=== PATIENT | female | born 1935 | race Caucasian/White ===

== ENCOUNTER 2020-10-17 11:12 | Inpatient (IN) | payer MEDICARE, OTHER ==
[~2020-10-17] VITALS: Ht 152.4 cm; Wt 65.8 kg
[2020-10-17] MEDS ORDERED: AFRIN NASAL SPR30 ML NASAL (11:20)
[2020-10-17] MEDS ORDERED: ASPIRIN81 MG ORAL (11:20)
[2020-10-17] MEDS ORDERED: COLACE100 MG ORAL (11:20)
--- NOTE | 2020-10-17 11:20 | Emergency Room Report ---
History of Present Illness General Chief Complaint: General Complaint Source: Medical Record, EMS Present Illness HPI Disclaimer: Please note that this report is being documented using DRAGON technology. This can lead to erroneous entry secondary to incorrect interpretation by the dictating instrument. HPI: 85-year-old Slovak speaking female history of NSTEMI, CHF, COVID-19 positive currently on 4 L oxygen, atrial fibrillation presents for bradycardia and anemia. Sent in by PMD. Reportedly had heart rate in the 50s at nursing facility. Tested Covid positive several weeks ago. Receiving antibiotics. Stable on 4 L oxygen. No apparent discomfort. There is report that the patient was anemic. 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 EOMI. Cardiovascular: Irregularly irregular rhythm. Normal heart rate Resp: Normal work of breathing. No cough, wheezing or crackles appreciated Abdomen: Abdomen is soft, nondistended. Nontender Skin: Intact. No abrasions, laceration or rash over the exposed skin MSK: Normal tone and bulk. Moving all extremities. No obvious deformity. Neuro: Awake and alert. Mentating appropriately. Procedures Critical Care Time Critical Care Time Total critical care time: Approximately 45 minutes Due to a high probability of clinically significant, life threatening deterio ration, the patient required the highest level of preparedness to intervene emergently and I personally spent this critical care time directly and personally managing the patient. This critical care time included obtaining a history, examining the patient, pulse oximetry, ordering and reviewing studies, ordering treatments, evaluating response to treatment and updating management p stacie as needed, frequent reassessment and discussion with other providers as well as arranging for ultimate disposition. This critical to care time was performed to assess and manage the high probability of life-threatening deterioration that could result in multiorgan failure. This critical care time is separate from the separately billable procedures and treating other patients. Medical Decision Making Diagnostic Impression: Primary Impression: Anemia Additional Impressions: Atrial fibrillation Elevated troponin Hyperkalemia Acute kidney injury ER Course Is an 85-year-old female from nursing facility recently COVID-19 positive with history of atrial fibrillation, COPD, CHF, hypertension presenting for bradycardia and reported anemia. Arrives in stable condition. Heart rate is in fact elevated mildly not bradycardic. EKG shows atrial fibrillation with long pauses. Chest x-ray shows cardiomegaly and signs of vascular congestion either atelectasis or early infiltrate in the lower lobes according to radiology interpretation. Patient was positive for COVID-19 and already receiving antibiotics. Potassium slightly elevated, renal function reduced but unknown baseline. Troponin elevated. Patient given aspirin, calcium, insulin with dextrose. Will admit to PMD, Dr. Dumont. Laboratory Tests Test 10/17/20 13:10 White Blood Count 7.7 K/UL (4.8-10.8) Red Blood Count 2.73 M/UL (4.20-5.40) L Hemoglobin 8.1 G/DL (12.0-16.0) L Hematocrit 26.8 % (37.0-47.0) L Mean Corpuscular Volume 98 FL (80-99) Mean Corpuscular Hemoglobin 29.8 PG (27.0-31.0) Mean Corpuscular Hemoglobin Concent 30.4 G/DL (32.0-36.0) L Red Cell Distribution Width 18.6 % (11.6-14.8) H Platelet Count 143 K/UL (150-450) L Mean Platelet Volume 8.9 FL (6.5-10.1) Neutrophils (%) (Auto) % (45.0-75.0) Lymphocytes (%) (Auto) % (20.0-45.0) Monocytes (%) (Auto) % (1.0-10.0) Eosinophils (%) (Auto) % (0.0-3.0) Basophils (%) (Auto) % (0.0-2.0) Neutrophils % (Manual) Pending Lymphocytes % (Manual) Pending Platelet Estimate Pending Platelet Morphology Pending Prothrombin Time 11.7 SEC (9.30-11.50) H Prothrombin Time INR 1.1 (0.9-1.1) Activated Partial Thromboplast Time 28 SEC (23-33) Sodium Level 138 MMOL/L (136-145) Potassium Level 5.2 MMOL/L (3.5-5.1) H Chloride Level 101 MMOL/L (98-107) Carbon Dioxide Level 35 MMOL/L (21-32) H Anion Gap 2 mmol/L (5-15) L Blood Urea Nitrogen 41 mg/dL (7-18) H Creatinine 1.7 MG/DL (0.55-1.30) H Estimated Glomerular Filtration Rate 28.7 mL/min (>60) Glucose Level 89 MG/DL (74-106) Calcium Level 8.2 MG/DL (8.5-10.1) L Phosphorus Level 3.1 MG/DL (2.5-4.9) Magnesium Level 2.4 MG/DL (1.8-2.4) Total Bilirubin 1.0 MG/DL (0.2-1.0) Aspartate Amino Transferase (AST) 17 U/L (15-37) Alanine Aminotransferase (ALT) 11 U/L (12-78) L Alkaline Phosphatase 53 U/L (46-116) Troponin I 0.181 ng/mL (0.000-0.056) Total Protein 5.4 G/DL (6.4-8.2) L Albumin 2.3 G/DL (3.4-5.0) L Globulin 3.1 g/dL Albumin/Globulin Ratio 0.7 (1.0-2.7) L EKG Diagnostic Results Troponin ordered: Yes When was troponin ordered?: Oct 17, 2020 EKG Time: 11:18 Rate: normal Rhythm: NSR ST Segments: no acute changes Other Impression Irregularly irregular rhythm consistent with atrial fibrillation. Long pauses noted. Rhythm Strip Diag. Results Rhythm Strip Time: 11:18 EP Interpretation: yes Rate: 100 Rhythm: NSR, no PVC's, no ectopy Chest X-Ray Diagnostic Results Chest X-Ray Diagnostic Results : Chest X-Ray Ordered: Yes # of Views/Limited/Complete: 1 View Indication: Other - Bradycardia EP Interpretation: Yes Interpretation: no consolidation, no pneumothorax, other - Cardiomegaly, vascular congestion Impression: Other - Cardiomegaly Electronically Signed by: Electronically signed by Dr. Harrison Boykin MD Last Vital Signs Date Time Temp Pulse Resp B/P (MAP) Pulse Ox O2 Delivery O2 Flow Rate FiO2 10/17/20 11:05 98.1 57 18 118/78 (91) 98 Nasal Cannula 2.0 Disposition: ADMITTED INPATIENT Condition: Serious Harrison Boykin MD Oct 17, 2020 11:20
[2020-10-17] MEDS ORDERED: FUROSEMIDE20 M1 ORAL (11:25)
[2020-10-17] MEDS ORDERED: FAMOTIDINE20 MG ORAL (11:25)
[2020-10-17] MEDS ORDERED: LOVENOX10 MG SUBQ (11:25)
[2020-10-17] MEDS ORDERED: NIACIN500 M3 PO (11:25)
[2020-10-17] MEDS ORDERED: FLUCONAZOLE100 MG ORAL (11:25)
[2020-10-17] MEDS ORDERED: FERROUS SULFAT325 MG ORAL (11:25)
[2020-10-17] MEDS ORDERED: COREG25 MG ORAL (11:25)
[2020-10-17] MEDS ORDERED: ACTOS45 MG ORAL (11:29)
[2020-10-17] MEDS ORDERED: VIBRAMYCIN100 MG ORAL (11:29)
[2020-10-17] MEDS ORDERED: DIOVAN HCT 80MG1 TAB ORAL (11:29)
[2020-10-17] MEDS ORDERED: VANCOMYCIN750 MG/150 IV (11:29)
[2020-10-17] MEDS ORDERED: ACETAMINOPHEN325 M1 ORAL (11:29)
[2020-10-17 11:37] VITALS: BP 103/49
--- NOTE | 2020-10-17 12:08 | NUR ---
pt arrived from snf, covid +, for bradycardia. pt placed on continuous cardiac/O2 monitor. IV placed. unable to draw blood. phlebotomy notified. lab attemtped to draw blood. unsuccessful 3 attempts. RN went in to draw labs. pt abusive, hitting RN. refusal to keep mask on in room.
--- NOTE | 2020-10-17 12:38 | Diagnostic Imaging Report ---
EXAM: XR Chest, 1 View CLINICAL HISTORY: Shortness of breath TECHNIQUE: Frontal view of the chest. COMPARISON: No relevant prior studies available. FINDINGS: Lungs: Subsegmental atelectasis versus infiltrate in the left lung base. Pulmonary vascular congestion. Pleural space: Small left pleural effusion. Heart: Cardiomegaly. Mediastinum: Unremarkable. Bones/joints: Multilevel degenerative disc space loss and endplate osteophytes throughout the visualized spine. Vasculature: Atherosclerotic calcifications within the aortic arch. Tubes, lines and devices: Telemetry leads overlie the thorax. IMPRESSION: 1. Findings suggest mild CHF, with cardiomegaly, pulmonary vascular congestion, and a small left pleural effusion. 2. Subsegmental atelectasis versus infiltrate in the left lung base.
[2020-10-17 13:17] VITALS: BP 107/56
--- NOTE | 2020-10-17 13:17 | NUR ---
pt refusing to keep nasal cannula on face. pt refusing to wear mask. MD gianluca FIELDS. blood drawn. sent to lab
[2020-10-17 13:24] LABS: HEMATOCRIT 26.8 % (37.0-47.0); HEMOGLOBIN 8.1 G/DL (12.0-16.0); MEAN CORPUSCULAR VOLUME 98 FL (80-99); PLATELET COUNT 143 K/UL (150-450); RED BLOOD COUNT 2.73 M/UL (4.20-5.40); RED CELL DISTRIBUTION WIDTH 18.6 % (11.6-14.8); WHITE BLOOD COUNT 7.7 K/UL (4.8-10.8)
[2020-10-17 13:34] LABS: CALCIUM 8.2 MG/DL (8.5-10.1); CREATININE 1.7 MG/DL (0.55-1.30); POTASSIUM 5.2 MMOL/L (3.5-5.1)
[2020-10-17 13:38] LABS: ALBUMIN 2.3 G/DL (3.4-5.0); ALBUMIN/GLOBULIN RATIO 0.7 (1.0-2.7); INR 1.1 (0.9-1.1); PHOSPHORUS 3.1 MG/DL (2.5-4.9)
[2020-10-17] MEDS ORDERED: Aspirin Baby 81mg ORAL ONE (14:15)
[2020-10-17] MEDS ORDERED: Calcium Gluconate 1gm/10ml vial IVP ONE (14:15)
[2020-10-17] MEDS ORDERED: Insulin Human Regular 100units/ml 3ml IV ONE (14:15)
--- NOTE | 2020-10-17 15:31 | NUR ---
Prasanna lewis in ED - 10/17/20 at 1532 by BERENICE MRSA/VRE/COVID swab sent. called report to SERGIO Knight.
--- NOTE | 2020-10-17 16:30 | NUR ---
NURSE NOTES: pt arrived to unit in good condition V/S. 97.5, bp120/50 hr 80 R20 o2 100 on 4L NC. retested Bs because she had received insulin in ED BS was 70 tried to feed pt juice hot tea, apple sauce regular food pt kept spitting food out.
--- NOTE | 2020-10-17 16:36 | NUR ---
ED Nurse Note: called report to RN for 220
--- NOTE | 2020-10-17 16:37 | NUR ---
ED Nurse Note: pt has pink on coccyx area. picture taken. uploaded to pt profile.
[2020-10-17 16:39] VITALS: BP 111/54
--- NOTE | 2020-10-17 16:42 | NUR ---
mrsa vre swab snet. med rec done
--- NOTE | 2020-10-17 16:51 | NUR ---
report to jabier caba.
[2020-10-17] MEDS ORDERED: Acetaminophen 500mg (ES) tab ORAL PRN (18:00)
[2020-10-17] MEDS: D5 1/2NS 1,000 ML IV SCH (19:03)
--- NOTE | 2020-10-17 19:13 | Consultation ---
Consult Note Consult Note asked to eval at the request of Dr Arango for renal failure and fluid and electrolyte management HPI: 85-year-old Kuwaiti speaking female history of NSTEMI, CHF, COVID-19 positive currently on 4 L oxygen, atrial fibrillation presents for bradycardia and anemia. Sent in by PMD. Reportedly had heart rate in the 50s at nursing facility. Tested Covid positive several weeks ago. Receiving antibiotics. Stable on 4 L oxygen. No apparent discomfort. There is report that the patient was anemic. 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 GENERAL APPEARANCE: Seems to be well developed. HEAD AND NECK: Has dry mouth. HEART: Normal rate. Irregular rhythm LUNGS: Clear. Decreased breath sound over the bases ABDOMEN: Soft. EXTREMITIES: Has trace edema of legs. LABORATORY AND DIAGNOSTIC DATA: WBC 6.5, hemoglobin 9.7, hematocrit 31.9, and platelets is 134. Sodium 137, potassium 4.8, chloride 102, bicarb 36, BUN 41, creatinine 2, glucose 103. BNP more than 35,000. Troponin was elevated at 0.218. Chest x-ray, mild CHF, cardiomegaly, pulmonary vascular congestion, atelectasis versus infiltrate in left lung base. 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 . Assessment/Plan Acute kidney injury Elevated troponin Hyperkalemia Anemia Atrial fibrillation Monitor renal parameters Slow hydration Continue per cardiology Anemia work-up Monitor electrolytes Per orders Dustin Gómez MD Oct 17, 2020 19:13
--- NOTE | 2020-10-17 19:30 | NUR ---
NURSE NOTES: Receive a report from SERGIO Killian. Round is made. Pt is awake but confused. No acute distress noted. No SOB/wheezing noted. O2 NC is not staying on her nares d/t taking out. On bed bound. IV is running via right upper arm fluid running as ordered. AM shift nurse will order for KURT mattress. Call light within reach. Will continue to monitor.
[2020-10-17 20:00] VITALS: BP 130/64
--- NOTE | 2020-10-17 20:00 | NUR ---
NURSE NOTES: Receive a call from lab that Troponin level is 0.218. Inform Dr. Reyes of lab result and EKG from ED.
--- NOTE | 2020-10-17 20:30 | NUR ---
NURSE HAND-OFF REPORT: Important Events on Shift:[]pt had hypoglycemic episode of B/S 69 gave one dose of dextrose B/s after 15min 107. pt on D1/2 ns at 50ml. Pt does not want to eat. Patient Status: []full Diet: []puree regular Pending Orders: []ekg, urine sample, Pending Results/Labs:[] Pending MD notification:[] Latest Vital Signs: Temperature 98.1 , Pulse 104 , B/P 111 /54 , Respiratory Rate 20 , O2 SAT 100 , Nasal Cannula, O2 Flow Rate 4.0 . Vital Sign Comment: [] EKG Rhythm: sinus with irregular rhythm Rhythm change?: MD Notified?: - MD Response: Latest Elizabeth Fall Score: Fall Risk: Y Safety Measures: Call light , Bed Alarm , Side Rails , Bed position . Fall Precautions: Y Report given to []. OH/RN
--- NOTE | 2020-10-17 21:15 | NUR ---
NURSE NOTES: Notify Dr. Dumont for pt's bladder incontinent and In and out straight catheterization to collect for urine labs including elevated Troponin level. Receive to place rothman catheterization. Order noted and carried out.
--- NOTE | 2020-10-17 21:23 | NUR ---
NURSE HAND-OFF REPORT: Important Events on Shift:[]pt not eating , npo, on d5 1/2 ns at 50ml Patient Status: [] Diet: [] Pending Orders: [] Pending Results/Labs:[] Pending MD notification:[] Latest Vital Signs: Temperature 97.9 , Pulse 77 , B/P 130 /64 , Respiratory Rate 20 , O2 SAT 98 , Nasal Cannula, O2 Flow Rate 4.0 . Vital Sign Comment: [] EKG Rhythm: sinus with irregular rhythm Rhythm change?: MD Notified?: - MD Response: Latest Elizabeth Fall Score: 70 Fall Risk: High Risk Safety Measures: Call light Within Reach, Bed Alarm Zone 2, Side Rails Side Rails x2, Bed position Low and Locked. Fall Precautions: Yellow Socks Yellow Gown Door Sign Patient Fall Education Report given to [].
--- NOTE | 2020-10-17 21:25 | NUR ---
NURSE HAND-OFF REPORT: Important Events on Shift:[]npo , running d5ns @50ml/hr, pt has wounds Patient Status: []full Diet: []npo Pending Orders: [] lot fo labs pending for am 10/18 Pending Results/Labs:[] Pending MD notification:[] Latest Vital Signs: Temperature 97.9 , Pulse 77 , B/P 130 /64 , Respiratory Rate 20 , O2 SAT 98 , Nasal Cannula, O2 Flow Rate 4.0 . Vital Sign Comment: [] EKG Rhythm: sinus with irregular rhythm Rhythm change?: MD Notified?: - MD Response: Latest Elizabeth Fall Score: 70 Fall Risk: High Risk Safety Measures: Call light Within Reach, Bed Alarm Zone 2, Side Rails Side Rails x2, Bed position Low and Locked. Fall Precautions: y Yellow Socks y Yellow Gown y Door Sign y Patient Fall Education Report given to []. OH/RN
--- NOTE | 2020-10-17 23:55 | NUR ---
NURSE NOTES: Receive an order from Dr. Reyes for Troponin lab in the morning. Order has been placed. Will carried out and monitor.
[2020-10-18] VITALS: BP 130/85
[2020-10-18 00:17] LABS: APPEARANCE,URINE VERY CLOUDY; BILIRUBIN, URINE NEGATIVE (NEGATIVE); COLOR,URINE YELLOW; GLUCOSE, URINE (UA) NEGATIVE (NEGATIVE); KETONES,URINE NEGATIVE (NEGATIVE); LEUKOCYTE ESTERASE ,URINE 3+ (NEGATIVE); NITRITE,URINE NEGATIVE (NEGATIVE); PH,URINE 5 (4.5-8.0); PROTEIN,URINE 2+ (NEGATIVE); UROBILINOGEN,URINE NORMAL MG/DL (0.0-1.0)
[2020-10-18 04:00] VITALS: BP 97/53
--- NOTE | 2020-10-18 06:35 | Consultation ---
History of Present Illness General Chief Complaint: General Complaint Present Illness Allergies: Coded Allergies: No Known Allergies (Unverified , 10/17/20) Medication History Scheduled Aspirin* (Aspirin*), 81 MG ORAL DAILY, (Reported) Carvedilol (Coreg), 25 MG ORAL EVERY 12 HOURS, (Reported) Docusate Sodium* (Colace*), 100 MG ORAL DAILY, (Reported) Doxycycline Hyclate* (Vibramycin*), 100 MG ORAL EVERY 12 HOURS, (Reported) Enoxaparin* (Lovenox*), 30 MG SUBQ DAILY, (Reported) Famotidine* (Pepcid 20mg tablet*), 20 MG ORAL DAILY, (Reported) Ferrous Sulfate* (Ferrous Sulfate*), 325 MG ORAL DAILY, (Reported) Fluconazole (Fluconazole), 100 MG ORAL DAILY, (Reported) Furosemide* (Lasix*), 20 MG ORAL DAILY, (Reported) Oxymetazoline HCl (Afrin), 2 SPRAY NASAL EVERY 8 HOURS, (Reported) Pioglitazone Hcl* (Actos*), 45 MG ORAL DAILY, (Reported) Valsartan (Diovan), 1 TAB ORAL DAILY, (Reported) Scheduled PRN Acetaminophen* (Acetaminophen 325MG Tablet*), 650 MG ORAL Q4H PRN for Pain Scale (6-10), (Reported) Miscellaneous Medications Niacin (Niacin), 500 MG PO, (Reported) Vancomycin In Dextrose,Iso-Osm (Vancomycin 750 Mg/150 Ml Bag), 1,000 MG IV, (Reported) Patient History Healthcare decision maker Resuscitation status Advanced Directive on File Physical Exam Last 24 Hour Vital Signs Date Time Temp Pulse Resp B/P (MAP) Pulse Ox O2 Delivery O2 Flow Rate FiO2 10/18/20 04:00 97.9 69 18 97/53 (68) 99 10/18/20 04:00 67 10/18/20 00:00 97.9 66 20 130/85 (100) 98 10/18/20 00:00 79 10/17/20 21:00 Nasal Cannula 4.0 10/17/20 20:00 84 10/17/20 20:00 97.9 77 20 130/64 (86) 98 10/17/20 18:12 Nasal Cannula 4.0 10/17/20 17:03 98.1 104 20 111/54 100 Nasal Cannula 4.0 100 10/17/20 16:39 104 20 111/54 100 Nasal Cannula 4.0 10/17/20 15:33 86 25 97 Nasal Cannula 4.0 10/17/20 13:17 106 18 107/56 97 Nasal Cannula 4.0 10/17/20 11:37 98 28 103/49 100 Nasal Cannula 4.0 10/17/20 11:37 83 25 Nasal Cannula 4.0 100 10/17/20 11:05 98.1 57 18 118/78 (91) 98 Nasal Cannula 2.0 Intake and Output 10/17/20 10/18/20 19:00 07:00 Intake Total 50 ml 100 ml Output Total 100 ml Balance 50 ml 0 ml Intake Oral 50 ml IV Total 100 ml Output Urine Total 100 ml Laboratory Tests Test 10/17/20 13:10 10/17/20 16:39 10/17/20 17:24 10/17/20 18:20 White Blood Count 7.7 K/UL (4.8-10.8) Red Blood Count 2.73 M/UL (4.20-5.40) L Hemoglobin 8.1 G/DL (12.0-16.0) L Hematocrit 26.8 % (37.0-47.0) L Mean Corpuscular Volume 98 FL (80-99) Mean Corpuscular Hemoglobin 29.8 PG (27.0-31.0) Mean Corpuscular Hemoglobin Concent 30.4 G/DL (32.0-36.0) L Red Cell Distribution Width 18.6 % (11.6-14.8) H Platelet Count 143 K/UL (150-450) L Mean Platelet Volume 8.9 FL (6.5-10.1) Neutrophils (%) (Auto) % (45.0-75.0) Lymphocytes (%) (Auto) % (20.0-45.0) Monocytes (%) (Auto) % (1.0-10.0) Eosinophils (%) (Auto) % (0.0-3.0) Basophils (%) (Auto) % (0.0-2.0) Differential Total Cells Counted 100 Neutrophils % (Manual) 84 % (45-75) H Lymphocytes % (Manual) 12 % (20-45) L Monocytes % (Manual) 2 % (1-10) Eosinophils % (Manual) 0 % (0-3) Basophils % (Manual) 0 % (0-2) Band Neutrophils 2 % (0-8) Platelet Estimate Decreased L Platelet Morphology Normal Hypochromasia 1+ Anisocytosis 1+ Prothrombin Time 11.7 SEC (9.30-11.50) H Prothromb Time International Ratio 1.1 (0.9-1.1) Activated Partial Thromboplast Time 28 SEC (23-33) Sodium Level 138 MMOL/L (136-145) Potassium Level 5.2 MMOL/L (3.5-5.1) H Chloride Level 101 MMOL/L (98-107) Carbon Dioxide Level 35 MMOL/L (21-32) H Anion Gap 2 mmol/L (5-15) L Blood Urea Nitrogen 41 mg/dL (7-18) H Creatinine 1.7 MG/DL (0.55-1.30) H Estimat Glomerular Filtration Rate 28.7 mL/min (>60) Glucose Level 89 MG/DL (74-106) Calcium Level 8.2 MG/DL (8.5-10.1) L Phosphorus Level 3.1 MG/DL (2.5-4.9) Magnesium Level 2.4 MG/DL (1.8-2.4) Total Bilirubin 1.0 MG/DL (0.2-1.0) Aspartate Amino Transf (AST/SGOT) 17 U/L (15-37) Alanine Aminotransferase (ALT/SGPT) 11 U/L (12-78) L Alkaline Phosphatase 53 U/L (46-116) Troponin I 0.181 ng/mL (0.000-0.056) Total Protein 5.4 G/DL (6.4-8.2) L Albumin 2.3 G/DL (3.4-5.0) L Globulin 3.1 g/dL Albumin/Globulin Ratio 0.7 (1.0-2.7) L POC Whole Blood Glucose 92 MG/DL (74-106) Pending Pending Test 10/17/20 19:06 10/17/20 19:15 10/17/20 21:58 10/17/20 23:00 POC Whole Blood Glucose Pending 107 MG/DL (74-106) H Troponin I 0.218 ng/mL (0.000-0.056) Urine Color Yellow Urine Appearance Very cloudy Urine pH 5 (4.5-8.0) Urine Specific [place] 1.015 (1.005-1.035) Urine Protein 2+ (NEGATIVE) H Urine Glucose (UA) Negative (NEGATIVE) Urine Ketones Negative (NEGATIVE) Urine Blood 4+ (NEGATIVE) H Urine Nitrite Negative (NEGATIVE) Urine Bilirubin Negative (NEGATIVE) Urine Urobilinogen Normal MG/DL (0.0-1.0) Urine Leukocyte Esterase 3+ (NEGATIVE) H Urine RBC 40-60 /HPF (0 - 2) H Urine WBC Tntc /HPF (0 - 2) H Urine Squamous Epithelial Cells Moderate /LPF (NONE/OCC) H Urine Amorphous Sediment Moderate /LPF (NONE) H Urine Bacteria Many /HPF (NONE) H Urine Yeast Moderate /HPF (NONE) H Urine Random Sodium 18 mmol/L (20-110) L Microbiology Date/Time Source Procedure Growth Status 10/17/20 23:00 Urine,Clean Catch Urine Culture - Preliminary NO GROWTH Resulted Height (Feet): 5 Weight (Pounds): 145 Medications Current Medications Medications (Trade) Dose Ordered Sig/Yolanda Route PRN Reason Start Time Stop Time Status Last Admin Dose Admin Acetaminophen (Tylenol) 500 mg Q6HR PRN ORAL Mild Pain 1-3 10/17/20 17:45 11/16/20 17:44 Acetaminophen (Tylenol) 500 mg Q6HR PRN ORAL fever >100 10/17/20 18:00 11/16/20 17:59 Acetaminophen (Tylenol) 650 mg Q4H PRN ORAL Pain Scale (6-10) 10/17/20 19:15 11/16/20 19:14 Chlorhexidine Gluconate (Eve-Hex 2%) 1 applic QHS TOPIC 10/18/20 20:00 01/16/21 19:59 Dextrose/Sodium Chloride 1,000 ml @ 50 mls/hr Q20H IV 10/17/20 18:45 11/16/20 18:44 10/17/20 19:03 Docusate Sodium (Colace) 100 mg TID ORAL 10/18/20 09:00 11/17/20 08:59 Famotidine (Pepcid) 20 mg DAILY ORAL 10/18/20 09:00 01/16/21 08:59 Ondansetron HCl (Zofran) 4 mg Q6H PRN IVP Nausea & Vomiting 10/17/20 21:15 11/16/20 21:14 Assessment/Plan Assessment/Plan: Hematology Consultation REQ : Neri Arango RFC: Anemia eval HPI: 85-year-old Cook Islander speaking female history of NSTEMI, CHF, COVID-19 positive currently on 4 L oxygen, atrial fibrillation presents for bradycardia and anemia. Sent in by PMD. Reportedly had heart rate in the 50s at nursing facility. Tested Covid positive several weeks ago. Receiving antibiotics. Stable on 4 L oxygen. No apparent discomfort. There is report that the patient was anemic. 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 EOMI. Cardiovascular: Irregularly irregular rhythm. Normal heart rate Resp: Normal work of breathing. No cough, wheezing or crackles appreciated Abdomen: Abdomen is soft, nondistended. Nontender Skin: Intact. No abrasions, laceration or rash over the exposed skin MSK: Normal tone and bulk. Moving all extremities. No obvious deformity. Neuro: Awake and alert. Mentating appropriately. Labs: noted Imaging: reviewed Assessment and recs # Anemia r/o gi bleed --> anemia panel has been ordered --> hgb 8.1 --> no hemolysis is noted --> transfuse on prn basis # Hypercoag disorder with Atrial fibrillation --> consider anticoag as per cards --> if bleeding, consider hold anticoag # Elevated trop --> per cards # Hyperkalemia --> per renal # Acute kidney injury --> per renal # Recently COVID-19 positive # Dvt ppx scds Appreciate consultation and dw Hawk Hayward MD Oct 18, 2020 06:35
--- NOTE | 2020-10-18 06:49 | NUR ---
NURSE HAND-OFF REPORT: Important Events on Shift: Insertion rothman catheter. No acute distress noted. Patient Status: [] Diet: [NPO] Pending Orders: [stool OB] Pending Results/Labs:[] Pending MD notification:[low urine output] Latest Vital Signs: Temperature 97.9 , Pulse 69 , B/P 97 /53 , Respiratory Rate 18 , O2 SAT 99 , Nasal Cannula, O2 Flow Rate 4.0 . Vital Sign Comment: [] EKG Rhythm: A-f and A-F Rhythm change?: N MD Notified?: - MD Response: Latest Elizabeth Fall Score: 70 Fall Risk: High Risk Safety Measures: Call light Within Reach, Bed Alarm Zone 1, Side Rails Side Rails x3, Bed position Low and Locked. Fall Precautions: Yellow Socks Patient Fall Education
--- NOTE | 2020-10-18 07:30 | NUR ---
NURSE NOTES: Given report to SERGIO Killian. Round is made.
[2020-10-18 08:00] VITALS: BP 106/39
--- NOTE | 2020-10-18 08:11 | NUR ---
NURSE NOTES: pt confused AOx1, resting in bed, opens eyes when you talk to her. Pt on cafeteria monitor no signs of cardia or respiratory distress. Pt urinary output is very low 100ml after Green was placed yesterday. Pt BS 93 this morning. Blood pressure is low see am VS. Bed locked and in lowest position. Call light within reach. Will continue to monitor. Pt is NPO now.
[2020-10-18 08:29] LABS: HEMATOCRIT 24.1 % (37.0-47.0); HEMOGLOBIN 7.3 G/DL (12.0-16.0); MEAN CORPUSCULAR VOLUME 99 FL (80-99); PLATELET COUNT 124 K/UL (150-450); RED BLOOD COUNT 2.44 M/UL (4.20-5.40); RED CELL DISTRIBUTION WIDTH 18.6 % (11.6-14.8); WHITE BLOOD COUNT 4.9 K/UL (4.8-10.8)
--- NOTE | 2020-10-18 08:44 | Consultation ---
DATE OF CONSULTATION: 10/18/2020 PULMONARY CONSULTATION HISTORY OF PRESENT ILLNESS: This is an 85-year-old female with history of CAD, CHF who was sent in by primary care physician because of bradycardia. The patient is known to be COVID positive, however, she is saturating well on nasal oxygen. She tested COVID positive about two weeks ago. The patient was bradycardic in the ER and admitted to the hospital for subsequent management and care. MEDICATIONS: List of medications at this time include Pepcid, Zofran, and currently she is on IV fluids. PAST MEDICAL HISTORY: Notable for CHF, CAD, previous non-STEMI, COPD, atrial fibrillation, recent COVID-19 pneumonia. REVIEW OF SYSTEMS: Not reliable. PAST SURGICAL HISTORY: None reported. Code status full. PHYSICAL EXAMINATION: GENERAL: Reveals a 85-year-old female. VITAL SIGNS: Blood pressure is 130/80, heart rate 66, respirations are 20, O2 saturation 98% on 4 liters of oxygen. HEENT: Unremarkable. LUNGS: Clear breath sounds bilaterally. ABDOMEN: Soft. EXTREMITIES: There is no edema. NEUROLOGIC: Nonfocal. LABORATORY DATA: Lab testing shows hemoglobin 8.1. Troponin 0.21, previously was 0.18. Creatinine 1.7, potassium 5.2. Albumin is 2.3. Urinalysis shows too numerous to count wbc's. IMAGING STUDIES: X-ray chest was obtained, which showed evidence for mild CHF and atelectasis. IMPRESSION: 1. CHF, mild. 2. CAD/previous non-STEMI. 3. long term resident. 4. Bradycardia. 5. Atrial fibrillation. 6. Renal insufficiency. 7. Troponin leak. 8. COVID pneumonia. 9. Hypoxemia. DISCUSSION: Agree with admission and care. Currently, she is hypoxemic, however, she tested positive for COVID-19 more than two weeks ago. We will hold off any specific therapies. I will start her on Lovenox subcutaneous for DVT prophylaxis. Cardiac care per Cardiology. Consider transfusion, defer to Hematology. Renal function abnormal abnormalities noted. Nephrology is following. We will provide oxygen as needed. Carlos Woods M.D. DR: Luis Armando JOB#: [id number] CC:
[2020-10-18] MEDS: Enoxaparin 40mg Inj SUBQ SCH (09:00)
[2020-10-18 09:02] LABS: CREATINE KINASE 22 U/L (26-308); GAMMA GLUTAMYL TRANSPEPTIDASE 19 U/L (5-85); PHOSPHORUS 3.5 MG/DL (2.5-4.9)
[2020-10-18 09:09] LABS: ALANINE AMINOTRANSFERASE 10 U/L (12-78); ALBUMIN/GLOBULIN RATIO 0.7 (1.0-2.7); ALKALINE PHOSPHATASE 45 U/L (46-116); ASPARTATE AMINO TRANSFERASE 14 U/L (15-37); BILIRUBIN,TOTAL 0.7 MG/DL (0.2-1.0); BLOOD UREA NITROGEN 41 mg/dL (7-18); CARBON DIOXIDE 36 MMOL/L (21-32); CHLORIDE 102 MMOL/L (98-107); CHOLESTEROL 98 MG/DL (< 200); FERRITIN 166 NG/ML (8-388); HDL CHOLESTEROL 36 MG/DL (40-60); POTASSIUM 4.8 MMOL/L (3.5-5.1); SODIUM 137 MMOL/L (136-145); TRIGLYCERIDES 102 MG/DL (30-150)
[2020-10-18 09:44] LABS: % IRON SATURATION 25 % (15-50); IRON 40 ug/dL (50-175); TOTAL IRON BINDING CAPACITY 160 ug/dL (250-450)
[2020-10-18] MEDS: Docusate 100mg cap ORAL SCH ×3 (10:16→18:00)
[2020-10-18 12:00] VITALS: BP 89/38
--- NOTE | 2020-10-18 13:00 | Consultation ---
History of Present Illness General Date patient seen: Oct 18, 2020 Reason for Hospitalization: General Complaint Present Illness HPI HPI: 85-year-old Thai speaking female history of NSTEMI, CHF, COVID-19 positive currently on 4 L oxygen, atrial fibrillation presents for bradycardia and anemia. Sent in by PMD. Reportedly had heart rate in the 50s at nursing facility. Tested Covid positive several weeks ago. Receiving antibiotics. Stable on 4 L oxygen. No apparent discomfort. There is report that the patient was anemic. No recent labs in the documentation that is provided by EMS. On admission identified to have decubitus ulcers malnutrition abnormal labs surgery called to eval and assist with care. Imaging reviewed labs reviewed exam performed. Care plan initiated. PMH: COPD, atrial fibrillation, heart disease, CHF, COVID-19 PSH: Unable to obtain from patient Allergies: None listed in chart Social Hx: Unable to obtain from patient Allergies: Coded Allergies: No Known Allergies (Unverified , 10/17/20) COVID-19 Screening Contact w/high risk pt: Yes Experienced COVID-19 symptoms?: Yes Coronavirus symptoms experienc: Shortness of Breath, Nausea/Vomiting Medication History Scheduled Aspirin* (Aspirin*), 81 MG ORAL DAILY, (Reported) Carvedilol (Coreg), 25 MG ORAL EVERY 12 HOURS, (Reported) Docusate Sodium* (Colace*), 100 MG ORAL DAILY, (Reported) Doxycycline Hyclate* (Vibramycin*), 100 MG ORAL EVERY 12 HOURS, (Reported) Enoxaparin* (Lovenox*), 30 MG SUBQ DAILY, (Reported) Famotidine* (Pepcid 20mg tablet*), 20 MG ORAL DAILY, (Reported) Ferrous Sulfate* (Ferrous Sulfate*), 325 MG ORAL DAILY, (Reported) Fluconazole (Fluconazole), 100 MG ORAL DAILY, (Reported) Furosemide* (Lasix*), 20 MG ORAL DAILY, (Reported) Oxymetazoline HCl (Afrin), 2 SPRAY NASAL EVERY 8 HOURS, (Reported) Pioglitazone Hcl* (Actos*), 45 MG ORAL DAILY, (Reported) Valsartan (Diovan), 1 TAB ORAL DAILY, (Reported) Scheduled PRN Acetaminophen* (Acetaminophen 325MG Tablet*), 650 MG ORAL Q4H PRN for Pain Scale (6-10), (Reported) Miscellaneous Medications Niacin (Niacin), 500 MG PO, (Reported) Vancomycin In Dextrose,Iso-Osm (Vancomycin 750 Mg/150 Ml Bag), 1,000 MG IV, (Reported) Patient History Limited by: medical condition History Provided By: Medical Record, PMD Healthcare decision maker Resuscitation status Advanced Directive on File Past Medical/Surgical History Past Medical/Surgical History: (1) Anemia (2) Acute kidney injury (3) Atrial fibrillation (4) Hyperkalemia (5) Elevated troponin Review of Systems Review of Symptoms General ROS: no weight loss or fever Psychological ROS: no depression or mood changes, no memory loss Ophthalmic ROS: no visual changes or eye irritation ENT ROS: no nasal congestion, hearing loss, dizziness Allergy and Immunology ROS: no allergic symptoms or urticaria Hematological and Lymphatic ROS: no swollen glands, unusual bleeding or bruising Endocrine ROS: no polyuria, polydipsia, weight changes, temperature intolerance Respiratory ROS: no cough, shortness of breath, or wheezing Cardiovascular ROS: no chest pain or dyspnea on exertion Gastrointestinal ROS: denies abdominal pain, bright red blood in stool. Musculoskeletal ROS: no myalgias or arthralgias Neurological ROS: no TIA or stroke symptoms Dermatological ROS: no new or changing skin lesions, rashes or pruritis limited given medical condition Physical Exam Physical Exam General appearance: no distress, appears stated age Head: Normocephalic, without obvious abnormality, atraumatic Eyes: conjunctivae/corneas clear. PERRL, EOM's intact. Fundi benign Throat: Lips, mucosa, and tongue normal. Teeth and gums normal Neck: supple, symmetrical, trachea midline, no adenopathy, thyroid: not enlarged, symmetric, no tenderness/mass/nodules, no carotid bruit and no JVD Lungs: clear to auscultation bilaterally Heart: regular rate and rhythm, S1, S2 normal, no murmur, click, rub or gallop Abdomen: soft, non-tender. Bowel sounds normal. No masses, no organomegaly Extremities: extremities normal, atraumatic, no cyanosis or edema Pulses: 2+ and symmetric Skin: Skin see below Neurologic: Grossly normal Last 24 Hour Vital Signs Date Time Temp Pulse Resp B/P (MAP) Pulse Ox O2 Delivery O2 Flow Rate FiO2 10/18/20 08:00 69 10/18/20 04:00 97.9 69 18 97/53 (68) 99 2/21/21 04:00 67 10/18/20 00:00 97.9 66 20 130/85 (100) 98 10/18/20 00:00 79 10/17/20 21:00 Nasal Cannula 4.0 10/17/20 20:00 84 10/17/20 20:00 97.9 77 20 130/64 (86) 98 10/17/20 18:12 Nasal Cannula 4.0 10/17/20 17:03 98.1 104 20 111/54 100 Nasal Cannula 4.0 100 10/17/20 16:39 104 20 111/54 100 Nasal Cannula 4.0 10/17/20 15:33 86 25 97 Nasal Cannula 4.0 10/17/20 13:17 106 18 107/56 97 Nasal Cannula 4.0 Intake and Output 10/17/20 10/18/20 19:00 07:00 Intake Total 50 ml 250 ml Output Total 100 ml Balance 50 ml 150 ml Intake Oral 50 ml IV Total 250 ml Output Urine Total 100 ml Laboratory Tests Test 10/17/20 13:10 10/17/20 16:39 10/17/20 17:24 10/17/20 18:20 White Blood Count 7.7 K/UL (4.8-10.8) Red Blood Count 2.73 M/UL (4.20-5.40) L Hemoglobin 8.1 G/DL (12.0-16.0) L Hematocrit 26.8 % (37.0-47.0) L Mean Corpuscular Volume 98 FL (80-99) Mean Corpuscular Hemoglobin 29.8 PG (27.0-31.0) Mean Corpuscular Hemoglobin Concent 30.4 G/DL (32.0-36.0) L Red Cell Distribution Width 18.6 % (11.6-14.8) H Platelet Count 143 K/UL (150-450) L Mean Platelet Volume 8.9 FL (6.5-10.1) Neutrophils (%) (Auto) % (45.0-75.0) Lymphocytes (%) (Auto) % (20.0-45.0) Monocytes (%) (Auto) % (1.0-10.0) Eosinophils (%) (Auto) % (0.0-3.0) Basophils (%) (Auto) % (0.0-2.0) Differential Total Cells Counted 100 Neutrophils % (Manual) 84 % (45-75) H Lymphocytes % (Manual) 12 % (20-45) L Monocytes % (Manual) 2 % (1-10) Eosinophils % (Manual) 0 % (0-3) Basophils % (Manual) 0 % (0-2) Band Neutrophils 2 % (0-8) Platelet Estimate Decreased L Platelet Morphology Normal Hypochromasia 1+ Anisocytosis 1+ Prothrombin Time 11.7 SEC (9.30-11.50) H Prothromb Time International Ratio 1.1 (0.9-1.1) Activated Partial Thromboplast Time 28 SEC (23-33) Sodium Level 138 MMOL/L (136-145) Potassium Level 5.2 MMOL/L (3.5-5.1) H Chloride Level 101 MMOL/L (98-107) Carbon Dioxide Level 35 MMOL/L (21-32) H Anion Gap 2 mmol/L (5-15) L Blood Urea Nitrogen 41 mg/dL (7-18) H Creatinine 1.7 MG/DL (0.55-1.30) H Estimat Glomerular Filtration Rate 28.7 mL/min (>60) Glucose Level 89 MG/DL (74-106) Calcium Level 8.2 MG/DL (8.5-10.1) L Phosphorus Level 3.1 MG/DL (2.5-4.9) Magnesium Level 2.4 MG/DL (1.8-2.4) Total Bilirubin 1.0 MG/DL (0.2-1.0) Aspartate Amino Transf (AST/SGOT) 17 U/L (15-37) Alanine Aminotransferase (ALT/SGPT) 11 U/L (12-78) L Alkaline Phosphatase 53 U/L (46-116) Troponin I 0.181 ng/mL (0.000-0.056) Total Protein 5.4 G/DL (6.4-8.2) L Albumin 2.3 G/DL (3.4-5.0) L Globulin 3.1 g/dL Albumin/Globulin Ratio 0.7 (1.0-2.7) L POC Whole Blood Glucose 92 MG/DL (74-106) Pending Pending Test 10/17/20 19:06 2/20/21 19:15 10/17/20 21:58 10/17/20 23:00 POC Whole Blood Glucose Pending 107 MG/DL (74-106) H Troponin I 0.218 ng/mL (0.000-0.056) Urine Color Yellow Urine Appearance Very cloudy Urine pH 5 (4.5-8.0) Urine Specific [place] 1.015 (1.005-1.035) Urine Protein 2+ (NEGATIVE) H Urine Glucose (UA) Negative (NEGATIVE) Urine Ketones Negative (NEGATIVE) Urine Blood 4+ (NEGATIVE) H Urine Nitrite Negative (NEGATIVE) Urine Bilirubin Negative (NEGATIVE) Urine Urobilinogen Normal MG/DL (0.0-1.0) Urine Leukocyte Esterase 3+ (NEGATIVE) H Urine RBC 40-60 /HPF (0 - 2) H Urine WBC Tntc /HPF (0 - 2) H Urine Squamous Epithelial Cells Moderate /LPF (NONE/OCC) H Urine Amorphous Sediment Moderate /LPF (NONE) H Urine Bacteria Many /HPF (NONE) H Urine Yeast Moderate /HPF (NONE) H Urine Random Sodium 18 mmol/L (20-110) L Test 10/18/20 07:40 White Blood Count 4.9 K/UL (4.8-10.8) Red Blood Count 2.44 M/UL (4.20-5.40) L Hemoglobin 7.3 G/DL (12.0-16.0) L Hematocrit 24.1 % (37.0-47.0) L Mean Corpuscular Volume 99 FL (80-99) Mean Corpuscular Hemoglobin 30.0 PG (27.0-31.0) Mean Corpuscular Hemoglobin Concent 30.3 G/DL (32.0-36.0) L Red Cell Distribution Width 18.6 % (11.6-14.8) H Platelet Count 124 K/UL (150-450) L Mean Platelet Volume 10.1 FL (6.5-10.1) Neutrophils (%) (Auto) % (45.0-75.0) Lymphocytes (%) (Auto) % (20.0-45.0) Monocytes (%) (Auto) % (1.0-10.0) Eosinophils (%) (Auto) % (0.0-3.0) Basophils (%) (Auto) % (0.0-2.0) Differential Total Cells Counted 100 Neutrophils % (Manual) 85 % (45-75) H Lymphocytes % (Manual) 9 % (20-45) L Monocytes % (Manual) 6 % (1-10) Eosinophils % (Manual) 0 % (0-3) Basophils % (Manual) 0 % (0-2) Band Neutrophils 0 % (0-8) Platelet Estimate Decreased L Platelet Morphology Normal Hypochromasia 1+ Anisocytosis 1+ Reticulocyte Count 2.5 % (0.5-2.0) H Sodium Level 137 MMOL/L (136-145) Potassium Level 4.8 MMOL/L (3.5-5.1) Chloride Level 102 MMOL/L (98-107) Carbon Dioxide Level 36 MMOL/L (21-32) H Blood Urea Nitrogen 41 mg/dL (7-18) H Creatinine 2.0 MG/DL (0.55-1.30) H Estimat Glomerular Filtration Rate 23.8 mL/min (>60) Glucose Level 103 MG/DL (74-106) Hemoglobin A1c 5.2 % (4.3-6.0) Lactic Acid Level 0.80 mmol/L (0.4-2.0) Uric Acid 8.7 MG/DL (2.6-7.2) H Calcium Level 8.0 MG/DL (8.5-10.1) L Phosphorus Level 3.5 MG/DL (2.5-4.9) Magnesium Level 2.8 MG/DL (1.8-2.4) H Iron Level 40 ug/dL (50-175) L Total Iron Binding Capacity 160 ug/dL (250-450) L Percent Iron Saturation 25 % (15-50) Unsaturated Iron Binding 120 ug/dL (112-346) Ferritin 166 NG/ML (8-388) Total Bilirubin 0.7 MG/DL (0.2-1.0) Gamma Glutamyl Transpeptidase 19 U/L (5-85) Aspartate Amino Transf (AST/SGOT) 14 U/L (15-37) L Alanine Aminotransferase (ALT/SGPT) 10 U/L (12-78) L Alkaline Phosphatase 45 U/L (46-116) L Lactate Dehydrogenase 217 U/L (135-225) Total Creatine Kinase 22 U/L (26-308) L Troponin I 0.194 ng/mL (0.000-0.056) C-Reactive Protein, Quantitative 4.7 mg/dL (0.00-0.90) H Pro-B-Type Natriuretic Peptide > 72686 pg/mL (0-125) H Total Protein 4.7 G/DL (6.4-8.2) L Albumin 2.0 G/DL (3.4-5.0) L Globulin 2.7 g/dL Albumin/Globulin Ratio 0.7 (1.0-2.7) L Triglycerides Level 102 MG/DL (30-150) Cholesterol Level 98 MG/DL (< 200) LDL Cholesterol 51 mg/dL (<100) HDL Cholesterol 36 MG/DL (40-60) L Cholesterol/HDL Ratio 2.7 (3.3-4.4) L Vitamin B12 Level 574 PG/ML (193-986) Folate 10.0 NG/ML (8.6-58.9) Thyroid Stimulating Hormone (TSH) 9.619 uiU/mL (0.358-3.740) Free Thyroxine 0.57 NG/DL (0.76-1.46) L Microbiology Date/Time Source Procedure Growth Status 10/17/20 23:00 Urine,Clean Catch Urine Culture - Preliminary NO GROWTH Resulted Height (Feet): 5 Weight (Pounds): 145 Medications Current Medications Medications (Trade) Dose Ordered Sig/Yolanda Route PRN Reason Start Time Stop Time Status Last Admin Dose Admin Acetaminophen (Tylenol) 500 mg Q6HR PRN ORAL Mild Pain 1-3 10/17/20 17:45 11/16/20 17:44 Acetaminophen (Tylenol) 500 mg Q6HR PRN ORAL fever >100 10/17/20 18:00 11/16/20 17:59 Acetaminophen (Tylenol) 650 mg Q4H PRN ORAL Pain Scale (6-10) 10/17/20 19:15 11/16/20 19:14 Chlorhexidine Gluconate (Eve-Hex 2%) 1 applic QHS TOPIC 10/18/20 20:00 01/16/21 19:59 Dextrose/Sodium Chloride 1,000 ml @ 50 mls/hr Q20H IV 10/17/20 18:45 11/16/20 18:44 10/17/20 19:03 Docusate Sodium (Colace) 100 mg TID ORAL 10/18/20 09:00 11/17/20 08:59 10/18/20 10:16 Enoxaparin Sodium (Lovenox) 40 mg DAILY SUBQ 10/18/20 09:00 01/16/21 08:59 Famotidine (Pepcid) 20 mg DAILY ORAL 10/18/20 09:00 01/16/21 08:59 10/18/20 10:16 Ondansetron HCl (Zofran) 4 mg Q6H PRN IVP Nausea & Vomiting 10/17/20 21:15 11/16/20 21:14 Assessment/Plan Problem List: (1) Anemia ICD Codes: D64.9 - Anemia, unspecified SNOMED: 509632267 (2) Acute kidney injury ICD Codes: N17.9 - Acute kidney failure, unspecified SNOMED: 34473548, 6364479 (3) Atrial fibrillation ICD Codes: I48.91 - Unspecified atrial fibrillation SNOMED: 66059281 (4) Hyperkalemia ICD Codes: E87.5 - Hyperkalemia SNOMED: 61766806, 871450451, 495541986 (5) Elevated troponin ICD Codes: R77.8 - Other specified abnormalities of plasma proteins SNOMED: 030552065, 117950383, 442739280 (6) Decubitus skin ulcer Assessment & Plan: Pt presented on admission with Multiple Medical Comorbidities including Covid-19 and Pressure Injuries. Primary Nurse reported Pt has been declining food and medications. Sacral DTPI that is evolving noted to Sacrum(L)6cm x (W)12.5cm.. Scattered Purpuric areas that are indurated noted to R and L cheek. Small wound that is 100% slough (L)0.6cm x (W)0.7cm noted at sacrococcygeal area within base of DTPI. MASD noted to Perineum and skin folds of Medial/posterior aspects of Both upper thighs. Affected areas are erythematous and macerated with scattered satellite lesions. DTPI L Heel (L)3cm x (W)4cm, Base of heel is maroon and fluctuant with small purpuric area (L)0.4cm x (W)0.9cm within base of DTPI. l Foot including toes are mottled and cool to touch. L Heel is boggy. L Heel including toes are Mottled and cool to touch. Tx.Plan: Apply Moisture Barrier Paste to Sacrum. Cover with Optifoam drsg.Change every 3 days and prn. Apply Moisture Barrier Paste to abdominal folds, Perineum and skin folds of both upper thighs. Apply [place] Skin Barrier to both heels. Cover each Heel with Optifoam drsg. Change every 7 days and prn. Reposition at least every 2hours or as tolerated. Off-load heels with pillow. ICD Codes: L89.90 - Pressure ulcer of unspecified site, unspecified stage SNOMED: 534857761 (7) Malnutrition ICD Codes: E46 - Unspecified protein-calorie malnutrition SNOMED: 52697148 Jim Orosco Oct 18, 2020 13:00
--- NOTE | 2020-10-18 13:44 | Nephrology Progress Note ---
Assessment/Plan Problem List: (1) Acute kidney injury (2) Anemia (3) Hyperkalemia (4) Elevated troponin (5) Pneumonia due to COVID-19 virus (6) Hypothyroidism Assessment Plan October 18: Patient hypotensive. Due for blood transfusion. Will give albumin bolus. Continue to monitor renal parameters and electrolytes. Labs and medication list reviewed Subjective ROS Limited/Unobtainable: Yes Constitutional: Reports: malaise, weakness Objective Objective Last 24 Hour Vital Signs Date Time Temp Pulse Resp B/P (MAP) Pulse Ox O2 Delivery O2 Flow Rate FiO2 10/18/20 08:00 69 10/18/20 04:00 97.9 69 18 97/53 (68) 99 10/18/20 04:00 67 10/18/20 00:00 97.9 66 20 130/85 (100) 98 10/18/20 00:00 79 10/17/20 21:00 Nasal Cannula 4.0 10/17/20 20:00 84 10/17/20 20:00 97.9 77 20 130/64 (86) 98 10/17/20 18:12 Nasal Cannula 4.0 10/17/20 17:03 98.1 104 20 111/54 100 Nasal Cannula 4.0 100 10/17/20 16:39 104 20 111/54 100 Nasal Cannula 4.0 10/17/20 15:33 86 25 97 Nasal Cannula 4.0 Laboratory Tests Test 10/17/20 16:39 10/17/20 17:24 10/17/20 18:20 10/17/20 19:06 POC Whole Blood Glucose 92 MG/DL (74-106) Pending Pending Pending Test 10/17/20 19:15 10/17/20 21:58 10/17/20 23:00 10/18/20 07:40 Troponin I 0.218 ng/mL (0.000-0.056) 0.194 ng/mL (0.000-0.056) POC Whole Blood Glucose 107 MG/DL (74-106) H Urine Color Yellow Urine Appearance Very cloudy Urine pH 5 (4.5-8.0) Urine Specific [place] 1.015 (1.005-1.035) Urine Protein 2+ (NEGATIVE) H Urine Glucose (UA) Negative (NEGATIVE) Urine Ketones Negative (NEGATIVE) Urine Blood 4+ (NEGATIVE) H Urine Nitrite Negative (NEGATIVE) Urine Bilirubin Negative (NEGATIVE) Urine Urobilinogen Normal MG/DL (0.0-1.0) Urine Leukocyte Esterase 3+ (NEGATIVE) H Urine RBC 40-60 /HPF (0 - 2) H Urine WBC Tntc /HPF (0 - 2) H Urine Squamous Epithelial Cells Moderate /LPF (NONE/OCC) H Urine Amorphous Sediment Moderate /LPF (NONE) H Urine Bacteria Many /HPF (NONE) H Urine Yeast Moderate /HPF (NONE) H Urine Random Sodium 18 mmol/L (20-110) L White Blood Count 4.9 K/UL (4.8-10.8) Red Blood Count 2.44 M/UL (4.20-5.40) L Hemoglobin 7.3 G/DL (12.0-16.0) L Hematocrit 24.1 % (37.0-47.0) L Mean Corpuscular Volume 99 FL (80-99) Mean Corpuscular Hemoglobin 30.0 PG (27.0-31.0) Mean Corpuscular Hemoglobin Concent 30.3 G/DL (32.0-36.0) L Red Cell Distribution Width 18.6 % (11.6-14.8) H Platelet Count 124 K/UL (150-450) L Mean Platelet Volume 10.1 FL (6.5-10.1) Neutrophils (%) (Auto) % (45.0-75.0) Lymphocytes (%) (Auto) % (20.0-45.0) Monocytes (%) (Auto) % (1.0-10.0) Eosinophils (%) (Auto) % (0.0-3.0) Basophils (%) (Auto) % (0.0-2.0) Differential Total Cells Counted 100 Neutrophils % (Manual) 85 % (45-75) H Lymphocytes % (Manual) 9 % (20-45) L Monocytes % (Manual) 6 % (1-10) Eosinophils % (Manual) 0 % (0-3) Basophils % (Manual) 0 % (0-2) Band Neutrophils 0 % (0-8) Platelet Estimate Decreased L Platelet Morphology Normal Hypochromasia 1+ Anisocytosis 1+ Reticulocyte Count 2.5 % (0.5-2.0) H Sodium Level 137 MMOL/L (136-145) Potassium Level 4.8 MMOL/L (3.5-5.1) Chloride Level 102 MMOL/L (98-107) Carbon Dioxide Level 36 MMOL/L (21-32) H Blood Urea Nitrogen 41 mg/dL (7-18) H Creatinine 2.0 MG/DL (0.55-1.30) H Estimat Glomerular Filtration Rate 23.8 mL/min (>60) Glucose Level 103 MG/DL (74-106) Hemoglobin A1c 5.2 % (4.3-6.0) Lactic Acid Level 0.80 mmol/L (0.4-2.0) Uric Acid 8.7 MG/DL (2.6-7.2) H Calcium Level 8.0 MG/DL (8.5-10.1) L Phosphorus Level 3.5 MG/DL (2.5-4.9) Magnesium Level 2.8 MG/DL (1.8-2.4) H Iron Level 40 ug/dL (50-175) L Total Iron Binding Capacity 160 ug/dL (250-450) L Percent Iron Saturation 25 % (15-50) Unsaturated Iron Binding 120 ug/dL (112-346) Ferritin 166 NG/ML (8-388) Total Bilirubin 0.7 MG/DL (0.2-1.0) Gamma Glutamyl Transpeptidase 19 U/L (5-85) Aspartate Amino Transf (AST/SGOT) 14 U/L (15-37) L Alanine Aminotransferase (ALT/SGPT) 10 U/L (12-78) L Alkaline Phosphatase 45 U/L (46-116) L Lactate Dehydrogenase 217 U/L (135-225) Total Creatine Kinase 22 U/L (26-308) L C-Reactive Protein, Quantitative 4.7 mg/dL (0.00-0.90) H Pro-B-Type Natriuretic Peptide > 20232 pg/mL (0-125) H Total Protein 4.7 G/DL (6.4-8.2) L Albumin 2.0 G/DL (3.4-5.0) L Globulin 2.7 g/dL Albumin/Globulin Ratio 0.7 (1.0-2.7) L Triglycerides Level 102 MG/DL (30-150) Cholesterol Level 98 MG/DL (< 200) LDL Cholesterol 51 mg/dL (<100) HDL Cholesterol 36 MG/DL (40-60) L Cholesterol/HDL Ratio 2.7 (3.3-4.4) L Vitamin B12 Level 574 PG/ML (193-986) Folate 10.0 NG/ML (8.6-58.9) Thyroid Stimulating Hormone (TSH) 9.619 uiU/mL (0.358-3.740) Free Thyroxine 0.57 NG/DL (0.76-1.46) L Intake and Output 10/17/20 10/18/20 19:00 07:00 Intake Total 50 ml 250 ml Output Total 100 ml Balance 50 ml 150 ml Intake Oral 50 ml IV Total 250 ml Output Urine Total 100 ml Current Medications Medications (Trade) Dose Ordered Sig/Yolanda Route PRN Reason Start Time Stop Time Status Last Admin Dose Admin Acetaminophen (Tylenol) 500 mg Q6HR PRN ORAL Mild Pain 1-3 10/17/20 17:45 11/16/20 17:44 Acetaminophen (Tylenol) 500 mg Q6HR PRN ORAL fever >100 10/17/20 18:00 11/16/20 17:59 Acetaminophen (Tylenol) 650 mg Q4H PRN ORAL Pain Scale (6-10) 10/17/20 19:15 11/16/20 19:14 Albumin Human 100 ml @ 100 mls/hr ONCE ONCE IV 10/18/20 13:45 10/18/20 14:44 UNV Chlorhexidine Gluconate (Eve-Hex 2%) 1 applic QHS TOPIC 10/18/20 20:00 01/16/21 19:59 Dextrose/Sodium Chloride 1,000 ml @ 50 mls/hr Q20H IV 10/17/20 18:45 11/16/20 18:44 10/17/20 19:03 Docusate Sodium (Colace) 100 mg TID ORAL 10/18/20 09:00 11/17/20 08:59 10/18/20 10:16 Enoxaparin Sodium (Lovenox) 40 mg DAILY SUBQ 10/18/20 09:00 01/16/21 08:59 Famotidine (Pepcid) 20 mg DAILY ORAL 10/18/20 09:00 01/16/21 08:59 10/18/20 10:16 Ondansetron HCl (Zofran) 4 mg Q6H PRN IVP Nausea & Vomiting 10/17/20 21:15 3/22/21 21:14 Laboratory Tests 10/17/20 16:39: POC Whole Blood Glucose 92 10/17/20 17:24: POC Whole Blood Glucose [Pending] 10/17/20 18:20: POC Whole Blood Glucose [Pending] 10/17/20 19:06: POC Whole Blood Glucose [Pending] 10/17/20 19:15: Troponin I 0.218H 10/17/20 21:58: POC Whole Blood Glucose 107H 10/17/20 23:00: Urine Color Yellow, Urine Appearance Very cloudy, Urine pH 5, Urine Specific [place] 1.015, Urine Protein 2+H, Urine Glucose (UA) Negative, Urine Ketones Negative, Urine Blood 4+H, Urine Nitrite Negative, Urine Bilirubin Negative, Urine Urobilinogen Normal, Urine Leukocyte Esterase 3+H, Urine RBC 40-60H, Urine WBC TntcH, Urine Squamous Epithelial Cells ModerateH, Urine Amorphous Sediment ModerateH, Urine Bacteria ManyH, Urine Yeast ModerateH, Urine Random Sodium 18L 10/18/20 07:40: Troponin I 0.194H, White Blood Count 4.9, Red Blood Count 2.44L, Hemoglobin 7.3L , Hematocrit 24.1L, Mean Corpuscular Volume 99, Mean Corpuscular Hemoglobin 30.0, Mean Corpuscular Hemoglobin Concent 30.3L, Red Cell Distribution Width 18.6H, Platelet Count 124L, Mean Platelet Volume 10.1, Neutrophils (%) (Auto) , Lymphocytes (%) (Auto) , Monocytes (%) (Auto) , Eosinophils (%) (Auto) , Basophils (%) (Auto) , Differential Total Cells Counted 100, Neutrophils % (Manual) 85H, Lymphocytes % (Manual) 9L, Monocytes % (Manual) 6, Eosinophils % (Manual) 0, Basophils % (Manual) 0, Band Neutrophils 0, Platelet Estimate DecreasedL, Platelet Morphology Normal, Hypochromasia 1+, Anisocytosis 1+, Reticulocyte Count 2.5H, Sodium Level 137, Potassium Level 4.8, Chloride Level 102, Carbon Dioxide Level 36H, Blood Urea Nitrogen 41H, Creatinine 2.0H, Estimat Glomerular Filtration Rate 23.8, Glucose Level 103, Hemoglobin A1c 5.2, Lactic Acid Level 0.80, Uric Acid 8.7H, Calcium Level 8.0L, Phosphorus Level 3.5, Magnesium Level 2.8H, Iron Level 40L, Total Iron Binding Capacity 160L, Percent Iron Saturation 25, Unsaturated Iron Binding 120, Ferritin 166, Total Bilirubin 0.7, Gamma Glutamyl Transpeptidase 19, Aspartate Amino Transf (AST/SGOT) 14L, Alanine Aminotransferase (ALT/SGPT) 10L, Alkaline Phosphatase 45L, Lactate Dehydrogenase 217, Total Creatine Kinase 22L, C-Reactive Protein, Quantitative 4.7H, Pro-B-Type Natriuretic Peptide > 49174C, Total Protein 4.7L, Albumin 2.0L, Globulin 2.7, Albumin/Globulin Ratio 0.7L, Triglycerides Level 102, Cholesterol Level 98, LDL Cholesterol 51, HDL Cholesterol 36L, Cholesterol/HDL Ratio 2.7L, Vitamin B12 Level 574, Folate 10.0, Thyroid Stimulating Hormone (TSH) 9.619H, Free Thyroxine 0.57L Height (Feet): 5 Weight (Pounds): 145 General Appearance: no apparent distress, lethargic Cardiovascular: normal rate Respiratory/Chest: decreased breath sounds Abdomen: distended Dustin Gómez MD Oct 18, 2020 13:44
--- NOTE | 2020-10-18 13:53 | NUR ---
NURSE HAND-OFF REPORT: Important Events on Shift:[]pt had 1 unit of blood transfused as well as 1 bag of albumin. pt responded well and she is now more alert. Latest blood pressure 108/47 Patient Status: []full code Diet: []npo Pending Orders: [] will have a speech evaluation and swallow test. Pending Results/Labs:[] Pending MD notification:[] Latest Vital Signs: Temperature 96.3 , Pulse 74 , B/P 97 /50 , Respiratory Rate 20 , O2 SAT 100 , Nasal Cannula, O2 Flow Rate 4.0 . Vital Sign Comment: [] EKG Rhythm: A-fib Rhythm change?: N MD Notified?: - MD Response: Latest Elizabeth Fall Score: 70 Fall Risk: High Risk Safety Measures: Call light Within Reach, Bed Alarm Zone 1, Side Rails Side Rails x3, Bed position Low and Locked. Fall Precautions: y Yellow Socks y Patient Fall Education y Report given to [].Oh/jabier Addendum: 10/18/20 at 2000 by Maria D Goldberg RN time for this note is 2001
--- NOTE | 2020-10-18 13:55 | NUR ---
NURSE NOTES: pt b/p started to decrease it is now 77/32, reassed pt a few times BP 85/37. Notified, doctor Jose Raul Gómez and Beth to notified them about low BP. new orders were given. Albumin and Mirodrine. An earlier order of blood was given by doctor Zechariah of 1 unit of blood. 1050 Consent was obtained from pt's son. and 2 other nurses witnessed.
--- NOTE | 2020-10-18 14:00 | Diagnostic Imaging Report ---
EXAM: US Duplex Bilateral Lower Extremities Veins CLINICAL HISTORY: Evaluate for DVT TECHNIQUE: Real-time duplex ultrasound scan of the bilateral lower extremity veins integrating B-mode two-dimensional vascular structure, Doppler spectral analysis, color flow Doppler imaging and compression. COMPARISON: No relevant prior studies available. FINDINGS: Limitations: Patient refused to finish the exam and therefore the left lower extremity venous segments were not evaluated. 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 Left common femoral, femoral, popliteal, and posterior tibial veins are patent and unremarkable. Left deep veins: No DVT in the visualized portions of the left common femoral vein. Left SFV and popliteal veins were not evaluated. Soft tissues: No popliteal cyst. IMPRESSION: 1. Patient refused to finish the exam and therefore the left lower extremity venous segments were not evaluated. 2. 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 3. No other evidence of DVT in the right lower extremity.
[2020-10-18] MEDS: D5 1/2NS 1,000 ML IV SCH ×2 (14:45→22:13)
[2020-10-18] MEDS ORDERED: Varibar Thin Liquid powder 148gm MC PRN (15:00)
[2020-10-18] MEDS ORDERED: Varibar Nectar 240ml MC PRN (15:00)
[2020-10-18] MEDS ORDERED: Varibar Pudding 230ml MC PRN (15:00)
[2020-10-18] MEDS ORDERED: Varibar Honey 250ml MC PRN (15:00)
[2020-10-18] MEDS: Midodrine 10mg tab ORAL SCH ×2 (15:05→21:50)
--- NOTE | 2020-10-18 15:08 | NUR ---
NURSE NOTES: unable to give Colace, pt spitting out medication.
--- NOTE | 2020-10-18 15:09 | NUR ---
NURSE NOTES: unable to give albumen at the due time blood transfusion is infusing now. Notified pharmacy about it.
[2020-10-18 16:00] VITALS: BP 97/50
--- NOTE | 2020-10-18 19:30 | NUR ---
NURSE NOTES: Receive a report from SERGIO Killian. Round is made. Pt is awake but confused. No distress noted. No wheezing noted. On Bed bound and position change q 2hrs. Green is inserted state and patent with cloudy urine small amount. Fluid is running as ordered. Call light within reach. Will continue to monitor.
[2020-10-18 20:00] VITALS: BP 121/58
[2020-10-18] MEDS: Dyna-Hex 2% Top Sol 2oz TOPIC SCH ×2 (21:00→21:51)
--- NOTE | 2020-10-18 21:00 | NUR ---
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 Will continue to monitor.
--- NOTE | 2020-10-18 22:44 | History and Physical Report ---
DATE OF ADMISSION: 10/17/2020 HISTORY OF PRESENT ILLNESS: The patient was being admitted for bradycardia. EKG shows atrial fibrillation with some pauses. The patient also had anemia due to [facility]. He is COVID positive at [facility]. The patient also has anemia, hyperkalemia, azotemia, acute renal failure, and elevated troponin. Aspirin was given. Chest x-ray has atelectasis versus infiltrate on the left. The patient is a poor historian. I cannot get a reliable history. However, he does have some shortness of breath and denies nausea, vomiting, or diarrhea. Denies headache. Denies fever or chills. PAST MEDICAL HISTORY: Constipation, hypertension, iron deficiency anemia, NIDDM, and hypertension. PAST SURGICAL HISTORY: Denies. MEDICATIONS: Actos, Lasix, Pepcid, docusate, Coreg, and aspirin. ALLERGIES: No known allergies. FAMILY HISTORY: Noncontributory. SOCIAL HISTORY: Denies history of smoking. Denies history of alcohol or illicit drugs. REVIEW OF SYSTEMS: HEENT: Denies headaches. RESPIRATORY: . CARDIOVASCULAR: Denies chest pain. Denies orthopnea. GASTROINTESTINAL: Denies nausea, vomiting, or diarrhea. EXTREMITIES: Denies pain. CENTRAL NERVOUS SYSTEM: Denies change in vision or speech pattern. PHYSICAL EXAMINATION: VITAL SIGNS: Temperature is 97.9, pulse is 69, blood pressure is 197/53. HEENT: PERRLA. NECK: Supple. No lymphadenopathy. CHEST: Clear to auscultation. CARDIOVASCULAR: Bradycardic. No murmurs or extra sounds. GASTROINTESTINAL: Soft, nontender, and nondistended. No organomegaly. EXTREMITIES: No edema. Moves all four extremities. NEUROLOGIC: Sensory intact to light touch. Reflexes equal on both sides. LABORATORY DATA: WBC of 7.7, hemoglobin 8.1, and platelets of 143. Sodium 137, potassium 4.8, BUN of 41, creatinine of 2, and glucose of 103. Troponin 0.194. ASSESSMENT AND PLAN: 1. Anemia. 2. Bradycardia. 3. Atrial fibrillation. 4. COVID positive. 5. Poor intake. 6. Hyperkalemia. 7. Azotemia. 8. Elevated troponin. PLAN: I have consulted Dr. Carlos Woods, Dr. Gómez, Dr. Hawk Ma, Dr. Reyes, and Dr. Luis Alvarado to help with the management of the above-mentioned abnormal symptoms, abnormal findings, imaging findings, and abnormal labs. Neri Dumont M.D. DR: CLOVIS JOB#: [id number] CC:
[2020-10-19] VITALS: BP 96/59
[2020-10-19 04:00] VITALS: BP 98/57
--- NOTE | 2020-10-19 06:28 | Hematology/Onc Progress Note ---
Assessment/Plan Assessment/Plan Assessment and recs # Anemia r/o gi bleed --> anemia panel has been ordered --> hgb 8.1->9.3 --> no hemolysis is noted --> transfuse on prn basis # Hypercoag disorder with Atrial fibrillation --> consider anticoag as per cards --> if bleeding, consider hold anticoag # Elevated trop --> per cards # Hyperkalemia --> per renal # Acute kidney injury --> per renal # Recently COVID-19 positive # Dvt ppx scds --> lovenox sq Appreciate consultation and dw rn Subjective HEENT: Denies: no symptoms, eye pain, blurred vision, tearing, double vision, ear pain, ear discharge, nose pain, nose congestion, throat pain, throat swelling, mouth pain, mouth swelling, other Cardiovascular: Denies: no symptoms, chest pain, edema, irregular heart rate, lightheadedness, palpitations, syncope, other Respiratory: Denies: no symptoms, cough, shortness of breath, SOB with excertion, SOB at rest, sputum, wheezing, other Gastrointestinal/Abdominal: Denies: no symptoms, abdomen distended, abdominal pain, black stools, tarry stools, blood in stool, constipated, diarrhea, difficulty swallowing, nausea, poor appetite, poor fluid intake, rectal bleeding, vomiting, other Genitourinary: Denies: no symptoms, burning, discharge, frequency, flank pain, hematuria, incontinence, pain, urgency, other Endocrine: Denies: no symptoms, excessive sweating, flushing, intolerance to cold, intolerance to heat, increased hunger, increased thirst, increased urine, unexplained weight gain, unexplained weight loss, other Hematologic/Lymphatic: Denies: no symptoms, anemia, easy bleeding, easy bruising, adenopathy, other Allergies: Coded Allergies: No Known Allergies (Unverified , 10/17/20) Subjective 10/19 cbc is pending, did get blood transfusion last night, pending results Objective Objective Current Medications Medications (Trade) Dose Ordered Sig/Yolanda Route PRN Reason Start Time Stop Time Status Last Admin Dose Admin Acetaminophen (Tylenol) 500 mg Q6HR PRN ORAL Mild Pain 1-3 10/17/20 17:45 11/16/20 17:44 Acetaminophen (Tylenol) 500 mg Q6HR PRN ORAL fever >100 10/17/20 18:00 11/16/20 17:59 Acetaminophen (Tylenol) 650 mg Q4H PRN ORAL Pain Scale (6-10) 10/17/20 19:15 11/16/20 19:14 Barium Sulfate (Varibar Honey) 250 ml NOW PRN MC RAD 10/18/20 15:00 10/21/20 14:49 Barium Sulfate (Varibar [place]) 240 ml NOW PRN MC RAD 10/18/20 15:00 10/21/20 14:49 Barium Sulfate (Varibar Pudding) 230 ml NOW PRN MC RAD 10/18/20 15:00 10/21/20 14:49 Barium Sulfate (Varibar Thin Liquid powder) 148 gm NOW PRN RAD 10/18/20 15:00 10/21/20 14:49 Chlorhexidine Gluconate (Eve-Hex 2%) 1 applic QHS TOPIC 10/18/20 20:00 01/16/21 19:59 10/18/20 21:00 Dextrose/Sodium Chloride 1,000 ml @ 50 mls/hr Q20H IV 10/17/20 18:45 11/16/20 18:44 10/18/20 22:13 Docusate Sodium (Colace) 100 mg TID ORAL 10/18/20 09:00 11/17/20 08:59 10/18/20 10:16 Enoxaparin Sodium (Lovenox) 40 mg DAILY SUBQ 10/18/20 09:00 01/16/21 08:59 Famotidine (Pepcid) 20 mg DAILY ORAL 10/18/20 09:00 01/16/21 08:59 10/18/20 10:16 Levothyroxine Sodium (Synthroid) 50 mcg DAILY@0630 ORAL 10/19/20 06:30 11/18/20 06:29 Midodrine (Pro-Amatine) 10 mg Q8HR ORAL 10/18/20 14:00 01/16/21 13:59 10/18/20 21:50 Ondansetron HCl (Zofran) 4 mg Q6H PRN IVP Nausea & Vomiting 10/17/20 21:15 11/16/20 21:14 Last 24 Hour Vital Signs Date Time Temp Pulse Resp B/P (MAP) Pulse Ox O2 Delivery O2 Flow Rate FiO2 10/19/20 04:00 97.9 85 20 98/57 (71) 98 10/19/20 04:00 97 10/19/20 00:00 98.0 84 20 96/59 (71) 98 10/19/20 00:00 99 10/18/20 21:00 Nasal Cannula 4.0 10/18/20 20:00 98.6 61 20 121/58 (79) 98 10/18/20 20:00 92 10/18/20 16:00 96.3 88 20 97/50 (66) 100 10/18/20 16:00 74 10/18/20 12:00 97.5 66 20 89/38 (55) 100 10/18/20 12:00 72 10/18/20 09:00 Nasal Cannula 4.0 10/18/20 08:00 97.5 68 18 106/39 (61) 100 10/18/20 08:00 69 10/18/20 04:00 97.9 69 18 97/53 (68) 99 10/18/20 04:00 67 10/18/20 00:00 97.9 66 20 130/85 (100) 98 10/18/20 00:00 79 10/17/20 21:00 Nasal Cannula 4.0 10/17/20 20:00 84 10/17/20 20:00 97.9 77 20 130/64 (86) 98 10/17/20 18:12 Nasal Cannula 4.0 10/17/20 17:03 98.1 104 20 111/54 100 Nasal Cannula 4.0 100 10/17/20 16:39 104 20 111/54 100 Nasal Cannula 4.0 10/17/20 15:33 86 25 97 Nasal Cannula 4.0 10/17/20 13:17 106 18 107/56 97 Nasal Cannula 4.0 10/17/20 11:37 98 28 103/49 100 Nasal Cannula 4.0 10/17/20 11:37 83 25 Nasal Cannula 4.0 100 10/17/20 11:05 98.1 57 18 118/78 (91) 98 Nasal Cannula 2.0 Intake and Output 10/18/20 10/19/20 19:00 07:00 Output Total 50 ml Balance -50 ml Output Urine Total 50 ml # Voids 1 Labs Test 10/17/20 13:10 10/17/20 16:39 10/17/20 17:24 10/17/20 18:20 White Blood Count 7.7 K/UL (4.8-10.8) Red Blood Count 2.73 M/UL (4.20-5.40) Hemoglobin 8.1 G/DL (12.0-16.0) Hematocrit 26.8 % (37.0-47.0) Mean Corpuscular Volume 98 FL (80-99) Mean Corpuscular Hemoglobin 29.8 PG (27.0-31.0) Mean Corpuscular Hemoglobin Concent 30.4 G/DL (32.0-36.0) Red Cell Distribution Width 18.6 % (11.6-14.8) Platelet Count 143 K/UL (150-450) Mean Platelet Volume 8.9 FL (6.5-10.1) Neutrophils (%) (Auto) % (45.0-75.0) Lymphocytes (%) (Auto) % (20.0-45.0) Monocytes (%) (Auto) % (1.0-10.0) Eosinophils (%) (Auto) % (0.0-3.0) Basophils (%) (Auto) % (0.0-2.0) Differential Total Cells Counted 100 Neutrophils % (Manual) 84 % (45-75) Lymphocytes % (Manual) 12 % (20-45) Monocytes % (Manual) 2 % (1-10) Eosinophils % (Manual) 0 % (0-3) Basophils % (Manual) 0 % (0-2) Band Neutrophils 2 % (0-8) Platelet Estimate Decreased Platelet Morphology Normal Hypochromasia 1+ Anisocytosis 1+ Prothrombin Time 11.7 SEC (9.30-11.50) Prothromb Time International Ratio 1.1 (0.9-1.1) Activated Partial Thromboplast Time 28 SEC (23-33) Sodium Level 138 MMOL/L (136-145) Potassium Level 5.2 MMOL/L (3.5-5.1) Chloride Level 101 MMOL/L (98-107) Carbon Dioxide Level 35 MMOL/L (21-32) Anion Gap 2 mmol/L (5-15) Blood Urea Nitrogen 41 mg/dL (7-18) Creatinine 1.7 MG/DL (0.55-1.30) Estimat Glomerular Filtration Rate 28.7 mL/min (>60) Glucose Level 89 MG/DL (74-106) Calcium Level 8.2 MG/DL (8.5-10.1) Phosphorus Level 3.1 MG/DL (2.5-4.9) Magnesium Level 2.4 MG/DL (1.8-2.4) Total Bilirubin 1.0 MG/DL (0.2-1.0) Aspartate Amino Transf (AST/SGOT) 17 U/L (15-37) Alanine Aminotransferase (ALT/SGPT) 11 U/L (12-78) Alkaline Phosphatase 53 U/L (46-116) Troponin I 0.181 ng/mL (0.000-0.056) Total Protein 5.4 G/DL (6.4-8.2) Albumin 2.3 G/DL (3.4-5.0) Globulin 3.1 g/dL Albumin/Globulin Ratio 0.7 (1.0-2.7) POC Whole Blood Glucose 92 MG/DL (74-106) Test 10/17/20 19:06 10/17/20 19:15 10/17/20 21:58 10/17/20 23:00 Troponin I 0.218 ng/mL (0.000-0.056) POC Whole Blood Glucose 107 MG/DL (74-106) Urine Color Yellow Urine Appearance Very cloudy Urine pH 5 (4.5-8.0) Urine Specific [place] 1.015 (1.005-1.035) Urine Protein 2+ (NEGATIVE) Urine Glucose (UA) Negative (NEGATIVE) Urine Ketones Negative (NEGATIVE) Urine Blood 4+ (NEGATIVE) Urine Nitrite Negative (NEGATIVE) Urine Bilirubin Negative (NEGATIVE) Urine Urobilinogen Normal MG/DL (0.0-1.0) Urine Leukocyte Esterase 3+ (NEGATIVE) Urine RBC 40-60 /HPF (0 - 2) Urine WBC Tntc /HPF (0 - 2) Urine Squamous Epithelial Cells Moderate /LPF (NONE/OCC) Urine Amorphous Sediment Moderate /LPF (NONE) Urine Bacteria Many /HPF (NONE) Urine Yeast Moderate /HPF (NONE) Urine Random Sodium 18 mmol/L (20-110) Test 10/18/20 07:40 White Blood Count 4.9 K/UL (4.8-10.8) Red Blood Count 2.44 M/UL (4.20-5.40) Hemoglobin 7.3 G/DL (12.0-16.0) Hematocrit 24.1 % (37.0-47.0) Mean Corpuscular Volume 99 FL (80-99) Mean Corpuscular Hemoglobin 30.0 PG (27.0-31.0) Mean Corpuscular Hemoglobin Concent 30.3 G/DL (32.0-36.0) Red Cell Distribution Width 18.6 % (11.6-14.8) Platelet Count 124 K/UL (150-450) Mean Platelet Volume 10.1 FL (6.5-10.1) Neutrophils (%) (Auto) % (45.0-75.0) Lymphocytes (%) (Auto) % (20.0-45.0) Monocytes (%) (Auto) % (1.0-10.0) Eosinophils (%) (Auto) % (0.0-3.0) Basophils (%) (Auto) % (0.0-2.0) Differential Total Cells Counted 100 Neutrophils % (Manual) 85 % (45-75) Lymphocytes % (Manual) 9 % (20-45) Monocytes % (Manual) 6 % (1-10) Eosinophils % (Manual) 0 % (0-3) Basophils % (Manual) 0 % (0-2) Band Neutrophils 0 % (0-8) Platelet Estimate Decreased Platelet Morphology Normal Hypochromasia 1+ Anisocytosis 1+ Reticulocyte Count 2.5 % (0.5-2.0) Sodium Level 137 MMOL/L (136-145) Potassium Level 4.8 MMOL/L (3.5-5.1) Chloride Level 102 MMOL/L (98-107) Carbon Dioxide Level 36 MMOL/L (21-32) Blood Urea Nitrogen 41 mg/dL (7-18) Creatinine 2.0 MG/DL (0.55-1.30) Estimat Glomerular Filtration Rate 23.8 mL/min (>60) Glucose Level 103 MG/DL (74-106) Hemoglobin A1c 5.2 % (4.3-6.0) Lactic Acid Level 0.80 mmol/L (0.4-2.0) Uric Acid 8.7 MG/DL (2.6-7.2) Calcium Level 8.0 MG/DL (8.5-10.1) Phosphorus Level 3.5 MG/DL (2.5-4.9) Magnesium Level 2.8 MG/DL (1.8-2.4) Iron Level 40 ug/dL (50-175) Total Iron Binding Capacity 160 ug/dL (250-450) Percent Iron Saturation 25 % (15-50) Unsaturated Iron Binding 120 ug/dL (112-346) Ferritin 166 NG/ML (8-388) Total Bilirubin 0.7 MG/DL (0.2-1.0) Gamma Glutamyl Transpeptidase 19 U/L (5-85) Aspartate Amino Transf (AST/SGOT) 14 U/L (15-37) Alanine Aminotransferase (ALT/SGPT) 10 U/L (12-78) Alkaline Phosphatase 45 U/L (46-116) Lactate Dehydrogenase 217 U/L (135-225) Total Creatine Kinase 22 U/L (26-308) Troponin I 0.194 ng/mL (0.000-0.056) C-Reactive Protein, Quantitative 4.7 mg/dL (0.00-0.90) Pro-B-Type Natriuretic Peptide > 51562 pg/mL (0-125) Total Protein 4.7 G/DL (6.4-8.2) Albumin 2.0 G/DL (3.4-5.0) Globulin 2.7 g/dL Albumin/Globulin Ratio 0.7 (1.0-2.7) Triglycerides Level 102 MG/DL (30-150) Cholesterol Level 98 MG/DL (< 200) LDL Cholesterol 51 mg/dL (<100) HDL Cholesterol 36 MG/DL (40-60) Cholesterol/HDL Ratio 2.7 (3.3-4.4) Vitamin B12 Level 574 PG/ML (193-986) Folate 10.0 NG/ML (8.6-58.9) Thyroid Stimulating Hormone (TSH) 9.619 uiU/mL (0.358-3.740) Free Thyroxine 0.57 NG/DL (0.76-1.46) Height (Feet): 5 Weight (Pounds): 145 Objective Physical Exam General: Awake and alert, no acute distress HEENT: NC/AT. EOMI. Cardiovascular: Irregularly irregular rhythm. Normal heart rate Resp: Normal work of breathing. No cough, wheezing or crackles appreciated Abdomen: Abdomen is soft, nondistended. Nontender Skin: Intact. No abrasions, laceration or rash over the exposed skin MSK: Normal tone and bulk. Moving all extremities. No obvious deformity. Neuro: Awake and alert. Mentating appropriately. Hawk Ma MD Oct 19, 2020 06:28
[2020-10-19] MEDS: Midodrine 10mg tab ORAL SCH ×3 (07:05→21:38)
--- NOTE | 2020-10-19 07:30 | NUR ---
NURSE HAND-OFF REPORT: Important Events on Shift: BP remains above 90mmHg. No distress noted but restless noted. Refusal to take mediation. Patient Status: [stable] Diet: [npo] Pending Orders: [] Pending Results/Labs:[] Pending MD notification:[] Latest Vital Signs: Temperature 97.9 , Pulse 97 , B/P 98 /57 , Respiratory Rate 20 , O2 SAT 98 , Nasal Cannula, O2 Flow Rate 4.0 . Vital Sign Comment: [] EKG Rhythm: A-fib Rhythm change?: N MD Notified?: - MD Response: Latest Elizabeth Fall Score: 70 Fall Risk: High Risk Safety Measures: Call light Within Reach, Bed Alarm Zone 1, Side Rails Side Rails x3, Bed position Low and Locked. Fall Precautions: Yellow Socks Patient Fall Education Report given to SERGIO Smiley. Round is made.
[2020-10-19 08:00] VITALS: BP 108/61
--- NOTE | 2020-10-19 08:28 | NUR ---
NURSE NOTES: pt is bed and asleep. opt is on bus driver/monitor and on NC 4L, showing no signs of respiratory or cardiac distress. call light is within reach, bed is locked and in lowest position.
[2020-10-19] MEDS: Enoxaparin 40mg Inj SUBQ SCH (09:38)
[2020-10-19] MEDS: Docusate 100mg cap ORAL SCH ×3 (10:16→18:00)
--- NOTE | 2020-10-19 10:53 | Nephrology Progress Note ---
Assessment/Plan Problem List: (1) Acute kidney injury (2) Anemia (3) Hyperkalemia (4) Elevated troponin (5) Pneumonia due to COVID-19 virus (6) Hypothyroidism Assessment Plan October 19: Today's labs still not done yet. RN informed. Albumin bolus given again. Continue to monitor electrolytes and renal parameters. Per orders October 18: Patient hypotensive. Due for blood transfusion. Will give albumin bolus. Continue to monitor renal parameters and electrolytes. Labs and medication list reviewed Subjective ROS Limited/Unobtainable: No Constitutional: Reports: malaise, weakness Objective Objective Last 24 Hour Vital Signs Date Time Temp Pulse Resp B/P (MAP) Pulse Ox O2 Delivery O2 Flow Rate FiO2 10/19/20 04:00 97.9 85 20 98/57 (71) 98 10/19/20 04:00 97 10/19/20 00:00 98.0 84 20 96/59 (71) 98 10/19/20 00:00 99 10/18/20 21:00 Nasal Cannula 4.0 10/18/20 20:00 98.6 61 20 121/58 (79) 98 10/18/20 20:00 92 10/18/20 16:00 96.3 88 20 97/50 (66) 100 10/18/20 16:00 74 10/18/20 12:00 97.5 66 20 89/38 (55) 100 10/18/20 12:00 72 Intake and Output 10/18/20 10/19/20 19:00 07:00 Output Total 50 ml 100 ml Balance -50 ml -100 ml Output Urine Total 50 ml 100 ml # Voids 1 Current Medications Medications (Trade) Dose Ordered Sig/Yolanda Route PRN Reason Start Time Stop Time Status Last Admin Dose Admin Acetaminophen (Tylenol) 500 mg Q6HR PRN ORAL Mild Pain 1-3 10/17/20 17:45 11/16/20 17:44 Acetaminophen (Tylenol) 500 mg Q6HR PRN ORAL fever >100 10/17/20 18:00 11/16/20 17:59 Acetaminophen (Tylenol) 650 mg Q4H PRN ORAL Pain Scale (6-10) 10/17/20 19:15 11/16/20 19:14 Barium Sulfate (Varibar Honey) 250 ml NOW PRN MC RAD 10/18/20 15:00 10/21/20 14:49 Barium Sulfate (Varibar [place]) 240 ml NOW PRN MC RAD 10/18/20 15:00 10/21/20 14:49 Barium Sulfate (Varibar Pudding) 230 ml NOW PRN MC RAD 10/18/20 15:00 10/21/20 14:49 Barium Sulfate (Varibar Thin Liquid powder) 148 gm NOW PRN MC RAD 10/18/20 15:00 10/21/20 14:49 Chlorhexidine Gluconate (Eve-Hex 2%) 1 applic QHS TOPIC 10/18/20 20:00 01/16/21 19:59 10/18/20 21:00 Dextrose/Sodium Chloride 1,000 ml @ 50 mls/hr Q20H IV 10/17/20 18:45 11/16/20 18:44 10/18/20 22:13 Docusate Sodium (Colace) 100 mg TID ORAL 10/18/20 09:00 11/17/20 08:59 10/19/20 10:16 Enoxaparin Sodium (Lovenox) 40 mg DAILY SUBQ 10/18/20 09:00 01/16/21 08:59 10/19/20 09:38 Famotidine (Pepcid) 20 mg DAILY ORAL 10/18/20 09:00 01/16/21 08:59 10/19/20 09:38 Levothyroxine Sodium (Synthroid) 50 mcg DAILY@0630 ORAL 10/19/20 06:30 11/18/20 06:29 10/19/20 07:05 Midodrine (Pro-Amatine) 10 mg Q8HR ORAL 10/18/20 14:00 01/16/21 13:59 10/19/20 07:05 Ondansetron HCl (Zofran) 4 mg Q6H PRN IVP Nausea & Vomiting 10/17/20 21:15 11/16/20 21:14 Height (Feet): 5 Weight (Pounds): 145 General Appearance: no apparent distress, lethargic Cardiovascular: tachycardia Respiratory/Chest: decreased breath sounds Abdomen: distended Dustin Gómez MD Oct 19, 2020 10:53
--- NOTE | 2020-10-19 10:59 | Surgery Progress Note ---
Surgery Progress Note Subjective Additional Comments labs pending venous duplex noted no n/v comfortable stable Objective Last 24 Hour Vital Signs Date Time Temp Pulse Resp B/P (MAP) Pulse Ox O2 Delivery O2 Flow Rate FiO2 10/19/20 04:00 97.9 85 20 98/57 (71) 98 10/19/20 04:00 97 10/19/20 00:00 98.0 84 20 96/59 (71) 98 10/19/20 00:00 99 10/18/20 21:00 Nasal Cannula 4.0 10/18/20 20:00 98.6 61 20 121/58 (79) 98 10/18/20 20:00 92 10/18/20 16:00 96.3 88 20 97/50 (66) 100 10/18/20 16:00 74 10/18/20 12:00 97.5 66 20 89/38 (55) 100 10/18/20 12:00 72 I&O Intake and Output 10/18/20 10/19/20 19:00 07:00 Output Total 50 ml 100 ml Balance -50 ml -100 ml Output Urine Total 50 ml 100 ml # Voids 1 Dressing: dry Wound: clean Cardiovascular: RSR Respiratory: clear Abdomen: soft, flat, non-tender, present bowel sounds, non-distended Extremities: no edema, no tenderness, no cyanosis Plan Problems: (1) Anemia (2) Acute kidney injury (3) Atrial fibrillation (4) Hyperkalemia (5) Elevated troponin (6) Decubitus skin ulcer Assessment & Plan: Apply Moisture Barrier Paste to Sacrum. Cover with Optifoam drsg.Change every 3 days and prn. Apply Moisture Barrier Paste to abdominal folds, Perineum and skin folds of both upper thighs. Apply [place] Skin Barrier to both heels. Cover each Heel with Optifoam drsg. Change every 7 days and prn. Reposition at least every 2hours or as tolerated. Off-load heels with pillow. (7) Malnutrition GiovaniJim juarez Oct 19, 2020 10:58
[2020-10-19 11:40] LABS: BASOPHILS % (AUTO) 1.1 % (0.0-2.0); EOSINOPHILS % (AUTO) 0.7 % (0.0-3.0); HEMATOCRIT 31.9 % (37.0-47.0); HEMOGLOBIN 9.7 G/DL (12.0-16.0); LYMPHOCYTES % (AUTO) 8.2 % (20.0-45.0); MEAN CORPUSCULAR VOLUME 97 FL (80-99); MONOCYTES % (AUTO) 5.6 % (1.0-10.0); NEUTROPHILS % (AUTO) 84.3 % (45.0-75.0); PLATELET COUNT 134 K/UL (150-450); RED BLOOD COUNT 3.29 M/UL (4.20-5.40); RED CELL DISTRIBUTION WIDTH 18.6 % (11.6-14.8); WHITE BLOOD COUNT 6.5 K/UL (4.8-10.8)
[2020-10-19 12:00] VITALS: BP 132/66
[2020-10-19 12:14] LABS: ALANINE AMINOTRANSFERASE 12 U/L (12-78); ALBUMIN 2.7 G/DL (3.4-5.0); ALBUMIN/GLOBULIN RATIO 0.9 (1.0-2.7); ALKALINE PHOSPHATASE 57 U/L (46-116); ANION GAP 6 mmol/L (5-15); ASPARTATE AMINO TRANSFERASE 16 U/L (15-37); BLOOD UREA NITROGEN 44 mg/dL (7-18); CALCIUM 8.2 MG/DL (8.5-10.1); CARBON DIOXIDE 31 MMOL/L (21-32); CHLORIDE 100 MMOL/L (98-107); CREATININE 2.1 MG/DL (0.55-1.30); PHOSPHORUS 3.2 MG/DL (2.5-4.9); SODIUM 137 MMOL/L (136-145)
[2020-10-19] MEDS: cefTRIAXone 1 GM in D5W 55 ML IVPB SCH (13:07)
--- NOTE | 2020-10-19 13:21 | Cardiac Electrophysiology PN ---
Subjective Subjective [id number] Objective Last 24 Hour Vital Signs Date Time Temp Pulse Resp B/P (MAP) Pulse Ox O2 Delivery O2 Flow Rate FiO2 10/19/20 09:00 Nasal Cannula 4.0 10/19/20 08:00 97.1 66 20 108/61 (77) 95 10/19/20 04:00 97.9 85 20 98/57 (71) 98 10/19/20 04:00 97 10/19/20 00:00 98.0 84 20 96/59 (71) 98 10/19/20 00:00 99 10/18/20 21:00 Nasal Cannula 4.0 10/18/20 20:00 98.6 61 20 121/58 (79) 98 10/18/20 20:00 92 10/18/20 16:00 96.3 88 20 97/50 (66) 100 10/18/20 16:00 74 Intake and Output 10/18/20 10/19/20 19:00 07:00 Output Total 50 ml 100 ml Balance -50 ml -100 ml Output Urine Total 50 ml 100 ml # Voids 1 Laboratory Tests Test 10/19/20 11:00 White Blood Count 6.5 K/UL (4.8-10.8) Red Blood Count 3.29 M/UL (4.20-5.40) L Hemoglobin 9.7 G/DL (12.0-16.0) #L Hematocrit 31.9 % (37.0-47.0) #L Mean Corpuscular Volume 97 FL (80-99) Mean Corpuscular Hemoglobin 29.5 PG (27.0-31.0) Mean Corpuscular Hemoglobin Concent 30.4 G/DL (32.0-36.0) L Red Cell Distribution Width 18.6 % (11.6-14.8) H Platelet Count 134 K/UL (150-450) L Mean Platelet Volume 9.1 FL (6.5-10.1) Neutrophils (%) (Auto) 84.3 % (45.0-75.0) H Lymphocytes (%) (Auto) 8.2 % (20.0-45.0) L Monocytes (%) (Auto) 5.6 % (1.0-10.0) Eosinophils (%) (Auto) 0.7 % (0.0-3.0) Basophils (%) (Auto) 1.1 % (0.0-2.0) Sodium Level 137 MMOL/L (136-145) Potassium Level 5.0 MMOL/L (3.5-5.1) Chloride Level 100 MMOL/L (98-107) Carbon Dioxide Level 31 MMOL/L (21-32) Anion Gap 6 mmol/L (5-15) Blood Urea Nitrogen 44 mg/dL (7-18) H Creatinine 2.1 MG/DL (0.55-1.30) H Estimat Glomerular Filtration Rate 22.5 mL/min (>60) Glucose Level 93 MG/DL (74-106) Uric Acid 9.4 MG/DL (2.6-7.2) H Calcium Level 8.2 MG/DL (8.5-10.1) L Phosphorus Level 3.2 MG/DL (2.5-4.9) Magnesium Level 2.5 MG/DL (1.8-2.4) H Total Bilirubin 1.0 MG/DL (0.2-1.0) Aspartate Amino Transf (AST/SGOT) 16 U/L (15-37) Alanine Aminotransferase (ALT/SGPT) 12 U/L (12-78) Alkaline Phosphatase 57 U/L (46-116) C-Reactive Protein, Quantitative 4.2 mg/dL (0.00-0.90) H Pro-B-Type Natriuretic Peptide > 26649 pg/mL (0-125) H Total Protein 5.6 G/DL (6.4-8.2) L Albumin 2.7 G/DL (3.4-5.0) L Globulin 2.9 g/dL Albumin/Globulin Ratio 0.9 (1.0-2.7) L Free Triiodothyronine 0.6 pg/mL (2.3-4.2) L Microbiology Date/Time Source Procedure Growth Status 10/17/20 23:00 Urine,Clean Catch Urine Culture - Preliminary Yeast Species Resulted Terry Reyes MD Oct 19, 2020 13:21
--- NOTE | 2020-10-19 13:30 | Pulmonology Progress Note ---
Subjective ROS Limited/Unobtainable: No Interval Events: None major reported per nursing Constitutional: Reports: no symptoms HEENT: Repors: no symptoms Respiratory: Reports: no symptoms Cardiovascular: Reports: no symptoms Gastrointestinal/Abdominal: Reports: no symptoms Allergies: Coded Allergies: No Known Allergies (Unverified , 10/17/20) Objective Last 24 Hour Vital Signs Date Time Temp Pulse Resp B/P (MAP) Pulse Ox O2 Delivery O2 Flow Rate FiO2 10/19/20 09:00 Nasal Cannula 4.0 10/19/20 08:00 97.1 66 20 108/61 (77) 95 10/19/20 04:00 97.9 85 20 98/57 (71) 98 10/19/20 04:00 97 10/19/20 00:00 98.0 84 20 96/59 (71) 98 10/19/20 00:00 99 10/18/20 21:00 Nasal Cannula 4.0 10/18/20 20:00 98.6 61 20 121/58 (79) 98 10/18/20 20:00 92 10/18/20 16:00 96.3 88 20 97/50 (66) 100 10/18/20 16:00 74 Intake and Output 10/18/20 10/19/20 19:00 07:00 Output Total 50 ml 100 ml Balance -50 ml -100 ml Output Urine Total 50 ml 100 ml # Voids 1 General Appearance: no acute distress HEENT: atraumatic Respiratory: lungs clear Cardiovascular: normal rate, regular rhythm Abdomen: soft, non tender Microbiology Date/Time Source Procedure Growth Status 10/17/20 23:00 Urine,Clean Catch Urine Culture - Preliminary Yeast Species Resulted Laboratory Tests 10/19/20 11:00: White Blood Count 6.5, Red Blood Count 3.29L, Hemoglobin 9.7#L, Hematocrit 31.9#L, Mean Corpuscular Volume 97, Mean Corpuscular Hemoglobin 29.5, Mean Corpuscular Hemoglobin Concent 30.4L, Red Cell Distribution Width 18.6H, Platelet Count 134L, Mean Platelet Volume 9.1, Neutrophils (%) (Auto) 84.3H, Lymphocytes (%) (Auto) 8.2L, Monocytes (%) (Auto) 5.6, Eosinophils (%) (Auto) 0.7, Basophils (%) (Auto) 1.1, Sodium Level 137, Potassium Level 5.0, Chloride Level 100, Carbon Dioxide Level 31, Anion Gap 6, Blood Urea Nitrogen 44H, Creatinine 2.1H, Estimat Glomerular Filtration Rate 22.5, Glucose Level 93, Uric Acid 9.4H, Calcium Level 8.2L, Phosphorus Level 3.2, Magnesium Level 2.5H, Total Bilirubin 1.0, Aspartate Amino Transf (AST/SGOT) 16, Alanine Aminotransferase (ALT/SGPT) 12, Alkaline Phosphatase 57, C-Reactive Protein, Quantitative 4.2H, Pro-B-Type Natriuretic Peptide > 38820U, Total Protein 5.6L, Albumin 2.7L, Globulin 2.9, Albumin/Globulin Ratio 0.9L, Free Triiodothyronine 0.6L Current Medications Medications (Trade) Dose Ordered Sig/Yolanda Route PRN Reason Start Time Stop Time Status Last Admin Dose Admin Acetaminophen (Tylenol) 500 mg Q6HR PRN ORAL Mild Pain 1-3 10/17/20 17:45 11/16/20 17:44 Acetaminophen (Tylenol) 500 mg Q6HR PRN ORAL fever >100 10/17/20 18:00 11/16/20 17:59 Acetaminophen (Tylenol) 650 mg Q4H PRN ORAL Pain Scale (6-10) 10/17/20 19:15 11/16/20 19:14 Albumin Human 500 ml @ 0 mls/hr Q0M IV 10/19/20 11:00 10/19/20 23:59 Apixaban (Eliquis) 2.5 mg BID ORAL 10/19/20 18:00 01/17/21 17:59 Barium Sulfate (Varibar Honey) 250 ml NOW PRN MC RAD 10/18/20 15:00 10/21/20 14:49 Barium Sulfate (Varibar [place]) 240 ml NOW PRN MC RAD 10/18/20 15:00 10/21/20 14:49 Barium Sulfate (Varibar Pudding) 230 ml NOW PRN MC RAD 10/18/20 15:00 10/21/20 14:49 Barium Sulfate (Varibar Thin Liquid powder) 148 gm NOW PRN MC RAD 10/18/20 15:00 10/21/20 14:49 Ceftriaxone Sodium 1 gm/ Dextrose 55 ml @ 110 mls/hr Q24H IVPB 10/19/20 13:00 10/26/20 12:59 10/19/20 13:07 Chlorhexidine Gluconate (Eve-Hex 2%) 1 applic QHS TOPIC 10/18/20 20:00 01/16/21 19:59 10/18/20 21:00 Dextrose/Sodium Chloride 1,000 ml @ 50 mls/hr Q20H IV 10/17/20 18:45 11/16/20 18:44 10/18/20 22:13 Docusate Sodium (Colace) 100 mg TID ORAL 10/18/20 09:00 11/17/20 08:59 10/19/20 13:07 Famotidine (Pepcid) 20 mg DAILY ORAL 10/18/20 09:00 01/16/21 08:59 10/19/20 09:38 Levothyroxine Sodium (Synthroid) 50 mcg DAILY@0630 ORAL 10/19/20 06:30 11/18/20 06:29 10/19/20 07:05 Metoprolol Tartrate (Lopressor) 25 mg EVERY 12 HOURS ORAL 10/19/20 21:00 01/17/21 20:59 Midodrine (Pro-Amatine) 10 mg Q8HR ORAL 10/18/20 14:00 01/16/21 13:59 10/19/20 13:07 Ondansetron HCl (Zofran) 4 mg Q6H PRN IVP Nausea & Vomiting 10/17/20 21:15 11/16/20 21:14 Assessment/Plan Assessment/Plan 1. CHF, mild. 2. CAD/previous non-STEMI. 3. snf resident. 4. Bradycardia. 5. Atrial fibrillation. -Started on Eliquis 6. Renal insufficiency. -Nephro following 7. Troponin leak. Cardio following 8. COVID-19 pneumonia, without fever or leukocytosis -On antibiotics per ID - We will hold off any specific therapy says she remains normoxemic on room air 9. Hypoxemia on admission; improved -Currently saturating well on room air -Monitor for hypoxia and provide supplemental oxygen as needed DVT ppx - s/p Lovenox subcu -Now on Eliquis The care of this patient was discussed with my supervising physician Time spent for this encounter was approximately 31 minutes Tl Pedro Oct 19, 2020 13:30
--- NOTE | 2020-10-19 14:01 | NUR ---
spoke with radiology physician about 2-D echo and was informed that another 2-D echo cannot be done because one was done yesterday. see pt chart for printed results from yesterday's 2-D echo
--- NOTE | 2020-10-19 14:14 | Consultation ---
DATE OF CONSULTATION: 10/19/2020 INFECTIOUS DISEASE CONSULTATION CONSULTING PHYSICIAN: Luis Alvarado MD. PRIMARY ATTENDING PHYSICIAN: Neri Dumont MD. REASON FOR CONSULTATION: Pneumonia. HISTORY OF PRESENT ILLNESS: This is an 85-year-old [place] female admitted on October 17, 2020 from longterm because of bradycardia, had heart rate of 40 to 60, also was anemic. The patient also had a recent history of COVID-19, test become positive two weeks ago, was found to have acute renal failure. PAST MEDICAL HISTORY: CHF, non-ST AK, atrial fibrillation, history of COVID, hypothyroidism, anemia, right knee surgery, pressure ulcer. ALLERGIES: No known drug allergies. MEDICATIONS: Ceftriaxone, albumin, Levaquin, midodrine, enoxaparin, famotidine, Colace, Tylenol. SOCIAL HISTORY: . [facility] resident. Next of kin is son. No other history obtainable by the patient. PHYSICAL EXAMINATION: VITAL SIGNS: Temperature 97.1, pulse 66, blood pressure is 98/57, getting oxygen by nasal cannula 4 liters. GENERAL APPEARANCE: Seems to be well developed. HEAD AND NECK: Has dry mouth. HEART: Normal rate. LUNGS: Clear. ABDOMEN: Soft. EXTREMITIES: Has trace edema of legs. LABORATORY AND DIAGNOSTIC DATA: WBC 6.5, hemoglobin 9.7, hematocrit 31.9, and platelets is 134. Sodium 137, potassium 4.8, chloride 102, bicarb 36, BUN 41, creatinine 2, glucose 103. BNP more than 35,000. Troponin was elevated at 0.218. Chest x-ray, mild CHF, cardiomegaly, pulmonary vascular congestion, atelectasis versus infiltrate in left lung base. 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 IMPRESSION: Abnormal chest x-ray, atelectasis versus infiltrate in the left lung base, has also recent history of COVID disease, seems to have acute renal failure, has severe aortic stenosis on echocardiogram, has atrial fibrillation, hypothyroidism, anemia. RECOMMENDATION: Continue ceftriaxone. We will follow up the culture. We will follow up the chest x-ray. At the end of my exam, I thank Dr. Dumont for involving me in the care of this patient. Luis Alvarado M.D. DR: TORY JOB#: [id number] CC: MAXX
--- NOTE | 2020-10-19 15:29 | Consultation ---
DATE OF CONSULTATION: 10/19/2020 CARDIOLOGY CONSULTATION CONSULTING PHYSICIAN: Terry Reyes MD. REFERRING PHYSICIAN: Neri Dumont MD. REASON FOR CONSULTATION: Atrial fibrillation, elevated troponin. HISTORY OF PRESENT ILLNESS: The patient is an 85-year-old lady with history of hypertension, congestive heart failure, and coronary artery disease, who was admitted for bradycardia. The patient is known to be COVID positive, however, saturating well on nasal oxygen. The COVID was positive two weeks ago and was bradycardic in the emergency room. The patient subsequently was noted to have atrial fibrillation, but the rate was controlled. Her troponin was also mildly elevated. REVIEW OF SYSTEMS: Negative other than what is mentioned in the history of present illness. PAST MEDICAL HISTORY: As mentioned above. FAMILY HISTORY: Noncontributory. SOCIAL HISTORY: She is a jail resident. Does not smoke or drink alcohol. PHYSICAL EXAMINATION: VITAL SIGNS: Blood pressure 108/61, pulse is 66, respirations 18, temperature 97.1. HEAD AND NECK: No JVD. LUNGS: Decreased breath sounds. CARDIOVASCULAR: Irregular S1 and S2 with no gallop. ABDOMEN: Soft. EXTREMITIES: No pitting edema. LABORATORY AND DIAGNOSTIC DATA: EKG showed atrial fibrillation, rate of as well as T-wave inversion. Labs show white count 6.5, hemoglobin 9.7, hematocrit 31.9, and platelet count is 134. Sodium 137, potassium 5.0, BUN of 44, creatinine 2.1 and glucose of 93. Troponin is 0.194, 0.218 and 0.181. ASSESSMENT AND PLAN: 1. Non-ST elevation myocardial infarction with elevated troponin of more than 0.2. The level has come down to 0.19, but the levels are essentially flat, renal failure as the creatinine is 2.1. The patient has non-ST elevation myocardial infarction. We will add aspirin, beta-arin and statin to her medical regimen. 2. Atrial fibrillation with rapid ventricular response. The heart rate is better in the 90s, again start on low-dose beta-arin. 3. Questionable bradycardia. The heart rate has been in the 80s and 90s. It is possible that they could not record the heart beat in view of the patient's atrial fibrillation. 4. History of previous non-ST elevation myocardial infarction. 5. Renal insufficiency. 6. Status post COVID pneumonia, was tested positive more than two weeks ago, currently on Lovenox. Thank you very much for allowing me to participate in the care of this patient. Please do not hesitate to contact me for any questions regarding my evaluation. Terry Reyes M.D. DR: WING JOB#: [id number] CC:
[2020-10-19 16:00] VITALS: BP 133/72
--- NOTE | 2020-10-19 17:28 | NUR ---
NURSE NOTES: R hand i Addendum: 10/19/20 at 1734 by Baljit Smallwood RN R hand IV became sluggish and occluded so an attempt for new IV was started. Attempted with 3 different nurses. notified MD Dumont and requested PICC line insertion. recommended to notify MD avery Addendum: 10/19/20 at 1735 by Baljit Smallwood RN recommended to notify MD Anahy Alvarado. called Anahy Pyle and left a voicemail.
[2020-10-19] MEDS: Eliquis 2.5mg tablet ORAL SCH (18:00)
--- NOTE | 2020-10-19 18:00 | NUR ---
Speech Pathology Note (Bedside Dysphagia Evaluation) Brief Note: Ms. Phillips is an 85 year old female admitted from [facility] on 10/17/2020 for bradycardia in setting of NSTEMI. 10/17/2020: CBC: 7.7/8.1/26.8/143 Coa.7/28/1.1 Electrolytes: 138/5.2/101/35/41/1.7/89 troponin: 0.21 BNP: 34120 LFT: negative 10/18/2020: TTE: LVEF 70~75% enlarged bi atrial Severe severely thickened mitral valve leaflets Moderate to severe TR Pumonary HTN Current BUN/Creatine: 44/2.1 Findings: Ms. Mattson is alert. Her oral cavity is dry. She refused PO including water, or apple sauce. Her voice is intact. Her length of utterance per breathe is short. I do not hear the wheezing or crackle. Interpretation: 1. Refusal of PO trial Plan: 1. Resume half-way Po diet (pureed and thin liquid) 2. Aspiration risk in setting of heart failure -Cardiac following Neptali Sanderson
--- NOTE | 2020-10-19 19:10 | NUR ---
NURSE NOTES: Received report from SERGIO Smiley. Pt is A/O x2 and verbally responsive. Pt speaking Farsi. No SOB or acute distress noted but pt wear NC 4L with saturation of 97% but pt continue to takes of the NC. Pt has a IV running IV fluid running on [place] as ordered. No pain noted. Pt bed in lowest position and locked with side rails x2.Call light placed within reach. Will continue plan of care.
--- NOTE | 2020-10-19 19:48 | NUR ---
NURSE HAND-OFF REPORT: Important Events on Shift:[] pt refused meds and food. IV placed on the R thumb. Patient Status: [] full code Diet: [] pureed nectar thick Pending Orders: [] Pending Results/Labs:[] Pending MD notification:[] Latest Vital Signs: Temperature 97.3 , Pulse 92 , B/P 133 /72 , Respiratory Rate 20 , O2 SAT 95 , Nasal Cannula, O2 Flow Rate 4.0 . Vital Sign Comment: [] EKG Rhythm: A-fib Rhythm change?: N MD Notified?: - MD Response: Latest Elizabeth Fall Score: 70 Fall Risk: High Risk Safety Measures: Call light Within Reach, Bed Alarm Zone 1, Side Rails Side Rails x3, Bed position Low and Locked. Fall Precautions: Yellow Socks Patient Fall Education Report given to [].Lashae HILL
[2020-10-19 20:00] VITALS: BP 133/72
[2020-10-19] MEDS: Dyna-Hex 2% Top Sol 2oz TOPIC SCH (20:13)
--- NOTE | 2020-10-19 21:29 | General Progress Note ---
Subjective ROS Limited/Unobtainable: Yes Allergies: Coded Allergies: No Known Allergies (Unverified , 10/17/20) Objective Last 24 Hour Vital Signs Date Time Temp Pulse Resp B/P (MAP) Pulse Ox O2 Delivery O2 Flow Rate FiO2 10/19/20 16:00 92 10/19/20 16:00 97.3 86 20 133/72 (92) 95 10/19/20 12:00 97.6 86 20 132/66 (88) 95 10/19/20 12:00 88 10/19/20 09:00 Nasal Cannula 4.0 10/19/20 08:00 99 10/19/20 08:00 97.1 66 20 108/61 (77) 95 10/19/20 04:00 97.9 85 20 98/57 (71) 98 10/19/20 04:00 97 10/19/20 00:00 98.0 84 20 96/59 (71) 98 10/19/20 00:00 99 Intake and Output 10/18/20 10/19/20 19:00 07:00 Output Total 50 ml 100 ml Balance -50 ml -100 ml Output Urine Total 50 ml 100 ml # Voids 1 Laboratory Tests 10/19/20 11:00: White Blood Count 6.5, Red Blood Count 3.29L, Hemoglobin 9.7#L, Hematocrit 31.9#L, Mean Corpuscular Volume 97, Mean Corpuscular Hemoglobin 29.5, Mean Corpuscular Hemoglobin Concent 30.4L, Red Cell Distribution Width 18.6H, Platelet Count 134L, Mean Platelet Volume 9.1, Neutrophils (%) (Auto) 84.3H, Lymphocytes (%) (Auto) 8.2L, Monocytes (%) (Auto) 5.6, Eosinophils (%) (Auto) 0.7, Basophils (%) (Auto) 1.1, Sodium Level 137, Potassium Level 5.0, Chloride Level 100, Carbon Dioxide Level 31, Anion Gap 6, Blood Urea Nitrogen 44H, Creatinine 2.1H, Estimat Glomerular Filtration Rate 22.5, Glucose Level 93, Uric Acid 9.4H, Calcium Level 8.2L, Phosphorus Level 3.2, Magnesium Level 2.5H, Total Bilirubin 1.0, Aspartate Amino Transf (AST/SGOT) 16, Alanine Aminotransferase (ALT/SGPT) 12, Alkaline Phosphatase 57, C-Reactive Protein, Quantitative 4.2H, Pro-B-Type Natriuretic Peptide > 06296K, Total Protein 5.6L, Albumin 2.7L, Globulin 2.9, Albumin/Globulin Ratio 0.9L, Free Triiodothyronine 0.6L Height (Feet): 5 Weight (Pounds): 145 Assessment/Plan Problem List: (1) Anemia ICD Codes: D64.9 - Anemia, unspecified SNOMED: 877558398 (2) Acute kidney injury ICD Codes: N17.9 - Acute kidney failure, unspecified SNOMED: 06099838, 0132727 (3) Atrial fibrillation ICD Codes: I48.91 - Unspecified atrial fibrillation SNOMED: 31530447 (4) Elevated troponin ICD Codes: R77.8 - Other specified abnormalities of plasma proteins SNOMED: 398969516, 030004089, 616792238 (5) Malnutrition ICD Codes: E46 - Unspecified protein-calorie malnutrition SNOMED: 62745414 (6) Pneumonia due to COVID-19 virus ICD Codes: U07.1 - COVID-19; J12.82 - Pneumonia due to coronavirus disease 2019 SNOMED: 848207024710729005 (7) Hypothyroidism ICD Codes: E03.9 - Hypothyroidism, unspecified SNOMED: 94483098 Status: progressing Assessment/Plan: covid + bradycardia a fib anemia arf afebrile Neri Dumont MD Oct 19, 2020 21:29
[2020-10-20] VITALS: BP 114/75
[2020-10-20 04:00] VITALS: BP 113/59
[2020-10-20] MEDS: Midodrine 10mg tab ORAL SCH ×3 (05:28→21:09)
[2020-10-20] MEDS: D5 1/2NS 1,000 ML IV SCH (05:28)
--- NOTE | 2020-10-20 06:31 | Hematology/Onc Progress Note ---
Assessment/Plan Assessment/Plan Assessment and recs # Anemia r/o gi bleed --> anemia panel has been ordered-->reviewed --> hgb 8.1->9.3->9.7 --> no hemolysis is noted --> transfuse on prn basis # Hypercoag disorder with Atrial fibrillation --> consider anticoag as per cards --> if bleeding, consider hold anticoag # Elevated trop --> per cards # Hyperkalemia --> per renal # Acute kidney injury --> per renal # Recently COVID-19 positive # Dvt ppx scds --> lovenox sq Appreciate consultation and rosio rn Subjective HEENT: Denies: no symptoms, eye pain, blurred vision, tearing, double vision, ear pain, ear discharge, nose pain, nose congestion, throat pain, throat swelling, mouth pain, mouth swelling, other Cardiovascular: Denies: no symptoms, chest pain, edema, irregular heart rate, lightheadedness, palpitations, syncope, other Respiratory: Denies: no symptoms, cough, shortness of breath, SOB with excert ion, SOB at rest, sputum, wheezing, other Gastrointestinal/Abdominal: Denies: no symptoms, abdomen distended, abdominal pain, black stools, tarry stools, blood in stool, constipated, diarrhea, difficulty swallowing, nausea, poor appetite, poor fluid intake, rectal bleeding, vomiting, other Neurologic/Psychiatric: Denies: no symptoms, anxiety, depressed, emotional problems, headache, numbness, paresthesia, pre-existing deficit, seizure, tingling, tremors, weakness, other Endocrine: Denies: no symptoms, excessive sweating, flushing, intolerance to cold, intolerance to heat, increased hunger, increased thirst, increased urine, unexplained weight gain, unexplained weight loss, other Allergies: Coded Allergies: No Known Allergies (Unverified , 10/17/20) Subjective 10/19 cbc is pending, did get blood transfusion last night, pending results 10/20 meds noted, no bleeding, labs reviewed, rosio rn, no new changes Objective Objective Current Medications Medications (Trade) Dose Ordered Sig/Yolanda Route PRN Reason Start Time Stop Time Status Last Admin Dose Admin Acetaminophen (Tylenol) 500 mg Q6HR PRN ORAL Mild Pain 1-3 10/17/20 17:45 11/16/20 17:44 Acetaminophen (Tylenol) 500 mg Q6HR PRN ORAL fever >100 10/17/20 18:00 11/16/20 17:59 Acetaminophen (Tylenol) 650 mg Q4H PRN ORAL Pain Scale (6-10) 10/17/20 19:15 11/16/20 19:14 Apixaban (Eliquis) 2.5 mg BID ORAL 10/19/20 18:00 01/17/21 17:59 Barium Sulfate (Varibar Honey) 250 ml NOW PRN MC RAD 10/18/20 15:00 10/21/20 14:49 Barium Sulfate (Varibar [place]) 240 ml NOW PRN MC RAD 10/18/20 15:00 10/21/20 14:49 Barium Sulfate (Varibar Pudding) 230 ml NOW PRN MC RAD 10/18/20 15:00 10/21/20 14:49 Barium Sulfate (Varibar Thin Liquid powder) 148 gm NOW PRN MC RAD 10/18/20 15:00 10/21/20 14:49 Ceftriaxone Sodium 1 gm/ Dextrose 55 ml @ 110 mls/hr Q24H IVPB 10/19/20 13:00 10/26/20 12:59 10/19/20 13:07 Chlorhexidine Gluconate (Eve-Hex 2%) 1 applic QHS TOPIC 10/18/20 20:00 01/16/21 19:59 10/18/20 21:00 Dextrose/Sodium Chloride 1,000 ml @ 50 mls/hr Q20H IV 10/17/20 18:45 11/16/20 18:44 10/20/20 05:28 Docusate Sodium (Colace) 100 mg TID ORAL 10/18/20 09:00 11/17/20 08:59 10/19/20 13:07 Famotidine (Pepcid) 20 mg DAILY ORAL 10/18/20 09:00 01/16/21 08:59 10/19/20 09:38 Levothyroxine Sodium (Synthroid) 50 mcg DAILY@0630 ORAL 10/19/20 06:30 11/18/20 06:29 10/20/20 05:28 Metoprolol Tartrate (Lopressor) 25 mg EVERY 12 HOURS ORAL 10/19/20 21:00 01/17/21 20:59 10/19/20 21:38 Midodrine (Pro-Amatine) 10 mg Q8HR ORAL 10/18/20 14:00 01/16/21 13:59 10/20/20 05:28 Ondansetron HCl (Zofran) 4 mg Q6H PRN IVP Nausea & Vomiting 10/17/20 21:15 11/16/20 21:14 Last 24 Hour Vital Signs Date Time Temp Pulse Resp B/P (MAP) Pulse Ox O2 Delivery O2 Flow Rate FiO2 10/20/20 04:00 85 10/20/20 04:00 97.4 80 20 113/59 (77) 97 10/20/20 00:00 97.3 86 20 114/75 (88) 98 10/19/20 21:38 92 133/72 10/19/20 21:00 Nasal Cannula 4.0 10/19/20 20:00 92 10/19/20 20:00 97.3 86 20 133/72 (92) 95 10/19/20 16:00 92 10/19/20 16:00 97.3 86 20 133/72 (92) 95 10/19/20 12:00 97.6 86 20 132/66 (88) 95 10/19/20 12:00 88 10/19/20 09:00 Nasal Cannula 4.0 10/19/20 08:00 99 10/19/20 08:00 97.1 66 20 108/61 (77) 95 10/19/20 04:00 97.9 85 20 98/57 (71) 98 10/19/20 04:00 97 10/19/20 00:00 98.0 84 20 96/59 (71) 98 10/19/20 00:00 99 10/18/20 21:00 Nasal Cannula 4.0 10/18/20 20:00 98.6 61 20 121/58 (79) 98 10/18/20 20:00 92 10/18/20 16:00 96.3 88 20 97/50 (66) 100 10/18/20 16:00 74 10/18/20 12:00 97.5 66 20 89/38 (55) 100 10/18/20 12:00 72 10/18/20 09:00 Nasal Cannula 4.0 10/18/20 08:00 97.5 68 18 106/39 (61) 100 10/18/20 08:00 69 Intake and Output 10/19/20 10/20/20 19:00 07:00 Intake Total 50 ml 470 ml Output Total 250 ml 200 ml Balance -200 ml 270 ml Intake Oral 120 ml IV Total 50 ml 350 ml Output Urine Total 250 ml 200 ml # Voids 1 # Bowel Movements 1 Labs Test 10/17/20 13:10 10/17/20 16:39 10/17/20 17:24 10/17/20 18:20 White Blood Count 7.7 K/UL (4.8-10.8) Red Blood Count 2.73 M/UL (4.20-5.40) Hemoglobin 8.1 G/DL (12.0-16.0) Hematocrit 26.8 % (37.0-47.0) Mean Corpuscular Volume 98 FL (80-99) Mean Corpuscular Hemoglobin 29.8 PG (27.0-31.0) Mean Corpuscular Hemoglobin Concent 30.4 G/DL (32.0-36.0) Red Cell Distribution Width 18.6 % (11.6-14.8) Platelet Count 143 K/UL (150-450) Mean Platelet Volume 8.9 FL (6.5-10.1) Neutrophils (%) (Auto) % (45.0-75.0) Lymphocytes (%) (Auto) % (20.0-45.0) Monocytes (%) (Auto) % (1.0-10.0) Eosinophils (%) (Auto) % (0.0-3.0) Basophils (%) (Auto) % (0.0-2.0) Differential Total Cells Counted 100 Neutrophils % (Manual) 84 % (45-75) Lymphocytes % (Manual) 12 % (20-45) Monocytes % (Manual) 2 % (1-10) Eosinophils % (Manual) 0 % (0-3) Basophils % (Manual) 0 % (0-2) Band Neutrophils 2 % (0-8) Platelet Estimate Decreased Platelet Morphology Normal Hypochromasia 1+ Anisocytosis 1+ Prothrombin Time 11.7 SEC (9.30-11.50) Prothromb Time International Ratio 1.1 (0.9-1.1) Activated Partial Thromboplast Time 28 SEC (23-33) Sodium Level 138 MMOL/L (136-145) Potassium Level 5.2 MMOL/L (3.5-5.1) Chloride Level 101 MMOL/L (98-107) Carbon Dioxide Level 35 MMOL/L (21-32) Anion Gap 2 mmol/L (5-15) Blood Urea Nitrogen 41 mg/dL (7-18) Creatinine 1.7 MG/DL (0.55-1.30) Estimat Glomerular Filtration Rate 28.7 mL/min (>60) Glucose Level 89 MG/DL (74-106) Calcium Level 8.2 MG/DL (8.5-10.1) Phosphorus Level 3.1 MG/DL (2.5-4.9) Magnesium Level 2.4 MG/DL (1.8-2.4) Total Bilirubin 1.0 MG/DL (0.2-1.0) Aspartate Amino Transf (AST/SGOT) 17 U/L (15-37) Alanine Aminotransferase (ALT/SGPT) 11 U/L (12-78) Alkaline Phosphatase 53 U/L (46-116) Troponin I 0.181 ng/mL (0.000-0.056) Total Protein 5.4 G/DL (6.4-8.2) Albumin 2.3 G/DL (3.4-5.0) Globulin 3.1 g/dL Albumin/Globulin Ratio 0.7 (1.0-2.7) POC Whole Blood Glucose 92 MG/DL (74-106) Test 10/17/20 19:06 10/17/20 19:15 10/17/20 21:58 10/17/20 23:00 Troponin I 0.218 ng/mL (0.000-0.056) POC Whole Blood Glucose 107 MG/DL (74-106) Urine Color Yellow Urine Appearance Very cloudy Urine pH 5 (4.5-8.0) Urine Specific [place] 1.015 (1.005-1.035) Urine Protein 2+ (NEGATIVE) Urine Glucose (UA) Negative (NEGATIVE) Urine Ketones Negative (NEGATIVE) Urine Blood 4+ (NEGATIVE) Urine Nitrite Negative (NEGATIVE) Urine Bilirubin Negative (NEGATIVE) Urine Urobilinogen Normal MG/DL (0.0-1.0) Urine Leukocyte Esterase 3+ (NEGATIVE) Urine RBC 40-60 /HPF (0 - 2) Urine WBC Tntc /HPF (0 - 2) Urine Squamous Epithelial Cells Moderate /LPF (NONE/OCC) Urine Amorphous Sediment Moderate /LPF (NONE) Urine Bacteria Many /HPF (NONE) Urine Yeast Moderate /HPF (NONE) Urine Random Sodium 18 mmol/L (20-110) Test 10/18/20 07:40 10/19/20 11:00 White Blood Count 4.9 K/UL (4.8-10.8) 6.5 K/UL (4.8-10.8) Red Blood Count 2.44 M/UL (4.20-5.40) 3.29 M/UL (4.20-5.40) Hemoglobin 7.3 G/DL (12.0-16.0) 9.7 G/DL (12.0-16.0) Hematocrit 24.1 % (37.0-47.0) 31.9 % (37.0-47.0) Mean Corpuscular Volume 99 FL (80-99) 97 FL (80-99) Mean Corpuscular Hemoglobin 30.0 PG (27.0-31.0) 29.5 PG (27.0-31.0) Mean Corpuscular Hemoglobin Concent 30.3 G/DL (32.0-36.0) 30.4 G/DL (32.0-36.0) Red Cell Distribution Width 18.6 % (11.6-14.8) 18.6 % (11.6-14.8) Platelet Count 124 K/UL (150-450) 134 K/UL (150-450) Mean Platelet Volume 10.1 FL (6.5-10.1) 9.1 FL (6.5-10.1) Neutrophils (%) (Auto) % (45.0-75.0) 84.3 % (45.0-75.0) Lymphocytes (%) (Auto) % (20.0-45.0) 8.2 % (20.0-45.0) Monocytes (%) (Auto) % (1.0-10.0) 5.6 % (1.0-10.0) Eosinophils (%) (Auto) % (0.0-3.0) 0.7 % (0.0-3.0) Basophils (%) (Auto) % (0.0-2.0) 1.1 % (0.0-2.0) Differential Total Cells Counted 100 Neutrophils % (Manual) 85 % (45-75) Lymphocytes % (Manual) 9 % (20-45) Monocytes % (Manual) 6 % (1-10) Eosinophils % (Manual) 0 % (0-3) Basophils % (Manual) 0 % (0-2) Band Neutrophils 0 % (0-8) Platelet Estimate Decreased Platelet Morphology Normal Hypochromasia 1+ Anisocytosis 1+ Reticulocyte Count 2.5 % (0.5-2.0) Sodium Level 137 MMOL/L (136-145) 137 MMOL/L (136-145) Potassium Level 4.8 MMOL/L (3.5-5.1) 5.0 MMOL/L (3.5-5.1) Chloride Level 102 MMOL/L (98-107) 100 MMOL/L (98-107) Carbon Dioxide Level 36 MMOL/L (21-32) 31 MMOL/L (21-32) Blood Urea Nitrogen 41 mg/dL (7-18) 44 mg/dL (7-18) Creatinine 2.0 MG/DL (0.55-1.30) 2.1 MG/DL (0.55-1.30) Estimat Glomerular Filtration Rate 23.8 mL/min (>60) 22.5 mL/min (>60) Glucose Level 103 MG/DL (74-106) 93 MG/DL (74-106) Hemoglobin A1c 5.2 % (4.3-6.0) Lactic Acid Level 0.80 mmol/L (0.4-2.0) Uric Acid 8.7 MG/DL (2.6-7.2) 9.4 MG/DL (2.6-7.2) Calcium Level 8.0 MG/DL (8.5-10.1) 8.2 MG/DL (8.5-10.1) Phosphorus Level 3.5 MG/DL (2.5-4.9) 3.2 MG/DL (2.5-4.9) Magnesium Level 2.8 MG/DL (1.8-2.4) 2.5 MG/DL (1.8-2.4) Iron Level 40 ug/dL (50-175) Total Iron Binding Capacity 160 ug/dL (250-450) Percent Iron Saturation 25 % (15-50) Unsaturated Iron Binding 120 ug/dL (112-346) Ferritin 166 NG/ML (8-388) Total Bilirubin 0.7 MG/DL (0.2-1.0) 1.0 MG/DL (0.2-1.0) Gamma Glutamyl Transpeptidase 19 U/L (5-85) Aspartate Amino Transf (AST/SGOT) 14 U/L (15-37) 16 U/L (15-37) Alanine Aminotransferase (ALT/SGPT) 10 U/L (12-78) 12 U/L (12-78) Alkaline Phosphatase 45 U/L (46-116) 57 U/L (46-116) Lactate Dehydrogenase 217 U/L (135-225) Total Creatine Kinase 22 U/L (26-308) Troponin I 0.194 ng/mL (0.000-0.056) C-Reactive Protein, Quantitative 4.7 mg/dL (0.00-0.90) 4.2 mg/dL (0.00-0.90) Pro-B-Type Natriuretic Peptide > 62288 pg/mL (0-125) > 19034 pg/mL (0-125) Total Protein 4.7 G/DL (6.4-8.2) 5.6 G/DL (6.4-8.2) Albumin 2.0 G/DL (3.4-5.0) 2.7 G/DL (3.4-5.0) Globulin 2.7 g/dL 2.9 g/dL Albumin/Globulin Ratio 0.7 (1.0-2.7) 0.9 (1.0-2.7) Triglycerides Level 102 MG/DL (30-150) Cholesterol Level 98 MG/DL (< 200) LDL Cholesterol 51 mg/dL (<100) HDL Cholesterol 36 MG/DL (40-60) Cholesterol/HDL Ratio 2.7 (3.3-4.4) Vitamin B12 Level 574 PG/ML (193-986) Folate 10.0 NG/ML (8.6-58.9) Thyroid Stimulating Hormone (TSH) 9.619 uiU/mL (0.358-3.740) Free Thyroxine 0.57 NG/DL (0.76-1.46) Anion Gap 6 mmol/L (5-15) Free Triiodothyronine 0.6 pg/mL (2.3-4.2) Height (Feet): 5 Weight (Pounds): 145 Objective Physical Exam General: Awake and alert, no acute distress HEENT: NC/AT. EOMI. Cardiovascular: Irregularly irregular rhythm. Normal heart rate Resp: Normal work of breathing. No cough, wheezing or crackles appreciated Abdomen: Abdomen is soft, nondistended. Nontender Skin: Intact. No abrasions, laceration or rash over the exposed skin MSK: Normal tone and bulk. Moving all extremities. No obvious deformity. Neuro: Awake and alert. Mentating appropriately. Hawk Ma MD Oct 20, 2020 06:31
--- NOTE | 2020-10-20 07:00 | NUR ---
NURSE NOTES: Received report from SERGIO Bhardwaj. Patient observed to be on contact and droplet precaution for (+) covid. Patient observed to be awake, alert and oriented x2. Seen lying in bed with HOB elevated currently on 4L NC no s/sx of SOB/Distress, no c/o any pain or discomfort. Patient with iv site located on R thumb gauge 20 d51/2ns @[address], intact, and patent. Patient with 16f rothman draining well. Bed placed on lowest and locked, call light placed within reach and will continue to monitor for any changes in patient's condition.
--- NOTE | 2020-10-20 07:22 | NUR ---
NURSE HAND-OFF REPORT: Important Events on Shift: Pt able to take medications but took 45 minutes to get pt to take. Will endorse. Patient Status: Stable Diet: Regular Puree NTL Pending Orders: Pending Results/Labs: Pending MD notification: Latest Vital Signs: Temperature 97.6 , Pulse 83 , B/P 138 /72 , Respiratory Rate 20 , O2 SAT 94 , Nasal Cannula, O2 Flow Rate 4.0 . Vital Sign Comment: EKG Rhythm: A-fib Rhythm change?: N MD Notified?: - MD Response: Latest Elizabeth Fall Score: 70 Fall Risk: High Risk Safety Measures: Call light Within Reach, Bed Alarm Zone 1, Side Rails Side Rails x3, Bed position Low and Locked. Fall Precautions: Yellow Socks Patient Fall Education Report given to Ami.
[2020-10-20 07:47] LABS: HEMATOCRIT 29.7 % (37.0-47.0); HEMOGLOBIN 9.5 G/DL (12.0-16.0); MEAN CORPUSCULAR VOLUME 96 FL (80-99); PLATELET COUNT 138 K/UL (150-450); RED BLOOD COUNT 3.09 M/UL (4.20-5.40); RED CELL DISTRIBUTION WIDTH 18.2 % (11.6-14.8); WHITE BLOOD COUNT 6.3 K/UL (4.8-10.8)
[2020-10-20 08:00] VITALS: BP 139/78
[2020-10-20 08:02] LABS: CALCIUM 8.2 MG/DL (8.5-10.1); CREATININE 2.1 MG/DL (0.55-1.30); POTASSIUM 4.5 MMOL/L (3.5-5.1)
[2020-10-20] MEDS: Eliquis 2.5mg tablet ORAL SCH ×3 (08:46→17:57)
[2020-10-20] MEDS: Docusate 100mg cap ORAL SCH ×4 (08:46→17:57)
--- NOTE | 2020-10-20 11:13 | Pulmonology Progress Note ---
Subjective ROS Limited/Unobtainable: Yes Interval Events: None major reported per nursing Constitutional: Reports: no symptoms HEENT: Repors: no symptoms Respiratory: Reports: no symptoms Cardiovascular: Reports: no symptoms Gastrointestinal/Abdominal: Reports: no symptoms Allergies: Coded Allergies: No Known Allergies (Unverified , 10/17/20) Objective Last 24 Hour Vital Signs Date Time Temp Pulse Resp B/P (MAP) Pulse Ox O2 Delivery O2 Flow Rate FiO2 10/20/20 09:00 Nasal Cannula 4.0 10/20/20 08:52 64 139/78 10/20/20 08:00 97.0 64 20 139/78 (98) 91 10/20/20 08:00 87 10/20/20 04:00 85 10/20/20 04:00 97.4 80 20 113/59 (77) 97 10/20/20 00:00 97.3 86 20 114/75 (88) 98 10/19/20 21:38 92 133/72 10/19/20 21:00 Nasal Cannula 4.0 10/19/20 20:00 92 10/19/20 20:00 97.3 86 20 133/72 (92) 95 10/19/20 16:00 92 10/19/20 16:00 97.3 86 20 133/72 (92) 95 10/19/20 12:00 97.6 86 20 132/66 (88) 95 10/19/20 12:00 88 Intake and Output0 10/19/20 10/20/20 19:00 07:00 Intake Total 50 ml 470 ml Output Total 250 ml 200 ml Balance -200 ml 270 ml Intake Oral 120 ml IV Total 50 ml 350 ml Output Urine Total 250 ml 200 ml # Voids 1 # Bowel Movements 1 General Appearance: no acute distress HEENT: atraumatic Respiratory: lungs clear Cardiovascular: normal rate, regular rhythm Abdomen: soft, non tender Microbiology Date/Time Source Procedure Growth Status 10/17/20 23:00 Urine,Clean Catch Urine Culture - Preliminary Yeast Species Resulted Laboratory Tests 10/20/20 07:16: White Blood Count 6.3, Red Blood Count 3.09L, Hemoglobin 9.5L, Hematocrit 29.7L, Mean Corpuscular Volume 96, Mean Corpuscular Hemoglobin 30.6, Mean Corpuscular Hemoglobin Concent 32.0, Red Cell Distribution Width 18.2H, Platelet Count 138L, Mean Platelet Volume 8.8, Neutrophils (%) (Auto) , Lymphocytes (%) (Auto) , Monocytes (%) (Auto) , Eosinophils (%) (Auto) , Basophils (%) (Auto) , Differential Total Cells Counted 100, Neutrophils % (Manual) 82H, Lymphocytes % (Manual) 10L, Monocytes % (Manual) 4, Eosinophils % (Manual) 2, Basophils % (Manual) 0, Band Neutrophils 2, Platelet Estimate DecreasedL, Platelet Morphology Normal, Hypochromasia 1+, Anisocytosis 1+, Sodium Level 136, Potassium Level 4.5, Chloride Level 101, Carbon Dioxide Level 29, Anion Gap 6, Blood Urea Nitrogen 43H, Creatinine 2.1H, Estimat Glomerular Filtration Rate 2 2.5, Glucose Level 106, Calcium Level 8.2L Current Medications Medications (Trade) Dose Ordered Sig/Yolanda Route PRN Reason Start Time Stop Time Status Last Admin Dose Admin Acetaminophen (Tylenol) 500 mg Q6HR PRN ORAL Mild Pain 1-3 10/17/20 17:45 11/16/20 17:44 Acetaminophen (Tylenol) 500 mg Q6HR PRN ORAL fever >100 10/17/20 18:00 11/16/20 17:59 Acetaminophen (Tylenol) 650 mg Q4H PRN ORAL Pain Scale (6-10) 10/17/20 19:15 11/16/20 19:14 Apixaban (Eliquis) 2.5 mg BID ORAL 10/19/20 18:00 01/17/21 17:59 Barium Sulfate (Varibar Honey) 250 ml NOW PRN MC RAD 10/18/20 15:00 10/21/20 14:49 Barium Sulfate (Varibar [place]) 240 ml NOW PRN MC RAD 10/18/20 15:00 10/21/20 14:49 Barium Sulfate (Varibar Pud[place]) 230 ml NOW PRN MC RAD 10/18/20 15:00 10/21/20 14:49 Barium Sulfate (Varibar Thin Liquid powder) 148 gm NOW PRN MC RAD 10/18/20 15:00 10/21/20 14:49 Ceftriaxone Sodium 1 gm/ Dextrose 55 ml @ 110 mls/hr Q24H IVPB 10/19/20 13:00 10/26/20 12:59 10/19/20 13:07 Chlorhexidine Gluconate (Eve-Hex 2%) 1 applic QHS TOPIC 10/18/20 20:00 01/16/21 19:59 10/18/20 21:00 Dextrose/Sodium Chloride 1,000 ml @ 50 mls/hr Q20H IV 10/17/20 18:45 11/16/20 18:44 10/20/20 05:28 Docusate Sodium (Colace) 100 mg TID ORAL 10/18/20 09:00 11/17/20 08:59 10/19/20 13:07 Famotidine (Pepcid) 20 mg DAILY ORAL 10/18/20 09:00 01/16/21 08:59 10/20/20 08:46 Levothyroxine Sodium (Synthroid) 50 mcg DAILY@0630 ORAL 10/19/20 06:30 11/18/20 06:29 10/20/20 05:28 Metoprolol Tartrate (Lopressor) 25 mg EVERY 12 HOURS ORAL 10/19/20 21:00 01/17/21 20:59 10/19/20 21:38 Midodrine (Pro-Amatine) 10 mg Q8HR ORAL 10/18/20 14:00 01/16/21 13:59 10/20/20 05:28 Ondansetron HCl (Zofran) 4 mg Q6H PRN IVP Nausea & Vomiting 10/17/20 21:15 11/16/20 21:14 Assessment/Plan Assessment/Plan 1. CHF, mild. 2. CAD/previous non-STEMI. 3. 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 4. Bradycardia. 5. Atrial fibrillation. -Started on Eliquis 6. Renal insufficiency. -Nephro following 7. Troponin leak. Cardio following 8. COVID-19 pneumonia, without fever or leukocytosis -On antibiotics per ID - We will hold off any specific therapy says she remains normoxemic on room air 9. Hypoxemia on admission; improved -Currently saturating well on room air -Monitor for hypoxia and provide supplemental oxygen as needed DVT ppx - s/p Lovenox subcu -Now on Eliquis The care of this patient was discussed with my supervising physician Time spent for this encounter was approximately 31 minutes Tl Pedro Oct 20, 2020 11:13
--- NOTE | 2020-10-20 11:55 | Cardiac Electrophysiology PN ---
Assessment/Plan Assessment/Plan 1. Non-ST elevation myocardial infarction with elevated troponin of more than 0.2. The level has come down to 0.19, but the levels are essentially flat and likely due to renal failure as the creatinine is 2.1. On aspirin and Lopressor 25 bid 2. Atrial fibrillation with rapid ventricular response. The heart rate is better in the 90s on Lopressor 25 bid and Eliquis 2.5 bid 3. Questionable bradycardia. The heart rate has been in the 80s and 90s. It is possible that they could not record the heart beat in view of the patient's atrial fibrillation. 4. History of previous non-ST elevation myocardial infarction. 5. Renal insufficiency.Cr still 2.1 6. Status post COVID pneumonia, was tested positive more than two weeks ago DW RN Subjective Subjective Not eating much on D51/2 NS in Covid isolation. Refusing meds and speech eval Objective Last 24 Hour Vital Signs Date Time Temp Pulse Resp B/P (MAP) Pulse Ox O2 Delivery O2 Flow Rate FiO2 10/20/20 09:00 Nasal Cannula 4.0 10/20/20 08:52 64 139/78 10/20/20 08:00 97.0 64 20 139/78 (98) 91 10/20/20 08:00 87 10/20/20 04:00 85 10/20/20 04:00 97.4 80 20 113/59 (77) 97 10/20/20 00:00 97.3 86 20 114/75 (88) 98 10/19/20 21:38 92 133/72 10/19/20 21:00 Nasal Cannula 4.0 10/19/20 20:00 92 10/19/20 20:00 97.3 86 20 133/72 (92) 95 10/19/20 16:00 92 10/19/20 16:00 97.3 86 20 133/72 (92) 95 10/19/20 12:00 97.6 86 20 132/66 (88) 95 10/19/20 12:00 88 Intake and Output 10/19/20 10/20/20 19:00 07:00 Intake Total 50 ml 470 ml Output Total 250 ml 200 ml Balance -200 ml 270 ml Intake Oral 120 ml IV Total 50 ml 350 ml Output Urine Total 250 ml 200 ml # Voids 1 # Bowel Movements 1 Laboratory Tests Test 10/20/20 07:16 2/23/21 11:30 White Blood Count 6.3 K/UL (4.8-10.8) Red Blood Count 3.09 M/UL (4.20-5.40) L Hemoglobin 9.5 G/DL (12.0-16.0) L Hematocrit 29.7 % (37.0-47.0) L Mean Corpuscular Volume 96 FL (80-99) Mean Corpuscular Hemoglobin 30.6 PG (27.0-31.0) Mean Corpuscular Hemoglobin Concent 32.0 G/DL (32.0-36.0) Red Cell Distribution Width 18.2 % (11.6-14.8) H Platelet Count 138 K/UL (150-450) L Mean Platelet Volume 8.8 FL (6.5-10.1) Neutrophils (%) (Auto) % (45.0-75.0) Lymphocytes (%) (Auto) % (20.0-45.0) Monocytes (%) (Auto) % (1.0-10.0) Eosinophils (%) (Auto) % (0.0-3.0) Basophils (%) (Auto) % (0.0-2.0) Differential Total Cells Counted 100 Neutrophils % (Manual) 82 % (45-75) H Lymphocytes % (Manual) 10 % (20-45) L Monocytes % (Manual) 4 % (1-10) Eosinophils % (Manual) 2 % (0-3) Basophils % (Manual) 0 % (0-2) Band Neutrophils 2 % (0-8) Platelet Estimate Decreased L Platelet Morphology Normal Hypochromasia 1+ Anisocytosis 1+ Sodium Level 136 MMOL/L (136-145) Potassium Level 4.5 MMOL/L (3.5-5.1) Chloride Level 101 MMOL/L (98-107) Carbon Dioxide Level 29 MMOL/L (21-32) Anion Gap 6 mmol/L (5-15) Blood Urea Nitrogen 43 mg/dL (7-18) H Creatinine 2.1 MG/DL (0.55-1.30) H Estimat Glomerular Filtration Rate 22.5 mL/min (>60) Glucose Level 106 MG/DL (74-106) Calcium Level 8.2 MG/DL (8.5-10.1) L Stool Occult Blood Pending Microbiology Date/Time Source Procedure Growth Status 10/17/20 23:00 Urine,Clean Catch Urine Culture - Preliminary Yeast Species Resulted Objective HEAD AND NECK: No JVD. LUNGS: Decreased breath sounds. CARDIOVASCULAR: Irregular S1 and S2 with no gallop. ABDOMEN: Soft. EXTREMITIES: No pitting edema. Terry Reyes MD Oct 20, 2020 11:54
[2020-10-20 12:00] VITALS: BP 154/90
--- NOTE | 2020-10-20 12:22 | Nephrology Progress Note ---
Assessment/Plan Problem List: (1) Acute kidney injury (2) Anemia (3) Hyperkalemia (4) Elevated troponin (5) Pneumonia due to COVID-19 virus (6) Hypothyroidism Assessment Plan October 20: Today's labs reviewed. Serum creatinine unchanged. RN reports patient not taking any p.o. meds. Continue per consultants. Serum creatinine appears to be baseline. October 19: Today's labs still not done yet. RN informed. Albumin bolus given again. Continue to monitor electrolytes and renal parameters. Per orders October 18: Patient hypotensive. Due for blood transfusion. Will give albumin bolus. Continue to monitor renal parameters and electrolytes. Labs and medication list reviewed Subjective ROS Limited/Unobtainable: Yes Objective Objective Last 24 Hour Vital Signs Date Time Temp Pulse Resp B/P (MAP) Pulse Ox O2 Delivery O2 Flow Rate FiO2 10/20/20 09:00 Nasal Cannula 4.0 10/20/20 08:52 64 139/78 10/20/20 08:00 97.0 64 20 139/78 (98) 91 10/20/20 08:00 87 10/20/20 04:00 85 10/20/20 04:00 97.4 80 20 113/59 (77) 97 10/20/20 00:00 97.3 86 20 114/75 (88) 98 10/19/20 21:38 92 133/72 10/19/20 21:00 Nasal Cannula 4.0 10/19/20 20:00 92 10/19/20 20:00 97.3 86 20 133/72 (92) 95 10/19/20 16:00 92 10/19/20 16:00 97.3 86 20 133/72 (92) 95 Intake and Output 10/19/20 10/20/20 19:00 07:00 Intake Total 50 ml 470 ml Output Total 250 ml 200 ml Balance -200 ml 270 ml Intake Oral 120 ml IV Total 50 ml 350 ml Output Urine Total 250 ml 200 ml # Voids 1 # Bowel Movements 1 Current Medications Medications (Trade) Dose Ordered Sig/Yolanda Route PRN Reason Start Time Stop Time Status Last Admin Dose Admin Acetaminophen (Tylenol) 500 mg Q6HR PRN ORAL Mild Pain 1-3 10/17/20 17:45 11/16/20 17:44 Acetaminophen (Tylenol) 500 mg Q6HR PRN ORAL fever >100 10/17/20 18:00 11/16/20 17:59 Acetaminophen (Tylenol) 650 mg Q4H PRN ORAL Pain Scale (6-10) 10/17/20 19:15 11/16/20 19:14 Apixaban (Eliquis) 2.5 mg BID ORAL 10/19/20 18:00 01/17/21 17:59 Barium Sulfate (Varibar Honey) 250 ml NOW PRN MC RAD 10/18/20 15:00 10/21/20 14:49 Barium Sulfate (Varibar [place]) 240 ml NOW PRN MC RAD 10/18/20 15:00 10/21/20 14:49 Barium Sulfate (Varibar Pudding) 230 ml NOW PRN MC RAD 10/18/20 15:00 10/21/20 14:49 Barium Sulfate (Varibar Thin Liquid powder) 148 gm NOW PRN MC RAD 10/18/20 15:00 10/21/20 14:49 Ceftriaxone Sodium 1 gm/ Dextrose 55 ml @ 110 mls/hr Q24H IVPB 10/19/20 13:00 10/26/20 12:59 10/19/20 13:07 Chlorhexidine Gluconate (Eve-Hex 2%) 1 applic QHS TOPIC 10/18/20 20:00 01/16/21 19:59 10/18/20 21:00 Dextrose/Sodium Chloride 1,000 ml @ 50 mls/hr Q20H IV 10/17/20 18:45 11/16/20 18:44 10/20/20 05:28 Docusate Sodium (Colace) 100 mg TID ORAL 10/18/20 09:00 11/17/20 08:59 10/19/20 13:07 Famotidine (Pepcid) 20 mg DAILY ORAL 10/18/20 09:00 01/16/21 08:59 10/20/20 08:46 Levothyroxine Sodium (Synthroid) 50 mcg DAILY@0630 ORAL 10/19/20 06:30 11/18/20 06:29 10/20/20 05:28 Metoprolol Tartrate (Lopressor) 25 mg EVERY 12 HOURS ORAL 10/19/20 21:00 01/17/21 20:59 10/19/20 21:38 Midodrine (Pro-Amatine) 10 mg Q8HR ORAL 10/18/20 14:00 01/16/21 13:59 10/20/20 05:28 Ondansetron HCl (Zofran) 4 mg Q6H PRN IVP Nausea & Vomiting 10/17/20 21:15 11/16/20 21:14 Laboratory Tests 10/20/20 07:16: White Blood Count 6.3, Red Blood Count 3.09L, Hemoglobin 9.5L, Hematocrit 29.7L, Mean Corpuscular Volume 96, Mean Corpuscular Hemoglobin 30.6, Mean Corpuscular Hemoglobin Concent 32.0, Red Cell Distribution Width 18.2H, Platelet Count 138L, Mean Platelet Volume 8.8, Neutrophils (%) (Auto) , Lymphocytes (%) (Auto) , Monocytes (%) (Auto) , Eosinophils (%) (Auto) , Basophils (%) (Auto) , Differential Total Cells Counted 100, Neutrophils % (Manual) 82H, Lymphocytes % (Manual) 10L, Monocytes % (Manual) 4, Eosinophils % (Manual) 2, Basophils % (Manual) 0, Band Neutrophils 2, Platelet Estimate DecreasedL, Platelet Morphology Normal, Hypochromasia 1+, Anisocytosis 1+, Sodium Level 136, Potassium Level 4.5, Chloride Level 101, Carbon Dioxide Level 29, Anion Gap 6, Blood Urea Nitrogen 43H, Creatinine 2.1H, Estimat Glomerular Filtration Rate 22.5, Glucose Level 106, Calcium Level 8.2L 10/20/20 11:30: Stool Occult Blood [Pending] Height (Feet): 5 Weight (Pounds): 145 General Appearance: no apparent distress Cardiovascular: normal rate Respiratory/Chest: decreased breath sounds Abdomen: distended Dustin Gómez MD Oct 20, 2020 12:22
[2020-10-20] MEDS: cefTRIAXone 1 GM in D5W 55 ML IVPB SCH (12:25)
--- NOTE | 2020-10-20 12:43 | Infectious Diseases Prog Note ---
Assessment/Plan Assessment/Plan IMPRESSION: Abnormal chest x-ray, atelectasis versus infiltrate in the left lung base, Recent history of COVID disease, Acute renal failure, Severe aortic stenosis Atrial fibrillation, hypothyroidism, Anemia. RECOMMENDATION: Continue ceftriaxone. We will follow up the cultures Subjective ROS Limited/Unobtainable: Yes Constitutional: Reports: anorexia Psychiatric: Reports: other - refusing medications Allergies: Coded Allergies: No Known Allergies (Unverified , 10/17/20) Objective Last 24 Hour Vital Signs Date Time Temp Pulse Resp B/P (MAP) Pulse Ox O2 Delivery O2 Flow Rate FiO2 10/20/20 09:00 Nasal Cannula 4.0 10/20/20 08:52 64 139/78 10/20/20 08:00 97.0 64 20 139/78 (98) 91 10/20/20 08:00 87 10/20/20 04:00 85 10/20/20 04:00 97.4 80 20 113/59 (77) 97 10/20/20 00:00 97.3 86 20 114/75 (88) 98 10/19/20 21:38 92 133/72 10/19/20 21:00 Nasal Cannula 4.0 10/19/20 20:00 92 10/19/20 20:00 97.3 86 20 133/72 (92) 95 10/19/20 16:00 92 10/19/20 16:00 97.3 86 20 133/72 (92) 95 Height (Feet): 5 Weight (Pounds): 145 HEENT: mucous membranes moist, other - dry mouth Respiratory/Chest: lungs clear Cardiovascular: normal rate Abdomen: soft, non tender Extremities: other - mild edema Neurologic/Psychiatric: alert, responsive Microbiology Date/Time Source Procedure Growth Status 10/17/20 23:00 Urine,Clean Catch Urine Culture - Preliminary Yeast Species Resulted Laboratory Tests Test 10/20/20 07:16 10/20/20 11:30 White Blood Count 6.3 K/UL (4.8-10.8) Red Blood Count 3.09 M/UL (4.20-5.40) L Hemoglobin 9.5 G/DL (12.0-16.0) L Hematocrit 29.7 % (37.0-47.0) L Mean Corpuscular Volume 96 FL (80-99) Mean Corpuscular Hemoglobin 30.6 PG (27.0-31.0) Mean Corpuscular Hemoglobin Concent 32.0 G/DL (32.0-36.0) Red Cell Distribution Width 18.2 % (11.6-14.8) H Platelet Count 138 K/UL (150-450) L Mean Platelet Volume 8.8 FL (6.5-10.1) Neutrophils (%) (Auto) % (45.0-75.0) Lymphocytes (%) (Auto) % (20.0-45.0) Monocytes (%) (Auto) % (1.0-10.0) Eosinophils (%) (Auto) % (0.0-3.0) Basophils (%) (Auto) % (0.0-2.0) Differential Total Cells Counted 100 Neutrophils % (Manual) 82 % (45-75) H Lymphocytes % (Manual) 10 % (20-45) L Monocytes % (Manual) 4 % (1-10) Eosinophils % (Manual) 2 % (0-3) Basophils % (Manual) 0 % (0-2) Band Neutrophils 2 % (0-8) Platelet Estimate Decreased L Platelet Morphology Normal Hypochromasia 1+ Anisocytosis 1+ Sodium Level 136 MMOL/L (136-145) Potassium Level 4.5 MMOL/L (3.5-5.1) Chloride Level 101 MMOL/L (98-107) Carbon Dioxide Level 29 MMOL/L (21-32) Anion Gap 6 mmol/L (5-15) Blood Urea Nitrogen 43 mg/dL (7-18) H Creatinine 2.1 MG/DL (0.55-1.30) H Estimat Glomerular Filtration Rate 22.5 mL/min (>60) Glucose Level 106 MG/DL (74-106) Calcium Level 8.2 MG/DL (8.5-10.1) L Stool Occult Blood Pending Current Medications Medications (Trade) Dose Ordered Sig/Yolanda Route PRN Reason Start Time Stop Time Status Last Admin Dose Admin Acetaminophen (Tylenol) 500 mg Q6HR PRN ORAL Mild Pain 1-3 10/17/20 17:45 11/16/20 17:44 Acetaminophen (Tylenol) 500 mg Q6HR PRN ORAL fever >100 10/17/20 18:00 11/16/20 17:59 Acetaminophen (Tylenol) 650 mg Q4H PRN ORAL Pain Scale (6-10) 10/17/20 19:15 11/16/20 19:14 Apixaban (Eliquis) 2.5 mg BID ORAL 10/19/20 18:00 01/17/21 17:59 Barium Sulfate (Varibar Honey) 250 ml NOW PRN MC RAD 10/18/20 15:00 10/21/20 14:49 Barium Sulfate (Varibar [place]) 240 ml NOW PRN MC RAD 10/18/20 15:00 10/21/20 14:49 Barium Sulfate (Varibar Pudding) 230 ml NOW PRN MC RAD 10/18/20 15:00 10/21/20 14:49 Barium Sulfate (Varibar Thin Liquid powder) 148 gm NOW PRN MC RAD 10/18/20 15:00 10/21/20 14:49 Ceftriaxone Sodium 1 gm/ Dextrose 55 ml @ 110 mls/hr Q24H IVPB 10/19/20 13:00 10/26/20 12:59 10/20/20 12:25 Chlorhexidine Gluconate (Eve-Hex 2%) 1 applic QHS TOPIC 10/18/20 20:00 01/16/21 19:59 10/18/20 21:00 Dextrose/Sodium Chloride 1,000 ml @ 50 mls/hr Q20H IV 10/17/20 18:45 11/16/20 18:44 10/20/20 05:28 Docusate Sodium (Colace) 100 mg TID ORAL 10/18/20 09:00 11/17/20 08:59 10/19/20 13:07 Famotidine (Pepcid) 20 mg DAILY ORAL 10/18/20 09:00 01/16/21 08:59 10/20/20 08:46 Levothyroxine Sodium (Synthroid) 50 mcg DAILY@0630 ORAL 10/19/20 06:30 11/18/20 06:29 10/20/20 05:28 Metoprolol Tartrate (Lopressor) 25 mg EVERY 12 HOURS ORAL 10/19/20 21:00 01/17/21 20:59 10/19/20 21:38 Midodrine (Pro-Amatine) 10 mg Q8HR ORAL 10/18/20 14:00 01/16/21 13:59 10/20/20 05:28 Ondansetron HCl (Zofran) 4 mg Q6H PRN IVP Nausea & Vomiting 10/17/20 21:15 11/16/20 21:14 Luis Alvarado MD Oct 20, 2020 12:43
[2020-10-20 16:00] VITALS: BP 138/72
[2020-10-20] MEDS ORDERED: Tubing IV Blood Pump IV ONE (16:49)
[2020-10-20] MEDS ORDERED: D5 1/2NS 1000ml IV ONE (16:49)
[2020-10-20] MEDS ORDERED: NS 275ml ONE (16:49)
--- NOTE | 2020-10-20 17:05 | NUR ---
NURSE NOTES:WOUND CARE NOTES:Pt presented on admission with Multiple Medical Comorbidities including Covid-19 and Pressure Injuries. Primary Nurse reported Pt has been declining food and medications. Sacral DTPI that is evolving noted to Sacrum(L)6cm x (W)12.5cm.. Scattered Purpuric areas that are indurated noted to R and L cheek. Small wound that is 100% slough (L)0.6cm x (W)0.7cm noted at sacrococcygeal area within base of DTPI. MASD noted to Perineum and skin folds of Medial/posterior aspects of Both upper thighs. Affected areas are erythematous and macerated with scattered satellite lesions. DTPI L Heel (L)3cm x (W)4cm, Base of heel is maroon and fluctuant with small purpuric area (L)0.4cm x (W)0.9cm within base of DTPI. l Foot including toes are mottled and cool to touch. L Heel is boggy. L Heel including toes are Mottled and cool to touch. Tx.Plan: Apply Moisture Barrier Paste to Sacrum. Cover with Optifoam drsg.Change every 3 days and prn. Apply Moisture Barrier Paste to abdominal folds, Perineum and skin folds of both upper thighs. Apply Cavilon Skin Barrier to both heels. Cover each Heel with Optifoam drsg. Change every 7 days and prn. Reposition at least every 2hours or as tolerated. Off-load heels with pillow.
--- NOTE | 2020-10-20 17:21 | Cardiology Report ---
APPROVED REPORT EXAM: Two-dimensional and M-mode echocardiogram with Doppler and color Doppler. INDICATION Congestive Heart Failure M-Mode DIMENSIONS IVSd1.1 (0.7-1.1cm)Left Atrium (MM)5.9 (1.6-4.0cm) LVDd3.8 (3.5-5.6cm)Aortic Root1.6 (2.0-3.7cm) PWd1.1 (0.7-1.1cm)Aortic Cusp Exc.0.4 (1.5-2.0cm) IVSs1.3 cmEPSS0.4 (>1.0cm) LVDs2.5 (2.5-4.0cm) PWs1.4 cm <Conclusion> Normal left ventricular chamber size, hyperdynamic systolic function and wall motion. Left ventricular ejection fraction estimated to be 70-75 %. Moderate left ventricular hypertrophy by 2-D. Anterior Echo-free space, may be due to pericardial fat or effusion. Moderate bi-atrial Enlargement. Right ventricular enlargement. Severe aortic valve calcification with decreased cusp excursion c/w aortic stenosis. Severely thickened mitral valve leaflets with decreased excursion. Heavy mitral annulus and aortic root calcification. Normal pulmonic valve structure. Normal tricuspid valve structure. IVC at normal size with slight physiologic collapse. A color flow and spectral Doppler study was performed and revealed: Mild aortic insufficiency. Peak aortic valve gradient of 51 mm Hg and a mean of 30 mmHg.Increased velocity of flow mid lv due to cavity obliteration Aortic valve area 0.9 cm2 calculated by continuity equation suggestive of severe aortic stenosis. Mild to moderate mitral regurgitation. Peak mitral valve diastolic gradient of 7.4 mmHg and a mean gradient of 3.7 mmHg suggestive of mild mitral stenosis. Can not determine left ventricular diastolic function by mitral diastolic velocities due to atrial fibrillation. Moderate tricuspid regurgitation. Tricuspid systolic velocities suggests peak right ventricular systolic pressure of 59 mmHg, suggestive of moderate to severe pulmonary hypertension. Trace pulmonic regurgitation present.
--- NOTE | 2020-10-20 17:40 | Cardiology Report ---
APPROVED REPORT EKG Measurement Heart [id number] <Conclusion> Atrial fibrillation Incomplete right bundle branch block T wave abnormality, consider inferior ischemia Abnormal ECG
--- NOTE | 2020-10-20 17:42 | Cardiology Report ---
APPROVED REPORT EKG Measurement Heart [id number] <Conclusion> Atrial fibrillation Incomplete right bundle branch block ST & T wave abnormality, consider inferolateral ischemia Abnormal ECG
--- NOTE | 2020-10-20 19:00 | Surgery Progress Note ---
Surgery Progress Note Subjective Symptoms: improved Additional Comments echo noted renal function elevated labs reviewed dressing going well Objective Last 24 Hour Vital Signs Date Time Temp Pulse Resp B/P (MAP) Pulse Ox O2 Delivery O2 Flow Rate FiO2 10/20/20 16:00 83 10/20/20 16:00 97.6 84 20 138/72 (94) 94 10/20/20 12:00 94 10/20/20 12:00 97.2 91 20 154/90 (111) 95 10/20/20 09:00 Nasal Cannula 4.0 10/20/20 08:52 64 139/78 10/20/20 08:00 97.0 64 20 139/78 (98) 91 10/20/20 08:00 87 10/20/20 04:00 85 10/20/20 04:00 97.4 80 20 113/59 (77) 97 10/20/20 00:00 97.3 86 20 114/75 (88) 98 10/19/20 21:38 92 133/72 10/19/20 21:00 Nasal Cannula 4.0 10/19/20 20:00 92 10/19/20 20:00 97.3 86 20 133/72 (92) 95 I&O Intake and Output 10/19/20 10/20/20 19:00 07:00 Intake Total 50 ml 470 ml Output Total 250 ml 200 ml Balance -200 ml 270 ml Intake Oral 120 ml IV Total 50 ml 350 ml Output Urine Total 250 ml 200 ml # Voids 1 # Bowel Movements 1 Dressing: saturated Cardiovascular: RSR Respiratory: decreased breath sounds Abdomen: soft, non-tender, present bowel sounds, non-distended Extremities: no tenderness, no cyanosis Laboratory Tests Test 10/20/20 07:16 10/20/20 11:30 White Blood Count 6.3 K/UL (4.8-10.8) Red Blood Count 3.09 M/UL (4.20-5.40) L Hemoglobin 9.5 G/DL (12.0-16.0) L Hematocrit 29.7 % (37.0-47.0) L Mean Corpuscular Volume 96 FL (80-99) Mean Corpuscular Hemoglobin 30.6 PG (27.0-31.0) Mean Corpuscular Hemoglobin Concent 32.0 G/DL (32.0-36.0) Red Cell Distribution Width 18.2 % (11.6-14.8) H Platelet Count 138 K/UL (150-450) L Mean Platelet Volume 8.8 FL (6.5-10.1) Neutrophils (%) (Auto) % (45.0-75.0) Lymphocytes (%) (Auto) % (20.0-45.0) Monocytes (%) (Auto) % (1.0-10.0) Eosinophils (%) (Auto) % (0.0-3.0) Basophils (%) (Auto) % (0.0-2.0) Differential Total Cells Counted 100 Neutrophils % (Manual) 82 % (45-75) H Lymphocytes % (Manual) 10 % (20-45) L Monocytes % (Manual) 4 % (1-10) Eosinophils % (Manual) 2 % (0-3) Basophils % (Manual) 0 % (0-2) Band Neutrophils 2 % (0-8) Platelet Estimate Decreased L Platelet Morphology Normal Hypochromasia 1+ Anisocytosis 1+ Sodium Level 136 MMOL/L (136-145) Potassium Level 4.5 MMOL/L (3.5-5.1) Chloride Level 101 MMOL/L (98-107) Carbon Dioxide Level 29 MMOL/L (21-32) Anion Gap 6 mmol/L (5-15) Blood Urea Nitrogen 43 mg/dL (7-18) H Creatinine 2.1 MG/DL (0.55-1.30) H Estimat Glomerular Filtration Rate 22.5 mL/min (>60) Glucose Level 106 MG/DL (74-106) Calcium Level 8.2 MG/DL (8.5-10.1) L Stool Occult Blood Pending Plan Problems: (1) Anemia (2) Acute kidney injury (3) Atrial fibrillation (4) Hyperkalemia (5) Elevated troponin (6) Decubitus skin ulcer Assessment & Plan: Pt presented on admission with Multiple Medical Comorbidities including Covid-19 and Pressure Injuries. Primary Nurse reported Pt has been declining food and medications. Sacral DTPI that is evolving noted to Sacrum(L)6cm x (W)12.5cm.. Scattered Purpuric areas that are indurated noted to R and L cheek. Small wound that is 100% slough (L)0.6cm x (W)0.7cm noted at sacrococcygeal area within base of DTPI. MASD noted to Perineum and skin folds of Medial/posterior aspects of Both upper thighs. Affected areas are erythematous and macerated with scattered satellite lesions. DTPI L Heel (L)3cm x (W)4cm, Base of heel is maroon and fluctuant with small pur puric area (L)0.4cm x (W)0.9cm within base of DTPI. l Foot including toes are mottled and cool to touch. L Heel is boggy. L Heel including toes are Mottled and cool to touch. Tx.Plan: Apply Moisture Barrier Paste to Sacrum. Cover with Optifoam drsg.Change every 3 days and prn. Apply Moisture Barrier Paste to abdominal folds, Perineum and skin folds of both upper thighs. Apply Cavilon Skin Barrier to both heels. Cover each Heel with Optifoam drsg. Change every 7 days and prn. Reposition at least every 2hours or as tolerated. Off-load heels with pillow. (7) Malnutrition Jim Orosco Oct 20, 2020 19:00
--- NOTE | 2020-10-20 19:16 | NUR ---
NURSE NOTES: Received report from SERGIO Smiley. Pt is A/O x2 and verbally responsive. Pt speaking Farsi. No SOB or acute distress noted but pt wear NC 4L with saturation of 97% but pt continue to takes of the NC. Pt has a IV running IV fluid running on [place] as ordered. No pain noted. Pt bed in lowest position and locked with side rails x2. Call light placed within reach. Was endorsed that pt is refusing all food including crushed medications. Will continue plan of care.
--- NOTE | 2020-10-20 19:25 | NUR ---
NURSE HAND-OFF REPORT: Important Events on Shift:covid monitoring, refusing meds Patient Status: stable Diet: puree nectar thick Pending Orders: na Pending Results/Labs:na Pending MD notification:na Latest Vital Signs: Temperature 97.6 , Pulse 83 , B/P 138 /72 , Respiratory Rate 20 , O2 SAT 94 , Nasal Cannula, O2 Flow Rate 4.0 . Vital Sign Comment: stable EKG Rhythm: A-fib Rhythm change?: N MD Notified?: - MD Response: Latest Elizabeth Fall Score: 70 Fall Risk: High Risk Safety Measures: Call light Within Reach, Bed Alarm Zone 1, Side Rails Side Rails x3, Bed position Low and Locked. Fall Precautions: Yellow Socks Patient Fall Education Report given to jabier chu.
[2020-10-20 20:00] VITALS: BP 133/85
--- NOTE | 2020-10-20 20:42 | General Progress Note ---
Subjective ROS Limited/Unobtainable: Yes Allergies: Coded Allergies: No Known Allergies (Unverified , 10/17/20) Objective Last 24 Hour Vital Signs Date Time Temp Pulse Resp B/P (MAP) Pulse Ox O2 Delivery O2 Flow Rate FiO2 10/20/20 16:00 83 10/20/20 16:00 97.6 84 20 138/72 (94) 94 10/20/20 12:00 94 10/20/20 12:00 97.2 91 20 154/90 (111) 95 10/20/20 09:00 Nasal Cannula 4.0 10/20/20 08:52 64 139/78 10/20/20 08:00 97.0 64 20 139/78 (98) 91 10/20/20 08:00 87 10/20/20 04:00 85 10/20/20 04:00 97.4 80 20 113/59 (77) 97 10/20/20 00:00 97.3 86 20 114/75 (88) 98 10/19/20 21:38 92 133/72 10/19/20 21:00 Nasal Cannula 4.0 Intake and Output 10/19/20 10/20/20 19:00 07:00 Intake Total 50 ml 470 ml Output Total 250 ml 200 ml Balance -200 ml 270 ml Intake Oral 120 ml IV Total 50 ml 350 ml Output Urine Total 250 ml 200 ml # Voids 1 # Bowel Movements 1 Laboratory Tests 10/20/20 07:16: White Blood Count 6.3, Red Blood Count 3.09L, Hemoglobin 9.5L, Hematocrit 29.7L, Mean Corpuscular Volume 96, Mean Corpuscular Hemoglobin 30.6, Mean Corpuscular Hemoglobin Concent 32.0, Red Cell Distribution Width 18.2H, Platelet Count 138L, Mean Platelet Volume 8.8, Neutrophils (%) (Auto) , Lymphocytes (%) (Auto) , Monocytes (%) (Auto) , Eosinophils (%) (Auto) , Basophils (%) (Auto) , Differential Total Cells Counted 100, Neutrophils % (Manual) 82H, Lymphocytes % (Manual) 10L, Monocytes % (Manual) 4, Eosinophils % (Manual) 2, Basophils % (Manual) 0, Band Neutrophils 2, Platelet Estimate DecreasedL, Platelet Morphology Normal, Hypochromasia 1+, Anisocytosis 1+, Sodium Level 136, Potassium Level 4.5, Chloride Level 101, Carbon Dioxide Level 29, Anion Gap 6, Blood Urea Nitrogen 43H, Creatinine 2.1H, Estimat Glomerular Filtration Rate 22.5, Glucose Level 106, Calcium Level 8.2L 10/20/20 11:30: Stool Occult Blood [Pending] Height (Feet): 5 Weight (Pounds): 145 Assessment/Plan Problem List: (1) Anemia ICD Codes: D64.9 - Anemia, unspecified SNOMED: 754191220 (2) Acute kidney injury ICD Codes: N17.9 - Acute kidney failure, unspecified SNOMED: 34119987, 9372153 (3) Atrial fibrillation ICD Codes: I48.91 - Unspecified atrial fibrillation SNOMED: 63256736 (4) Elevated troponin ICD Codes: R77.8 - Other specified abnormalities of plasma proteins SNOMED: 588116576, 466023621, 103412767 (5) Malnutrition ICD Codes: E46 - Unspecified protein-calorie malnutrition SNOMED: 95257525 (6) Pneumonia due to COVID-19 virus ICD Codes: U07.1 - COVID-19; J12.82 - Pneumonia due to coronavirus disease 2019 SNOMED: [id number] (7) Hypothyroidism ICD Codes: E03.9 - Hypothyroidism, unspecified SNOMED: 39560138 Status: progressing Assessment/Plan: covid + s/p bradycardia AZOTEMIA improving reviewed chart and labs weak malnutrtion Neri Dumont MD Oct 20, 2020 20:42
[2020-10-20] MEDS: Dyna-Hex 2% Top Sol 2oz TOPIC SCH (21:00)
[2020-10-21] VITALS (7 sets, daily range): BP systolic 126–157; BP diastolic 8–87
[2020-10-21] MEDS: D5 1/2NS 1,000 ML IV SCH ×2 (02:51→22:59)
[2020-10-21] MEDS: Midodrine 10mg tab ORAL SCH ×4 (05:18→20:27)
--- NOTE | 2020-10-21 06:15 | Hematology/Onc Progress Note ---
Assessment/Plan Assessment/Plan Assessment and recs # Anemia r/o gi bleed --> anemia panel has been ordered-->reviewed --> hgb 8.1->9.3->9.7-->9.5 --> no hemolysis is noted --> transfuse on prn basis # Thrombocytopenia likely due to reactive process --> plt 138 --> viral w/u neg # Hypercoag disorder with Atrial fibrillation --> consider anticoag as per cards --> if bleeding, consider hold anticoag # Elevated trop --> per cards # Hyperkalemia --> per renal # Acute kidney injury --> per renal # Recently COVID-19 positive # Dvt ppx scds --> lovenox sq Appreciate consultation and rosio eugene Subjective Constitutional: Denies: no symptoms, chills, fever, malaise, weakness, other HEENT: Denies: no symptoms, eye pain, blurred vision, tearing, double vision, ear pain, ear discharge, nose pain, nose congestion, throat pain, throat swelling, mouth pain, mouth swelling, other Cardiovascular: Denies: no symptoms, chest pain, edema, irregular heart rate, lightheadedness, palpitations, syncope, other Gastrointestinal/Abdominal: Denies: no symptoms, abdomen distended, abdominal pain, black stools, tarry stools, blood in stool, constipated, diarrhea, difficulty swallowing, nausea, poor appetite, poor fluid intake, rectal bleeding, vomiting, other Genitourinary: Denies: no symptoms, burning, discharge, frequency, flank pain, hematuria, incontinence, pain, urgency, other Neurologic/Psychiatric: Denies: no symptoms, anxiety, depressed, emotional problems, headache, numbness, paresthesia, pre-existing deficit, seizure, tingling, tremors, weakness, other Endocrine: Denies: no symptoms, excessive sweating, flushing, intolerance to cold, intolerance to heat, increased hunger, increased thirst, increased urine, unexplained weight gain, unexplained weight loss, other Allergies: Coded Allergies: No Known Allergies (Unverified , 10/17/20) Subjective 10/19 cbc is pending, did get blood transfusion last night, pending results 10/20 meds noted, no bleeding, labs reviewed, rosio eugene, no new changes 10/21 on 4l nc, has been refusing labs, meds noted, no bleeding Objective Objective Current Medications Medications (Trade) Dose Ordered Sig/Yolanda Route PRN Reason Start Time Stop Time Status Last Admin Dose Admin Acetaminophen (Tylenol) 500 mg Q6HR PRN ORAL Mild Pain 1-3 10/17/20 17:45 11/16/20 17:44 Acetaminophen (Tylenol) 500 mg Q6HR PRN ORAL fever >100 10/17/20 18:00 11/16/20 17:59 Acetaminophen (Tylenol) 650 mg Q4H PRN ORAL Pain Scale (6-10) 10/17/20 19:15 11/16/20 19:14 Apixaban (Eliquis) 2.5 mg BID ORAL 10/19/20 18:00 01/17/21 17:59 Barium Sulfate (Varibar Honey) 250 ml NOW PRN MC RAD 10/18/20 15:00 10/21/20 14:49 Barium Sulfate (Varibar [place]) 240 ml NOW PRN MC RAD 10/18/20 15:00 10/21/20 14:49 Barium Sulfate (Varibar Pudding) 230 ml NOW PRN MC RAD 10/18/20 15:00 10/21/20 14:49 Barium Sulfate (Varibar Thin Liquid powder) 148 gm NOW PRN MC RAD 10/18/20 15:00 10/21/20 14:49 Ceftriaxone Sodium 1 gm/ Dextrose 55 ml @ 110 mls/hr Q24H IVPB 10/19/20 13:00 10/26/20 12:59 10/20/20 12:25 Chlorhexidine Gluconate (Eve-Hex 2%) 1 applic QHS TOPIC 10/18/20 20:00 01/16/21 19:59 10/18/20 21:00 Dextrose/Sodium Chloride 1,000 ml @ 50 mls/hr Q20H IV 10/17/20 18:45 11/16/20 18:44 10/21/20 02:51 Docusate Sodium (Colace) 100 mg TID ORAL 10/18/20 09:00 11/17/20 08:59 10/19/20 13:07 Famotidine (Pepcid) 20 mg DAILY ORAL 10/18/20 09:00 01/16/21 08:59 10/20/20 08:46 Levothyroxine Sodium (Synthroid) 50 mcg DAILY@0630 ORAL 10/19/20 06:30 11/18/20 06:29 10/21/20 05:18 Metoprolol Tartrate (Lopressor) 25 mg EVERY 12 HOURS ORAL 10/19/20 21:00 01/17/21 20:59 10/19/20 21:38 Midodrine (Pro-Amatine) 10 mg Q8HR ORAL 10/18/20 14:00 01/16/21 13:59 10/21/20 05:18 Ondansetron HCl (Zofran) 4 mg Q6H PRN IVP Nausea & Vomiting 10/17/20 21:15 11/16/20 21:14 Last 24 Hour Vital Signs Date Time Temp Pulse Resp B/P (MAP) Pulse Ox O2 Delivery O2 Flow Rate FiO2 10/21/20 04:00 98.1 82 20 137/78 (97) 94 10/21/20 04:00 92 10/21/20 00:00 85 10/21/20 00:00 98.4 86 22 136/82 (100) 92 10/20/20 21:00 83 138/72 10/20/20 21:00 Nasal Cannula 4.0 10/20/20 20:00 93 10/20/20 20:00 98.0 71 22 133/85 (101) 94 10/20/20 16:00 83 10/20/20 16:00 97.6 84 20 138/72 (94) 94 10/20/20 12:00 94 10/20/20 12:00 97.2 91 20 154/90 (111) 95 10/20/20 09:00 Nasal Cannula 4.0 10/20/20 08:52 64 139/78 10/20/20 08:00 97.0 64 20 139/78 (98) 91 10/20/20 08:00 87 10/20/20 04:00 85 10/20/20 04:00 97.4 80 20 113/59 (77) 97 10/20/20 00:00 97.3 86 20 114/75 (88) 98 10/19/20 21:38 92 133/72 10/19/20 21:00 Nasal Cannula 4.0 10/19/20 20:00 92 10/19/20 20:00 97.3 86 20 133/72 (92) 95 10/19/20 16:00 92 10/19/20 16:00 97.3 86 20 133/72 (92) 95 10/19/20 12:00 97.6 86 20 132/66 (88) 95 10/19/20 12:00 88 10/19/20 09:00 Nasal Cannula 4.0 10/19/20 08:00 99 10/19/20 08:00 97.1 66 20 108/61 (77) 95 Intake and Output 10/20/20 10/21/20 19:00 07:00 Intake Total 50 ml 540 ml Output Total 400 ml 200 ml Balance -350 ml 340 ml Intake Oral 240 ml IV Total 50 ml 300 ml Output Urine Total 400 ml 200 ml # Bowel Movements 1 Labs Test 10/18/20 07:40 10/19/20 11:00 10/20/20 07:16 10/20/20 11:30 White Blood Count 4.9 K/UL (4.8-10.8) 6.5 K/UL (4.8-10.8) 6.3 K/UL (4.8-10.8) Red Blood Count 2.44 M/UL (4.20-5.40) 3.29 M/UL (4.20-5.40) 3.09 M/UL (4.20-5.40) Hemoglobin 7.3 G/DL (12.0-16.0) 9.7 G/DL (12.0-16.0) 9.5 G/DL (12.0-16.0) Hematocrit 24.1 % (37.0-47.0) 31.9 % (37.0-47.0) 29.7 % (37.0-47.0) Mean Corpuscular Volume 99 FL (80-99) 97 FL (80-99) 96 FL (80-99) Mean Corpuscular Hemoglobin 30.0 PG (27.0-31.0) 29.5 PG (27.0-31.0) 30.6 PG (27.0-31.0) Mean Corpuscular Hemoglobin Concent 30.3 G/DL (32.0-36.0) 30.4 G/DL (32.0-36.0) 32.0 G/DL (32.0-36.0) Red Cell Distribution Width 18.6 % (11.6-14.8) 18.6 % (11.6-14.8) 18.2 % (11.6-14.8) Platelet Count 124 K/UL (150-450) 134 K/UL (150-450) 138 K/UL (150-450) Mean Platelet Volume 10.1 FL (6.5-10.1) 9.1 FL (6.5-10.1) 8.8 FL (6.5-10.1) Neutrophils (%) (Auto) % (45.0-75.0) 84.3 % (45.0-75.0) % (45.0-75.0) Lymphocytes (%) (Auto) % (20.0-45.0) 8.2 % (20.0-45.0) % (20.0-45.0) Monocytes (%) (Auto) % (1.0-10.0) 5.6 % (1.0-10.0) % (1.0-10.0) Eosinophils (%) (Auto) % (0.0-3.0) 0.7 % (0.0-3.0) % (0.0-3.0) Basophils (%) (Auto) % (0.0-2.0) 1.1 % (0.0-2.0) % (0.0-2.0) Differential Total Cells Counted 100 100 Neutrophils % (Manual) 85 % (45-75) 82 % (45-75) Lymphocytes % (Manual) 9 % (20-45) 10 % (20-45) Monocytes % (Manual) 6 % (1-10) 4 % (1-10) Eosinophils % (Manual) 0 % (0-3) 2 % (0-3) Basophils % (Manual) 0 % (0-2) 0 % (0-2) Band Neutrophils 0 % (0-8) 2 % (0-8) Platelet Estimate Decreased Decreased Platelet Morphology Normal Normal Hypochromasia 1+ 1+ Anisocytosis 1+ 1+ Reticulocyte Count 2.5 % (0.5-2.0) Sodium Level 137 MMOL/L (136-145) 137 MMOL/L (136-145) 136 MMOL/L (136-145) Potassium Level 4.8 MMOL/L (3.5-5.1) 5.0 MMOL/L (3.5-5.1) 4.5 MMOL/L (3.5-5.1) Chloride Level 102 MMOL/L (98-107) 100 MMOL/L (98-107) 101 MMOL/L (98-107) Carbon Dioxide Level 36 MMOL/L (21-32) 31 MMOL/L (21-32) 29 MMOL/L (21-32) Blood Urea Nitrogen 41 mg/dL (7-18) 44 mg/dL (7-18) 43 mg/dL (7-18) Creatinine 2.0 MG/DL (0.55-1.30) 2.1 MG/DL (0.55-1.30) 2.1 MG/DL (0.55-1.30) Estimat Glomerular Filtration Rate 23.8 mL/min (>60) 22.5 mL/min (>60) 22.5 mL/min (>60) Glucose Level 103 MG/DL (74-106) 93 MG/DL (74-106) 106 MG/DL (74-106) Hemoglobin A1c 5.2 % (4.3-6.0) Lactic Acid Level 0.80 mmol/L (0.4-2.0) Uric Acid 8.7 MG/DL (2.6-7.2) 9.4 MG/DL (2.6-7.2) Calcium Level 8.0 MG/DL (8.5-10.1) 8.2 MG/DL (8.5-10.1) 8.2 MG/DL (8.5-10.1) Phosphorus Level 3.5 MG/DL (2.5-4.9) 3.2 MG/DL (2.5-4.9) Magnesium Level 2.8 MG/DL (1.8-2.4) 2.5 MG/DL (1.8-2.4) Iron Level 40 ug/dL (50-175) Total Iron Binding Capacity 160 ug/dL (250-450) Percent Iron Saturation 25 % (15-50) Unsaturated Iron Binding 120 ug/dL (112-346) Ferritin 166 NG/ML (8-388) Total Bilirubin 0.7 MG/DL (0.2-1.0) 1.0 MG/DL (0.2-1.0) Gamma Glutamyl Transpeptidase 19 U/L (5-85) Aspartate Amino Transf (AST/SGOT) 14 U/L (15-37) 16 U/L (15-37) Alanine Aminotransferase (ALT/SGPT) 10 U/L (12-78) 12 U/L (12-78) Alkaline Phosphatase 45 U/L (46-116) 57 U/L (46-116) Lactate Dehydrogenase 217 U/L (135-225) Total Creatine Kinase 22 U/L (26-308) Troponin I 0.194 ng/mL (0.000-0.056) C-Reactive Protein, Quantitative 4.7 mg/dL (0.00-0.90) 4.2 mg/dL (0.00-0.90) Pro-B-Type Natriuretic Peptide > 06100 pg/mL (0-125) > 15361 pg/mL (0-125) Total Protein 4.7 G/DL (6.4-8.2) 5.6 G/DL (6.4-8.2) Albumin 2.0 G/DL (3.4-5.0) 2.7 G/DL (3.4-5.0) Globulin 2.7 g/dL 2.9 g/dL Albumin/Globulin Ratio 0.7 (1.0-2.7) 0.9 (1.0-2.7) Triglycerides Level 102 MG/DL (30-150) Cholesterol Level 98 MG/DL (< 200) LDL Cholesterol 51 mg/dL (<100) HDL Cholesterol 36 MG/DL (40-60) Cholesterol/HDL Ratio 2.7 (3.3-4.4) Vitamin B12 Level 574 PG/ML (193-986) Folate 10.0 NG/ML (8.6-58.9) Thyroid Stimulating Hormone (TSH) 9.619 uiU/mL (0.358-3.740) Free Thyroxine 0.57 NG/DL (0.76-1.46) Anion Gap 6 mmol/L (5-15) 6 mmol/L (5-15) Free Triiodothyronine 0.6 pg/mL (2.3-4.2) Height (Feet): 5 Weight (Pounds): 145 Objective Physical Exam General: Awake and alert, no acute distress HEENT: NC/AT. EOMI. Cardiovascular: Irregularly irregular rhythm. Normal heart rate Resp: Normal work of breathing. No cough, wheezing or crackles appreciated Abdomen: Abdomen is soft, nondistended. Nontender Skin: Intact. No abrasions, laceration or rash over the exposed skin MSK: Normal tone and bulk. Moving all extremities. No obvious deformity. Neuro: Awake and alert. Mentating appropriately. Hawk Ma MD Oct 21, 2020 06:15
--- NOTE | 2020-10-21 07:00 | NUR ---
NURSE NOTES: Received patient in bed asleep. O2 via NC at 4LPM intact, no SOB or acute distress. IV line intact, kerlix intact. FC intact, draining yellow colored urine. HOB elevated. Bed locked in low position. Call light within reach. Will continue plan of care.
[2020-10-21 07:30] LABS: HEMATOCRIT 30.4 % (37.0-47.0); HEMOGLOBIN 9.5 G/DL (12.0-16.0); MEAN CORPUSCULAR VOLUME 97 FL (80-99); PLATELET COUNT 137 K/UL (150-450); RED BLOOD COUNT 3.14 M/UL (4.20-5.40); RED CELL DISTRIBUTION WIDTH 18.1 % (11.6-14.8); WHITE BLOOD COUNT 6.2 K/UL (4.8-10.8)
[2020-10-21 07:42] LABS: CALCIUM 7.8 MG/DL (8.5-10.1); CREATININE 2.1 MG/DL (0.55-1.30); POTASSIUM 4.3 MMOL/L (3.5-5.1)
[2020-10-21] MEDS: Eliquis 2.5mg tablet ORAL SCH ×3 (09:00→18:00)
[2020-10-21] MEDS: Docusate 100mg cap ORAL SCH ×5 (09:00→18:00)
--- NOTE | 2020-10-21 11:05 | Infectious Diseases Prog Note ---
Assessment/Plan Assessment/Plan IMPRESSION: Abnormal chest x-ray, atelectasis versus infiltrate in the left lung base, Recent history of COVID disease, Acute renal failure, Severe aortic stenosis Atrial fibrillation, hypothyroidism, Anemia. Chronic DVT of R leg RECOMMENDATION: Continue ceftriaxone. We will follow up the cultures Subjective ROS Limited/Unobtainable: Yes Constitutional: Reports: anorexia Allergies: Coded Allergies: No Known Allergies (Unverified , 10/17/20) Objective Last 24 Hour Vital Signs Date Time Temp Pulse Resp B/P (MAP) Pulse Ox O2 Delivery O2 Flow Rate FiO2 10/21/20 08:00 97.7 65 18 126/8 (47) 95 10/21/20 04:00 98.1 82 20 137/78 (97) 94 10/21/20 04:00 92 10/21/20 00:00 85 10/21/20 00:00 98.4 86 22 136/82 (100) 92 10/20/20 21:00 83 138/72 10/20/20 21:00 Nasal Cannula 4.0 10/20/20 20:00 93 10/20/20 20:00 98.0 71 22 133/85 (101) 94 10/20/20 16:00 83 10/20/20 16:00 97.6 84 20 138/72 (94) 94 10/20/20 12:00 94 10/20/20 12:00 97.2 91 20 154/90 (111) 95 Height (Feet): 5 Weight (Pounds): 145 HEENT: mucous membranes moist Respiratory/Chest: lungs clear Cardiovascular: normal rate Abdomen: soft, non tender Neurologic/Psychiatric: other - sleeping Laboratory Tests Test 10/20/20 11:30 10/21/20 06:44 Stool Occult Blood Pending White Blood Count 6.2 K/UL (4.8-10.8) Red Blood Count 3.14 M/UL (4.20-5.40) L Hemoglobin 9.5 G/DL (12.0-16.0) L Hematocrit 30.4 % (37.0-47.0) L Mean Corpuscular Volume 97 FL (80-99) Mean Corpuscular Hemoglobin 30.2 PG (27.0-31.0) Mean Corpuscular Hemoglobin Concent 31.2 G/DL (32.0-36.0) L Red Cell Distribution Width 18.1 % (11.6-14.8) H Platelet Count 137 K/UL (150-450) L Mean Platelet Volume 8.7 FL (6.5-10.1) Neutrophils (%) (Auto) % (45.0-75.0) Lymphocytes (%) (Auto) % (20.0-45.0) Monocytes (%) (Auto) % (1.0-10.0) Eosinophils (%) (Auto) % (0.0-3.0) Basophils (%) (Auto) % (0.0-2.0) Differential Total Cells Counted 100 Neutrophils % (Manual) 85 % (45-75) H Lymphocytes % (Manual) 10 % (20-45) L Monocytes % (Manual) 5 % (1-10) Eosinophils % (Manual) 0 % (0-3) Basophils % (Manual) 0 % (0-2) Band Neutrophils 0 % (0-8) Platelet Estimate Decreased L Platelet Morphology Normal Hypochromasia 1+ Anisocytosis 1+ Macrocytosis 1+ Sodium Level 136 MMOL/L (136-145) Potassium Level 4.3 MMOL/L (3.5-5.1) Chloride Level 101 MMOL/L (98-107) Carbon Dioxide Level 27 MMOL/L (21-32) Anion Gap 8 mmol/L (5-15) Blood Urea Nitrogen 40 mg/dL (7-18) H Creatinine 2.1 MG/DL (0.55-1.30) H Estimat Glomerular Filtration Rate 22.5 mL/min (>60) Glucose Level 113 MG/DL (74-106) H Calcium Level 7.8 MG/DL (8.5-10.1) L Current Medications Medications (Trade) Dose Ordered Sig/Yolanda Route PRN Reason Start Time Stop Time Status Last Admin Dose Admin Acetaminophen (Tylenol) 500 mg Q6HR PRN ORAL Mild Pain 1-3 10/17/20 17:45 11/16/20 17:44 Acetaminophen (Tylenol) 500 mg Q6HR PRN ORAL fever >100 10/17/20 18:00 11/16/20 17:59 Acetaminophen (Tylenol) 650 mg Q4H PRN ORAL Pain Scale (6-10) 10/17/20 19:15 11/16/20 19:14 Apixaban (Eliquis) 2.5 mg BID ORAL 10/19/20 18:00 01/17/21 17:59 Barium Sulfate (Varibar Honey) 250 ml NOW PRN MC RAD 10/18/20 15:00 10/21/20 14:49 Barium Sulfate (Varibar [place]) 240 ml NOW PRN MC RAD 10/18/20 15:00 10/21/20 14:49 Barium Sulfate (Varibar Pudding) 230 ml NOW PRN MC RAD 10/18/20 15:00 10/21/20 14:49 Barium Sulfate (Varibar Thin Liquid powder) 148 gm NOW PRN MC RAD 10/18/20 15:00 10/21/20 14:49 Ceftriaxone Sodium 1 gm/ Dextrose 55 ml @ 110 mls/hr Q24H IVPB 10/19/20 13:00 10/26/20 12:59 10/20/20 12:25 Chlorhexidine Gluconate (Eve-Hex 2%) 1 applic QHS TOPIC 10/18/20 20:00 01/16/21 19:59 10/18/20 21:00 Dextrose/Sodium Chloride 1,000 ml @ 50 mls/hr Q20H IV 10/17/20 18:45 11/16/20 18:44 10/21/20 02:51 Docusate Sodium (Colace) 100 mg TID ORAL 10/18/20 09:00 11/17/20 08:59 10/19/20 13:07 Famotidine (Pepcid) 20 mg DAILY ORAL 10/18/20 09:00 01/16/21 08:59 10/21/20 09:51 Levothyroxine Sodium (Synthroid) 50 mcg DAILY@0630 ORAL 10/19/20 06:30 11/18/20 06:29 10/21/20 05:18 Metoprolol Tartrate (Lopressor) 25 mg EVERY 12 HOURS ORAL 10/19/20 21:00 01/17/21 20:59 10/19/20 21:38 Midodrine (Pro-Amatine) 10 mg Q8HR ORAL 10/18/20 14:00 01/16/21 13:59 10/21/20 05:18 Ondansetron HCl (Zofran) 4 mg Q6H PRN IVP Nausea & Vomiting 10/17/20 21:15 11/16/20 21:14 Luis Alvarado MD Oct 21, 2020 11:05
--- NOTE | 2020-10-21 11:16 | Pulmonology Progress Note ---
Subjective ROS Limited/Unobtainable: Yes Interval Events: None major reported per nursing Constitutional: Reports: anorexia HEENT: Repors: no symptoms Respiratory: Reports: no symptoms Cardiovascular: Reports: no symptoms Gastrointestinal/Abdominal: Reports: no symptoms Psychiatric: Reports: other - refusing medications Allergies: Coded Allergies: No Known Allergies (Unverified , 10/17/20) Objective Last 24 Hour Vital Signs Date Time Temp Pulse Resp B/P (MAP) Pulse Ox O2 Delivery O2 Flow Rate FiO2 10/21/20 08:00 97.7 65 18 126/8 (47) 95 10/21/20 04:00 98.1 82 20 137/78 (97) 94 10/21/20 04:00 92 10/21/20 00:00 85 10/21/20 00:00 98.4 86 22 136/82 (100) 92 10/20/20 21:00 83 138/72 10/20/20 21:00 Nasal Cannula 4.0 10/20/20 20:00 93 10/20/20 20:00 98.0 71 22 133/85 (101) 94 10/20/20 16:00 83 10/20/20 16:00 97.6 84 20 138/72 (94) 94 10/20/20 12:00 94 10/20/20 12:00 97.2 91 20 154/90 (111) 95 Intake and Output 10/20/20 10/21/20 19:00 07:00 Intake Total 50 ml 540 ml Output Total 400 ml 200 ml Balance -350 ml 340 ml Intake Oral 240 ml IV Total 50 ml 300 ml Output Urine Total 400 ml 200 ml # Bowel Movements 1 General Appearance: no acute distress HEENT: atraumatic Respiratory: lungs clear Cardiovascular: normal rate, regular rhythm Abdomen: soft, non tender Laboratory Tests 10/20/20 11:30: Stool Occult Blood [Pending] 10/21/20 06:44: White Blood Count 6.2, Red Blood Count 3.14L, Hemoglobin 9.5L, Hematocrit 30.4L, Mean Corpuscular Volume 97, Mean Corpuscular Hemoglobin 30.2, Mean Corpuscular Hemoglobin Concent 31.2L, Red Cell Distribution Width 18.1H, Platelet Count 137L , Mean Platelet Volume 8.7, Neutrophils (%) (Auto) , Lymphocytes (%) (Auto) , Monocytes (%) (Auto) , Eosinophils (%) (Auto) , Basophils (%) (Auto) , Differential Total Cells Counted 100, Neutrophils % (Manual) 85H, Lymphocytes % (Manual) 10L, Monocytes % (Manual) 5, Eosinophils % (Manual) 0, Basophils % (Manual) 0, Band Neutrophils 0, Platelet Estimate DecreasedL, Platelet Morphology Normal, Hypochromasia 1+, Anisocytosis 1+, Macrocytosis 1+, Sodium Level 136, Potassium Level 4.3, Chloride Level 101, Carbon Dioxide Level 27, Anion Gap 8, Blood Urea Nitrogen 40H, Creatinine 2.1H, Estimat Glomerular Filtration Rate 22.5, Glucose Level 113H, Calcium Level 7.8L Current Medications Medications (Trade) Dose Ordered Sig/Yolanda Route PRN Reason Start Time Stop Time Status Last Admin Dose Admin Acetaminophen (Tylenol) 500 mg Q6HR PRN ORAL Mild Pain 1-3 10/17/20 17:45 11/16/20 17:44 Acetaminophen (Tylenol) 500 mg Q6HR PRN ORAL fever >100 10/17/20 18:00 11/16/20 17:59 Acetaminophen (Tylenol) 650 mg Q4H PRN ORAL Pain Scale (6-10) 10/17/20 19:15 11/16/20 19:14 Apixaban (Eliquis) 2.5 mg BID ORAL 10/19/20 18:00 01/17/21 17:59 Barium Sulfate (Varibar Honey) 250 ml NOW PRN MC RAD 10/18/20 15:00 10/21/20 14:49 Barium Sulfate (Varibar [place]) 240 ml NOW PRN MC RAD 10/18/20 15:00 10/21/20 14:49 Barium Sulfate (Varibar [place]ud[place]) 230 ml NOW PRN MC RAD 10/18/20 15:00 10/21/20 14:49 Barium Sulfate (Varibar Thin Liquid powder) 148 gm NOW PRN MC RAD 10/18/20 15:00 10/21/20 14:49 Ceftriaxone Sodium 1 gm/ Dextrose 55 ml @ 110 mls/hr Q24H IVPB 10/19/20 13:00 10/26/20 12:59 10/20/20 12:25 Chlorhexidine Gluconate (Eve-Hex 2%) 1 applic QHS TOPIC 10/18/20 20:00 01/16/21 19:59 10/18/20 21:00 Dextrose/Sodium Chloride 1,000 ml @ 50 mls/hr Q20H IV 10/17/20 18:45 11/16/20 18:44 10/21/20 02:51 Docusate Sodium (Colace) 100 mg TID ORAL 10/18/20 09:00 11/17/20 08:59 10/19/20 13:07 Famotidine (Pepcid) 20 mg DAILY ORAL 10/18/20 09:00 01/16/21 08:59 10/21/20 09:51 Levothyroxine Sodium (Synthroid) 50 mcg DAILY@0630 ORAL 10/19/20 06:30 11/18/20 06:29 10/21/20 05:18 Metoprolol Tartrate (Lopressor) 25 mg EVERY 12 HOURS ORAL 10/19/20 21:00 01/17/21 20:59 10/19/20 21:38 Midodrine (Pro-Amatine) 10 mg Q8HR ORAL 10/18/20 14:00 01/16/21 13:59 10/21/20 05:18 Ondansetron HCl (Zofran) 4 mg Q6H PRN IVP Nausea & Vomiting 10/17/20 21:15 11/16/20 21:14 Assessment/Plan Assessment/Plan 1. CHF, mild. 2. CAD/previous non-STEMI. 3. long term resident. 4. Bradycardia. 5. Atrial fibrillation. -Started on Eliquis 6. Renal insufficiency. -Nephro following 7. Troponin leak. Cardio following 8. COVID-19 pneumonia, without fever or leukocytosis -On antibiotics per ID - We will hold off any specific therapy says she remains normoxemic on room air/low flow O2 9. Hypoxemia -Currently saturating well on 4L NC; wean as tolerated Chronic DVT in the right LE - s/p Lovenox subcu -Now on Eliquis - The care of this patient was discussed with my supervising physician Time spent for this encounter was approximately 31 minutes Tl Pedro Oct 21, 2020 11:16
--- NOTE | 2020-10-21 12:07 | Cardiac Electrophysiology PN ---
Assessment/Plan Assessment/Plan 1. Non-ST elevation myocardial infarction with elevated troponin of more than 0.2. The level has come down to 0.19, but the levels are flat and likely due to renal failure as the creatinine is 2.1. On aspirin and Lopressor 25 bid 2. Atrial fibrillation with rapid ventricular response. On Lopressor 25 bid and Eliquis 2.5 bid 3. Questionable bradycardia. The heart rate has been in the 80s and 90s. It is possible that they could not record the heart beat in view of the patient's atrial fibrillation. 4. History of previous non-ST elevation myocardial infarction. 5. Renal insufficiency.Cr still 2.1 6. Status post COVID pneumonia, was tested positive more than two weeks ago DW RN Subjective Subjective Not eating much on D51/2 NS in Covid isolation. Refusing meds Sat 92% on RA Atrial fib rate controlled in 80s Objective Last 24 Hour Vital Signs Date Time Temp Pulse Resp B/P (MAP) Pulse Ox O2 Delivery O2 Flow Rate FiO2 10/21/20 08:00 97.7 65 18 126/8 (47) 95 10/21/20 04:00 98.1 82 20 137/78 (97) 94 10/21/20 04:00 92 10/21/20 00:00 85 10/21/20 00:00 98.4 86 22 136/82 (100) 92 10/20/20 21:00 83 138/72 10/20/20 21:00 Nasal Cannula 4.0 10/20/20 20:00 93 10/20/20 20:00 98.0 71 22 133/85 (101) 94 10/20/20 16:00 83 10/20/20 16:00 97.6 84 20 138/72 (94) 94 Intake and Output 10/20/20 10/21/20 19:00 07:00 Intake Total 50 ml 540 ml Output Total 400 ml 200 ml Balance -350 ml 340 ml Intake Oral 240 ml IV Total 50 ml 300 ml Output Urine Total 400 ml 200 ml # Bowel Movements 1 Laboratory Tests Test 10/21/20 06:44 White Blood Count 6.2 K/UL (4.8-10.8) Red Blood Count 3.14 M/UL (4.20-5.40) L Hemoglobin 9.5 G/DL (12.0-16.0) L Hematocrit 30.4 % (37.0-47.0) L Mean Corpuscular Volume 97 FL (80-99) Mean Corpuscular Hemoglobin 30.2 PG (27.0-31.0) Mean Corpuscular Hemoglobin Concent 31.2 G/DL (32.0-36.0) L Red Cell Distribution Width 18.1 % (11.6-14.8) H Platelet Count 137 K/UL (150-450) L Mean Platelet Volume 8.7 FL (6.5-10.1) Neutrophils (%) (Auto) % (45.0-75.0) Lymphocytes (%) (Auto) % (20.0-45.0) Monocytes (%) (Auto) % (1.0-10.0) Eosinophils (%) (Auto) % (0.0-3.0) Basophils (%) (Auto) % (0.0-2.0) Differential Total Cells Counted 100 Neutrophils % (Manual) 85 % (45-75) H Lymphocytes % (Manual) 10 % (20-45) L Monocytes % (Manual) 5 % (1-10) Eosinophils % (Manual) 0 % (0-3) Basophils % (Manual) 0 % (0-2) Band Neutrophils 0 % (0-8) Platelet Estimate Decreased L Platelet Morphology Normal Hypochromasia 1+ Anisocytosis 1+ Macrocytosis 1+ Sodium Level 136 MMOL/L (136-145) Potassium Level 4.3 MMOL/L (3.5-5.1) Chloride Level 101 MMOL/L (98-107) Carbon Dioxide Level 27 MMOL/L (21-32) Anion Gap 8 mmol/L (5-15) Blood Urea Nitrogen 40 mg/dL (7-18) H Creatinine 2.1 MG/DL (0.55-1.30) H Estimat Glomerular Filtration Rate 22.5 mL/min (>60) Glucose Level 113 MG/DL (74-106) H Calcium Level 7.8 MG/DL (8.5-10.1) L Objective HEAD AND NECK: No JVD. LUNGS: Decreased breath sounds. CARDIOVASCULAR: Irregular S1 and S2 with no gallop. ABDOMEN: Soft. EXTREMITIES: No pitting edema. Terry Reyes MD Oct 21, 2020 12:07
--- NOTE | 2020-10-21 13:06 | Surgery Progress Note ---
Surgery Progress Note Subjective Symptoms: improved, tolerating diet, passing flatus Objective Last 24 Hour Vital Signs Date Time Temp Pulse Resp B/P (MAP) Pulse Ox O2 Delivery O2 Flow Rate FiO2 10/21/20 12:00 97.9 73 17 147/60 (89) 95 10/21/20 09:00 Nasal Cannula 4.0 10/21/20 08:00 97.7 65 18 126/87 (100) 95 10/21/20 08:00 81 10/21/20 04:00 98.1 82 20 137/78 (97) 94 10/21/20 04:00 92 10/21/20 00:00 85 10/21/20 00:00 98.4 86 22 136/82 (100) 92 10/20/20 21:00 83 138/72 10/20/20 21:00 Nasal Cannula 4.0 10/20/20 20:00 93 10/20/20 20:00 98.0 71 22 133/85 (101) 94 10/20/20 16:00 83 10/20/20 16:00 97.6 84 20 138/72 (94) 94 I&O Intake and Output 10/20/20 10/21/20 19:00 07:00 Intake Total 50 ml 540 ml Output Total 400 ml 200 ml Balance -350 ml 340 ml Intake Oral 240 ml IV Total 50 ml 300 ml Output Urine Total 400 ml 200 ml # Bowel Movements 1 Dressing: saturated Cardiovascular: RSR Respiratory: decreased breath sounds Abdomen: soft, flat, non-tender, present bowel sounds, non-distended Extremities: no edema, no tenderness, no cyanosis Laboratory Tests Test 10/21/20 06:44 White Blood Count 6.2 K/UL (4.8-10.8) Red Blood Count 3.14 M/UL (4.20-5.40) L Hemoglobin 9.5 G/DL (12.0-16.0) L Hematocrit 30.4 % (37.0-47.0) L Mean Corpuscular Volume 97 FL (80-99) Mean Corpuscular Hemoglobin 30.2 PG (27.0-31.0) Mean Corpuscular Hemoglobin Concent 31.2 G/DL (32.0-36.0) L Red Cell Distribution Width 18.1 % (11.6-14.8) H Platelet Count 137 K/UL (150-450) L Mean Platelet Volume 8.7 FL (6.5-10.1) Neutrophils (%) (Auto) % (45.0-75.0) Lymphocytes (%) (Auto) % (20.0-45.0) Monocytes (%) (Auto) % (1.0-10.0) Eosinophils (%) (Auto) % (0.0-3.0) Basophils (%) (Auto) % (0.0-2.0) Differential Total Cells Counted 100 Neutrophils % (Manual) 85 % (45-75) H Lymphocytes % (Manual) 10 % (20-45) L Monocytes % (Manual) 5 % (1-10) Eosinophils % (Manual) 0 % (0-3) Basophils % (Manual) 0 % (0-2) Band Neutrophils 0 % (0-8) Platelet Estimate Decreased L Platelet Morphology Normal Hypochromasia 1+ Anisocytosis 1+ Macrocytosis 1+ Sodium Level 136 MMOL/L (136-145) Potassium Level 4.3 MMOL/L (3.5-5.1) Chloride Level 101 MMOL/L (98-107) Carbon Dioxide Level 27 MMOL/L (21-32) Anion Gap 8 mmol/L (5-15) Blood Urea Nitrogen 40 mg/dL (7-18) H Creatinine 2.1 MG/DL (0.55-1.30) H Estimat Glomerular Filtration Rate 22.5 mL/min (>60) Glucose Level 113 MG/DL (74-106) H Calcium Level 7.8 MG/DL (8.5-10.1) L Plan Problems: (1) Anemia (2) Acute kidney injury (3) Atrial fibrillation (4) Hyperkalemia (5) Elevated troponin (6) Decubitus skin ulcer Assessment & Plan: Pt presented on admission with Multiple Medical Comorbidities including Covid-19 and Pressure Injuries. Primary Nurse reported Pt has been declining food and medications. Sacral DTPI that is evolving noted to Sacrum(L)6cm x (W)12.5cm.. Scattered Purpuric areas that are indurated noted to R and L cheek. Small wound that is 1 00% slough (L)0.6cm x (W)0.7cm noted at sacrococcygeal area within base of DTPI. MASD noted to Perineum and skin folds of Medial/posterior aspects of Both upper thighs. Affected areas are erythematous and macerated with scattered satellite lesions. DTPI L Heel (L)3cm x (W)4cm, Base of heel is maroon and fluctuant with small purpuric area (L)0.4cm x (W)0.9cm within base of DTPI. l Foot including toes are mottled and cool to touch. L Heel is boggy. L Heel including toes are Mottled and cool to touch. Tx.Plan: Apply Moisture Barrier Paste to Sacrum. Cover with Optifoam drsg.Change every 3 days and prn. Apply Moisture Barrier Paste to abdominal folds, Perineum and skin folds of both upper thighs. Apply Cavilon Skin Barrier to both heels. Cover each Heel with Optifoam drsg. Change every 7 days and prn. Reposition at least every 2hours or as tolerated. Off-load heels with pillow. (7) Malnutrition Jim Orosco Oct 21, 2020 13:06
[2020-10-21] MEDS ORDERED: NIACIN500 M1 PO (13:28)
[2020-10-21] MEDS ORDERED: RANEXA500 MG ORAL (13:28)
[2020-10-21] MEDS ORDERED: NITRO-DUR1 EAC1 TD (13:28)
[2020-10-21] MEDS ORDERED: MILK OF MA400 MG/51 ORAL (13:28)
[2020-10-21] MEDS: cefTRIAXone 1 GM in D5W 55 ML IVPB SCH (13:33)
--- NOTE | 2020-10-21 15:26 | NUR ---
NURSE NOTES: Patient had been refusing PO medication today. RN trying to administer PO meds but patient spitting.
--- NOTE | 2020-10-21 15:27 | NUR ---
NURSE NOTES: Patient weaned off O2, tolerating room air well, saturating at 97.
--- NOTE | 2020-10-21 16:09 | NUR ---
CASE MANAGEMENT: REVIEW 10/21/2020 SI:COVID PNA VS: T 97.9 HR 73 RR 17 B/P 147/60 SATS 95% ON 4L/NC LABS: BUN 40 CR 2.1 GLU 113 CA 7.8 IS:D51/2NS @ 50 ML/HR LOPRESSOR PO Q12H ELIQUIS PO BID CEFTRIAXONE IV Q24H TELE PLAN OF CARE: MARKO BLOUNT
--- NOTE | 2020-10-21 16:10 | Nephrology Progress Note ---
Assessment/Plan Problem List: (1) Acute kidney injury (2) Anemia (3) Hyperkalemia (4) Elevated troponin (5) Pneumonia due to COVID-19 virus (6) Hypothyroidism Assessment Plan October 21: Labs reviewed. Serum creatinine unchanged. Continue per consultants. Continue to monitor renal parameters. October 20: Today's labs reviewed. Serum creatinine unchanged. RN reports patient not taking any p.o. meds. Continue per consultants. Serum creatinine appears to be baseline. October 19: Today's labs still not done yet. RN informed. Albumin bolus given again. Continue to monitor electrolytes and renal parameters. Per orders October 18: Patient hypotensive. Due for blood transfusion. Will give albumin bolus. Continue to monitor renal parameters and electrolytes. Labs and medication list reviewed Subjective ROS Limited/Unobtainable: No Constitutional: Reports: malaise, weakness Objective Objective Last 24 Hour Vital Signs Date Time Temp Pulse Resp B/P (MAP) Pulse Ox O2 Delivery O2 Flow Rate FiO2 10/21/20 12:00 80 10/21/20 12:00 97.9 73 17 147/60 (89) 95 10/21/20 09:00 Nasal Cannula 4.0 10/21/20 08:00 97.7 65 18 126/87 (100) 95 10/21/20 08:00 81 10/21/20 04:00 98.1 82 20 137/78 (97) 94 10/21/20 04:00 92 10/21/20 00:00 85 10/21/20 00:00 98.4 86 22 136/82 (100) 92 10/20/20 21:00 83 138/72 10/20/20 21:00 Nasal Cannula 4.0 10/20/20 20:00 93 10/20/20 20:00 98.0 71 22 133/85 (101) 94 Intake and Output 10/20/20 10/21/20 19:00 07:00 Intake Total 50 ml 540 ml Output Total 400 ml 200 ml Balance -350 ml 340 ml Intake Oral 240 ml IV Total 50 ml 300 ml Output Urine Total 400 ml 200 ml # Bowel Movements 1 Current Medications Medications (Trade) Dose Ordered Sig/Yolanda Route PRN Reason Start Time Stop Time Status Last Admin Dose Admin Acetaminophen (Tylenol) 500 mg Q6HR PRN ORAL Mild Pain 1-3 10/17/20 17:45 11/16/20 17:44 Acetaminophen (Tylenol) 500 mg Q6HR PRN ORAL fever >100 10/17/20 18:00 11/16/20 17:59 Acetaminophen (Tylenol) 650 mg Q4H PRN ORAL Pain Scale (6-10) 10/17/20 19:15 11/16/20 19:14 Apixaban (Eliquis) 2.5 mg BID ORAL 10/19/20 18:00 01/17/21 17:59 Ceftriaxone Sodium 1 gm/ Dextrose 55 ml @ 110 mls/hr Q24H IVPB 10/19/20 13:00 10/26/20 12:59 10/21/20 13:33 Chlorhexidine Gluconate (Eve-Hex 2%) 1 applic QHS TOPIC 10/18/20 20:00 01/16/21 19:59 10/18/20 21:00 Dextrose/Sodium Chloride 1,000 ml @ 50 mls/hr Q20H IV 10/17/20 18:45 11/16/20 18:44 10/21/20 02:51 Docusate Sodium (Colace) 100 mg TID ORAL 10/18/20 09:00 11/17/20 08:59 10/19/20 13:07 Famotidine (Pepcid) 20 mg DAILY ORAL 10/18/20 09:00 01/16/21 08:59 10/21/20 09:51 Levothyroxine Sodium (Synthroid) 50 mcg DAILY@0630 ORAL 10/19/20 06:30 11/18/20 06:29 10/21/20 05:18 Metoprolol Tartrate (Lopressor) 25 mg EVERY 12 HOURS ORAL 10/19/20 21:00 01/17/21 20:59 10/19/20 21:38 Midodrine (Pro-Amatine) 10 mg Q8HR ORAL 10/18/20 14:00 01/16/21 13:59 10/21/20 05:18 Ondansetron HCl (Zofran) 4 mg Q6H PRN IVP Nausea & Vomiting 10/17/20 21:15 11/16/20 21:14 Laboratory Tests 10/21/20 06:44: White Blood Count 6.2, Red Blood Count 3.14L, Hemoglobin 9.5L, Hematocrit 30.4L, Mean Corpuscular Volume 97, Mean Corpuscular Hemoglobin 30.2, Mean Corpuscular Hemoglobin Concent 31.2L, Red Cell Distribution Width 18.1H, Platelet Count 137L , Mean Platelet Volume 8.7, Neutrophils (%) (Auto) , Lymphocytes (%) (Auto) , Monocytes (%) (Auto) , Eosinophils (%) (Auto) , Basophils (%) (Auto) , Differential Total Cells Counted 100, Neutrophils % (Manual) 85H, Lymphocytes % (Manual) 10L, Monocytes % (Manual) 5, Eosinophils % (Manual) 0, Basophils % (Manual) 0, Band Neutrophils 0, Platelet Estimate DecreasedL, Platelet Morphology Normal, Hypochromasia 1+, Anisocytosis 1+, Macrocytosis 1+, Sodium Level 136, Potassium Level 4.3, Chloride Level 101, Carbon Dioxide Level 27, Anion Gap 8, Blood Urea Nitrogen 40H, Creatinine 2.1H, Estimat Glomerular Filtration Rate 22.5, Glucose Level 113H, Calcium Level 7.8L Height (Feet): 5 Weight (Pounds): 145 General Appearance: no apparent distress, lethargic Cardiovascular: normal rate Respiratory/Chest: decreased breath sounds Abdomen: distended Dustin Gómez MD Oct 21, 2020 16:10
--- NOTE | 2020-10-21 16:58 | NUR ---
Speech Note (Dysphagia follow up) S: Pt is still NPO. O: 1. PO given: I offered the popsicle and cranberry juice. She was able to self feed on right hand and took a bite of popsicle and tolerated without s.s of aspiration. After 1st bite, then she refused 2nd bite. After this was done, I offered her a cup of cranberry juice, she took few sips and tolerated without s.s of aspiration. I continued to offer but she refused further PO. A: 1. Functional swallow 2. Failure to thrive 3. abnormal electrolytes in setting of heart failure, NSTEMI, elevated BNP, etc.. P/Rec. 1. Pureed and thin liquid 2.3. Goal of care discussion Neptali Sanderson
--- NOTE | 2020-10-21 18:38 | NUR ---
NURSE HAND-OFF REPORT: Important Events on Shift: Patient refusing PO medication and oral intake. Patient Status: awake, non compliant Diet: puree nectal thick liquids Pending Orders: Pending Results/Labs: Pending MD notification: Latest Vital Signs: Temperature 98.1 , Pulse 81 , B/P 157 /55 , Respiratory Rate 16 , O2 SAT 96 , Nasal Cannula, O2 Flow Rate 4.0 . Vital Sign Comment: EKG Rhythm: A-fib Rhythm change?: N MD Notified?: - MD Response: Latest Elizabeth Fall Score: 70 Fall Risk: High Risk Safety Measures: Call light Within Reach, Bed Alarm Zone 1, Side Rails Side Rails x3, Bed position Low and Locked. Fall Precautions: Yellow Socks Patient Fall Education . Addendum: 10/21/20 at 1926 by Elsy Luna RN NURSE NOTES: Report given to Lashae HILL
--- NOTE | 2020-10-21 18:57 | General Progress Note ---
Subjective ROS Limited/Unobtainable: Yes Allergies: Coded Allergies: No Known Allergies (Unverified , 10/17/20) Objective Last 24 Hour Vital Signs Date Time Temp Pulse Resp B/P (MAP) Pulse Ox O2 Delivery O2 Flow Rate FiO2 10/21/20 16:00 98.1 65 16 157/55 (89) 96 10/21/20 16:00 81 10/21/20 12:00 80 10/21/20 12:00 97.9 73 17 147/60 (89) 95 10/21/20 09:00 Nasal Cannula 4.0 10/21/20 08:00 97.7 65 18 126/87 (100) 95 10/21/20 08:00 81 10/21/20 04:00 98.1 82 20 137/78 (97) 94 10/21/20 04:00 92 10/21/20 00:00 85 10/21/20 00:00 98.4 86 22 136/82 (100) 92 10/20/20 21:00 83 138/72 10/20/20 21:00 Nasal Cannula 4.0 10/20/20 20:00 93 10/20/20 20:00 98.0 71 22 133/85 (101) 94 Intake and Output 10/20/20 10/21/20 19:00 07:00 Intake Total 50 ml 540 ml Output Total 400 ml 200 ml Balance -350 ml 340 ml Intake Oral 240 ml IV Total 50 ml 300 ml Output Urine Total 400 ml 200 ml # Bowel Movements 1 Laboratory Tests 10/21/20 06:44: White Blood Count 6.2, Red Blood Count 3.14L, Hemoglobin 9.5L, Hematocrit 30.4L, Mean Corpuscular Volume 97, Mean Corpuscular Hemoglobin 30.2, Mean Corpuscular Hemoglobin Concent 31.2L, Red Cell Distribution Width 18.1H, Platelet Count 137L , Mean Platelet Volume 8.7, Neutrophils (%) (Auto) , Lymphocytes (%) (Auto) , Monocytes (%) (Auto) , Eosinophils (%) (Auto) , Basophils (%) (Auto) , Differential Total Cells Counted 100, Neutrophils % (Manual) 85H, Lymphocytes % (Manual) 10L, Monocytes % (Manual) 5, Eosinophils % (Manual) 0, Basophils % (Manual) 0, Band Neutrophils 0, Platelet Estimate DecreasedL, Platelet Morphology Normal, Hypochromasia 1+, Anisocytosis 1+, Macrocytosis 1+, Sodium Level 136, Potassium Level 4.3, Chloride Level 101, Carbon Dioxide Level 27, Anion Gap 8, Blood Urea Nitrogen 40H, Creatinine 2.1H, Estimat Glomerular Filtration Rate 22.5, Glucose Level 113H, Calcium Level 7.8L Height (Feet): 5 Weight (Pounds): 145 Assessment/Plan Problem List: (1) Anemia ICD Codes: D64.9 - Anemia, unspecified SNOMED: 916537490 (2) Acute kidney injury ICD Codes: N17.9 - Acute kidney failure, unspecified SNOMED: 63653054, 9043968 (3) Atrial fibrillation ICD Codes: I48.91 - Unspecified atrial fibrillation SNOMED: 09724993 (4) Elevated troponin ICD Codes: R77.8 - Other specified abnormalities of plasma proteins SNOMED: 140793468, 125754855, 061628204 (5) Malnutrition ICD Codes: E46 - Unspecified protein-calorie malnutrition SNOMED: 71246350 (6) Pneumonia due to COVID-19 virus ICD Codes: U07.1 - COVID-19; J12.82 - Pneumonia due to coronavirus disease 2019 SNOMED: 259033453720727936 (7) Hypothyroidism ICD Codes: E03.9 - Hypothyroidism, unspecified SNOMED: 90084412 Status: progressing Assessment/Plan: anemia arf reckech trop afebrile covid + s/p bradycardia AZOTEMIA improving reviewed chart and labs weak malnutrtion Neri Dumont MD Oct 21, 2020 18:57
--- NOTE | 2020-10-21 19:03 | NUR ---
NURSE NOTES: Received report from SERGIO Chin. Pt is A/O x2 and verbally responsive. Pt speaking Farsi. No SOB or acute distress noted and pt is now on RA and tolerating well with the saturation 95%. Pt has a IV running IV fluid running on [place] as ordered. No pain noted. Pt bed in lowest position and locked with side rails x2. Call light placed within reach. Was endorsed that pt is refusing all food including crushed medications. Will continue plan of care.
[2020-10-21] MEDS: Dyna-Hex 2% Top Sol 2oz TOPIC SCH (20:27)
[2020-10-22] VITALS: BP 150/69
[2020-10-22 04:00] VITALS: BP 112/71
[2020-10-22] MEDS: Midodrine 10mg tab ORAL SCH ×3 (05:31→22:00)
--- NOTE | 2020-10-22 05:31 | NUR ---
NURSE NOTES: Pt refuses all medication and food attempted to also give water refused to open her mouth.
--- NOTE | 2020-10-22 06:34 | NUR ---
NURSE HAND-OFF REPORT: Important Events on Shift: Pt refusing anything by mouth. Patient Status: Stable Diet: Puree Pending Orders: Pending Results/Labs: Pending MD notification: Latest Vital Signs: Temperature 98.0 , Pulse 88 , B/P 112 /71 , Respiratory Rate 17 , O2 SAT 94 , Nasal Cannula, O2 Flow Rate 4.0 . Vital Sign Comment: EKG Rhythm: A-fib Rhythm change?: N MD Notified?: - MD Response: Latest Elizabeth Fall Score: 70 Fall Risk: High Risk Safety Measures: Call light Within Reach, Bed Alarm Zone 1, Side Rails Side Rails x3, Bed position Low and Locked. Fall Precautions: Yellow Socks Patient Fall Education Report given to Maria D.
--- NOTE | 2020-10-22 06:50 | Hematology/Onc Progress Note ---
Assessment/Plan Assessment/Plan Assessment and recs # Anemia r/o gi bleed --> anemia panel has been ordered-->reviewed --> hgb 8.1->9.3->9.7-->9.5 --> no hemolysis is noted --> transfuse on prn basis # Thrombocytopenia likely due to reactive process --> plt 138 --> viral w/u neg # Hypercoag disorder with Atrial fibrillation --> consider anticoag as per cards --> if bleeding, consider hold anticoag # Elevated trop --> per cards # Hyperkalemia --> per renal # Acute kidney injury --> per renal # Recently COVID-19 positive # Dvt ppx scds --> lovenox sq Appreciate consultation and rosio eugene Subjective Constitutional: Denies: no symptoms, chills, fever, malaise, weakness, other HEENT: Denies: no symptoms, eye pain, blurred vision, tearing, double vision, ear pain, ear discharge, nose pain, nose congestion, throat pain, throat swelling, mouth pain, mouth swelling, other Cardiovascular: Denies: no symptoms, chest pain, edema, irregular heart rate, lightheadedness, palpitations, syncope, other Respiratory: Denies: no symptoms, cough, shortness of breath, SOB with excertion, SOB at rest, sputum, wheezing, other Genitourinary: Denies: no symptoms, burning, discharge, frequency, flank pain, hematuria, incontinence, pain, urgency, other Neurologic/Psychiatric: Denies: no symptoms, anxiety, depressed, emotional problems, headache, numbness, paresthesia, pre-existing deficit, seizure, tingling, tremors, weakness, other Endocrine: Denies: no symptoms, excessive sweating, flushing, intolerance to cold, intolerance to heat, increased hunger, increased thirst, increased urine, unexplained weight gain, unexplained weight loss, other Hematologic/Lymphatic: Denies: no symptoms, anemia, easy bleeding, easy bruising, adenopathy, other Allergies: Coded Allergies: No Known Allergies (Unverified , 10/17/20) Subjective 10/19 cbc is pending, did get blood transfusion last night, pending results 10/20 meds noted, no bleeding, labs reviewed, rosio eugene, no new changes 10/21 on 4l nc, has been refusing labs, meds noted, no bleeding 10/22 nc, refusing meds labs reviewed, rosio rn Objective Objective Current Medications Medications (Trade) Dose Ordered Sig/Yolnada Route PRN Reason Start Time Stop Time Status Last Admin Dose Admin Acetaminophen (Tylenol) 500 mg Q6HR PRN ORAL Mild Pain 1-3 10/17/20 17:45 11/16/20 17:44 Acetaminophen (Tylenol) 500 mg Q6HR PRN ORAL fever >100 10/17/20 18:00 11/16/20 17:59 Acetaminophen (Tylenol) 650 mg Q4H PRN ORAL Pain Scale (6-10) 10/17/20 19:15 11/16/20 19:14 Apixaban (Eliquis) 2.5 mg BID ORAL 10/19/20 18:00 01/17/21 17:59 Ceftriaxone Sodium 1 gm/ Dextrose 55 ml @ 110 mls/hr Q24H IVPB 10/19/20 13:00 10/26/20 12:59 10/21/20 13:33 Chlorhexidine Gluconate (Eve-Hex 2%) 1 applic QHS TOPIC 10/18/20 20:00 01/16/21 19:59 10/18/20 21:00 Dextrose/Sodium Chloride 1,000 ml @ 50 mls/hr Q20H IV 10/17/20 18:45 11/16/20 18:44 10/21/20 22:59 Docusate Sodium (Colace) 100 mg TID ORAL 10/18/20 09:00 11/17/20 08:59 10/19/20 13:07 Famotidine (Pepcid) 20 mg DAILY ORAL 10/18/20 09:00 01/16/21 08:59 10/21/20 09:51 Levothyroxine Sodium (Synthroid) 50 mcg DAILY@0630 ORAL 10/19/20 06:30 11/18/20 06:29 10/21/20 05:18 Metoprolol Tartrate (Lopressor) 25 mg EVERY 12 HOURS ORAL 10/19/20 21:00 01/17/21 20:59 10/21/20 20:26 Midodrine (Pro-Amatine) 10 mg Q8HR ORAL 10/18/20 14:00 01/16/21 13:59 10/21/20 20:27 Ondansetron HCl (Zofran) 4 mg Q6H PRN IVP Nausea & Vomiting 10/17/20 21:15 11/16/20 21:14 Last 24 Hour Vital Signs Date Time Temp Pulse Resp B/P (MAP) Pulse Ox O2 Delivery O2 Flow Rate FiO2 10/22/20 04:00 88 10/22/20 04:00 98.0 96 17 112/71 (85) 94 10/22/20 00:00 97.9 70 18 150/69 (96) 96 10/21/20 21:25 Nasal Cannula 4.0 10/21/20 20:26 81 157/55 10/21/20 20:00 96.8 85 18 143/68 (93) 96 10/21/20 20:00 85 10/21/20 16:00 98.1 65 16 157/55 (89) 96 10/21/20 16:00 81 10/21/20 12:00 80 10/21/20 12:00 97.9 73 17 147/60 (89) 95 10/21/20 09:00 Nasal Cannula 4.0 10/21/20 08:00 97.7 65 18 126/87 (100) 95 10/21/20 08:00 81 10/21/20 04:00 98.1 82 20 137/78 (97) 94 10/21/20 04:00 92 10/21/20 00:00 85 10/21/20 00:00 98.4 86 22 136/82 (100) 92 10/20/20 21:00 83 138/72 10/20/20 21:00 Nasal Cannula 4.0 10/20/20 20:00 93 10/20/20 20:00 98.0 71 22 133/85 (101) 94 10/20/20 16:00 83 10/20/20 16:00 97.6 84 20 138/72 (94) 94 10/20/20 12:00 94 10/20/20 12:00 97.2 91 20 154/90 (111) 95 10/20/20 09:00 Nasal Cannula 4.0 10/20/20 08:52 64 139/78 10/20/20 08:00 97.0 64 20 139/78 (98) 91 10/20/20 08:00 87 Intake and Output 10/21/20 10/22/20 19:00 07:00 Output Total 200 ml 200 ml Balance -200 ml -200 ml Output Urine Total 200 ml 200 ml # Bowel Movements 2 Labs Test 10/19/20 11:00 10/20/20 07:16 10/20/20 11:30 10/21/20 06:44 White Blood Count 6.5 K/UL (4.8-10.8) 6.3 K/UL (4.8-10.8) 6.2 K/UL (4.8-10.8) Red Blood Count 3.29 M/UL (4.20-5.40) 3.09 M/UL (4.20-5.40) 3.14 M/UL (4.20-5.40) Hemoglobin 9.7 G/DL (12.0-16.0) 9.5 G/DL (12.0-16.0) 9.5 G/DL (12.0-16.0) Hematocrit 31.9 % (37.0-47.0) 29.7 % (37.0-47.0) 30.4 % (37.0-47.0) Mean Corpuscular Volume 97 FL (80-99) 96 FL (80-99) 97 FL (80-99) Mean Corpuscular Hemoglobin 29.5 PG (27.0-31.0) 30.6 PG (27.0-31.0) 30.2 PG (27.0-31.0) Mean Corpuscular Hemoglobin Concent 30.4 G/DL (32.0-36.0) 32.0 G/DL (32.0-36.0) 31.2 G/DL (32.0-36.0) Red Cell Distribution Width 18.6 % (11.6-14.8) 18.2 % (11.6-14.8) 18.1 % (11.6-14.8) Platelet Count 134 K/UL (150-450) 138 K/UL (150-450) 137 K/UL (150-450) Mean Platelet Volume 9.1 FL (6.5-10.1) 8.8 FL (6.5-10.1) 8.7 FL (6.5-10.1) Neutrophils (%) (Auto) 84.3 % (45.0-75.0) % (45.0-75.0) % (45.0-75.0) Lymphocytes (%) (Auto) 8.2 % (20.0-45.0) % (20.0-45.0) % (20.0-45.0) Monocytes (%) (Auto) 5.6 % (1.0-10.0) % (1.0-10.0) % (1.0-10.0) Eosinophils (%) (Auto) 0.7 % (0.0-3.0) % (0.0-3.0) % (0.0-3.0) Basophils (%) (Auto) 1.1 % (0.0-2.0) % (0.0-2.0) % (0.0-2.0) Sodium Level 137 MMOL/L (136-145) 136 MMOL/L (136-145) 136 MMOL/L (136-145) Potassium Level 5.0 MMOL/L (3.5-5.1) 4.5 MMOL/L (3.5-5.1) 4.3 MMOL/L (3.5-5.1) Chloride Level 100 MMOL/L (98-107) 101 MMOL/L (98-107) 101 MMOL/L (98-107) Carbon Dioxide Level 31 MMOL/L (21-32) 29 MMOL/L (21-32) 27 MMOL/L (21-32) Anion Gap 6 mmol/L (5-15) 6 mmol/L (5-15) 8 mmol/L (5-15) Blood Urea Nitrogen 44 mg/dL (7-18) 43 mg/dL (7-18) 40 mg/dL (7-18) Creatinine 2.1 MG/DL (0.55-1.30) 2.1 MG/DL (0.55-1.30) 2.1 MG/DL (0.55-1.30) Estimat Glomerular Filtration Rate 22.5 mL/min (>60) 22.5 mL/min (>60) 22.5 mL/min (>60) Glucose Level 93 MG/DL (74-106) 106 MG/DL (74-106) 113 MG/DL (74-106) Uric Acid 9.4 MG/DL (2.6-7.2) Calcium Level 8.2 MG/DL (8.5-10.1) 8.2 MG/DL (8.5-10.1) 7.8 MG/DL (8.5-10.1) Phosphorus Level 3.2 MG/DL (2.5-4.9) Magnesium Level 2.5 MG/DL (1.8-2.4) Total Bilirubin 1.0 MG/DL (0.2-1.0) Aspartate Amino Transf (AST/SGOT) 16 U/L (15-37) Alanine Aminotransferase (ALT/SGPT) 12 U/L (12-78) Alkaline Phosphatase 57 U/L (46-116) C-Reactive Protein, Quantitative 4.2 mg/dL (0.00-0.90) Pro-B-Type Natriuretic Peptide > 28727 pg/mL (0-125) Total Protein 5.6 G/DL (6.4-8.2) Albumin 2.7 G/DL (3.4-5.0) Globulin 2.9 g/dL Albumin/Globulin Ratio 0.9 (1.0-2.7) Free Triiodothyronine 0.6 pg/mL (2.3-4.2) Differential Total Cells Counted 100 100 Neutrophils % (Manual) 82 % (45-75) 85 % (45-75) Lymphocytes % (Manual) 10 % (20-45) 10 % (20-45) Monocytes % (Manual) 4 % (1-10) 5 % (1-10) Eosinophils % (Manual) 2 % (0-3) 0 % (0-3) Basophils % (Manual) 0 % (0-2) 0 % (0-2) Band Neutrophils 2 % (0-8) 0 % (0-8) Platelet Estimate Decreased Decreased Platelet Morphology Normal Normal Hypochromasia 1+ 1+ Anisocytosis 1+ 1+ Stool Occult Blood Positive (NEGATIVE) Macrocytosis 1+ Height (Feet): 5 Weight (Pounds): 145 Objective Physical Exam General: Awake and alert, no acute distress HEENT: NC/AT. EOMI. Cardiovascular: Irregularly irregular rhythm. Normal heart rate Resp: Normal work of breathing. No cough, wheezing or crackles appreciated Abdomen: Abdomen is soft, nondistended. Nontender Skin: Intact. No abrasions, laceration or rash over the exposed skin MSK: Normal tone and bulk. Moving all extremities. No obvious deformity. Neuro: Awake and alert. Mentating appropriately. Hawk Ma MD Oct 22, 2020 06:50
[2020-10-22 08:00] VITALS: BP 125/78
--- NOTE | 2020-10-22 08:47 | NUR ---
NURSE NOTES: pt in bed opens eyes and is able to speak. Pt is confused. Pt on care transitions nurse no signs of cardiac or respiratory distress at this time. Bed in lowest position, call light within reach. Pt is refusing to take medication and spits. Notify DARREN hernandez pt is not eating refusing meds and food.
[2020-10-22] MEDS: Docusate 100mg cap ORAL SCH ×3 (09:00→18:00)
[2020-10-22] MEDS: Eliquis 2.5mg tablet ORAL SCH (09:00)
--- NOTE | 2020-10-22 09:26 | Pulmonology Progress Note ---
Subjective ROS Limited/Unobtainable: Yes Interval Events: None major reported per nursing Constitutional: Reports: anorexia HEENT: Repors: no symptoms Respiratory: Reports: no symptoms Cardiovascular: Reports: no symptoms Gastrointestinal/Abdominal: Reports: no symptoms Psychiatric: Reports: other - refusing medications Allergies: Coded Allergies: No Known Allergies (Unverified , 10/17/20) Objective Last 24 Hour Vital Signs Date Time Temp Pulse Resp B/P (MAP) Pulse Ox O2 Delivery O2 Flow Rate FiO2 10/22/20 04:00 88 10/22/20 04:00 98.0 96 17 112/71 (85) 94 10/22/20 00:00 97.9 70 18 150/69 (96) 96 10/21/20 21:25 Nasal Cannula 4.0 10/21/20 20:26 81 157/55 10/21/20 20:00 96.8 85 18 143/68 (93) 96 10/21/20 20:00 85 10/21/20 16:00 98.1 65 16 157/55 (89) 96 10/21/20 16:00 81 10/21/20 12:00 80 10/21/20 12:00 97.9 73 17 147/60 (89) 95 Intake and Output 10/21/20 10/22/20 19:00 07:00 Output Total 200 ml 200 ml Balance -200 ml -200 ml Output Urine Total 200 ml 200 ml # Bowel Movements 2 General Appearance: no acute distress HEENT: atraumatic Respiratory: lungs clear Cardiovascular: normal rate, regular rhythm Abdomen: soft, non tender Current Medications Medications (Trade) Dose Ordered Sig/Yolanda Route PRN Reason Start Time Stop Time Status Last Admin Dose Admin Acetaminophen (Tylenol) 500 mg Q6HR PRN ORAL Mild Pain 1-3 10/17/20 17:45 11/16/20 17:44 Acetaminophen (Tylenol) 500 mg Q6HR PRN ORAL fever >100 10/17/20 18:00 11/16/20 17:59 Acetaminophen (Tylenol) 650 mg Q4H PRN ORAL Pain Scale (6-10) 10/17/20 19:15 11/16/20 19:14 Apixaban (Eliquis) 2.5 mg BID ORAL 10/19/20 18:00 01/17/21 17:59 Ceftriaxone Sodium 1 gm/ Dextrose 55 ml @ 110 mls/hr Q24H IVPB 10/19/20 13:00 10/26/20 12:59 10/21/20 13:33 Chlorhexidine Gluconate (Eve-Hex 2%) 1 applic QHS TOPIC 10/18/20 20:00 01/16/21 19:59 10/18/20 21:00 Dextrose/Sodium Chloride 1,000 ml @ 50 mls/hr Q20H IV 10/17/20 18:45 11/16/20 18:44 10/21/20 22:59 Docusate Sodium (Colace) 100 mg TID ORAL 10/18/20 09:00 11/17/20 08:59 10/19/20 13:07 Famotidine (Pepcid) 20 mg DAILY ORAL 10/18/20 09:00 01/16/21 08:59 10/21/20 09:51 Levothyroxine Sodium (Synthroid) 50 mcg DAILY@0630 ORAL 10/19/20 06:30 11/18/20 06:29 10/21/20 05:18 Metoprolol Tartrate (Lopressor) 25 mg EVERY 12 HOURS ORAL 10/19/20 21:00 01/17/21 20:59 10/21/20 20:26 Midodrine (Pro-Amatine) 10 mg Q8HR ORAL 10/18/20 14:00 01/16/21 13:59 10/21/20 20:27 Ondansetron HCl (Zofran) 4 mg Q6H PRN IVP Nausea & Vomiting 10/17/20 21:15 11/16/20 21:14 Assessment/Plan Assessment/Plan 1. CHF, mild. 2. CAD/previous non-STEMI. 3. [facility] resident. 4. Bradycardia. 5. Atrial fibrillation. -Started on Eliquis 6. Renal insufficiency. -Nephro following 7. Troponin leak. - Cardio following 8. COVID-19 pneumonia, without fever or leukocytosis -On antibiotics per ID - We will hold off any specific therapy says she remains normoxemic on room air/low flow O2 9. Hypoxemia -now saturating well on room air; provide supplemental oxygen as needed 10. 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 UTI, cheryl The care of this patient was discussed with my supervising physician Time spent for this encounter was approximately 31 minutes Tl Pedro Oct 22, 2020 09:26
[2020-10-22 10:31] LABS: CALCIUM 8.2 MG/DL (8.5-10.1); CREATININE 1.8 MG/DL (0.55-1.30); POTASSIUM 3.9 MMOL/L (3.5-5.1)
--- NOTE | 2020-10-22 10:41 | Cardiac Electrophysiology PN ---
Assessment/Plan Assessment/Plan 1. Non-ST elevation myocardial infarction with elevated troponin of more than 0.2. The level has come down to 0.19, but the levels are flat and likely due to renal failure as the creatinine is 2.1. On aspirin and Lopressor 25 bid 2. Atrial fibrillation with rapid ventricular response. On Lopressor 25 bid and Eliquis 2.5 bid( if she takes them) Doesn't have good peripheral iv to switch either. 3. Questionable bradycardia. The heart rate has been in the 80s and 90s. It is possible that they could not record the heart beat in view of the patient's atrial fibrillation. 4. History of previous non-ST elevation myocardial infarction. 5. Renal insufficiency.Cr still 2.1 6. Status post COVID pneumonia, was tested positive more than two weeks ago DW RN Subjective Subjective Not eating much on D51/2 NS in Covid isolation. Refusing meds Sat 92% on RA Atrial fib rate controlled in 80s Refusing meds. Objective Last 24 Hour Vital Signs Date Time Temp Pulse Resp B/P (MAP) Pulse Ox O2 Delivery O2 Flow Rate FiO2 10/22/20 04:00 88 10/22/20 04:00 98.0 96 17 112/71 (85) 94 10/22/20 00:00 97.9 70 18 150/69 (96) 96 10/21/20 21:25 Nasal Cannula 4.0 10/21/20 20:26 81 157/55 10/21/20 20:00 96.8 85 18 143/68 (93) 96 10/21/20 20:00 85 10/21/20 16:00 98.1 65 16 157/55 (89) 96 10/21/20 16:00 81 10/21/20 12:00 80 10/21/20 12:00 97.9 73 17 147/60 (89) 95 Intake and Output 10/21/20 10/22/20 19:00 07:00 Output Total 200 ml 200 ml Balance -200 ml -200 ml Output Urine Total 200 ml 200 ml # Bowel Movements 2 Laboratory Tests Test 10/22/20 09:55 Sodium Level 136 MMOL/L (136-145) Potassium Level 3.9 MMOL/L (3.5-5.1) Chloride Level 100 MMOL/L (98-107) Carbon Dioxide Level 28 MMOL/L (21-32) Anion Gap 8 mmol/L (5-15) Blood Urea Nitrogen 36 mg/dL (7-18) H Creatinine 1.8 MG/DL (0.55-1.30) H Estimat Glomerular Filtration Rate 26.9 mL/min (>60) Glucose Level 97 MG/DL (74-106) Calcium Level 8.2 MG/DL (8.5-10.1) L Objective HEAD AND NECK: No JVD. LUNGS: Decreased breath sounds. CARDIOVASCULAR: Irregular S1 and S2 with no gallop. ABDOMEN: Soft. EXTREMITIES: No pitting edema. Terry Reyes MD Oct 22, 2020 10:41
--- NOTE | 2020-10-22 11:04 | NUR ---
RD ASSESSMENT & RECOMMENDATIONS SEE CARE ACTIVITY FOR COMPLETE ASSESSMENT DAILY ESTIMATED NEEDS: Needs based on Cardiac, pulmonary/ 51kg abw 25-30 kcals/kg 1056-0755 total kcals 1-1.5 g protein/kg 51-76 g total protein 20-25 mL/kg 3983-0855 total fluid mLs NUTRITION DIAGNOSIS: Swallowing difficulty R/T dysphagia, decreased cognitive fxn as evidenced by WASHER CUTTER recommends pureed moist texture diet at this time. CURRENT DIET:NPO PO DIET RECOMMENDATIONS: Liberalized REGULAR w/ poor PO (texture per WASHER CUTTER) ADDITIONAL RECOMMENDATIONS: * Calibrated bedscale wt * Monitor PO intake: refusing meds and foods at this time -> rec nonoral feeds w/ continued refusal of PO if part of POC * LOW NA diet w/ PO intake consistently >50% * 4 oz Ensure TID w/ meals (4oz at this time due to poor acceptance, may increase to 8oz w/ good acceptance)
--- NOTE | 2020-10-22 11:53 | Surgery Progress Note ---
Surgery Progress Note Subjective Symptoms: improved, voiding well, passing flatus, pain decreased Objective Last 24 Hour Vital Signs Date Time Temp Pulse Resp B/P (MAP) Pulse Ox O2 Delivery O2 Flow Rate FiO2 10/22/20 04:00 88 10/22/20 04:00 98.0 96 17 112/71 (85) 94 10/22/20 00:00 97.9 70 18 150/69 (96) 96 10/21/20 21:25 Nasal Cannula 4.0 10/21/20 20:26 81 157/55 10/21/20 20:00 96.8 85 18 143/68 (93) 96 10/21/20 20:00 85 10/21/20 16:00 98.1 65 16 157/55 (89) 96 10/21/20 16:00 81 10/21/20 12:00 80 10/21/20 12:00 97.9 73 17 147/60 (89) 95 I&O Intake and Output 10/21/20 10/22/20 19:00 07:00 Output Total 200 ml 200 ml Balance -200 ml -200 ml Output Urine Total 200 ml 200 ml # Bowel Movements 2 Dressing: saturated Cardiovascular: RSR Respiratory: decreased breath sounds Abdomen: soft, non-tender, present bowel sounds Extremities: no tenderness, no cyanosis Laboratory Tests Test 10/21/20 12:59 10/21/20 18:46 10/21/20 23:31 10/22/20 09:55 POC Whole Blood Glucose 90 MG/DL (74-106) 95 MG/DL (74-106) 100 MG/DL (74-106) Sodium Level 136 MMOL/L (136-145) Potassium Level 3.9 MMOL/L (3.5-5.1) Chloride Level 100 MMOL/L (98-107) Carbon Dioxide Level 28 MMOL/L (21-32) Anion Gap 8 mmol/L (5-15) Blood Urea Nitrogen 36 mg/dL (7-18) H Creatinine 1.8 MG/DL (0.55-1.30) H Estimat Glomerular Filtration Rate 26.9 mL/min (>60) Glucose Level 97 MG/DL (74-106) Calcium Level 8.2 MG/DL (8.5-10.1) L Plan Problems: (1) Anemia (2) Acute kidney injury (3) Atrial fibrillation (4) Hyperkalemia (5) Elevated troponin (6) Decubitus skin ulcer Assessment & Plan: Pt presented on admission with Multiple Medical Comorbidities including Covid-19 and Pressure Injuries. Primary Nurse reported Pt has been declining food and medications. Sacral DTPI that is evolving noted to Sacrum(L)6cm x (W)12.5cm.. Scattered Purpuric areas that are indurated noted to R and L cheek. Small wound that is 100% slough (L)0.6cm x (W)0.7cm noted at sacrococcygeal area within base of DTPI. MASD noted to Perineum and skin folds of Medial/posterior aspects of Both upper thighs. Affected areas are erythematous and macerated with scattered satellite lesions. DTPI L Heel (L)3cm x (W)4cm, Base of heel is maroon and fluctuant with small purpuric area (L)0.4cm x (W)0.9cm within base of DTPI. l Foot including toes are mottled and cool to touch. L Heel is boggy. L Heel including toes are Mottled and cool to touch. Tx.Plan: Apply Moisture Barrier Paste to Sacrum. Cover with Optifoam drsg.Change every 3 days and prn. Apply Moisture Barrier Paste to abdominal folds, Perineum and skin folds of both upper thighs. Apply Cavilon Skin Barrier to both heels. Cover each Heel with Optifoam drsg. Change every 7 days and prn. Reposition at least every 2hours or as tolerated. Off-load heels with pillow. (7) Malnutrition Assessment & Plan: She was able to self feed on right hand and took a bite of popsicle and tolerated without s.s of aspiration. After 1st bite, then she refused 2nd bite. After this was done, I offered her a cup of cranberry juice, she took few sips and tolerated without s.s of aspiration. I continued to offer but she refused further PO. A: 1. Functional swallow 2. Failure to thrive 3. abnormal electrolytes in setting of heart failure, NSTEMI, elevated BNP, etc.. P/Rec. 1. Pureed and thin liquid 2.3. Goal of care discussion DAILY ESTIMATED NEEDS: Needs based on Cardiac, pulmonary/ 51kg abw 25-30 kcals/kg 5462-4200 total kcals 1-1.5 g protein/kg 51-76 g total protein 20-25 mL/kg 1390-6358 total fluid mLs NUTRITION DIAGNOSIS: Swallowing difficulty R/T dysphagia, decreased cognitive fxn as evidenced by SWEATER DESIGNER recommends pureed moist texture diet at this time. CURRENT DIET:NPO PO DIET RECOMMENDATIONS: Liberalized REGULAR w/ poor PO (texture per SWEATER DESIGNER) ADDITIONAL RECOMMENDATIONS: * Calibrated bedscale wt * Monitor PO intake: refusing meds and foods at this time -> rec nonoral feeds w/ continued refusal of PO if part of POC * LOW NA diet w/ PO intake consistently >50% * 4 oz Ensure TID w/ meals (4oz at this time due to poor acceptance, may increase to 8oz w/ good acceptance) Jim Orosco Oct 22, 2020 11:53
[2020-10-22 12:00] VITALS: BP 136/70
--- NOTE | 2020-10-22 12:17 | Nephrology Progress Note ---
Assessment/Plan Problem List: (1) Acute kidney injury (2) Anemia (3) Hyperkalemia (4) Elevated troponin (5) Pneumonia due to COVID-19 virus (6) Hypothyroidism Assessment Plan October 22: Labs reviewed. Serum creatinine lower at 1.8. Patient started on clear liquid. Patient refuses p.o. medications and food at times. Continue per consultants. October 21: Labs reviewed. Serum creatinine unchanged. Continue per consultants. Continue to monitor renal parameters. October 20: Today's labs reviewed. Serum creatinine unchanged. RN reports patient not taking any p.o. meds. Continue per consultants. Serum creatinine appears to be baseline. October 19: Today's labs still not done yet. RN informed. Albumin bolus given again. Continue to monitor electrolytes and renal parameters. Per orders October 18: Patient hypotensive. Due for blood transfusion. Will give albumin bolus. Continue to monitor renal parameters and electrolytes. Labs and medication list reviewed Subjective ROS Limited/Unobtainable: No Constitutional: Reports: malaise, weakness Objective Objective Last 24 Hour Vital Signs Date Time Temp Pulse Resp B/P (MAP) Pulse Ox O2 Delivery O2 Flow Rate FiO2 10/22/20 04:00 88 10/22/20 04:00 98.0 96 17 112/71 (85) 94 10/22/20 00:00 97.9 70 18 150/69 (96) 96 10/21/20 21:25 Nasal Cannula 4.0 10/21/20 20:26 81 157/55 10/21/20 20:00 96.8 85 18 143/68 (93) 96 10/21/20 20:00 85 10/21/20 16:00 98.1 65 16 157/55 (89) 96 10/21/20 16:00 81 Intake and Output 10/21/20 10/22/20 19:00 07:00 Output Total 200 ml 200 ml Balance -200 ml -200 ml Output Urine Total 200 ml 200 ml # Bowel Movements 2 Current Medications Medications (Trade) Dose Ordered Sig/Yolanda Route PRN Reason Start Time Stop Time Status Last Admin Dose Admin Acetaminophen (Tylenol) 500 mg Q6HR PRN ORAL Mild Pain 1-3 10/17/20 17:45 11/16/20 17:44 Acetaminophen (Tylenol) 500 mg Q6HR PRN ORAL fever >100 10/17/20 18:00 11/16/20 17:59 Acetaminophen (Tylenol) 650 mg Q4H PRN ORAL Pain Scale (6-10) 10/17/20 19:15 11/16/20 19:14 Apixaban (Eliquis) 2.5 mg BID ORAL 10/19/20 18:00 01/17/21 17:59 Ceftriaxone Sodium 1 gm/ Dextrose 55 ml @ 110 mls/hr Q24H IVPB 10/19/20 13:00 10/26/20 12:59 10/21/20 13:33 Chlorhexidine Gluconate (Eve-Hex 2%) 1 applic QHS TOPIC 10/18/20 20:00 01/16/21 19:59 10/18/20 21:00 Dextrose/Sodium Chloride 1,000 ml @ 50 mls/hr Q20H IV 10/17/20 18:45 11/16/20 18:44 10/21/20 22:59 Docusate Sodium (Colace) 100 mg TID ORAL 10/18/20 09:00 11/17/20 08:59 10/19/20 13:07 Famotidine (Pepcid) 20 mg DAILY ORAL 10/18/20 09:00 01/16/21 08:59 10/21/20 09:51 Levothyroxine Sodium (Synthroid) 50 mcg DAILY@0630 ORAL 10/19/20 06:30 11/18/20 06:29 10/21/20 05:18 Metoprolol Tartrate (Lopressor) 25 mg EVERY 12 HOURS ORAL 10/19/20 21:00 01/17/21 20:59 10/21/20 20:26 Midodrine (Pro-Amatine) 10 mg Q8HR ORAL 10/18/20 14:00 01/16/21 13:59 10/21/20 20:27 Ondansetron HCl (Zofran) 4 mg Q6H PRN IVP Nausea & Vomiting 10/17/20 21:15 11/16/20 21:14 Laboratory Tests 10/21/20 12:59: POC Whole Blood Glucose 90 10/21/20 18:46: POC Whole Blood Glucose 95 10/21/20 23:31: POC Whole Blood Glucose 100 10/22/20 09:55: Sodium Level 136, Potassium Level 3.9, Chloride Level 100, Carbon Dioxide Level 28, Anion Gap 8, Blood Urea Nitrogen 36H, Creatinine 1.8H, Estimat Glomerular Filtration Rate 26.9, Glucose Level 97, Calcium Level 8.2L Height (Feet): 5 Weight (Pounds): 145 General Appearance: no apparent distress Cardiovascular: tachycardia Respiratory/Chest: decreased breath sounds Abdomen: distended Dustin Gómez MD Oct 22, 2020 12:17
--- NOTE | 2020-10-22 12:51 | Infectious Diseases Prog Note ---
Assessment/Plan Assessment/Plan IMPRESSION: Abnormal chest x-ray, atelectasis versus infiltrate in the left lung base, Recent history of COVID disease, Acute renal failure, Severe aortic stenosis Atrial fibrillation, hypothyroidism, Anemia. Chronic DVT of R leg RECOMMENDATION: Continue ceftriaxone. We will follow up the cultures Subjective ROS Limited/Unobtainable: Yes Allergies: Coded Allergies: No Known Allergies (Unverified , 10/17/20) Objective Last 24 Hour Vital Signs Date Time Temp Pulse Resp B/P (MAP) Pulse Ox O2 Delivery O2 Flow Rate FiO2 10/22/20 04:00 88 10/22/20 04:00 98.0 96 17 112/71 (85) 94 10/22/20 00:00 97.9 70 18 150/69 (96) 96 10/21/20 21:25 Nasal Cannula 4.0 10/21/20 20:26 81 157/55 10/21/20 20:00 96.8 85 18 143/68 (93) 96 10/21/20 20:00 85 10/21/20 16:00 98.1 65 16 157/55 (89) 96 10/21/20 16:00 81 Height (Feet): 5 Weight (Pounds): 145 HEENT: mucous membranes moist Respiratory/Chest: lungs clear, other - on room air O@ Cardiovascular: normal rate Abdomen: soft, non tender Extremities: no edema Neurologic/Psychiatric: alert, responsive Laboratory Tests Test 10/21/20 12:59 10/21/20 18:46 10/21/20 23:31 10/22/20 09:55 POC Whole Blood Glucose 90 MG/DL (74-106) 95 MG/DL (74-106) 100 MG/DL (74-106) Sodium Level 136 MMOL/L (136-145) Potassium Level 3.9 MMOL/L (3.5-5.1) Chloride Level 100 MMOL/L (98-107) Carbon Dioxide Level 28 MMOL/L (21-32) Anion Gap 8 mmol/L (5-15) Blood Urea Nitrogen 36 mg/dL (7-18) H Creatinine 1.8 MG/DL (0.55-1.30) H Estimat Glomerular Filtration Rate 26.9 mL/min (>60) Glucose Level 97 MG/DL (74-106) Calcium Level 8.2 MG/DL (8.5-10.1) L Current Medications Medications (Trade) Dose Ordered Sig/Yolanda Route PRN Reason Start Time Stop Time Status Last Admin Dose Admin Acetaminophen (Tylenol) 500 mg Q6HR PRN ORAL Mild Pain 1-3 10/17/20 17:45 11/16/20 17:44 Acetaminophen (Tylenol) 500 mg Q6HR PRN ORAL fever >100 10/17/20 18:00 11/16/20 17:59 Acetaminophen (Tylenol) 650 mg Q4H PRN ORAL Pain Scale (6-10) 10/17/20 19:15 11/16/20 19:14 Apixaban (Eliquis) 2.5 mg BID ORAL 10/19/20 18:00 01/17/21 17:59 Ceftriaxone Sodium 1 gm/ Dextrose 55 ml @ 110 mls/hr Q24H IVPB 10/19/20 13:00 10/26/20 12:59 10/21/20 13:33 Chlorhexidine Gluconate (Eve-Hex 2%) 1 applic QHS TOPIC 10/18/20 20:00 01/16/21 19:59 10/18/20 21:00 Dextrose/Sodium Chloride 1,000 ml @ 50 mls/hr Q20H IV 10/17/20 18:45 11/16/20 18:44 10/21/20 22:59 Docusate Sodium (Colace) 100 mg TID ORAL 10/18/20 09:00 11/17/20 08:59 10/19/20 13:07 Famotidine (Pepcid) 20 mg DAILY ORAL 10/18/20 09:00 01/16/21 08:59 10/21/20 09:51 Levothyroxine Sodium (Synthroid) 50 mcg DAILY@0630 ORAL 10/19/20 06:30 11/18/20 06:29 10/21/20 05:18 Metoprolol Tartrate (Lopressor) 25 mg EVERY 12 HOURS ORAL 10/19/20 21:00 01/17/21 20:59 10/21/20 20:26 Midodrine (Pro-Amatine) 10 mg Q8HR ORAL 10/18/20 14:00 01/16/21 13:59 10/21/20 20:27 Ondansetron HCl (Zofran) 4 mg Q6H PRN IVP Nausea & Vomiting 10/17/20 21:15 11/16/20 21:14 Luis Alvarado MD Oct 22, 2020 12:51
[2020-10-22] MEDS: cefTRIAXone 1 GM in D5W 55 ML IVPB SCH (13:31)
--- NOTE | 2020-10-22 15:14 | Consultation ---
DATE OF CONSULTATION: 10/22/2020 CHIEF COMPLAINT: Referral for PEG placement. HISTORY OF PRESENT ILLNESS: This is a very pleasant unfortunate 85-year-old [place] female with recent history of COVID pneumonia, admitted to the hospital with profound anemia, stool OB positive, and also failure to thrive. PAST MEDICAL HISTORY: 1. Anemia. 2. Renal insufficiency. 3. UTI. 4. Aortic stenosis. 5. Atrial fibrillation. 6. Hypothyroidism. 7. Chronic right lower extremity DVT. 8. COPD. 9. CHF. ALLERGIES: No known drug allergies. MEDICATIONS: Please see medication reconciliation list. SOCIAL HISTORY: [place] the [place]. No recent history of tobacco, alcohol, drug abuse. FAMILY HISTORY: Noncontributory. REVIEW OF SYSTEMS: Unable to obtain. PAST SURGICAL HISTORY: Unknown. PHYSICAL EXAMINATION: VITAL SIGNS: Temperature 98, pulse 96, respirations 17, blood pressure 112/71. HEENT: Normocephalic and atraumatic. Mild pale conjunctivae. NECK: Supple. No evidence of obvious lymphadenopathy. CARDIOVASCULAR: Irregularly irregular. Plus S1 and S2. LUNGS: Decreased breath sounds bilaterally based on supine exam. ABDOMEN: Soft and nontender. No rebound. No guarding. No peritoneal sign. EXTREMITIES: Evidence of edema on the right lower extremity. LABORATORY DATA: White count 6.2, hemoglobin 9.4, hematocrit 30, platelets of 137. ASSESSMENT AND PLAN: This is a 85-year-old female with recent COVID positive pneumonia. The patient is extremely agitated. Nurses try to put an NG tube but patient will not let them do that. Also, she is not eating. She is not taking any of her medications. I spoke with the family, they agreed for the patient to have a G-tube placement for now. So, we will make the patient NPO after midnight and we are going to schedule her for endoscopy tomorrow and PEG placement. Meanwhile, we are going to place the patient on PPI given the stool OB positive and anemia. Skyler Tobar M.D. DR: Mino JOB#: [id number] CC:
[2020-10-22 16:00] VITALS: BP 128/75
[2020-10-22] MEDS: D5 1/2NS 1,000 ML IV SCH (18:45)
--- NOTE | 2020-10-22 19:15 | NUR ---
NURSE NOTES: notified doctor Jerel pt IV is not good she might need a Picc line for tomorrows test. pt NPO at midnight per doctor Jerel pt npo at midnight and order for Piccline placement.
--- NOTE | 2020-10-22 19:19 | General Progress Note ---
Subjective ROS Limited/Unobtainable: Yes Allergies: Coded Allergies: No Known Allergies (Unverified , 10/17/20) Objective Last 24 Hour Vital Signs Date Time Temp Pulse Resp B/P (MAP) Pulse Ox O2 Delivery O2 Flow Rate FiO2 10/22/20 04:00 88 10/22/20 04:00 98.0 96 17 112/71 (85) 94 10/22/20 00:00 97.9 70 18 150/69 (96) 96 10/21/20 21:25 Nasal Cannula 4.0 10/21/20 20:26 81 157/55 10/21/20 20:00 96.8 85 18 143/68 (93) 96 10/21/20 20:00 85 Intake and Output 10/21/20 10/22/20 19:00 07:00 Output Total 200 ml 200 ml Balance -200 ml -200 ml Output Urine Total 200 ml 200 ml # Bowel Movements 2 Laboratory Tests 10/21/20 23:31: POC Whole Blood Glucose 100 10/22/20 09:55: Sodium Level 136, Potassium Level 3.9, Chloride Level 100, Carbon Dioxide Level 28, Anion Gap 8, Blood Urea Nitrogen 36H, Creatinine 1.8H, Estimat Glomerular Filtration Rate 26.9, Glucose Level 97, Calcium Level 8.2L 10/22/20 13:48: POC Whole Blood Glucose [Pending] 10/22/20 19:00: POC Whole Blood Glucose 81 Height (Feet): 5 Weight (Pounds): 145 Assessment/Plan Problem List: (1) Anemia ICD Codes: D64.9 - Anemia, unspecified SNOMED: 514847970 (2) Acute kidney injury ICD Codes: N17.9 - Acute kidney failure, unspecified SNOMED: 58636892, 6021000 (3) Atrial fibrillation ICD Codes: I48.91 - Unspecified atrial fibrillation SNOMED: 87362326 (4) Elevated troponin ICD Codes: R77.8 - Other specified abnormalities of plasma proteins SNOMED: 450087462, 275936618, 539003192 (5) Malnutrition ICD Codes: E46 - Unspecified protein-calorie malnutrition SNOMED: 32839590 (6) Pneumonia due to COVID-19 virus ICD Codes: U07.1 - COVID-19; J12.82 - Pneumonia due to coronavirus disease 2019 SNOMED: 197433920535766434 (7) Hypothyroidism ICD Codes: E03.9 - Hypothyroidism, unspecified SNOMED: 46755391 Status: progressing Assessment/Plan: supportive care no change no fever covid + s/p bradycardia AZOTEMIA improving reviewed chart and labs weak malnutrtion Neri Dumont MD Oct 22, 2020 19:19
[2020-10-22] MEDS ORDERED: Heparin1,000 units/500ml Premix(Conc:2 units/ml) IV PRN (19:45)
[2020-10-22] MEDS ORDERED: Lidocaine 1% Plain 30 ml INJ PRN (19:45)
[2020-10-22 20:00] VITALS: BP 151/85
[2020-10-22] MEDS: Dyna-Hex 2% Top Sol 2oz TOPIC SCH (20:00)
--- NOTE | 2020-10-22 20:58 | NUR ---
NURSE HAND-OFF REPORT: Important Events on Shift:[]pt refuses meds. and food doctor has been notified. Also pt NPO after midnight, EGD pending tomorrow, consent still needs to be obtained by night nurse, she will call family for picc and EGD placement. Patient Status: []Full Diet: []npo Pending Orders: [] Pending Results/Labs:[] Pending MD notification:[] Latest Vital Signs: Temperature 98.0 , Pulse 94 , B/P 128 /75 , Respiratory Rate 18 , O2 SAT 94 , Nasal Cannula, O2 Flow Rate 4.0 . Vital Sign Comment: [] EKG Rhythm: A-fib Rhythm change?: N MD Notified?: - MD Response: Latest Elizabeth Fall Score: 70 Fall Risk: High Risk Safety Measures: Call light Within Reach, Bed Alarm Zone 1, Side Rails Side Rails x3, Bed position Low and Locked. Fall Precautions: y Yellow Socks y Patient Fall Education y Report given to []. [place]
[2020-10-23] VITALS (10 sets, daily range): BP systolic 98–145; BP diastolic 38–85
--- NOTE | 2020-10-23 01:58 | NUR ---
NURSE NOTES: pt refuses meds. pt NPO going for an EGD, i contacted the family spoke to the Daughter in law she translated for the son and i got the consent for the picc and EGD placement from son.
[2020-10-23] MEDS: Midodrine 10mg tab ORAL SCH ×3 (06:00→22:50)
[2020-10-23 06:43] LABS: BASOPHILS % (AUTO) 1.2 % (0.0-2.0); EOSINOPHILS % (AUTO) 0.8 % (0.0-3.0); HEMATOCRIT 33.8 % (37.0-47.0); HEMOGLOBIN 10.5 G/DL (12.0-16.0); LYMPHOCYTES % (AUTO) 9.3 % (20.0-45.0); MEAN CORPUSCULAR VOLUME 96 FL (80-99); NEUTROPHILS % (AUTO) 83.8 % (45.0-75.0); PLATELET COUNT 149 K/UL (150-450); RED BLOOD COUNT 3.51 M/UL (4.20-5.40); RED CELL DISTRIBUTION WIDTH 18.7 % (11.6-14.8); WHITE BLOOD COUNT 5.8 K/UL (4.8-10.8)
[2020-10-23 07:11] LABS: ALBUMIN 2.3 G/DL (3.4-5.0); ALBUMIN/GLOBULIN RATIO 0.7 (1.0-2.7); BILIRUBIN,TOTAL 0.8 MG/DL (0.2-1.0); CALCIUM 8.3 MG/DL (8.5-10.1); CREATININE 1.9 MG/DL (0.55-1.30); PHOSPHORUS 2.9 MG/DL (2.5-4.9); POTASSIUM 4.5 MMOL/L (3.5-5.1)
[2020-10-23] MEDS: D5 1/2NS 1,000 ML IV SCH (08:05)
--- NOTE | 2020-10-23 08:23 | NUR ---
NURSE NOTES: patient is schedule for EGD this morning, the patient has an order for a picc line she's a hard stick, she doesn't have a line.
--- NOTE | 2020-10-23 08:25 | NUR ---
P.T Note:late entry 10/22/20 1015 P.T evaluation attempted however pt refused to participate. Will reattempt . RN notified.
--- NOTE | 2020-10-23 08:32 | NUR ---
patient only received one mag out of 3 because it was a little busy . but the pixis showed 3 because when i was trying to removed the other meds. can pharmacy recount them again please
--- NOTE | 2020-10-23 08:52 | NUR ---
NURSE NOTES: pt in bed awake and alert x1 and is confused. pt. arms are swollen and they will try to put a new IV. pt on satellite project site monitor, no signs of cardiac or respiratory distress at this time. Bed is locked and in lowest position. awaiting picc and peg placement. Pt NPO.
--- NOTE | 2020-10-23 08:57 | Hematology/Onc Progress Note ---
Assessment/Plan Assessment/Plan Assessment and recs # Anemia r/o gi bleed --> anemia panel has been ordered-->reviewed --> hgb 8.1->9.3->9.7-->9.5-->10.5 --> no hemolysis is noted --> transfuse on prn basis # Thrombocytopenia likely due to reactive process --> plt 138-->149 --> viral w/u neg # Hypercoag disorder with Atrial fibrillation --> consider anticoag as per cards --> if bleeding, consider hold anticoag # Elevated trop --> per cards # Hyperkalemia --> per renal # Acute kidney injury --> per renal # Recently COVID-19 positive # Dvt ppx scds --> lovenox sq Appreciate consultation and rosio eugene Subjective HEENT: Denies: no symptoms, eye pain, blurred vision, tearing, double vision, ear pain, ear discharge, nose pain, nose congestion, throat pain, throat swelling, mouth pain, mouth swelling, other Cardiovascular: Denies: no symptoms, chest pain, edema, irregular heart rate, lightheadedness, palpitations, syncope, other Respiratory: Denies: no symptoms, cough, shortness of breath, SOB with excertion, SOB at rest, sputum, wheezing, other Gastrointestinal/Abdominal: Denies: no symptoms, abdomen distended, abdominal pain, black stools, tarry stools, blood in stool, constipated, diarrhea, difficulty swallowing, nausea, poor appetite, poor fluid intake, rectal bleeding, vomiting, other Genitourinary: Denies: no symptoms, burning, discharge, frequency, flank pain, hematuria, incontinence, pain, urgency, other Neurologic/Psychiatric: Denies: no symptoms, anxiety, depressed, emotional problems, headache, numbness, paresthesia, pre-existing deficit, seizure, tingling, tremors, weakness, other Endocrine: Denies: no symptoms, excessive sweating, flushing, intolerance to cold, intolerance to heat, increased hunger, increased thirst, increased urine, unexplained weight gain, unexplained weight loss, other Allergies: Coded Allergies: No Known Allergies (Unverified , 10/17/20) Subjective 10/19 cbc is pending, did get blood transfusion last night, pending results 10/20 meds noted, no bleeding, labs reviewed, rosio rn, no new changes 10/21 on 4l nc, has been refusing labs, meds noted, no bleeding 10/22 nc, refusing meds labs reviewed, rosio rn 10/23 is potentially for egd this am, no bleeding, cbc is noted Objective Objective Current Medications Medications (Trade) Dose Ordered Sig/Yolanda Route PRN Reason Start Time Stop Time Status Last Admin Dose Admin Acetaminophen (Tylenol) 500 mg Q6HR PRN ORAL Mild Pain 1-3 10/17/20 17:45 11/16/20 17:44 Acetaminophen (Tylenol) 500 mg Q6HR PRN ORAL fever >100 10/17/20 18:00 11/16/20 17:59 Acetaminophen (Tylenol) 650 mg Q4H PRN ORAL Pain Scale (6-10) 10/17/20 19:15 11/16/20 19:14 Ceftriaxone Sodium 1 gm/ Dextrose 55 ml @ 110 mls/hr Q24H IVPB 10/19/20 13:00 10/26/20 12:59 10/22/20 13:31 Chlorhexidine Gluconate (Eve-Hex 2%) 1 applic DAILY@2000 TOPIC 10/22/20 20:00 01/20/21 19:59 10/22/20 20:00 Dextrose/Sodium Chloride 1,000 ml @ 50 mls/hr Q20H IV 10/17/20 18:45 11/16/20 18:44 10/23/20 08:05 Docusate Sodium (Colace) 100 mg TID ORAL 10/18/20 09:00 11/17/20 08:59 10/19/20 13:07 Famotidine (Pepcid) 20 mg DAILY ORAL 10/18/20 09:00 01/16/21 08:59 10/21/20 09:51 Heparin Sodium/ Sodium Chloride (Heparin 1000 units/500ml Premix) 1,000 unit ONCE PRN IV PICC LINE PLACEMENT 10/22/20 19:45 10/24/20 19:44 Levothyroxine Sodium (Synthroid) 50 mcg DAILY@0630 ORAL 10/19/20 06:30 11/18/20 06:29 10/23/20 06:30 Lidocaine HCl (Xylocaine 1% 30ml) 30 ml ONCE PRN INJ PICC LINE Placement 10/22/20 19:45 10/24/20 19:44 Metoprolol Tartrate (Lopressor) 25 mg EVERY 12 HOURS ORAL 10/19/20 21:00 01/17/21 20:59 10/22/20 21:41 Midodrine (Pro-Amatine) 10 mg Q8HR ORAL 10/18/20 14:00 01/16/21 13:59 10/23/20 06:00 Ondansetron HCl (Zofran) 4 mg Q6H PRN IVP Nausea & Vomiting 10/17/20 21:15 11/16/20 21:14 Pantoprazole (Protonix) 40 mg DAILY IVP 10/23/20 09:00 11/22/20 08:59 Last 24 Hour Vital Signs Date Time Temp Pulse Resp B/P (MAP) Pulse Ox O2 Delivery O2 Flow Rate FiO2 10/23/20 04:00 98 10/23/20 04:00 97.4 63 20 142/81 (101) 94 10/23/20 00:00 98.0 78 20 141/85 (103) 94 10/22/20 21:41 102 151/85 10/22/20 21:00 Nasal Cannula 4.0 10/22/20 20:00 131 10/22/20 20:00 97.7 102 20 151/85 (107) 94 10/22/20 16:00 98.0 94 18 128/75 (92) 94 10/22/20 16:00 94 10/22/20 12:00 95 10/22/20 12:00 97.7 92 20 136/70 (92) 95 10/22/20 09:00 Nasal Cannula 4.0 10/22/20 08:00 98.1 96 18 125/78 (94) 95 10/22/20 08:00 77 10/22/20 04:00 88 10/22/20 04:00 98.0 96 17 112/71 (85) 94 10/22/20 00:00 97.9 70 18 150/69 (96) 96 10/21/20 21:25 Nasal Cannula 4.0 10/21/20 20:26 81 157/55 10/21/20 20:00 96.8 85 18 143/68 (93) 96 10/21/20 20:00 85 10/21/20 16:00 98.1 65 16 157/55 (89) 96 10/21/20 16:00 81 10/21/20 12:00 80 10/21/20 12:00 97.9 73 17 147/60 (89) 95 10/21/20 09:00 Nasal Cannula 4.0 Intake and Output 10/22/20 10/23/20 19:00 07:00 Intake Total 0 ml 0 ml Output Total 275 ml 200 ml Balance -275 ml -200 ml Intake Oral 0 ml 0 ml Output Urine Total 275 ml 200 ml Labs Test 10/20/20 11:30 10/20/20 12:32 10/20/20 17:52 10/21/20 06:44 Stool Occult Blood Positive (NEGATIVE) POC Whole Blood Glucose 103 MG/DL (74-106) 97 MG/DL (74-106) White Blood Count 6.2 K/UL (4.8-10.8) Red Blood Count 3.14 M/UL (4.20-5.40) Hemoglobin 9.5 G/DL (12.0-16.0) Hematocrit 30.4 % (37.0-47.0) Mean Corpuscular Volume 97 FL (80-99) Mean Corpuscular Hemoglobin 30.2 PG (27.0-31.0) Mean Corpuscular Hemoglobin Concent 31.2 G/DL (32.0-36.0) Red Cell Distribution Width 18.1 % (11.6-14.8) Platelet Count 137 K/UL (150-450) Mean Platelet Volume 8.7 FL (6.5-10.1) Neutrophils (%) (Auto) % (45.0-75.0) Lymphocytes (%) (Auto) % (20.0-45.0) Monocytes (%) (Auto) % (1.0-10.0) Eosinophils (%) (Auto) % (0.0-3.0) Basophils (%) (Auto) % (0.0-2.0) Differential Total Cells Counted 100 Neutrophils % (Manual) 85 % (45-75) Lymphocytes % (Manual) 10 % (20-45) Monocytes % (Manual) 5 % (1-10) Eosinophils % (Manual) 0 % (0-3) Basophils % (Manual) 0 % (0-2) Band Neutrophils 0 % (0-8) Platelet Estimate Decreased Platelet Morphology Normal Hypochromasia 1+ Anisocytosis 1+ Macrocytosis 1+ Sodium Level 136 MMOL/L (136-145) Potassium Level 4.3 MMOL/L (3.5-5.1) Chloride Level 101 MMOL/L (98-107) Carbon Dioxide Level 27 MMOL/L (21-32) Anion Gap 8 mmol/L (5-15) Blood Urea Nitrogen 40 mg/dL (7-18) Creatinine 2.1 MG/DL (0.55-1.30) Estimat Glomerular Filtration Rate 22.5 mL/min (>60) Glucose Level 113 MG/DL (74-106) Calcium Level 7.8 MG/DL (8.5-10.1) Test 10/21/20 12:59 10/21/20 18:46 10/21/20 23:31 10/22/20 09:55 POC Whole Blood Glucose 90 MG/DL (74-106) 95 MG/DL (74-106) 100 MG/DL (74-106) Sodium Level 136 MMOL/L (136-145) Potassium Level 3.9 MMOL/L (3.5-5.1) Chloride Level 100 MMOL/L (98-107) Carbon Dioxide Level 28 MMOL/L (21-32) Anion Gap 8 mmol/L (5-15) Blood Urea Nitrogen 36 mg/dL (7-18) Creatinine 1.8 MG/DL (0.55-1.30) Estimat Glomerular Filtration Rate 26.9 mL/min (>60) Glucose Level 97 MG/DL (74-106) Calcium Level 8.2 MG/DL (8.5-10.1) Test 10/22/20 13:48 10/22/20 19:00 10/23/20 00:50 10/23/20 05:00 POC Whole Blood Glucose 81 MG/DL (74-106) 104 MG/DL (74-106) White Blood Count 5.8 K/UL (4.8-10.8) Red Blood Count 3.51 M/UL (4.20-5.40) Hemoglobin 10.5 G/DL (12.0-16.0) Hematocrit 33.8 % (37.0-47.0) Mean Corpuscular Volume 96 FL (80-99) Mean Corpuscular Hemoglobin 29.9 PG (27.0-31.0) Mean Corpuscular Hemoglobin Concent 31.1 G/DL (32.0-36.0) Red Cell Distribution Width 18.7 % (11.6-14.8) Platelet Count 149 K/UL (150-450) Mean Platelet Volume 8.2 FL (6.5-10.1) Neutrophils (%) (Auto) 83.8 % (45.0-75.0) Lymphocytes (%) (Auto) 9.3 % (20.0-45.0) Monocytes (%) (Auto) 5.0 % (1.0-10.0) Eosinophils (%) (Auto) 0.8 % (0.0-3.0) Basophils (%) (Auto) 1.2 % (0.0-2.0) Sodium Level 135 MMOL/L (136-145) Potassium Level 4.5 MMOL/L (3.5-5.1) Chloride Level 100 MMOL/L (98-107) Carbon Dioxide Level 29 MMOL/L (21-32) Anion Gap 6 mmol/L (5-15) Blood Urea Nitrogen 35 mg/dL (7-18) Creatinine 1.9 MG/DL (0.55-1.30) Estimat Glomerular Filtration Rate 25.2 mL/min (>60) Glucose Level 90 MG/DL (74-106) Calcium Level 8.3 MG/DL (8.5-10.1) Phosphorus Level 2.9 MG/DL (2.5-4.9) Magnesium Level 2.0 MG/DL (1.8-2.4) Total Bilirubin 0.8 MG/DL (0.2-1.0) Aspartate Amino Transf (AST/SGOT) 24 U/L (15-37) Alanine Aminotransferase (ALT/SGPT) 7 U/L (12-78) Alkaline Phosphatase 81 U/L (46-116) C-Reactive Protein, Quantitative 6.1 mg/dL (0.00-0.90) Total Protein 5.5 G/DL (6.4-8.2) Albumin 2.3 G/DL (3.4-5.0) Globulin 3.2 g/dL Albumin/Globulin Ratio 0.7 (1.0-2.7) Test 10/23/20 07:04 10/23/20 08:19 POC Whole Blood Glucose 87 MG/DL (74-106) 84 MG/DL (74-106) Height (Feet): 5 Weight (Pounds): 145 Objective Physical Exam General: Awake and alert, no acute distress HEENT: NC/AT. EOMI. Cardiovascular: Irregularly irregular rhythm. Normal heart rate Resp: Normal work of breathing. No cough, wheezing or crackles appreciated Abdomen: Abdomen is soft, nondistended. Nontender Skin: Intact. No abrasions, laceration or rash over the exposed skin MSK: Normal tone and bulk. Moving all extremities. No obvious deformity. Neuro: Awake and alert. Mentating appropriately. Hawk Ma MD Oct 23, 2020 08:57
--- NOTE | 2020-10-23 10:14 | Pulmonology Progress Note ---
Subjective ROS Limited/Unobtainable: Yes Interval Events: None major reported per nursing Constitutional: Reports: anorexia - PEG (10/23) HEENT: Repors: no symptoms Respiratory: Reports: no symptoms Cardiovascular: Reports: no symptoms Gastrointestinal/Abdominal: Reports: no symptoms Psychiatric: Reports: other - refusing medications Allergies: Coded Allergies: No Known Allergies (Unverified , 10/17/20) Objective Last 24 Hour Vital Signs Date Time Temp Pulse Resp B/P (MAP) Pulse Ox O2 Delivery O2 Flow Rate FiO2 10/23/20 04:00 98 10/23/20 04:00 97.4 63 20 142/81 (101) 94 10/23/20 00:00 98.0 78 20 141/85 (103) 94 10/22/20 21:41 102 151/85 10/22/20 21:00 Nasal Cannula 4.0 10/22/20 20:00 131 10/22/20 20:00 97.7 102 20 151/85 (107) 94 10/22/20 16:00 98.0 94 18 128/75 (92) 94 10/22/20 16:00 94 10/22/20 12:00 95 10/22/20 12:00 97.7 92 20 136/70 (92) 95 Intake and Output 10/22/20 10/23/20 19:00 07:00 Intake Total 0 ml 0 ml Output Total 275 ml 200 ml Balance -275 ml -200 ml Intake Oral 0 ml 0 ml Output Urine Total 275 ml 200 ml General Appearance: no acute distress HEENT: atraumatic Respiratory: lungs clear Cardiovascular: normal rate, regular rhythm Abdomen: soft, non tender Laboratory Tests 10/22/20 13:48: POC Whole Blood Glucose [Pending] 10/22/20 19:00: POC Whole Blood Glucose 81 10/23/20 00:50: POC Whole Blood Glucose 104 10/23/20 05:00: White Blood Count 5.8, Red Blood Count 3.51L, Hemoglobin 10.5L, Hematocrit 33.8L , Mean Corpuscular Volume 96, Mean Corpuscular Hemoglobin 29.9, Mean Corpuscular Hemoglobin Concent 31.1L, Red Cell Distribution Width 18.7H, Platelet Count 149L, Mean Platelet Volume 8.2, Neutrophils (%) (Auto) 83.8H, Lymphocytes (%) (Auto) 9.3L, Monocytes (%) (Auto) 5.0, Eosinophils (%) (Auto) 0.8, Basophils (%) (Auto) 1.2, Sodium Level 135L, Potassium Level 4.5, Chloride Level 100, Carbon Dioxide Level 29, Anion Gap 6, Blood Urea Nitrogen 35H, Creatinine 1.9H, Estimat Glomerular Filtration Rate 25.2, Glucose Level 90, Calcium Level 8.3L, Phosphorus Level 2.9, Magnesium Level 2.0, Total Bilirubin 0.8, Aspartate Amino Transf (AST/SGOT) 24, Alanine Aminotransferase (ALT/SGPT) 7L, Alkaline Phosphatase 81, C-Reactive Protein, Quantitative 6.1H, Total Protein 5.5L, Albumin 2.3L, Globulin 3.2, Albumin/Globulin Ratio 0.7L 10/23/20 07:04: POC Whole Blood Glucose 87 10/23/20 08:19: POC Whole Blood Glucose 84 Current Medications Medications (Trade) Dose Ordered Sig/Yolanda Route PRN Reason Start Time Stop Time Status Last Admin Dose Admin Acetaminophen (Tylenol) 500 mg Q6HR PRN ORAL Mild Pain 1-3 10/17/20 17:45 11/16/20 17:44 Acetaminophen (Tylenol) 500 mg Q6HR PRN ORAL fever >100 10/17/20 18:00 11/16/20 17:59 Acetaminophen (Tylenol) 650 mg Q4H PRN ORAL Pain Scale (6-10) 10/17/20 19:15 11/16/20 19:14 Ceftriaxone Sodium 1 gm/ Dextrose 55 ml @ 110 mls/hr Q24H IVPB 10/19/20 13:00 10/26/20 12:59 10/22/20 13:31 Chlorhexidine Gluconate (Eve-Hex 2%) 1 applic DAILY@2000 TOPIC 10/22/20 20:00 01/20/21 19:59 10/22/20 20:00 Dextrose/Sodium Chloride 1,000 ml @ 50 mls/hr Q20H IV 10/17/20 18:45 11/16/20 18:44 10/23/20 08:05 Docusate Sodium (Colace) 100 mg EVERY 8 HOURS ORAL 10/23/20 14:00 11/17/20 08:59 Famotidine (Pepcid) 20 mg DAILY ORAL 10/18/20 09:00 01/16/21 08:59 10/21/20 09:51 Heparin Sodium/ Sodium Chloride (Heparin 1000 units/500ml Premix) 1,000 unit ONCE PRN IV PICC LINE PLACEMENT 10/22/20 19:45 10/24/20 19:44 Levothyroxine Sodium (Synthroid) 50 mcg DAILY@0630 ORAL 10/19/20 06:30 11/18/20 06:29 10/23/20 06:30 Lidocaine HCl (Xylocaine 1% 30ml) 30 ml ONCE PRN INJ PICC LINE Placement 10/22/20 19:45 10/24/20 19:44 Metoprolol Tartrate (Lopressor) 25 mg EVERY 12 HOURS ORAL 10/19/20 21:00 01/17/21 20:59 10/22/20 21:41 Midodrine (Pro-Amatine) 10 mg Q8HR ORAL 10/18/20 14:00 01/16/21 13:59 10/23/20 06:00 Ondansetron HCl (Zofran) 4 mg Q6H PRN IVP Nausea & Vomiting 10/17/20 21:15 11/16/20 21:14 Pantoprazole (Protonix) 40 mg DAILY IVP 10/23/20 09:00 11/22/20 08:59 Assessment/Plan Assessment/Plan 1. CHF, mild. 2. CAD/previous non-STEMI. 3. [facility] resident. 4. Bradycardia. 5. Atrial fibrillation. -Started on Eliquis 6. Renal insufficiency. -Nephro following 7. Troponin leak. - Cardio following 8. COVID-19 pneumonia, without fever or leukocytosis -On antibiotics per ID - We will hold off any specific therapy says she remains normoxemic on room air/low flow O2 9. Hypoxemia -now saturating well on room air; provide supplemental oxygen as needed 10. 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 UTI, cheryl 12. Dysphagia -Scheduled for PEG (10/23) The care of this patient was discussed with my supervising physician Time spent for this encounter was approximately 31 minutes Tl Pedro Oct 23, 2020 10:14
--- NOTE | 2020-10-23 10:16 | Infectious Diseases Prog Note ---
Assessment/Plan Assessment/Plan IMPRESSION: Abnormal chest x-ray, atelectasis versus infiltrate in the left lung base, Recent history of COVID disease, Acute renal failure, Severe aortic stenosis Atrial fibrillation, hypothyroidism, Anemia. Chronic DVT of R leg RECOMMENDATION: Continue ceftriaxone X 1 day Will have PEG placement Subjective ROS Limited/Unobtainable: Yes Constitutional: Reports: other - decreased appetite Allergies: Coded Allergies: No Known Allergies (Unverified , 10/17/20) Objective Last 24 Hour Vital Signs Date Time Temp Pulse Resp B/P (MAP) Pulse Ox O2 Delivery O2 Flow Rate FiO2 10/23/20 04:00 98 10/23/20 04:00 97.4 63 20 142/81 (101) 94 10/23/20 00:00 98.0 78 20 141/85 (103) 94 10/22/20 21:41 102 151/85 10/22/20 21:00 Nasal Cannula 4.0 10/22/20 20:00 131 10/22/20 20:00 97.7 102 20 151/85 (107) 94 10/22/20 16:00 98.0 94 18 128/75 (92) 94 10/22/20 16:00 94 10/22/20 12:00 95 10/22/20 12:00 97.7 92 20 136/70 (92) 95 Height (Feet): 5 Weight (Pounds): 145 HEENT: other - dry mouth Respiratory/Chest: lungs clear Cardiovascular: normal rate Abdomen: soft, non tender Extremities: other - R hand edema Neurologic/Psychiatric: alert, responsive Laboratory Tests Test 10/22/20 13:48 10/22/20 19:00 10/23/20 00:50 10/23/20 05:00 POC Whole Blood Glucose Pending 81 MG/DL (74-106) 104 MG/DL (74-106) White Blood Count 5.8 K/UL (4.8-10.8) Red Blood Count 3.51 M/UL (4.20-5.40) L Hemoglobin 10.5 G/DL (12.0-16.0) L Hematocrit 33.8 % (37.0-47.0) L Mean Corpuscular Volume 96 FL (80-99) Mean Corpuscular Hemoglobin 29.9 PG (27.0-31.0) Mean Corpuscular Hemoglobin Concent 31.1 G/DL (32.0-36.0) L Red Cell Distribution Width 18.7 % (11.6-14.8) H Platelet Count 149 K/UL (150-450) L Mean Platelet Volume 8.2 FL (6.5-10.1) Neutrophils (%) (Auto) 83.8 % (45.0-75.0) H Lymphocytes (%) (Auto) 9.3 % (20.0-45.0) L Monocytes (%) (Auto) 5.0 % (1.0-10.0) Eosinophils (%) (Auto) 0.8 % (0.0-3.0) Basophils (%) (Auto) 1.2 % (0.0-2.0) Sodium Level 135 MMOL/L (136-145) L Potassium Level 4.5 MMOL/L (3.5-5.1) Chloride Level 100 MMOL/L (98-107) Carbon Dioxide Level 29 MMOL/L (21-32) Anion Gap 6 mmol/L (5-15) Blood Urea Nitrogen 35 mg/dL (7-18) H Creatinine 1.9 MG/DL (0.55-1.30) H Estimat Glomerular Filtration Rate 25.2 mL/min (>60) Glucose Level 90 MG/DL (74-106) Calcium Level 8.3 MG/DL (8.5-10.1) L Phosphorus Level 2.9 MG/DL (2.5-4.9) Magnesium Level 2.0 MG/DL (1.8-2.4) Total Bilirubin 0.8 MG/DL (0.2-1.0) Aspartate Amino Transf (AST/SGOT) 24 U/L (15-37) Alanine Aminotransferase (ALT/SGPT) 7 U/L (12-78) L Alkaline Phosphatase 81 U/L (46-116) C-Reactive Protein, Quantitative 6.1 mg/dL (0.00-0.90) H Total Protein 5.5 G/DL (6.4-8.2) L Albumin 2.3 G/DL (3.4-5.0) L Globulin 3.2 g/dL Albumin/Globulin Ratio 0.7 (1.0-2.7) L Test 10/23/20 07:04 10/23/20 08:19 POC Whole Blood Glucose 87 MG/DL (74-106) 84 MG/DL (74-106) Current Medications Medications (Trade) Dose Ordered Sig/Yolanda Route PRN Reason Start Time Stop Time Status Last Admin Dose Admin Acetaminophen (Tylenol) 500 mg Q6HR PRN ORAL Mild Pain 1-3 10/17/20 17:45 11/16/20 17:44 Acetaminophen (Tylenol) 500 mg Q6HR PRN ORAL fever >100 10/17/20 18:00 11/16/20 17:59 Acetaminophen (Tylenol) 650 mg Q4H PRN ORAL Pain Scale (6-10) 10/17/20 19:15 11/16/20 19:14 Ceftriaxone Sodium 1 gm/ Dextrose 55 ml @ 110 mls/hr Q24H IVPB 10/19/20 13:00 10/26/20 12:59 10/22/20 13:31 Chlorhexidine Gluconate (Eve-Hex 2%) 1 applic DAILY@2000 TOPIC 10/22/20 20:00 01/20/21 19:59 10/22/20 20:00 Dextrose/Sodium Chloride 1,000 ml @ 50 mls/hr Q20H IV 10/17/20 18:45 11/16/20 18:44 10/23/20 08:05 Docusate Sodium (Colace) 100 mg EVERY 8 HOURS ORAL 10/23/20 14:00 11/17/20 08:59 Famotidine (Pepcid) 20 mg DAILY ORAL 10/18/20 09:00 01/16/21 08:59 10/21/20 09:51 Heparin Sodium/ Sodium Chloride (Heparin 1000 units/500ml Premix) 1,000 unit ONCE PRN IV PICC LINE PLACEMENT 10/22/20 19:45 10/24/20 19:44 Levothyroxine Sodium (Synthroid) 50 mcg DAILY@0630 ORAL 10/19/20 06:30 11/18/20 06:29 10/23/20 06:30 Lidocaine HCl (Xylocaine 1% 30ml) 30 ml ONCE PRN INJ PICC LINE Placement 10/22/20 19:45 10/24/20 19:44 Metoprolol Tartrate (Lopressor) 25 mg EVERY 12 HOURS ORAL 10/19/20 21:00 01/17/21 20:59 2/25/21 21:41 Midodrine (Pro-Amatine) 10 mg Q8HR ORAL 10/18/20 14:00 01/16/21 13:59 10/23/20 06:00 Ondansetron HCl (Zofran) 4 mg Q6H PRN IVP Nausea & Vomiting 10/17/20 21:15 11/16/20 21:14 Pantoprazole (Protonix) 40 mg DAILY IVP 10/23/20 09:00 11/22/20 08:59 Luis Alvarado MD Oct 23, 2020 10:16
--- NOTE | 2020-10-23 10:33 | Nephrology Progress Note ---
Assessment/Plan Problem List: (1) Acute kidney injury (2) Anemia (3) Hyperkalemia (4) Elevated troponin (5) Pneumonia due to COVID-19 virus (6) Hypothyroidism Assessment Plan October 23: Labs reviewed. Renal parameters unchanged. Creatinine 1.9. Continue current management. Medication list reviewed. October 22: Labs reviewed. Serum creatinine lower at 1.8. Patient started on clear liquid. Patient refuses p.o. medications and food at times. Continue per consultants. October 21: Labs reviewed. Serum creatinine unchanged. Continue per consulta nts. Continue to monitor renal parameters. October 20: Today's labs reviewed. Serum creatinine unchanged. RN reports patient not taking any p.o. meds. Continue per consultants. Serum creatinine appears to be baseline. October 19: Today's labs still not done yet. RN informed. Albumin bolus given again. Continue to monitor electrolytes and renal parameters. Per orders October 18: Patient hypotensive. Due for blood transfusion. Will give albumin bolus. Continue to monitor renal parameters and electrolytes. Labs and medication list reviewed Subjective ROS Limited/Unobtainable: Yes - HIV Objective Objective Last 24 Hour Vital Signs Date Time Temp Pulse Resp B/P (MAP) Pulse Ox O2 Delivery O2 Flow Rate FiO2 10/23/20 04:00 98 10/23/20 04:00 97.4 63 20 142/81 (101) 94 10/23/20 00:00 98.0 78 20 141/85 (103) 94 10/22/20 21:41 102 151/85 10/22/20 21:00 Nasal Cannula 4.0 10/22/20 20:00 131 10/22/20 20:00 97.7 102 20 151/85 (107) 94 10/22/20 16:00 98.0 94 18 128/75 (92) 94 10/22/20 16:00 94 10/22/20 12:00 95 10/22/20 12:00 97.7 92 20 136/70 (92) 95 Intake and Output 10/22/20 10/23/20 18:59 06:59 Intake Total 0 ml 0 ml Output Total 275 ml 200 ml Balance -275 ml -200 ml Intake Oral 0 ml 0 ml Output Urine Total 275 ml 200 ml Current Medications Medications (Trade) Dose Ordered Sig/Yolanda Route PRN Reason Start Time Stop Time Status Last Admin Dose Admin Acetaminophen (Tylenol) 500 mg Q6HR PRN ORAL Mild Pain 1-3 10/17/20 17:45 11/16/20 17:44 Acetaminophen (Tylenol) 500 mg Q6HR PRN ORAL fever >100 10/17/20 18:00 11/16/20 17:59 Acetaminophen (Tylenol) 650 mg Q4H PRN ORAL Pain Scale (6-10) 10/17/20 19:15 11/16/20 19:14 Ceftriaxone Sodium 1 gm/ Dextrose 55 ml @ 110 mls/hr Q24H IVPB 10/19/20 13:00 10/24/20 23:59 10/23/20 12:57 Chlorhexidine Gluconate (Eve-Hex 2%) 1 applic DAILY@2000 TOPIC 10/22/20 20:00 01/20/21 19:59 10/22/20 20:00 Dextrose/Sodium Chloride 1,000 ml @ 50 mls/hr Q20H IV 10/17/20 18:45 11/16/20 18:44 10/23/20 08:05 Docusate Sodium (Colace) 100 mg EVERY 8 HOURS ORAL 10/23/20 14:00 11/17/20 08:59 Famotidine (Pepcid) 20 mg DAILY ORAL 10/18/20 09:00 01/16/21 08:59 10/21/20 09:51 Heparin Sodium/ Sodium Chloride (Heparin 1000 units/500ml Premix) 1,000 unit ONCE PRN IV PICC LINE PLACEMENT 10/22/20 19:45 10/24/20 19:44 Levothyroxine Sodium (Synthroid) 50 mcg DAILY@0630 ORAL 10/19/20 06:30 11/18/20 06:29 10/23/20 06:30 Lidocaine HCl (Xylocaine 1% 30ml) 30 ml ONCE PRN INJ PICC LINE Placement 10/22/20 19:45 10/24/20 19:44 Metoprolol Tartrate (Lopressor) 25 mg EVERY 12 HOURS ORAL 10/19/20 21:00 01/17/21 20:59 10/22/20 21:41 Midodrine (Pro-Amatine) 10 mg Q8HR ORAL 10/18/20 14:00 01/16/21 13:59 10/23/20 06:00 Ondansetron HCl (Zofran) 4 mg Q6H PRN IVP Nausea & Vomiting 10/17/20 21:15 11/16/20 21:14 Pantoprazole (Protonix) 40 mg DAILY IVP 10/23/20 09:00 11/22/20 08:59 10/23/20 10:59 Laboratory Tests 10/22/20 13:48: POC Whole Blood Glucose [Pending] 10/22/20 19:00: POC Whole Blood Glucose 81 10/23/20 00:50: POC Whole Blood Glucose 104 10/23/20 05:00: White Blood Count 5.8, Red Blood Count 3.51L, Hemoglobin 10.5L, Hematocrit 33.8L , Mean Corpuscular Volume 96, Mean Corpuscular Hemoglobin 29.9, Mean Corpuscular Hemoglobin Concent 31.1L, Red Cell Distribution Width 18.7H, Platelet Count 149L, Mean Platelet Volume 8.2, Neutrophils (%) (Auto) 83.8H, Lymphocytes (%) (Auto) 9.3L, Monocytes (%) (Auto) 5.0, Eosinophils (%) (Auto) 0.8, Basophils (%) (Auto) 1.2, Sodium Level 135L, Potassium Level 4.5, Chloride Level 100, Carbon Dioxide Level 29, Anion Gap 6, Blood Urea Nitrogen 35H, Creatinine 1.9H, Estimat Glomerular Filtration Rate 25.2, Glucose Level 90, Calcium Level 8.3L, Phosphorus Level 2.9, Magnesium Level 2.0, Total Bilirubin 0.8, Aspartate Amino Transf (AST/SGOT) 24, Alanine Aminotransferase (ALT/SGPT) 7L, Alkaline Phosphatase 81, C-Reactive Protein, Quantitative 6.1H, Total Protein 5.5L, Albumin 2.3L, Globulin 3.2, Albumin/Globulin Ratio 0.7L 10/23/20 07:04: POC Whole Blood Glucose 87 10/23/20 08:19: POC Whole Blood Glucose 84 Height (Feet): 5 Weight (Pounds): 145 General Appearance: no apparent distress, lethargic Cardiovascular: tachycardia Respiratory/Chest: decreased breath sounds Abdomen: distended Dustin Gómez MD Oct 23, 2020 10:33
[2020-10-23] MEDS: Pantoprazole Inj IVP SCH (10:59)
--- NOTE | 2020-10-23 11:19 | Surgery Progress Note ---
Surgery Progress Note Subjective Symptoms: improved, pain absent, tolerating diet, voiding well, passing flatus Objective Last 24 Hour Vital Signs Date Time Temp Pulse Resp B/P (MAP) Pulse Ox O2 Delivery O2 Flow Rate FiO2 10/23/20 04:00 98 10/23/20 04:00 97.4 63 20 142/81 (101) 94 10/23/20 00:00 98.0 78 20 141/85 (103) 94 10/22/20 21:41 102 151/85 10/22/20 21:00 Nasal Cannula 4.0 10/22/20 20:00 131 10/22/20 20:00 97.7 102 20 151/85 (107) 94 10/22/20 16:00 98.0 94 18 128/75 (92) 94 10/22/20 16:00 94 10/22/20 12:00 95 10/22/20 12:00 97.7 92 20 136/70 (92) 95 I&O Intake and Output 10/22/20 10/23/20 19:00 07:00 Intake Total 0 ml 0 ml Output Total 275 ml 200 ml Balance -275 ml -200 ml Intake Oral 0 ml 0 ml Output Urine Total 275 ml 200 ml Dressing: dry Wound: clean Cardiovascular: RSR Respiratory: clear Abdomen: soft, non-tender, present bowel sounds, non-distended Extremities: no tenderness, no cyanosis Laboratory Tests Test 10/22/20 13:48 10/22/20 19:00 10/23/20 00:50 10/23/20 05:00 POC Whole Blood Glucose Pending 81 MG/DL (74-106) 104 MG/DL (74-106) White Blood Count 5.8 K/UL (4.8-10.8) Red Blood Count 3.51 M/UL (4.20-5.40) L Hemoglobin 10.5 G/DL (12.0-16.0) L Hematocrit 33.8 % (37.0-47.0) L Mean Corpuscular Volume 96 FL (80-99) Mean Corpuscular Hemoglobin 29.9 PG (27.0-31.0) Mean Corpuscular Hemoglobin Concent 31.1 G/DL (32.0-36.0) L Red Cell Distribution Width 18.7 % (11.6-14.8) H Platelet Count 149 K/UL (150-450) L Mean Platelet Volume 8.2 FL (6.5-10.1) Neutrophils (%) (Auto) 83.8 % (45.0-75.0) H Lymphocytes (%) (Auto) 9.3 % (20.0-45.0) L Monocytes (%) (Auto) 5.0 % (1.0-10.0) Eosinophils (%) (Auto) 0.8 % (0.0-3.0) Basophils (%) (Auto) 1.2 % (0.0-2.0) Sodium Level 135 MMOL/L (136-145) L Potassium Level 4.5 MMOL/L (3.5-5.1) Chloride Level 100 MMOL/L (98-107) Carbon Dioxide Level 29 MMOL/L (21-32) Anion Gap 6 mmol/L (5-15) Blood Urea Nitrogen 35 mg/dL (7-18) H Creatinine 1.9 MG/DL (0.55-1.30) H Estimat Glomerular Filtration Rate 25.2 mL/min (>60) Glucose Level 90 MG/DL (74-106) Calcium Level 8.3 MG/DL (8.5-10.1) L Phosphorus Level 2.9 MG/DL (2.5-4.9) Magnesium Level 2.0 MG/DL (1.8-2.4) Total Bilirubin 0.8 MG/DL (0.2-1.0) Aspartate Amino Transf (AST/SGOT) 24 U/L (15-37) Alanine Aminotransferase (ALT/SGPT) 7 U/L (12-78) L Alkaline Phosphatase 81 U/L (46-116) C-Reactive Protein, Quantitative 6.1 mg/dL (0.00-0.90) H Total Protein 5.5 G/DL (6.4-8.2) L Albumin 2.3 G/DL (3.4-5.0) L Globulin 3.2 g/dL Albumin/Globulin Ratio 0.7 (1.0-2.7) L Test 10/23/20 07:04 10/23/20 08:19 POC Whole Blood Glucose 87 MG/DL (74-106) 84 MG/DL (74-106) Plan Problems: (1) Anemia (2) Acute kidney injury (3) Atrial fibrillation (4) Hyperkalemia (5) Elevated troponin (6) Decubitus skin ulcer Assessment & Plan: Pt presented on admission with Multiple Medical Comorbiditie s including Covid-19 and Pressure Injuries. Primary Nurse reported Pt has been declining food and medications. Sacral DTPI that is evolving noted to Sacrum(L)6cm x (W)12.5cm.. Scattered Purpuric areas that are indurated noted to R and L cheek. Small wound that is 100% slough (L)0.6cm x (W)0.7cm noted at sacrococcygeal area within base of DTPI. MASD noted to Perineum and skin folds of Medial/posterior aspects of Both upper thighs. Affected areas are erythematous and macerated with scattered satellite lesions. DTPI L Heel (L)3cm x (W)4cm, Base of heel is maroon and fluctuant with small purpuric area (L)0.4cm x (W)0.9cm within base of DTPI. l Foot including toes are mottled and cool to touch. L Heel is boggy. L Heel including toes are Mottled and cool to touch. Tx.Plan: Apply Moisture Barrier Paste to Sacrum. Cover with Optifoam drsg.Change every 3 days and prn. Apply Moisture Barrier Paste to abdominal folds, Perineum and skin folds of both upper thighs. Apply Cavilon Skin Barrier to both heels. Cover each Heel with Optifoam drsg. Change every 7 days and prn. Reposition at least every 2hours or as tolerated. Off-load heels with pillow. (7) Malnutrition Assessment & Plan: She was able to self feed on right hand and took a bite of popsicle and tolerated without s.s of aspiration. After 1st bite, then she refused 2nd bite. After this was done, I offered her a cup of cranberry juice, she took few sips and tolerated without s.s of aspiration. I continued to offer but she refused further PO. A: 1. Functional swallow 2. Failure to thrive 3. abnormal electrolytes in setting of heart failure, NSTEMI, elevated BNP, etc.. P/Rec. 1. Pureed and thin liquid 2.3. Goal of care discussion DAILY ESTIMATED NEEDS: Needs based on Cardiac, pulmonary/ 51kg abw 25-30 kcals/kg [id number] total kcals 1-1.5 g protein/kg 51-76 g total protein 20-25 mL/kg 9810-2502 total fluid mLs NUTRITION DIAGNOSIS: Swallowing difficulty R/T dysphagia, decreased cognitive fxn as evidenced by [employer]ER recommends pureed moist texture diet at this time. CURRENT DIET:NPO PO DIET RECOMMENDATIONS: Liberalized REGULAR w/ poor PO (texture per [employer]ER) ADDITIONAL RECOMMENDATIONS: * Calibrated bedscale wt * Monitor PO intake: refusing meds and foods at this time -> rec nonoral feeds w/ continued refusal of PO if part of POC * LOW NA diet w/ PO intake consistently >50% * 4 oz Ensure TID w/ meals (4oz at this time due to poor acceptance, may increase to 8oz w/ good acceptance) Jim Orosco Oct 23, 2020 11:19
--- NOTE | 2020-10-23 12:12 | Pre-Procedure Note/Attestation ---
Pre-Procedure Note/Attestation Complete Prior to Procedure Planned Procedure: not applicable Procedure Narrative: dysphagia Indications for Procedure Pre-Operative Diagnosis: peg Attestation I attest that I discussed the nature of the procedure; its benefits; risks and complications; and alternatives (and the risks and benefits of such alternatives), prior to the procedure, with the patient (or the patient's legal sales representative metals). I attest that, if there was a reasonable possibility of needing a blood transfusion, the patient (or the patient's legal sales representative metals) was given the [facility] standardized written summary, pursuant to the Ambrocio Saadia Blood Safety Act ([place] Health and Safety Code # 1645, as amended). I attest that I re-evaluated the patient just prior to the surgery and that there has been no change in the patient's H&P, except as documented below: Skyler Tobar MD Oct 23, 2020 12:12
[2020-10-23] MEDS: cefTRIAXone 1 GM in D5W 55 ML IVPB SCH (12:57)
[2020-10-23] MEDS ORDERED: NS 500ML IVPB ONE (13:15)
[2020-10-23] MEDS ORDERED: Lidocaine 1% MPF 10mg/ml 5ml ONE (13:30)
--- NOTE | 2020-10-23 13:58 | Anethesia Preoperative Eval ---
Anesthesia Pre-op PMH/ROS General Date of Evaluation: Oct 23, 2020 Time of Evaluation: 13:34 Anesthesiologist: Shawanda ASA Score: ASA 3 Mallampati Score Class I : Soft palate, uvula, fauces, pillars visible Class II: Soft palate, uvula, fauces visible Class III: Soft palate, base of uvula visible Class IV: Only hard plate visible Mallampati Classification: Class II Surgeon: Amadou Diagnosis: Abd Pain Surgical Procedure: PEG Anesthesia History: none Family History: no anesthesia problems Allergies: Coded Allergies: No Known Allergies (Unverified , 10/17/20) Medications: see eMAR Patient NPO?: Yes Past Medical History Cardiovascular: Reports: HTN, [place] - N-STEMI, other - CHF Pulmonary: Reports: COPD Endocrine: Reports: other - ARF Hematology/Immune: Reports: anemia Anesthesia Pre-op Phys. Exam Physician Exam Last Vital Signs Date Time Temp Pulse Resp B/P (MAP) Pulse Ox O2 Delivery O2 Flow Rate FiO2 10/23/20 04:00 98 10/23/20 04:00 97.4 20 142/81 (101) 94 10/22/20 21:00 Nasal Cannula 4.0 10/17/20 17:03 100 Constitutional: NAD Neurologic: CN 2-12 intact Cardiovascular: RRR Respiratory: CTA Gastrointestinal: S/NT/ND Airway Exam Mallampati Score: Class II MO: limited ROM: limited Teeth: missing Anesthesia Pre-op A/P Labs Hematology Test 10/23/20 05:00 White Blood Count 5.8 K/UL (4.8-10.8) Red Blood Count 3.51 M/UL (4.20-5.40) L Hemoglobin 10.5 G/DL (12.0-16.0) L Hematocrit 33.8 % (37.0-47.0) L Mean Corpuscular Volume 96 FL (80-99) Mean Corpuscular Hemoglobin 29.9 PG (27.0-31.0) Mean Corpuscular Hemoglobin Concent 31.1 G/DL (32.0-36.0) L Red Cell Distribution Width 18.7 % (11.6-14.8) H Platelet Count 149 K/UL (150-450) L Mean Platelet Volume 8.2 FL (6.5-10.1) Neutrophils (%) (Auto) 83.8 % (45.0-75.0) H Lymphocytes (%) (Auto) 9.3 % (20.0-45.0) L Monocytes (%) (Auto) 5.0 % (1.0-10.0) Eosinophils (%) (Auto) 0.8 % (0.0-3.0) Basophils (%) (Auto) 1.2 % (0.0-2.0) Chemistry Test 10/22/20 19:00 10/23/20 00:50 10/23/20 05:00 10/23/20 07:04 POC Whole Blood Glucose 81 MG/DL (74-106) 104 MG/DL (74-106) 87 MG/DL (74-106) Sodium Level 135 MMOL/L (136-145) L Potassium Level 4.5 MMOL/L (3.5-5.1) Chloride Level 100 MMOL/L (98-107) Carbon Dioxide Level 29 MMOL/L (21-32) Anion Gap 6 mmol/L (5-15) Blood Urea Nitrogen 35 mg/dL (7-18) H Creatinine 1.9 MG/DL (0.55-1.30) H Estimat Glomerular Filtration Rate 25.2 mL/min (>60) Glucose Level 90 MG/DL (74-106) Calcium Level 8.3 MG/DL (8.5-10.1) L Phosphorus Level 2.9 MG/DL (2.5-4.9) Magnesium Level 2.0 MG/DL (1.8-2.4) Total Bilirubin 0.8 MG/DL (0.2-1.0) Aspartate Amino Transf (AST/SGOT) 24 U/L (15-37) Alanine Aminotransferase (ALT/SGPT) 7 U/L (12-78) L Alkaline Phosphatase 81 U/L (46-116) C-Reactive Protein, Quantitative 6.1 mg/dL (0.00-0.90) H Total Protein 5.5 G/DL (6.4-8.2) L Albumin 2.3 G/DL (3.4-5.0) L Globulin 3.2 g/dL Albumin/Globulin Ratio 0.7 (1.0-2.7) L Test 10/23/20 08:19 POC Whole Blood Glucose 84 MG/DL (74-106) Risk Assessment & Plan Assessment: ASA 3 Plan: TIVA Status Change Before Surgery: No Luis Armando Mayberry MD Oct 23, 2020 13:58
--- NOTE | 2020-10-23 13:59 | Immediate Post-Op Evaluation ---
Immediate Post-Op Evalulation Immediate Post-Op Evalulation Procedure: PEG Date of Evaluation: Oct 23, 2020 Time of Evaluation: 14:52 IV Fluids: 200 NS Blood Products: 0 Estimated Blood Loss: 3 Urinary Output: 0 Blood Pressure Systolic: 141 Blood Pressure Diastolic: 62 Pulse Rate: 107 Respiratory Rate: 16 O2 Sat by Pulse Oximetry: 100 Temperature (Fahrenheit): 98 Pain Score (1-10): 1 Nausea: No Vomiting: No Complications 0 Patient Status: awake, reacts, patent, none Hydration Status: adequate Luis Armando Mayberry MD Oct 23, 2020 13:59
[2020-10-23] MEDS: Docusate 100mg cap ORAL SCH ×2 (14:00→22:50)
--- NOTE | 2020-10-23 14:00 | 48 Hour Post Anesthesia Eval ---
Post Anesthesia Evaluation Procedure: PEG Date of Evaluation: Oct 23, 2020 Time of Evaluation: 16:34 Blood Pressure Systolic: 145 0: 78 Pulse Rate: 111 Respiratory Rate: 18 Temperature (Fahrenheit): 98 O2 Sat by Pulse Oximetry: 96 Airway: patent Nausea: No Vomiting: No Pain Intensity: 1 Hydration Status: adequate Cardiopulmonary Status: Stable Mental Status/LOC: patient returned to baseline Follow-up Care/Observations: 0 Post-Anesthesia Complications: 0 Follow-up care needed: N/A Luis Armando Mayberry MD Oct 23, 2020 14:00
--- NOTE | 2020-10-23 14:38 | Endoscopy Procedure Note ---
Endoscopy Procedure Note General Indication for Procedure: dysphagia Procedures Performed: EGD, PEG Operative Findings/Diagnosis: same Specimen: none Pt Tolerated Procedure Well: Yes Estimated Blood Loss: none Anesthesia Anesthesiologist: balaji Anesthesia: MAC Inserted Devices Implant(s) used?: No GI Core Measures 50 yrs or older w/o bx or poly: Not Applicable 10yrs. F/U recommended: Not Applicable Skyler Tobar MD Oct 23, 2020 14:37
--- NOTE | 2020-10-23 15:15 | Cardiac Electrophysiology PN ---
Assessment/Plan Assessment/Plan 1. Non-ST elevation myocardial infarction with elevated troponin of more than 0.2. The level has come down to 0.19, but the levels are flat and likely due to renal failure as the creatinine is 2.1. On aspirin and Lopressor 25 bid 2. Atrial fibrillation with rapid ventricular response. On Lopressor 25 bid and Eliquis 2.5 bid( if she takes them) Doesn't have good peripheral iv to switch either. 3. Questionable bradycardia. The heart rate has been in the 80s and 90s. It is possible that they could not record the heart beat in view of the patient's atrial fibrillation. 4. History of previous non-ST elevation myocardial infarction. 5. Renal insufficiency.Cr still 2.1 6. Status post COVID pneumonia, was tested positive more than two weeks ago DW RN Subjective Subjective On D51/2 NS in Covid isolation. Refusing meds Sat 92% on RA Atrial fib rate controlled in 80s Objective Last 24 Hour Vital Signs Date Time Temp Pulse Resp B/P (MAP) Pulse Ox O2 Delivery O2 Flow Rate FiO2 10/23/20 14:44 111 18 96 10/23/20 14:43 107 16 100 10/23/20 04:00 98 10/23/20 04:00 97.4 63 20 142/81 (101) 94 10/23/20 00:00 98.0 78 20 141/85 (103) 94 10/22/20 21:41 102 151/85 10/22/20 21:00 Nasal Cannula 4.0 10/22/20 20:00 131 10/22/20 20:00 97.7 102 20 151/85 (107) 94 10/22/20 16:00 98.0 94 18 128/75 (92) 94 10/22/20 16:00 94 Intake and Output 10/22/20 10/23/20 19:00 07:00 Intake Total 0 ml 0 ml Output Total 275 ml 200 ml Balance -275 ml -200 ml Intake Oral 0 ml 0 ml Output Urine Total 275 ml 200 ml Laboratory Tests Test 10/22/20 19:00 10/23/20 00:50 10/23/20 05:00 10/23/20 07:04 POC Whole Blood Glucose 81 MG/DL (74-106) 104 MG/DL (74-106) 87 MG/DL (74-106) White Blood Count 5.8 K/UL (4.8-10.8) Red Blood Count 3.51 M/UL (4.20-5.40) L Hemoglobin 10.5 G/DL (12.0-16.0) L Hematocrit 33.8 % (37.0-47.0) L Mean Corpuscular Volume 96 FL (80-99) Mean Corpuscular Hemoglobin 29.9 PG (27.0-31.0) Mean Corpuscular Hemoglobin Concent 31.1 G/DL (32.0-36.0) L Red Cell Distribution Width 18.7 % (11.6-14.8) H Platelet Count 149 K/UL (150-450) L Mean Platelet Volume 8.2 FL (6.5-10.1) Neutrophils (%) (Auto) 83.8 % (45.0-75.0) H Lymphocytes (%) (Auto) 9.3 % (20.0-45.0) L Monocytes (%) (Auto) 5.0 % (1.0-10.0) Eosinophils (%) (Auto) 0.8 % (0.0-3.0) Basophils (%) (Auto) 1.2 % (0.0-2.0) Sodium Level 135 MMOL/L (136-145) L Potassium Level 4.5 MMOL/L (3.5-5.1) Chloride Level 100 MMOL/L (98-107) Carbon Dioxide Level 29 MMOL/L (21-32) Anion Gap 6 mmol/L (5-15) Blood Urea Nitrogen 35 mg/dL (7-18) H Creatinine 1.9 MG/DL (0.55-1.30) H Estimat Glomerular Filtration Rate 25.2 mL/min (>60) Glucose Level 90 MG/DL (74-106) Calcium Level 8.3 MG/DL (8.5-10.1) L Phosphorus Level 2.9 MG/DL (2.5-4.9) Magnesium Level 2.0 MG/DL (1.8-2.4) Total Bilirubin 0.8 MG/DL (0.2-1.0) Aspartate Amino Transf (AST/SGOT) 24 U/L (15-37) Alanine Aminotransferase (ALT/SGPT) 7 U/L (12-78) L Alkaline Phosphatase 81 U/L (46-116) C-Reactive Protein, Quantitative 6.1 mg/dL (0.00-0.90) H Total Protein 5.5 G/DL (6.4-8.2) L Albumin 2.3 G/DL (3.4-5.0) L Globulin 3.2 g/dL Albumin/Globulin Ratio 0.7 (1.0-2.7) L Test 10/23/20 08:19 10/23/20 13:54 POC Whole Blood Glucose 84 MG/DL (74-106) 103 MG/DL (74-106) Objective HEAD AND NECK: No JVD. LUNGS: Decreased breath sounds. CARDIOVASCULAR: Irregular S1 and S2 with no gallop. ABDOMEN: Soft. EXTREMITIES: No pitting edema. Terry Reyes MD Oct 23, 2020 15:15
--- NOTE | 2020-10-23 15:22 | NUR ---
P.T Note:late [id number] P.T evaluation attempted. Pt however refused to participate. Will reattempt when pt cooperates.
--- NOTE | 2020-10-23 15:40 | Cardiac Electrophysiology PN ---
Assessment/Plan Assessment/Plan 1. Non-ST elevation myocardial infarction with elevated troponin of more than 0.2. The level has come down to 0.19, but the levels are flat and likely due to renal failure as the creatinine is 2.1. On aspirin and Lopressor 25 bid 2. Atrial fibrillation with rapid ventricular response. On Lopressor 25 bid and Eliquis 2.5 bid 3. Questionable bradycardia. The heart rate has been in the 80s and 90s. It is possible that they could not record the heart beat in view of the patient's atrial fibrillation. 4. History of previous non-ST elevation myocardial infarction. 5. Renal insufficiency.Cr still 2.1 6. Status post COVID pneumonia, was tested positive more than two weeks ago 7. Dysphagia, S/P PEG 10/23/20 DW RN Subjective Subjective On D51/2 NS in Covid isolation. Refusing meds Sat 92% on RA Atrial fib rate controlled in 80s S/P PEG by Dr Tobar today Objective Last 24 Hour Vital Signs Date Time Temp Pulse Resp B/P (MAP) Pulse Ox O2 Delivery O2 Flow Rate FiO2 10/23/20 14:44 111 18 96 10/23/20 14:43 107 16 100 10/23/20 04:00 98 10/23/20 04:00 97.4 63 20 142/81 (101) 94 10/23/20 00:00 98.0 78 20 141/85 (103) 94 10/22/20 21:41 102 151/85 10/22/20 21:00 Nasal Cannula 4.0 10/22/20 20:00 131 10/22/20 20:00 97.7 102 20 151/85 (107) 94 10/22/20 16:00 98.0 94 18 128/75 (92) 94 10/22/20 16:00 94 Intake and Output 10/22/20 10/23/20 19:00 07:00 Intake Total 0 ml 0 ml Output Total 275 ml 200 ml Balance -275 ml -200 ml Intake Oral 0 ml 0 ml Output Urine Total 275 ml 200 ml Laboratory Tests Test 10/22/20 19:00 10/23/20 00:50 10/23/20 05:00 10/23/20 07:04 POC Whole Blood Glucose 81 MG/DL (74-106) 104 MG/DL (74-106) 87 MG/DL (74-106) White Blood Count 5.8 K/UL (4.8-10.8) Red Blood Count 3.51 M/UL (4.20-5.40) L Hemoglobin 10.5 G/DL (12.0-16.0) L Hematocrit 33.8 % (37.0-47.0) L Mean Corpuscular Volume 96 FL (80-99) Mean Corpuscular Hemoglobin 29.9 PG (27.0-31.0) Mean Corpuscular Hemoglobin Concent 31.1 G/DL (32.0-36.0) L Red Cell Distribution Width 18.7 % (11.6-14.8) H Platelet Count 149 K/UL (150-450) L Mean Platelet Volume 8.2 FL (6.5-10.1) Neutrophils (%) (Auto) 83.8 % (45.0-75.0) H Lymphocytes (%) (Auto) 9.3 % (20.0-45.0) L Monocytes (%) (Auto) 5.0 % (1.0-10.0) Eosinophils (%) (Auto) 0.8 % (0.0-3.0) Basophils (%) (Auto) 1.2 % (0.0-2.0) Sodium Level 135 MMOL/L (136-145) L Potassium Level 4.5 MMOL/L (3.5-5.1) Chloride Level 100 MMOL/L (98-107) Carbon Dioxide Level 29 MMOL/L (21-32) Anion Gap 6 mmol/L (5-15) Blood Urea Nitrogen 35 mg/dL (7-18) H Creatinine 1.9 MG/DL (0.55-1.30) H Estimat Glomerular Filtration Rate 25.2 mL/min (>60) Glucose Level 90 MG/DL (74-106) Calcium Level 8.3 MG/DL (8.5-10.1) L Phosphorus Level 2.9 MG/DL (2.5-4.9) Magnesium Level 2.0 MG/DL (1.8-2.4) Total Bilirubin 0.8 MG/DL (0.2-1.0) Aspartate Amino Transf (AST/SGOT) 24 U/L (15-37) Alanine Aminotransferase (ALT/SGPT) 7 U/L (12-78) L Alkaline Phosphatase 81 U/L (46-116) C-Reactive Protein, Quantitative 6.1 mg/dL (0.00-0.90) H Total Protein 5.5 G/DL (6.4-8.2) L Albumin 2.3 G/DL (3.4-5.0) L Globulin 3.2 g/dL Albumin/Globulin Ratio 0.7 (1.0-2.7) L Test 10/23/20 08:19 10/23/20 13:54 10/23/20 15:04 POC Whole Blood Glucose 84 MG/DL (74-106) 103 MG/DL (74-106) Arterial Blood pH 7.297 (7.350-7.450) Arterial Blood Partial Pressure CO2 60.0 mmHg (35.0-45.0) *H Arterial Blood Partial Pressure O2 133.2 mmHg (75.0-100.0) H Arterial Blood HCO3 28.7 mmol/L (22.0-26.0) H Arterial Blood Oxygen Saturation Pending Arterial Blood Base Excess 0.7 (-2-2) Gallo Test Positive Objective HEAD AND NECK: No JVD. LUNGS: Decreased breath sounds. CARDIOVASCULAR: Irregular S1 and S2 with no gallop. ABDOMEN: Soft.PEG EXTREMITIES: No pitting edema. Terry Reyes MD Oct 23, 2020 15:40
--- NOTE | 2020-10-23 16:29 | Procedure Note ---
DATE OF PROCEDURE: 08/22/2020 SURGEON: Skyler Tobar MD. PROCEDURE: Upper endoscopy with PEG placement. ANESTHESIA: Per Dr. Mayberry. INSTRUMENT: Olympus adult flexible upper endoscope. INDICATION: Dysphagia. REASON FOR PROCEDURE: The procedure, risks, benefits, and possible consequences, including hemorrhage, aspiration, perforation and infection, and alternative treatments, were explained to the patient/legal guardian by Dr. Skyler Tobar and the patient/legal guardian understood and accepted these risks. PROCEDURE IN DETAIL: After informed consent was obtained and the patient was adequately sedated, Olympus upper endoscope was advanced from mouth into the second portion of the duodenum and retroflexion was performed in the stomach. Then under endoscopic guidance under sterile condition, a 20-Hungarian pull type of G-tube was successfully placed in epigastric area. The distance from the tip of the tube to skin was about 2 cm in size. The patient tolerated the procedure very well without any complication. SUMMARY OF FINDINGS: Status post successful PEG placement. RECOMMENDATIONS: 1. Abdominal binder. 2. Elevate the head of the bed at all times. 3. G-tube flush. 4. G-tube care. 5. Start tube feeding later today. 6. The patient currently on antibiotics, we will continue. I want to thank Dr. Neri Dumont, for this kind referral. Skyler Tobar M.D. DR: Mino JOB#: [id number] CC: Neri Dumont M.D.; Fax#: [phone]
--- NOTE | 2020-10-23 17:14 | NUR ---
NURSE NOTES: reported ABG abnormal results to DARREN Hammond.
--- NOTE | 2020-10-23 17:15 | NUR ---
NURSE NOTES: requested Gtube feeding pump.
--- NOTE | 2020-10-23 20:10 | NUR ---
NURSE NOTES: pt in bed awake and alert x1 and is confused. pt on surveillance monitor, no signs of cardiac or respiratory distress at this time. Bed is locked and in lowest position.
--- NOTE | 2020-10-23 20:10 | NUR ---
NURSE HAND-OFF REPORT: Important Events on Shift:[]pt had a Gtube placement today, started pt on feeding vital 1.2 at 15ml/hr. goal is 60ml. Pt B/p is low, endorsed this to night RN. pt has new working IV Patient Status: [] full Diet: []gtube Pending Orders: [] Pending Results/Labs:[] Pending MD notification:[] Latest Vital Signs: Temperature 97.5 , Pulse 65 , B/P 98 /58 , Respiratory Rate 20 , O2 SAT 94 , Simple Mask, O2 Flow Rate 6 . Vital Sign Comment: [] EKG Rhythm: A-fib Rhythm change?: N MD Notified?: - MD Response: Latest Elizabeth Fall Score: 70 Fall Risk: High Risk Safety Measures: Call light Within Reach, Bed Alarm Zone 1, Side Rails Side Rails x3, Bed position Low and Locked. Fall Precautions: y Yellow Socks y Patient Fall Education y Report given to []Hal/jabier
--- NOTE | 2020-10-23 20:14 | General Progress Note ---
Subjective ROS Limited/Unobtainable: Yes Allergies: Coded Allergies: No Known Allergies (Unverified , 10/17/20) Objective Last 24 Hour Vital Signs Date Time Temp Pulse Resp B/P (MAP) Pulse Ox O2 Delivery O2 Flow Rate FiO2 10/23/20 16:00 97.5 65 20 98/58 (71) 94 10/23/20 16:00 102 10/23/20 14:50 107 18 126/42 100 Simple Mask 6 10/23/20 14:45 112 18 116/38 100 Simple Mask 6 10/23/20 14:44 111 18 96 10/23/20 14:43 107 16 100 10/23/20 14:40 96 18 121/49 100 Simple Mask 6 10/23/20 14:35 97.6 115 18 145/66 100 Simple Mask 6 10/23/20 12:00 97.7 105 20 102/63 (76) 94 10/23/20 12:00 105 10/23/20 09:00 Nasal Cannula 2.0 10/23/20 08:00 96 10/23/20 08:00 98.1 75 20 144/69 (94) 94 10/23/20 04:00 98 10/23/20 04:00 97.4 63 20 142/81 (101) 94 10/23/20 00:00 98.0 78 20 141/85 (103) 94 10/22/20 21:41 102 151/85 10/22/20 21:00 Nasal Cannula 4.0 Intake and Output 10/22/20 10/23/20 19:00 07:00 Intake Total 0 ml 0 ml Output Total 275 ml 200 ml Balance -275 ml -200 ml Intake Oral 0 ml 0 ml Output Urine Total 275 ml 200 ml Laboratory Tests 10/23/20 00:50: POC Whole Blood Glucose 104 10/23/20 05:00: White Blood Count 5.8, Red Blood Count 3.51L, Hemoglobin 10.5L, Hematocrit 33.8L , Mean Corpuscular Volume 96, Mean Corpuscular Hemoglobin 29.9, Mean Corpuscular Hemoglobin Concent 31.1L, Red Cell Distribution Width 18.7H, Platelet Count 149L , Mean Platelet Volume 8.2, Neutrophils (%) (Auto) 83.8H, Lymphocytes (%) (Auto) 9.3L, Monocytes (%) (Auto) 5.0, Eosinophils (%) (Auto) 0.8, Basophils (%) (Auto) 1.2, Sodium Level 135L, Potassium Level 4.5, Chloride Level 100, Carbon Dioxide Level 29, Anion Gap 6, Blood Urea Nitrogen 35H, Creatinine 1.9H, Estimat Glomerular Filtration Rate 25.2, Glucose Level 90, Calcium Level 8.3L, Phosphorus Level 2.9, Magnesium Level 2.0, Total Bilirubin 0.8, Aspartate Amino Transf (AST/SGOT) 24, Alanine Aminotransferase (ALT/SGPT) 7L, Alkaline Phosphatase 81, C-Reactive Protein, Quantitative 6.1H, Total Protein 5.5L, Albumin 2.3L, Globulin 3.2, Albumin/Globulin Ratio 0.7L 10/23/20 07:04: POC Whole Blood Glucose 87 10/23/20 08:19: POC Whole Blood Glucose 84 10/23/20 13:54: POC Whole Blood Glucose 103 10/23/20 15:04: Arterial Blood pH 7.297L, Arterial Blood Partial Pressure CO2 60.0*H, Arterial Blood Partial Pressure O2 133.2H, Arterial Blood HCO3 28.7H, Arterial Blood Oxygen Saturation [Pending], Arterial Blood Base Excess 0.7, Gallo Test Positive 10/23/20 18:53: POC Whole Blood Glucose 97 Height (Feet): 5 Height (Inches): 0.00 Weight (Pounds): 145 Assessment/Plan Problem List: (1) Anemia ICD Codes: D64.9 - Anemia, unspecified SNOMED: 275758086 (2) Acute kidney injury ICD Codes: N17.9 - Acute kidney failure, unspecified SNOMED: 41648302, 2766217 (3) Atrial fibrillation ICD Codes: I48.91 - Unspecified atrial fibrillation SNOMED: 03862317 (4) Elevated troponin ICD Codes: R77.8 - Other specified abnormalities of plasma proteins SNOMED: 398370797, 481363626, 083418742 (5) Malnutrition ICD Codes: E46 - Unspecified protein-calorie malnutrition SNOMED: 21245989 (6) Pneumonia due to COVID-19 virus ICD Codes: U07.1 - COVID-19; J12.82 - Pneumonia due to coronavirus disease 2019 SNOMED: [id number] (7) Hypothyroidism ICD Codes: E03.9 - Hypothyroidism, unspecified SNOMED: 48696143 Status: progressing Assessment/Plan: on 4 liter oxygen s/p peg resp insuff covid + s/p bradycardia renal failure is stable weak malnutrtion Neri Dumont MD Oct 23, 2020 20:14
[2020-10-23] MEDS: Dyna-Hex 2% Top Sol 2oz TOPIC SCH (21:02)
[2020-10-24] VITALS (7 sets, daily range): BP systolic 93–114; BP diastolic 50–74
[2020-10-24] MEDS: Docusate 100mg cap ORAL SCH ×3 (06:50→22:00)
[2020-10-24] MEDS: Midodrine 10mg tab ORAL SCH ×3 (06:51→22:28)
--- NOTE | 2020-10-24 07:18 | NUR ---
NURSE NOTES: pt is in the bed asleep and arousable. G-tube inplace and infusing; tolerating well. no residual noted. HOB elevated. no facial grimacing for pain and discomfort noted. on 02 @ 4l via NC; respiration is even and unlabored. call light within reach.
--- NOTE | 2020-10-24 09:13 | Surgery Progress Note ---
Surgery Progress Note Subjective Additional Comments s/p peg tube okay abd exam stable no n/v Objective Last 24 Hour Vital Signs Date Time Temp Pulse Resp B/P (MAP) Pulse Ox O2 Delivery O2 Flow Rate FiO2 10/24/20 04:00 98.1 76 20 108/50 (69) 100 10/24/20 04:00 76 10/24/20 00:00 97.9 69 20 100/70 (80) 100 10/23/20 21:05 86 111/70 10/23/20 21:00 Nasal Cannula 2.0 10/23/20 20:00 98.1 86 20 111/70 (84) 97 10/23/20 20:00 93 10/23/20 16:00 97.5 65 20 98/58 (71) 94 10/23/20 16:00 102 10/23/20 14:50 107 18 126/42 100 Simple Mask 6 10/23/20 14:45 112 18 116/38 100 Simple Mask 6 10/23/20 14:44 111 18 96 10/23/20 14:43 107 16 100 10/23/20 14:40 96 18 121/49 100 Simple Mask 6 10/23/20 14:35 97.6 115 18 145/66 100 Simple Mask 6 10/23/20 12:00 97.7 105 20 102/63 (76) 94 10/23/20 12:00 105 I&O Intake and Output 10/23/20 10/24/20 19:00 07:00 Intake Total 0 ml Output Total 350 ml 150 ml Balance -350 ml -150 ml Intake Oral 0 ml Output Urine Total 350 ml 150 ml # Bowel Movements 1 1 Drains: other Cardiovascular: RSR Respiratory: clear Abdomen: soft, flat, non-tender, present bowel sounds, non-distended Extremities: no edema, no tenderness, no cyanosis Laboratory Tests Test 10/23/20 13:54 10/23/20 15:04 10/23/20 18:53 10/24/20 00:43 POC Whole Blood Glucose 103 MG/DL (74-106) 97 MG/DL (74-106) 108 MG/DL (74-106) H Arterial Blood pH 7.297 (7.350-7.450) Arterial Blood Partial Pressure CO2 60.0 mmHg (35.0-45.0) *H Arterial Blood Partial Pressure O2 133.2 mmHg (75.0-100.0) H Arterial Blood HCO3 28.7 mmol/L (22.0-26.0) H Arterial Blood Oxygen Saturation Pending Arterial Blood Base Excess 0.7 (-2-2) Gallo Test Positive Test 10/24/20 04:59 POC Whole Blood Glucose 97 MG/DL (74-106) Plan Problems: (1) Anemia (2) Acute kidney injury (3) Atrial fibrillation (4) Hyperkalemia (5) Elevated troponin (6) Decubitus skin ulcer Assessment & Plan: Pt presented on admission with Multiple Medical Comorbid ities including Covid-19 and Pressure Injuries. Primary Nurse reported Pt has been declining food and medications. Sacral DTPI that is evolving noted to Sacrum(L)6cm x (W)12.5cm.. Scattered Purpuric areas that are indurated noted to R and L cheek. Small wound that is 100% slough (L)0.6cm x (W)0.7cm noted at sacrococcygeal area within base of DTPI. MASD noted to Perineum and skin folds of Medial/posterior aspects of Both upper thighs. Affected areas are erythematous and macerated with scattered satellite lesions. DTPI L Heel (L)3cm x (W)4cm, Base of heel is maroon and fluctuant with small purpuric area (L)0.4cm x (W)0.9cm within base of DTPI. l Foot including toes are mottled and cool to touch. L Heel is boggy. L Heel including toes are Mottled and cool to touch. Tx.Plan: Apply Moisture Barrier Paste to Sacrum. Cover with Optifoam drsg.Change every 3 days and prn. Apply Moisture Barrier Paste to abdominal folds, Perineum and skin folds of both upper thighs. Apply Cavilon Skin Barrier to both heels. Cover each Heel with Optifoam drsg. Change every 7 days and prn. Reposition at least every 2hours or as tolerated. Off-load heels with pillow. (7) Malnutrition Assessment & Plan: She was able to self feed on right hand and took a bite of popsicle and tolerated without s.s of aspiration. After 1st bite, then she refused 2nd bite. After this was done, I offered her a cup of cranberry juice, she took few sips and tolerated without s.s of aspiration. I continued to offer but she refused further PO. A: 1. Functional swallow 2. Failure to thrive 3. abnormal electrolytes in setting of heart failure, NSTEMI, elevated BNP, etc.. P/Rec. 1. Pureed and thin liquid 2.3. Goal of care discussion DAILY ESTIMATED NEEDS: Needs based on Cardiac, pulmonary/ 51kg abw 25-30 kcals/kg 8529-3343 total kcals 1-1.5 g protein/kg 51-76 g total protein 20-25 mL/kg 5157-8777 total fluid mLs NUTRITION DIAGNOSIS: Swallowing difficulty R/T dysphagia, decreased cognitive fxn as evidenced by [facility] [employer] recommends pureed moist texture diet at this time. CURRENT DIET:NPO PO DIET RECOMMENDATIONS: Liberalized REGULAR w/ poor PO (texture per YARN CARRIER) ADDITIONAL RECOMMENDATIONS: * Calibrated bedscale wt * Monitor PO intake: refusing meds and foods at this time -> rec nonoral feeds w/ continued refusal of PO if part of POC * LOW NA diet w/ PO intake consistently >50% * 4 oz Ensure TID w/ meals (4oz at this time due to poor acceptance, may increase to 8oz w/ good acceptance) Jim Orosco Oct 24, 2020 09:13
[2020-10-24] MEDS: Pantoprazole Inj IVP SCH (09:55)
--- NOTE | 2020-10-24 10:32 | Infectious Diseases Prog Note ---
Assessment/Plan Assessment/Plan IMPRESSION: Abnormal chest x-ray, atelectasis versus infiltrate in the left lung base, Recent history of COVID disease, Acute renal failure, Severe aortic stenosis Atrial fibrillation, hypothyroidism, Anemia. Chronic DVT of R leg RECOMMENDATION: Continue ceftriaxone until tonight Will have PEG placement Subjective ROS Limited/Unobtainable: Yes Gastrointestinal/Abdominal: Reports: other - Had EGD & PEG placement yesterday Allergies: Coded Allergies: No Known Allergies (Unverified , 10/17/20) Objective Last 24 Hour Vital Signs Date Time Temp Pulse Resp B/P (MAP) Pulse Ox O2 Delivery O2 Flow Rate FiO2 10/24/20 09:00 74 96/52 10/24/20 08:00 98.1 74 20 96/52 (67) 100 10/24/20 04:00 98.1 76 20 108/50 (69) 100 10/24/20 04:00 76 10/24/20 00:00 97.9 69 20 100/70 (80) 100 10/23/20 21:05 86 111/70 10/23/20 21:00 Nasal Cannula 2.0 10/23/20 20:00 98.1 86 20 111/70 (84) 97 10/23/20 20:00 93 10/23/20 16:00 97.5 65 20 98/58 (71) 94 10/23/20 16:00 102 10/23/20 14:50 107 18 126/42 100 Simple Mask 6 10/23/20 14:45 112 18 116/38 100 Simple Mask 6 10/23/20 14:44 111 18 96 10/23/20 14:43 107 16 100 10/23/20 14:40 96 18 121/49 100 Simple Mask 6 10/23/20 14:35 97.6 115 18 145/66 100 Simple Mask 6 10/23/20 12:00 97.7 105 20 102/63 (76) 94 10/23/20 12:00 105 Height (Feet): 5 Height (Inches): 0.00 Weight (Pounds): 145 HEENT: mucous membranes moist Respiratory/Chest: lungs clear Cardiovascular: normal rate Abdomen: soft, non tender, other - GT feeding Extremities: other - edema more in hands Neurologic/Psychiatric: alert, responsive Laboratory Tests Test 10/23/20 13:54 10/23/20 15:04 10/23/20 18:53 10/24/20 00:43 POC Whole Blood Glucose 103 MG/DL (74-106) 97 MG/DL (74-106) 108 MG/DL (74-106) H Arterial Blood pH 7.297 (7.350-7.450) Arterial Blood Partial Pressure CO2 60.0 mmHg (35.0-45.0) *H Arterial Blood Partial Pressure O2 133.2 mmHg (75.0-100.0) H Arterial Blood HCO3 28.7 mmol/L (22.0-26.0) H Arterial Blood Oxygen Saturation Pending Arterial Blood Base Excess 0.7 (-2-2) Gallo Test Positive Test 10/24/20 04:59 POC Whole Blood Glucose 97 MG/DL (74-106) Current Medications Medications (Trade) Dose Ordered Sig/Yolanda Route PRN Reason Start Time Stop Time Status Last Admin Dose Admin Acetaminophen (Tylenol) 500 mg Q6HR PRN ORAL Mild Pain 1-3 10/17/20 17:45 11/16/20 17:44 Acetaminophen (Tylenol) 500 mg Q6HR PRN ORAL fever >100 10/17/20 18:00 11/16/20 17:59 Acetaminophen (Tylenol) 650 mg Q4H PRN ORAL Pain Scale (6-10) 10/17/20 19:15 11/16/20 19:14 Ceftriaxone Sodium 1 gm/ Dextrose 55 ml @ 110 mls/hr Q24H IVPB 10/19/20 13:00 10/24/20 23:59 10/23/20 12:57 Chlorhexidine Gluconate (Eve-Hex 2%) 1 applic DAILY@2000 TOPIC 10/22/20 20:00 01/20/21 19:59 10/23/20 21:02 Dextrose/Sodium Chloride 1,000 ml @ 50 mls/hr Q20H IV 10/17/20 18:45 11/16/20 18:44 10/23/20 08:05 Docusate Sodium (Colace) 100 mg EVERY 8 HOURS ORAL 10/23/20 14:00 11/17/20 08:59 10/24/20 06:50 Famotidine (Pepcid) 20 mg DAILY ORAL 10/18/20 09:00 01/16/21 08:59 10/24/20 09:55 Heparin Sodium/ Sodium Chloride (Heparin 1000 units/500ml Premix) 1,000 unit ONCE PRN IV PICC LINE PLACEMENT 10/22/20 19:45 10/24/20 19:44 Levothyroxine Sodium (Synthroid) 50 mcg DAILY@0630 ORAL 10/19/20 06:30 11/18/20 06:29 10/24/20 06:51 Lidocaine HCl (Xylocaine 1% 30ml) 30 ml ONCE PRN INJ PICC LINE Placement 10/22/20 19:45 10/24/20 19:44 Metoprolol Tartrate (Lopressor) 25 mg EVERY 12 HOURS ORAL 10/19/20 21:00 01/17/21 20:59 10/23/20 21:05 Midodrine (Pro-Amatine) 10 mg Q8HR ORAL 10/18/20 14:00 01/16/21 13:59 10/24/20 06:51 Ondansetron HCl (Zofran) 4 mg Q6H PRN IVP Nausea & Vomiting 10/17/20 21:15 11/16/20 21:14 Pantoprazole (Protonix) 40 mg DAILY IVP 10/23/20 09:00 11/22/20 08:59 10/24/20 09:55 Luis Alvarado MD Oct 24, 2020 10:31
[2020-10-24] MEDS: D5 1/2NS 1,000 ML IV SCH (10:59)
--- NOTE | 2020-10-24 11:17 | Pulmonology Progress Note ---
Subjective ROS Limited/Unobtainable: Yes Interval Events: None major reported per nursing Constitutional: Reports: other - decreased appetite HEENT: Repors: no symptoms Respiratory: Reports: no symptoms Cardiovascular: Reports: no symptoms Gastrointestinal/Abdominal: Reports: other Psychiatric: Reports: other - refusing medications Allergies: Coded Allergies: No Known Allergies (Unverified , 10/17/20) Objective Last 24 Hour Vital Signs Date Time Temp Pulse Resp B/P (MAP) Pulse Ox O2 Delivery O2 Flow Rate FiO2 10/24/20 09:00 74 96/52 10/24/20 09:00 Nasal Cannula 2.0 10/24/20 08:00 98.1 74 20 96/52 (67) 100 10/24/20 08:00 72 10/24/20 04:00 98.1 76 20 108/50 (69) 100 10/24/20 04:00 76 10/24/20 00:00 97.9 69 20 100/70 (80) 100 10/23/20 21:05 86 111/70 10/23/20 21:00 Nasal Cannula 2.0 10/23/20 20:00 98.1 86 20 111/70 (84) 97 10/23/20 20:00 93 10/23/20 16:00 97.5 65 20 98/58 (71) 94 10/23/20 16:00 102 10/23/20 14:50 107 18 126/42 100 Simple Mask 6 10/23/20 14:45 112 18 116/38 100 Simple Mask 6 10/23/20 14:44 111 18 96 10/23/20 14:43 107 16 100 10/23/20 14:40 96 18 121/49 100 Simple Mask 6 10/23/20 14:35 97.6 115 18 145/66 100 Simple Mask 6 10/23/20 12:00 97.7 105 20 102/63 (76) 94 10/23/20 12:00 105 Intake and Output 10/23/20 10/24/20 19:00 07:00 Intake Total 0 ml Output Total 350 ml 150 ml Balance -350 ml -150 ml Intake Oral 0 ml Output Urine Total 350 ml 150 ml # Bowel Movements 1 1 General Appearance: no acute distress HEENT: atraumatic Respiratory: lungs clear Cardiovascular: normal rate, regular rhythm Abdomen: soft, non tender, other - s/p PEG Laboratory Tests 10/23/20 13:54: POC Whole Blood Glucose 103 10/23/20 15:04: Arterial Blood pH 7.297L, Arterial Blood Partial Pressure CO2 60.0*H, Arterial Blood Partial Pressure O2 133.2H, Arterial Blood HCO3 28.7H, Arterial Blood Oxygen Saturation [Pending], Arterial Blood Base Excess 0.7, Gallo Test Positive 10/23/20 18:53: POC Whole Blood Glucose 97 10/24/20 00:43: POC Whole Blood Glucose 108H 10/24/20 04:59: POC Whole Blood Glucose 97 10/24/20 10:41: Arterial Blood pH 7.295L, Arterial Blood Partial Pressure CO2 59.0*H, Arterial Blood Partial Pressure O2 135.6H, Arterial Blood HCO3 28.1H, Arterial Blood Oxygen Saturation 98.3, Arterial Blood Base Excess 0.9, Gallo Test Positive Current Medications Medications (Trade) Dose Ordered Sig/Yolanda Route PRN Reason Start Time Stop Time Status Last Admin Dose Admin Acetaminophen (Tylenol) 500 mg Q6HR PRN ORAL Mild Pain 1-3 10/17/20 17:45 11/16/20 17:44 Acetaminophen (Tylenol) 500 mg Q6HR PRN ORAL fever >100 10/17/20 18:00 11/16/20 17:59 Acetaminophen (Tylenol) 650 mg Q4H PRN ORAL Pain Scale (6-10) 10/17/20 19:15 11/16/20 19:14 Ceftriaxone Sodium 1 gm/ Dextrose 55 ml @ 110 mls/hr Q24H IVPB 10/19/20 13:00 10/24/20 23:59 10/23/20 12:57 Chlorhexidine Gluconate (Eve-Hex 2%) 1 applic DAILY@2000 TOPIC 10/22/20 20:00 01/20/21 19:59 10/23/20 21:02 Dextrose/Sodium Chloride 1,000 ml @ 50 mls/hr Q20H IV 10/17/20 18:45 11/16/20 18:44 10/24/20 10:59 Docusate Sodium (Colace) 100 mg EVERY 8 HOURS ORAL 10/23/20 14:00 11/17/20 08:59 10/24/20 06:50 Famotidine (Pepcid) 20 mg DAILY ORAL 10/18/20 09:00 01/16/21 08:59 10/24/20 09:55 Heparin Sodium/ Sodium Chloride (Heparin 1000 units/500ml Premix) 1,000 unit ONCE PRN IV PICC LINE PLACEMENT 10/22/20 19:45 10/24/20 19:44 Levothyroxine Sodium (Synthroid) 50 mcg DAILY@0630 ORAL 10/19/20 06:30 11/18/20 06:29 10/24/20 06:51 Lidocaine HCl (Xylocaine 1% 30ml) 30 ml ONCE PRN INJ PICC LINE Placement 10/22/20 19:45 10/24/20 19:44 Metoprolol Tartrate (Lopressor) 25 mg EVERY 12 HOURS ORAL 10/19/20 21:00 01/17/21 20:59 10/23/20 21:05 Midodrine (Pro-Amatine) 10 mg Q8HR ORAL 10/18/20 14:00 01/16/21 13:59 10/24/20 06:51 Ondansetron HCl (Zofran) 4 mg Q6H PRN IVP Nausea & Vomiting 10/17/20 21:15 11/16/20 21:14 Pantoprazole (Protonix) 40 mg DAILY IVP 10/23/20 09:00 11/22/20 08:59 10/24/20 09:55 Assessment/Plan Assessment/Plan 1. CHF, mild. 2. CAD/previous non-STEMI. 3. long term resident. 4. Bradycardia. 5. Atrial fibrillation. -Started on Eliquis 6. Renal insufficiency. -Nephro following 7. Troponin leak. - Cardio following 8. COVID-19 pneumonia, without fever or leukocytosis -On antibiotics per ID - We will hold off any specific therapy says she remains normoxemic on room air/low flow O2 9. Hypoxemia -now on 4L NC; wean as tolerated 10. 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 UTI, cheryl 12. Dysphagia -s/p PEG (10/23) The care of this patient was discussed with my supervising physician Time spent for this encounter was approximately 31 minutes Tl Pedro Oct 24, 2020 11:17
[2020-10-24] MEDS: cefTRIAXone 1 GM in D5W 55 ML IVPB SCH (14:02)
--- NOTE | 2020-10-24 14:05 | Nephrology Progress Note ---
Assessment/Plan Problem List: (1) Acute kidney injury (2) Anemia (3) Hyperkalemia (4) Elevated troponin (5) Pneumonia due to COVID-19 virus (6) Hypothyroidism Assessment Plan October 24: No CHEM panel drawn today.. Renal parameters stable. Patient had a GT placed yesterday. Will check labs tomorrow. Medication list reviewed. October 23: Labs reviewed. Renal parameters unchanged. Creatinine 1.9. Continue current management. Medication list reviewed. October 22: Labs reviewed. Serum creatinine lower at 1.8. Patient started on clear liquid. Patient refuses p.o. medications and food at times. Continue per consultants. October 21: Labs reviewed. Serum creatinine unchanged. Continue per consultants. Continue to monitor renal parameters. October 20: Today's labs reviewed. Serum creatinine unchanged. RN reports patient not taking any p.o. meds. Continue per consultants. Serum creatinine appears to be baseline. October 19: Today's labs still not done yet. RN informed. Albumin bolus given again. Continue to monitor electrolytes and renal parameters. Per orders October 18: Patient hypotensive. Due for blood transfusion. Will give albumin bolus. Continue to monitor renal parameters and electrolytes. Labs and medication list reviewed Subjective ROS Limited/Unobtainable: Yes Objective Objective Last 24 Hour Vital Signs Date Time Temp Pulse Resp B/P (MAP) Pulse Ox O2 Delivery O2 Flow Rate FiO2 10/24/20 12:00 81 10/24/20 12:00 98.3 71 20 94/54 (67) 99 10/24/20 09:00 74 96/52 10/24/20 09:00 Nasal Cannula 2.0 10/24/20 08:00 98.1 74 20 96/52 (67) 100 10/24/20 08:00 72 10/24/20 04:00 98.1 76 20 108/50 (69) 100 10/24/20 04:00 76 10/24/20 00:00 97.9 69 20 100/70 (80) 100 10/23/20 21:05 86 111/70 10/23/20 21:00 Nasal Cannula 2.0 10/23/20 20:00 98.1 86 20 111/70 (84) 97 10/23/20 20:00 93 10/23/20 16:00 97.5 65 20 98/58 (71) 94 10/23/20 16:00 102 10/23/20 14:50 107 18 126/42 100 Simple Mask 6 10/23/20 14:45 112 18 116/38 100 Simple Mask 6 10/23/20 14:44 111 18 96 10/23/20 14:43 107 16 100 10/23/20 14:40 96 18 121/49 100 Simple Mask 6 10/23/20 14:35 97.6 115 18 145/66 100 Simple Mask 6 Intake and Output 10/23/20 10/24/20 19:00 07:00 Intake Total 0 ml Output Total 350 ml 150 ml Balance -350 ml -150 ml Intake Oral 0 ml Output Urine Total 350 ml 150 ml # Bowel Movements 1 1 Current Medications Medications (Trade) Dose Ordered Sig/Yolanda Route PRN Reason Start Time Stop Time Status Last Admin Dose Admin Acetaminophen (Tylenol) 500 mg Q6HR PRN ORAL Mild Pain 1-3 10/17/20 17:45 11/16/20 17:44 Acetaminophen (Tylenol) 500 mg Q6HR PRN ORAL fever >100 10/17/20 18:00 11/16/20 17:59 Acetaminophen (Tylenol) 650 mg Q4H PRN ORAL Pain Scale (6-10) 10/17/20 19:15 11/16/20 19:14 Ceftriaxone Sodium 1 gm/ Dextrose 55 ml @ 110 mls/hr Q24H IVPB 10/19/20 13:00 10/24/20 23:59 10/24/20 14:02 Chlorhexidine Gluconate (Eve-Hex 2%) 1 applic DAILY@2000 TOPIC 10/22/20 20:00 01/20/21 19:59 10/23/20 21:02 Dextrose/Sodium Chloride 1,000 ml @ 50 mls/hr Q20H IV 10/17/20 18:45 11/16/20 18:44 10/24/20 10:59 Docusate Sodium (Colace) 100 mg EVERY 8 HOURS ORAL 10/23/20 14:00 11/17/20 08:59 10/24/20 14:02 Famotidine (Pepcid) 20 mg DAILY ORAL 10/18/20 09:00 01/16/21 08:59 10/24/20 09:55 Heparin Sodium/ Sodium Chloride (Heparin 1000 units/500ml Premix) 1,000 unit ONCE PRN IV PICC LINE PLACEMENT 10/22/20 19:45 10/24/20 19:44 Levothyroxine Sodium (Synthroid) 50 mcg DAILY@0630 ORAL 10/19/20 06:30 11/18/20 06:29 10/24/20 06:51 Lidocaine HCl (Xylocaine 1% 30ml) 30 ml ONCE PRN INJ PICC LINE Placement 10/22/20 19:45 10/24/20 19:44 Metoprolol Tartrate (Lopressor) 25 mg EVERY 12 HOURS ORAL 10/19/20 21:00 01/17/21 20:59 10/23/20 21:05 Midodrine (Pro-Amatine) 10 mg Q8HR ORAL 10/18/20 14:00 01/16/21 13:59 10/24/20 14:02 Ondansetron HCl (Zofran) 4 mg Q6H PRN IVP Nausea & Vomiting 10/17/20 21:15 11/16/20 21:14 Pantoprazole (Protonix) 40 mg DAILY IVP 10/23/20 09:00 11/22/20 08:59 10/24/20 09:55 Laboratory Tests 10/23/20 15:04: Arterial Blood pH 7.297L, Arterial Blood Partial Pressure CO2 60.0*H, Arterial Blood Partial Pressure O2 133.2H, Arterial Blood HCO3 28.7H, Arterial Blood Oxygen Saturation [Pending], Arterial Blood Base Excess 0.7, Gallo Test Positive 10/23/20 18:53: POC Whole Blood Glucose 97 10/24/20 00:43: POC Whole Blood Glucose 108H 10/24/20 04:59: POC Whole Blood Glucose 97 10/24/20 10:41: Arterial Blood pH 7.295L, Arterial Blood Partial Pressure CO2 59.0*H, Arterial Blood Partial Pressure O2 135.6H, Arterial Blood HCO3 28.1H, Arterial Blood Oxygen Saturation 98.3, Arterial Blood Base Excess 0.9, Gallo Test Positive Height (Feet): 5 Height (Inches): 0.00 Weight (Pounds): 145 Cardiovascular: normal rate Respiratory/Chest: decreased breath sounds Abdomen: distended Dustni Gómez MD Oct 24, 2020 14:05
--- NOTE | 2020-10-24 15:43 | NUR ---
PT Note PT afua completed, treatment initiated. Patient is awake, able to follow simple instructions. She presents with profound weakness in all extremities; edema noted all throughout specially BUE's. Patient needs physical therapy to increase her muscle strength to improve her functional mobility. Addendum: 10/24/20 at 1544 by MILLA HERNANDEZ PT Amended: Links added.
--- NOTE | 2020-10-24 15:45 | Cardiac Electrophysiology PN ---
Assessment/Plan Assessment/Plan 1. Non-ST elevation myocardial infarction with elevated troponin of more than 0.2. The level has come down to 0.19, but the levels are flat and likely due to renal failure as the creatinine is 2.1. On aspirin and Lopressor 25 bid 2. Atrial fibrillation with rapid ventricular response. On Lopressor 25 bid and resume Eliquis 2.5 bid 3. Questionable bradycardia. The heart rate has been in the 80s and 90s. It is possible that they could not record the heart beat in view of the patient's atrial fibrillation. 4. History of previous non-ST elevation myocardial infarction. 5. Renal insufficiency.Cr still 2.1 6. Status post COVID pneumonia, was tested positive more than two weeks ago 7. Dysphagia, S/P PEG 10/23/20 DW RN Subjective Subjective On D51/2 NS in Covid isolation. Atrial fib rate controlled in 80s S/P PEG by Dr Tobar 10/23/20 Objective Last 24 Hour Vital Signs Date Time Temp Pulse Resp B/P (MAP) Pulse Ox O2 Delivery O2 Flow Rate FiO2 10/24/20 12:00 81 10/24/20 12:00 98.3 71 20 94/54 (67) 99 10/24/20 09:00 74 96/52 10/24/20 09:00 Nasal Cannula 2.0 10/24/20 08:00 98.1 74 20 96/52 (67) 100 10/24/20 08:00 72 10/24/20 04:00 98.1 76 20 108/50 (69) 100 10/24/20 04:00 76 10/24/20 00:00 97.9 69 20 100/70 (80) 100 10/23/20 21:05 86 111/70 10/23/20 21:00 Nasal Cannula 2.0 10/23/20 20:00 98.1 86 20 111/70 (84) 97 10/23/20 20:00 93 10/23/20 16:00 97.5 65 20 98/58 (71) 94 10/23/20 16:00 102 Intake and Output 10/23/20 10/24/20 19:00 07:00 Intake Total 0 ml Output Total 350 ml 150 ml Balance -350 ml -150 ml Intake Oral 0 ml Output Urine Total 350 ml 150 ml # Bowel Movements 1 1 Laboratory Tests Test 10/23/20 18:53 10/24/20 00:43 10/24/20 04:59 10/24/20 10:41 POC Whole Blood Glucose 97 MG/DL (74-106) 108 MG/DL (74-106) H 97 MG/DL (74-106) Arterial Blood pH 7.295 (7.350-7.450) Arterial Blood Partial Pressure CO2 59.0 mmHg (35.0-45.0) *H Arterial Blood Partial Pressure O2 135.6 mmHg (75.0-100.0) H Arterial Blood HCO3 28.1 mmol/L (22.0-26.0) H Arterial Blood Oxygen Saturation 98.3 % (95-100) Arterial Blood Base Excess 0.9 (-2-2) Gallo Test Positive Objective HEAD AND NECK: No JVD. LUNGS: Decreased breath sounds. CARDIOVASCULAR: Irregular S1 and S2 with no gallop. ABDOMEN: Soft.S/P PEG EXTREMITIES: No pitting edema. Terry Reyes MD Oct 24, 2020 15:45
[2020-10-24] MEDS: Eliquis 2.5mg tablet ORAL SCH (17:52)
--- NOTE | 2020-10-24 18:53 | NUR ---
NURSE HAND-OFF REPORT: Important Events on Shift:n/a Patient Status: stable Diet: VITAL AF via G-tube Pending Orders: n/a Pending Results/Labs:n/a Pending MD notification:n/a Latest Vital Signs: Temperature 98.0 , Pulse 78 , B/P 93 /74 , Respiratory Rate 20 , O2 SAT 99 , Simple Mask, O2 Flow Rate 2.0 . Vital Sign Comment: stable EKG Rhythm: A-fib Rhythm change?: N MD Notified?: - MD Response: Latest Elizabeth Fall Score: 70 Fall Risk: High Risk Safety Measures: Call light Within Reach, Bed Alarm Zone 1, Side Rails Side Rails x3, Bed position Low and Locked. Fall Precautions: Yellow Socks Patient Fall Education Report given to .
--- NOTE | 2020-10-24 19:19 | General Progress Note ---
Subjective Allergies: Coded Allergies: No Known Allergies (Unverified , 10/17/20) Subjective above noted s/p PEG TF started D/w field staff Objective Last 24 Hour Vital Signs Date Time Temp Pulse Resp B/P (MAP) Pulse Ox O2 Delivery O2 Flow Rate FiO2 10/24/20 16:00 98.0 78 20 93/74 (80) 99 10/24/20 16:00 93 10/24/20 12:00 81 10/24/20 12:00 98.3 71 20 94/54 (67) 99 10/24/20 09:00 74 96/52 10/24/20 09:00 Nasal Cannula 2.0 10/24/20 08:00 98.1 74 20 96/52 (67) 100 10/24/20 08:00 72 10/24/20 04:00 98.1 76 20 108/50 (69) 100 10/24/20 04:00 76 10/24/20 00:00 97.9 69 20 100/70 (80) 100 10/23/20 21:05 86 111/70 10/23/20 21:00 Nasal Cannula 2.0 10/23/20 20:00 98.1 86 20 111/70 (84) 97 10/23/20 20:00 93 Intake and Output 10/23/20 10/24/20 19:00 07:00 Intake Total 0 ml Output Total 350 ml 150 ml Balance -350 ml -150 ml Intake Oral 0 ml Output Urine Total 350 ml 150 ml # Bowel Movements 1 1 Laboratory Tests 10/24/20 00:43: POC Whole Blood Glucose 108H 10/24/20 04:59: POC Whole Blood Glucose 97 10/24/20 10:41: Arterial Blood pH 7.295L, Arterial Blood Partial Pressure CO2 59.0*H, Arterial Blood Partial Pressure O2 135.6H, Arterial Blood HCO3 28.1H, Arterial Blood Oxygen Saturation 98.3, Arterial Blood Base Excess 0.9, Gallo Test Positive Height (Feet): 5 Height (Inches): 0.00 Weight (Pounds): 145 Objective Obese woman NCAT supple CTA RR abd soft obese (+) PEG no edema Assessment/Plan Status: progressing Assessment/Plan: Assessment - dysphagia - s/p PEG - anemia - OB (+) stools Recommendations - advance TF to goal - elevated HOB - monitor H&H - GT care Clare Cook MD Oct 24, 2020 19:19
[2020-10-24] MEDS: Dyna-Hex 2% Top Sol 2oz TOPIC SCH (20:22)
--- NOTE | 2020-10-24 21:00 | NUR ---
NURSE NOTES: patient had a Lopressor due i didnt gave it because her heart rate was low on 64
--- NOTE | 2020-10-24 21:40 | General Progress Note ---
Subjective ROS Limited/Unobtainable: Yes Allergies: Coded Allergies: No Known Allergies (Unverified , 10/17/20) Objective Last 24 Hour Vital Signs Date Time Temp Pulse Resp B/P (MAP) Pulse Ox O2 Delivery O2 Flow Rate FiO2 10/24/20 21:00 64 114/66 10/24/20 16:00 98.0 78 20 93/74 (80) 99 10/24/20 16:00 93 10/24/20 12:00 81 10/24/20 12:00 98.3 71 20 94/54 (67) 99 10/24/20 09:00 74 96/52 10/24/20 09:00 Nasal Cannula 2.0 10/24/20 08:00 98.1 74 20 96/52 (67) 100 10/24/20 08:00 72 10/24/20 04:00 98.1 76 20 108/50 (69) 100 10/24/20 04:00 76 10/24/20 00:00 97.9 69 20 100/70 (80) 100 Intake and Output 10/23/20 10/24/20 19:00 07:00 Intake Total 0 ml Output Total 350 ml 150 ml Balance -350 ml -150 ml Intake Oral 0 ml Output Urine Total 350 ml 150 ml # Bowel Movements 1 1 Laboratory Tests 10/24/20 00:43: POC Whole Blood Glucose 108H 10/24/20 04:59: POC Whole Blood Glucose 97 10/24/20 10:41: Arterial Blood pH 7.295L, Arterial Blood Partial Pressure CO2 59.0*H, Arterial Blood Partial Pressure O2 135.6H, Arterial Blood HCO3 28.1H, Arterial Blood Oxygen Saturation 98.3, Arterial Blood Base Excess 0.9, Gallo Test Positive Height (Feet): 5 Height (Inches): 0.00 Weight (Pounds): 145 Assessment/Plan Problem List: (1) Anemia ICD Codes: D64.9 - Anemia, unspecified SNOMED: 732206786 (2) Acute kidney injury ICD Codes: N17.9 - Acute kidney failure, unspecified SNOMED: 01771519, 7088728 (3) Atrial fibrillation ICD Codes: I48.91 - Unspecified atrial fibrillation SNOMED: 02012360 (4) Elevated troponin ICD Codes: R77.8 - Other specified abnormalities of plasma proteins SNOMED: 741856032, 180131734, 228539548 (5) Malnutrition ICD Codes: E46 - Unspecified protein-calorie malnutrition SNOMED: 04820842 (6) Pneumonia due to COVID-19 virus ICD Codes: U07.1 - COVID-19; J12.82 - Pneumonia due to coronavirus disease 2019 SNOMED: 949375195938847785 (7) Hypothyroidism ICD Codes: E03.9 - Hypothyroidism, unspecified SNOMED: 22935040 Status: progressing Assessment/Plan: on supportive oxygen rx s/p peg resp insuff covid + reviewed chart and labs and meds arrythmia afebrile Neri Dumont MD Oct 24, 2020 21:40
[2020-10-25] VITALS (16 sets, daily range): BP systolic 72–134; BP diastolic 34–95
--- NOTE | 2020-10-25 02:00 | NUR ---
NURSE HAND-OFF REPORT: Important Events on Shift: Patient Status: Diet: earlier at 2100 patient had a LOPRESSOR due i didnt gave it because her heart rate was low on 64, now her heart rate is high 135 and her blood pressure is low 83/47 i notified the . waiting on the to respond
--- NOTE | 2020-10-25 04:04 | NUR ---
NURSE NOTES: i reassess the patient BP it get better to 111/64 the heart rate still remain the same up and down to 135-108 i let the charge nurse know also MAYA JOSEPH. still haven't reach out back. waiting on DR james
[2020-10-25] MEDS: Docusate 100mg cap ORAL SCH (06:30)
[2020-10-25] MEDS: D5 1/2NS 1,000 ML IV SCH (06:45)
[2020-10-25] MEDS: Midodrine 10mg tab ORAL SCH ×3 (07:45→21:33)
--- NOTE | 2020-10-25 07:53 | NUR ---
NURSE HAND-OFF REPORT: patient left forearm very swolling i notified the doctor Helena Report given to .joshua
--- NOTE | 2020-10-25 08:23 | NUR ---
NURSE NOTES: assumed care for pt at 0745 pt is in bed, on library monitor and on RA saturating at 92%. Left arm is swollen and edematous from IV and IV removed by previous shift. pt is currently hypotensive. Notfied Dr. Reyes and Ana Luisa about no IV access. CVC placement ordered. Consent received from next of kin, called and confirmed with second RN
[2020-10-25] MEDS: Pantoprazole Inj IVP SCH (09:00)
[2020-10-25] MEDS: Eliquis 2.5mg tablet ORAL SCH ×2 (09:00→18:00)
[2020-10-25 09:06] LABS: HEMATOCRIT 32.8 % (37.0-47.0); HEMOGLOBIN 10.2 G/DL (12.0-16.0); MEAN CORPUSCULAR VOLUME 97 FL (80-99); PLATELET COUNT 148 K/UL (150-450); RED BLOOD COUNT 3.39 M/UL (4.20-5.40); RED CELL DISTRIBUTION WIDTH 18.9 % (11.6-14.8); WHITE BLOOD COUNT 6.8 K/UL (4.8-10.8)
[2020-10-25 09:14] LABS: ALBUMIN 2.3 G/DL (3.4-5.0); ALBUMIN/GLOBULIN RATIO 0.7 (1.0-2.7); BILIRUBIN,TOTAL 0.5 MG/DL (0.2-1.0); CALCIUM 7.8 MG/DL (8.5-10.1); CREATININE 2.1 MG/DL (0.55-1.30); POTASSIUM 3.9 MMOL/L (3.5-5.1)
--- NOTE | 2020-10-25 09:29 | Pulmonology Progress Note ---
Subjective ROS Limited/Unobtainable: Yes Interval Events: None major reported per nursing Constitutional: Reports: other - decreased appetite HEENT: Repors: no symptoms Respiratory: Reports: no symptoms Cardiovascular: Reports: no symptoms Gastrointestinal/Abdominal: Reports: other Psychiatric: Reports: other - refusing medications; s/p PEG Allergies: Coded Allergies: No Known Allergies (Unverified , 10/17/20) Objective Last 24 Hour Vital Signs Date Time Temp Pulse Resp B/P (MAP) Pulse Ox O2 Delivery O2 Flow Rate FiO2 10/25/20 07:59 97.9 20 77/36 (50) 10/25/20 04:00 97.4 86 20 123/62 (82) 95 10/25/20 04:00 131 10/25/20 00:00 97.7 88 16 134/95 (108) 95 10/24/20 21:00 Nasal Cannula 2.0 10/24/20 21:00 97.7 64 16 114/66 (82) 100 10/24/20 21:00 64 114/66 10/24/20 20:00 89 10/24/20 20:00 97.7 64 16 114/66 (82) 100 10/24/20 16:00 98.0 78 20 93/74 (80) 99 10/24/20 16:00 93 10/24/20 12:00 81 10/24/20 12:00 98.3 71 20 94/54 (67) 99 Intake and Output 10/24/20 10/25/20 19:00 07:00 Output Total 250 ml Balance -250 ml Output Urine Total 250 ml # Bowel Movements 1 1 General Appearance: no acute distress HEENT: atraumatic Respiratory: lungs clear Cardiovascular: normal rate, regular rhythm Abdomen: soft, non tender, other - s/p PEG Laboratory Tests 10/24/20 10:41: Arterial Blood pH 7.295L, Arterial Blood Partial Pressure CO2 59.0*H, Arterial Blood Partial Pressure O2 135.6H, Arterial Blood HCO3 28.1H, Arterial Blood Oxygen Saturation 98.3, Arterial Blood Base Excess 0.9, Gallo Test Positive 10/24/20 12:15: POC Whole Blood Glucose 106 10/24/20 16:18: POC Whole Blood Glucose 109H 10/25/20 00:43: POC Whole Blood Glucose 121H 10/25/20 08:45: White Blood Count 6.8, Red Blood Count 3.39L, Hemoglobin 10.2L, Hematocrit 32.8L , Mean Corpuscular Volume 97, Mean Corpuscular Hemoglobin 29.9, Mean Corpuscular Hemoglobin Concent 31.0L, Red Cell Distribution Width 18.9H, Platelet Count 148L , Mean Platelet Volume 8.3, Neutrophils (%) (Auto) , Lymphocytes (%) (Auto) , Monocytes (%) (Auto) , Eosinophils (%) (Auto) , Basophils (%) (Auto) , Differential Total Cells Counted 100, Neutrophils % (Manual) 72, Lymphocytes % (Manual) 14L, Monocytes % (Manual) 6, Eosinophils % (Manual) 0, Basophils % (Manual) 0, Band Neutrophils 8, Platelet Estimate DecreasedL, Platelet Morphology Normal, Anisocytosis 1+, Sodium Level 137, Potassium Level 3.9, Chloride Level 103, Carbon Dioxide Level 28, Anion Gap 6, Blood Urea Nitrogen 36H, Creatinine 2.1H, Estimat Glomerular Filtration Rate 22.5, Glucose Level 149H, Calcium Level 7.8L, Phosphorus Level 3.0, Magnesium Level 1.9, Total Bilirubin 0.5, Aspartate Amino Transf (AST/SGOT) 11L, Alanine Aminotransferase (ALT/SGPT) 7L, Alkaline Phosphatase 86, C-Reactive Protein, Quantitative [Pending], Pro-B-Type Natriuretic Peptide [Pending], Total Protein 5.5L, Albumin 2.3L, Globulin 3.2, Albumin/Globulin Ratio 0.7L Current Medications Medications (Trade) Dose Ordered Sig/Yolanda Route PRN Reason Start Time Stop Time Status Last Admin Dose Admin Acetaminophen (Tylenol) 500 mg Q6HR PRN ORAL Mild Pain 1-3 10/17/20 17:45 11/16/20 17:44 Acetaminophen (Tylenol) 500 mg Q6HR PRN ORAL fever >100 10/17/20 18:00 11/16/20 17:59 Acetaminophen (Tylenol) 650 mg Q4H PRN ORAL Pain Scale (6-10) 10/17/20 19:15 11/16/20 19:14 Apixaban (Eliquis) 2.5 mg BID ORAL 10/24/20 18:00 01/22/21 17:59 10/24/20 17:52 Chlorhexidine Gluconate (Eve-Hex 2%) 1 applic DAILY@1999 TOPIC 10/22/20 20:00 01/20/21 19:59 10/24/20 20:22 Dextrose/Sodium Chloride 1,000 ml @ 50 mls/hr Q20H IV 10/17/20 18:45 11/16/20 18:44 10/24/20 10:59 Docusate Sodium (Colace) 100 mg EVERY 8 HOURS ORAL 10/23/20 14:00 11/17/20 08:59 10/24/20 14:02 Famotidine (Pepcid) 20 mg DAILY ORAL 10/18/20 09:00 01/16/21 08:59 10/25/20 08:14 Levothyroxine Sodium (Synthroid) 50 mcg DAILY@06 ORAL 10/19/20 06:30 11/18/20 06:29 10/25/20 07:44 Lidocaine/ Epinephrine (Lidocaine/ Epinephrine 2%) 20 ml ONCE PRN INJ for central line placement 10/25/20 10:00 10/26/20 09:59 Metoprolol Tartrate (Lopressor) 25 mg EVERY 12 HOURS ORAL 10/19/20 21:00 01/17/21 20:59 10/23/20 21:05 Midodrine (Pro-Amatine) 10 mg Q8HR ORAL 10/18/20 14:00 01/16/21 13:59 10/25/20 07:45 Ondansetron HCl (Zofran) 4 mg Q6H PRN IVP Nausea & Vomiting 10/17/20 21:15 11/16/20 21:14 Pantoprazole (Protonix) 40 mg DAILY IVP 10/23/20 09:00 11/22/20 08:59 10/24/20 09:55 Assessment/Plan Assessment/Plan 1. CHF, mild. 2. CAD/previous non-STEMI. 3. [facility] resident. 4. Bradycardia. 5. Atrial fibrillation. -Started on Eliquis 6. Renal insufficiency. -Nephro following 7. Troponin leak. - Cardio following 8. COVID-19 pneumonia, without fever or leukocytosis -On antibiotics per ID - We will hold off any specific therapy says she remains normoxemic on room air/low flow O2 9. Hypoxemia -now on 4L NC; wean as tolerated 10. 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 UTI, cheryl 12. Dysphagia -s/p PEG (10/23) 13. Hypotension - awaiting transfer to ICU for levophed The care of this patient was discussed with my supervising physician Time spent for this encounter was approximately 31 minutes Tl Pedro Oct 25, 2020 09:29
[2020-10-25] MEDS ORDERED: Lidocaine 2% 20mg/ml/EPI 0.01mg/ml 20ml INJ PRN (10:00)
--- NOTE | 2020-10-25 10:10 | NUR ---
pt was placed in trendelenberg to support low blood pressure. improvement noted. Dr. Orosco placed triple lumen catheter in R femoral.
--- NOTE | 2020-10-25 11:07 | Surgery Progress Note ---
Surgery Progress Note Subjective Additional Comments hypotensive needs pressors and fluids urgent central line placed Objective Last 24 Hour Vital Signs Date Time Temp Pulse Resp B/P (MAP) Pulse Ox O2 Delivery O2 Flow Rate FiO2 10/25/20 09:00 125 75/33 10/25/20 08:00 119 10/25/20 07:59 97.9 20 77/36 (50) 10/25/20 04:00 97.4 86 20 123/62 (82) 95 10/25/20 04:00 131 10/25/20 00:00 97.7 88 16 134/95 (108) 95 10/24/20 21:00 Nasal Cannula 2.0 10/24/20 21:00 97.7 64 16 114/66 (82) 100 10/24/20 21:00 64 114/66 10/24/20 20:00 89 10/24/20 20:00 97.7 64 16 114/66 (82) 100 10/24/20 16:00 98.0 78 20 93/74 (80) 99 10/24/20 16:00 93 10/24/20 12:00 81 10/24/20 12:00 98.3 71 20 94/54 (67) 99 I&O Intake and Output 10/24/20 10/25/20 19:00 07:00 Output Total 250 ml Balance -250 ml Output Urine Total 250 ml # Bowel Movements 1 1 Laboratory Tests Test 10/24/20 12:15 10/24/20 16:18 10/25/20 00:43 10/25/20 08:45 POC Whole Blood Glucose 106 MG/DL (74-106) 109 MG/DL (74-106) H 121 MG/DL (74-106) H White Blood Count 6.8 K/UL (4.8-10.8) Red Blood Count 3.39 M/UL (4.20-5.40) L Hemoglobin 10.2 G/DL (12.0-16.0) L Hematocrit 32.8 % (37.0-47.0) L Mean Corpuscular Volume 97 FL (80-99) Mean Corpuscular Hemoglobin 29.9 PG (27.0-31.0) Mean Corpuscular Hemoglobin Concent 31.0 G/DL (32.0-36.0) L Red Cell Distribution Width 18.9 % (11.6-14.8) H Platelet Count 148 K/UL (150-450) L Mean Platelet Volume 8.3 FL (6.5-10.1) Neutrophils (%) (Auto) % (45.0-75.0) Lymphocytes (%) (Auto) % (20.0-45.0) Monocytes (%) (Auto) % (1.0-10.0) Eosinophils (%) (Auto) % (0.0-3.0) Basophils (%) (Auto) % (0.0-2.0) Differential Total Cells Counted 100 Neutrophils % (Manual) 72 % (45-75) Lymphocytes % (Manual) 14 % (20-45) L Monocytes % (Manual) 6 % (1-10) Eosinophils % (Manual) 0 % (0-3) Basophils % (Manual) 0 % (0-2) Band Neutrophils 8 % (0-8) Platelet Estimate Decreased L Platelet Morphology Normal Anisocytosis 1+ Sodium Level 137 MMOL/L (136-145) Potassium Level 3.9 MMOL/L (3.5-5.1) Chloride Level 103 MMOL/L (98-107) Carbon Dioxide Level 28 MMOL/L (21-32) Anion Gap 6 mmol/L (5-15) Blood Urea Nitrogen 36 mg/dL (7-18) H Creatinine 2.1 MG/DL (0.55-1.30) H Estimat Glomerular Filtration Rate 22.5 mL/min (>60) Glucose Level 149 MG/DL (74-106) H Calcium Level 7.8 MG/DL (8.5-10.1) L Phosphorus Level 3.0 MG/DL (2.5-4.9) Magnesium Level 1.9 MG/DL (1.8-2.4) Total Bilirubin 0.5 MG/DL (0.2-1.0) Aspartate Amino Transf (AST/SGOT) 11 U/L (15-37) L Alanine Aminotransferase (ALT/SGPT) 7 U/L (12-78) L Alkaline Phosphatase 86 U/L (46-116) C-Reactive Protein, Quantitative 4.4 mg/dL (0.00-0.90) H Pro-B-Type Natriuretic Peptide > 79347 pg/mL (0-125) H Total Protein 5.5 G/DL (6.4-8.2) L Albumin 2.3 G/DL (3.4-5.0) L Globulin 3.2 g/dL Albumin/Globulin Ratio 0.7 (1.0-2.7) L Plan Problems: (1) Anemia (2) Acute kidney injury (3) Atrial fibrillation (4) Hyperkalemia (5) Elevated troponin (6) Decubitus skin ulcer Assessment & Plan: Pt presented on admission with Multiple Medical Comorbidities including Covid-19 and Pressure Injuries. Primary Nurse reported Pt has been declining food and medications. Sacral DTPI that is evolving noted to Sacrum(L)6cm x (W)12.5cm.. Scattered Purpuric areas that are indurated noted to R and L cheek. Small wound that is 100% slough (L)0.6cm x (W)0.7cm noted at sacrococcygeal area within base of DTPI. MASD noted to Perineum and skin folds of Medial/posterior aspects of Both upper thighs. Affected areas are erythematous and macerated with scattered satellite lesions. DTPI L Heel (L)3cm x (W)4cm, Base of heel is maroon and fluctuant with small purpuric area (L)0.4cm x (W)0.9cm within base of DTPI. l Foot including toes are mottled and cool to touch. L Heel is boggy. L Heel including toes are Mottled and cool to touch. Tx.Plan: Apply Moisture Barrier Paste to Sacrum. Cover with Optifoam drsg.Change every 3 days and prn. Apply Moisture Barrier Paste to abdominal folds, Perineum and skin folds of both upper thighs. Apply Cavilon Skin Barrier to both heels. Cover each Heel with Optifoam drsg. Change every 7 days and prn. Reposition at least every 2hours or as tolerated. Off-load heels with pillow. (7) Malnutrition Assessment & Plan: She was able to self feed on right hand and took a bite of popsicle and tolerated without s.s of aspiration. After 1st bite, then she refused 2nd bite. After this was done, I offered her a cup of cranberry juice, she took few sips and tolerated without s.s of aspiration. I continued to offer but she refused further PO. A: 1. Functional swallow 2. Failure to thrive 3. abnormal electrolytes in setting of heart failure, NSTEMI, elevated BNP, etc.. P/Rec. 1. Pureed and thin liquid 2.3. Goal of care discussion DAILY ESTIMATED NEEDS: Needs based on Cardiac, pulmonary/ 51kg abw 25-30 kcals/kg 2832-8036 total kcals 1-1.5 g protein/kg 51-76 g total protein 20-25 mL/kg [id number] total fluid mLs NUTRITION DIAGNOSIS: Swallowing difficulty R/T dysphagia, decreased cognitive fxn as evidenced by BULK SEALER recommends pureed moist texture diet at this time. CURRENT DIET:NPO PO DIET RECOMMENDATIONS: Liberalized REGULAR w/ poor PO (texture per BULK SEALER) ADDITIONAL RECOMMENDATIONS: * Calibrated bedscale wt * Monitor PO intake: refusing meds and foods at this time -> rec nonoral feeds w/ continued refusal of PO if part of POC * LOW NA diet w/ PO intake consistently >50% * 4 oz Ensure TID w/ meals (4oz at this time due to poor acceptance, may increase to 8oz w/ good acceptance) Jim Orosco Oct 25, 2020 11:07
--- NOTE | 2020-10-25 11:09 | Operative Note - PDOC ---
Operative Note Operative Note Date of Operation/Procedure: Oct 25, 2020 Pre-op Diagnosis: Hypertension Dehydration Procedure: Right femoral central venous catheter insertion Post-op Diagnosis: same as pre-op Surgeon: Jim Orosco MD Anesthesiologist: balaji Anesthesia: local Specimen: none Complications: none Condition: unstable Estimated Blood Loss: minimal Drains: none Implant(s) used?: No Indications for Procedure This is a 85-year-old female currently admitted to [facility] who acutely became hypotensive tachycardic with change in mental status significantly dehydrated requiring resuscitation does not have peripheral access central venous access indicated recommended in place at the bedside emergently Description of Procedure Patient made comfortable at the bedside the right groin was prepped and draped in the same surgical fashion local anesthetic was infiltrated anatomic landmarks identified right femoral vein cannulated on first stick good venous flow identified guidewire placed through the needle needle removed. Small skin incision made around the guidewire dilator used triple-lumen catheter inserted all ports flushed and aspirated appropriately Line sutured in place dressings applied patient taught procedure well okay to use Jim Orosco Oct 25, 2020 11:09
--- NOTE | 2020-10-25 11:19 | NUR ---
per ICU charge nurse pt will not be transferred to ICU yet. blood pressure support through fluids will be first attempted and if not effective then the pt will be transferred to ICU
--- NOTE | 2020-10-25 11:43 | Hematology/Onc Progress Note ---
Assessment/Plan Assessment/Plan Assessment and recs # Anemia r/o gi bleed --> anemia panel has been ordered-->reviewed --> hgb 8.1->9.3->9.7-->9.5-->10.5-->10.2 --> no hemolysis is noted --> transfuse on prn basis # Thrombocytopenia likely due to reactive process --> plt 138-->149 --> viral w/u neg # Hypercoag disorder with Atrial fibrillation --> consider anticoag as per cards --> if bleeding, consider hold anticoag # Elevated trop --> per cards # Hyperkalemia --> per renal # Acute kidney injury --> per renal # Recently COVID-19 positive # Dvt ppx scds --> lovenox sq Appreciate consultation and rosio rn Subjective Constitutional: Denies: no symptoms, chills, fever, malaise, weakness, other HEENT: Denies: no symptoms, eye pain, blurred vision, tearing, double vision, ear pain, ear discharge, nose pain, nose congestion, throat pain, throat swelling, mouth pain, mouth swelling, other Respiratory: Denies: no symptoms, cough, shortness of breath, SOB with excertion, SOB at rest, sputum, wheezing, other Gastrointestinal/Abdominal: Denies: no symptoms, abdomen distended, abdominal pain, black stools, tarry stools, blood in stool, constipated, diarrhea, difficulty swallowing, nausea, poor appetite, poor fluid intake, rectal bleeding, vomiting, other Genitourinary: Denies: no symptoms, burning, discharge, frequency, flank pain, hematuria, incontinence, pain, urgency, other Neurologic/Psychiatric: Denies: no symptoms, anxiety, depressed, emotional problems, headache, numbness, paresthesia, pre-existing deficit, seizure, tingling, tremors, weakness, other Endocrine: Denies: no symptoms, excessive sweating, flushing, intolerance to cold, intolerance to heat, increased hunger, increased thirst, increased urine, unexplained weight gain, unexplained weight loss, other Allergies: Coded Allergies: No Known Allergies (Unverified , 10/17/20) Subjective 10/19 cbc is pending, did get blood transfusion last night, pending results 10/20 meds noted, no bleeding, labs reviewed, rosio rn, no new changes 10/21 on 4l nc, has been refusing labs, meds noted, no bleeding 10/22 nc, refusing meds labs reviewed, rosio rn 10/23 is potentially for egd this am, no bleeding, cbc is noted 10/25 meds noted, no bleeidng, is on nc, no night sweats, bp bolus pending Objective Objective Current Medications Medications (Trade) Dose Ordered Sig/Yolanda Route PRN Reason Start Time Stop Time Status Last Admin Dose Admin Acetaminophen (Tylenol) 500 mg Q6HR PRN ORAL Mild Pain 1-3 10/17/20 17:45 11/16/20 17:44 Acetaminophen (Tylenol) 500 mg Q6HR PRN ORAL fever >100 10/17/20 18:00 11/16/20 17:59 Acetaminophen (Tylenol) 650 mg Q4H PRN ORAL Pain Scale (6-10) 10/17/20 19:15 11/16/20 19:14 Albumin Human 500 ml @ 0 mls/hr Q0M IV 10/25/20 11:15 10/25/20 12:15 Apixaban (Eliquis) 2.5 mg BID ORAL 10/24/20 18:00 01/22/21 17:59 10/24/20 17:52 Chlorhexidine Gluconate (Eve-Hex 2%) 1 applic DAILY@2000 TOPIC 10/22/20 20:00 01/20/21 19:59 10/24/20 20:22 Dextrose/Sodium Chloride 1,000 ml @ 50 mls/hr Q20H IV 10/17/20 18:45 11/16/20 18:44 10/24/20 10:59 Docusate Sodium (Colace) 100 mg EVERY 8 HOURS ORAL 10/23/20 14:00 11/17/20 08:59 10/24/20 14:02 Famotidine (Pepcid) 20 mg DAILY ORAL 10/18/20 09:00 01/16/21 08:59 10/25/20 08:14 Levothyroxine Sodium (Synthroid) 50 mcg DAILY@0630 ORAL 10/19/20 06:30 11/18/20 06:29 10/25/20 07:44 Lidocaine/ Epinephrine (Lidocaine/ Epinephrine 2%) 20 ml ONCE PRN INJ for central line placement 10/25/20 10:00 3/1/21 09:59 Metoprolol Tartrate (Lopressor) 25 mg EVERY 12 HOURS ORAL 10/19/20 21:00 01/17/21 20:59 10/23/20 21:05 Midodrine (Pro-Amatine) 10 mg Q8HR ORAL 10/18/20 14:00 01/16/21 13:59 10/25/20 07:45 Ondansetron HCl (Zofran) 4 mg Q6H PRN IVP Nausea & Vomiting 10/17/20 21:15 11/16/20 21:14 Pantoprazole (Protonix) 40 mg DAILY IVP 10/23/20 09:00 11/22/20 08:59 10/24/20 09:55 Sodium Chloride 1,000 ml @ 125 mls/hr Q8H IV 10/25/20 11:30 11/24/20 11:29 Last 24 Hour Vital Signs Date Time Temp Pulse Resp B/P (MAP) Pulse Ox O2 Delivery O2 Flow Rate FiO2 10/25/20 09:00 125 75/33 10/25/20 08:00 119 10/25/20 07:59 97.9 20 77/36 (50) 10/25/20 04:00 97.4 86 20 123/62 (82) 95 10/25/20 04:00 131 10/25/20 00:00 97.7 88 16 134/95 (108) 95 10/24/20 21:00 Nasal Cannula 2.0 10/24/20 21:00 97.7 64 16 114/66 (82) 100 10/24/20 21:00 64 114/66 10/24/20 20:00 89 10/24/20 20:00 97.7 64 16 114/66 (82) 100 10/24/20 16:00 98.0 78 20 93/74 (80) 99 10/24/20 16:00 93 10/24/20 12:00 81 10/24/20 12:00 98.3 71 20 94/54 (67) 99 10/24/20 09:00 74 96/52 10/24/20 09:00 Nasal Cannula 2.0 10/24/20 08:00 98.1 74 20 96/52 (67) 100 10/24/20 08:00 72 10/24/20 04:00 98.1 76 20 108/50 (69) 100 10/24/20 04:00 76 10/24/20 00:00 97.9 69 20 100/70 (80) 100 10/23/20 21:05 86 111/70 10/23/20 21:00 Nasal Cannula 2.0 10/23/20 20:00 98.1 86 20 111/70 (84) 97 10/23/20 20:00 93 10/23/20 16:00 97.5 65 20 98/58 (71) 94 10/23/20 16:00 102 10/23/20 14:50 107 18 126/42 100 Simple Mask 6 10/23/20 14:45 112 18 116/38 100 Simple Mask 6 10/23/20 14:44 111 18 96 10/23/20 14:43 107 16 100 10/23/20 14:40 96 18 121/49 100 Simple Mask 6 10/23/20 14:35 97.6 115 18 145/66 100 Simple Mask 6 10/23/20 12:00 97.7 105 20 102/63 (76) 94 10/23/20 12:00 105 Intake and Output 10/24/20 10/25/20 19:00 07:00 Output Total 250 ml Balance -250 ml Output Urine Total 250 ml # Bowel Movements 1 1 Labs Test 10/22/20 13:48 10/22/20 19:00 10/23/20 00:50 10/23/20 05:00 POC Whole Blood Glucose 81 MG/DL (74-106) 104 MG/DL (74-106) White Blood Count 5.8 K/UL (4.8-10.8) Red Blood Count 3.51 M/UL (4.20-5.40) Hemoglobin 10.5 G/DL (12.0-16.0) Hematocrit 33.8 % (37.0-47.0) Mean Corpuscular Volume 96 FL (80-99) Mean Corpuscular Hemoglobin 29.9 PG (27.0-31.0) Mean Corpuscular Hemoglobin Concent 31.1 G/DL (32.0-36.0) Red Cell Distribution Width 18.7 % (11.6-14.8) Platelet Count 149 K/UL (150-450) Mean Platelet Volume 8.2 FL (6.5-10.1) Neutrophils (%) (Auto) 83.8 % (45.0-75.0) Lymphocytes (%) (Auto) 9.3 % (20.0-45.0) Monocytes (%) (Auto) 5.0 % (1.0-10.0) Eosinophils (%) (Auto) 0.8 % (0.0-3.0) Basophils (%) (Auto) 1.2 % (0.0-2.0) Sodium Level 135 MMOL/L (136-145) Potassium Level 4.5 MMOL/L (3.5-5.1) Chloride Level 100 MMOL/L (98-107) Carbon Dioxide Level 29 MMOL/L (21-32) Anion Gap 6 mmol/L (5-15) Blood Urea Nitrogen 35 mg/dL (7-18) Creatinine 1.9 MG/DL (0.55-1.30) Estimat Glomerular Filtration Rate 25.2 mL/min (>60) Glucose Level 90 MG/DL (74-106) Calcium Level 8.3 MG/DL (8.5-10.1) Phosphorus Level 2.9 MG/DL (2.5-4.9) Magnesium Level 2.0 MG/DL (1.8-2.4) Total Bilirubin 0.8 MG/DL (0.2-1.0) Aspartate Amino Transf (AST/SGOT) 24 U/L (15-37) Alanine Aminotransferase (ALT/SGPT) 7 U/L (12-78) Alkaline Phosphatase 81 U/L (46-116) C-Reactive Protein, Quantitative 6.1 mg/dL (0.00-0.90) Total Protein 5.5 G/DL (6.4-8.2) Albumin 2.3 G/DL (3.4-5.0) Globulin 3.2 g/dL Albumin/Globulin Ratio 0.7 (1.0-2.7) Test 10/23/20 07:04 10/23/20 08:19 10/23/20 13:54 10/23/20 15:04 POC Whole Blood Glucose 87 MG/DL (74-106) 84 MG/DL (74-106) 103 MG/DL (74-106) Arterial Blood pH 7.297 (7.350-7.450) Arterial Blood Partial Pressure CO2 60.0 mmHg (35.0-45.0) Arterial Blood Partial Pressure O2 133.2 mmHg (75.0-100.0) Arterial Blood HCO3 28.7 mmol/L (22.0-26.0) Arterial Blood Base Excess 0.7 (-2-2) Gallo Test Positive Test 10/23/20 18:53 10/24/20 00:43 10/24/20 04:59 10/24/20 10:41 POC Whole Blood Glucose 97 MG/DL (74-106) 108 MG/DL (74-106) 97 MG/DL (74-106) Arterial Blood pH 7.295 (7.350-7.450) Arterial Blood Partial Pressure CO2 59.0 mmHg (35.0-45.0) Arterial Blood Partial Pressure O2 135.6 mmHg (75.0-100.0) Arterial Blood HCO3 28.1 mmol/L (22.0-26.0) Arterial Blood Oxygen Saturation 98.3 % (95-100) Arterial Blood Base Excess 0.9 (-2-2) Gallo Test Positive Test 10/24/20 12:15 10/24/20 16:18 10/25/20 00:43 10/25/20 08:45 POC Whole Blood Glucose 106 MG/DL (74-106) 109 MG/DL (74-106) 121 MG/DL (74-106) White Blood Count 6.8 K/UL (4.8-10.8) Red Blood Count 3.39 M/UL (4.20-5.40) Hemoglobin 10.2 G/DL (12.0-16.0) Hematocrit 32.8 % (37.0-47.0) Mean Corpuscular Volume 97 FL (80-99) Mean Corpuscular Hemoglobin 29.9 PG (27.0-31.0) Mean Corpuscular Hemoglobin Concent 31.0 G/DL (32.0-36.0) Red Cell Distribution Width 18.9 % (11.6-14.8) Platelet Count 148 K/UL (150-450) Mean Platelet Volume 8.3 FL (6.5-10.1) Neutrophils (%) (Auto) % (45.0-75.0) Lymphocytes (%) (Auto) % (20.0-45.0) Monocytes (%) (Auto) % (1.0-10.0) Eosinophils (%) (Auto) % (0.0-3.0) Basophils (%) (Auto) % (0.0-2.0) Differential Total Cells Counted 100 Neutrophils % (Manual) 72 % (45-75) Lymphocytes % (Manual) 14 % (20-45) Monocytes % (Manual) 6 % (1-10) Eosinophils % (Manual) 0 % (0-3) Basophils % (Manual) 0 % (0-2) Band Neutrophils 8 % (0-8) Platelet Estimate Decreased Platelet Morphology Normal Anisocytosis 1+ Sodium Level 137 MMOL/L (136-145) Potassium Level 3.9 MMOL/L (3.5-5.1) Chloride Level 103 MMOL/L (98-107) Carbon Dioxide Level 28 MMOL/L (21-32) Anion Gap 6 mmol/L (5-15) Blood Urea Nitrogen 36 mg/dL (7-18) Creatinine 2.1 MG/DL (0.55-1.30) Estimat Glomerular Filtration Rate 22.5 mL/min (>60) Glucose Level 149 MG/DL (74-106) Calcium Level 7.8 MG/DL (8.5-10.1) Phosphorus Level 3.0 MG/DL (2.5-4.9) Magnesium Level 1.9 MG/DL (1.8-2.4) Total Bilirubin 0.5 MG/DL (0.2-1.0) Aspartate Amino Transf (AST/SGOT) 11 U/L (15-37) Alanine Aminotransferase (ALT/SGPT) 7 U/L (12-78) Alkaline Phosphatase 86 U/L (46-116) C-Reactive Protein, Quantitative 4.4 mg/dL (0.00-0.90) Pro-B-Type Natriuretic Peptide > 88966 pg/mL (0-125) Total Protein 5.5 G/DL (6.4-8.2) Albumin 2.3 G/DL (3.4-5.0) Globulin 3.2 g/dL Albumin/Globulin Ratio 0.7 (1.0-2.7) Height (Feet): 5 Height (Inches): 0.00 Weight (Pounds): 145 Objective Physical Exam General: Awake and alert, no acute distress HEENT: NC/AT. EOMI. Cardiovascular: Irregularly irregular rhythm. Normal heart rate Resp: Normal work of breathing. No cough, wheezing or crackles appreciated Abdomen: Abdomen is soft, nondistended. Nontender Skin: Intact. No abrasions, laceration or rash over the exposed skin MSK: Normal tone and bulk. Moving all extremities. No obvious deformity. Neuro: Awake and alert. Mentating appropriately. Hawk Ma MD Oct 25, 2020 11:43
--- NOTE | 2020-10-25 12:00 | Nephrology Progress Note ---
Assessment/Plan Problem List: (1) Acute kidney injury (2) Anemia (3) Hyperkalemia (4) Elevated troponin (5) Pneumonia due to COVID-19 virus (6) Hypothyroidism Assessment Plan October 25: Patient seen and examined. Trendelenburg. Blood pressure low. Tachycardic. Discussed with RN. Patient to be transferred to ICU. Discussed with ICU charge nurse and hospital charge nurse. Meanwhile patient started on Albumin bolus and 100 cc an hour D5 normal saline. Patient to be started on pressors while in ICU. Patient full code. October 24: No CHEM panel drawn today.. Renal parameters stable. Patient had a GT placed yesterday. Will check labs tomorrow. Medication list reviewed. October 23: Labs reviewed. Renal parameters unchanged. Creatinine 1.9. Continue current management. Medication list reviewed. October 22: Labs reviewed. Serum creatinine lower at 1.8. Patient started on clear liquid. Patient refuses p.o. medications and food at times. Continue per consultants. October 21: Labs reviewed. Serum creatinine unchanged. Continue per consult ants. Continue to monitor renal parameters. October 20: Today's labs reviewed. Serum creatinine unchanged. RN reports patient not taking any p.o. meds. Continue per consultants. Serum creatinine appears to be baseline. October 19: Today's labs still not done yet. RN informed. Albumin bolus given again. Continue to monitor electrolytes and renal parameters. Per orders October 18: Patient hypotensive. Due for blood transfusion. Will give albumin bolus. Continue to monitor renal parameters and electrolytes. Labs and medication list reviewed Subjective ROS Limited/Unobtainable: Yes Objective Objective Last 24 Hour Vital Signs Date Time Temp Pulse Resp B/P (MAP) Pulse Ox O2 Delivery O2 Flow Rate FiO2 10/25/20 09:00 125 75/33 10/25/20 08:00 119 10/25/20 07:59 97.9 20 77/36 (50) 10/25/20 04:00 97.4 86 20 123/62 (82) 95 10/25/20 04:00 131 10/25/20 00:00 97.7 88 16 134/95 (108) 95 10/24/20 21:00 Nasal Cannula 2.0 10/24/20 21:00 97.7 64 16 114/66 (82) 100 10/24/20 21:00 64 114/66 10/24/20 20:00 89 10/24/20 20:00 97.7 64 16 114/66 (82) 100 10/24/20 16:00 98.0 78 20 93/74 (80) 99 10/24/20 16:00 93 10/24/20 12:00 81 10/24/20 12:00 98.3 71 20 94/54 (67) 99 Intake and Output 10/24/20 10/25/20 19:00 07:00 Output Total 250 ml Balance -250 ml Output Urine Total 250 ml # Bowel Movements 1 1 Current Medications Medications (Trade) Dose Ordered Sig/Yolanda Route PRN Reason Start Time Stop Time Status Last Admin Dose Admin Acetaminophen (Tylenol) 500 mg Q6HR PRN ORAL Mild Pain 1-3 10/17/20 17:45 11/16/20 17:44 Acetaminophen (Tylenol) 500 mg Q6HR PRN ORAL fever >100 10/17/20 18:00 11/16/20 17:59 Acetaminophen (Tylenol) 650 mg Q4H PRN ORAL Pain Scale (6-10) 10/17/20 19:15 11/16/20 19:14 Albumin Human 500 ml @ 0 mls/hr Q0M IV 10/25/20 11:15 10/25/20 12:15 Apixaban (Eliquis) 2.5 mg BID ORAL 10/24/20 18:00 01/22/21 17:59 10/24/20 17:52 Chlorhexidine Gluconate (Eve-Hex 2%) 1 applic DAILY@2000 TOPIC 10/22/20 20:00 01/20/21 19:59 10/24/20 20:22 Dextrose/Sodium Chloride 1,000 ml @ 50 mls/hr Q20H IV 10/17/20 18:45 11/16/20 18:44 10/24/20 10:59 Docusate Sodium (Colace) 100 mg EVERY 8 HOURS ORAL 10/23/20 14:00 11/17/20 08:59 10/24/20 14:02 Famotidine (Pepcid) 20 mg DAILY ORAL 10/18/20 09:00 01/16/21 08:59 10/25/20 08:14 Levothyroxine Sodium (Synthroid) 50 mcg DAILY@0630 ORAL 10/19/20 06:30 11/18/20 06:29 10/25/20 07:44 Lidocaine/ Epinephrine (Lidocaine/ Epinephrine 2%) 20 ml ONCE PRN INJ for central line placement 10/25/20 10:00 10/26/20 09:59 Metoprolol Tartrate (Lopressor) 25 mg EVERY 12 HOURS ORAL 10/19/20 21:00 01/17/21 20:59 10/23/20 21:05 Midodrine (Pro-Amatine) 10 mg Q8HR ORAL 10/18/20 14:00 01/16/21 13:59 10/25/20 07:45 Ondansetron HCl (Zofran) 4 mg Q6H PRN IVP Nausea & Vomiting 10/17/20 21:15 11/16/20 21:14 Pantoprazole (Protonix) 40 mg DAILY IVP 10/23/20 09:00 11/22/20 08:59 10/24/20 09:55 Sodium Chloride 1,000 ml @ 125 mls/hr Q8H IV 10/25/20 11:30 11/24/20 11:29 Laboratory Tests 10/24/20 12:15: POC Whole Blood Glucose 106 10/24/20 16:18: POC Whole Blood Glucose 109H 10/25/20 00:43: POC Whole Blood Glucose 121H 10/25/20 08:45: White Blood Count 6.8, Red Blood Count 3.39L, Hemoglobin 10.2L, Hematocrit 32.8L , Mean Corpuscular Volume 97, Mean Corpuscular Hemoglobin 29.9, Mean Corpuscular Hemoglobin Concent 31.0L, Red Cell Distribution Width 18.9H, Platelet Count 148L , Mean Platelet Volume 8.3, Neutrophils (%) (Auto) , Lymphocytes (%) (Auto) , Monocytes (%) (Auto) , Eosinophils (%) (Auto) , Basophils (%) (Auto) , Differential Total Cells Counted 100, Neutrophils % (Manual) 72, Lymphocytes % (Manual) 14L, Monocytes % (Manual) 6, Eosinophils % (Manual) 0, Basophils % (Manual) 0, Band Neutrophils 8, Platelet Estimate DecreasedL, Platelet Morphology Normal, Anisocytosis 1+, Sodium Level 137, Potassium Level 3.9, Chloride Level 103, Carbon Dioxide Level 28, Anion Gap 6, Blood Urea Nitrogen 36H, Creatinine 2.1H, Estimat Glomerular Filtration Rate 22.5, Glucose Level 149H, Calcium Level 7.8L, Phosphorus Level 3.0, Magnesium Level 1.9, Total Bilirubin 0.5, Aspartate Amino Transf (AST/SGOT) 11L, Alanine Aminotransferase (ALT/SGPT) 7L, Alkaline Phosphatase 86, C-Reactive Protein, Quantitative 4.4H, Pro-B-Type Natriuretic Peptide > [id number], Total Protein 5.5L, Albumin 2.3L, Globulin 3.2, Albumin/Globulin Ratio 0.7L Height (Feet): 5 Height (Inches): 0.00 Weight (Pounds): 145 General Appearance: lethargic Cardiovascular: tachycardia Respiratory/Chest: decreased breath sounds Abdomen: distended Dustin Gómez MD Oct 25, 2020 11:59
--- NOTE | 2020-10-25 14:07 | Cardiac Electrophysiology PN ---
Assessment/Plan Assessment/Plan 1. Non-ST elevation myocardial infarction with elevated troponin of more than 0.2. The level has come down to 0.19, but the levels are flat and likely due to renal failure as the creatinine is 2.1. On aspirin and DC Lopressor as BP now in 70s 2. Atrial fibrillation with rapid ventricular response. DC Lopressor as BP in 70s. On Eliquis 2.5 bid 3. Questionable bradycardia. The heart rate has been in the 80s and 90s. It is possible that they could not record the heart beat in view of the patient's atrial fibrillation. 4. History of previous non-ST elevation myocardial infarction. 5. Renal insufficiency.Cr still 2.1 6. Status post COVID pneumonia, was tested positive more than two weeks ago 7. Dysphagia, S/P PEG 10/23/20 8. Septic shock. BP in 70s. DC Lopressor. Got 1 liter of NS. Got central line. Transfer to ICU Start Levophed 9. Full code. DW Dr Gómez and Julia Subjective Subjective In Covid isolation. Atrial fib rate controlled in 80s S/P PEG by Dr Tobar 10/23/20 BP dropped to 70-s today and underwent central line placement. BP still 70s despite [address] Gómez. Transferring to ICU per my order Objective Last 24 Hour Vital Signs Date Time Temp Pulse Resp B/P (MAP) Pulse Ox O2 Delivery O2 Flow Rate FiO2 10/25/20 12:00 97.9 20 95/47 (63) 10/25/20 09:00 Nasal Cannula 2.0 10/25/20 09:00 125 75/33 10/25/20 08:00 119 10/25/20 07:59 97.9 20 77/36 (50) 10/25/20 04:00 97.4 86 20 123/62 (82) 95 10/25/20 04:00 131 10/25/20 00:00 97.7 88 16 134/95 (108) 95 10/24/20 21:00 Nasal Cannula 2.0 10/24/20 21:00 97.7 64 16 114/66 (82) 100 10/24/20 21:00 64 114/66 10/24/20 20:00 89 10/24/20 20:00 97.7 64 16 114/66 (82) 100 2/27/21 16:00 98.0 78 20 93/74 (80) 99 10/24/20 16:00 93 Intake and Output 10/24/20 10/25/20 19:00 07:00 Output Total 250 ml Balance -250 ml Output Urine Total 250 ml # Bowel Movements 1 1 Laboratory Tests Test 10/24/20 16:18 10/25/20 00:43 10/25/20 08:45 10/25/20 12:31 POC Whole Blood Glucose 109 MG/DL (74-106) H 121 MG/DL (74-106) H White Blood Count 6.8 K/UL (4.8-10.8) Red Blood Count 3.39 M/UL (4.20-5.40) L Hemoglobin 10.2 G/DL (12.0-16.0) L Hematocrit 32.8 % (37.0-47.0) L Mean Corpuscular Volume 97 FL (80-99) Mean Corpuscular Hemoglobin 29.9 PG (27.0-31.0) Mean Corpuscular Hemoglobin Concent 31.0 G/DL (32.0-36.0) L Red Cell Distribution Width 18.9 % (11.6-14.8) H Platelet Count 148 K/UL (150-450) L Mean Platelet Volume 8.3 FL (6.5-10.1) Neutrophils (%) (Auto) % (45.0-75.0) Lymphocytes (%) (Auto) % (20.0-45.0) Monocytes (%) (Auto) % (1.0-10.0) Eosinophils (%) (Auto) % (0.0-3.0) Basophils (%) (Auto) % (0.0-2.0) Differential Total Cells Counted 100 Neutrophils % (Manual) 72 % (45-75) Lymphocytes % (Manual) 14 % (20-45) L Monocytes % (Manual) 6 % (1-10) Eosinophils % (Manual) 0 % (0-3) Basophils % (Manual) 0 % (0-2) Band Neutrophils 8 % (0-8) Platelet Estimate Decreased L Platelet Morphology Normal Anisocytosis 1+ Sodium Level 137 MMOL/L (136-145) Potassium Level 3.9 MMOL/L (3.5-5.1) Chloride Level 103 MMOL/L (98-107) Carbon Dioxide Level 28 MMOL/L (21-32) Anion Gap 6 mmol/L (5-15) Blood Urea Nitrogen 36 mg/dL (7-18) H Creatinine 2.1 MG/DL (0.55-1.30) H Estimat Glomerular Filtration Rate 22.5 mL/min (>60) Glucose Level 149 MG/DL (74-106) H Calcium Level 7.8 MG/DL (8.5-10.1) L Phosphorus Level 3.0 MG/DL (2.5-4.9) Magnesium Level 1.9 MG/DL (1.8-2.4) Total Bilirubin 0.5 MG/DL (0.2-1.0) Aspartate Amino Transf (AST/SGOT) 11 U/L (15-37) L Alanine Aminotransferase (ALT/SGPT) 7 U/L (12-78) L Alkaline Phosphatase 86 U/L (46-116) C-Reactive Protein, Quantitative 4.4 mg/dL (0.00-0.90) H Pro-B-Type Natriuretic Peptide > 06362 pg/mL (0-125) H Total Protein 5.5 G/DL (6.4-8.2) L Albumin 2.3 G/DL (3.4-5.0) L Globulin 3.2 g/dL Albumin/Globulin Ratio 0.7 (1.0-2.7) L Arterial Blood pH 7.240 (7.350-7.450) Arterial Blood Partial Pressure CO2 62.7 mmHg (35.0-45.0) *H Arterial Blood Partial Pressure O2 150.2 mmHg (75.0-100.0) H Arterial Blood HCO3 26.3 mmol/L (22.0-26.0) H Arterial Blood Oxygen Saturation 98.4 % (95-100) Arterial Blood Base Excess -1.6 (-2-2) Gallo Test Positive Test 10/25/20 13:28 POC Whole Blood Glucose 148 MG/DL (74-106) H Objective HEAD AND NECK: No JVD. LUNGS: Decreased breath sounds. CARDIOVASCULAR: Irregular S1 and S2 with no gallop. ABDOMEN: Soft.S/P PEG EXTREMITIES: No pitting edema. Terry Reyes MD Oct 25, 2020 14:07
--- NOTE | 2020-10-25 14:29 | NUR ---
NURSE NOTES: Received report from Baljit HILL.
[2020-10-25] MEDS: D5NS 1,000 ML IV SCH ×2 (14:42→21:34)
--- NOTE | 2020-10-25 15:44 | NUR ---
PT Note Patient has been transferred to ICU. Will DC physical therapy; resume when patient's condition improves and new orders are received.
--- NOTE | 2020-10-25 16:17 | NUR ---
NURSE NOTES: Pt. B/P at present 96/58. On Oxygen at 2LPM via NC and O2 sat at 98%. No s/sx of distress. No grimacing noted. Right femoral TLC in placed patent/intact. GTF on hold due to pt. on supine position at present. F/C in placed patent/intact draining miko colored urine. Bed in low position, locked. Bed alarm on. Call light within reach. Will cont. to monitor.
--- NOTE | 2020-10-25 17:02 | NUR ---
NURSE NOTES: Pt. PCR test result came back negative for Covid19.
[2020-10-25] MEDS: Docusate 100mg/10ml Liq GT SCH (18:00)
--- NOTE | 2020-10-25 18:09 | Diagnostic Imaging Report ---
EXAM: US Duplex Left Upper Extremity Veins CLINICAL HISTORY: DVT TECHNIQUE: Real-time duplex ultrasound scan of the left upper extremity veins integrating B-mode two-dimensional vascular structure, Doppler spectral analysis, color flow Doppler imaging and compression. COMPARISON: No previous studies for comparison. FINDINGS: Deep veins: Imaging of the left upper extremity deep venous system reveals no deep venous thrombosis. Superficial veins: Unremarkable. No thrombus in the visualized basilic and cephalic veins. Soft tissues: There is diffuse soft tissue edema throughout the left upper extremity. IMPRESSION: 1. No deep venous thrombosis left upper extremity deep venous system. 2. Diffuse subcutaneous edema.
--- NOTE | 2020-10-25 18:35 | General Progress Note ---
Subjective Allergies: Coded Allergies: No Known Allergies (Unverified , 10/17/20) Subjective above noted seen earlier today was hypotensive with no IV access orders for GT NS bolus given Objective Last 24 Hour Vital Signs Date Time Temp Pulse Resp B/P (MAP) Pulse Ox O2 Delivery O2 Flow Rate FiO2 10/25/20 16:00 93 10/25/20 16:00 94 24 96/58 (71) 98 10/25/20 15:00 85 20 72/39 (50) 96 10/25/20 12:00 98 10/25/20 12:00 97.9 20 95/47 (63) 10/25/20 09:00 Nasal Cannula 2.0 10/25/20 09:00 125 75/33 10/25/20 08:00 119 10/25/20 07:59 97.9 20 77/36 (50) 10/25/20 04:00 97.4 86 20 123/62 (82) 95 10/25/20 04:00 131 10/25/20 00:00 97.7 88 16 134/95 (108) 95 10/24/20 21:00 Nasal Cannula 2.0 10/24/20 21:00 97.7 64 16 114/66 (82) 100 10/24/20 21:00 64 114/66 10/24/20 20:00 89 10/24/20 20:00 97.7 64 16 114/66 (82) 100 Intake and Output 10/24/20 10/25/20 19:00 07:00 Output Total 250 ml Balance -250 ml Output Urine Total 250 ml # Bowel Movements 1 1 Laboratory Tests 10/25/20 00:43: POC Whole Blood Glucose 121H 10/25/20 08:45: White Blood Count 6.8, Red Blood Count 3.39L, Hemoglobin 10.2L, Hematocrit 32.8L , Mean Corpuscular Volume 97, Mean Corpuscular Hemoglobin 29.9, Mean Corpuscular Hemoglobin Concent 31.0L, Red Cell Distribution Width 18.9H, Platelet Count 148L , Mean Platelet Volume 8.3, Neutrophils (%) (Auto) , Lymphocytes (%) (Auto) , Monocytes (%) (Auto) , Eosinophils (%) (Auto) , Basophils (%) (Auto) , Differential Total Cells Counted 100, Neutrophils % (Manual) 72, Lymphocytes % ( Manual) 14L, Monocytes % (Manual) 6, Eosinophils % (Manual) 0, Basophils % (Manual) 0, Band Neutrophils 8, Platelet Estimate DecreasedL, Platelet Morphology Normal, Anisocytosis 1+, Sodium Level 137, Potassium Level 3.9, Chlo ride Level 103, Carbon Dioxide Level 28, Anion Gap 6, Blood Urea Nitrogen 36H, Creatinine 2.1H, Estimat Glomerular Filtration Rate 22.5, Glucose Level 149H, Calcium Level 7.8L, Phosphorus Level 3.0, Magnesium Level 1.9, Total Bilirubin 0.5, Aspartate Amino Transf (AST/SGOT) 11L, Alanine Aminotransferase (ALT/SGPT) 7L, Alkaline Phosphatase 86, C-Reactive Protein, Quantitative 4.4H, Pro-B-Type Natriuretic Peptide > 65308P, Total Protein 5.5L, Albumin 2.3L, Globulin 3.2, Albumin/Globulin Ratio 0.7L 10/25/20 12:31: Arterial Blood pH 7.240*L, Arterial Blood Partial Pressure CO2 62.7*H, Arterial Blood Partial Pressure O2 150.2H, Arterial Blood HCO3 26.3H, Arterial Blood Oxygen Saturation 98.4, Arterial Blood Base Excess -1.6, Gallo Test Positive 10/25/20 13:28: POC Whole Blood Glucose 148H Height (Feet): 5 Height (Inches): 0.00 Weight (Pounds): 145 Objective Obese woman NCAT supple CTA RR abd soft obese (+) PEG no edema Assessment/Plan Status: progressing Assessment/Plan: Assessment - dysphagia - s/p PEG - anemia - OB (+) stools - hypotension Recommendations - IV acces - IV fluid - Hold TF until stable - monitor H&H - GT care Clare Cook MD Oct 25, 2020 18:35
--- NOTE | 2020-10-25 18:37 | NUR ---
NURSE NOTES: Held Eliquis s/p TLC femoral insertion.
--- NOTE | 2020-10-25 19:00 | NUR ---
NURSE NOTES: Received patient from SERGIO Holland. patient is in bed sleeping. afib on the monitor, controlled. nasal cannula 2L, saturation 99%. Gtube in place and tube feeding on hold due to supine position. RIGHT femoral TLC in place running NS @125 and levophed started by AM shift at change of shift @4mcg/hr. bed to lowest position and locked. call light within easy reach. side rails up x2. will continue plan of care.
[2020-10-25] MEDS: Norepinephrine 4mg/NS Premix 250 ML IV SCH (19:14)
--- NOTE | 2020-10-25 19:15 | NUR ---
NURSE HAND-OFF REPORT: Latest Vital Signs: Temperature 97.9 , Pulse 93 , B/P 76 /58 , Respiratory Rate 24 , O2 SAT 98 , Simple Mask, O2 Flow Rate 2.0 . Vital Sign Comment: [] EKG Rhythm: A-fib w/ RVR Rhythm change?: N MD Notified?: - MD Response: Latest Elizabeth Fall Score: 70 Fall Risk: High Risk Safety Measures: Call light Within Reach, Bed Alarm Zone 1, Side Rails Side Rails x3, Bed position Low and Locked. Fall Precautions: Yellow Socks Patient Fall Education Report given to Bud HILL.
[2020-10-25] MEDS: Dyna-Hex 2% Top Sol 2oz TOPIC SCH (20:47)
--- NOTE | 2020-10-25 20:57 | General Progress Note ---
Subjective ROS Limited/Unobtainable: Yes Allergies: Coded Allergies: No Known Allergies (Unverified , 10/17/20) Objective Last 24 Hour Vital Signs Date Time Temp Pulse Resp B/P (MAP) Pulse Ox O2 Delivery O2 Flow Rate FiO2 10/25/20 20:30 98 24 102/55 (71) 99 10/25/20 20:00 97.5 86 16 98/46 (63) 92 10/25/20 20:00 85 10/25/20 19:30 80 18 89/45 (60) 97 10/25/20 19:14 76/58 10/25/20 19:00 80 18 75/34 (48) 94 10/25/20 16:00 93 10/25/20 16:00 94 24 96/58 (71) 98 10/25/20 15:00 85 20 72/39 (50) 96 10/25/20 12:00 98 10/25/20 12:00 97.9 20 95/47 (63) 10/25/20 09:00 Nasal Cannula 2.0 10/25/20 09:00 125 75/33 10/25/20 08:00 119 10/25/20 07:59 97.9 20 77/36 (50) 10/25/20 04:00 97.4 86 20 123/62 (82) 95 10/25/20 04:00 131 10/25/20 00:00 97.7 88 16 134/95 (108) 95 10/24/20 21:00 Nasal Cannula 2.0 10/24/20 21:00 97.7 64 16 114/66 (82) 100 10/24/20 21:00 64 114/66 Intake and Output 10/24/20 10/25/20 19:00 07:00 Output Total 250 ml Balance -250 ml Output Urine Total 250 ml # Bowel Movements 1 1 Laboratory Tests 10/25/20 00:43: POC Whole Blood Glucose 121H 10/25/20 08:45: White Blood Count 6.8, Red Blood Count 3.39L, Hemoglobin 10.2L, Hematocrit 32.8L , Mean Corpuscular Volume 97, Mean Corpuscular Hemoglobin 29.9, Mean Corpuscular Hemoglobin Concent 31.0L, Red Cell Distribution Width 18.9H, Platelet Count 148L , Mean Platelet Volume 8.3, Neutrophils (%) (Auto) , Lymphocytes (%) (Auto) , Monocytes (%) (Auto) , Eosinophils (%) (Auto) , Basophils (%) (Auto) , Differential Total Cells Counted 100, Neutrophils % (Manual) 72, Lymphocytes % (Manual) 14L, Monocytes % (Manual) 6, Eosinophils % (Manual) 0, Basophils % (Manual) 0, Band Neutrophils 8, Platelet Estimate DecreasedL, Platelet Morph ology Normal, Anisocytosis 1+, Sodium Level 137, Potassium Level 3.9, Chloride Level 103, Carbon Dioxide Level 28, Anion Gap 6, Blood Urea Nitrogen 36H, Creatinine 2.1H, Estimat Glomerular Filtration Rate 22.5, Glucose Level 149H, Calcium Level 7.8L, Phosphorus Level 3.0, Magnesium Level 1.9, Total Bilirubin 0.5, Aspartate Amino Transf (AST/SGOT) 11L, Alanine Aminotransferase (ALT/SGPT) 7L, Alkaline Phosphatase 86, C-Reactive Protein, Quantitative 4.4H, Pro-B-Type Natriuretic Peptide > 96948V, Total Protein 5.5L, Albumin 2.3L, Globulin 3.2, Albumin/Globulin Ratio 0.7L 10/25/20 12:31: Arterial Blood pH 7.240*L, Arterial Blood Partial Pressure CO2 62.7*H, Arterial Blood Partial Pressure O2 150.2H, Arterial Blood HCO3 26.3H, Arterial Blood Oxygen Saturation 98.4, Arterial Blood Base Excess -1.6, Gallo Test Positive 10/25/20 13:28: POC Whole Blood Glucose 148H Height (Feet): 5 Height (Inches): 0.00 Weight (Pounds): 145 Assessment/Plan Problem List: (1) Anemia ICD Codes: D64.9 - Anemia, unspecified SNOMED: 193037714 (2) Acute kidney injury ICD Codes: N17.9 - Acute kidney failure, unspecified SNOMED: 84888061, 0052860 (3) Atrial fibrillation ICD Codes: I48.91 - Unspecified atrial fibrillation SNOMED: 92552568 (4) Elevated troponin ICD Codes: R77.8 - Other specified abnormalities of plasma proteins SNOMED: 149144281, 466311786, 582989553 (5) Malnutrition ICD Codes: E46 - Unspecified protein-calorie malnutrition SNOMED: 56265881 (6) Pneumonia due to COVID-19 virus ICD Codes: U07.1 - COVID-19; J12.82 - Pneumonia due to coronavirus disease 2019 SNOMED: 451286391670671773 (7) Hypothyroidism ICD Codes: E03.9 - Hypothyroidism, unspecified SNOMED: 28394616 Status: progressing Assessment/Plan: hypotensive asked dr sanchez to place central line afebrile transfer to icu a fib w rvr azotemia covid + arrythmia afebrile Neri Dumont MD Oct 25, 2020 20:57
[2020-10-26] VITALS (39 sets, daily range): BP systolic 66–160; BP diastolic 30–124
[2020-10-26] MEDS: Norepinephrine 4mg/NS Premix 250 ML IV SCH (04:53)
--- NOTE | 2020-10-26 05:03 | NUR ---
NURSE NOTES: bed bath performed. no BM.
[2020-10-26] MEDS: Midodrine 10mg tab ORAL SCH (05:08)
[2020-10-26 05:27] LABS: HEMOGLOBIN 9.1 G/DL (12.0-16.0); MEAN CORPUSCULAR VOLUME 100 FL (80-99); PLATELET COUNT 176 K/UL (150-450); RED BLOOD COUNT 3.02 M/UL (4.20-5.40); RED CELL DISTRIBUTION WIDTH 19.9 % (11.6-14.8); WHITE BLOOD COUNT 8.2 K/UL (4.8-10.8)
[2020-10-26 05:44] LABS: ALANINE AMINOTRANSFERASE < 6 U/L (12-78); ALBUMIN 2.6 G/DL (3.4-5.0); ALBUMIN/GLOBULIN RATIO 0.9 (1.0-2.7); ALKALINE PHOSPHATASE 85 U/L (46-116); ANION GAP 7 mmol/L (5-15); ASPARTATE AMINO TRANSFERASE 9 U/L (15-37); BILIRUBIN,TOTAL 0.4 MG/DL (0.2-1.0); BLOOD UREA NITROGEN 33 mg/dL (7-18); CALCIUM 7.6 MG/DL (8.5-10.1); CARBON DIOXIDE 26 MMOL/L (21-32); CHLORIDE 102 MMOL/L (98-107); CREATININE 2.1 MG/DL (0.55-1.30); PHOSPHORUS 4.2 MG/DL (2.5-4.9); POTASSIUM 3.8 MMOL/L (3.5-5.1); SODIUM 135 MMOL/L (136-145)
--- NOTE | 2020-10-26 06:32 | Hematology/Onc Progress Note ---
Assessment/Plan Assessment/Plan Assessment and recs # Anemia r/o gi bleed --> anemia panel has been ordered-->reviewed --> hgb 8.1->9.3->9.7-->9.5-->10.5-->10.2-->9.1 --> no hemolysis is noted --> transfuse on prn basis # Thrombocytopenia likely due to reactive process --> plt 138-->149-->176 --> imaging prn --> viral w/u neg # Hypercoag disorder with Atrial fibrillation --> consider anticoag as per cards --> if bleeding, consider hold anticoag # Elevated trop --> per cards # Hyperkalemia --> per renal # Acute kidney injury --> per renal # Recently COVID-19 positive # Dvt ppx scds --> lovenox sq Appreciate consultation and rosio eugene Subjective Allergies: Coded Allergies: No Known Allergies (Unverified , 10/17/20) All Systems: reviewed and negative except above Subjective 10/19 cbc is pending, did get blood transfusion last night, pending results 10/20 meds noted, no bleeding, labs reviewed, rosio rn, no new changes 10/21 on 4l nc, has been refusing labs, meds noted, no bleeding 10/22 nc, refusing meds labs reviewed, rosio rn 10/23 is potentially for egd this am, no bleeding, cbc is noted 10/25 meds noted, no bleeidng, is on nc, no night sweats, bp bolus pending 10/26 bed bath done, meds noted, no bleeding, cbc reviewed from am Objective Objective Current Medications Medications (Trade) Dose Ordered Sig/Yolanda Route PRN Reason Start Time Stop Time Status Last Admin Dose Admin Acetaminophen (Tylenol) 500 mg Q6HR PRN ORAL Mild Pain 1-3 10/17/20 17:45 11/16/20 17:44 Acetaminophen (Tylenol) 500 mg Q6HR PRN ORAL fever >100 10/17/20 18:00 11/16/20 17:59 Acetaminophen (Tylenol) 650 mg Q4H PRN ORAL Pain Scale (6-10) 10/17/20 19:15 11/16/20 19:14 Apixaban (Eliquis) 2.5 mg BID ORAL 10/24/20 18:00 01/22/21 17:59 10/24/20 17:52 Chlorhexidine Gluconate (Eve-Hex 2%) 1 applic DAILY@2000 TOPIC 10/22/20 20:00 01/20/21 19:59 10/25/20 20:47 Dextrose/Sodium Chloride 1,000 ml @ 100 mls/hr Q10H IV 10/25/20 12:00 11/24/20 11:59 10/25/20 21:34 Docusate Sodium (Colace) 10 mg THREE TIMES A DAY GT 10/25/20 18:00 11/24/20 17:59 Famotidine (Pepcid) 20 mg DAILY ORAL 10/18/20 09:00 01/16/21 08:59 10/25/20 08:14 Levothyroxine Sodium (Synthroid) 50 mcg DAILY@0630 ORAL 10/19/20 06:30 11/18/20 06:29 10/25/20 07:44 Lidocaine/ Epinephrine (Lidocaine/ Epinephrine 2%) 20 ml ONCE PRN INJ for central line placement 10/25/20 10:00 10/26/20 09:59 Midodrine (Pro-Amatine) 10 mg Q8HR ORAL 10/18/20 14:00 01/16/21 13:59 10/26/20 05:08 Norepinephrine Bitartrate 250 ml @ 0 mls/hr Q24H IV 10/25/20 15:15 10/28/20 15:02 10/26/20 04:53 Ondansetron HCl (Zofran) 4 mg Q6H PRN IVP Nausea & Vomiting 10/17/20 21:15 11/16/20 21:14 Pantoprazole (Protonix) 40 mg DAILY IVP 10/23/20 09:00 11/22/20 08:59 10/24/20 09:55 Sodium Chloride 1,000 ml @ 125 mls/hr Q8H IV 10/25/20 11:30 11/24/20 11:29 10/25/20 12:02 Last 24 Hour Vital Signs Date Time Temp Pulse Resp B/P (MAP) Pulse Ox O2 Delivery O2 Flow Rate FiO2 10/26/20 06:00 115 24 97/69 (78) 87 10/26/20 05:30 109 20 99/57 (71) 94 3/1/21 05:00 98 17 81/47 (58) 99 10/26/20 04:53 110/93 10/26/20 04:30 108 22 100/57 (71) 100 10/26/20 04:00 97.5 99 16 95/42 (59) 100 10/26/20 04:00 91 10/26/20 03:30 93 16 91/50 (64) 100 10/26/20 03:00 88 17 88/44 (59) 100 10/26/20 02:30 95 16 91/43 (59) 100 10/26/20 02:00 87 16 71/33 (46) 100 10/26/20 01:45 94 16 85/34 (51) 100 10/26/20 01:30 93 16 88/45 (59) 100 10/26/20 01:00 110 21 103/51 (68) 96 10/26/20 00:30 96 22 98/45 (62) 99 10/26/20 00:00 97.6 95 21 107/49 (68) 100 10/26/20 00:00 99 10/25/20 23:30 100 21 99/53 (68) 100 10/25/20 23:00 100 24 107/74 (85) 100 10/25/20 22:30 97 23 94/45 (61) 98 10/25/20 22:00 84 17 91/41 (58) 99 10/25/20 21:30 85 17 85/41 (56) 95 10/25/20 21:00 Nasal Cannula 2.0 10/25/20 21:00 91 21 103/50 (67) 98 10/25/20 20:30 98 24 102/55 (71) 99 10/25/20 20:00 97.5 86 16 98/46 (63) 92 10/25/20 20:00 85 10/25/20 19:30 80 18 89/45 (60) 97 10/25/20 19:14 76/58 10/25/20 19:00 80 18 75/34 (48) 94 10/25/20 16:00 93 10/25/20 16:00 94 24 96/58 (71) 98 10/25/20 15:00 85 20 72/39 (50) 96 10/25/20 12:00 98 10/25/20 12:00 97.9 20 95/47 (63) 10/25/20 09:00 Nasal Cannula 2.0 10/25/20 09:00 125 75/33 10/25/20 08:00 119 10/25/20 07:59 97.9 20 77/36 (50) 10/25/20 04:00 97.4 86 20 123/62 (82) 95 10/25/20 04:00 131 10/25/20 00:00 97.7 88 16 134/95 (108) 95 10/24/20 21:00 Nasal Cannula 2.0 10/24/20 21:00 97.7 64 16 114/66 (82) 100 10/24/20 21:00 64 114/66 10/24/20 20:00 89 10/24/20 20:00 97.7 64 16 114/66 (82) 100 10/24/20 16:00 98.0 78 20 93/74 (80) 99 10/24/20 16:00 93 10/24/20 12:00 81 10/24/20 12:00 98.3 71 20 94/54 (67) 99 10/24/20 09:00 74 96/52 10/24/20 09:00 Nasal Cannula 2.0 10/24/20 08:00 98.1 74 20 96/52 (67) 100 10/24/20 08:00 72 Intake and Output 10/25/20 10/26/20 19:00 07:00 Intake Total 400 ml 1123.815 ml Output Total 120 ml 40 ml Balance 280 ml 1083.815 ml Free Water 120 ml IV Total 400 ml 1003.815 ml Output Urine Total 120 ml 40 ml Labs Test 10/23/20 07:04 10/23/20 08:19 10/23/20 13:54 10/23/20 15:04 POC Whole Blood Glucose 87 MG/DL (74-106) 84 MG/DL (74-106) 103 MG/DL (74-106) Arterial Blood pH 7.297 (7.350-7.450) Arterial Blood Partial Pressure CO2 60.0 mmHg (35.0-45.0) Arterial Blood Partial Pressure O2 133.2 mmHg (75.0-100.0) Arterial Blood HCO3 28.7 mmol/L (22.0-26.0) Arterial Blood Base Excess 0.7 (-2-2) Gallo Test Positive Test 10/23/20 18:53 10/24/20 00:43 10/24/20 04:59 10/24/20 10:41 POC Whole Blood Glucose 97 MG/DL (74-106) 108 MG/DL (74-106) 97 MG/DL (74-106) Arterial Blood pH 7.295 (7.350-7.450) Arterial Blood Partial Pressure CO2 59.0 mmHg (35.0-45.0) Arterial Blood Partial Pressure O2 135.6 mmHg (75.0-100.0) Arterial Blood HCO3 28.1 mmol/L (22.0-26.0) Arterial Blood Oxygen Saturation 98.3 % (95-100) Arterial Blood Base Excess 0.9 (-2-2) Gallo Test Positive Test 10/24/20 12:15 10/24/20 16:18 10/25/20 00:43 10/25/20 08:45 POC Whole Blood Glucose 106 MG/DL (74-106) 109 MG/DL (74-106) 121 MG/DL (74-106) White Blood Count 6.8 K/UL (4.8-10.8) Red Blood Count 3.39 M/UL (4.20-5.40) Hemoglobin 10.2 G/DL (12.0-16.0) Hematocrit 32.8 % (37.0-47.0) Mean Corpuscular Volume 97 FL (80-99) Mean Corpuscular Hemoglobin 29.9 PG (27.0-31.0) Mean Corpuscular Hemoglobin Concent 31.0 G/DL (32.0-36.0) Red Cell Distribution Width 18.9 % (11.6-14.8) Platelet Count 148 K/UL (150-450) Mean Platelet Volume 8.3 FL (6.5-10.1) Neutrophils (%) (Auto) % (45.0-75.0) Lymphocytes (%) (Auto) % (20.0-45.0) Monocytes (%) (Auto) % (1.0-10.0) Eosinophils (%) (Auto) % (0.0-3.0) Basophils (%) (Auto) % (0.0-2.0) Differential Total Cells Counted 100 Neutrophils % (Manual) 72 % (45-75) Lymphocytes % (Manual) 14 % (20-45) Monocytes % (Manual) 6 % (1-10) Eosinophils % (Manual) 0 % (0-3) Basophils % (Manual) 0 % (0-2) Band Neutrophils 8 % (0-8) Platelet Estimate Decreased Platelet Morphology Normal Anisocytosis 1+ Sodium Level 137 MMOL/L (136-145) Potassium Level 3.9 MMOL/L (3.5-5.1) Chloride Level 103 MMOL/L (98-107) Carbon Dioxide Level 28 MMOL/L (21-32) Anion Gap 6 mmol/L (5-15) Blood Urea Nitrogen 36 mg/dL (7-18) Creatinine 2.1 MG/DL (0.55-1.30) Estimat Glomerular Filtration Rate 22.5 mL/min (>60) Glucose Level 149 MG/DL (74-106) Calcium Level 7.8 MG/DL (8.5-10.1) Phosphorus Level 3.0 MG/DL (2.5-4.9) Magnesium Level 1.9 MG/DL (1.8-2.4) Total Bilirubin 0.5 MG/DL (0.2-1.0) Aspartate Amino Transf (AST/SGOT) 11 U/L (15-37) Alanine Aminotransferase (ALT/SGPT) 7 U/L (12-78) Alkaline Phosphatase 86 U/L (46-116) C-Reactive Protein, Quantitative 4.4 mg/dL (0.00-0.90) Pro-B-Type Natriuretic Peptide > 07984 pg/mL (0-125) Total Protein 5.5 G/DL (6.4-8.2) Albumin 2.3 G/DL (3.4-5.0) Globulin 3.2 g/dL Albumin/Globulin Ratio 0.7 (1.0-2.7) Test 10/25/20 12:31 10/25/20 13:28 10/26/20 04:33 Arterial Blood pH 7.240 (7.350-7.450) Arterial Blood Partial Pressure CO2 62.7 mmHg (35.0-45.0) Arterial Blood Partial Pressure O2 150.2 mmHg (75.0-100.0) Arterial Blood HCO3 26.3 mmol/L (22.0-26.0) Arterial Blood Oxygen Saturation 98.4 % (95-100) Arterial Blood Base Excess -1.6 (-2-2) Gallo Test Positive POC Whole Blood Glucose 148 MG/DL (74-106) White Blood Count 8.2 K/UL (4.8-10.8) Red Blood Count 3.02 M/UL (4.20-5.40) Hemoglobin 9.1 G/DL (12.0-16.0) Hematocrit 30.0 % (37.0-47.0) Mean Corpuscular Volume 100 FL (80-99) Mean Corpuscular Hemoglobin 30.1 PG (27.0-31.0) Mean Corpuscular Hemoglobin Concent 30.3 G/DL (32.0-36.0) Red Cell Distribution Width 19.9 % (11.6-14.8) Platelet Count 176 K/UL (150-450) Mean Platelet Volume 8.1 FL (6.5-10.1) Neutrophils (%) (Auto) % (45.0-75.0) Lymphocytes (%) (Auto) % (20.0-45.0) Monocytes (%) (Auto) % (1.0-10.0) Eosinophils (%) (Auto) % (0.0-3.0) Basophils (%) (Auto) % (0.0-2.0) Sodium Level 135 MMOL/L (136-145) Potassium Level 3.8 MMOL/L (3.5-5.1) Chloride Level 102 MMOL/L (98-107) Carbon Dioxide Level 26 MMOL/L (21-32) Anion Gap 7 mmol/L (5-15) Blood Urea Nitrogen 33 mg/dL (7-18) Creatinine 2.1 MG/DL (0.55-1.30) Estimat Glomerular Filtration Rate 22.5 mL/min (>60) Glucose Level 180 MG/DL (74-106) Lactic Acid Level 0.60 mmol/L (0.4-2.0) Uric Acid 8.2 MG/DL (2.6-7.2) Calcium Level 7.6 MG/DL (8.5-10.1) Phosphorus Level 4.2 MG/DL (2.5-4.9) Magnesium Level 2.1 MG/DL (1.8-2.4) Total Bilirubin 0.4 MG/DL (0.2-1.0) Aspartate Amino Transf (AST/SGOT) 9 U/L (15-37) Alanine Aminotransferase (ALT/SGPT) < 6 U/L (12-78) Alkaline Phosphatase 85 U/L (46-116) Troponin I 0.179 ng/mL (0.000-0.056) Total Protein 5.4 G/DL (6.4-8.2) Albumin 2.6 G/DL (3.4-5.0) Globulin 2.8 g/dL Albumin/Globulin Ratio 0.9 (1.0-2.7) Micro Microbiology Date/Time Source Procedure Growth Status 10/25/20 15:40 Nasopharynx SARS-CoV-2 Antigen (Rapid)(DIAZ) - Final Complete Height (Feet): 5 Height (Inches): 0.00 Weight (Pounds): 145 Objective Physical Exam General: Awake and alert, no acute distress HEENT: NC/AT. EOMI. Cardiovascular: Irregularly irregular rhythm. Normal heart rate Resp: Normal work of breathing. No cough, wheezing or crackles appreciated Abdomen: Abdomen is soft, nondistended. Nontender Skin: Intact. No abrasions, laceration or rash over the exposed skin MSK: Normal tone and bulk. Moving all extremities. No obvious deformity. Neuro: Awake and alert. Mentating appropriately. Hawk Ma MD Oct 26, 2020 06:32
--- NOTE | 2020-10-26 07:31 | NUR ---
NURSE HAND-OFF REPORT: Latest Vital Signs: Temperature 97.5 , Pulse 103 , B/P 82 /58 , Respiratory Rate 18 , O2 SAT 92 , Simple Mask, O2 Flow Rate 2.0 . Vital Sign Comment: [] EKG Rhythm: Atrial Fibrillation Rhythm change?: N MD Notified?: - MD Response: Latest Elizabeth Fall Score: 70 Fall Risk: High Risk Safety Measures: Call light Within Reach, Bed Alarm Zone 1, Side Rails Side Rails x3, Bed position Low and Locked. Fall Precautions: Yellow Socks Patient Fall Education Report given to SERGIO Daley.
--- NOTE | 2020-10-26 07:32 | NUR ---
NURSE NOTES: Received report from SERGIO Farrell. Patient in bed resting, A. fib with HR 97, Patient on 3L oxygen via NC, O2 sat 92% at this time, patient on supine position due to blood pressure. Right femoral TLC patent, intact, on Levophed 10mcg/min BP 88/46, titrate to 12 mcg/min, BP 105/48 at this time. IVF on D5 NS @ 100ml/h. Bed in lowest position, side rails upx3, call light within reach, bed alarm on, Will continue to monitor.
--- NOTE | 2020-10-26 08:04 | General Progress Note ---
Subjective ROS Limited/Unobtainable: No Allergies: Coded Allergies: No Known Allergies (Unverified , 10/17/20) Objective Last 24 Hour Vital Signs Date Time Temp Pulse Resp B/P (MAP) Pulse Ox O2 Delivery O2 Flow Rate FiO2 10/26/20 07:00 103 18 82/58 (66) 92 10/26/20 06:30 112 19 87/62 (70) 95 10/26/20 06:00 115 24 97/69 (78) 87 10/26/20 05:30 109 20 99/57 (71) 94 10/26/20 05:00 98 17 81/47 (58) 99 10/26/20 04:53 110/93 10/26/20 04:30 108 22 100/57 (71) 100 10/26/20 04:00 97.5 99 16 95/42 (59) 100 10/26/20 04:00 91 10/26/20 03:30 93 16 91/50 (64) 100 10/26/20 03:00 88 17 88/44 (59) 100 10/26/20 02:30 95 16 91/43 (59) 100 10/26/20 02:00 87 16 71/33 (46) 100 10/26/20 01:45 94 16 85/34 (51) 100 10/26/20 01:30 93 16 88/45 (59) 100 10/26/20 01:00 110 21 103/51 (68) 96 10/26/20 00:30 96 22 98/45 (62) 99 10/26/20 00:00 97.6 95 21 107/49 (68) 100 10/26/20 00:00 99 10/25/20 23:30 100 21 99/53 (68) 100 10/25/20 23:00 100 24 107/74 (85) 100 10/25/20 22:30 97 23 94/45 (61) 98 10/25/20 22:00 84 17 91/41 (58) 99 10/25/20 21:30 85 17 85/41 (56) 95 10/25/20 21:00 Nasal Cannula 2.0 10/25/20 21:00 91 21 103/50 (67) 98 10/25/20 20:30 98 24 102/55 (71) 99 10/25/20 20:00 97.5 86 16 98/46 (63) 92 10/25/20 20:00 85 10/25/20 19:30 80 18 89/45 (60) 97 10/25/20 19:14 76/58 10/25/20 19:00 80 18 75/34 (48) 94 10/25/20 16:00 93 10/25/20 16:00 94 24 96/58 (71) 98 10/25/20 15:00 85 20 72/39 (50) 96 10/25/20 12:00 98 10/25/20 12:00 97.9 20 95/47 (63) 10/25/20 09:00 Nasal Cannula 2.0 10/25/20 09:00 125 75/33 Intake and Output 10/25/20 10/26/20 19:00 07:00 Intake Total 400 ml 1324.815 ml Output Total 120 ml 40 ml Balance 280 ml 1284.815 ml Free Water 120 ml IV Total 400 ml 1204.815 ml Output Urine Total 120 ml 40 ml Laboratory Tests 10/25/20 08:45: White Blood Count 6.8, Red Blood Count 3.39L, Hemoglobin 10.2L, Hematocrit 32.8L , Mean Corpuscular Volume 97, Mean Corpuscular Hemoglobin 29.9, Mean Corpuscular Hemoglobin Concent 31.0L, Red Cell Distribution Width 18.9H, Platelet Count 148L , Mean Platelet Volume 8.3, Neutrophils (%) (Auto) , Lymphocytes (%) (Auto) , Monocytes (%) (Auto) , Eosinophils (%) (Auto) , Basophils (%) (Auto) , Differential Total Cells Counted 100, Neutrophils % (Manual) 72, Lymphocytes % (Manual) 14L, Monocytes % (Manual) 6, Eosinophils % (Manual) 0, Basophils % (Manual) 0, Band Neutrophils 8, Platelet Estimate DecreasedL, Platelet Morphology Normal, Anisocytosis 1+, Sodium Level 137, Potassium Level 3.9, Chloride Level 103, Carbon Dioxide Level 28, Anion Gap 6, Blood Urea Nitrogen 36H, Creatinine 2.1H, Estimat Glomerular Filtration Rate 22.5, Glucose Level 149H, Calcium Level 7.8L, Phosphorus Level 3.0, Magnesium Level 1.9, Total Bilirubin 0.5, Aspartate Amino Transf (AST/SGOT) 11L, Alanine Aminotransferase (ALT/SGPT) 7L, Alkaline Phosphatase 86, C-Reactive Protein, Quantitative 4.4H, Pro-B-Type Natriuretic Peptide > [id number], Total Protein 5.5L, Albumin 2.3L, Globulin 3.2, Albumin/Globulin Ratio 0.7L 10/25/20 12:31: Arterial Blood pH 7.240*L, Arterial Blood Partial Pressure CO2 62.7*H, Arterial Blood Partial Pressure O2 150.2H, Arterial Blood HCO3 26.3H, Arterial Blood Oxyg en Saturation 98.4, Arterial Blood Base Excess -1.6, Gallo Test Positive 10/25/20 13:28: POC Whole Blood Glucose 148H 10/26/20 02:04: POC Whole Blood Glucose 150H 10/26/20 04:33: White Blood Count 8.2, Red Blood Count 3.02L, Hemoglobin 9.1L, Hematocrit 30.0L, Mean Corpuscular Volume 100H, Mean Corpuscular Hemoglobin 30.1, Mean Corpuscular Hemoglobin Concent 30.3L, Red Cell Distribution Width 19.9H, Platelet Count 176, Mean Platelet Volume 8.1, Neutrophils (%) (Auto) , Lymphocytes (%) (Auto) , Monocytes (%) (Auto) , Eosinophils (%) (Auto) , Basophils (%) (Auto) , Neutrophils % (Manual) [Pending], Lymphocytes % (Manual) [Pending], Platelet Estimate [Pending], Platelet Morphology [Pending], Sodium Level 135L, Potassium Level 3.8, Chloride Level 102, Carbon Dioxide Level 26, Anion Gap 7, Blood Urea Nitrogen 33H, Creatinine 2.1H, Estimat Glomerular Filtration Rate 22.5, Glucose Level 180H, Lactic Acid Level 0.60, Uric Acid 8.2H, Calcium Level 7.6L, Phosphorus Level 4.2, Magnesium Level 2.1, Total Bilirubin 0.4, Aspartate Amino Transf (AST/SGOT) 9L, Alanine Aminotransferase (ALT/SGPT) < 6L, Alkaline Phosphatase 85, Troponin I 0.179H, Total Protein 5.4L, Albumin 2.6L, Globulin 2.8, Albumin/Globulin Ratio 0.9L 10/26/20 05:21: POC Whole Blood Glucose 165H Height (Feet): 5 Height (Inches): 0.00 Weight (Pounds): 145 General Appearance: lethargic EENT: PERRL/EOMI Neck: supple Cardiovascular: bradycardia Respiratory/Chest: decreased breath sounds Abdomen: hypoactive bowel sounds Extremities: non-tender Assessment/Plan Problem List: (1) Hypothyroidism ICD Codes: E03.9 - Hypothyroidism, unspecified SNOMED: 31352451 (2) Pneumonia due to COVID-19 virus ICD Codes: U07.1 - COVID-19; J12.82 - Pneumonia due to coronavirus disease 2019 SNOMED: 895474495195711738 (3) Malnutrition ICD Codes: E46 - Unspecified protein-calorie malnutrition SNOMED: 33402899 (4) Decubitus skin ulcer ICD Codes: L89.90 - Pressure ulcer of unspecified site, unspecified stage SNOMED: 808493108 (5) Elevated troponin ICD Codes: R77.8 - Other specified abnormalities of plasma proteins SNOMED: 408533387, 956675738, 355196610 (6) Atrial fibrillation ICD Codes: I48.91 - Unspecified atrial fibrillation SNOMED: 05240729 (7) Anemia ICD Codes: D64.9 - Anemia, unspecified SNOMED: 552332724 Status: progressing Assessment/Plan: transferred to ICU due to low BP and Bradycardia GTF on hold fu cardiology plan GTF tomorrow if stable Skyler Tobar MD Oct 26, 2020 08:04
[2020-10-26] MEDS: Pantoprazole Inj IVP SCH ×2 (08:06→20:28)
[2020-10-26] MEDS: D5NS 1,000 ML IV SCH ×2 (08:07→17:04)
[2020-10-26] MEDS: Eliquis 2.5mg tablet ORAL SCH ×2 (08:07→17:03)
[2020-10-26] MEDS: Docusate 100mg/10ml Liq GT SCH ×3 (08:07→17:03)
--- NOTE | 2020-10-26 08:56 | NUR ---
NURSE NOTES: Dr Tobar at the bedside, made aware due to decreased Blood pressure, patient on supine position, on pressor, GT feeding on hold at this time, per MD continue IVF D5NS for now.
--- NOTE | 2020-10-26 10:36 | NUR ---
RD ASSESSMENT & RECOMMENDATIONS SEE CARE ACTIVITY FOR COMPLETE ASSESSMENT DAILY ESTIMATED NEEDS: Needs based on Cardiac, pulmonary/ 51kg abw 25-30 kcals/kg 8660-5689 total kcals 1-1.5 g protein/kg 51-76 g total protein 20-25 mL/kg 7494-5424 total fluid mLs NUTRITION DIAGNOSIS: Swallowing difficulty R/T dysphagia, decreased cognitive fxn as evidenced by BOOKING AGENT recommends pureed moist texture diet w/ poor PO, s/p PEG placement on 10/23, GT feeds held due to hypotension, unable to keep HOB >30 degrees. CURRENT TF:NPO ENTERAL NUTRITION RECOMMENDATIONS: With hemodynamic stability: Glucerna 1.5 @ goal of 40ml/hr x 22 hrs to provide 880ml, 1320kcal, 66g prot, 640ml free water FEED WITH HEMODYNAMIC STABILITY -> When medically appropriate, initiate Glucerna 1.5 @ 10ml/hr x 6hrs -> Advance 10ml q 4-6 hrs as tolerated to goal rate -> HOB over 30 degrees/ H2O flush per MD ADDITIONAL RECOMMENDATIONS: * Calibrated bedscale wt * Monitor hemodynamic stability, ability to feed NE increasing in dosage, unable to keep HOB >30 degrees * Monitor BGs, need for hypoglycemics * Monitor lytes, replete as needed . .
[2020-10-26] MEDS: Norepinephrine 4mg/NS Premix 250 ML IV PRN ×3 (11:14→22:10)
--- NOTE | 2020-10-26 11:49 | Pulmonology Progress Note ---
Subjective ROS Limited/Unobtainable: No Interval Events: hypotension yesterday, now in ICU Constitutional: Reports: other - decreased appetite HEENT: Repors: no symptoms Respiratory: Reports: no symptoms Cardiovascular: Reports: no symptoms Gastrointestinal/Abdominal: Reports: other Psychiatric: Reports: other - refusing medications; s/p PEG Allergies: Coded Allergies: No Known Allergies (Unverified , 10/17/20) All Systems: reviewed and negative except above Objective Last 24 Hour Vital Signs Date Time Temp Pulse Resp B/P (MAP) Pulse Ox O2 Delivery O2 Flow Rate FiO2 10/26/20 11:15 114 23 100/77 (85) 99 10/26/20 11:14 88/42 10/26/20 11:00 104 21 66/49 (55) 100 10/26/20 10:00 107 18 86/55 (65) 95 10/26/20 09:00 Nasal Cannula 3.0 10/26/20 09:00 96 18 88/42 (57) 98 10/26/20 08:00 96.5 118 22 104/64 (77) 92 10/26/20 08:00 97 10/26/20 07:00 103 18 82/58 (66) 92 10/26/20 06:30 112 19 87/62 (70) 95 10/26/20 06:00 115 24 97/69 (78) 87 10/26/20 05:30 109 20 99/57 (71) 94 10/26/20 05:00 98 17 81/47 (58) 99 10/26/20 04:53 110/93 10/26/20 04:30 108 22 100/57 (71) 100 10/26/20 04:00 97.5 99 16 95/42 (59) 100 10/26/20 04:00 91 10/26/20 03:30 93 16 91/50 (64) 100 10/26/20 03:00 88 17 88/44 (59) 100 10/26/20 02:30 95 16 91/43 (59) 100 10/26/20 02:00 87 16 71/33 (46) 100 10/26/20 01:45 94 16 85/34 (51) 100 10/26/20 01:30 93 16 88/45 (59) 100 10/26/20 01:00 110 21 103/51 (68) 96 10/26/20 00:30 96 22 98/45 (62) 99 10/26/20 00:00 97.6 95 21 107/49 (68) 100 10/26/20 00:00 99 10/25/20 23:30 100 21 99/53 (68) 100 10/25/20 23:00 100 24 107/74 (85) 100 10/25/20 22:30 97 23 94/45 (61) 98 10/25/20 22:00 84 17 91/41 (58) 99 10/25/20 21:30 85 17 85/41 (56) 95 10/25/20 21:00 Nasal Cannula 2.0 10/25/20 21:00 91 21 103/50 (67) 98 10/25/20 20:30 98 24 102/55 (71) 99 10/25/20 20:00 97.5 86 16 98/46 (63) 92 10/25/20 20:00 85 10/25/20 19:30 80 18 89/45 (60) 97 10/25/20 19:14 76/58 10/25/20 19:00 80 18 75/34 (48) 94 10/25/20 16:00 93 10/25/20 16:00 94 24 96/58 (71) 98 10/25/20 15:00 85 20 72/39 (50) 96 10/25/20 12:00 98 10/25/20 12:00 97.9 20 95/47 (63) Intake and Output 10/25/20 10/26/20 19:00 07:00 Intake Total 400 ml 1324.815 ml Output Total 120 ml 40 ml Balance 280 ml 1284.815 ml Free Water 120 ml IV Total 400 ml 1204.815 ml Output Urine Total 120 ml 40 ml General Appearance: no acute distress HEENT: atraumatic Respiratory: lungs clear Cardiovascular: normal rate, regular rhythm Abdomen: soft, non tender, other - s/p PEG Microbiology Date/Time Source Procedure Growth Status 10/25/20 15:40 Nasopharynx SARS-CoV-2 Antigen (Rapid)(DIAZ) - Final Complete Laboratory Tests 10/25/20 12:31: Arterial Blood pH 7.240*L, Arterial Blood Partial Pressure CO2 62.7*H, Arterial Blood Partial Pressure O2 150.2H, Arterial Blood HCO3 26.3H, Arterial Blood Oxygen Saturation 98.4, Arterial Blood Base Excess -1.6, Gallo Test Positive 10/25/20 13:28: POC Whole Blood Glucose 148H 10/26/20 02:04: POC Whole Blood Glucose 150H 10/26/20 04:33: White Blood Count 8.2, Red Blood Count 3.02L, Hemoglobin 9.1L, Hematocrit 30.0L, Mean Corpuscular Volume 100H, Mean Corpuscular Hemoglobin 30.1, Mean Corpuscular Hemoglobin Concent 30.3L, Red Cell Distribution Width 19.9H, Platelet Count 176, Mean Platelet Volume 8.1, Neutrophils (%) (Auto) , Lymphocytes (%) (Auto) , Monocytes (%) (Auto) , Eosinophils (%) (Auto) , Basophils (%) (Auto) , Differential Total Cells Counted 100, Neutrophils % (Manual) 88H, Lymphocytes % (Manual) 6L, Monocytes % (Manual) 6, Eosinophils % (Manual) 0, Basophils % (Manual) 0, Band Neutrophils 0, Platelet Estimate Adequate, Platelet Morphology Normal, Hypochromasia 1+, Anisocytosis 1+, Macrocytosis 1+, Ovalocytes Occasional, Sodium Level 135L, Potassium Level 3.8, Chloride Level 102, Carbon Dioxide Level 26, Anion Gap 7, Blood Urea Nitrogen 33H, Creatinine 2.1H, Estimat Glomerular Filtration Rate 22.5, Glucose Level 180H, Lactic Acid Level 0.60, Uric Acid 8.2H, Calcium Level 7.6L, Phosphorus Level 4.2, Magnesium Level 2.1, Total Bilirubin 0.4, Aspartate Amino Transf (AST/SGOT) 9L, Alanine Aminotransferase (ALT/SGPT) < 6L, Alkaline Phosphatase 85, Troponin I 0.179H, Total Protein 5.4L, Albumin 2.6L, Globulin 2.8, Albumin/Globulin Ratio 0.9L 10/26/20 05:21: POC Whole Blood Glucose 165H Current Medications Medications (Trade) Dose Ordered Sig/Yolanda Route PRN Reason Start Time Stop Time Status Last Admin Dose Admin Acetaminophen (Tylenol) 500 mg Q6HR PRN ORAL Mild Pain 1-3 10/17/20 17:45 11/16/20 17:44 Acetaminophen (Tylenol) 500 mg Q6HR PRN ORAL fever >100 10/17/20 18:00 11/16/20 17:59 Acetaminophen (Tylenol) 650 mg Q4H PRN ORAL Pain Scale (6-10) 10/17/20 19:15 11/16/20 19:14 Apixaban (Eliquis) 2.5 mg BID ORAL 10/24/20 18:00 01/22/21 17:59 10/26/20 08:07 Chlorhexidine Gluconate (Eve-Hex 2%) 1 applic DAILY@2000 TOPIC 10/22/20 20:00 01/20/21 19:59 10/25/20 20:47 Dextrose/Sodium Chloride 1,000 ml @ 100 mls/hr Q10H IV 10/25/20 12:00 11/24/20 11:59 10/26/20 08:07 Docusate Sodium (Colace) 10 mg THREE TIMES A DAY GT 10/25/20 18:00 11/24/20 17:59 10/26/20 08:07 Famotidine (Pepcid) 20 mg DAILY ORAL 10/18/20 09:00 01/16/21 08:59 10/26/20 08:07 Levothyroxine Sodium (Synthroid) 50 mcg DAILY@0630 ORAL 10/19/20 06:30 11/18/20 06:29 10/25/20 07:44 Midodrine (Pro-Amatine) 10 mg Q8HR ORAL 10/18/20 14:00 01/16/21 13:59 10/26/20 05:08 Norepinephrine Bitartrate 250 ml @ 0 mls/hr Q24H PRN IV . 10/26/20 11:09 10/29/20 11:08 10/26/20 11:14 Ondansetron HCl (Zofran) 4 mg Q6H PRN IVP Nausea & Vomiting 10/17/20 21:15 11/16/20 21:14 Pantoprazole (Protonix) 40 mg DAILY IVP 10/23/20 09:00 11/22/20 08:59 10/26/20 08:06 Assessment/Plan Assessment/Plan 1. CHF, mild. 2. CAD/previous non-STEMI. 3. skilled nursing resident. 4. Bradycardia. 5. Atrial fibrillation. -Started on Eliquis 6. Renal insufficiency. -Nephro following 7. Troponin leak. - Cardio following 8. COVID-19 pneumonia, without fever or leukocytosis -On antibiotics per ID - We will hold off any specific therapy says she remains normoxemic on room air/low flow O2 9. Hypoxemia -now on 3L NC; wean as tolerated 10. 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 UTI, cheryl 12. Dysphagia -s/p PEG (10/23) 13. Hypotension; improved - s/p NS bolus - now off Lopressor The care of this patient was discussed with my supervising physician Time spent for this encounter was approximately 31 minutes Tl Pedro Oct 26, 2020 11:49
--- NOTE | 2020-10-26 12:17 | Nephrology Progress Note ---
Assessment/Plan Problem List: (1) Acute kidney injury (2) Anemia (3) Hyperkalemia (4) Elevated troponin (5) Pneumonia due to COVID-19 virus (6) Hypothyroidism Assessment Plan October 26: Seen in ICU. On pressors for low blood pressure. Serum creatinine 2.1. Albumin bolus given. Stress dose of steroids initiated. Continue to monitor renal parameters. Continue per consultants. October 25: Patient seen and examined. Trendelenburg. Blood pressure low. Tachycardic. Discussed with RN. Patient to be transferred to ICU. Discussed with ICU charge nurse and hospital charge nurse. Meanwhile patient started on Albumin bolus and 100 cc an hour D5 normal saline. Patient to be started on pressors while in ICU. Patient full code. October 24: No CHEM panel drawn today.. Renal parameters stable. Patient had a GT placed yesterday. Will check labs tomorrow. Medication list reviewed. October 23: Labs reviewed. Renal parameters unchanged. Creatinine 1.9. Continue current management. Medication list reviewed. October 22: Labs reviewed. Serum creatinine lower at 1.8. Patient started on clear liquid. Patient refuses p.o. medications and food at times. Continue per consultants. October 21: Labs reviewed. Serum creatinine unchanged. Continue per consultants. Continue to monitor renal parameters. October 20: Today's labs reviewed. Serum creatinine unchanged. RN reports patient not taking any p.o. meds. Continue per consultants. Serum creatinine appears to be baseline. October 19: Today's labs still not done yet. RN informed. Albumin bolus given again. Continue to monitor electrolytes and renal parameters. Per orders October 18: Patient hypotensive. Due for blood transfusion. Will give albumin bolus. Continue to monitor renal parameters and electrolytes. Labs and medication list reviewed Subjective ROS Limited/Unobtainable: Yes Objective Objective Last 24 Hour Vital Signs Date Time Temp Pulse Resp B/P (MAP) Pulse Ox O2 Delivery O2 Flow Rate FiO2 10/26/20 11:15 114 23 100/77 (85) 99 10/26/20 11:14 88/42 10/26/20 11:00 104 21 66/49 (55) 100 10/26/20 10:00 107 18 86/55 (65) 95 10/26/20 09:00 Nasal Cannula 3.0 10/26/20 09:00 96 18 88/42 (57) 98 10/26/20 08:00 96.5 118 22 104/64 (77) 92 10/26/20 08:00 97 10/26/20 07:00 103 18 82/58 (66) 92 10/26/20 06:30 112 19 87/62 (70) 95 10/26/20 06:00 115 24 97/69 (78) 87 10/26/20 05:30 109 20 99/57 (71) 94 10/26/20 05:00 98 17 81/47 (58) 99 10/26/20 04:53 110/93 10/26/20 04:30 108 22 100/57 (71) 100 10/26/20 04:00 97.5 99 16 95/42 (59) 100 10/26/20 04:00 91 10/26/20 03:30 93 16 91/50 (64) 100 10/26/20 03:00 88 17 88/44 (59) 100 10/26/20 02:30 95 16 91/43 (59) 100 10/26/20 02:00 87 16 71/33 (46) 100 10/26/20 01:45 94 16 85/34 (51) 100 10/26/20 01:30 93 16 88/45 (59) 100 10/26/20 01:00 110 21 103/51 (68) 96 10/26/20 00:30 96 22 98/45 (62) 99 10/26/20 00:00 97.6 95 21 107/49 (68) 100 10/26/20 00:00 99 10/25/20 23:30 100 21 99/53 (68) 100 10/25/20 23:00 100 24 107/74 (85) 100 10/25/20 22:30 97 23 94/45 (61) 98 10/25/20 22:00 84 17 91/41 (58) 99 10/25/20 21:30 85 17 85/41 (56) 95 10/25/20 21:00 Nasal Cannula 2.0 10/25/20 21:00 91 21 103/50 (67) 98 10/25/20 20:30 98 24 102/55 (71) 99 10/25/20 20:00 97.5 86 16 98/46 (63) 92 10/25/20 20:00 85 10/25/20 19:30 80 18 89/45 (60) 97 10/25/20 19:14 76/58 10/25/20 19:00 80 18 75/34 (48) 94 10/25/20 16:00 93 10/25/20 16:00 94 24 96/58 (71) 98 10/25/20 15:00 85 20 72/39 (50) 96 Intake and Output 10/25/20 10/26/20 19:00 07:00 Intake Total 400 ml 1324.815 ml Output Total 120 ml 40 ml Balance 280 ml 1284.815 ml Free Water 120 ml IV Total 400 ml 1204.815 ml Output Urine Total 120 ml 40 ml Current Medications Medications (Trade) Dose Ordered Sig/Yolanda Route PRN Reason Start Time Stop Time Status Last Admin Dose Admin Acetaminophen (Tylenol) 500 mg Q6HR PRN ORAL Mild Pain 1-3 10/17/20 17:45 11/16/20 17:44 Acetaminophen (Tylenol) 500 mg Q6HR PRN ORAL fever >100 10/17/20 18:00 11/16/20 17:59 Acetaminophen (Tylenol) 650 mg Q4H PRN ORAL Pain Scale (6-10) 10/17/20 19:15 11/16/20 19:14 Apixaban (Eliquis) 2.5 mg BID ORAL 10/24/20 18:00 01/22/21 17:59 10/26/20 08:07 Chlorhexidine Gluconate (Eve-Hex 2%) 1 applic DAILY@2000 TOPIC 10/22/20 20:00 01/20/21 19:59 10/25/20 20:47 Dextrose/Sodium Chloride 1,000 ml @ 100 mls/hr Q10H IV 10/25/20 12:00 11/24/20 11:59 10/26/20 08:07 Docusate Sodium (Colace) 10 mg THREE TIMES A DAY GT 10/25/20 18:00 11/24/20 17:59 10/26/20 08:07 Famotidine (Pepcid) 20 mg DAILY ORAL 10/18/20 09:00 01/16/21 08:59 10/26/20 08:07 Levothyroxine Sodium (Synthroid) 50 mcg DAILY@0630 ORAL 10/19/20 06:30 11/18/20 06:29 10/25/20 07:44 Midodrine (Pro-Amatine) 10 mg Q8HR ORAL 10/18/20 14:00 01/16/21 13:59 10/26/20 05:08 Norepinephrine Bitartrate 250 ml @ 0 mls/hr Q24H PRN IV . 10/26/20 11:09 10/29/20 11:08 10/26/20 11:14 Ondansetron HCl (Zofran) 4 mg Q6H PRN IVP Nausea & Vomiting 10/17/20 21:15 11/16/20 21:14 Pantoprazole (Protonix) 40 mg DAILY IVP 10/23/20 09:00 11/22/20 08:59 10/26/20 08:06 Laboratory Tests 10/25/20 12:31: Arterial Blood pH 7.240*L, Arterial Blood Partial Pressure CO2 62.7*H, Arterial Blood Partial Pressure O2 150.2H, Arterial Blood HCO3 26.3H, Arterial Blood Oxygen Saturation 98.4, Arterial Blood Base Excess -1.6, Gallo Test Positive 10/25/20 13:28: POC Whole Blood Glucose 148H 10/26/20 02:04: POC Whole Blood Glucose 150H 10/26/20 04:33: White Blood Count 8.2, Red Blood Count 3.02L, Hemoglobin 9.1L, Hematocrit 30.0L, Mean Corpuscular Volume 100H, Mean Corpuscular Hemoglobin 30.1, Mean Corpuscular Hemoglobin Concent 30.3L, Red Cell Distribution Width 19.9H, Platelet Count 176, Mean Platelet Volume 8.1, Neutrophils (%) (Auto) , Lymphocytes (%) (Auto) , Monocytes (%) (Auto) , Eosinophils (%) (Auto) , Basophils (%) (Auto) , Differential Total Cells Counted 100, Neutrophils % (Manual) 88H, Lymphocytes % (Manual) 6L, Monocytes % (Manual) 6, Eosinophils % (Manual) 0, Basophils % (M anual) 0, Band Neutrophils 0, Platelet Estimate Adequate, Platelet Morphology Normal, Hypochromasia 1+, Anisocytosis 1+, Macrocytosis 1+, Ovalocytes Occasional, Sodium Level 135L, Potassium Level 3.8, Chloride Level 102, Carbon Dioxide Level 26, Anion Gap 7, Blood Urea Nitrogen 33H, Creatinine 2.1H, Estimat Glomerular Filtration Rate 22.5, Glucose Level 180H, Lactic Acid Level 0.60, Uric Acid 8.2H, Calcium Level 7.6L, Phosphorus Level 4.2, Magnesium Level 2.1, Total Bilirubin 0.4, Aspartate Amino Transf (AST/SGOT) 9L, Alanine Aminotransferase (ALT/SGPT) < 6L, Alkaline Phosphatase 85, Troponin I 0.179H, Total Protein 5.4L, Albumin 2.6L, Globulin 2.8, Albumin/Globulin Ratio 0.9L 10/26/20 05:21: POC Whole Blood Glucose 165H Height (Feet): 5 Height (Inches): 0.00 Weight (Pounds): 145 General Appearance: no apparent distress, lethargic Cardiovascular: tachycardia Respiratory/Chest: decreased breath sounds Abdomen: distended Dustin Gómez MD Oct 26, 2020 12:17
--- NOTE | 2020-10-26 12:24 | Cardiac Electrophysiology PN ---
Assessment/Plan Assessment/Plan 1. Non-ST elevation myocardial infarction with elevated troponin of more than 0.2. The level has come down to 0.19, but the levels are flat and likely due to renal failure as the creatinine is 2.1. On aspirin and off Lopressor as BP now in 70s 2. Atrial fibrillation with rapid ventricular response. DC Lopressor as BP in 70s. On Eliquis 2.5 bid 3. Questionable bradycardia. The heart rate has been in the 80s and 90s. It is possible that they could not record the heart beat in view of the patient's atrial fibrillation. 4. History of previous non-ST elevation myocardial infarction. 5. Renal insufficiency.Cr still 2.1 6. Status post COVID pneumonia, was tested positive more than two weeks ago Now is negative 7. Dysphagia, S/P PEG 10/23/20 8. Septic shock. BP in 70s. off Lopressor. Got 1 liter of NS. Got central line. On Levophed 14 Mcg 9. Full code. DW Dr Gómez and Julia Subjective Subjective Off Covid isolation. Atrial fib rate controlled in 80s S/P PEG by Dr Tobar 10/23/20 BP dropped to 70-s and underwent central line placement. Now in ICU on Levophed 14 Mcg. Covid negative 10/25 Objective Last 24 Hour Vital Signs Date Time Temp Pulse Resp B/P (MAP) Pulse Ox O2 Delivery O2 Flow Rate FiO2 10/26/20 11:15 114 23 100/77 (85) 99 10/26/20 11:14 88/42 10/26/20 11:00 104 21 66/49 (55) 100 10/26/20 10:00 107 18 86/55 (65) 95 10/26/20 09:00 Nasal Cannula 3.0 10/26/20 09:00 96 18 88/42 (57) 98 10/26/20 08:00 96.5 118 22 104/64 (77) 92 10/26/20 08:00 97 10/26/20 07:00 103 18 82/58 (66) 92 10/26/20 06:30 112 19 87/62 (70) 95 10/26/20 06:00 115 24 97/69 (78) 87 10/26/20 05:30 109 20 99/57 (71) 94 10/26/20 05:00 98 17 81/47 (58) 99 10/26/20 04:53 110/93 10/26/20 04:30 108 22 100/57 (71) 100 10/26/20 04:00 97.5 99 16 95/42 (59) 100 10/26/20 04:00 91 10/26/20 03:30 93 16 91/50 (64) 100 10/26/20 03:00 88 17 88/44 (59) 100 10/26/20 02:30 95 16 91/43 (59) 100 10/26/20 02:00 87 16 71/33 (46) 100 10/26/20 01:45 94 16 85/34 (51) 100 10/26/20 01:30 93 16 88/45 (59) 100 10/26/20 01:00 110 21 103/51 (68) 96 10/26/20 00:30 96 22 98/45 (62) 99 10/26/20 00:00 97.6 95 21 107/49 (68) 100 10/26/20 00:00 99 10/25/20 23:30 100 21 99/53 (68) 100 10/25/20 23:00 100 24 107/74 (85) 100 10/25/20 22:30 97 23 94/45 (61) 98 10/25/20 22:00 84 17 91/41 (58) 99 10/25/20 21:30 85 17 85/41 (56) 95 10/25/20 21:00 Nasal Cannula 2.0 10/25/20 21:00 91 21 103/50 (67) 98 10/25/20 20:30 98 24 102/55 (71) 99 10/25/20 20:00 97.5 86 16 98/46 (63) 92 10/25/20 20:00 85 10/25/20 19:30 80 18 89/45 (60) 97 10/25/20 19:14 76/58 10/25/20 19:00 80 18 75/34 (48) 94 10/25/20 16:00 93 10/25/20 16:00 94 24 96/58 (71) 98 10/25/20 15:00 85 20 72/39 (50) 96 Intake and Output 10/25/20 10/26/20 19:00 07:00 Intake Total 400 ml 1324.815 ml Output Total 120 ml 40 ml Balance 280 ml 1284.815 ml Free Water 120 ml IV Total 400 ml 1204.815 ml Output Urine Total 120 ml 40 ml Laboratory Tests Test 10/25/20 12:31 10/25/20 13:28 10/26/20 02:04 10/26/20 04:33 Arterial Blood pH 7.240 (7.350-7.450) Arterial Blood Partial Pressure CO2 62.7 mmHg (35.0-45.0) *H Arterial Blood Partial Pressure O2 150.2 mmHg (75.0-100.0) H Arterial Blood HCO3 26.3 mmol/L (22.0-26.0) H Arterial Blood Oxygen Saturation 98.4 % (95-100) Arterial Blood Base Excess -1.6 (-2-2) Gallo Test Positive POC Whole Blood Glucose 148 MG/DL (74-106) H 150 MG/DL (74-106) H White Blood Count 8.2 K/UL (4.8-10.8) Red Blood Count 3.02 M/UL (4.20-5.40) L Hemoglobin 9.1 G/DL (12.0-16.0) L Hematocrit 30.0 % (37.0-47.0) L Mean Corpuscular Volume 100 FL (80-99) H Mean Corpuscular Hemoglobin 30.1 PG (27.0-31.0) Mean Corpuscular Hemoglobin Concent 30.3 G/DL (32.0-36.0) L Red Cell Distribution Width 19.9 % (11.6-14.8) H Platelet Count 176 K/UL (150-450) Mean Platelet Volume 8.1 FL (6.5-10.1) Neutrophils (%) (Auto) % (45.0-75.0) Lymphocytes (%) (Auto) % (20.0-45.0) Monocytes (%) (Auto) % (1.0-10.0) Eosinophils (%) (Auto) % (0.0-3.0) Basophils (%) (Auto) % (0.0-2.0) Differential Total Cells Counted 100 Neutrophils % (Manual) 88 % (45-75) H Lymphocytes % (Manual) 6 % (20-45) L Monocytes % (Manual) 6 % (1-10) Eosinophils % (Manual) 0 % (0-3) Basophils % (Manual) 0 % (0-2) Band Neutrophils 0 % (0-8) Platelet Estimate Adequate Platelet Morphology Normal Hypochromasia 1+ Anisocytosis 1+ Macrocytosis 1+ Ovalocytes Occasional Sodium Level 135 MMOL/L (136-145) L Potassium Level 3.8 MMOL/L (3.5-5.1) Chloride Level 102 MMOL/L (98-107) Carbon Dioxide Level 26 MMOL/L (21-32) Anion Gap 7 mmol/L (5-15) Blood Urea Nitrogen 33 mg/dL (7-18) H Creatinine 2.1 MG/DL (0.55-1.30) H Estimat Glomerular Filtration Rate 22.5 mL/min (>60) Glucose Level 180 MG/DL (74-106) H Lactic Acid Level 0.60 mmol/L (0.4-2.0) Uric Acid 8.2 MG/DL (2.6-7.2) H Calcium Level 7.6 MG/DL (8.5-10.1) L Phosphorus Level 4.2 MG/DL (2.5-4.9) Magnesium Level 2.1 MG/DL (1.8-2.4) Total Bilirubin 0.4 MG/DL (0.2-1.0) Aspartate Amino Transf (AST/SGOT) 9 U/L (15-37) L Alanine Aminotransferase (ALT/SGPT) < 6 U/L (12-78) L Alkaline Phosphatase 85 U/L (46-116) Troponin I 0.179 ng/mL (0.000-0.056) Total Protein 5.4 G/DL (6.4-8.2) L Albumin 2.6 G/DL (3.4-5.0) L Globulin 2.8 g/dL Albumin/Globulin Ratio 0.9 (1.0-2.7) L Test 10/26/20 05:21 POC Whole Blood Glucose 165 MG/DL (74-106) H Microbiology Date/Time Source Procedure Growth Status 10/25/20 15:40 Nasopharynx SARS-CoV-2 Antigen (Rapid)(DIAZ) - Final Complete Objective HEAD AND NECK: No JVD. LUNGS: Decreased breath sounds. CARDIOVASCULAR: Irregular S1 and S2 with no gallop. ABDOMEN: Soft.S/P PEG EXTREMITIES: No pitting edema. Terry Reyes MD Oct 26, 2020 12:24
--- NOTE | 2020-10-26 12:27 | Infectious Diseases Prog Note ---
Assessment/Plan Assessment/Plan IMPRESSION: Abnormal chest x-ray, atelectasis versus infiltrate in the left lung base, Recent history of COVID disease, Acute renal failure, Severe aortic stenosis Atrial fibrillation, hypothyroidism, Anemia. Chronic DVT of R leg Hypotension Gatrostomy status RECOMMENDATION: CXR Start on Zosyn Subjective ROS Limited/Unobtainable: Yes Constitutional: Reports: other - transferred to ICU Cardiovascular: Reports: other - hypotensive, started on Levophed Allergies: Coded Allergies: No Known Allergies (Unverified , 10/17/20) Objective Last 24 Hour Vital Signs Date Time Temp Pulse Resp B/P (MAP) Pulse Ox O2 Delivery O2 Flow Rate FiO2 10/26/20 11:15 114 23 100/77 (85) 99 10/26/20 11:14 88/42 10/26/20 11:00 104 21 66/49 (55) 100 10/26/20 10:00 107 18 86/55 (65) 95 10/26/20 09:00 Nasal Cannula 3.0 10/26/20 09:00 96 18 88/42 (57) 98 10/26/20 08:00 96.5 118 22 104/64 (77) 92 10/26/20 08:00 97 10/26/20 07:00 103 18 82/58 (66) 92 10/26/20 06:30 112 19 87/62 (70) 95 10/26/20 06:00 115 24 97/69 (78) 87 10/26/20 05:30 109 20 99/57 (71) 94 10/26/20 05:00 98 17 81/47 (58) 99 10/26/20 04:53 110/93 10/26/20 04:30 108 22 100/57 (71) 100 10/26/20 04:00 97.5 99 16 95/42 (59) 100 10/26/20 04:00 91 10/26/20 03:30 93 16 91/50 (64) 100 10/26/20 03:00 88 17 88/44 (59) 100 10/26/20 02:30 95 16 91/43 (59) 100 10/26/20 02:00 87 16 71/33 (46) 100 10/26/20 01:45 94 16 85/34 (51) 100 10/26/20 01:30 93 16 88/45 (59) 100 10/26/20 01:00 110 21 103/51 (68) 96 10/26/20 00:30 96 22 98/45 (62) 99 10/26/20 00:00 97.6 95 21 107/49 (68) 100 10/26/20 00:00 99 10/25/20 23:30 100 21 99/53 (68) 100 10/25/20 23:00 100 24 107/74 (85) 100 10/25/20 22:30 97 23 94/45 (61) 98 10/25/20 22:00 84 17 91/41 (58) 99 10/25/20 21:30 85 17 85/41 (56) 95 10/25/20 21:00 Nasal Cannula 2.0 10/25/20 21:00 91 21 103/50 (67) 98 10/25/20 20:30 98 24 102/55 (71) 99 10/25/20 20:00 97.5 86 16 98/46 (63) 92 10/25/20 20:00 85 10/25/20 19:30 80 18 89/45 (60) 97 10/25/20 19:14 76/58 10/25/20 19:00 80 18 75/34 (48) 94 10/25/20 16:00 93 10/25/20 16:00 94 24 96/58 (71) 98 10/25/20 15:00 85 20 72/39 (50) 96 Height (Feet): 5 Height (Inches): 0.00 Weight (Pounds): 145 HEENT: mucous membranes moist Respiratory/Chest: lungs clear Cardiovascular: tachycardia, other - R femoral line Abdomen: soft, non tender, other - GT in place Extremities: other - general edema Neurologic/Psychiatric: other - less responsive today Microbiology Date/Time Source Procedure Growth Status 10/25/20 15:40 Nasopharynx SARS-CoV-2 Antigen (Rapid)(DIAZ) - Final Complete Laboratory Tests Test 10/25/20 12:31 10/25/20 13:28 10/26/20 02:04 10/26/20 04:33 Arterial Blood pH 7.240 (7.350-7.450) Arterial Blood Partial Pressure CO2 62.7 mmHg (35.0-45.0) *H Arterial Blood Partial Pressure O2 150.2 mmHg (75.0-100.0) H Arterial Blood HCO3 26.3 mmol/L (22.0-26.0) H Arterial Blood Oxygen Saturation 98.4 % (95-100) Arterial Blood Base Excess -1.6 (-2-2) Gallo Test Positive POC Whole Blood Glucose 148 MG/DL (74-106) H 150 MG/DL (74-106) H White Blood Count 8.2 K/UL (4.8-10.8) Red Blood Count 3.02 M/UL (4.20-5.40) L Hemoglobin 9.1 G/DL (12.0-16.0) L Hematocrit 30.0 % (37.0-47.0) L Mean Corpuscular Volume 100 FL (80-99) H Mean Corpuscular Hemoglobin 30.1 PG (27.0-31.0) Mean Corpuscular Hemoglobin Concent 30.3 G/DL (32.0-36.0) L Red Cell Distribution Width 19.9 % (11.6-14.8) H Platelet Count 176 K/UL (150-450) Mean Platelet Volume 8.1 FL (6.5-10.1) Neutrophils (%) (Auto) % (45.0-75.0) Lymphocytes (%) (Auto) % (20.0-45.0) Monocytes (%) (Auto) % (1.0-10.0) Eosinophils (%) (Auto) % (0.0-3.0) Basophils (%) (Auto) % (0.0-2.0) Differential Total Cells Counted 100 Neutrophils % (Manual) 88 % (45-75) H Lymphocytes % (Manual) 6 % (20-45) L Monocytes % (Manual) 6 % (1-10) Eosinophils % (Manual) 0 % (0-3) Basophils % (Manual) 0 % (0-2) Band Neutrophils 0 % (0-8) Platelet Estimate Adequate Platelet Morphology Normal Hypochromasia 1+ Anisocytosis 1+ Macrocytosis 1+ Ovalocytes Occasional Sodium Level 135 MMOL/L (136-145) L Potassium Level 3.8 MMOL/L (3.5-5.1) Chloride Level 102 MMOL/L (98-107) Carbon Dioxide Level 26 MMOL/L (21-32) Anion Gap 7 mmol/L (5-15) Blood Urea Nitrogen 33 mg/dL (7-18) H Creatinine 2.1 MG/DL (0.55-1.30) H Estimat Glomerular Filtration Rate 22.5 mL/min (>60) Glucose Level 180 MG/DL (74-106) H Lactic Acid Level 0.60 mmol/L (0.4-2.0) Uric Acid 8.2 MG/DL (2.6-7.2) H Calcium Level 7.6 MG/DL (8.5-10.1) L Phosphorus Level 4.2 MG/DL (2.5-4.9) Magnesium Level 2.1 MG/DL (1.8-2.4) Total Bilirubin 0.4 MG/DL (0.2-1.0) Aspartate Amino Transf (AST/SGOT) 9 U/L (15-37) L Alanine Aminotransferase (ALT/SGPT) < 6 U/L (12-78) L Alkaline Phosphatase 85 U/L (46-116) Troponin I 0.179 ng/mL (0.000-0.056) Total Protein 5.4 G/DL (6.4-8.2) L Albumin 2.6 G/DL (3.4-5.0) L Globulin 2.8 g/dL Albumin/Globulin Ratio 0.9 (1.0-2.7) L Test 10/26/20 05:21 POC Whole Blood Glucose 165 MG/DL (74-106) H Current Medications Medications (Trade) Dose Ordered Sig/Yolanda Route PRN Reason Start Time Stop Time Status Last Admin Dose Admin Acetaminophen (Tylenol) 500 mg Q6HR PRN ORAL Mild Pain 1-3 10/17/20 17:45 11/16/20 17:44 Acetaminophen (Tylenol) 500 mg Q6HR PRN ORAL fever >100 10/17/20 18:00 11/16/20 17:59 Acetaminophen (Tylenol) 650 mg Q4H PRN ORAL Pain Scale (6-10) 10/17/20 19:15 11/16/20 19:14 Albumin Human 500 ml @ 0 mls/hr Q0M IV 10/26/20 12:30 10/26/20 13:30 Apixaban (Eliquis) 2.5 mg BID ORAL 10/24/20 18:00 01/22/21 17:59 10/26/20 08:07 Chlorhexidine Gluconate (Eve-Hex 2%) 1 applic DAILY@2000 TOPIC 10/22/20 20:00 01/20/21 19:59 10/25/20 20:47 Dextrose/Sodium Chloride 1,000 ml @ 100 mls/hr Q10H IV 10/25/20 12:00 11/24/20 11:59 10/26/20 08:07 Docusate Sodium (Colace) 10 mg THREE TIMES A DAY GT 10/25/20 18:00 11/24/20 17:59 10/26/20 08:07 Hydrocortisone (Solu-CORTEF) 100 mg EVERY 8 HOURS IV 10/26/20 14:00 10/27/20 22:01 Levothyroxine Sodium (Synthroid) 50 mcg DAILY@0630 ORAL 10/19/20 06:30 11/18/20 06:29 10/25/20 07:44 Midodrine (Pro-Amatine) 10 mg Q8HR GT 10/26/20 14:00 01/16/21 13:59 Norepinephrine Bitartrate 250 ml @ 0 mls/hr Q24H PRN IV . 10/26/20 11:09 10/29/20 11:08 10/26/20 11:14 Ondansetron HCl (Zofran) 4 mg Q6H PRN IVP Nausea & Vomiting 10/17/20 21:15 11/16/20 21:14 Pantoprazole (Protonix) 40 mg EVERY 12 HOURS IVP 10/26/20 21:00 11/25/20 20:59 Luis Alvarado MD Oct 26, 2020 12:27
--- NOTE | 2020-10-26 12:49 | Surgery Progress Note ---
Surgery Progress Note Subjective Procedure Performed Right femoral central venous catheter insertion Additional Comments ill appearing on pressors levo 14 worsening Objective Last 24 Hour Vital Signs Date Time Temp Pulse Resp B/P (MAP) Pulse Ox O2 Delivery O2 Flow Rate FiO2 10/26/20 11:15 114 23 100/77 (85) 99 10/26/20 11:14 88/42 10/26/20 11:00 104 21 66/49 (55) 100 10/26/20 10:00 107 18 86/55 (65) 95 10/26/20 09:00 Nasal Cannula 3.0 10/26/20 09:00 96 18 88/42 (57) 98 10/26/20 08:00 96.5 118 22 104/64 (77) 92 10/26/20 08:00 97 10/26/20 07:00 103 18 82/58 (66) 92 10/26/20 06:30 112 19 87/62 (70) 95 10/26/20 06:00 115 24 97/69 (78) 87 10/26/20 05:30 109 20 99/57 (71) 94 10/26/20 05:00 98 17 81/47 (58) 99 10/26/20 04:53 110/93 10/26/20 04:30 108 22 100/57 (71) 100 10/26/20 04:00 97.5 99 16 95/42 (59) 100 10/26/20 04:00 91 10/26/20 03:30 93 16 91/50 (64) 100 10/26/20 03:00 88 17 88/44 (59) 100 10/26/20 02:30 95 16 91/43 (59) 100 10/26/20 02:00 87 16 71/33 (46) 100 10/26/20 01:45 94 16 85/34 (51) 100 10/26/20 01:30 93 16 88/45 (59) 100 10/26/20 01:00 110 21 103/51 (68) 96 10/26/20 00:30 96 22 98/45 (62) 99 10/26/20 00:00 97.6 95 21 107/49 (68) 100 10/26/20 00:00 99 10/25/20 23:30 100 21 99/53 (68) 100 10/25/20 23:00 100 24 107/74 (85) 100 10/25/20 22:30 97 23 94/45 (61) 98 10/25/20 22:00 84 17 91/41 (58) 99 10/25/20 21:30 85 17 85/41 (56) 95 10/25/20 21:00 Nasal Cannula 2.0 10/25/20 21:00 91 21 103/50 (67) 98 10/25/20 20:30 98 24 102/55 (71) 99 10/25/20 20:00 97.5 86 16 98/46 (63) 92 10/25/20 20:00 85 10/25/20 19:30 80 18 89/45 (60) 97 10/25/20 19:14 76/58 10/25/20 19:00 80 18 75/34 (48) 94 10/25/20 16:00 93 10/25/20 16:00 94 24 96/58 (71) 98 10/25/20 15:00 85 20 72/39 (50) 96 I&O Intake and Output 10/25/20 10/26/20 19:00 07:00 Intake Total 400 ml 1324.815 ml Output Total 120 ml 40 ml Balance 280 ml 1284.815 ml Free Water 120 ml IV Total 400 ml 1204.815 ml Output Urine Total 120 ml 40 ml Dressing: saturated Cardiovascular: RSR Respiratory: decreased breath sounds Abdomen: soft, non-tender, decreased bowel sounds Extremities: no tenderness, no cyanosis Laboratory Tests Test 10/25/20 13:28 10/26/20 02:04 10/26/20 04:33 10/26/20 05:21 POC Whole Blood Glucose 148 MG/DL (74-106) H 150 MG/DL (74-106) H 165 MG/DL (74-106) H White Blood Count 8.2 K/UL (4.8-10.8) Red Blood Count 3.02 M/UL (4.20-5.40) L Hemoglobin 9.1 G/DL (12.0-16.0) L Hematocrit 30.0 % (37.0-47.0) L Mean Corpuscular Volume 100 FL (80-99) H Mean Corpuscular Hemoglobin 30.1 PG (27.0-31.0) Mean Corpuscular Hemoglobin Concent 30.3 G/DL (32.0-36.0) L Red Cell Distribution Width 19.9 % (11.6-14.8) H Platelet Count 176 K/UL (150-450) Mean Platelet Volume 8.1 FL (6.5-10.1) Neutrophils (%) (Auto) % (45.0-75.0) Lymphocytes (%) (Auto) % (20.0-45.0) Monocytes (%) (Auto) % (1.0-10.0) Eosinophils (%) (Auto) % (0.0-3.0) Basophils (%) (Auto) % (0.0-2.0) Differential Total Cells Counted 100 Neutrophils % (Manual) 88 % (45-75) H Lymphocytes % (Manual) 6 % (20-45) L Monocytes % (Manual) 6 % (1-10) Eosinophils % (Manual) 0 % (0-3) Basophils % (Manual) 0 % (0-2) Band Neutrophils 0 % (0-8) Platelet Estimate Adequate Platelet Morphology Normal Hypochromasia 1+ Anisocytosis 1+ Macrocytosis 1+ Ovalocytes Occasional Sodium Level 135 MMOL/L (136-145) L Potassium Level 3.8 MMOL/L (3.5-5.1) Chloride Level 102 MMOL/L (98-107) Carbon Dioxide Level 26 MMOL/L (21-32) Anion Gap 7 mmol/L (5-15) Blood Urea Nitrogen 33 mg/dL (7-18) H Creatinine 2.1 MG/DL (0.55-1.30) H Estimat Glomerular Filtration Rate 22.5 mL/min (>60) Glucose Level 180 MG/DL (74-106) H Lactic Acid Level 0.60 mmol/L (0.4-2.0) Uric Acid 8.2 MG/DL (2.6-7.2) H Calcium Level 7.6 MG/DL (8.5-10.1) L Phosphorus Level 4.2 MG/DL (2.5-4.9) Magnesium Level 2.1 MG/DL (1.8-2.4) Total Bilirubin 0.4 MG/DL (0.2-1.0) Aspartate Amino Transf (AST/SGOT) 9 U/L (15-37) L Alanine Aminotransferase (ALT/SGPT) < 6 U/L (12-78) L Alkaline Phosphatase 85 U/L (46-116) Troponin I 0.179 ng/mL (0.000-0.056) Total Protein 5.4 G/DL (6.4-8.2) L Albumin 2.6 G/DL (3.4-5.0) L Globulin 2.8 g/dL Albumin/Globulin Ratio 0.9 (1.0-2.7) L Plan Problems: (1) Anemia (2) Acute kidney injury (3) Atrial fibrillation (4) Hyperkalemia (5) Elevated troponin (6) Decubitus skin ulcer Assessment & Plan: Pt presented on admission with Multiple Medical Comorbidities including Covid-19 and Pressure Injuries. Primary Nurse reported Pt has been declining food and medications. Sacral DTPI that is evolving noted to Sacrum(L)6cm x (W)12.5cm.. Scattered Purp uric areas that are indurated noted to R and L cheek. Small wound that is 100% slough (L)0.6cm x (W)0.7cm noted at sacrococcygeal area within base of DTPI. MASD noted to Perineum and skin folds of Medial/posterior aspects of Both upper thighs. Affected areas are erythematous and macerated with scattered satellite lesions. DTPI L Heel (L)3cm x (W)4cm, Base of heel is maroon and fluctuant with small purpuric area (L)0.4cm x (W)0.9cm within base of DTPI. l Foot including toes are mottled and cool to touch. L Heel is boggy. L Heel including toes are Mottled and cool to touch. Tx.Plan: Apply Moisture Barrier Paste to Sacrum. Cover with Optifoam drsg.Change every 3 days and prn. Apply Moisture Barrier Paste to abdominal folds, Perineum and skin folds of both upper thighs. Apply Cavilon Skin Barrier to both heels. Cover each Heel with Optifoam drsg. Change every 7 days and prn. Reposition at least every 2hours or as tolerated. Off-load heels with pillow. (7) Malnutrition Assessment & Plan: She was able to self feed on right hand and took a bite of popsicle and tolerated without s.s of aspiration. After 1st bite, then she refused 2nd bite. After this was done, I offered her a cup of cranberry juice, she took few sips and tolerated without s.s of aspiration. I continued to offer but she refused further PO. A: 1. Functional swallow 2. Failure to thrive 3. abnormal electrolytes in setting of heart failure, NSTEMI, elevated BNP, etc.. P/Rec. 1. Pureed and thin liquid 2.3. Goal of care discussion DAILY ESTIMATED NEEDS: Needs based on Cardiac, pulmonary/ 51kg abw 25-30 kcals/kg 3420-5872 total kcals 1-1.5 g protein/kg 51-76 g total protein 20-25 mL/kg 0855-0822 total fluid mLs NUTRITION DIAGNOSIS: Swallowing difficulty R/T dysphagia, decreased cognitive fxn as evidenced by IVF EMBRYOLOGIST recommends pureed moist texture diet at this time. CURRENT DIET:NPO PO DIET RECOMMENDATIONS: Liberalized REGULAR w/ poor PO (texture per IVF EMBRYOLOGIST) ADDITIONAL RECOMMENDATIONS: * Calibrated bedscale wt * Monitor PO intake: refusing meds and foods at this time -> rec nonoral feeds w/ continued refusal of PO if part of POC * LOW NA diet w/ PO intake consistently >50% * 4 oz Ensure TID w/ meals (4oz at this time due to poor acceptance, may increase to 8oz w/ good acceptance) Jim Orosco Oct 26, 2020 12:49
[2020-10-26] MEDS: Hydrocortisone 100mg Inj IV SCH ×2 (13:34→22:08)
[2020-10-26] MEDS: Midodrine 10mg tab GT SCH ×2 (13:35→22:08)
[2020-10-26] MEDS: Piperacillin/Tazobactam 3.375 GM in NS 110 ML IVPB SCH (14:01)
--- NOTE | 2020-10-26 15:24 | NUR ---
NURSE NOTES: Paged Dr. Woods regarding ABG result, awaiting for callback, will continue to monitor.
--- NOTE | 2020-10-26 15:44 | NUR ---
SENIOR PUBLICATIONS SPECIALIST NOTE Pt is from [facility]. SW spoke w/ pt's son, Armani Mendieta (H[place]uran/[place]er speaking ONLY) [phone] through [place]uran merchandise coordinator Faina #[phone]. Akquan is the primary decision maker/auto parts counter person for pt. Akop requested information on getting denture and requesting more IHSS hours. Akop reports that denture was lost at [facility] or [facility]. SW encouraged Akop to contact [facility] and [facility] directly and file missing item report. SW explained Armani that denture needs to be done from outpatient dentist office and SW encouraged Akop to contact the [facility] family welfare social work professor for re-evaluation to determine IHSS hours. Akop verbalized understanding. Pt reports he spoke w/ Rikia from [facility] [phone]. The son is requesting pt to be placed at [facility] (Honduran speaking) in [place], [place] upon DC. LIBBY will relay information to . Other emergency contacts: Leonard (relative) [phone] Isabela (relative) [phone] Please contact two relatives if past medical hx is needed.
--- NOTE | 2020-10-26 15:45 | NUR ---
RESPIRATORY NOTE: ABG drawn @ 1454. Results: pH 7.081, pCO2 86.3, pO2 90.7, HCO3 25.1, BE -5.7, sO2 95.4. RN notified. MD called regarding low pH and high CO2. Placed pt on BIPAP 15/5, backup rate 12, 30% FiO2 @ 1543. RN aware. ABG to be drawn @ 1700. Will continue to closely monitor.
--- NOTE | 2020-10-26 15:45 | NUR ---
NURSE NOTES: Per Dr. Woods, BIPAP 15/5 fio2 40%. RT made aware. ABG @ 1700, order noted, entered, carried out. Will continue to monitor.
--- NOTE | 2020-10-26 16:30 | Diagnostic Imaging Report ---
Indication: Shortness of breath Technique: One view of the chest Comparison: 10/17/2020 Findings: Patient is rotated to the right. There appears to be increased left pleural fluid and generalized hazy parenchymal opacity, left greater than right. Heart remains enlarged Impression: Increased left pleural effusion Suspect increasing bilateral left greater than right pulmonary edema versus infiltrates
--- NOTE | 2020-10-26 19:19 | NUR ---
NURSE HAND-OFF REPORT: Latest Vital Signs: Temperature 96.8 , Pulse 124 , B/P 116 /62 , Respiratory Rate 21 , O2 SAT 95 , Simple Mask, O2 Flow Rate 2.0 . Vital Sign Comment: BIPAP at this time EKG Rhythm: Atrial Fibrillation Rhythm change?: N MD Notified?: - MD Response: Latest Elizabeth Fall Score: 70 Fall Risk: High Risk Safety Measures: Call light Within Reach, Bed Alarm Zone 1, Side Rails Side Rails x3, Bed position Low and Locked. Fall Precautions: Yellow Socks Patient Fall Education Report given to SERGIO Holbrook.
--- NOTE | 2020-10-26 19:44 | NUR ---
NURSE NOTES: received report from kishor rn pt lethergic -b-pap 09/01 [id number]
--- NOTE | 2020-10-26 20:00 | NUR ---
NURSE NOTES: received report from kishor rn pt lethargic open eyes to touch does not follows command on b-pap 15/5 30% FIO2 100% NO ACUTE RESP DISTRESS ON LEVO DRIP AT 14MCG/MIN WITH BP 122/65 TOLERATING TUBE FEEDING NO RESIDUAL URINARY OUTPUT GOOD REPOSITION AND SUCTION
--- NOTE | 2020-10-26 20:20 | General Progress Note ---
Subjective ROS Limited/Unobtainable: Yes Allergies: Coded Allergies: No Known Allergies (Unverified , 10/17/20) Objective Last 24 Hour Vital Signs Date Time Temp Pulse Resp B/P (MAP) Pulse Ox O2 Delivery O2 Flow Rate FiO2 10/26/20 19:17 124 21 95 30 10/26/20 19:00 95 17 116/62 (80) 99 10/26/20 18:00 116 20 108/72 (84) 10/26/20 17:00 99 16 96/43 (60) 100 10/26/20 16:10 102/30 10/26/20 16:00 30 10/26/20 16:00 Bi-pap 10/26/20 16:00 94 10/26/20 16:00 96.8 104 17 102/30 (54) 96 10/26/20 15:46 114 17 100 Bi-Pap 30 10/26/20 15:42 114 17 100 30 10/26/20 15:00 123 22 99/45 (63) 88 10/26/20 14:00 103 17 91/53 (66) 100 10/26/20 13:00 102 16 74/44 (54) 100 10/26/20 12:00 96.8 106 16 95/57 (70) 10/26/20 12:00 Nasal Cannula 2.0 10/26/20 12:00 105 10/26/20 11:15 114 23 100/77 (85) 99 10/26/20 11:14 88/42 10/26/20 11:00 104 21 66/49 (55) 100 10/26/20 10:00 107 18 86/55 (65) 95 10/26/20 09:00 Nasal Cannula 3.0 10/26/20 09:00 96 18 88/42 (57) 98 10/26/20 08:00 96.5 118 22 104/64 (77) 92 10/26/20 08:00 97 10/26/20 07:00 103 18 82/58 (66) 92 10/26/20 06:30 112 19 87/62 (70) 95 10/26/20 06:00 115 24 97/69 (78) 87 10/26/20 05:30 109 20 99/57 (71) 94 10/26/20 05:00 98 17 81/47 (58) 99 10/26/20 04:53 110/93 10/26/20 04:30 108 22 100/57 (71) 100 10/26/20 04:00 97.5 99 16 95/42 (59) 100 10/26/20 04:00 91 10/26/20 03:30 93 16 91/50 (64) 100 10/26/20 03:00 88 17 88/44 (59) 100 10/26/20 02:30 95 16 91/43 (59) 100 10/26/20 02:00 87 16 71/33 (46) 100 10/26/20 01:45 94 16 85/34 (51) 100 10/26/20 01:30 93 16 88/45 (59) 100 10/26/20 01:00 110 21 103/51 (68) 96 10/26/20 00:30 96 22 98/45 (62) 99 10/26/20 00:00 97.6 95 21 107/49 (68) 100 10/26/20 00:00 99 10/25/20 23:30 100 21 99/53 (68) 100 10/25/20 23:00 100 24 107/74 (85) 100 10/25/20 22:30 97 23 94/45 (61) 98 10/25/20 22:00 84 17 91/41 (58) 99 10/25/20 21:30 85 17 85/41 (56) 95 10/25/20 21:00 Nasal Cannula 2.0 10/25/20 21:00 91 21 103/50 (67) 98 10/25/20 20:30 98 24 102/55 (71) 99 Intake and Output 10/25/20 10/26/20 19:00 07:00 Intake Total 400 ml 1324.815 ml Output Total 120 ml 50 ml Balance 280 ml 1274.815 ml Free Water 120 ml IV Total 400 ml 1204.815 ml Output Urine Total 120 ml 50 ml Laboratory Tests 10/26/20 02:04: POC Whole Blood Glucose 150H 10/26/20 04:33: White Blood Count 8.2, Red Blood Count 3.02L, Hemoglobin 9.1L, Hematocrit 30.0L, Mean Corpuscular Volume 100H, Mean Corpuscular Hemoglobin 30.1, Mean Corpuscular Hemoglobin Concent 30.3L, Red Cell Distribution Width 19.9H, Platelet Count 176, Mean Platelet Volume 8.1, Neutrophils (%) (Auto) , Lymphocytes (%) (Auto) , Monocytes (%) (Auto) , Eosinophils (%) (Auto) , Basophils (%) (Auto) , Differential Total Cells Counted 100, Neutrophils % (Manual) 88H, Lymphocytes % (Manual) 6L, Monocytes % (Manual) 6, Eosinophils % (Manual) 0, Basophils % (Manual) 0, Band Neutrophils 0, Platelet Estimate Adequate, Platelet Morphology Normal, Hypochromasia 1+, Anisocytosis 1+, Macrocytosis 1+, Ovalocytes Occasional, Sodium Level 135L, Potassium Level 3.8, Chloride Level 102, Carbon Dioxide Level 26, Anion Gap 7, Blood Urea Nitrogen 33H, Creatinine 2.1H, Estimat Glomerular Filtration Rate 22.5, Glucose Level 180H, Lactic Acid Level 0.60, Uric Acid 8.2H, Calcium Level 7.6L, Phosphorus Level 4.2, Magnesium Level 2.1, Total Bilirubin 0.4, Aspartate Amino Transf (AST/SGOT) 9L, Alanine Aminotransferase (ALT/SGPT) < 6L, Alkaline Phosphatase 85, Troponin I 0.179H, Total Protein 5.4L, Albumin 2.6L, Globulin 2.8, Albumin/Globulin Ratio 0.9L 10/26/20 05:21: POC Whole Blood Glucose 165H 10/26/20 14:44: Arterial Blood pH 7.081*L, Arterial Blood Partial Pressure CO2 86.3*H, Arterial Blood Partial Pressure O2 90.7, Arterial Blood HCO3 25.1, Arterial Blood Oxygen Saturation 95.4, Arterial Blood Base Excess -5.7L, Gallo Test Positive 10/26/20 19:21: Arterial Blood pH 7.194*L, Arterial Blood Partial Pressure CO2 59.7*H, Arterial Blood Partial Pressure O2 111.0H, Arterial Blood HCO3 22.5, Arterial Blood Oxygen Saturation 97.3, Arterial Blood Base Excess -5.9L, Gallo Test Positive Height (Feet): 5 Height (Inches): 0.00 Weight (Pounds): 145 Assessment/Plan Problem List: (1) Anemia ICD Codes: D64.9 - Anemia, unspecified SNOMED: 257907123 (2) Acute kidney injury ICD Codes: N17.9 - Acute kidney failure, unspecified SNOMED: 79668151, 3857528 (3) Atrial fibrillation ICD Codes: I48.91 - Unspecified atrial fibrillation SNOMED: 62521211 (4) Elevated troponin ICD Codes: R77.8 - Other specified abnormalities of plasma proteins SNOMED: 428885841, 875909252, 536356242 (5) Malnutrition ICD Codes: E46 - Unspecified protein-calorie malnutrition SNOMED: 59934130 (6) Pneumonia due to COVID-19 virus ICD Codes: U07.1 - COVID-19; J12.82 - Pneumonia due to coronavirus disease 2019 SNOMED: 753400355372211837 (7) Hypothyroidism ICD Codes: E03.9 - Hypothyroidism, unspecified SNOMED: 85881717 Status: progressing Assessment/Plan: s/p on pressors transfer to icu a fib w rvr azotemia covid + check trop reviewed chart and labs poor prognosis Neri Dumont MD Oct 26, 2020 20:20
[2020-10-26] MEDS: Dyna-Hex 2% Top Sol 2oz TOPIC SCH (20:28)
[2020-10-27] VITALS (35 sets, daily range): BP systolic 89–151; BP diastolic 44–111
--- NOTE | 2020-10-27 | NUR ---
NURSE NOTES: bs183 no insulin coverage
[2020-10-27] MEDS: Piperacillin/Tazobactam 3.375 GM in NS 110 ML IVPB SCH ×2 (02:11→14:44)
[2020-10-27] MEDS: Norepinephrine 4mg/NS Premix 250 ML IV PRN ×3 (03:58→18:05)
[2020-10-27] MEDS: D5NS 1,000 ML IV SCH ×3 (03:59→23:47)
--- NOTE | 2020-10-27 04:00 | NUR ---
NURSE NOTES: complete bed bath oral care back care done Addendum: 10/27/20 at 0512 by TAYLOR JJ RN Amended: Links added.
[2020-10-27 05:31] LABS: HEMATOCRIT 27.9 % (37.0-47.0); HEMOGLOBIN 8.6 G/DL (12.0-16.0); MEAN CORPUSCULAR VOLUME 99 FL (80-99); PLATELET COUNT 161 K/UL (150-450); RED BLOOD COUNT 2.83 M/UL (4.20-5.40); RED CELL DISTRIBUTION WIDTH 19.8 % (11.6-14.8); WHITE BLOOD COUNT 5.5 K/UL (4.8-10.8)
[2020-10-27] MEDS: Midodrine 10mg tab GT SCH ×3 (05:47→22:07)
[2020-10-27] MEDS: Hydrocortisone 100mg Inj IV SCH ×3 (05:47→22:07)
[2020-10-27 05:52] LABS: ALANINE AMINOTRANSFERASE 10 U/L (12-78); ALBUMIN 2.3 G/DL (3.4-5.0); ALBUMIN/GLOBULIN RATIO 0.8 (1.0-2.7); ALKALINE PHOSPHATASE 88 U/L (46-116); ANION GAP 8 mmol/L (5-15); ASPARTATE AMINO TRANSFERASE 8 U/L (15-37); BILIRUBIN,TOTAL 0.3 MG/DL (0.2-1.0); BLOOD UREA NITROGEN 36 mg/dL (7-18); CALCIUM 7.4 MG/DL (8.5-10.1); CARBON DIOXIDE 24 MMOL/L (21-32); CHLORIDE 104 MMOL/L (98-107); CREATININE 2.3 MG/DL (0.55-1.30); PHOSPHORUS 3.9 MG/DL (2.5-4.9); POTASSIUM 3.7 MMOL/L (3.5-5.1); SODIUM 136 MMOL/L (136-145)
--- NOTE | 2020-10-27 06:00 | NUR ---
NURSE NOTES: bs 150 no insulin coverage
--- NOTE | 2020-10-27 06:44 | Hematology/Onc Progress Note ---
Assessment/Plan Assessment/Plan Assessment and recs # Anemia r/o gi bleed --> anemia panel has been ordered-->reviewed --> hgb 8.1->9.3->9.7-->9.5-->10.5-->10.2-->9.1->8.6 --> no hemolysis is noted --> transfuse on prn basis # Thrombocytopenia likely due to reactive process --> plt 138-->149-->176 --> imaging prn --> viral w/u neg # Hypercoag disorder with Atrial fibrillation --> consider anticoag as per cards --> if bleeding, consider hold anticoag # Elevated trop --> per cards # Hyperkalemia --> per renal # Acute kidney injury --> per renal # Resp failure on bipap # Recently COVID-19 positive # Dvt ppx scds --> lovenox sq Appreciate consultation and rosio rn Subjective Allergies: Coded Allergies: No Known Allergies (Unverified , 10/17/20) All Systems: reviewed and negative except above Subjective 10/19 cbc is pending, did get blood transfusion last night, pending results 10/20 meds noted, no bleeding, labs reviewed, rosio rn, no new changes 10/21 on 4l nc, has been refusing labs, meds noted, no bleeding 10/22 nc, refusing meds labs reviewed, rosio rn 10/23 is potentially for egd this am, no bleeding, cbc is noted 10/25 meds noted, no bleeidng, is on nc, no night sweats, bp bolus pending 10/26 bed bath done, meds noted, no bleeding, cbc reviewed from am 10/27 lethargic, on bipap, levophed, meds reviewed Objective Objective Current Medications Medications (Trade) Dose Ordered Sig/Yolanda Route PRN Reason Start Time Stop Time Status Last Admin Dose Admin Acetaminophen (Tylenol) 500 mg Q6HR PRN ORAL Mild Pain 1-3 10/17/20 17:45 11/16/20 17:44 Acetaminophen (Tylenol) 500 mg Q6HR PRN ORAL fever >100 10/17/20 18:00 11/16/20 17:59 Acetaminophen (Tylenol) 650 mg Q4H PRN ORAL Pain Scale (6-10) 10/17/20 19:15 11/16/20 19:14 Apixaban (Eliquis) 2.5 mg BID ORAL 10/24/20 18:00 01/22/21 17:59 10/26/20 17:03 Chlorhexidine Gluconate (Eve-Hex 2%) 1 applic DAILY@2000 TOPIC 10/22/20 20:00 01/20/21 19:59 10/26/20 20:28 Dextrose/Sodium Chloride 1,000 ml @ 100 mls/hr Q10H IV 10/25/20 12:00 11/24/20 11:59 10/27/20 03:59 Docusate Sodium (Colace) 10 mg THREE TIMES A DAY GT 10/25/20 18:00 11/24/20 17:59 10/26/20 17:03 Hydrocortisone (Solu-CORTEF) 100 mg EVERY 8 HOURS IV 10/26/20 14:00 10/27/20 22:01 10/27/20 05:47 Levothyroxine Sodium (Synthroid) 50 mcg DAILY@0630 ORAL 10/19/20 06:30 11/18/20 06:29 10/27/20 05:47 Midodrine (Pro-Amatine) 10 mg Q8HR GT 10/26/20 14:00 01/16/21 13:59 10/27/20 05:47 Norepinephrine Bitartrate 250 ml @ 0 mls/hr Q24H PRN IV . 10/26/20 11:09 10/29/20 11:08 10/27/20 03:58 Ondansetron HCl (Zofran) 4 mg Q6H PRN IVP Nausea & Vomiting 10/17/20 21:15 11/16/20 21:14 Pantoprazole (Protonix) 40 mg EVERY 12 HOURS IVP 10/26/20 21:00 11/25/20 20:59 10/26/20 20:28 Piperacillin Sod/ Tazobactam Sod 3.375 gm/Sodium Chloride 110 ml @ 27.5 mls/hr Q12H IVPB 10/26/20 14:00 11/02/20 13:59 10/27/20 02:11 Last 24 Hour Vital Signs Date Time Temp Pulse Resp B/P (MAP) Pulse Ox O2 Delivery O2 Flow Rate FiO2 10/27/20 06:00 116 23 102/70 (81) 10/27/20 05:30 118 23 129/92 (104) 100 10/27/20 05:00 99 18 92/47 (62) 10/27/20 04:30 102 22 89/48 (62) 100 10/27/20 04:00 Bi-pap 10/27/20 04:00 105 10/27/20 04:00 30 10/27/20 04:00 98.5 112 26 116/66 (83) 100 10/27/20 03:58 116/84 10/27/20 03:30 106 23 110/66 (81) 100 10/27/20 03:12 70 21 94 30 10/27/20 03:00 108 23 126/68 (87) 99 10/27/20 02:30 112 24 108/80 (89) 10/27/20 02:00 116 23 124/94 (104) 10/27/20 01:30 123 25 143/106 (118) 100 10/27/20 01:00 120 24 127/84 (98) 10/27/20 00:30 116 23 126/96 (106) 10/27/20 00:00 112 10/27/20 00:00 123 24 126/104 (111) 100 10/27/20 00:00 30 10/27/20 00:00 Bi-pap 10/26/20 23:30 98.6 112 21 144/98 (113) 100 10/26/20 23:00 122 22 93/74 (80) 98 10/26/20 22:52 117 23 148/124 (132) 96 10/26/20 22:48 105 19 98 30 10/26/20 22:30 104 20 84/53 (63) 100 10/26/20 22:10 84/40 10/26/20 22:00 103 21 83/42 (56) 10/26/20 21:30 96 18 115/56 (75) 100 10/26/20 21:00 100 17 106/36 (59) 100 10/26/20 20:30 107 17 131/66 (87) 100 10/26/20 20:00 30 10/26/20 20:00 94 10/26/20 20:00 Bi-pap 10/26/20 20:00 97.8 116 22 160/90 (113) 100 10/26/20 19:30 98 21 85/48 (60) 99 10/26/20 19:17 124 21 95 30 10/26/20 19:00 95 17 116/62 (80) 99 10/26/20 18:00 116 20 108/72 (84) 10/26/20 17:00 99 16 96/43 (60) 100 10/26/20 16:10 102/30 10/26/20 16:00 30 10/26/20 16:00 Bi-pap 10/26/20 16:00 94 10/26/20 16:00 96.8 104 17 102/30 (54) 96 10/26/20 15:46 114 17 100 Bi-Pap 30 10/26/20 15:42 114 17 100 30 10/26/20 15:00 123 22 99/45 (63) 88 10/26/20 14:00 103 17 91/53 (66) 100 10/26/20 13:00 102 16 74/44 (54) 100 10/26/20 12:00 96.8 106 16 95/57 (70) 10/26/20 12:00 Nasal Cannula 2.0 10/26/20 12:00 105 10/26/20 11:15 114 23 100/77 (85) 99 10/26/20 11:14 88/42 10/26/20 11:00 104 21 66/49 (55) 100 10/26/20 10:00 107 18 86/55 (65) 95 10/26/20 09:00 Nasal Cannula 3.0 10/26/20 09:00 96 18 88/42 (57) 98 10/26/20 08:00 96.5 118 22 104/64 (77) 92 10/26/20 08:00 97 10/26/20 07:00 103 18 82/58 (66) 92 10/26/20 06:30 112 19 87/62 (70) 95 10/26/20 06:00 115 24 97/69 (78) 87 10/26/20 05:30 109 20 99/57 (71) 94 10/26/20 05:00 98 17 81/47 (58) 99 10/26/20 04:53 110/93 10/26/20 04:30 108 22 100/57 (71) 100 10/26/20 04:00 97.5 99 16 95/42 (59) 100 10/26/20 04:00 91 10/26/20 03:30 93 16 91/50 (64) 100 10/26/20 03:00 88 17 88/44 (59) 100 10/26/20 02:30 95 16 91/43 (59) 100 10/26/20 02:00 87 16 71/33 (46) 100 10/26/20 01:45 94 16 85/34 (51) 100 10/26/20 01:30 93 16 88/45 (59) 100 10/26/20 01:00 110 21 103/51 (68) 96 10/26/20 00:30 96 22 98/45 (62) 99 10/26/20 00:00 97.6 95 21 107/49 (68) 100 10/26/20 00:00 99 10/25/20 23:30 100 21 99/53 (68) 100 10/25/20 23:00 100 24 107/74 (85) 100 10/25/20 22:30 97 23 94/45 (61) 98 10/25/20 22:00 84 17 91/41 (58) 99 10/25/20 21:30 85 17 85/41 (56) 95 10/25/20 21:00 Nasal Cannula 2.0 10/25/20 21:00 91 21 103/50 (67) 98 10/25/20 20:30 98 24 102/55 (71) 99 10/25/20 20:00 97.5 86 16 98/46 (63) 92 10/25/20 20:00 85 10/25/20 19:30 80 18 89/45 (60) 97 10/25/20 19:14 76/58 10/25/20 19:00 80 18 75/34 (48) 94 10/25/20 16:00 93 10/25/20 16:00 94 24 96/58 (71) 98 10/25/20 15:00 85 20 72/39 (50) 96 10/25/20 12:00 98 10/25/20 12:00 97.9 20 95/47 (63) 10/25/20 09:00 Nasal Cannula 2.0 10/25/20 09:00 125 75/33 10/25/20 08:00 119 10/25/20 07:59 97.9 20 77/36 (50) Intake and Output 10/26/20 10/27/20 19:00 07:00 Intake Total 1942.5 ml 1857.5 ml Output Total 110 ml 240 ml Balance 1832.5 ml 1617.5 ml Free Water 50 ml 80 ml IV Total 1832.5 ml 1507.5 ml Tube Feeding 60 ml 270 ml Output Urine Total 110 ml 240 ml Labs Test 10/24/20 10:41 10/24/20 12:15 10/24/20 16:18 10/25/20 00:43 Arterial Blood pH 7.295 (7.350-7.450) Arterial Blood Partial Pressure CO2 59.0 mmHg (35.0-45.0) Arterial Blood Partial Pressure O2 135.6 mmHg (75.0-100.0) Arterial Blood HCO3 28.1 mmol/L (22.0-26.0) Arterial Blood Oxygen Saturation 98.3 % (95-100) Arterial Blood Base Excess 0.9 (-2-2) Gallo Test Positive POC Whole Blood Glucose 106 MG/DL (74-106) 109 MG/DL (74-106) 121 MG/DL (74-106) Test 10/25/20 08:45 10/25/20 12:31 10/25/20 13:28 10/26/20 02:04 White Blood Count 6.8 K/UL (4.8-10.8) Red Blood Count 3.39 M/UL (4.20-5.40) Hemoglobin 10.2 G/DL (12.0-16.0) Hematocrit 32.8 % (37.0-47.0) Mean Corpuscular Volume 97 FL (80-99) Mean Corpuscular Hemoglobin 29.9 PG (27.0-31.0) Mean Corpuscular Hemoglobin Concent 31.0 G/DL (32.0-36.0) Red Cell Distribution Width 18.9 % (11.6-14.8) Platelet Count 148 K/UL (150-450) Mean Platelet Volume 8.3 FL (6.5-10.1) Neutrophils (%) (Auto) % (45.0-75.0) Lymphocytes (%) (Auto) % (20.0-45.0) Monocytes (%) (Auto) % (1.0-10.0) Eosinophils (%) (Auto) % (0.0-3.0) Basophils (%) (Auto) % (0.0-2.0) Differential Total Cells Counted 100 Neutrophils % (Manual) 72 % (45-75) Lymphocytes % (Manual) 14 % (20-45) Monocytes % (Manual) 6 % (1-10) Eosinophils % (Manual) 0 % (0-3) Basophils % (Manual) 0 % (0-2) Band Neutrophils 8 % (0-8) Platelet Estimate Decreased Platelet Morphology Normal Anisocytosis 1+ Sodium Level 137 MMOL/L (136-145) Potassium Level 3.9 MMOL/L (3.5-5.1) Chloride Level 103 MMOL/L (98-107) Carbon Dioxide Level 28 MMOL/L (21-32) Anion Gap 6 mmol/L (5-15) Blood Urea Nitrogen 36 mg/dL (7-18) Creatinine 2.1 MG/DL (0.55-1.30) Estimat Glomerular Filtration Rate 22.5 mL/min (>60) Glucose Level 149 MG/DL (74-106) Calcium Level 7.8 MG/DL (8.5-10.1) Phosphorus Level 3.0 MG/DL (2.5-4.9) Magnesium Level 1.9 MG/DL (1.8-2.4) Total Bilirubin 0.5 MG/DL (0.2-1.0) Aspartate Amino Transf (AST/SGOT) 11 U/L (15-37) Alanine Aminotransferase (ALT/SGPT) 7 U/L (12-78) Alkaline Phosphatase 86 U/L (46-116) C-Reactive Protein, Quantitative 4.4 mg/dL (0.00-0.90) Pro-B-Type Natriuretic Peptide > 96302 pg/mL (0-125) Total Protein 5.5 G/DL (6.4-8.2) Albumin 2.3 G/DL (3.4-5.0) Globulin 3.2 g/dL Albumin/Globulin Ratio 0.7 (1.0-2.7) Arterial Blood pH 7.240 (7.350-7.450) Arterial Blood Partial Pressure CO2 62.7 mmHg (35.0-45.0) Arterial Blood Partial Pressure O2 150.2 mmHg (75.0-100.0) Arterial Blood HCO3 26.3 mmol/L (22.0-26.0) Arterial Blood Oxygen Saturation 98.4 % (95-100) Arterial Blood Base Excess -1.6 (-2-2) Gallo Test Positive POC Whole Blood Glucose 148 MG/DL (74-106) 150 MG/DL (74-106) Test 10/26/20 04:33 10/26/20 05:21 10/26/20 14:44 10/26/20 19:21 White Blood Count 8.2 K/UL (4.8-10.8) Red Blood Count 3.02 M/UL (4.20-5.40) Hemoglobin 9.1 G/DL (12.0-16.0) Hematocrit 30.0 % (37.0-47.0) Mean Corpuscular Volume 100 FL (80-99) Mean Corpuscular Hemoglobin 30.1 PG (27.0-31.0) Mean Corpuscular Hemoglobin Concent 30.3 G/DL (32.0-36.0) Red Cell Distribution Width 19.9 % (11.6-14.8) Platelet Count 176 K/UL (150-450) Mean Platelet Volume 8.1 FL (6.5-10.1) Neutrophils (%) (Auto) % (45.0-75.0) Lymphocytes (%) (Auto) % (20.0-45.0) Monocytes (%) (Auto) % (1.0-10.0) Eosinophils (%) (Auto) % (0.0-3.0) Basophils (%) (Auto) % (0.0-2.0) Differential Total Cells Counted 100 Neutrophils % (Manual) 88 % (45-75) Lymphocytes % (Manual) 6 % (20-45) Monocytes % (Manual) 6 % (1-10) Eosinophils % (Manual) 0 % (0-3) Basophils % (Manual) 0 % (0-2) Band Neutrophils 0 % (0-8) Platelet Estimate Adequate Platelet Morphology Normal Hypochromasia 1+ Anisocytosis 1+ Macrocytosis 1+ Ovalocytes Occasional Sodium Level 135 MMOL/L (136-145) Potassium Level 3.8 MMOL/L (3.5-5.1) Chloride Level 102 MMOL/L (98-107) Carbon Dioxide Level 26 MMOL/L (21-32) Anion Gap 7 mmol/L (5-15) Blood Urea Nitrogen 33 mg/dL (7-18) Creatinine 2.1 MG/DL (0.55-1.30) Estimat Glomerular Filtration Rate 22.5 mL/min (>60) Glucose Level 180 MG/DL (74-106) Lactic Acid Level 0.60 mmol/L (0.4-2.0) Uric Acid 8.2 MG/DL (2.6-7.2) Calcium Level 7.6 MG/DL (8.5-10.1) Phosphorus Level 4.2 MG/DL (2.5-4.9) Magnesium Level 2.1 MG/DL (1.8-2.4) Total Bilirubin 0.4 MG/DL (0.2-1.0) Aspartate Amino Transf (AST/SGOT) 9 U/L (15-37) Alanine Aminotransferase (ALT/SGPT) < 6 U/L (12-78) Alkaline Phosphatase 85 U/L (46-116) Troponin I 0.179 ng/mL (0.000-0.056) Total Protein 5.4 G/DL (6.4-8.2) Albumin 2.6 G/DL (3.4-5.0) Globulin 2.8 g/dL Albumin/Globulin Ratio 0.9 (1.0-2.7) POC Whole Blood Glucose 165 MG/DL (74-106) Arterial Blood pH 7.081 (7.350-7.450) 7.194 (7.350-7.450) Arterial Blood Partial Pressure CO2 86.3 mmHg (35.0-45.0) 59.7 mmHg (35.0-45.0) Arterial Blood Partial Pressure O2 90.7 mmHg (75.0-100.0) 111.0 mmHg (75.0-100.0) Arterial Blood HCO3 25.1 mmol/L (22.0-26.0) 22.5 mmol/L (22.0-26.0) Arterial Blood Oxygen Saturation 95.4 % (95-100) 97.3 % (95-100) Arterial Blood Base Excess -5.7 (-2-2) -5.9 (-2-2) Gallo Test Positive Positive Test 10/27/20 04:25 White Blood Count 5.5 K/UL (4.8-10.8) Red Blood Count 2.83 M/UL (4.20-5.40) Hemoglobin 8.6 G/DL (12.0-16.0) Hematocrit 27.9 % (37.0-47.0) Mean Corpuscular Volume 99 FL (80-99) Mean Corpuscular Hemoglobin 30.3 PG (27.0-31.0) Mean Corpuscular Hemoglobin Concent 30.7 G/DL (32.0-36.0) Red Cell Distribution Width 19.8 % (11.6-14.8) Platelet Count 161 K/UL (150-450) Mean Platelet Volume 7.8 FL (6.5-10.1) Neutrophils (%) (Auto) % (45.0-75.0) Lymphocytes (%) (Auto) % (20.0-45.0) Monocytes (%) (Auto) % (1.0-10.0) Eosinophils (%) (Auto) % (0.0-3.0) Basophils (%) (Auto) % (0.0-2.0) Sodium Level 136 MMOL/L (136-145) Potassium Level 3.7 MMOL/L (3.5-5.1) Chloride Level 104 MMOL/L (98-107) Carbon Dioxide Level 24 MMOL/L (21-32) Anion Gap 8 mmol/L (5-15) Blood Urea Nitrogen 36 mg/dL (7-18) Creatinine 2.3 MG/DL (0.55-1.30) Estimat Glomerular Filtration Rate 20.3 mL/min (>60) Glucose Level 195 MG/DL (74-106) Uric Acid 8.2 MG/DL (2.6-7.2) Calcium Level 7.4 MG/DL (8.5-10.1) Phosphorus Level 3.9 MG/DL (2.5-4.9) Magnesium Level 1.8 MG/DL (1.8-2.4) Total Bilirubin 0.3 MG/DL (0.2-1.0) Aspartate Amino Transf (AST/SGOT) 8 U/L (15-37) Alanine Aminotransferase (ALT/SGPT) 10 U/L (12-78) Alkaline Phosphatase 88 U/L (46-116) C-Reactive Protein, Quantitative 3.6 mg/dL (0.00-0.90) Pro-B-Type Natriuretic Peptide > 70806 pg/mL (0-125) Total Protein 5.2 G/DL (6.4-8.2) Albumin 2.3 G/DL (3.4-5.0) Globulin 2.9 g/dL Albumin/Globulin Ratio 0.8 (1.0-2.7) Height (Feet): 5 Height (Inches): 0.00 Weight (Pounds): 145 Objective Physical Exam General: Awake and alert, no acute distress HEENT: NC/AT. EOMI. Cardiovascular: Irregularly irregular rhythm. Normal heart rate Resp: Normal work of breathing. + bipap Abdomen: Abdomen is soft, nondistended. Nontender Skin: Intact. No abrasions, laceration or rash over the exposed skin MSK: Normal tone and bulk. Moving all extremities. No obvious deformity. Neuro: Awake and alert. Mentating appropriately. Hawk Ma MD Oct 27, 2020 06:44
--- NOTE | 2020-10-27 07:10 | NUR ---
RESPIRATORY NOTE: Received pt on BIPAP 15/5, backup rate 12, 30% FiO2. SpO2 100% on current settings. Pt is lethargic. B/s are diminished throughout with equal chest rise. BIPAP plugged in to red outlet. Alarms are on and audible. No s/s of respiratory distress noted at this time. Will continue to closely monitor.
--- NOTE | 2020-10-27 07:18 | NUR ---
NURSE HAND-OFF REPORT: Latest Vital Signs: Temperature 98.5 , Pulse 129 , B/P 151 /82 , Respiratory Rate 29 , O2 SAT 100 , Simple Mask, O2 Flow Rate 2.0 . Vital Sign Comment: EKG Rhythm: Atrial Fibrillation Rhythm change?: N MD Notified?: - MD Response: Latest Elizabeth Fall Score: 70 Fall Risk: High Risk Safety Measures: Call light Within Reach, Bed Alarm Zone 1, Side Rails Side Rails x3, Bed position Low and Locked. Fall Precautions: Yellow Socks Patient Fall Education Report given to angel eugene using sbar.
--- NOTE | 2020-10-27 07:29 | Cardiac Electrophysiology PN ---
Assessment/Plan Assessment/Plan 1. NSTEMI with elevated troponin of more than 0.2. Patient has hx of prior TX as well The level has come down to 0.19, but the levels are flat and likely due to renal failure as the creatinine is 2.1. On aspirin and off Lopressor as hypotensive on Levophed 2. Atrial fibrillation with rapid ventricular response. Off Lopressor as BP in 70s. On Eliquis 2.5 bid 3. Questionable bradycardia. The heart rate has been in the 80s and 90s. It is possible that they could not record the heart beat in view of the patient's atrial fibrillation. 4. Septic shock. BP in 70s. off Lopressor. Got 1 liter of NS. Got central line. On Levophed 6 Mcg 5. Renal insufficiency.Cr still 2.1 6. Status post COVID pneumonia, was tested positive more than two weeks ago Now is negative 7. Dysphagia, S/P PEG 10/23/20 [address] Full code. DW Dr Gómez and Julia Subjective Subjective Off Covid isolation. Atrial fib rate controlled in 80s S/P PEG by Dr Tobar 10/23/20 BP dropped to 70-s and underwent central line placement. In ICU on Levophed decreased from 14 Mcg to 6 Mcg. Covid negative 10/25 On BIPAP 08/01 Objective Last 24 Hour Vital Signs Date Time Temp Pulse Resp B/P (MAP) Pulse Ox O2 Delivery O2 Flow Rate FiO2 10/27/20 07:00 129 29 151/82 (105) 10/27/20 06:30 105 23 125/111 (116) 100 10/27/20 06:00 116 23 102/70 (81) 10/27/20 05:30 118 23 129/92 (104) 100 10/27/20 05:00 99 18 92/47 (62) 10/27/20 04:30 102 22 89/48 (62) 100 10/27/20 04:00 Bi-pap 10/27/20 04:00 105 10/27/20 04:00 30 10/27/20 04:00 98.5 112 26 116/66 (83) 100 10/27/20 03:58 116/84 10/27/20 03:30 106 23 110/66 (81) 100 10/27/20 03:12 70 21 94 30 10/27/20 03:00 108 23 126/68 (87) 99 10/27/20 02:30 112 24 108/80 (89) 10/27/20 02:00 116 23 124/94 (104) 10/27/20 01:30 123 25 143/106 (118) 100 10/27/20 01:00 120 24 127/84 (98) 10/27/20 00:30 116 23 126/96 (106) 10/27/20 00:00 112 10/27/20 00:00 123 24 126/104 (111) 100 10/27/20 00:00 30 10/27/20 00:00 Bi-pap 10/26/20 23:30 98.6 112 21 144/98 (113) 100 10/26/20 23:00 122 22 93/74 (80) 98 10/26/20 22:52 117 23 148/124 (132) 96 10/26/20 22:48 105 19 98 30 10/26/20 22:30 104 20 84/53 (63) 100 10/26/20 22:10 84/40 10/26/20 22:00 103 21 83/42 (56) 10/26/20 21:30 96 18 115/56 (75) 100 10/26/20 21:00 100 17 106/36 (59) 100 10/26/20 20:30 107 17 131/66 (87) 100 10/26/20 20:00 30 10/26/20 20:00 94 10/26/20 20:00 Bi-pap 10/26/20 20:00 97.8 116 22 160/90 (113) 100 10/26/20 19:30 98 21 85/48 (60) 99 10/26/20 19:17 124 21 95 30 10/26/20 19:00 95 17 116/62 (80) 99 10/26/20 18:00 116 20 108/72 (84) 10/26/20 17:00 99 16 96/43 (60) 100 10/26/20 16:10 102/30 10/26/20 16:00 30 10/26/20 16:00 Bi-pap 10/26/20 16:00 94 10/26/20 16:00 96.8 104 17 102/30 (54) 96 10/26/20 15:46 114 17 100 Bi-Pap 30 10/26/20 15:42 114 17 100 30 10/26/20 15:00 123 22 99/45 (63) 88 10/26/20 14:00 103 17 91/53 (66) 100 10/26/20 13:00 102 16 74/44 (54) 100 10/26/20 12:00 96.8 106 16 95/57 (70) 10/26/20 12:00 Nasal Cannula 2.0 10/26/20 12:00 105 10/26/20 11:15 114 23 100/77 (85) 99 10/26/20 11:14 88/42 10/26/20 11:00 104 21 66/49 (55) 100 10/26/20 10:00 107 18 86/55 (65) 95 10/26/20 09:00 Nasal Cannula 3.0 10/26/20 09:00 96 18 88/42 (57) 98 10/26/20 08:00 96.5 118 22 104/64 (77) 92 10/26/20 08:00 97 Intake and Output 10/26/20 10/27/20 19:00 07:00 Intake Total 1942.5 ml 1995.0 ml Output Total 110 ml 240 ml Balance 1832.5 ml 1755.0 ml Free Water 50 ml 80 ml IV Total 1832.5 ml 1645.0 ml Tube Feeding 60 ml 270 ml Output Urine Total 110 ml 240 ml Laboratory Tests Test 10/26/20 14:44 10/26/20 19:21 10/27/20 04:25 Arterial Blood pH 7.081 (7.350-7.450) 7.194 (7.350-7.450) Arterial Blood Partial Pressure CO2 86.3 mmHg (35.0-45.0) *H 59.7 mmHg (35.0-45.0) *H Arterial Blood Partial Pressure O2 90.7 mmHg (75.0-100.0) 111.0 mmHg (75.0-100.0) H Arterial Blood HCO3 25.1 mmol/L (22.0-26.0) 22.5 mmol/L (22.0-26.0) Arterial Blood Oxygen Saturation 95.4 % (95-100) 97.3 % (95-100) Arterial Blood Base Excess -5.7 (-2-2) L -5.9 (-2-2) L Gallo Test Positive Positive White Blood Count 5.5 K/UL (4.8-10.8) Red Blood Count 2.83 M/UL (4.20-5.40) L Hemoglobin 8.6 G/DL (12.0-16.0) L Hematocrit 27.9 % (37.0-47.0) L Mean Corpuscular Volume 99 FL (80-99) Mean Corpuscular Hemoglobin 30.3 PG (27.0-31.0) Mean Corpuscular Hemoglobin Concent 30.7 G/DL (32.0-36.0) L Red Cell Distribution Width 19.8 % (11.6-14.8) H Platelet Count 161 K/UL (150-450) Mean Platelet Volume 7.8 FL (6.5-10.1) Neutrophils (%) (Auto) % (45.0-75.0) Lymphocytes (%) (Auto) % (20.0-45.0) Monocytes (%) (Auto) % (1.0-10.0) Eosinophils (%) (Auto) % (0.0-3.0) Basophils (%) (Auto) % (0.0-2.0) Neutrophils % (Manual) Pending Lymphocytes % (Manual) Pending Platelet Estimate Pending Platelet Morphology Pending Sodium Level 136 MMOL/L (136-145) Potassium Level 3.7 MMOL/L (3.5-5.1) Chloride Level 104 MMOL/L (98-107) Carbon Dioxide Level 24 MMOL/L (21-32) Anion Gap 8 mmol/L (5-15) Blood Urea Nitrogen 36 mg/dL (7-18) H Creatinine 2.3 MG/DL (0.55-1.30) H Estimat Glomerular Filtration Rate 20.3 mL/min (>60) Glucose Level 195 MG/DL (74-106) H Uric Acid 8.2 MG/DL (2.6-7.2) H Calcium Level 7.4 MG/DL (8.5-10.1) L Phosphorus Level 3.9 MG/DL (2.5-4.9) Magnesium Level 1.8 MG/DL (1.8-2.4) Total Bilirubin 0.3 MG/DL (0.2-1.0) Aspartate Amino Transf (AST/SGOT) 8 U/L (15-37) L Alanine Aminotransferase (ALT/SGPT) 10 U/L (12-78) L Alkaline Phosphatase 88 U/L (46-116) C-Reactive Protein, Quantitative 3.6 mg/dL (0.00-0.90) H Pro-B-Type Natriuretic Peptide > 33655 pg/mL (0-125) H Total Protein 5.2 G/DL (6.4-8.2) L Albumin 2.3 G/DL (3.4-5.0) L Globulin 2.9 g/dL Albumin/Globulin Ratio 0.8 (1.0-2.7) L Microbiology Date/Time Source Procedure Growth Status 10/25/20 15:40 Nasopharynx SARS-CoV-2 Antigen (Rapid)(DIAZ) - Final Complete Objective HEAD AND NECK: No JVD.On BIPAP LUNGS: Decreased breath sounds. CARDIOVASCULAR: Irregular S1 and S2 with no gallop. ABDOMEN: Soft.S/P PEG EXTREMITIES: No pitting edema. Terry Reyes MD Oct 27, 2020 07:29
--- NOTE | 2020-10-27 07:34 | NUR ---
NURSE NOTES: Received report from Salome HILL.
[2020-10-27] MEDS: Docusate 100mg/10ml Liq GT SCH ×3 (08:28→18:04)
[2020-10-27] MEDS: Eliquis 2.5mg tablet ORAL SCH ×2 (08:29→18:04)
[2020-10-27] MEDS: Pantoprazole Inj IVP SCH ×2 (08:29→20:34)
--- NOTE | 2020-10-27 08:40 | NUR ---
NURSE NOTES: Pt. in bed, sleeping but response to tactile stimuli. No s/sx of distress. On Bipap 15/5 with Fi O2 of 30% continuously. No grimacing noted. F/C in placed patent/intact draining light miko colored urine. HOB elevated at all times. On GTF Vital A.F 1.2 at 30cc/hr. Right femoral TLC in placed patent/intact. Bed in low position, locked. Call light within reach. Will cont. to monitor.
--- NOTE | 2020-10-27 10:03 | NUR ---
NURSE NOTES: Seen by Dr. Dumont with [facility].
--- NOTE | 2020-10-27 10:44 | Pulmonology Progress Note ---
Subjective ROS Limited/Unobtainable: Yes Interval Events: hypotensive, now in ICU Constitutional: Reports: other - transferred to ICU HEENT: Repors: no symptoms Respiratory: Reports: no symptoms Cardiovascular: Reports: no symptoms Gastrointestinal/Abdominal: Reports: other Psychiatric: Reports: other - refusing medications; s/p PEG Allergies: Coded Allergies: No Known Allergies (Unverified , 10/17/20) All Systems: reviewed and negative except above Objective Last 24 Hour Vital Signs Date Time Temp Pulse Resp B/P (MAP) Pulse Ox O2 Delivery O2 Flow Rate FiO2 10/27/20 10:00 98 18 113/74 (87) 100 10/27/20 09:00 104 22 105/67 (80) 98 10/27/20 08:00 98.2 111 23 117/94 (102) 98 10/27/20 08:00 88 10/27/20 08:00 30 10/27/20 08:00 Bi-pap 10/27/20 07:10 111 14 100 30 10/27/20 07:00 129 29 151/82 (105) 10/27/20 06:30 105 23 125/111 (116) 100 10/27/20 06:00 116 23 102/70 (81) 10/27/20 05:30 118 23 129/92 (104) 100 10/27/20 05:00 99 18 92/47 (62) 10/27/20 04:30 102 22 89/48 (62) 100 10/27/20 04:00 Bi-pap 10/27/20 04:00 105 10/27/20 04:00 30 10/27/20 04:00 98.5 112 26 116/66 (83) 100 10/27/20 03:58 116/84 10/27/20 03:30 106 23 110/66 (81) 100 10/27/20 03:12 70 21 94 30 10/27/20 03:00 108 23 126/68 (87) 99 10/27/20 02:30 112 24 108/80 (89) 10/27/20 02:00 116 23 124/94 (104) 10/27/20 01:30 123 25 143/106 (118) 100 10/27/20 01:00 120 24 127/84 (98) 10/27/20 00:30 116 23 126/96 (106) 10/27/20 00:00 112 10/27/20 00:00 123 24 126/104 (111) 100 10/27/20 00:00 30 10/27/20 00:00 Bi-pap 10/26/20 23:30 98.6 112 21 144/98 (113) 100 10/26/20 23:00 122 22 93/74 (80) 98 10/26/20 22:52 117 23 148/124 (132) 96 10/26/20 22:48 105 19 98 30 10/26/20 22:30 104 20 84/53 (63) 100 10/26/20 22:10 84/40 10/26/20 22:00 103 21 83/42 (56) 10/26/20 21:30 96 18 115/56 (75) 100 10/26/20 21:00 100 17 106/36 (59) 100 10/26/20 20:30 107 17 131/66 (87) 100 10/26/20 20:00 30 10/26/20 20:00 94 10/26/20 20:00 Bi-pap 10/26/20 20:00 97.8 116 22 160/90 (113) 100 10/26/20 19:30 98 21 85/48 (60) 99 10/26/20 19:17 124 21 95 30 10/26/20 19:00 95 17 116/62 (80) 99 10/26/20 18:00 116 20 108/72 (84) 10/26/20 17:00 99 16 96/43 (60) 100 10/26/20 16:10 102/30 10/26/20 16:00 30 10/26/20 16:00 Bi-pap 10/26/20 16:00 94 10/26/20 16:00 96.8 104 17 102/30 (54) 96 10/26/20 15:46 114 17 100 Bi-Pap 30 10/26/20 15:42 114 17 100 30 10/26/20 15:00 123 22 99/45 (63) 88 10/26/20 14:00 103 17 91/53 (66) 100 10/26/20 13:00 102 16 74/44 (54) 100 10/26/20 12:00 96.8 106 16 95/57 (70) 10/26/20 12:00 Nasal Cannula 2.0 3/1/21 12:00 105 10/26/20 11:15 114 23 100/77 (85) 99 10/26/20 11:14 88/42 10/26/20 11:00 104 21 66/49 (55) 100 Intake and Output 10/26/20 10/27/20 19:00 07:00 Intake Total 1942.5 ml 1995.0 ml Output Total 110 ml 240 ml Balance 1832.5 ml 1755.0 ml Free Water 50 ml 80 ml IV Total 1832.5 ml 1645.0 ml Tube Feeding 60 ml 270 ml Output Urine Total 110 ml 240 ml General Appearance: no acute distress HEENT: atraumatic Respiratory: lungs clear Cardiovascular: normal rate, regular rhythm Abdomen: soft, non tender, other - s/p PEG Microbiology Date/Time Source Procedure Growth Status 10/25/20 15:40 Nasopharynx SARS-CoV-2 Antigen (Rapid)(DIAZ) - Final Complete Laboratory Tests 10/26/20 14:44: Arterial Blood pH 7.081*L, Arterial Blood Partial Pressure CO2 86.3*H, Arterial Blood Partial Pressure O2 90.7, Arterial Blood HCO3 25.1, Arterial Blood Oxygen Saturation 95.4, Arterial Blood Base Excess -5.7L, Gallo Test Positive 10/26/20 19:21: Arterial Blood pH 7.194*L, Arterial Blood Partial Pressure CO2 59.7*H, Arterial Blood Partial Pressure O2 111.0H, Arterial Blood HCO3 22.5, Arterial Blood Oxygen Saturation 97.3, Arterial Blood Base Excess -5.9L, Gallo Test Positive 10/27/20 04:25: White Blood Count 5.5, Red Blood Count 2.83L, Hemoglobin 8.6L, Hematocrit 27.9L, Mean Corpuscular Volume 99, Mean Corpuscular Hemoglobin 30.3, Mean Corpuscular Hemoglobin Concent 30.7L, Red Cell Distribution Width 19.8H, Platelet Count 161, Mean Platelet Volume 7.8, Neutrophils (%) (Auto) , Lymphocytes (%) (Auto) , Monocytes (%) (Auto) , Eosinophils (%) (Auto) , Basophils (%) (Auto) , Differential Total Cells Counted 100, Neutrophils % (Manual) 86H, Lymphocytes % (Manual) 10L, Monocytes % (Manual) 3, Eosinophils % (Manual) 0, Basophils % (M anual) 1, Band Neutrophils 0, Platelet Estimate Adequate, Platelet Morphology Normal, Hypochromasia 1+, Anisocytosis 2+, Microcytosis Occasional, Macrocytosis 1+, Sodium Level 136, Potassium Level 3.7, Chloride Level 104, Carbon Dioxide Level 24, Anion Gap 8, Blood Urea Nitrogen 36H, Creatinine 2.3H, Estimat Glomerular Filtration Rate 20.3, Glucose Level 195H, Uric Acid 8.2H, Calcium Level 7.4L, Phosphorus Level 3.9, Magnesium Level 1.8, Total Bilirubin 0.3, Aspartate Amino Transf (AST/SGOT) 8L, Alanine Aminotransferase (ALT/SGPT) 10L, Alkaline Phosphatase 88, C-Reactive Protein, Quantitative 3.6H, Pro-B-Type Natriuretic Peptide > 37532U, Total Protein 5.2L, Albumin 2.3L, Globulin 2.9, Albumin/Globulin Ratio 0.8L Current Medications Medications (Trade) Dose Ordered Sig/Yolanda Route PRN Reason Start Time Stop Time Status Last Admin Dose Admin Acetaminophen (Tylenol) 500 mg Q6HR PRN ORAL Mild Pain 1-3 10/17/20 17:45 11/16/20 17:44 Acetaminophen (Tylenol) 500 mg Q6HR PRN ORAL fever >100 10/17/20 18:00 11/16/20 17:59 Acetaminophen (Tylenol) 650 mg Q4H PRN ORAL Pain Scale (6-10) 10/17/20 19:15 11/16/20 19:14 Apixaban (Eliquis) 2.5 mg BID ORAL 10/24/20 18:00 01/22/21 17:59 10/27/20 08:29 Chlorhexidine Gluconate (Eve-Hex 2%) 1 applic DAILY@2000 TOPIC 10/22/20 20:00 01/20/21 19:59 10/26/20 20:28 Dextrose/Sodium Chloride 1,000 ml @ 100 mls/hr Q10H IV 10/25/20 12:00 11/24/20 11:59 10/27/20 03:59 Docusate Sodium (Colace) 10 mg THREE TIMES A DAY GT 10/25/20 18:00 11/24/20 17:59 10/27/20 08:28 Hydrocortisone (Solu-CORTEF) 100 mg EVERY 8 HOURS IV 10/26/20 14:00 10/27/20 22:01 10/27/20 05:47 Levothyroxine Sodium (Synthroid) 50 mcg DAILY@0630 ORAL 10/19/20 06:30 11/18/20 06:29 10/27/20 05:47 Midodrine (Pro-Amatine) 10 mg Q8HR GT 10/26/20 14:00 01/16/21 13:59 10/27/20 05:47 Norepinephrine Bitartrate 250 ml @ 0 mls/hr Q24H PRN IV . 10/26/20 11:09 10/29/20 11:08 10/27/20 03:58 Ondansetron HCl (Zofran) 4 mg Q6H PRN IVP Nausea & Vomiting 10/17/20 21:15 11/16/20 21:14 Pantoprazole (Protonix) 40 mg EVERY 12 HOURS IVP 10/26/20 21:00 11/25/20 20:59 10/27/20 08:29 Piperacillin Sod/ Tazobactam Sod 3.375 gm/Sodium Chloride 110 ml @ 27.5 mls/hr Q12H IVPB 10/26/20 14:00 11/02/20 13:59 10/27/20 02:11 Assessment/Plan Assessment/Plan 1. CHF. 2. CAD/previous non-STEMI. 3. senior living resident. 4. Bradycardia. 5. Atrial fibrillation. -Started on Eliquis 6. Renal insufficiency. -Nephro following 7. Troponin leak. - Cardio following 8. COVID-19 pneumonia, without fever or leukocytosis - Now on BiPAP - Will check ABG 9. Hypoxemia 10. 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 UTI, cheryl 12. Dysphagia -s/p PEG (10/23) 13. Hypotension; improved - s/p NS bolus - now off Lopressor Carlos Woods MD Oct 27, 2020 10:44
--- NOTE | 2020-10-27 10:57 | Surgery Progress Note ---
Surgery Progress Note Subjective Procedure Performed Right femoral central venous catheter insertion Additional Comments on bipap tolerating tf min responsive labs noted Objective Last 24 Hour Vital Signs Date Time Temp Pulse Resp B/P (MAP) Pulse Ox O2 Delivery O2 Flow Rate FiO2 10/27/20 10:00 98 18 113/74 (87) 100 10/27/20 09:00 104 22 105/67 (80) 98 10/27/20 08:00 98.2 111 23 117/94 (102) 98 10/27/20 08:00 88 10/27/20 08:00 30 10/27/20 08:00 Bi-pap 10/27/20 07:10 111 14 100 30 10/27/20 07:00 129 29 151/82 (105) 10/27/20 06:30 105 23 125/111 (116) 100 10/27/20 06:00 116 23 102/70 (81) 10/27/20 05:30 118 23 129/92 (104) 100 10/27/20 05:00 99 18 92/47 (62) 10/27/20 04:30 102 22 89/48 (62) 100 10/27/20 04:00 Bi-pap 10/27/20 04:00 105 10/27/20 04:00 30 10/27/20 04:00 98.5 112 26 116/66 (83) 100 10/27/20 03:58 116/84 10/27/20 03:30 106 23 110/66 (81) 100 10/27/20 03:12 70 21 94 30 10/27/20 03:00 108 23 126/68 (87) 99 10/27/20 02:30 112 24 108/80 (89) 10/27/20 02:00 116 23 124/94 (104) 10/27/20 01:30 123 25 143/106 (118) 100 10/27/20 01:00 120 24 127/84 (98) 10/27/20 00:30 116 23 126/96 (106) 10/27/20 00:00 112 10/27/20 00:00 123 24 126/104 (111) 100 10/27/20 00:00 30 10/27/20 00:00 Bi-pap 10/26/20 23:30 98.6 112 21 144/98 (113) 100 10/26/20 23:00 122 22 93/74 (80) 98 10/26/20 22:52 117 23 148/124 (132) 96 10/26/20 22:48 105 19 98 30 10/26/20 22:30 104 20 84/53 (63) 100 10/26/20 22:10 84/40 10/26/20 22:00 103 21 83/42 (56) 10/26/20 21:30 96 18 115/56 (75) 100 10/26/20 21:00 100 17 106/36 (59) 100 10/26/20 20:30 107 17 131/66 (87) 100 10/26/20 20:00 30 10/26/20 20:00 94 10/26/20 20:00 Bi-pap 10/26/20 20:00 97.8 116 22 160/90 (113) 100 10/26/20 19:30 98 21 85/48 (60) 99 10/26/20 19:17 124 21 95 30 10/26/20 19:00 95 17 116/62 (80) 99 10/26/20 18:00 116 20 108/72 (84) 10/26/20 17:00 99 16 96/43 (60) 100 10/26/20 16:10 102/30 10/26/20 16:00 30 10/26/20 16:00 Bi-pap 10/26/20 16:00 94 10/26/20 16:00 96.8 104 17 102/30 (54) 96 10/26/20 15:46 114 17 100 Bi-Pap 30 10/26/20 15:42 114 17 100 30 10/26/20 15:00 123 22 99/45 (63) 88 10/26/20 14:00 103 17 91/53 (66) 100 10/26/20 13:00 102 16 74/44 (54) 100 10/26/20 12:00 96.8 106 16 95/57 (70) 10/26/20 12:00 Nasal Cannula 2.0 10/26/20 12:00 105 10/26/20 11:15 114 23 100/77 (85) 99 10/26/20 11:14 88/42 10/26/20 11:00 104 21 66/49 (55) 100 I&O Intake and Output 10/26/20 10/27/20 19:00 07:00 Intake Total 1942.5 ml 1995.0 ml Output Total 110 ml 240 ml Balance 1832.5 ml 1755.0 ml Free Water 50 ml 80 ml IV Total 1832.5 ml 1645.0 ml Tube Feeding 60 ml 270 ml Output Urine Total 110 ml 240 ml Dressing: saturated Cardiovascular: RSR Respiratory: decreased breath sounds Abdomen: soft, non-tender, present bowel sounds, non-distended, decreased bowel sounds Extremities: edema, no tenderness, no cyanosis Laboratory Tests Test 10/26/20 14:44 10/26/20 19:21 10/27/20 04:25 Arterial Blood pH 7.081 (7.350-7.450) 7.194 (7.350-7.450) Arterial Blood Partial Pressure CO2 86.3 mmHg (35.0-45.0) *H 59.7 mmHg (35.0-45.0) *H Arterial Blood Partial Pressure O2 90.7 mmHg (75.0-100.0) 111.0 mmHg (75.0-100.0) H Arterial Blood HCO3 25.1 mmol/L (22.0-26.0) 22.5 mmol/L (22.0-26.0) Arterial Blood Oxygen Saturation 95.4 % (95-100) 97.3 % (95-100) Arterial Blood Base Excess -5.7 (-2-2) L -5.9 (-2-2) L Gallo Test Positive Positive White Blood Count 5.5 K/UL (4.8-10.8) Red Blood Count 2.83 M/UL (4.20-5.40) L Hemoglobin 8.6 G/DL (12.0-16.0) L Hematocrit 27.9 % (37.0-47.0) L Mean Corpuscular Volume 99 FL (80-99) Mean Corpuscular Hemoglobin 30.3 PG (27.0-31.0) Mean Corpuscular Hemoglobin Concent 30.7 G/DL (32.0-36.0) L Red Cell Distribution Width 19.8 % (11.6-14.8) H Platelet Count 161 K/UL (150-450) Mean Platelet Volume 7.8 FL (6.5-10.1) Neutrophils (%) (Auto) % (45.0-75.0) Lymphocytes (%) (Auto) % (20.0-45.0) Monocytes (%) (Auto) % (1.0-10.0) Eosinophils (%) (Auto) % (0.0-3.0) Basophils (%) (Auto) % (0.0-2.0) Differential Total Cells Counted 100 Neutrophils % (Manual) 86 % (45-75) H Lymphocytes % (Manual) 10 % (20-45) L Monocytes % (Manual) 3 % (1-10) Eosinophils % (Manual) 0 % (0-3) Basophils % (Manual) 1 % (0-2) Band Neutrophils 0 % (0-8) Platelet Estimate Adequate Platelet Morphology Normal Hypochromasia 1+ Anisocytosis 2+ Microcytosis Occasional Macrocytosis 1+ Sodium Level 136 MMOL/L (136-145) Potassium Level 3.7 MMOL/L (3.5-5.1) Chloride Level 104 MMOL/L (98-107) Carbon Dioxide Level 24 MMOL/L (21-32) Anion Gap 8 mmol/L (5-15) Blood Urea Nitrogen 36 mg/dL (7-18) H Creatinine 2.3 MG/DL (0.55-1.30) H Estimat Glomerular Filtration Rate 20.3 mL/min (>60) Glucose Level 195 MG/DL (74-106) H Uric Acid 8.2 MG/DL (2.6-7.2) H Calcium Level 7.4 MG/DL (8.5-10.1) L Phosphorus Level 3.9 MG/DL (2.5-4.9) Magnesium Level 1.8 MG/DL (1.8-2.4) Total Bilirubin 0.3 MG/DL (0.2-1.0) Aspartate Amino Transf (AST/SGOT) 8 U/L (15-37) L Alanine Aminotransferase (ALT/SGPT) 10 U/L (12-78) L Alkaline Phosphatase 88 U/L (46-116) C-Reactive Protein, Quantitative 3.6 mg/dL (0.00-0.90) H Pro-B-Type Natriuretic Peptide > 93315 pg/mL (0-125) H Total Protein 5.2 G/DL (6.4-8.2) L Albumin 2.3 G/DL (3.4-5.0) L Globulin 2.9 g/dL Albumin/Globulin Ratio 0.8 (1.0-2.7) L Plan Problems: (1) Anemia (2) Acute kidney injury (3) Atrial fibrillation (4) Hyperkalemia (5) Elevated troponin (6) Decubitus skin ulcer Assessment & Plan: Pt presented on admission with Multiple Medical Comorbidities including Covid-19 and Pressure Injuries. Primary Nurse reported Pt has been declining food and medications. Sacral DTPI that is evolving noted to Sacrum(L)6cm x (W)12.5cm.. Scattered Purpuric areas that are indurated noted to R and L cheek. Small wound that is 100% slough (L)0.6cm x (W)0.7cm noted at sacrococcygeal area within base of DTPI. MASD noted to Perineum and skin folds of Medial/posterior aspects of Both upper thighs. Affected areas are erythematous and macerated with scattered satellite lesions. DTPI L Heel (L)3cm x (W)4cm, Base of heel is maroon and fluctuant with small purpuric area (L)0.4cm x (W)0.9cm within base of DTPI. l Foot including toes are mottled and cool to touch. L Heel is boggy. L Heel including toes are Mottled and cool to touch. Tx.Plan: Apply Moisture Barrier Paste to Sacrum. Cover with Optifoam drsg.Change every 3 days and prn. Apply Moisture Barrier Paste to abdominal folds, Perineum and skin folds of both upper thighs. Apply Cavilon Skin Barrier to both heels. Cover each Heel with Optifoam drsg. Change every 7 days and prn. Reposition at least every 2hours or as tolerated. Off-load heels with pillow. (7) Malnutrition Assessment & Plan: She was able to self feed on right hand and took a bite of popsicle and tolerated without s.s of aspiration. After 1st bite, then she refused 2nd bite. After this was done, I offered her a cup of cranberry juice, she took few sips and tolerated without s.s of aspiration. I continued to offer but she refused further PO. A: 1. Functional swallow 2. Failure to thrive 3. abnormal electrolytes in setting of heart failure, NSTEMI, elevated BNP, etc.. P/Rec. 1. Pureed and thin liquid 2.3. Goal of care discussion DAILY ESTIMATED NEEDS: Needs based on Cardiac, pulmonary/ 51kg abw 25-30 kcals/kg 2818-7940 total kcals 1-1.5 g protein/kg 51-76 g total protein 20-25 mL/kg 0646-3170 total fluid mLs NUTRITION DIAGNOSIS: Swallowing difficulty R/T dysphagia, decreased cognitive fxn as evidenced by [employer] EVENTS MANAGER recommends pureed moist texture diet at this time. CURRENT DIET:NPO PO DIET RECOMMENDATIONS: Liberalized REGULAR w/ poor PO (texture per [employer] EVENTS MANAGER) ADDITIONAL RECOMMENDATIONS: * Calibrated bedscale wt * Monitor PO intake: refusing meds and foods at this time -> rec nonoral feeds w/ continued refusal of PO if part of POC * LOW NA diet w/ PO intake consistently >50% * 4 oz Ensure TID w/ meals (4oz at this time due to poor acceptance, may increase to 8oz w/ good acceptance) (8) Pneumonia due to COVID-19 virus Assessment & Plan: here appears to be increased left pleural fluid and generalized hazy parenchymal opacity, left greater than right. Heart remains enlarged Impression: Increased left pleural effusion Suspect increasing bilateral left greater than right pulmonary edema versus infiltrates (9) Hypothyroidism Jim Orosco Oct 27, 2020 10:56
--- NOTE | 2020-10-27 11:08 | Infectious Diseases Prog Note ---
Assessment/Plan Assessment/Plan IMPRESSION: Pneumonia Hypercapnic respiratory failure Recent history of COVID disease, Acute renal failure, Severe aortic stenosis Atrial fibrillation, hypothyroidism, Anemia. Chronic DVT of R leg Hypotension Gastrostomy status RECOMMENDATION: Continue Zosyn Subjective ROS Limited/Unobtainable: Yes Respiratory: Reports: other - was put on BIPAP Allergies: Coded Allergies: No Known Allergies (Unverified , 10/17/20) Objective Last 24 Hour Vital Signs Date Time Temp Pulse Resp B/P (MAP) Pulse Ox O2 Delivery O2 Flow Rate FiO2 10/27/20 10:00 98 18 113/74 (87) 100 10/27/20 09:00 104 22 105/67 (80) 98 10/27/20 08:00 98.2 111 23 117/94 (102) 98 10/27/20 08:00 88 10/27/20 08:00 30 10/27/20 08:00 Bi-pap 10/27/20 07:10 111 14 100 30 10/27/20 07:00 129 29 151/82 (105) 10/27/20 06:30 105 23 125/111 (116) 100 10/27/20 06:00 116 23 102/70 (81) 10/27/20 05:30 118 23 129/92 (104) 100 10/27/20 05:00 99 18 92/47 (62) 10/27/20 04:30 102 22 89/48 (62) 100 10/27/20 04:00 Bi-pap 10/27/20 04:00 105 10/27/20 04:00 30 10/27/20 04:00 98.5 112 26 116/66 (83) 100 10/27/20 03:58 116/84 10/27/20 03:30 106 23 110/66 (81) 100 10/27/20 03:12 70 21 94 30 10/27/20 03:00 108 23 126/68 (87) 99 10/27/20 02:30 112 24 108/80 (89) 10/27/20 02:00 116 23 124/94 (104) 10/27/20 01:30 123 25 143/106 (118) 100 10/27/20 01:00 120 24 127/84 (98) 10/27/20 00:30 116 23 126/96 (106) 10/27/20 00:00 112 10/27/20 00:00 123 24 126/104 (111) 100 10/27/20 00:00 30 10/27/20 00:00 Bi-pap 10/26/20 23:30 98.6 112 21 144/98 (113) 100 10/26/20 23:00 122 22 93/74 (80) 98 10/26/20 22:52 117 23 148/124 (132) 96 10/26/20 22:48 105 19 98 30 10/26/20 22:30 104 20 84/53 (63) 100 10/26/20 22:10 84/40 10/26/20 22:00 103 21 83/42 (56) 10/26/20 21:30 96 18 115/56 (75) 100 10/26/20 21:00 100 17 106/36 (59) 100 10/26/20 20:30 107 17 131/66 (87) 100 10/26/20 20:00 30 10/26/20 20:00 94 10/26/20 20:00 Bi-pap 10/26/20 20:00 97.8 116 22 160/90 (113) 100 10/26/20 19:30 98 21 85/48 (60) 99 10/26/20 19:17 124 21 95 30 10/26/20 19:00 95 17 116/62 (80) 99 10/26/20 18:00 116 20 108/72 (84) 10/26/20 17:00 99 16 96/43 (60) 100 10/26/20 16:10 102/30 10/26/20 16:00 30 10/26/20 16:00 Bi-pap 10/26/20 16:00 94 10/26/20 16:00 96.8 104 17 102/30 (54) 96 10/26/20 15:46 114 17 100 Bi-Pap 30 10/26/20 15:42 114 17 100 30 10/26/20 15:00 123 22 99/45 (63) 88 10/26/20 14:00 103 17 91/53 (66) 100 10/26/20 13:00 102 16 74/44 (54) 100 10/26/20 12:00 96.8 106 16 95/57 (70) 10/26/20 12:00 Nasal Cannula 2.0 10/26/20 12:00 105 10/26/20 11:15 114 23 100/77 (85) 99 10/26/20 11:14 88/42 Height (Feet): 5 Height (Inches): 0.00 Weight (Pounds): 145 HEENT: mucous membranes moist Respiratory/Chest: decreased breath sounds, other - on BIPAP Cardiovascular: normal rate Abdomen: soft, non tender, other - GT feeding Extremities: other - generalized edema Neurologic/Psychiatric: other - lethargic Microbiology Date/Time Source Procedure Growth Status 10/25/20 15:40 Nasopharynx SARS-CoV-2 Antigen (Rapid)(DIAZ) - Final Complete Laboratory Tests Test 10/26/20 14:44 10/26/20 19:21 10/27/20 04:25 Arterial Blood pH 7.081 (7.350-7.450) 7.194 (7.350-7.450) Arterial Blood Partial Pressure CO2 86.3 mmHg (35.0-45.0) *H 59.7 mmHg (35.0-45.0) *H Arterial Blood Partial Pressure O2 90.7 mmHg (75.0-100.0) 111.0 mmHg (75.0-100.0) H Arterial Blood HCO3 25.1 mmol/L (22.0-26.0) 22.5 mmol/L (22.0-26.0) Arterial Blood Oxygen Saturation 95.4 % (95-100) 97.3 % (95-100) Arterial Blood Base Excess -5.7 (-2-2) L -5.9 (-2-2) L Gallo Test Positive Positive White Blood Count 5.5 K/UL (4.8-10.8) Red Blood Count 2.83 M/UL (4.20-5.40) L Hemoglobin 8.6 G/DL (12.0-16.0) L Hematocrit 27.9 % (37.0-47.0) L Mean Corpuscular Volume 99 FL (80-99) Mean Corpuscular Hemoglobin 30.3 PG (27.0-31.0) Mean Corpuscular Hemoglobin Concent 30.7 G/DL (32.0-36.0) L Red Cell Distribution Width 19.8 % (11.6-14.8) H Platelet Count 161 K/UL (150-450) Mean Platelet Volume 7.8 FL (6.5-10.1) Neutrophils (%) (Auto) % (45.0-75.0) Lymphocytes (%) (Auto) % (20.0-45.0) Monocytes (%) (Auto) % (1.0-10.0) Eosinophils (%) (Auto) % (0.0-3.0) Basophils (%) (Auto) % (0.0-2.0) Differential Total Cells Counted 100 Neutrophils % (Manual) 86 % (45-75) H Lymphocytes % (Manual) 10 % (20-45) L Monocytes % (Manual) 3 % (1-10) Eosinophils % (Manual) 0 % (0-3) Basophils % (Manual) 1 % (0-2) Band Neutrophils 0 % (0-8) Platelet Estimate Adequate Platelet Morphology Normal Hypochromasia 1+ Anisocytosis 2+ Microcytosis Occasional Macrocytosis 1+ Sodium Level 136 MMOL/L (136-145) Potassium Level 3.7 MMOL/L (3.5-5.1) Chloride Level 104 MMOL/L (98-107) Carbon Dioxide Level 24 MMOL/L (21-32) Anion Gap 8 mmol/L (5-15) Blood Urea Nitrogen 36 mg/dL (7-18) H Creatinine 2.3 MG/DL (0.55-1.30) H Estimat Glomerular Filtration Rate 20.3 mL/min (>60) Glucose Level 195 MG/DL (74-106) H Uric Acid 8.2 MG/DL (2.6-7.2) H Calcium Level 7.4 MG/DL (8.5-10.1) L Phosphorus Level 3.9 MG/DL (2.5-4.9) Magnesium Level 1.8 MG/DL (1.8-2.4) Total Bilirubin 0.3 MG/DL (0.2-1.0) Aspartate Amino Transf (AST/SGOT) 8 U/L (15-37) L Alanine Aminotransferase (ALT/SGPT) 10 U/L (12-78) L Alkaline Phosphatase 88 U/L (46-116) C-Reactive Protein, Quantitative 3.6 mg/dL (0.00-0.90) H Pro-B-Type Natriuretic Peptide > 79389 pg/mL (0-125) H Total Protein 5.2 G/DL (6.4-8.2) L Albumin 2.3 G/DL (3.4-5.0) L Globulin 2.9 g/dL Albumin/Globulin Ratio 0.8 (1.0-2.7) L Current Medications Medications (Trade) Dose Ordered Sig/Yolanda Route PRN Reason Start Time Stop Time Status Last Admin Dose Admin Acetaminophen (Tylenol) 500 mg Q6HR PRN ORAL Mild Pain 1-3 10/17/20 17:45 11/16/20 17:44 Acetaminophen (Tylenol) 500 mg Q6HR PRN ORAL fever >100 10/17/20 18:00 11/16/20 17:59 Acetaminophen (Tylenol) 650 mg Q4H PRN ORAL Pain Scale (6-10) 10/17/20 19:15 11/16/20 19:14 Apixaban (Eliquis) 2.5 mg BID ORAL 10/24/20 18:00 01/22/21 17:59 10/27/20 08:29 Chlorhexidine Gluconate (Eve-Hex 2%) 1 applic DAILY@2000 TOPIC 10/22/20 20:00 01/20/21 19:59 10/26/20 20:28 Dextrose/Sodium Chloride 1,000 ml @ 100 mls/hr Q10H IV 10/25/20 12:00 11/24/20 11:59 10/27/20 03:59 Docusate Sodium (Colace) 10 mg THREE TIMES A DAY GT 10/25/20 18:00 11/24/20 17:59 10/27/20 08:28 Hydrocortisone (Solu-CORTEF) 100 mg EVERY 8 HOURS IV 10/26/20 14:00 10/27/20 22:01 10/27/20 05:47 Levothyroxine Sodium (Synthroid) 50 mcg DAILY@0630 ORAL 10/19/20 06:30 11/18/20 06:29 10/27/20 05:47 Midodrine (Pro-Amatine) 10 mg Q8HR GT 10/26/20 14:00 01/16/21 13:59 10/27/20 05:47 Norepinephrine Bitartrate 250 ml @ 0 mls/hr Q24H PRN IV . 10/26/20 11:09 10/29/20 11:08 10/27/20 03:58 Ondansetron HCl (Zofran) 4 mg Q6H PRN IVP Nausea & Vomiting 10/17/20 21:15 11/16/20 21:14 Pantoprazole (Protonix) 40 mg EVERY 12 HOURS IVP 10/26/20 21:00 11/25/20 20:59 10/27/20 08:29 Piperacillin Sod/ Tazobactam Sod 3.375 gm/Sodium Chloride 110 ml @ 27.5 mls/hr Q12H IVPB 10/26/20 14:00 11/02/20 13:59 10/27/20 02:11 Luis Alvarado MD Oct 27, 2020 11:08
--- NOTE | 2020-10-27 11:33 | NUR ---
NURSE NOTES: Seen by Dr. Gómez with [facility].
--- NOTE | 2020-10-27 11:46 | General Progress Note ---
Subjective ROS Limited/Unobtainable: Yes Allergies: Coded Allergies: No Known Allergies (Unverified , 10/17/20) Objective Last 24 Hour Vital Signs Date Time Temp Pulse Resp B/P (MAP) Pulse Ox O2 Delivery O2 Flow Rate FiO2 10/27/20 11:35 91 20 100 30 10/27/20 11:05 130/60 10/27/20 11:00 96 18 130/60 (83) 100 10/27/20 10:00 98 18 113/74 (87) 100 10/27/20 09:00 104 22 105/67 (80) 98 10/27/20 08:00 98.2 111 23 117/94 (102) 98 10/27/20 08:00 88 10/27/20 08:00 30 10/27/20 08:00 Bi-pap 10/27/20 07:10 111 14 100 30 10/27/20 07:00 129 29 151/82 (105) 10/27/20 06:30 105 23 125/111 (116) 100 10/27/20 06:00 116 23 102/70 (81) 10/27/20 05:30 118 23 129/92 (104) 100 10/27/20 05:00 99 18 92/47 (62) 10/27/20 04:30 102 22 89/48 (62) 100 10/27/20 04:00 Bi-pap 10/27/20 04:00 105 10/27/20 04:00 30 10/27/20 04:00 98.5 112 26 116/66 (83) 100 10/27/20 03:58 116/84 10/27/20 03:30 106 23 110/66 (81) 100 10/27/20 03:12 70 21 94 30 10/27/20 03:00 108 23 126/68 (87) 99 10/27/20 02:30 112 24 108/80 (89) 10/27/20 02:00 116 23 124/94 (104) 10/27/20 01:30 123 25 143/106 (118) 100 10/27/20 01:00 120 24 127/84 (98) 10/27/20 00:30 116 23 126/96 (106) 10/27/20 00:00 112 10/27/20 00:00 123 24 126/104 (111) 100 10/27/20 00:00 30 10/27/20 00:00 Bi-pap 10/26/20 23:30 98.6 112 21 144/98 (113) 100 10/26/20 23:00 122 22 93/74 (80) 98 10/26/20 22:52 117 23 148/124 (132) 96 10/26/20 22:48 105 19 98 30 10/26/20 22:30 104 20 84/53 (63) 100 10/26/20 22:10 84/40 10/26/20 22:00 103 21 83/42 (56) 10/26/20 21:30 96 18 115/56 (75) 100 10/26/20 21:00 100 17 106/36 (59) 100 10/26/20 20:30 107 17 131/66 (87) 100 10/26/20 20:00 30 10/26/20 20:00 94 10/26/20 20:00 Bi-pap 10/26/20 20:00 97.8 116 22 160/90 (113) 100 10/26/20 19:30 98 21 85/48 (60) 99 10/26/20 19:17 124 21 95 30 10/26/20 19:00 95 17 116/62 (80) 99 10/26/20 18:00 116 20 108/72 (84) 10/26/20 17:00 99 16 96/43 (60) 100 10/26/20 16:10 102/30 10/26/20 16:00 30 10/26/20 16:00 Bi-pap 10/26/20 16:00 94 10/26/20 16:00 96.8 104 17 102/30 (54) 96 10/26/20 15:46 114 17 100 Bi-Pap 30 10/26/20 15:42 114 17 100 30 10/26/20 15:00 123 22 99/45 (63) 88 10/26/20 14:00 103 17 91/53 (66) 100 10/26/20 13:00 102 16 74/44 (54) 100 10/26/20 12:00 96.8 106 16 95/57 (70) 10/26/20 12:00 Nasal Cannula 2.0 10/26/20 12:00 105 Intake and Output 10/26/20 10/27/20 19:00 07:00 Intake Total 1942.5 ml 1995.0 ml Output Total 110 ml 240 ml Balance 1832.5 ml 1755.0 ml Free Water 50 ml 80 ml IV Total 1832.5 ml 1645.0 ml Tube Feeding 60 ml 270 ml Output Urine Total 110 ml 240 ml Laboratory Tests 10/26/20 14:44: Arterial Blood pH 7.081*L, Arterial Blood Partial Pressure CO2 86.3*H, Arterial Blood Partial Pressure O2 90.7, Arterial Blood HCO3 25.1, Arterial Blood Oxygen Saturation 95.4, Arterial Blood Base Excess -5.7L, Gallo Test Positive 10/26/20 19:21: Arterial Blood pH 7.194*L, Arterial Blood Partial Pressure CO2 59.7*H, Arterial Blood Partial Pressure O2 111.0H, Arterial Blood HCO3 22.5, Arterial Blood Oxygen Saturation 97.3, Arterial Blood Base Excess -5.9L, Gallo Test Positive 10/27/20 04:25: White Blood Count 5.5, Red Blood Count 2.83L, Hemoglobin 8.6L, Hematocrit 27.9L, Mean Corpuscular Volume 99, Mean Corpuscular Hemoglobin 30.3, Mean Corpuscular Hemoglobin Concent 30.7L, Red Cell Distribution Width 19.8H, Platelet Count 161, Mean Platelet Volume 7.8, Neutrophils (%) (Auto) , Lymphocytes (%) (Auto) , Monocytes (%) (Auto) , Eosinophils (%) (Auto) , Basophils (%) (Auto) , Differential Total Cells Counted 100, Neutrophils % (Manual) 86H, Lymphocytes % (Manual) 10L, Monocytes % (Manual) 3, Eosinophils % (Manual) 0, Basophils % (Manual) 1, Band Neutrophils 0, Platelet Estimate Adequate, Platelet Morphology Normal, Hypochromasia 1+, Anisocytosis 2+, Microcytosis Occasional, Macrocytosis 1+, Sodium Level 136, Potassium Level 3.7, Chloride Level 104, Carbon Dioxide L evel 24, Anion Gap 8, Blood Urea Nitrogen 36H, Creatinine 2.3H, Estimat Glomerular Filtration Rate 20.3, Glucose Level 195H, Uric Acid 8.2H, Calcium Level 7.4L, Phosphorus Level 3.9, Magnesium Level 1.8, Total Bilirubin 0.3, Aspartate Amino Transf (AST/SGOT) 8L, Alanine Aminotransferase (ALT/SGPT) 10L, Alkaline Phosphatase 88, C-Reactive Protein, Quantitative 3.6H, Pro-B-Type Natriuretic Peptide > 82065L, Total Protein 5.2L, Albumin 2.3L, Globulin 2.9, Albumin/Globulin Ratio 0.8L Height (Feet): 5 Height (Inches): 0.00 Weight (Pounds): 145 Assessment/Plan Problem List: (1) Anemia ICD Codes: D64.9 - Anemia, unspecified SNOMED: 471336763 (2) Acute kidney injury ICD Codes: N17.9 - Acute kidney failure, unspecified SNOMED: 06672983, 6168212 (3) Atrial fibrillation ICD Codes: I48.91 - Unspecified atrial fibrillation SNOMED: 40672142 (4) Elevated troponin ICD Codes: R77.8 - Other specified abnormalities of plasma proteins SNOMED: 904348540, 285997770, 962659155 (5) Malnutrition ICD Codes: E46 - Unspecified protein-calorie malnutrition SNOMED: 63893285 (6) Pneumonia due to COVID-19 virus ICD Codes: U07.1 - COVID-19; J12.82 - Pneumonia due to coronavirus disease 2019 SNOMED: 099624079051900049 (7) Hypothyroidism ICD Codes: E03.9 - Hypothyroidism, unspecified SNOMED: 46669467 Status: progressing Assessment/Plan: s/p on pressors malnutrition bp improving lethargy a fib w rvr azotemia covid + poor prognosis Neri Dumont MD Oct 27, 2020 11:46
--- NOTE | 2020-10-27 12:08 | Nephrology Progress Note ---
Assessment/Plan Problem List: (1) Acute kidney injury (2) Anemia (3) Hyperkalemia (4) Elevated troponin (5) Pneumonia due to COVID-19 virus (6) Hypothyroidism Assessment Plan October 27: Patient in ICU. On BiPAP. Serum creatinine rising. Blood pressure more stable. Will give 100 mg Lasix IV push with the hope of reversing oliguria. Medication list reviewed. Continue to monitor renal parameters. October 26: Seen in ICU. On pressors for low blood pressure. Serum creatinine 2.1. Albumin bolus given. Stress dose of steroids initiated. Continue to monitor renal parameters. Continue per consultants. October 25: Patient seen and examined. Trendelenburg. Blood pressure low. T achycardic. Discussed with RN. Patient to be transferred to ICU. Discussed with ICU charge nurse and hospital charge nurse. Meanwhile patient started on Albumin bolus and 100 cc an hour D5 normal saline. Patient to be started on pressors while in ICU. Patient full code. October 24: No CHEM panel drawn today.. Renal parameters stable. Patient had a GT placed yesterday. Will check labs tomorrow. Medication list reviewed. October 23: Labs reviewed. Renal parameters unchanged. Creatinine 1.9. Co ntinue current management. Medication list reviewed. October 22: Labs reviewed. Serum creatinine lower at 1.8. Patient started on clear liquid. Patient refuses p.o. medications and food at times. Continue per consultants. October 21: Labs reviewed. Serum creatinine unchanged. Continue per consultants. Continue to monitor renal parameters. October 20: Today's labs reviewed. Serum creatinine unchanged. RN reports patient not taking any p.o. meds. Continue per consultants. Serum creatinine appears to be baseline. October 19: Today's labs still not done yet. RN informed. Albumin bolus given again. Continue to monitor electrolytes and renal parameters. Per orders October 18: Patient hypotensive. Due for blood transfusion. Will give albumin bolus. Continue to monitor renal parameters and electrolytes. Labs and medication list reviewed Subjective ROS Limited/Unobtainable: Yes Objective Objective Last 24 Hour Vital Signs Date Time Temp Pulse Resp B/P (MAP) Pulse Ox O2 Delivery O2 Flow Rate FiO2 10/27/20 12:00 30 10/27/20 12:00 97.6 90 19 99/44 (62) 10/27/20 11:35 91 20 100 30 10/27/20 11:05 130/60 10/27/20 11:00 96 18 130/60 (83) 100 10/27/20 10:00 98 18 113/74 (87) 100 10/27/20 09:00 104 22 105/67 (80) 98 10/27/20 08:00 98.2 111 23 117/94 (102) 98 10/27/20 08:00 88 10/27/20 08:00 30 10/27/20 08:00 Bi-pap 10/27/20 07:10 111 14 100 30 10/27/20 07:00 129 29 151/82 (105) 10/27/20 06:30 105 23 125/111 (116) 100 10/27/20 06:00 116 23 102/70 (81) 10/27/20 05:30 118 23 129/92 (104) 100 10/27/20 05:00 99 18 92/47 (62) 10/27/20 04:30 102 22 89/48 (62) 100 10/27/20 04:00 Bi-pap 10/27/20 04:00 105 10/27/20 04:00 30 10/27/20 04:00 98.5 112 26 116/66 (83) 100 10/27/20 03:58 116/84 10/27/20 03:30 106 23 110/66 (81) 100 10/27/20 03:12 70 21 94 30 10/27/20 03:00 108 23 126/68 (87) 99 10/27/20 02:30 112 24 108/80 (89) 10/27/20 02:00 116 23 124/94 (104) 10/27/20 01:30 123 25 143/106 (118) 100 10/27/20 01:00 120 24 127/84 (98) 10/27/20 00:30 116 23 126/96 (106) 10/27/20 00:00 112 10/27/20 00:00 123 24 126/104 (111) 100 10/27/20 00:00 30 10/27/20 00:00 Bi-pap 10/26/20 23:30 98.6 112 21 144/98 (113) 100 10/26/20 23:00 122 22 93/74 (80) 98 10/26/20 22:52 117 23 148/124 (132) 96 10/26/20 22:48 105 19 98 30 10/26/20 22:30 104 20 84/53 (63) 100 10/26/20 22:10 84/40 10/26/20 22:00 103 21 83/42 (56) 10/26/20 21:30 96 18 115/56 (75) 100 10/26/20 21:00 100 17 106/36 (59) 100 10/26/20 20:30 107 17 131/66 (87) 100 10/26/20 20:00 30 10/26/20 20:00 94 10/26/20 20:00 Bi-pap 10/26/20 20:00 97.8 116 22 160/90 (113) 100 10/26/20 19:30 98 21 85/48 (60) 99 10/26/20 19:17 124 21 95 30 10/26/20 19:00 95 17 116/62 (80) 99 10/26/20 18:00 116 20 108/72 (84) 10/26/20 17:00 99 16 96/43 (60) 100 10/26/20 16:10 102/30 10/26/20 16:00 30 10/26/20 16:00 Bi-pap 10/26/20 16:00 94 10/26/20 16:00 96.8 104 17 102/30 (54) 96 10/26/20 15:46 114 17 100 Bi-Pap 30 10/26/20 15:42 114 17 100 30 10/26/20 15:00 123 22 99/45 (63) 88 10/26/20 14:00 103 17 91/53 (66) 100 10/26/20 13:00 102 16 74/44 (54) 100 Intake and Output 10/26/20 10/27/20 19:00 07:00 Intake Total 1942.5 ml 1995.0 ml Output Total 110 ml 240 ml Balance 1832.5 ml 1755.0 ml Free Water 50 ml 80 ml IV Total 1832.5 ml 1645.0 ml Tube Feeding 60 ml 270 ml Output Urine Total 110 ml 240 ml Current Medications Medications (Trade) Dose Ordered Sig/Yolanda Route PRN Reason Start Time Stop Time Status Last Admin Dose Admin Acetaminophen (Tylenol) 500 mg Q6HR PRN ORAL Mild Pain 1-3 10/17/20 17:45 11/16/20 17:44 Acetaminophen (Tylenol) 500 mg Q6HR PRN ORAL fever >100 10/17/20 18:00 11/16/20 17:59 Acetaminophen (Tylenol) 650 mg Q4H PRN ORAL Pain Scale (6-10) 10/17/20 19:15 11/16/20 19:14 Apixaban (Eliquis) 2.5 mg BID ORAL 10/24/20 18:00 01/22/21 17:59 10/27/20 08:29 Chlorhexidine Gluconate (Eve-Hex 2%) 1 applic DAILY@2000 TOPIC 10/22/20 20:00 01/20/21 19:59 10/26/20 20:28 Dextrose/Sodium Chloride 1,000 ml @ 100 mls/hr Q10H IV 10/25/20 12:00 11/24/20 11:59 10/27/20 03:59 Docusate Sodium (Colace) 10 mg THREE TIMES A DAY GT 10/25/20 18:00 11/24/20 17:59 10/27/20 08:28 Furosemide (Lasix) 100 mg ONCE ONCE IV 10/27/20 12:15 10/27/20 12:16 UNV Hydrocortisone (Solu-CORTEF) 100 mg EVERY 8 HOURS IV 10/26/20 14:00 10/27/20 22:01 10/27/20 05:47 Levothyroxine Sodium (Synthroid) 50 mcg DAILY@0630 ORAL 10/19/20 06:30 11/18/20 06:29 10/27/20 05:47 Midodrine (Pro-Amatine) 10 mg Q8HR GT 10/26/20 14:00 01/16/21 13:59 10/27/20 05:47 Norepinephrine Bitartrate 250 ml @ 0 mls/hr Q24H PRN IV . 10/26/20 11:09 10/29/20 11:08 10/27/20 11:05 Ondansetron HCl (Zofran) 4 mg Q6H PRN IVP Nausea & Vomiting 10/17/20 21:15 11/16/20 21:14 Pantoprazole (Protonix) 40 mg EVERY 12 HOURS IVP 10/26/20 21:00 11/25/20 20:59 10/27/20 08:29 Piperacillin Sod/ Tazobactam Sod 3.375 gm/Sodium Chloride 110 ml @ 27.5 mls/hr Q12H IVPB 10/26/20 14:00 11/02/20 13:59 10/27/20 02:11 Laboratory Tests 10/26/20 14:44: Arterial Blood pH 7.081*L, Arterial Blood Partial Pressure CO2 86.3*H, Arterial Blood Partial Pressure O2 90.7, Arterial Blood HCO3 25.1, Arterial Blood Oxygen Saturation 95.4, Arterial Blood Base Excess -5.7L, Gallo Test Positive 10/26/20 19:21: Arterial Blood pH 7.194*L, Arterial Blood Partial Pressure CO2 59.7*H, Arterial Blood Partial Pressure O2 111.0H, Arterial Blood HCO3 22.5, Arterial Blood Oxygen Saturation 97.3, Arterial Blood Base Excess -5.9L, Gallo Test Positive 10/27/20 04:25: White Blood Count 5.5, Red Blood Count 2.83L, Hemoglobin 8.6L, Hematocrit 27.9L, Mean Corpuscular Volume 99, Mean Corpuscular Hemoglobin 30.3, Mean Corpuscular Hemoglobin Concent 30.7L, Red Cell Distribution Width 19.8H, Platelet Count 161, Mean Platelet Volume 7.8, Neutrophils (%) (Auto) , Lymphocytes (%) (Auto) , Monocytes (%) (Auto) , Eosinophils (%) (Auto) , Basophils (%) (Auto) , Differential Total Cells Counted 100, Neutrophils % (Manual) 86H, Lymphocytes % (Manual) 10L, Monocytes % (Manual) 3, Eosinophils % (Manual) 0, Basophils % (Manual) 1, Band Neutrophils 0, Platelet Estimate Adequate, Platelet Morphology Normal, Hypochromasia 1+, Anisocytosis 2+, Microcytosis Occasional, Macrocytosis 1+, Sodium Level 136, Potassium Level 3.7, Chloride Level 104, Carbon Dioxide Level 24, Anion Gap 8, Blood Urea Nitrogen 36H, Creatinine 2.3H, Estimat Glomerular Filtration Rate 20.3, Glucose Level 195H, Uric Acid 8.2H, Calcium Level 7.4L, Phosphorus Level 3.9, Magnesium Level 1.8, Total Bilirubin 0.3, Aspartate Amino Transf (AST/SGOT) 8L, Alanine Aminotransferase (ALT/SGPT) 10L, Alkaline Phosphatase 88, C-Reactive Protein, Quantitative 3.6H, Pro-B-Type Natriuretic Peptide > 97148Y, Total Protein 5.2L, Albumin 2.3L, Globulin 2.9, Albumin/Globulin Ratio 0.8L 10/27/20 11:35: Arterial Blood pH 7.185*L, Arterial Blood Partial Pressure CO2 55.8*H, Arterial Blood Partial Pressure O2 103.8H, Arterial Blood HCO3 20.6L, Arterial Blood Oxygen Saturation 96.4, Arterial Blood Base Excess -7.5L, Gallo Test Positive Height (Feet): 5 Height (Inches): 0.00 Weight (Pounds): 145 General Appearance: no apparent distress EENT: other - On BiPAP Cardiovascular: tachycardia Respiratory/Chest: decreased breath sounds Abdomen: distended Dustin Gómez MD Oct 27, 2020 12:08
--- NOTE | 2020-10-27 12:51 | General Progress Note ---
Subjective ROS Limited/Unobtainable: No Allergies: Coded Allergies: No Known Allergies (Unverified , 10/17/20) Objective Last 24 Hour Vital Signs Date Time Temp Pulse Resp B/P (MAP) Pulse Ox O2 Delivery O2 Flow Rate FiO2 10/27/20 12:00 30 10/27/20 12:00 97.6 90 19 99/44 (62) 10/27/20 11:35 91 20 100 30 10/27/20 11:05 130/60 10/27/20 11:00 96 18 130/60 (83) 100 10/27/20 10:00 98 18 113/74 (87) 100 10/27/20 09:00 104 22 105/67 (80) 98 10/27/20 08:00 98.2 111 23 117/94 (102) 98 10/27/20 08:00 88 10/27/20 08:00 30 10/27/20 08:00 Bi-pap 10/27/20 07:10 111 14 100 30 10/27/20 07:00 129 29 151/82 (105) 10/27/20 06:30 105 23 125/111 (116) 100 10/27/20 06:00 116 23 102/70 (81) 10/27/20 05:30 118 23 129/92 (104) 100 10/27/20 05:00 99 18 92/47 (62) 10/27/20 04:30 102 22 89/48 (62) 100 10/27/20 04:00 Bi-pap 10/27/20 04:00 105 10/27/20 04:00 30 10/27/20 04:00 98.5 112 26 116/66 (83) 100 10/27/20 03:58 116/84 10/27/20 03:30 106 23 110/66 (81) 100 10/27/20 03:12 70 21 94 30 10/27/20 03:00 108 23 126/68 (87) 99 10/27/20 02:30 112 24 108/80 (89) 10/27/20 02:00 116 23 124/94 (104) 10/27/20 01:30 123 25 143/106 (118) 100 10/27/20 01:00 120 24 127/84 (98) 10/27/20 00:30 116 23 126/96 (106) 10/27/20 00:00 112 10/27/20 00:00 123 24 126/104 (111) 100 10/27/20 00:00 30 10/27/20 00:00 Bi-pap 10/26/20 23:30 98.6 112 21 144/98 (113) 100 10/26/20 23:00 122 22 93/74 (80) 98 10/26/20 22:52 117 23 148/124 (132) 96 10/26/20 22:48 105 19 98 30 10/26/20 22:30 104 20 84/53 (63) 100 10/26/20 22:10 84/40 10/26/20 22:00 103 21 83/42 (56) 10/26/20 21:30 96 18 115/56 (75) 100 10/26/20 21:00 100 17 106/36 (59) 100 10/26/20 20:30 107 17 131/66 (87) 100 10/26/20 20:00 30 10/26/20 20:00 94 10/26/20 20:00 Bi-pap 10/26/20 20:00 97.8 116 22 160/90 (113) 100 10/26/20 19:30 98 21 85/48 (60) 99 10/26/20 19:17 124 21 95 30 10/26/20 19:00 95 17 116/62 (80) 99 10/26/20 18:00 116 20 108/72 (84) 10/26/20 17:00 99 16 96/43 (60) 100 10/26/20 16:10 102/30 10/26/20 16:00 30 10/26/20 16:00 Bi-pap 10/26/20 16:00 94 10/26/20 16:00 96.8 104 17 102/30 (54) 96 10/26/20 15:46 114 17 100 Bi-Pap 30 10/26/20 15:42 114 17 100 30 10/26/20 15:00 123 22 99/45 (63) 88 10/26/20 14:00 103 17 91/53 (66) 100 10/26/20 13:00 102 16 74/44 (54) 100 Intake and Output 10/26/20 10/27/20 19:00 07:00 Intake Total 1942.5 ml 1995.0 ml Output Total 110 ml 240 ml Balance 1832.5 ml 1755.0 ml Free Water 50 ml 80 ml IV Total 1832.5 ml 1645.0 ml Tube Feeding 60 ml 270 ml Output Urine Total 110 ml 240 ml Laboratory Tests 10/26/20 14:44: Arterial Blood pH 7.081*L, Arterial Blood Partial Pressure CO2 86.3*H, Arterial Blood Partial Pressure O2 90.7, Arterial Blood HCO3 25.1, Arterial Blood Oxygen Saturation 95.4, Arterial Blood Base Excess -5.7L, Gallo Test Positive 10/26/20 19:21: Arterial Blood pH 7.194*L, Arterial Blood Partial Pressure CO2 59.7*H, Arterial Blood Partial Pressure O2 111.0H, Arterial Blood HCO3 22.5, Arterial Blood Oxygen Saturation 97.3, Arterial Blood Base Excess -5.9L, Gallo Test Positive 10/27/20 04:25: White Blood Count 5.5, Red Blood Count 2.83L, Hemoglobin 8.6L, Hematocrit 27.9L, Mean Corpuscular Volume 99, Mean Corpuscular Hemoglobin 30.3, Mean Corpuscular Hemoglobin Concent 30.7L, Red Cell Distribution Width 19.8H, Platelet Count 161, Mean Platelet Volume 7.8, Neutrophils (%) (Auto) , Lymphocytes (%) (Auto) , Monocytes (%) (Auto) , Eosinophils (%) (Auto) , Basophils (%) (Auto) , Differential Total Cells Counted 100, Neutrophils % (Manual) 86H, Lymphocytes % (Manual) 10L, Monocytes % (Manual) 3, Eosinophils % (Manual) 0, Basophils % (Manual) 1, Band Neutrophils 0, Platelet Estimate Adequate, Platelet Morphology Normal, Hypochromasia 1+, Anisocytosis 2+, Microcytosis Occasional, Macrocytosis 1+, Sodium Level 136, Potassium Level 3.7, Chloride Level 104, Carbon Dioxide Level 24, Anion Gap 8, Blood Urea Nitrogen 36H, Creatinine 2.3H, Estimat Glomerular Filtration Rate 20.3, Glucose Level 195H, Uric Acid 8.2H, Calcium Level 7.4L, Phosphorus Level 3.9, Magnesium Level 1.8, Total Bilirubin 0.3, Aspartate Amino Transf (AST/SGOT) 8L, Alanine Aminotransferase (ALT/SGPT) 10L, Alkaline Phosphatase 88, C-Reactive Protein, Quantitative 3.6H, Pro-B-Type Natriuretic Peptide > 72910U, Total Protein 5.2L, Albumin 2.3L, Globulin 2.9, Albumin/Globulin Ratio 0.8L 10/27/20 11:35: Arterial Blood pH 7.185*L, Arterial Blood Partial Pressure CO2 55.8*H, Arterial Blood Partial Pressure O2 103.8H, Arterial Blood HCO3 20.6L, Arterial Blood Oxygen Saturation 96.4, Arterial Blood Base Excess -7.5L, Gallo Test Positive Height (Feet): 5 Height (Inches): 0.00 Weight (Pounds): 145 General Appearance: no apparent distress EENT: normal ENT inspection Neck: supple Cardiovascular: normal rate Respiratory/Chest: decreased breath sounds Abdomen: normal bowel sounds, non tender, soft Extremities: non-tender Assessment/Plan Problem List: (1) Hypothyroidism ICD Codes: E03.9 - Hypothyroidism, unspecified SNOMED: 30353616 (2) Pneumonia due to COVID-19 virus ICD Codes: U07.1 - COVID-19; J12.82 - Pneumonia due to coronavirus disease 2019 SNOMED: 942280350718680277 (3) Malnutrition ICD Codes: E46 - Unspecified protein-calorie malnutrition SNOMED: 64402611 (4) Decubitus skin ulcer ICD Codes: L89.90 - Pressure ulcer of unspecified site, unspecified stage SNOMED: 388815418 (5) Elevated troponin ICD Codes: R77.8 - Other specified abnormalities of plasma proteins SNOMED: 203054087, 872997373, 877437297 (6) Atrial fibrillation ICD Codes: I48.91 - Unspecified atrial fibrillation SNOMED: 28685493 (7) Anemia ICD Codes: D64.9 - Anemia, unspecified SNOMED: 711581635 Status: progressing Assessment/Plan: GTF low dose on BIPAP fu cardiology fu pulm labs for Skyler Garcia MD Oct 27, 2020 12:51
--- NOTE | 2020-10-27 13:08 | NUR ---
NURSE NOTES: Seen by Dr. Tobar with [facility].
--- NOTE | 2020-10-27 15:54 | NUR ---
NURSE NOTES: Sponge bath given. Bilateral arm with non-pitting edema, left arm a little bit weeping. V/S wnl. No s/sx of distress. No grimacing noted.
--- NOTE | 2020-10-27 17:00 | NUR ---
NURSE NOTES: Pt. urine increased after Lasix IV push, noted with sediments.
--- NOTE | 2020-10-27 19:13 | NUR ---
NURSE HAND-OFF REPORT: Latest Vital Signs: Temperature 97.2 , Pulse 105 , B/P 131 /74 , Respiratory Rate 21 , O2 SAT 100 , Simple Mask, O2 Flow Rate 2.0 . Vital Sign Comment: [] EKG Rhythm: Atrial Fibrillation Rhythm change?: N MD Notified?: - MD Response: Latest Elizabeth Fall Score: 70 Fall Risk: High Risk Safety Measures: Call light Within Reach, Bed Alarm Zone 1, Side Rails Side Rails x3, Bed position Low and Locked. Fall Precautions: Yellow Socks Patient Fall Education Report given to Salome HILL.
--- NOTE | 2020-10-27 19:54 | NUR ---
NURSE NOTES: received report from angel eugene pt on b-pap pt lethergic open eyes touch does not follows command no movement all extremities tolerating tube no residual reposition and suction
[2020-10-27] MEDS: Dyna-Hex 2% Top Sol 2oz TOPIC SCH (20:34)
[2020-10-28] VITALS (39 sets, daily range): BP systolic 86–132; BP diastolic 25–94
--- NOTE | 2020-10-28 | NUR ---
NURSE NOTES: bs 153 no coverage
[2020-10-28] MEDS: Piperacillin/Tazobactam 3.375 GM in NS 110 ML IVPB SCH ×2 (02:01→13:39)
[2020-10-28] MEDS: Norepinephrine 4mg/NS Premix 250 ML IV PRN ×3 (02:07→16:33)
--- NOTE | 2020-10-28 04:00 | NUR ---
NURSE NOTES: complete bed bath and back care
[2020-10-28 05:31] LABS: HEMATOCRIT 27.9 % (37.0-47.0); HEMOGLOBIN 8.3 G/DL (12.0-16.0); MEAN CORPUSCULAR VOLUME 99 FL (80-99); PLATELET COUNT 198 K/UL (150-450); RED BLOOD COUNT 2.82 M/UL (4.20-5.40); RED CELL DISTRIBUTION WIDTH 19.5 % (11.6-14.8); WHITE BLOOD COUNT 4.7 K/UL (4.8-10.8)
[2020-10-28 05:40] LABS: ALANINE AMINOTRANSFERASE 11 U/L (12-78); ALBUMIN 2.2 G/DL (3.4-5.0); ALBUMIN/GLOBULIN RATIO 0.7 (1.0-2.7); ALKALINE PHOSPHATASE 76 U/L (46-116); ANION GAP 10 mmol/L (5-15); ASPARTATE AMINO TRANSFERASE 7 U/L (15-37); BILIRUBIN,TOTAL 0.3 MG/DL (0.2-1.0); BLOOD UREA NITROGEN 37 mg/dL (7-18); CALCIUM 7.6 MG/DL (8.5-10.1); CARBON DIOXIDE 23 MMOL/L (21-32); CHLORIDE 105 MMOL/L (98-107); CREATININE 2.2 MG/DL (0.55-1.30); PHOSPHORUS 3.7 MG/DL (2.5-4.9); POTASSIUM 3.4 MMOL/L (3.5-5.1); SODIUM 138 MMOL/L (136-145)
[2020-10-28] MEDS: Midodrine 10mg tab GT SCH ×3 (05:45→22:20)
--- NOTE | 2020-10-28 06:59 | Hematology/Onc Progress Note ---
Assessment/Plan Assessment/Plan Assessment and recs # Anemia r/o gi bleed --> anemia panel has been ordered-->reviewed --> hgb 8.1->9.3->9.7-->9.5-->10.5-->10.2-->9.1->8.6 --> no hemolysis is noted --> transfuse on prn basis # Thrombocytopenia likely due to reactive process --> plt 138-->149-->176 --> imaging prn --> viral w/u neg # Hypercoag disorder with Atrial fibrillation --> consider anticoag as per cards --> if bleeding, consider hold anticoag # Elevated trop --> per cards # Hyperkalemia --> per renal # Acute kidney injury --> per renal # Resp failure on bipap # Recently COVID-19 positive # Dvt ppx scds --> lovenox sq Appreciate consultation and rosio eugene Subjective Constitutional: Denies: no symptoms, chills, fever, malaise, weakness, other HEENT: Denies: no symptoms, eye pain, blurred vision, tearing, double vision, ear pain, ear discharge, nose pain, nose congestion, throat pain, throat swelling, mouth pain, mouth swelling, other Cardiovascular: Denies: no symptoms, chest pain, edema, irregular heart rate, lightheadedness, palpitations, syncope, other Respiratory: Denies: no symptoms, cough, shortness of breath, SOB with excertion, SOB at rest, sputum, wheezing, other Genitourinary: Denies: no symptoms, burning, discharge, frequency, flank pain, hematuria, incontinence, pain, urgency, other Neurologic/Psychiatric: Denies: no symptoms, anxiety, depressed, emotional problems, headache, numbness, paresthesia, pre-existing deficit, seizure, tingling, tremors, weakness, other Endocrine: Denies: no symptoms, excessive sweating, flushing, intolerance to cold, intolerance to heat, increased hunger, increased thirst, increased urine, unexplained weight gain, unexplained weight loss, other Allergies: Coded Allergies: No Known Allergies (Unverified , 10/17/20) Subjective 10/19 cbc is pending, did get blood transfusion last night, pending results 10/20 meds noted, no bleeding, labs reviewed, rosio rn, no new changes 10/21 on 4l nc, has been refusing labs, meds noted, no bleeding 10/22 nc, refusing meds labs reviewed, rosio rn 10/23 is potentially for egd this am, no bleeding, cbc is noted 10/25 meds noted, no bleeidng, is on nc, no night sweats, bp bolus pending 10/26 bed bath done, meds noted, no bleeding, cbc reviewed from am 10/27 lethargic, on bipap, levophed, meds reviewed 10/28 icu, lethargic, remains on bipap, pressors Objective Objective Current Medications Medications (Trade) Dose Ordered Sig/Yolanda Route PRN Reason Start Time Stop Time Status Last Admin Dose Admin Acetaminophen (Tylenol) 500 mg Q6HR PRN ORAL Mild Pain 1-3 10/17/20 17:45 11/16/20 17:44 Acetaminophen (Tylenol) 500 mg Q6HR PRN ORAL fever >100 10/17/20 18:00 11/16/20 17:59 Acetaminophen (Tylenol) 650 mg Q4H PRN ORAL Pain Scale (6-10) 10/17/20 19:15 11/16/20 19:14 Apixaban (Eliquis) 2.5 mg BID ORAL 10/24/20 18:00 01/22/21 17:59 10/27/20 18:04 Chlorhexidine Gluconate (Eve-Hex 2%) 1 applic DAILY@2000 TOPIC 10/22/20 20:00 01/20/21 19:59 10/27/20 20:34 Dextrose/Sodium Chloride 1,000 ml @ 100 mls/hr Q10H IV 10/25/20 12:00 11/24/20 11:59 10/27/20 23:47 Docusate Sodium (Colace) 10 mg THREE TIMES A DAY GT 10/25/20 18:00 11/24/20 17:59 10/27/20 18:04 Levothyroxine Sodium (Synthroid) 50 mcg DAILY@0630 ORAL 10/19/20 06:30 11/18/20 06:29 10/28/20 05:45 Midodrine (Pro-Amatine) 10 mg Q8HR GT 10/26/20 14:00 01/16/21 13:59 10/28/20 05:45 Norepinephrine Bitartrate 250 ml @ 0 mls/hr Q24H PRN IV . 10/26/20 11:09 10/29/20 11:08 10/28/20 02:07 Ondansetron HCl (Zofran) 4 mg Q6H PRN IVP Nausea & Vomiting 10/17/20 21:15 11/16/20 21:14 Pantoprazole (Protonix) 40 mg EVERY 12 HOURS IVP 10/26/20 21:00 11/25/20 20:59 10/27/20 20:34 Piperacillin Sod/ Tazobactam Sod 3.375 gm/Sodium Chloride 110 ml @ 27.5 mls/hr Q12H IVPB 10/26/20 14:00 11/02/20 13:59 10/28/20 02:01 Last 24 Hour Vital Signs Date Time Temp Pulse Resp B/P (MAP) Pulse Ox O2 Delivery O2 Flow Rate FiO2 10/28/20 06:00 96 17 94/45 (61) 100 10/28/20 05:30 96 18 87/42 (57) 100 10/28/20 05:00 95 16 94/30 (51) 100 10/28/20 04:30 107 18 98/31 (53) 98 10/28/20 04:00 97.6 107 18 90/31 (50) 100 10/28/20 04:00 30 10/28/20 04:00 103 10/28/20 04:00 Bi-pap 10/28/20 03:30 102 20 100 30 10/28/20 03:30 103 19 87/39 (55) 100 10/28/20 03:00 107 19 106/25 (52) 100 10/28/20 02:30 103 19 100/50 (67) 100 10/28/20 02:07 98/48 10/28/20 02:00 94 20 98/48 (65) 100 10/28/20 01:30 104 22 100/52 (68) 100 10/28/20 01:30 104 22 110/56 (74) 100 10/28/20 01:15 100 21 112/53 (72) 100 10/28/20 01:00 93 17 114/53 (73) 100 10/28/20 01:00 93 17 114/53 (73) 100 10/28/20 00:45 94 18 109/50 (69) 100 10/28/20 00:30 97 17 115/53 (73) 100 10/28/20 00:30 97 17 115/53 (73) 100 10/28/20 00:15 100 19 132/57 (82) 100 10/28/20 00:00 Bi-pap 10/28/20 00:00 30 10/28/20 00:00 105 10/28/20 00:00 98.0 99 19 118/55 (76) 100 10/28/20 00:00 99 19 118/55 (76) 100 10/27/20 23:30 103 19 100 30 10/27/20 23:30 104 21 131/58 (82) 100 10/27/20 23:00 96 17 109/48 (68) 100 10/27/20 22:00 95 17 126/50 (75) 100 10/27/20 21:30 99 18 103/47 (65) 10/27/20 21:00 102 18 125/60 (81) 100 10/27/20 20:30 99 16 104/52 (69) 100 10/27/20 20:00 72 10/27/20 20:00 97.4 96 16 108/55 (72) 100 10/27/20 20:00 Bi-pap 10/27/20 20:00 30 10/27/20 19:30 99 18 129/55 (79) 100 10/27/20 19:30 91 16 100 30 10/27/20 19:00 105 21 131/74 (93) 10/27/20 18:05 98/67 10/27/20 18:00 103 19 130/67 (88) 100 10/27/20 17:00 98 18 122/71 (88) 100 10/27/20 16:00 86 10/27/20 16:00 30 10/27/20 16:00 Bi-pap 10/27/20 16:00 97.2 100 18 126/80 (95) 100 10/27/20 15:18 97 22 100 30 10/27/20 15:00 104 21 125/56 (79) 100 10/27/20 14:00 102 17 116/66 (83) 99 10/27/20 13:00 94 17 108/49 (68) 10/27/20 12:00 30 10/27/20 12:00 114 10/27/20 12:00 Bi-pap 10/27/20 12:00 97.6 90 19 99/44 (62) 10/27/20 11:35 91 20 100 30 10/27/20 11:05 130/60 10/27/20 11:00 96 18 130/60 (83) 100 10/27/20 10:00 98 18 113/74 (87) 100 10/27/20 09:00 104 22 105/67 (80) 98 10/27/20 08:00 98.2 111 23 117/94 (102) 98 10/27/20 08:00 88 10/27/20 08:00 30 10/27/20 08:00 Bi-pap 10/27/20 07:10 111 14 100 30 10/27/20 07:00 129 29 151/82 (105) 10/27/20 06:30 105 23 125/111 (116) 100 10/27/20 06:00 116 23 102/70 (81) 10/27/20 05:30 118 23 129/92 (104) 100 10/27/20 05:00 99 18 92/47 (62) 10/27/20 04:30 102 22 89/48 (62) 100 10/27/20 04:00 Bi-pap 10/27/20 04:00 105 10/27/20 04:00 30 10/27/20 04:00 98.5 112 26 116/66 (83) 100 10/27/20 03:58 116/84 10/27/20 03:30 106 23 110/66 (81) 100 10/27/20 03:12 70 21 94 30 10/27/20 03:00 108 23 126/68 (87) 99 10/27/20 02:30 112 24 108/80 (89) 10/27/20 02:00 116 23 124/94 (104) 10/27/20 01:30 123 25 143/106 (118) 100 10/27/20 01:00 120 24 127/84 (98) 10/27/20 00:30 116 23 126/96 (106) 10/27/20 00:00 112 10/27/20 00:00 123 24 126/104 (111) 100 10/27/20 00:00 30 10/27/20 00:00 Bi-pap 10/26/20 23:30 98.6 112 21 144/98 (113) 100 10/26/20 23:00 122 22 93/74 (80) 98 10/26/20 22:52 117 23 148/124 (132) 96 10/26/20 22:48 105 19 98 30 10/26/20 22:30 104 20 84/53 (63) 100 10/26/20 22:10 84/40 10/26/20 22:00 103 21 83/42 (56) 10/26/20 21:30 96 18 115/56 (75) 100 10/26/20 21:00 100 17 106/36 (59) 100 10/26/20 20:30 107 17 131/66 (87) 100 10/26/20 20:00 30 10/26/20 20:00 94 10/26/20 20:00 Bi-pap 10/26/20 20:00 97.8 116 22 160/90 (113) 100 10/26/20 19:30 98 21 85/48 (60) 99 10/26/20 19:17 124 21 95 30 10/26/20 19:00 95 17 116/62 (80) 99 10/26/20 18:00 116 20 108/72 (84) 10/26/20 17:00 99 16 96/43 (60) 100 10/26/20 16:10 102/30 10/26/20 16:00 30 10/26/20 16:00 Bi-pap 10/26/20 16:00 94 10/26/20 16:00 96.8 104 17 102/30 (54) 96 10/26/20 15:46 114 17 100 Bi-Pap 30 10/26/20 15:42 114 17 100 30 10/26/20 15:00 123 22 99/45 (63) 88 10/26/20 14:00 103 17 91/53 (66) 100 10/26/20 13:00 102 16 74/44 (54) 100 10/26/20 12:00 96.8 106 16 95/57 (70) 10/26/20 12:00 Nasal Cannula 2.0 10/26/20 12:00 105 10/26/20 11:15 114 23 100/77 (85) 99 10/26/20 11:14 88/42 10/26/20 11:00 104 21 66/49 (55) 100 10/26/20 10:00 107 18 86/55 (65) 95 10/26/20 09:00 Nasal Cannula 3.0 10/26/20 09:00 96 18 88/42 (57) 98 10/26/20 08:00 96.5 118 22 104/64 (77) 92 10/26/20 08:00 97 10/26/20 07:00 103 18 82/58 (66) 92 Intake and Output 10/27/20 10/28/20 19:00 07:00 Intake Total 2040.0 ml 1965.0 ml Output Total 300 ml 690 ml Balance 1740.0 ml 1275.0 ml Free Water 200 ml 50 ml IV Total 1450.0 ml 1485.0 ml Tube Feeding 390 ml 430 ml Output Urine Total 300 ml 690 ml # Bowel Movements 1 Labs Test 10/25/20 08:45 10/25/20 12:31 10/25/20 13:28 10/26/20 02:04 White Blood Count 6.8 K/UL (4.8-10.8) Red Blood Count 3.39 M/UL (4.20-5.40) Hemoglobin 10.2 G/DL (12.0-16.0) Hematocrit 32.8 % (37.0-47.0) Mean Corpuscular Volume 97 FL (80-99) Mean Corpuscular Hemoglobin 29.9 PG (27.0-31.0) Mean Corpuscular Hemoglobin Concent 31.0 G/DL (32.0-36.0) Red Cell Distribution Width 18.9 % (11.6-14.8) Platelet Count 148 K/UL (150-450) Mean Platelet Volume 8.3 FL (6.5-10.1) Neutrophils (%) (Auto) % (45.0-75.0) Lymphocytes (%) (Auto) % (20.0-45.0) Monocytes (%) (Auto) % (1.0-10.0) Eosinophils (%) (Auto) % (0.0-3.0) Basophils (%) (Auto) % (0.0-2.0) Differential Total Cells Counted 100 Neutrophils % (Manual) 72 % (45-75) Lymphocytes % (Manual) 14 % (20-45) Monocytes % (Manual) 6 % (1-10) Eosinophils % (Manual) 0 % (0-3) Basophils % (Manual) 0 % (0-2) Band Neutrophils 8 % (0-8) Platelet Estimate Decreased Platelet Morphology Normal Anisocytosis 1+ Sodium Level 137 MMOL/L (136-145) Potassium Level 3.9 MMOL/L (3.5-5.1) Chloride Level 103 MMOL/L (98-107) Carbon Dioxide Level 28 MMOL/L (21-32) Anion Gap 6 mmol/L (5-15) Blood Urea Nitrogen 36 mg/dL (7-18) Creatinine 2.1 MG/DL (0.55-1.30) Estimat Glomerular Filtration Rate 22.5 mL/min (>60) Glucose Level 149 MG/DL (74-106) Calcium Level 7.8 MG/DL (8.5-10.1) Phosphorus Level 3.0 MG/DL (2.5-4.9) Magnesium Level 1.9 MG/DL (1.8-2.4) Total Bilirubin 0.5 MG/DL (0.2-1.0) Aspartate Amino Transf (AST/SGOT) 11 U/L (15-37) Alanine Aminotransferase (ALT/SGPT) 7 U/L (12-78) Alkaline Phosphatase 86 U/L (46-116) C-Reactive Protein, Quantitative 4.4 mg/dL (0.00-0.90) Pro-B-Type Natriuretic Peptide > 91360 pg/mL (0-125) Total Protein 5.5 G/DL (6.4-8.2) Albumin 2.3 G/DL (3.4-5.0) Globulin 3.2 g/dL Albumin/Globulin Ratio 0.7 (1.0-2.7) Arterial Blood pH 7.240 (7.350-7.450) Arterial Blood Partial Pressure CO2 62.7 mmHg (35.0-45.0) Arterial Blood Partial Pressure O2 150.2 mmHg (75.0-100.0) Arterial Blood HCO3 26.3 mmol/L (22.0-26.0) Arterial Blood Oxygen Saturation 98.4 % (95-100) Arterial Blood Base Excess -1.6 (-2-2) Gallo Test Positive POC Whole Blood Glucose 148 MG/DL (74-106) 150 MG/DL (74-106) Test 10/26/20 04:33 10/26/20 05:21 10/26/20 14:44 10/26/20 19:21 White Blood Count 8.2 K/UL (4.8-10.8) Red Blood Count 3.02 M/UL (4.20-5.40) Hemoglobin 9.1 G/DL (12.0-16.0) Hematocrit 30.0 % (37.0-47.0) Mean Corpuscular Volume 100 FL (80-99) Mean Corpuscular Hemoglobin 30.1 PG (27.0-31.0) Mean Corpuscular Hemoglobin Concent 30.3 G/DL (32.0-36.0) Red Cell Distribution Width 19.9 % (11.6-14.8) Platelet Count 176 K/UL (150-450) Mean Platelet Volume 8.1 FL (6.5-10.1) Neutrophils (%) (Auto) % (45.0-75.0) Lymphocytes (%) (Auto) % (20.0-45.0) Monocytes (%) (Auto) % (1.0-10.0) Eosinophils (%) (Auto) % (0.0-3.0) Basophils (%) (Auto) % (0.0-2.0) Differential Total Cells Counted 100 Neutrophils % (Manual) 88 % (45-75) Lymphocytes % (Manual) 6 % (20-45) Monocytes % (Manual) 6 % (1-10) Eosinophils % (Manual) 0 % (0-3) Basophils % (Manual) 0 % (0-2) Band Neutrophils 0 % (0-8) Platelet Estimate Adequate Platelet Morphology Normal Hypochromasia 1+ Anisocytosis 1+ Macrocytosis 1+ Ovalocytes Occasional Sodium Level 135 MMOL/L (136-145) Potassium Level 3.8 MMOL/L (3.5-5.1) Chloride Level 102 MMOL/L (98-107) Carbon Dioxide Level 26 MMOL/L (21-32) Anion Gap 7 mmol/L (5-15) Blood Urea Nitrogen 33 mg/dL (7-18) Creatinine 2.1 MG/DL (0.55-1.30) Estimat Glomerular Filtration Rate 22.5 mL/min (>60) Glucose Level 180 MG/DL (74-106) Lactic Acid Level 0.60 mmol/L (0.4-2.0) Uric Acid 8.2 MG/DL (2.6-7.2) Calcium Level 7.6 MG/DL (8.5-10.1) Phosphorus Level 4.2 MG/DL (2.5-4.9) Magnesium Level 2.1 MG/DL (1.8-2.4) Total Bilirubin 0.4 MG/DL (0.2-1.0) Aspartate Amino Transf (AST/SGOT) 9 U/L (15-37) Alanine Aminotransferase (ALT/SGPT) < 6 U/L (12-78) Alkaline Phosphatase 85 U/L (46-116) Troponin I 0.179 ng/mL (0.000-0.056) Total Protein 5.4 G/DL (6.4-8.2) Albumin 2.6 G/DL (3.4-5.0) Globulin 2.8 g/dL Albumin/Globulin Ratio 0.9 (1.0-2.7) POC Whole Blood Glucose 165 MG/DL (74-106) Arterial Blood pH 7.081 (7.350-7.450) 7.194 (7.350-7.450) Arterial Blood Partial Pressure CO2 86.3 mmHg (35.0-45.0) 59.7 mmHg (35.0-45.0) Arterial Blood Partial Pressure O2 90.7 mmHg (75.0-100.0) 111.0 mmHg (75.0-100.0) Arterial Blood HCO3 25.1 mmol/L (22.0-26.0) 22.5 mmol/L (22.0-26.0) Arterial Blood Oxygen Saturation 95.4 % (95-100) 97.3 % (95-100) Arterial Blood Base Excess -5.7 (-2-2) -5.9 (-2-2) Gallo Test Positive Positive Test 10/27/20 04:25 10/27/20 11:35 10/28/20 04:20 White Blood Count 5.5 K/UL (4.8-10.8) 4.7 K/UL (4.8-10.8) Red Blood Count 2.83 M/UL (4.20-5.40) 2.82 M/UL (4.20-5.40) Hemoglobin 8.6 G/DL (12.0-16.0) 8.3 G/DL (12.0-16.0) Hematocrit 27.9 % (37.0-47.0) 27.9 % (37.0-47.0) Mean Corpuscular Volume 99 FL (80-99) 99 FL (80-99) Mean Corpuscular Hemoglobin 30.3 PG (27.0-31.0) 29.4 PG (27.0-31.0) Mean Corpuscular Hemoglobin Concent 30.7 G/DL (32.0-36.0) 29.7 G/DL (32.0-36.0) Red Cell Distribution Width 19.8 % (11.6-14.8) 19.5 % (11.6-14.8) Platelet Count 161 K/UL (150-450) 198 K/UL (150-450) Mean Platelet Volume 7.8 FL (6.5-10.1) 7.7 FL (6.5-10.1) Neutrophils (%) (Auto) % (45.0-75.0) % (45.0-75.0) Lymphocytes (%) (Auto) % (20.0-45.0) % (20.0-45.0) Monocytes (%) (Auto) % (1.0-10.0) % (1.0-10.0) Eosinophils (%) (Auto) % (0.0-3.0) % (0.0-3.0) Basophils (%) (Auto) % (0.0-2.0) % (0.0-2.0) Differential Total Cells Counted 100 Neutrophils % (Manual) 86 % (45-75) Lymphocytes % (Manual) 10 % (20-45) Monocytes % (Manual) 3 % (1-10) Eosinophils % (Manual) 0 % (0-3) Basophils % (Manual) 1 % (0-2) Band Neutrophils 0 % (0-8) Platelet Estimate Adequate Platelet Morphology Normal Hypochromasia 1+ Anisocytosis 2+ Microcytosis Occasional Macrocytosis 1+ Sodium Level 136 MMOL/L (136-145) 138 MMOL/L (136-145) Potassium Level 3.7 MMOL/L (3.5-5.1) 3.4 MMOL/L (3.5-5.1) Chloride Level 104 MMOL/L (98-107) 105 MMOL/L (98-107) Carbon Dioxide Level 24 MMOL/L (21-32) 23 MMOL/L (21-32) Anion Gap 8 mmol/L (5-15) 10 mmol/L (5-15) Blood Urea Nitrogen 36 mg/dL (7-18) 37 mg/dL (7-18) Creatinine 2.3 MG/DL (0.55-1.30) 2.2 MG/DL (0.55-1.30) Estimat Glomerular Filtration Rate 20.3 mL/min (>60) 21.3 mL/min (>60) Glucose Level 195 MG/DL (74-106) 197 MG/DL (74-106) Uric Acid 8.2 MG/DL (2.6-7.2) 8.0 MG/DL (2.6-7.2) Calcium Level 7.4 MG/DL (8.5-10.1) 7.6 MG/DL (8.5-10.1) Phosphorus Level 3.9 MG/DL (2.5-4.9) 3.7 MG/DL (2.5-4.9) Magnesium Level 1.8 MG/DL (1.8-2.4) 1.5 MG/DL (1.8-2.4) Total Bilirubin 0.3 MG/DL (0.2-1.0) 0.3 MG/DL (0.2-1.0) Aspartate Amino Transf (AST/SGOT) 8 U/L (15-37) 7 U/L (15-37) Alanine Aminotransferase (ALT/SGPT) 10 U/L (12-78) 11 U/L (12-78) Alkaline Phosphatase 88 U/L (46-116) 76 U/L (46-116) C-Reactive Protein, Quantitative 3.6 mg/dL (0.00-0.90) 2.0 mg/dL (0.00-0.90) Pro-B-Type Natriuretic Peptide > 10116 pg/mL (0-125) > 82099 pg/mL (0-125) Total Protein 5.2 G/DL (6.4-8.2) 5.2 G/DL (6.4-8.2) Albumin 2.3 G/DL (3.4-5.0) 2.2 G/DL (3.4-5.0) Globulin 2.9 g/dL 3.0 g/dL Albumin/Globulin Ratio 0.8 (1.0-2.7) 0.7 (1.0-2.7) Arterial Blood pH 7.185 (7.350-7.450) Arterial Blood Partial Pressure CO2 55.8 mmHg (35.0-45.0) Arterial Blood Partial Pressure O2 103.8 mmHg (75.0-100.0) Arterial Blood HCO3 20.6 mmol/L (22.0-26.0) Arterial Blood Oxygen Saturation 96.4 % (95-100) Arterial Blood Base Excess -7.5 (-2-2) Gallo Test Positive Height (Feet): 5 Height (Inches): 0.00 Weight (Pounds): 145 Objective Physical Exam General: Awake and alert, no acute distress HEENT: NC/AT. EOMI. Cardiovascular: Irregularly irregular rhythm. Normal heart rate Resp: Normal work of breathing. + bipap Abdomen: Abdomen is soft, nondistended. Nontender Skin: Intact. No abrasions, laceration or rash over the exposed skin MSK: Normal tone and bulk. Moving all extremities. No obvious deformity. Neuro: Awake and alert. Mentating appropriately. Hawk Ma MD Oct 28, 2020 06:59
--- NOTE | 2020-10-28 07:36 | NUR ---
NURSE HAND-OFF REPORT: Latest Vital Signs: Temperature 97.6 , Pulse 94 , B/P 94 /94 , Respiratory Rate 17 , O2 SAT 100 , Simple Mask, O2 Flow Rate 2.0 . Vital Sign Comment: EKG Rhythm: Atrial Fibrillation Rhythm change?: N MD Notified?: - MD Response: Latest Elizabeth Fall Score: 70 Fall Risk: High Risk Safety Measures: Call light Within Reach, Bed Alarm Zone 1, Side Rails Side Rails x3, Bed position Low and Locked. Fall Precautions: Yellow Socks Patient Fall Education Report given to linda eugene using sbar .
--- NOTE | 2020-10-28 07:37 | NUR ---
NURSE NOTES: Received report from Evita Higginbotham RN. Patient in bed resting, A. fib with HR 95, Patient on bipap as tolerated. Right femoral TLC patent, intact, on Levophed 10mcg/min and IVF on D5 NS @ 100ml/h. Bed in lowest position, side rails upx3, call light within reach, bed alarm on, Will continue to monitor.
[2020-10-28] MEDS: Eliquis 2.5mg tablet ORAL SCH ×2 (09:00→17:32)
--- NOTE | 2020-10-28 09:04 | NUR ---
NURSE NOTES: Informed Dr. Ma via telephone regarding today's hgb level, and that patient was positive for OB stool. said that it's OK to hold eliquis dose today.
[2020-10-28] MEDS: Pantoprazole Inj IVP SCH ×2 (09:06→20:34)
[2020-10-28] MEDS: D5NS 1,000 ML IV SCH ×2 (09:07→20:00)
[2020-10-28] MEDS ORDERED: D5NS 1000ml IV ONE (09:34)
[2020-10-28] MEDS ORDERED: NS 275ml ONE (09:34)
[2020-10-28] MEDS ORDERED: Tubing IV Secondary IV ONE (09:34)
--- NOTE | 2020-10-28 09:45 | General Progress Note ---
Subjective ROS Limited/Unobtainable: No Allergies: Coded Allergies: No Known Allergies (Unverified , 10/17/20) Objective Last 24 Hour Vital Signs Date Time Temp Pulse Resp B/P (MAP) Pulse Ox O2 Delivery O2 Flow Rate FiO2 10/28/20 08:05 24 10/28/20 08:00 30 10/28/20 08:00 Bi-pap 10/28/20 08:00 98.1 99 16 111/65 (80) 10/28/20 07:46 106 10/28/20 07:30 102 17 106/47 (66) 10/28/20 07:00 94 17 94/94 (94) 100 10/28/20 06:00 96 17 94/45 (61) 100 10/28/20 05:30 96 18 87/42 (57) 100 10/28/20 05:00 95 16 94/30 (51) 100 10/28/20 04:30 107 18 98/31 (53) 98 10/28/20 04:00 97.6 107 18 90/31 (50) 100 10/28/20 04:00 30 10/28/20 04:00 103 10/28/20 04:00 Bi-pap 10/28/20 03:30 102 20 100 30 10/28/20 03:30 103 19 87/39 (55) 100 10/28/20 03:00 107 19 106/25 (52) 100 10/28/20 02:30 103 19 100/50 (67) 100 10/28/20 02:07 98/48 10/28/20 02:00 94 20 98/48 (65) 100 10/28/20 01:30 104 22 100/52 (68) 100 10/28/20 01:30 104 22 110/56 (74) 100 10/28/20 01:15 100 21 112/53 (72) 100 10/28/20 01:00 93 17 114/53 (73) 100 10/28/20 01:00 93 17 114/53 (73) 100 10/28/20 00:45 94 18 109/50 (69) 100 10/28/20 00:30 97 17 115/53 (73) 100 10/28/20 00:30 97 17 115/53 (73) 100 10/28/20 00:15 100 19 132/57 (82) 100 10/28/20 00:00 Bi-pap 10/28/20 00:00 30 10/28/20 00:00 105 10/28/20 00:00 98.0 99 19 118/55 (76) 100 10/28/20 00:00 99 19 118/55 (76) 100 10/27/20 23:30 103 19 100 30 10/27/20 23:30 104 21 131/58 (82) 100 10/27/20 23:00 96 17 109/48 (68) 100 10/27/20 22:00 95 17 126/50 (75) 100 10/27/20 21:30 99 18 103/47 (65) 10/27/20 21:00 102 18 125/60 (81) 100 10/27/20 20:30 99 16 104/52 (69) 100 10/27/20 20:00 72 10/27/20 20:00 97.4 96 16 108/55 (72) 100 10/27/20 20:00 Bi-pap 10/27/20 20:00 30 10/27/20 19:30 99 18 129/55 (79) 100 10/27/20 19:30 91 16 100 30 10/27/20 19:00 105 21 131/74 (93) 10/27/20 18:05 98/67 10/27/20 18:00 103 19 130/67 (88) 100 10/27/20 17:00 98 18 122/71 (88) 100 10/27/20 16:00 86 10/27/20 16:00 30 10/27/20 16:00 Bi-pap 10/27/20 16:00 97.2 100 18 126/80 (95) 100 10/27/20 15:18 97 22 100 30 10/27/20 15:00 104 21 125/56 (79) 100 10/27/20 14:00 102 17 116/66 (83) 99 10/27/20 13:00 94 17 108/49 (68) 10/27/20 12:00 30 10/27/20 12:00 114 10/27/20 12:00 Bi-pap 10/27/20 12:00 97.6 90 19 99/44 (62) 10/27/20 11:35 91 20 100 30 10/27/20 11:05 130/60 10/27/20 11:00 96 18 130/60 (83) 100 10/27/20 10:00 98 18 113/74 (87) 100 Intake and Output 0 10/27/20 10/28/20 19:00 07:00 Intake Total 2040.0 ml 2102.5 ml Output Total 300 ml 740 ml Balance 1740.0 ml 1362.5 ml Free Water 200 ml 50 ml IV Total 1450.0 ml 1622.5 ml Tube Feeding 390 ml 430 ml Output Urine Total 300 ml 740 ml # Bowel Movements 1 Laboratory Tests 10/27/20 11:35: Arterial Blood pH 7.185*L, Arterial Blood Partial Pressure CO2 55.8*H, Arterial Blood Partial Pressure O2 103.8H, Arterial Blood HCO3 20.6L, Arterial Blood Oxygen Saturation 96.4, Arterial Blood Base Excess -7.5L, Gallo Test Positive 10/28/20 04:20: White Blood Count 4.7L, Red Blood Count 2.82L, Hemoglobin 8.3L, Hematocrit 27.9L , Mean Corpuscular Volume 99, Mean Corpuscular Hemoglobin 29.4, Mean Corpuscular Hemoglobin Concent 29.7L, Red Cell Distribution Width 19.5H, Platelet Count 198, Mean Platelet Volume 7.7, Neutrophils (%) (Auto) , Lymphocytes (%) (Auto) , Monocytes (%) (Auto) , Eosinophils (%) (Auto) , Basophils (%) (Auto) , Neutrophils % (Manual) [Pending], Lymphocytes % (Manual) [Pending], Platelet Estimate [Pending], Platelet Morphology [Pending], Sodium Level 138, Potassium Level 3.4L, Chloride Level 105, Carbon Dioxide Level 23, Anion Gap 10, Blood Urea Nitrogen 37H, Creatinine 2.2H, Estimat Glomerular Filtration Rate 21.3, Glucose Level 197H, Uric Acid 8.0H, Calcium Level 7.6L, Phosphorus Level 3.7, Magnesium Level 1.5L, Total Bilirubin 0.3, Aspartate Amino Transf (AST/SGOT) 7L, Alanine Aminotransferase (ALT/SGPT) 11L, Alkaline Phosphatase 76, C-Reactive Protein, Quantitative 2.0H, Pro-B-Type Natriuretic Peptide > 80790B, Total Protein 5.2L, Albumin 2.2L, Globulin 3.0, Albumin/Globulin Ratio 0.7L Height (Feet): 5 Height (Inches): 0.00 Weight (Pounds): 145 General Appearance: lethargic EENT: normal ENT inspection Neck: supple Cardiovascular: normal rate Respiratory/Chest: decreased breath sounds Abdomen: hypoactive bowel sounds Extremities: non-tender Assessment/Plan Problem List: (1) Hypothyroidism ICD Codes: E03.9 - Hypothyroidism, unspecified SNOMED: 34553009 (2) Pneumonia due to COVID-19 virus ICD Codes: U07.1 - COVID-19; J12.82 - Pneumonia due to coronavirus disease 2019 SNOMED: 435058318043456772 (3) Malnutrition ICD Codes: E46 - Unspecified protein-calorie malnutrition SNOMED: 22976439 (4) Decubitus skin ulcer ICD Codes: L89.90 - Pressure ulcer of unspecified site, unspecified stage SNOMED: 216075624 (5) Elevated troponin ICD Codes: R77.8 - Other specified abnormalities of plasma proteins SNOMED: 633805747, 498768550, 972739447 (6) Atrial fibrillation ICD Codes: I48.91 - Unspecified atrial fibrillation SNOMED: 05771635 (7) Anemia ICD Codes: D64.9 - Anemia, unspecified SNOMED: 423871637 Status: progressing Assessment/Plan: GTF on BIPAP fu cardiology fu pulm labs for Skyler Garcia MD Oct 28, 2020 09:45
--- NOTE | 2020-10-28 09:45 | NUR ---
NURSE HAND-OFF REPORT: Latest Vital Signs: Temperature 98.1 , Pulse 98 , B/P 119 /73 , Respiratory Rate 18 , O2 SAT 100 , Simple Mask, O2 Flow Rate 2.0 . Vital Sign Comment: On levophed drip EKG Rhythm: Atrial Fibrillation Rhythm change?: N Latest Elizabeth Fall Score: 70 Fall Risk: High Risk Safety Measures: Call light Within Reach, Bed Alarm Zone 1, Side Rails Side Rails x3, Bed position Low and Locked. Fall Precautions: Yellow Socks Patient Fall Education Report given to Dayna Mendoza RN.
--- NOTE | 2020-10-28 09:45 | NUR ---
NURSE NOTES: Received report from Angela Amaro RN
[2020-10-28] MEDS ORDERED: SODIUM CHLORIDE IVPB ONE (10:00)
[2020-10-28] MEDS ORDERED: MAGNESIUM SULFATE IVPB ONE (10:00)
--- NOTE | 2020-10-28 10:11 | Nephrology Progress Note ---
Assessment/Plan Problem List: (1) Acute kidney injury (2) Anemia (3) Hyperkalemia (4) Elevated troponin (5) Pneumonia due to COVID-19 virus (6) Hypothyroidism Assessment Plan October 28: Seen in ICU. Remains on BiPAP. Low potassium and low magnesium addressed. Serum creatinine plateaued at 2.2. Continue per current treatment plan. October 27: Patient in ICU. On BiPAP. Serum creatinine rising. Blood pressure more stable. Will give 100 mg Lasix IV push with the hope of reversing oliguria. Medication list reviewed. Continue to monitor renal parameters. October 26: Seen in ICU. On pressors for low blood pressure. Serum creatinine 2.1. Albumin bolus given. Stress dose of steroids initiated. Continue to monitor renal parameters. Continue per consultants. October 25: Patient seen and examined. Trendelenburg. Blood pressure low. Tachycardic. Discussed with RN. Patient to be transferred to ICU. Discussed with ICU charge nurse and hospital charge nurse. Meanwhile patient started on Albumin bolus and 100 cc an hour D5 normal saline. Patient to be started on pressors while in ICU. Patient full code. October 24: No CHEM panel drawn today.. Renal parameters stable. Patient had a GT placed yesterday. Will check labs tomorrow. Medication list reviewed. October 23: Labs reviewed. Renal parameters unchanged. Creatinine 1.9. Continue current management. Medication list reviewed. October 22: Labs reviewed. Serum creatinine lower at 1.8. Patient started on clear liquid. Patient refuses p.o. medications and food at times. Continue per consultants. October 21: Labs reviewed. Serum creatinine unchanged. Continue per consultants. Continue to monitor renal parameters. October 20: Today's labs reviewed. Serum creatinine unchanged. RN reports patient not taking any p.o. meds. Continue per consultants. Serum creatinine appears to be baseline. October 19: Today's labs still not done yet. RN informed. Albumin bolus given again. Continue to monitor electrolytes and renal parameters. Per orders October 18: Patient hypotensive. Due for blood transfusion. Will give albumin bolus. Continue to monitor renal parameters and electrolytes. Labs and medication list reviewed Subjective ROS Limited/Unobtainable: Yes Objective Objective Last 24 Hour Vital Signs Date Time Temp Pulse Resp B/P (MAP) Pulse Ox O2 Delivery O2 Flow Rate FiO2 10/28/20 09:47 119/73 10/28/20 09:30 98 18 119/63 (81) 10/28/20 09:15 103 21 104/60 (75) 10/28/20 09:00 105 22 97/53 (68) 10/28/20 08:45 98 16 123/51 (75) 10/28/20 08:30 108 20 117/81 (93) 10/28/20 08:05 24 10/28/20 08:00 30 10/28/20 08:00 Bi-pap 10/28/20 08:00 98.1 99 16 111/65 (80) 10/28/20 07:46 106 10/28/20 07:30 102 17 106/47 (66) 10/28/20 07:00 94 17 94/94 (94) 100 10/28/20 06:00 96 17 94/45 (61) 100 10/28/20 05:30 96 18 87/42 (57) 100 10/28/20 05:00 95 16 94/30 (51) 100 10/28/20 04:30 107 18 98/31 (53) 98 10/28/20 04:00 97.6 107 18 90/31 (50) 100 10/28/20 04:00 30 10/28/20 04:00 103 10/28/20 04:00 Bi-pap 10/28/20 03:30 102 20 100 30 10/28/20 03:30 103 19 87/39 (55) 100 10/28/20 03:00 107 19 106/25 (52) 100 10/28/20 02:30 103 19 100/50 (67) 100 10/28/20 02:07 98/48 10/28/20 02:00 94 20 98/48 (65) 100 10/28/20 01:30 104 22 100/52 (68) 100 10/28/20 01:30 104 22 110/56 (74) 100 10/28/20 01:15 100 21 112/53 (72) 100 10/28/20 01:00 93 17 114/53 (73) 100 10/28/20 01:00 93 17 114/53 (73) 100 10/28/20 00:45 94 18 109/50 (69) 100 10/28/20 00:30 97 17 115/53 (73) 100 10/28/20 00:30 97 17 115/53 (73) 100 10/28/20 00:15 100 19 132/57 (82) 100 10/28/20 00:00 Bi-pap 10/28/20 00:00 30 10/28/20 00:00 105 10/28/20 00:00 98.0 99 19 118/55 (76) 100 10/28/20 00:00 99 19 118/55 (76) 100 10/27/20 23:30 103 19 100 30 10/27/20 23:30 104 21 131/58 (82) 100 10/27/20 23:00 96 17 109/48 (68) 100 10/27/20 22:00 95 17 126/50 (75) 100 10/27/20 21:30 99 18 103/47 (65) 10/27/20 21:00 102 18 125/60 (81) 100 10/27/20 20:30 99 16 104/52 (69) 100 10/27/20 20:00 72 10/27/20 20:00 97.4 96 16 108/55 (72) 100 10/27/20 20:00 Bi-pap 10/27/20 20:00 30 10/27/20 19:30 99 18 129/55 (79) 100 10/27/20 19:30 91 16 100 30 10/27/20 19:00 105 21 131/74 (93) 10/27/20 18:05 98/67 10/27/20 18:00 103 19 130/67 (88) 100 10/27/20 17:00 98 18 122/71 (88) 100 10/27/20 16:00 86 10/27/20 16:00 30 10/27/20 16:00 Bi-pap 10/27/20 16:00 97.2 100 18 126/80 (95) 100 10/27/20 15:18 97 22 100 30 10/27/20 15:00 104 21 125/56 (79) 100 10/27/20 14:00 102 17 116/66 (83) 99 10/27/20 13:00 94 17 108/49 (68) 10/27/20 12:00 30 10/27/20 12:00 114 10/27/20 12:00 Bi-pap 10/27/20 12:00 97.6 90 19 99/44 (62) 10/27/20 11:35 91 20 100 30 10/27/20 11:05 130/60 10/27/20 11:00 96 18 130/60 (83) 100 Intake and Output 10/27/20 10/28/20 19:00 07:00 Intake Total 2040.0 ml 2102.5 ml Output Total 300 ml 740 ml Balance 1740.0 ml 1362.5 ml Free Water 200 ml 50 ml IV Total 1450.0 ml 1622.5 ml Tube Feeding 390 ml 430 ml Output Urine Total 300 ml 740 ml # Bowel Movements 1 Current Medications Medications (Trade) Dose Ordered Sig/Yolanda Route PRN Reason Start Time Stop Time Status Last Admin Dose Admin Acetaminophen (Tylenol) 500 mg Q6HR PRN ORAL Mild Pain 1-3 10/17/20 17:45 11/16/20 17:44 Acetaminophen (Tylenol) 500 mg Q6HR PRN ORAL fever >100 10/17/20 18:00 11/16/20 17:59 Acetaminophen (Tylenol) 650 mg Q4H PRN ORAL Pain Scale (6-10) 10/17/20 19:15 11/16/20 19:14 Apixaban (Eliquis) 2.5 mg BID ORAL 10/24/20 18:00 01/22/21 17:59 10/27/20 18:04 Chlorhexidine Gluconate (Eve-Hex 2%) 1 applic DAILY@2000 TOPIC 10/22/20 20:00 01/20/21 19:59 10/27/20 20:34 Dextrose/Sodium Chloride 1,000 ml @ 100 mls/hr Q10H IV 10/25/20 12:00 11/24/20 11:59 10/28/20 09:07 Docusate Sodium (Colace) 10 mg EVERY 8 HOURS GT 10/28/20 14:00 11/24/20 17:59 Levothyroxine Sodium (Synthroid) 50 mcg DAILY@0630 ORAL 10/19/20 06:30 11/18/20 06:29 10/28/20 05:45 Magnesium Sulfate 3000 mg/Sodium Chloride 506 ml @ 168.667 mls/hr ONCE ONCE IVPB 10/28/20 10:00 10/28/20 12:59 Midodrine (Pro-Amatine) 10 mg Q8HR GT 10/26/20 14:00 01/16/21 13:59 10/28/20 05:45 Norepinephrine Bitartrate 250 ml @ 0 mls/hr Q24H PRN IV . 10/26/20 11:09 10/29/20 11:08 10/28/20 09:47 Ondansetron HCl (Zofran) 4 mg Q6H PRN IVP Nausea & Vomiting 10/17/20 21:15 11/16/20 21:14 Pantoprazole (Protonix) 40 mg EVERY 12 HOURS IVP 10/26/20 21:00 11/25/20 20:59 10/28/20 09:06 Piperacillin Sod/ Tazobactam Sod 3.375 gm/Sodium Chloride 110 ml @ 27.5 mls/hr Q12H IVPB 10/26/20 14:00 11/02/20 13:59 10/28/20 02:01 Potassium Chloride 100 ml @ 50 mls/hr ONCE ONCE IVPB 10/28/20 08:45 10/28/20 10:44 10/28/20 09:06 Laboratory Tests 10/27/20 11:35: Arterial Blood pH 7.185*L, Arterial Blood Partial Pressure CO2 55.8*H, Arterial Blood Partial Pressure O2 103.8H, Arterial Blood HCO3 20.6L, Arterial Blood Oxygen Saturation 96.4, Arterial Blood Base Excess -7.5L, Gallo Test Positive 10/28/20 04:20: White Blood Count 4.7L, Red Blood Count 2.82L, Hemoglobin 8.3L, Hematocrit 27.9L , Mean Corpuscular Volume 99, Mean Corpuscular Hemoglobin 29.4, Mean Corpuscular Hemoglobin Concent 29.7L, Red Cell Distribution Width 19.5H, Platelet Count 198, Mean Platelet Volume 7.7, Neutrophils (%) (Auto) , Lymphocytes (%) (Auto) , Monocytes (%) (Auto) , Eosinophils (%) (Auto) , Basophils (%) (Auto) , Differential Total Cells Counted 100, Neutrophils % (Manual) 86H, Lymphocytes % (Manual) 7L, Monocytes % (Manual) 7, Eosinophils % (Manual) 0, Basophils % (Manual) 0, Band Neutrophils 0, Platelet Estimate Adequate, Platelet Morphology Normal, Hypochromasia 2+, Anisocytosis 2+, Crenated Cell 1+, Schistocytes 1+, Sodium Level 138, Potassium Level 3.4L, Chloride Level 105, Carbon Dioxide Level 23, Anion Gap 10, Blood Urea Nitrogen 37H, Creatinine 2.2H, Estimat Glomerular Filtration Rate 21.3, Glucose Level 197H, Uric Acid 8.0H, Calcium Level 7.6L, Phosphorus Level 3.7, Magnesium Level 1.5L, Total Bilirubin 0.3, Aspartate Amino Transf (AST/SGOT) 7L, Alanine Aminotransferase (ALT/SGPT) 11L, Alkaline Phosphatase 76, C-Reactive Protein, Quantitative 2.0H, Pro-B-Type Natriuretic Peptide > 63547I, Total Protein 5.2L, Albumin 2.2L, Globulin 3.0, Albumin/Globulin Ratio 0.7L 10/28/20 09:34: Arterial Blood pH 7.184*L, Arterial Blood Partial Pressure CO2 59.8*H, Arterial Blood Partial Pressure O2 76.9, Arterial Blood HCO3 22.0, Arterial Blood Oxygen Saturation 94.4L, Arterial Blood Base Excess -6.3L, Gallo Test Positive Height (Feet): 5 Height (Inches): 0.00 Weight (Pounds): 145 General Appearance: mild distress EENT: other - On BiPAP Cardiovascular: tachycardia Respiratory/Chest: decreased breath sounds Abdomen: distended Dustin Gómez MD Oct 28, 2020 10:11
--- NOTE | 2020-10-28 10:15 | NUR ---
NURSE NOTES: Dr. Woods came to see patient- updated with patient's condition-made aware of latest ABG results with new orders given
--- NOTE | 2020-10-28 10:24 | Pulmonology Progress Note ---
Subjective ROS Limited/Unobtainable: Yes Interval Events: hypotensive, now in ICU; obtunded; on BiPAP Constitutional: Reports: other - transferred to ICU HEENT: Repors: no symptoms Respiratory: Reports: no symptoms Cardiovascular: Reports: no symptoms Gastrointestinal/Abdominal: Reports: other Psychiatric: Reports: other - refusing medications; s/p PEG Allergies: Coded Allergies: No Known Allergies (Unverified , 10/17/20) All Systems: reviewed and negative except above Objective Last 24 Hour Vital Signs Date Time Temp Pulse Resp B/P (MAP) Pulse Ox O2 Delivery O2 Flow Rate FiO2 10/28/20 09:47 119/73 10/28/20 09:30 98 18 119/63 (81) 10/28/20 09:15 103 21 104/60 (75) 10/28/20 09:00 105 22 97/53 (68) 10/28/20 08:45 98 16 123/51 (75) 10/28/20 08:30 108 20 117/81 (93) 10/28/20 08:05 24 10/28/20 08:05 24 10/28/20 08:00 30 10/28/20 08:00 Bi-pap 10/28/20 08:00 98.1 99 16 111/65 (80) 10/28/20 07:46 106 10/28/20 07:43 111 14 100 30 10/28/20 07:30 102 17 106/47 (66) 10/28/20 07:00 94 17 94/94 (94) 100 10/28/20 06:00 96 17 94/45 (61) 100 10/28/20 05:30 96 18 87/42 (57) 100 10/28/20 05:00 95 16 94/30 (51) 100 10/28/20 04:30 107 18 98/31 (53) 98 10/28/20 04:00 97.6 107 18 90/31 (50) 100 10/28/20 04:00 30 10/28/20 04:00 103 10/28/20 04:00 Bi-pap 10/28/20 03:30 102 20 100 30 10/28/20 03:30 103 19 87/39 (55) 100 10/28/20 03:00 107 19 106/25 (52) 100 3/3/21 02:30 103 19 100/50 (67) 100 10/28/20 02:07 98/48 10/28/20 02:00 94 20 98/48 (65) 100 10/28/20 01:30 104 22 100/52 (68) 100 10/28/20 01:30 104 22 110/56 (74) 100 10/28/20 01:15 100 21 112/53 (72) 100 10/28/20 01:00 93 17 114/53 (73) 100 10/28/20 01:00 93 17 114/53 (73) 100 10/28/20 00:45 94 18 109/50 (69) 100 10/28/20 00:30 97 17 115/53 (73) 100 10/28/20 00:30 97 17 115/53 (73) 100 10/28/20 00:15 100 19 132/57 (82) 100 10/28/20 00:00 Bi-pap 10/28/20 00:00 30 10/28/20 00:00 105 10/28/20 00:00 98.0 99 19 118/55 (76) 100 10/28/20 00:00 99 19 118/55 (76) 100 10/27/20 23:30 103 19 100 30 10/27/20 23:30 104 21 131/58 (82) 100 10/27/20 23:00 96 17 109/48 (68) 100 10/27/20 22:00 95 17 126/50 (75) 100 10/27/20 21:30 99 18 103/47 (65) 10/27/20 21:00 102 18 125/60 (81) 100 10/27/20 20:30 99 16 104/52 (69) 100 10/27/20 20:00 72 10/27/20 20:00 97.4 96 16 108/55 (72) 100 10/27/20 20:00 Bi-pap 10/27/20 20:00 30 10/27/20 19:30 99 18 129/55 (79) 100 10/27/20 19:30 91 16 100 30 10/27/20 19:00 105 21 131/74 (93) 10/27/20 18:05 98/67 10/27/20 18:00 103 19 130/67 (88) 100 10/27/20 17:00 98 18 122/71 (88) 100 10/27/20 16:00 86 10/27/20 16:00 30 10/27/20 16:00 Bi-pap 10/27/20 16:00 97.2 100 18 126/80 (95) 100 10/27/20 15:18 97 22 100 30 10/27/20 15:00 104 21 125/56 (79) 100 10/27/20 14:00 102 17 116/66 (83) 99 10/27/20 13:00 94 17 108/49 (68) 10/27/20 12:00 30 10/27/20 12:00 114 10/27/20 12:00 Bi-pap 10/27/20 12:00 97.6 90 19 99/44 (62) 10/27/20 11:35 91 20 100 30 10/27/20 11:05 130/60 10/27/20 11:00 96 18 130/60 (83) 100 Intake and Output 10/27/20 10/28/20 19:00 07:00 Intake Total 2040.0 ml 2102.5 ml Output Total 300 ml 740 ml Balance 1740.0 ml 1362.5 ml Free Water 200 ml 50 ml IV Total 1450.0 ml 1622.5 ml Tube Feeding 390 ml 430 ml Output Urine Total 300 ml 740 ml # Bowel Movements 1 General Appearance: no acute distress HEENT: atraumatic Respiratory: lungs clear Cardiovascular: normal rate, regular rhythm Abdomen: soft, non tender, other - s/p PEG Microbiology Date/Time Source Procedure Growth Status 10/25/20 15:40 Nasopharynx SARS-CoV-2 Antigen (Rapid)(DIAZ) - Final Complete Laboratory Tests 10/27/20 11:35: Arterial Blood pH 7.185*L, Arterial Blood Partial Pressure CO2 55.8*H, Arterial Blood Partial Pressure O2 103.8H, Arterial Blood HCO3 20.6L, Arterial Blood Oxygen Saturation 96.4, Arterial Blood Base Excess -7.5L, Gallo Test Positive 10/28/20 04:20: White Blood Count 4.7L, Red Blood Count 2.82L, Hemoglobin 8.3L, Hematocrit 27.9L , Mean Corpuscular Volume 99, Mean Corpuscular Hemoglobin 29.4, Mean Corpuscular Hemoglobin Concent 29.7L, Red Cell Distribution Width 19.5H, Platelet Count 198, Mean Platelet Volume 7.7, Neutrophils (%) (Auto) , Lymphocytes (%) (Auto) , Monocytes (%) (Auto) , Eosinophils (%) (Auto) , Basophils (%) (Auto) , Differential Total Cells Counted 100, Neutrophils % (Manual) 86H, Lymphocytes % (Manual) 7L, Monocytes % (Manual) 7, Eosinophils % (Manual) 0, Basophils % (Manual) 0, Band Neutrophils 0, Platelet Estimate Adequate, Platelet Morphology Normal, Hypochromasia 2+, Anisocytosis 2+, Crenated Cell 1+, Schistocytes 1+, Sodium Level 138, Potassium Level 3.4L, Chloride Level 105, Carbon Dioxide Level 23, Anion Gap 10, Blood Urea Nitrogen 37H, Creatinine 2.2H, Estimat Glomerular Filtration Rate 21.3, Glucose Level 197H, Uric Acid 8.0H, Calcium Level 7.6L, Phosphorus Level 3.7, Magnesium Level 1.5L, Total Bilirubin 0.3, Aspartate Amino Transf (AST/SGOT) 7L, Alanine Aminotransferase (ALT/SGPT) 11L, Alkaline Phosphatase 76, C-Reactive Protein, Quantitative 2.0H, Pro-B-Type Natriuretic Peptide > 52183S, Total Protein 5.2L, Albumin 2.2L, Globulin 3.0, Albumin/Globulin Ratio 0.7L 10/28/20 09:34: Arterial Blood pH 7.184*L, Arterial Blood Partial Pressure CO2 59.8*H, Arterial Blood Partial Pressure O2 76.9, Arterial Blood HCO3 22.0, Arterial Blood Oxygen Saturation 94.4L, Arterial Blood Base Excess -6.3L, Gallo Test Positive Current Medications Medications (Trade) Dose Ordered Sig/Yolanda Route PRN Reason Start Time Stop Time Status Last Admin Dose Admin Acetaminophen (Tylenol) 500 mg Q6HR PRN ORAL Mild Pain 1-3 10/17/20 17:45 11/16/20 17:44 Acetaminophen (Tylenol) 500 mg Q6HR PRN ORAL fever >100 10/17/20 18:00 11/16/20 17:59 Acetaminophen (Tylenol) 650 mg Q4H PRN ORAL Pain Scale (6-10) 10/17/20 19:15 11/16/20 19:14 Apixaban (Eliquis) 2.5 mg BID ORAL 10/24/20 18:00 01/22/21 17:59 10/27/20 18:04 Chlorhexidine Gluconate (Eve-Hex 2%) 1 applic DAILY@2000 TOPIC 10/22/20 20:00 01/20/21 19:59 10/27/20 20:34 Dextrose/Sodium Chloride 1,000 ml @ 100 mls/hr Q10H IV 10/25/20 12:00 11/24/20 11:59 10/28/20 09:07 Docusate Sodium (Colace) 10 mg EVERY 8 HOURS GT 10/28/20 14:00 11/24/20 17:59 Levothyroxine Sodium (Synthroid) 50 mcg DAILY@0630 ORAL 10/19/20 06:30 11/18/20 06:29 10/28/20 05:45 Magnesium Sulfate 3000 mg/Sodium Chloride 506 ml @ 168.667 mls/hr ONCE ONCE IVPB 10/28/20 10:00 10/28/20 12:59 Midodrine (Pro-Amatine) 10 mg Q8HR GT 10/26/20 14:00 01/16/21 13:59 10/28/20 05:45 Norepinephrine Bitartrate 250 ml @ 0 mls/hr Q24H PRN IV . 10/26/20 11:09 10/29/20 11:08 10/28/20 09:47 Ondansetron HCl (Zofran) 4 mg Q6H PRN IVP Nausea & Vomiting 10/17/20 21:15 11/16/20 21:14 Pantoprazole (Protonix) 40 mg EVERY 12 HOURS IVP 10/26/20 21:00 11/25/20 20:59 10/28/20 09:06 Piperacillin Sod/ Tazobactam Sod 3.375 gm/Sodium Chloride 110 ml @ 27.5 mls/hr Q12H IVPB 10/26/20 14:00 11/02/20 13:59 10/28/20 02:01 Potassium Chloride 100 ml @ 50 mls/hr ONCE ONCE IVPB 10/28/20 08:45 10/28/20 10:44 10/28/20 09:06 Assessment/Plan Assessment/Plan 1. CHF. 2. CAD/previous non-STEMI. 3. [facility] resident. 4. Bradycardia. 5. Atrial fibrillation. -Started on Eliquis 6. Renal insufficiency. -Nephro following 7. Troponin leak. - Cardio following 8. COVID-19 pneumonia, without fever or leukocytosis - Now on BiPAP - noted hypercapnia and resp acidosis on ABG today; will increase bipap to 20/5; repeat abg in one hour; may need intubation 9. Hypoxemia 10. 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 UTI, cheryl 12. Dysphagia -s/p PEG (10/23) 13. Hypotension; improved - s/p NS bolus - now off Lopressor Carlos Woods MD Oct 28, 2020 10:24
--- NOTE | 2020-10-28 10:53 | Infectious Diseases Prog Note ---
Assessment/Plan Assessment/Plan IMPRESSION: Pneumonia Hypercapnic respiratory failure Recent history of COVID disease, Acute renal failure, Severe aortic stenosis Atrial fibrillation, hypothyroidism, Anemia. Chronic DVT of R leg Hypotension Gastrostomy status RECOMMENDATION: Continue Zosyn Subjective ROS Limited/Unobtainable: Yes Constitutional: Reports: fever Cardiovascular: Reports: other - on Levophed Allergies: Coded Allergies: No Known Allergies (Unverified , 10/17/20) Objective Last 24 Hour Vital Signs Date Time Temp Pulse Resp B/P (MAP) Pulse Ox O2 Delivery O2 Flow Rate FiO2 10/28/20 09:47 119/73 10/28/20 09:30 98 18 119/63 (81) 10/28/20 09:15 103 21 104/60 (75) 10/28/20 09:00 105 22 97/53 (68) 10/28/20 08:45 98 16 123/51 (75) 10/28/20 08:30 108 20 117/81 (93) 10/28/20 08:05 24 10/28/20 08:05 24 10/28/20 08:00 30 10/28/20 08:00 Bi-pap 10/28/20 08:00 98.1 99 16 111/65 (80) 10/28/20 07:46 106 10/28/20 07:43 111 14 100 30 10/28/20 07:30 102 17 106/47 (66) 10/28/20 07:00 94 17 94/94 (94) 100 10/28/20 06:00 96 17 94/45 (61) 100 10/28/20 05:30 96 18 87/42 (57) 100 10/28/20 05:00 95 16 94/30 (51) 100 10/28/20 04:30 107 18 98/31 (53) 98 10/28/20 04:00 97.6 107 18 90/31 (50) 100 10/28/20 04:00 30 10/28/20 04:00 103 10/28/20 04:00 Bi-pap 10/28/20 03:30 102 20 100 30 10/28/20 03:30 103 19 87/39 (55) 100 10/28/20 03:00 107 19 106/25 (52) 100 10/28/20 02:30 103 19 100/50 (67) 100 10/28/20 02:07 98/48 10/28/20 02:00 94 20 98/48 (65) 100 10/28/20 01:30 104 22 100/52 (68) 100 10/28/20 01:30 104 22 110/56 (74) 100 10/28/20 01:15 100 21 112/53 (72) 100 10/28/20 01:00 93 17 114/53 (73) 100 10/28/20 01:00 93 17 114/53 (73) 100 10/28/20 00:45 94 18 109/50 (69) 100 10/28/20 00:30 97 17 115/53 (73) 100 10/28/20 00:30 97 17 115/53 (73) 100 10/28/20 00:15 100 19 132/57 (82) 100 10/28/20 00:00 Bi-pap 10/28/20 00:00 30 10/28/20 00:00 105 10/28/20 00:00 98.0 99 19 118/55 (76) 100 10/28/20 00:00 99 19 118/55 (76) 100 10/27/20 23:30 103 19 100 30 10/27/20 23:30 104 21 131/58 (82) 100 10/27/20 23:00 96 17 109/48 (68) 100 10/27/20 22:00 95 17 126/50 (75) 100 10/27/20 21:30 99 18 103/47 (65) 10/27/20 21:00 102 18 125/60 (81) 100 10/27/20 20:30 99 16 104/52 (69) 100 10/27/20 20:00 72 10/27/20 20:00 97.4 96 16 108/55 (72) 100 10/27/20 20:00 Bi-pap 10/27/20 20:00 30 10/27/20 19:30 99 18 129/55 (79) 100 10/27/20 19:30 91 16 100 30 10/27/20 19:00 105 21 131/74 (93) 10/27/20 18:05 98/67 10/27/20 18:00 103 19 130/67 (88) 100 10/27/20 17:00 98 18 122/71 (88) 100 10/27/20 16:00 86 10/27/20 16:00 30 10/27/20 16:00 Bi-pap 10/27/20 16:00 97.2 100 18 126/80 (95) 100 10/27/20 15:18 97 22 100 30 10/27/20 15:00 104 21 125/56 (79) 100 10/27/20 14:00 102 17 116/66 (83) 99 10/27/20 13:00 94 17 108/49 (68) 10/27/20 12:00 30 10/27/20 12:00 114 10/27/20 12:00 Bi-pap 10/27/20 12:00 97.6 90 19 99/44 (62) 10/27/20 11:35 91 20 100 30 10/27/20 11:05 130/60 10/27/20 11:00 96 18 130/60 (83) 100 Height (Feet): 5 Height (Inches): 0.00 Weight (Pounds): 145 HEENT: mucous membranes moist Respiratory/Chest: decreased breath sounds, other - on BIPAP Cardiovascular: tachycardia Abdomen: soft, non tender, other - GT feeding Extremities: other - general edema Neurologic/Psychiatric: other - lethargic Microbiology Date/Time Source Procedure Growth Status 10/25/20 15:40 Nasopharynx SARS-CoV-2 Antigen (Rapid)(DIAZ) - Final Complete Laboratory Tests Test 10/27/20 11:35 10/28/20 04:20 10/28/20 09:34 Arterial Blood pH 7.185 (7.350-7.450) 7.184 (7.350-7.450) Arterial Blood Partial Pressure CO2 55.8 mmHg (35.0-45.0) *H 59.8 mmHg (35.0-45.0) *H Arterial Blood Partial Pressure O2 103.8 mmHg (75.0-100.0) H 76.9 mmHg (75.0-100.0) Arterial Blood HCO3 20.6 mmol/L (22.0-26.0) L 22.0 mmol/L (22.0-26.0) Arterial Blood Oxygen Saturation 96.4 % (95-100) 94.4 % (95-100) L Arterial Blood Base Excess -7.5 (-2-2) L -6.3 (-2-2) L Gallo Test Positive Positive White Blood Count 4.7 K/UL (4.8-10.8) L Red Blood Count 2.82 M/UL (4.20-5.40) L Hemoglobin 8.3 G/DL (12.0-16.0) L Hematocrit 27.9 % (37.0-47.0) L Mean Corpuscular Volume 99 FL (80-99) Mean Corpuscular Hemoglobin 29.4 PG (27.0-31.0) Mean Corpuscular Hemoglobin Concent 29.7 G/DL (32.0-36.0) L Red Cell Distribution Width 19.5 % (11.6-14.8) H Platelet Count 198 K/UL (150-450) Mean Platelet Volume 7.7 FL (6.5-10.1) Neutrophils (%) (Auto) % (45.0-75.0) Lymphocytes (%) (Auto) % (20.0-45.0) Monocytes (%) (Auto) % (1.0-10.0) Eosinophils (%) (Auto) % (0.0-3.0) Basophils (%) (Auto) % (0.0-2.0) Differential Total Cells Counted 100 Neutrophils % (Manual) 86 % (45-75) H Lymphocytes % (Manual) 7 % (20-45) L Monocytes % (Manual) 7 % (1-10) Eosinophils % (Manual) 0 % (0-3) Basophils % (Manual) 0 % (0-2) Band Neutrophils 0 % (0-8) Platelet Estimate Adequate Platelet Morphology Normal Hypochromasia 2+ Anisocytosis 2+ Crenated Cell 1+ Schistocytes 1+ Sodium Level 138 MMOL/L (136-145) Potassium Level 3.4 MMOL/L (3.5-5.1) L Chloride Level 105 MMOL/L (98-107) Carbon Dioxide Level 23 MMOL/L (21-32) Anion Gap 10 mmol/L (5-15) Blood Urea Nitrogen 37 mg/dL (7-18) H Creatinine 2.2 MG/DL (0.55-1.30) H Estimat Glomerular Filtration Rate 21.3 mL/min (>60) Glucose Level 197 MG/DL (74-106) H Uric Acid 8.0 MG/DL (2.6-7.2) H Calcium Level 7.6 MG/DL (8.5-10.1) L Phosphorus Level 3.7 MG/DL (2.5-4.9) Magnesium Level 1.5 MG/DL (1.8-2.4) L Total Bilirubin 0.3 MG/DL (0.2-1.0) Aspartate Amino Transf (AST/SGOT) 7 U/L (15-37) L Alanine Aminotransferase (ALT/SGPT) 11 U/L (12-78) L Alkaline Phosphatase 76 U/L (46-116) C-Reactive Protein, Quantitative 2.0 mg/dL (0.00-0.90) H Pro-B-Type Natriuretic Peptide > 68412 pg/mL (0-125) H Total Protein 5.2 G/DL (6.4-8.2) L Albumin 2.2 G/DL (3.4-5.0) L Globulin 3.0 g/dL Albumin/Globulin Ratio 0.7 (1.0-2.7) L Current Medications Medications (Trade) Dose Ordered Sig/Yolanda Route PRN Reason Start Time Stop Time Status Last Admin Dose Admin Acetaminophen (Tylenol) 500 mg Q6HR PRN ORAL Mild Pain 1-3 10/17/20 17:45 11/16/20 17:44 Acetaminophen (Tylenol) 500 mg Q6HR PRN ORAL fever >100 10/17/20 18:00 11/16/20 17:59 Acetaminophen (Tylenol) 650 mg Q4H PRN ORAL Pain Scale (6-10) 10/17/20 19:15 11/16/20 19:14 Apixaban (Eliquis) 2.5 mg BID ORAL 10/24/20 18:00 01/22/21 17:59 10/27/20 18:04 Chlorhexidine Gluconate (Eve-Hex 2%) 1 applic DAILY@2000 TOPIC 10/22/20 20:00 01/20/21 19:59 10/27/20 20:34 Dextrose/Sodium Chloride 1,000 ml @ 100 mls/hr Q10H IV 10/25/20 12:00 11/24/20 11:59 10/28/20 09:07 Docusate Sodium (Colace) 10 mg EVERY 8 HOURS GT 10/28/20 14:00 11/24/20 17:59 Levothyroxine Sodium (Synthroid) 50 mcg DAILY@0630 ORAL 10/19/20 06:30 11/18/20 06:29 10/28/20 05:45 Magnesium Sulfate 3000 mg/Sodium Chloride 506 ml @ 168.667 mls/hr ONCE ONCE IVPB 10/28/20 10:00 10/28/20 12:59 Midodrine (Pro-Amatine) 10 mg Q8HR GT 10/26/20 14:00 01/16/21 13:59 10/28/20 05:45 Norepinephrine Bitartrate 250 ml @ 0 mls/hr Q24H PRN IV . 10/26/20 11:09 10/29/20 11:08 10/28/20 09:47 Ondansetron HCl (Zofran) 4 mg Q6H PRN IVP Nausea & Vomiting 10/17/20 21:15 11/16/20 21:14 Pantoprazole (Protonix) 40 mg EVERY 12 HOURS IVP 10/26/20 21:00 11/25/20 20:59 10/28/20 09:06 Piperacillin Sod/ Tazobactam Sod 3.375 gm/Sodium Chloride 110 ml @ 27.5 mls/hr Q12H IVPB 10/26/20 14:00 11/02/20 13:59 10/28/20 02:01 Luis Alvarado MD Oct 28, 2020 10:53
--- NOTE | 2020-10-28 12:00 | NUR ---
NURSE NOTES: Received pastient on BiPap 20/5-12 -24% - no s/s resp. distress noted- SaO2 @ 100 %. TLC patent @ right femoral with levophed infusing at 10 mcg/min. night monitor shows controlled /uncontrolled rate 91-110/min. GT patent with Vital AF 1.2 infusing at 50 cc/hr. F/C patent with moderate amount of UO
[2020-10-28] MEDS: Docusate 100mg/10ml Liq GT SCH ×2 (13:37→22:00)
--- NOTE | 2020-10-28 13:42 | Surgery Progress Note ---
Surgery Progress Note Subjective Procedure Performed Right femoral central venous catheter insertion Additional Comments improved non /v on bipap labs noted weaning levophed Objective Last 24 Hour Vital Signs Date Time Temp Pulse Resp B/P (MAP) Pulse Ox O2 Delivery O2 Flow Rate FiO2 10/28/20 12:59 99 20 109/57 (74) 100 10/28/20 12:00 97.6 91 20 116/78 (91) 100 10/28/20 12:00 91 10/28/20 12:00 24 10/28/20 12:00 Bi-pap 2.0 Bi-pap Bi-pap 10/28/20 11:00 109 21 122/86 (98) 100 10/28/20 10:53 114 17 100 24 10/28/20 10:00 107 20 106/57 (73) 100 10/28/20 09:47 119/73 10/28/20 09:45 97 17 108/54 (72) 100 10/28/20 09:30 98 18 119/63 (81) 10/28/20 09:15 103 21 104/60 (75) 10/28/20 09:00 105 22 97/53 (68) 10/28/20 08:45 98 16 123/51 (75) 10/28/20 08:30 108 20 117/81 (93) 10/28/20 08:05 24 10/28/20 08:05 24 10/28/20 08:00 30 10/28/20 08:00 Bi-pap 10/28/20 08:00 98.1 99 16 111/65 (80) 10/28/20 07:46 106 10/28/20 07:43 111 14 100 30 10/28/20 07:30 102 17 106/47 (66) 10/28/20 07:00 94 17 94/94 (94) 100 10/28/20 06:00 96 17 94/45 (61) 100 10/28/20 05:30 96 18 87/42 (57) 100 10/28/20 05:00 95 16 94/30 (51) 100 10/28/20 04:30 107 18 98/31 (53) 98 10/28/20 04:00 97.6 107 18 90/31 (50) 100 10/28/20 04:00 30 10/28/20 04:00 103 10/28/20 04:00 Bi-pap 10/28/20 03:30 102 20 100 30 10/28/20 03:30 103 19 87/39 (55) 100 10/28/20 03:00 107 19 106/25 (52) 100 10/28/20 02:30 103 19 100/50 (67) 100 10/28/20 02:07 98/48 10/28/20 02:00 94 20 98/48 (65) 100 10/28/20 01:30 104 22 100/52 (68) 100 10/28/20 01:30 104 22 110/56 (74) 100 10/28/20 01:15 100 21 112/53 (72) 100 10/28/20 01:00 93 17 114/53 (73) 100 10/28/20 01:00 93 17 114/53 (73) 100 10/28/20 00:45 94 18 109/50 (69) 100 10/28/20 00:30 97 17 115/53 (73) 100 10/28/20 00:30 97 17 115/53 (73) 100 10/28/20 00:15 100 19 132/57 (82) 100 10/28/20 00:00 Bi-pap 10/28/20 00:00 30 10/28/20 00:00 105 10/28/20 00:00 98.0 99 19 118/55 (76) 100 10/28/20 00:00 99 19 118/55 (76) 100 10/27/20 23:30 103 19 100 30 10/27/20 23:30 104 21 131/58 (82) 100 10/27/20 23:00 96 17 109/48 (68) 100 10/27/20 22:00 95 17 126/50 (75) 100 10/27/20 21:30 99 18 103/47 (65) 10/27/20 21:00 102 18 125/60 (81) 100 10/27/20 20:30 99 16 104/52 (69) 100 10/27/20 20:00 72 10/27/20 20:00 97.4 96 16 108/55 (72) 100 10/27/20 20:00 Bi-pap 10/27/20 20:00 30 10/27/20 19:30 99 18 129/55 (79) 100 10/27/20 19:30 91 16 100 30 10/27/20 19:00 105 21 131/74 (93) 10/27/20 18:05 98/67 10/27/20 18:00 103 19 130/67 (88) 100 10/27/20 17:00 98 18 122/71 (88) 100 10/27/20 16:00 86 10/27/20 16:00 30 10/27/20 16:00 Bi-pap 10/27/20 16:00 97.2 100 18 126/80 (95) 100 10/27/20 15:18 97 22 100 30 10/27/20 15:00 104 21 125/56 (79) 100 10/27/20 14:00 102 17 116/66 (83) 99 I&O Intake and Output 10/27/20 10/28/20 19:00 07:00 Intake Total 2040.0 ml 2102.5 ml Output Total 300 ml 740 ml Balance 1740.0 ml 1362.5 ml Free Water 200 ml 50 ml IV Total 1450.0 ml 1622.5 ml Tube Feeding 390 ml 430 ml Output Urine Total 300 ml 740 ml # Bowel Movements 1 Dressing: saturated Cardiovascular: RSR Respiratory: decreased breath sounds Abdomen: soft, non-tender, present bowel sounds Extremities: no tenderness, no cyanosis Laboratory Tests Test 10/28/20 04:20 10/28/20 09:34 10/28/20 12:14 White Blood Count 4.7 K/UL (4.8-10.8) L Red Blood Count 2.82 M/UL (4.20-5.40) L Hemoglobin 8.3 G/DL (12.0-16.0) L Hematocrit 27.9 % (37.0-47.0) L Mean Corpuscular Volume 99 FL (80-99) Mean Corpuscular Hemoglobin 29.4 PG (27.0-31.0) Mean Corpuscular Hemoglobin Concent 29.7 G/DL (32.0-36.0) L Red Cell Distribution Width 19.5 % (11.6-14.8) H Platelet Count 198 K/UL (150-450) Mean Platelet Volume 7.7 FL (6.5-10.1) Neutrophils (%) (Auto) % (45.0-75.0) Lymphocytes (%) (Auto) % (20.0-45.0) Monocytes (%) (Auto) % (1.0-10.0) Eosinophils (%) (Auto) % (0.0-3.0) Basophils (%) (Auto) % (0.0-2.0) Differential Total Cells Counted 100 Neutrophils % (Manual) 86 % (45-75) H Lymphocytes % (Manual) 7 % (20-45) L Monocytes % (Manual) 7 % (1-10) Eosinophils % (Manual) 0 % (0-3) Basophils % (Manual) 0 % (0-2) Band Neutrophils 0 % (0-8) Platelet Estimate Adequate Platelet Morphology Normal Hypochromasia 2+ Anisocytosis 2+ Crenated Cell 1+ Schistocytes 1+ Sodium Level 138 MMOL/L (136-145) Potassium Level 3.4 MMOL/L (3.5-5.1) L Chloride Level 105 MMOL/L (98-107) Carbon Dioxide Level 23 MMOL/L (21-32) Anion Gap 10 mmol/L (5-15) Blood Urea Nitrogen 37 mg/dL (7-18) H Creatinine 2.2 MG/DL (0.55-1.30) H Estimat Glomerular Filtration Rate 21.3 mL/min (>60) Glucose Level 197 MG/DL (74-106) H Uric Acid 8.0 MG/DL (2.6-7.2) H Calcium Level 7.6 MG/DL (8.5-10.1) L Phosphorus Level 3.7 MG/DL (2.5-4.9) Magnesium Level 1.5 MG/DL (1.8-2.4) L Total Bilirubin 0.3 MG/DL (0.2-1.0) Aspartate Amino Transf (AST/SGOT) 7 U/L (15-37) L Alanine Aminotransferase (ALT/SGPT) 11 U/L (12-78) L Alkaline Phosphatase 76 U/L (46-116) C-Reactive Protein, Quantitative 2.0 mg/dL (0.00-0.90) H Pro-B-Type Natriuretic Peptide > 32417 pg/mL (0-125) H Total Protein 5.2 G/DL (6.4-8.2) L Albumin 2.2 G/DL (3.4-5.0) L Globulin 3.0 g/dL Albumin/Globulin Ratio 0.7 (1.0-2.7) L Arterial Blood pH 7.184 (7.350-7.450) 7.209 (7.350-7.450) Arterial Blood Partial Pressure CO2 59.8 mmHg (35.0-45.0) *H 48.2 mmHg (35.0-45.0) H Arterial Blood Partial Pressure O2 76.9 mmHg (75.0-100.0) 95.7 mmHg (75.0-100.0) Arterial Blood HCO3 22.0 mmol/L (22.0-26.0) 18.8 mmol/L (22.0-26.0) L Arterial Blood Oxygen Saturation 94.4 % (95-100) L 96.6 % (95-100) Arterial Blood Base Excess -6.3 (-2-2) L -8.7 (-2-2) L Gallo Test Positive Positive Plan Problems: (1) Anemia (2) Acute kidney injury (3) Atrial fibrillation (4) Hyperkalemia (5) Elevated troponin (6) Decubitus skin ulcer Assessment & Plan: Pt presented on admission with Multiple Medical Comorbidities including Covid-19 and Pressure Injuries. Primary Nurse reported Pt has been declining food and medications. Sacral DTPI that is evolving noted to Sacrum(L)6cm x (W)12.5cm.. Scattered Purpuric areas that are indurated noted to R and L cheek. Small wound that is 100% slough (L)0.6cm x (W)0.7cm noted at sacrococcygeal area within base of DTPI. MASD noted to Perineum and skin folds of Medial/posterior aspects of Both upper thighs. Affected areas are erythematous and macerated with scattered satellite lesions. DTPI L Heel (L)3cm x (W)4cm, Base of heel is maroon and fluctuant with small purpuric area (L)0.4cm x (W)0.9cm within base of DTPI. l Foot including toes are mottled and cool to touch. L Heel is boggy. L Heel including toes are Mottled and cool to touch. Tx.Plan: Apply Moisture Barrier Paste to Sacrum. Cover with Optifoam drsg.Change every 3 days and prn. Apply Moisture Barrier Paste to abdominal folds, Perineum and skin folds of both upper thighs. Apply Cavilon Skin Barrier to both heels. Cover each Heel with Optifoam drsg. Change every 7 days and prn. Reposition at least every 2hours or as tolerated. Off-load heels with pillow. (7) Malnutrition Assessment & Plan: She was able to self feed on right hand and took a bite of popsicle and tolerated without s.s of aspiration. After 1st bite, then she refused 2nd bite. After this was done, I offered her a cup of cranberry juice, she took few sips and tolerated without s.s of aspiration. I continued to offer but she refused further PO. A: 1. Functional swallow 2. Failure to thrive 3. abnormal electrolytes in setting of heart failure, NSTEMI, elevated BNP, etc.. P/Rec. 1. Pureed and thin liquid 2.3. Goal of care discussion DAILY ESTIMATED NEEDS: Needs based on Cardiac, pulmonary/ 51kg abw 25-30 kcals/kg 6990-1413 total kcals 1-1.5 g protein/kg 51-76 g total protein 20-25 mL/kg 3158-6915 total fluid mLs NUTRITION DIAGNOSIS: Swallowing difficulty R/T dysphagia, decreased cognitive fxn as evidenced by [employer] recommends pureed moist texture diet at this time. CURRENT DIET:NPO PO DIET RECOMMENDATIONS: Liberalized REGULAR w/ poor PO (texture per [employer]) ADDITIONAL RECOMMENDATIONS: * Calibrated bedscale wt * Monitor PO intake: refusing meds and foods at this time -> rec nonoral feeds w/ continued refusal of PO if part of POC * LOW NA diet w/ PO intake consistently >50% * 4 oz Ensure TID w/ meals (4oz at this time due to poor acceptance, may increase to 8oz w/ good acceptance) (8) Pneumonia due to COVID-19 virus Assessment & Plan: here appears to be increased left pleural fluid and generalized hazy parenchymal opacity, left greater than right. Heart remains enlarged Impression: Increased left pleural effusion Suspect increasing bilateral left greater than right pulmonary edema versus infiltrates (9) Hypothyroidism GiovanirosacrisJim lopes Oct 28, 2020 13:42
--- NOTE | 2020-10-28 13:59 | Diagnostic Imaging Report ---
Indication: Abnormal and renal function tests, anemia Technique: Tran-scale and duplex images of the upper abdomen were obtained Comparison: none Findings: Gallbladder is absent. Common bile duct measures 6 mm in diameter. No intrahepatic biliary ductal dilatation. Liver demonstrates slightly coarsened echogenicity, no focal abnormality. Portal vein and hepatic veins are patent. Pancreas is obscured by bowel gas. Spleen is unremarkable. Left kidney measures 10.6 cm in length. Right kidney measures 11.7 cm length. Both kidneys demonstrate normal echogenicity. There is no hydronephrosis. Both kidneys demonstrate cysts . Abdominal aorta is partially obscured by bowel gas, visualized portions are non-aneurysmal . There is a left pleural effusion incidentally noted Impression: Prior cholecystectomy. Negative for dilated bile ducts Equivocally mildly coarsened hepatic echogenicity, nonspecific but if real could indicate hepatocellular disease Left pleural effusion Nonvisualized pancreas and portions of the abdominal aorta Bilateral renal cysts
--- NOTE | 2020-10-28 14:00 | NUR ---
NURSE NOTES: 1400 dose of Colace 100 mg not given due to semi liquid stool
--- NOTE | 2020-10-28 15:05 | NUR ---
NURSE NOTES: Results of repeat ABG reported to Dr. Woods- message left on his voice mail. Tl BANKS also made aware of the results
--- NOTE | 2020-10-28 15:14 | NUR ---
NURSE NOTES: Dr. Woods callled back - updated with patient's condition, aware of latest ABG results
--- NOTE | 2020-10-28 17:45 | NUR ---
BP 127/51- Levophed decreased to 8mcg/min
--- NOTE | 2020-10-28 17:45 | NUR ---
NURSE NOTES: BP 127/67- Levophed decreased to 6mcg/min
--- NOTE | 2020-10-28 19:24 | NUR ---
NURSE NOTES: received report from eileen eugene pt obtunted no movement all extremities and edematoes on b-pap 20/5 20 [id number] sat 98-100% tolerating tube feeding no residual urinary output minimal hr 96-110 reposition and suction
--- NOTE | 2020-10-28 19:38 | General Progress Note ---
Subjective ROS Limited/Unobtainable: Yes Allergies: Coded Allergies: No Known Allergies (Unverified , 10/17/20) Objective Last 24 Hour Vital Signs Date Time Temp Pulse Resp B/P (MAP) Pulse Ox O2 Delivery O2 Flow Rate FiO2 10/28/20 19:29 95 17 100 24 10/28/20 19:00 112 22 108/52 (70) 100 10/28/20 18:00 104 22 127/67 (87) 100 10/28/20 17:00 109 20 124/67 (86) 100 10/28/20 16:33 106/59 10/28/20 16:00 103 10/28/20 16:00 97.3 98 19 89/47 (61) 98 10/28/20 16:00 24 10/28/20 16:00 Bi-pap 2.0 Bi-pap Bi-pap 10/28/20 15:26 100 16 99 24 10/28/20 15:00 96 18 95/45 (62) 98 10/28/20 14:00 108 20 98/43 (61) 98 10/28/20 12:59 99 20 109/57 (74) 100 10/28/20 12:00 97.6 91 20 116/78 (91) 100 10/28/20 12:00 91 10/28/20 12:00 24 10/28/20 12:00 Bi-pap 2.0 Bi-pap Bi-pap 10/28/20 11:00 109 21 122/86 (98) 100 10/28/20 10:53 114 17 100 24 10/28/20 10:00 107 20 106/57 (73) 100 10/28/20 09:47 119/73 10/28/20 09:45 97 17 108/54 (72) 100 10/28/20 09:30 98 18 119/63 (81) 10/28/20 09:15 103 21 104/60 (75) 10/28/20 09:00 105 22 97/53 (68) 10/28/20 08:45 98 16 123/51 (75) 10/28/20 08:30 108 20 117/81 (93) 10/28/20 08:05 24 10/28/20 08:05 24 10/28/20 08:00 30 10/28/20 08:00 Bi-pap 10/28/20 08:00 98.1 99 16 111/65 (80) 10/28/20 07:46 106 10/28/20 07:43 111 14 100 30 10/28/20 07:30 102 17 106/47 (66) 10/28/20 07:00 94 17 94/94 (94) 100 10/28/20 06:00 96 17 94/45 (61) 100 10/28/20 05:30 96 18 87/42 (57) 100 10/28/20 05:00 95 16 94/30 (51) 100 10/28/20 04:30 107 18 98/31 (53) 98 10/28/20 04:00 97.6 107 18 90/31 (50) 100 10/28/20 04:00 30 10/28/20 04:00 103 10/28/20 04:00 Bi-pap 10/28/20 03:30 102 20 100 30 10/28/20 03:30 103 19 87/39 (55) 100 10/28/20 03:00 107 19 106/25 (52) 100 10/28/20 02:30 103 19 100/50 (67) 100 10/28/20 02:07 98/48 10/28/20 02:00 94 20 98/48 (65) 100 10/28/20 01:30 104 22 100/52 (68) 100 10/28/20 01:30 104 22 110/56 (74) 100 10/28/20 01:15 100 21 112/53 (72) 100 10/28/20 01:00 93 17 114/53 (73) 100 10/28/20 01:00 93 17 114/53 (73) 100 10/28/20 00:45 94 18 109/50 (69) 100 10/28/20 00:30 97 17 115/53 (73) 100 10/28/20 00:30 97 17 115/53 (73) 100 10/28/20 00:15 100 19 132/57 (82) 100 10/28/20 00:00 Bi-pap 10/28/20 00:00 30 10/28/20 00:00 105 10/28/20 00:00 98.0 99 19 118/55 (76) 100 10/28/20 00:00 99 19 118/55 (76) 100 10/27/20 23:30 103 19 100 30 10/27/20 23:30 104 21 131/58 (82) 100 10/27/20 23:00 96 17 109/48 (68) 100 10/27/20 22:00 95 17 126/50 (75) 100 10/27/20 21:30 99 18 103/47 (65) 10/27/20 21:00 102 18 125/60 (81) 100 10/27/20 20:30 99 16 104/52 (69) 100 10/27/20 20:00 72 10/27/20 20:00 97.4 96 16 108/55 (72) 100 10/27/20 20:00 Bi-pap 10/27/20 20:00 30 Intake and Output 10/27/20 10/28/20 19:00 07:00 Intake Total 2040.0 ml 2102.5 ml Output Total 300 ml 740 ml Balance 1740.0 ml 1362.5 ml Free Water 200 ml 50 ml IV Total 1450.0 ml 1622.5 ml Tube Feeding 390 ml 430 ml Output Urine Total 300 ml 740 ml # Bowel Movements 1 Laboratory Tests 10/28/20 04:20: White Blood Count 4.7L, Red Blood Count 2.82L, Hemoglobin 8.3L, Hematocrit 27.9L , Mean Corpuscular Volume 99, Mean Corpuscular Hemoglobin 29.4, Mean Corpuscular Hemoglobin Concent 29.7L, Red Cell Distribution Width 19.5H, Platelet Count 198, Mean Platelet Volume 7.7, Neutrophils (%) (Auto) , Lymphocytes (%) (Auto) , Monocytes (%) (Auto) , Eosinophils (%) (Auto) , Basophils (%) (Auto) , Differential Total Cells Counted 100, Neutrophils % (Manual) 86H, Lymphocytes % (Manual) 7L, Monocytes % (Manual) 7, Eosinophils % (Manual) 0, Basophils % (Manual) 0, Band Neutrophils 0, Platelet Estimate Adequate, Platelet Morphology Normal, Hypochromasia 2+, Anisocytosis 2+, Crenated Cell 1+, Schistocytes 1+, Sodium Level 138, Potassium Level 3.4L, Chloride Level 105, Carbon Dioxide Level 23, Anion Gap 10, Blood Urea Nitrogen 37H, Creatinine 2.2H, Estimat Glomerular Filtration Rate 21.3, Glucose Level 197H, Uric Acid 8.0H, Calcium Level 7.6L, Phosphorus Level 3.7, Magnesium Level 1.5L, Total Bilirubin 0.3, Aspartate Amino Transf (AST/SGOT) 7L, Alanine Aminotransferase (ALT/SGPT) 11L, Alkaline Phosphatase 76, C-Reactive Protein, Quantitative 2.0H, Pro-B-Type Natriuretic Peptide > 92140W, Total Protein 5.2L, Albumin 2.2L, Globulin 3.0, Albumin/Globulin Ratio 0.7L 10/28/20 09:34: Arterial Blood pH 7.184*L, Arterial Blood Partial Pressure CO2 59.8*H, Arterial Blood Partial Pressure O2 76.9, Arterial Blood HCO3 22.0, Arterial Blood Oxygen Saturation 94.4L, Arterial Blood Base Excess -6.3L, Gallo Test Positive 10/28/20 12:14: Arterial Blood pH 7.209*L, Arterial Blood Partial Pressure CO2 48.2H, Arterial Blood Partial Pressure O2 95.7, Arterial Blood HCO3 18.8L, Arterial Blood Oxygen Saturation 96.6, Arterial Blood Base Excess -8.7L, Gallo Test Positive Height (Feet): 5 Height (Inches): 0.00 Weight (Pounds): 145 Assessment/Plan Problem List: (1) Anemia ICD Codes: D64.9 - Anemia, unspecified SNOMED: 357066533 (2) Acute kidney injury ICD Codes: N17.9 - Acute kidney failure, unspecified SNOMED: 20610700, 2071394 (3) Atrial fibrillation ICD Codes: I48.91 - Unspecified atrial fibrillation SNOMED: 33040837 (4) Elevated troponin ICD Codes: R77.8 - Other specified abnormalities of plasma proteins SNOMED: 391849447, 972888291, 769094090 (5) Malnutrition ICD Codes: E46 - Unspecified protein-calorie malnutrition SNOMED: 79284935 (6) Pneumonia due to COVID-19 virus ICD Codes: U07.1 - COVID-19; J12.82 - Pneumonia due to coronavirus disease 2019 SNOMED: [id number] (7) Hypothyroidism ICD Codes: E03.9 - Hypothyroidism, unspecified SNOMED: 60126986 Status: progressing Assessment/Plan: bp improving weak check trop kidney function is stable check lytes azotemia covid + poor prognosis Neri Dumont MD Oct 28, 2020 19:38
[2020-10-28] MEDS: Dyna-Hex 2% Top Sol 2oz TOPIC SCH (20:34)
[2020-10-29] VITALS (42 sets, daily range): BP systolic 49–142; BP diastolic 19–126
--- NOTE | 2020-10-29 | NUR ---
NURSE NOTES: bs 150 no coverage
[2020-10-29] MEDS: Piperacillin/Tazobactam 3.375 GM in NS 110 ML IVPB SCH ×2 (01:48→14:03)
[2020-10-29] MEDS: Norepinephrine 4mg/NS Premix 250 ML IV PRN ×2 (02:47→08:47)
--- NOTE | 2020-10-29 02:49 | NUR ---
NURSE NOTES: Complete bed bath with bed changed was done. P200 mattress was placed.
--- NOTE | 2020-10-29 05:00 | NUR ---
NURSE NOTES: Fdg on hold for synthroid meds.
[2020-10-29 05:52] LABS: HEMATOCRIT 25.5 % (37.0-47.0); HEMOGLOBIN 7.8 G/DL (12.0-16.0); MEAN CORPUSCULAR VOLUME 97 FL (80-99); PLATELET COUNT 177 K/UL (150-450); RED BLOOD COUNT 2.63 M/UL (4.20-5.40); RED CELL DISTRIBUTION WIDTH 19.6 % (11.6-14.8)
[2020-10-29] MEDS: Docusate 100mg/10ml Liq GT SCH ×3 (05:52→21:03)
[2020-10-29] MEDS: Midodrine 10mg tab GT SCH (05:52)
[2020-10-29 05:55] LABS: ALBUMIN 2.2 G/DL (3.4-5.0); ALBUMIN/GLOBULIN RATIO 0.8 (1.0-2.7); BILIRUBIN,TOTAL 0.2 MG/DL (0.2-1.0); CALCIUM 7.5 MG/DL (8.5-10.1); CREATININE 2.2 MG/DL (0.55-1.30); POTASSIUM 3.2 MMOL/L (3.5-5.1)
[2020-10-29] MEDS: D5NS 1,000 ML IV SCH ×2 (06:00→15:10)
--- NOTE | 2020-10-29 06:00 | NUR ---
NURSE NOTES: bp 87/62, Levophed drip increased to 20mcg/min by SERGIO zimmerman.
--- NOTE | 2020-10-29 06:48 | Hematology/Onc Progress Note ---
Assessment/Plan Assessment/Plan Assessment and recs # Anemia r/o gi bleed --> anemia panel has been ordered-->reviewed --> hgb 8.1->9.3->9.7-->9.5-->10.5-->10.2-->9.1->8.6-->7.8 --> no hemolysis is noted --> transfuse on prn basis # Thrombocytopenia likely due to reactive process --> plt 138-->149-->176 --> imaging prn --> viral w/u neg # Hypercoag disorder with Atrial fibrillation --> consider anticoag as per cards --> if bleeding, consider hold anticoag # Elevated trop --> per cards # Hyperkalemia --> per renal # Acute kidney injury --> per renal # Resp failure on bipap # Recently COVID-19 positive # Dvt ppx scds --> lovenox sq Appreciate consultation and rosio eugene Subjective HEENT: Denies: no symptoms, eye pain, blurred vision, tearing, double vision, ear pain, ear discharge, nose pain, nose congestion, throat pain, throat swelling, mouth pain, mouth swelling, other Gastrointestinal/Abdominal: Denies: no symptoms, abdomen distended, abdominal pain, black stools, tarry stools, blood in stool, constipated, diarrhea, difficulty swallowing, nausea, poor appetite, poor fluid intake, rectal bleeding, vomiting, other Genitourinary: Denies: no symptoms, burning, discharge, frequency, flank pain, hematuria, incontinence, pain, urgency, other Neurologic/Psychiatric: Denies: no symptoms, anxiety, depressed, emotional problems, headache, numbness, paresthesia, pre-existing deficit, seizure, tingling, tremors, weakness, other Allergies: Coded Allergies: No Known Allergies (Unverified , 10/17/20) Subjective 10/19 cbc is pending, did get blood transfusion last night, pending results 10/20 meds noted, no bleeding, labs reviewed, rosoi rn, no new changes 10/21 on 4l nc, has been refusing labs, meds noted, no bleeding 10/22 nc, refusing meds labs reviewed, rosio rn 10/23 is potentially for egd this am, no bleeding, cbc is noted 2/28 meds noted, no bleeidng, is on nc, no night sweats, bp bolus pending 10/26 bed bath done, meds noted, no bleeding, cbc reviewed from am 10/27 lethargic, on bipap, levophed, meds reviewed 10/28 icu, lethargic, remains on bipap, pressors 10/29 icu, lethargic, meds noted, on bipap, labs noted Objective Objective Current Medications Medications (Trade) Dose Ordered Sig/Yolanda Route PRN Reason Start Time Stop Time Status Last Admin Dose Admin Acetaminophen (Tylenol) 500 mg Q6HR PRN ORAL Mild Pain 1-3 10/17/20 17:45 11/16/20 17:44 Acetaminophen (Tylenol) 500 mg Q6HR PRN ORAL fever >100 10/17/20 18:00 11/16/20 17:59 Acetaminophen (Tylenol) 650 mg Q4H PRN ORAL Pain Scale (6-10) 10/17/20 19:15 11/16/20 19:14 Apixaban (Eliquis) 2.5 mg BID ORAL 10/24/20 18:00 01/22/21 17:59 10/28/20 17:32 Chlorhexidine Gluconate (Eve-Hex 2%) 1 applic DAILY@2000 TOPIC 10/22/20 20:00 01/20/21 19:59 10/28/20 20:34 Dextrose/Sodium Chloride 1,000 ml @ 100 mls/hr Q10H IV 10/25/20 12:00 11/24/20 11:59 10/29/20 06:00 Docusate Sodium (Colace) 10 mg EVERY 8 HOURS GT 10/28/20 14:00 11/24/20 17:59 Levothyroxine Sodium (Synthroid) 50 mcg DAILY@0630 ORAL 10/19/20 06:30 11/18/20 06:29 10/29/20 05:52 Midodrine (Pro-Amatine) 10 mg Q8HR GT 10/26/20 14:00 01/16/21 13:59 10/29/20 05:52 Norepinephrine Bitartrate 250 ml @ 0 mls/hr Q24H PRN IV . 10/26/20 11:09 10/29/20 11:08 10/29/20 02:47 Ondansetron HCl (Zofran) 4 mg Q6H PRN IVP Nausea & Vomiting 10/17/20 21:15 11/16/20 21:14 Pantoprazole (Protonix) 40 mg EVERY 12 HOURS IVP 10/26/20 21:00 11/25/20 20:59 10/28/20 20:34 Piperacillin Sod/ Tazobactam Sod 3.375 gm/Sodium Chloride 110 ml @ 27.5 mls/hr Q12H IVPB 10/26/20 14:00 11/02/20 13:59 10/29/20 01:48 Last 24 Hour Vital Signs Date Time Temp Pulse Resp B/P (MAP) Pulse Ox O2 Delivery O2 Flow Rate FiO2 10/29/20 06:00 112 24 107/73 (84) 99 10/29/20 05:30 108 21 90/48 (62) 98 10/29/20 05:23 107 19 100 24 10/29/20 05:00 104 24 88/40 (56) 98 10/29/20 04:30 104 24 97/42 (60) 98 10/29/20 04:00 98.4 105 24 81/28 (45) 98 10/29/20 04:00 24 10/29/20 04:00 Bi-pap 2.0 Bi-pap Bi-pap 10/29/20 04:00 116 10/29/20 03:30 104 24 85/30 (48) 99 10/29/20 03:29 96 25 100 24 10/29/20 03:00 101 18 75/42 (53) 100 10/29/20 02:47 77/60 10/29/20 02:30 114 25 70/42 (51) 91 10/29/20 02:00 110 28 81/56 (64) 100 10/29/20 01:00 105 24 93/58 (70) 100 10/29/20 00:00 Bi-pap 2.0 Bi-pap Bi-pap 10/29/20 00:00 107 10/29/20 00:00 24 10/29/20 00:00 98.0 107 25 90/48 (62) 100 107 10/28/20 23:34 97 26 100 24 10/28/20 23:00 102 23 86/55 (65) 100 102 10/28/20 22:00 99 21 97/56 (70) 100 99 10/28/20 21:24 98 25 100 24 10/28/20 21:00 96 19 99/64 (76) 100 98 10/28/20 21:00 94 10/28/20 20:00 Bi-pap 2.0 Bi-pap Bi-pap 10/28/20 20:00 97.8 97 19 106/69 (81) 100 94 10/28/20 20:00 24 10/28/20 19:29 95 17 100 24 10/28/20 19:00 112 22 108/52 (70) 100 10/28/20 18:00 104 22 127/67 (87) 100 10/28/20 17:00 109 20 124/67 (86) 100 10/28/20 16:33 106/59 10/28/20 16:00 103 10/28/20 16:00 97.3 98 19 89/47 (61) 98 10/28/20 16:00 24 10/28/20 16:00 Bi-pap 2.0 Bi-pap Bi-pap 10/28/20 15:26 100 16 99 24 10/28/20 15:00 96 18 95/45 (62) 98 10/28/20 14:00 108 20 98/43 (61) 98 10/28/20 12:59 99 20 109/57 (74) 100 10/28/20 12:00 97.6 91 20 116/78 (91) 100 10/28/20 12:00 91 10/28/20 12:00 24 10/28/20 12:00 Bi-pap 2.0 Bi-pap Bi-pap 10/28/20 11:00 109 21 122/86 (98) 100 10/28/20 10:53 114 17 100 24 10/28/20 10:00 107 20 106/57 (73) 100 10/28/20 09:47 119/73 10/28/20 09:45 97 17 108/54 (72) 100 10/28/20 09:30 98 18 119/63 (81) 10/28/20 09:15 103 21 104/60 (75) 10/28/20 09:00 105 22 97/53 (68) 10/28/20 08:45 98 16 123/51 (75) 10/28/20 08:30 108 20 117/81 (93) 10/28/20 08:05 24 10/28/20 08:05 24 10/28/20 08:00 30 10/28/20 08:00 Bi-pap 10/28/20 08:00 98.1 99 16 111/65 (80) 10/28/20 07:46 106 10/28/20 07:43 111 14 100 30 10/28/20 07:30 102 17 106/47 (66) 10/28/20 07:00 94 17 94/94 (94) 100 10/28/20 06:00 96 17 94/45 (61) 100 10/28/20 05:30 96 18 87/42 (57) 100 10/28/20 05:00 95 16 94/30 (51) 100 10/28/20 04:30 107 18 98/31 (53) 98 10/28/20 04:00 97.6 107 18 90/31 (50) 100 10/28/20 04:00 30 10/28/20 04:00 103 10/28/20 04:00 Bi-pap 10/28/20 03:30 102 20 100 30 10/28/20 03:30 103 19 87/39 (55) 100 10/28/20 03:00 107 19 106/25 (52) 100 10/28/20 02:30 103 19 100/50 (67) 100 10/28/20 02:07 98/48 10/28/20 02:00 94 20 98/48 (65) 100 10/28/20 01:30 104 22 100/52 (68) 100 10/28/20 01:30 104 22 110/56 (74) 100 10/28/20 01:15 100 21 112/53 (72) 100 10/28/20 01:00 93 17 114/53 (73) 100 10/28/20 01:00 93 17 114/53 (73) 100 10/28/20 00:45 94 18 109/50 (69) 100 10/28/20 00:30 97 17 115/53 (73) 100 10/28/20 00:30 97 17 115/53 (73) 100 10/28/20 00:15 100 19 132/57 (82) 100 10/28/20 00:00 Bi-pap 10/28/20 00:00 30 10/28/20 00:00 105 10/28/20 00:00 98.0 99 19 118/55 (76) 100 10/28/20 00:00 99 19 118/55 (76) 100 10/27/20 23:30 103 19 100 30 10/27/20 23:30 104 21 131/58 (82) 100 10/27/20 23:00 96 17 109/48 (68) 100 10/27/20 22:00 95 17 126/50 (75) 100 10/27/20 21:30 99 18 103/47 (65) 10/27/20 21:00 102 18 125/60 (81) 100 10/27/20 20:30 99 16 104/52 (69) 100 10/27/20 20:00 72 10/27/20 20:00 97.4 96 16 108/55 (72) 100 10/27/20 20:00 Bi-pap 10/27/20 20:00 30 10/27/20 19:30 99 18 129/55 (79) 100 10/27/20 19:30 91 16 100 30 10/27/20 19:00 105 21 131/74 (93) 10/27/20 18:05 98/67 10/27/20 18:00 103 19 130/67 (88) 100 10/27/20 17:00 98 18 122/71 (88) 100 10/27/20 16:00 86 10/27/20 16:00 30 10/27/20 16:00 Bi-pap 10/27/20 16:00 97.2 100 18 126/80 (95) 100 10/27/20 15:18 97 22 100 30 10/27/20 15:00 104 21 125/56 (79) 100 10/27/20 14:00 102 17 116/66 (83) 99 10/27/20 13:00 94 17 108/49 (68) 10/27/20 12:00 30 10/27/20 12:00 114 10/27/20 12:00 Bi-pap 10/27/20 12:00 97.6 90 19 99/44 (62) 10/27/20 11:35 91 20 100 30 10/27/20 11:05 130/60 10/27/20 11:00 96 18 130/60 (83) 100 10/27/20 10:00 98 18 113/74 (87) 100 10/27/20 09:00 104 22 105/67 (80) 98 10/27/20 08:00 98.2 111 23 117/94 (102) 98 10/27/20 08:00 88 10/27/20 08:00 30 10/27/20 08:00 Bi-pap 10/27/20 07:10 111 14 100 30 10/27/20 07:00 129 29 151/82 (105) Intake and Output 10/28/20 10/29/20 19:00 07:00 Intake Total 1969.331 ml 2162.5 ml Output Total 410 ml 420 ml Balance 1559.331 ml 1742.5 ml Free Water 50 ml 150 ml IV Total 1469.331 ml 1462.5 ml Tube Feeding 450 ml 550 ml Output Urine Total 410 ml 420 ml # Bowel Movements 1 Labs Test 10/26/20 14:44 10/26/20 19:21 10/27/20 04:25 10/27/20 11:35 Arterial Blood pH 7.081 (7.350-7.450) 7.194 (7.350-7.450) 7.185 (7.350-7.450) Arterial Blood Partial Pressure CO2 86.3 mmHg (35.0-45.0) 59.7 mmHg (35.0-45.0) 55.8 mmHg (35.0-45.0) Arterial Blood Partial Pressure O2 90.7 mmHg (75.0-100.0) 111.0 mmHg (75.0-100.0) 103.8 mmHg (75.0-100.0) Arterial Blood HCO3 25.1 mmol/L (22.0-26.0) 22.5 mmol/L (22.0-26.0) 20.6 mmol/L (22.0-26.0) Arterial Blood Oxygen Saturation 95.4 % (95-100) 97.3 % (95-100) 96.4 % (95-100) Arterial Blood Base Excess -5.7 (-2-2) -5.9 (-2-2) -7.5 (-2-2) Gallo Test Positive Positive Positive White Blood Count 5.5 K/UL (4.8-10.8) Red Blood Count 2.83 M/UL (4.20-5.40) Hemoglobin 8.6 G/DL (12.0-16.0) Hematocrit 27.9 % (37.0-47.0) Mean Corpuscular Volume 99 FL (80-99) Mean Corpuscular Hemoglobin 30.3 PG (27.0-31.0) Mean Corpuscular Hemoglobin Concent 30.7 G/DL (32.0-36.0) Red Cell Distribution Width 19.8 % (11.6-14.8) Platelet Count 161 K/UL (150-450) Mean Platelet Volume 7.8 FL (6.5-10.1) Neutrophils (%) (Auto) % (45.0-75.0) Lymphocytes (%) (Auto) % (20.0-45.0) Monocytes (%) (Auto) % (1.0-10.0) Eosinophils (%) (Auto) % (0.0-3.0) Basophils (%) (Auto) % (0.0-2.0) Differential Total Cells Counted 100 Neutrophils % (Manual) 86 % (45-75) Lymphocytes % (Manual) 10 % (20-45) Monocytes % (Manual) 3 % (1-10) Eosinophils % (Manual) 0 % (0-3) Basophils % (Manual) 1 % (0-2) Band Neutrophils 0 % (0-8) Platelet Estimate Adequate Platelet Morphology Normal Hypochromasia 1+ Anisocytosis 2+ Microcytosis Occasional Macrocytosis 1+ Sodium Level 136 MMOL/L (136-145) Potassium Level 3.7 MMOL/L (3.5-5.1) Chloride Level 104 MMOL/L (98-107) Carbon Dioxide Level 24 MMOL/L (21-32) Anion Gap 8 mmol/L (5-15) Blood Urea Nitrogen 36 mg/dL (7-18) Creatinine 2.3 MG/DL (0.55-1.30) Estimat Glomerular Filtration Rate 20.3 mL/min (>60) Glucose Level 195 MG/DL (74-106) Uric Acid 8.2 MG/DL (2.6-7.2) Calcium Level 7.4 MG/DL (8.5-10.1) Phosphorus Level 3.9 MG/DL (2.5-4.9) Magnesium Level 1.8 MG/DL (1.8-2.4) Total Bilirubin 0.3 MG/DL (0.2-1.0) Aspartate Amino Transf (AST/SGOT) 8 U/L (15-37) Alanine Aminotransferase (ALT/SGPT) 10 U/L (12-78) Alkaline Phosphatase 88 U/L (46-116) C-Reactive Protein, Quantitative 3.6 mg/dL (0.00-0.90) Pro-B-Type Natriuretic Peptide > 78509 pg/mL (0-125) Total Protein 5.2 G/DL (6.4-8.2) Albumin 2.3 G/DL (3.4-5.0) Globulin 2.9 g/dL Albumin/Globulin Ratio 0.8 (1.0-2.7) Test 10/28/20 04:20 10/28/20 09:34 10/28/20 12:14 10/29/20 04:40 White Blood Count 4.7 K/UL (4.8-10.8) 5.0 K/UL (4.8-10.8) Red Blood Count 2.82 M/UL (4.20-5.40) 2.63 M/UL (4.20-5.40) Hemoglobin 8.3 G/DL (12.0-16.0) 7.8 G/DL (12.0-16.0) Hematocrit 27.9 % (37.0-47.0) 25.5 % (37.0-47.0) Mean Corpuscular Volume 99 FL (80-99) 97 FL (80-99) Mean Corpuscular Hemoglobin 29.4 PG (27.0-31.0) 29.8 PG (27.0-31.0) Mean Corpuscular Hemoglobin Concent 29.7 G/DL (32.0-36.0) 30.7 G/DL (32.0-36.0) Red Cell Distribution Width 19.5 % (11.6-14.8) 19.6 % (11.6-14.8) Platelet Count 198 K/UL (150-450) 177 K/UL (150-450) Mean Platelet Volume 7.7 FL (6.5-10.1) 7.7 FL (6.5-10.1) Neutrophils (%) (Auto) % (45.0-75.0) % (45.0-75.0) Lymphocytes (%) (Auto) % (20.0-45.0) % (20.0-45.0) Monocytes (%) (Auto) % (1.0-10.0) % (1.0-10.0) Eosinophils (%) (Auto) % (0.0-3.0) % (0.0-3.0) Basophils (%) (Auto) % (0.0-2.0) % (0.0-2.0) Differential Total Cells Counted 100 Neutrophils % (Manual) 86 % (45-75) Lymphocytes % (Manual) 7 % (20-45) Monocytes % (Manual) 7 % (1-10) Eosinophils % (Manual) 0 % (0-3) Basophils % (Manual) 0 % (0-2) Band Neutrophils 0 % (0-8) Platelet Estimate Adequate Platelet Morphology Normal Hypochromasia 2+ Anisocytosis 2+ Crenated Cell 1+ Schistocytes 1+ Sodium Level 138 MMOL/L (136-145) 141 MMOL/L (136-145) Potassium Level 3.4 MMOL/L (3.5-5.1) 3.2 MMOL/L (3.5-5.1) Chloride Level 105 MMOL/L (98-107) 108 MMOL/L (98-107) Carbon Dioxide Level 23 MMOL/L (21-32) 22 MMOL/L (21-32) Anion Gap 10 mmol/L (5-15) 11 mmol/L (5-15) Blood Urea Nitrogen 37 mg/dL (7-18) 38 mg/dL (7-18) Creatinine 2.2 MG/DL (0.55-1.30) 2.2 MG/DL (0.55-1.30) Estimat Glomerular Filtration Rate 21.3 mL/min (>60) 21.3 mL/min (>60) Glucose Level 197 MG/DL (74-106) 131 MG/DL (74-106) Uric Acid 8.0 MG/DL (2.6-7.2) 7.6 MG/DL (2.6-7.2) Calcium Level 7.6 MG/DL (8.5-10.1) 7.5 MG/DL (8.5-10.1) Phosphorus Level 3.7 MG/DL (2.5-4.9) 3.0 MG/DL (2.5-4.9) Magnesium Level 1.5 MG/DL (1.8-2.4) 2.2 MG/DL (1.8-2.4) Total Bilirubin 0.3 MG/DL (0.2-1.0) 0.2 MG/DL (0.2-1.0) Aspartate Amino Transf (AST/SGOT) 7 U/L (15-37) 9 U/L (15-37) Alanine Aminotransferase (ALT/SGPT) 11 U/L (12-78) 7 U/L (12-78) Alkaline Phosphatase 76 U/L (46-116) 68 U/L (46-116) C-Reactive Protein, Quantitative 2.0 mg/dL (0.00-0.90) 1.0 mg/dL (0.00-0.90) Pro-B-Type Natriuretic Peptide > 76892 pg/mL (0-125) > 04690 pg/mL (0-125) Total Protein 5.2 G/DL (6.4-8.2) 4.9 G/DL (6.4-8.2) Albumin 2.2 G/DL (3.4-5.0) 2.2 G/DL (3.4-5.0) Globulin 3.0 g/dL 2.7 g/dL Albumin/Globulin Ratio 0.7 (1.0-2.7) 0.8 (1.0-2.7) Arterial Blood pH 7.184 (7.350-7.450) 7.209 (7.350-7.450) Arterial Blood Partial Pressure CO2 59.8 mmHg (35.0-45.0) 48.2 mmHg (35.0-45.0) Arterial Blood Partial Pressure O2 76.9 mmHg (75.0-100.0) 95.7 mmHg (75.0-100.0) Arterial Blood HCO3 22.0 mmol/L (22.0-26.0) 18.8 mmol/L (22.0-26.0) Arterial Blood Oxygen Saturation 94.4 % (95-100) 96.6 % (95-100) Arterial Blood Base Excess -6.3 (-2-2) -8.7 (-2-2) Gallo Test Positive Positive Height (Feet): 5 Height (Inches): 0.00 Weight (Pounds): 145 Objective Physical Exam General: Awake and alert, no acute distress HEENT: NC/AT. EOMI. Cardiovascular: Irregularly irregular rhythm. Normal heart rate Resp: Normal work of breathing. + bipap Abdomen: Abdomen is soft, nondistended. Nontender Skin: Intact. No abrasions, laceration or rash over the exposed skin MSK: Normal tone and bulk. Moving all extremities. No obvious deformity. Neuro: Awake and alert. Mentating appropriately. Hawk Ma MD Oct 29, 2020 06:48
--- NOTE | 2020-10-29 07:35 | NUR ---
NURSE NOTES: Report received from SERGIO govea. Blood pressure increased to 93/53 after increasing dose of Levophed to 25mcg/min. she is currently obtunded able to sound incomprehensible words while wearing a bipap mask for oxygenation. Current bipap setting are 20/5 at fio2 of 24% with saturations of 97-98%. patient has d5ns at 100ml/hr running though a right femoral TLC. inserted on 10/25. all ports are patent with blood return present. patient tube feeding was held after increasing levophed dose, patient urine is straw colored, patient is on air loss mattress to prevent skin breakdown.
--- NOTE | 2020-10-29 07:45 | NUR ---
NURSE HAND-OFF REPORT: Latest Vital Signs: Temperature 98.4 , Pulse 122 , B/P 93 /75 , Respiratory Rate 26 , O2 SAT 97 , Simple Mask, O2 Flow Rate 2.0 . Vital Sign Comment: EKG Rhythm: Atrial Fibrillation Rhythm change?: N MD Notified?: - MD Response: Latest Elizabeth Fall Score: 70 Fall Risk: High Risk Safety Measures: Call light Within Reach, Bed Alarm Zone 1, Side Rails Side Rails x3, Bed position Low and Locked. Fall Precautions: Yellow Socks Patient Fall Education Report given to .
[2020-10-29] MEDS: Eliquis 2.5mg tablet ORAL SCH ×2 (09:00→18:00)
[2020-10-29] MEDS: Pantoprazole Inj IVP SCH ×2 (09:15→21:02)
--- NOTE | 2020-10-29 09:45 | NUR ---
NURSE NOTES: Dr. sanchez updated on the patient condition this morning, Levophed is currently at 25mg/min and remains on bipap with setting of 20/5 with 24% FIO2. she is saturating at 95-98% with no distress noted. informed the patient appears to be declining from yesterdays condition. no orders given at this time.
--- NOTE | 2020-10-29 09:57 | NUR ---
NURSE NOTES: Dr. Gómez is at the bedsdie assessing patient and explained the order for blood needs to be changed, gave order to place PRBC plus type and cross to be placed under his name. potassium chloride 20meq started for potassium level of 3.2
--- NOTE | 2020-10-29 10:08 | Infectious Diseases Prog Note ---
Assessment/Plan Assessment/Plan IMPRESSION: Pneumonia Hypercapnic respiratory failure Recent history of COVID disease, Acute renal failure, Severe aortic stenosis Atrial fibrillation, hypothyroidism, Anemia. Chronic DVT of R leg Hypotension Gastrostomy status RECOMMENDATION: Continue Zosyn Subjective ROS Limited/Unobtainable: Yes Cardiovascular: Reports: other - on Levophed Allergies: Coded Allergies: No Known Allergies (Unverified , 10/17/20) Objective Last 24 Hour Vital Signs Date Time Temp Pulse Resp B/P (MAP) Pulse Ox O2 Delivery O2 Flow Rate FiO2 10/29/20 09:00 123 25 142/94 (110) 88 10/29/20 08:47 73/25 10/29/20 08:30 118 25 49/19 (29) 10/29/20 08:00 Bi-pap Bi-pap Bi-pap 10/29/20 08:00 127 10/29/20 08:00 98.0 130 23 120/47 (71) 10/29/20 07:43 24 10/29/20 07:38 122 26 93/75 (81) 97 10/29/20 07:30 122 26 97 10/29/20 07:20 124 23 99 24 10/29/20 07:00 115 21 64/26 (39) 95 10/29/20 06:00 112 24 107/73 (84) 99 10/29/20 05:30 108 21 90/48 (62) 98 10/29/20 05:23 107 19 100 24 10/29/20 05:00 104 24 88/40 (56) 98 10/29/20 04:30 104 24 97/42 (60) 98 10/29/20 04:00 98.4 105 24 81/28 (45) 98 10/29/20 04:00 24 10/29/20 04:00 Bi-pap 2.0 Bi-pap Bi-pap 10/29/20 04:00 116 10/29/20 03:30 104 24 85/30 (48) 99 10/29/20 03:29 96 25 100 24 10/29/20 03:00 101 18 75/42 (53) 100 10/29/20 02:47 77/60 10/29/20 02:30 114 25 70/42 (51) 91 10/29/20 02:00 110 28 81/56 (64) 100 10/29/20 01:00 105 24 93/58 (70) 100 10/29/20 00:00 Bi-pap 2.0 Bi-pap Bi-pap 10/29/20 00:00 107 10/29/20 00:00 24 10/29/20 00:00 98.0 107 25 90/48 (62) 100 107 10/28/20 23:34 97 26 100 24 10/28/20 23:00 102 23 86/55 (65) 100 102 10/28/20 22:00 99 21 97/56 (70) 100 99 10/28/20 21:24 98 25 100 24 10/28/20 21:00 96 19 99/64 (76) 100 98 10/28/20 21:00 94 10/28/20 20:00 Bi-pap 2.0 Bi-pap Bi-pap 10/28/20 20:00 97.8 97 19 106/69 (81) 100 94 10/28/20 20:00 24 10/28/20 19:29 95 17 100 24 10/28/20 19:00 112 22 108/52 (70) 100 10/28/20 18:00 104 22 127/67 (87) 100 10/28/20 17:00 109 20 124/67 (86) 100 10/28/20 16:33 106/59 10/28/20 16:00 103 10/28/20 16:00 97.3 98 19 89/47 (61) 98 10/28/20 16:00 24 10/28/20 16:00 Bi-pap 2.0 Bi-pap Bi-pap 10/28/20 15:26 100 16 99 24 10/28/20 15:00 96 18 95/45 (62) 98 10/28/20 14:00 108 20 98/43 (61) 98 10/28/20 12:59 99 20 109/57 (74) 100 10/28/20 12:00 97.6 91 20 116/78 (91) 100 10/28/20 12:00 91 10/28/20 12:00 24 10/28/20 12:00 Bi-pap 2.0 Bi-pap Bi-pap 10/28/20 11:00 109 21 122/86 (98) 100 10/28/20 10:53 114 17 100 24 Height (Feet): 5 Height (Inches): 0.00 Weight (Pounds): 145 HEENT: mucous membranes moist Respiratory/Chest: decreased breath sounds, other - on BIPAP Cardiovascular: tachycardia Abdomen: soft, non tender Extremities: other - generalized edema Neurologic/Psychiatric: other - open eyes Laboratory Tests Test 10/28/20 12:14 10/29/20 04:40 Arterial Blood pH 7.209 (7.350-7.450) Arterial Blood Partial Pressure CO2 48.2 mmHg (35.0-45.0) H Arterial Blood Partial Pressure O2 95.7 mmHg (75.0-100.0) Arterial Blood HCO3 18.8 mmol/L (22.0-26.0) L Arterial Blood Oxygen Saturation 96.6 % (95-100) Arterial Blood Base Excess -8.7 (-2-2) L Gallo Test Positive White Blood Count 5.0 K/UL (4.8-10.8) Red Blood Count 2.63 M/UL (4.20-5.40) L Hemoglobin 7.8 G/DL (12.0-16.0) L Hematocrit 25.5 % (37.0-47.0) L Mean Corpuscular Volume 97 FL (80-99) Mean Corpuscular Hemoglobin 29.8 PG (27.0-31.0) Mean Corpuscular Hemoglobin Concent 30.7 G/DL (32.0-36.0) L Red Cell Distribution Width 19.6 % (11.6-14.8) H Platelet Count 177 K/UL (150-450) Mean Platelet Volume 7.7 FL (6.5-10.1) Neutrophils (%) (Auto) % (45.0-75.0) Lymphocytes (%) (Auto) % (20.0-45.0) Monocytes (%) (Auto) % (1.0-10.0) Eosinophils (%) (Auto) % (0.0-3.0) Basophils (%) (Auto) % (0.0-2.0) Differential Total Cells Counted 100 Neutrophils % (Manual) 80 % (45-75) H Lymphocytes % (Manual) 9 % (20-45) L Monocytes % (Manual) 6 % (1-10) Eosinophils % (Manual) 1 % (0-3) Basophils % (Manual) 0 % (0-2) Band Neutrophils 4 % (0-8) Platelet Estimate Adequate Platelet Morphology Normal Hypochromasia 1+ Anisocytosis 2+ Sodium Level 141 MMOL/L (136-145) Potassium Level 3.2 MMOL/L (3.5-5.1) L Chloride Level 108 MMOL/L (98-107) H Carbon Dioxide Level 22 MMOL/L (21-32) Anion Gap 11 mmol/L (5-15) Blood Urea Nitrogen 38 mg/dL (7-18) H Creatinine 2.2 MG/DL (0.55-1.30) H Estimat Glomerular Filtration Rate 21.3 mL/min (>60) Glucose Level 131 MG/DL (74-106) H Uric Acid 7.6 MG/DL (2.6-7.2) H Calcium Level 7.5 MG/DL (8.5-10.1) L Phosphorus Level 3.0 MG/DL (2.5-4.9) Magnesium Level 2.2 MG/DL (1.8-2.4) Total Bilirubin 0.2 MG/DL (0.2-1.0) Aspartate Amino Transf (AST/SGOT) 9 U/L (15-37) L Alanine Aminotransferase (ALT/SGPT) 7 U/L (12-78) L Alkaline Phosphatase 68 U/L (46-116) C-Reactive Protein, Quantitative 1.0 mg/dL (0.00-0.90) H Pro-B-Type Natriuretic Peptide > 17581 pg/mL (0-125) H Total Protein 4.9 G/DL (6.4-8.2) L Albumin 2.2 G/DL (3.4-5.0) L Globulin 2.7 g/dL Albumin/Globulin Ratio 0.8 (1.0-2.7) L Current Medications Medications (Trade) Dose Ordered Sig/Yolanda Route PRN Reason Start Time Stop Time Status Last Admin Dose Admin Acetaminophen (Tylenol) 500 mg Q6HR PRN ORAL Mild Pain 1-3 10/17/20 17:45 11/16/20 17:44 Acetaminophen (Tylenol) 500 mg Q6HR PRN ORAL fever >100 10/17/20 18:00 11/16/20 17:59 Acetaminophen (Tylenol) 650 mg Q4H PRN ORAL Pain Scale (6-10) 10/17/20 19:15 11/16/20 19:14 Apixaban (Eliquis) 2.5 mg BID ORAL 10/24/20 18:00 01/22/21 17:59 10/28/20 17:32 Chlorhexidine Gluconate (Eve-Hex 2%) 1 applic DAILY@1999 TOPIC 10/22/20 20:00 01/20/21 19:59 10/28/20 20:34 Dextrose/Sodium Chloride 1,000 ml @ 100 mls/hr Q10H IV 10/25/20 12:00 11/24/20 11:59 10/29/20 06:00 Docusate Sodium (Colace) 10 mg EVERY 8 HOURS GT 10/28/20 14:00 11/24/20 17:59 Levothyroxine Sodium (Synthroid) 50 mcg DAILY@0630 ORAL 10/19/20 06:30 11/18/20 06:29 10/29/20 05:52 Midodrine (Pro-Amatine) 10 mg Q8HR GT 10/26/20 14:00 01/16/21 13:59 10/29/20 05:52 Norepinephrine Bitartrate 250 ml @ 0 mls/hr Q24H PRN IV . 10/26/20 11:09 10/29/20 11:08 10/29/20 08:47 Norepinephrine Bitartrate 8 mg/ Dextrose 558 ml @ 0 mls/hr Q24H IV 10/29/20 11:00 11/01/20 10:59 Ondansetron HCl (Zofran) 4 mg Q6H PRN IVP Nausea & Vomiting 10/17/20 21:15 11/16/20 21:14 Pantoprazole (Protonix) 40 mg EVERY 12 HOURS IVP 10/26/20 21:00 11/25/20 20:59 10/29/20 09:15 Piperacillin Sod/ Tazobactam Sod 3.375 gm/Sodium Chloride 110 ml @ 27.5 mls/hr Q12H IVPB 10/26/20 14:00 11/02/20 13:59 10/29/20 01:48 Potassium Chloride 100 ml @ 50 mls/hr ONCE ONCE IVPB 10/29/20 09:00 10/29/20 10:59 10/29/20 09:16 Luis Alvarado MD Oct 29, 2020 10:08
--- NOTE | 2020-10-29 10:13 | NUR ---
NURSE NOTES: Dr. Reyes is at the bedside assessing, updated on the patient heart rate remaining at 120-138 in af-fibb. no fever is present with temperature of 98.0 F taken axillary and no pain noted using the flacc scale, ordered to have one dose of digoxin 0.250mg to be given IVP once time and place and order for daily digoxin 0.125mg G-tube. no other orders given at this time
[2020-10-29] MEDS ORDERED: Digoxin 0.5mg/2ml Inj IVP SCH (10:15)
--- NOTE | 2020-10-29 10:21 | Nephrology Progress Note ---
Assessment/Plan Problem List: (1) Acute kidney injury (2) Anemia (3) Hyperkalemia (4) Elevated troponin (5) Pneumonia due to COVID-19 virus (6) Hypothyroidism Assessment Plan October 29: Seen in ICU. Discussed with SERGIO Wilkerson. Hemoglobin low. Transfuse 1 unit of packed RBCs. Potassium supplements IV given. Midodrine discontinued. Serum creatinine 2.2 stable. Patient remains on BiPAP. Continue per consultants. Continue to monitor hemoglobin hematocrit electrolytes and renal parameters. October 28: Seen in ICU. Remains on BiPAP. Low potassium and low magnesium addressed. Serum creatinine plateaued at 2.2. Continue per current treatment plan. October 27: Patient in ICU. On BiPAP. Serum creatinine rising. Blood pressure more stable. Will give 100 mg Lasix IV push with the hope of reversing oliguria. Medication list reviewed. Continue to monitor renal parameters. October 26: Seen in ICU. On pressors for low blood pressure. Serum creatinine 2.1. Albumin bolus given. Stress dose of steroids initiated. Continue to monitor renal parameters. Continue per consultants. October 25: Patient seen and examined. Trendelenburg. Blood pressure low. Tachycardic. Discussed with RN. Patient to be transferred to ICU. Discussed with ICU charge nurse and hospital charge nurse. Meanwhile patient started on Albumin bolus and 100 cc an hour D5 normal saline. Patient to be started on pressors while in ICU. Patient full code. October 24: No CHEM panel drawn today.. Renal parameters stable. Patient had a GT placed yesterday. Will check labs tomorrow. Medication list reviewed. October 23: Labs reviewed. Renal parameters unchanged. Creatinine 1.9. Continue current management. Medication list reviewed. October 22: Labs reviewed. Serum creatinine lower at 1.8. Patient started on clear liquid. Patient refuses p.o. medications and food at times. Continue per consultants. October 21: Labs reviewed. Serum creatinine unchanged. Continue per consultants. Continue to monitor renal parameters. October 20: Today's labs reviewed. Serum creatinine unchanged. RN reports patient not taking any p.o. meds. Continue per consultants. Serum creatinine appears to be baseline. October 19: Today's labs still not done yet. RN informed. Albumin bolus given again. Continue to monitor electrolytes and renal parameters. Per orders October 18: Patient hypotensive. Due for blood transfusion. Will give albumin bolus. Continue to monitor renal parameters and electrolytes. Labs and medication list reviewed Subjective ROS Limited/Unobtainable: Yes Objective Objective Last 24 Hour Vital Signs Date Time Temp Pulse Resp B/P (MAP) Pulse Ox O2 Delivery O2 Flow Rate FiO2 10/29/20 09:00 123 25 142/94 (110) 88 10/29/20 08:47 73/25 10/29/20 08:30 118 25 49/19 (29) 10/29/20 08:00 Bi-pap Bi-pap Bi-pap 10/29/20 08:00 127 10/29/20 08:00 98.0 130 23 120/47 (71) 10/29/20 07:43 24 10/29/20 07:38 122 26 93/75 (81) 97 10/29/20 07:30 122 26 97 10/29/20 07:20 124 23 99 24 10/29/20 07:00 115 21 64/26 (39) 95 10/29/20 06:00 112 24 107/73 (84) 99 10/29/20 05:30 108 21 90/48 (62) 98 10/29/20 05:23 107 19 100 24 10/29/20 05:00 104 24 88/40 (56) 98 10/29/20 04:30 104 24 97/42 (60) 98 10/29/20 04:00 98.4 105 24 81/28 (45) 98 10/29/20 04:00 24 10/29/20 04:00 Bi-pap 2.0 Bi-pap Bi-pap 10/29/20 04:00 116 10/29/20 03:30 104 24 85/30 (48) 99 10/29/20 03:29 96 25 100 24 10/29/20 03:00 101 18 75/42 (53) 100 10/29/20 02:47 77/60 10/29/20 02:30 114 25 70/42 (51) 91 10/29/20 02:00 110 28 81/56 (64) 100 10/29/20 01:00 105 24 93/58 (70) 100 10/29/20 00:00 Bi-pap 2.0 Bi-pap Bi-pap 10/29/20 00:00 107 10/29/20 00:00 24 10/29/20 00:00 98.0 107 25 90/48 (62) 100 107 10/28/20 23:34 97 26 100 24 10/28/20 23:00 102 23 86/55 (65) 100 102 10/28/20 22:00 99 21 97/56 (70) 100 99 10/28/20 21:24 98 25 100 24 10/28/20 21:00 96 19 99/64 (76) 100 98 10/28/20 21:00 94 10/28/20 20:00 Bi-pap 2.0 Bi-pap Bi-pap 10/28/20 20:00 97.8 97 19 106/69 (81) 100 94 10/28/20 20:00 24 10/28/20 19:29 95 17 100 24 10/28/20 19:00 112 22 108/52 (70) 100 10/28/20 18:00 104 22 127/67 (87) 100 10/28/20 17:00 109 20 124/67 (86) 100 10/28/20 16:33 106/59 10/28/20 16:00 103 10/28/20 16:00 97.3 98 19 89/47 (61) 98 10/28/20 16:00 24 10/28/20 16:00 Bi-pap 2.0 Bi-pap Bi-pap 10/28/20 15:26 100 16 99 24 10/28/20 15:00 96 18 95/45 (62) 98 10/28/20 14:00 108 20 98/43 (61) 98 10/28/20 12:59 99 20 109/57 (74) 100 10/28/20 12:00 97.6 91 20 116/78 (91) 100 10/28/20 12:00 91 10/28/20 12:00 24 10/28/20 12:00 Bi-pap 2.0 Bi-pap Bi-pap 10/28/20 11:00 109 21 122/86 (98) 100 10/28/20 10:53 114 17 100 24 Intake and Output 10/28/20 10/29/20 18:59 06:59 Intake Total 2056.831 ml 2212.5 ml Output Total 425 ml 455 ml Balance 1631.831 ml 1757.5 ml Free Water 50 ml 150 ml IV Total 1606.831 ml 1462.5 ml Tube Feeding 400 ml 600 ml Output Urine Total 425 ml 455 ml # Bowel Movements 1 Current Medications Medications (Trade) Dose Ordered Sig/Yolanda Route PRN Reason Start Time Stop Time Status Last Admin Dose Admin Acetaminophen (Tylenol) 500 mg Q6HR PRN ORAL Mild Pain 1-3 10/17/20 17:45 11/16/20 17:44 Acetaminophen (Tylenol) 500 mg Q6HR PRN ORAL fever >100 10/17/20 18:00 11/16/20 17:59 Acetaminophen (Tylenol) 650 mg Q4H PRN ORAL Pain Scale (6-10) 10/17/20 19:15 11/16/20 19:14 Apixaban (Eliquis) 2.5 mg BID ORAL 10/24/20 18:00 01/22/21 17:59 10/28/20 17:32 Chlorhexidine Gluconate (Eve-Hex 2%) 1 applic DAILY@2000 TOPIC 10/22/20 20:00 01/20/21 19:59 10/28/20 20:34 Dextrose/Sodium Chloride 1,000 ml @ 100 mls/hr Q10H IV 10/25/20 12:00 11/24/20 11:59 10/29/20 06:00 Digoxin (Lanoxin) 0.125 mg DAILY GT 10/30/20 09:00 01/28/21 08:59 Digoxin (Lanoxin) 0.25 mg ONCE IVP 10/29/20 10:15 10/29/20 11:30 Docusate Sodium (Colace) 10 mg EVERY 8 HOURS GT 10/28/20 14:00 11/24/20 17:59 Levothyroxine Sodium (Synthroid) 50 mcg DAILY@0630 ORAL 10/19/20 06:30 11/18/20 06:29 10/29/20 05:52 Midodrine (Pro-Amatine) 10 mg Q8HR GT 10/26/20 14:00 01/16/21 13:59 10/29/20 05:52 Norepinephrine Bitartrate 250 ml @ 0 mls/hr Q24H PRN IV . 10/26/20 11:09 10/29/20 11:08 10/29/20 08:47 Norepinephrine Bitartrate 8 mg/ Dextrose 558 ml @ 0 mls/hr Q24H IV 10/29/20 11:00 11/01/20 10:59 Ondansetron HCl (Zofran) 4 mg Q6H PRN IVP Nausea & Vomiting 10/17/20 21:15 11/16/20 21:14 Pantoprazole (Protonix) 40 mg EVERY 12 HOURS IVP 10/26/20 21:00 11/25/20 20:59 10/29/20 09:15 Piperacillin Sod/ Tazobactam Sod 3.375 gm/Sodium Chloride 110 ml @ 27.5 mls/hr Q12H IVPB 10/26/20 14:00 11/02/20 13:59 10/29/20 01:48 Potassium Chloride 100 ml @ 50 mls/hr ONCE ONCE IVPB 10/29/20 09:00 10/29/20 10:59 10/29/20 09:16 Laboratory Tests 10/28/20 12:14: Arterial Blood pH 7.209*L, Arterial Blood Partial Pressure CO2 48.2H, Arterial Blood Partial Pressure O2 95.7, Arterial Blood HCO3 18.8L, Arterial Blood Oxygen Saturation 96.6, Arterial Blood Base Excess -8.7L, Gallo Test Positive 10/29/20 04:40: White Blood Count 5.0, Red Blood Count 2.63L, Hemoglobin 7.8L, Hematocrit 25.5L, Mean Corpuscular Volume 97, Mean Corpuscular Hemoglobin 29.8, Mean Corpuscular Hemoglobin Concent 30.7L, Red Cell Distribution Width 19.6H, Platelet Count 177, Mean Platelet Volume 7.7, Neutrophils (%) (Auto) , Lymphocytes (%) (Auto) , Monocytes (%) (Auto) , Eosinophils (%) (Auto) , Basophils (%) (Auto) , Differential Total Cells Counted 100, Neutrophils % (Manual) 80H, Lymphocytes % (Manual) 9L, Monocytes % (Manual) 6, Eosinophils % (Manual) 1, Basophils % (Manual) 0, Band Neutrophils 4, Platelet Estimate Adequate, Platelet Morphology Normal, Hypochromasia 1+, Anisocytosis 2+, Sodium Level 141, Potassium Level 3.2L, Chloride Level 108H, Carbon Dioxide Level 22, Anion Gap 11, Blood Urea Nitrogen 38H, Creatinine 2.2H, Estimat Glomerular Filtration Rate 21.3, Glucose Level 131H, Uric Acid 7.6H, Calcium Level 7.5L, Phosphorus Level 3.0, Magnesium Level 2.2, Total Bilirubin 0.2, Aspartate Amino Transf (AST/SGOT) 9L, Alanine Aminotransferase (ALT/SGPT) 7L, Alkaline Phosphatase 68, C-Reactive Protein, Quantitative 1.0H, Pro-B-Type Natriuretic Peptide > 17522C, Total Protein 4.9L, Albumin 2.2L, Globulin 2.7, Albumin/Globulin Ratio 0.8L Height (Feet): 5 Height (Inches): 0.00 Weight (Pounds): 145 General Appearance: no apparent distress Cardiovascular: tachycardia Respiratory/Chest: decreased breath sounds Abdomen: distended Dustin Gómez MD Oct 29, 2020 10:21
--- NOTE | 2020-10-29 10:38 | Surgery Progress Note ---
Surgery Progress Note Subjective Procedure Performed Right femoral central venous catheter insertion Additional Comments worsening no n/v ill appearing on bipap Objective Last 24 Hour Vital Signs Date Time Temp Pulse Resp B/P (MAP) Pulse Ox O2 Delivery O2 Flow Rate FiO2 10/29/20 10:27 130 10/29/20 10:00 136 26 111/72 (85) 96 10/29/20 09:30 129 21 140/126 (131) 93 10/29/20 09:00 123 25 142/94 (110) 88 10/29/20 08:47 73/25 10/29/20 08:30 118 25 49/19 (29) 10/29/20 08:00 Bi-pap Bi-pap Bi-pap 10/29/20 08:00 127 10/29/20 08:00 98.0 130 23 120/47 (71) 10/29/20 07:43 24 10/29/20 07:38 122 26 93/75 (81) 97 10/29/20 07:30 122 26 97 10/29/20 07:20 124 23 99 24 10/29/20 07:00 115 21 64/26 (39) 95 10/29/20 06:00 112 24 107/73 (84) 99 10/29/20 05:30 108 21 90/48 (62) 98 10/29/20 05:23 107 19 100 24 10/29/20 05:00 104 24 88/40 (56) 98 10/29/20 04:30 104 24 97/42 (60) 98 10/29/20 04:00 98.4 105 24 81/28 (45) 98 10/29/20 04:00 24 10/29/20 04:00 Bi-pap 2.0 Bi-pap Bi-pap 10/29/20 04:00 116 10/29/20 03:30 104 24 85/30 (48) 99 10/29/20 03:29 96 25 100 24 10/29/20 03:00 101 18 75/42 (53) 100 10/29/20 02:47 77/60 10/29/20 02:30 114 25 70/42 (51) 91 10/29/20 02:00 110 28 81/56 (64) 100 10/29/20 01:00 105 24 93/58 (70) 100 10/29/20 00:00 Bi-pap 2.0 Bi-pap Bi-pap 10/29/20 00:00 107 10/29/20 00:00 24 10/29/20 00:00 98.0 107 25 90/48 (62) 100 107 10/28/20 23:34 97 26 100 24 10/28/20 23:00 102 23 86/55 (65) 100 102 10/28/20 22:00 99 21 97/56 (70) 100 99 10/28/20 21:24 98 25 100 24 10/28/20 21:00 96 19 99/64 (76) 100 98 10/28/20 21:00 94 10/28/20 20:00 Bi-pap 2.0 Bi-pap Bi-pap 10/28/20 20:00 97.8 97 19 106/69 (81) 100 94 10/28/20 20:00 24 10/28/20 19:29 95 17 100 24 10/28/20 19:00 112 22 108/52 (70) 100 10/28/20 18:00 104 22 127/67 (87) 100 10/28/20 17:00 109 20 124/67 (86) 100 10/28/20 16:33 106/59 10/28/20 16:00 103 10/28/20 16:00 97.3 98 19 89/47 (61) 98 10/28/20 16:00 24 10/28/20 16:00 Bi-pap 2.0 Bi-pap Bi-pap 10/28/20 15:26 100 16 99 24 10/28/20 15:00 96 18 95/45 (62) 98 10/28/20 14:00 108 20 98/43 (61) 98 10/28/20 12:59 99 20 109/57 (74) 100 10/28/20 12:00 97.6 91 20 116/78 (91) 100 10/28/20 12:00 91 10/28/20 12:00 24 10/28/20 12:00 Bi-pap 2.0 Bi-pap Bi-pap 10/28/20 11:00 109 21 122/86 (98) 100 10/28/20 10:53 114 17 100 24 I&O Intake and Output 10/28/20 10/29/20 19:00 07:00 Intake Total 1969.331 ml 2162.5 ml Output Total 410 ml 470 ml Balance 1559.331 ml 1692.5 ml Free Water 50 ml 150 ml IV Total 1469.331 ml 1462.5 ml Tube Feeding 450 ml 550 ml Output Urine Total 410 ml 470 ml # Bowel Movements 1 1 Dressing: saturated Cardiovascular: RSR Respiratory: decreased breath sounds Abdomen: soft, non-tender, present bowel sounds Extremities: no tenderness, no cyanosis Laboratory Tests Test 10/28/20 12:14 10/29/20 04:40 Arterial Blood pH 7.209 (7.350-7.450) Arterial Blood Partial Pressure CO2 48.2 mmHg (35.0-45.0) H Arterial Blood Partial Pressure O2 95.7 mmHg (75.0-100.0) Arterial Blood HCO3 18.8 mmol/L (22.0-26.0) L Arterial Blood Oxygen Saturation 96.6 % (95-100) Arterial Blood Base Excess -8.7 (-2-2) L Gallo Test Positive White Blood Count 5.0 K/UL (4.8-10.8) Red Blood Count 2.63 M/UL (4.20-5.40) L Hemoglobin 7.8 G/DL (12.0-16.0) L Hematocrit 25.5 % (37.0-47.0) L Mean Corpuscular Volume 97 FL (80-99) Mean Corpuscular Hemoglobin 29.8 PG (27.0-31.0) Mean Corpuscular Hemoglobin Concent 30.7 G/DL (32.0-36.0) L Red Cell Distribution Width 19.6 % (11.6-14.8) H Platelet Count 177 K/UL (150-450) Mean Platelet Volume 7.7 FL (6.5-10.1) Neutrophils (%) (Auto) % (45.0-75.0) Lymphocytes (%) (Auto) % (20.0-45.0) Monocytes (%) (Auto) % (1.0-10.0) Eosinophils (%) (Auto) % (0.0-3.0) Basophils (%) (Auto) % (0.0-2.0) Differential Total Cells Counted 100 Neutrophils % (Manual) 80 % (45-75) H Lymphocytes % (Manual) 9 % (20-45) L Monocytes % (Manual) 6 % (1-10) Eosinophils % (Manual) 1 % (0-3) Basophils % (Manual) 0 % (0-2) Band Neutrophils 4 % (0-8) Platelet Estimate Adequate Platelet Morphology Normal Hypochromasia 1+ Anisocytosis 2+ Sodium Level 141 MMOL/L (136-145) Potassium Level 3.2 MMOL/L (3.5-5.1) L Chloride Level 108 MMOL/L (98-107) H Carbon Dioxide Level 22 MMOL/L (21-32) Anion Gap 11 mmol/L (5-15) Blood Urea Nitrogen 38 mg/dL (7-18) H Creatinine 2.2 MG/DL (0.55-1.30) H Estimat Glomerular Filtration Rate 21.3 mL/min (>60) Glucose Level 131 MG/DL (74-106) H Uric Acid 7.6 MG/DL (2.6-7.2) H Calcium Level 7.5 MG/DL (8.5-10.1) L Phosphorus Level 3.0 MG/DL (2.5-4.9) Magnesium Level 2.2 MG/DL (1.8-2.4) Total Bilirubin 0.2 MG/DL (0.2-1.0) Aspartate Amino Transf (AST/SGOT) 9 U/L (15-37) L Alanine Aminotransferase (ALT/SGPT) 7 U/L (12-78) L Alkaline Phosphatase 68 U/L (46-116) C-Reactive Protein, Quantitative 1.0 mg/dL (0.00-0.90) H Pro-B-Type Natriuretic Peptide > 15202 pg/mL (0-125) H Total Protein 4.9 G/DL (6.4-8.2) L Albumin 2.2 G/DL (3.4-5.0) L Globulin 2.7 g/dL Albumin/Globulin Ratio 0.8 (1.0-2.7) L Plan Problems: (1) Anemia (2) Acute kidney injury (3) Atrial fibrillation (4) Hyperkalemia (5) Elevated troponin (6) Decubitus skin ulcer Assessment & Plan: Pt presented on admission with Multiple Medical Comorbidities including Covid-19 and Pressure Injuries. Primary Nurse reported Pt has been declining food and medications. Sacral DTPI that is evolving noted to Sacrum(L)6cm x (W)12.5cm.. Scattered Purpuric areas that are indurated noted to R and L cheek. Small wound that is 100% slough (L)0.6cm x (W)0.7cm noted at sacrococcygeal area within base of DTPI. MASD noted to Perineum and skin folds of Medial/posterior aspects of Both upper thighs. Affected areas are erythematous and macerated with scattered satellite lesions. DTPI L Heel (L)3cm x (W)4cm, Base of heel is maroon and fluctuant with small purpuric area (L)0.4cm x (W)0.9cm within base of DTPI. l Foot including toes are mottled and cool to touch. L Heel is boggy. L Heel including toes are Mottled and cool to touch. Tx.Plan: Apply Moisture Barrier Paste to Sacrum. Cover with Optifoam drsg.Change every 3 days and prn. Apply Moisture Barrier Paste to abdominal folds, Perineum and skin folds of both upper thighs. Apply Cavilon Skin Barrier to both heels. Cover each Heel with Optifoam drsg. Change every 7 days and prn. Reposition at least every 2hours or as tolerated. Off-load heels with pillow. (7) Malnutrition Assessment & Plan: She was able to self feed on right hand and took a bite of popsicle and tolerated without s.s of aspiration. After 1st bite, then she refused 2nd bite. After this was done, I offered her a cup of cranberry juice, she took few sips and tolerated without s.s of aspiration. I continued to offer but she refused further PO. A: 1. Functional swallow 2. Failure to thrive 3. abnormal electrolytes in setting of heart failure, NSTEMI, elevated BNP, etc.. P/Rec. 1. Pureed and thin liquid 2.3. Goal of care discussion DAILY ESTIMATED NEEDS: Needs based on Cardiac, pulmonary/ 51kg abw 25-30 kcals/kg 9430-1676 total kcals 1-1.5 g protein/kg 51-76 g total protein 20-25 mL/kg 0392-3331 total fluid mLs NUTRITION DIAGNOSIS: Swallowing difficulty R/T dysphagia, decreased cognitive fxn as evidenced by [employer] recommends pureed moist texture diet at this time. CURRENT DIET:NPO PO DIET RECOMMENDATIONS: Liberalized REGULAR w/ poor PO (texture per [employer]) ADDITIONAL RECOMMENDATIONS: * Calibrated bedscale wt * Monitor PO intake: refusing meds and foods at this time -> rec nonoral feeds w/ continued refusal of PO if part of POC * LOW NA diet w/ PO intake consistently >50% * 4 oz Ensure TID w/ meals (4oz at this time due to poor acceptance, may increase to 8oz w/ good acceptance) (8) Pneumonia due to COVID-19 virus Assessment & Plan: here appears to be increased left pleural fluid and generalized hazy parenchymal opacity, left greater than right. Heart remains enlarged Impression: Increased left pleural effusion Suspect increasing bilateral left greater than right pulmonary edema versus infiltrates (9) Hypothyroidism Jim Orosco Oct 29, 2020 10:38
--- NOTE | 2020-10-29 10:50 | Cardiac Electrophysiology PN ---
Assessment/Plan Assessment/Plan 1. NSTEMI with elevated troponin of more than 0.2. Patient has hx of prior ID as well The level has come down to 0.19, but the levels are flat and likely due to renal failure as the creatinine is 2.1. On aspirin and off Lopressor as hypotensive on Levophed 2. Atrial fibrillation with rapid ventricular response. Off Lopressor as BP in 70s. On Eliquis 2.5 bid Give Dig 0.25 iv and start Dig 0.125 PEG daily 3. Questionable bradycardia. The heart rate has been in the 80s and 90s. It is possible that they could not record the heart beat in view of the patient's atrial fibrillation. 4. Septic shock. BP in 70s. off Lopressor, On Levophed 25 Mcg 5. Renal insufficiency.Cr still 2.1 6. Status post COVID pneumonia, was tested positive more than two weeks ago. Now is negative 7. Dysphagia, S/P PEG 10/23/[address] DW Dr Gómez and Julia Subjective Subjective S/P PEG by Dr. Tobar 10/23/20 BP dropped to 70-s and underwent central line placement. In ICU on Levophed 25 Mcg. Covid negative 10/25 On BIPAP 08/01 In atrial fib with RVR 130s Objective Last 24 Hour Vital Signs Date Time Temp Pulse Resp B/P (MAP) Pulse Ox O2 Delivery O2 Flow Rate FiO2 10/29/20 10:27 130 10/29/20 10:00 136 26 111/72 (85) 96 10/29/20 09:30 129 21 140/126 (131) 93 10/29/20 09:00 123 25 142/94 (110) 88 10/29/20 08:47 73/25 10/29/20 08:30 118 25 49/19 (29) 10/29/20 08:00 Bi-pap Bi-pap Bi-pap 10/29/20 08:00 127 10/29/20 08:00 98.0 130 23 120/47 (71) 10/29/20 07:43 24 10/29/20 07:38 122 26 93/75 (81) 97 10/29/20 07:30 122 26 97 10/29/20 07:20 124 23 99 24 10/29/20 07:00 115 21 64/26 (39) 95 10/29/20 06:00 112 24 107/73 (84) 99 10/29/20 05:30 108 21 90/48 (62) 98 10/29/20 05:23 107 19 100 24 10/29/20 05:00 104 24 88/40 (56) 98 10/29/20 04:30 104 24 97/42 (60) 98 10/29/20 04:00 98.4 105 24 81/28 (45) 98 10/29/20 04:00 24 10/29/20 04:00 Bi-pap 2.0 Bi-pap Bi-pap 10/29/20 04:00 116 10/29/20 03:30 104 24 85/30 (48) 99 10/29/20 03:29 96 25 100 24 10/29/20 03:00 101 18 75/42 (53) 100 10/29/20 02:47 77/60 10/29/20 02:30 114 25 70/42 (51) 91 10/29/20 02:00 110 28 81/56 (64) 100 10/29/20 01:00 105 24 93/58 (70) 100 10/29/20 00:00 Bi-pap 2.0 Bi-pap Bi-pap 10/29/20 00:00 107 10/29/20 00:00 24 10/29/20 00:00 98.0 107 25 90/48 (62) 100 107 10/28/20 23:34 97 26 100 24 10/28/20 23:00 102 23 86/55 (65) 100 102 10/28/20 22:00 99 21 97/56 (70) 100 99 10/28/20 21:24 98 25 100 24 10/28/20 21:00 96 19 99/64 (76) 100 98 10/28/20 21:00 94 10/28/20 20:00 Bi-pap 2.0 Bi-pap Bi-pap 10/28/20 20:00 97.8 97 19 106/69 (81) 100 94 10/28/20 20:00 24 10/28/20 19:29 95 17 100 24 10/28/20 19:00 112 22 108/52 (70) 100 10/28/20 18:00 104 22 127/67 (87) 100 10/28/20 17:00 109 20 124/67 (86) 100 10/28/20 16:33 106/59 10/28/20 16:00 103 10/28/20 16:00 97.3 98 19 89/47 (61) 98 10/28/20 16:00 24 10/28/20 16:00 Bi-pap 2.0 Bi-pap Bi-pap 10/28/20 15:26 100 16 99 24 10/28/20 15:00 96 18 95/45 (62) 98 10/28/20 14:00 108 20 98/43 (61) 98 10/28/20 12:59 99 20 109/57 (74) 100 10/28/20 12:00 97.6 91 20 116/78 (91) 100 10/28/20 12:00 91 10/28/20 12:00 24 10/28/20 12:00 Bi-pap 2.0 Bi-pap Bi-pap 10/28/20 11:00 109 21 122/86 (98) 100 10/28/20 10:53 114 17 100 24 Intake and Output 10/28/20 10/29/20 19:00 07:00 Intake Total 1969.331 ml 2162.5 ml Output Total 410 ml 470 ml Balance 1559.331 ml 1692.5 ml Free Water 50 ml 150 ml IV Total 1469.331 ml 1462.5 ml Tube Feeding 450 ml 550 ml Output Urine Total 410 ml 470 ml # Bowel Movements 1 1 Laboratory Tests Test 10/28/20 12:14 10/29/20 04:40 Arterial Blood pH 7.209 (7.350-7.450) Arterial Blood Partial Pressure CO2 48.2 mmHg (35.0-45.0) H Arterial Blood Partial Pressure O2 95.7 mmHg (75.0-100.0) Arterial Blood HCO3 18.8 mmol/L (22.0-26.0) L Arterial Blood Oxygen Saturation 96.6 % (95-100) Arterial Blood Base Excess -8.7 (-2-2) L Gallo Test Positive White Blood Count 5.0 K/UL (4.8-10.8) Red Blood Count 2.63 M/UL (4.20-5.40) L Hemoglobin 7.8 G/DL (12.0-16.0) L Hematocrit 25.5 % (37.0-47.0) L Mean Corpuscular Volume 97 FL (80-99) Mean Corpuscular Hemoglobin 29.8 PG (27.0-31.0) Mean Corpuscular Hemoglobin Concent 30.7 G/DL (32.0-36.0) L Red Cell Distribution Width 19.6 % (11.6-14.8) H Platelet Count 177 K/UL (150-450) Mean Platelet Volume 7.7 FL (6.5-10.1) Neutrophils (%) (Auto) % (45.0-75.0) Lymphocytes (%) (Auto) % (20.0-45.0) Monocytes (%) (Auto) % (1.0-10.0) Eosinophils (%) (Auto) % (0.0-3.0) Basophils (%) (Auto) % (0.0-2.0) Differential Total Cells Counted 100 Neutrophils % (Manual) 80 % (45-75) H Lymphocytes % (Manual) 9 % (20-45) L Monocytes % (Manual) 6 % (1-10) Eosinophils % (Manual) 1 % (0-3) Basophils % (Manual) 0 % (0-2) Band Neutrophils 4 % (0-8) Platelet Estimate Adequate Platelet Morphology Normal Hypochromasia 1+ Anisocytosis 2+ Sodium Level 141 MMOL/L (136-145) Potassium Level 3.2 MMOL/L (3.5-5.1) L Chloride Level 108 MMOL/L (98-107) H Carbon Dioxide Level 22 MMOL/L (21-32) Anion Gap 11 mmol/L (5-15) Blood Urea Nitrogen 38 mg/dL (7-18) H Creatinine 2.2 MG/DL (0.55-1.30) H Estimat Glomerular Filtration Rate 21.3 mL/min (>60) Glucose Level 131 MG/DL (74-106) H Uric Acid 7.6 MG/DL (2.6-7.2) H Calcium Level 7.5 MG/DL (8.5-10.1) L Phosphorus Level 3.0 MG/DL (2.5-4.9) Magnesium Level 2.2 MG/DL (1.8-2.4) Total Bilirubin 0.2 MG/DL (0.2-1.0) Aspartate Amino Transf (AST/SGOT) 9 U/L (15-37) L Alanine Aminotransferase (ALT/SGPT) 7 U/L (12-78) L Alkaline Phosphatase 68 U/L (46-116) C-Reactive Protein, Quantitative 1.0 mg/dL (0.00-0.90) H Pro-B-Type Natriuretic Peptide > 37030 pg/mL (0-125) H Total Protein 4.9 G/DL (6.4-8.2) L Albumin 2.2 G/DL (3.4-5.0) L Globulin 2.7 g/dL Albumin/Globulin Ratio 0.8 (1.0-2.7) L Objective HEAD AND NECK: No JVD.On BIPAP LUNGS: Decreased breath sounds. CARDIOVASCULAR: Irregular S1 and S2 with no gallop. ABDOMEN: Soft.S/P PEG EXTREMITIES: No pitting edema. Terry Reyes MD Oct 29, 2020 10:50
--- NOTE | 2020-10-29 10:57 | NUR ---
RD ASSESSMENT & RECOMMENDATIONS SEE CARE ACTIVITY FOR COMPLETE ASSESSMENT DAILY ESTIMATED NEEDS: Needs based on Cardiac, pulmonary/ 51kg abw 25-30 kcals/kg 4363-5504 total kcals 1-1.5 g protein/kg 51-76 g total protein 20-25 mL/kg 2703-3647 total fluid mLs NUTRITION DIAGNOSIS: Swallowing difficulty R/T dysphagia, decreased cognitive fxn as evidenced by [employer] recommends pureed moist texture diet w/ poor PO, now s/p PEG placement on 10/23, on GT feeds. CURRENT TF:Vital AF 1.2 @ 60ml/hr x 22 hrs (Pt on Synthroid) ENTERAL NUTRITION RECOMMENDATIONS: With hemodynamic stability: Glucerna 1.5 @ goal of 40ml/hr x 22 hrs to provide 880ml, 1320kcal, 66g prot, 640ml free water FEED WITH HEMODYNAMIC STABILITY -> Rec Glucerna 1.5 at this time for less free fluids (BNP >16435) -> Initiate Glucerna 1.5 @ 10ml/hr x 6hrs -> Advance 10ml q 4-6 hrs as tolerated to goal rate -> HOB over 30 degrees/ H2O flush per MD Without hemodynamic stability and if able to keep HOB >30 degrees, rec trophic feeding of Glucerna 1.5 @ 10-15ml/hr ADDITIONAL RECOMMENDATIONS: * Calibrated bedscale wt * Monitor hemodynamics stability-> NE increasing, @20mcg Rec trophic feeding w/ continued HD instability if HOB >30degrees * Monitor BGs, need for hypoglycemics * Rec to lower or DC IVF: BNP >36568, currently receiving 2400ml IVF/24hrs . .
[2020-10-29] MEDS: Norepinephrine Bitartrate 8 MG in D5W 500ml 550 ML IV SCH ×2 (11:39→19:05)
--- NOTE | 2020-10-29 12:09 | Pulmonology Progress Note ---
Subjective ROS Limited/Unobtainable: Yes Interval Events: hypotensive, now in ICU; more alert; on BiPAP Constitutional: Reports: fever HEENT: Repors: no symptoms Respiratory: Reports: no symptoms Cardiovascular: Reports: no symptoms Gastrointestinal/Abdominal: Reports: other Psychiatric: Reports: other - refusing medications; s/p PEG Allergies: Coded Allergies: No Known Allergies (Unverified , 10/17/20) All Systems: reviewed and negative except above Objective Last 24 Hour Vital Signs Date Time Temp Pulse Resp B/P (MAP) Pulse Ox O2 Delivery O2 Flow Rate FiO2 10/29/20 11:39 120/25 10/29/20 11:00 124 29 123/45 (71) 93 10/29/20 10:27 130 10/29/20 10:00 136 26 111/72 (85) 96 10/29/20 09:30 129 21 140/126 (131) 93 10/29/20 09:00 123 25 142/94 (110) 88 10/29/20 08:47 73/25 10/29/20 08:30 118 25 49/19 (29) 10/29/20 08:00 Bi-pap Bi-pap Bi-pap 10/29/20 08:00 127 10/29/20 08:00 98.0 130 23 120/47 (71) 10/29/20 07:43 24 10/29/20 07:38 122 26 93/75 (81) 97 10/29/20 07:30 122 26 97 10/29/20 07:20 124 23 99 24 10/29/20 07:00 115 21 64/26 (39) 95 10/29/20 06:00 112 24 107/73 (84) 99 10/29/20 05:30 108 21 90/48 (62) 98 10/29/20 05:23 107 19 100 24 10/29/20 05:00 104 24 88/40 (56) 98 10/29/20 04:30 104 24 97/42 (60) 98 10/29/20 04:00 98.4 105 24 81/28 (45) 98 10/29/20 04:00 24 10/29/20 04:00 Bi-pap 2.0 Bi-pap Bi-pap 10/29/20 04:00 116 10/29/20 03:30 104 24 85/30 (48) 99 10/29/20 03:29 96 25 100 24 10/29/20 03:00 101 18 75/42 (53) 100 10/29/20 02:47 77/60 10/29/20 02:30 114 25 70/42 (51) 91 10/29/20 02:00 110 28 81/56 (64) 100 10/29/20 01:00 105 24 93/58 (70) 100 10/29/20 00:00 Bi-pap 2.0 Bi-pap Bi-pap 10/29/20 00:00 107 10/29/20 00:00 24 10/29/20 00:00 98.0 107 25 90/48 (62) 100 107 10/28/20 23:34 97 26 100 24 10/28/20 23:00 102 23 86/55 (65) 100 102 10/28/20 22:00 99 21 97/56 (70) 100 99 10/28/20 21:24 98 25 100 24 10/28/20 21:00 96 19 99/64 (76) 100 98 10/28/20 21:00 94 10/28/20 20:00 Bi-pap 2.0 Bi-pap Bi-pap 10/28/20 20:00 97.8 97 19 106/69 (81) 100 94 10/28/20 20:00 24 10/28/20 19:29 95 17 100 24 10/28/20 19:00 112 22 108/52 (70) 100 10/28/20 18:00 104 22 127/67 (87) 100 10/28/20 17:00 109 20 124/67 (86) 100 10/28/20 16:33 106/59 10/28/20 16:00 103 10/28/20 16:00 97.3 98 19 89/47 (61) 98 10/28/20 16:00 24 10/28/20 16:00 Bi-pap 2.0 Bi-pap Bi-pap 10/28/20 15:26 100 16 99 24 10/28/20 15:00 96 18 95/45 (62) 98 10/28/20 14:00 108 20 98/43 (61) 98 10/28/20 12:59 99 20 109/57 (74) 100 Intake and Output 10/28/20 10/29/20 19:00 07:00 Intake Total 1969.331 ml 2162.5 ml Output Total 410 ml 470 ml Balance 1559.331 ml 1692.5 ml Free Water 50 ml 150 ml IV Total 1469.331 ml 1462.5 ml Tube Feeding 450 ml 550 ml Output Urine Total 410 ml 470 ml # Bowel Movements 1 1 General Appearance: no acute distress HEENT: atraumatic Respiratory: lungs clear Cardiovascular: normal rate, regular rhythm Abdomen: soft, non tender, other - s/p PEG Laboratory Tests 10/28/20 12:14: Arterial Blood pH 7.209*L, Arterial Blood Partial Pressure CO2 48.2H, Arterial Blood Partial Pressure O2 95.7, Arterial Blood HCO3 18.8L, Arterial Blood Oxygen Saturation 96.6, Arterial Blood Base Excess -8.7L, Gallo Test Positive 10/29/20 04:40: White Blood Count 5.0, Red Blood Count 2.63L, Hemoglobin 7.8L, Hematocrit 25.5L, Mean Corpuscular Volume 97, Mean Corpuscular Hemoglobin 29.8, Mean Corpuscular Hemoglobin Concent 30.7L, Red Cell Distribution Width 19.6H, Platelet Count 177, Mean Platelet Volume 7.7, Neutrophils (%) (Auto) , Lymphocytes (%) (Auto) , Monocytes (%) (Auto) , Eosinophils (%) (Auto) , Basophils (%) (Auto) , Differential Total Cells Counted 100, Neutrophils % (Manual) 80H, Lymphocytes % (Manual) 9L, Monocytes % (Manual) 6, Eosinophils % (Manual) 1, Basophils % (Manual) 0, Band Neutrophils 4, Platelet Estimate Adequate, Platelet Morphology Normal, Hypochromasia 1+, Anisocytosis 2+, Sodium Level 141, Potassium Level 3.2L, Chloride Level 108H, Carbon Dioxide Level 22, Anion Gap 11, Blood Urea Nitrogen 38H, Creatinine 2.2H, Estimat Glomerular Filtration Rate 21.3, Glucose Level 131H, Uric Acid 7.6H, Calcium Level 7.5L, Phosphorus Level 3.0, Magnesium Level 2.2, Total Bilirubin 0.2, Aspartate Amino Transf (AST/SGOT) 9L, Alanine Aminotransferase (ALT/SGPT) 7L, Alkaline Phosphatase 68, C-Reactive Protein, Quantitative 1.0H, Pro-B-Type Natriuretic Peptide > 82046J, Total Protein 4.9L, Albumin 2.2L, Globulin 2.7, Albumin/Globulin Ratio 0.8L Current Medications Medications (Trade) Dose Ordered Sig/Yolanda Route PRN Reason Start Time Stop Time Status Last Admin Dose Admin Acetaminophen (Tylenol) 500 mg Q6HR PRN ORAL Mild Pain 1-3 10/17/20 17:45 11/16/20 17:44 Acetaminophen (Tylenol) 500 mg Q6HR PRN ORAL fever >100 10/17/20 18:00 11/16/20 17:59 Acetaminophen (Tylenol) 650 mg Q4H PRN ORAL Pain Scale (6-10) 10/17/20 19:15 11/16/20 19:14 Apixaban (Eliquis) 2.5 mg BID ORAL 10/24/20 18:00 01/22/21 17:59 10/28/20 17:32 Chlorhexidine Gluconate (Eve-Hex 2%) 1 applic DAILY@2000 TOPIC 10/22/20 20:00 01/20/21 19:59 10/28/20 20:34 Dextrose/Sodium Chloride 1,000 ml @ 100 mls/hr Q10H IV 10/25/20 12:00 11/24/20 11:59 10/29/20 06:00 Digoxin (Lanoxin) 0.125 mg DAILY GT 10/30/20 09:00 01/28/21 08:59 Docusate Sodium (Colace) 10 mg EVERY 8 HOURS GT 10/28/20 14:00 11/24/20 17:59 Levothyroxine Sodium (Synthroid) 50 mcg DAILY@0630 ORAL 10/19/20 06:30 11/18/20 06:29 10/29/20 05:52 Norepinephrine Bitartrate 8 mg/ Dextrose 558 ml @ 0 mls/hr Q24H IV 10/29/20 11:00 11/01/20 10:59 10/29/20 11:39 Ondansetron HCl (Zofran) 4 mg Q6H PRN IVP Nausea & Vomiting 10/17/20 21:15 11/16/20 21:14 Pantoprazole (Protonix) 40 mg EVERY 12 HOURS IVP 10/26/20 21:00 11/25/20 20:59 10/29/20 09:15 Piperacillin Sod/ Tazobactam Sod 3.375 gm/Sodium Chloride 110 ml @ 27.5 mls/hr Q12H IVPB 10/26/20 14:00 11/02/20 13:59 10/29/20 01:48 Assessment/Plan Assessment/Plan 1. CHF. 2. CAD/previous non-STEMI. 3. prison resident. 4. Bradycardia. 5. Atrial fibrillation with rvr -Started on Eliquis - now on Digoxin per cardio 6. Renal insufficiency. -Nephro following 7. Troponin leak. - Cardio following 8. COVID-19 pneumonia, without fever or leukocytosis - Now on BiPAP - noted hypercapnia and resp acidosis on ABG; Now BiPAP 20/5 - on Zosyn per ID 9. Hypoxemia 10. 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 UTI, cheryl 12. Dysphagia -s/p PEG (10/23) 13. Hypotension; improved - s/p NS bolus - now off Lopressor - on Levophed The care of this patient was discussed with my supervising physician Time spent for this encounter was approximately 31 minutes Tl Pedro Oct 29, 2020 12:09
--- NOTE | 2020-10-29 13:30 | NUR ---
NURSE NOTES: Low air loss matress applied to prevent further skin breakdown on the sacral or back. she tolerated the procedure with no episodes of desaturation or shortness of breath. remained of bipap with setting of 20/5 with fio2 of 24%. small liquid stool
--- NOTE | 2020-10-29 13:44 | General Progress Note ---
Subjective ROS Limited/Unobtainable: No Allergies: Coded Allergies: No Known Allergies (Unverified , 10/17/20) Objective Last 24 Hour Vital Signs Date Time Temp Pulse Resp B/P (MAP) Pulse Ox O2 Delivery O2 Flow Rate FiO2 10/29/20 13:00 126 24 125/78 (94) 91 10/29/20 12:30 122 27 95 10/29/20 12:01 98.2 122 20 114/44 (67) 93 10/29/20 12:00 24 10/29/20 12:00 20 10/29/20 12:00 122 20 114/44 (67) 93 10/29/20 12:00 Bi-pap Bi-pap Bi-pap 10/29/20 11:39 120/25 10/29/20 11:30 118 26 120/25 (56) 95 10/29/20 11:00 124 29 123/45 (71) 93 10/29/20 11:00 136 30 123/45 (71) 95 10/29/20 10:30 142 28 112/36 (61) 95 10/29/20 10:27 130 10/29/20 10:00 136 26 111/72 (85) 96 10/29/20 09:30 129 21 140/126 (131) 93 10/29/20 09:00 123 25 142/94 (110) 88 10/29/20 08:47 73/25 10/29/20 08:30 118 25 49/19 (29) 10/29/20 08:00 Bi-pap Bi-pap Bi-pap 10/29/20 08:00 127 10/29/20 08:00 98.0 130 23 120/47 (71) 10/29/20 07:43 24 10/29/20 07:38 122 26 93/75 (81) 97 10/29/20 07:30 122 26 97 10/29/20 07:20 124 23 99 24 10/29/20 07:00 115 21 64/26 (39) 95 10/29/20 06:00 112 24 107/73 (84) 99 10/29/20 05:30 108 21 90/48 (62) 98 10/29/20 05:23 107 19 100 24 10/29/20 05:00 104 24 88/40 (56) 98 10/29/20 04:30 104 24 97/42 (60) 98 10/29/20 04:00 98.4 105 24 81/28 (45) 98 10/29/20 04:00 24 10/29/20 04:00 Bi-pap 2.0 Bi-pap Bi-pap 10/29/20 04:00 116 10/29/20 03:30 104 24 85/30 (48) 99 10/29/20 03:29 96 25 100 24 10/29/20 03:00 101 18 75/42 (53) 100 10/29/20 02:47 77/60 10/29/20 02:30 114 25 70/42 (51) 91 10/29/20 02:00 110 28 81/56 (64) 100 10/29/20 01:00 105 24 93/58 (70) 100 10/29/20 00:00 Bi-pap 2.0 Bi-pap Bi-pap 10/29/20 00:00 107 10/29/20 00:00 24 10/29/20 00:00 98.0 107 25 90/48 (62) 100 107 10/28/20 23:34 97 26 100 24 10/28/20 23:00 102 23 86/55 (65) 100 102 10/28/20 22:00 99 21 97/56 (70) 100 99 10/28/20 21:24 98 25 100 24 10/28/20 21:00 96 19 99/64 (76) 100 98 10/28/20 21:00 94 10/28/20 20:00 Bi-pap 2.0 Bi-pap Bi-pap 10/28/20 20:00 97.8 97 19 106/69 (81) 100 94 10/28/20 20:00 24 10/28/20 19:29 95 17 100 24 10/28/20 19:00 112 22 108/52 (70) 100 10/28/20 18:00 104 22 127/67 (87) 100 10/28/20 17:00 109 20 124/67 (86) 100 10/28/20 16:33 106/59 10/28/20 16:00 103 10/28/20 16:00 97.3 98 19 89/47 (61) 98 10/28/20 16:00 24 10/28/20 16:00 Bi-pap 2.0 Bi-pap Bi-pap 10/28/20 15:26 100 16 99 24 10/28/20 15:00 96 18 95/45 (62) 98 10/28/20 14:00 108 20 98/43 (61) 98 Intake and Output 10/28/20 10/29/20 19:00 07:00 Intake Total 1969.331 ml 2162.5 ml Output Total 410 ml 470 ml Balance 1559.331 ml 1692.5 ml Free Water 50 ml 150 ml IV Total 1469.331 ml 1462.5 ml Tube Feeding 450 ml 550 ml Output Urine Total 410 ml 470 ml # Bowel Movements 1 1 Laboratory Tests 10/29/20 04:40: White Blood Count 5.0, Red Blood Count 2.63L, Hemoglobin 7.8L, Hematocrit 25.5L, Mean Corpuscular Volume 97, Mean Corpuscular Hemoglobin 29.8, Mean Corpuscular Hemoglobin Concent 30.7L, Red Cell Distribution Width 19.6H, Platelet Count 177, Mean Platelet Volume 7.7, Neutrophils (%) (Auto) , Lymphocytes (%) (Auto) , Monocytes (%) (Auto) , Eosinophils (%) (Auto) , Basophils (%) (Auto) , Differential Total Cells Counted 100, Neutrophils % (Manual) 80H, Lymphocytes % (Manual) 9L, Monocytes % (Manual) 6, Eosinophils % (Manual) 1, Basophils % (Manual) 0, Band Neutrophils 4, Platelet Estimate Adequate, Platelet Morphology Normal, Hypochromasia 1+, Anisocytosis 2+, Sodium Level 141, Potassium Level 3.2L, Chloride Level 108H, Carbon Dioxide Level 22, Anion Gap 11, Blood Urea Nitrogen 38H, Creatinine 2.2H, Estimat Glomerular Filtration Rate 21.3, Glucose Level 131H, Uric Acid 7.6H, Calcium Level 7.5L, Phosphorus Level 3.0, Magnesium Level 2.2, Total Bilirubin 0.2, Aspartate Amino Transf (AST/SGOT) 9L, Alanine Aminotransferase (ALT/SGPT) 7L, Alkaline Phosphatase 68, C-Reactive Protein, Quantitative 1.0H, Pro-B-Type Natriuretic Peptide > 92075U, Total Protein 4.9L, Albumin 2.2L, Globulin 2.7, Albumin/Globulin Ratio 0.8L Height (Feet): 5 Height (Inches): 0.00 Weight (Pounds): 145 General Appearance: no apparent distress EENT: normal ENT inspection Neck: supple Cardiovascular: normal rate Respiratory/Chest: decreased breath sounds Abdomen: hypoactive bowel sounds Extremities: non-tender Assessment/Plan Problem List: (1) Hypothyroidism ICD Codes: E03.9 - Hypothyroidism, unspecified SNOMED: 73608061 (2) Pneumonia due to COVID-19 virus ICD Codes: U07.1 - COVID-19; J12.82 - Pneumonia due to coronavirus disease 2019 SNOMED: 505628524885351875 (3) Malnutrition ICD Codes: E46 - Unspecified protein-calorie malnutrition SNOMED: 07134182 (4) Decubitus skin ulcer ICD Codes: L89.90 - Pressure ulcer of unspecified site, unspecified stage SNOMED: 857284391 (5) Elevated troponin ICD Codes: R77.8 - Other specified abnormalities of plasma proteins SNOMED: 138751076, 016368367, 997858870 (6) Atrial fibrillation ICD Codes: I48.91 - Unspecified atrial fibrillation SNOMED: 84042622 (7) Anemia ICD Codes: D64.9 - Anemia, unspecified SNOMED: 320632029 Status: progressing Assessment/Plan: GTF on hold on levophed on BIPAP fu cardiology fu pulm labs for Skyler Garcia MD Oct 29, 2020 13:44
--- NOTE | 2020-10-29 15:15 | NUR ---
NURSE NOTES: Blood pressure dropped to 57/26 while on Levophed at 19mcg/min. increased Levophed dose to 21mcg/min. awaiting call back from blood bank in order to administer one unit of PRBC ordered by Dr. Gómez.
--- NOTE | 2020-10-29 16:48 | NUR ---
NURSE NOTES: Blood bank called to inform type and cross will be sent out to the red cross as the patient many have antibodies, will await for results of the type cross to transfused the one unit of PRBC to be transfused. Currently the patient has a saturation of 97% on FIO2 at 24% on bipap with settings of 20/5. Patient heart rate is 105-107 in A-fibb with bp of 97/52 with Levophed infusing at 21mcg/min.. respirations are noted to be at 17.
--- NOTE | 2020-10-29 19:32 | NUR ---
NURSE HAND-OFF REPORT: Latest Vital Signs: Temperature 97.8 , Pulse 110 , B/P 110 /46 , Respiratory Rate 27 , O2 SAT 99 , Simple Mask, O2 Flow Rate 2.0 . Vital Sign Comment: EKG Rhythm: Atrial Fibrillation Rhythm change?: N MD Notified?: - MD Response: Latest Elizabeth Fall Score: 70 Fall Risk: High Risk Safety Measures: Call light Within Reach, Bed Alarm Zone 1, Side Rails Side Rails x3, Bed position Low and Locked. Fall Precautions: Yellow Socks Patient Fall Education Report given to SERGIO Reyez.
[2020-10-29] MEDS: Dyna-Hex 2% Top Sol 2oz TOPIC SCH (21:02)
--- NOTE | 2020-10-29 21:05 | General Progress Note ---
Subjective ROS Limited/Unobtainable: Yes Allergies: Coded Allergies: No Known Allergies (Unverified , 10/17/20) Objective Last 24 Hour Vital Signs Date Time Temp Pulse Resp B/P (MAP) Pulse Ox O2 Delivery O2 Flow Rate FiO2 10/29/20 19:12 110 27 99 24 10/29/20 19:05 117/38 10/29/20 19:00 107 24 117/38 (64) 99 10/29/20 18:30 98 25 110/46 (67) 99 10/29/20 18:00 92 27 110/46 (67) 99 10/29/20 18:00 103 23 95/42 (59) 97 10/29/20 17:30 106 20 103/35 (57) 98 10/29/20 17:00 99 22 96/48 (64) 97 10/29/20 16:00 105 10/29/20 16:00 Bi-pap Bi-pap Bi-pap 10/29/20 16:00 97.8 109 23 111/35 (60) 97 10/29/20 16:00 24 10/29/20 15:30 113 24 106/47 (66) 96 10/29/20 15:20 120 21 97 24 10/29/20 15:10 87/26 10/29/20 15:00 112 23 104/42 (62) 96 10/29/20 14:30 117 29 103/35 (57) 94 10/29/20 14:00 116 25 94/47 (63) 95 10/29/20 14:00 109 29 94/47 (63) 94 10/29/20 13:30 118 25 106/48 (67) 93 10/29/20 13:00 126 24 125/78 (94) 91 10/29/20 12:30 122 27 95 10/29/20 12:01 98.2 122 20 114/44 (67) 93 10/29/20 12:00 24 10/29/20 12:00 122 20 114/44 (67) 93 10/29/20 12:00 Bi-pap Bi-pap Bi-pap 10/29/20 12:00 120 10/29/20 11:39 120/25 10/29/20 11:30 118 26 120/25 (56) 95 10/29/20 11:25 106 20 97 24 10/29/20 11:00 124 29 123/45 (71) 93 10/29/20 11:00 136 30 123/45 (71) 95 10/29/20 10:30 142 28 112/36 (61) 95 10/29/20 10:27 130 10/29/20 10:00 136 26 111/72 (85) 96 10/29/20 09:30 129 21 140/126 (131) 93 10/29/20 09:00 123 25 142/94 (110) 88 10/29/20 08:47 73/25 10/29/20 08:30 118 25 49/19 (29) 10/29/20 08:00 Bi-pap Bi-pap Bi-pap 10/29/20 08:00 127 10/29/20 08:00 98.0 130 23 120/47 (71) 10/29/20 07:43 24 10/29/20 07:38 122 26 93/75 (81) 97 10/29/20 07:30 122 26 97 10/29/20 07:20 124 23 99 24 10/29/20 07:00 115 21 64/26 (39) 95 10/29/20 06:00 112 24 107/73 (84) 99 10/29/20 05:30 108 21 90/48 (62) 98 10/29/20 05:23 107 19 100 24 10/29/20 05:00 104 24 88/40 (56) 98 10/29/20 04:30 104 24 97/42 (60) 98 10/29/20 04:00 98.4 105 24 81/28 (45) 98 10/29/20 04:00 24 10/29/20 04:00 Bi-pap 2.0 Bi-pap Bi-pap 10/29/20 04:00 116 10/29/20 03:30 104 24 85/30 (48) 99 10/29/20 03:29 96 25 100 24 10/29/20 03:00 101 18 75/42 (53) 100 10/29/20 02:47 77/60 10/29/20 02:30 114 25 70/42 (51) 91 10/29/20 02:00 110 28 81/56 (64) 100 10/29/20 01:00 105 24 93/58 (70) 100 10/29/20 00:00 Bi-pap 2.0 Bi-pap Bi-pap 10/29/20 00:00 107 10/29/20 00:00 24 10/29/20 00:00 98.0 107 25 90/48 (62) 100 107 10/28/20 23:34 97 26 100 24 10/28/20 23:00 102 23 86/55 (65) 100 102 10/28/20 22:00 99 21 97/56 (70) 100 99 10/28/20 21:24 98 25 100 24 Intake and Output 10/28/20 10/29/20 19:00 07:00 Intake Total 1969.331 ml 2262.5 ml Output Total 410 ml 470 ml Balance 1559.331 ml 1792.5 ml Free Water 50 ml 150 ml IV Total 1469.331 ml 1562.5 ml Tube Feeding 450 ml 550 ml Output Urine Total 410 ml 470 ml # Bowel Movements 1 1 Laboratory Tests 10/29/20 04:40: White Blood Count 5.0, Red Blood Count 2.63L, Hemoglobin 7.8L, Hematocrit 25.5L, Mean Corpuscular Volume 97, Mean Corpuscular Hemoglobin 29.8, Mean Corpuscular Hemoglobin Concent 30.7L, Red Cell Distribution Width 19.6H, Platelet Count 177, Mean Platelet Volume 7.7, Neutrophils (%) (Auto) , Lymphocytes (%) (Auto) , Monocytes (%) (Auto) , Eosinophils (%) (Auto) , Basophils (%) (Auto) , Differential Total Cells Counted 100, Neutrophils % (Manual) 80H, Lymphocytes % (Manual) 9L, Monocytes % (Manual) 6, Eosinophils % (Manual) 1, Basophils % (Manual) 0, Band Neutrophils 4, Platelet Estimate Adequate, Platelet Morphology Normal, Hypochromasia 1+, Anisocytosis 2+, Sodium Level 141, Potassium Level 3.2L, Chloride Level 108H, Carbon Dioxide Level 22, Anion Gap 11, Blood Urea Nitrogen 38H, Creatinine 2.2H, Estimat Glomerular Filtration Rate 21.3, Glucose Level 131H, Uric Acid 7.6H, Calcium Level 7.5L, Phosphorus Level 3.0, Magnesium Level 2.2, Total Bilirubin 0.2, Aspartate Amino Transf (AST/SGOT) 9L, Alanine Aminotransferase (ALT/SGPT) 7L, Alkaline Phosphatase 68, C-Reactive Protein, Quantitative 1.0H, Pro-B-Type Natriuretic Peptide > 34524O, Total Protein 4.9L, Albumin 2.2L, Globulin 2.7, Albumin/Globulin Ratio 0.8L Height (Feet): 5 Height (Inches): 0.00 Weight (Pounds): 145 Assessment/Plan Problem List: (1) Anemia ICD Codes: D64.9 - Anemia, unspecified SNOMED: 187091849 (2) Acute kidney injury ICD Codes: N17.9 - Acute kidney failure, unspecified SNOMED: 43795303, 6495593 (3) Atrial fibrillation ICD Codes: I48.91 - Unspecified atrial fibrillation SNOMED: 07052969 (4) Elevated troponin ICD Codes: R77.8 - Other specified abnormalities of plasma proteins SNOMED: 141060871, 663926544, 671742853 (5) Malnutrition ICD Codes: E46 - Unspecified protein-calorie malnutrition SNOMED: 37735091 (6) Pneumonia due to COVID-19 virus ICD Codes: U07.1 - COVID-19; J12.82 - Pneumonia due to coronavirus disease 2019 SNOMED: 651628143691096982 (7) Hypothyroidism ICD Codes: E03.9 - Hypothyroidism, unspecified SNOMED: 23912072 Status: progressing Assessment/Plan: anemia of cri low k a fib malnutrtion weak debilitated covid + cri Neri Dumont MD Oct 29, 2020 21:05
[2020-10-30] VITALS (37 sets, daily range): BP systolic 79–126; BP diastolic 17–75
[2020-10-30] MEDS: D5NS 1,000 ML IV SCH ×3 (02:07→21:47)
[2020-10-30] MEDS: Norepinephrine Bitartrate 8 MG in D5W 500ml 550 ML IV SCH ×4 (02:11→20:30)
[2020-10-30] MEDS: Piperacillin/Tazobactam 3.375 GM in NS 110 ML IVPB SCH ×2 (02:17→14:35)
[2020-10-30 05:12] LABS: HEMATOCRIT 25.7 % (37.0-47.0); HEMOGLOBIN 8.1 G/DL (12.0-16.0); MEAN CORPUSCULAR VOLUME 97 FL (80-99); PLATELET COUNT 183 K/UL (150-450); RED BLOOD COUNT 2.64 M/UL (4.20-5.40); RED CELL DISTRIBUTION WIDTH 19.4 % (11.6-14.8); WHITE BLOOD COUNT 5.2 K/UL (4.8-10.8)
[2020-10-30 05:49] LABS: PHOSPHORUS 3.1 MG/DL (2.5-4.9)
[2020-10-30 05:50] LABS: ALBUMIN 2.2 G/DL (3.4-5.0); ALBUMIN/GLOBULIN RATIO 0.8 (1.0-2.7); BILIRUBIN,TOTAL 0.3 MG/DL (0.2-1.0); CREATININE 2.1 MG/DL (0.55-1.30); POTASSIUM 5.4 MMOL/L (3.5-5.1)
[2020-10-30 06:16] LABS: CALCIUM 7.5 MG/DL (8.5-10.1)
[2020-10-30] MEDS: Docusate 100mg/10ml Liq GT SCH ×3 (06:28→21:45)
--- NOTE | 2020-10-30 06:38 | Hematology/Onc Progress Note ---
Assessment/Plan Assessment/Plan Assessment and recs # Anemia r/o gi bleed --> anemia panel has been ordered-->reviewed --> hgb 8.1->9.3->9.7-->9.5-->10.5-->10.2-->9.1->8.6-->7.8-->8.1 --> no hemolysis is noted --> transfuse on prn basis --> 1 unit prbc 10/30 # Thrombocytopenia likely due to reactive process --> plt 138-->149-->176 --> imaging prn --> viral w/u neg # Hypercoag disorder with Atrial fibrillation --> consider anticoag as per cards --> if bleeding, consider hold anticoag # Elevated trop --> per cards # Hyperkalemia --> per renal # Acute kidney injury --> per renal # Resp failure on bipap # Recently COVID-19 positive # Dvt ppx scds --> lovenox sq Appreciate consultation and rosio eugene Subjective Allergies: Coded Allergies: No Known Allergies (Unverified , 10/17/20) All Systems: reviewed and negative except above Subjective 10/19 cbc is pending, did get blood transfusion last night, pending results 10/20 meds noted, no bleeding, labs reviewed, rosio rn, no new changes 10/21 on 4l nc, has been refusing labs, meds noted, no bleeding 10/22 nc, refusing meds labs reviewed, rosio rn 10/23 is potentially for egd this am, no bleeding, cbc is noted 10/25 meds noted, no bleeidng, is on nc, no night sweats, bp bolus pending 10/26 bed bath done, meds noted, no bleeding, cbc reviewed from am 10/27 lethargic, on bipap, levophed, meds reviewed 10/28 icu, lethargic, remains on bipap, pressors 10/29 icu, lethargic, meds noted, on bipap, labs noted 10/30 icu, bipap, to get 1 unit prbc, meds reviewed, labs noted Objective Objective Current Medications Medications (Trade) Dose Ordered Sig/Yolanda Route PRN Reason Start Time Stop Time Status Last Admin Dose Admin Acetaminophen (Tylenol) 500 mg Q6HR PRN ORAL Mild Pain 1-3 10/17/20 17:45 11/16/20 17:44 Acetaminophen (Tylenol) 500 mg Q6HR PRN ORAL fever >100 10/17/20 18:00 11/16/20 17:59 Acetaminophen (Tylenol) 650 mg Q4H PRN ORAL Pain Scale (6-10) 10/17/20 19:15 11/16/20 19:14 Apixaban (Eliquis) 2.5 mg BID ORAL 10/24/20 18:00 01/22/21 17:59 10/28/20 17:32 Chlorhexidine Gluconate (Eve-Hex 2%) 1 applic DAILY@2000 TOPIC 10/22/20 20:00 01/20/21 19:59 10/29/20 21:02 Dextrose/Sodium Chloride 1,000 ml @ 100 mls/hr Q10H IV 10/25/20 12:00 11/24/20 11:59 10/30/20 02:07 Digoxin (Lanoxin) 0.125 mg DAILY GT 10/30/20 09:00 01/28/21 08:59 Docusate Sodium (Colace) 10 mg EVERY 8 HOURS GT 10/28/20 14:00 11/24/20 17:59 10/30/20 06:28 Levothyroxine Sodium (Synthroid) 50 mcg DAILY@0630 ORAL 10/19/20 06:30 11/18/20 06:29 10/30/20 06:29 Norepinephrine Bitartrate 8 mg/ Dextrose 558 ml @ 0 mls/hr Q24H IV 10/29/20 11:00 11/01/20 10:59 10/30/20 02:11 Ondansetron HCl (Zofran) 4 mg Q6H PRN IVP Nausea & Vomiting 10/17/20 21:15 11/16/20 21:14 Pantoprazole (Protonix) 40 mg EVERY 12 HOURS IVP 10/26/20 21:00 11/25/20 20:59 10/29/20 21:02 Piperacillin Sod/ Tazobactam Sod 3.375 gm/Sodium Chloride 110 ml @ 27.5 mls/hr Q12H IVPB 10/26/20 14:00 11/02/20 13:59 10/30/20 02:17 Last 24 Hour Vital Signs Date Time Temp Pulse Resp B/P (MAP) Pulse Ox O2 Delivery O2 Flow Rate FiO2 10/30/20 05:15 107 17 98 24 10/30/20 04:22 108 10/30/20 04:00 Bi-pap Bi-pap Bi-pap 10/30/20 04:00 24 10/30/20 04:00 97 22 122/56 (78) 100 10/30/20 03:30 103 25 126/59 (81) 99 10/30/20 03:18 98 18 100 24 10/30/20 03:00 99 22 109/40 (63) 99 10/30/20 02:30 96 24 109/48 (68) 100 10/30/20 02:11 93/44 10/30/20 02:00 98 24 93/44 (60) 98 10/30/20 01:12 100 22 100 24 10/30/20 01:00 99 23 121/60 (80) 100 10/30/20 00:30 106 26 112/49 (70) 100 10/30/20 00:00 106 25 96/75 (82) 100 10/30/20 00:00 88 10/30/20 00:00 Bi-pap Bi-pap Bi-pap 10/30/20 00:00 111/48 10/30/20 00:00 24 10/29/20 23:30 98 21 123/54 (77) 100 10/29/20 23:13 104 21 100 24 10/29/20 23:00 118/59 10/29/20 23:00 106 25 100/44 (62) 100 10/29/20 22:00 103/87 10/29/20 22:00 102 24 124/43 (70) 99 10/29/20 21:35 99 22 100 24 10/29/20 21:30 106 23 111/36 (61) 99 10/29/20 21:00 132/63 10/29/20 21:00 105 24 124/52 (76) 99 10/29/20 20:30 106 25 114/45 (68) 98 10/29/20 20:00 106 24 109/43 (65) 99 10/29/20 20:00 Bi-pap Bi-pap Bi-pap 10/29/20 20:00 111/53 10/29/20 20:00 24 10/29/20 19:30 114/49 10/29/20 19:12 110 27 99 24 10/29/20 19:05 117/38 10/29/20 19:00 107 24 117/38 (64) 99 10/29/20 18:30 98 25 110/46 (67) 99 10/29/20 18:00 92 27 110/46 (67) 99 10/29/20 18:00 103 23 95/42 (59) 97 10/29/20 17:30 106 20 103/35 (57) 98 10/29/20 17:00 99 22 96/48 (64) 97 10/29/20 16:00 105 10/29/20 16:00 Bi-pap Bi-pap Bi-pap 10/29/20 16:00 97.8 109 23 111/35 (60) 97 10/29/20 16:00 24 10/29/20 15:30 113 24 106/47 (66) 96 10/29/20 15:20 120 21 97 24 10/29/20 15:10 87/26 10/29/20 15:00 112 23 104/42 (62) 96 10/29/20 14:30 117 29 103/35 (57) 94 10/29/20 14:00 116 25 94/47 (63) 95 10/29/20 14:00 109 29 94/47 (63) 94 10/29/20 13:30 118 25 106/48 (67) 93 10/29/20 13:00 126 24 125/78 (94) 91 10/29/20 12:30 122 27 95 10/29/20 12:01 98.2 122 20 114/44 (67) 93 10/29/20 12:00 24 10/29/20 12:00 122 20 114/44 (67) 93 10/29/20 12:00 Bi-pap Bi-pap Bi-pap 10/29/20 12:00 120 10/29/20 11:39 120/25 10/29/20 11:30 118 26 120/25 (56) 95 10/29/20 11:25 106 20 97 24 10/29/20 11:00 124 29 123/45 (71) 93 10/29/20 11:00 136 30 123/45 (71) 95 10/29/20 10:30 142 28 112/36 (61) 95 10/29/20 10:27 130 10/29/20 10:00 136 26 111/72 (85) 96 10/29/20 09:30 129 21 140/126 (131) 93 10/29/20 09:00 123 25 142/94 (110) 88 10/29/20 08:47 73/25 10/29/20 08:30 118 25 49/19 (29) 10/29/20 08:00 Bi-pap Bi-pap Bi-pap 10/29/20 08:00 127 10/29/20 08:00 98.0 130 23 120/47 (71) 10/29/20 07:43 24 10/29/20 07:38 122 26 93/75 (81) 97 10/29/20 07:30 122 26 97 10/29/20 07:20 124 23 99 24 10/29/20 07:00 115 21 64/26 (39) 95 10/29/20 06:00 112 24 107/73 (84) 99 10/29/20 05:30 108 21 90/48 (62) 98 10/29/20 05:23 107 19 100 24 10/29/20 05:00 104 24 88/40 (56) 98 10/29/20 04:30 104 24 97/42 (60) 98 10/29/20 04:00 98.4 105 24 81/28 (45) 98 10/29/20 04:00 24 10/29/20 04:00 Bi-pap 2.0 Bi-pap Bi-pap 10/29/20 04:00 116 10/29/20 03:30 104 24 85/30 (48) 99 10/29/20 03:29 96 25 100 24 10/29/20 03:00 101 18 75/42 (53) 100 10/29/20 02:47 77/60 10/29/20 02:30 114 25 70/42 (51) 91 10/29/20 02:00 110 28 81/56 (64) 100 10/29/20 01:00 105 24 93/58 (70) 100 10/29/20 00:00 Bi-pap 2.0 Bi-pap Bi-pap 10/29/20 00:00 107 10/29/20 00:00 24 10/29/20 00:00 98.0 107 25 90/48 (62) 100 107 10/28/20 23:34 97 26 100 24 10/28/20 23:00 102 23 86/55 (65) 100 102 10/28/20 22:00 99 21 97/56 (70) 100 99 10/28/20 21:24 98 25 100 24 10/28/20 21:00 96 19 99/64 (76) 100 98 10/28/20 21:00 94 10/28/20 20:00 Bi-pap 2.0 Bi-pap Bi-pap 10/28/20 20:00 97.8 97 19 106/69 (81) 100 94 10/28/20 20:00 24 10/28/20 19:29 95 17 100 24 10/28/20 19:00 112 22 108/52 (70) 100 10/28/20 18:00 104 22 127/67 (87) 100 10/28/20 17:00 109 20 124/67 (86) 100 10/28/20 16:33 106/59 10/28/20 16:00 103 10/28/20 16:00 97.3 98 19 89/47 (61) 98 10/28/20 16:00 24 10/28/20 16:00 Bi-pap 2.0 Bi-pap Bi-pap 10/28/20 15:26 100 16 99 24 10/28/20 15:00 96 18 95/45 (62) 98 10/28/20 14:00 108 20 98/43 (61) 98 10/28/20 12:59 99 20 109/57 (74) 100 10/28/20 12:00 97.6 91 20 116/78 (91) 100 10/28/20 12:00 91 10/28/20 12:00 24 10/28/20 12:00 Bi-pap 2.0 Bi-pap Bi-pap 10/28/20 11:00 109 21 122/86 (98) 100 10/28/20 10:53 114 17 100 24 10/28/20 10:00 107 20 106/57 (73) 100 10/28/20 09:47 119/73 10/28/20 09:45 97 17 108/54 (72) 100 10/28/20 09:30 98 18 119/63 (81) 10/28/20 09:15 103 21 104/60 (75) 10/28/20 09:00 105 22 97/53 (68) 10/28/20 08:45 98 16 123/51 (75) 10/28/20 08:30 108 20 117/81 (93) 10/28/20 08:05 24 10/28/20 08:05 24 10/28/20 08:00 30 10/28/20 08:00 Bi-pap 10/28/20 08:00 98.1 99 16 111/65 (80) 10/28/20 07:46 106 10/28/20 07:43 111 14 100 30 10/28/20 07:30 102 17 106/47 (66) 10/28/20 07:00 94 17 94/94 (94) 100 Intake and Output 10/29/20 10/30/20 19:00 07:00 Intake Total 1929.25 ml 1062.50 ml Output Total 595 ml Balance 1334.25 ml 1062.50 ml IV Total 1869.25 ml 972.50 ml Tube Feeding 30 ml 90 ml Other 30 ml Output Urine Total 595 ml # Bowel Movements 2 Labs Test 10/27/20 11:35 10/28/20 04:20 10/28/20 09:34 10/28/20 12:14 Arterial Blood pH 7.185 (7.350-7.450) 7.184 (7.350-7.450) 7.209 (7.350-7.450) Arterial Blood Partial Pressure CO2 55.8 mmHg (35.0-45.0) 59.8 mmHg (35.0-45.0) 48.2 mmHg (35.0-45.0) Arterial Blood Partial Pressure O2 103.8 mmHg (75.0-100.0) 76.9 mmHg (75.0-100.0) 95.7 mmHg (75.0-100.0) Arterial Blood HCO3 20.6 mmol/L (22.0-26.0) 22.0 mmol/L (22.0-26.0) 18.8 mmol/L (22.0-26.0) Arterial Blood Oxygen Saturation 96.4 % (95-100) 94.4 % (95-100) 96.6 % (95-100) Arterial Blood Base Excess -7.5 (-2-2) -6.3 (-2-2) -8.7 (-2-2) Gallo Test Positive Positive Positive White Blood Count 4.7 K/UL (4.8-10.8) Red Blood Count 2.82 M/UL (4.20-5.40) Hemoglobin 8.3 G/DL (12.0-16.0) Hematocrit 27.9 % (37.0-47.0) Mean Corpuscular Volume 99 FL (80-99) Mean Corpuscular Hemoglobin 29.4 PG (27.0-31.0) Mean Corpuscular Hemoglobin Concent 29.7 G/DL (32.0-36.0) Red Cell Distribution Width 19.5 % (11.6-14.8) Platelet Count 198 K/UL (150-450) Mean Platelet Volume 7.7 FL (6.5-10.1) Neutrophils (%) (Auto) % (45.0-75.0) Lymphocytes (%) (Auto) % (20.0-45.0) Monocytes (%) (Auto) % (1.0-10.0) Eosinophils (%) (Auto) % (0.0-3.0) Basophils (%) (Auto) % (0.0-2.0) Differential Total Cells Counted 100 Neutrophils % (Manual) 86 % (45-75) Lymphocytes % (Manual) 7 % (20-45) Monocytes % (Manual) 7 % (1-10) Eosinophils % (Manual) 0 % (0-3) Basophils % (Manual) 0 % (0-2) Band Neutrophils 0 % (0-8) Platelet Estimate Adequate Platelet Morphology Normal Hypochromasia 2+ Anisocytosis 2+ Crenated Cell 1+ Schistocytes 1+ Sodium Level 138 MMOL/L (136-145) Potassium Level 3.4 MMOL/L (3.5-5.1) Chloride Level 105 MMOL/L (98-107) Carbon Dioxide Level 23 MMOL/L (21-32) Anion Gap 10 mmol/L (5-15) Blood Urea Nitrogen 37 mg/dL (7-18) Creatinine 2.2 MG/DL (0.55-1.30) Estimat Glomerular Filtration Rate 21.3 mL/min (>60) Glucose Level 197 MG/DL (74-106) Uric Acid 8.0 MG/DL (2.6-7.2) Calcium Level 7.6 MG/DL (8.5-10.1) Phosphorus Level 3.7 MG/DL (2.5-4.9) Magnesium Level 1.5 MG/DL (1.8-2.4) Total Bilirubin 0.3 MG/DL (0.2-1.0) Aspartate Amino Transf (AST/SGOT) 7 U/L (15-37) Alanine Aminotransferase (ALT/SGPT) 11 U/L (12-78) Alkaline Phosphatase 76 U/L (46-116) C-Reactive Protein, Quantitative 2.0 mg/dL (0.00-0.90) Pro-B-Type Natriuretic Peptide > 41853 pg/mL (0-125) Total Protein 5.2 G/DL (6.4-8.2) Albumin 2.2 G/DL (3.4-5.0) Globulin 3.0 g/dL Albumin/Globulin Ratio 0.7 (1.0-2.7) Test 10/29/20 04:40 10/30/20 04:20 White Blood Count 5.0 K/UL (4.8-10.8) 5.2 K/UL (4.8-10.8) Red Blood Count 2.63 M/UL (4.20-5.40) 2.64 M/UL (4.20-5.40) Hemoglobin 7.8 G/DL (12.0-16.0) 8.1 G/DL (12.0-16.0) Hematocrit 25.5 % (37.0-47.0) 25.7 % (37.0-47.0) Mean Corpuscular Volume 97 FL (80-99) 97 FL (80-99) Mean Corpuscular Hemoglobin 29.8 PG (27.0-31.0) 30.5 PG (27.0-31.0) Mean Corpuscular Hemoglobin Concent 30.7 G/DL (32.0-36.0) 31.3 G/DL (32.0-36.0) Red Cell Distribution Width 19.6 % (11.6-14.8) 19.4 % (11.6-14.8) Platelet Count 177 K/UL (150-450) 183 K/UL (150-450) Mean Platelet Volume 7.7 FL (6.5-10.1) 7.0 FL (6.5-10.1) Neutrophils (%) (Auto) % (45.0-75.0) % (45.0-75.0) Lymphocytes (%) (Auto) % (20.0-45.0) % (20.0-45.0) Monocytes (%) (Auto) % (1.0-10.0) % (1.0-10.0) Eosinophils (%) (Auto) % (0.0-3.0) % (0.0-3.0) Basophils (%) (Auto) % (0.0-2.0) % (0.0-2.0) Differential Total Cells Counted 100 Neutrophils % (Manual) 80 % (45-75) Lymphocytes % (Manual) 9 % (20-45) Monocytes % (Manual) 6 % (1-10) Eosinophils % (Manual) 1 % (0-3) Basophils % (Manual) 0 % (0-2) Band Neutrophils 4 % (0-8) Platelet Estimate Adequate Platelet Morphology Normal Hypochromasia 1+ Anisocytosis 2+ Sodium Level 141 MMOL/L (136-145) 142 MMOL/L (136-145) Potassium Level 3.2 MMOL/L (3.5-5.1) 5.4 MMOL/L (3.5-5.1) Chloride Level 108 MMOL/L (98-107) 108 MMOL/L (98-107) Carbon Dioxide Level 22 MMOL/L (21-32) 19 MMOL/L (21-32) Anion Gap 11 mmol/L (5-15) 15 mmol/L (5-15) Blood Urea Nitrogen 38 mg/dL (7-18) 40 mg/dL (7-18) Creatinine 2.2 MG/DL (0.55-1.30) 2.1 MG/DL (0.55-1.30) Estimat Glomerular Filtration Rate 21.3 mL/min (>60) 22.5 mL/min (>60) Glucose Level 131 MG/DL (74-106) 161 MG/DL (74-106) Uric Acid 7.6 MG/DL (2.6-7.2) 7.7 MG/DL (2.6-7.2) Calcium Level 7.5 MG/DL (8.5-10.1) 7.5 MG/DL (8.5-10.1) Phosphorus Level 3.0 MG/DL (2.5-4.9) 3.1 MG/DL (2.5-4.9) Magnesium Level 2.2 MG/DL (1.8-2.4) 2.5 MG/DL (1.8-2.4) Total Bilirubin 0.2 MG/DL (0.2-1.0) 0.3 MG/DL (0.2-1.0) Aspartate Amino Transf (AST/SGOT) 9 U/L (15-37) 16 U/L (15-37) Alanine Aminotransferase (ALT/SGPT) 7 U/L (12-78) 14 U/L (12-78) Alkaline Phosphatase 68 U/L (46-116) 69 U/L (46-116) C-Reactive Protein, Quantitative 1.0 mg/dL (0.00-0.90) 0.7 mg/dL (0.00-0.90) Pro-B-Type Natriuretic Peptide > 37114 pg/mL (0-125) > 10979 pg/mL (0-125) Total Protein 4.9 G/DL (6.4-8.2) 4.9 G/DL (6.4-8.2) Albumin 2.2 G/DL (3.4-5.0) 2.2 G/DL (3.4-5.0) Globulin 2.7 g/dL 2.7 g/dL Albumin/Globulin Ratio 0.8 (1.0-2.7) 0.8 (1.0-2.7) Digoxin Level 0.9 NG/ML (0.9-2.0) Height (Feet): 5 Height (Inches): 0.00 Weight (Pounds): 145 Objective Physical Exam General: Awake and alert, no acute distress HEENT: NC/AT. EOMI. Cardiovascular: Irregularly irregular rhythm. Resp: Normal work of breathing. + bipap Abdomen: Abdomen is soft, nondistended. Nontender Skin: Intact. No abrasions, laceration or rash over the exposed skin MSK: Normal tone and bulk. Moving all extremities. Neuro: Awake and alert. Mentating appropriately. Hawk Ma MD Oct 30, 2020 06:38
[2020-10-30] MEDS ORDERED: Sodium Polystyrene Sulfonate 15gm Powder GT SCH (07:45)
--- NOTE | 2020-10-30 08:00 | NUR ---
NURSE NOTES: Received patient on BiPap - no S/s resp.distress noted- SaO2 98-100 % . Patient on Levophed at 21 mcg- infusing via TLC @ Right femoral. GT in place -- feeding off when received- resumed at 10 cc/hr - Vital AF 1.2. F/C in place with moderate amt. of urine output.
[2020-10-30] MEDS: Digoxin 0.125mg tab GT SCH (08:59)
[2020-10-30] MEDS: Eliquis 2.5mg tablet ORAL SCH ×2 (09:00→17:45)
[2020-10-30] MEDS: Pantoprazole Inj IVP SCH ×2 (09:00→21:00)
--- NOTE | 2020-10-30 09:30 | NUR ---
NURSE NOTES: seen and examined the patient- updated with partients condition- made aware of Dig. level-0.9
--- NOTE | 2020-10-30 10:15 | NUR ---
NURSE NOTES: TLC @ right femoral dressing soaked- about to change dressing- Catheter almost out ( just the tip is in)- TLC removed pressure dressing applied @ post site. GT site cleansed with NS - dressing applied ( sponge drain)- GT secured
--- NOTE | 2020-10-30 10:24 | Infectious Diseases Prog Note ---
Assessment/Plan Assessment/Plan IMPRESSION: Pneumonia Hypercapnic respiratory failure Recent history of COVID disease, Acute renal failure, Severe aortic stenosis Atrial fibrillation, hypothyroidism, Anemia. Chronic DVT of R leg Hypotension Gastrostomy status RECOMMENDATION: Continue Zosyn Subjective ROS Limited/Unobtainable: Yes Cardiovascular: Reports: other - on Levophed Allergies: Coded Allergies: No Known Allergies (Unverified , 10/17/20) Objective Last 24 Hour Vital Signs Date Time Temp Pulse Resp B/P (MAP) Pulse Ox O2 Delivery O2 Flow Rate FiO2 10/30/20 10:00 105 18 119/65 (83) 100 10/30/20 09:00 99 19 106/62 (77) 100 10/30/20 08:59 96 10/30/20 08:40 106/54 10/30/20 08:30 97.5 93 21 121/60 (80) 97 10/30/20 08:00 85 10/30/20 08:00 24 10/30/20 08:00 Bi-pap 2.0 Bi-pap Bi-pap 10/30/20 07:59 97.5 101 21 110/53 (72) 100 10/30/20 07:30 92 21 100 24 10/30/20 07:00 96 20 99/30 (53) 100 10/30/20 06:30 103 23 122/45 (70) 100 10/30/20 06:00 119/73 10/30/20 06:00 102 23 107/52 (70) 98 10/30/20 05:30 98 22 95/56 (69) 99 10/30/20 05:15 107 17 98 24 10/30/20 05:00 114/98 10/30/20 05:00 97 23 117/37 (63) 100 10/30/20 04:22 108 10/30/20 04:00 Bi-pap Bi-pap Bi-pap 10/30/20 04:00 24 10/30/20 04:00 111/40 10/30/20 04:00 97 22 122/56 (78) 100 10/30/20 03:30 103 25 126/59 (81) 99 10/30/20 03:18 98 18 100 24 10/30/20 03:00 99 22 109/40 (63) 99 10/30/20 03:00 118/41 10/30/20 02:30 96 24 109/48 (68) 100 10/30/20 02:11 93/44 10/30/20 02:00 98 24 93/44 (60) 98 10/30/20 01:12 100 22 100 24 10/30/20 01:00 99 23 121/60 (80) 100 10/30/20 00:30 106 26 112/49 (70) 100 10/30/20 00:00 106 25 96/75 (82) 100 10/30/20 00:00 88 10/30/20 00:00 Bi-pap Bi-pap Bi-pap 10/30/20 00:00 111/48 10/30/20 00:00 24 10/29/20 23:30 98 21 123/54 (77) 100 10/29/20 23:13 104 21 100 24 10/29/20 23:00 118/59 10/29/20 23:00 106 25 100/44 (62) 100 10/29/20 22:00 103/87 10/29/20 22:00 102 24 124/43 (70) 99 10/29/20 21:35 99 22 100 24 10/29/20 21:30 106 23 111/36 (61) 99 10/29/20 21:00 132/63 10/29/20 21:00 105 24 124/52 (76) 99 10/29/20 20:30 106 25 114/45 (68) 98 10/29/20 20:00 106 24 109/43 (65) 99 10/29/20 20:00 Bi-pap Bi-pap Bi-pap 10/29/20 20:00 111/53 10/29/20 20:00 24 10/29/20 19:30 114/49 10/29/20 19:12 110 27 99 24 10/29/20 19:05 117/38 10/29/20 19:00 107 24 117/38 (64) 99 10/29/20 18:30 98 25 110/46 (67) 99 10/29/20 18:00 92 27 110/46 (67) 99 10/29/20 18:00 103 23 95/42 (59) 97 10/29/20 17:30 106 20 103/35 (57) 98 10/29/20 17:00 99 22 96/48 (64) 97 10/29/20 16:00 105 10/29/20 16:00 Bi-pap Bi-pap Bi-pap 10/29/20 16:00 97.8 109 23 111/35 (60) 97 10/29/20 16:00 24 10/29/20 15:30 113 24 106/47 (66) 96 10/29/20 15:20 120 21 97 24 10/29/20 15:10 87/26 10/29/20 15:00 112 23 104/42 (62) 96 10/29/20 14:30 117 29 103/35 (57) 94 10/29/20 14:00 116 25 94/47 (63) 95 10/29/20 14:00 109 29 94/47 (63) 94 10/29/20 13:30 118 25 106/48 (67) 93 10/29/20 13:00 126 24 125/78 (94) 91 10/29/20 12:30 122 27 95 10/29/20 12:01 98.2 122 20 114/44 (67) 93 10/29/20 12:00 24 10/29/20 12:00 122 20 114/44 (67) 93 10/29/20 12:00 Bi-pap Bi-pap Bi-pap 10/29/20 12:00 120 10/29/20 11:39 120/25 10/29/20 11:30 118 26 120/25 (56) 95 10/29/20 11:25 106 20 97 24 10/29/20 11:00 124 29 123/45 (71) 93 10/29/20 11:00 136 30 123/45 (71) 95 10/29/20 10:30 142 28 112/36 (61) 95 10/29/20 10:27 130 Height (Feet): 5 Height (Inches): 0.00 Weight (Pounds): 145 HEENT: mucous membranes moist Respiratory/Chest: decreased breath sounds, other - on BIPAP Cardiovascular: normal rate, irregularly irregular Abdomen: soft, non tender Extremities: other - generalized edema Neurologic/Psychiatric: other - opens eyes Laboratory Tests Test 10/30/20 04:20 White Blood Count 5.2 K/UL (4.8-10.8) Red Blood Count 2.64 M/UL (4.20-5.40) L Hemoglobin 8.1 G/DL (12.0-16.0) L Hematocrit 25.7 % (37.0-47.0) L Mean Corpuscular Volume 97 FL (80-99) Mean Corpuscular Hemoglobin 30.5 PG (27.0-31.0) Mean Corpuscular Hemoglobin Concent 31.3 G/DL (32.0-36.0) L Red Cell Distribution Width 19.4 % (11.6-14.8) H Platelet Count 183 K/UL (150-450) Mean Platelet Volume 7.0 FL (6.5-10.1) Neutrophils (%) (Auto) % (45.0-75.0) Lymphocytes (%) (Auto) % (20.0-45.0) Monocytes (%) (Auto) % (1.0-10.0) Eosinophils (%) (Auto) % (0.0-3.0) Basophils (%) (Auto) % (0.0-2.0) Differential Total Cells Counted 100 Neutrophils % (Manual) 69 % (45-75) Lymphocytes % (Manual) 15 % (20-45) L Monocytes % (Manual) 6 % (1-10) Eosinophils % (Manual) 1 % (0-3) Basophils % (Manual) 0 % (0-2) Band Neutrophils 9 % (0-8) H Platelet Estimate Adequate Platelet Morphology Normal Hypochromasia 1+ Anisocytosis 2+ Sodium Level 142 MMOL/L (136-145) Potassium Level 5.4 MMOL/L (3.5-5.1) #H Chloride Level 108 MMOL/L (98-107) H Carbon Dioxide Level 19 MMOL/L (21-32) L Anion Gap 15 mmol/L (5-15) Blood Urea Nitrogen 40 mg/dL (7-18) H Creatinine 2.1 MG/DL (0.55-1.30) H Estimat Glomerular Filtration Rate 22.5 mL/min (>60) Glucose Level 161 MG/DL (74-106) H Uric Acid 7.7 MG/DL (2.6-7.2) H Calcium Level 7.5 MG/DL (8.5-10.1) L Phosphorus Level 3.1 MG/DL (2.5-4.9) Magnesium Level 2.5 MG/DL (1.8-2.4) H Total Bilirubin 0.3 MG/DL (0.2-1.0) Aspartate Amino Transf (AST/SGOT) 16 U/L (15-37) Alanine Aminotransferase (ALT/SGPT) 14 U/L (12-78) Alkaline Phosphatase 69 U/L (46-116) C-Reactive Protein, Quantitative 0.7 mg/dL (0.00-0.90) Pro-B-Type Natriuretic Peptide > 65004 pg/mL (0-125) H Total Protein 4.9 G/DL (6.4-8.2) L Albumin 2.2 G/DL (3.4-5.0) L Globulin 2.7 g/dL Albumin/Globulin Ratio 0.8 (1.0-2.7) L Digoxin Level 0.9 NG/ML (0.9-2.0) Current Medications Medications (Trade) Dose Ordered Sig/Yolanda Route PRN Reason Start Time Stop Time Status Last Admin Dose Admin Acetaminophen (Tylenol) 500 mg Q6HR PRN ORAL Mild Pain 1-3 10/17/20 17:45 11/16/20 17:44 Acetaminophen (Tylenol) 500 mg Q6HR PRN ORAL fever >100 10/17/20 18:00 11/16/20 17:59 Acetaminophen (Tylenol) 650 mg Q4H PRN ORAL Pain Scale (6-10) 10/17/20 19:15 11/16/20 19:14 Apixaban (Eliquis) 2.5 mg BID ORAL 10/24/20 18:00 01/22/21 17:59 10/30/20 09:00 Chlorhexidine Gluconate (Eve-Hex 2%) 1 applic DAILY@2000 TOPIC 10/22/20 20:00 01/20/21 19:59 10/29/20 21:02 Dextrose/Sodium Chloride 1,000 ml @ 100 mls/hr Q10H IV 10/25/20 12:00 11/24/20 11:59 10/30/20 02:07 Digoxin (Lanoxin) 0.125 mg DAILY GT 10/30/20 09:00 01/28/21 08:59 10/30/20 08:59 Docusate Sodium (Colace) 10 mg EVERY 8 HOURS GT 10/28/20 14:00 11/24/20 17:59 10/30/20 06:28 Levothyroxine Sodium (Synthroid) 50 mcg DAILY@0630 ORAL 10/19/20 06:30 11/18/20 06:29 10/30/20 06:29 Norepinephrine Bitartrate 8 mg/ Dextrose 558 ml @ 0 mls/hr Q24H IV 10/29/20 11:00 11/01/20 10:59 10/30/20 08:40 Ondansetron HCl (Zofran) 4 mg Q6H PRN IVP Nausea & Vomiting 10/17/20 21:15 11/16/20 21:14 Pantoprazole (Protonix) 40 mg EVERY 12 HOURS IVP 10/26/20 21:00 11/25/20 20:59 10/30/20 09:00 Piperacillin Sod/ Tazobactam Sod 3.375 gm/Sodium Chloride 110 ml @ 27.5 mls/hr Q12H IVPB 10/26/20 14:00 11/02/20 13:59 10/30/20 02:17 Luis Alvarado MD Oct 30, 2020 10:24
--- NOTE | 2020-10-30 10:40 | Cardiac Electrophysiology PN ---
Assessment/Plan Assessment/Plan 1. NSTEMI with elevated troponin of more than 0.2. Patient has hx of prior MS as well The level has come down to 0.19, but the levels are flat and likely due to renal failure as the creatinine is 2.1. On aspirin and off Lopressor as hypotensive on Levophed 2. Atrial fibrillation with rapid ventricular response. Off Lopressor as BP in 70s. On Eliquis 2.5 bid Better after Dig 0.25 iv and on Dig 0.125 PEG daily Dig level 0.9 3. Questionable bradycardia. The heart rate has been in the 80s and 90s. It is possible that they could not record the heart beat in view of the patient's atrial fibrillation. 4. Septic shock. BP in 70s. off Lopressor. On Levophed 21 Mcg 5. Renal insufficiency.Cr still 2.1 6. Status post COVID pneumonia, was tested positive more than two weeks ago. Now is negative 7. Dysphagia, S/P PEG 10/23/20 [address]. Full code. DW Dr. Gómez Subjective Subjective S/P PEG by Dr. Tobar 10/23/20 BP dropped to 70-s and underwent central line placement. In ICU on Levophed 21 Mcg. Covid negative 10/25 On BIPAP 08/01. In atrial fib with rate around 100 Objective Last 24 Hour Vital Signs Date Time Temp Pulse Resp B/P (MAP) Pulse Ox O2 Delivery O2 Flow Rate FiO2 10/30/20 10:00 105 18 119/65 (83) 100 10/30/20 09:00 99 19 106/62 (77) 100 10/30/20 08:59 96 10/30/20 08:40 106/54 10/30/20 08:30 97.5 93 21 121/60 (80) 97 10/30/20 08:00 85 10/30/20 08:00 24 10/30/20 08:00 Bi-pap 2.0 Bi-pap Bi-pap 10/30/20 07:59 97.5 101 21 110/53 (72) 100 10/30/20 07:30 92 21 100 24 10/30/20 07:00 96 20 99/30 (53) 100 10/30/20 06:30 103 23 122/45 (70) 100 10/30/20 06:00 119/73 10/30/20 06:00 102 23 107/52 (70) 98 10/30/20 05:30 98 22 95/56 (69) 99 10/30/20 05:15 107 17 98 24 10/30/20 05:00 114/98 10/30/20 05:00 97 23 117/37 (63) 100 10/30/20 04:22 108 10/30/20 04:00 Bi-pap Bi-pap Bi-pap 10/30/20 04:00 24 10/30/20 04:00 111/40 10/30/20 04:00 97 22 122/56 (78) 100 10/30/20 03:30 103 25 126/59 (81) 99 10/30/20 03:18 98 18 100 24 10/30/20 03:00 99 22 109/40 (63) 99 10/30/20 03:00 118/41 10/30/20 02:30 96 24 109/48 (68) 100 10/30/20 02:11 93/44 10/30/20 02:00 98 24 93/44 (60) 98 10/30/20 01:12 100 22 100 24 10/30/20 01:00 99 23 121/60 (80) 100 10/30/20 00:30 106 26 112/49 (70) 100 10/30/20 00:00 106 25 96/75 (82) 100 10/30/20 00:00 88 10/30/20 00:00 Bi-pap Bi-pap Bi-pap 10/30/20 00:00 111/48 10/30/20 00:00 24 10/29/20 23:30 98 21 123/54 (77) 100 10/29/20 23:13 104 21 100 24 10/29/20 23:00 118/59 10/29/20 23:00 106 25 100/44 (62) 100 10/29/20 22:00 103/87 10/29/20 22:00 102 24 124/43 (70) 99 10/29/20 21:35 99 22 100 24 10/29/20 21:30 106 23 111/36 (61) 99 10/29/20 21:00 132/63 10/29/20 21:00 105 24 124/52 (76) 99 10/29/20 20:30 106 25 114/45 (68) 98 10/29/20 20:00 106 24 109/43 (65) 99 10/29/20 20:00 Bi-pap Bi-pap Bi-pap 10/29/20 20:00 111/53 10/29/20 20:00 24 10/29/20 19:30 114/49 10/29/20 19:12 110 27 99 24 10/29/20 19:05 117/38 10/29/20 19:00 107 24 117/38 (64) 99 10/29/20 18:30 98 25 110/46 (67) 99 10/29/20 18:00 92 27 110/46 (67) 99 10/29/20 18:00 103 23 95/42 (59) 97 10/29/20 17:30 106 20 103/35 (57) 98 10/29/20 17:00 99 22 96/48 (64) 97 10/29/20 16:00 105 10/29/20 16:00 Bi-pap Bi-pap Bi-pap 10/29/20 16:00 97.8 109 23 111/35 (60) 97 10/29/20 16:00 24 10/29/20 15:30 113 24 106/47 (66) 96 10/29/20 15:20 120 21 97 24 10/29/20 15:10 87/26 10/29/20 15:00 112 23 104/42 (62) 96 10/29/20 14:30 117 29 103/35 (57) 94 10/29/20 14:00 116 25 94/47 (63) 95 10/29/20 14:00 109 29 94/47 (63) 94 10/29/20 13:30 118 25 106/48 (67) 93 10/29/20 13:00 126 24 125/78 (94) 91 10/29/20 12:30 122 27 95 10/29/20 12:01 98.2 122 20 114/44 (67) 93 10/29/20 12:00 24 10/29/20 12:00 122 20 114/44 (67) 93 10/29/20 12:00 Bi-pap Bi-pap Bi-pap 10/29/20 12:00 120 10/29/20 11:39 120/25 10/29/20 11:30 118 26 120/25 (56) 95 10/29/20 11:25 106 20 97 24 10/29/20 11:00 124 29 123/45 (71) 93 10/29/20 11:00 136 30 123/45 (71) 95 Intake and Output 10/29/20 10/30/20 19:00 07:00 Intake Total 1929.25 ml 1409.135 ml Output Total 595 ml 485 ml Balance 1334.25 ml 924.135 ml IV Total 1869.25 ml 1299.135 ml Tube Feeding 30 ml 110 ml Other 30 ml Output Urine Total 595 ml 485 ml # Bowel Movements 2 Laboratory Tests Test 10/30/20 04:20 White Blood Count 5.2 K/UL (4.8-10.8) Red Blood Count 2.64 M/UL (4.20-5.40) L Hemoglobin 8.1 G/DL (12.0-16.0) L Hematocrit 25.7 % (37.0-47.0) L Mean Corpuscular Volume 97 FL (80-99) Mean Corpuscular Hemoglobin 30.5 PG (27.0-31.0) Mean Corpuscular Hemoglobin Concent 31.3 G/DL (32.0-36.0) L Red Cell Distribution Width 19.4 % (11.6-14.8) H Platelet Count 183 K/UL (150-450) Mean Platelet Volume 7.0 FL (6.5-10.1) Neutrophils (%) (Auto) % (45.0-75.0) Lymphocytes (%) (Auto) % (20.0-45.0) Monocytes (%) (Auto) % (1.0-10.0) Eosinophils (%) (Auto) % (0.0-3.0) Basophils (%) (Auto) % (0.0-2.0) Differential Total Cells Counted 100 Neutrophils % (Manual) 69 % (45-75) Lymphocytes % (Manual) 15 % (20-45) L Monocytes % (Manual) 6 % (1-10) Eosinophils % (Manual) 1 % (0-3) Basophils % (Manual) 0 % (0-2) Band Neutrophils 9 % (0-8) H Platelet Estimate Adequate Platelet Morphology Normal Hypochromasia 1+ Anisocytosis 2+ Sodium Level 142 MMOL/L (136-145) Potassium Level 5.4 MMOL/L (3.5-5.1) #H Chloride Level 108 MMOL/L (98-107) H Carbon Dioxide Level 19 MMOL/L (21-32) L Anion Gap 15 mmol/L (5-15) Blood Urea Nitrogen 40 mg/dL (7-18) H Creatinine 2.1 MG/DL (0.55-1.30) H Estimat Glomerular Filtration Rate 22.5 mL/min (>60) Glucose Level 161 MG/DL (74-106) H Uric Acid 7.7 MG/DL (2.6-7.2) H Calcium Level 7.5 MG/DL (8.5-10.1) L Phosphorus Level 3.1 MG/DL (2.5-4.9) Magnesium Level 2.5 MG/DL (1.8-2.4) H Total Bilirubin 0.3 MG/DL (0.2-1.0) Aspartate Amino Transf (AST/SGOT) 16 U/L (15-37) Alanine Aminotransferase (ALT/SGPT) 14 U/L (12-78) Alkaline Phosphatase 69 U/L (46-116) C-Reactive Protein, Quantitative 0.7 mg/dL (0.00-0.90) Pro-B-Type Natriuretic Peptide > 76560 pg/mL (0-125) H Total Protein 4.9 G/DL (6.4-8.2) L Albumin 2.2 G/DL (3.4-5.0) L Globulin 2.7 g/dL Albumin/Globulin Ratio 0.8 (1.0-2.7) L Digoxin Level 0.9 NG/ML (0.9-2.0) Objective HEAD AND NECK: No JVD. On BIPAP LUNGS: Decreased breath sounds. CARDIOVASCULAR: Irregular S1 and S2 with no gallop. ABDOMEN: Soft.S/P PEG EXTREMITIES: No pitting edema. Terry Reyes MD Oct 30, 2020 10:40
--- NOTE | 2020-10-30 10:40 | NUR ---
NURSE NOTES: Dr. Madden made aware that TLC @ right femoral came out- He came and inserted new TLC @ left subclavian without difficulty- Dr. sanchez gace an order to go ahead and resume levophed drip even before Chest Xray is done
--- NOTE | 2020-10-30 11:13 | Surgery Progress Note ---
Surgery Progress Note Subjective Procedure Performed Right femoral central venous catheter insertion Additional Comments on bipap levophed 21mcg ill appearing Objective Last 24 Hour Vital Signs Date Time Temp Pulse Resp B/P (MAP) Pulse Ox O2 Delivery O2 Flow Rate FiO2 10/30/20 10:00 105 18 119/65 (83) 100 10/30/20 09:00 99 19 106/62 (77) 100 10/30/20 08:59 96 10/30/20 08:40 106/54 10/30/20 08:30 97.5 93 21 121/60 (80) 97 10/30/20 08:00 85 10/30/20 08:00 24 10/30/20 08:00 Bi-pap 2.0 Bi-pap Bi-pap 10/30/20 07:59 97.5 101 21 110/53 (72) 100 10/30/20 07:30 92 21 100 24 10/30/20 07:00 96 20 99/30 (53) 100 10/30/20 06:30 103 23 122/45 (70) 100 10/30/20 06:00 119/73 10/30/20 06:00 102 23 107/52 (70) 98 10/30/20 05:30 98 22 95/56 (69) 99 10/30/20 05:15 107 17 98 24 10/30/20 05:00 114/98 10/30/20 05:00 97 23 117/37 (63) 100 10/30/20 04:22 108 10/30/20 04:00 Bi-pap Bi-pap Bi-pap 10/30/20 04:00 24 10/30/20 04:00 111/40 10/30/20 04:00 97 22 122/56 (78) 100 10/30/20 03:30 103 25 126/59 (81) 99 10/30/20 03:18 98 18 100 24 10/30/20 03:00 99 22 109/40 (63) 99 10/30/20 03:00 118/41 10/30/20 02:30 96 24 109/48 (68) 100 10/30/20 02:11 93/44 10/30/20 02:00 98 24 93/44 (60) 98 10/30/20 01:12 100 22 100 24 10/30/20 01:00 99 23 121/60 (80) 100 10/30/20 00:30 106 26 112/49 (70) 100 10/30/20 00:00 106 25 96/75 (82) 100 10/30/20 00:00 88 10/30/20 00:00 Bi-pap Bi-pap Bi-pap 10/30/20 00:00 111/48 10/30/20 00:00 24 10/29/20 23:30 98 21 123/54 (77) 100 10/29/20 23:13 104 21 100 24 10/29/20 23:00 118/59 10/29/20 23:00 106 25 100/44 (62) 100 10/29/20 22:00 103/87 10/29/20 22:00 102 24 124/43 (70) 99 10/29/20 21:35 99 22 100 24 10/29/20 21:30 106 23 111/36 (61) 99 10/29/20 21:00 132/63 10/29/20 21:00 105 24 124/52 (76) 99 10/29/20 20:30 106 25 114/45 (68) 98 10/29/20 20:00 106 24 109/43 (65) 99 10/29/20 20:00 Bi-pap Bi-pap Bi-pap 10/29/20 20:00 111/53 10/29/20 20:00 24 10/29/20 19:30 114/49 10/29/20 19:12 110 27 99 24 10/29/20 19:05 117/38 10/29/20 19:00 107 24 117/38 (64) 99 10/29/20 18:30 98 25 110/46 (67) 99 10/29/20 18:00 92 27 110/46 (67) 99 10/29/20 18:00 103 23 95/42 (59) 97 10/29/20 17:30 106 20 103/35 (57) 98 10/29/20 17:00 99 22 96/48 (64) 97 10/29/20 16:00 105 10/29/20 16:00 Bi-pap Bi-pap Bi-pap 10/29/20 16:00 97.8 109 23 111/35 (60) 97 10/29/20 16:00 24 10/29/20 15:30 113 24 106/47 (66) 96 10/29/20 15:20 120 21 97 24 10/29/20 15:10 87/26 10/29/20 15:00 112 23 104/42 (62) 96 10/29/20 14:30 117 29 103/35 (57) 94 10/29/20 14:00 116 25 94/47 (63) 95 10/29/20 14:00 109 29 94/47 (63) 94 10/29/20 13:30 118 25 106/48 (67) 93 10/29/20 13:00 126 24 125/78 (94) 91 10/29/20 12:30 122 27 95 10/29/20 12:01 98.2 122 20 114/44 (67) 93 10/29/20 12:00 24 10/29/20 12:00 122 20 114/44 (67) 93 10/29/20 12:00 Bi-pap Bi-pap Bi-pap 10/29/20 12:00 120 10/29/20 11:39 120/25 10/29/20 11:30 118 26 120/25 (56) 95 10/29/20 11:25 106 20 97 24 I&O Intake and Output 10/29/20 10/30/20 19:00 07:00 Intake Total 1929.25 ml 1409.135 ml Output Total 595 ml 485 ml Balance 1334.25 ml 924.135 ml IV Total 1869.25 ml 1299.135 ml Tube Feeding 30 ml 110 ml Other 30 ml Output Urine Total 595 ml 485 ml # Bowel Movements 2 Dressing: saturated Cardiovascular: RSR Respiratory: decreased breath sounds Abdomen: soft, non-tender, present bowel sounds, non-distended Extremities: no tenderness, no cyanosis Laboratory Tests Test 10/30/20 04:20 White Blood Count 5.2 K/UL (4.8-10.8) Red Blood Count 2.64 M/UL (4.20-5.40) L Hemoglobin 8.1 G/DL (12.0-16.0) L Hematocrit 25.7 % (37.0-47.0) L Mean Corpuscular Volume 97 FL (80-99) Mean Corpuscular Hemoglobin 30.5 PG (27.0-31.0) Mean Corpuscular Hemoglobin Concent 31.3 G/DL (32.0-36.0) L Red Cell Distribution Width 19.4 % (11.6-14.8) H Platelet Count 183 K/UL (150-450) Mean Platelet Volume 7.0 FL (6.5-10.1) Neutrophils (%) (Auto) % (45.0-75.0) Lymphocytes (%) (Auto) % (20.0-45.0) Monocytes (%) (Auto) % (1.0-10.0) Eosinophils (%) (Auto) % (0.0-3.0) Basophils (%) (Auto) % (0.0-2.0) Differential Total Cells Counted 100 Neutrophils % (Manual) 69 % (45-75) Lymphocytes % (Manual) 15 % (20-45) L Monocytes % (Manual) 6 % (1-10) Eosinophils % (Manual) 1 % (0-3) Basophils % (Manual) 0 % (0-2) Band Neutrophils 9 % (0-8) H Platelet Estimate Adequate Platelet Morphology Normal Hypochromasia 1+ Anisocytosis 2+ Sodium Level 142 MMOL/L (136-145) Potassium Level 5.4 MMOL/L (3.5-5.1) #H Chloride Level 108 MMOL/L (98-107) H Carbon Dioxide Level 19 MMOL/L (21-32) L Anion Gap 15 mmol/L (5-15) Blood Urea Nitrogen 40 mg/dL (7-18) H Creatinine 2.1 MG/DL (0.55-1.30) H Estimat Glomerular Filtration Rate 22.5 mL/min (>60) Glucose Level 161 MG/DL (74-106) H Uric Acid 7.7 MG/DL (2.6-7.2) H Calcium Level 7.5 MG/DL (8.5-10.1) L Phosphorus Level 3.1 MG/DL (2.5-4.9) Magnesium Level 2.5 MG/DL (1.8-2.4) H Total Bilirubin 0.3 MG/DL (0.2-1.0) Aspartate Amino Transf (AST/SGOT) 16 U/L (15-37) Alanine Aminotransferase (ALT/SGPT) 14 U/L (12-78) Alkaline Phosphatase 69 U/L (46-116) C-Reactive Protein, Quantitative 0.7 mg/dL (0.00-0.90) Pro-B-Type Natriuretic Peptide > 20236 pg/mL (0-125) H Total Protein 4.9 G/DL (6.4-8.2) L Albumin 2.2 G/DL (3.4-5.0) L Globulin 2.7 g/dL Albumin/Globulin Ratio 0.8 (1.0-2.7) L Digoxin Level 0.9 NG/ML (0.9-2.0) Plan Problems: (1) Anemia (2) Acute kidney injury (3) Atrial fibrillation (4) Hyperkalemia (5) Elevated troponin (6) Decubitus skin ulcer Assessment & Plan: Pt presented on admission with Multiple Medical Comorbidities including Covid-19 and Pressure Injuries. Primary Nurse reported Pt has been declining food and medications. Sacral DTPI that is evolving noted to Sacrum(L)6cm x (W)12.5cm.. Scattered Purpuric areas that are indurated noted to R and L cheek. Small wound that is 100% slough (L)0.6cm x (W)0.7cm noted at sacrococcygeal area within base of DTPI. MASD noted to Perineum and skin folds of Medial/posterior aspects of Both upper thighs. Affected areas are erythematous and macerated with scattered satellite lesions. DTPI L Heel (L)3cm x (W)4cm, Base of heel is maroon and fluctuant with small purpuric area (L)0.4cm x (W)0.9cm within base of DTPI. l Foot including toes are mottled and cool to touch. L Heel is boggy. L Heel including toes are Mottled and cool to touch. Tx.Plan: Apply Moisture Barrier Paste to Sacrum. Cover with Optifoam drsg.Change every 3 days and prn. Apply Moisture Barrier Paste to abdominal folds, Perineum and skin folds of both upper thighs. Apply Cavilon Skin Barrier to both heels. Cover each Heel with Optifoam drsg. Change every 7 days and prn. Reposition at least every 2hours or as tolerated. Off-load heels with pillow. (7) Malnutrition Assessment & Plan: She was able to self feed on right hand and took a bite of popsicle and tolerated without s.s of aspiration. After 1st bite, then she refused 2nd bite. After this was done, I offered her a cup of cranberry juice, she took few sips and tolerated without s.s of aspiration. I continued to offer but she refused further PO. A: 1. Functional swallow 2. Failure to thrive 3. abnormal electrolytes in setting of heart failure, NSTEMI, elevated BNP, etc.. P/Rec. 1. Pureed and thin liquid 2.3. Goal of care discussion DAILY ESTIMATED NEEDS: Needs based on Cardiac, pulmonary/ 51kg abw 25-30 kcals/kg 6655-9662 total kcals 1-1.5 g protein/kg 51-76 g total protein 20-25 mL/kg 5811-3906 total fluid mLs NUTRITION DIAGNOSIS: Swallowing difficulty R/T dysphagia, decreased cognitive fxn as evidenced by TRAFFIC SUPERVISOR recommends pureed moist texture diet at this time. CURRENT DIET:NPO PO DIET RECOMMENDATIONS: Liberalized REGULAR w/ poor PO (texture per TRAFFIC SUPERVISOR) ADDITIONAL RECOMMENDATIONS: * Calibrated bedscale wt * Monitor PO intake: refusing meds and foods at this time -> rec nonoral feeds w/ continued refusal of PO if part of POC * LOW NA diet w/ PO intake consistently >50% * 4 oz Ensure TID w/ meals (4oz at this time due to poor acceptance, may increase to 8oz w/ good acceptance) (8) Pneumonia due to COVID-19 virus Assessment & Plan: here appears to be increased left pleural fluid and generalized hazy parenchymal opacity, left greater than right. Heart remains enlarged Impression: Increased left pleural effusion Suspect increasing bilateral left greater than right pulmonary edema versus infiltrates (9) Hypothyroidism Jim Orosco Oct 30, 2020 11:13
--- NOTE | 2020-10-30 12:00 | NUR ---
NURSE NOTES: Levophed resumed at 21 mcg/mi - BP 107/42
--- NOTE | 2020-10-30 12:04 | Operative Note - PDOC ---
Operative Note Operative Note Date of Operation/Procedure: Oct 30, 2020 Pre-op Diagnosis: hypotension Procedure: left subclavian central venous catheter insertion Post-op Diagnosis: same as pre-op Surgeon: Jim Orosco MD Anesthesia: local Specimen: none Complications: none Condition: unstable Estimated Blood Loss: minimal Drains: none Implant(s) used?: No Indications for Procedure 83F femoral central venous catheter was dislodged patient on pressors emergency central venous access indicated and recommended. Description of Procedure patient placed in Trendelenburg position. left chest wall prepped and draped ins tandard surgical fashion. local infiltrated 1% lidocaine. finder needle u sed and left subclavian vein cannulated with good venous flow noted. guidewire placed and needle removed. small skin incision made and dilator used. triple lumen catheter placed over guidewire without complication. guidewire discarded and lined sutured inp laced. dressings applied. patient tolerated well. cxr ordered Jim Orosco Oct 30, 2020 12:04
--- NOTE | 2020-10-30 12:18 | NUR ---
NURSE NOTES: Chest X-ray done- Dr. Orosco saw the film - with order to OK to use TLC
[2020-10-30] MEDS: Sodium Polystyrene Sulfonate 15gm Powder ORAL SCH ×2 (12:30→14:38)
--- NOTE | 2020-10-30 14:00 | NUR ---
NURSE NOTES: Levophed drip at 24 mcg/min- repositioned for comfort. PM care rendered
--- NOTE | 2020-10-30 14:12 | Nephrology Progress Note ---
Assessment/Plan Problem List: (1) Acute kidney injury (2) Anemia (3) Hyperkalemia (4) Elevated troponin (5) Pneumonia due to COVID-19 virus (6) Hypothyroidism Assessment Plan October 30: Labs reviewed. Potassium elevated. Kayexalate ordered. Continue to monitor hemoglobin hematocrit and renal parameters. Serum creatinine 2.1. Remains on BiPAP. October 29: Seen in ICU. Discussed with RN Rock. Hemoglobin low. Transfuse 1 unit of packed RBCs. Potassium supplements IV given. Midodrine discontinued. Serum creatinine 2.2 stable. Patient remains on BiPAP. Continue per consultants. Continue to monitor hemoglobin hematocrit electrolytes and renal parameters. October 28: Seen in ICU. Remains on BiPAP. Low potassium and low magnesium addressed. Serum creatinine plateaued at 2.2. Continue per current treatment plan. October 27: Patient in ICU. On BiPAP. Serum creatinine rising. Blood pressure more stable. Will give 100 mg Lasix IV push with the hope of reversing oliguria. Medication list reviewed. Continue to monitor renal parameters. October 26: Seen in ICU. On pressors for low blood pressure. Serum creatinine 2.1. Albumin bolus given. Stress dose of steroids initiated. Continue to monitor renal parameters. Continue per consultants. October 25: Patient seen and examined. Trendelenburg. Blood pressure low. Tachycardic. Discussed with RN. Patient to be transferred to ICU. Discussed with ICU charge nurse and hospital charge nurse. Meanwhile patient started on Albumin bolus and 100 cc an hour D5 normal saline. Patient to be started on pressors while in ICU. Patient full code. October 24: No CHEM panel drawn today.. Renal parameters stable. Patient had a GT placed yesterday. Will check labs tomorrow. Medication list reviewed. October 23: Labs reviewed. Renal parameters unchanged. Creatinine 1.9. Continue current management. Medication list reviewed. October 22: Labs reviewed. Serum creatinine lower at 1.8. Patient started on clear liquid. Patient refuses p.o. medications and food at times. Continue per consultants. October 21: Labs reviewed. Serum creatinine unchanged. Continue per consultants. Continue to monitor renal parameters. October 20: Today's labs reviewed. Serum creatinine unchanged. RN reports patient not taking any p.o. meds. Continue per consultants. Serum creatinine appears to be baseline. October 19: Today's labs still not done yet. RN informed. Albumin bolus given again. Continue to monitor electrolytes and renal parameters. Per orders October 18: Patient hypotensive. Due for blood transfusion. Will give albumin bolus. Continue to monitor renal parameters and electrolytes. Labs and medication list reviewed Subjective ROS Limited/Unobtainable: Yes Objective Objective Last 24 Hour Vital Signs Date Time Temp Pulse Resp B/P (MAP) Pulse Ox O2 Delivery O2 Flow Rate FiO2 10/30/20 14:00 97.3 101 17 100/39 (59) 100 10/30/20 13:00 97.3 92 18 92/31 (51) 100 10/30/20 13:00 92/31 10/30/20 12:06 88 29 90 30 10/30/20 12:00 97 10/30/20 12:00 30 10/30/20 12:00 97.3 97 20 107/42 (63) 97 10/30/20 12:00 78/43 10/30/20 12:00 Bi-pap 2.0 Bi-pap Bi-pap 10/30/20 11:00 87 22 122/33 (62) 99 10/30/20 11:00 122/33 10/30/20 10:00 105 18 119/65 (83) 100 10/30/20 10:00 105/94 10/30/20 09:00 106/62 10/30/20 09:00 99 19 106/62 (77) 100 10/30/20 08:59 96 10/30/20 08:40 106/54 10/30/20 08:30 97.5 93 21 121/60 (80) 97 10/30/20 08:00 85 10/30/20 08:00 120/54 10/30/20 08:00 24 10/30/20 08:00 Bi-pap 2.0 Bi-pap Bi-pap 10/30/20 07:59 97.5 101 21 110/53 (72) 100 10/30/20 07:30 92 21 100 24 10/30/20 07:00 96 20 99/30 (53) 100 10/30/20 07:00 108/45 10/30/20 06:30 103 23 122/45 (70) 100 10/30/20 06:00 119/73 10/30/20 06:00 102 23 107/52 (70) 98 10/30/20 05:30 98 22 95/56 (69) 99 10/30/20 05:15 107 17 98 24 10/30/20 05:00 114/98 10/30/20 05:00 97 23 117/37 (63) 100 10/30/20 04:22 108 10/30/20 04:00 Bi-pap Bi-pap Bi-pap 10/30/20 04:00 24 10/30/20 04:00 111/40 10/30/20 04:00 97 22 122/56 (78) 100 10/30/20 03:30 103 25 126/59 (81) 99 10/30/20 03:18 98 18 100 24 10/30/20 03:00 99 22 109/40 (63) 99 10/30/20 03:00 118/41 10/30/20 02:30 96 24 109/48 (68) 100 10/30/20 02:11 93/44 10/30/20 02:00 98 24 93/44 (60) 98 10/30/20 01:12 100 22 100 24 10/30/20 01:00 99 23 121/60 (80) 100 10/30/20 00:30 106 26 112/49 (70) 100 10/30/20 00:00 106 25 96/75 (82) 100 10/30/20 00:00 88 10/30/20 00:00 Bi-pap Bi-pap Bi-pap 10/30/20 00:00 111/48 10/30/20 00:00 24 10/29/20 23:30 98 21 123/54 (77) 100 10/29/20 23:13 104 21 100 24 10/29/20 23:00 118/59 10/29/20 23:00 106 25 100/44 (62) 100 10/29/20 22:00 103/87 10/29/20 22:00 102 24 124/43 (70) 99 10/29/20 21:35 99 22 100 24 10/29/20 21:30 106 23 111/36 (61) 99 10/29/20 21:00 132/63 10/29/20 21:00 105 24 124/52 (76) 99 10/29/20 20:30 106 25 114/45 (68) 98 10/29/20 20:00 106 24 109/43 (65) 99 10/29/20 20:00 Bi-pap Bi-pap Bi-pap 10/29/20 20:00 111/53 10/29/20 20:00 24 10/29/20 19:30 114/49 10/29/20 19:12 110 27 99 24 10/29/20 19:05 117/38 10/29/20 19:00 107 24 117/38 (64) 99 10/29/20 18:30 98 25 110/46 (67) 99 10/29/20 18:00 92 27 110/46 (67) 99 10/29/20 18:00 103 23 95/42 (59) 97 10/29/20 17:30 106 20 103/35 (57) 98 10/29/20 17:00 99 22 96/48 (64) 97 10/29/20 16:00 105 10/29/20 16:00 Bi-pap Bi-pap Bi-pap 10/29/20 16:00 97.8 109 23 111/35 (60) 97 10/29/20 16:00 24 10/29/20 15:30 113 24 106/47 (66) 96 10/29/20 15:20 120 21 97 24 10/29/20 15:10 87/26 10/29/20 15:00 112 23 104/42 (62) 96 10/29/20 14:30 117 29 103/35 (57) 94 Intake and Output 10/29/20 10/30/20 19:00 07:00 Intake Total 1929.25 ml 1497.020 ml Output Total 595 ml 485 ml Balance 1334.25 ml 1012.020 ml IV Total 1869.25 ml 1387.020 ml Tube Feeding 30 ml 110 ml Other 30 ml Output Urine Total 595 ml 485 ml # Bowel Movements 2 Current Medications Medications (Trade) Dose Ordered Sig/Yolanda Route PRN Reason Start Time Stop Time Status Last Admin Dose Admin Acetaminophen (Tylenol) 500 mg Q6HR PRN ORAL Mild Pain 1-3 10/17/20 17:45 11/16/20 17:44 Acetaminophen (Tylenol) 500 mg Q6HR PRN ORAL fever >100 10/17/20 18:00 11/16/20 17:59 Acetaminophen (Tylenol) 650 mg Q4H PRN ORAL Pain Scale (6-10) 10/17/20 19:15 11/16/20 19:14 Apixaban (Eliquis) 2.5 mg BID ORAL 10/24/20 18:00 01/22/21 17:59 10/30/20 09:00 Chlorhexidine Gluconate (Eve-Hex 2%) 1 applic DAILY@2000 TOPIC 10/22/20 20:00 01/20/21 19:59 10/29/20 21:02 Dextrose/Sodium Chloride 1,000 ml @ 100 mls/hr Q10H IV 10/25/20 12:00 11/24/20 11:59 10/30/20 13:52 Digoxin (Lanoxin) 0.125 mg DAILY GT 10/30/20 09:00 01/28/21 08:59 10/30/20 08:59 Docusate Sodium (Colace) 10 mg EVERY 8 HOURS GT 10/28/20 14:00 11/24/20 17:59 10/30/20 06:28 Levothyroxine Sodium (Synthroid) 50 mcg DAILY@0630 ORAL 10/19/20 06:30 11/18/20 06:29 10/30/20 06:29 Norepinephrine Bitartrate 8 mg/ Dextrose 558 ml @ 0 mls/hr Q24H IV 10/29/20 11:00 11/01/20 10:59 10/30/20 08:40 Ondansetron HCl (Zofran) 4 mg Q6H PRN IVP Nausea & Vomiting 10/17/20 21:15 11/16/20 21:14 Pantoprazole (Protonix) 40 mg EVERY 12 HOURS IVP 10/26/20 21:00 11/25/20 20:59 10/30/20 09:00 Piperacillin Sod/ Tazobactam Sod 3.375 gm/Sodium Chloride 110 ml @ 27.5 mls/hr Q12H IVPB 10/26/20 14:00 11/02/20 13:59 10/30/20 02:17 Laboratory Tests 10/30/20 04:20: White Blood Count 5.2, Red Blood Count 2.64L, Hemoglobin 8.1L, Hematocrit 25.7L, Mean Corpuscular Volume 97, Mean Corpuscular Hemoglobin 30.5, Mean Corpuscular Hemoglobin Concent 31.3L, Red Cell Distribution Width 19.4H, Platelet Count 183, Mean Platelet Volume 7.0, Neutrophils (%) (Auto) , Lymphocytes (%) (Auto) , Monocytes (%) (Auto) , Eosinophils (%) (Auto) , Basophils (%) (Auto) , Differential Total Cells Counted 100, Neutrophils % (Manual) 69, Lymphocytes % (Manual) 15L, Monocytes % (Manual) 6, Eosinophils % (Manual) 1, Basophils % (Manual) 0, Band Neutrophils 9H, Platelet Estimate Adequate, Platelet Morphology Normal, Hypochromasia 1+, Anisocytosis 2+, Sodium Level 142, Potassium Level 5.4#H, Chloride Level 108H, Carbon Dioxide Level 19L, Anion Gap 15, Blood Urea Nitrogen 40H, Creatinine 2.1H, Estimat Glomerular Filtration Rate 22.5, Glucose Level 161H, Uric Acid 7.7H, Calcium Level 7.5L, Phosphorus Level 3.1, Magnesium Level 2.5H, Total Bilirubin 0.3, Aspartate Amino Transf (AST/SGOT) 16, Alanine Aminotransferase (ALT/SGPT) 14, Alkaline Phosphatase 69, C-Reactive Protein, Quantitative 0.7, Pro-B-Type Natriuretic Peptide > 25370S, Total Protein 4.9L, Albumin 2.2L, Globulin 2.7, Albumin/Globulin Ratio 0.8L, Digoxin Level 0.9 Height (Feet): 5 Height (Inches): 0.00 Weight (Pounds): 145 General Appearance: no apparent distress EENT: other - On BiPAP Cardiovascular: tachycardia Respiratory/Chest: decreased breath sounds Abdomen: distended Dustin Gómez MD Oct 30, 2020 14:11
--- NOTE | 2020-10-30 14:15 | General Progress Note ---
Subjective ROS Limited/Unobtainable: No Allergies: Coded Allergies: No Known Allergies (Unverified , 10/17/20) Objective Last 24 Hour Vital Signs Date Time Temp Pulse Resp B/P (MAP) Pulse Ox O2 Delivery O2 Flow Rate FiO2 10/30/20 14:00 97.3 101 17 100/39 (59) 100 10/30/20 13:00 97.3 92 18 92/31 (51) 100 10/30/20 13:00 92/31 10/30/20 12:06 88 29 90 30 10/30/20 12:00 97 10/30/20 12:00 30 10/30/20 12:00 97.3 97 20 107/42 (63) 97 10/30/20 12:00 78/43 10/30/20 12:00 Bi-pap 2.0 Bi-pap Bi-pap 10/30/20 11:00 87 22 122/33 (62) 99 10/30/20 11:00 122/33 10/30/20 10:00 105 18 119/65 (83) 100 10/30/20 10:00 105/94 10/30/20 09:00 106/62 10/30/20 09:00 99 19 106/62 (77) 100 10/30/20 08:59 96 10/30/20 08:40 106/54 10/30/20 08:30 97.5 93 21 121/60 (80) 97 10/30/20 08:00 85 10/30/20 08:00 120/54 10/30/20 08:00 24 10/30/20 08:00 Bi-pap 2.0 Bi-pap Bi-pap 10/30/20 07:59 97.5 101 21 110/53 (72) 100 10/30/20 07:30 92 21 100 24 10/30/20 07:00 96 20 99/30 (53) 100 10/30/20 07:00 108/45 10/30/20 06:30 103 23 122/45 (70) 100 10/30/20 06:00 119/73 10/30/20 06:00 102 23 107/52 (70) 98 10/30/20 05:30 98 22 95/56 (69) 99 10/30/20 05:15 107 17 98 24 10/30/20 05:00 114/98 10/30/20 05:00 97 23 117/37 (63) 100 10/30/20 04:22 108 10/30/20 04:00 Bi-pap Bi-pap Bi-pap 10/30/20 04:00 24 10/30/20 04:00 111/40 10/30/20 04:00 97 22 122/56 (78) 100 10/30/20 03:30 103 25 126/59 (81) 99 10/30/20 03:18 98 18 100 24 10/30/20 03:00 99 22 109/40 (63) 99 10/30/20 03:00 118/41 10/30/20 02:30 96 24 109/48 (68) 100 10/30/20 02:11 93/44 10/30/20 02:00 98 24 93/44 (60) 98 10/30/20 01:12 100 22 100 24 10/30/20 01:00 99 23 121/60 (80) 100 10/30/20 00:30 106 26 112/49 (70) 100 10/30/20 00:00 106 25 96/75 (82) 100 10/30/20 00:00 88 10/30/20 00:00 Bi-pap Bi-pap Bi-pap 10/30/20 00:00 111/48 10/30/20 00:00 24 10/29/20 23:30 98 21 123/54 (77) 100 10/29/20 23:13 104 21 100 24 10/29/20 23:00 118/59 10/29/20 23:00 106 25 100/44 (62) 100 10/29/20 22:00 103/87 10/29/20 22:00 102 24 124/43 (70) 99 10/29/20 21:35 99 22 100 24 10/29/20 21:30 106 23 111/36 (61) 99 10/29/20 21:00 132/63 10/29/20 21:00 105 24 124/52 (76) 99 10/29/20 20:30 106 25 114/45 (68) 98 10/29/20 20:00 106 24 109/43 (65) 99 10/29/20 20:00 Bi-pap Bi-pap Bi-pap 10/29/20 20:00 111/53 10/29/20 20:00 24 10/29/20 19:30 114/49 10/29/20 19:12 110 27 99 24 10/29/20 19:05 117/38 10/29/20 19:00 107 24 117/38 (64) 99 10/29/20 18:30 98 25 110/46 (67) 99 10/29/20 18:00 92 27 110/46 (67) 99 10/29/20 18:00 103 23 95/42 (59) 97 10/29/20 17:30 106 20 103/35 (57) 98 10/29/20 17:00 99 22 96/48 (64) 97 10/29/20 16:00 105 10/29/20 16:00 Bi-pap Bi-pap Bi-pap 10/29/20 16:00 97.8 109 23 111/35 (60) 97 10/29/20 16:00 24 10/29/20 15:30 113 24 106/47 (66) 96 10/29/20 15:20 120 21 97 24 10/29/20 15:10 87/26 10/29/20 15:00 112 23 104/42 (62) 96 10/29/20 14:30 117 29 103/35 (57) 94 Intake and Output 10/29/20 10/30/20 19:00 07:00 Intake Total 1929.25 ml 1497.020 ml Output Total 595 ml 485 ml Balance 1334.25 ml 1012.020 ml IV Total 1869.25 ml 1387.020 ml Tube Feeding 30 ml 110 ml Other 30 ml Output Urine Total 595 ml 485 ml # Bowel Movements 2 Laboratory Tests 10/30/20 04:20: White Blood Count 5.2, Red Blood Count 2.64L, Hemoglobin 8.1L, Hematocrit 25.7L, Mean Corpuscular Volume 97, Mean Corpuscular Hemoglobin 30.5, Mean Corpuscular Hemoglobin Concent 31.3L, Red Cell Distribution Width 19.4H, Platelet Count 183, Mean Platelet Volume 7.0, Neutrophils (%) (Auto) , Lymphocytes (%) (Auto) , Monocytes (%) (Auto) , Eosinophils (%) (Auto) , Basophils (%) (Auto) , Differ ential Total Cells Counted 100, Neutrophils % (Manual) 69, Lymphocytes % (Manual) 15L, Monocytes % (Manual) 6, Eosinophils % (Manual) 1, Basophils % (Manual) 0, Band Neutrophils 9H, Platelet Estimate Adequate, Platelet Morphology Normal, Hypochromasia 1+, Anisocytosis 2+, Sodium Level 142, Potassium Level 5.4#H, Chloride Level 108H, Carbon Dioxide Level 19L, Anion Gap 15, Blood Urea Nitrogen 40H, Creatinine 2.1H, Estimat Glomerular Filtration Rate 22.5, Glucose Level 161H, Uric Acid 7.7H, Calcium Level 7.5L, Phosphorus Level 3.1, Magnesium Level 2.5H, Total Bilirubin 0.3, Aspartate Amino Transf (AST/SGOT) 16, Alanine Aminotransferase (ALT/SGPT) 14, Alkaline Phosphatase 69, C-Reactive Protein, Quantitative 0.7, Pro-B-Type Natriuretic Peptide > 32542I, Total Protein 4.9L, Albumin 2.2L, Globulin 2.7, Albumin/Globulin Ratio 0.8L, Digoxin Level 0.9 Height (Feet): 5 Height (Inches): 0.00 Weight (Pounds): 145 General Appearance: no apparent distress EENT: normal ENT inspection Neck: supple Cardiovascular: normal rate Respiratory/Chest: decreased breath sounds Abdomen: hypoactive bowel sounds Extremities: non-tender Assessment/Plan Problem List: (1) Hypothyroidism ICD Codes: E03.9 - Hypothyroidism, unspecified SNOMED: 35621895 (2) Pneumonia due to COVID-19 virus ICD Codes: U07.1 - COVID-19; J12.82 - Pneumonia due to coronavirus disease 2019 SNOMED: 729199709455567904 (3) Malnutrition ICD Codes: E46 - Unspecified protein-calorie malnutrition SNOMED: 63639500 (4) Decubitus skin ulcer ICD Codes: L89.90 - Pressure ulcer of unspecified site, unspecified stage SNOMED: 274302814 (5) Elevated troponin ICD Codes: R77.8 - Other specified abnormalities of plasma proteins SNOMED: 241039682, 870351465, 381978592 (6) Atrial fibrillation ICD Codes: I48.91 - Unspecified atrial fibrillation SNOMED: 25894976 (7) Anemia ICD Codes: D64.9 - Anemia, unspecified SNOMED: 633272362 Status: progressing Assessment/Plan: GTF on levophed fu cardiology fu pulm labs for AM Skyler Tobar MD Oct 30, 2020 14:15
--- NOTE | 2020-10-30 16:00 | NUR ---
Tolerating feeding with minimal residual
--- NOTE | 2020-10-30 16:36 | Pulmonology Progress Note ---
Subjective ROS Limited/Unobtainable: No Interval Events: hypotensive, in ICU; more alert; on BiPAP Constitutional: Reports: fever HEENT: Repors: no symptoms Respiratory: Reports: no symptoms Cardiovascular: Reports: no symptoms Gastrointestinal/Abdominal: Reports: other Psychiatric: Reports: other - refusing medications; s/p PEG Allergies: Coded Allergies: No Known Allergies (Unverified , 10/17/20) All Systems: reviewed and negative except above Objective Last 24 Hour Vital Signs Date Time Temp Pulse Resp B/P (MAP) Pulse Ox O2 Delivery O2 Flow Rate FiO2 10/30/20 16:00 109 10/30/20 16:00 98.2 106 19 109/44 (65) 100 10/30/20 16:00 30 10/30/20 16:00 Bi-pap 2.0 Bi-pap Bi-pap 10/30/20 15:45 91/37 10/30/20 15:00 87 21 113/48 (69) 100 10/30/20 15:00 113/48 10/30/20 14:00 97.3 101 17 100/39 (59) 100 10/30/20 14:00 100/38 10/30/20 13:00 92 18 92/31 (51) 100 10/30/20 13:00 92/31 10/30/20 12:06 88 29 90 30 10/30/20 12:00 97 10/30/20 12:00 30 10/30/20 12:00 97.3 97 20 107/42 (63) 97 10/30/20 12:00 78/43 10/30/20 12:00 Bi-pap 2.0 Bi-pap Bi-pap 10/30/20 11:00 87 22 122/33 (62) 99 10/30/20 11:00 122/33 10/30/20 10:00 105 18 119/65 (83) 100 10/30/20 10:00 105/94 10/30/20 09:00 106/62 10/30/20 09:00 99 19 106/62 (77) 100 10/30/20 08:59 96 10/30/20 08:40 106/54 10/30/20 08:30 97.5 93 21 121/60 (80) 97 10/30/20 08:00 85 10/30/20 08:00 120/54 10/30/20 08:00 24 10/30/20 08:00 Bi-pap 2.0 Bi-pap Bi-pap 10/30/20 07:59 97.5 101 21 110/53 (72) 100 10/30/20 07:30 92 21 100 24 10/30/20 07:00 96 20 99/30 (53) 100 10/30/20 07:00 108/45 10/30/20 06:30 103 23 122/45 (70) 100 10/30/20 06:00 119/73 10/30/20 06:00 102 23 107/52 (70) 98 10/30/20 05:30 98 22 95/56 (69) 99 10/30/20 05:15 107 17 98 24 10/30/20 05:00 114/98 10/30/20 05:00 97 23 117/37 (63) 100 10/30/20 04:22 108 10/30/20 04:00 Bi-pap Bi-pap Bi-pap 10/30/20 04:00 24 10/30/20 04:00 111/40 10/30/20 04:00 97 22 122/56 (78) 100 10/30/20 03:30 103 25 126/59 (81) 99 10/30/20 03:18 98 18 100 24 10/30/20 03:00 99 22 109/40 (63) 99 10/30/20 03:00 118/41 10/30/20 02:30 96 24 109/48 (68) 100 10/30/20 02:11 93/44 10/30/20 02:00 98 24 93/44 (60) 98 10/30/20 01:12 100 22 100 24 10/30/20 01:00 99 23 121/60 (80) 100 10/30/20 00:30 106 26 112/49 (70) 100 10/30/20 00:00 106 25 96/75 (82) 100 10/30/20 00:00 88 10/30/20 00:00 Bi-pap Bi-pap Bi-pap 10/30/20 00:00 111/48 10/30/20 00:00 24 10/29/20 23:30 98 21 123/54 (77) 100 10/29/20 23:13 104 21 100 24 10/29/20 23:00 118/59 10/29/20 23:00 106 25 100/44 (62) 100 10/29/20 22:00 103/87 10/29/20 22:00 102 24 124/43 (70) 99 10/29/20 21:35 99 22 100 24 10/29/20 21:30 106 23 111/36 (61) 99 10/29/20 21:00 132/63 10/29/20 21:00 105 24 124/52 (76) 99 10/29/20 20:30 106 25 114/45 (68) 98 10/29/20 20:00 106 24 109/43 (65) 99 10/29/20 20:00 Bi-pap Bi-pap Bi-pap 10/29/20 20:00 111/53 10/29/20 20:00 24 10/29/20 19:30 114/49 10/29/20 19:12 110 27 99 24 10/29/20 19:05 117/38 10/29/20 19:00 107 24 117/38 (64) 99 10/29/20 18:30 98 25 110/46 (67) 99 10/29/20 18:00 92 27 110/46 (67) 99 10/29/20 18:00 103 23 95/42 (59) 97 10/29/20 17:30 106 20 103/35 (57) 98 10/29/20 17:00 99 22 96/48 (64) 97 Intake and Output 10/29/20 10/30/20 19:00 07:00 Intake Total 1929.25 ml 1607.020 ml Output Total 595 ml 485 ml Balance 1334.25 ml 1122.020 ml IV Total 1869.25 ml 1497.020 ml Tube Feeding 30 ml 110 ml Other 30 ml Output Urine Total 595 ml 485 ml # Bowel Movements 2 General Appearance: no acute distress HEENT: atraumatic Respiratory: lungs clear Cardiovascular: normal rate, regular rhythm Abdomen: soft, non tender, other - s/p PEG Laboratory Tests 10/30/20 04:20: White Blood Count 5.2, Red Blood Count 2.64L, Hemoglobin 8.1L, Hematocrit 25.7L, Mean Corpuscular Volume 97, Mean Corpuscular Hemoglobin 30.5, Mean Corpuscular Hemoglobin Concent 31.3L, Red Cell Distribution Width 19.4H, Platelet Count 183, Mean Platelet Volume 7.0, Neutrophils (%) (Auto) , Lymphocytes (%) (Auto) , Monocytes (%) (Auto) , Eosinophils (%) (Auto) , Basophils (%) (Auto) , Differential Total Cells Counted 100, Neutrophils % (Manual) 69, Lymphocytes % (Manual) 15L, Monocytes % (Manual) 6, Eosinophils % (Manual) 1, Basophils % (Manual) 0, Band Neutrophils 9H, Platelet Estimate Adequate, Platelet Morphology Normal, Hypochromasia 1+, Anisocytosis 2+, Sodium Level 142, Potassium Level 5.4#H, Chloride Level 108H, Carbon Dioxide Level 19L, Anion Gap 15, Blood Urea Nitrogen 40H, Creatinine 2.1H, Estimat Glomerular Filtration Rate 22.5, Glucose Level 161H, Uric Acid 7.7H, Calcium Level 7.5L, Phosphorus Level 3.1, Magnesium Level 2.5H, Total Bilirubin 0.3, Aspartate Amino Transf (AST/SGOT) 16, Alanine Aminotransferase (ALT/SGPT) 14, Alkaline Phosphatase 69, C-Reactive Protein, Quantitative 0.7, Pro-B-Type Natriuretic Peptide > 58846P, Total Protein 4.9L, Albumin 2.2L, Globulin 2.7, Albumin/Globulin Ratio 0.8L, Digoxin Level 0.9 Current Medications Medications (Trade) Dose Ordered Sig/Yolanda Route PRN Reason Start Time Stop Time Status Last Admin Dose Admin Acetaminophen (Tylenol) 500 mg Q6HR PRN ORAL Mild Pain 1-3 10/17/20 17:45 11/16/20 17:44 Acetaminophen (Tylenol) 500 mg Q6HR PRN ORAL fever >100 10/17/20 18:00 11/16/20 17:59 Acetaminophen (Tylenol) 650 mg Q4H PRN ORAL Pain Scale (6-10) 10/17/20 19:15 11/16/20 19:14 Apixaban (Eliquis) 2.5 mg BID ORAL 10/24/20 18:00 01/22/21 17:59 10/30/20 09:00 Chlorhexidine Gluconate (Eve-Hex 2%) 1 applic DAILY@2000 TOPIC 10/22/20 20:00 01/20/21 19:59 10/29/20 21:02 Dextrose/Sodium Chloride 1,000 ml @ 100 mls/hr Q10H IV 10/25/20 12:00 11/24/20 11:59 10/30/20 13:52 Digoxin (Lanoxin) 0.125 mg DAILY GT 10/30/20 09:00 01/28/21 08:59 10/30/20 08:59 Docusate Sodium (Colace) 10 mg EVERY 8 HOURS GT 10/28/20 14:00 11/24/20 17:59 10/30/20 06:28 Levothyroxine Sodium (Synthroid) 50 mcg DAILY@0630 ORAL 10/19/20 06:30 11/18/20 06:29 10/30/20 06:29 Norepinephrine Bitartrate 8 mg/ Dextrose 558 ml @ 0 mls/hr Q24H IV 10/29/20 11:00 11/01/20 10:59 10/30/20 15:45 Ondansetron HCl (Zofran) 4 mg Q6H PRN IVP Nausea & Vomiting 10/17/20 21:15 11/16/20 21:14 Pantoprazole (Protonix) 40 mg EVERY 12 HOURS IVP 10/26/20 21:00 11/25/20 20:59 10/30/20 09:00 Piperacillin Sod/ Tazobactam Sod 3.375 gm/Sodium Chloride 110 ml @ 27.5 mls/hr Q12H IVPB 10/26/20 14:00 11/02/20 13:59 10/30/20 14:35 Assessment/Plan Assessment/Plan 1. CHF. 2. CAD/previous non-STEMI. 3. [facility] resident. 4. Bradycardia. 5. Atrial fibrillation. -Started on Eliquis 6. Renal insufficiency. -Nephro following 7. Troponin leak. - Cardio following 8. COVID-19 pneumonia, without fever or leukocytosis - Now on BiPAP - noted hypercapnia and resp acidosis on ABG today; repeat ABG satisfactory, showing improvement; ph 7.20 9. Hypoxemia 10. 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 UTI, cheryl 12. Dysphagia -s/p PEG (10/23) 13. Hypotension; improved - s/p NS bolus - pressors as needed Carlos Woods MD Oct 30, 2020 16:36
--- NOTE | 2020-10-30 17:00 | NUR ---
NURSE NOTES: BP dropped to 79/40- Levophed increased to 28mg/min
--- NOTE | 2020-10-30 18:00 | NUR ---
NURSE NOTES: Remains A-Fib, Levohed at 28 mcg/min BP 96/40. Tolerating feeding - increased to 50 cc/hr
--- NOTE | 2020-10-30 18:03 | Diagnostic Imaging Report ---
Indication: Central line placement Technique: One view of the chest Comparison: 10/26/2020 Findings: Interval placement left subclavian central venous catheter, tip of which projects at the level of the innominate venous confluence. No pneumothorax. Left pleural effusion, bilateral interstitial and airspace edema versus infiltrates persist, unchanged. Impression: Satisfactory central line placement. No radiographically evident complication Stable findings as described
--- NOTE | 2020-10-30 19:18 | NUR ---
NURSE NOTES: Report given to Dustin HILL. Endorsed
--- NOTE | 2020-10-30 19:30 | NUR ---
NURSE NOTES: Received patient on BiPap 20/5 30% rate 12- no S/s resp.distress noted- SaO2 98-100 % . Patient on Levophed at 28 mcg- infusing via TLC @ Left Subclavian TLC, GT in place -- feeding at 50ml/hr - Vital AF 1.2. F/C in place with moderate amt. of urine output. Generalized edema noted, anasarca noted, Will continue to monitor.
[2020-10-30] MEDS: Dyna-Hex 2% Top Sol 2oz TOPIC SCH (20:00)
--- NOTE | 2020-10-30 20:00 | NUR ---
NURSE NOTES: 1 unit PRBC started VSS, afebrile 96.6F (ax) Repositioned and oral care given. NAD at this time SpO2 96-100% Remains in afib rhythm Neuro status remains unchanged
--- NOTE | 2020-10-30 21:27 | General Progress Note ---
Subjective ROS Limited/Unobtainable: Yes Allergies: Coded Allergies: No Known Allergies (Unverified , 10/17/20) Objective Last 24 Hour Vital Signs Date Time Temp Pulse Resp B/P (MAP) Pulse Ox O2 Delivery O2 Flow Rate FiO2 10/30/20 19:52 99 12 98 30 10/30/20 18:59 116 22 98/35 (56) 98 10/30/20 18:00 84 15 92/25 (47) 100 10/30/20 17:16 104 18 101/28 (52) 96 10/30/20 17:00 113 18 79/40 (53) 96 10/30/20 17:00 79/40 10/30/20 16:00 109 10/30/20 16:00 98.2 106 19 109/44 (65) 100 10/30/20 16:00 109/44 10/30/20 16:00 30 10/30/20 16:00 Bi-pap 2.0 Bi-pap Bi-pap 10/30/20 15:45 91/37 10/30/20 15:00 87 21 113/48 (69) 100 10/30/20 15:00 113/48 10/30/20 14:00 97.3 101 17 100/39 (59) 100 10/30/20 14:00 100/38 10/30/20 13:00 92 18 92/31 (51) 100 10/30/20 13:00 92/31 10/30/20 12:06 88 29 90 30 10/30/20 12:00 97 10/30/20 12:00 30 10/30/20 12:00 97.3 97 20 107/42 (63) 97 10/30/20 12:00 78/43 10/30/20 12:00 Bi-pap 2.0 Bi-pap Bi-pap 10/30/20 11:00 87 22 122/33 (62) 99 10/30/20 11:00 122/33 10/30/20 10:00 105 18 119/65 (83) 100 10/30/20 10:00 105/94 10/30/20 09:00 106/62 10/30/20 09:00 99 19 106/62 (77) 100 10/30/20 08:59 96 10/30/20 08:40 106/54 10/30/20 08:30 97.5 93 21 121/60 (80) 97 10/30/20 08:00 85 10/30/20 08:00 120/54 10/30/20 08:00 24 10/30/20 08:00 Bi-pap 2.0 Bi-pap Bi-pap 10/30/20 07:59 97.5 101 21 110/53 (72) 100 10/30/20 07:30 92 21 100 24 10/30/20 07:00 96 20 99/30 (53) 100 10/30/20 07:00 108/45 10/30/20 06:30 103 23 122/45 (70) 100 10/30/20 06:00 119/73 10/30/20 06:00 102 23 107/52 (70) 98 10/30/20 05:30 98 22 95/56 (69) 99 10/30/20 05:15 107 17 98 24 10/30/20 05:00 114/98 10/30/20 05:00 97 23 117/37 (63) 100 10/30/20 04:22 108 10/30/20 04:00 Bi-pap Bi-pap Bi-pap 10/30/20 04:00 24 10/30/20 04:00 111/40 10/30/20 04:00 97 22 122/56 (78) 100 10/30/20 03:30 103 25 126/59 (81) 99 10/30/20 03:18 98 18 100 24 10/30/20 03:00 99 22 109/40 (63) 99 10/30/20 03:00 118/41 10/30/20 02:30 96 24 109/48 (68) 100 10/30/20 02:11 93/44 10/30/20 02:00 98 24 93/44 (60) 98 10/30/20 01:12 100 22 100 24 10/30/20 01:00 99 23 121/60 (80) 100 10/30/20 00:30 106 26 112/49 (70) 100 10/30/20 00:00 106 25 96/75 (82) 100 10/30/20 00:00 88 10/30/20 00:00 Bi-pap Bi-pap Bi-pap 10/30/20 00:00 111/48 10/30/20 00:00 24 10/29/20 23:30 98 21 123/54 (77) 100 10/29/20 23:13 104 21 100 24 10/29/20 23:00 118/59 10/29/20 23:00 106 25 100/44 (62) 100 10/29/20 22:00 103/87 10/29/20 22:00 102 24 124/43 (70) 99 10/29/20 21:35 99 22 100 24 10/29/20 21:30 106 23 111/36 (61) 99 Intake and Output 10/29/20 10/30/20 19:00 07:00 Intake Total 1929.25 ml 1607.020 ml Output Total 595 ml 485 ml Balance 1334.25 ml 1122.020 ml IV Total 1869.25 ml 1497.020 ml Tube Feeding 30 ml 110 ml Other 30 ml Output Urine Total 595 ml 485 ml # Bowel Movements 2 Laboratory Tests 10/30/20 04:20: White Blood Count 5.2, Red Blood Count 2.64L, Hemoglobin 8.1L, Hematocrit 25.7L, Mean Corpuscular Volume 97, Mean Corpuscular Hemoglobin 30.5, Mean Corpuscular Hemoglobin Concent 31.3L, Red Cell Distribution Width 19.4H, Platelet Count 183, Mean Platelet Volume 7.0, Neutrophils (%) (Auto) , Lymphocytes (%) (Auto) , Monocytes (%) (Auto) , Eosinophils (%) (Auto) , Basophils (%) (Auto) , Differential Total Cells Counted 100, Neutrophils % (Manual) 69, Lymphocytes % (Manual) 15L, Monocytes % (Manual) 6, Eosinophils % (Manual) 1, Basophils % (Manual) 0, Band Neutrophils 9H, Platelet Estimate Adequate, Platelet Morphology Normal, Hypochromasia 1+, Anisocytosis 2+, Sodium Level 142, Potassium Level 5.4#H, Chloride Level 108H, Carbon Dioxide Level 19L, Anion Gap 15, Blood Urea Nitrogen 40H, Creatinine 2.1H, Estimat Glomerular Filtration Rate 22.5, Glucose Level 161H, Uric Acid 7.7H, Calcium Level 7.5L, Phosphorus Level 3.1, Magnesium Level 2.5H, Total Bilirubin 0.3, Aspartate Amino Transf (AST/SGOT) 16, Alanine Aminotransferase (ALT/SGPT) 14, Alkaline Phosphatase 69, C-Reactive Protein, Quantitative 0.7, Pro-B-Type Natriuretic Peptide > 16204Z, Total Protein 4.9L, Albumin 2.2L, Globulin 2.7, Albumin/Globulin Ratio 0.8L, Digoxin Level 0.9 Height (Feet): 5 Height (Inches): 0.00 Weight (Pounds): 145 Assessment/Plan Problem List: (1) Anemia ICD Codes: D64.9 - Anemia, unspecified SNOMED: 151289087 (2) Acute kidney injury ICD Codes: N17.9 - Acute kidney failure, unspecified SNOMED: 65059805, 5445251 (3) Atrial fibrillation ICD Codes: I48.91 - Unspecified atrial fibrillation SNOMED: 90489907 (4) Elevated troponin ICD Codes: R77.8 - Other specified abnormalities of plasma proteins SNOMED: 583025718, 051225957, 180357578 (5) Malnutrition ICD Codes: E46 - Unspecified protein-calorie malnutrition SNOMED: 61061384 (6) Pneumonia due to COVID-19 virus ICD Codes: U07.1 - COVID-19; J12.82 - Pneumonia due to coronavirus disease 2019 SNOMED: 615719710367882309 (7) Hypothyroidism ICD Codes: E03.9 - Hypothyroidism, unspecified SNOMED: 45819670 Status: progressing Assessment/Plan: anemia of cri low k a fib reviewed chart and labs and meds no fever no change denise + Neri Dumont MD Oct 30, 2020 21:27
--- NOTE | 2020-10-30 22:00 | NUR ---
NURSE NOTES: 1 unit PRBC remains infusing at this time, no reaction observed VSS, remains afebrile Repositioned and oral care provided. NAD at this time SpO2 96-100% Remains in afib rhythm Neuro status remains unchanged
[2020-10-31] VITALS (42 sets, daily range): BP systolic 95–143; BP diastolic 40–86
--- NOTE | 2020-10-31 | NUR ---
NURSE NOTES: 1 unit PRBC remains infused, no reactions observed VSS, remains afebrile Repositioned and oral care provided. NAD at this time SpO2 96-100% Remains in afib rhythm Neuro status remains unchanged
[2020-10-31] MEDS: Piperacillin/Tazobactam 3.375 GM in NS 110 ML IVPB SCH ×2 (01:59→13:34)
--- NOTE | 2020-10-31 02:00 | NUR ---
NURSE NOTES: Rectal tube inserted for diarrhea. Slowly tapering Levophed down.
--- NOTE | 2020-10-31 04:00 | NUR ---
NURSE NOTES: Patient repositioned and given oral care Levophed on Hold Blood pressure remains stable Rectal tube remains in place. Remains in cotrolled afib rhythm
[2020-10-31] MEDS: Docusate 100mg/10ml Liq GT SCH (05:24)
--- NOTE | 2020-10-31 06:00 | NUR ---
NURSE NOTES: Patient repositioned and given oral care Levophed remains on Hold Blood pressure remains stable Rectal tube remains in place. AM meds given. Remains in cotrolled afib rhythm
[2020-10-31 06:33] LABS: HEMATOCRIT 25.3 % (37.0-47.0); HEMOGLOBIN 7.9 G/DL (12.0-16.0); MEAN CORPUSCULAR VOLUME 96 FL (80-99); PLATELET COUNT 134 K/UL (150-450); RED BLOOD COUNT 2.65 M/UL (4.20-5.40); RED CELL DISTRIBUTION WIDTH 19.2 % (11.6-14.8); WHITE BLOOD COUNT 4.4 K/UL (4.8-10.8)
[2020-10-31 06:41] LABS: INR 1.1 (0.9-1.1)
[2020-10-31 07:07] LABS: CALCIUM 7.5 MG/DL (8.5-10.1)
[2020-10-31 07:10] LABS: POTASSIUM 2.7 MMOL/L (3.5-5.1)
--- NOTE | 2020-10-31 07:20 | NUR ---
NURSE NOTES: Received patient in bed. On continuous bipap 20/5 FiO2 30%. No respiratory distress at this time. On continuous GTF as tolerated. 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 Left subclavian TLC inplace, with D5NS running at 100ml/hour. Bilateral lower and upper extremities edema noted. Bed in lowest position. Will continue plan of care.
--- NOTE | 2020-10-31 07:30 | NUR ---
RESPIRATORY NOTE: Pt received on BIPAP 20/5, RR 12, 30% FiO2. Pt is sleeping and tape is in place. SpO2 99% on current settings. Bilateral b/s are diminished throughout with equal chest rise. Bipap is plugged into red outlet. Alarms are on and audible. Ambu bag at bedside. ABG to be drawn. Will continue to closely monitor.
[2020-10-31] MEDS: Digoxin 0.125mg tab GT SCH (08:20)
[2020-10-31] MEDS: Pantoprazole Inj IVP SCH (08:20)
[2020-10-31] MEDS: D5NS 1,000 ML IV SCH (08:20)
[2020-10-31] MEDS: Eliquis 2.5mg tablet ORAL SCH ×2 (09:00→18:00)
--- NOTE | 2020-10-31 09:02 | General Progress Note ---
Subjective ROS Limited/Unobtainable: No Allergies: Coded Allergies: No Known Allergies (Unverified , 10/17/20) Objective Last 24 Hour Vital Signs Date Time Temp Pulse Resp B/P (MAP) Pulse Ox O2 Delivery O2 Flow Rate FiO2 10/31/20 08:20 76 10/31/20 08:00 30 10/31/20 08:00 Bi-pap 2.0 Bi-pap Bi-pap 10/31/20 08:00 76 19 104/42 (62) 99 10/31/20 07:29 80 21 99 30 10/31/20 07:00 77 19 103/50 (67) 99 10/31/20 06:30 80 18 96/51 (66) 99 10/31/20 06:15 80 22 109/46 (67) 98 10/31/20 06:00 80 21 112/59 (76) 99 10/31/20 05:30 80 20 114/58 (76) 99 10/31/20 05:10 74 12 98 30 10/31/20 05:00 73 19 103/45 (64) 98 10/31/20 04:30 83 21 95/50 (65) 98 10/31/20 04:00 Bi-pap 2.0 Bi-pap Bi-pap 10/31/20 04:00 83 10/31/20 04:00 96.6 81 23 103/46 (65) 97 10/31/20 04:00 112/63 10/31/20 04:00 30 10/31/20 03:30 84 21 110/44 (66) 97 10/31/20 03:16 89 16 98 30 10/31/20 03:00 83 21 118/52 (74) 97 10/31/20 03:00 97/51 10/31/20 02:30 86 20 117/61 (79) 97 10/31/20 02:00 93 21 124/53 (76) 98 10/31/20 02:00 124/53 10/31/20 01:30 90 18 143/51 (81) 100 10/31/20 01:00 84 17 125/56 (79) 98 10/31/20 01:00 112/50 10/31/20 00:30 85 16 115/56 (75) 98 10/31/20 00:00 123/63 10/31/20 00:00 30 10/31/20 00:00 Bi-pap 2.0 Bi-pap Bi-pap 10/31/20 00:00 97.0 88 17 96/47 (63) 99 10/31/20 00:00 99 10/30/20 23:57 84 16 100 30 10/30/20 23:30 82 20 82/17 (38) 100 10/30/20 23:00 88 17 92/48 (63) 100 10/30/20 23:00 103/53 10/30/20 22:30 92 18 92/42 (59) 99 10/30/20 22:00 93/43 10/30/20 22:00 96 15 93/43 (60) 99 10/30/20 21:58 88 14 100 30 10/30/20 21:30 100 21 91/37 (55) 97 10/30/20 21:00 100 18 91/47 (62) 99 10/30/20 21:00 91/47 10/30/20 20:30 93/43 10/30/20 20:30 94 17 97/35 (55) 99 10/30/20 20:00 Bi-pap 2.0 Bi-pap Bi-pap 10/30/20 20:00 98/41 10/30/20 20:00 106 10/30/20 20:00 96.6 98 20 98/41 (60) 99 10/30/20 20:00 30 10/30/20 19:52 99 12 98 30 10/30/20 19:30 100 23 106/50 (68) 98 10/30/20 19:00 98/35 10/30/20 19:00 100 22 98/35 (56) 99 10/30/20 18:59 116 22 98/35 (56) 98 10/30/20 18:00 84 15 92/25 (47) 100 10/30/20 18:00 92/25 10/30/20 17:16 104 18 101/28 (52) 96 10/30/20 17:00 113 18 79/40 (53) 96 10/30/20 17:00 79/40 10/30/20 16:00 109 10/30/20 16:00 98.2 106 19 109/44 (65) 100 10/30/20 16:00 109/44 10/30/20 16:00 30 10/30/20 16:00 Bi-pap 2.0 Bi-pap Bi-pap 10/30/20 15:45 91/37 10/30/20 15:00 87 21 113/48 (69) 100 10/30/20 15:00 113/48 10/30/20 14:00 97.3 101 17 100/39 (59) 100 10/30/20 14:00 100/38 10/30/20 13:00 92 18 92/31 (51) 100 10/30/20 13:00 92/31 10/30/20 12:06 88 29 90 30 10/30/20 12:00 97 10/30/20 12:00 30 10/30/20 12:00 97.3 97 20 107/42 (63) 97 10/30/20 12:00 78/43 10/30/20 12:00 Bi-pap 2.0 Bi-pap Bi-pap 10/30/20 11:00 87 22 122/33 (62) 99 10/30/20 11:00 122/33 10/30/20 10:00 105 18 119/65 (83) 100 10/30/20 10:00 105/94 Intake and Output 10/30/20 10/31/20 19:00 07:00 Intake Total 2755.545 ml 2608.458 ml Output Total 170 ml Balance 2585.545 ml 2608.458 ml Free Water 50 ml 80 ml IV Total 2315.545 ml 1908.458 ml Tube Feeding 390 ml 620 ml Output Urine Total 170 ml # Voids 450 510 # Bowel Movements 2 1 Laboratory Tests 10/31/20 06:00: White Blood Count 4.4L, Red Blood Count 2.65L, Hemoglobin 7.9L, Hematocrit 25.3L , Mean Corpuscular Volume 96, Mean Corpuscular Hemoglobin 29.8, Mean Corpuscular Hemoglobin Concent 31.2L, Red Cell Distribution Width 19.2H, Platelet Count 134L , Mean Platelet Volume 8.0, Neutrophils (%) (Auto) , Lymphocytes (%) (Auto) , Monocytes (%) (Auto) , Eosinophils (%) (Auto) , Basophils (%) (Auto) , Neutrophils % (Manual) [Pending], Lymphocytes % (Manual) [Pending], Platelet Estimate [Pending], Platelet Morphology [Pending], Prothrombin Time 11.8H, Prothromb Time International Ratio 1.1, Sodium Level 141, Potassium Level 2.7*L, Chloride Level 109H, Carbon Dioxide Level 21, Anion Gap 12, Blood Urea Nitrogen 35H, Creatinine 2.0H, Estimat Glomerular Filtration Rate 23.8, Glucose Level 135H, Calcium Level 7.5L 10/31/20 08:03: Arterial Blood pH 7.119*L, Arterial Blood Partial Pressure CO2 52.1H, Arterial Blood Partial Pressure O2 86.7, Arterial Blood HCO3 16.5*L, Arterial Blood Oxygen Saturation 94.5L, Arterial Blood Base Excess -12.2*L, Gallo Test Positive Height (Feet): 5 Height (Inches): 0.00 Weight (Pounds): 145 General Appearance: no apparent distress EENT: normal ENT inspection Neck: supple Cardiovascular: normal rate Respiratory/Chest: decreased breath sounds Abdomen: normal bowel sounds, non tender, soft Extremities: non-tender Assessment/Plan Problem List: (1) Hypothyroidism ICD Codes: E03.9 - Hypothyroidism, unspecified SNOMED: 41650769 (2) Pneumonia due to COVID-19 virus ICD Codes: U07.1 - COVID-19; J12.82 - Pneumonia due to coronavirus disease 2019 SNOMED: 614275112541027674 (3) Malnutrition ICD Codes: E46 - Unspecified protein-calorie malnutrition SNOMED: 45628128 (4) Decubitus skin ulcer ICD Codes: L89.90 - Pressure ulcer of unspecified site, unspecified stage SNOMED: 707842742 (5) Elevated troponin ICD Codes: R77.8 - Other specified abnormalities of plasma proteins SNOMED: 903624529, 541317043, 962859103 (6) Atrial fibrillation ICD Codes: I48.91 - Unspecified atrial fibrillation SNOMED: 32007175 (7) Anemia ICD Codes: D64.9 - Anemia, unspecified SNOMED: 810008052 Status: progressing Assessment/Plan: GTF on levophed fu cardiology fu pulm labs for AM dc colace change ppi to daily Skyler Tobar MD Oct 31, 2020 09:02
--- NOTE | 2020-10-31 09:05 | NUR ---
NURSE NOTES: Dr. Tobar at bedside. Informed that patient has diarrhea, with rectal tube inplace. With order to discontinue docusate scheduled medication.
--- NOTE | 2020-10-31 09:23 | Hematology/Onc Progress Note ---
Assessment/Plan Assessment/Plan # Thrombocytopenia is due to infection/underlying covid19+++ --> ABX ceftriaxone -->zosyn --> on steriods likely cause of initial wbc --> per pulm --> plt 107->156-->192-->205 --> smear reviewed # Anemia due to chronic disease --> hgb goal is >7 --> transfuse prn --> ferritin is >1000 --> hold off on iron --> 10-->9.8->9-->8-->8.2-->9.4-->8.1 # Elevated ddimer due to covid19++ --> duplex legs is negative --> underlying covid rx # Hypoxia -> due to covid19 # Hypoxemia --> rx same as above # Respiratory failure --> on vent --> per pulm # Pneumonia due to COVID-19 virus --> per pulm rx -> sp remdesivir # Diabetes mellitus out of control --> hgb a1c goal <7 # Poor prognosis # Dvt ppx lovenox sq Appreciate consultation and dw RN Subjective Allergies: Coded Allergies: No Known Allergies (Unverified , 10/17/20) Objective Objective Current Medications Medications (Trade) Dose Ordered Sig/Yolanda Route PRN Reason Start Time Stop Time Status Last Admin Dose Admin Acetaminophen (Tylenol) 500 mg Q6HR PRN ORAL Mild Pain 1-3 10/17/20 17:45 11/16/20 17:44 Acetaminophen (Tylenol) 500 mg Q6HR PRN ORAL fever >100 10/17/20 18:00 11/16/20 17:59 Acetaminophen (Tylenol) 650 mg Q4H PRN ORAL Pain Scale (6-10) 10/17/20 19:15 11/16/20 19:14 Apixaban (Eliquis) 2.5 mg BID ORAL 10/24/20 18:00 01/22/21 17:59 10/30/20 17:45 Chlorhexidine Gluconate (Eve-Hex 2%) 1 applic DAILY@2000 TOPIC 10/22/20 20:00 01/20/21 19:59 10/30/20 20:00 Dextrose/Sodium Chloride 1,000 ml @ 100 mls/hr Q10H IV 10/25/20 12:00 11/24/20 11:59 10/31/20 08:20 Digoxin (Lanoxin) 0.125 mg DAILY GT 10/30/20 09:00 01/28/21 08:59 10/31/20 08:20 Levothyroxine Sodium (Synthroid) 50 mcg DAILY@0630 ORAL 10/19/20 06:30 11/18/20 06:29 10/31/20 05:24 Norepinephrine Bitartrate 8 mg/ Dextrose 558 ml @ 0 mls/hr Q24H IV 10/29/20 11:00 11/01/20 10:59 10/30/20 20:30 Ondansetron HCl (Zofran) 4 mg Q6H PRN IVP Nausea & Vomiting 10/17/20 21:15 11/16/20 21:14 Pantoprazole (Protonix) 40 mg DAILY IVP 11/01/20 09:00 11/25/20 20:59 UNV Piperacillin Sod/ Tazobactam Sod 3.375 gm/Sodium Chloride 110 ml @ 27.5 mls/hr Q12H IVPB 10/26/20 14:00 11/02/20 13:59 10/31/20 01:59 Last 24 Hour Vital Signs Date Time Temp Pulse Resp B/P (MAP) Pulse Ox O2 Delivery O2 Flow Rate FiO2 10/31/20 09:00 97.3 78 19 106/46 (66) 99 10/31/20 08:20 76 10/31/20 08:00 30 10/31/20 08:00 Bi-pap 2.0 Bi-pap Bi-pap 10/31/20 08:00 76 19 104/42 (62) 99 10/31/20 07:54 77 10/31/20 07:29 80 21 99 30 10/31/20 07:00 77 19 103/50 (67) 99 10/31/20 06:30 80 18 96/51 (66) 99 10/31/20 06:15 80 22 109/46 (67) 98 10/31/20 06:00 80 21 112/59 (76) 99 10/31/20 05:30 80 20 114/58 (76) 99 10/31/20 05:10 74 12 98 30 10/31/20 05:00 73 19 103/45 (64) 98 10/31/20 04:30 83 21 95/50 (65) 98 10/31/20 04:00 Bi-pap 2.0 Bi-pap Bi-pap 10/31/20 04:00 83 10/31/20 04:00 96.6 81 23 103/46 (65) 97 10/31/20 04:00 112/63 10/31/20 04:00 30 10/31/20 03:30 84 21 110/44 (66) 97 10/31/20 03:16 89 16 98 30 10/31/20 03:00 83 21 118/52 (74) 97 10/31/20 03:00 97/51 10/31/20 02:30 86 20 117/61 (79) 97 10/31/20 02:00 93 21 124/53 (76) 98 10/31/20 02:00 124/53 10/31/20 01:30 90 18 143/51 (81) 100 10/31/20 01:00 84 17 125/56 (79) 98 10/31/20 01:00 112/50 10/31/20 00:30 85 16 115/56 (75) 98 10/31/20 00:00 123/63 10/31/20 00:00 30 10/31/20 00:00 Bi-pap 2.0 Bi-pap Bi-pap 10/31/20 00:00 97.0 88 17 96/47 (63) 99 10/31/20 00:00 99 10/30/20 23:57 84 16 100 30 10/30/20 23:30 82 20 82/17 (38) 100 10/30/20 23:00 88 17 92/48 (63) 100 10/30/20 23:00 103/53 10/30/20 22:30 92 18 92/42 (59) 99 10/30/20 22:00 93/43 10/30/20 22:00 96 15 93/43 (60) 99 10/30/20 21:58 88 14 100 30 10/30/20 21:30 100 21 91/37 (55) 97 10/30/20 21:00 100 18 91/47 (62) 99 10/30/20 21:00 91/47 10/30/20 20:30 93/43 10/30/20 20:30 94 17 97/35 (55) 99 3/5/21 20:00 Bi-pap 2.0 Bi-pap Bi-pap 10/30/20 20:00 98/41 10/30/20 20:00 106 10/30/20 20:00 96.6 98 20 98/41 (60) 99 10/30/20 20:00 30 10/30/20 19:52 99 12 98 30 10/30/20 19:30 100 23 106/50 (68) 98 10/30/20 19:00 98/35 10/30/20 19:00 100 22 98/35 (56) 99 10/30/20 18:59 116 22 98/35 (56) 98 10/30/20 18:00 84 15 92/25 (47) 100 10/30/20 18:00 92/25 10/30/20 17:16 104 18 101/28 (52) 96 10/30/20 17:00 113 18 79/40 (53) 96 10/30/20 17:00 79/40 10/30/20 16:00 109 10/30/20 16:00 98.2 106 19 109/44 (65) 100 10/30/20 16:00 109/44 10/30/20 16:00 30 10/30/20 16:00 Bi-pap 2.0 Bi-pap Bi-pap 10/30/20 15:45 91/37 10/30/20 15:00 87 21 113/48 (69) 100 10/30/20 15:00 113/48 10/30/20 14:00 97.3 101 17 100/39 (59) 100 10/30/20 14:00 100/38 10/30/20 13:00 92 18 92/31 (51) 100 10/30/20 13:00 92/31 10/30/20 12:06 88 29 90 30 10/30/20 12:00 97 10/30/20 12:00 30 10/30/20 12:00 97.3 97 20 107/42 (63) 97 10/30/20 12:00 78/43 10/30/20 12:00 Bi-pap 2.0 Bi-pap Bi-pap 10/30/20 11:00 87 22 122/33 (62) 99 10/30/20 11:00 122/33 10/30/20 10:00 105 18 119/65 (83) 100 10/30/20 10:00 105/94 10/30/20 09:00 106/62 10/30/20 09:00 99 19 106/62 (77) 100 10/30/20 08:59 96 10/30/20 08:40 106/54 10/30/20 08:30 97.5 93 21 121/60 (80) 97 10/30/20 08:00 85 10/30/20 08:00 120/54 10/30/20 08:00 24 10/30/20 08:00 Bi-pap 2.0 Bi-pap Bi-pap 10/30/20 07:59 97.5 101 21 110/53 (72) 100 10/30/20 07:30 92 21 100 24 10/30/20 07:00 96 20 99/30 (53) 100 10/30/20 07:00 108/45 10/30/20 06:30 103 23 122/45 (70) 100 10/30/20 06:00 119/73 10/30/20 06:00 102 23 107/52 (70) 98 10/30/20 05:30 98 22 95/56 (69) 99 10/30/20 05:15 107 17 98 24 10/30/20 05:00 114/98 10/30/20 05:00 97 23 117/37 (63) 100 10/30/20 04:22 108 10/30/20 04:00 Bi-pap Bi-pap Bi-pap 10/30/20 04:00 24 10/30/20 04:00 111/40 10/30/20 04:00 97 22 122/56 (78) 100 10/30/20 03:30 103 25 126/59 (81) 99 10/30/20 03:18 98 18 100 24 10/30/20 03:00 99 22 109/40 (63) 99 10/30/20 03:00 118/41 10/30/20 02:30 96 24 109/48 (68) 100 10/30/20 02:11 93/44 10/30/20 02:00 98 24 93/44 (60) 98 10/30/20 01:12 100 22 100 24 10/30/20 01:00 99 23 121/60 (80) 100 10/30/20 00:30 106 26 112/49 (70) 100 10/30/20 00:00 106 25 96/75 (82) 100 10/30/20 00:00 88 10/30/20 00:00 Bi-pap Bi-pap Bi-pap 10/30/20 00:00 111/48 10/30/20 00:00 24 10/29/20 23:30 98 21 123/54 (77) 100 10/29/20 23:13 104 21 100 24 10/29/20 23:00 118/59 10/29/20 23:00 106 25 100/44 (62) 100 10/29/20 22:00 103/87 10/29/20 22:00 102 24 124/43 (70) 99 10/29/20 21:35 99 22 100 24 10/29/20 21:30 106 23 111/36 (61) 99 10/29/20 21:00 132/63 10/29/20 21:00 105 24 124/52 (76) 99 10/29/20 20:30 106 25 114/45 (68) 98 10/29/20 20:00 106 24 109/43 (65) 99 10/29/20 20:00 Bi-pap Bi-pap Bi-pap 10/29/20 20:00 111/53 10/29/20 20:00 24 10/29/20 19:30 114/49 10/29/20 19:12 110 27 99 24 10/29/20 19:05 117/38 10/29/20 19:00 107 24 117/38 (64) 99 10/29/20 18:30 98 25 110/46 (67) 99 10/29/20 18:00 92 27 110/46 (67) 99 10/29/20 18:00 103 23 95/42 (59) 97 10/29/20 17:30 106 20 103/35 (57) 98 10/29/20 17:00 99 22 96/48 (64) 97 10/29/20 16:00 105 10/29/20 16:00 Bi-pap Bi-pap Bi-pap 10/29/20 16:00 97.8 109 23 111/35 (60) 97 10/29/20 16:00 24 10/29/20 15:30 113 24 106/47 (66) 96 10/29/20 15:20 120 21 97 24 10/29/20 15:10 87/26 10/29/20 15:00 112 23 104/42 (62) 96 10/29/20 14:30 117 29 103/35 (57) 94 10/29/20 14:00 116 25 94/47 (63) 95 10/29/20 14:00 109 29 94/47 (63) 94 10/29/20 13:30 118 25 106/48 (67) 93 10/29/20 13:00 126 24 125/78 (94) 91 10/29/20 12:30 122 27 95 10/29/20 12:01 98.2 122 20 114/44 (67) 93 10/29/20 12:00 24 10/29/20 12:00 122 20 114/44 (67) 93 10/29/20 12:00 Bi-pap Bi-pap Bi-pap 10/29/20 12:00 120 10/29/20 11:39 120/25 10/29/20 11:30 118 26 120/25 (56) 95 10/29/20 11:25 106 20 97 24 10/29/20 11:00 124 29 123/45 (71) 93 10/29/20 11:00 136 30 123/45 (71) 95 10/29/20 10:30 142 28 112/36 (61) 95 10/29/20 10:27 130 10/29/20 10:00 136 26 111/72 (85) 96 10/29/20 09:30 129 21 140/126 (131) 93 Intake and Output 10/30/20 10/31/20 19:00 07:00 Intake Total 2755.545 ml 2608.458 ml Output Total 170 ml Balance 2585.545 ml 2608.458 ml Free Water 50 ml 80 ml IV Total 2315.545 ml 1908.458 ml Tube Feeding 390 ml 620 ml Output Urine Total 170 ml # Voids 450 510 # Bowel Movements 2 1 Labs Test 10/28/20 09:34 10/28/20 12:14 10/29/20 04:40 10/30/20 04:20 Arterial Blood pH 7.184 (7.350-7.450) 7.209 (7.350-7.450) Arterial Blood Partial Pressure CO2 59.8 mmHg (35.0-45.0) 48.2 mmHg (35.0-45.0) Arterial Blood Partial Pressure O2 76.9 mmHg (75.0-100.0) 95.7 mmHg (75.0-100.0) Arterial Blood HCO3 22.0 mmol/L (22.0-26.0) 18.8 mmol/L (22.0-26.0) Arterial Blood Oxygen Saturation 94.4 % (95-100) 96.6 % (95-100) Arterial Blood Base Excess -6.3 (-2-2) -8.7 (-2-2) Gallo Test Positive Positive White Blood Count 5.0 K/UL (4.8-10.8) 5.2 K/UL (4.8-10.8) Red Blood Count 2.63 M/UL (4.20-5.40) 2.64 M/UL (4.20-5.40) Hemoglobin 7.8 G/DL (12.0-16.0) 8.1 G/DL (12.0-16.0) Hematocrit 25.5 % (37.0-47.0) 25.7 % (37.0-47.0) Mean Corpuscular Volume 97 FL (80-99) 97 FL (80-99) Mean Corpuscular Hemoglobin 29.8 PG (27.0-31.0) 30.5 PG (27.0-31.0) Mean Corpuscular Hemoglobin Concent 30.7 G/DL (32.0-36.0) 31.3 G/DL (32.0-36.0) Red Cell Distribution Width 19.6 % (11.6-14.8) 19.4 % (11.6-14.8) Platelet Count 177 K/UL (150-450) 183 K/UL (150-450) Mean Platelet Volume 7.7 FL (6.5-10.1) 7.0 FL (6.5-10.1) Neutrophils (%) (Auto) % (45.0-75.0) % (45.0-75.0) Lymphocytes (%) (Auto) % (20.0-45.0) % (20.0-45.0) Monocytes (%) (Auto) % (1.0-10.0) % (1.0-10.0) Eosinophils (%) (Auto) % (0.0-3.0) % (0.0-3.0) Basophils (%) (Auto) % (0.0-2.0) % (0.0-2.0) Differential Total Cells Counted 100 100 Neutrophils % (Manual) 80 % (45-75) 69 % (45-75) Lymphocytes % (Manual) 9 % (20-45) 15 % (20-45) Monocytes % (Manual) 6 % (1-10) 6 % (1-10) Eosinophils % (Manual) 1 % (0-3) 1 % (0-3) Basophils % (Manual) 0 % (0-2) 0 % (0-2) Band Neutrophils 4 % (0-8) 9 % (0-8) Platelet Estimate Adequate Adequate Platelet Morphology Normal Normal Hypochromasia 1+ 1+ Anisocytosis 2+ 2+ Sodium Level 141 MMOL/L (136-145) 142 MMOL/L (136-145) Potassium Level 3.2 MMOL/L (3.5-5.1) 5.4 MMOL/L (3.5-5.1) Chloride Level 108 MMOL/L (98-107) 108 MMOL/L (98-107) Carbon Dioxide Level 22 MMOL/L (21-32) 19 MMOL/L (21-32) Anion Gap 11 mmol/L (5-15) 15 mmol/L (5-15) Blood Urea Nitrogen 38 mg/dL (7-18) 40 mg/dL (7-18) Creatinine 2.2 MG/DL (0.55-1.30) 2.1 MG/DL (0.55-1.30) Estimat Glomerular Filtration Rate 21.3 mL/min (>60) 22.5 mL/min (>60) Glucose Level 131 MG/DL (74-106) 161 MG/DL (74-106) Uric Acid 7.6 MG/DL (2.6-7.2) 7.7 MG/DL (2.6-7.2) Calcium Level 7.5 MG/DL (8.5-10.1) 7.5 MG/DL (8.5-10.1) Phosphorus Level 3.0 MG/DL (2.5-4.9) 3.1 MG/DL (2.5-4.9) Magnesium Level 2.2 MG/DL (1.8-2.4) 2.5 MG/DL (1.8-2.4) Total Bilirubin 0.2 MG/DL (0.2-1.0) 0.3 MG/DL (0.2-1.0) Aspartate Amino Transf (AST/SGOT) 9 U/L (15-37) 16 U/L (15-37) Alanine Aminotransferase (ALT/SGPT) 7 U/L (12-78) 14 U/L (12-78) Alkaline Phosphatase 68 U/L (46-116) 69 U/L (46-116) C-Reactive Protein, Quantitative 1.0 mg/dL (0.00-0.90) 0.7 mg/dL (0.00-0.90) Pro-B-Type Natriuretic Peptide > 61629 pg/mL (0-125) > 40460 pg/mL (0-125) Total Protein 4.9 G/DL (6.4-8.2) 4.9 G/DL (6.4-8.2) Albumin 2.2 G/DL (3.4-5.0) 2.2 G/DL (3.4-5.0) Globulin 2.7 g/dL 2.7 g/dL Albumin/Globulin Ratio 0.8 (1.0-2.7) 0.8 (1.0-2.7) Digoxin Level 0.9 NG/ML (0.9-2.0) Test 10/31/20 06:00 10/31/20 08:03 White Blood Count 4.4 K/UL (4.8-10.8) Red Blood Count 2.65 M/UL (4.20-5.40) Hemoglobin 7.9 G/DL (12.0-16.0) Hematocrit 25.3 % (37.0-47.0) Mean Corpuscular Volume 96 FL (80-99) Mean Corpuscular Hemoglobin 29.8 PG (27.0-31.0) Mean Corpuscular Hemoglobin Concent 31.2 G/DL (32.0-36.0) Red Cell Distribution Width 19.2 % (11.6-14.8) Platelet Count 134 K/UL (150-450) Mean Platelet Volume 8.0 FL (6.5-10.1) Neutrophils (%) (Auto) % (45.0-75.0) Lymphocytes (%) (Auto) % (20.0-45.0) Monocytes (%) (Auto) % (1.0-10.0) Eosinophils (%) (Auto) % (0.0-3.0) Basophils (%) (Auto) % (0.0-2.0) Prothrombin Time 11.8 SEC (9.30-11.50) Prothromb Time International Ratio 1.1 (0.9-1.1) Sodium Level 141 MMOL/L (136-145) Potassium Level 2.7 MMOL/L (3.5-5.1) Chloride Level 109 MMOL/L (98-107) Carbon Dioxide Level 21 MMOL/L (21-32) Anion Gap 12 mmol/L (5-15) Blood Urea Nitrogen 35 mg/dL (7-18) Creatinine 2.0 MG/DL (0.55-1.30) Estimat Glomerular Filtration Rate 23.8 mL/min (>60) Glucose Level 135 MG/DL (74-106) Calcium Level 7.5 MG/DL (8.5-10.1) Arterial Blood pH 7.119 (7.350-7.450) Arterial Blood Partial Pressure CO2 52.1 mmHg (35.0-45.0) Arterial Blood Partial Pressure O2 86.7 mmHg (75.0-100.0) Arterial Blood HCO3 16.5 mmol/L (22.0-26.0) Arterial Blood Oxygen Saturation 94.5 % (95-100) Arterial Blood Base Excess -12.2 (-2-2) Gallo Test Positive Height (Feet): 5 Height (Inches): 0.00 Weight (Pounds): 145 Objective Physical Exam General: Awake and alert, no acute distress HEENT: NC/AT. EOMI. Cardiovascular: Irregularly irregular rhythm. Resp: Normal work of breathing. + bipap Abdomen: Abdomen is soft, nondistended. Nontender Skin: Intact. No abrasions, laceration or rash over the exposed skin MSK: Normal tone and bulk. Moving all extremities. Neuro: Awake and alert. Mentating appropriately. Esmer Hunter NP Oct 31, 2020 09:23
--- NOTE | 2020-10-31 09:24 | NUR ---
NURSE NOTES: Dr. Woods called back, informed regarding patient's ABG results. MD said that he will come to check patient in an hour. Will inform RT/Isela. Patient on continuous bipap 20/5 FiO2 30%.
[2020-10-31 09:41] LABS: HEMATOCRIT 25.5 % (37.0-47.0); HEMOGLOBIN 7.8 G/DL (12.0-16.0); MEAN CORPUSCULAR VOLUME 95 FL (80-99); PLATELET COUNT 127 K/UL (150-450); RED BLOOD COUNT 2.69 M/UL (4.20-5.40); RED CELL DISTRIBUTION WIDTH 19.1 % (11.6-14.8); WHITE BLOOD COUNT 4.5 K/UL (4.8-10.8)
[2020-10-31] MEDS ORDERED: D5NS 1000ml IV ONE ×2 (09:57→09:59)
[2020-10-31] MEDS ORDERED: Tubing IV Secondary IV ONE (09:57)
[2020-10-31] MEDS ORDERED: Sterile Water Irrig 1000ml IRRIG ONE (09:57)
[2020-10-31] MEDS ORDERED: NS 275ml ONE (09:57)
[2020-10-31 10:03] LABS: ALBUMIN 2.3 G/DL (3.4-5.0); ALBUMIN/GLOBULIN RATIO 0.9 (1.0-2.7); BILIRUBIN,TOTAL 0.3 MG/DL (0.2-1.0); CALCIUM 7.5 MG/DL (8.5-10.1)
--- NOTE | 2020-10-31 10:11 | Surgery Progress Note ---
Surgery Progress Note Subjective Procedure Performed left subclavian central venous catheter insertion Additional Comments off pressors no n/v labs noted exam unchanged imaging reviewed line okay Objective Last 24 Hour Vital Signs Date Time Temp Pulse Resp B/P (MAP) Pulse Ox O2 Delivery O2 Flow Rate FiO2 10/31/20 09:45 83 23 112/42 (65) 98 10/31/20 09:30 80 19 109/40 (63) 99 10/31/20 09:15 78 21 100/74 (83) 98 10/31/20 09:00 97.3 78 19 106/46 (66) 99 10/31/20 08:20 76 10/31/20 08:00 30 10/31/20 08:00 Bi-pap 2.0 Bi-pap Bi-pap 10/31/20 08:00 76 19 104/42 (62) 99 10/31/20 07:54 77 10/31/20 07:29 80 21 99 30 10/31/20 07:00 77 19 103/50 (67) 99 10/31/20 06:30 80 18 96/51 (66) 99 10/31/20 06:15 80 22 109/46 (67) 98 10/31/20 06:00 80 21 112/59 (76) 99 10/31/20 05:30 80 20 114/58 (76) 99 10/31/20 05:10 74 12 98 30 10/31/20 05:00 73 19 103/45 (64) 98 10/31/20 04:30 83 21 95/50 (65) 98 10/31/20 04:00 Bi-pap 2.0 Bi-pap Bi-pap 10/31/20 04:00 83 10/31/20 04:00 96.6 81 23 103/46 (65) 97 10/31/20 04:00 112/63 10/31/20 04:00 30 10/31/20 03:30 84 21 110/44 (66) 97 10/31/20 03:16 89 16 98 30 10/31/20 03:00 83 21 118/52 (74) 97 10/31/20 03:00 97/51 10/31/20 02:30 86 20 117/61 (79) 97 10/31/20 02:00 93 21 124/53 (76) 98 3/6/21 02:00 124/53 10/31/20 01:30 90 18 143/51 (81) 100 10/31/20 01:00 84 17 125/56 (79) 98 10/31/20 01:00 112/50 10/31/20 00:30 85 16 115/56 (75) 98 10/31/20 00:00 123/63 10/31/20 00:00 30 10/31/20 00:00 Bi-pap 2.0 Bi-pap Bi-pap 10/31/20 00:00 97.0 88 17 96/47 (63) 99 10/31/20 00:00 99 10/30/20 23:57 84 16 100 30 10/30/20 23:30 82 20 82/17 (38) 100 10/30/20 23:00 88 17 92/48 (63) 100 10/30/20 23:00 103/53 10/30/20 22:30 92 18 92/42 (59) 99 10/30/20 22:00 93/43 10/30/20 22:00 96 15 93/43 (60) 99 10/30/20 21:58 88 14 100 30 10/30/20 21:30 100 21 91/37 (55) 97 10/30/20 21:00 100 18 91/47 (62) 99 10/30/20 21:00 91/47 10/30/20 20:30 93/43 10/30/20 20:30 94 17 97/35 (55) 99 10/30/20 20:00 Bi-pap 2.0 Bi-pap Bi-pap 10/30/20 20:00 98/41 10/30/20 20:00 106 10/30/20 20:00 96.6 98 20 98/41 (60) 99 10/30/20 20:00 30 10/30/20 19:52 99 12 98 30 10/30/20 19:30 100 23 106/50 (68) 98 10/30/20 19:00 98/35 10/30/20 19:00 100 22 98/35 (56) 99 10/30/20 18:59 116 22 98/35 (56) 98 10/30/20 18:00 84 15 92/25 (47) 100 10/30/20 18:00 92/25 10/30/20 17:16 104 18 101/28 (52) 96 10/30/20 17:00 113 18 79/40 (53) 96 10/30/20 17:00 79/40 10/30/20 16:00 109 10/30/20 16:00 98.2 106 19 109/44 (65) 100 10/30/20 16:00 109/44 10/30/20 16:00 30 10/30/20 16:00 Bi-pap 2.0 Bi-pap Bi-pap 10/30/20 15:45 91/37 10/30/20 15:00 87 21 113/48 (69) 100 10/30/20 15:00 113/48 10/30/20 14:00 97.3 101 17 100/39 (59) 100 10/30/20 14:00 100/38 10/30/20 13:00 92 18 92/31 (51) 100 10/30/20 13:00 92/31 10/30/20 12:06 88 29 90 30 10/30/20 12:00 97 10/30/20 12:00 30 10/30/20 12:00 97.3 97 20 107/42 (63) 97 10/30/20 12:00 78/43 10/30/20 12:00 Bi-pap 2.0 Bi-pap Bi-pap 10/30/20 11:00 87 22 122/33 (62) 99 10/30/20 11:00 122/33 I&O Intake and Output 10/30/20 10/31/20 19:00 07:00 Intake Total 2755.545 ml 2608.458 ml Output Total 170 ml Balance 2585.545 ml 2608.458 ml Free Water 50 ml 80 ml IV Total 2315.545 ml 1908.458 ml Tube Feeding 390 ml 620 ml Output Urine Total 170 ml # Voids 450 510 # Bowel Movements 2 1 Dressing: saturated Cardiovascular: RSR Respiratory: decreased breath sounds Abdomen: soft, flat, non-tender, present bowel sounds, non-distended Extremities: edema, no tenderness, no cyanosis Laboratory Tests Test 10/31/20 06:00 10/31/20 08:03 10/31/20 09:25 White Blood Count 4.4 K/UL (4.8-10.8) L 4.5 K/UL (4.8-10.8) L Red Blood Count 2.65 M/UL (4.20-5.40) L 2.69 M/UL (4.20-5.40) L Hemoglobin 7.9 G/DL (12.0-16.0) L 7.8 G/DL (12.0-16.0) L Hematocrit 25.3 % (37.0-47.0) L 25.5 % (37.0-47.0) L Mean Corpuscular Volume 96 FL (80-99) 95 FL (80-99) Mean Corpuscular Hemoglobin 29.8 PG (27.0-31.0) 29.1 PG (27.0-31.0) Mean Corpuscular Hemoglobin Concent 31.2 G/DL (32.0-36.0) L 30.7 G/DL (32.0-36.0) L Red Cell Distribution Width 19.2 % (11.6-14.8) H 19.1 % (11.6-14.8) H Platelet Count 134 K/UL (150-450) L 127 K/UL (150-450) L Mean Platelet Volume 8.0 FL (6.5-10.1) 8.4 FL (6.5-10.1) Neutrophils (%) (Auto) % (45.0-75.0) % (45.0-75.0) Lymphocytes (%) (Auto) % (20.0-45.0) % (20.0-45.0) Monocytes (%) (Auto) % (1.0-10.0) % (1.0-10.0) Eosinophils (%) (Auto) % (0.0-3.0) % (0.0-3.0) Basophils (%) (Auto) % (0.0-2.0) % (0.0-2.0) Neutrophils % (Manual) Pending Pending Lymphocytes % (Manual) Pending Pending Platelet Estimate Pending Pending Platelet Morphology Pending Pending Prothrombin Time 11.8 SEC (9.30-11.50) H Prothromb Time International Ratio 1.1 (0.9-1.1) Sodium Level 141 MMOL/L (136-145) Pending Potassium Level 2.7 MMOL/L (3.5-5.1) *L Pending Chloride Level 109 MMOL/L (98-107) H Pending Carbon Dioxide Level 21 MMOL/L (21-32) Pending Anion Gap 12 mmol/L (5-15) Blood Urea Nitrogen 35 mg/dL (7-18) H Pending Creatinine 2.0 MG/DL (0.55-1.30) H Pending Estimat Glomerular Filtration Rate 23.8 mL/min (>60) Pending Glucose Level 135 MG/DL (74-106) H Pending Calcium Level 7.5 MG/DL (8.5-10.1) L Pending Arterial Blood pH 7.119 (7.350-7.450) Arterial Blood Partial Pressure CO2 52.1 mmHg (35.0-45.0) H Arterial Blood Partial Pressure O2 86.7 mmHg (75.0-100.0) Arterial Blood HCO3 16.5 mmol/L (22.0-26.0) *L Arterial Blood Oxygen Saturation 94.5 % (95-100) L Arterial Blood Base Excess -12.2 (-2-2) *L Gallo Test Positive Total Bilirubin Pending Aspartate Amino Transf (AST/SGOT) Pending Alanine Aminotransferase (ALT/SGPT) Pending Alkaline Phosphatase Pending Total Protein Pending Albumin Pending Globulin Pending Plan Problems: (1) Anemia (2) Acute kidney injury (3) Atrial fibrillation (4) Hyperkalemia (5) Elevated troponin (6) Decubitus skin ulcer Assessment & Plan: Pt presented on admission with Multiple Medical Comorbidities including Covid-19 and Pressure Injuries. Primary Nurse reported Pt has been declining food and medications. Sacral DTPI that is evolving noted to Sacrum(L)6cm x (W)12.5cm.. Scattered Purpuric areas that are indurated noted to R and L cheek. Small wound that is 100% slough (L)0.6cm x (W)0.7cm noted at sacrococcygeal area within base of DTPI. MASD noted to Perineum and skin folds of Medial/posterior aspects of Both upper thighs. Affected areas are erythematous and macerated with scattered satellite lesions. DTPI L Heel (L)3cm x (W)4cm, Base of heel is maroon and fluctuant with small purpuric area (L)0.4cm x (W)0.9cm within base of DTPI. l Foot including toes are mottled and cool to touch. L Heel is boggy. L Heel including toes are Mottled and cool to touch. Tx.Plan: Apply Moisture Barrier Paste to Sacrum. Cover with Optifoam drsg.Change every 3 days and prn. Apply Moisture Barrier Paste to abdominal folds, Perineum and skin folds of both upper thighs. Apply Cavilon Skin Barrier to both heels. Cover each Heel with Optifoam drsg. Change every 7 days and prn. Reposition at least every 2hours or as tolerated. Off-load heels with pillow. (7) Malnutrition Assessment & Plan: She was able to self feed on right hand and took a bite of popsicle and tolerated without s.s of aspiration. After 1st bite, then she refused 2nd bite. After this was done, I offered her a cup of cranberry juice, she took few sips and tolerated without s.s of aspiration. I continued to offer but she refused further PO. A: 1. Functional swallow 2. Failure to thrive 3. abnormal electrolytes in setting of heart failure, NSTEMI, elevated BNP, etc.. P/Rec. 1. Pureed and thin liquid 2.3. Goal of care discussion DAILY ESTIMATED NEEDS: Needs based on Cardiac, pulmonary/ 51kg abw 25-30 kcals/kg 3548-8329 total kcals 1-1.5 g protein/kg 51-76 g total protein 20-25 mL/kg 6815-7836 total fluid mLs NUTRITION DIAGNOSIS: Swallowing difficulty R/T dysphagia, decreased cognitive fxn as evidenced by [facility] recommends pureed moist texture diet at this time. CURRENT DIET:NPO PO DIET RECOMMENDATIONS: Liberalized REGULAR w/ poor PO (texture per [facility]) ADDITIONAL RECOMMENDATIONS: * Calibrated bedscale wt * Monitor PO intake: refusing meds and foods at this time -> rec nonoral feeds w/ continued refusal of PO if part of POC * LOW NA diet w/ PO intake consistently >50% * 4 oz Ensure TID w/ meals (4oz at this time due to poor acceptance, may increase to 8oz w/ good acceptance) (8) Pneumonia due to COVID-19 virus Assessment & Plan: here appears to be increased left pleural fluid and generalized hazy parenchymal opacity, left greater than right. Heart remains enlarged Impression: Increased left pleural effusion Suspect increasing bilateral left greater than right pulmonary edema versus infiltrates (9) Hypothyroidism Jim Orosco Oct 31, 2020 10:11
[2020-10-31 10:14] LABS: POTASSIUM 2.7 MMOL/L (3.5-5.1)
--- NOTE | 2020-10-31 10:16 | Diagnostic Imaging Report ---
EXAM: XR Chest, 1 View CLINICAL HISTORY: ABN CHST TECHNIQUE: Frontal view of the chest. COMPARISON: 10/30/20 FINDINGS: Lungs: There is improving mild perihilar pulmonary edema. Pleural space: There is slight increase of mild left pleural effusion. Heart: There is unchanged cardiomegaly. Mediastinum: Unremarkable. Bones/joints: Unremarkable. Tubes, lines and devices: There is a left-sided central venous catheter in unchanged position. Small left pleural effusion. IMPRESSION: 1. There is improving mild perihilar pulmonary edema. 2. There is slight increase of mild left pleural effusion.
--- NOTE | 2020-10-31 10:21 | NUR ---
NURSE NOTES: 1 [facility] blood transfusion order obtained from Dr. Ma. Today's hgb level of 7.8
--- NOTE | 2020-10-31 11:11 | NUR ---
RESPIRATORY NOTE: Bruise noted on bridge of nose. Tape and gel in place to relive pressure. RN aware.
--- NOTE | 2020-10-31 11:30 | NUR ---
NURSE NOTES: Started 1 [facility] blood transfusion. Vital signs stable. Will continue to monitor.
--- NOTE | 2020-10-31 12:03 | Pulmonology Progress Note ---
Subjective ROS Limited/Unobtainable: No Interval Events: hypotensive, in ICU; unresponsive; on BiPAP Constitutional: Reports: fever HEENT: Repors: no symptoms Respiratory: Reports: no symptoms Cardiovascular: Reports: no symptoms Gastrointestinal/Abdominal: Reports: other Psychiatric: Reports: other - refusing medications; s/p PEG Allergies: Coded Allergies: No Known Allergies (Unverified , 10/17/20) All Systems: reviewed and negative except above Objective Last 24 Hour Vital Signs Date Time Temp Pulse Resp B/P (MAP) Pulse Ox O2 Delivery O2 Flow Rate FiO2 10/31/20 11:30 80 21 106/65 (79) 98 10/31/20 11:15 79 21 108/53 (71) 97 10/31/20 11:13 80 21 98 30 10/31/20 11:00 79 20 115/48 (70) 98 10/31/20 10:00 85 22 102/48 (66) 98 10/31/20 09:45 83 23 112/42 (65) 98 10/31/20 09:30 80 19 109/40 (63) 99 10/31/20 09:16 86 22 98 30 10/31/20 09:15 78 21 100/74 (83) 98 10/31/20 09:00 97.3 78 19 106/46 (66) 99 10/31/20 08:20 76 10/31/20 08:00 30 10/31/20 08:00 Bi-pap 2.0 Bi-pap Bi-pap 10/31/20 08:00 76 19 104/42 (62) 99 10/31/20 07:54 77 10/31/20 07:29 80 21 99 30 10/31/20 07:00 77 19 103/50 (67) 99 10/31/20 06:30 80 18 96/51 (66) 99 10/31/20 06:15 80 22 109/46 (67) 98 10/31/20 06:00 80 21 112/59 (76) 99 10/31/20 05:30 80 20 114/58 (76) 99 10/31/20 05:10 74 12 98 30 10/31/20 05:00 73 19 103/45 (64) 98 10/31/20 04:30 83 21 95/50 (65) 98 10/31/20 04:00 Bi-pap 2.0 Bi-pap Bi-pap 10/31/20 04:00 83 10/31/20 04:00 96.6 81 23 103/46 (65) 97 10/31/20 04:00 112/63 10/31/20 04:00 30 10/31/20 03:30 84 21 110/44 (66) 97 10/31/20 03:16 89 16 98 30 10/31/20 03:00 83 21 118/52 (74) 97 10/31/20 03:00 97/51 10/31/20 02:30 86 20 117/61 (79) 97 10/31/20 02:00 93 21 124/53 (76) 98 10/31/20 02:00 124/53 10/31/20 01:30 90 18 143/51 (81) 100 10/31/20 01:00 84 17 125/56 (79) 98 10/31/20 01:00 112/50 10/31/20 00:30 85 16 115/56 (75) 98 10/31/20 00:00 123/63 10/31/20 00:00 30 10/31/20 00:00 Bi-pap 2.0 Bi-pap Bi-pap 10/31/20 00:00 97.0 88 17 96/47 (63) 99 10/31/20 00:00 99 10/30/20 23:57 84 16 100 30 10/30/20 23:30 82 20 82/17 (38) 100 10/30/20 23:00 88 17 92/48 (63) 100 10/30/20 23:00 103/53 10/30/20 22:30 92 18 92/42 (59) 99 10/30/20 22:00 93/43 10/30/20 22:00 96 15 93/43 (60) 99 10/30/20 21:58 88 14 100 30 10/30/20 21:30 100 21 91/37 (55) 97 10/30/20 21:00 100 18 91/47 (62) 99 10/30/20 21:00 91/47 10/30/20 20:30 93/43 10/30/20 20:30 94 17 97/35 (55) 99 10/30/20 20:00 Bi-pap 2.0 Bi-pap Bi-pap 10/30/20 20:00 98/41 10/30/20 20:00 106 10/30/20 20:00 96.6 98 20 98/41 (60) 99 10/30/20 20:00 30 10/30/20 19:52 99 12 98 30 10/30/20 19:30 100 23 106/50 (68) 98 10/30/20 19:00 98/35 10/30/20 19:00 100 22 98/35 (56) 99 10/30/20 18:59 116 22 98/35 (56) 98 10/30/20 18:00 84 15 92/25 (47) 100 10/30/20 18:00 92/25 10/30/20 17:16 104 18 101/28 (52) 96 10/30/20 17:00 113 18 79/40 (53) 96 10/30/20 17:00 79/40 10/30/20 16:00 109 10/30/20 16:00 98.2 106 19 109/44 (65) 100 10/30/20 16:00 109/44 10/30/20 16:00 30 10/30/20 16:00 Bi-pap 2.0 Bi-pap Bi-pap 10/30/20 15:45 91/37 10/30/20 15:00 87 21 113/48 (69) 100 10/30/20 15:00 113/48 10/30/20 14:00 97.3 101 17 100/39 (59) 100 10/30/20 14:00 100/38 10/30/20 13:00 92 18 92/31 (51) 100 10/30/20 13:00 92/31 10/30/20 12:06 88 29 90 30 Intake and Output 10/30/20 10/31/20 19:00 07:00 Intake Total 2755.545 ml 2608.458 ml Output Total 170 ml Balance 2585.545 ml 2608.458 ml Free Water 50 ml 80 ml IV Total 2315.545 ml 1908.458 ml Tube Feeding 390 ml 620 ml Output Urine Total 170 ml # Voids 450 510 # Bowel Movements 2 1 General Appearance: no acute distress HEENT: atraumatic Respiratory: lungs clear Cardiovascular: normal rate, regular rhythm Abdomen: soft, non tender, other - s/p PEG Laboratory Tests 10/31/20 06:00: White Blood Count 4.4L, Red Blood Count 2.65L, Hemoglobin 7.9L, Hematocrit 25.3L , Mean Corpuscular Volume 96, Mean Corpuscular Hemoglobin 29.8, Mean Corpuscular Hemoglobin Concent 31.2L, Red Cell Distribution Width 19.2H, Platelet Count 134L , Mean Platelet Volume 8.0, Neutrophils (%) (Auto) , Lymphocytes (%) (Auto) , Monocytes (%) (Auto) , Eosinophils (%) (Auto) , Basophils (%) (Auto) , Differential Total Cells Counted 100, Neutrophils % (Manual) 79H, Lymphocytes % (Manual) 10L, Monocytes % (Manual) 8, Eosinophils % (Manual) 0, Basophils % (Manual) 0, Band Neutrophils 3, Platelet Estimate DecreasedL, Platelet Morphology Normal, Hypochromasia 1+, Anisocytosis 2+, Prothrombin Time 11.8H, Prothromb Time International Ratio 1.1, Sodium Level 141, Potassium Level 2.7*L, Chloride Level 109H, Carbon Dioxide Level 21, Anion Gap 12, Blood Urea Nitrogen 35H, Creatinine 2.0H, Estimat Glomerular Filtration Rate 23.8, Glucose Level 135H, Calcium Level 7.5L 10/31/20 08:03: Arterial Blood pH 7.119*L, Arterial Blood Partial Pressure CO2 52.1H, Arterial Blood Partial Pressure O2 86.7, Arterial Blood HCO3 16.5*L, Arterial Blood Oxygen Saturation 94.5L, Arterial Blood Base Excess -12.2*L, Gallo Test Positive 10/31/20 09:25: White Blood Count 4.5L, Red Blood Count 2.69L, Hemoglobin 7.8L, Hematocrit 25.5L , Mean Corpuscular Volume 95, Mean Corpuscular Hemoglobin 29.1, Mean Corpuscular Hemoglobin Concent 30.7L, Red Cell Distribution Width 19.1H, Platelet Count 127L , Mean Platelet Volume 8.4, Neutrophils (%) (Auto) , Lymphocytes (%) (Auto) , Monocytes (%) (Auto) , Eosinophils (%) (Auto) , Basophils (%) (Auto) , Differential Total Cells Counted 100, Neutrophils % (Manual) 78H, Lymphocytes % (Manual) 11L, Monocytes % (Manual) 4, Eosinophils % (Manual) 2, Basophils % (Manual) 0, Band Neutrophils 5, Platelet Estimate DecreasedL, Platelet Morphology Normal, Hypochromasia 1+, Anisocytosis 1+, Sodium Level 141, Potassium Level 2.7*L, Chloride Level 109H, Carbon Dioxide Level 19L, Anion Gap 12, Blood Urea Nitrogen 38H, Creatinine 2.0H, Estimat Glomerular Filtration Rate 23.8, Glucose Level 141H, Calcium Level 7.5L, Total Bilirubin 0.3, Aspartate Amino Transf (AST/SGOT) 9L, Alanine Aminotransferase (ALT/SGPT) 8L, Alkaline Phosphatase 53, Total Protein 4.8L, Albumin 2.3L, Globulin 2.5, Albumin/Globulin Ratio 0.9L Current Medications Medications (Trade) Dose Ordered Sig/Yolanda Route PRN Reason Start Time Stop Time Status Last Admin Dose Admin Acetaminophen (Tylenol) 500 mg Q6HR PRN ORAL Mild Pain 1-3 10/17/20 17:45 11/16/20 17:44 Acetaminophen (Tylenol) 500 mg Q6HR PRN ORAL fever >100 10/17/20 18:00 11/16/20 17:59 Acetaminophen (Tylenol) 650 mg Q4H PRN ORAL Pain Scale (6-10) 10/17/20 19:15 11/16/20 19:14 Apixaban (Eliquis) 2.5 mg BID ORAL 10/24/20 18:00 01/22/21 17:59 10/30/20 17:45 Chlorhexidine Gluconate (Eve-Hex 2%) 1 applic DAILY@2000 TOPIC 10/22/20 20:00 01/20/21 19:59 10/30/20 20:00 Dextrose/Sodium Chloride 1,000 ml @ 100 mls/hr Q10H IV 10/25/20 12:00 11/24/20 11:59 10/31/20 08:20 Digoxin (Lanoxin) 0.125 mg DAILY GT 10/30/20 09:00 01/28/21 08:59 10/31/20 08:20 Levothyroxine Sodium (Synthroid) 50 mcg DAILY@0630 ORAL 10/19/20 06:30 11/18/20 06:29 10/31/20 05:24 Norepinephrine Bitartrate 8 mg/ Dextrose 558 ml @ 0 mls/hr Q24H IV 10/29/20 11:00 11/01/20 10:59 10/30/20 20:30 Ondansetron HCl (Zofran) 4 mg Q6H PRN IVP Nausea & Vomiting 10/17/20 21:15 11/16/20 21:14 Pantoprazole (Protonix) 40 mg DAILY IVP 11/01/20 09:00 11/25/20 20:59 Piperacillin Sod/ Tazobactam Sod 3.375 gm/Sodium Chloride 110 ml @ 27.5 mls/hr Q12H IVPB 10/26/20 14:00 11/02/20 13:59 10/31/20 01:59 Assessment/Plan Assessment/Plan 1. CHF. 2. CAD/previous non-STEMI. 3. custodial resident. 4. Bradycardia. 5. Atrial fibrillation. -Started on Eliquis 6. Renal insufficiency. -Nephro following 7. Troponin leak. - Cardio following 8. COVID-19 pneumonia, without fever or leukocytosis - Now on BiPAP - noted hypercapnia and resp acidosis on ABG today; repeat ABG borderline... 9. Hypoxemia 10. 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 UTI, cheryl 12. Dysphagia -s/p PEG (10/23) 13. Hypotension; improved - s/p NS bolus - pressors as needed - will diurese May require intubation Carlos Woods MD Oct 31, 2020 12:02
--- NOTE | 2020-10-31 12:27 | Infectious Diseases Prog Note ---
Assessment/Plan Assessment/Plan IMPRESSION: Pneumonia Hypercapnic respiratory failure Recent history of COVID disease, Acute renal failure, Severe aortic stenosis Atrial fibrillation, hypothyroidism, Anemia. Chronic DVT of R leg Hypotension Gastrostomy status Respiratory acidosis RECOMMENDATION: Continue Zosyn Subjective ROS Limited/Unobtainable: Yes Cardiovascular: Reports: other - has central line placement Allergies: Coded Allergies: No Known Allergies (Unverified , 10/17/20) Objective Last 24 Hour Vital Signs Date Time Temp Pulse Resp B/P (MAP) Pulse Ox O2 Delivery O2 Flow Rate FiO2 10/31/20 12:00 30 10/31/20 12:00 Bi-pap 2.0 Bi-pap Bi-pap 10/31/20 11:30 80 21 106/65 (79) 98 10/31/20 11:15 79 21 108/53 (71) 97 10/31/20 11:13 80 21 98 30 10/31/20 11:00 79 20 115/48 (70) 98 10/31/20 10:00 85 22 102/48 (66) 98 10/31/20 09:45 83 23 112/42 (65) 98 10/31/20 09:30 80 19 109/40 (63) 99 10/31/20 09:16 86 22 98 30 10/31/20 09:15 78 21 100/74 (83) 98 10/31/20 09:00 97.3 78 19 106/46 (66) 99 10/31/20 08:20 76 10/31/20 08:00 30 10/31/20 08:00 Bi-pap 2.0 Bi-pap Bi-pap 10/31/20 08:00 76 19 104/42 (62) 99 10/31/20 07:54 77 10/31/20 07:29 80 21 99 30 10/31/20 07:00 77 19 103/50 (67) 99 10/31/20 06:30 80 18 96/51 (66) 99 10/31/20 06:15 80 22 109/46 (67) 98 10/31/20 06:00 80 21 112/59 (76) 99 10/31/20 05:30 80 20 114/58 (76) 99 10/31/20 05:10 74 12 98 30 10/31/20 05:00 73 19 103/45 (64) 98 10/31/20 04:30 83 21 95/50 (65) 98 10/31/20 04:00 Bi-pap 2.0 Bi-pap Bi-pap 10/31/20 04:00 83 10/31/20 04:00 96.6 81 23 103/46 (65) 97 10/31/20 04:00 112/63 10/31/20 04:00 30 10/31/20 03:30 84 21 110/44 (66) 97 10/31/20 03:16 89 16 98 30 10/31/20 03:00 83 21 118/52 (74) 97 10/31/20 03:00 97/51 10/31/20 02:30 86 20 117/61 (79) 97 10/31/20 02:00 93 21 124/53 (76) 98 10/31/20 02:00 124/53 10/31/20 01:30 90 18 143/51 (81) 100 10/31/20 01:00 84 17 125/56 (79) 98 10/31/20 01:00 112/50 10/31/20 00:30 85 16 115/56 (75) 98 10/31/20 00:00 123/63 10/31/20 00:00 30 10/31/20 00:00 Bi-pap 2.0 Bi-pap Bi-pap 10/31/20 00:00 97.0 88 17 96/47 (63) 99 10/31/20 00:00 99 10/30/20 23:57 84 16 100 30 10/30/20 23:30 82 20 82/17 (38) 100 10/30/20 23:00 88 17 92/48 (63) 100 10/30/20 23:00 103/53 10/30/20 22:30 92 18 92/42 (59) 99 10/30/20 22:00 93/43 10/30/20 22:00 96 15 93/43 (60) 99 10/30/20 21:58 88 14 100 30 10/30/20 21:30 100 21 91/37 (55) 97 10/30/20 21:00 100 18 91/47 (62) 99 10/30/20 21:00 91/47 10/30/20 20:30 93/43 10/30/20 20:30 94 17 97/35 (55) 99 10/30/20 20:00 Bi-pap 2.0 Bi-pap Bi-pap 10/30/20 20:00 98/41 10/30/20 20:00 106 10/30/20 20:00 96.6 98 20 98/41 (60) 99 10/30/20 20:00 30 10/30/20 19:52 99 12 98 30 10/30/20 19:30 100 23 106/50 (68) 98 10/30/20 19:00 98/35 10/30/20 19:00 100 22 98/35 (56) 99 10/30/20 18:59 116 22 98/35 (56) 98 10/30/20 18:00 84 15 92/25 (47) 100 10/30/20 18:00 92/10/30/20 17:16 104 18 101/28 (52) 96 10/30/20 17:00 113 18 79/40 (53) 96 10/30/20 17:00 79/40 10/30/20 16:00 109 10/30/20 16:00 98.2 106 19 109/44 (65) 100 10/30/20 16:00 109/44 10/30/20 16:00 30 10/30/20 16:00 Bi-pap 2.0 Bi-pap Bi-pap 10/30/20 15:45 91/37 10/30/20 15:00 87 21 113/48 (69) 100 10/30/20 15:00 113/48 10/30/20 14:00 97.3 101 17 100/39 (59) 100 10/30/20 14:00 100/38 10/30/20 13:00 92 18 92/31 (51) 100 10/30/20 13:00 92/31 Height (Feet): 5 Height (Inches): 0.00 Weight (Pounds): 145 HEENT: mucous membranes moist Respiratory/Chest: decreased breath sounds, other - on BIPAP Cardiovascular: normal rate, other - Left subclavian line Abdomen: soft, non tender, other - GT Extremities: other - generalized edema Neurologic/Psychiatric: unresponsiveness Laboratory Tests Test 10/31/20 06:00 10/31/20 08:03 10/31/20 09:25 White Blood Count 4.4 K/UL (4.8-10.8) L 4.5 K/UL (4.8-10.8) L Red Blood Count 2.65 M/UL (4.20-5.40) L 2.69 M/UL (4.20-5.40) L Hemoglobin 7.9 G/DL (12.0-16.0) L 7.8 G/DL (12.0-16.0) L Hematocrit 25.3 % (37.0-47.0) L 25.5 % (37.0-47.0) L Mean Corpuscular Volume 96 FL (80-99) 95 FL (80-99) Mean Corpuscular Hemoglobin 29.8 PG (27.0-31.0) 29.1 PG (27.0-31.0) Mean Corpuscular Hemoglobin Concent 31.2 G/DL (32.0-36.0) L 30.7 G/DL (32.0-36.0) L Red Cell Distribution Width 19.2 % (11.6-14.8) H 19.1 % (11.6-14.8) H Platelet Count 134 K/UL (150-450) L 127 K/UL (150-450) L Mean Platelet Volume 8.0 FL (6.5-10.1) 8.4 FL (6.5-10.1) Neutrophils (%) (Auto) % (45.0-75.0) % (45.0-75.0) Lymphocytes (%) (Auto) % (20.0-45.0) % (20.0-45.0) Monocytes (%) (Auto) % (1.0-10.0) % (1.0-10.0) Eosinophils (%) (Auto) % (0.0-3.0) % (0.0-3.0) Basophils (%) (Auto) % (0.0-2.0) % (0.0-2.0) Differential Total Cells Counted 100 100 Neutrophils % (Manual) 79 % (45-75) H 78 % (45-75) H Lymphocytes % (Manual) 10 % (20-45) L 11 % (20-45) L Monocytes % (Manual) 8 % (1-10) 4 % (1-10) Eosinophils % (Manual) 0 % (0-3) 2 % (0-3) Basophils % (Manual) 0 % (0-2) 0 % (0-2) Band Neutrophils 3 % (0-8) 5 % (0-8) Platelet Estimate Decreased L Decreased L Platelet Morphology Normal Normal Hypochromasia 1+ 1+ Anisocytosis 2+ 1+ Prothrombin Time 11.8 SEC (9.30-11.50) H Prothromb Time International Ratio 1.1 (0.9-1.1) Sodium Level 141 MMOL/L (136-145) 141 MMOL/L (136-145) Potassium Level 2.7 MMOL/L (3.5-5.1) *L 2.7 MMOL/L (3.5-5.1) *L Chloride Level 109 MMOL/L (98-107) H 109 MMOL/L (98-107) H Carbon Dioxide Level 21 MMOL/L (21-32) 19 MMOL/L (21-32) L Anion Gap 12 mmol/L (5-15) 12 mmol/L (5-15) Blood Urea Nitrogen 35 mg/dL (7-18) H 38 mg/dL (7-18) H Creatinine 2.0 MG/DL (0.55-1.30) H 2.0 MG/DL (0.55-1.30) H Estimat Glomerular Filtration Rate 23.8 mL/min (>60) 23.8 mL/min (>60) Glucose Level 135 MG/DL (74-106) H 141 MG/DL (74-106) H Calcium Level 7.5 MG/DL (8.5-10.1) L 7.5 MG/DL (8.5-10.1) L Arterial Blood pH 7.119 (7.350-7.450) Arterial Blood Partial Pressure CO2 52.1 mmHg (35.0-45.0) H Arterial Blood Partial Pressure O2 86.7 mmHg (75.0-100.0) Arterial Blood HCO3 16.5 mmol/L (22.0-26.0) *L Arterial Blood Oxygen Saturation 94.5 % (95-100) L Arterial Blood Base Excess -12.2 (-2-2) *L Gallo Test Positive Total Bilirubin 0.3 MG/DL (0.2-1.0) Aspartate Amino Transf (AST/SGOT) 9 U/L (15-37) L Alanine Aminotransferase (ALT/SGPT) 8 U/L (12-78) L Alkaline Phosphatase 53 U/L (46-116) Total Protein 4.8 G/DL (6.4-8.2) L Albumin 2.3 G/DL (3.4-5.0) L Globulin 2.5 g/dL Albumin/Globulin Ratio 0.9 (1.0-2.7) L Current Medications Medications (Trade) Dose Ordered Sig/Yolanda Route PRN Reason Start Time Stop Time Status Last Admin Dose Admin Acetaminophen (Tylenol) 500 mg Q6HR PRN ORAL Mild Pain 1-3 10/17/20 17:45 11/16/20 17:44 Acetaminophen (Tylenol) 500 mg Q6HR PRN ORAL fever >100 10/17/20 18:00 11/16/20 17:59 Acetaminophen (Tylenol) 650 mg Q4H PRN ORAL Pain Scale (6-10) 10/17/20 19:15 11/16/20 19:14 Apixaban (Eliquis) 2.5 mg BID ORAL 10/24/20 18:00 01/22/21 17:59 10/30/20 17:45 Chlorhexidine Gluconate (Eve-Hex 2%) 1 applic DAILY@2000 TOPIC 10/22/20 20:00 01/20/21 19:59 10/30/20 20:00 Digoxin (Lanoxin) 0.125 mg DAILY GT 10/30/20 09:00 01/28/21 08:59 10/31/20 08:20 Furosemide (Lasix) 40 mg EVERY 8 HOURS IV 10/31/20 14:00 11/30/20 13:59 Furosemide (Lasix) 40 mg ONCE IV 10/31/20 12:15 10/31/20 13:15 10/31/20 12:19 Levothyroxine Sodium (Synthroid) 50 mcg DAILY@0630 ORAL 10/19/20 06:30 11/18/20 06:29 10/31/20 05:24 Norepinephrine Bitartrate 8 mg/ Dextrose 558 ml @ 0 mls/hr Q24H IV 10/29/20 11:00 11/01/20 10:59 10/30/20 20:30 Ondansetron HCl (Zofran) 4 mg Q6H PRN IVP Nausea & Vomiting 10/17/20 21:15 11/16/20 21:14 Pantoprazole (Protonix) 40 mg DAILY IVP 11/01/20 09:00 11/25/20 20:59 Piperacillin Sod/ Tazobactam Sod 3.375 gm/Sodium Chloride 110 ml @ 27.5 mls/hr Q12H IVPB 10/26/20 14:00 11/02/20 13:59 10/31/20 01:59 Potassium Chloride (K-Dur) 40 meq ONCE ORAL 10/31/20 12:00 10/31/20 13:00 10/31/20 12:19 Luis Alvarado MD Oct 31, 2020 12:27
--- NOTE | 2020-10-31 13:00 | NUR ---
NURSE NOTES: Dr. Dumont at bedside.
--- NOTE | 2020-10-31 13:27 | Nephrology Progress Note ---
Assessment/Plan Problem List: (1) Acute kidney injury (2) Anemia (3) Hyperkalemia (4) Elevated troponin (5) Pneumonia due to COVID-19 virus (6) Hypothyroidism Assessment Plan October 31: Patient seen in ICU. Discussed with SERGIO Miller. ABG noted. Patient acidotic. Being transfused. Potassium is being replaced. Due for another ABG and possible intubation if needed. Conferred with pulmonary and cardiology. October 30: Labs reviewed. Potassium elevated. Kayexalate ordered. Continue to monitor hemoglobin hematocrit and renal parameters. Serum creatinine 2.1. Remains on BiPAP. October 29: Seen in ICU. Discussed with SERGIO Wilkerson. Hemoglobin low. Transfuse 1 unit of packed RBCs. Potassium supplements IV given. Midodrine discontinued. Serum creatinine 2.2 stable. Patient remains on BiPAP. Continue per cons ultants. Continue to monitor hemoglobin hematocrit electrolytes and renal parameters. October 28: Seen in ICU. Remains on BiPAP. Low potassium and low magnesium addressed. Serum creatinine plateaued at 2.2. Continue per current treatment plan. October 27: Patient in ICU. On BiPAP. Serum creatinine rising. Blood pressure more stable. Will give 100 mg Lasix IV push with the hope of reversing oliguria. Medication list reviewed. Continue to monitor renal parameters. October 26: Seen in ICU. On pressors for low blood pressure. Serum creatinine 2.1. Albumin bolus given. Stress dose of steroids initiated. Continue to monitor renal parameters. Continue per consultants. October 25: Patient seen and examined. Trendelenburg. Blood pressure low. Tachycardic. Discussed with RN. Patient to be transferred to ICU. Discussed with ICU charge nurse and hospital charge nurse. Meanwhile patient started on Albumin bolus and 100 cc an hour D5 normal saline. Patient to be started on pressors while in ICU. Patient full code. October 24: No CHEM panel drawn today.. Renal parameters stable. Patient had a GT placed yesterday. Will check labs tomorrow. Medication list reviewed. October 23: Labs reviewed. Renal parameters unchanged. Creatinine 1.9. Continue current management. Medication list reviewed. October 22: Labs reviewed. Serum creatinine lower at 1.8. Patient started on clear liquid. Patient refuses p.o. medications and food at times. Continue per consultants. October 21: Labs reviewed. Serum creatinine unchanged. Continue per consultants. Continue to monitor renal parameters. October 20: Today's labs reviewed. Serum creatinine unchanged. RN reports patient not taking any p.o. meds. Continue per consultants. Serum creatinine appears to be baseline. October 19: Today's labs still not done yet. RN informed. Albumin bolus given again. Continue to monitor electrolytes and renal parameters. Per orders October 18: Patient hypotensive. Due for blood transfusion. Will give albumin bolus. Continue to monitor renal parameters and electrolytes. Labs and medication list reviewed Subjective ROS Limited/Unobtainable: Yes Objective Objective Last 24 Hour Vital Signs Date Time Temp Pulse Resp B/P (MAP) Pulse Ox O2 Delivery O2 Flow Rate FiO2 10/31/20 13:14 94 24 99 30 10/31/20 13:00 80 25 117/58 (77) 95 10/31/20 12:30 85 19 129/44 (72) 97 10/31/20 12:15 79 22 113/51 (71) 99 10/31/20 12:00 30 10/31/20 12:00 97.5 85 21 114/55 (74) 97 10/31/20 12:00 Bi-pap 2.0 Bi-pap Bi-pap 10/31/20 11:45 81 22 119/43 (68) 99 10/31/20 11:30 80 21 106/65 (79) 98 10/31/20 11:23 71 10/31/20 11:15 79 21 108/53 (71) 97 10/31/20 11:13 80 21 98 30 10/31/20 11:00 79 20 115/48 (70) 98 10/31/20 10:00 85 22 102/48 (66) 98 10/31/20 09:45 83 23 112/42 (65) 98 10/31/20 09:30 80 19 109/40 (63) 99 10/31/20 09:16 86 22 98 30 10/31/20 09:15 78 21 100/74 (83) 98 10/31/20 09:00 97.3 78 19 106/46 (66) 99 10/31/20 08:20 76 10/31/20 08:00 30 10/31/20 08:00 Bi-pap 2.0 Bi-pap Bi-pap 10/31/20 08:00 76 19 104/42 (62) 99 10/31/20 07:54 77 10/31/20 07:29 80 21 99 30 10/31/20 07:00 77 19 103/50 (67) 99 10/31/20 06:30 80 18 96/51 (66) 99 10/31/20 06:15 80 22 109/46 (67) 98 10/31/20 06:00 80 21 112/59 (76) 99 10/31/20 05:30 80 20 114/58 (76) 99 10/31/20 05:10 74 12 98 30 10/31/20 05:00 73 19 103/45 (64) 98 10/31/20 04:30 83 21 95/50 (65) 98 10/31/20 04:00 Bi-pap 2.0 Bi-pap Bi-pap 10/31/20 04:00 83 10/31/20 04:00 96.6 81 23 103/46 (65) 97 10/31/20 04:00 112/63 10/31/20 04:00 30 10/31/20 03:30 84 21 110/44 (66) 97 10/31/20 03:16 89 16 98 30 10/31/20 03:00 83 21 118/52 (74) 97 10/31/20 03:00 97/51 10/31/20 02:30 86 20 117/61 (79) 97 10/31/20 02:00 93 21 124/53 (76) 98 10/31/20 02:00 124/53 10/31/20 01:30 90 18 143/51 (81) 100 10/31/20 01:00 84 17 125/56 (79) 98 10/31/20 01:00 112/50 10/31/20 00:30 85 16 115/56 (75) 98 10/31/20 00:00 123/63 10/31/20 00:00 30 10/31/20 00:00 Bi-pap 2.0 Bi-pap Bi-pap 10/31/20 00:00 97.0 88 17 96/47 (63) 99 10/31/20 00:00 99 10/30/20 23:57 84 16 100 30 10/30/20 23:30 82 20 82/17 (38) 100 10/30/20 23:00 88 17 92/48 (63) 100 10/30/20 23:00 103/53 10/30/20 22:30 92 18 92/42 (59) 99 10/30/20 22:00 93/43 10/30/20 22:00 96 15 93/43 (60) 99 10/30/20 21:58 88 14 100 30 10/30/20 21:30 100 21 91/37 (55) 97 10/30/20 21:00 100 18 91/47 (62) 99 10/30/20 21:00 91/47 10/30/20 20:30 93/43 10/30/20 20:30 94 17 97/35 (55) 99 10/30/20 20:00 Bi-pap 2.0 Bi-pap Bi-pap 10/30/20 20:00 98/41 10/30/20 20:00 106 10/30/20 20:00 96.6 98 20 98/41 (60) 99 10/30/20 20:00 30 10/30/20 19:52 99 12 98 30 10/30/20 19:30 100 23 106/50 (68) 98 10/30/20 19:00 98/35 10/30/20 19:00 100 22 98/35 (56) 99 10/30/20 18:59 116 22 98/35 (56) 98 10/30/20 18:00 84 15 92/25 (47) 100 10/30/20 18:00 92/25 10/30/20 17:16 104 18 101/28 (52) 96 10/30/20 17:00 113 18 79/40 (53) 96 10/30/20 17:00 79/40 10/30/20 16:00 109 10/30/20 16:00 98.2 106 19 109/44 (65) 100 10/30/20 16:00 109/44 10/30/20 16:00 30 10/30/20 16:00 Bi-pap 2.0 Bi-pap Bi-pap 10/30/20 15:45 91/37 10/30/20 15:00 87 21 113/48 (69) 100 10/30/20 15:00 113/48 10/30/20 14:00 97.3 101 17 100/39 (59) 100 10/30/20 14:00 100/38 Intake and Output 10/30/20 10/31/20 19:00 07:00 Intake Total 2755.545 ml 2608.458 ml Output Total 170 ml Balance 2585.545 ml 2608.458 ml Free Water 50 ml 80 ml IV Total 2315.545 ml 1908.458 ml Tube Feeding 390 ml 620 ml Output Urine Total 170 ml # Voids 450 510 # Bowel Movements 2 1 Current Medications Medications (Trade) Dose Ordered Sig/Yolanda Route PRN Reason Start Time Stop Time Status Last Admin Dose Admin Acetaminophen (Tylenol) 500 mg Q6HR PRN ORAL Mild Pain 1-3 10/17/20 17:45 11/16/20 17:44 Acetaminophen (Tylenol) 500 mg Q6HR PRN ORAL fever >100 10/17/20 18:00 11/16/20 17:59 Acetaminophen (Tylenol) 650 mg Q4H PRN ORAL Pain Scale (6-10) 10/17/20 19:15 11/16/20 19:14 Apixaban (Eliquis) 2.5 mg BID ORAL 10/24/20 18:00 01/22/21 17:59 10/30/20 17:45 Chlorhexidine Gluconate (Eve-Hex 2%) 1 applic DAILY@1999 TOPIC 10/22/20 20:00 01/20/21 19:59 10/30/20 20:00 Digoxin (Lanoxin) 0.125 mg DAILY GT 10/30/20 09:00 01/28/21 08:59 10/31/20 08:20 Furosemide (Lasix) 40 mg EVERY 8 HOURS IV 10/31/20 14:00 11/30/20 13:59 Levothyroxine Sodium (Synthroid) 50 mcg DAILY@0630 ORAL 10/19/20 06:30 11/18/20 06:29 10/31/20 05:24 Norepinephrine Bitartrate 8 mg/ Dextrose 558 ml @ 0 mls/hr Q24H IV 10/29/20 11:00 11/01/20 10:59 10/30/20 20:30 Ondansetron HCl (Zofran) 4 mg Q6H PRN IVP Nausea & Vomiting 10/17/20 21:15 11/16/20 21:14 Pantoprazole (Protonix) 40 mg DAILY IVP 11/01/20 09:00 11/25/20 20:59 Piperacillin Sod/ Tazobactam Sod 3.375 gm/Sodium Chloride 110 ml @ 27.5 mls/hr Q12H IVPB 10/26/20 14:00 11/02/20 13:59 10/31/20 01:59 Potassium Chloride 100 ml @ 50 mls/hr Q2H IVPB 10/31/20 15:00 10/31/20 18:59 Laboratory Tests 10/31/20 06:00: White Blood Count 4.4L, Red Blood Count 2.65L, Hemoglobin 7.9L, Hematocrit 25.3L , Mean Corpuscular Volume 96, Mean Corpuscular Hemoglobin 29.8, Mean Corpuscular Hemoglobin Concent 31.2L, Red Cell Distribution Width 19.2H, Platelet Count 134L , Mean Platelet Volume 8.0, Neutrophils (%) (Auto) , Lymphocytes (%) (Auto) , Monocytes (%) (Auto) , Eosinophils (%) (Auto) , Basophils (%) (Auto) , Differential Total Cells Counted 100, Neutrophils % (Manual) 79H, Lymphocytes % (Manual) 10L, Monocytes % (Manual) 8, Eosinophils % (Manual) 0, Basophils % (Manual) 0, Band Neutrophils 3, Platelet Estimate DecreasedL, Platelet Morphology Normal, Hypochromasia 1+, Anisocytosis 2+, Prothrombin Time 11.8H, Prothromb Time International Ratio 1.1, Sodium Level 141, Potassium Level 2.7*L, Chloride Level 109H, Carbon Dioxide Level 21, Anion Gap 12, Blood Urea Nitrogen 35H, Creatinine 2.0H, Estimat Glomerular Filtration Rate 23.8, Glucose Level 135H, Calcium Level 7.5L 10/31/20 08:03: Arterial Blood pH 7.119*L, Arterial Blood Partial Pressure CO2 52.1H, Arterial Blood Partial Pressure O2 86.7, Arterial Blood HCO3 16.5*L, Arterial Blood Oxygen Saturation 94.5L, Arterial Blood Base Excess -12.2*L, Gallo Test Positive 10/31/20 09:25: White Blood Count 4.5L, Red Blood Count 2.69L, Hemoglobin 7.8L, Hematocrit 25.5L , Mean Corpuscular Volume 95, Mean Corpuscular Hemoglobin 29.1, Mean Corpuscular Hemoglobin Concent 30.7L, Red Cell Distribution Width 19.1H, Platelet Count 127L , Mean Platelet Volume 8.4, Neutrophils (%) (Auto) , Lymphocytes (%) (Auto) , Monocytes (%) (Auto) , Eosinophils (%) (Auto) , Basophils (%) (Auto) , Differential Total Cells Counted 100, Neutrophils % (Manual) 78H, Lymphocytes % (Manual) 11L, Monocytes % (Manual) 4, Eosinophils % (Manual) 2, Basophils % (Manual) 0, Band Neutrophils 5, Platelet Estimate DecreasedL, Platelet Morphology Normal, Hypochromasia 1+, Anisocytosis 1+, Sodium Level 141, Potassium Level 2.7*L, Chloride Level 109H, Carbon Dioxide Level 19L, Anion Gap 12, Blood Urea Nitrogen 38H, Creatinine 2.0H, Estimat Glomerular Filtration Rate 23.8, Glucose Level 141H, Calcium Level 7.5L, Total Bilirubin 0.3, Aspartate Amino Transf (AST/SGOT) 9L, Alanine Aminotransferase (ALT/SGPT) 8L, Alkaline Phosphatase 53, Total Protein 4.8L, Albumin 2.3L, Globulin 2.5, Albumin/Globulin Ratio 0.9L Height (Feet): 5 Height (Inches): 0.00 Weight (Pounds): 145 General Appearance: mild distress EENT: other - Currently on BiPAP Cardiovascular: normal rate Respiratory/Chest: decreased breath sounds Abdomen: distended Dustin Gómez MD Oct 31, 2020 13:27
--- NOTE | 2020-10-31 13:55 | Cardiac Electrophysiology PN ---
Assessment/Plan Assessment/Plan 1. NSTEMI with elevated troponin of more than 0.2. Patient has hx of prior [place] as well The level has come down to 0.19, but the levels are flat and likely due to renal failure as the creatinine is 2.1. On aspirin and off Lopressor as hypotensive 2. Atrial fibrillation with rapid ventricular response. Off Lopressor as BP in 70s. On Eliquis 2.5 bid Better after Dig 0.25 iv and on Dig 0.125 PEG daily Dig level 0.9 3. Respiratory failure on Bipap 14/01. Lasix 40 iv q 8 hr resumed today 4. Septic shock. BP in 70s. off Lopressor. Off Levophed since 3 am today 5. Renal insufficiency.Cr still 2.1 6. Status post COVID pneumonia, was tested positive more than two weeks ago. Now is negative 7. Dysphagia, S/P PEG 10/23/[address] Full code[address] DW Dr. Gómez Subjective Subjective S/P PEG by Dr. Tobar 10/23/20 In ICU off Levophed since 3 am today. Covid negative 10/25 On BIPAP 08/01. In atrial fib with rate around 100 Objective Last 24 Hour Vital Signs Date Time Temp Pulse Resp B/P (MAP) Pulse Ox O2 Delivery O2 Flow Rate FiO2 10/31/20 13:14 94 24 99 30 10/31/20 13:00 80 25 117/58 (77) 95 10/31/20 12:30 85 19 129/44 (72) 97 10/31/20 12:15 79 22 113/51 (71) 99 10/31/20 12:00 30 10/31/20 12:00 97.5 85 21 114/55 (74) 97 10/31/20 12:00 Bi-pap 2.0 Bi-pap Bi-pap 10/31/20 11:45 81 22 119/43 (68) 99 10/31/20 11:30 80 21 106/65 (79) 98 10/31/20 11:23 71 10/31/20 11:15 79 21 108/53 (71) 97 10/31/20 11:13 80 21 98 30 10/31/20 11:00 79 20 115/48 (70) 98 10/31/20 10:00 85 22 102/48 (66) 98 10/31/20 09:45 83 23 112/42 (65) 98 10/31/20 09:30 80 19 109/40 (63) 99 10/31/20 09:16 86 22 98 30 10/31/20 09:15 78 21 100/74 (83) 98 10/31/20 09:00 97.3 78 19 106/46 (66) 99 10/31/20 08:20 76 10/31/20 08:00 30 10/31/20 08:00 Bi-pap 2.0 Bi-pap Bi-pap 10/31/20 08:00 76 19 104/42 (62) 99 10/31/20 07:54 77 10/31/20 07:29 80 21 99 30 10/31/20 07:00 77 19 103/50 (67) 99 10/31/20 06:30 80 18 96/51 (66) 99 10/31/20 06:15 80 22 109/46 (67) 98 10/31/20 06:00 80 21 112/59 (76) 99 10/31/20 05:30 80 20 114/58 (76) 99 10/31/20 05:10 74 12 98 30 10/31/20 05:00 73 19 103/45 (64) 98 10/31/20 04:30 83 21 95/50 (65) 98 10/31/20 04:00 Bi-pap 2.0 Bi-pap Bi-pap 10/31/20 04:00 83 10/31/20 04:00 96.6 81 23 103/46 (65) 97 10/31/20 04:00 112/63 10/31/20 04:00 30 10/31/20 03:30 84 21 110/44 (66) 97 10/31/20 03:16 89 16 98 30 10/31/20 03:00 83 21 118/52 (74) 97 10/31/20 03:00 97/51 10/31/20 02:30 86 20 117/61 (79) 97 10/31/20 02:00 93 21 124/53 (76) 98 10/31/20 02:00 124/53 10/31/20 01:30 90 18 143/51 (81) 100 10/31/20 01:00 84 17 125/56 (79) 98 10/31/20 01:00 112/50 10/31/20 00:30 85 16 115/56 (75) 98 10/31/20 00:00 123/63 10/31/20 00:00 30 10/31/20 00:00 Bi-pap 2.0 Bi-pap Bi-pap 10/31/20 00:00 97.0 88 17 96/47 (63) 99 10/31/20 00:00 99 10/30/20 23:57 84 16 100 30 10/30/20 23:30 82 20 82/17 (38) 100 10/30/20 23:00 88 17 92/48 (63) 100 10/30/20 23:00 103/53 10/30/20 22:30 92 18 92/42 (59) 99 10/30/20 22:00 93/43 10/30/20 22:00 96 15 93/43 (60) 99 10/30/20 21:58 88 14 100 30 10/30/20 21:30 100 21 91/37 (55) 97 10/30/20 21:00 100 18 91/47 (62) 99 10/30/20 21:00 91/47 10/30/20 20:30 93/43 10/30/20 20:30 94 17 97/35 (55) 99 10/30/20 20:00 Bi-pap 2.0 Bi-pap Bi-pap 10/30/20 20:00 98/41 10/30/20 20:00 106 10/30/20 20:00 96.6 98 20 98/41 (60) 99 10/30/20 20:00 30 10/30/20 19:52 99 12 98 30 10/30/20 19:30 100 23 106/50 (68) 98 10/30/20 19:00 98/35 10/30/20 19:00 100 22 98/35 (56) 99 10/30/20 18:59 116 22 98/35 (56) 98 10/30/20 18:00 84 15 92/25 (47) 100 10/30/20 18:00 92/25 10/30/20 17:16 104 18 101/28 (52) 96 10/30/20 17:00 113 18 79/40 (53) 96 10/30/20 17:00 79/40 10/30/20 16:00 109 3/5/21 16:00 98.2 106 19 109/44 (65) 100 10/30/20 16:00 109/44 10/30/20 16:00 30 10/30/20 16:00 Bi-pap 2.0 Bi-pap Bi-pap 10/30/20 15:45 91/37 10/30/20 15:00 87 21 113/48 (69) 100 10/30/20 15:00 113/48 10/30/20 14:00 97.3 101 17 100/39 (59) 100 10/30/20 14:00 100/38 Intake and Output 10/30/20 10/31/20 19:00 07:00 Intake Total 2755.545 ml 2608.458 ml Output Total 170 ml Balance 2585.545 ml 2608.458 ml Free Water 50 ml 80 ml IV Total 2315.545 ml 1908.458 ml Tube Feeding 390 ml 620 ml Output Urine Total 170 ml # Voids 450 510 # Bowel Movements 2 1 Laboratory Tests Test 10/31/20 06:00 10/31/20 08:03 10/31/20 09:25 White Blood Count 4.4 K/UL (4.8-10.8) L 4.5 K/UL (4.8-10.8) L Red Blood Count 2.65 M/UL (4.20-5.40) L 2.69 M/UL (4.20-5.40) L Hemoglobin 7.9 G/DL (12.0-16.0) L 7.8 G/DL (12.0-16.0) L Hematocrit 25.3 % (37.0-47.0) L 25.5 % (37.0-47.0) L Mean Corpuscular Volume 96 FL (80-99) 95 FL (80-99) Mean Corpuscular Hemoglobin 29.8 PG (27.0-31.0) 29.1 PG (27.0-31.0) Mean Corpuscular Hemoglobin Concent 31.2 G/DL (32.0-36.0) L 30.7 G/DL (32.0-36.0) L Red Cell Distribution Width 19.2 % (11.6-14.8) H 19.1 % (11.6-14.8) H Platelet Count 134 K/UL (150-450) L 127 K/UL (150-450) L Mean Platelet Volume 8.0 FL (6.5-10.1) 8.4 FL (6.5-10.1) Neutrophils (%) (Auto) % (45.0-75.0) % (45.0-75.0) Lymphocytes (%) (Auto) % (20.0-45.0) % (20.0-45.0) Monocytes (%) (Auto) % (1.0-10.0) % (1.0-10.0) Eosinophils (%) (Auto) % (0.0-3.0) % (0.0-3.0) Basophils (%) (Auto) % (0.0-2.0) % (0.0-2.0) Differential Total Cells Counted 100 100 Neutrophils % (Manual) 79 % (45-75) H 78 % (45-75) H Lymphocytes % (Manual) 10 % (20-45) L 11 % (20-45) L Monocytes % (Manual) 8 % (1-10) 4 % (1-10) Eosinophils % (Manual) 0 % (0-3) 2 % (0-3) Basophils % (Manual) 0 % (0-2) 0 % (0-2) Band Neutrophils 3 % (0-8) 5 % (0-8) Platelet Estimate Decreased L Decreased L Platelet Morphology Normal Normal Hypochromasia 1+ 1+ Anisocytosis 2+ 1+ Prothrombin Time 11.8 SEC (9.30-11.50) H Prothromb Time International Ratio 1.1 (0.9-1.1) Sodium Level 141 MMOL/L (136-145) 141 MMOL/L (136-145) Potassium Level 2.7 MMOL/L (3.5-5.1) *L 2.7 MMOL/L (3.5-5.1) *L Chloride Level 109 MMOL/L (98-107) H 109 MMOL/L (98-107) H Carbon Dioxide Level 21 MMOL/L (21-32) 19 MMOL/L (21-32) L Anion Gap 12 mmol/L (5-15) 12 mmol/L (5-15) Blood Urea Nitrogen 35 mg/dL (7-18) H 38 mg/dL (7-18) H Creatinine 2.0 MG/DL (0.55-1.30) H 2.0 MG/DL (0.55-1.30) H Estimat Glomerular Filtration Rate 23.8 mL/min (>60) 23.8 mL/min (>60) Glucose Level 135 MG/DL (74-106) H 141 MG/DL (74-106) H Calcium Level 7.5 MG/DL (8.5-10.1) L 7.5 MG/DL (8.5-10.1) L Arterial Blood pH 7.119 (7.350-7.450) Arterial Blood Partial Pressure CO2 52.1 mmHg (35.0-45.0) H Arterial Blood Partial Pressure O2 86.7 mmHg (75.0-100.0) Arterial Blood HCO3 16.5 mmol/L (22.0-26.0) *L Arterial Blood Oxygen Saturation 94.5 % (95-100) L Arterial Blood Base Excess -12.2 (-2-2) *L Gallo Test Positive Total Bilirubin 0.3 MG/DL (0.2-1.0) Aspartate Amino Transf (AST/SGOT) 9 U/L (15-37) L Alanine Aminotransferase (ALT/SGPT) 8 U/L (12-78) L Alkaline Phosphatase 53 U/L (46-116) Total Protein 4.8 G/DL (6.4-8.2) L Albumin 2.3 G/DL (3.4-5.0) L Globulin 2.5 g/dL Albumin/Globulin Ratio 0.9 (1.0-2.7) L Objective HEAD AND NECK: No JVD. On BIPAP LUNGS: Decreased breath sounds. CARDIOVASCULAR: Irregular S1 and S2 with no gallop. ABDOMEN: Soft.S/P PEG EXTREMITIES: No pitting edema. Terry Reyes MD Oct 31, 2020 13:55
--- NOTE | 2020-10-31 14:30 | NUR ---
NURSE NOTES: Transfused 1 PRBC. No adverse transfusion reaction observed. Vital signs stable.
--- NOTE | 2020-10-31 16:16 | NUR ---
NURSE NOTES: Called Dr. Woods to report latest ABG results. With order to orally intubate patient. MD said that he will call ER MD. /Isela made aware of the order. Awaiting for ER MD at bedside.
--- NOTE | 2020-10-31 17:55 | NUR ---
NURSE NOTES: Informed patient's family about intubation via telephone, Spoke with Patrick Geller/patient's relative (speaks swedish) about intubation order. She said that she will inform patient's son/Armani Mendieta.
--- NOTE | 2020-10-31 18:30 | NUR ---
NURSE NOTES: ER MD/Dr. Dylan maza at bedside, for intubation. RT/Gerard at bedside.
[2020-10-31] MEDS ORDERED: Rocuronium Bromide 50mg/5ml Inj IV ONE (19:27)
[2020-10-31] MEDS ORDERED: Etomidate 40mg/20ml Inj IV ONE (19:27)
[2020-10-31] MEDS ORDERED: Succinylcholine 20mg/ml 10ml vial ONE (19:27)
--- NOTE | 2020-10-31 19:30 | NUR ---
NURSE HAND-OFF REPORT: Latest Vital Signs: Temperature 97.0 , Pulse 99 , B/P 125 /66 , Respiratory Rate 20 , O2 SAT 93 , Orally intubated, vent dependent FiO2 100%. EKG Rhythm: Atrial Fibrillation Rhythm change?: N Latest Elizabeth Fall Score: 70 Fall Risk: High Risk Safety Measures: Call light Within Reach, Bed Alarm Zone 1, Side Rails Side Rails x3, Bed position Low and Locked. Fall Precautions: Yellow Socks Patient Fall Education Report given to Florina Barrientos RN.
--- NOTE | 2020-10-31 19:33 | NUR ---
NURSE NOTES: Received report from SERGIO Miller. Pt is obtunded, opens eyes with vigorous stimulation but does not track. No signs of distress noted. monitor car operator shows Afib, SpO2 100% with ETT 7, 23 on lip, AC 20, TV 450, P5, FiO2 100%. PEG is intact, no residuals noted. Rectal tube drains well to gravity. Green is intact and drains well to gravity with yellow urine. L Subclavian TLC asymptomatic. HOB elevated, bed locked, and in lowest position. Will continue to monitor. Will continue plan of care.
--- NOTE | 2020-10-31 19:44 | Diagnostic Imaging Report ---
EXAM: XR Chest, 1 View CLINICAL HISTORY: S/P INTUB TECHNIQUE: Frontal view of the chest. COMPARISON: 10/31/2020. FINDINGS: Lungs: Right basilar atelectasis versus infiltrate. Pleural space: Fullness of the central vessels suggestive of mild vascular congestion. Increased density over the left lung field may indicate layering left-sided pleural effusion, cannot exclude pneumonia. Heart: Cardiomegaly. Moderate left-sided pleural effusion and minimal right-sided effusion. Mediastinum: Unremarkable. Bones/joints: Unremarkable. Tubes, lines and devices: The endotracheal tube has a tip 1.2 cm above paco. IMPRESSION: 1. Lines and tubes as described. Recommend pulling back the endotracheal tube approximately 2 cm. 2. Pleural effusions, left larger than right. Possible right infrahilar/basilar infiltrate. Cannot exclude infiltrate in the left perihilar region. Clinical correlation recommended.
[2020-10-31] MEDS: Dyna-Hex 2% Top Sol 2oz TOPIC SCH (20:05)
--- NOTE | 2020-10-31 20:54 | NUR ---
NURSE NOTES: Called Dr. Woods, left VM regarding pt's repeat ABGs post intubation. Will continue to monitor. Will continue plan of care.
--- NOTE | 2020-10-31 21:15 | General Progress Note ---
Subjective ROS Limited/Unobtainable: Yes Allergies: Coded Allergies: No Known Allergies (Unverified , 10/17/20) Objective Last 24 Hour Vital Signs Date Time Temp Pulse Resp B/P (MAP) Pulse Ox O2 Delivery O2 Flow Rate FiO2 10/31/20 20:00 Bi-pap Bi-pap Endotracheal Tube 10/31/20 19:00 99 20 125/66 (85) 93 10/31/20 18:51 96 20 100 10/31/20 18:25 100 10/31/20 18:00 91 22 103/50 (67) 96 10/31/20 17:28 88 21 98 30 10/31/20 17:00 89 23 112/58 (76) 96 10/31/20 16:00 97.0 85 24 118/58 (78) 99 10/31/20 16:00 Bi-pap 2.0 Bi-pap Bi-pap 10/31/20 16:00 30 10/31/20 15:41 92 17 97 Bi-Pap 30 10/31/20 15:17 69 10/31/20 15:12 90 22 99 30 10/31/20 15:00 83 21 98/44 (62) 98 10/31/20 14:30 97.0 75 19 105/68 (80) 99 10/31/20 14:00 79 22 115/44 (67) 98 10/31/20 13:30 84 23 115/49 (71) 98 10/31/20 13:14 94 24 99 30 10/31/20 13:00 80 25 117/58 (77) 95 10/31/20 12:30 85 19 129/44 (72) 97 10/31/20 12:15 79 22 113/51 (71) 99 10/31/20 12:00 30 10/31/20 12:00 97.5 85 21 114/55 (74) 97 10/31/20 12:00 Bi-pap 2.0 Bi-pap Bi-pap 10/31/20 11:45 97.3 81 22 119/43 (68) 99 10/31/20 11:30 97.0 80 21 106/65 (79) 98 10/31/20 11:23 71 10/31/20 11:15 79 21 108/53 (71) 97 10/31/20 11:13 80 21 98 30 10/31/20 11:00 79 20 115/48 (70) 98 10/31/20 10:00 85 22 102/48 (66) 98 10/31/20 09:45 83 23 112/42 (65) 98 10/31/20 09:30 80 19 109/40 (63) 99 10/31/20 09:16 86 22 98 30 10/31/20 09:15 78 21 100/74 (83) 98 10/31/20 09:00 97.3 78 19 106/46 (66) 99 10/31/20 08:20 76 10/31/20 08:00 30 10/31/20 08:00 Bi-pap 2.0 Bi-pap Bi-pap 10/31/20 08:00 76 19 104/42 (62) 99 10/31/20 07:54 77 10/31/20 07:29 80 21 99 30 10/31/20 07:00 77 19 103/50 (67) 99 10/31/20 06:30 80 18 96/51 (66) 99 10/31/20 06:15 80 22 109/46 (67) 98 10/31/20 06:00 80 21 112/59 (76) 99 10/31/20 05:30 80 20 114/58 (76) 99 10/31/20 05:10 74 12 98 30 10/31/20 05:00 73 19 103/45 (64) 98 10/31/20 04:30 83 21 95/50 (65) 98 10/31/20 04:00 Bi-pap 2.0 Bi-pap Bi-pap 10/31/20 04:00 83 10/31/20 04:00 96.6 81 23 103/46 (65) 97 10/31/20 04:00 112/63 10/31/20 04:00 30 10/31/20 03:30 84 21 110/44 (66) 97 10/31/20 03:16 89 16 98 30 10/31/20 03:00 83 21 118/52 (74) 97 10/31/20 03:00 97/51 10/31/20 02:30 86 20 117/61 (79) 97 10/31/20 02:00 93 21 124/53 (76) 98 10/31/20 02:00 124/53 10/31/20 01:30 90 18 143/51 (81) 100 10/31/20 01:00 84 17 125/56 (79) 98 10/31/20 01:00 112/50 10/31/20 00:30 85 16 115/56 (75) 98 10/31/20 00:00 123/63 10/31/20 00:00 30 10/31/20 00:00 Bi-pap 2.0 Bi-pap Bi-pap 10/31/20 00:00 97.0 88 17 96/47 (63) 99 10/31/20 00:00 99 10/30/20 23:57 84 16 100 30 10/30/20 23:30 82 20 82/17 (38) 100 10/30/20 23:00 88 17 92/48 (63) 100 10/30/20 23:00 103/53 10/30/20 22:30 92 18 92/42 (59) 99 10/30/20 22:00 93/43 10/30/20 22:00 96 15 93/43 (60) 99 10/30/20 21:58 88 14 100 30 10/30/20 21:30 100 21 91/37 (55) 97 Intake and Output 10/30/20 10/31/20 19:00 07:00 Intake Total 2755.545 ml 2608.458 ml Output Total 170 ml Balance 2585.545 ml 2608.458 ml Free Water 50 ml 80 ml IV Total 2315.545 ml 1908.458 ml Tube Feeding 390 ml 620 ml Output Urine Total 170 ml # Voids 450 510 # Bowel Movements 2 1 Laboratory Tests 10/31/20 06:00: White Blood Count 4.4L, Red Blood Count 2.65L, Hemoglobin 7.9L, Hematocrit 25.3L , Mean Corpuscular Volume 96, Mean Corpuscular Hemoglobin 29.8, Mean Corpuscular Hemoglobin Concent 31.2L, Red Cell Distribution Width 19.2H, Platelet Count 134L , Mean Platelet Volume 8.0, Neutrophils (%) (Auto) , Lymphocytes (%) (Auto) , Monocytes (%) (Auto) , Eosinophils (%) (Auto) , Basophils (%) (Auto) , Differential Total Cells Counted 100, Neutrophils % (Manual) 79H, Lymphocytes % (Manual) 10L, Monocytes % (Manual) 8, Eosinophils % (Manual) 0, Basophils % (Manual) 0, Band Neutrophils 3, Platelet Estimate DecreasedL, Platelet Morphology Normal, Hypochromasia 1+, Anisocytosis 2+, Prothrombin Time 11.8H, Prothromb Time International Ratio 1.1, Sodium Level 141, Potassium Level 2.7*L, Chloride Level 109H, Carbon Dioxide Level 21, Anion Gap 12, Blood Urea Nitrogen 35H, Creatinine 2.0H, Estimat Glomerular Filtration Rate 23.8, Glucose Level 135H, Calcium Level 7.5L 10/31/20 08:03: Arterial Blood pH 7.119*L, Arterial Blood Partial Pressure CO2 52.1H, Arterial Blood Partial Pressure O2 86.7, Arterial Blood HCO3 16.5*L, Arterial Blood Oxygen Saturation 94.5L, Arterial Blood Base Excess -12.2*L, Gallo Test Positive 10/31/20 09:25: White Blood Count 4.5L, Red Blood Count 2.69L, Hemoglobin 7.8L, Hematocrit 25.5L , Mean Corpuscular Volume 95, Mean Corpuscular Hemoglobin 29.1, Mean Corpuscular Hemoglobin Concent 30.7L, Red Cell Distribution Width 19.1H, Platelet Count 127L , Mean Platelet Volume 8.4, Neutrophils (%) (Auto) , Lymphocytes (%) (Auto) , Monocytes (%) (Auto) , Eosinophils (%) (Auto) , Basophils (%) (Auto) , Differential Total Cells Counted 100, Neutrophils % (Manual) 78H, Lymphocytes % (Manual) 11L, Monocytes % (Manual) 4, Eosinophils % (Manual) 2, Basophils % (Manual) 0, Band Neutrophils 5, Platelet Estimate DecreasedL, Platelet Morphology Normal, Hypochromasia 1+, Anisocytosis 1+, Sodium Level 141, Potassium Level 2.7*L, Chloride Level 109H, Carbon Dioxide Level 19L, Anion Gap 12, Blood Urea Nitrogen 38H, Creatinine 2.0H, Estimat Glomerular Filtration Rate 23.8, Glucose Level 141H, Calcium Level 7.5L, Total Bilirubin 0.3, Aspartate Amino Transf (AST/SGOT) 9L, Alanine Aminotransferase (ALT/SGPT) 8L, Alkaline Phosphatase 53, Total Protein 4.8L, Albumin 2.3L, Globulin 2.5, Albumin/Globulin Ratio 0.9L 10/31/20 15:57: Arterial Blood pH 7.109*L, Arterial Blood Partial Pressure CO2 56.2*H, Arterial Blood Partial Pressure O2 80.3, Arterial Blood HCO3 17.4*L, Arterial Blood Oxygen Saturation 94.8L, Arterial Blood Base Excess -11.9*L, Gallo Test Positive 10/31/20 19:53: Arterial Blood pH 7.333L, Arterial Blood Partial Pressure CO2 28.7L, Arterial Blood Partial Pressure O2 421.9H, Arterial Blood HCO3 14.9*L, Arterial Blood Oxygen Saturation 98.4, Arterial Blood Base Excess -9.8*L, Gallo Test Positive Height (Feet): 5 Height (Inches): 0.00 Weight (Pounds): 145 Assessment/Plan Problem List: (1) Anemia ICD Codes: D64.9 - Anemia, unspecified SNOMED: 458512439 (2) Acute kidney injury ICD Codes: N17.9 - Acute kidney failure, unspecified SNOMED: 62650145, 4805610 (3) Atrial fibrillation ICD Codes: I48.91 - Unspecified atrial fibrillation SNOMED: 20210906 (4) Elevated troponin ICD Codes: R77.8 - Other specified abnormalities of plasma proteins SNOMED: 658271490, 481189905, 433773652 (5) Malnutrition ICD Codes: E46 - Unspecified protein-calorie malnutrition SNOMED: 30539508 (6) Pneumonia due to COVID-19 virus ICD Codes: U07.1 - COVID-19; J12.82 - Pneumonia due to coronavirus disease 2019 SNOMED: 578014395892620856 (7) Hypothyroidism ICD Codes: E03.9 - Hypothyroidism, unspecified SNOMED: 43302265 Status: progressing Assessment/Plan: resp failure on bipap prn pressor dr conner started iv lasix for pulm edema transfusion arrythmia a fib covid + deteriotating Neri Dumont MD Oct 31, 2020 21:15
--- NOTE | 2020-10-31 21:28 | Emergency Room Report ---
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 COVID-19 Screening: Positive COVID-19 COVID-19 Testing Source: NASAL Nursing Documentation-PMH Past Medical History Deferred: Pt Cognitively Impaired Past Medical History: No Stated History Hx Cardiac Problems: Yes - CHF,N-STEMI Hx COPD: Yes Hx Cancer: No Hx Neurological Problems: No Physical Exam Vital Signs Date Time Temp Pulse Resp B/P (MAP) Pulse Ox O2 Delivery O2 Flow Rate FiO2 10/27/20 07:00 129 29 151/82 (105) 10/27/20 07:10 100 30 10/27/20 08:00 Bi-pap 10/27/20 08:00 98.2 10/28/20 12:00 2.0 Procedures Intubation Intubation : Consent: Emergent Intubation Method: orotracheal Tube Size (cm): 7.0 Medications: Etomidate, Rocuronium Breath Sounds after Intubation: equal Intubation Complications: no complications Post Intubation Xray: Yes Attempts: One Patient Tolerated: Well Complications: None Medical Decision Making Diagnostic Impression: Primary Impression: Anemia Additional Impressions: Acute kidney injury Atrial fibrillation Elevated troponin Hyperkalemia ER Course I came to the ICU to evaluate this patient. Patient placed on BiPAP. Repeat ABG shows significant acidosis with hypercapnia. Patient obtunded. RSI meds given. Using glide scope I intubated patient without difficulty. O2 sats improved. Chest x-ray shows ET tube in place. Care resumed by admitting physician Chest X-Ray Diagnostic Results Chest X-Ray Diagnostic Results : Chest X-Ray Ordered: Yes # of Views/Limited/Complete: 1 View Indication: Shortness of Breath EP Interpretation: Yes Interpretation: no pneumothorax, other - ET tube in place Impression: Other - intubated Electronically Signed by: Electronically signed by Dylan Weaver MD Last Vital Signs Date Time Temp Pulse Resp B/P (MAP) Pulse Ox O2 Delivery O2 Flow Rate FiO2 10/31/20 20:00 Bi-pap Bi-pap Endotracheal Tube 10/31/20 19:00 99 20 125/66 (85) 93 10/31/20 18:51 100 10/31/20 16:00 97.0 10/31/20 16:00 2.0 Status: improved Disposition: ADMITTED INPATIENT Condition: Critical Referrals: Neri Dumont MD (PCP) Dylan Weaver MD Oct 31, 2020 21:28
[2020-11-01] VITALS (33 sets, daily range): BP systolic 80–138; BP diastolic 34–65
--- NOTE | 2020-11-01 00:26 | NUR ---
NURSE NOTES: Glucerna 1.5 GT feeding started at 10cc/hr to reach goal rate of 40cc/hr. Will monitor residuals and increase by 10cc Q4-6H per recommendations from [facility].
[2020-11-01] MEDS: Piperacillin/Tazobactam 3.375 GM in NS 110 ML IVPB SCH ×2 (01:07→13:19)
--- NOTE | 2020-11-01 02:10 | NUR ---
NURSE NOTES: Pt arousable to voice. Moves extremities and tracks movement. Vital signs stable, no signs of distress noted. Afib on laboratory monitor, SpO2 100% on ventilator settings.
--- NOTE | 2020-11-01 04:15 | NUR ---
NURSE NOTES: Pt cleaned and turned. Oral care provided. All linens and gown changed. Pt desaturates to 80s when supine for >30s. Able to use body language to communicate. Will continue plan of care. Will continue to monitor.
--- NOTE | 2020-11-01 07:30 | NUR ---
NURSE NOTES: Received patient in bed. Mechanical ventilator dependent, ET tube inplace. No respiratory distress at this time. On continuous GTF as tolerated. Afib in surveillance monitor. Left subclavian TLC inplace. Bilateral lower and upper extremities edema noted. Bed in lowest position. Will continue plan of care.
--- NOTE | 2020-11-01 07:57 | NUR ---
RESPIRATORY NOTE: PT received on mechanical ventilation with current ventilator orders: AC/VC 20,450,60%,+5. Alarms are on and audible. Vent circuit is secure and out of the way. No s/s of respiratory distress noted at this time Will continue to closely monitor.
[2020-11-01 08:03] LABS: HEMOGLOBIN 8.9 G/DL (12.0-16.0); MEAN CORPUSCULAR VOLUME 90 FL (80-99); PLATELET COUNT 118 K/UL (150-450); RED BLOOD COUNT 3.01 M/UL (4.20-5.40); RED CELL DISTRIBUTION WIDTH 18.3 % (11.6-14.8); WHITE BLOOD COUNT 4.3 K/UL (4.8-10.8)
--- NOTE | 2020-11-01 08:13 | NUR ---
RESPIRATORY NOTE: ABG drawn at this time. Results reported to Angela HILL.
[2020-11-01 08:37] LABS: ALBUMIN 1.8 G/DL (3.4-5.0); ALBUMIN/GLOBULIN RATIO 0.8 (1.0-2.7); BILIRUBIN,TOTAL 0.7 MG/DL (0.2-1.0); CALCIUM 7.6 MG/DL (8.5-10.1); CREATININE 2.1 MG/DL (0.55-1.30); PHOSPHORUS 2.5 MG/DL (2.5-4.9); POTASSIUM 3.2 MMOL/L (3.5-5.1)
--- NOTE | 2020-11-01 08:38 | NUR ---
RESPIRATORY NOTE: FiO2 titrated from 60% to 50% post ABG result. Angela HILL aware.
[2020-11-01] MEDS: Eliquis 2.5mg tablet ORAL SCH ×2 (09:00→17:08)
[2020-11-01] MEDS: Pantoprazole Inj IVP SCH (09:15)
[2020-11-01] MEDS: Digoxin 0.125mg tab GT SCH (09:15)
--- NOTE | 2020-11-01 09:22 | General Progress Note ---
Subjective ROS Limited/Unobtainable: No Allergies: Coded Allergies: No Known Allergies (Unverified , 10/17/20) Subjective intubated now Objective Last 24 Hour Vital Signs Date Time Temp Pulse Resp B/P (MAP) Pulse Ox O2 Delivery O2 Flow Rate FiO2 11/01/20 09:15 100 11/01/20 08:38 50 11/01/20 08:00 98.0 100 23 105/52 (69) 100 11/01/20 08:00 Endotracheal Tube Endotracheal Tube 11/01/20 08:00 60 11/01/20 07:57 87 20 60 11/01/20 07:52 99 11/01/20 07:00 89 20 106/39 (61) 100 11/01/20 06:00 87 19 107/48 (67) 11/01/20 05:00 84 20 94/37 (56) 11/01/20 04:00 Endotracheal Tube 11/01/20 04:00 97.9 89 20 95/47 (63) 100 11/01/20 04:00 60 11/01/20 04:00 87 11/01/20 03:16 79 20 60 11/01/20 03:00 86 16 103/42 (62) 100 11/01/20 02:00 82 19 127/49 (75) 100 11/01/20 01:00 84 20 131/60 (83) 100 11/01/20 00:00 60 11/01/20 00:00 Endotracheal Tube 11/01/20 00:00 83 11/01/20 00:00 97.6 85 20 127/49 (75) 100 10/31/20 23:17 76 20 60 10/31/20 23:00 20 117/74 (88) 100 10/31/20 22:00 83 20 119/56 (77) 100 10/31/20 21:00 84 20 123/73 (90) 100 10/31/20 20:00 98.2 89 12 137/86 (103) 92 10/31/20 20:00 Endotracheal Tube 10/31/20 20:00 92 10/31/20 19:00 99 20 125/66 (85) 93 10/31/20 18:51 96 20 100 10/31/20 18:25 100 10/31/20 18:00 91 22 103/50 (67) 96 10/31/20 17:28 88 21 98 30 10/31/20 17:00 89 23 112/58 (76) 96 10/31/20 16:00 97.0 85 24 118/58 (78) 99 10/31/20 16:00 Bi-pap 2.0 Bi-pap Bi-pap 10/31/20 16:00 30 10/31/20 15:41 92 17 97 Bi-Pap 30 10/31/20 15:17 69 10/31/20 15:12 90 22 99 30 10/31/20 15:00 83 21 98/44 (62) 98 10/31/20 14:30 97.0 75 19 105/68 (80) 99 10/31/20 14:00 79 22 115/44 (67) 98 10/31/20 13:30 84 23 115/49 (71) 98 10/31/20 13:14 94 24 99 30 10/31/20 13:00 80 25 117/58 (77) 95 10/31/20 12:30 85 19 129/44 (72) 97 10/31/20 12:15 79 22 113/51 (71) 99 10/31/20 12:00 30 10/31/20 12:00 97.5 85 21 114/55 (74) 97 10/31/20 12:00 Bi-pap 2.0 Bi-pap Bi-pap 10/31/20 11:45 97.3 81 22 119/43 (68) 99 10/31/20 11:30 97.0 80 21 106/65 (79) 98 10/31/20 11:23 71 10/31/20 11:15 79 21 108/53 (71) 97 10/31/20 11:13 80 21 98 30 10/31/20 11:00 79 20 115/48 (70) 98 10/31/20 10:00 85 22 102/48 (66) 98 10/31/20 09:45 83 23 112/42 (65) 98 10/31/20 09:30 80 19 109/40 (63) 99 Intake and Output 10/31/20 11/01/20 19:00 07:00 Intake Total 1426.67 ml 320.0 ml Output Total 400 ml 505 ml Balance 1026.67 ml -185.0 ml Free Water 60 ml IV Total 576.67 ml 110.0 ml Tube Feeding 600 ml 150 ml Blood Product 250 ml Output Urine Total 330 ml Stool Total 400 ml 175 ml # Voids 380 140 Laboratory Tests 10/31/20 09:25: White Blood Count 4.5L, Red Blood Count 2.69L, Hemoglobin 7.8L, Hematocrit 25.5L , Mean Corpuscular Volume 95, Mean Corpuscular Hemoglobin 29.1, Mean Corpuscular Hemoglobin Concent 30.7L, Red Cell Distribution Width 19.1H, Platelet Count 127L , Mean Platelet Volume 8.4, Neutrophils (%) (Auto) , Lymphocytes (%) (Auto) , Monocytes (%) (Auto) , Eosinophils (%) (Auto) , Basophils (%) (Auto) , Differential Total Cells Counted 100, Neutrophils % (Manual) 78H, Lymphocytes % (Manual) 11L, Monocytes % (Manual) 4, Eosinophils % (Manual) 2, Basophils % (Manual) 0, Band Neutrophils 5, Platelet Estimate DecreasedL, Platelet Morphology Normal, Hypochromasia 1+, Anisocytosis 1+, Sodium Level 141, Potassium Level 2.7*L, Chloride Level 109H, Carbon Dioxide Level 19L, Anion Gap 12, Blood Urea Nitrogen 38H, Creatinine 2.0H, Estimat Glomerular Filtration Rate 23.8, Glucose Level 141H, Calcium Level 7.5L, Total Bilirubin 0.3, Aspartate Amino Transf (AST/SGOT) 9L, Alanine Aminotransferase (ALT/SGPT) 8L, Alkaline Phosphatase 53, Total Protein 4.8L, Albumin 2.3L, Globulin 2.5, Albumin/Globulin Ratio 0.9L 10/31/20 15:57: Arterial Blood pH 7.109*L, Arterial Blood Partial Pressure CO2 56.2*H, Arterial Blood Partial Pressure O2 80.3, Arterial Blood HCO3 17.4*L, Arterial Blood Oxygen Saturation 94.8L, Arterial Blood Base Excess -11.9*L, Gallo Test Positive 10/31/20 19:53: Arterial Blood pH 7.333L, Arterial Blood Partial Pressure CO2 28.7L, Arterial Blood Partial Pressure O2 421.9H, Arterial Blood HCO3 14.9*L, Arterial Blood Ox ygen Saturation 98.4, Arterial Blood Base Excess -9.8*L, Gallo Test Positive 11/01/20 07:00: White Blood Count 4.3L, Red Blood Count 3.01L, Hemoglobin 8.9L, Hematocrit 27.0L , Mean Corpuscular Volume 90, Mean Corpuscular Hemoglobin 29.5, Mean Corpuscular Hemoglobin Concent 33.0, Red Cell Distribution Width 18.3H, Platelet Count 118L, Mean Platelet Volume 8.3, Neutrophils (%) (Auto) , Lymphocytes (%) (Auto) , Monocytes (%) (Auto) , Eosinophils (%) (Auto) , Basophils (%) (Auto) , Differential Total Cells Counted 100, Neutrophils % (Manual) 77H, Lymphocytes % (Manual) 10L, Monocytes % (Manual) 9, Eosinophils % (Manual) 0, Basophils % (Manual) 0, Band Neutrophils 4, Platelet Estimate DecreasedL, Platelet Morphology Normal, Hypochromasia 1+, Anisocytosis 1+, Sodium Level 143, Potassium Level 3.2L, Chloride Level 111H, Carbon Dioxide Level 20L, Anion Gap 12, Blood Urea Nitrogen 40H, Creatinine 2.1H, Estimat Glomerular Filtration Rate 22.5, Glucose Level 81, Calcium Level 7.6L, Total Bilirubin 0.7, Aspartate Amino Transf (AST/SGOT) 11L, Alanine Aminotransferase (ALT/SGPT) 8L, Alkaline Phosphatase 56, Total Protein 4.2L, Albumin 1.8L, Globulin 2.4, Albumin/Globulin Ratio 0.8L, Phosphorus Level 2.5, Magnesium Level 1.5L, Digoxin Level 0.9 11/01/20 08:13: Arterial Blood pH 7.403, Arterial Blood Partial Pressure CO2 29.0L, Arterial Blood Partial Pressure O2 193.8H, Arterial Blood HCO3 17.7*L, Arterial Blood Oxygen Saturation 98.2, Arterial Blood Base Excess -6.1L, Gallo Test Positive Height (Feet): 5 Height (Inches): 0.00 Weight (Pounds): 145 General Appearance: no apparent distress, lethargic EENT: normal ENT inspection Neck: supple Cardiovascular: normal rate Respiratory/Chest: decreased breath sounds Abdomen: hypoactive bowel sounds Extremities: non-tender Assessment/Plan Problem List: (1) Hypothyroidism ICD Codes: E03.9 - Hypothyroidism, unspecified SNOMED: 97063167 (2) Pneumonia due to COVID-19 virus ICD Codes: U07.1 - COVID-19; J12.82 - Pneumonia due to coronavirus disease 2019 SNOMED: 003894075846332259 (3) Malnutrition ICD Codes: E46 - Unspecified protein-calorie malnutrition SNOMED: 62933189 (4) Decubitus skin ulcer ICD Codes: L89.90 - Pressure ulcer of unspecified site, unspecified stage SNOMED: 082856647 (5) Elevated troponin ICD Codes: R77.8 - Other specified abnormalities of plasma proteins SNOMED: 187070288, 958170961, 761603146 (6) Atrial fibrillation ICD Codes: I48.91 - Unspecified atrial fibrillation SNOMED: 96018404 (7) Anemia ICD Codes: D64.9 - Anemia, unspecified SNOMED: 134804706 Status: progressing Assessment/Plan: GTF fu cardiology fu pulm labs for AM intubated now Skyler Tobar MD Nov 01, 2020 09:22
--- NOTE | 2020-11-01 09:51 | Pulmonology Progress Note ---
Subjective ROS Limited/Unobtainable: No Interval Events: Intubated 10/31/20 Constitutional: Reports: fever HEENT: Repors: no symptoms Respiratory: Reports: no symptoms Cardiovascular: Reports: no symptoms Gastrointestinal/Abdominal: Reports: other Psychiatric: Reports: other - refusing medications; s/p PEG Allergies: Coded Allergies: No Known Allergies (Unverified , 10/17/20) All Systems: reviewed and negative except above Objective Last 24 Hour Vital Signs Date Time Temp Pulse Resp B/P (MAP) Pulse Ox O2 Delivery O2 Flow Rate FiO2 11/01/20 09:15 100 11/01/20 09:00 90 20 97/38 (57) 100 11/01/20 08:38 50 11/01/20 08:00 98.0 100 23 105/52 (69) 100 11/01/20 08:00 Endotracheal Tube Endotracheal Tube 11/01/20 08:00 60 11/01/20 07:57 87 20 60 11/01/20 07:52 99 11/01/20 07:00 89 20 106/39 (61) 100 11/01/20 06:00 87 19 107/48 (67) 11/01/20 05:00 84 20 94/37 (56) 11/01/20 04:00 Endotracheal Tube 11/01/20 04:00 97.9 89 20 95/47 (63) 100 11/01/20 04:00 60 11/01/20 04:00 87 11/01/20 03:16 79 20 60 11/01/20 03:00 86 16 103/42 (62) 100 11/01/20 02:00 82 19 127/49 (75) 100 11/01/20 01:00 84 20 131/60 (83) 100 11/01/20 00:00 60 11/01/20 00:00 Endotracheal Tube 11/01/20 00:00 83 11/01/20 00:00 97.6 85 20 127/49 (75) 100 10/31/20 23:17 76 20 60 10/31/20 23:00 20 117/74 (88) 100 10/31/20 22:00 83 20 119/56 (77) 100 10/31/20 21:00 84 20 123/73 (90) 100 10/31/20 20:00 98.2 89 12 137/86 (103) 92 10/31/20 20:00 Endotracheal Tube 10/31/20 20:00 92 10/31/20 19:00 99 20 125/66 (85) 93 10/31/20 18:51 96 20 100 10/31/20 18:25 100 10/31/20 18:00 91 22 103/50 (67) 96 10/31/20 17:28 88 21 98 30 10/31/20 17:00 89 23 112/58 (76) 96 10/31/20 16:00 97.0 85 24 118/58 (78) 99 10/31/20 16:00 Bi-pap 2.0 Bi-pap Bi-pap 10/31/20 16:00 30 10/31/20 15:41 92 17 97 Bi-Pap 30 10/31/20 15:17 69 10/31/20 15:12 90 22 99 30 10/31/20 15:00 83 21 98/44 (62) 98 10/31/20 14:30 97.0 75 19 105/68 (80) 99 10/31/20 14:00 79 22 115/44 (67) 98 10/31/20 13:30 84 23 115/49 (71) 98 10/31/20 13:14 94 24 99 30 10/31/20 13:00 80 25 117/58 (77) 95 10/31/20 12:30 85 19 129/44 (72) 97 10/31/20 12:15 79 22 113/51 (71) 99 10/31/20 12:00 30 10/31/20 12:00 97.5 85 21 114/55 (74) 97 10/31/20 12:00 Bi-pap 2.0 Bi-pap Bi-pap 10/31/20 11:45 97.3 81 22 119/43 (68) 99 10/31/20 11:30 97.0 80 21 106/65 (79) 98 10/31/20 11:23 71 10/31/20 11:15 79 21 108/53 (71) 97 10/31/20 11:13 80 21 98 30 10/31/20 11:00 79 20 115/48 (70) 98 10/31/20 10:00 85 22 102/48 (66) 98 Intake and Output 10/31/20 11/01/20 19:00 07:00 Intake Total 1426.67 ml 320.0 ml Output Total 400 ml 505 ml Balance 1026.67 ml -185.0 ml Free Water 60 ml IV Total 576.67 ml 110.0 ml Tube Feeding 600 ml 150 ml Blood Product 250 ml Output Urine Total 330 ml Stool Total 400 ml 175 ml # Voids 380 140 General Appearance: no acute distress HEENT: atraumatic Respiratory: lungs clear Cardiovascular: normal rate, regular rhythm Abdomen: soft, non tender, other - s/p PEG Laboratory Tests 10/31/20 15:57: Arterial Blood pH 7.109*L, Arterial Blood Partial Pressure CO2 56.2*H, Arterial Blood Partial Pressure O2 80.3, Arterial Blood HCO3 17.4*L, Arterial Blood Oxygen Saturation 94.8L, Arterial Blood Base Excess -11.9*L, Gallo Test Positive 10/31/20 19:53: Arterial Blood pH 7.333L, Arterial Blood Partial Pressure CO2 28.7L, Arterial Blood Partial Pressure O2 421.9H, Arterial Blood HCO3 14.9*L, Arterial Blood Oxygen Saturation 98.4, Arterial Blood Base Excess -9.8*L, Gallo Test Positive 11/01/20 07:00: White Blood Count 4.3L, Red Blood Count 3.01L, Hemoglobin 8.9L, Hematocrit 27.0L , Mean Corpuscular Volume 90, Mean Corpuscular Hemoglobin 29.5, Mean Corpuscular Hemoglobin Concent 33.0, Red Cell Distribution Width 18.3H, Platelet Count 118L, Mean Platelet Volume 8.3, Neutrophils (%) (Auto) , Lymphocytes (%) (Auto) , Monocytes (%) (Auto) , Eosinophils (%) (Auto) , Basophils (%) (Auto) , Differential Total Cells Counted 100, Neutrophils % (Manual) 77H, Lymphocytes % (Manual) 10L, Monocytes % (Manual) 9, Eosinophils % (Manual) 0, Basophils % (Manual) 0, Band Neutrophils 4, Platelet Estimate DecreasedL, Platelet Morphology Normal, Hypochromasia 1+, Anisocytosis 1+, Sodium Level 143, Potassium Level 3.2L, Chloride Level 111H, Carbon Dioxide Level 20L, Anion Gap 12, Blood Urea Nitrogen 40H, Creatinine 2.1H, Estimat Glomerular Filtration Rate 22.5, Glucose Level 81, Calcium Level 7.6L, Phosphorus Level 2.5, Magnesium Level 1.5L, Total Bilirubin 0.7, Aspartate Amino Transf (AST/SGOT) 11L, Alanine Aminotransferase (ALT/SGPT) 8L, Alkaline Phosphatase 56, Total Protein 4.2L, Albumin 1.8L, Globulin 2.4, Albumin/Globulin Ratio 0.8L, Digoxin Level 0.9 11/01/20 08:13: Arterial Blood pH 7.403, Arterial Blood Partial Pressure CO2 29.0L, Arterial Blood Partial Pressure O2 193.8H, Arterial Blood HCO3 17.7*L, Arterial Blood Oxygen Saturation 98.2, Arterial Blood Base Excess -6.1L, Gallo Test Positive Current Medications Medications (Trade) Dose Ordered Sig/Yolanda Route PRN Reason Start Time Stop Time Status Last Admin Dose Admin Acetaminophen (Tylenol) 500 mg Q6HR PRN ORAL Mild Pain 1-3 10/17/20 17:45 11/16/20 17:44 Acetaminophen (Tylenol) 500 mg Q6HR PRN ORAL fever >100 10/17/20 18:00 11/16/20 17:59 Acetaminophen (Tylenol) 650 mg Q4H PRN ORAL Pain Scale (6-10) 10/17/20 19:15 11/16/20 19:14 Apixaban (Eliquis) 2.5 mg BID ORAL 10/24/20 18:00 01/22/21 17:59 10/30/20 17:45 Chlorhexidine Gluconate (Eve-Hex 2%) 1 applic DAILY@2000 TOPIC 10/22/20 20:00 01/20/21 19:59 10/31/20 20:05 Digoxin (Lanoxin) 0.125 mg DAILY GT 10/30/20 09:00 01/28/21 08:59 11/01/20 09:15 Furosemide (Lasix) 40 mg EVERY 8 HOURS IV 10/31/20 14:00 11/30/20 13:59 11/01/20 05:14 Levothyroxine Sodium (Synthroid) 50 mcg DAILY@0630 ORAL 10/19/20 06:30 11/18/20 06:29 11/01/20 06:18 Norepinephrine Bitartrate 8 mg/ Dextrose 558 ml @ 0 mls/hr Q24H IV 10/29/20 11:00 11/01/20 10:59 10/30/20 20:30 Ondansetron HCl (Zofran) 4 mg Q6H PRN IVP Nausea & Vomiting 10/17/20 21:15 11/16/20 21:14 Pantoprazole (Protonix) 40 mg DAILY IVP 11/01/20 09:00 11/25/20 20:59 11/01/20 09:15 Piperacillin Sod/ Tazobactam Sod 3.375 gm/Sodium Chloride 110 ml @ 27.5 mls/hr Q12H IVPB 10/26/20 14:00 11/02/20 13:59 11/01/20 01:07 Potassium Chloride 100 ml @ 100 mls/hr Q1H IVPB 11/01/20 09:30 11/01/20 10:29 11/01/20 09:37 Assessment/Plan Assessment/Plan 1. CHF. 2. CAD/previous non-STEMI. 3. [facility] resident. 4. Bradycardia. 5. Atrial fibrillation. -Started on Eliquis 6. Renal insufficiency. -Nephro following 7. Troponin leak. - Cardio following 8. COVID-19 pneumonia, without fever or leukocytosis - Now intubated - ABG pH 7.40/29/198 9. Hypoxemia 10. 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 UTI, cheryl 12. Dysphagia -s/p PEG (10/23) 13. Hypotension; improved - s/p NS bolus - pressors as needed - will continue Carlos Johnson MD Nov 01, 2020 09:51
--- NOTE | 2020-11-01 10:21 | Hematology/Onc Progress Note ---
Assessment/Plan Assessment/Plan # Thrombocytopenia is due to infection/underlying covid19+++ --> ABX ceftriaxone -->zosyn --> on steriods likely cause of initial wbc --> per pulm --> plt 107->156-->192-->205--> 118k --> smear reviewed # Anemia due to chronic disease --> hgb goal is >7 --> transfuse prn --> ferritin is >1000 --> hold off on iron --> 10-->9.8->9-->8-->8.2-->9.4-->8.1--> 8.9 # Elevated ddimer due to covid19++ --> duplex legs is negative --> underlying covid rx # Hypoxia -> due to covid19 # Hypoxemia --> rx same as above # Respiratory failure --> on vent --> per pulm # Pneumonia due to COVID-19 virus --> per pulm rx -> sp remdesivir # Diabetes mellitus out of control --> hgb a1c goal <7 # Poor prognosis # Dvt ppx lovenox sq Appreciate consultation and dw RN Subjective Allergies: Coded Allergies: No Known Allergies (Unverified , 10/17/20) Subjective 11/01: remains in icu, no bleeding reported Objective Objective Current Medications Medications (Trade) Dose Ordered Sig/Yolanda Route PRN Reason Start Time Stop Time Status Last Admin Dose Admin Acetaminophen (Tylenol) 500 mg Q6HR PRN ORAL Mild Pain 1-3 10/17/20 17:45 11/16/20 17:44 Acetaminophen (Tylenol) 500 mg Q6HR PRN ORAL fever >100 10/17/20 18:00 11/16/20 17:59 Acetaminophen (Tylenol) 650 mg Q4H PRN ORAL Pain Scale (6-10) 10/17/20 19:15 11/16/20 19:14 Apixaban (Eliquis) 2.5 mg BID ORAL 10/24/20 18:00 01/22/21 17:59 10/30/20 17:45 Chlorhexidine Gluconate (Eve-Hex 2%) 1 applic DAILY@1999 TOPIC 10/22/20 20:00 01/20/21 19:59 10/31/20 20:05 Digoxin (Lanoxin) 0.125 mg DAILY GT 10/30/20 09:00 01/28/21 08:59 11/01/20 09:15 Furosemide (Lasix) 40 mg EVERY 8 HOURS IV 10/31/20 14:00 11/30/20 13:59 11/01/20 05:14 Levothyroxine Sodium (Synthroid) 50 mcg DAILY@0630 ORAL 10/19/20 06:30 11/18/20 06:29 11/01/20 06:18 Norepinephrine Bitartrate 8 mg/ Dextrose 558 ml @ 0 mls/hr Q24H IV 10/29/20 11:00 11/01/20 10:59 10/30/20 20:30 Ondansetron HCl (Zofran) 4 mg Q6H PRN IVP Nausea & Vomiting 10/17/20 21:15 11/16/20 21:14 Pantoprazole (Protonix) 40 mg DAILY IVP 11/01/20 09:00 11/25/20 20:59 11/01/20 09:15 Piperacillin Sod/ Tazobactam Sod 3.375 gm/Sodium Chloride 110 ml @ 27.5 mls/hr Q12H IVPB 10/26/20 14:00 11/02/20 13:59 11/01/20 01:07 Potassium Chloride 100 ml @ 100 mls/hr Q1H IVPB 11/01/20 09:30 11/01/20 10:29 11/01/20 09:37 Last 24 Hour Vital Signs Date Time Temp Pulse Resp B/P (MAP) Pulse Ox O2 Delivery O2 Flow Rate FiO2 11/01/20 10:00 83 20 98/39 (58) 100 11/01/20 09:15 100 11/01/20 09:00 90 20 97/38 (57) 100 11/01/20 08:38 50 11/01/20 08:38 80 20 50 11/01/20 08:00 98.0 100 23 105/52 (69) 100 11/01/20 08:00 Endotracheal Tube Endotracheal Tube 11/01/20 08:00 60 11/01/20 07:57 87 20 60 11/01/20 07:52 99 11/01/20 07:00 89 20 106/39 (61) 100 11/01/20 06:00 87 19 107/48 (67) 11/01/20 05:00 84 20 94/37 (56) 11/01/20 04:00 Endotracheal Tube 11/01/20 04:00 97.9 89 20 95/47 (63) 100 11/01/20 04:00 60 11/01/20 04:00 87 11/01/20 03:16 79 20 60 11/01/20 03:00 86 16 103/42 (62) 100 11/01/20 02:00 82 19 127/49 (75) 100 11/01/20 01:00 84 20 131/60 (83) 100 11/01/20 00:00 60 11/01/20 00:00 Endotracheal Tube 11/01/20 00:00 83 11/01/20 00:00 97.6 85 20 127/49 (75) 100 10/31/20 23:17 76 20 60 10/31/20 23:00 20 117/74 (88) 100 10/31/20 22:00 83 20 119/56 (77) 100 10/31/20 21:00 84 20 123/73 (90) 100 10/31/20 20:00 98.2 89 12 137/86 (103) 92 10/31/20 20:00 Endotracheal Tube 10/31/20 20:00 92 10/31/20 19:00 99 20 125/66 (85) 93 10/31/20 18:51 96 20 100 10/31/20 18:25 100 10/31/20 18:00 91 22 103/50 (67) 96 10/31/20 17:28 88 21 98 30 10/31/20 17:00 89 23 112/58 (76) 96 10/31/20 16:00 97.0 85 24 118/58 (78) 99 10/31/20 16:00 Bi-pap 2.0 Bi-pap Bi-pap 10/31/20 16:00 30 10/31/20 15:41 92 17 97 Bi-Pap 30 10/31/20 15:17 69 10/31/20 15:12 90 22 99 30 10/31/20 15:00 83 21 98/44 (62) 98 10/31/20 14:30 97.0 75 19 105/68 (80) 99 10/31/20 14:00 79 22 115/44 (67) 98 10/31/20 13:30 84 23 115/49 (71) 98 10/31/20 13:14 94 24 99 30 10/31/20 13:00 80 25 117/58 (77) 95 10/31/20 12:30 85 19 129/44 (72) 97 10/31/20 12:15 79 22 113/51 (71) 99 10/31/20 12:00 30 10/31/20 12:00 97.5 85 21 114/55 (74) 97 10/31/20 12:00 Bi-pap 2.0 Bi-pap Bi-pap 10/31/20 11:45 97.3 81 22 119/43 (68) 99 10/31/20 11:30 97.0 80 21 106/65 (79) 98 10/31/20 11:23 71 10/31/20 11:15 79 21 108/53 (71) 97 10/31/20 11:13 80 21 98 30 10/31/20 11:00 79 20 115/48 (70) 98 10/31/20 10:00 85 22 102/48 (66) 98 10/31/20 09:45 83 23 112/42 (65) 98 10/31/20 09:30 80 19 109/40 (63) 99 10/31/20 09:16 86 22 98 30 10/31/20 09:15 78 21 100/74 (83) 98 10/31/20 09:00 97.3 78 19 106/46 (66) 99 10/31/20 08:20 76 10/31/20 08:00 30 10/31/20 08:00 Bi-pap 2.0 Bi-pap Bi-pap 10/31/20 08:00 76 19 104/42 (62) 99 10/31/20 07:54 77 10/31/20 07:29 80 21 99 30 10/31/20 07:00 77 19 103/50 (67) 99 10/31/20 06:30 80 18 96/51 (66) 99 10/31/20 06:15 80 22 109/46 (67) 98 10/31/20 06:00 80 21 112/59 (76) 99 10/31/20 05:30 80 20 114/58 (76) 99 10/31/20 05:10 74 12 98 30 10/31/20 05:00 73 19 103/45 (64) 98 10/31/20 04:30 83 21 95/50 (65) 98 10/31/20 04:00 Bi-pap 2.0 Bi-pap Bi-pap 10/31/20 04:00 83 10/31/20 04:00 96.6 81 23 103/46 (65) 97 10/31/20 04:00 112/63 10/31/20 04:00 30 10/31/20 03:30 84 21 110/44 (66) 97 10/31/20 03:16 89 16 98 30 10/31/20 03:00 83 21 118/52 (74) 97 10/31/20 03:00 97/51 10/31/20 02:30 86 20 117/61 (79) 97 10/31/20 02:00 93 21 124/53 (76) 98 10/31/20 02:00 124/53 10/31/20 01:30 90 18 143/51 (81) 100 10/31/20 01:00 84 17 125/56 (79) 98 10/31/20 01:00 112/50 10/31/20 00:30 85 16 115/56 (75) 98 10/31/20 00:00 123/63 10/31/20 00:00 30 10/31/20 00:00 Bi-pap 2.0 Bi-pap Bi-pap 10/31/20 00:00 97.0 88 17 96/47 (63) 99 10/31/20 00:00 99 10/30/20 23:57 84 16 100 30 10/30/20 23:30 82 20 82/17 (38) 100 10/30/20 23:00 88 17 92/48 (63) 100 10/30/20 23:00 103/53 10/30/20 22:30 92 18 92/42 (59) 99 10/30/20 22:00 93/43 10/30/20 22:00 96 15 93/43 (60) 99 10/30/20 21:58 88 14 100 30 10/30/20 21:30 100 21 91/37 (55) 97 10/30/20 21:00 100 18 91/47 (62) 99 10/30/20 21:00 91/47 10/30/20 20:30 93/43 3/5/21 20:30 94 17 97/35 (55) 99 10/30/20 20:00 Bi-pap 2.0 Bi-pap Bi-pap 10/30/20 20:00 98/41 10/30/20 20:00 106 10/30/20 20:00 96.6 98 20 98/41 (60) 99 10/30/20 20:00 30 10/30/20 19:52 99 12 98 30 10/30/20 19:30 100 23 106/50 (68) 98 10/30/20 19:00 98/35 10/30/20 19:00 100 22 98/35 (56) 99 10/30/20 18:59 116 22 98/35 (56) 98 10/30/20 18:00 84 15 92/25 (47) 100 10/30/20 18:00 92/25 10/30/20 17:16 104 18 101/28 (52) 96 10/30/20 17:00 113 18 79/40 (53) 96 10/30/20 17:00 79/40 10/30/20 16:00 109 10/30/20 16:00 98.2 106 19 109/44 (65) 100 10/30/20 16:00 109/44 10/30/20 16:00 30 10/30/20 16:00 Bi-pap 2.0 Bi-pap Bi-pap 10/30/20 15:45 91/37 10/30/20 15:00 87 21 113/48 (69) 100 10/30/20 15:00 113/48 10/30/20 14:00 97.3 101 17 100/39 (59) 100 10/30/20 14:00 100/38 10/30/20 13:00 92 18 92/31 (51) 100 10/30/20 13:00 92/31 10/30/20 12:06 88 29 90 30 10/30/20 12:00 97 10/30/20 12:00 30 10/30/20 12:00 97.3 97 20 107/42 (63) 97 10/30/20 12:00 78/43 10/30/20 12:00 Bi-pap 2.0 Bi-pap Bi-pap 10/30/20 11:00 87 22 122/33 (62) 99 10/30/20 11:00 122/33 Intake and Output 10/31/20 11/01/20 19:00 07:00 Intake Total 1426.67 ml 320.0 ml Output Total 400 ml 505 ml Balance 1026.67 ml -185.0 ml Free Water 60 ml IV Total 576.67 ml 110.0 ml Tube Feeding 600 ml 150 ml Blood Product 250 ml Output Urine Total 330 ml Stool Total 400 ml 175 ml # Voids 380 140 Labs Test 10/30/20 04:20 10/31/20 06:00 10/31/20 08:03 10/31/20 09:25 White Blood Count 5.2 K/UL (4.8-10.8) 4.4 K/UL (4.8-10.8) 4.5 K/UL (4.8-10.8) Red Blood Count 2.64 M/UL (4.20-5.40) 2.65 M/UL (4.20-5.40) 2.69 M/UL (4.20-5.40) Hemoglobin 8.1 G/DL (12.0-16.0) 7.9 G/DL (12.0-16.0) 7.8 G/DL (12.0-16.0) Hematocrit 25.7 % (37.0-47.0) 25.3 % (37.0-47.0) 25.5 % (37.0-47.0) Mean Corpuscular Volume 97 FL (80-99) 96 FL (80-99) 95 FL (80-99) Mean Corpuscular Hemoglobin 30.5 PG (27.0-31.0) 29.8 PG (27.0-31.0) 29.1 PG (27.0-31.0) Mean Corpuscular Hemoglobin Concent 31.3 G/DL (32.0-36.0) 31.2 G/DL (32.0-36.0) 30.7 G/DL (32.0-36.0) Red Cell Distribution Width 19.4 % (11.6-14.8) 19.2 % (11.6-14.8) 19.1 % (11.6-14.8) Platelet Count 183 K/UL (150-450) 134 K/UL (150-450) 127 K/UL (150-450) Mean Platelet Volume 7.0 FL (6.5-10.1) 8.0 FL (6.5-10.1) 8.4 FL (6.5-10.1) Neutrophils (%) (Auto) % (45.0-75.0) % (45.0-75.0) % (45.0-75.0) Lymphocytes (%) (Auto) % (20.0-45.0) % (20.0-45.0) % (20.0-45.0) Monocytes (%) (Auto) % (1.0-10.0) % (1.0-10.0) % (1.0-10.0) Eosinophils (%) (Auto) % (0.0-3.0) % (0.0-3.0) % (0.0-3.0) Basophils (%) (Auto) % (0.0-2.0) % (0.0-2.0) % (0.0-2.0) Differential Total Cells Counted 100 100 100 Neutrophils % (Manual) 69 % (45-75) 79 % (45-75) 78 % (45-75) Lymphocytes % (Manual) 15 % (20-45) 10 % (20-45) 11 % (20-45) Monocytes % (Manual) 6 % (1-10) 8 % (1-10) 4 % (1-10) Eosinophils % (Manual) 1 % (0-3) 0 % (0-3) 2 % (0-3) Basophils % (Manual) 0 % (0-2) 0 % (0-2) 0 % (0-2) Band Neutrophils 9 % (0-8) 3 % (0-8) 5 % (0-8) Platelet Estimate Adequate Decreased Decreased Platelet Morphology Normal Normal Normal Hypochromasia 1+ 1+ 1+ Anisocytosis 2+ 2+ 1+ Sodium Level 142 MMOL/L (136-145) 141 MMOL/L (136-145) 141 MMOL/L (136-145) Potassium Level 5.4 MMOL/L (3.5-5.1) 2.7 MMOL/L (3.5-5.1) 2.7 MMOL/L (3.5-5.1) Chloride Level 108 MMOL/L (98-107) 109 MMOL/L (98-107) 109 MMOL/L (98-107) Carbon Dioxide Level 19 MMOL/L (21-32) 21 MMOL/L (21-32) 19 MMOL/L (21-32) Anion Gap 15 mmol/L (5-15) 12 mmol/L (5-15) 12 mmol/L (5-15) Blood Urea Nitrogen 40 mg/dL (7-18) 35 mg/dL (7-18) 38 mg/dL (7-18) Creatinine 2.1 MG/DL (0.55-1.30) 2.0 MG/DL (0.55-1.30) 2.0 MG/DL (0.55-1.30) Estimat Glomerular Filtration Rate 22.5 mL/min (>60) 23.8 mL/min (>60) 23.8 mL/min (>60) Glucose Level 161 MG/DL (74-106) 135 MG/DL (74-106) 141 MG/DL (74-106) Uric Acid 7.7 MG/DL (2.6-7.2) Calcium Level 7.5 MG/DL (8.5-10.1) 7.5 MG/DL (8.5-10.1) 7.5 MG/DL (8.5-10.1) Phosphorus Level 3.1 MG/DL (2.5-4.9) Magnesium Level 2.5 MG/DL (1.8-2.4) Total Bilirubin 0.3 MG/DL (0.2-1.0) 0.3 MG/DL (0.2-1.0) Aspartate Amino Transf (AST/SGOT) 16 U/L (15-37) 9 U/L (15-37) Alanine Aminotransferase (ALT/SGPT) 14 U/L (12-78) 8 U/L (12-78) Alkaline Phosphatase 69 U/L (46-116) 53 U/L (46-116) C-Reactive Protein, Quantitative 0.7 mg/dL (0.00-0.90) Pro-B-Type Natriuretic Peptide > 12111 pg/mL (0-125) Total Protein 4.9 G/DL (6.4-8.2) 4.8 G/DL (6.4-8.2) Albumin 2.2 G/DL (3.4-5.0) 2.3 G/DL (3.4-5.0) Globulin 2.7 g/dL 2.5 g/dL Albumin/Globulin Ratio 0.8 (1.0-2.7) 0.9 (1.0-2.7) Digoxin Level 0.9 NG/ML (0.9-2.0) Prothrombin Time 11.8 SEC (9.30-11.50) Prothromb Time International Ratio 1.1 (0.9-1.1) Arterial Blood pH 7.119 (7.350-7.450) Arterial Blood Partial Pressure CO2 52.1 mmHg (35.0-45.0) Arterial Blood Partial Pressure O2 86.7 mmHg (75.0-100.0) Arterial Blood HCO3 16.5 mmol/L (22.0-26.0) Arterial Blood Oxygen Saturation 94.5 % (95-100) Arterial Blood Base Excess -12.2 (-2-2) Gallo Test Positive Test 10/31/20 15:57 10/31/20 19:53 11/01/20 07:00 11/01/20 08:13 Arterial Blood pH 7.109 (7.350-7.450) 7.333 (7.350-7.450) 7.403 (7.350-7.450) Arterial Blood Partial Pressure CO2 56.2 mmHg (35.0-45.0) 28.7 mmHg (35.0-45.0) 29.0 mmHg (35.0-45.0) Arterial Blood Partial Pressure O2 80.3 mmHg (75.0-100.0) 421.9 mmHg (75.0-100.0) 193.8 mmHg (75.0-100.0) Arterial Blood HCO3 17.4 mmol/L (22.0-26.0) 14.9 mmol/L (22.0-26.0) 17.7 mmol/L (22.0-26.0) Arterial Blood Oxygen Saturation 94.8 % (95-100) 98.4 % (95-100) 98.2 % (95-100) Arterial Blood Base Excess -11.9 (-2-2) -9.8 (-2-2) -6.1 (-2-2) Gallo Test Positive Positive Positive White Blood Count 4.3 K/UL (4.8-10.8) Red Blood Count 3.01 M/UL (4.20-5.40) Hemoglobin 8.9 G/DL (12.0-16.0) Hematocrit 27.0 % (37.0-47.0) Mean Corpuscular Volume 90 FL (80-99) Mean Corpuscular Hemoglobin 29.5 PG (27.0-31.0) Mean Corpuscular Hemoglobin Concent 33.0 G/DL (32.0-36.0) Red Cell Distribution Width 18.3 % (11.6-14.8) Platelet Count 118 K/UL (150-450) Mean Platelet Volume 8.3 FL (6.5-10.1) Neutrophils (%) (Auto) % (45.0-75.0) Lymphocytes (%) (Auto) % (20.0-45.0) Monocytes (%) (Auto) % (1.0-10.0) Eosinophils (%) (Auto) % (0.0-3.0) Basophils (%) (Auto) % (0.0-2.0) Differential Total Cells Counted 100 Neutrophils % (Manual) 77 % (45-75) Lymphocytes % (Manual) 10 % (20-45) Monocytes % (Manual) 9 % (1-10) Eosinophils % (Manual) 0 % (0-3) Basophils % (Manual) 0 % (0-2) Band Neutrophils 4 % (0-8) Platelet Estimate Decreased Platelet Morphology Normal Hypochromasia 1+ Anisocytosis 1+ Sodium Level 143 MMOL/L (136-145) Potassium Level 3.2 MMOL/L (3.5-5.1) Chloride Level 111 MMOL/L (98-107) Carbon Dioxide Level 20 MMOL/L (21-32) Anion Gap 12 mmol/L (5-15) Blood Urea Nitrogen 40 mg/dL (7-18) Creatinine 2.1 MG/DL (0.55-1.30) Estimat Glomerular Filtration Rate 22.5 mL/min (>60) Glucose Level 81 MG/DL (74-106) Calcium Level 7.6 MG/DL (8.5-10.1) Phosphorus Level 2.5 MG/DL (2.5-4.9) Magnesium Level 1.5 MG/DL (1.8-2.4) Total Bilirubin 0.7 MG/DL (0.2-1.0) Aspartate Amino Transf (AST/SGOT) 11 U/L (15-37) Alanine Aminotransferase (ALT/SGPT) 8 U/L (12-78) Alkaline Phosphatase 56 U/L (46-116) Total Protein 4.2 G/DL (6.4-8.2) Albumin 1.8 G/DL (3.4-5.0) Globulin 2.4 g/dL Albumin/Globulin Ratio 0.8 (1.0-2.7) Digoxin Level 0.9 NG/ML (0.9-2.0) Height (Feet): 5 Height (Inches): 0.00 Weight (Pounds): 145 Objective Physical Exam General: Awake and alert, no acute distress HEENT: NC/AT. EOMI. Cardiovascular: Irregularly irregular rhythm. Resp: Normal work of breathing. + bipap Abdomen: Abdomen is soft, nondistended. Nontender Skin: Intact. No abrasions, laceration or rash over the exposed skin MSK: Normal tone and bulk. Moving all extremities. Neuro: Awake and alert. Mentating appropriately. Esmer Hunter NP Nov 01, 2020 10:21
--- NOTE | 2020-11-01 10:44 | NUR ---
RESPIRATORY NOTE: FiO2 titrated from 50% to 40%. PT tolerating well. Angela HILL aware.
--- NOTE | 2020-11-01 10:53 | NUR ---
RD ASSESSMENT & RECOMMENDATIONS SEE CARE ACTIVITY FOR COMPLETE ASSESSMENT DAILY ESTIMATED NEEDS: Needs based on Critical care / 51kg abw 25-30 kcals/kg 9976-3634 total kcals 1.2-2 g protein/kg 61-102 g total protein 20-25 mL/kg 3700-0916 total fluid mLs NUTRITION DIAGNOSIS: Swallowing difficulty R/T dysphagia, decreased cognitive fxn as evidenced by BEATER BOSS recommends pureed moist texture diet w/ poor PO, now s/p PEG placement on 10/23, on GT feeds-> pt now intubated. CURRENT TF:Glucerna 1.5@40 x22 hrs (Pt on Synthroid) ENTERAL NUTRITION RECOMMENDATIONS: With hemodynamic stability: Glucerna 1.5 @ goal of 40ml/hr x 22 hrs to provide 880ml, 1320kcal, 66g prot, 640ml free water FEED WITH HEMODYANMIC STABILITY -> Rec Glucerna 1.5 at this time for less free fluids (BNP >78109) -> Initiate GLucerna 1.5 @ 10ml/hr x 6hrs -> Advance 10ml q 4-6 hrs as tolerated to goal rate -> HOB over 30 degrees/ H2O flush per MD Without hemodynamic stability and if able to keep HOB >30 degrees, rec trophic feeding of Glucerna 1.5 @ 10-15ml/hr ADDITIONAL RECOMMENDATIONS: * Calibrated bedscale wt * Monitor hemodynamic stability-> NE now held Rec trophic feeding w/ continued HD instability if HOB >30degrees * Monitor BGs, need for hypoglycemics * Rec to lower or DC IVF: BNP >29524, currently receiving 2400ml IVF/24hrs . .
--- NOTE | 2020-11-01 11:06 | Surgery Progress Note ---
Surgery Progress Note Subjective Procedure Performed left subclavian central venous catheter insertion Additional Comments worse intubated on support Objective Last 24 Hour Vital Signs Date Time Temp Pulse Resp B/P (MAP) Pulse Ox O2 Delivery O2 Flow Rate FiO2 11/01/20 10:46 40 11/01/20 10:00 83 20 98/39 (58) 100 11/01/20 09:15 100 11/01/20 09:00 90 20 97/38 (57) 100 11/01/20 08:38 50 11/01/20 08:38 80 20 50 11/01/20 08:00 98.0 100 23 105/52 (69) 100 11/01/20 08:00 Endotracheal Tube Endotracheal Tube 11/01/20 08:00 60 11/01/20 07:57 87 20 60 11/01/20 07:52 99 11/01/20 07:00 89 20 106/39 (61) 100 11/01/20 06:00 87 19 107/48 (67) 11/01/20 05:00 84 20 94/37 (56) 11/01/20 04:00 Endotracheal Tube 11/01/20 04:00 97.9 89 20 95/47 (63) 100 11/01/20 04:00 60 11/01/20 04:00 87 11/01/20 03:16 79 20 60 11/01/20 03:00 86 16 103/42 (62) 100 11/01/20 02:00 82 19 127/49 (75) 100 11/01/20 01:00 84 20 131/60 (83) 100 11/01/20 00:00 60 11/01/20 00:00 Endotracheal Tube 11/01/20 00:00 83 11/01/20 00:00 97.6 85 20 127/49 (75) 100 10/31/20 23:17 76 20 60 10/31/20 23:00 20 117/74 (88) 100 10/31/20 22:00 83 20 119/56 (77) 100 10/31/20 21:00 84 20 123/73 (90) 100 10/31/20 20:00 98.2 89 12 137/86 (103) 92 10/31/20 20:00 Endotracheal Tube 10/31/20 20:00 92 10/31/20 19:00 99 20 125/66 (85) 93 10/31/20 18:51 96 20 100 10/31/20 18:25 100 10/31/20 18:00 91 22 103/50 (67) 96 10/31/20 17:28 88 21 98 30 10/31/20 17:00 89 23 112/58 (76) 96 10/31/20 16:00 97.0 85 24 118/58 (78) 99 10/31/20 16:00 Bi-pap 2.0 Bi-pap Bi-pap 10/31/20 16:00 30 10/31/20 15:41 92 17 97 Bi-Pap 30 10/31/20 15:17 69 10/31/20 15:12 90 22 99 30 10/31/20 15:00 83 21 98/44 (62) 98 10/31/20 14:30 97.0 75 19 105/68 (80) 99 10/31/20 14:00 79 22 115/44 (67) 98 10/31/20 13:30 84 23 115/49 (71) 98 10/31/20 13:14 94 24 99 30 10/31/20 13:00 80 25 117/58 (77) 95 10/31/20 12:30 85 19 129/44 (72) 97 10/31/20 12:15 79 22 113/51 (71) 99 10/31/20 12:00 30 10/31/20 12:00 97.5 85 21 114/55 (74) 97 10/31/20 12:00 Bi-pap 2.0 Bi-pap Bi-pap 10/31/20 11:45 97.3 81 22 119/43 (68) 99 10/31/20 11:30 97.0 80 21 106/65 (79) 98 10/31/20 11:23 71 10/31/20 11:15 79 21 108/53 (71) 97 10/31/20 11:13 80 21 98 30 I&O Intake and Output 10/31/20 11/01/20 19:00 07:00 Intake Total 1426.67 ml 320.0 ml Output Total 400 ml 505 ml Balance 1026.67 ml -185.0 ml Free Water 60 ml IV Total 576.67 ml 110.0 ml Tube Feeding 600 ml 150 ml Blood Product 250 ml Output Urine Total 330 ml Stool Total 400 ml 175 ml # Voids 380 140 Dressing: saturated Cardiovascular: RSR Respiratory: decreased breath sounds Abdomen: soft, non-tender, present bowel sounds, non-distended Extremities: edema, no cyanosis Laboratory Tests Test 10/31/20 15:57 10/31/20 19:53 11/01/20 07:00 11/01/20 08:13 Arterial Blood pH 7.109 (7.350-7.450) 7.333 (7.350-7.450) 7.403 (7.350-7.450) Arterial Blood Partial Pressure CO2 56.2 mmHg (35.0-45.0) *H 28.7 mmHg (35.0-45.0) L 29.0 mmHg (35.0-45.0) L Arterial Blood Partial Pressure O2 80.3 mmHg (75.0-100.0) 421.9 mmHg (75.0-100.0) H 193.8 mmHg (75.0-100.0) H Arterial Blood HCO3 17.4 mmol/L (22.0-26.0) *L 14.9 mmol/L (22.0-26.0) *L 17.7 mmol/L (22.0-26.0) *L Arterial Blood Oxygen Saturation 94.8 % (95-100) L 98.4 % (95-100) 98.2 % (95-100) Arterial Blood Base Excess -11.9 (-2-2) *L -9.8 (-2-2) *L -6.1 (-2-2) L Gallo Test Positive Positive Positive White Blood Count 4.3 K/UL (4.8-10.8) L Red Blood Count 3.01 M/UL (4.20-5.40) L Hemoglobin 8.9 G/DL (12.0-16.0) L Hematocrit 27.0 % (37.0-47.0) L Mean Corpuscular Volume 90 FL (80-99) Mean Corpuscular Hemoglobin 29.5 PG (27.0-31.0) Mean Corpuscular Hemoglobin Concent 33.0 G/DL (32.0-36.0) Red Cell Distribution Width 18.3 % (11.6-14.8) H Platelet Count 118 K/UL (150-450) L Mean Platelet Volume 8.3 FL (6.5-10.1) Neutrophils (%) (Auto) % (45.0-75.0) Lymphocytes (%) (Auto) % (20.0-45.0) Monocytes (%) (Auto) % (1.0-10.0) Eosinophils (%) (Auto) % (0.0-3.0) Basophils (%) (Auto) % (0.0-2.0) Differential Total Cells Counted 100 Neutrophils % (Manual) 77 % (45-75) H Lymphocytes % (Manual) 10 % (20-45) L Monocytes % (Manual) 9 % (1-10) Eosinophils % (Manual) 0 % (0-3) Basophils % (Manual) 0 % (0-2) Band Neutrophils 4 % (0-8) Platelet Estimate Decreased L Platelet Morphology Normal Hypochromasia 1+ Anisocytosis 1+ Sodium Level 143 MMOL/L (136-145) Potassium Level 3.2 MMOL/L (3.5-5.1) L Chloride Level 111 MMOL/L (98-107) H Carbon Dioxide Level 20 MMOL/L (21-32) L Anion Gap 12 mmol/L (5-15) Blood Urea Nitrogen 40 mg/dL (7-18) H Creatinine 2.1 MG/DL (0.55-1.30) H Estimat Glomerular Filtration Rate 22.5 mL/min (>60) Glucose Level 81 MG/DL (74-106) Calcium Level 7.6 MG/DL (8.5-10.1) L Phosphorus Level 2.5 MG/DL (2.5-4.9) Magnesium Level 1.5 MG/DL (1.8-2.4) L Total Bilirubin 0.7 MG/DL (0.2-1.0) Aspartate Amino Transf (AST/SGOT) 11 U/L (15-37) L Alanine Aminotransferase (ALT/SGPT) 8 U/L (12-78) L Alkaline Phosphatase 56 U/L (46-116) Total Protein 4.2 G/DL (6.4-8.2) L Albumin 1.8 G/DL (3.4-5.0) L Globulin 2.4 g/dL Albumin/Globulin Ratio 0.8 (1.0-2.7) L Digoxin Level 0.9 NG/ML (0.9-2.0) Plan Problems: (1) Anemia (2) Acute kidney injury (3) Atrial fibrillation (4) Hyperkalemia (5) Elevated troponin (6) Decubitus skin ulcer Assessment & Plan: Pt presented on admission with Multiple Medical Comorbidities including Covid-19 and Pressure Injuries. Primary Nurse reported Pt has been declining food and medications. Sacral DTPI that is evolving noted to Sacrum(L)6cm x (W)12.5cm.. Scattered Purpuric areas that are indurated noted to R and L cheek. Small wound that is 100% slough (L)0.6cm x (W)0.7cm noted at sacrococcygeal area within base of DTPI. MASD noted to Perineum and skin folds of Medial/posterior aspects of Both upper thighs. Affected areas are erythematous and macerated with scattered satellite lesions. DTPI L Heel (L)3cm x (W)4cm, Base of heel is maroon and fluctuant with small purpuric area (L)0.4cm x (W)0.9cm within base of DTPI. l Foot including toes are mottled and cool to touch. L Heel is boggy. L Heel including toes are Mottled and cool to touch. Tx.Plan: Apply Moisture Barrier Paste to Sacrum. Cover with Optifoam drsg.Change every 3 days and prn. Apply Moisture Barrier Paste to abdominal folds, Perineum and skin folds of both upper thighs. Apply Cavilon Skin Barrier to both heels. Cover each Heel with Optifoam drsg. Change every 7 days and prn. Reposition at least every 2hours or as tolerated. Off-load heels with pillow. (7) Malnutrition Assessment & Plan: She was able to self feed on right hand and took a bite of popsicle and tolerated without s.s of aspiration. After 1st bite, then she refused 2nd bite. After this was done, I offered her a cup of cranberry juice, she took few sips and tolerated without s.s of aspiration. I continued to offer but she refused further PO. A: 1. Functional swallow 2. Failure to thrive 3. abnormal electrolytes in setting of heart failure, NSTEMI, elevated BNP, etc.. P/Rec. 1. Pureed and thin liquid 2.3. Goal of care discussion DAILY ESTIMATED NEEDS: Needs based on Cardiac, pulmonary/ 51kg abw 25-30 kcals/kg 3918-4708 total kcals 1-1.5 g protein/kg 51-76 g total protein 20-25 mL/kg 9168-5953 total fluid mLs NUTRITION DIAGNOSIS: Swallowing difficulty R/T dysphagia, decreased cognitive fxn as evidenced by STRATIGRAPHY TEACHER recommends pureed moist texture diet at this time. CURRENT DIET:NPO PO DIET RECOMMENDATIONS: Liberalized REGULAR w/ poor PO (texture per STRATIGRAPHY TEACHER) ADDITIONAL RECOMMENDATIONS: * Calibrated bedscale wt * Monitor PO intake: refusing meds and foods at this time -> rec nonoral feeds w/ continued refusal of PO if part of POC * LOW NA diet w/ PO intake consistently >50% * 4 oz Ensure TID w/ meals (4oz at this time due to poor acceptance, may increase to 8oz w/ good acceptance) (8) Pneumonia due to COVID-19 virus Assessment & Plan: here appears to be increased left pleural fluid and generalized hazy parenchymal opacity, left greater than right. Heart remains enlarged Impression: Increased left pleural effusion Suspect increasing bilateral left greater than right pulmonary edema versus infiltrates worsening intubated on vent (9) Hypothyroidism Jim Orosco Nov 01, 2020 11:06
[2020-11-01] MEDS ORDERED: Norepinephrine 4mg/NS Premix 250 ML IV PRN (11:17)
--- NOTE | 2020-11-01 11:30 | NUR ---
NURSE NOTES: Dr. Dumont at bedside.
[2020-11-01] MEDS ORDERED: Tubing IV Secondary IV ONE (11:32)
[2020-11-01] MEDS ORDERED: Tubing Blood Filter IV ONE (11:32)
[2020-11-01] MEDS ORDERED: NS 275ml ONE (11:32)
[2020-11-01] MEDS ORDERED: D5NS 1000ml IV ONE (11:32)
--- NOTE | 2020-11-01 15:52 | General Progress Note ---
Subjective ROS Limited/Unobtainable: Yes Allergies: Coded Allergies: No Known Allergies (Unverified , 10/17/20) Objective Last 24 Hour Vital Signs Date Time Temp Pulse Resp B/P (MAP) Pulse Ox O2 Delivery O2 Flow Rate FiO2 11/01/20 15:00 92 20 99/51 (67) 100 11/01/20 14:00 92 19 132/37 (68) 100 11/01/20 13:45 87 15 114/58 (76) 99 11/01/20 13:30 100 11 120/58 (78) 100 11/01/20 13:15 86 20 40 11/01/20 13:15 89 20 94/37 (56) 100 11/01/20 13:00 89 20 106/57 (73) 100 11/01/20 12:45 91 18 115/44 (67) 100 11/01/20 12:30 94 19 131/59 (83) 100 11/01/20 12:15 94 20 127/56 (79) 99 11/01/20 12:00 Endotracheal Tube Endotracheal Tube 11/01/20 12:00 97 15 138/65 (89) 97 11/01/20 12:00 100 11/01/20 11:45 97.3 88 20 80/37 (51) 100 11/01/20 11:40 87 20 94/49 (64) 100 11/01/20 11:28 82/40 11/01/20 11:00 85 20 82/40 (54) 100 11/01/20 10:46 40 11/01/20 10:44 87 20 40 11/01/20 10:00 83 20 98/39 (58) 100 11/01/20 09:15 100 11/01/20 09:00 90 20 97/38 (57) 100 11/01/20 08:38 50 11/01/20 08:38 80 20 50 11/01/20 08:00 98.0 100 23 105/52 (69) 100 11/01/20 08:00 Endotracheal Tube Endotracheal Tube 11/01/20 08:00 60 11/01/20 07:57 87 20 60 11/01/20 07:52 99 11/01/20 07:00 89 20 106/39 (61) 100 11/01/20 06:00 87 19 107/48 (67) 11/01/20 05:00 84 20 94/37 (56) 11/01/20 04:00 Endotracheal Tube 11/01/20 04:00 97.9 89 20 95/47 (63) 100 11/01/20 04:00 60 11/01/20 04:00 87 11/01/20 03:16 79 20 60 11/01/20 03:00 86 16 103/42 (62) 100 11/01/20 02:00 82 19 127/49 (75) 100 11/01/20 01:00 84 20 131/60 (83) 100 11/01/20 00:00 60 11/01/20 00:00 Endotracheal Tube 11/01/20 00:00 83 11/01/20 00:00 97.6 85 20 127/49 (75) 100 10/31/20 23:17 76 20 60 10/31/20 23:00 20 117/74 (88) 100 10/31/20 22:00 83 20 119/56 (77) 100 10/31/20 21:00 84 20 123/73 (90) 100 10/31/20 20:00 98.2 89 12 137/86 (103) 92 10/31/20 20:00 Endotracheal Tube 10/31/20 20:00 92 10/31/20 19:00 99 20 125/66 (85) 93 10/31/20 18:51 96 20 100 10/31/20 18:25 100 10/31/20 18:00 91 22 103/50 (67) 96 10/31/20 17:28 88 21 98 30 10/31/20 17:00 89 23 112/58 (76) 96 10/31/20 16:00 97.0 85 24 118/58 (78) 99 10/31/20 16:00 Bi-pap 2.0 Bi-pap Bi-pap 10/31/20 16:00 30 Intake and Output 10/31/20 11/01/20 19:00 07:00 Intake Total 1426.67 ml 320.0 ml Output Total 400 ml 505 ml Balance 1026.67 ml -185.0 ml Free Water 60 ml IV Total 576.67 ml 110.0 ml Tube Feeding 600 ml 150 ml Blood Product 250 ml Output Urine Total 330 ml Stool Total 400 ml 175 ml # Voids 380 140 Laboratory Tests 10/31/20 15:57: Arterial Blood pH 7.109*L, Arterial Blood Partial Pressure CO2 56.2*H, Arterial Blood Partial Pressure O2 80.3, Arterial Blood HCO3 17.4*L, Arterial Blood Oxygen Saturation 94.8L, Arterial Blood Base Excess -11.9*L, Gallo Test Positive 10/31/20 19:53: Arterial Blood pH 7.333L, Arterial Blood Partial Pressure CO2 28.7L, Arterial Blood Partial Pressure O2 421.9H, Arterial Blood HCO3 14.9*L, Arterial Blood Oxygen Saturation 98.4, Arterial Blood Base Excess -9.8*L, Gallo Test Positive 11/01/20 07:00: White Blood Count 4.3L, Red Blood Count 3.01L, Hemoglobin 8.9L, Hematocrit 27.0L , Mean Corpuscular Volume 90, Mean Corpuscular Hemoglobin 29.5, Mean Corpuscular Hemoglobin Concent 33.0, Red Cell Distribution Width 18.3H, Platelet Count 118L, Mean Platelet Volume 8.3, Neutrophils (%) (Auto) , Lymphocytes (%) (Auto) , Monocytes (%) (Auto) , Eosinophils (%) (Auto) , Basophils (%) (Auto) , Differential Total Cells Counted 100, Neutrophils % (Manual) 77H, Lymphocytes % (Manual) 10L, Monocytes % (Manual) 9, Eosinophils % (Manual) 0, Basophils % (Manual) 0, Band Neutrophils 4, Platelet Estimate DecreasedL, Platelet Morphology Normal, Hypochromasia 1+, Anisocytosis 1+, Sodium Level 143, Potassium Level 3.2L, Chloride Level 111H, Carbon Dioxide Level 20L, Anion Gap 12, Blood Urea Nitrogen 40H, Creatinine 2.1H, Estimat Glomerular Filtration Rate 22.5, Glucose Level 81, Calcium Level 7.6L, Phosphorus Level 2.5, Magnesium Level 1.5L, Total Bilirubin 0.7, Aspartate Amino Transf (AST/SGOT) 11L, Alanine Aminotransferase (ALT/SGPT) 8L, Alkaline Phosphatase 56, Total Protein 4.2L, Albumin 1.8L, Globulin 2.4, Albumin/Globulin Ratio 0.8L, Digoxin Level 0.9 11/01/20 08:13: Arterial Blood pH 7.403, Arterial Blood Partial Pressure CO2 29.0L, Arterial Blood Partial Pressure O2 193.8H, Arterial Blood HCO3 17.7*L, Arterial Blood Oxygen Saturation 98.2, Arterial Blood Base Excess -6.1L, Gallo Test Positive Height (Feet): 5 Height (Inches): 0.00 Weight (Pounds): 145 Assessment/Plan Problem List: (1) Anemia ICD Codes: D64.9 - Anemia, unspecified SNOMED: 957766251 (2) Acute kidney injury ICD Codes: N17.9 - Acute kidney failure, unspecified SNOMED: 48787447, 1399684 (3) Atrial fibrillation ICD Codes: I48.91 - Unspecified atrial fibrillation SNOMED: 38774686 (4) Elevated troponin ICD Codes: R77.8 - Other specified abnormalities of plasma proteins SNOMED: 461292438, 128752140, 005054947 (5) Malnutrition ICD Codes: E46 - Unspecified protein-calorie malnutrition SNOMED: 23861977 (6) Pneumonia due to COVID-19 virus ICD Codes: U07.1 - COVID-19; J12.82 - Pneumonia due to coronavirus disease 2019 SNOMED: 756942879398248445 (7) Hypothyroidism ICD Codes: E03.9 - Hypothyroidism, unspecified SNOMED: 11662522 Status: progressing Assessment/Plan: intubated on pressor deterioating very poor prognosis dr conner started iv lasix for pulm edema transfusion arrythmia a fib covid + deteriotating Neri Dumont MD Nov 01, 2020 15:52
--- NOTE | 2020-11-01 15:56 | Nephrology Progress Note ---
Assessment/Plan Problem List: (1) Acute kidney injury (2) Anemia (3) Hyperkalemia (4) Elevated troponin (5) Pneumonia due to COVID-19 virus (6) Hypothyroidism Assessment Plan November 01: Seen in ICU. Now intubated on ventilator. Discussed with RN. Labs results noted. Abnormal electrolytes addressed. Discussed with RN. Continue per consultants. October 31: Patient seen in ICU. Discussed with SERGIO Miller. ABG noted. Patient acidotic. Being transfused. Potassium is being replaced. Due for another ABG and possible intubation if needed. Conferred with pulmonary and cardiology. October 30: Labs reviewed. Potassium elevated. Kayexalate ordered. Continue to monitor hemoglobin hematocrit and renal parameters. Serum creatinine 2.1. Remains on BiPAP. October 29: Seen in ICU. Discussed with SERGIO Wilkerson. Hemoglobin low. Transfuse 1 unit of packed RBCs. Potassium supplements IV given. Midodrine discontinued. Serum creatinine 2.2 stable. Patient remains on BiPAP. Continue per consultants. Continue to monitor hemoglobin hematocrit electrolytes and renal parameters. October 28: Seen in ICU. Remains on BiPAP. Low potassium and low magnesium addressed. Serum creatinine plateaued at 2.2. Continue per current treatment plan. October 27: Patient in ICU. On BiPAP. Serum creatinine rising. Blood pressure more stable. Will give 100 mg Lasix IV push with the hope of reversing oliguria. Medication list reviewed. Continue to monitor renal parameters. October 26: Seen in ICU. On pressors for low blood pressure. Serum creatinine 2.1. Albumin bolus given. Stress dose of steroids initiated. Continue to monitor renal parameters. Continue per consultants. October 25: Patient seen and examined. Trendelenburg. Blood pressure low. Tachycardic. Discussed with RN. Patient to be transferred to ICU. Discussed with ICU charge nurse and hospital charge nurse. Meanwhile patient started on Albumin bolus and 100 cc an hour D5 normal saline. Patient to be started on pressors while in ICU. Patient full code. October 24: No CHEM panel drawn today.. Renal parameters stable. Patient had a GT placed yesterday. Will check labs tomorrow. Medication list reviewed. October 23: Labs reviewed. Renal parameters unchanged. Creatinine 1.9. Continue current management. Medication list reviewed. October 22: Labs reviewed. Serum creatinine lower at 1.8. Patient started on clear liquid. Patient refuses p.o. medications and food at times. Continue per consultants. October 21: Labs reviewed. Serum creatinine unchanged. Continue per consultants. Continue to monitor renal parameters. October 20: Today's labs reviewed. Serum creatinine unchanged. RN reports patient not taking any p.o. meds. Continue per consultants. Serum creatinine appears to be baseline. October 19: Today's labs still not done yet. RN informed. Albumin bolus given again. Continue to monitor electrolytes and renal parameters. Per orders October 18: Patient hypotensive. Due for blood transfusion. Will give albumin bolus. Continue to monitor renal parameters and electrolytes. Labs and medication list reviewed Subjective ROS Limited/Unobtainable: Yes Objective Objective Last 24 Hour Vital Signs Date Time Temp Pulse Resp B/P (MAP) Pulse Ox O2 Delivery O2 Flow Rate FiO2 11/01/20 15:00 92 20 99/51 (67) 100 11/01/20 14:00 92 19 132/37 (68) 100 11/01/20 13:45 87 15 114/58 (76) 99 11/01/20 13:30 100 11 120/58 (78) 100 11/01/20 13:15 86 20 40 11/01/20 13:15 89 20 94/37 (56) 100 11/01/20 13:00 89 20 106/57 (73) 100 11/01/20 12:45 91 18 115/44 (67) 100 11/01/20 12:30 94 19 131/59 (83) 100 11/01/20 12:15 94 20 127/56 (79) 99 11/01/20 12:00 Endotracheal Tube Endotracheal Tube 11/01/20 12:00 97 15 138/65 (89) 97 11/01/20 12:00 100 11/01/20 11:45 97.3 88 20 80/37 (51) 100 11/01/20 11:40 87 20 94/49 (64) 100 11/01/20 11:28 82/40 11/01/20 11:00 85 20 82/40 (54) 100 11/01/20 10:46 40 11/01/20 10:44 87 20 40 11/01/20 10:00 83 20 98/39 (58) 100 11/01/20 09:15 100 11/01/20 09:00 90 20 97/38 (57) 100 11/01/20 08:38 50 11/01/20 08:38 80 20 50 11/01/20 08:00 98.0 100 23 105/52 (69) 100 11/01/20 08:00 Endotracheal Tube Endotracheal Tube 11/01/20 08:00 60 11/01/20 07:57 87 20 60 11/01/20 07:52 99 11/01/20 07:00 89 20 106/39 (61) 100 11/01/20 06:00 87 19 107/48 (67) 11/01/20 05:00 84 20 94/37 (56) 11/01/20 04:00 Endotracheal Tube 11/01/20 04:00 97.9 89 20 95/47 (63) 100 11/01/20 04:00 60 11/01/20 04:00 87 11/01/20 03:16 79 20 60 11/01/20 03:00 86 16 103/42 (62) 100 11/01/20 02:00 82 19 127/49 (75) 100 11/01/20 01:00 84 20 131/60 (83) 100 11/01/20 00:00 60 11/01/20 00:00 Endotracheal Tube 11/01/20 00:00 83 11/01/20 00:00 97.6 85 20 127/49 (75) 100 10/31/20 23:17 76 20 60 10/31/20 23:00 20 117/74 (88) 100 10/31/20 22:00 83 20 119/56 (77) 100 10/31/20 21:00 84 20 123/73 (90) 100 10/31/20 20:00 98.2 89 12 137/86 (103) 92 10/31/20 20:00 Endotracheal Tube 10/31/20 20:00 92 10/31/20 19:00 99 20 125/66 (85) 93 10/31/20 18:51 96 20 100 10/31/20 18:25 100 10/31/20 18:00 91 22 103/50 (67) 96 10/31/20 17:28 88 21 98 30 10/31/20 17:00 89 23 112/58 (76) 96 10/31/20 16:00 97.0 85 24 118/58 (78) 99 10/31/20 16:00 Bi-pap 2.0 Bi-pap Bi-pap 10/31/20 16:00 30 Intake and Output 10/31/20 11/01/20 19:00 07:00 Intake Total 1426.67 ml 320.0 ml Output Total 400 ml 505 ml Balance 1026.67 ml -185.0 ml Free Water 60 ml IV Total 576.67 ml 110.0 ml Tube Feeding 600 ml 150 ml Blood Product 250 ml Output Urine Total 330 ml Stool Total 400 ml 175 ml # Voids 380 140 Current Medications Medications (Trade) Dose Ordered Sig/Yolanda Route PRN Reason Start Time Stop Time Status Last Admin Dose Admin Acetaminophen (Tylenol) 500 mg Q6HR PRN ORAL Mild Pain 1-3 10/17/20 17:45 11/16/20 17:44 Acetaminophen (Tylenol) 500 mg Q6HR PRN ORAL fever >100 10/17/20 18:00 11/16/20 17:59 Acetaminophen (Tylenol) 650 mg Q4H PRN ORAL Pain Scale (6-10) 10/17/20 19:15 11/16/20 19:14 Apixaban (Eliquis) 2.5 mg BID ORAL 10/24/20 18:00 01/22/21 17:59 10/30/20 17:45 Chlorhexidine Gluconate (Eve-Hex 2%) 1 applic DAILY@2000 TOPIC 10/22/20 20:00 01/20/21 19:59 10/31/20 20:05 Digoxin (Lanoxin) 0.125 mg DAILY GT 10/30/20 09:00 01/28/21 08:59 11/01/20 09:15 Furosemide (Lasix) 40 mg EVERY 8 HOURS IV 10/31/20 14:00 11/30/20 13:59 11/01/20 13:20 Levothyroxine Sodium (Synthroid) 50 mcg DAILY@0630 ORAL 10/19/20 06:30 11/18/20 06:29 11/01/20 06:18 Magnesium Sulfate 100 ml @ 100 mls/hr Q1H IVPB 11/01/20 15:30 11/01/20 17:29 11/01/20 15:51 Norepinephrine Bitartrate 250 ml @ 0 mls/hr Q24H PRN IV For hypotension 11/01/20 11:17 11/04/20 11:16 11/01/20 11:28 Ondansetron HCl (Zofran) 4 mg Q6H PRN IVP Nausea & Vomiting 10/17/20 21:15 11/16/20 21:14 Pantoprazole (Protonix) 40 mg DAILY IVP 11/01/20 09:00 11/25/20 20:59 11/01/20 09:15 Piperacillin Sod/ Tazobactam Sod 3.375 gm/Sodium Chloride 110 ml @ 27.5 mls/hr Q12H IVPB 10/26/20 14:00 11/02/20 13:59 11/01/20 13:19 Potassium Chloride 100 ml @ 50 mls/hr ONCE ONCE IVPB 11/01/20 15:15 11/01/20 17:14 11/01/20 15:21 Laboratory Tests 10/31/20 15:57: Arterial Blood pH 7.109*L, Arterial Blood Partial Pressure CO2 56.2*H, Arterial Blood Partial Pressure O2 80.3, Arterial Blood HCO3 17.4*L, Arterial Blood Oxygen Saturation 94.8L, Arterial Blood Base Excess -11.9*L, Gallo Test Positive 10/31/20 19:53: Arterial Blood pH 7.333L, Arterial Blood Partial Pressure CO2 28.7L, Arterial Blood Partial Pressure O2 421.9H, Arterial Blood HCO3 14.9*L, Arterial Blood Oxygen Saturation 98.4, Arterial Blood Base Excess -9.8*L, Gallo Test Positive 11/01/20 07:00: White Blood Count 4.3L, Red Blood Count 3.01L, Hemoglobin 8.9L, Hematocrit 27.0L , Mean Corpuscular Volume 90, Mean Corpuscular Hemoglobin 29.5, Mean Corpuscular Hemoglobin Concent 33.0, Red Cell Distribution Width 18.3H, Platelet Count 118L, Mean Platelet Volume 8.3, Neutrophils (%) (Auto) , Lymphocytes (%) (Auto) , Monocytes (%) (Auto) , Eosinophils (%) (Auto) , Basophils (%) (Auto) , Differential Total Cells Counted 100, Neutrophils % (Manual) 77H, Lymphocytes % (Manual) 10L, Monocytes % (Manual) 9, Eosinophils % (Manual) 0, Basophils % (Manual) 0, Band Neutrophils 4, Platelet Estimate DecreasedL, Platelet Morphology Normal, Hypochromasia 1+, Anisocytosis 1+, Sodium Level 143, Potassium Level 3.2L, Chloride Level 111H, Carbon Dioxide Level 20L, Anion Gap 12, Blood Urea Nitrogen 40H, Creatinine 2.1H, Estimat Glomerular Filtration Rate 22.5, Glucose Level 81, Calcium Level 7.6L, Phosphorus Level 2.5, Magnesium Level 1.5L, Total Bilirubin 0.7, Aspartate Amino Transf (AST/SGOT) 11L, Alanine Aminotransferase (ALT/SGPT) 8L, Alkaline Phosphatase 56, Total Protein 4.2L, Albumin 1.8L, Globulin 2.4, Albumin/Globulin Ratio 0.8L, Digoxin Level 0.9 11/01/20 08:13: Arterial Blood pH 7.403, Arterial Blood Partial Pressure CO2 29.0L, Arterial Blood Partial Pressure O2 193.8H, Arterial Blood HCO3 17.7*L, Arterial Blood Oxygen Saturation 98.2, Arterial Blood Base Excess -6.1L, Gallo Test Positive Height (Feet): 5 Height (Inches): 0.00 Weight (Pounds): 145 General Appearance: no apparent distress EENT: other - Intubated on ventilator Cardiovascular: tachycardia Abdomen: distended Dustin Gómez MD Nov 01, 2020 15:56
--- NOTE | 2020-11-01 16:25 | NUR ---
RESPIRATORY NOTE: FiO2 titrated from 40% to 35%. PT tolerating well. Angela HILL aware.
--- NOTE | 2020-11-01 19:20 | NUR ---
NURSE HAND-OFF REPORT: Latest Vital Signs: Temperature 97.9 , Pulse 117 , B/P 113 /54 , Respiratory Rate 22 , O2 SAT 99 , vent dependent FiO2 35%. Vital Sign Comment: EKG Rhythm: Atrial Fibrillation Rhythm change?: N Latest Elizabeth Fall Score: 70 Fall Risk: High Risk Safety Measures: Call light Within Reach, Bed Alarm Zone 1, Side Rails Side Rails x3, Bed position Low and Locked. Fall Precautions: Yellow Socks Patient Fall Education Report given to Florina Barrientos RN.
--- NOTE | 2020-11-01 19:34 | NUR ---
NURSE NOTES: Received report from SERGIO Miller. Pt is lethargic, opens eyes and tracks, can communicate with body language. No signs of distress noted. lead c developer shows Afib HR 90s, SpO2 100% with ETT 7, 23 on lip, AC 20, TV 450, P5, FiO2 35%. PEG is intact, running glucerna 1.5 at 40cc/hr, 30cc of residuals noted. Rectal tube drains well to gravity. Green is intact and drains well to gravity with yellow cloudy urine. L Subclavian TLC asymptomatic, no signs of infiltration. HOB elevated, bed locked, and in lowest position. Will continue to monitor. Will continue plan of care.
[2020-11-01] MEDS: Dyna-Hex 2% Top Sol 2oz TOPIC SCH (19:43)
[2020-11-01] MEDS: Acetaminophen 500mg (ES) tab ORAL PRN (19:44)
--- NOTE | 2020-11-01 21:13 | NUR ---
NURSE NOTES: Pt nods in affirmative when asked if she has pain. FLACC score is 2, will give Tylenol 500mg PRN.
--- NOTE | 2020-11-01 22:30 | NUR ---
NURSE NOTES: RT at bedside, lowered FiO2 to 30%, pt spo2 98%. Will continue to monitor.
[2020-11-02] VITALS (24 sets, daily range): BP systolic 111–144; BP diastolic 35–100
--- NOTE | 2020-11-02 00:26 | NUR ---
NURSE NOTES: TF feeding held; residuals at 120mls. Will continue to monitor
[2020-11-02] MEDS: Acetaminophen 500mg (ES) tab ORAL PRN ×2 (00:54→14:28)
[2020-11-02] MEDS: Piperacillin/Tazobactam 3.375 GM in NS 110 ML IVPB SCH (01:56)
--- NOTE | 2020-11-02 02:06 | NUR ---
NURSE NOTES: GT residuals 0ml, restarted glucerna 1.5 at 35cc/hr for goal of 40cc/hr. Will continue to monitor.
--- NOTE | 2020-11-02 03:56 | NUR ---
NURSE NOTES: Pt cleaned and turned. Skin is still edematous and moist. Rectal tube intact, rothman intact. Skin barrier cream applied to prevent maceration. Fungal cream applied between the folds of her abd and breasts. Oral care provided, pt resists and does not follow commands during oral care. Will continue plan of care. Will continue to monitor.
--- NOTE | 2020-11-02 05:22 | NUR ---
NURSE NOTES: GT residuals 30mls, will continue at 35cc/hr.
[2020-11-02 05:24] LABS: HEMATOCRIT 28.4 % (37.0-47.0); HEMOGLOBIN 9.2 G/DL (12.0-16.0); MEAN CORPUSCULAR VOLUME 90 FL (80-99); PLATELET COUNT 162 K/UL (150-450); RED BLOOD COUNT 3.16 M/UL (4.20-5.40); RED CELL DISTRIBUTION WIDTH 18.3 % (11.6-14.8); WHITE BLOOD COUNT 6.3 K/UL (4.8-10.8)
[2020-11-02 05:50] LABS: ALANINE AMINOTRANSFERASE 14 U/L (12-78); ALBUMIN 1.8 G/DL (3.4-5.0); ALBUMIN/GLOBULIN RATIO 0.6 (1.0-2.7); ALKALINE PHOSPHATASE 61 U/L (46-116); ANION GAP 14 mmol/L (5-15); ASPARTATE AMINO TRANSFERASE 12 U/L (15-37); BILIRUBIN,TOTAL 0.5 MG/DL (0.2-1.0); BLOOD UREA NITROGEN 44 mg/dL (7-18); CALCIUM 7.3 MG/DL (8.5-10.1); CARBON DIOXIDE 19 MMOL/L (21-32); CHLORIDE 110 MMOL/L (98-107); CREATININE 2.3 MG/DL (0.55-1.30); PHOSPHORUS 2.8 MG/DL (2.5-4.9); POTASSIUM 3.4 MMOL/L (3.5-5.1); SODIUM 143 MMOL/L (136-145)
--- NOTE | 2020-11-02 06:33 | Hematology/Onc Progress Note ---
Assessment/Plan Assessment/Plan Assessment and recs # Anemia r/o gi bleed --> anemia panel has been ordered-->reviewed --> hgb 8.1->9.3->9.7-->9.5-->10.5-->10.2-->9.1->8.6-->7.8-->8.1-->9.2 --> no hemolysis is noted --> transfuse on prn basis --> 1 unit prbc 10/30 # Thrombocytopenia likely due to reactive process --> plt 138-->149-->176-->162 --> imaging prn --> smear has been reviewed --> viral w/u neg # Hypercoag disorder with Atrial fibrillation --> consider anticoag as per cards --> if bleeding, consider hold anticoag # Elevated trop --> per cards # Hyperkalemia --> per renal # Acute kidney injury --> per renal # Resp failure on bipap # Recently COVID-19 positive # Dvt ppx scds --> lovenox sq Appreciate consultation and rosio rn Subjective HEENT: Denies: no symptoms, eye pain, blurred vision, tearing, double vision, ear pain, ear discharge, nose pain, nose congestion, throat pain, throat swelling, mouth pain, mouth swelling, other Cardiovascular: Denies: no symptoms, chest pain, edema, irregular heart rate, lightheadedness, palpitations, syncope, other Respiratory: Denies: no symptoms, cough, shortness of breath, SOB with excertion, SOB at rest, sputum, wheezing, other Gastrointestinal/Abdominal: Denies: no symptoms, abdomen distended, abdominal pain, black stools, tarry stools, blood in stool, constipated, diarrhea, difficulty swallowing, nausea, poor appetite, poor fluid intake, rectal bleeding, vomiting, other Neurologic/Psychiatric: Denies: no symptoms, anxiety, depressed, emotional problems, headache, numbness, paresthesia, pre-existing deficit, seizure, tingling, tremors, weakness, other Endocrine: Denies: no symptoms, excessive sweating, flushing, intolerance to cold, intolerance to heat, increased hunger, increased thirst, increased urine, unexplained weight gain, unexplained weight loss, other Allergies: Coded Allergies: No Known Allergies (Unverified , 2/20/21) Subjective 10/19 cbc is pending, did get blood transfusion last night, pending results 10/20 meds noted, no bleeding, labs reviewed, rosio rn, no new changes 10/21 on 4l nc, has been refusing labs, meds noted, no bleeding 10/22 nc, refusing meds labs reviewed, rosio rn 10/23 is potentially for egd this am, no bleeding, cbc is noted 10/25 meds noted, no bleeidng, is on nc, no night sweats, bp bolus pending 10/26 bed bath done, meds noted, no bleeding, cbc reviewed from am 10/27 lethargic, on bipap, levophed, meds reviewed 10/28 icu, lethargic, remains on bipap, pressors 10/29 icu, lethargic, meds noted, on bipap, labs noted 10/30 icu, bipap, to get 1 unit prbc, meds reviewed, labs noted 10/31 icu, on vent, no bipap 11/01: remains in icu, no bleeding reported 11/02 icu, lethargic, on vent, with gt feeds on hold, labs noted Objective Objective Current Medications Medications (Trade) Dose Ordered Sig/Yolanda Route PRN Reason Start Time Stop Time Status Last Admin Dose Admin Acetaminophen (Tylenol) 500 mg Q6HR PRN ORAL Mild Pain 1-3 10/17/20 17:45 11/16/20 17:44 11/02/20 00:54 Acetaminophen (Tylenol) 500 mg Q6HR PRN ORAL fever >100 10/17/20 18:00 11/16/20 17:59 Acetaminophen (Tylenol) 650 mg Q4H PRN ORAL Pain Scale (6-10) 10/17/20 19:15 11/16/20 19:14 Apixaban (Eliquis) 2.5 mg BID ORAL 10/24/20 18:00 01/22/21 17:59 10/30/20 17:45 Chlorhexidine Gluconate (Eve-Hex 2%) 1 applic DAILY@1999 TOPIC 10/22/20 20:00 01/20/21 19:59 11/01/20 19:43 Digoxin (Lanoxin) 0.125 mg DAILY GT 10/30/20 09:00 01/28/21 08:59 11/01/20 09:15 Furosemide (Lasix) 40 mg EVERY 8 HOURS IV 10/31/20 14:00 11/30/20 13:59 11/02/20 05:49 Levothyroxine Sodium (Synthroid) 50 mcg DAILY@0630 ORAL 10/19/20 06:30 11/18/20 06:29 11/02/20 05:49 Norepinephrine Bitartrate 250 ml @ 0 mls/hr Q24H PRN IV For hypotension 11/01/20 11:17 11/04/20 11:16 11/01/20 11:28 Ondansetron HCl (Zofran) 4 mg Q6H PRN IVP Nausea & Vomiting 10/17/20 21:15 11/16/20 21:14 Pantoprazole (Protonix) 40 mg DAILY IVP 11/01/20 09:00 11/25/20 20:59 11/01/20 09:15 Piperacillin Sod/ Tazobactam Sod 3.375 gm/Sodium Chloride 110 ml @ 27.5 mls/hr Q12H IVPB 10/26/20 14:00 11/02/20 13:59 11/02/20 01:56 Last 24 Hour Vital Signs Date Time Temp Pulse Resp B/P (MAP) Pulse Ox O2 Delivery O2 Flow Rate FiO2 11/02/20 06:00 78 20 119/63 (81) 100 11/02/20 05:00 82 18 130/60 (83) 99 11/02/20 04:00 81 11/02/20 04:00 Endotracheal Tube Endotracheal Tube 11/02/20 04:00 98.2 97 18 134/100 (111) 98 11/02/20 04:00 30 11/02/20 03:02 87 20 30 11/02/20 03:00 81 20 124/71 (88) 99 11/02/20 02:00 77 18 111/58 (75) 99 11/02/20 01:24 98.2 11/02/20 01:00 92 18 121/60 (80) 98 11/02/20 00:00 98.2 91 20 116/48 (70) 98 11/02/20 00:00 30 11/02/20 00:00 96 11/02/20 00:00 Endotracheal Tube Endotracheal Tube 3/7/21 23:00 87 20 115/53 (73) 98 11/01/20 22:30 30 11/01/20 22:25 82 20 30 11/01/20 22:00 79 20 102/47 (65) 100 11/01/20 21:00 91 20 104/40 (61) 98 11/01/20 20:00 Endotracheal Tube Endotracheal Tube 11/01/20 20:00 98.5 86 21 105/34 (57) 99 11/01/20 20:00 106 11/01/20 19:07 117 22 35 11/01/20 19:00 101 22 113/54 (73) 99 11/01/20 18:00 97 21 120/63 (82) 99 11/01/20 17:00 88 20 131/54 (79) 100 11/01/20 16:25 35 11/01/20 16:25 88 20 35 11/01/20 16:00 97.9 88 20 123/58 (79) 100 11/01/20 16:00 Endotracheal Tube Endotracheal Tube 11/01/20 16:00 40 11/01/20 16:00 88 11/01/20 15:30 90 20 120/63 (82) 100 11/01/20 15:12 95 20 40 11/01/20 15:00 92 20 99/51 (67) 100 11/01/20 14:00 92 19 132/37 (68) 100 11/01/20 13:45 87 15 114/58 (76) 99 11/01/20 13:30 100 11 120/58 (78) 100 11/01/20 13:15 86 20 40 11/01/20 13:15 89 20 94/37 (56) 100 11/01/20 13:00 89 20 106/57 (73) 100 11/01/20 12:45 91 18 115/44 (67) 100 11/01/20 12:30 94 19 131/59 (83) 100 11/01/20 12:15 94 20 127/56 (79) 99 11/01/20 12:00 Endotracheal Tube Endotracheal Tube 11/01/20 12:00 97 15 138/65 (89) 97 11/01/20 12:00 100 11/01/20 11:45 97.3 88 20 80/37 (51) 100 11/01/20 11:40 87 20 94/49 (64) 100 11/01/20 11:28 82/40 11/01/20 11:00 85 20 82/40 (54) 100 11/01/20 10:46 40 11/01/20 10:44 87 20 40 11/01/20 10:00 83 20 98/39 (58) 100 11/01/20 09:15 100 11/01/20 09:00 90 20 97/38 (57) 100 11/01/20 08:38 50 11/01/20 08:38 80 20 50 11/01/20 08:00 98.0 100 23 105/52 (69) 100 11/01/20 08:00 Endotracheal Tube Endotracheal Tube 11/01/20 08:00 60 11/01/20 07:57 87 20 60 11/01/20 07:52 99 11/01/20 07:00 89 20 106/39 (61) 100 11/01/20 06:00 87 19 107/48 (67) 11/01/20 05:00 84 20 94/37 (56) 11/01/20 04:00 Endotracheal Tube 11/01/20 04:00 97.9 89 20 95/47 (63) 100 11/01/20 04:00 60 11/01/20 04:00 87 11/01/20 03:16 79 20 60 11/01/20 03:00 86 16 103/42 (62) 100 11/01/20 02:00 82 19 127/49 (75) 100 11/01/20 01:00 84 20 131/60 (83) 100 11/01/20 00:00 60 11/01/20 00:00 Endotracheal Tube 11/01/20 00:00 83 11/01/20 00:00 97.6 85 20 127/49 (75) 100 10/31/20 23:17 76 20 60 10/31/20 23:00 20 117/74 (88) 100 10/31/20 22:00 83 20 119/56 (77) 100 10/31/20 21:00 84 20 123/73 (90) 100 10/31/20 20:00 98.2 89 12 137/86 (103) 92 10/31/20 20:00 Endotracheal Tube 10/31/20 20:00 92 10/31/20 19:00 99 20 125/66 (85) 93 10/31/20 18:51 96 20 100 10/31/20 18:25 100 10/31/20 18:00 91 22 103/50 (67) 96 10/31/20 17:28 88 21 98 30 10/31/20 17:00 89 23 112/58 (76) 96 10/31/20 16:00 97.0 85 24 118/58 (78) 99 10/31/20 16:00 Bi-pap 2.0 Bi-pap Bi-pap 10/31/20 16:00 30 10/31/20 15:41 92 17 97 Bi-Pap 30 10/31/20 15:17 69 10/31/20 15:12 90 22 99 30 10/31/20 15:00 83 21 98/44 (62) 98 10/31/20 14:30 97.0 75 19 105/68 (80) 99 10/31/20 14:00 79 22 115/44 (67) 98 10/31/20 13:30 84 23 115/49 (71) 98 10/31/20 13:14 94 24 99 30 10/31/20 13:00 80 25 117/58 (77) 95 10/31/20 12:30 85 19 129/44 (72) 97 10/31/20 12:15 79 22 113/51 (71) 99 10/31/20 12:00 30 10/31/20 12:00 97.5 85 21 114/55 (74) 97 10/31/20 12:00 Bi-pap 2.0 Bi-pap Bi-pap 10/31/20 11:45 97.3 81 22 119/43 (68) 99 10/31/20 11:30 97.0 80 21 106/65 (79) 98 10/31/20 11:23 71 10/31/20 11:15 79 21 108/53 (71) 97 10/31/20 11:13 80 21 98 30 10/31/20 11:00 79 20 115/48 (70) 98 10/31/20 10:00 85 22 102/48 (66) 98 10/31/20 09:45 83 23 112/42 (65) 98 10/31/20 09:30 80 19 109/40 (63) 99 10/31/20 09:16 86 22 98 30 10/31/20 09:15 78 21 100/74 (83) 98 10/31/20 09:00 97.3 78 19 106/46 (66) 99 10/31/20 08:20 76 10/31/20 08:00 30 10/31/20 08:00 Bi-pap 2.0 Bi-pap Bi-pap 10/31/20 08:00 76 19 104/42 (62) 99 10/31/20 07:54 77 10/31/20 07:29 80 21 99 30 10/31/20 07:00 77 19 103/50 (67) 99 Intake and Output 11/01/20 11/02/20 19:00 07:00 Intake Total 957.0 ml 627.5 ml Output Total 545 ml 690 ml Balance 412.0 ml -62.5 ml Free Water 100 ml IV Total 557.0 ml 192.5 ml Tube Feeding 400 ml 335 ml Output Urine Total 345 ml 615 ml Stool Total 200 ml 75 ml Labs Test 10/31/20 06:00 10/31/20 08:03 10/31/20 09:25 10/31/20 15:57 White Blood Count 4.4 K/UL (4.8-10.8) 4.5 K/UL (4.8-10.8) Red Blood Count 2.65 M/UL (4.20-5.40) 2.69 M/UL (4.20-5.40) Hemoglobin 7.9 G/DL (12.0-16.0) 7.8 G/DL (12.0-16.0) Hematocrit 25.3 % (37.0-47.0) 25.5 % (37.0-47.0) Mean Corpuscular Volume 96 FL (80-99) 95 FL (80-99) Mean Corpuscular Hemoglobin 29.8 PG (27.0-31.0) 29.1 PG (27.0-31.0) Mean Corpuscular Hemoglobin Concent 31.2 G/DL (32.0-36.0) 30.7 G/DL (32.0-36.0) Red Cell Distribution Width 19.2 % (11.6-14.8) 19.1 % (11.6-14.8) Platelet Count 134 K/UL (150-450) 127 K/UL (150-450) Mean Platelet Volume 8.0 FL (6.5-10.1) 8.4 FL (6.5-10.1) Neutrophils (%) (Auto) % (45.0-75.0) % (45.0-75.0) Lymphocytes (%) (Auto) % (20.0-45.0) % (20.0-45.0) Monocytes (%) (Auto) % (1.0-10.0) % (1.0-10.0) Eosinophils (%) (Auto) % (0.0-3.0) % (0.0-3.0) Basophils (%) (Auto) % (0.0-2.0) % (0.0-2.0) Differential Total Cells Counted 100 100 Neutrophils % (Manual) 79 % (45-75) 78 % (45-75) Lymphocytes % (Manual) 10 % (20-45) 11 % (20-45) Monocytes % (Manual) 8 % (1-10) 4 % (1-10) Eosinophils % (Manual) 0 % (0-3) 2 % (0-3) Basophils % (Manual) 0 % (0-2) 0 % (0-2) Band Neutrophils 3 % (0-8) 5 % (0-8) Platelet Estimate Decreased Decreased Platelet Morphology Normal Normal Hypochromasia 1+ 1+ Anisocytosis 2+ 1+ Prothrombin Time 11.8 SEC (9.30-11.50) Prothromb Time International Ratio 1.1 (0.9-1.1) Sodium Level 141 MMOL/L (136-145) 141 MMOL/L (136-145) Potassium Level 2.7 MMOL/L (3.5-5.1) 2.7 MMOL/L (3.5-5.1) Chloride Level 109 MMOL/L (98-107) 109 MMOL/L (98-107) Carbon Dioxide Level 21 MMOL/L (21-32) 19 MMOL/L (21-32) Anion Gap 12 mmol/L (5-15) 12 mmol/L (5-15) Blood Urea Nitrogen 35 mg/dL (7-18) 38 mg/dL (7-18) Creatinine 2.0 MG/DL (0.55-1.30) 2.0 MG/DL (0.55-1.30) Estimat Glomerular Filtration Rate 23.8 mL/min (>60) 23.8 mL/min (>60) Glucose Level 135 MG/DL (74-106) 141 MG/DL (74-106) Calcium Level 7.5 MG/DL (8.5-10.1) 7.5 MG/DL (8.5-10.1) Arterial Blood pH 7.119 (7.350-7.450) 7.109 (7.350-7.450) Arterial Blood Partial Pressure CO2 52.1 mmHg (35.0-45.0) 56.2 mmHg (35.0-45.0) Arterial Blood Partial Pressure O2 86.7 mmHg (75.0-100.0) 80.3 mmHg (75.0-100.0) Arterial Blood HCO3 16.5 mmol/L (22.0-26.0) 17.4 mmol/L (22.0-26.0) Arterial Blood Oxygen Saturation 94.5 % (95-100) 94.8 % (95-100) Arterial Blood Base Excess -12.2 (-2-2) -11.9 (-2-2) Gallo Test Positive Positive Total Bilirubin 0.3 MG/DL (0.2-1.0) Aspartate Amino Transf (AST/SGOT) 9 U/L (15-37) Alanine Aminotransferase (ALT/SGPT) 8 U/L (12-78) Alkaline Phosphatase 53 U/L (46-116) Total Protein 4.8 G/DL (6.4-8.2) Albumin 2.3 G/DL (3.4-5.0) Globulin 2.5 g/dL Albumin/Globulin Ratio 0.9 (1.0-2.7) Test 10/31/20 19:53 11/01/20 07:00 11/01/20 08:13 11/02/20 04:33 Arterial Blood pH 7.333 (7.350-7.450) 7.403 (7.350-7.450) Arterial Blood Partial Pressure CO2 28.7 mmHg (35.0-45.0) 29.0 mmHg (35.0-45.0) Arterial Blood Partial Pressure O2 421.9 mmHg (75.0-100.0) 193.8 mmHg (75.0-100.0) Arterial Blood HCO3 14.9 mmol/L (22.0-26.0) 17.7 mmol/L (22.0-26.0) Arterial Blood Oxygen Saturation 98.4 % (95-100) 98.2 % (95-100) Arterial Blood Base Excess -9.8 (-2-2) -6.1 (-2-2) Gallo Test Positive Positive White Blood Count 4.3 K/UL (4.8-10.8) 6.3 K/UL (4.8-10.8) Red Blood Count 3.01 M/UL (4.20-5.40) 3.16 M/UL (4.20-5.40) Hemoglobin 8.9 G/DL (12.0-16.0) 9.2 G/DL (12.0-16.0) Hematocrit 27.0 % (37.0-47.0) 28.4 % (37.0-47.0) Mean Corpuscular Volume 90 FL (80-99) 90 FL (80-99) Mean Corpuscular Hemoglobin 29.5 PG (27.0-31.0) 29.2 PG (27.0-31.0) Mean Corpuscular Hemoglobin Concent 33.0 G/DL (32.0-36.0) 32.6 G/DL (32.0-36.0) Red Cell Distribution Width 18.3 % (11.6-14.8) 18.3 % (11.6-14.8) Platelet Count 118 K/UL (150-450) 162 K/UL (150-450) Mean Platelet Volume 8.3 FL (6.5-10.1) 9.0 FL (6.5-10.1) Neutrophils (%) (Auto) % (45.0-75.0) % (45.0-75.0) Lymphocytes (%) (Auto) % (20.0-45.0) % (20.0-45.0) Monocytes (%) (Auto) % (1.0-10.0) % (1.0-10.0) Eosinophils (%) (Auto) % (0.0-3.0) % (0.0-3.0) Basophils (%) (Auto) % (0.0-2.0) % (0.0-2.0) Differential Total Cells Counted 100 Neutrophils % (Manual) 77 % (45-75) Lymphocytes % (Manual) 10 % (20-45) Monocytes % (Manual) 9 % (1-10) Eosinophils % (Manual) 0 % (0-3) Basophils % (Manual) 0 % (0-2) Band Neutrophils 4 % (0-8) Platelet Estimate Decreased Platelet Morphology Normal Hypochromasia 1+ Anisocytosis 1+ Sodium Level 143 MMOL/L (136-145) 143 MMOL/L (136-145) Potassium Level 3.2 MMOL/L (3.5-5.1) 3.4 MMOL/L (3.5-5.1) Chloride Level 111 MMOL/L (98-107) 110 MMOL/L (98-107) Carbon Dioxide Level 20 MMOL/L (21-32) 19 MMOL/L (21-32) Anion Gap 12 mmol/L (5-15) 14 mmol/L (5-15) Blood Urea Nitrogen 40 mg/dL (7-18) 44 mg/dL (7-18) Creatinine 2.1 MG/DL (0.55-1.30) 2.3 MG/DL (0.55-1.30) Estimat Glomerular Filtration Rate 22.5 mL/min (>60) 20.3 mL/min (>60) Glucose Level 81 MG/DL (74-106) 108 MG/DL (74-106) Calcium Level 7.6 MG/DL (8.5-10.1) 7.3 MG/DL (8.5-10.1) Phosphorus Level 2.5 MG/DL (2.5-4.9) 2.8 MG/DL (2.5-4.9) Magnesium Level 1.5 MG/DL (1.8-2.4) 2.0 MG/DL (1.8-2.4) Total Bilirubin 0.7 MG/DL (0.2-1.0) 0.5 MG/DL (0.2-1.0) Aspartate Amino Transf (AST/SGOT) 11 U/L (15-37) 12 U/L (15-37) Alanine Aminotransferase (ALT/SGPT) 8 U/L (12-78) 14 U/L (12-78) Alkaline Phosphatase 56 U/L (46-116) 61 U/L (46-116) Total Protein 4.2 G/DL (6.4-8.2) 4.7 G/DL (6.4-8.2) Albumin 1.8 G/DL (3.4-5.0) 1.8 G/DL (3.4-5.0) Globulin 2.4 g/dL 2.9 g/dL Albumin/Globulin Ratio 0.8 (1.0-2.7) 0.6 (1.0-2.7) Digoxin Level 0.9 NG/ML (0.9-2.0) Uric Acid 7.5 MG/DL (2.6-7.2) C-Reactive Protein, Quantitative 17.1 mg/dL (0.00-0.90) Pro-B-Type Natriuretic Peptide > 05732 pg/mL (0-125) Height (Feet): 5 Height (Inches): 0.00 Weight (Pounds): 145 Objective Physical Exam General: Awake and alert, no acute distress HEENT: NC/AT. EOMI. Cardiovascular: Irregularly irregular rhythm. Resp: Normal work of breathing. ++vent Abdomen: Abdomen is soft, nondistended. Nontender Skin: Intact. No abrasions, laceration or rash over the exposed skin MSK: Normal tone and bulk. Moving all extremities. Neuro: Awake and alert. Mentating appropriately. Hawk Ma MD Nov 02, 2020 06:33
--- NOTE | 2020-11-02 07:19 | NUR ---
NURSE NOTES: Received report from SERGIO Heaton. Patient in bed resting, no active s/s cardiac, respiratory distress noticed at this time. Patient open eyes spontaneously, track. Patient A. fib with HR 78, ETT 7 23cm on lip line. Vent AC 20 TV 450 PEEP 5 Fio2 30%, O2 sat 100% at this time. Rectal tube draining well to gravity, Green Catheter draining well to gravity, patent, intact. Left subclavian TLC patent, intact. Levophed running @ 2mcg/min, 7.5ml/h, BP 127/70. Bed in lowest position, side rails upx3, call light within reach, bed alarm on, Will continue to monitor.
--- NOTE | 2020-11-02 07:20 | NUR ---
NURSE HAND-OFF REPORT: Latest Vital Signs: Temperature 98.2 , Pulse 80 , B/P 118 /58 , Respiratory Rate 20 , O2 SAT 100 , Simple Mask, O2 Flow Rate 2.0 . Vital Sign Comment: [Stable] EKG Rhythm: Atrial Fibrillation Rhythm change?: N MD Notified?: - MD Response: Latest Elizabeth Fall Score: 70 Fall Risk: High Risk Safety Measures: Call light Within Reach, Bed Alarm Zone 1, Side Rails Side Rails x3, Bed position Low and Locked. Fall Precautions: Yellow Socks Patient Fall Education Report given to [SERGIO Daley].
[2020-11-02] MEDS: Digoxin 0.125mg tab GT SCH (08:06)
[2020-11-02] MEDS: Pantoprazole Inj IVP SCH ×2 (08:06→20:51)
[2020-11-02] MEDS: Eliquis 2.5mg tablet ORAL SCH ×2 (08:07→18:21)
--- NOTE | 2020-11-02 09:30 | NUR ---
NURSE NOTES: DARREN Pedro at the nursing station, made aware of result of ABG, no new order received at this time. Will continue to follow up.
--- NOTE | 2020-11-02 09:30 | NUR ---
RESPIRATORY NOTE: Placed pt on CPAP PS 8, +5, 30% fio2. Spo2 100% prior to weaning. Pt Awake and alert. Pt spontaneous volumes <200. RR increased to 30s-40s. Spo2 remained 96-100%. Increased PS to 10 with no increase in volumes. VT remained <200. RSBI 138. NIF -13. VC 144. Pt did not meet criteria for SBT. Placed back on previously ordered ventilator settings. RN aware. Will continue to monitor and follow plan of care.
--- NOTE | 2020-11-02 10:12 | Nephrology Progress Note ---
Assessment/Plan Problem List: (1) Acute kidney injury (2) Anemia (3) Hyperkalemia (4) Elevated troponin (5) Pneumonia due to COVID-19 virus (6) Hypothyroidism Assessment Plan November 02: Patient remains intubated on ventilator. FiO2 30%. Labs reviewed. Low potassium addressed. Medication list reviewed. Patient on Lasix 40 mg every 8 hours. Serum creatinine higher to 2.3. Feeding changed to Nepro. Potassium supplement given. Continue to monitor renal parameters. November 01: Seen in ICU. Now intubated on ventilator. Discussed with RN. Labs results noted. Abnormal electrolytes addressed. Discussed with RN. Continue per consultants. October 31: Patient seen in ICU. Discussed with SERGIO Miller. ABG noted. Patient acidotic. Being transfused. Potassium is being replaced. Due for another ABG and possible intubation if needed. Conferred with pulmonary and cardiology. October 30: Labs reviewed. Potassium elevated. Kayexalate ordered. Continue to monitor hemoglobin hematocrit and renal parameters. Serum creatinine 2.1. Remains on BiPAP. October 29: Seen in ICU. Discussed with SERGIO Wilkerson. Hemoglobin low. Transfuse 1 unit of packed RBCs. Potassium supplements IV given. Midodrine discontinued. Serum creatinine 2.2 stable. Patient remains on BiPAP. Continue per consultants. Continue to monitor hemoglobin hematocrit electrolytes and renal parameters. October 28: Seen in ICU. Remains on BiPAP. Low potassium and low magnesium addressed. Serum creatinine plateaued at 2.2. Continue per current treatment plan. October 27: Patient in ICU. On BiPAP. Serum creatinine rising. Blood pressure more stable. Will give 100 mg Lasix IV push with the hope of reversing oliguria. Medication list reviewed. Continue to monitor renal parameters. October 26: Seen in ICU. On pressors for low blood pressure. Serum creatinine 2.1. Albumin bolus given. Stress dose of steroids initiated. Continue to monitor renal parameters. Continue per consultants. October 25: Patient seen and examined. Trendelenburg. Blood pressure low. Tachycardic. Discussed with RN. Patient to be transferred to ICU. Discussed with ICU charge nurse and hospital charge nurse. Meanwhile patient started on Albumin bolus and 100 cc an hour D5 normal saline. Patient to be started on pressors while in ICU. Patient full code. October 24: No CHEM panel drawn today.. Renal parameters stable. Patient had a GT placed yesterday. Will check labs tomorrow. Medication list reviewed. October 23: Labs reviewed. Renal parameters unchanged. Creatinine 1.9. Continue current management. Medication list reviewed. October 22: Labs reviewed. Serum creatinine lower at 1.8. Patient started on clear liquid. Patient refuses p.o. medications and food at times. Continue per consultants. October 21: Labs reviewed. Serum creatinine unchanged. Continue per consulta nts. Continue to monitor renal parameters. October 20: Today's labs reviewed. Serum creatinine unchanged. RN reports patient not taking any p.o. meds. Continue per consultants. Serum creatinine appears to be baseline. October 19: Today's labs still not done yet. RN informed. Albumin bolus given again. Continue to monitor electrolytes and renal parameters. Per orders October 18: Patient hypotensive. Due for blood transfusion. Will give albumin bolus. Continue to monitor renal parameters and electrolytes. Labs and medication list reviewed Subjective ROS Limited/Unobtainable: Yes Objective Objective Last 24 Hour Vital Signs Date Time Temp Pulse Resp B/P (MAP) Pulse Ox O2 Delivery O2 Flow Rate FiO2 11/02/20 09:00 81 0 144/60 (88) 100 11/02/20 08:06 80 11/02/20 08:00 80 11/02/20 08:00 98.1 77 0 120/61 (80) 100 11/02/20 08:00 Endotracheal Tube Endotracheal Tube 11/02/20 08:00 30 11/02/20 07:47 82 22 30 11/02/20 07:00 80 20 118/58 (78) 100 11/02/20 06:00 78 20 119/63 (81) 100 11/02/20 05:00 82 18 130/60 (83) 99 11/02/20 04:00 81 11/02/20 04:00 Endotracheal Tube Endotracheal Tube 11/02/20 04:00 98.2 97 18 134/100 (111) 98 11/02/20 04:00 30 11/02/20 03:02 87 20 30 11/02/20 03:00 81 20 124/71 (88) 99 11/02/20 02:00 77 18 111/58 (75) 99 11/02/20 01:24 98.2 11/02/20 01:00 92 18 121/60 (80) 98 11/02/20 00:00 98.2 91 20 116/48 (70) 98 11/02/20 00:00 30 11/02/20 00:00 96 11/02/20 00:00 Endotracheal Tube Endotracheal Tube 11/01/20 23:00 87 20 115/53 (73) 98 11/01/20 22:30 30 11/01/20 22:25 82 20 30 11/01/20 22:00 79 20 102/47 (65) 100 11/01/20 21:00 91 20 104/40 (61) 98 11/01/20 20:00 Endotracheal Tube Endotracheal Tube 11/01/20 20:00 98.5 86 21 105/34 (57) 99 11/01/20 20:00 106 11/01/20 19:07 117 22 35 11/01/20 19:00 101 22 113/54 (73) 99 11/01/20 18:00 97 21 120/63 (82) 99 11/01/20 17:00 88 20 131/54 (79) 100 11/01/20 16:25 35 11/01/20 16:25 88 20 35 11/01/20 16:00 97.9 88 20 123/58 (79) 100 11/01/20 16:00 Endotracheal Tube Endotracheal Tube 11/01/20 16:00 40 11/01/20 16:00 88 11/01/20 15:30 90 20 120/63 (82) 100 11/01/20 15:12 95 20 40 11/01/20 15:00 92 20 99/51 (67) 100 11/01/20 14:00 92 19 132/37 (68) 100 11/01/20 13:45 87 15 114/58 (76) 99 11/01/20 13:30 100 11 120/58 (78) 100 11/01/20 13:15 86 20 40 11/01/20 13:15 89 20 94/37 (56) 100 11/01/20 13:00 89 20 106/57 (73) 100 11/01/20 12:45 91 18 115/44 (67) 100 11/01/20 12:30 94 19 131/59 (83) 100 11/01/20 12:15 94 20 127/56 (79) 99 11/01/20 12:00 Endotracheal Tube Endotracheal Tube 11/01/20 12:00 97 15 138/65 (89) 97 11/01/20 12:00 100 11/01/20 11:45 97.3 88 20 80/37 (51) 100 11/01/20 11:40 87 20 94/49 (64) 100 11/01/20 11:28 82/40 11/01/20 11:00 85 20 82/40 (54) 100 11/01/20 10:46 40 11/01/20 10:44 87 20 40 Intake and Output 11/01/20 11/02/20 19:00 07:00 Intake Total 957.0 ml 670.0 ml Output Total 545 ml 765 ml Balance 412.0 ml -95.0 ml Free Water 100 ml IV Total 557.0 ml 200.0 ml Tube Feeding 400 ml 370 ml Output Urine Total 345 ml 690 ml Stool Total 200 ml 75 ml Current Medications Medications (Trade) Dose Ordered Sig/Yolanda Route PRN Reason Start Time Stop Time Status Last Admin Dose Admin Acetaminophen (Tylenol) 500 mg Q6HR PRN ORAL Mild Pain 1-3 10/17/20 17:45 11/16/20 17:44 11/02/20 00:54 Acetaminophen (Tylenol) 500 mg Q6HR PRN ORAL fever >100 10/17/20 18:00 11/16/20 17:59 Acetaminophen (Tylenol) 650 mg Q4H PRN ORAL Pain Scale (6-10) 10/17/20 19:15 11/16/20 19:14 Apixaban (Eliquis) 2.5 mg BID ORAL 10/24/20 18:00 01/22/21 17:59 11/02/20 08:07 Chlorhexidine Gluconate (Eve-Hex 2%) 1 applic DAILY@1999 TOPIC 10/22/20 20:00 01/20/21 19:59 11/01/20 19:43 Digoxin (Lanoxin) 0.125 mg DAILY GT 10/30/20 09:00 01/28/21 08:59 11/02/20 08:06 Furosemide (Lasix) 40 mg EVERY 8 HOURS IV 10/31/20 14:00 11/30/20 13:59 11/02/20 05:49 Levothyroxine Sodium (Synthroid) 50 mcg DAILY@0630 ORAL 10/19/20 06:30 11/18/20 06:29 11/02/20 05:49 Norepinephrine Bitartrate 250 ml @ 0 mls/hr Q24H PRN IV For hypotension 11/01/20 11:17 11/04/20 11:16 11/01/20 11:28 Ondansetron HCl (Zofran) 4 mg Q6H PRN IVP Nausea & Vomiting 10/17/20 21:15 11/16/20 21:14 Pantoprazole (Protonix) 40 mg DAILY IVP 11/01/20 09:00 11/25/20 20:59 11/02/20 08:06 Piperacillin Sod/ Tazobactam Sod 3.375 gm/Sodium Chloride 110 ml @ 27.5 mls/hr Q12H IVPB 10/26/20 14:00 11/02/20 13:59 11/02/20 01:56 Potassium Chloride 100 ml @ 50 mls/hr ONCE ONCE IVPB 11/02/20 09:30 11/02/20 11:29 11/02/20 09:18 Laboratory Tests 11/02/20 04:33: White Blood Count 6.3, Red Blood Count 3.16L, Hemoglobin 9.2L, Hematocrit 28.4L, Mean Corpuscular Volume 90, Mean Corpuscular Hemoglobin 29.2, Mean Corpuscular Hemoglobin Concent 32.6, Red Cell Distribution Width 18.3H, Platelet Count 162, Mean Platelet Volume 9.0, Neutrophils (%) (Auto) , Lymphocytes (%) (Auto) , Monocytes (%) (Auto) , Eosinophils (%) (Auto) , Basophils (%) (Auto) , Differential Total Cells Counted 100, Neutrophils % (Manual) 81H, Lymphocytes % (Manual) 12L, Monocytes % (Manual) 4, Eosinophils % (Manual) 0, Basophils % (Manual) 0, Band Neutrophils 3, Platelet Estimate Adequate, Platelet Morphology Normal, Hypochromasia 1+, Anisocytosis 1+, Sodium Level 143, Potassium Level 3.4L, Chloride Level 110H, Carbon Dioxide Level 19L, Anion Gap 14, Blood Urea Nitrogen 44H, Creatinine 2.3H, Estimat Glomerular Filtration Rate 20.3, Glucose Level 108H, Uric Acid 7.5H, Calcium Level 7.3L, Phosphorus Level 2.8, Magnesium Level 2.0, Total Bilirubin 0.5, Aspartate Amino Transf (AST/SGOT) 12L, Alanine Aminotransferase (ALT/SGPT) 14, Alkaline Phosphatase 61, C-Reactive Protein, Quantitative 17.1H, Pro-B-Type Natriuretic Peptide > 94295D, Total Protein 4.7L, Albumin 1.8L, Globulin 2.9, Albumin/Globulin Ratio 0.6L 11/02/20 09:12: Arterial Blood pH 7.412, Arterial Blood Partial Pressure CO2 27.7L, Arterial Blood Partial Pressure O2 104.3H, Arterial Blood HCO3 17.2*L, Arterial Blood Oxygen Saturation 97.2, Arterial Blood Base Excess -6.3L, Gallo Test Positive Height (Feet): 5 Height (Inches): 0.00 Weight (Pounds): 145 General Appearance: no apparent distress EENT: other Cardiovascular: tachycardia Respiratory/Chest: decreased breath sounds Abdomen: distended Dustin Gómez MD Nov 02, 2020 10:11
--- NOTE | 2020-11-02 10:13 | NUR ---
NURSE NOTES: RT made aware per Dr. Rocha change AC to 10, ABG in one hour, order noted entered, carried out. Will continue to follow up.
--- NOTE | 2020-11-02 10:16 | NUR ---
RESPIRATORY NOTE: Decreased RR to [address] Woods post ABG. RN aware. ABG to be drawn in 1 hr. Will continue to closely monitor.
--- NOTE | 2020-11-02 11:19 | Infectious Diseases Prog Note ---
Assessment/Plan Assessment/Plan IMPRESSION: Pneumonia Hypercapnic respiratory failure Recent history of COVID disease, Acute renal failure, Severe aortic stenosis Atrial fibrillation, hypothyroidism, Anemia. Chronic DVT of R leg Hypotension Gastrostomy status Respiratory acidosis RECOMMENDATION: Continue Zosyn until expiration time sputum culture Chest US Subjective ROS Limited/Unobtainable: Yes Allergies: Coded Allergies: No Known Allergies (Unverified , 10/17/20) Objective Last 24 Hour Vital Signs Date Time Temp Pulse Resp B/P (MAP) Pulse Ox O2 Delivery O2 Flow Rate FiO2 11/02/20 10:13 30 11/02/20 10:00 94 0 142/72 (95) 100 11/02/20 09:00 81 0 144/60 (88) 100 11/02/20 08:06 80 11/02/20 08:00 80 11/02/20 08:00 98.1 77 0 120/61 (80) 100 11/02/20 08:00 Endotracheal Tube Endotracheal Tube 11/02/20 08:00 30 11/02/20 07:47 82 22 30 11/02/20 07:00 80 20 118/58 (78) 100 11/02/20 06:00 78 20 119/63 (81) 100 11/02/20 05:00 82 18 130/60 (83) 99 11/02/20 04:00 81 11/02/20 04:00 Endotracheal Tube Endotracheal Tube 11/02/20 04:00 98.2 97 18 134/100 (111) 98 11/02/20 04:00 30 11/02/20 03:02 87 20 30 11/02/20 03:00 81 20 124/71 (88) 99 11/02/20 02:00 77 18 111/58 (75) 99 11/02/20 01:24 98.2 11/02/20 01:00 92 18 121/60 (80) 98 11/02/20 00:00 98.2 91 20 116/48 (70) 98 11/02/20 00:00 30 11/02/20 00:00 96 11/02/20 00:00 Endotracheal Tube Endotracheal Tube 11/01/20 23:00 87 20 115/53 (73) 98 11/01/20 22:30 30 11/01/20 22:25 82 20 30 11/01/20 22:00 79 20 102/47 (65) 100 11/01/20 21:00 91 20 104/40 (61) 98 11/01/20 20:00 Endotracheal Tube Endotracheal Tube 11/01/20 20:00 98.5 86 21 105/34 (57) 99 11/01/20 20:00 106 11/01/20 19:07 117 22 35 11/01/20 19:00 101 22 113/54 (73) 99 11/01/20 18:00 97 21 120/63 (82) 99 11/01/20 17:00 88 20 131/54 (79) 100 11/01/20 16:25 35 11/01/20 16:25 88 20 35 11/01/20 16:00 97.9 88 20 123/58 (79) 100 11/01/20 16:00 Endotracheal Tube Endotracheal Tube 11/01/20 16:00 40 11/01/20 16:00 88 11/01/20 15:30 90 20 120/63 (82) 100 11/01/20 15:12 95 20 40 11/01/20 15:00 92 20 99/51 (67) 100 11/01/20 14:00 92 19 132/37 (68) 100 11/01/20 13:45 87 15 114/58 (76) 99 11/01/20 13:30 100 11 120/58 (78) 100 11/01/20 13:15 86 20 40 11/01/20 13:15 89 20 94/37 (56) 100 11/01/20 13:00 89 20 106/57 (73) 100 11/01/20 12:45 91 18 115/44 (67) 100 11/01/20 12:30 94 19 131/59 (83) 100 11/01/20 12:15 94 20 127/56 (79) 99 11/01/20 12:00 Endotracheal Tube Endotracheal Tube 11/01/20 12:00 97 15 138/65 (89) 97 11/01/20 12:00 100 11/01/20 11:45 97.3 88 20 80/37 (51) 100 11/01/20 11:40 87 20 94/49 (64) 100 11/01/20 11:28 82/40 Height (Feet): 5 Height (Inches): 0.00 Weight (Pounds): 145 HEENT: other - nasal bridge ulce/ eythema, orally intubated Respiratory/Chest: lungs clear, other - on ventilator Cardiovascular: normal rate Abdomen: soft, non tender, other - GT feeding Extremities: other Skin: other - developing scral pressure ulcer Neurologic/Psychiatric: other - mor alert, responsive Laboratory Tests Test 11/02/20 04:33 11/02/20 09:12 White Blood Count 6.3 K/UL (4.8-10.8) Red Blood Count 3.16 M/UL (4.20-5.40) L Hemoglobin 9.2 G/DL (12.0-16.0) L Hematocrit 28.4 % (37.0-47.0) L Mean Corpuscular Volume 90 FL (80-99) Mean Corpuscular Hemoglobin 29.2 PG (27.0-31.0) Mean Corpuscular Hemoglobin Concent 32.6 G/DL (32.0-36.0) Red Cell Distribution Width 18.3 % (11.6-14.8) H Platelet Count 162 K/UL (150-450) Mean Platelet Volume 9.0 FL (6.5-10.1) Neutrophils (%) (Auto) % (45.0-75.0) Lymphocytes (%) (Auto) % (20.0-45.0) Monocytes (%) (Auto) % (1.0-10.0) Eosinophils (%) (Auto) % (0.0-3.0) Basophils (%) (Auto) % (0.0-2.0) Differential Total Cells Counted 100 Neutrophils % (Manual) 81 % (45-75) H Lymphocytes % (Manual) 12 % (20-45) L Monocytes % (Manual) 4 % (1-10) Eosinophils % (Manual) 0 % (0-3) Basophils % (Manual) 0 % (0-2) Band Neutrophils 3 % (0-8) Platelet Estimate Adequate Platelet Morphology Normal Hypochromasia 1+ Anisocytosis 1+ Sodium Level 143 MMOL/L (136-145) Potassium Level 3.4 MMOL/L (3.5-5.1) L Chloride Level 110 MMOL/L (98-107) H Carbon Dioxide Level 19 MMOL/L (21-32) L Anion Gap 14 mmol/L (5-15) Blood Urea Nitrogen 44 mg/dL (7-18) H Creatinine 2.3 MG/DL (0.55-1.30) H Estimat Glomerular Filtration Rate 20.3 mL/min (>60) Glucose Level 108 MG/DL (74-106) H Uric Acid 7.5 MG/DL (2.6-7.2) H Calcium Level 7.3 MG/DL (8.5-10.1) L Phosphorus Level 2.8 MG/DL (2.5-4.9) Magnesium Level 2.0 MG/DL (1.8-2.4) Total Bilirubin 0.5 MG/DL (0.2-1.0) Aspartate Amino Transf (AST/SGOT) 12 U/L (15-37) L Alanine Aminotransferase (ALT/SGPT) 14 U/L (12-78) Alkaline Phosphatase 61 U/L (46-116) C-Reactive Protein, Quantitative 17.1 mg/dL (0.00-0.90) H Pro-B-Type Natriuretic Peptide > 51250 pg/mL (0-125) H Total Protein 4.7 G/DL (6.4-8.2) L Albumin 1.8 G/DL (3.4-5.0) L Globulin 2.9 g/dL Albumin/Globulin Ratio 0.6 (1.0-2.7) L Arterial Blood pH 7.412 (7.350-7.450) Arterial Blood Partial Pressure CO2 27.7 mmHg (35.0-45.0) L Arterial Blood Partial Pressure O2 104.3 mmHg (75.0-100.0) H Arterial Blood HCO3 17.2 mmol/L (22.0-26.0) *L Arterial Blood Oxygen Saturation 97.2 % (95-100) Arterial Blood Base Excess -6.3 (-2-2) L Gallo Test Positive Current Medications Medications (Trade) Dose Ordered Sig/Yolanda Route PRN Reason Start Time Stop Time Status Last Admin Dose Admin Acetaminophen (Tylenol) 500 mg Q6HR PRN ORAL Mild Pain 1-3 10/17/20 17:45 11/16/20 17:44 11/02/20 00:54 Acetaminophen (Tylenol) 500 mg Q6HR PRN ORAL fever >100 10/17/20 18:00 11/16/20 17:59 Acetaminophen (Tylenol) 650 mg Q4H PRN ORAL Pain Scale (6-10) 10/17/20 19:15 11/16/20 19:14 Apixaban (Eliquis) 2.5 mg BID ORAL 10/24/20 18:00 01/22/21 17:59 11/02/20 08:07 Chlorhexidine Gluconate (Eve-Hex 2%) 1 applic DAILY@2000 TOPIC 10/22/20 20:00 01/20/21 19:59 11/01/20 19:43 Digoxin (Lanoxin) 0.125 mg DAILY GT 10/30/20 09:00 01/28/21 08:59 11/02/20 08:06 Furosemide (Lasix) 40 mg EVERY 8 HOURS IV 10/31/20 14:00 11/30/20 13:59 11/02/20 05:49 Levothyroxine Sodium (Synthroid) 50 mcg DAILY@0630 ORAL 10/19/20 06:30 11/18/20 06:29 11/02/20 05:49 Norepinephrine Bitartrate 250 ml @ 0 mls/hr Q24H PRN IV For hypotension 11/01/20 11:17 11/04/20 11:16 11/01/20 11:28 Ondansetron HCl (Zofran) 4 mg Q6H PRN IVP Nausea & Vomiting 10/17/20 21:15 11/16/20 21:14 Pantoprazole (Protonix) 40 mg Q12HR IVP 11/02/20 21:00 11/25/20 20:59 Piperacillin Sod/ Tazobactam Sod 3.375 gm/Sodium Chloride 110 ml @ 27.5 mls/hr Q12H IVPB 10/26/20 14:00 11/02/20 13:59 11/02/20 01:56 Potassium Chloride 100 ml @ 50 mls/hr ONCE ONCE IVPB 11/02/20 09:30 11/02/20 11:29 11/02/20 09:18 Potassium Chloride (K-Dur) 20 meq TWICE A DAY GT 11/02/20 18:00 01/31/21 17:59 Luis Alvarado MD Nov 02, 2020 11:19
--- NOTE | 2020-11-02 11:43 | Surgery Progress Note ---
Surgery Progress Note Subjective Procedure Performed left subclavian central venous catheter insertion Additional Comments ill appearing on support no n/v labs noted exam unchanged Objective Last 24 Hour Vital Signs Date Time Temp Pulse Resp B/P (MAP) Pulse Ox O2 Delivery O2 Flow Rate FiO2 11/02/20 11:35 81 21 30 11/02/20 11:00 87 0 126/70 (88) 100 11/02/20 10:13 30 11/02/20 10:00 94 0 142/72 (95) 100 11/02/20 09:00 81 0 144/60 (88) 100 11/02/20 08:06 80 11/02/20 08:00 80 11/02/20 08:00 98.1 77 0 120/61 (80) 100 11/02/20 08:00 Endotracheal Tube Endotracheal Tube 11/02/20 08:00 30 11/02/20 07:47 82 22 30 11/02/20 07:00 80 20 118/58 (78) 100 11/02/20 06:00 78 20 119/63 (81) 100 11/02/20 05:00 82 18 130/60 (83) 99 11/02/20 04:00 81 11/02/20 04:00 Endotracheal Tube Endotracheal Tube 11/02/20 04:00 98.2 97 18 134/100 (111) 98 11/02/20 04:00 30 11/02/20 03:02 87 20 30 11/02/20 03:00 81 20 124/71 (88) 99 11/02/20 02:00 77 18 111/58 (75) 99 11/02/20 01:24 98.2 11/02/20 01:00 92 18 121/60 (80) 98 11/02/20 00:00 98.2 91 20 116/48 (70) 98 11/02/20 00:00 30 11/02/20 00:00 96 11/02/20 00:00 Endotracheal Tube Endotracheal Tube 11/01/20 23:00 87 20 115/53 (73) 98 11/01/20 22:30 30 11/01/20 22:25 82 20 30 11/01/20 22:00 79 20 102/47 (65) 100 11/01/20 21:00 91 20 104/40 (61) 98 11/01/20 20:00 Endotracheal Tube Endotracheal Tube 11/01/20 20:00 98.5 86 21 105/34 (57) 99 11/01/20 20:00 106 11/01/20 19:07 117 22 35 11/01/20 19:00 101 22 113/54 (73) 99 11/01/20 18:00 97 21 120/63 (82) 99 11/01/20 17:00 88 20 131/54 (79) 100 11/01/20 16:25 35 11/01/20 16:25 88 20 35 11/01/20 16:00 97.9 88 20 123/58 (79) 100 11/01/20 16:00 Endotracheal Tube Endotracheal Tube 11/01/20 16:00 40 11/01/20 16:00 88 11/01/20 15:30 90 20 120/63 (82) 100 11/01/20 15:12 95 20 40 11/01/20 15:00 92 20 99/51 (67) 100 11/01/20 14:00 92 19 132/37 (68) 100 11/01/20 13:45 87 15 114/58 (76) 99 11/01/20 13:30 100 11 120/58 (78) 100 11/01/20 13:15 86 20 40 11/01/20 13:15 89 20 94/37 (56) 100 11/01/20 13:00 89 20 106/57 (73) 100 11/01/20 12:45 91 18 115/44 (67) 100 11/01/20 12:30 94 19 131/59 (83) 100 11/01/20 12:15 94 20 127/56 (79) 99 11/01/20 12:00 Endotracheal Tube Endotracheal Tube 11/01/20 12:00 97 15 138/65 (89) 97 11/01/20 12:00 100 11/01/20 11:45 97.3 88 20 80/37 (51) 100 I&O Intake and Output 11/01/20 11/02/20 19:00 07:00 Intake Total 957.0 ml 670.0 ml Output Total 545 ml 765 ml Balance 412.0 ml -95.0 ml Free Water 100 ml IV Total 557.0 ml 200.0 ml Tube Feeding 400 ml 370 ml Output Urine Total 345 ml 690 ml Stool Total 200 ml 75 ml Dressing: saturated Cardiovascular: RSR Respiratory: decreased breath sounds Abdomen: soft, non-tender, present bowel sounds, non-distended Extremities: no tenderness, no cyanosis Laboratory Tests Test 11/02/20 04:33 11/02/20 09:12 White Blood Count 6.3 K/UL (4.8-10.8) Red Blood Count 3.16 M/UL (4.20-5.40) L Hemoglobin 9.2 G/DL (12.0-16.0) L Hematocrit 28.4 % (37.0-47.0) L Mean Corpuscular Volume 90 FL (80-99) Mean Corpuscular Hemoglobin 29.2 PG (27.0-31.0) Mean Corpuscular Hemoglobin Concent 32.6 G/DL (32.0-36.0) Red Cell Distribution Width 18.3 % (11.6-14.8) H Platelet Count 162 K/UL (150-450) Mean Platelet Volume 9.0 FL (6.5-10.1) Neutrophils (%) (Auto) % (45.0-75.0) Lymphocytes (%) (Auto) % (20.0-45.0) Monocytes (%) (Auto) % (1.0-10.0) Eosinophils (%) (Auto) % (0.0-3.0) Basophils (%) (Auto) % (0.0-2.0) Differential Total Cells Counted 100 Neutrophils % (Manual) 81 % (45-75) H Lymphocytes % (Manual) 12 % (20-45) L Monocytes % (Manual) 4 % (1-10) Eosinophils % (Manual) 0 % (0-3) Basophils % (Manual) 0 % (0-2) Band Neutrophils 3 % (0-8) Platelet Estimate Adequate Platelet Morphology Normal Hypochromasia 1+ Anisocytosis 1+ Sodium Level 143 MMOL/L (136-145) Potassium Level 3.4 MMOL/L (3.5-5.1) L Chloride Level 110 MMOL/L (98-107) H Carbon Dioxide Level 19 MMOL/L (21-32) L Anion Gap 14 mmol/L (5-15) Blood Urea Nitrogen 44 mg/dL (7-18) H Creatinine 2.3 MG/DL (0.55-1.30) H Estimat Glomerular Filtration Rate 20.3 mL/min (>60) Glucose Level 108 MG/DL (74-106) H Uric Acid 7.5 MG/DL (2.6-7.2) H Calcium Level 7.3 MG/DL (8.5-10.1) L Phosphorus Level 2.8 MG/DL (2.5-4.9) Magnesium Level 2.0 MG/DL (1.8-2.4) Total Bilirubin 0.5 MG/DL (0.2-1.0) Aspartate Amino Transf (AST/SGOT) 12 U/L (15-37) L Alanine Aminotransferase (ALT/SGPT) 14 U/L (12-78) Alkaline Phosphatase 61 U/L (46-116) C-Reactive Protein, Quantitative 17.1 mg/dL (0.00-0.90) H Pro-B-Type Natriuretic Peptide > 84040 pg/mL (0-125) H Total Protein 4.7 G/DL (6.4-8.2) L Albumin 1.8 G/DL (3.4-5.0) L Globulin 2.9 g/dL Albumin/Globulin Ratio 0.6 (1.0-2.7) L Arterial Blood pH 7.412 (7.350-7.450) Arterial Blood Partial Pressure CO2 27.7 mmHg (35.0-45.0) L Arterial Blood Partial Pressure O2 104.3 mmHg (75.0-100.0) H Arterial Blood HCO3 17.2 mmol/L (22.0-26.0) *L Arterial Blood Oxygen Saturation 97.2 % (95-100) Arterial Blood Base Excess -6.3 (-2-2) L Gallo Test Positive Plan Problems: (1) Anemia (2) Acute kidney injury (3) Atrial fibrillation (4) Hyperkalemia (5) Elevated troponin (6) Decubitus skin ulcer Assessment & Plan: Pt presented on admission with Multiple Medical Comorbidities including Covid-19 and Pressure Injuries. Primary Nurse reported Pt has been declining food and medications. Sacral DTPI that is evolving noted to Sacrum(L)6cm x (W)12.5cm.. Scattered Purpuric areas that are indurated noted to R and L cheek. Small wound that is 100% slough (L)0.6cm x (W)0.7cm noted at sacrococcygeal area within base of DTPI. MASD noted to Perineum and skin folds of Medial/posterior aspects of Both upper thighs. Affected areas are erythematous and macerated with scattered satellite lesions. DTPI L Heel (L)3cm x (W)4cm, Base of heel is maroon and fluctuant with small purpuric area (L)0.4cm x (W)0.9cm within base of DTPI. l Foot including toes are mottled and cool to touch. L Heel is boggy. L Heel including toes are Mottled and cool to touch. Tx.Plan: Apply Moisture Barrier Paste to Sacrum. Cover with Optifoam drsg.Change every 3 days and prn. Apply Moisture Barrier Paste to abdominal folds, Perineum and skin folds of both upper thighs. Apply Cavilon Skin Barrier to both heels. Cover each Heel with Optifoam drsg. Change every 7 days and prn. Reposition at least every 2hours or as tolerated. Off-load heels with pillow. (7) Malnutrition Assessment & Plan: She was able to self feed on right hand and took a bite of popsicle and tolerated without s.s of aspiration. After 1st bite, then she refused 2nd bite. After this was done, I offered her a cup of cranberry juice, she took few sips and tolerated without s.s of aspiration. I continued to offer but she refused further PO. A: 1. Functional swallow 2. Failure to thrive 3. abnormal electrolytes in setting of heart failure, NSTEMI, elevated BNP, etc.. P/Rec. 1. Pureed and thin liquid 2.3. Goal of care discussion DAILY ESTIMATED NEEDS: Needs based on Cardiac, pulmonary/ 51kg abw 25-30 kcals/kg [id number] total kcals 1-1.5 g protein/kg 51-76 g total protein 20-25 mL/kg [id number] total fluid mLs NUTRITION DIAGNOSIS: Swallowing difficulty R/T dysphagia, decreased cognitive fxn as evidenced by MANUAL EQUIPMENT MECHANIC recommends pureed moist texture diet at this time. CURRENT DIET:NPO PO DIET RECOMMENDATIONS: Liberalized REGULAR w/ poor PO (texture per MANUAL EQUIPMENT MECHANIC) ADDITIONAL RECOMMENDATIONS: * Calibrated bedscale wt * Monitor PO intake: refusing meds and foods at this time -> rec nonoral feeds w/ continued refusal of PO if part of POC * LOW NA diet w/ PO intake consistently >50% * 4 oz Ensure TID w/ meals (4oz at this time due to poor acceptance, may increase to 8oz w/ good acceptance) (8) Pneumonia due to COVID-19 virus Assessment & Plan: here appears to be increased left pleural fluid and generalized hazy parenchymal opacity, left greater than right. Heart remains enlarged Impression: Increased left pleural effusion Suspect increasing bilateral left greater than right pulmonary edema versus infiltrates worsening intubated on vent (9) Hypothyroidism Jim Orosco Nov 02, 2020 11:43
--- NOTE | 2020-11-02 11:54 | Pulmonology Progress Note ---
Subjective ROS Limited/Unobtainable: Yes Interval Events: Intubated 10/31/20 Constitutional: Reports: fever, other - resolved HEENT: Repors: no symptoms Respiratory: Reports: no symptoms Cardiovascular: Reports: no symptoms Gastrointestinal/Abdominal: Reports: other Psychiatric: Reports: other - refusing medications; s/p PEG Allergies: Coded Allergies: No Known Allergies (Unverified , 10/17/20) All Systems: reviewed and negative except above Objective Last 24 Hour Vital Signs Date Time Temp Pulse Resp B/P (MAP) Pulse Ox O2 Delivery O2 Flow Rate FiO2 11/02/20 11:35 81 21 30 11/02/20 11:00 87 0 126/70 (88) 100 11/02/20 10:13 30 11/02/20 10:00 94 0 142/72 (95) 100 11/02/20 09:00 81 0 144/60 (88) 100 11/02/20 08:06 80 11/02/20 08:00 80 11/02/20 08:00 98.1 77 0 120/61 (80) 100 11/02/20 08:00 Endotracheal Tube Endotracheal Tube 11/02/20 08:00 30 11/02/20 07:47 82 22 30 11/02/20 07:00 80 20 118/58 (78) 100 11/02/20 06:00 78 20 119/63 (81) 100 11/02/20 05:00 82 18 130/60 (83) 99 11/02/20 04:00 81 11/02/20 04:00 Endotracheal Tube Endotracheal Tube 11/02/20 04:00 98.2 97 18 134/100 (111) 98 11/02/20 04:00 30 11/02/20 03:02 87 20 30 11/02/20 03:00 81 20 124/71 (88) 99 11/02/20 02:00 77 18 111/58 (75) 99 11/02/20 01:24 98.2 11/02/20 01:00 92 18 121/60 (80) 98 11/02/20 00:00 98.2 91 20 116/48 (70) 98 11/02/20 00:00 30 11/02/20 00:00 96 11/02/20 00:00 Endotracheal Tube Endotracheal Tube 11/01/20 23:00 87 20 115/53 (73) 98 11/01/20 22:30 30 11/01/20 22:25 82 20 30 11/01/20 22:00 79 20 102/47 (65) 100 11/01/20 21:00 91 20 104/40 (61) 98 11/01/20 20:00 Endotracheal Tube Endotracheal Tube 11/01/20 20:00 98.5 86 21 105/34 (57) 99 11/01/20 20:00 106 11/01/20 19:07 117 22 35 11/01/20 19:00 101 22 113/54 (73) 99 11/01/20 18:00 97 21 120/63 (82) 99 11/01/20 17:00 88 20 131/54 (79) 100 11/01/20 16:25 35 11/01/20 16:25 88 20 35 11/01/20 16:00 97.9 88 20 123/58 (79) 100 11/01/20 16:00 Endotracheal Tube Endotracheal Tube 11/01/20 16:00 40 11/01/20 16:00 88 11/01/20 15:30 90 20 120/63 (82) 100 11/01/20 15:12 95 20 40 11/01/20 15:00 92 20 99/51 (67) 100 11/01/20 14:00 92 19 132/37 (68) 100 11/01/20 13:45 87 15 114/58 (76) 99 11/01/20 13:30 100 11 120/58 (78) 100 11/01/20 13:15 86 20 40 11/01/20 13:15 89 20 94/37 (56) 100 11/01/20 13:00 89 20 106/57 (73) 100 11/01/20 12:45 91 18 115/44 (67) 100 11/01/20 12:30 94 19 131/59 (83) 100 11/01/20 12:15 94 20 127/56 (79) 99 11/01/20 12:00 Endotracheal Tube Endotracheal Tube 11/01/20 12:00 97 15 138/65 (89) 97 11/01/20 12:00 100 l Intake and Output 11/01/20 11/02/20 19:00 07:00 Intake Total 957.0 ml 670.0 ml Output Total 545 ml 765 ml Balance 412.0 ml -95.0 ml Free Water 100 ml IV Total 557.0 ml 200.0 ml Tube Feeding 400 ml 370 ml Output Urine Total 345 ml 690 ml Stool Total 200 ml 75 ml General Appearance: no acute distress HEENT: atraumatic Respiratory: lungs clear Cardiovascular: normal rate, regular rhythm Abdomen: soft, non tender, other - s/p PEG Laboratory Tests 11/02/20 04:33: White Blood Count 6.3, Red Blood Count 3.16L, Hemoglobin 9.2L, Hematocrit 28.4L, Mean Corpuscular Volume 90, Mean Corpuscular Hemoglobin 29.2, Mean Corpuscular Hemoglobin Concent 32.6, Red Cell Distribution Width 18.3H, Platelet Count 162, Mean Platelet Volume 9.0, Neutrophils (%) (Auto) , Lymphocytes (%) (Auto) , Monocytes (%) (Auto) , Eosinophils (%) (Auto) , Basophils (%) (Auto) , Differential Total Cells Counted 100, Neutrophils % (Manual) 81H, Lymphocytes % (Manual) 12L, Monocytes % (Manual) 4, Eosinophils % (Manual) 0, Basophils % (Manual) 0, Band Neutrophils 3, Platelet Estimate Adequate, Platelet Morphology Normal, Hypochromasia 1+, Anisocytosis 1+, Sodium Level 143, Potassium Level 3.4L, Chloride Level 110H, Carbon Dioxide Level 19L, Anion Gap 14, Blood Urea Nitrogen 44H, Creatinine 2.3H, Estimat Glomerular Filtration Rate 20.3, Glucose Level 108H, Uric Acid 7.5H, Calcium Level 7.3L, Phosphorus Level 2.8, Magnesium Level 2.0, Total Bilirubin 0.5, Aspartate Amino Transf (AST/SGOT) 12L, Alanine Aminotransferase (ALT/SGPT) 14, Alkaline Phosphatase 61, C-Reactive Protein, Quantitative 17.1H, Pro-B-Type Natriuretic Peptide > 06295G, Total Protein 4.7L, Albumin 1.8L, Globulin 2.9, Albumin/Globulin Ratio 0.6L 11/02/20 09:12: Arterial Blood pH 7.412, Arterial Blood Partial Pressure CO2 27.7L, Arterial Blood Partial Pressure O2 104.3H, Arterial Blood HCO3 17.2*L, Arterial Blood Oxygen Saturation 97.2, Arterial Blood Base Excess -6.3L, Gallo Test Positive 11/02/20 11:37: Arterial Blood pH 7.392, Arterial Blood Partial Pressure CO2 30.4L, Arterial Blood Partial Pressure O2 103.3H, Arterial Blood HCO3 18.1L, Arterial Blood Oxygen Saturation 97.1, Arterial Blood Base Excess -6.0L, Gallo Test Positive Current Medications Medications (Trade) Dose Ordered Sig/Yolanda Route PRN Reason Start Time Stop Time Status Last Admin Dose Admin Acetaminophen (Tylenol) 500 mg Q6HR PRN ORAL Mild Pain 1-3 10/17/20 17:45 11/16/20 17:44 11/02/20 00:54 Acetaminophen (Tylenol) 500 mg Q6HR PRN ORAL fever >100 10/17/20 18:00 11/16/20 17:59 Acetaminophen (Tylenol) 650 mg Q4H PRN ORAL Pain Scale (6-10) 10/17/20 19:15 11/16/20 19:14 Apixaban (Eliquis) 2.5 mg BID ORAL 10/24/20 18:00 01/22/21 17:59 11/02/20 08:07 Chlorhexidine Gluconate (Eve-Hex 2%) 1 applic DAILY@2000 TOPIC 10/22/20 20:00 01/20/21 19:59 11/01/20 19:43 Digoxin (Lanoxin) 0.125 mg DAILY GT 10/30/20 09:00 01/28/21 08:59 11/02/20 08:06 Furosemide (Lasix) 40 mg EVERY 8 HOURS IV 10/31/20 14:00 11/30/20 13:59 11/02/20 05:49 Levothyroxine Sodium (Synthroid) 50 mcg DAILY@0630 ORAL 10/19/20 06:30 11/18/20 06:29 11/02/20 05:49 Norepinephrine Bitartrate 250 ml @ 0 mls/hr Q24H PRN IV For hypotension 11/01/20 11:17 11/04/20 11:16 11/01/20 11:28 Ondansetron HCl (Zofran) 4 mg Q6H PRN IVP Nausea & Vomiting 10/17/20 21:15 11/16/20 21:14 Pantoprazole (Protonix) 40 mg Q12HR IVP 11/02/20 21:00 11/25/20 20:59 Piperacillin Sod/ Tazobactam Sod 3.375 gm/Sodium Chloride 110 ml @ 27.5 mls/hr Q12H IVPB 10/26/20 14:00 11/02/20 13:59 11/02/20 01:56 Potassium Chloride (K-Dur) 20 meq TWICE A DAY GT 11/02/20 18:00 01/31/21 17:59 Assessment/Plan Assessment/Plan 1. CHF. 2. CAD/previous non-STEMI. 3. care home resident. 4. Bradycardia. 5. Atrial fibrillation. -Started on Eliquis 6. Renal insufficiency. -Nephro following 7. Troponin leak. - Cardio following 8. COVID-19 pneumonia, without fever or leukocytosis - Now intubated - ABG improved 9. Hypoxemia 10. 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 UTI, cheryl 12. Dysphagia -s/p PEG (10/23) 13. Hypotension; improved - s/p NS bolus - pressors as needed - will continue diureses Continue weaning trial The care of this patient was discussed with my supervising physician Time spent for this encounter was approximately 31 minutes Tl Pedro Nov 02, 2020 11:54
--- NOTE | 2020-11-02 13:05 | NUR ---
NURSE NOTES: Dr. Reyes at the bedside, made aware patient off pressor at this time for 3 hours, SBP 120s, no new order received at this time, will continue to monitor .
--- NOTE | 2020-11-02 13:44 | Cardiac Electrophysiology PN ---
Assessment/Plan Assessment/Plan 1. NSTEMI with elevated troponin of more than 0.2 and hx of prior IA The level has come down to 0.19, but the levels are flat and likely due to renal failure as the creatinine is 2.1. On aspirin and off Lopressor as hypotensive 2. Atrial fibrillation with rapid ventricular response. Off Lopressor as BP in 70s. On Eliquis 2.5 bid Better on Dig 0.125 PEG daily. Dig level 0.9 3. Respiratory failure on the Vent now 4. Septic shock. BP in 70s. off Lopressor. Off Levophed 5. Renal insufficiency.Cr still 2.1 6. Status post COVID pneumonia, was tested positive more than two weeks ago. Now is negative 7. Dysphagia, S/P PEG 10/23/[address] Full code[address] DW Dr. Gómez Subjective Subjective S/P PEG by Dr. Tobar 10/23/20 In ICU off Levophed Covid negative 10/25 On 30% Fio2 and PEEP 5. In atrial fib with rate around 100 Alert off restraints Objective Last 24 Hour Vital Signs Date Time Temp Pulse Resp B/P (MAP) Pulse Ox O2 Delivery O2 Flow Rate FiO2 11/02/20 12:00 98.5 86 0 136/54 (81) 100 11/02/20 12:00 Endotracheal Tube Endotracheal Tube 11/02/20 12:00 85 11/02/20 12:00 30 11/02/20 11:35 81 21 30 11/02/20 11:00 87 0 126/70 (88) 100 11/02/20 10:13 30 11/02/20 10:00 94 0 142/72 (95) 100 11/02/20 09:00 81 0 144/60 (88) 100 11/02/20 08:06 80 11/02/20 08:00 80 11/02/20 08:00 98.1 77 0 120/61 (80) 100 11/02/20 08:00 Endotracheal Tube Endotracheal Tube 11/02/20 08:00 30 11/02/20 07:47 82 22 30 11/02/20 07:00 80 20 118/58 (78) 100 11/02/20 06:00 78 20 119/63 (81) 100 11/02/20 05:00 82 18 130/60 (83) 99 11/02/20 04:00 81 3/8/21 04:00 Endotracheal Tube Endotracheal Tube 11/02/20 04:00 98.2 97 18 134/100 (111) 98 11/02/20 04:00 30 11/02/20 03:02 87 20 30 11/02/20 03:00 81 20 124/71 (88) 99 11/02/20 02:00 77 18 111/58 (75) 99 11/02/20 01:24 98.2 11/02/20 01:00 92 18 121/60 (80) 98 11/02/20 00:00 98.2 91 20 116/48 (70) 98 11/02/20 00:00 30 11/02/20 00:00 96 11/02/20 00:00 Endotracheal Tube Endotracheal Tube 11/01/20 23:00 87 20 115/53 (73) 98 11/01/20 22:30 30 11/01/20 22:25 82 20 30 11/01/20 22:00 79 20 102/47 (65) 100 11/01/20 21:00 91 20 104/40 (61) 98 11/01/20 20:00 Endotracheal Tube Endotracheal Tube 11/01/20 20:00 98.5 86 21 105/34 (57) 99 11/01/20 20:00 106 11/01/20 19:07 117 22 35 11/01/20 19:00 101 22 113/54 (73) 99 11/01/20 18:00 97 21 120/63 (82) 99 11/01/20 17:00 88 20 131/54 (79) 100 11/01/20 16:25 35 11/01/20 16:25 88 20 35 11/01/20 16:00 97.9 88 20 123/58 (79) 100 11/01/20 16:00 Endotracheal Tube Endotracheal Tube 11/01/20 16:00 40 11/01/20 16:00 88 11/01/20 15:30 90 20 120/63 (82) 100 11/01/20 15:12 95 20 40 11/01/20 15:00 92 20 99/51 (67) 100 11/01/20 14:00 92 19 132/37 (68) 100 11/01/20 13:45 87 15 114/58 (76) 99 Intake and Output 11/01/20 11/02/20 19:00 07:00 Intake Total 957.0 ml 670.0 ml Output Total 545 ml 765 ml Balance 412.0 ml -95.0 ml Free Water 100 ml IV Total 557.0 ml 200.0 ml Tube Feeding 400 ml 370 ml Output Urine Total 345 ml 690 ml Stool Total 200 ml 75 ml Laboratory Tests Test 11/02/20 04:33 11/02/20 09:12 11/02/20 11:37 White Blood Count 6.3 K/UL (4.8-10.8) Red Blood Count 3.16 M/UL (4.20-5.40) L Hemoglobin 9.2 G/DL (12.0-16.0) L Hematocrit 28.4 % (37.0-47.0) L Mean Corpuscular Volume 90 FL (80-99) Mean Corpuscular Hemoglobin 29.2 PG (27.0-31.0) Mean Corpuscular Hemoglobin Concent 32.6 G/DL (32.0-36.0) Red Cell Distribution Width 18.3 % (11.6-14.8) H Platelet Count 162 K/UL (150-450) Mean Platelet Volume 9.0 FL (6.5-10.1) Neutrophils (%) (Auto) % (45.0-75.0) Lymphocytes (%) (Auto) % (20.0-45.0) Monocytes (%) (Auto) % (1.0-10.0) Eosinophils (%) (Auto) % (0.0-3.0) Basophils (%) (Auto) % (0.0-2.0) Differential Total Cells Counted 100 Neutrophils % (Manual) 81 % (45-75) H Lymphocytes % (Manual) 12 % (20-45) L Monocytes % (Manual) 4 % (1-10) Eosinophils % (Manual) 0 % (0-3) Basophils % (Manual) 0 % (0-2) Band Neutrophils 3 % (0-8) Platelet Estimate Adequate Platelet Morphology Normal Hypochromasia 1+ Anisocytosis 1+ Sodium Level 143 MMOL/L (136-145) Potassium Level 3.4 MMOL/L (3.5-5.1) L Chloride Level 110 MMOL/L (98-107) H Carbon Dioxide Level 19 MMOL/L (21-32) L Anion Gap 14 mmol/L (5-15) Blood Urea Nitrogen 44 mg/dL (7-18) H Creatinine 2.3 MG/DL (0.55-1.30) H Estimat Glomerular Filtration Rate 20.3 mL/min (>60) Glucose Level 108 MG/DL (74-106) H Uric Acid 7.5 MG/DL (2.6-7.2) H Calcium Level 7.3 MG/DL (8.5-10.1) L Phosphorus Level 2.8 MG/DL (2.5-4.9) Magnesium Level 2.0 MG/DL (1.8-2.4) Total Bilirubin 0.5 MG/DL (0.2-1.0) Aspartate Amino Transf (AST/SGOT) 12 U/L (15-37) L Alanine Aminotransferase (ALT/SGPT) 14 U/L (12-78) Alkaline Phosphatase 61 U/L (46-116) C-Reactive Protein, Quantitative 17.1 mg/dL (0.00-0.90) H Pro-B-Type Natriuretic Peptide > 47227 pg/mL (0-125) H Total Protein 4.7 G/DL (6.4-8.2) L Albumin 1.8 G/DL (3.4-5.0) L Globulin 2.9 g/dL Albumin/Globulin Ratio 0.6 (1.0-2.7) L Arterial Blood pH 7.412 (7.350-7.450) 7.392 (7.350-7.450) Arterial Blood Partial Pressure CO2 27.7 mmHg (35.0-45.0) L 30.4 mmHg (35.0-45.0) L Arterial Blood Partial Pressure O2 104.3 mmHg (75.0-100.0) H 103.3 mmHg (75.0-100.0) H Arterial Blood HCO3 17.2 mmol/L (22.0-26.0) *L 18.1 mmol/L (22.0-26.0) L Arterial Blood Oxygen Saturation 97.2 % (95-100) 97.1 % (95-100) Arterial Blood Base Excess -6.3 (-2-2) L -6.0 (-2-2) L Gallo Test Positive Positive Objective HEAD AND NECK: No JVD. On BIPAP LUNGS: Decreased breath sounds. CARDIOVASCULAR: Irregular S1 and S2 with no gallop. ABDOMEN: Soft.S/P PEG EXTREMITIES: No pitting edema. Terry Reyes MD Nov 02, 2020 13:44
--- NOTE | 2020-11-02 13:46 | General Progress Note ---
Subjective ROS Limited/Unobtainable: No Allergies: Coded Allergies: No Known Allergies (Unverified , 10/17/20) Subjective intubated now Objective Last 24 Hour Vital Signs Date Time Temp Pulse Resp B/P (MAP) Pulse Ox O2 Delivery O2 Flow Rate FiO2 11/02/20 12:00 98.5 86 0 136/54 (81) 100 11/02/20 12:00 Endotracheal Tube Endotracheal Tube 11/02/20 12:00 85 11/02/20 12:00 30 11/02/20 11:35 81 21 30 11/02/20 11:00 87 0 126/70 (88) 100 11/02/20 10:13 30 11/02/20 10:00 94 0 142/72 (95) 100 11/02/20 09:00 81 0 144/60 (88) 100 11/02/20 08:06 80 11/02/20 08:00 80 11/02/20 08:00 98.1 77 0 120/61 (80) 100 11/02/20 08:00 Endotracheal Tube Endotracheal Tube 11/02/20 08:00 30 11/02/20 07:47 82 22 30 11/02/20 07:00 80 20 118/58 (78) 100 11/02/20 06:00 78 20 119/63 (81) 100 11/02/20 05:00 82 18 130/60 (83) 99 11/02/20 04:00 81 11/02/20 04:00 Endotracheal Tube Endotracheal Tube 11/02/20 04:00 98.2 97 18 134/100 (111) 98 11/02/20 04:00 30 11/02/20 03:02 87 20 30 11/02/20 03:00 81 20 124/71 (88) 99 11/02/20 02:00 77 18 111/58 (75) 99 11/02/20 01:24 98.2 11/02/20 01:00 92 18 121/60 (80) 98 11/02/20 00:00 98.2 91 20 116/48 (70) 98 11/02/20 00:00 30 11/02/20 00:00 96 11/02/20 00:00 Endotracheal Tube Endotracheal Tube 11/01/20 23:00 87 20 115/53 (73) 98 11/01/20 22:30 30 11/01/20 22:25 82 20 30 11/01/20 22:00 79 20 102/47 (65) 100 11/01/20 21:00 91 20 104/40 (61) 98 11/01/20 20:00 Endotracheal Tube Endotracheal Tube 11/01/20 20:00 98.5 86 21 105/34 (57) 99 11/01/20 20:00 106 11/01/20 19:07 117 22 35 11/01/20 19:00 101 22 113/54 (73) 99 11/01/20 18:00 97 21 120/63 (82) 99 11/01/20 17:00 88 20 131/54 (79) 100 11/01/20 16:25 35 11/01/20 16:25 88 20 35 11/01/20 16:00 97.9 88 20 123/58 (79) 100 11/01/20 16:00 Endotracheal Tube Endotracheal Tube 11/01/20 16:00 40 11/01/20 16:00 88 11/01/20 15:30 90 20 120/63 (82) 100 11/01/20 15:12 95 20 40 11/01/20 15:00 92 20 99/51 (67) 100 11/01/20 14:00 92 19 132/37 (68) 100 Intake and Output 11/01/20 11/02/20 19:00 07:00 Intake Total 957.0 ml 670.0 ml Output Total 545 ml 765 ml Balance 412.0 ml -95.0 ml Free Water 100 ml IV Total 557.0 ml 200.0 ml Tube Feeding 400 ml 370 ml Output Urine Total 345 ml 690 ml Stool Total 200 ml 75 ml Laboratory Tests 11/02/20 04:33: White Blood Count 6.3, Red Blood Count 3.16L, Hemoglobin 9.2L, Hematocrit 28.4L, Mean Corpuscular Volume 90, Mean Corpuscular Hemoglobin 29.2, Mean Corpuscular Hemoglobin Concent 32.6, Red Cell Distribution Width 18.3H, Platelet Count 162, Mean Platelet Volume 9.0, Neutrophils (%) (Auto) , Lymphocytes (%) (Auto) , Monocytes (%) (Auto) , Eosinophils (%) (Auto) , Basophils (%) (Auto) , Differential Total Cells Counted 100, Neutrophils % (Manual) 81H, Lymphocytes % (Manual) 12L, Monocytes % (Manual) 4, Eosinophils % (Manual) 0, Basophils % (Manual) 0, Band Neutrophils 3, Platelet Estimate Adequate, Platelet Morphology Normal, Hypochromasia 1+, Anisocytosis 1+, Sodium Level 143, Potassium Level 3.4L, Chloride Level 110H, Carbon Dioxide Level 19L, Anion Gap 14, Blood Urea Nitrogen 44H, Creatinine 2.3H, Estimat Glomerular Filtration Rate 20.3, Glucose Level 108H, Uric Acid 7.5H, Calcium Level 7.3L, Phosphorus Level 2.8, Magnesium Level 2.0, Total Bilirubin 0.5, Aspartate Amino Transf (AST/SGOT) 12L, Alanine Aminotransferase (ALT/SGPT) 14, Alkaline Phosphatase 61, C-Reactive Protein, Quantitative 17.1H, Pro-B-Type Natriuretic Peptide > 42357M, Total Protein 4.7L, Albumin 1.8L, Globulin 2.9, Albumin/Globulin Ratio 0.6L 11/02/20 09:12: Arterial Blood pH 7.412, Arterial Blood Partial Pressure CO2 27.7L, Arterial Blood Partial Pressure O2 104.3H, Arterial Blood HCO3 17.2*L, Arterial Blood Oxygen Saturation 97.2, Arterial Blood Base Excess -6.3L, Gallo Test Positive 11/02/20 11:37: Arterial Blood pH 7.392, Arterial Blood Partial Pressure CO2 30.4L, Arterial Blood Partial Pressure O2 103.3H, Arterial Blood HCO3 18.1L, Arterial Blood O xygen Saturation 97.1, Arterial Blood Base Excess -6.0L, Gallo Test Positive Height (Feet): 5 Height (Inches): 0.00 Weight (Pounds): 145 General Appearance: no apparent distress EENT: normal ENT inspection Neck: supple Cardiovascular: normal rate Respiratory/Chest: decreased breath sounds Abdomen: hypoactive bowel sounds Extremities: non-tender Assessment/Plan Problem List: (1) Hypothyroidism ICD Codes: E03.9 - Hypothyroidism, unspecified SNOMED: 02534064 (2) Pneumonia due to COVID-19 virus ICD Codes: U07.1 - COVID-19; J12.82 - Pneumonia due to coronavirus disease 2019 SNOMED: 030409202395426780 (3) Malnutrition ICD Codes: E46 - Unspecified protein-calorie malnutrition SNOMED: 56852790 (4) Decubitus skin ulcer ICD Codes: L89.90 - Pressure ulcer of unspecified site, unspecified stage SNOMED: 806732154 (5) Elevated troponin ICD Codes: R77.8 - Other specified abnormalities of plasma proteins SNOMED: 727926195, 432112709, 823802709 (6) Atrial fibrillation ICD Codes: I48.91 - Unspecified atrial fibrillation SNOMED: 80116763 (7) Anemia ICD Codes: D64.9 - Anemia, unspecified SNOMED: 528275990 Status: progressing Assessment/Plan: GTF fu cardiology fu pulm labs for AM intubated now Skyler Tobar MD Nov 02, 2020 13:46
--- NOTE | 2020-11-02 15:22 | Diagnostic Imaging Report ---
Indication: Cough Technique: XRAY Chest 1v Comparison: 10/31/2020 Findings: Worsening aeration with increasing hazy opacities in the left lung. Endotracheal tube and left subclavian central line remain in place. Heart size is stable. No appreciable pneumothorax. Bilateral interstitial infiltrates versus edema are again seen, also increased. Osseous structures stable. IMPRESSION: Worsening aeration with increasing hazy opacification of the left lung may be related to increased layering pleural effusion. Increased interstitial infiltrates versus edema.
[2020-11-02] MEDS ORDERED: Tubing IV Secondary IV ONE (17:05)
[2020-11-02] MEDS ORDERED: NS 275ml ONE (17:05)
--- NOTE | 2020-11-02 19:22 | NUR ---
NURSE HAND-OFF REPORT: Latest Vital Signs: Temperature 98.6 , Pulse 65 , B/P 125 /55 , Respiratory Rate 15 , O2 SAT 99 , Simple Mask, O2 Flow Rate 2.0 . Vital Sign Comment: unable to wean today EKG Rhythm: Atrial Fibrillation Rhythm change?: N MD Notified?: - MD Response: Latest Elizabeth Fall Score: 70 Fall Risk: High Risk Safety Measures: Call light Within Reach, Bed Alarm Zone 1, Side Rails Side Rails x3, Bed position Low and Locked. Fall Precautions: Yellow Socks Patient Fall Education Report given to SERGIO Holbrook.
--- NOTE | 2020-11-02 20:01 | NUR ---
NURSE NOTES: received report from kishor rn pt orally intubated -vent o2 sat 100% LETHARGIC OPEN EYES TOUCH BUT DOES FOLLOWS COMMAND TOLERATING TUBE FEEDING NO RESIDUAL REPOSITION AND SUCTION IV INFUSING SITE GOOD DRESSING DRY AND INTACT
[2020-11-02] MEDS: Dyna-Hex 2% Top Sol 2oz TOPIC SCH (20:20)
--- NOTE | 2020-11-02 21:20 | General Progress Note ---
Subjective ROS Limited/Unobtainable: Yes Allergies: Coded Allergies: No Known Allergies (Unverified , 10/17/20) Objective Last 24 Hour Vital Signs Date Time Temp Pulse Resp B/P (MAP) Pulse Ox O2 Delivery O2 Flow Rate FiO2 11/02/20 19:06 65 15 30 11/02/20 19:00 82 0 125/55 (78) 99 11/02/20 18:00 86 0 130/77 (94) 100 11/02/20 17:00 97 0 129/66 (87) 99 11/02/20 16:00 Endotracheal Tube Endotracheal Tube 11/02/20 16:00 106 11/02/20 16:00 98.6 96 7 129/77 (94) 99 11/02/20 16:00 30 11/02/20 15:22 100 16 30 11/02/20 15:00 86 2 132/63 (86) 100 11/02/20 14:00 89 5 131/53 (79) 100 11/02/20 13:00 84 0 130/35 (66) 99 11/02/20 12:00 98.5 86 0 136/54 (81) 100 11/02/20 12:00 Endotracheal Tube Endotracheal Tube 11/02/20 12:00 85 11/02/20 12:00 30 11/02/20 11:35 81 21 30 11/02/20 11:00 87 0 126/70 (88) 100 11/02/20 10:13 30 11/02/20 10:00 94 0 142/72 (95) 100 11/02/20 09:00 81 0 144/60 (88) 100 11/02/20 08:06 80 11/02/20 08:00 80 11/02/20 08:00 98.1 77 0 120/61 (80) 100 11/02/20 08:00 Endotracheal Tube Endotracheal Tube 11/02/20 08:00 30 11/02/20 07:47 82 22 30 11/02/20 07:00 80 20 118/58 (78) 100 11/02/20 06:00 78 20 119/63 (81) 100 11/02/20 05:00 82 18 130/60 (83) 99 11/02/20 04:00 81 11/02/20 04:00 Endotracheal Tube Endotracheal Tube 11/02/20 04:00 98.2 97 18 134/100 (111) 98 11/02/20 04:00 30 11/02/20 03:02 87 20 30 11/02/20 03:00 81 20 124/71 (88) 99 11/02/20 02:00 77 18 111/58 (75) 99 11/02/20 01:24 98.2 11/02/20 01:00 92 18 121/60 (80) 98 11/02/20 00:00 98.2 91 20 116/48 (70) 98 11/02/20 00:00 30 11/02/20 00:00 96 11/02/20 00:00 Endotracheal Tube Endotracheal Tube 11/01/20 23:00 87 20 115/53 (73) 98 11/01/20 22:30 30 11/01/20 22:25 82 20 30 11/01/20 22:00 79 20 102/47 (65) 100 Intake and Output 11/01/20 11/02/20 19:00 07:00 Intake Total 957.0 ml 670.0 ml Output Total 545 ml 765 ml Balance 412.0 ml -95.0 ml Free Water 100 ml IV Total 557.0 ml 200.0 ml Tube Feeding 400 ml 370 ml Output Urine Total 345 ml 690 ml Stool Total 200 ml 75 ml Laboratory Tests 11/02/20 04:33: White Blood Count 6.3, Red Blood Count 3.16L, Hemoglobin 9.2L, Hematocrit 28.4L, Mean Corpuscular Volume 90, Mean Corpuscular Hemoglobin 29.2, Mean Corpuscular Hemoglobin Concent 32.6, Red Cell Distribution Width 18.3H, Platelet Count 162, Mean Platelet Volume 9.0, Neutrophils (%) (Auto) , Lymphocytes (%) (Auto) , Monocytes (%) (Auto) , Eosinophils (%) (Auto) , Basophils (%) (Auto) , Differential Total Cells Counted 100, Neutrophils % (Manual) 81H, Lymphocytes % (Manual) 12L, Monocytes % (Manual) 4, Eosinophils % (Manual) 0, Basophils % (Manual) 0, Band Neutrophils 3, Platelet Estimate Adequate, Platelet Morphology Normal, Hypochromasia 1+, Anisocytosis 1+, Sodium Level 143, Potassium Level 3.4L, Chloride Level 110H, Carbon Dioxide Level 19L, Anion Gap 14, Blood Urea Nitrogen 44H, Creatinine 2.3H, Estimat Glomerular Filtration Rate 20.3, Glucose Level 108H, Uric Acid 7.5H, Calcium Level 7.3L, Phosphorus Level 2.8, Magnesium Level 2.0, Total Bilirubin 0.5, Aspartate Amino Transf (AST/SGOT) 12L, Alanine Aminotransferase (ALT/SGPT) 14, Alkaline Phosphatase 61, C-Reactive Protein, Quantitative 17.1H, Pro-B-Type Natriuretic Peptide > 09809O, Total Protein 4.7L, Albumin 1.8L, Globulin 2.9, Albumin/Globulin Ratio 0.6L 11/02/20 09:12: Arterial Blood pH 7.412, Arterial Blood Partial Pressure CO2 27.7L, Arterial Blood Partial Pressure O2 104.3H, Arterial Blood HCO3 17.2*L, Arterial Blood Oxygen Saturation 97.2, Arterial Blood Base Excess -6.3L, Gallo Test Positive 11/02/20 11:37: Arterial Blood pH 7.392, Arterial Blood Partial Pressure CO2 30.4L, Arterial Blood Partial Pressure O2 103.3H, Arterial Blood HCO3 18.1L, Arterial Blood Oxygen Saturation 97.1, Arterial Blood Base Excess -6.0L, Gallo Test Positive Height (Feet): 5 Height (Inches): 0.00 Weight (Pounds): 145 Assessment/Plan Problem List: (1) Anemia ICD Codes: D64.9 - Anemia, unspecified SNOMED: 734600392 (2) Acute kidney injury ICD Codes: N17.9 - Acute kidney failure, unspecified SNOMED: 90746766, 0152410 (3) Atrial fibrillation ICD Codes: I48.91 - Unspecified atrial fibrillation SNOMED: 66087705 (4) Elevated troponin ICD Codes: R77.8 - Other specified abnormalities of plasma proteins SNOMED: 600140668, 193374005, 995771805 (5) Malnutrition ICD Codes: E46 - Unspecified protein-calorie malnutrition SNOMED: 67017732 (6) Pneumonia due to COVID-19 virus ICD Codes: U07.1 - COVID-19; J12.82 - Pneumonia due to coronavirus disease 2019 SNOMED: 686381439121957948 (7) Hypothyroidism ICD Codes: E03.9 - Hypothyroidism, unspecified SNOMED: 11132704 Status: progressing Assessment/Plan: intubated lethargic not improving a fib reviewed chart and labs dr conner started iv lasix for pulm edema transfusion arrythmia a fib covid + deteriotating Neri Dumont MD Nov 02, 2020 21:20
[2020-11-03] VITALS (24 sets, daily range): BP systolic 100–153; BP diastolic 45–91
--- NOTE | 2020-11-03 | NUR ---
NURSE NOTES: bs 110 no coverage
--- NOTE | 2020-11-03 04:00 | NUR ---
NURSE NOTES: complete bed bath oral care and back care done
[2020-11-03 05:08] LABS: HEMATOCRIT 28.1 % (37.0-47.0); HEMOGLOBIN 9.2 G/DL (12.0-16.0); MEAN CORPUSCULAR VOLUME 90 FL (80-99); PLATELET COUNT 153 K/UL (150-450); RED BLOOD COUNT 3.13 M/UL (4.20-5.40); RED CELL DISTRIBUTION WIDTH 18.7 % (11.6-14.8); WHITE BLOOD COUNT 5.6 K/UL (4.8-10.8)
[2020-11-03 05:34] LABS: ALBUMIN 1.8 G/DL (3.4-5.0); ALBUMIN/GLOBULIN RATIO 0.6 (1.0-2.7); BILIRUBIN,TOTAL 0.4 MG/DL (0.2-1.0); CALCIUM 7.9 MG/DL (8.5-10.1); CREATININE 2.4 MG/DL (0.55-1.30); PHOSPHORUS 2.8 MG/DL (2.5-4.9); POTASSIUM 3.2 MMOL/L (3.5-5.1)
--- NOTE | 2020-11-03 06:00 | NUR ---
NURSE NOTES: sputum for c/s send lab
--- NOTE | 2020-11-03 06:29 | Hematology/Onc Progress Note ---
Assessment/Plan Assessment/Plan Assessment and recs # Anemia r/o gi bleed --> anemia panel has been ordered-->reviewed --> hgb 8.1->9.3->9.7-->9.5-->10.5-->10.2-->9.1->8.6-->7.8-->8.1-->9.2 --> no hemolysis is noted --> transfuse on prn basis --> 1 unit prbc 10/30 # Thrombocytopenia likely due to reactive process --> plt 138-->149-->176-->162 --> imaging prn --> smear has been reviewed --> viral w/u neg # Hypercoag disorder with Atrial fibrillation --> consider anticoag as per cards --> if bleeding, consider hold anticoag # Elevated trop --> per cards # Hyperkalemia --> per renal # Acute kidney injury --> per renal # Resp failure on bipap # Recently COVID-19 positive # Dvt ppx scds --> lovenox sq Appreciate consultation and rosio eugene Subjective Allergies: Coded Allergies: No Known Allergies (Unverified , 10/17/20) All Systems: reviewed and negative except above Subjective 10/19 cbc is pending, did get blood transfusion last night, pending results 10/20 meds noted, no bleeding, labs reviewed, rosio rn, no new changes 10/21 on 4l nc, has been refusing labs, meds noted, no bleeding 10/22 nc, refusing meds labs reviewed, rosio rn 10/23 is potentially for egd this am, no bleeding, cbc is noted 10/25 meds noted, no bleeidng, is on nc, no night sweats, bp bolus pending 10/26 bed bath done, meds noted, no bleeding, cbc reviewed from am 10/27 lethargic, on bipap, levophed, meds reviewed 10/28 icu, lethargic, remains on bipap, pressors 10/29 icu, lethargic, meds noted, on bipap, labs noted 10/30 icu, bipap, to get 1 unit prbc, meds reviewed, labs noted 10/31 icu, on vent, no bipap 11/01: remains in icu, no bleeding reported 11/02 icu, lethargic, on vent, with gt feeds on hold, labs noted 11/03 icu, intubated on vent, lethargic, labs reviewed, meds noted Objective Objective Current Medications Medications (Trade) Dose Ordered Sig/Yolanda Route PRN Reason Start Time Stop Time Status Last Admin Dose Admin Acetaminophen (Tylenol) 500 mg Q6HR PRN ORAL Mild Pain 1-3 10/17/20 17:45 11/16/20 17:44 11/02/20 14:28 Acetaminophen (Tylenol) 500 mg Q6HR PRN ORAL fever >100 10/17/20 18:00 11/16/20 17:59 Acetaminophen (Tylenol) 650 mg Q4H PRN ORAL Pain Scale (6-10) 10/17/20 19:15 11/16/20 19:14 Apixaban (Eliquis) 2.5 mg BID ORAL 10/24/20 18:00 01/22/21 17:59 11/02/20 18:21 Chlorhexidine Gluconate (Eve-Hex 2%) 1 applic DAILY@2000 TOPIC 10/22/20 20:00 01/20/21 19:59 11/02/20 20:20 Digoxin (Lanoxin) 0.125 mg DAILY GT 10/30/20 09:00 01/28/21 08:59 11/02/20 08:06 Furosemide (Lasix) 40 mg EVERY 8 HOURS IV 10/31/20 14:00 11/30/20 13:59 11/03/20 05:38 Levothyroxine Sodium (Synthroid) 50 mcg DAILY@0630 ORAL 10/19/20 06:30 11/18/20 06:29 11/03/20 05:38 Norepinephrine Bitartrate 250 ml @ 0 mls/hr Q24H PRN IV For hypotension 11/01/20 11:17 11/04/20 11:16 11/01/20 11:28 Ondansetron HCl (Zofran) 4 mg Q6H PRN IVP Nausea & Vomiting 10/17/20 21:15 11/16/20 21:14 Pantoprazole (Protonix) 40 mg Q12HR IVP 11/02/20 21:00 11/25/20 20:59 11/02/20 20:51 Potassium Chloride (K-Dur) 20 meq TWICE A DAY GT 11/02/20 18:00 01/31/21 17:59 11/02/20 18:21 Last 24 Hour Vital Signs Date Time Temp Pulse Resp B/P (MAP) Pulse Ox O2 Delivery O2 Flow Rate FiO2 11/03/20 06:00 76 0 134/62 (86) 100 11/03/20 05:00 76 0 134/62 (86) 100 11/03/20 04:00 Endotracheal Tube Endotracheal Tube 11/03/20 04:00 85 11/03/20 04:00 30 11/03/20 04:00 98.3 79 9 152/55 (87) 99 11/03/20 03:20 81 17 30 11/03/20 03:00 78 0 147/56 (86) 100 11/03/20 02:00 77 0 129/45 (73) 100 11/03/20 01:00 79 0 131/66 (87) 100 11/03/20 00:00 Endotracheal Tube Endotracheal Tube 11/03/20 00:00 30 11/03/20 00:00 98.5 82 0 130/75 (93) 100 11/02/20 23:15 94 20 30 11/02/20 23:00 81 0 140/60 (86) 100 11/02/20 22:00 83 0 133/71 (91) 100 11/02/20 21:00 72 11/02/20 21:00 79 0 117/47 (70) 100 11/02/20 20:00 98.3 81 0 117/57 (77) 99 11/02/20 20:00 30 11/02/20 20:00 Endotracheal Tube Endotracheal Tube 11/02/20 19:06 65 15 30 11/02/20 19:00 82 0 125/55 (78) 99 11/02/20 18:00 86 0 130/77 (94) 100 11/02/20 17:00 97 0 129/66 (87) 99 11/02/20 16:00 Endotracheal Tube Endotracheal Tube 11/02/20 16:00 106 11/02/20 16:00 98.6 96 7 129/77 (94) 99 11/02/20 16:00 30 11/02/20 15:22 100 16 30 11/02/20 15:00 86 2 132/63 (86) 100 11/02/20 14:00 89 5 131/53 (79) 100 11/02/20 13:00 84 0 130/35 (66) 99 11/02/20 12:00 98.5 86 0 136/54 (81) 100 11/02/20 12:00 Endotracheal Tube Endotracheal Tube 11/02/20 12:00 85 11/02/20 12:00 30 11/02/20 11:35 81 21 30 11/02/20 11:00 87 0 126/70 (88) 100 11/02/20 10:13 30 11/02/20 10:00 94 0 142/72 (95) 100 11/02/20 09:00 81 0 144/60 (88) 100 11/02/20 08:06 80 11/02/20 08:00 80 11/02/20 08:00 98.1 77 0 120/61 (80) 100 11/02/20 08:00 Endotracheal Tube Endotracheal Tube 11/02/20 08:00 30 11/02/20 07:47 82 22 30 11/02/20 07:00 80 20 118/58 (78) 100 11/02/20 06:00 78 20 119/63 (81) 100 11/02/20 05:00 82 18 130/60 (83) 99 11/02/20 04:00 81 11/02/20 04:00 Endotracheal Tube Endotracheal Tube 11/02/20 04:00 98.2 97 18 134/100 (111) 98 11/02/20 04:00 30 11/02/20 03:02 87 20 30 11/02/20 03:00 81 20 124/71 (88) 99 11/02/20 02:00 77 18 111/58 (75) 99 11/02/20 01:24 98.2 11/02/20 01:00 92 18 121/60 (80) 98 11/02/20 00:00 98.2 91 20 116/48 (70) 98 11/02/20 00:00 30 11/02/20 00:00 96 11/02/20 00:00 Endotracheal Tube Endotracheal Tube 11/01/20 23:00 87 20 115/53 (73) 98 11/01/20 22:30 30 11/01/20 22:25 82 20 30 11/01/20 22:00 79 20 102/47 (65) 100 11/01/20 21:00 91 20 104/40 (61) 98 11/01/20 20:00 Endotracheal Tube Endotracheal Tube 11/01/20 20:00 98.5 86 21 105/34 (57) 99 11/01/20 20:00 106 11/01/20 19:07 117 22 35 11/01/20 19:00 101 22 113/54 (73) 99 11/01/20 18:00 97 21 120/63 (82) 99 11/01/20 17:00 88 20 131/54 (79) 100 11/01/20 16:25 35 11/01/20 16:25 88 20 35 11/01/20 16:00 97.9 88 20 123/58 (79) 100 11/01/20 16:00 Endotracheal Tube Endotracheal Tube 11/01/20 16:00 40 11/01/20 16:00 88 11/01/20 15:30 90 20 120/63 (82) 100 11/01/20 15:12 95 20 40 11/01/20 15:00 92 20 99/51 (67) 100 11/01/20 14:00 92 19 132/37 (68) 100 11/01/20 13:45 87 15 114/58 (76) 99 11/01/20 13:30 100 11 120/58 (78) 100 11/01/20 13:15 86 20 40 11/01/20 13:15 89 20 94/37 (56) 100 11/01/20 13:00 89 20 106/57 (73) 100 11/01/20 12:45 91 18 115/44 (67) 100 11/01/20 12:30 94 19 131/59 (83) 100 11/01/20 12:15 94 20 127/56 (79) 99 11/01/20 12:00 Endotracheal Tube Endotracheal Tube 11/01/20 12:00 97 15 138/65 (89) 97 11/01/20 12:00 100 11/01/20 11:45 97.3 88 20 80/37 (51) 100 11/01/20 11:40 87 20 94/49 (64) 100 11/01/20 11:28 82/40 11/01/20 11:00 85 20 82/40 (54) 100 11/01/20 10:46 40 11/01/20 10:44 87 20 40 11/01/20 10:00 83 20 98/39 (58) 100 11/01/20 09:15 100 11/01/20 09:00 90 20 97/38 (57) 100 11/01/20 08:38 50 11/01/20 08:38 80 20 50 11/01/20 08:00 98.0 100 23 105/52 (69) 100 11/01/20 08:00 Endotracheal Tube Endotracheal Tube 11/01/20 08:00 60 11/01/20 07:57 87 20 60 11/01/20 07:52 99 11/01/20 07:00 89 20 106/39 (61) 100 Intake and Output 11/02/20 11/03/20 19:00 07:00 Intake Total 620.0 ml 460 ml Output Total 1190 ml 2250 ml Balance -570.0 ml -1790 ml Free Water 60 ml 100 ml IV Total 115.0 ml Tube Feeding 445 ml 360 ml Output Urine Total 1160 ml 2250 ml Stool Total 30 ml # Bowel Movements 100 Labs Test 10/31/20 08:03 10/31/20 09:25 10/31/20 15:57 10/31/20 19:53 Arterial Blood pH 7.119 (7.350-7.450) 7.109 (7.350-7.450) 7.333 (7.350-7.450) Arterial Blood Partial Pressure CO2 52.1 mmHg (35.0-45.0) 56.2 mmHg (35.0-45.0) 28.7 mmHg (35.0-45.0) Arterial Blood Partial Pressure O2 86.7 mmHg (75.0-100.0) 80.3 mmHg (75.0-100.0) 421.9 mmHg (75.0-100.0) Arterial Blood HCO3 16.5 mmol/L (22.0-26.0) 17.4 mmol/L (22.0-26.0) 14.9 mmol/L (22.0-26.0) Arterial Blood Oxygen Saturation 94.5 % (95-100) 94.8 % (95-100) 98.4 % (95-100) Arterial Blood Base Excess -12.2 (-2-2) -11.9 (-2-2) -9.8 (-2-2) Gallo Test Positive Positive Positive White Blood Count 4.5 K/UL (4.8-10.8) Red Blood Count 2.69 M/UL (4.20-5.40) Hemoglobin 7.8 G/DL (12.0-16.0) Hematocrit 25.5 % (37.0-47.0) Mean Corpuscular Volume 95 FL (80-99) Mean Corpuscular Hemoglobin 29.1 PG (27.0-31.0) Mean Corpuscular Hemoglobin Concent 30.7 G/DL (32.0-36.0) Red Cell Distribution Width 19.1 % (11.6-14.8) Platelet Count 127 K/UL (150-450) Mean Platelet Volume 8.4 FL (6.5-10.1) Neutrophils (%) (Auto) % (45.0-75.0) Lymphocytes (%) (Auto) % (20.0-45.0) Monocytes (%) (Auto) % (1.0-10.0) Eosinophils (%) (Auto) % (0.0-3.0) Basophils (%) (Auto) % (0.0-2.0) Differential Total Cells Counted 100 Neutrophils % (Manual) 78 % (45-75) Lymphocytes % (Manual) 11 % (20-45) Monocytes % (Manual) 4 % (1-10) Eosinophils % (Manual) 2 % (0-3) Basophils % (Manual) 0 % (0-2) Band Neutrophils 5 % (0-8) Platelet Estimate Decreased Platelet Morphology Normal Hypochromasia 1+ Anisocytosis 1+ Sodium Level 141 MMOL/L (136-145) Potassium Level 2.7 MMOL/L (3.5-5.1) Chloride Level 109 MMOL/L (98-107) Carbon Dioxide Level 19 MMOL/L (21-32) Anion Gap 12 mmol/L (5-15) Blood Urea Nitrogen 38 mg/dL (7-18) Creatinine 2.0 MG/DL (0.55-1.30) Estimat Glomerular Filtration Rate 23.8 mL/min (>60) Glucose Level 141 MG/DL (74-106) Calcium Level 7.5 MG/DL (8.5-10.1) Total Bilirubin 0.3 MG/DL (0.2-1.0) Aspartate Amino Transf (AST/SGOT) 9 U/L (15-37) Alanine Aminotransferase (ALT/SGPT) 8 U/L (12-78) Alkaline Phosphatase 53 U/L (46-116) Total Protein 4.8 G/DL (6.4-8.2) Albumin 2.3 G/DL (3.4-5.0) Globulin 2.5 g/dL Albumin/Globulin Ratio 0.9 (1.0-2.7) Test 11/01/20 07:00 11/01/20 08:13 11/02/20 04:33 11/02/20 09:12 White Blood Count 4.3 K/UL (4.8-10.8) 6.3 K/UL (4.8-10.8) Red Blood Count 3.01 M/UL (4.20-5.40) 3.16 M/UL (4.20-5.40) Hemoglobin 8.9 G/DL (12.0-16.0) 9.2 G/DL (12.0-16.0) Hematocrit 27.0 % (37.0-47.0) 28.4 % (37.0-47.0) Mean Corpuscular Volume 90 FL (80-99) 90 FL (80-99) Mean Corpuscular Hemoglobin 29.5 PG (27.0-31.0) 29.2 PG (27.0-31.0) Mean Corpuscular Hemoglobin Concent 33.0 G/DL (32.0-36.0) 32.6 G/DL (32.0-36.0) Red Cell Distribution Width 18.3 % (11.6-14.8) 18.3 % (11.6-14.8) Platelet Count 118 K/UL (150-450) 162 K/UL (150-450) Mean Platelet Volume 8.3 FL (6.5-10.1) 9.0 FL (6.5-10.1) Neutrophils (%) (Auto) % (45.0-75.0) % (45.0-75.0) Lymphocytes (%) (Auto) % (20.0-45.0) % (20.0-45.0) Monocytes (%) (Auto) % (1.0-10.0) % (1.0-10.0) Eosinophils (%) (Auto) % (0.0-3.0) % (0.0-3.0) Basophils (%) (Auto) % (0.0-2.0) % (0.0-2.0) Differential Total Cells Counted 100 100 Neutrophils % (Manual) 77 % (45-75) 81 % (45-75) Lymphocytes % (Manual) 10 % (20-45) 12 % (20-45) Monocytes % (Manual) 9 % (1-10) 4 % (1-10) Eosinophils % (Manual) 0 % (0-3) 0 % (0-3) Basophils % (Manual) 0 % (0-2) 0 % (0-2) Band Neutrophils 4 % (0-8) 3 % (0-8) Platelet Estimate Decreased Adequate Platelet Morphology Normal Normal Hypochromasia 1+ 1+ Anisocytosis 1+ 1+ Sodium Level 143 MMOL/L (136-145) 143 MMOL/L (136-145) Potassium Level 3.2 MMOL/L (3.5-5.1) 3.4 MMOL/L (3.5-5.1) Chloride Level 111 MMOL/L (98-107) 110 MMOL/L (98-107) Carbon Dioxide Level 20 MMOL/L (21-32) 19 MMOL/L (21-32) Anion Gap 12 mmol/L (5-15) 14 mmol/L (5-15) Blood Urea Nitrogen 40 mg/dL (7-18) 44 mg/dL (7-18) Creatinine 2.1 MG/DL (0.55-1.30) 2.3 MG/DL (0.55-1.30) Estimat Glomerular Filtration Rate 22.5 mL/min (>60) 20.3 mL/min (>60) Glucose Level 81 MG/DL (74-106) 108 MG/DL (74-106) Calcium Level 7.6 MG/DL (8.5-10.1) 7.3 MG/DL (8.5-10.1) Phosphorus Level 2.5 MG/DL (2.5-4.9) 2.8 MG/DL (2.5-4.9) Magnesium Level 1.5 MG/DL (1.8-2.4) 2.0 MG/DL (1.8-2.4) Total Bilirubin 0.7 MG/DL (0.2-1.0) 0.5 MG/DL (0.2-1.0) Aspartate Amino Transf (AST/SGOT) 11 U/L (15-37) 12 U/L (15-37) Alanine Aminotransferase (ALT/SGPT) 8 U/L (12-78) 14 U/L (12-78) Alkaline Phosphatase 56 U/L (46-116) 61 U/L (46-116) Total Protein 4.2 G/DL (6.4-8.2) 4.7 G/DL (6.4-8.2) Albumin 1.8 G/DL (3.4-5.0) 1.8 G/DL (3.4-5.0) Globulin 2.4 g/dL 2.9 g/dL Albumin/Globulin Ratio 0.8 (1.0-2.7) 0.6 (1.0-2.7) Digoxin Level 0.9 NG/ML (0.9-2.0) Arterial Blood pH 7.403 (7.350-7.450) 7.412 (7.350-7.450) Arterial Blood Partial Pressure CO2 29.0 mmHg (35.0-45.0) 27.7 mmHg (35.0-45.0) Arterial Blood Partial Pressure O2 193.8 mmHg (75.0-100.0) 104.3 mmHg (75.0-100.0) Arterial Blood HCO3 17.7 mmol/L (22.0-26.0) 17.2 mmol/L (22.0-26.0) Arterial Blood Oxygen Saturation 98.2 % (95-100) 97.2 % (95-100) Arterial Blood Base Excess -6.1 (-2-2) -6.3 (-2-2) Gallo Test Positive Positive Uric Acid 7.5 MG/DL (2.6-7.2) C-Reactive Protein, Quantitative 17.1 mg/dL (0.00-0.90) Pro-B-Type Natriuretic Peptide > 23978 pg/mL (0-125) Test 11/02/20 11:37 11/03/20 04:10 Arterial Blood pH 7.392 (7.350-7.450) Arterial Blood Partial Pressure CO2 30.4 mmHg (35.0-45.0) Arterial Blood Partial Pressure O2 103.3 mmHg (75.0-100.0) Arterial Blood HCO3 18.1 mmol/L (22.0-26.0) Arterial Blood Oxygen Saturation 97.1 % (95-100) Arterial Blood Base Excess -6.0 (-2-2) Gallo Test Positive White Blood Count 5.6 K/UL (4.8-10.8) Red Blood Count 3.13 M/UL (4.20-5.40) Hemoglobin 9.2 G/DL (12.0-16.0) Hematocrit 28.1 % (37.0-47.0) Mean Corpuscular Volume 90 FL (80-99) Mean Corpuscular Hemoglobin 29.4 PG (27.0-31.0) Mean Corpuscular Hemoglobin Concent 32.8 G/DL (32.0-36.0) Red Cell Distribution Width 18.7 % (11.6-14.8) Platelet Count 153 K/UL (150-450) Mean Platelet Volume 8.5 FL (6.5-10.1) Neutrophils (%) (Auto) % (45.0-75.0) Lymphocytes (%) (Auto) % (20.0-45.0) Monocytes (%) (Auto) % (1.0-10.0) Eosinophils (%) (Auto) % (0.0-3.0) Basophils (%) (Auto) % (0.0-2.0) Sodium Level 142 MMOL/L (136-145) Potassium Level 3.2 MMOL/L (3.5-5.1) Chloride Level 108 MMOL/L (98-107) Carbon Dioxide Level 21 MMOL/L (21-32) Anion Gap 13 mmol/L (5-15) Blood Urea Nitrogen 51 mg/dL (7-18) Creatinine 2.4 MG/DL (0.55-1.30) Estimat Glomerular Filtration Rate 19.3 mL/min (>60) Glucose Level 124 MG/DL (74-106) Uric Acid 7.5 MG/DL (2.6-7.2) Calcium Level 7.9 MG/DL (8.5-10.1) Phosphorus Level 2.8 MG/DL (2.5-4.9) Magnesium Level 2.1 MG/DL (1.8-2.4) Total Bilirubin 0.4 MG/DL (0.2-1.0) Aspartate Amino Transf (AST/SGOT) 10 U/L (15-37) Alanine Aminotransferase (ALT/SGPT) 14 U/L (12-78) Alkaline Phosphatase 71 U/L (46-116) Total Protein 4.8 G/DL (6.4-8.2) Albumin 1.8 G/DL (3.4-5.0) Globulin 3.0 g/dL Albumin/Globulin Ratio 0.6 (1.0-2.7) Thyroid Stimulating Hormone (TSH) 7.618 uiU/mL (0.358-3.740) Height (Feet): 5 Height (Inches): 0.00 Weight (Pounds): 145 Objective Physical Exam General: Awake and alert, no acute distress HEENT: NC/AT. EOMI. Cardiovascular: Irregularly irregular rhythm. Resp: Normal work of breathing. ++vent Abdomen: Abdomen is soft, nondistended. Nontender Skin: Intact. No abrasions, laceration or rash over the exposed skin MSK: Normal tone and bulk. Moving all extremities. Neuro: Awake and alert. Mentating appropriately. Hawk Ma MD Nov 03, 2020 06:29
--- NOTE | 2020-11-03 07:29 | NUR ---
NURSE HAND-OFF REPORT: Latest Vital Signs: Temperature 98.3 , Pulse 75 , B/P 142 /64 , Respiratory Rate 0 , O2 SAT 100 , Simple Mask, O2 Flow Rate 2.0 . Vital Sign Comment: EKG Rhythm: Sinus Rhythm Rhythm change?: N MD Notified?: - MD Response: Latest Elizabeth Fall Score: 70 Fall Risk: High Risk Safety Measures: Call light Within Reach, Bed Alarm Zone 1, Side Rails Side Rails x3, Bed position Low and Locked. Fall Precautions: Yellow Socks Patient Fall Education Report given to cooper eugene using sbar .
--- NOTE | 2020-11-03 08:50 | Nephrology Progress Note ---
Assessment/Plan Problem List: (1) Acute kidney injury (2) Anemia (3) Hyperkalemia (4) Elevated troponin (5) Pneumonia due to COVID-19 virus (6) Hypothyroidism Assessment Plan November 03: Remains full code. Remains intubated. FiO2 30%. Discussed with RN. Low potassium addressed. Patient remains on Lasix. Continue to monitor renal parameters. Serum creatinine slightly rising. November 02: Patient remains intubated on ventilator. FiO2 30%. Labs reviewed. Low potassium addressed. Medication list reviewed. Patient on Lasix 40 mg every 8 hours. Serum creatinine higher to 2.3. Feeding changed to Nepro. Potassium supplement given. Continue to monitor renal parameters. November 01: Seen in ICU. Now intubated on ventilator. Discussed with RN. Labs results noted. Abnormal electrolytes addressed. Discussed with RN. Continue per consultants. October 31: Patient seen in ICU. Discussed with SERGIO Miller. ABG noted. Patient acidotic. Being transfused. Potassium is being replaced. Due for another ABG and possible intubation if needed. Conferred with pulmonary and cardiology. October 30: Labs reviewed. Potassium elevated. Kayexalate ordered. Continue to monitor hemoglobin hematocrit and renal parameters. Serum creatinine 2.1. Remains on BiPAP. October 29: Seen in ICU. Discussed with SERGIO Wilkerson. Hemoglobin low. Transfuse 1 unit of packed RBCs. Potassium supplements IV given. Midodrine discontinued. Serum creatinine 2.2 stable. Patient remains on BiPAP. Continue per consultants. Continue to monitor hemoglobin hematocrit electrolytes and renal parameters. October 28: Seen in ICU. Remains on BiPAP. Low potassium and low magnesium addressed. Serum creatinine plateaued at 2.2. Continue per current treatment plan. October 27: Patient in ICU. On BiPAP. Serum creatinine rising. Blood pressure more stable. Will give 100 mg Lasix IV push with the hope of reversing oliguria. Medication list reviewed. Continue to monitor renal parameters. October 26: Seen in ICU. On pressors for low blood pressure. Serum creatinine 2.1. Albumin bolus given. Stress dose of steroids initiated. Continue to monitor renal parameters. Continue per consultants. October 25: Patient seen and examined. Trendelenburg. Blood pressure low. Tachycardic. Discussed with RN. Patient to be transferred to ICU. Discussed with ICU charge nurse and hospital charge nurse. Meanwhile patient started on Albumin bolus and 100 cc an hour D5 normal saline. Patient to be started on pressors while in ICU. Patient full code. October 24: No CHEM panel drawn today.. Renal parameters stable. Patient had a GT placed yesterday. Will check labs tomorrow. Medication list reviewed. October 23: Labs reviewed. Renal parameters unchanged. Creatinine 1.9. Continue current management. Medication list reviewed. October 22: Labs reviewed. Serum creatinine lower at 1.8. Patient started on clear liquid. Patient refuses p.o. medications and food at times. Continue per consultants. October 21: Labs reviewed. Serum creatinine unchanged. Continue per consultants. Continue to monitor renal parameters. October 20: Today's labs reviewed. Serum creatinine unchanged. RN reports patient not taking any p.o. meds. Continue per consultants. Serum creatinine appears to be baseline. October 19: Today's labs still not done yet. RN informed. Albumin bolus given again. Continue to monitor electrolytes and renal parameters. Per orders October 18: Patient hypotensive. Due for blood transfusion. Will give albumin bolus. Continue to monitor renal parameters and electrolytes. Labs and medication list reviewed Subjective ROS Limited/Unobtainable: Yes Objective Objective Last 24 Hour Vital Signs Date Time Temp Pulse Resp B/P (MAP) Pulse Ox O2 Delivery O2 Flow Rate FiO2 11/03/20 08:00 69 11/03/20 08:00 30 11/03/20 08:00 Endotracheal Tube Endotracheal Tube 11/03/20 08:00 97.6 81 20 133/60 (84) 100 11/03/20 07:00 75 0 142/64 (90) 100 11/03/20 06:00 76 0 134/62 (86) 100 11/03/20 05:00 76 0 134/62 (86) 100 11/03/20 04:00 Endotracheal Tube Endotracheal Tube 11/03/20 04:00 85 11/03/20 04:00 30 11/03/20 04:00 98.3 79 9 152/55 (87) 99 11/03/20 03:20 81 17 30 11/03/20 03:00 78 0 147/56 (86) 100 11/03/20 02:00 77 0 129/45 (73) 100 11/03/20 01:00 79 0 131/66 (87) 100 11/03/20 00:00 Endotracheal Tube Endotracheal Tube 11/03/20 00:00 30 11/03/20 00:00 98.5 82 0 130/75 (93) 100 11/02/20 23:15 94 20 30 11/02/20 23:00 81 0 140/60 (86) 100 11/02/20 22:00 83 0 133/71 (91) 100 11/02/20 21:00 72 11/02/20 21:00 79 0 117/47 (70) 100 11/02/20 20:00 98.3 81 0 117/57 (77) 99 11/02/20 20:00 30 11/02/20 20:00 Endotracheal Tube Endotracheal Tube 11/02/20 19:06 65 15 30 11/02/20 19:00 82 0 125/55 (78) 99 11/02/20 18:00 86 0 130/77 (94) 100 11/02/20 17:00 97 0 129/66 (87) 99 11/02/20 16:00 Endotracheal Tube Endotracheal Tube 11/02/20 16:00 106 11/02/20 16:00 98.6 96 7 129/77 (94) 99 11/02/20 16:00 30 11/02/20 15:22 100 16 30 11/02/20 15:00 86 2 132/63 (86) 100 11/02/20 14:00 89 5 131/53 (79) 100 11/02/20 13:00 84 0 130/35 (66) 99 11/02/20 12:00 98.5 86 0 136/54 (81) 100 11/02/20 12:00 Endotracheal Tube Endotracheal Tube 11/02/20 12:00 85 11/02/20 12:00 30 11/02/20 11:35 81 21 30 11/02/20 11:00 87 0 126/70 (88) 100 11/02/20 10:13 30 11/02/20 10:00 94 0 142/72 (95) 100 11/02/20 09:00 81 0 144/60 (88) 100 Intake and Output 11/02/20 11/03/20 19:00 07:00 Intake Total 620.0 ml 460 ml Output Total 1190 ml 2400 ml Balance -570.0 ml -1940 ml Free Water 60 ml 100 ml IV Total 115.0 ml Tube Feeding 445 ml 360 ml Output Urine Total 1160 ml 2400 ml Stool Total 30 ml # Bowel Movements 150 Current Medications Medications (Trade) Dose Ordered Sig/Yolanda Route PRN Reason Start Time Stop Time Status Last Admin Dose Admin Acetaminophen (Tylenol) 500 mg Q6HR PRN ORAL Mild Pain 1-3 10/17/20 17:45 11/16/20 17:44 11/02/20 14:28 Acetaminophen (Tylenol) 500 mg Q6HR PRN ORAL fever >100 10/17/20 18:00 11/16/20 17:59 Acetaminophen (Tylenol) 650 mg Q4H PRN ORAL Pain Scale (6-10) 10/17/20 19:15 11/16/20 19:14 Apixaban (Eliquis) 2.5 mg BID ORAL 10/24/20 18:00 01/22/21 17:59 11/02/20 18:21 Chlorhexidine Gluconate (Eve-Hex 2%) 1 applic DAILY@2000 TOPIC 10/22/20 20:00 01/20/21 19:59 11/02/20 20:20 Digoxin (Lanoxin) 0.125 mg DAILY GT 10/30/20 09:00 01/28/21 08:59 11/02/20 08:06 Furosemide (Lasix) 40 mg EVERY 8 HOURS IV 10/31/20 14:00 11/30/20 13:59 11/03/20 05:38 Levothyroxine Sodium (Synthroid) 50 mcg DAILY@0630 ORAL 10/19/20 06:30 11/18/20 06:29 11/03/20 05:38 Norepinephrine Bitartrate 250 ml @ 0 mls/hr Q24H PRN IV For hypotension 11/01/20 11:17 11/04/20 11:16 11/01/20 11:28 Ondansetron HCl (Zofran) 4 mg Q6H PRN IVP Nausea & Vomiting 10/17/20 21:15 11/16/20 21:14 Pantoprazole (Protonix) 40 mg Q12HR IVP 11/02/20 21:00 11/25/20 20:59 11/02/20 20:51 Potassium Chloride 100 ml @ 50 mls/hr ONCE ONCE IVPB 11/03/20 08:30 11/03/20 10:29 Potassium Chloride (K-Dur) 20 meq TWICE A DAY GT 11/02/20 18:00 01/31/21 17:59 11/02/20 18:21 Laboratory Tests 11/02/20 09:12: Arterial Blood pH 7.412, Arterial Blood Partial Pressure CO2 27.7L, Arterial Blood Partial Pressure O2 104.3H, Arterial Blood HCO3 17.2*L, Arterial Blood Oxygen Saturation 97.2, Arterial Blood Base Excess -6.3L, Gallo Test Positive 11/02/20 11:37: Arterial Blood pH 7.392, Arterial Blood Partial Pressure CO2 30.4L, Arterial Blood Partial Pressure O2 103.3H, Arterial Blood HCO3 18.1L, Arterial Blood Oxygen Saturation 97.1, Arterial Blood Base Excess -6.0L, Gallo Test Positive 11/03/20 04:10: White Blood Count 5.6, Red Blood Count 3.13L, Hemoglobin 9.2L, Hematocrit 28.1L, Mean Corpuscular Volume 90, Mean Corpuscular Hemoglobin 29.4, Mean Corpuscular Hemoglobin Concent 32.8, Red Cell Distribution Width 18.7H, Platelet Count 153, Mean Platelet Volume 8.5, Neutrophils (%) (Auto) , Lymphocytes (%) (Auto) , Monocytes (%) (Auto) , Eosinophils (%) (Auto) , Basophils (%) (Auto) , Neutrophils % (Manual) [Pending], Lymphocytes % (Manual) [Pending], Platelet Estimate [Pending], Platelet Morphology [Pending], Sodium Level 142, Potassium Level 3.2L, Chloride Level 108H, Carbon Dioxide Level 21, Anion Gap 13, Blood Urea Nitrogen 51H, Creatinine 2.4H, Estimat Glomerular Filtration Rate 19.3, Glucose Level 124H, Uric Acid 7.5H, Calcium Level 7.9L, Phosphorus Level 2.8, Magnesium Level 2.1, Total Bilirubin 0.4, Aspartate Amino Transf (AST/SGOT) 10L, Alanine Aminotransferase (ALT/SGPT) 14, Alkaline Phosphatase 71, Total Protein 4.8L, Albumin 1.8L, Globulin 3.0, Albumin/Globulin Ratio 0.6L, Vitamin D 25- Hydroxy [Pending], 25-Hydroxy Vitamin D2 [Pending], 25-Hydroxy Vitamin D3 [Pending], Thyroid Stimulating Hormone (TSH) 7.618H Height (Feet): 5 Height (Inches): 0.00 Weight (Pounds): 145 General Appearance: no apparent distress EENT: other - Intubated on ventilator Cardiovascular: normal rate Respiratory/Chest: decreased breath sounds Abdomen: distended Dustin Gómez MD Nov 03, 2020 08:50
[2020-11-03] MEDS: Pantoprazole Inj IVP SCH ×2 (09:00→21:05)
[2020-11-03] MEDS: Eliquis 2.5mg tablet ORAL SCH ×2 (09:00→18:03)
[2020-11-03] MEDS: Digoxin 0.125mg tab GT SCH (09:00)
--- NOTE | 2020-11-03 09:58 | Infectious Diseases Prog Note ---
Assessment/Plan Assessment/Plan IMPRESSION: Pneumonia Hypercapnic respiratory failure Recent history of COVID disease, Acute renal failure, Severe aortic stenosis Atrial fibrillation, hypothyroidism, Anemia. Chronic DVT of R leg Hypotension Gastrostomy status Respiratory acidosis RECOMMENDATION: Observe off of antibiotic Will f/u sputum culture Will f/u Chest US Subjective ROS Limited/Unobtainable: Yes Constitutional: Denies: fever Cardiovascular: Reports: other Gastrointestinal/Abdominal: Reports: diarrhea Neurologic: Reports: other - on restraint Allergies: Coded Allergies: No Known Allergies (Unverified , 10/17/20) Objective Last 24 Hour Vital Signs Date Time Temp Pulse Resp B/P (MAP) Pulse Ox O2 Delivery O2 Flow Rate FiO2 11/03/20 09:00 73 11/03/20 09:00 73 22 143/54 (83) 100 11/03/20 08:00 69 11/03/20 08:00 30 11/03/20 08:00 Endotracheal Tube Endotracheal Tube 11/03/20 08:00 97.6 81 20 133/60 (84) 100 11/03/20 07:00 75 0 142/64 (90) 100 11/03/20 06:00 76 0 134/62 (86) 100 11/03/20 05:00 76 0 134/62 (86) 100 11/03/20 04:00 Endotracheal Tube Endotracheal Tube 11/03/20 04:00 85 11/03/20 04:00 30 11/03/20 04:00 98.3 79 9 152/55 (87) 99 11/03/20 03:20 81 17 30 11/03/20 03:00 78 0 147/56 (86) 100 11/03/20 02:00 77 0 129/45 (73) 100 11/03/20 01:00 79 0 131/66 (87) 100 11/03/20 00:00 Endotracheal Tube Endotracheal Tube 11/03/20 00:00 30 11/03/20 00:00 98.5 82 0 130/75 (93) 100 11/02/20 23:15 94 20 30 11/02/20 23:00 81 0 140/60 (86) 100 11/02/20 22:00 83 0 133/71 (91) 100 11/02/20 21:00 72 11/02/20 21:00 79 0 117/47 (70) 100 11/02/20 20:00 98.3 81 0 117/57 (77) 99 11/02/20 20:00 30 11/02/20 20:00 Endotracheal Tube Endotracheal Tube 11/02/20 19:06 65 15 30 11/02/20 19:00 82 0 125/55 (78) 99 11/02/20 18:00 86 0 130/77 (94) 100 11/02/20 17:00 97 0 129/66 (87) 99 11/02/20 16:00 Endotracheal Tube Endotracheal Tube 11/02/20 16:00 106 11/02/20 16:00 98.6 96 7 129/77 (94) 99 11/02/20 16:00 30 11/02/20 15:22 100 16 30 11/02/20 15:00 86 2 132/63 (86) 100 11/02/20 14:00 89 5 131/53 (79) 100 11/02/20 13:00 84 0 130/35 (66) 99 11/02/20 12:00 98.5 86 0 136/54 (81) 100 11/02/20 12:00 Endotracheal Tube Endotracheal Tube 11/02/20 12:00 85 11/02/20 12:00 30 11/02/20 11:35 81 21 30 11/02/20 11:00 87 0 126/70 (88) 100 11/02/20 10:13 30 11/02/20 10:00 94 0 142/72 (95) 100 Height (Feet): 5 Height (Inches): 0.00 Weight (Pounds): 145 HEENT: other - orally intubated Respiratory/Chest: decreased breath sounds, other - on ventilator Cardiovascular: normal rate, other - left subclavian central line Abdomen: soft, non tender, other - GT & rectal tube Extremities: other - anasarca Neurologic/Psychiatric: other - sleeping Laboratory Tests Test 11/02/20 11:37 11/03/20 04:10 Arterial Blood pH 7.392 (7.350-7.450) Arterial Blood Partial Pressure CO2 30.4 mmHg (35.0-45.0) L Arterial Blood Partial Pressure O2 103.3 mmHg (75.0-100.0) H Arterial Blood HCO3 18.1 mmol/L (22.0-26.0) L Arterial Blood Oxygen Saturation 97.1 % (95-100) Arterial Blood Base Excess -6.0 (-2-2) L Gallo Test Positive White Blood Count 5.6 K/UL (4.8-10.8) Red Blood Count 3.13 M/UL (4.20-5.40) L Hemoglobin 9.2 G/DL (12.0-16.0) L Hematocrit 28.1 % (37.0-47.0) L Mean Corpuscular Volume 90 FL (80-99) Mean Corpuscular Hemoglobin 29.4 PG (27.0-31.0) Mean Corpuscular Hemoglobin Concent 32.8 G/DL (32.0-36.0) Red Cell Distribution Width 18.7 % (11.6-14.8) H Platelet Count 153 K/UL (150-450) Mean Platelet Volume 8.5 FL (6.5-10.1) Neutrophils (%) (Auto) % (45.0-75.0) Lymphocytes (%) (Auto) % (20.0-45.0) Monocytes (%) (Auto) % (1.0-10.0) Eosinophils (%) (Auto) % (0.0-3.0) Basophils (%) (Auto) % (0.0-2.0) Differential Total Cells Counted 100 Neutrophils % (Manual) 84 % (45-75) H Lymphocytes % (Manual) 7 % (20-45) L Monocytes % (Manual) 6 % (1-10) Eosinophils % (Manual) 2 % (0-3) Basophils % (Manual) 0 % (0-2) Band Neutrophils 1 % (0-8) Nucleated Red Blood Cells 1 /100 WBC Platelet Estimate Adequate Platelet Morphology Normal Polychromasia 1+ Hypochromasia 1+ Anisocytosis 1+ Sodium Level 142 MMOL/L (136-145) Potassium Level 3.2 MMOL/L (3.5-5.1) L Chloride Level 108 MMOL/L (98-107) H Carbon Dioxide Level 21 MMOL/L (21-32) Anion Gap 13 mmol/L (5-15) Blood Urea Nitrogen 51 mg/dL (7-18) H Creatinine 2.4 MG/DL (0.55-1.30) H Estimat Glomerular Filtration Rate 19.3 mL/min (>60) Glucose Level 124 MG/DL (74-106) H Uric Acid 7.5 MG/DL (2.6-7.2) H Calcium Level 7.9 MG/DL (8.5-10.1) L Phosphorus Level 2.8 MG/DL (2.5-4.9) Magnesium Level 2.1 MG/DL (1.8-2.4) Total Bilirubin 0.4 MG/DL (0.2-1.0) Aspartate Amino Transf (AST/SGOT) 10 U/L (15-37) L Alanine Aminotransferase (ALT/SGPT) 14 U/L (12-78) Alkaline Phosphatase 71 U/L (46-116) Total Protein 4.8 G/DL (6.4-8.2) L Albumin 1.8 G/DL (3.4-5.0) L Globulin 3.0 g/dL Albumin/Globulin Ratio 0.6 (1.0-2.7) L Vitamin D 25-Hydroxy Pending 25-Hydroxy Vitamin D2 Pending 25-Hydroxy Vitamin D3 Pending Thyroid Stimulating Hormone (TSH) 7.618 uiU/mL (0.358-3.740) Current Medications Medications (Trade) Dose Ordered Sig/Yolanda Route PRN Reason Start Time Stop Time Status Last Admin Dose Admin Acetaminophen (Tylenol) 500 mg Q6HR PRN ORAL Mild Pain 1-3 10/17/20 17:45 11/16/20 17:44 11/02/20 14:28 Acetaminophen (Tylenol) 500 mg Q6HR PRN ORAL fever >100 10/17/20 18:00 11/16/20 17:59 Acetaminophen (Tylenol) 650 mg Q4H PRN ORAL Pain Scale (6-10) 10/17/20 19:15 11/16/20 19:14 Apixaban (Eliquis) 2.5 mg BID ORAL 10/24/20 18:00 01/22/21 17:59 11/03/20 09:00 Chlorhexidine Gluconate (Eve-Hex 2%) 1 applic DAILY@1999 TOPIC 10/22/20 20:00 01/20/21 19:59 11/02/20 20:20 Digoxin (Lanoxin) 0.125 mg DAILY GT 10/30/20 09:00 01/28/21 08:59 11/03/20 09:00 Furosemide (Lasix) 40 mg EVERY 8 HOURS IV 10/31/20 14:00 11/30/20 13:59 11/03/20 05:38 Levothyroxine Sodium (Synthroid) 50 mcg DAILY@0630 ORAL 10/19/20 06:30 11/18/20 06:29 11/03/20 05:38 Norepinephrine Bitartrate 250 ml @ 0 mls/hr Q24H PRN IV For hypotension 11/01/20 11:17 11/04/20 11:16 11/01/20 11:28 Ondansetron HCl (Zofran) 4 mg Q6H PRN IVP Nausea & Vomiting 10/17/20 21:15 11/16/20 21:14 Pantoprazole (Protonix) 40 mg Q12HR IVP 11/02/20 21:00 11/25/20 20:59 11/03/20 09:00 Potassium Chloride 100 ml @ 50 mls/hr ONCE ONCE IVPB 11/03/20 08:30 11/03/20 10:29 11/03/20 09:00 Potassium Chloride (K-Dur) 20 meq TWICE A DAY GT 11/02/20 18:00 01/31/21 17:59 11/03/20 09:00 Luis Alvarado MD Nov 03, 2020 09:58
--- NOTE | 2020-11-03 10:29 | NUR ---
1000 pt seen tate roche k+ replacement ordered
--- NOTE | 2020-11-03 11:22 | NUR ---
pt, seen by ubaldo jerome bedside report given no new orders
--- NOTE | 2020-11-03 11:50 | Cardiac Electrophysiology PN ---
Assessment/Plan Assessment/Plan 1. NSTEMI with elevated troponin of more than 0.2 and hx of prior ND The level has come down to 0.19, but the levels are flat and likely due to renal failure as the creatinine is 2.1. On aspirin and off Lopressor as hypotensive 2. Atrial fibrillation with rapid ventricular response. Off Lopressor as BP in 70s. On Eliquis 2.5 bid Better on Dig 0.125 PEG daily. Dig level 0.9 3. Respiratory failure on the Vent now. Decrease Lasix to 40 iv daily if CXR better 4. S/P Septic shock, off Levophed 5. Renal insufficiency. BUN 51 Cr 2.4 6. Status post COVID pneumonia, was tested positive more than two weeks ago. Now is Covid negative 7. Dysphagia, S/P PEG 10/23/[address] code[address] DW Dr. Gómez and Chuck Subjective Subjective S/P PEG by Dr. Tobar 10/23/20 In ICU off Levophed on LAsix 40 iv q 8 Covid negative 10/25 On 30% Fio2 and PEEP 5. In atrial fib with rate around 100 Alert off restraints. Failed weaning yesterday Objective Last 24 Hour Vital Signs Date Time Temp Pulse Resp B/P (MAP) Pulse Ox O2 Delivery O2 Flow Rate FiO2 11/03/20 11:00 77 12 143/65 (91) 100 11/03/20 10:00 69 20 150/65 (93) 100 11/03/20 09:00 73 22 143/54 (83) 100 11/03/20 09:00 73 11/03/20 08:00 69 11/03/20 08:00 30 11/03/20 08:00 Endotracheal Tube Endotracheal Tube 11/03/20 08:00 97.6 81 20 133/60 (84) 100 11/03/20 07:57 71 17 30 11/03/20 07:00 75 0 142/64 (90) 100 11/03/20 06:00 76 0 134/62 (86) 100 11/03/20 05:00 76 0 134/62 (86) 100 11/03/20 04:00 Endotracheal Tube Endotracheal Tube 11/03/20 04:00 85 11/03/20 04:00 30 11/03/20 04:00 98.3 79 9 152/55 (87) 99 11/03/20 03:20 81 17 30 11/03/20 03:00 78 0 147/56 (86) 100 11/03/20 02:00 77 0 129/45 (73) 100 11/03/20 01:00 79 0 131/66 (87) 100 11/03/20 00:00 Endotracheal Tube Endotracheal Tube 11/03/20 00:00 30 11/03/20 00:00 98.5 82 0 130/75 (93) 100 11/02/20 23:15 94 20 30 11/02/20 23:00 81 0 140/60 (86) 100 11/02/20 22:00 83 0 133/71 (91) 100 11/02/20 21:00 72 11/02/20 21:00 79 0 117/47 (70) 100 11/02/20 20:00 98.3 81 0 117/57 (77) 99 11/02/20 20:00 30 11/02/20 20:00 Endotracheal Tube Endotracheal Tube 11/02/20 19:06 65 15 30 11/02/20 19:00 82 20 125/55 (78) 99 11/02/20 18:00 86 20 130/77 (94) 100 11/02/20 17:00 97 20 129/66 (87) 99 11/02/20 16:00 Endotracheal Tube Endotracheal Tube 11/02/20 16:00 106 11/02/20 16:00 98.6 96 20 129/77 (94) 99 11/02/20 16:00 30 11/02/20 15:22 100 16 30 11/02/20 15:00 86 20 132/63 (86) 100 11/02/20 14:00 89 19 131/53 (79) 100 11/02/20 13:00 84 19 130/35 (66) 99 11/02/20 12:00 98.5 86 19 136/54 (81) 100 11/02/20 12:00 Endotracheal Tube Endotracheal Tube 11/02/20 12:00 85 11/02/20 12:00 30 Intake and Output 11/02/20 11/03/20 19:00 07:00 Intake Total 620.0 ml 460 ml Output Total 1190 ml 2400 ml Balance -570.0 ml -1940 ml Free Water 60 ml 100 ml IV Total 115.0 ml Tube Feeding 445 ml 360 ml Output Urine Total 1160 ml 2400 ml Stool Total 30 ml # Bowel Movements 150 Laboratory Tests Test 11/03/20 04:10 White Blood Count 5.6 K/UL (4.8-10.8) Red Blood Count 3.13 M/UL (4.20-5.40) L Hemoglobin 9.2 G/DL (12.0-16.0) L Hematocrit 28.1 % (37.0-47.0) L Mean Corpuscular Volume 90 FL (80-99) Mean Corpuscular Hemoglobin 29.4 PG (27.0-31.0) Mean Corpuscular Hemoglobin Concent 32.8 G/DL (32.0-36.0) Red Cell Distribution Width 18.7 % (11.6-14.8) H Platelet Count 153 K/UL (150-450) Mean Platelet Volume 8.5 FL (6.5-10.1) Neutrophils (%) (Auto) % (45.0-75.0) Lymphocytes (%) (Auto) % (20.0-45.0) Monocytes (%) (Auto) % (1.0-10.0) Eosinophils (%) (Auto) % (0.0-3.0) Basophils (%) (Auto) % (0.0-2.0) Differential Total Cells Counted 100 Neutrophils % (Manual) 84 % (45-75) H Lymphocytes % (Manual) 7 % (20-45) L Monocytes % (Manual) 6 % (1-10) Eosinophils % (Manual) 2 % (0-3) Basophils % (Manual) 0 % (0-2) Band Neutrophils 1 % (0-8) Nucleated Red Blood Cells 1 /100 WBC Platelet Estimate Adequate Platelet Morphology Normal Polychromasia 1+ Hypochromasia 1+ Anisocytosis 1+ Sodium Level 142 MMOL/L (136-145) Potassium Level 3.2 MMOL/L (3.5-5.1) L Chloride Level 108 MMOL/L (98-107) H Carbon Dioxide Level 21 MMOL/L (21-32) Anion Gap 13 mmol/L (5-15) Blood Urea Nitrogen 51 mg/dL (7-18) H Creatinine 2.4 MG/DL (0.55-1.30) H Estimat Glomerular Filtration Rate 19.3 mL/min (>60) Glucose Level 124 MG/DL (74-106) H Uric Acid 7.5 MG/DL (2.6-7.2) H Calcium Level 7.9 MG/DL (8.5-10.1) L Phosphorus Level 2.8 MG/DL (2.5-4.9) Magnesium Level 2.1 MG/DL (1.8-2.4) Total Bilirubin 0.4 MG/DL (0.2-1.0) Aspartate Amino Transf (AST/SGOT) 10 U/L (15-37) L Alanine Aminotransferase (ALT/SGPT) 14 U/L (12-78) Alkaline Phosphatase 71 U/L (46-116) Total Protein 4.8 G/DL (6.4-8.2) L Albumin 1.8 G/DL (3.4-5.0) L Globulin 3.0 g/dL Albumin/Globulin Ratio 0.6 (1.0-2.7) L Vitamin D 25-Hydroxy Pending 25-Hydroxy Vitamin D2 Pending 25-Hydroxy Vitamin D3 Pending Thyroid Stimulating Hormone (TSH) 7.618 uiU/mL (0.358-3.740) Objective HEAD AND NECK: No JVD. On BIPAP LUNGS: Decreased breath sounds. CARDIOVASCULAR: Irregular S1 and S2 with no gallop. ABDOMEN: Soft.S/P PEG EXTREMITIES: No pitting edema. Terry Reyes MD Nov 03, 2020 11:50
--- NOTE | 2020-11-03 12:01 | Surgery Progress Note ---
Surgery Progress Note Subjective Procedure Performed left subclavian central venous catheter insertion Additional Comments no acute events ill appearing grimace on vent off pressors Objective Last 24 Hour Vital Signs Date Time Temp Pulse Resp B/P (MAP) Pulse Ox O2 Delivery O2 Flow Rate FiO2 11/03/20 11:00 77 12 143/65 (91) 100 11/03/20 10:00 69 20 150/65 (93) 100 11/03/20 09:00 73 22 143/54 (83) 100 11/03/20 09:00 73 11/03/20 08:00 69 11/03/20 08:00 30 11/03/20 08:00 Endotracheal Tube Endotracheal Tube 11/03/20 08:00 97.6 81 20 133/60 (84) 100 11/03/20 07:57 71 17 30 11/03/20 07:00 75 0 142/64 (90) 100 11/03/20 06:00 76 0 134/62 (86) 100 11/03/20 05:00 76 0 134/62 (86) 100 11/03/20 04:00 Endotracheal Tube Endotracheal Tube 11/03/20 04:00 85 11/03/20 04:00 30 11/03/20 04:00 98.3 79 9 152/55 (87) 99 11/03/20 03:20 81 17 30 11/03/20 03:00 78 0 147/56 (86) 100 11/03/20 02:00 77 0 129/45 (73) 100 11/03/20 01:00 79 0 131/66 (87) 100 11/03/20 00:00 Endotracheal Tube Endotracheal Tube 11/03/20 00:00 30 11/03/20 00:00 98.5 82 0 130/75 (93) 100 11/02/20 23:15 94 20 30 11/02/20 23:00 81 0 140/60 (86) 100 11/02/20 22:00 83 0 133/71 (91) 100 11/02/20 21:00 72 11/02/20 21:00 79 0 117/47 (70) 100 11/02/20 20:00 98.3 81 0 117/57 (77) 99 11/02/20 20:00 30 11/02/20 20:00 Endotracheal Tube Endotracheal Tube 11/02/20 19:06 65 15 30 11/02/20 19:00 82 20 125/55 (78) 99 11/02/20 18:00 86 20 130/77 (94) 100 11/02/20 17:00 97 20 129/66 (87) 99 11/02/20 16:00 Endotracheal Tube Endotracheal Tube 11/02/20 16:00 106 11/02/20 16:00 98.6 96 20 129/77 (94) 99 11/02/20 16:00 30 11/02/20 15:22 100 16 30 11/02/20 15:00 86 20 132/63 (86) 100 11/02/20 14:00 89 19 131/53 (79) 100 11/02/20 13:00 84 19 130/35 (66) 99 I&O Intake and Output 11/02/20 11/03/20 19:00 07:00 Intake Total 620.0 ml 460 ml Output Total 1190 ml 2400 ml Balance -570.0 ml -1940 ml Free Water 60 ml 100 ml IV Total 115.0 ml Tube Feeding 445 ml 360 ml Output Urine Total 1160 ml 2400 ml Stool Total 30 ml # Bowel Movements 150 Dressing: saturated Cardiovascular: RSR Respiratory: decreased breath sounds Abdomen: soft, non-tender, present bowel sounds, non-distended Extremities: no tenderness, no cyanosis Laboratory Tests Test 11/03/20 04:10 White Blood Count 5.6 K/UL (4.8-10.8) Red Blood Count 3.13 M/UL (4.20-5.40) L Hemoglobin 9.2 G/DL (12.0-16.0) L Hematocrit 28.1 % (37.0-47.0) L Mean Corpuscular Volume 90 FL (80-99) Mean Corpuscular Hemoglobin 29.4 PG (27.0-31.0) Mean Corpuscular Hemoglobin Concent 32.8 G/DL (32.0-36.0) Red Cell Distribution Width 18.7 % (11.6-14.8) H Platelet Count 153 K/UL (150-450) Mean Platelet Volume 8.5 FL (6.5-10.1) Neutrophils (%) (Auto) % (45.0-75.0) Lymphocytes (%) (Auto) % (20.0-45.0) Monocytes (%) (Auto) % (1.0-10.0) Eosinophils (%) (Auto) % (0.0-3.0) Basophils (%) (Auto) % (0.0-2.0) Differential Total Cells Counted 100 Neutrophils % (Manual) 84 % (45-75) H Lymphocytes % (Manual) 7 % (20-45) L Monocytes % (Manual) 6 % (1-10) Eosinophils % (Manual) 2 % (0-3) Basophils % (Manual) 0 % (0-2) Band Neutrophils 1 % (0-8) Nucleated Red Blood Cells 1 /100 WBC Platelet Estimate Adequate Platelet Morphology Normal Polychromasia 1+ Hypochromasia 1+ Anisocytosis 1+ Sodium Level 142 MMOL/L (136-145) Potassium Level 3.2 MMOL/L (3.5-5.1) L Chloride Level 108 MMOL/L (98-107) H Carbon Dioxide Level 21 MMOL/L (21-32) Anion Gap 13 mmol/L (5-15) Blood Urea Nitrogen 51 mg/dL (7-18) H Creatinine 2.4 MG/DL (0.55-1.30) H Estimat Glomerular Filtration Rate 19.3 mL/min (>60) Glucose Level 124 MG/DL (74-106) H Uric Acid 7.5 MG/DL (2.6-7.2) H Calcium Level 7.9 MG/DL (8.5-10.1) L Phosphorus Level 2.8 MG/DL (2.5-4.9) Magnesium Level 2.1 MG/DL (1.8-2.4) Total Bilirubin 0.4 MG/DL (0.2-1.0) Aspartate Amino Transf (AST/SGOT) 10 U/L (15-37) L Alanine Aminotransferase (ALT/SGPT) 14 U/L (12-78) Alkaline Phosphatase 71 U/L (46-116) Total Protein 4.8 G/DL (6.4-8.2) L Albumin 1.8 G/DL (3.4-5.0) L Globulin 3.0 g/dL Albumin/Globulin Ratio 0.6 (1.0-2.7) L Vitamin D 25-Hydroxy Pending 25-Hydroxy Vitamin D2 Pending 25-Hydroxy Vitamin D3 Pending Thyroid Stimulating Hormone (TSH) 7.618 uiU/mL (0.358-3.740) Plan Problems: (1) Anemia (2) Acute kidney injury (3) Atrial fibrillation (4) Hyperkalemia (5) Elevated troponin (6) Decubitus skin ulcer Assessment & Plan: Pt presented on admission with Multiple Medical Comorbidities including Covid-19 and Pressure Injuries. Primary Nurse reported Pt has been declining food and medications. Sacral DTPI that is evolving noted to Sacrum(L)6cm x (W)12.5cm.. Scattered Purpuric areas that are indurated noted to R and L cheek. Small wound that is 100% slough (L)0.6cm x (W)0.7cm noted at sacrococcygeal area within base of DTPI. MASD noted to Perineum and skin folds of Medial/posterior aspects of Both upper thighs. Affected areas are erythematous and macerated with scattered satellite lesions. DTPI L Heel (L)3cm x (W)4cm, Base of heel is maroon and fluctuant with small purpuric area (L)0.4cm x (W)0.9cm within base of DTPI. l Foot including toes are mottled and cool to touch. L Heel is boggy. L Heel including toes are Mottled and cool to touch. Tx.Plan: Apply Moisture Barrier Paste to Sacrum. Cover with Optifoam drsg.Change every 3 days and prn. Apply Moisture Barrier Paste to abdominal folds, Perineum and skin folds of both upper thighs. Apply Cavilon Skin Barrier to both heels. Cover each Heel with Optifoam drsg. Change every 7 days and prn. Reposition at least every 2hours or as tolerated. Off-load heels with pillow. (7) Malnutrition Assessment & Plan: She was able to self feed on right hand and took a bite of popsicle and tolerated without s.s of aspiration. After 1st bite, then she refused 2nd bite. After this was done, I offered her a cup of cranberry juice, she took few sips and tolerated without s.s of aspiration. I continued to offer but she refused further PO. A: 1. Functional swallow 2. Failure to thrive 3. abnormal electrolytes in setting of heart failure, NSTEMI, elevated BNP, etc.. P/Rec. 1. Pureed and thin liquid 2.3. Goal of care discussion DAILY ESTIMATED NEEDS: Needs based on Cardiac, pulmonary/ 51kg abw 25-30 kcals/kg [id number] total kcals 1-1.5 g protein/kg 51-76 g total protein 20-25 mL/kg [id number] total fluid mLs NUTRITION DIAGNOSIS: Swallowing difficulty R/T dysphagia, decreased cognitive fxn as evidenced by SLOT MACHINE [employer] PERSON recommends pureed moist texture diet at this time. CURRENT DIET:NPO PO DIET RECOMMENDATIONS: Liberalized REGULAR w/ poor PO (texture per SLOT MACHINE KEY PERSON) ADDITIONAL RECOMMENDATIONS: * Calibrated bedscale wt * Monitor PO intake: refusing meds and foods at this time -> rec nonoral feeds w/ continued refusal of PO if part of POC * LOW NA diet w/ PO intake consistently >50% * 4 oz Ensure TID w/ meals (4oz at this time due to poor acceptance, may increase to 8oz w/ good acceptance) (8) Pneumonia due to COVID-19 virus Assessment & Plan: here appears to be increased left pleural fluid and generalized hazy parenchymal opacity, left greater than right. Heart remains enlarged Impression: Increased left pleural effusion Suspect increasing bilateral left greater than right pulmonary edema versus infiltrates worsening intubated on vent (9) Hypothyroidism Ana LuisaJulio CesarJim Nov 03, 2020 12:00
--- NOTE | 2020-11-03 12:10 | Pulmonology Progress Note ---
Subjective ROS Limited/Unobtainable: Yes Interval Events: Intubated 10/31/20 Constitutional: Denies: fever HEENT: Repors: no symptoms Respiratory: Reports: no symptoms Cardiovascular: Reports: no symptoms Gastrointestinal/Abdominal: Reports: diarrhea Psychiatric: Reports: other - s/p PEG Allergies: Coded Allergies: No Known Allergies (Unverified , 10/17/20) All Systems: reviewed and negative except above Objective Last 24 Hour Vital Signs Date Time Temp Pulse Resp B/P (MAP) Pulse Ox O2 Delivery O2 Flow Rate FiO2 11/03/20 12:00 30 11/03/20 12:00 Endotracheal Tube Endotracheal Tube 11/03/20 12:00 86 11/03/20 12:00 98.0 85 11 141/60 (87) 100 11/03/20 11:00 77 12 143/65 (91) 100 11/03/20 10:00 69 20 150/65 (93) 100 11/03/20 09:00 73 22 143/54 (83) 100 11/03/20 09:00 73 11/03/20 08:00 69 11/03/20 08:00 30 11/03/20 08:00 Endotracheal Tube Endotracheal Tube 11/03/20 08:00 97.6 81 20 133/60 (84) 100 11/03/20 07:57 71 17 30 11/03/20 07:00 75 0 142/64 (90) 100 11/03/20 06:00 76 0 134/62 (86) 100 11/03/20 05:00 76 0 134/62 (86) 100 11/03/20 04:00 Endotracheal Tube Endotracheal Tube 11/03/20 04:00 85 11/03/20 04:00 30 11/03/20 04:00 98.3 79 9 152/55 (87) 99 11/03/20 03:20 81 17 30 11/03/20 03:00 78 0 147/56 (86) 100 11/03/20 02:00 77 0 129/45 (73) 100 11/03/20 01:00 79 0 131/66 (87) 100 11/03/20 00:00 Endotracheal Tube Endotracheal Tube 11/03/20 00:00 30 11/03/20 00:00 98.5 82 0 130/75 (93) 100 11/02/20 23:15 94 20 30 11/02/20 23:00 81 0 140/60 (86) 100 11/02/20 22:00 83 0 133/71 (91) 100 11/02/20 21:00 72 11/02/20 21:00 79 0 117/47 (70) 100 11/02/20 20:00 98.3 81 0 117/57 (77) 99 11/02/20 20:00 30 11/02/20 20:00 Endotracheal Tube Endotracheal Tube 11/02/20 19:06 65 15 30 11/02/20 19:00 82 20 125/55 (78) 99 11/02/20 18:00 86 20 130/77 (94) 100 11/02/20 17:00 97 20 129/66 (87) 99 11/02/20 16:00 Endotracheal Tube Endotracheal Tube 11/02/20 16:00 106 11/02/20 16:00 98.6 96 20 129/77 (94) 99 11/02/20 16:00 30 11/02/20 15:22 100 16 30 11/02/20 15:00 86 20 132/63 (86) 100 11/02/20 14:00 89 19 131/53 (79) 100 11/02/20 13:00 84 19 130/35 (66) 99 Intake and Output 11/02/20 11/03/20 19:00 07:00 Intake Total 620.0 ml 460 ml Output Total 1190 ml 2400 ml Balance -570.0 ml -1940 ml Free Water 60 ml 100 ml IV Total 115.0 ml Tube Feeding 445 ml 360 ml Output Urine Total 1160 ml 2400 ml Stool Total 30 ml # Bowel Movements 150 General Appearance: no acute distress HEENT: atraumatic Respiratory: lungs clear Cardiovascular: normal rate, regular rhythm Abdomen: soft, non tender, other - s/p PEG Laboratory Tests 11/03/20 04:10: White Blood Count 5.6, Red Blood Count 3.13L, Hemoglobin 9.2L, Hematocrit 28.1L, Mean Corpuscular Volume 90, Mean Corpuscular Hemoglobin 29.4, Mean Corpuscular Hemoglobin Concent 32.8, Red Cell Distribution Width 18.7H, Platelet Count 153, Mean Platelet Volume 8.5, Neutrophils (%) (Auto) , Lymphocytes (%) (Auto) , Monocytes (%) (Auto) , Eosinophils (%) (Auto) , Basophils (%) (Auto) , Differential Total Cells Counted 100, Neutrophils % (Manual) 84H, Lymphocytes % (Manual) 7L, Monocytes % (Manual) 6, Eosinophils % (Manual) 2, Basophils % (Manual) 0, Band Neutrophils 1, Nucleated Red Blood Cells 1, Platelet Estimate Adequate, Platelet Morphology Normal, Polychromasia 1+, Hypochromasia 1+, Anisocytosis 1+, Sodium Level 142, Potassium Level 3.2L, Chloride Level 108H, Carbon Dioxide Level 21, Anion Gap 13, Blood Urea Nitrogen 51H, Creatinine 2.4H, Estimat Glomerular Filtration Rate 19.3, Glucose Level 124H, Uric Acid 7.5H, Calcium Level 7.9L, Phosphorus Level 2.8, Magnesium Level 2.1, Total Bilirubin 0.4, Aspartate Amino Transf (AST/SGOT) 10L, Alanine Aminotransferase (ALT/SGPT) 14, Alkaline Phosphatase 71, Total Protein 4.8L, Albumin 1.8L, Globulin 3.0, Albumin/Globulin Ratio 0.6L, Vitamin D 25-Hydroxy [Pending], 25-Hydroxy Vitamin D2 [Pending], 25-Hydroxy Vitamin D3 [Pending], Thyroid Stimulating Hormone (TSH) 7.618H Current Medications Medications (Trade) Dose Ordered Sig/Yolanda Route PRN Reason Start Time Stop Time Status Last Admin Dose Admin Acetaminophen (Tylenol) 500 mg Q6HR PRN ORAL Mild Pain 1-3 10/17/20 17:45 11/16/20 17:44 11/02/20 14:28 Acetaminophen (Tylenol) 500 mg Q6HR PRN ORAL fever >100 10/17/20 18:00 11/16/20 17:59 Acetaminophen (Tylenol) 650 mg Q4H PRN ORAL Pain Scale (6-10) 10/17/20 19:15 11/16/20 19:14 Apixaban (Eliquis) 2.5 mg BID ORAL 10/24/20 18:00 01/22/21 17:59 11/03/20 09:00 Chlorhexidine Gluconate (Eve-Hex 2%) 1 applic DAILY@2000 TOPIC 10/22/20 20:00 01/20/21 19:59 11/02/20 20:20 Digoxin (Lanoxin) 0.125 mg DAILY GT 10/30/20 09:00 01/28/21 08:59 11/03/20 09:00 Furosemide (Lasix) 40 mg EVERY 8 HOURS IV 10/31/20 14:00 11/30/20 13:59 11/03/20 05:38 Levothyroxine Sodium (Synthroid) 50 mcg DAILY@0630 ORAL 10/19/20 06:30 11/18/20 06:29 11/03/20 05:38 Norepinephrine Bitartrate 250 ml @ 0 mls/hr Q24H PRN IV For hypotension 11/01/20 11:17 11/04/20 11:16 11/01/20 11:28 Ondansetron HCl (Zofran) 4 mg Q6H PRN IVP Nausea & Vomiting 10/17/20 21:15 11/16/20 21:14 Pantoprazole (Protonix) 40 mg Q12HR IVP 11/02/20 21:00 11/25/20 20:59 11/03/20 09:00 Potassium Chloride (K-Dur) 20 meq TWICE A DAY GT 11/02/20 18:00 01/31/21 17:59 11/03/20 09:00 Assessment/Plan Assessment/Plan 1. CHF. 2. CAD/previous non-STEMI. 3. half-way resident. 4. Bradycardia. 5. Atrial fibrillation. -Started on Eliquis 6. Renal insufficiency. -Nephro following 7. Troponin leak. - Cardio following 8. COVID-19 pneumonia, without fever or leukocytosis - Now intubated - ABG improved 9. Hypoxemia 10. 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 UTI, cheryl 12. Dysphagia -s/p PEG (10/23) 13. Hypotension; improved - s/p NS bolus - pressors as needed - will continue diureses 14. Respiratory failure, s/p vent - 40% FiO2, PEEP 5 -> continue weaning trial Continue weaning trial The care of this patient was discussed with my supervising physician Time spent for this encounter was approximately 31 minutes Tl Pedro Nov 03, 2020 12:10
--- NOTE | 2020-11-03 13:20 | General Progress Note ---
Subjective ROS Limited/Unobtainable: No Allergies: Coded Allergies: No Known Allergies (Unverified , 10/17/20) Subjective intubated now Objective Last 24 Hour Vital Signs Date Time Temp Pulse Resp B/P (MAP) Pulse Ox O2 Delivery O2 Flow Rate FiO2 11/03/20 13:00 68 12 145/78 (100) 100 11/03/20 12:00 30 11/03/20 12:00 Endotracheal Tube Endotracheal Tube 11/03/20 12:00 86 11/03/20 12:00 98.0 85 11 141/60 (87) 100 11/03/20 11:29 74 13 30 11/03/20 11:00 77 12 143/65 (91) 100 11/03/20 10:00 69 20 150/65 (93) 100 11/03/20 09:00 73 22 143/54 (83) 100 11/03/20 09:00 73 11/03/20 08:00 69 11/03/20 08:00 30 11/03/20 08:00 Endotracheal Tube Endotracheal Tube 11/03/20 08:00 97.6 81 20 133/60 (84) 100 11/03/20 07:57 71 17 30 11/03/20 07:00 75 0 142/64 (90) 100 11/03/20 06:00 76 0 134/62 (86) 100 11/03/20 05:00 76 0 134/62 (86) 100 11/03/20 04:00 Endotracheal Tube Endotracheal Tube 11/03/20 04:00 85 11/03/20 04:00 30 11/03/20 04:00 98.3 79 9 152/55 (87) 99 11/03/20 03:20 81 17 30 11/03/20 03:00 78 0 147/56 (86) 100 11/03/20 02:00 77 0 129/45 (73) 100 11/03/20 01:00 79 0 131/66 (87) 100 11/03/20 00:00 Endotracheal Tube Endotracheal Tube 11/03/20 00:00 30 11/03/20 00:00 98.5 82 0 130/75 (93) 100 11/02/20 23:15 94 20 30 11/02/20 23:00 81 0 140/60 (86) 100 11/02/20 22:00 83 0 133/71 (91) 100 11/02/20 21:00 72 11/02/20 21:00 79 0 117/47 (70) 100 11/02/20 20:00 98.3 81 0 117/57 (77) 99 11/02/20 20:00 30 11/02/20 20:00 Endotracheal Tube Endotracheal Tube 11/02/20 19:06 65 15 30 11/02/20 19:00 82 20 125/55 (78) 99 11/02/20 18:00 86 20 130/77 (94) 100 11/02/20 17:00 97 20 129/66 (87) 99 11/02/20 16:00 Endotracheal Tube Endotracheal Tube 11/02/20 16:00 106 11/02/20 16:00 98.6 96 20 129/77 (94) 99 11/02/20 16:00 30 11/02/20 15:22 100 16 30 11/02/20 15:00 86 20 132/63 (86) 100 11/02/20 14:00 89 19 131/53 (79) 100 Intake and Output 11/02/20 11/03/20 19:00 07:00 Intake Total 620.0 ml 460 ml Output Total 1190 ml 2400 ml Balance -570.0 ml -1940 ml Free Water 60 ml 100 ml IV Total 115.0 ml Tube Feeding 445 ml 360 ml Output Urine Total 1160 ml 2400 ml Stool Total 30 ml # Bowel Movements 150 Laboratory Tests 11/03/20 04:10: White Blood Count 5.6, Red Blood Count 3.13L, Hemoglobin 9.2L, Hematocrit 28.1L, Mean Corpuscular Volume 90, Mean Corpuscular Hemoglobin 29.4, Mean Corpuscular Hemoglobin Concent 32.8, Red Cell Distribution Width 18.7H, Platelet Count 153, Mean Platelet Volume 8.5, Neutrophils (%) (Auto) , Lymphocytes (%) (Auto) , Monocytes (%) (Auto) , Eosinophils (%) (Auto) , Basophils (%) (Auto) , Differential Total Cells Counted 100, Neutrophils % (Manual) 84H, Lymphocytes % (Manual) 7L, Monocytes % (Manual) 6, Eosinophils % (Manual) 2, Basophils % (Manual) 0, Band Neutrophils 1, Nucleated Red Blood Cells 1, Platelet Estimate Adequate, Platelet Morphology Normal, Polychromasia 1+, Hypochromasia 1+, Anisocytosis 1+, Sodium Level 142, Potassium Level 3.2L, Chloride Level 108H, Carbon Dioxide Level 21, Anion Gap 13, Blood Urea Nitrogen 51H, Creatinine 2.4H, Estimat Glomerular Filtration Rate 19.3, Glucose Level 124H, Uric Acid 7.5H, Singh cium Level 7.9L, Phosphorus Level 2.8, Magnesium Level 2.1, Total Bilirubin 0.4, Aspartate Amino Transf (AST/SGOT) 10L, Alanine Aminotransferase (ALT/SGPT) 14, Alkaline Phosphatase 71, Total Protein 4.8L, Albumin 1.8L, Globulin 3.0, Albumin/Globulin Ratio 0.6L, Vitamin D 25-Hydroxy [Pending], 25-Hydroxy Vitamin D2 [Pending], 25-Hydroxy Vitamin D3 [Pending], Thyroid Stimulating Hormone (TSH) 7.618H Height (Feet): 5 Height (Inches): 0.00 Weight (Pounds): 145 General Appearance: no apparent distress EENT: normal ENT inspection Neck: supple Cardiovascular: normal rate Respiratory/Chest: decreased breath sounds Abdomen: normal bowel sounds, non tender, soft Extremities: non-tender Assessment/Plan Problem List: (1) Hypothyroidism ICD Codes: E03.9 - Hypothyroidism, unspecified SNOMED: 74052387 (2) Pneumonia due to COVID-19 virus ICD Codes: U07.1 - COVID-19; J12.82 - Pneumonia due to coronavirus disease 2019 SNOMED: 422015274502691259 (3) Malnutrition ICD Codes: E46 - Unspecified protein-calorie malnutrition SNOMED: 09530944 (4) Decubitus skin ulcer ICD Codes: L89.90 - Pressure ulcer of unspecified site, unspecified stage SNOMED: 372995151 (5) Elevated troponin ICD Codes: R77.8 - Other specified abnormalities of plasma proteins SNOMED: 993074600, 105157193, 877447079 (6) Atrial fibrillation ICD Codes: I48.91 - Unspecified atrial fibrillation SNOMED: 59538727 (7) Anemia ICD Codes: D64.9 - Anemia, unspecified SNOMED: 831550213 Status: progressing Assessment/Plan: GTF fu cardiology fu pulm labs for AM intubated now Skyler Tobar MD Nov 03, 2020 13:20
--- NOTE | 2020-11-03 16:36 | NUR ---
pt, SEEN BY MAYA MATHUR BEDSIDE REPORT GIVEN NO NEW ORDERS
--- NOTE | 2020-11-03 17:34 | Diagnostic Imaging Report ---
EXAM: US Chest CLINICAL HISTORY: Shortness of breath. COMPARISON: None FINDINGS: Targeted ultrasound examination of the chest performed to localize pleural effusion. A left pleural effusion is noted. IMPRESSION: LEFT EFFUSION.
--- NOTE | 2020-11-03 20:00 | NUR ---
NURSE NOTES:received report from cooper eugene pt lethargic follows simple command move all extremities but wick tolerating tube feeding no residual reposition and suction
[2020-11-03] MEDS: Dyna-Hex 2% Top Sol 2oz TOPIC SCH (21:04)
--- NOTE | 2020-11-03 21:15 | General Progress Note ---
Subjective ROS Limited/Unobtainable: Yes Allergies: Coded Allergies: No Known Allergies (Unverified , 10/17/20) Objective Last 24 Hour Vital Signs Date Time Temp Pulse Resp B/P (MAP) Pulse Ox O2 Delivery O2 Flow Rate FiO2 11/03/20 19:20 67 19 30 11/03/20 18:57 81 12 100/75 (83) 100 11/03/20 17:59 84 15 124/48 (73) 100 11/03/20 17:00 70 12 136/64 (88) 100 11/03/20 16:00 Endotracheal Tube Endotracheal Tube 11/03/20 16:00 97 11/03/20 16:00 98.3 89 13 153/53 (86) 100 11/03/20 16:00 30 11/03/20 15:36 87 17 30 11/03/20 15:00 81 17 147/91 (109) 100 11/03/20 14:00 80 10 129/60 (83) 100 11/03/20 13:00 68 12 145/78 (100) 100 11/03/20 12:00 30 11/03/20 12:00 Endotracheal Tube Endotracheal Tube 11/03/20 12:00 86 11/03/20 12:00 98.0 85 11 141/60 (87) 100 11/03/20 11:29 74 13 30 11/03/20 11:00 77 12 143/65 (91) 100 11/03/20 10:00 69 20 150/65 (93) 100 11/03/20 09:00 73 22 143/54 (83) 100 11/03/20 09:00 73 11/03/20 08:00 69 11/03/20 08:00 30 11/03/20 08:00 Endotracheal Tube Endotracheal Tube 11/03/20 08:00 97.6 81 20 133/60 (84) 100 11/03/20 07:57 71 17 30 11/03/20 07:00 75 0 142/64 (90) 100 11/03/20 06:00 76 0 134/62 (86) 100 11/03/20 05:00 76 0 134/62 (86) 100 11/03/20 04:00 Endotracheal Tube Endotracheal Tube 11/03/20 04:00 85 11/03/20 04:00 30 11/03/20 04:00 98.3 79 9 152/55 (87) 99 11/03/20 03:20 81 17 30 11/03/20 03:00 78 0 147/56 (86) 100 11/03/20 02:00 77 0 129/45 (73) 100 11/03/20 01:00 79 0 131/66 (87) 100 11/03/20 00:00 Endotracheal Tube Endotracheal Tube 11/03/20 00:00 30 11/03/20 00:00 98.5 82 0 130/75 (93) 100 11/02/20 23:15 94 20 30 11/02/20 23:00 81 0 140/60 (86) 100 11/02/20 22:00 83 0 133/71 (91) 100 Intake and Output 11/02/20 11/03/20 19:00 07:00 Intake Total 620.0 ml 460 ml Output Total 1190 ml 2400 ml Balance -570.0 ml -1940 ml Free Water 60 ml 100 ml IV Total 115.0 ml Tube Feeding 445 ml 360 ml Output Urine Total 1160 ml 2400 ml Stool Total 30 ml # Bowel Movements 150 Laboratory Tests 11/03/20 04:10: White Blood Count 5.6, Red Blood Count 3.13L, Hemoglobin 9.2L, Hematocrit 28.1L, Mean Corpuscular Volume 90, Mean Corpuscular Hemoglobin 29.4, Mean Corpuscular Hemoglobin Concent 32.8, Red Cell Distribution Width 18.7H, Platelet Count 153, Mean Platelet Volume 8.5, Neutrophils (%) (Auto) , Lymphocytes (%) (Auto) , Monocytes (%) (Auto) , Eosinophils (%) (Auto) , Basophils (%) (Auto) , Differential Total Cells Counted 100, Neutrophils % (Manual) 84H, Lymphocytes % (Manual) 7L, Monocytes % (Manual) 6, Eosinophils % (Manual) 2, Basophils % (Man ual) 0, Band Neutrophils 1, Nucleated Red Blood Cells 1, Platelet Estimate Adequate, Platelet Morphology Normal, Polychromasia 1+, Hypochromasia 1+, Anisocytosis 1+, Sodium Level 142, Potassium Level 3.2L, Chloride Level 108H, Carbon Dioxide Level 21, Anion Gap 13, Blood Urea Nitrogen 51H, Creatinine 2.4H, Estimat Glomerular Filtration Rate 19.3, Glucose Level 124H, Uric Acid 7.5H, Calcium Level 7.9L, Phosphorus Level 2.8, Magnesium Level 2.1, Total Bilirubin 0.4, Aspartate Amino Transf (AST/SGOT) 10L, Alanine Aminotransferase (ALT/SGPT) 14, Alkaline Phosphatase 71, Total Protein 4.8L, Albumin 1.8L, Globulin 3.0, Albumin/Globulin Ratio 0.6L, Vitamin D 25-Hydroxy [Pending], 25-Hydroxy Vitamin D2 [Pending], 25-Hydroxy Vitamin D3 [Pending], Thyroid Stimulating Hormone (TSH) 7.618H Height (Feet): 5 Height (Inches): 0.00 Weight (Pounds): 145 Assessment/Plan Problem List: (1) Anemia ICD Codes: D64.9 - Anemia, unspecified SNOMED: 041766869 (2) Acute kidney injury ICD Codes: N17.9 - Acute kidney failure, unspecified SNOMED: 72610466, 0866911 (3) Atrial fibrillation ICD Codes: I48.91 - Unspecified atrial fibrillation SNOMED: 08614881 (4) Elevated troponin ICD Codes: R77.8 - Other specified abnormalities of plasma proteins SNOMED: 142892262, 191895820, 205357548 (5) Malnutrition ICD Codes: E46 - Unspecified protein-calorie malnutrition SNOMED: 81478521 (6) Pneumonia due to COVID-19 virus ICD Codes: U07.1 - COVID-19; J12.82 - Pneumonia due to coronavirus disease 2019 SNOMED: 565662160986749763 (7) Hypothyroidism ICD Codes: E03.9 - Hypothyroidism, unspecified SNOMED: 21661460 Status: progressing Assessment/Plan: chf on lasix low k intubated poor prognosis arrythmia a Neri Moura MD Nov 03, 2020 21:15
[2020-11-04] VITALS (29 sets, daily range): BP systolic 91–163; BP diastolic 39–114
--- NOTE | 2020-11-04 | NUR ---
NURSE NOTES: bs 115 on insulin coverage
--- NOTE | 2020-11-04 04:00 | NUR ---
NURSE NOTES: Complete bed bath with bed changed was done.
[2020-11-04 05:08] LABS: HEMATOCRIT 28.4 % (37.0-47.0); HEMOGLOBIN 9.2 G/DL (12.0-16.0); MEAN CORPUSCULAR VOLUME 91 FL (80-99); PLATELET COUNT 164 K/UL (150-450); RED BLOOD COUNT 3.14 M/UL (4.20-5.40); RED CELL DISTRIBUTION WIDTH 18.7 % (11.6-14.8); WHITE BLOOD COUNT 6.5 K/UL (4.8-10.8)
[2020-11-04 05:38] LABS: ALANINE AMINOTRANSFERASE 12 U/L (12-78); ALBUMIN 1.8 G/DL (3.4-5.0); ALBUMIN/GLOBULIN RATIO 0.6 (1.0-2.7); ALKALINE PHOSPHATASE 69 U/L (46-116); ANION GAP 10 mmol/L (5-15); ASPARTATE AMINO TRANSFERASE 13 U/L (15-37); BILIRUBIN,TOTAL 0.4 MG/DL (0.2-1.0); BLOOD UREA NITROGEN 52 mg/dL (7-18); CALCIUM 8.1 MG/DL (8.5-10.1); CARBON DIOXIDE 24 MMOL/L (21-32); CHLORIDE 107 MMOL/L (98-107); CREATININE 2.3 MG/DL (0.55-1.30); PHOSPHORUS 2.9 MG/DL (2.5-4.9); POTASSIUM 3.4 MMOL/L (3.5-5.1); SODIUM 141 MMOL/L (136-145)
--- NOTE | 2020-11-04 06:00 | NUR ---
NURSE NOTES: No resp. distress noted. vss.
--- NOTE | 2020-11-04 06:46 | Hematology/Onc Progress Note ---
Assessment/Plan Assessment/Plan Assessment and recs # Anemia r/o gi bleed --> anemia panel has been ordered-->reviewed --> hgb 8.1->9.3->9.7-->9.5-->10.5-->10.2-->9.1->8.6-->7.8-->8.1-->9.2 --> no hemolysis is noted --> transfuse on prn basis --> 1 unit prbc 10/30 # Thrombocytopenia likely due to reactive process --> plt 138-->149-->176-->162 --> imaging prn --> smear has been reviewed --> viral w/u neg # Hypercoag disorder with Atrial fibrillation --> consider anticoag as per cards --> if bleeding, consider hold anticoag # Elevated trop --> per cards # Hyperkalemia --> per renal # Acute kidney injury --> per renal # Resp failure on bipap # Recently COVID-19 positive # Dvt ppx scds --> lovenox sq Appreciate consultation and rosio eugene Subjective Allergies: Coded Allergies: No Known Allergies (Unverified , 10/17/20) All Systems: reviewed and negative except above Subjective 10/19 cbc is pending, did get blood transfusion last night, pending results 10/20 meds noted, no bleeding, labs reviewed, rosio rn, no new changes 10/21 on 4l nc, has been refusing labs, meds noted, no bleeding 10/22 nc, refusing meds labs reviewed, rosio rn 10/23 is potentially for egd this am, no bleeding, cbc is noted 10/25 meds noted, no bleeidng, is on nc, no night sweats, bp bolus pending 10/26 bed bath done, meds noted, no bleeding, cbc reviewed from am 10/27 lethargic, on bipap, levophed, meds reviewed 10/28 icu, lethargic, remains on bipap, pressors 10/29 icu, lethargic, meds noted, on bipap, labs noted 10/30 icu, bipap, to get 1 unit prbc, meds reviewed, labs noted 10/31 icu, on vent, no bipap 11/01: remains in icu, no bleeding reported 11/02 icu, lethargic, on vent, with gt feeds on hold, labs noted 11/03 icu, intubated on vent, lethargic, labs reviewed, meds noted 11/04 icu, remains intuabted is on vent, lethargic, labs reviewed Objective Objective Current Medications Medications (Trade) Dose Ordered Sig/Yolanda Route PRN Reason Start Time Stop Time Status Last Admin Dose Admin Acetaminophen (Tylenol) 500 mg Q6HR PRN ORAL Mild Pain 1-3 10/17/20 17:45 11/16/20 17:44 11/02/20 14:28 Acetaminophen (Tylenol) 500 mg Q6HR PRN ORAL fever >100 10/17/20 18:00 11/16/20 17:59 Acetaminophen (Tylenol) 650 mg Q4H PRN ORAL Pain Scale (6-10) 10/17/20 19:15 11/16/20 19:14 Apixaban (Eliquis) 2.5 mg BID ORAL 10/24/20 18:00 01/22/21 17:59 11/03/20 18:03 Chlorhexidine Gluconate (Eve-Hex 2%) 1 applic DAILY@1999 TOPIC 10/22/20 20:00 01/20/21 19:59 11/03/20 21:04 Digoxin (Lanoxin) 0.125 mg DAILY GT 10/30/20 09:00 01/28/21 08:59 11/03/20 09:00 Furosemide (Lasix) 40 mg EVERY 8 HOURS IV 10/31/20 14:00 11/30/20 13:59 11/04/20 05:43 Levothyroxine Sodium (Synthroid) 50 mcg DAILY@0630 ORAL 10/19/20 06:30 11/18/20 06:29 11/04/20 05:43 Norepinephrine Bitartrate 250 ml @ 0 mls/hr Q24H PRN IV For hypotension 11/01/20 11:17 11/04/20 11:16 11/01/20 11:28 Ondansetron HCl (Zofran) 4 mg Q6H PRN IVP Nausea & Vomiting 10/17/20 21:15 11/16/20 21:14 Pantoprazole (Protonix) 40 mg Q12HR IVP 11/02/20 21:00 11/25/20 20:59 11/03/20 21:05 Potassium Chloride (K-Dur) 20 meq TWICE A DAY GT 11/02/20 18:00 01/31/21 17:59 11/03/20 18:03 Last 24 Hour Vital Signs Date Time Temp Pulse Resp B/P (MAP) Pulse Ox O2 Delivery O2 Flow Rate FiO2 11/04/20 06:00 84 18 140/68 (92) 100 11/04/20 05:00 84 18 143/65 (91) 100 11/04/20 04:00 30 11/04/20 04:00 Endotracheal Tube Endotracheal Tube 11/04/20 04:00 98.5 78 14 139/60 (86) 100 11/04/20 04:00 87 11/04/20 03:25 76 18 30 11/04/20 03:00 83 14 132/114 (120) 100 11/04/20 02:00 85 17 158/79 (105) 100 11/04/20 01:00 84 17 129/59 (82) 100 11/04/20 00:00 Endotracheal Tube Endotracheal Tube 11/04/20 00:00 80 11/04/20 00:00 98.2 81 19 117/103 (108) 100 11/04/20 00:00 30 11/03/20 23:20 76 16 30 11/03/20 23:00 83 18 137/63 (87) 100 11/03/20 22:00 82 17 131/53 (79) 100 11/03/20 21:00 81 14 135/60 (85) 100 11/03/20 20:00 Endotracheal Tube Endotracheal Tube 11/03/20 20:00 83 11/03/20 20:00 98.4 80 16 137/66 (89) 100 11/03/20 20:00 30 11/03/20 19:20 67 19 30 11/03/20 18:57 81 12 100/75 (83) 100 11/03/20 17:59 84 15 124/48 (73) 100 11/03/20 17:00 70 12 136/64 (88) 100 11/03/20 16:00 Endotracheal Tube Endotracheal Tube 11/03/20 16:00 97 11/03/20 16:00 98.3 89 13 153/53 (86) 100 11/03/20 16:00 30 11/03/20 15:36 87 17 30 11/03/20 15:00 81 17 147/91 (109) 100 11/03/20 14:00 80 10 129/60 (83) 100 11/03/20 13:00 68 12 145/78 (100) 100 11/03/20 12:00 30 11/03/20 12:00 Endotracheal Tube Endotracheal Tube 11/03/20 12:00 86 11/03/20 12:00 98.0 85 11 141/60 (87) 100 11/03/20 11:29 74 13 30 11/03/20 11:00 77 12 143/65 (91) 100 11/03/20 10:00 69 20 150/65 (93) 100 11/03/20 09:00 73 22 143/54 (83) 100 11/03/20 09:00 73 11/03/20 08:00 69 11/03/20 08:00 30 11/03/20 08:00 Endotracheal Tube Endotracheal Tube 11/03/20 08:00 97.6 81 20 133/60 (84) 100 11/03/20 07:57 71 17 30 11/03/20 07:00 75 0 142/64 (90) 100 11/03/20 06:00 76 0 134/62 (86) 100 11/03/20 05:00 76 0 134/62 (86) 100 11/03/20 04:00 Endotracheal Tube Endotracheal Tube 11/03/20 04:00 85 11/03/20 04:00 30 11/03/20 04:00 98.3 79 9 152/55 (87) 99 11/03/20 03:20 81 17 30 11/03/20 03:00 78 0 147/56 (86) 100 11/03/20 02:00 77 0 129/45 (73) 100 11/03/20 01:00 79 0 131/66 (87) 100 11/03/20 00:00 Endotracheal Tube Endotracheal Tube 11/03/20 00:00 30 11/03/20 00:00 98.5 82 0 130/75 (93) 100 11/02/20 23:15 94 20 30 11/02/20 23:00 81 0 140/60 (86) 100 11/02/20 22:00 83 0 133/71 (91) 100 11/02/20 21:00 72 11/02/20 21:00 79 0 117/47 (70) 100 11/02/20 20:00 98.3 81 0 117/57 (77) 99 11/02/20 20:00 30 11/02/20 20:00 Endotracheal Tube Endotracheal Tube 11/02/20 19:06 65 15 30 11/02/20 19:00 82 20 125/55 (78) 99 11/02/20 18:00 86 20 130/77 (94) 100 11/02/20 17:00 97 20 129/66 (87) 99 11/02/20 16:00 Endotracheal Tube Endotracheal Tube 11/02/20 16:00 106 11/02/20 16:00 98.6 96 20 129/77 (94) 99 11/02/20 16:00 30 11/02/20 15:22 100 16 30 11/02/20 15:00 86 20 132/63 (86) 100 11/02/20 14:00 89 19 131/53 (79) 100 11/02/20 13:00 84 19 130/35 (66) 99 11/02/20 12:00 98.5 86 19 136/54 (81) 100 11/02/20 12:00 Endotracheal Tube Endotracheal Tube 11/02/20 12:00 85 11/02/20 12:00 30 11/02/20 11:35 81 21 30 11/02/20 11:00 87 20 126/70 (88) 100 11/02/20 10:13 30 11/02/20 10:00 94 20 142/72 (95) 100 11/02/20 09:00 81 20 144/60 (88) 100 11/02/20 08:06 80 11/02/20 08:00 80 11/02/20 08:00 98.1 77 20 120/61 (80) 100 11/02/20 08:00 Endotracheal Tube Endotracheal Tube 11/02/20 08:00 30 11/02/20 07:47 82 22 30 11/02/20 07:00 80 20 118/58 (78) 100 Intake and Output 11/03/20 11/04/20 19:00 07:00 Intake Total 640 ml 510 ml Output Total 2050 ml 1600 ml Balance -1410 ml -1090 ml Free Water 100 ml 150 ml IV Total 100 ml Tube Feeding 440 ml 360 ml Output Urine Total 1850 ml 1600 ml Stool Total 200 ml # Bowel Movements 100 Labs Test 11/01/20 07:00 11/01/20 08:13 11/02/20 04:33 11/02/20 09:12 White Blood Count 4.3 K/UL (4.8-10.8) 6.3 K/UL (4.8-10.8) Red Blood Count 3.01 M/UL (4.20-5.40) 3.16 M/UL (4.20-5.40) Hemoglobin 8.9 G/DL (12.0-16.0) 9.2 G/DL (12.0-16.0) Hematocrit 27.0 % (37.0-47.0) 28.4 % (37.0-47.0) Mean Corpuscular Volume 90 FL (80-99) 90 FL (80-99) Mean Corpuscular Hemoglobin 29.5 PG (27.0-31.0) 29.2 PG (27.0-31.0) Mean Corpuscular Hemoglobin Concent 33.0 G/DL (32.0-36.0) 32.6 G/DL (32.0-36.0) Red Cell Distribution Width 18.3 % (11.6-14.8) 18.3 % (11.6-14.8) Platelet Count 118 K/UL (150-450) 162 K/UL (150-450) Mean Platelet Volume 8.3 FL (6.5-10.1) 9.0 FL (6.5-10.1) Neutrophils (%) (Auto) % (45.0-75.0) % (45.0-75.0) Lymphocytes (%) (Auto) % (20.0-45.0) % (20.0-45.0) Monocytes (%) (Auto) % (1.0-10.0) % (1.0-10.0) Eosinophils (%) (Auto) % (0.0-3.0) % (0.0-3.0) Basophils (%) (Auto) % (0.0-2.0) % (0.0-2.0) Differential Total Cells Counted 100 100 Neutrophils % (Manual) 77 % (45-75) 81 % (45-75) Lymphocytes % (Manual) 10 % (20-45) 12 % (20-45) Monocytes % (Manual) 9 % (1-10) 4 % (1-10) Eosinophils % (Manual) 0 % (0-3) 0 % (0-3) Basophils % (Manual) 0 % (0-2) 0 % (0-2) Band Neutrophils 4 % (0-8) 3 % (0-8) Platelet Estimate Decreased Adequate Platelet Morphology Normal Normal Hypochromasia 1+ 1+ Anisocytosis 1+ 1+ Sodium Level 143 MMOL/L (136-145) 143 MMOL/L (136-145) Potassium Level 3.2 MMOL/L (3.5-5.1) 3.4 MMOL/L (3.5-5.1) Chloride Level 111 MMOL/L (98-107) 110 MMOL/L (98-107) Carbon Dioxide Level 20 MMOL/L (21-32) 19 MMOL/L (21-32) Anion Gap 12 mmol/L (5-15) 14 mmol/L (5-15) Blood Urea Nitrogen 40 mg/dL (7-18) 44 mg/dL (7-18) Creatinine 2.1 MG/DL (0.55-1.30) 2.3 MG/DL (0.55-1.30) Estimat Glomerular Filtration Rate 22.5 mL/min (>60) 20.3 mL/min (>60) Glucose Level 81 MG/DL (74-106) 108 MG/DL (74-106) Calcium Level 7.6 MG/DL (8.5-10.1) 7.3 MG/DL (8.5-10.1) Phosphorus Level 2.5 MG/DL (2.5-4.9) 2.8 MG/DL (2.5-4.9) Magnesium Level 1.5 MG/DL (1.8-2.4) 2.0 MG/DL (1.8-2.4) Total Bilirubin 0.7 MG/DL (0.2-1.0) 0.5 MG/DL (0.2-1.0) Aspartate Amino Transf (AST/SGOT) 11 U/L (15-37) 12 U/L (15-37) Alanine Aminotransferase (ALT/SGPT) 8 U/L (12-78) 14 U/L (12-78) Alkaline Phosphatase 56 U/L (46-116) 61 U/L (46-116) Total Protein 4.2 G/DL (6.4-8.2) 4.7 G/DL (6.4-8.2) Albumin 1.8 G/DL (3.4-5.0) 1.8 G/DL (3.4-5.0) Globulin 2.4 g/dL 2.9 g/dL Albumin/Globulin Ratio 0.8 (1.0-2.7) 0.6 (1.0-2.7) Digoxin Level 0.9 NG/ML (0.9-2.0) Arterial Blood pH 7.403 (7.350-7.450) 7.412 (7.350-7.450) Arterial Blood Partial Pressure CO2 29.0 mmHg (35.0-45.0) 27.7 mmHg (35.0-45.0) Arterial Blood Partial Pressure O2 193.8 mmHg (75.0-100.0) 104.3 mmHg (75.0-100.0) Arterial Blood HCO3 17.7 mmol/L (22.0-26.0) 17.2 mmol/L (22.0-26.0) Arterial Blood Oxygen Saturation 98.2 % (95-100) 97.2 % (95-100) Arterial Blood Base Excess -6.1 (-2-2) -6.3 (-2-2) Gallo Test Positive Positive Uric Acid 7.5 MG/DL (2.6-7.2) C-Reactive Protein, Quantitative 17.1 mg/dL (0.00-0.90) Pro-B-Type Natriuretic Peptide > 55709 pg/mL (0-125) Test 11/02/20 11:37 11/03/20 04:10 11/04/20 04:05 Arterial Blood pH 7.392 (7.350-7.450) Arterial Blood Partial Pressure CO2 30.4 mmHg (35.0-45.0) Arterial Blood Partial Pressure O2 103.3 mmHg (75.0-100.0) Arterial Blood HCO3 18.1 mmol/L (22.0-26.0) Arterial Blood Oxygen Saturation 97.1 % (95-100) Arterial Blood Base Excess -6.0 (-2-2) Gallo Test Positive White Blood Count 5.6 K/UL (4.8-10.8) 6.5 K/UL (4.8-10.8) Red Blood Count 3.13 M/UL (4.20-5.40) 3.14 M/UL (4.20-5.40) Hemoglobin 9.2 G/DL (12.0-16.0) 9.2 G/DL (12.0-16.0) Hematocrit 28.1 % (37.0-47.0) 28.4 % (37.0-47.0) Mean Corpuscular Volume 90 FL (80-99) 91 FL (80-99) Mean Corpuscular Hemoglobin 29.4 PG (27.0-31.0) 29.2 PG (27.0-31.0) Mean Corpuscular Hemoglobin Concent 32.8 G/DL (32.0-36.0) 32.3 G/DL (32.0-36.0) Red Cell Distribution Width 18.7 % (11.6-14.8) 18.7 % (11.6-14.8) Platelet Count 153 K/UL (150-450) 164 K/UL (150-450) Mean Platelet Volume 8.5 FL (6.5-10.1) 8.4 FL (6.5-10.1) Neutrophils (%) (Auto) % (45.0-75.0) % (45.0-75.0) Lymphocytes (%) (Auto) % (20.0-45.0) % (20.0-45.0) Monocytes (%) (Auto) % (1.0-10.0) % (1.0-10.0) Eosinophils (%) (Auto) % (0.0-3.0) % (0.0-3.0) Basophils (%) (Auto) % (0.0-2.0) % (0.0-2.0) Differential Total Cells Counted 100 Neutrophils % (Manual) 84 % (45-75) Lymphocytes % (Manual) 7 % (20-45) Monocytes % (Manual) 6 % (1-10) Eosinophils % (Manual) 2 % (0-3) Basophils % (Manual) 0 % (0-2) Band Neutrophils 1 % (0-8) Nucleated Red Blood Cells 1 /100 WBC Platelet Estimate Adequate Platelet Morphology Normal Polychromasia 1+ Hypochromasia 1+ Anisocytosis 1+ Sodium Level 142 MMOL/L (136-145) 141 MMOL/L (136-145) Potassium Level 3.2 MMOL/L (3.5-5.1) 3.4 MMOL/L (3.5-5.1) Chloride Level 108 MMOL/L (98-107) 107 MMOL/L (98-107) Carbon Dioxide Level 21 MMOL/L (21-32) 24 MMOL/L (21-32) Anion Gap 13 mmol/L (5-15) 10 mmol/L (5-15) Blood Urea Nitrogen 51 mg/dL (7-18) 52 mg/dL (7-18) Creatinine 2.4 MG/DL (0.55-1.30) 2.3 MG/DL (0.55-1.30) Estimat Glomerular Filtration Rate 19.3 mL/min (>60) 20.3 mL/min (>60) Glucose Level 124 MG/DL (74-106) 95 MG/DL (74-106) Uric Acid 7.5 MG/DL (2.6-7.2) 7.9 MG/DL (2.6-7.2) Calcium Level 7.9 MG/DL (8.5-10.1) 8.1 MG/DL (8.5-10.1) Phosphorus Level 2.8 MG/DL (2.5-4.9) 2.9 MG/DL (2.5-4.9) Magnesium Level 2.1 MG/DL (1.8-2.4) 1.8 MG/DL (1.8-2.4) Total Bilirubin 0.4 MG/DL (0.2-1.0) 0.4 MG/DL (0.2-1.0) Aspartate Amino Transf (AST/SGOT) 10 U/L (15-37) 13 U/L (15-37) Alanine Aminotransferase (ALT/SGPT) 14 U/L (12-78) 12 U/L (12-78) Alkaline Phosphatase 71 U/L (46-116) 69 U/L (46-116) Total Protein 4.8 G/DL (6.4-8.2) 4.9 G/DL (6.4-8.2) Albumin 1.8 G/DL (3.4-5.0) 1.8 G/DL (3.4-5.0) Globulin 3.0 g/dL 3.1 g/dL Albumin/Globulin Ratio 0.6 (1.0-2.7) 0.6 (1.0-2.7) Thyroid Stimulating Hormone (TSH) 7.618 uiU/mL (0.358-3.740) C-Reactive Protein, Quantitative 17.7 mg/dL (0.00-0.90) Pro-B-Type Natriuretic Peptide > 37513 pg/mL (0-125) Height (Feet): 5 Height (Inches): 0.00 Weight (Pounds): 145 Objective Physical Exam General: Awake and alert, no acute distress HEENT: NC/AT. EOMI. Cardiovascular: Irregularly irregular rhythm. Resp: Normal work of breathing. ++vent Abdomen: Abdomen is soft, nondistended. Nontender Skin: Intact. No abrasions, laceration or rash over the exposed skin MSK: Normal tone and bulk. Moving all extremities. Neuro: Awake and alert. Mentating appropriately. Hawk Ma MD Nov 04, 2020 06:46
--- NOTE | 2020-11-04 07:24 | NUR ---
NURSE HAND-OFF REPORT: Latest Vital Signs: Temperature 98.5 , Pulse 88 , B/P 135 /70 , Respiratory Rate 18 , O2 SAT 98 , Simple Mask, O2 Flow Rate 2.0 . Vital Sign Comment: EKG Rhythm: Atrial Fibrillation Rhythm change?: N MD Notified?: - MD Response: Latest Elizabeth Fall Score: 70 Fall Risk: High Risk Safety Measures: Call light Within Reach, Bed Alarm Zone 1, Side Rails Side Rails x3, Bed position Low and Locked. Fall Precautions: Yellow Socks Patient Fall Education Report given to Angela by SERGIO Hemphill.
--- NOTE | 2020-11-04 07:25 | NUR ---
NURSE NOTES: Received report from Evita Higginbotham RN. Patient in bed resting, no active s/s cardiac, respiratory distress noticed at this time. Patient open eyes spontaneously, track. Patient A. fib with HR 88, ETT 7 23cm on lip line. Vent AC 20 TV 450 PEEP 5 Fio2 30%, O2 sat 99% at this time. Rectal tube draining well to gravity, Green Catheter draining well to gravity, patent, intact. Left subclavian TLC patent, intact. Levophed running @ 12mcg/min. Bed in lowest position, side rails upx3, call light within reach, bed alarm on, Will continue plan of care.
--- NOTE | 2020-11-04 08:15 | NUR ---
RD ASSESSMENT & RECOMMENDATIONS SEE CARE ACTIVITY FOR COMPLETE ASSESSMENT DAILY ESTIMATED NEEDS: Needs based on Critical care / 52.3kg abw 25-30 kcals/kg [id number] total kcals 1.2-2 g protein/kg 63-105 g total protein On lasix, fluid per MD NUTRITION DIAGNOSIS: Swallowing difficulty R/T dysphagia, decreased cognitive fxn as evidenced by ASSISTANT [employer]IA [employer]NER recommends pureed moist texture diet w/ poor PO, now s/p PEG placement on 10/23, on GT feeds-> pt now intubated. CURRENT TF:NEPRO@40 x22 hrs (Pt on Synthroid) ENTERAL NUTRITION RECOMMENDATIONS: Glucerna 1.5 @ goal of 40ml/hr x 22 hrs to provide 880ml, 1320kcal, 66g prot, 640ml free water -> Initiate Glucerna 1.5 @ 10ml/hr x 6hrs -> Advance 10ml q 4-6 hrs as tolerated to goal rate -> HOB over 30 degrees/ H2O flush per MD With elevated potassium maintain current TF of Nepro w/ goal of 40ml/hr x22 hrs to meet est needs. Without hemodynamic stability and if able to keep HOB >30 degrees, rec trophic feeding of 10ml/hr. ADDITIONAL RECOMMENDATIONS: * Calibrated bedscale wt * Monitor hemodynamic stability-> NE now held Rec trophic feeding w/ continued HD instability if HOB >30degrees * Monitor BGs, need for hypoglycemics .
--- NOTE | 2020-11-04 08:35 | Cardiac Electrophysiology PN ---
Assessment/Plan Assessment/Plan 1. NSTEMI with elevated troponin of more than 0.2 and hx of prior NC The level has come down to 0.19, but the levels are flat and likely due to renal failure as the creatinine is 2.1. On aspirin and off Lopressor as hypotensive 2. Atrial fibrillation with rapid ventricular response. Off Lopressor as BP in 70s. On Eliquis 2.5 bid Better on Dig 0.125 PEG daily. Dig level 0.9 3. Respiratory failure on the Vent now. Decrease Lasix to 40 iv bid 4. S/P Septic shock, off Levophed 5. Renal insufficiency. BUN 53 Cr 2.4 6. Status post COVID pneumonia, was tested positive more than two weeks ago. Now is Covid negative 7. Dysphagia, S/P PEG 10/23/[address] DW Dr. Gómez and Chuck Subjective Subjective S/P PEG by Dr. Tobar 10/23/20 In ICU off Levophed on Lasix 40 iv q 8 Covid negative 10/25 and is off isolation On 30% Fio2 and PEEP 5. In atrial fib with controlled rate Alert off restraints. Failed weaning again. May need tracheostomy Objective Last 24 Hour Vital Signs Date Time Temp Pulse Resp B/P (MAP) Pulse Ox O2 Delivery O2 Flow Rate FiO2 11/04/20 07:28 92 24 30 11/04/20 07:00 88 18 135/70 (91) 98 11/04/20 06:00 84 18 140/68 (92) 100 11/04/20 05:00 84 18 143/65 (91) 100 11/04/20 04:00 30 11/04/20 04:00 Endotracheal Tube Endotracheal Tube 11/04/20 04:00 98.5 78 14 139/60 (86) 100 11/04/20 04:00 87 11/04/20 03:25 76 18 30 11/04/20 03:00 83 14 132/114 (120) 100 11/04/20 02:00 85 17 158/79 (105) 100 11/04/20 01:00 84 17 129/59 (82) 100 11/04/20 00:00 Endotracheal Tube Endotracheal Tube 11/04/20 00:00 80 11/04/20 00:00 98.2 81 19 117/103 (108) 100 11/04/20 00:00 30 11/03/20 23:20 76 16 30 11/03/20 23:00 83 18 137/63 (87) 100 11/03/20 22:00 82 17 131/53 (79) 100 11/03/20 21:00 81 14 135/60 (85) 100 11/03/20 20:00 Endotracheal Tube Endotracheal Tube 11/03/20 20:00 83 11/03/20 20:00 98.4 80 16 137/66 (89) 100 11/03/20 20:00 30 11/03/20 19:20 67 19 30 11/03/20 18:57 81 12 100/75 (83) 100 11/03/20 17:59 84 15 124/48 (73) 100 11/03/20 17:00 70 12 136/64 (88) 100 11/03/20 16:00 Endotracheal Tube Endotracheal Tube 11/03/20 16:00 97 11/03/20 16:00 98.3 89 13 153/53 (86) 100 11/03/20 16:00 30 11/03/20 15:36 87 17 30 11/03/20 15:00 81 17 147/91 (109) 100 11/03/20 14:00 80 10 129/60 (83) 100 11/03/20 13:00 68 12 145/78 (100) 100 11/03/20 12:00 30 11/03/20 12:00 Endotracheal Tube Endotracheal Tube 11/03/20 12:00 86 11/03/20 12:00 98.0 85 11 141/60 (87) 100 11/03/20 11:29 74 13 30 11/03/20 11:00 77 12 143/65 (91) 100 11/03/20 10:00 69 20 150/65 (93) 100 11/03/20 09:00 73 22 143/54 (83) 100 11/03/20 09:00 73 Intake and Output 11/03/20 11/04/20 19:00 07:00 Intake Total 640 ml 510 ml Output Total 2050 ml 1700 ml Balance -1410 ml -1190 ml Free Water 100 ml 150 ml IV Total 100 ml Tube Feeding 440 ml 360 ml Output Urine Total 1850 ml 1700 ml Stool Total 200 ml # Bowel Movements 100 Laboratory Tests Test 11/04/20 04:05 White Blood Count 6.5 K/UL (4.8-10.8) Red Blood Count 3.14 M/UL (4.20-5.40) L Hemoglobin 9.2 G/DL (12.0-16.0) L Hematocrit 28.4 % (37.0-47.0) L Mean Corpuscular Volume 91 FL (80-99) Mean Corpuscular Hemoglobin 29.2 PG (27.0-31.0) Mean Corpuscular Hemoglobin Concent 32.3 G/DL (32.0-36.0) Red Cell Distribution Width 18.7 % (11.6-14.8) H Platelet Count 164 K/UL (150-450) Mean Platelet Volume 8.4 FL (6.5-10.1) Neutrophils (%) (Auto) % (45.0-75.0) Lymphocytes (%) (Auto) % (20.0-45.0) Monocytes (%) (Auto) % (1.0-10.0) Eosinophils (%) (Auto) % (0.0-3.0) Basophils (%) (Auto) % (0.0-2.0) Neutrophils % (Manual) Pending Lymphocytes % (Manual) Pending Platelet Estimate Pending Platelet Morphology Pending Sodium Level 141 MMOL/L (136-145) Potassium Level 3.4 MMOL/L (3.5-5.1) L Chloride Level 107 MMOL/L (98-107) Carbon Dioxide Level 24 MMOL/L (21-32) Anion Gap 10 mmol/L (5-15) Blood Urea Nitrogen 52 mg/dL (7-18) H Creatinine 2.3 MG/DL (0.55-1.30) H Estimat Glomerular Filtration Rate 20.3 mL/min (>60) Glucose Level 95 MG/DL (74-106) Uric Acid 7.9 MG/DL (2.6-7.2) H Calcium Level 8.1 MG/DL (8.5-10.1) L Phosphorus Level 2.9 MG/DL (2.5-4.9) Magnesium Level 1.8 MG/DL (1.8-2.4) Total Bilirubin 0.4 MG/DL (0.2-1.0) Aspartate Amino Transf (AST/SGOT) 13 U/L (15-37) L Alanine Aminotransferase (ALT/SGPT) 12 U/L (12-78) Alkaline Phosphatase 69 U/L (46-116) C-Reactive Protein, Quantitative 17.7 mg/dL (0.00-0.90) H Pro-B-Type Natriuretic Peptide > 50501 pg/mL (0-125) H Total Protein 4.9 G/DL (6.4-8.2) L Albumin 1.8 G/DL (3.4-5.0) L Globulin 3.1 g/dL Albumin/Globulin Ratio 0.6 (1.0-2.7) L Objective HEAD AND NECK: No JVD. On BIPAP LUNGS: Decreased breath sounds. CARDIOVASCULAR: Irregular S1 and S2 with no gallop. ABDOMEN: Soft.S/P PEG EXTREMITIES: No pitting edema. Terry Reyes MD Nov 04, 2020 08:35
[2020-11-04] MEDS ORDERED: Norepinephrine 4mg/NS Premix 250 ML IV PRN (08:37)
[2020-11-04] MEDS: Eliquis 2.5mg tablet ORAL SCH ×2 (09:00→18:00)
[2020-11-04] MEDS: Pantoprazole Inj IVP SCH ×2 (09:01→20:40)
[2020-11-04] MEDS: Digoxin 0.125mg tab GT SCH (09:01)
--- NOTE | 2020-11-04 10:04 | General Progress Note ---
Subjective ROS Limited/Unobtainable: No Allergies: Coded Allergies: No Known Allergies (Unverified , 10/17/20) Subjective intubated now Objective Last 24 Hour Vital Signs Date Time Temp Pulse Resp B/P (MAP) Pulse Ox O2 Delivery O2 Flow Rate FiO2 11/04/20 09:14 92 13 30 11/04/20 09:01 83 11/04/20 08:00 Endotracheal Tube Endotracheal Tube 11/04/20 08:00 30 11/04/20 08:00 97.9 87 14 136/94 (108) 97 11/04/20 07:32 89 11/04/20 07:28 92 24 30 11/04/20 07:00 88 18 135/70 (91) 98 11/04/20 06:00 84 18 140/68 (92) 100 11/04/20 05:00 84 18 143/65 (91) 100 11/04/20 04:00 30 11/04/20 04:00 Endotracheal Tube Endotracheal Tube 11/04/20 04:00 98.5 78 14 139/60 (86) 100 11/04/20 04:00 87 11/04/20 03:25 76 18 30 11/04/20 03:00 83 14 132/114 (120) 100 11/04/20 02:00 85 17 158/79 (105) 100 11/04/20 01:00 84 17 129/59 (82) 100 11/04/20 00:00 Endotracheal Tube Endotracheal Tube 11/04/20 00:00 80 11/04/20 00:00 98.2 81 19 117/103 (108) 100 11/04/20 00:00 30 11/03/20 23:20 76 16 30 11/03/20 23:00 83 18 137/63 (87) 100 11/03/20 22:00 82 17 131/53 (79) 100 11/03/20 21:00 81 14 135/60 (85) 100 11/03/20 20:00 Endotracheal Tube Endotracheal Tube 11/03/20 20:00 83 11/03/20 20:00 98.4 80 16 137/66 (89) 100 11/03/20 20:00 30 11/03/20 19:20 67 19 30 11/03/20 18:57 81 12 100/75 (83) 100 11/03/20 17:59 84 15 124/48 (73) 100 11/03/20 17:00 70 12 136/64 (88) 100 11/03/20 16:00 Endotracheal Tube Endotracheal Tube 11/03/20 16:00 97 11/03/20 16:00 98.3 89 13 153/53 (86) 100 11/03/20 16:00 30 11/03/20 15:36 87 17 30 11/03/20 15:00 81 17 147/91 (109) 100 11/03/20 14:00 80 10 129/60 (83) 100 11/03/20 13:00 68 12 145/78 (100) 100 11/03/20 12:00 30 11/03/20 12:00 Endotracheal Tube Endotracheal Tube 11/03/20 12:00 86 11/03/20 12:00 98.0 85 11 141/60 (87) 100 11/03/20 11:29 74 13 30 11/03/20 11:00 77 12 143/65 (91) 100 Intake and Output 11/03/20 11/04/20 19:00 07:00 Intake Total 640 ml 510 ml Output Total 2050 ml 1700 ml Balance -1410 ml -1190 ml Free Water 100 ml 150 ml IV Total 100 ml Tube Feeding 440 ml 360 ml Output Urine Total 1850 ml 1700 ml Stool Total 200 ml # Bowel Movements 100 Laboratory Tests 11/04/20 04:05: White Blood Count 6.5, Red Blood Count 3.14L, Hemoglobin 9.2L, Hematocrit 28.4L, Mean Corpuscular Volume 91, Mean Corpuscular Hemoglobin 29.2, Mean Corpuscular Hemoglobin Concent 32.3, Red Cell Distribution Width 18.7H, Platelet Count 164, Mean Platelet Volume 8.4, Neutrophils (%) (Auto) , Lymphocytes (%) (Auto) , Monocytes (%) (Auto) , Eosinophils (%) (Auto) , Basophils (%) (Auto) , Differential Total Cells Counted 100, Neutrophils % (Manual) 78H, Lymphocytes % (Manual) 15L, Monocytes % (Manual) 3, Eosinophils % (Manual) 1, Basophils % (Ma nual) 0, Band Neutrophils 3, Platelet Estimate Adequate, Platelet Morphology Normal, Hypochromasia 1+, Anisocytosis 1+, Sodium Level 141, Potassium Level 3.4L, Chloride Level 107, Carbon Dioxide Level 24, Anion Gap 10, Blood Urea Nitrogen 52H, Creatinine 2.3H, Estimat Glomerular Filtration Rate 20.3, Glucose Level 95, Uric Acid 7.9H, Calcium Level 8.1L, Phosphorus Level 2.9, Magnesium Level 1.8, Total Bilirubin 0.4, Aspartate Amino Transf (AST/SGOT) 13L, Alanine Aminotransferase (ALT/SGPT) 12, Alkaline Phosphatase 69, C-Reactive Protein, Quantitative 17.7H, Pro-B-Type Natriuretic Peptide > 52167O, Total Protein 4.9L, Albumin 1.8L, Globulin 3.1, Albumin/Globulin Ratio 0.6L Height (Feet): 5 Height (Inches): 0.00 Weight (Pounds): 145 General Appearance: no apparent distress EENT: normal ENT inspection Neck: supple Cardiovascular: normal rate Respiratory/Chest: decreased breath sounds Abdomen: normal bowel sounds, non tender, soft Extremities: non-tender Assessment/Plan Problem List: (1) Hypothyroidism ICD Codes: E03.9 - Hypothyroidism, unspecified SNOMED: 47978905 (2) Pneumonia due to COVID-19 virus ICD Codes: U07.1 - COVID-19; J12.82 - Pneumonia due to coronavirus disease 2019 SNOMED: 722270632925023935 (3) Malnutrition ICD Codes: E46 - Unspecified protein-calorie malnutrition SNOMED: 80154189 (4) Decubitus skin ulcer ICD Codes: L89.90 - Pressure ulcer of unspecified site, unspecified stage SNOMED: 282451259 (5) Elevated troponin ICD Codes: R77.8 - Other specified abnormalities of plasma proteins SNOMED: 877786721, 977755439, 794327753 (6) Atrial fibrillation ICD Codes: I48.91 - Unspecified atrial fibrillation SNOMED: 55702445 (7) Anemia ICD Codes: D64.9 - Anemia, unspecified SNOMED: 675519300 Status: progressing Assessment/Plan: GTF fu cardiology fu pulm labs for AM intubated now Skyler Tobar MD Nov 04, 2020 10:04
--- NOTE | 2020-11-04 10:43 | NUR ---
NURSE NOTES: DARREN Lara at bedside. Weaning determination order obtained. Will continue plan of care.
[2020-11-04] MEDS ORDERED: Acetaminophen 650mg/20.3ml GT PRN (10:45)
[2020-11-04] MEDS: Acetaminophen 650mg/20.3ml GT PRN ×2 (10:57→18:20)
--- NOTE | 2020-11-04 11:43 | Infectious Diseases Prog Note ---
Assessment/Plan Assessment/Plan IMPRESSION: Pneumonia with gram negative Hypercapnic respiratory failure Recent history of COVID disease, Acute renal failure, Aortic stenosis Atrial fibrillation, hypothyroidism, Anemia. Chronic DVT of R leg Hypotension Gastrostomy status Respiratory acidosis Left pleural effusion RECOMMENDATION: Start on Meropenem Will f/u sputum culture Subjective ROS Limited/Unobtainable: Yes Respiratory: Reports: other - failed weaning Neurologic: Reports: other - on restraint Allergies: Coded Allergies: No Known Allergies (Unverified , 10/17/20) Objective Last 24 Hour Vital Signs Date Time Temp Pulse Resp B/P (MAP) Pulse Ox O2 Delivery O2 Flow Rate FiO2 11/04/20 11:08 100 11/04/20 11:03 107 25 30 11/04/20 11:00 92 20 145/65 (91) 97 11/04/20 10:00 91 13 152/87 (108) 96 11/04/20 09:30 94 22 140/74 (96) 99 11/04/20 09:14 92 13 30 11/04/20 09:01 83 11/04/20 09:00 86 15 128/75 (92) 99 11/04/20 08:00 Endotracheal Tube Endotracheal Tube 11/04/20 08:00 30 11/04/20 08:00 97.9 87 14 136/94 (108) 97 11/04/20 07:32 89 11/04/20 07:28 92 24 30 11/04/20 07:00 88 18 135/70 (91) 98 11/04/20 06:00 84 18 140/68 (92) 100 11/04/20 05:00 84 18 143/65 (91) 100 11/04/20 04:00 30 11/04/20 04:00 Endotracheal Tube Endotracheal Tube 11/04/20 04:00 98.5 78 14 139/60 (86) 100 11/04/20 04:00 87 11/04/20 03:25 76 18 30 11/04/20 03:00 83 14 132/114 (120) 100 11/04/20 02:00 85 17 158/79 (105) 100 11/04/20 01:00 84 17 129/59 (82) 100 11/04/20 00:00 Endotracheal Tube Endotracheal Tube 11/04/20 00:00 80 11/04/20 00:00 98.2 81 19 117/103 (108) 100 11/04/20 00:00 30 11/03/20 23:20 76 16 30 11/03/20 23:00 83 18 137/63 (87) 100 11/03/20 22:00 82 17 131/53 (79) 100 11/03/20 21:00 81 14 135/60 (85) 100 11/03/20 20:00 Endotracheal Tube Endotracheal Tube 11/03/20 20:00 83 11/03/20 20:00 98.4 80 16 137/66 (89) 100 11/03/20 20:00 30 11/03/20 19:20 67 19 30 11/03/20 18:57 81 12 100/75 (83) 100 11/03/20 17:59 84 15 124/48 (73) 100 11/03/20 17:00 70 12 136/64 (88) 100 11/03/20 16:00 Endotracheal Tube Endotracheal Tube 11/03/20 16:00 97 11/03/20 16:00 98.3 89 13 153/53 (86) 100 11/03/20 16:00 30 11/03/20 15:36 87 17 30 11/03/20 15:00 81 17 147/91 (109) 100 11/03/20 14:00 80 10 129/60 (83) 100 11/03/20 13:00 68 12 145/78 (100) 100 11/03/20 12:00 30 11/03/20 12:00 Endotracheal Tube Endotracheal Tube 11/03/20 12:00 86 11/03/20 12:00 98.0 85 11 141/60 (87) 100 Height (Feet): 5 Height (Inches): 0.00 Weight (Pounds): 145 HEENT: other - orally intubated Respiratory/Chest: decreased breath sounds, other - on ventilator Cardiovascular: tachycardia, other - Left subclavian line Abdomen: soft, non tender, other - GT feeding Extremities: other - Generalized edema Neurologic/Psychiatric: other - opes eyes Microbiology Date/Time Source Procedure Growth Status 11/03/20 06:00 Sputum Expectorated Gram Stain - Final Resulted 11/03/20 06:00 Sputum Culture - Preliminary Gram Negative Bacillus 1 Resulted Laboratory Tests Test 11/04/20 04:05 White Blood Count 6.5 K/UL (4.8-10.8) Red Blood Count 3.14 M/UL (4.20-5.40) L Hemoglobin 9.2 G/DL (12.0-16.0) L Hematocrit 28.4 % (37.0-47.0) L Mean Corpuscular Volume 91 FL (80-99) Mean Corpuscular Hemoglobin 29.2 PG (27.0-31.0) Mean Corpuscular Hemoglobin Concent 32.3 G/DL (32.0-36.0) Red Cell Distribution Width 18.7 % (11.6-14.8) H Platelet Count 164 K/UL (150-450) Mean Platelet Volume 8.4 FL (6.5-10.1) Neutrophils (%) (Auto) % (45.0-75.0) Lymphocytes (%) (Auto) % (20.0-45.0) Monocytes (%) (Auto) % (1.0-10.0) Eosinophils (%) (Auto) % (0.0-3.0) Basophils (%) (Auto) % (0.0-2.0) Differential Total Cells Counted 100 Neutrophils % (Manual) 78 % (45-75) H Lymphocytes % (Manual) 15 % (20-45) L Monocytes % (Manual) 3 % (1-10) Eosinophils % (Manual) 1 % (0-3) Basophils % (Manual) 0 % (0-2) Band Neutrophils 3 % (0-8) Platelet Estimate Adequate Platelet Morphology Normal Hypochromasia 1+ Anisocytosis 1+ Sodium Level 141 MMOL/L (136-145) Potassium Level 3.4 MMOL/L (3.5-5.1) L Chloride Level 107 MMOL/L (98-107) Carbon Dioxide Level 24 MMOL/L (21-32) Anion Gap 10 mmol/L (5-15) Blood Urea Nitrogen 52 mg/dL (7-18) H Creatinine 2.3 MG/DL (0.55-1.30) H Estimat Glomerular Filtration Rate 20.3 mL/min (>60) Glucose Level 95 MG/DL (74-106) Uric Acid 7.9 MG/DL (2.6-7.2) H Calcium Level 8.1 MG/DL (8.5-10.1) L Phosphorus Level 2.9 MG/DL (2.5-4.9) Magnesium Level 1.8 MG/DL (1.8-2.4) Total Bilirubin 0.4 MG/DL (0.2-1.0) Aspartate Amino Transf (AST/SGOT) 13 U/L (15-37) L Alanine Aminotransferase (ALT/SGPT) 12 U/L (12-78) Alkaline Phosphatase 69 U/L (46-116) C-Reactive Protein, Quantitative 17.7 mg/dL (0.00-0.90) H Pro-B-Type Natriuretic Peptide > 60443 pg/mL (0-125) H Total Protein 4.9 G/DL (6.4-8.2) L Albumin 1.8 G/DL (3.4-5.0) L Globulin 3.1 g/dL Albumin/Globulin Ratio 0.6 (1.0-2.7) L Current Medications Medications (Trade) Dose Ordered Sig/Yolanda Route PRN Reason Start Time Stop Time Status Last Admin Dose Admin Acetaminophen (Tylenol) 650 mg Q4H PRN ORAL Pain Scale (6-10) 10/17/20 19:15 11/16/20 19:14 Acetaminophen (Tylenol) 650 mg Q6H PRN GT Mild Pain (Pain Scale 1-3) 11/04/20 10:45 12/04/20 10:44 11/04/20 10:57 Acetaminophen (Tylenol) 650 mg Q6H PRN GT Temp >100.5 11/04/20 10:45 12/04/20 10:44 Apixaban (Eliquis) 2.5 mg BID ORAL 10/24/20 18:00 01/22/21 17:59 11/03/20 18:03 Chlorhexidine Gluconate (Eve-Hex 2%) 1 applic DAILY@1999 TOPIC 10/22/20 20:00 01/20/21 19:59 11/03/20 21:04 Digoxin (Lanoxin) 0.125 mg DAILY GT 10/30/20 09:00 01/28/21 08:59 11/04/20 09:01 Furosemide (Lasix) 40 mg EVERY 12 HOURS IV 11/04/20 09:00 12/04/20 08:59 Levothyroxine Sodium (Synthroid) 50 mcg DAILY@0630 ORAL 10/19/20 06:30 11/18/20 06:29 11/04/20 05:43 Norepinephrine Bitartrate 250 ml @ 0 mls/hr Q24H PRN IV For hypotension 11/04/20 08:37 11/07/20 08:36 Ondansetron HCl (Zofran) 4 mg Q6H PRN IVP Nausea & Vomiting 10/17/20 21:15 11/16/20 21:14 Pantoprazole (Protonix) 40 mg Q12HR IVP 11/02/20 21:00 11/25/20 20:59 11/04/20 09:01 Potassium Chloride (K-Dur) 20 meq ONCE GT 11/04/20 10:03 11/04/20 12:00 11/04/20 10:14 Potassium Chloride (K-Dur) 40 meq EVERY 12 HOURS GT 11/04/20 21:00 02/02/21 20:59 Luis Alvarado MD Nov 04, 2020 11:43
--- NOTE | 2020-11-04 12:33 | Pulmonology Progress Note ---
Subjective ROS Limited/Unobtainable: Yes Interval Events: Intubated 10/31/20 Constitutional: Denies: fever HEENT: Repors: no symptoms Respiratory: Reports: no symptoms Cardiovascular: Reports: no symptoms Gastrointestinal/Abdominal: Reports: diarrhea Psychiatric: Reports: other - s/p PEG Allergies: Coded Allergies: No Known Allergies (Unverified , 10/17/20) All Systems: reviewed and negative except above Objective Last 24 Hour Vital Signs Date Time Temp Pulse Resp B/P (MAP) Pulse Ox O2 Delivery O2 Flow Rate FiO2 11/04/20 12:00 93 11/04/20 12:00 30 11/04/20 12:00 97.5 92 11 129/66 (87) 96 11/04/20 12:00 Endotracheal Tube Endotracheal Tube 11/04/20 11:08 100 11/04/20 11:03 107 25 30 11/04/20 11:00 92 20 145/65 (91) 97 11/04/20 10:00 91 13 152/87 (108) 96 11/04/20 09:30 94 22 140/74 (96) 99 11/04/20 09:14 92 13 30 11/04/20 09:01 83 11/04/20 09:00 86 15 128/75 (92) 99 11/04/20 08:00 Endotracheal Tube Endotracheal Tube 11/04/20 08:00 30 11/04/20 08:00 97.9 87 14 136/94 (108) 97 11/04/20 07:32 89 11/04/20 07:28 92 24 30 11/04/20 07:00 88 18 135/70 (91) 98 11/04/20 06:00 84 18 140/68 (92) 100 11/04/20 05:00 84 18 143/65 (91) 100 11/04/20 04:00 30 11/04/20 04:00 Endotracheal Tube Endotracheal Tube 11/04/20 04:00 98.5 78 14 139/60 (86) 100 11/04/20 04:00 87 11/04/20 03:25 76 18 30 11/04/20 03:00 83 14 132/114 (120) 100 11/04/20 02:00 85 17 158/79 (105) 100 11/04/20 01:00 84 17 129/59 (82) 100 11/04/20 00:00 Endotracheal Tube Endotracheal Tube 11/04/20 00:00 80 11/04/20 00:00 98.2 81 19 117/103 (108) 100 11/04/20 00:00 30 11/03/20 23:20 76 16 30 11/03/20 23:00 83 18 137/63 (87) 100 11/03/20 22:00 82 17 131/53 (79) 100 11/03/20 21:00 81 14 135/60 (85) 100 11/03/20 20:00 Endotracheal Tube Endotracheal Tube 11/03/20 20:00 83 11/03/20 20:00 98.4 80 16 137/66 (89) 100 11/03/20 20:00 30 11/03/20 19:20 67 19 30 11/03/20 18:57 81 12 100/75 (83) 100 11/03/20 17:59 84 15 124/48 (73) 100 11/03/20 17:00 70 12 136/64 (88) 100 11/03/20 16:00 Endotracheal Tube Endotracheal Tube 11/03/20 16:00 97 11/03/20 16:00 98.3 89 13 153/53 (86) 100 11/03/20 16:00 30 11/03/20 15:36 87 17 30 11/03/20 15:00 81 17 147/91 (109) 100 11/03/20 14:00 80 10 129/60 (83) 100 11/03/20 13:00 68 12 145/78 (100) 100 Intake and Output 11/03/20 11/04/20 19:00 07:00 Intake Total 640 ml 510 ml Output Total 2050 ml 1700 ml Balance -1410 ml -1190 ml Free Water 100 ml 150 ml IV Total 100 ml Tube Feeding 440 ml 360 ml Output Urine Total 1850 ml 1700 ml Stool Total 200 ml # Bowel Movements 100 General Appearance: no acute distress HEENT: atraumatic Respiratory: lungs clear Cardiovascular: normal rate, regular rhythm Abdomen: soft, non tender, other - s/p PEG Microbiology Date/Time Source Procedure Growth Status 11/03/20 06:00 Sputum Expectorated Gram Stain - Final Resulted 11/03/20 06:00 Sputum Culture - Preliminary Gram Negative Bacillus 1 Resulted Laboratory Tests 11/04/20 04:05: White Blood Count 6.5, Red Blood Count 3.14L, Hemoglobin 9.2L, Hematocrit 28.4L, Mean Corpuscular Volume 91, Mean Corpuscular Hemoglobin 29.2, Mean Corpuscular Hemoglobin Concent 32.3, Red Cell Distribution Width 18.7H, Platelet Count 164, Mean Platelet Volume 8.4, Neutrophils (%) (Auto) , Lymphocytes (%) (Auto) , Monocytes (%) (Auto) , Eosinophils (%) (Auto) , Basophils (%) (Auto) , Differential Total Cells Counted 100, Neutrophils % (Manual) 78H, Lymphocytes % (Manual) 15L, Monocytes % (Manual) 3, Eosinophils % (Manual) 1, Basophils % (Manual) 0, Band Neutrophils 3, Platelet Estimate Adequate, Platelet Morphology Normal, Hypochromasia 1+, Anisocytosis 1+, Sodium Level 141, Potassium Level 3.4L, Chloride Level 107, Carbon Dioxide Level 24, Anion Gap 10, Blood Urea Nitrogen 52H, Creatinine 2.3H, Estimat Glomerular Filtration Rate 20.3, Glucose Level 95, Uric Acid 7.9H, Calcium Level 8.1L, Phosphorus Level 2.9, Magnesium Level 1.8, Total Bilirubin 0.4, Aspartate Amino Transf (AST/SGOT) 13L, Alanine Aminotransferase (ALT/SGPT) 12, Alkaline Phosphatase 69, C-Reactive Protein, Quantitative 17.7H, Pro-B-Type Natriuretic Peptide > 66576U, Total Protein 4.9L, Albumin 1.8L, Globulin 3.1, Albumin/Globulin Ratio 0.6L Current Medications Medications (Trade) Dose Ordered Sig/Yolanda Route PRN Reason Start Time Stop Time Status Last Admin Dose Admin Acetaminophen (Tylenol) 650 mg Q4H PRN ORAL Pain Scale (6-10) 10/17/20 19:15 11/16/20 19:14 Acetaminophen (Tylenol) 650 mg Q6H PRN GT Mild Pain (Pain Scale 1-3) 11/04/20 10:45 12/04/20 10:44 11/04/20 10:57 Acetaminophen (Tylenol) 650 mg Q6H PRN GT Temp >100.5 11/04/20 10:45 12/04/20 10:44 Apixaban (Eliquis) 2.5 mg BID ORAL 10/24/20 18:00 01/22/21 17:59 11/03/20 18:03 Chlorhexidine Gluconate (Eve-Hex 2%) 1 applic DAILY@1999 TOPIC 10/22/20 20:00 01/20/21 19:59 11/03/20 21:04 Digoxin (Lanoxin) 0.125 mg DAILY GT 10/30/20 09:00 01/28/21 08:59 11/04/20 09:01 Furosemide (Lasix) 40 mg EVERY 12 HOURS IV 11/04/20 09:00 12/04/20 08:59 Levothyroxine Sodium (Synthroid) 50 mcg DAILY@0630 ORAL 10/19/20 06:30 11/18/20 06:29 11/04/20 05:43 Meropenem 500 mg/ Sodium Chloride 55 ml @ 110 mls/hr EVERY 12 HOURS IVPB 11/04/20 13:00 11/09/20 12:59 Norepinephrine Bitartrate 250 ml @ 0 mls/hr Q24H PRN IV For hypotension 11/04/20 08:37 11/07/20 08:36 Ondansetron HCl (Zofran) 4 mg Q6H PRN IVP Nausea & Vomiting 10/17/20 21:15 11/16/20 21:14 Pantoprazole (Protonix) 40 mg Q12HR IVP 11/02/20 21:00 11/25/20 20:59 11/04/20 09:01 Potassium Chloride (K-Dur) 40 meq EVERY 12 HOURS GT 11/04/20 21:00 02/02/21 20:59 Assessment/Plan Assessment/Plan 1. CHF. 2. CAD/previous non-STEMI. 3. custodial resident. 4. Bradycardia. 5. Atrial fibrillation. -Started on Eliquis 6. Renal insufficiency. -Nephro following 7. Troponin leak. - Cardio following 8. COVID-19 pneumonia, without fever or leukocytosis - Now intubated - ABG improved - Sp Cx (11/03) Gram negative bacillus -> now on meropenem per ID 9. Hypoxemia 10. 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 UTI, cheryl 12. Dysphagia -s/p PEG (10/23) 13. Hypotension; improved - s/p NS bolus - pressors as needed - will continue diureses 14. Respiratory failure, s/p vent - 40-> 30% FiO2, PEEP 5 -> continue weaning trial The care of this patient was discussed with my supervising physician Time spent for this encounter was approximately 31 minutes Tl Pedro Nov 04, 2020 12:33
[2020-11-04] MEDS: Meropenem 500 MG in NS 55 ML IVPB SCH ×2 (13:08→20:40)
--- NOTE | 2020-11-04 13:45 | Nephrology Progress Note ---
Assessment/Plan Problem List: (1) Acute kidney injury (2) Anemia (3) Hyperkalemia (4) Elevated troponin (5) Pneumonia due to COVID-19 virus (6) Hypothyroidism Assessment Plan November 04: Full code. Intubated. Labs reviewed. Low potassium addressed. Serum creatinine stable 2.3. Continue per consultants. Weaning as possible. November 03: Remains full code. Remains intubated. FiO2 30%. Discussed with RN. Low potassium addressed. Patient remains on Lasix. Continue to monitor renal parameters. Serum creatinine slightly rising. November 02: Patient remains intubated on ventilator. FiO2 30%. Labs reviewed. Low potassium addressed. Medication list reviewed. Patient on Lasix 40 mg every 8 hours. Serum creatinine higher to 2.3. Feeding changed to Nepro. Potassium supplement given. Continue to monitor renal parameters. November 01: Seen in ICU. Now intubated on ventilator. Discussed with RN. Labs results noted. Abnormal electrolytes addressed. Discussed with RN. Continue per consultants. October 31: Patient seen in ICU. Discussed with SERGIO Miller. ABG noted. Patient acidotic. Being transfused. Potassium is being replaced. Due for another ABG and possible intubation if needed. Conferred with pulmonary and cardiology. October 30: Labs reviewed. Potassium elevated. Kayexalate ordered. Continue to monitor hemoglobin hematocrit and renal parameters. Serum creatinine 2.1. Remains on BiPAP. October 29: Seen in ICU. Discussed with SERGIO Wilkerson. Hemoglobin low. Transfuse 1 unit of packed RBCs. Potassium supplements IV given. Midodrine discontinued. Serum creatinine 2.2 stable. Patient remains on BiPAP. Continue per consultants. Continue to monitor hemoglobin hematocrit electrolytes and renal parameters. October 28: Seen in ICU. Remains on BiPAP. Low potassium and low magnesium addressed. Serum creatinine plateaued at 2.2. Continue per current treatment plan. October 27: Patient in ICU. On BiPAP. Serum creatinine rising. Blood pressure more stable. Will give 100 mg Lasix IV push with the hope of reversing oliguria. Medication list reviewed. Continue to monitor renal parameters. October 26: Seen in ICU. On pressors for low blood pressure. Serum creatinine 2.1. Albumin bolus given. Stress dose of steroids initiated. Continue to monitor renal parameters. Continue per consultants. October 25: Patient seen and examined. Trendelenburg. Blood pressure low. Tachycardic. Discussed with RN. Patient to be transferred to ICU. Discussed with ICU charge nurse and hospital charge nurse. Meanwhile patient started on Albumin bolus and 100 cc an hour D5 normal saline. Patient to be started on pressors while in ICU. Patient full code. October 24: No CHEM panel drawn today.. Renal parameters stable. Patient had a GT placed yesterday. Will check labs tomorrow. Medication list reviewed. October 23: Labs reviewed. Renal parameters unchanged. Creatinine 1.9. Continue current management. Medication list reviewed. October 22: Labs reviewed. Serum creatinine lower at 1.8. Patient started on clear liquid. Patient refuses p.o. medications and food at times. Continue per consultants. October 21: Labs reviewed. Serum creatinine unchanged. Continue per consultants. Continue to monitor renal parameters. October 20: Today's labs reviewed. Serum creatinine unchanged. RN reports patient not taking any p.o. meds. Continue per consultants. Serum creatinine appears to be baseline. October 19: Today's labs still not done yet. RN informed. Albumin bolus given again. Continue to monitor electrolytes and renal parameters. Per orders October 18: Patient hypotensive. Due for blood transfusion. Will give albumin bolus. Continue to monitor renal parameters and electrolytes. Labs and me dication list reviewed Subjective ROS Limited/Unobtainable: Yes Objective Objective Last 24 Hour Vital Signs Date Time Temp Pulse Resp B/P (MAP) Pulse Ox O2 Delivery O2 Flow Rate FiO2 11/04/20 13:00 78 18 30 11/04/20 13:00 91 18 148/74 (98) 98 11/04/20 12:00 93 11/04/20 12:00 30 11/04/20 12:00 97.5 92 13 129/66 (87) 96 11/04/20 12:00 Endotracheal Tube Endotracheal Tube 11/04/20 11:08 100 11/04/20 11:03 107 25 30 11/04/20 11:00 92 20 145/65 (91) 97 11/04/20 10:00 91 13 152/87 (108) 96 11/04/20 09:30 94 22 140/74 (96) 99 11/04/20 09:14 92 13 30 11/04/20 09:01 83 11/04/20 09:00 86 15 128/75 (92) 99 11/04/20 08:00 Endotracheal Tube Endotracheal Tube 11/04/20 08:00 30 11/04/20 08:00 97.9 87 14 136/94 (108) 97 11/04/20 07:32 89 11/04/20 07:28 92 24 30 11/04/20 07:00 88 18 135/70 (91) 98 11/04/20 06:00 84 18 140/68 (92) 100 11/04/20 05:00 84 18 143/65 (91) 100 11/04/20 04:00 30 11/04/20 04:00 Endotracheal Tube Endotracheal Tube 11/04/20 04:00 98.5 78 14 139/60 (86) 100 11/04/20 04:00 87 11/04/20 03:25 76 18 30 11/04/20 03:00 83 14 132/114 (120) 100 11/04/20 02:00 85 17 158/79 (105) 100 11/04/20 01:00 84 17 129/59 (82) 100 11/04/20 00:00 Endotracheal Tube Endotracheal Tube 11/04/20 00:00 80 11/04/20 00:00 98.2 81 19 117/103 (108) 100 11/04/20 00:00 30 11/03/20 23:20 76 16 30 11/03/20 23:00 83 18 137/63 (87) 100 11/03/20 22:00 82 17 131/53 (79) 100 11/03/20 21:00 81 14 135/60 (85) 100 11/03/20 20:00 Endotracheal Tube Endotracheal Tube 11/03/20 20:00 83 11/03/20 20:00 98.4 80 16 137/66 (89) 100 11/03/20 20:00 30 11/03/20 19:20 67 19 30 11/03/20 18:57 81 12 100/75 (83) 100 11/03/20 17:59 84 15 124/48 (73) 100 11/03/20 17:00 70 12 136/64 (88) 100 11/03/20 16:00 Endotracheal Tube Endotracheal Tube 11/03/20 16:00 97 11/03/20 16:00 98.3 89 13 153/53 (86) 100 11/03/20 16:00 30 11/03/20 15:36 87 17 30 11/03/20 15:00 81 17 147/91 (109) 100 11/03/20 14:00 80 10 129/60 (83) 100 Intake and Output 11/03/20 11/04/20 19:00 07:00 Intake Total 640 ml 510 ml Output Total 2050 ml 1700 ml Balance -1410 ml -1190 ml Free Water 100 ml 150 ml IV Total 100 ml Tube Feeding 440 ml 360 ml Output Urine Total 1850 ml 1700 ml Stool Total 200 ml # Bowel Movements 100 Current Medications Medications (Trade) Dose Ordered Sig/Yolanda Route PRN Reason Start Time Stop Time Status Last Admin Dose Admin Acetaminophen (Tylenol) 650 mg Q4H PRN ORAL Pain Scale (6-10) 10/17/20 19:15 11/16/20 19:14 Acetaminophen (Tylenol) 650 mg Q6H PRN GT Mild Pain (Pain Scale 1-3) 11/04/20 10:45 12/04/20 10:44 11/04/20 10:57 Acetaminophen (Tylenol) 650 mg Q6H PRN GT Temp >100.5 11/04/20 10:45 12/04/20 10:44 Apixaban (Eliquis) 2.5 mg BID ORAL 10/24/20 18:00 01/22/21 17:59 11/03/20 18:03 Chlorhexidine Gluconate (Eve-Hex 2%) 1 applic DAILY@2000 TOPIC 10/22/20 20:00 01/20/21 19:59 11/03/20 21:04 Digoxin (Lanoxin) 0.125 mg DAILY GT 10/30/20 09:00 01/28/21 08:59 11/04/20 09:01 Furosemide (Lasix) 40 mg EVERY 12 HOURS IV 11/04/20 09:00 12/04/20 08:59 Levothyroxine Sodium (Synthroid) 50 mcg DAILY@0630 ORAL 10/19/20 06:30 11/18/20 06:29 11/04/20 05:43 Meropenem 500 mg/ Sodium Chloride 55 ml @ 110 mls/hr EVERY 12 HOURS IVPB 11/04/20 13:00 11/09/20 12:59 11/04/20 13:08 Norepinephrine Bitartrate 250 ml @ 0 mls/hr Q24H PRN IV For hypotension 11/04/20 08:37 11/07/20 08:36 Ondansetron HCl (Zofran) 4 mg Q6H PRN IVP Nausea & Vomiting 10/17/20 21:15 11/16/20 21:14 Pantoprazole (Protonix) 40 mg Q12HR IVP 11/02/20 21:00 11/25/20 20:59 11/04/20 09:01 Potassium Chloride (K-Dur) 40 meq EVERY 12 HOURS GT 11/04/20 21:00 02/02/21 20:59 Laboratory Tests 11/04/20 04:05: White Blood Count 6.5, Red Blood Count 3.14L, Hemoglobin 9.2L, Hematocrit 28.4L, Mean Corpuscular Volume 91, Mean Corpuscular Hemoglobin 29.2, Mean Corpuscular Hemoglobin Concent 32.3, Red Cell Distribution Width 18.7H, Platelet Count 164, Mean Platelet Volume 8.4, Neutrophils (%) (Auto) , Lymphocytes (%) (Auto) , Monocytes (%) (Auto) , Eosinophils (%) (Auto) , Basophils (%) (Auto) , Differential Total Cells Counted 100, Neutrophils % (Manual) 78H, Lymphocytes % (Manual) 15L, Monocytes % (Manual) 3, Eosinophils % (Manual) 1, Basophils % (Manual) 0, Band Neutrophils 3, Platelet Estimate Adequate, Platelet Morphology Normal, Hypochromasia 1+, Anisocytosis 1+, Sodium Level 141, Potassium Level 3.4L, Chloride Level 107, Carbon Dioxide Level 24, Anion Gap 10, Blood Urea Nitrogen 52H, Creatinine 2.3H, Estimat Glomerular Filtration Rate 20.3, Glucose Level 95, Uric Acid 7.9H, Calcium Level 8.1L, Phosphorus Level 2.9, Magnesium Level 1.8, Total Bilirubin 0.4, Aspartate Amino Transf (AST/SGOT) 13L, Alanine Aminotransferase (ALT/SGPT) 12, Alkaline Phosphatase 69, C-Reactive Protein, Quantitative 17.7H, Pro-B-Type Natriuretic Peptide > 28090R, Total Protein 4.9L, Albumin 1.8L, Globulin 3.1, Albumin/Globulin Ratio 0.6L Height (Feet): 5 Height (Inches): 0.00 Weight (Pounds): 145 General Appearance: no apparent distress EENT: other - Intubated on ventilator Cardiovascular: tachycardia Respiratory/Chest: decreased breath sounds Abdomen: distended Dustin Gómez MD Nov 04, 2020 13:45
--- NOTE | 2020-11-04 14:26 | Surgery Progress Note ---
Surgery Progress Note Subjective Procedure Performed left subclavian central venous catheter insertion Additional Comments stable ill appearing on support wenaning Objective Last 24 Hour Vital Signs Date Time Temp Pulse Resp B/P (MAP) Pulse Ox O2 Delivery O2 Flow Rate FiO2 11/04/20 14:00 99 23 125/65 (85) 98 11/04/20 13:00 78 18 30 11/04/20 13:00 91 18 148/74 (98) 98 11/04/20 12:00 93 11/04/20 12:00 30 11/04/20 12:00 97.5 92 13 129/66 (87) 96 11/04/20 12:00 Endotracheal Tube Endotracheal Tube 11/04/20 11:08 100 11/04/20 11:03 107 25 30 11/04/20 11:00 92 20 145/65 (91) 97 11/04/20 10:00 91 13 152/87 (108) 96 11/04/20 09:30 94 22 140/74 (96) 99 11/04/20 09:14 92 13 30 11/04/20 09:01 83 11/04/20 09:00 86 15 128/75 (92) 99 11/04/20 08:00 Endotracheal Tube Endotracheal Tube 11/04/20 08:00 30 11/04/20 08:00 97.9 87 14 136/94 (108) 97 11/04/20 07:32 89 11/04/20 07:28 92 24 30 11/04/20 07:00 88 18 135/70 (91) 98 11/04/20 06:00 84 18 140/68 (92) 100 11/04/20 05:00 84 18 143/65 (91) 100 11/04/20 04:00 30 11/04/20 04:00 Endotracheal Tube Endotracheal Tube 11/04/20 04:00 98.5 78 14 139/60 (86) 100 11/04/20 04:00 87 11/04/20 03:25 76 18 30 11/04/20 03:00 83 14 132/114 (120) 100 11/04/20 02:00 85 17 158/79 (105) 100 11/04/20 01:00 84 17 129/59 (82) 100 11/04/20 00:00 Endotracheal Tube Endotracheal Tube 11/04/20 00:00 80 11/04/20 00:00 98.2 81 19 117/103 (108) 100 11/04/20 00:00 30 11/03/20 23:20 76 16 30 11/03/20 23:00 83 18 137/63 (87) 100 11/03/20 22:00 82 17 131/53 (79) 100 11/03/20 21:00 81 14 135/60 (85) 100 11/03/20 20:00 Endotracheal Tube Endotracheal Tube 11/03/20 20:00 83 11/03/20 20:00 98.4 80 16 137/66 (89) 100 11/03/20 20:00 30 11/03/20 19:20 67 19 30 11/03/20 18:57 81 12 100/75 (83) 100 11/03/20 17:59 84 15 124/48 (73) 100 11/03/20 17:00 70 12 136/64 (88) 100 11/03/20 16:00 Endotracheal Tube Endotracheal Tube 11/03/20 16:00 97 11/03/20 16:00 98.3 89 13 153/53 (86) 100 11/03/20 16:00 30 11/03/20 15:36 87 17 30 11/03/20 15:00 81 17 147/91 (109) 100 I&O Intake and Output 11/03/20 11/04/20 19:00 07:00 Intake Total 640 ml 510 ml Output Total 2050 ml 1700 ml Balance -1410 ml -1190 ml Free Water 100 ml 150 ml IV Total 100 ml Tube Feeding 440 ml 360 ml Output Urine Total 1850 ml 1700 ml Stool Total 200 ml # Bowel Movements 100 Dressing: saturated Cardiovascular: RSR Respiratory: decreased breath sounds, other Abdomen: soft, non-tender, present bowel sounds Extremities: edema, no tenderness, no cyanosis Laboratory Tests Test 11/04/20 04:05 White Blood Count 6.5 K/UL (4.8-10.8) Red Blood Count 3.14 M/UL (4.20-5.40) L Hemoglobin 9.2 G/DL (12.0-16.0) L Hematocrit 28.4 % (37.0-47.0) L Mean Corpuscular Volume 91 FL (80-99) Mean Corpuscular Hemoglobin 29.2 PG (27.0-31.0) Mean Corpuscular Hemoglobin Concent 32.3 G/DL (32.0-36.0) Red Cell Distribution Width 18.7 % (11.6-14.8) H Platelet Count 164 K/UL (150-450) Mean Platelet Volume 8.4 FL (6.5-10.1) Neutrophils (%) (Auto) % (45.0-75.0) Lymphocytes (%) (Auto) % (20.0-45.0) Monocytes (%) (Auto) % (1.0-10.0) Eosinophils (%) (Auto) % (0.0-3.0) Basophils (%) (Auto) % (0.0-2.0) Differential Total Cells Counted 100 Neutrophils % (Manual) 78 % (45-75) H Lymphocytes % (Manual) 15 % (20-45) L Monocytes % (Manual) 3 % (1-10) Eosinophils % (Manual) 1 % (0-3) Basophils % (Manual) 0 % (0-2) Band Neutrophils 3 % (0-8) Platelet Estimate Adequate Platelet Morphology Normal Hypochromasia 1+ Anisocytosis 1+ Sodium Level 141 MMOL/L (136-145) Potassium Level 3.4 MMOL/L (3.5-5.1) L Chloride Level 107 MMOL/L (98-107) Carbon Dioxide Level 24 MMOL/L (21-32) Anion Gap 10 mmol/L (5-15) Blood Urea Nitrogen 52 mg/dL (7-18) H Creatinine 2.3 MG/DL (0.55-1.30) H Estimat Glomerular Filtration Rate 20.3 mL/min (>60) Glucose Level 95 MG/DL (74-106) Uric Acid 7.9 MG/DL (2.6-7.2) H Calcium Level 8.1 MG/DL (8.5-10.1) L Phosphorus Level 2.9 MG/DL (2.5-4.9) Magnesium Level 1.8 MG/DL (1.8-2.4) Total Bilirubin 0.4 MG/DL (0.2-1.0) Aspartate Amino Transf (AST/SGOT) 13 U/L (15-37) L Alanine Aminotransferase (ALT/SGPT) 12 U/L (12-78) Alkaline Phosphatase 69 U/L (46-116) C-Reactive Protein, Quantitative 17.7 mg/dL (0.00-0.90) H Pro-B-Type Natriuretic Peptide > 34491 pg/mL (0-125) H Total Protein 4.9 G/DL (6.4-8.2) L Albumin 1.8 G/DL (3.4-5.0) L Globulin 3.1 g/dL Albumin/Globulin Ratio 0.6 (1.0-2.7) L Plan Problems: (1) Anemia (2) Acute kidney injury (3) Atrial fibrillation (4) Hyperkalemia (5) Elevated troponin (6) Decubitus skin ulcer Assessment & Plan: Pt presented on admission with Multiple Medical Comorbidities including Covid-19 and Pressure Injuries. Primary Nurse reported Pt has been declining food and medications. Sacral DTPI that is evolving noted to Sacrum(L)6cm x (W)12.5cm.. Scattered Purpuric areas that are indurated noted to R and L cheek. Small wound that is 100% slough (L)0.6cm x (W)0.7cm noted at sacrococcygeal area within base of DTPI . MASD noted to Perineum and skin folds of Medial/posterior aspects of Both upper thighs. Affected areas are erythematous and macerated with scattered satellite lesions. DTPI L Heel (L)3cm x (W)4cm, Base of heel is maroon and fluctuant with small purpuric area (L)0.4cm x (W)0.9cm within base of DTPI. l Foot including toes are mottled and cool to touch. L Heel is boggy. L Heel including toes are Mottled and cool to touch. Tx.Plan: Apply Moisture Barrier Paste to Sacrum. Cover with Optifoam drsg.Change every 3 days and prn. Apply Moisture Barrier Paste to abdominal folds, Perineum and skin folds of both upper thighs. Apply Cavilon Skin Barrier to both heels. Cover each Heel with Optifoam drsg. Change every 7 days and prn. Reposition at least every 2hours or as tolerated. Off-load heels with pillow. (7) Malnutrition Assessment & Plan: She was able to self feed on right hand and took a bite of popsicle and tolerated without s.s of aspiration. After 1st bite, then she refused 2nd bite. After this was done, I offered her a cup of cranberry juice, she took few sips and tolerated without s.s of aspiration. I continued to offer but she refused further PO. A: 1. Functional swallow 2. Failure to thrive 3. abnormal electrolytes in setting of heart failure, NSTEMI, elevated BNP, etc.. P/Rec. 1. Pureed and thin liquid 2.3. Goal of care discussion DAILY ESTIMATED NEEDS: Needs based on Cardiac, pulmonary/ 51kg abw 25-30 kcals/kg 7212-1416 total kcals 1-1.5 g protein/kg 51-76 g total protein 20-25 mL/kg 6666-8089 total fluid mLs NUTRITION DIAGNOSIS: Swallowing difficulty R/T dysphagia, decreased cognitive fxn as evidenced by ATTRACTIONS ASSOCIATE recommends pureed moist texture diet at this time. CURRENT DIET:NPO PO DIET RECOMMENDATIONS: Liberalized REGULAR w/ poor PO (texture per ATTRACTIONS ASSOCIATE) ADDITIONAL RECOMMENDATIONS: * Calibrated bedscale wt * Monitor PO intake: refusing meds and foods at this time -> rec nonoral feeds w/ continued refusal of PO if part of POC * LOW NA diet w/ PO intake consistently >50% * 4 oz Ensure TID w/ meals (4oz at this time due to poor acceptance, may increase to 8oz w/ good acceptance) (8) Pneumonia due to COVID-19 virus Assessment & Plan: here appears to be increased left pleural fluid and generalized hazy parenchymal opacity, left greater than right. Heart remains enlarged Impression: Increased left pleural effusion Suspect increasing bilateral left greater than right pulmonary edema versus infiltrates worsening intubated on vent (9) Hypothyroidism Jim Orosco Nov 04, 2020 14:26
--- NOTE | 2020-11-04 19:20 | NUR ---
NURSE HAND-OFF REPORT: Latest Vital Signs: Temperature 98.2 , Pulse 91 , B/P 139 /72 , Respiratory Rate 20 , O2 SAT 100 ,vent dependent, fiO2 30%. EKG Rhythm: Atrial Fibrillation Rhythm change?: N Latest Elizabeth Fall Score: 70 Fall Risk: High Risk Safety Measures: Call light Within Reach, Bed Alarm Zone 1, Side Rails Side Rails x3, Bed position Low and Locked. Fall Precautions: Yellow Socks Patient Fall Education Report given to Nikki Bruno RN.
--- NOTE | 2020-11-04 19:20 | NUR ---
NURSE NOTES: RN received report from day RN. patient in bed awake and alert. Patient om mechanical ventilator via ETT tube. Rn paged MD for sedation. Vitals stable at this time. RN will continue to monitor.
--- NOTE | 2020-11-04 20:01 | General Progress Note ---
Subjective ROS Limited/Unobtainable: Yes Allergies: Coded Allergies: No Known Allergies (Unverified , 10/17/20) Objective Last 24 Hour Vital Signs Date Time Temp Pulse Resp B/P (MAP) Pulse Ox O2 Delivery O2 Flow Rate FiO2 11/04/20 19:19 101 21 30 11/04/20 19:00 91 20 139/72 (94) 100 11/04/20 18:00 99 20 138/73 (94) 100 11/04/20 17:00 93 19 132/101 (111) 100 11/04/20 16:37 93 18 30 11/04/20 16:00 Endotracheal Tube Endotracheal Tube 11/04/20 16:00 98.2 95 20 163/88 (113) 100 11/04/20 16:00 30 11/04/20 15:13 102 11/04/20 15:00 90 21 145/72 (96) 100 11/04/20 14:58 99 18 30 11/04/20 14:00 99 23 125/65 (85) 98 11/04/20 13:00 78 18 30 11/04/20 13:00 91 18 148/74 (98) 98 11/04/20 12:00 93 11/04/20 12:00 30 11/04/20 12:00 97.5 92 13 129/66 (87) 96 11/04/20 12:00 Endotracheal Tube Endotracheal Tube 11/04/20 11:08 100 11/04/20 11:03 107 25 30 11/04/20 11:00 92 20 145/65 (91) 97 11/04/20 10:00 91 13 152/87 (108) 96 11/04/20 09:30 94 22 140/74 (96) 99 11/04/20 09:14 92 13 30 11/04/20 09:01 83 11/04/20 09:00 86 15 128/75 (92) 99 11/04/20 08:00 Endotracheal Tube Endotracheal Tube 11/04/20 08:00 30 11/04/20 08:00 97.9 87 14 136/94 (108) 97 11/04/20 07:32 89 11/04/20 07:28 92 24 30 11/04/20 07:00 88 18 135/70 (91) 98 11/04/20 06:00 84 18 140/68 (92) 100 11/04/20 05:00 84 18 143/65 (91) 100 11/04/20 04:00 30 11/04/20 04:00 Endotracheal Tube Endotracheal Tube 11/04/20 04:00 98.5 78 14 139/60 (86) 100 11/04/20 04:00 87 11/04/20 03:25 76 18 30 11/04/20 03:00 83 14 132/114 (120) 100 11/04/20 02:00 85 17 158/79 (105) 100 11/04/20 01:00 84 17 129/59 (82) 100 11/04/20 00:00 Endotracheal Tube Endotracheal Tube 11/04/20 00:00 80 11/04/20 00:00 98.2 81 19 117/103 (108) 100 11/04/20 00:00 30 11/03/20 23:20 76 16 30 11/03/20 23:00 83 18 137/63 (87) 100 11/03/20 22:00 82 17 131/53 (79) 100 11/03/20 21:00 81 14 135/60 (85) 100 Intake and Output 11/03/20 11/04/20 19:00 07:00 Intake Total 640 ml 510 ml Output Total 2050 ml 1700 ml Balance -1410 ml -1190 ml Free Water 100 ml 150 ml IV Total 100 ml Tube Feeding 440 ml 360 ml Output Urine Total 1850 ml 1700 ml Stool Total 200 ml # Bowel Movements 100 Laboratory Tests 11/04/20 04:05: White Blood Count 6.5, Red Blood Count 3.14L, Hemoglobin 9.2L, Hematocrit 28.4L, Mean Corpuscular Volume 91, Mean Corpuscular Hemoglobin 29.2, Mean Corpuscular Hemoglobin Concent 32.3, Red Cell Distribution Width 18.7H, Platelet Count 164, Mean Platelet Volume 8.4, Neutrophils (%) (Auto) , Lymphocytes (%) (Auto) , Monocytes (%) (Auto) , Eosinophils (%) (Auto) , Basophils (%) (Auto) , Differential Total Cells Counted 100, Neutrophils % (Manual) 78H, Lymphocytes % (Manual) 15L, Monocytes % (Manual) 3, Eosinophils % (Manual) 1, Basophils % (Manual) 0, Band Neutrophils 3, Platelet Estimate Adequate, Platelet Morphology Normal, Hypochromasia 1+, Anisocytosis 1+, Sodium Level 141, Potassium Level 3.4L, Chloride Level 107, Carbon Dioxide Level 24, Anion Gap 10, Blood Urea Nitrogen 52H, Creatinine 2.3H, Estimat Glomerular Filtration Rate 20.3, Glucose Level 95, Uric Acid 7.9H, Calcium Level 8.1L, Phosphorus Level 2.9, Magnesium Level 1.8, Total Bilirubin 0.4, Aspartate Amino Transf (AST/SGOT) 13L, Alanine Aminotransferase (ALT/SGPT) 12, Alkaline Phosphatase 69, C-Reactive Protein, Quantitative 17.7H, Pro-B-Type Natriuretic Peptide > 73373D, Total Protein 4.9L, Albumin 1.8L, Globulin 3.1, Albumin/Globulin Ratio 0.6L Height (Feet): 5 Height (Inches): 0.00 Weight (Pounds): 145 Assessment/Plan Problem List: (1) Anemia ICD Codes: D64.9 - Anemia, unspecified SNOMED: 515051309 (2) Acute kidney injury ICD Codes: N17.9 - Acute kidney failure, unspecified SNOMED: 24144316, 6460320 (3) Atrial fibrillation ICD Codes: I48.91 - Unspecified atrial fibrillation SNOMED: 24366775 (4) Elevated troponin ICD Codes: R77.8 - Other specified abnormalities of plasma proteins SNOMED: 892593927, 222829247, 216116123 (5) Malnutrition ICD Codes: E46 - Unspecified protein-calorie malnutrition SNOMED: 58735834 (6) Pneumonia due to COVID-19 virus ICD Codes: U07.1 - COVID-19; J12.82 - Pneumonia due to coronavirus disease 2019 SNOMED: 847928677056963542 (7) Hypothyroidism ICD Codes: E03.9 - Hypothyroidism, unspecified SNOMED: 55977607 Status: progressing Assessment/Plan: chf on lasix low k intubated resp failure poor prognosis check trop malnutrition reviewed chart and lab arrythmia Neri Nails MD Nov 04, 2020 20:00
[2020-11-04] MEDS: Dyna-Hex 2% Top Sol 2oz TOPIC SCH (20:18)
[2020-11-04] MEDS: Haloperidol Lactate 5 MG in D5W 55 ML IVPB PRN (21:42)
--- NOTE | 2020-11-04 21:59 | NUR ---
NURSE NOTES: Patient vitals stable at this time. Patient needs met. patient repositioned for comfort. Haldol given for agitation. RN will continue to monitor.
[2020-11-05] VITALS (34 sets, daily range): BP systolic 71–144; BP diastolic 16–86
--- NOTE | 2020-11-05 00:15 | NUR ---
NURSE NOTES: patient vitalst stable. Patient resting quietly after does of HALDOl. Patine t denies needs and pain. RN will continue to monitor.
--- NOTE | 2020-11-05 02:15 | NUR ---
NURSE NOTES: patient vitals stable. Patient repositioned. Oral complete. RN will continue to monitor.
--- NOTE | 2020-11-05 04:30 | NUR ---
Patient resting. Patient denies pain. Repositioned to comfort. RN will continue to monitor
[2020-11-05 05:26] LABS: HEMATOCRIT 26.5 % (37.0-47.0); HEMOGLOBIN 8.7 G/DL (12.0-16.0); MEAN CORPUSCULAR VOLUME 91 FL (80-99); PLATELET COUNT 157 K/UL (150-450); RED BLOOD COUNT 2.91 M/UL (4.20-5.40); RED CELL DISTRIBUTION WIDTH 18.7 % (11.6-14.8); WHITE BLOOD COUNT 5.4 K/UL (4.8-10.8)
[2020-11-05 05:48] LABS: ALANINE AMINOTRANSFERASE 7 U/L (12-78); ALBUMIN 1.7 G/DL (3.4-5.0); ALBUMIN/GLOBULIN RATIO 0.6 (1.0-2.7); ALKALINE PHOSPHATASE 68 U/L (46-116); ANION GAP 10 mmol/L (5-15); ASPARTATE AMINO TRANSFERASE 10 U/L (15-37); BILIRUBIN,TOTAL 0.4 MG/DL (0.2-1.0); BLOOD UREA NITROGEN 51 mg/dL (7-18); CARBON DIOXIDE 25 MMOL/L (21-32); CHLORIDE 109 MMOL/L (98-107); CREATININE 2.2 MG/DL (0.55-1.30); PHOSPHORUS 2.7 MG/DL (2.5-4.9); POTASSIUM 3.7 MMOL/L (3.5-5.1); SODIUM 144 MMOL/L (136-145)
--- NOTE | 2020-11-05 06:11 | Hematology/Onc Progress Note ---
Assessment/Plan Assessment/Plan Assessment and recs # Anemia r/o gi bleed --> anemia panel has been ordered-->reviewed --> hgb 8.1->9.3->9.7-->9.5-->10.5-->10.2-->9.1->8.6-->7.8-->8.1-->9.2-->8.7 --> no hemolysis is noted --> transfuse on prn basis --> 1 unit prbc 10/30 # Thrombocytopenia likely due to reactive process --> plt 138-->149-->176-->162 --> imaging prn --> smear has been reviewed --> viral w/u neg # Hypercoag disorder with Atrial fibrillation --> consider anticoag as per cards --> if bleeding, consider hold anticoag # Elevated trop --> per cards # Hyperkalemia --> per renal # Acute kidney injury --> per renal # Resp failure on bipap # Recently COVID-19 positive # Dvt ppx scds --> lovenox sq Appreciate consultation and rosio eugene Subjective Allergies: Coded Allergies: No Known Allergies (Unverified , 10/17/20) All Systems: reviewed and negative except above Subjective 10/19 cbc is pending, did get blood transfusion last night, pending results 10/20 meds noted, no bleeding, labs reviewed, rosio rn, no new changes 10/21 on 4l nc, has been refusing labs, meds noted, no bleeding 10/22 nc, refusing meds labs reviewed, rosio rn 10/23 is potentially for egd this am, no bleeding, cbc is noted 10/25 meds noted, no bleeidng, is on nc, no night sweats, bp bolus pending 10/26 bed bath done, meds noted, no bleeding, cbc reviewed from am 10/27 lethargic, on bipap, levophed, meds reviewed 10/28 icu, lethargic, remains on bipap, pressors 10/29 icu, lethargic, meds noted, on bipap, labs noted 10/30 icu, bipap, to get 1 unit prbc, meds reviewed, labs noted 10/31 icu, on vent, no bipap 11/01: remains in icu, no bleeding reported 11/02 icu, lethargic, on vent, with gt feeds on hold, labs noted 11/03 icu, intubated on vent, lethargic, labs reviewed, meds noted 11/04 icu, remains intuabted is on vent, lethargic, labs reviewed 11/05 icu, nv, on vent, lethargic, labs noted Objective Objective Current Medications Medications (Trade) Dose Ordered Sig/Yolanda Route PRN Reason Start Time Stop Time Status Last Admin Dose Admin Acetaminophen (Tylenol) 650 mg Q4H PRN ORAL Pain Scale (6-10) 10/17/20 19:15 11/16/20 19:14 Acetaminophen (Tylenol) 650 mg Q6H PRN GT Mild Pain (Pain Scale 1-3) 11/04/20 10:45 12/04/20 10:44 11/04/20 18:20 Acetaminophen (Tylenol) 650 mg Q6H PRN GT Temp >100.5 11/04/20 10:45 12/04/20 10:44 Apixaban (Eliquis) 2.5 mg BID ORAL 10/24/20 18:00 01/22/21 17:59 11/03/20 18:03 Chlorhexidine Gluconate (Eve-Hex 2%) 1 applic DAILY@2000 TOPIC 10/22/20 20:00 01/20/21 19:59 11/04/20 20:18 Digoxin (Lanoxin) 0.125 mg DAILY GT 10/30/20 09:00 01/28/21 08:59 11/04/20 09:01 Furosemide (Lasix) 40 mg EVERY 12 HOURS IV 11/04/20 09:00 12/04/20 08:59 11/04/20 20:40 Haloperidol Lactate 5 mg/ Dextrose 56 ml @ 224 mls/hr Q6H PRN IVPB Agitation 11/04/20 20:30 12/19/20 20:29 11/04/20 21:42 Levothyroxine Sodium (Synthroid) 50 mcg DAILY@0630 ORAL 10/19/20 06:30 11/18/20 06:29 11/05/20 05:59 Meropenem 500 mg/ Sodium Chloride 55 ml @ 110 mls/hr EVERY 12 HOURS IVPB 11/04/20 13:00 11/09/20 12:59 11/04/20 20:40 Norepinephrine Bitartrate 250 ml @ 0 mls/hr Q24H PRN IV For hypotension 11/04/20 08:37 11/07/20 08:36 Ondansetron HCl (Zofran) 4 mg Q6H PRN IVP Nausea & Vomiting 10/17/20 21:15 11/16/20 21:14 Pantoprazole (Protonix) 40 mg Q12HR IVP 11/02/20 21:00 11/25/20 20:59 11/04/20 20:40 Potassium Chloride (K-Dur) 40 meq EVERY 12 HOURS GT 11/04/20 21:00 02/02/21 20:59 11/04/20 20:39 Last 24 Hour Vital Signs Date Time Temp Pulse Resp B/P (MAP) Pulse Ox O2 Delivery O2 Flow Rate FiO2 11/05/20 06:00 79 15 140/63 (88) 100 11/05/20 05:30 83 17 143/69 (93) 100 11/05/20 05:00 81 17 143/81 (101) 100 11/05/20 04:30 77 17 131/63 (85) 100 11/05/20 04:13 Endotracheal Tube Endotracheal Tube 11/05/20 04:00 30 11/05/20 04:00 72 15 98/65 (76) 100 11/05/20 04:00 66 11/05/20 03:30 71 15 107/48 (67) 100 11/05/20 03:19 87 13 30 11/05/20 03:00 67 14 91/49 (63) 100 11/05/20 02:30 67 15 105/47 (66) 100 11/05/20 02:00 71 13 113/58 (76) 100 11/05/20 01:30 65 13 92/46 (61) 100 11/05/20 01:00 74 13 101/43 (62) 100 11/05/20 00:30 73 14 95/44 (61) 100 11/05/20 00:00 96 11/05/20 00:00 Endotracheal Tube Endotracheal Tube 11/05/20 00:00 73 14 99/40 (59) 100 11/05/20 00:00 30 11/04/20 23:30 75 15 91/39 (56) 100 11/04/20 23:14 85 14 30 11/04/20 23:00 81 15 112/47 (68) 100 11/04/20 22:30 75 14 97/58 (71) 99 11/04/20 22:00 85 15 99/44 (62) 100 11/04/20 22:00 85 15 99/44 (62) 100 11/04/20 21:30 95 19 157/79 (105) 100 11/04/20 21:00 95 20 100 11/04/20 20:30 97 20 103/71 (82) 100 11/04/20 20:00 87 11/04/20 20:00 30 11/04/20 20:00 Endotracheal Tube Endotracheal Tube 11/04/20 20:00 91 18 138/111 (120) 100 11/04/20 19:30 94 18 161/67 (98) 100 11/04/20 19:19 101 21 30 11/04/20 19:00 91 20 139/72 (94) 100 11/04/20 18:00 99 20 138/73 (94) 100 11/04/20 17:00 93 19 132/101 (111) 100 11/04/20 16:37 93 18 30 11/04/20 16:00 Endotracheal Tube Endotracheal Tube 11/04/20 16:00 98.2 95 20 163/88 (113) 100 11/04/20 16:00 30 11/04/20 15:13 102 11/04/20 15:00 90 21 145/72 (96) 100 11/04/20 14:58 99 18 30 11/04/20 14:00 99 23 125/65 (85) 98 11/04/20 13:00 78 18 30 11/04/20 13:00 91 18 148/74 (98) 98 11/04/20 12:00 93 11/04/20 12:00 30 11/04/20 12:00 97.5 92 13 129/66 (87) 96 11/04/20 12:00 Endotracheal Tube Endotracheal Tube 11/04/20 11:08 100 11/04/20 11:03 107 25 30 11/04/20 11:00 92 20 145/65 (91) 97 11/04/20 10:00 91 13 152/87 (108) 96 11/04/20 09:30 94 22 140/74 (96) 99 11/04/20 09:14 92 13 30 11/04/20 09:01 83 11/04/20 09:00 86 15 128/75 (92) 99 11/04/20 08:00 Endotracheal Tube Endotracheal Tube 11/04/20 08:00 30 11/04/20 08:00 97.9 87 14 136/94 (108) 97 11/04/20 07:32 89 11/04/20 07:28 92 24 30 11/04/20 07:00 88 18 135/70 (91) 98 11/04/20 06:00 84 18 140/68 (92) 100 11/04/20 05:00 84 18 143/65 (91) 100 11/04/20 04:00 30 11/04/20 04:00 Endotracheal Tube Endotracheal Tube 11/04/20 04:00 98.5 78 14 139/60 (86) 100 11/04/20 04:00 87 11/04/20 03:25 76 18 30 11/04/20 03:00 83 14 132/114 (120) 100 11/04/20 02:00 85 17 158/79 (105) 100 11/04/20 01:00 84 17 129/59 (82) 100 11/04/20 00:00 Endotracheal Tube Endotracheal Tube 11/04/20 00:00 80 11/04/20 00:00 98.2 81 19 117/103 (108) 100 11/04/20 00:00 30 11/03/20 23:20 76 16 30 11/03/20 23:00 83 18 137/63 (87) 100 11/03/20 22:00 82 17 131/53 (79) 100 11/03/20 21:00 81 14 135/60 (85) 100 11/03/20 20:00 Endotracheal Tube Endotracheal Tube 11/03/20 20:00 83 11/03/20 20:00 98.4 80 16 137/66 (89) 100 11/03/20 20:00 30 11/03/20 19:20 67 19 30 11/03/20 18:57 81 12 100/75 (83) 100 11/03/20 17:59 84 15 124/48 (73) 100 11/03/20 17:00 70 12 136/64 (88) 100 11/03/20 16:00 Endotracheal Tube Endotracheal Tube 11/03/20 16:00 97 11/03/20 16:00 98.3 89 13 153/53 (86) 100 11/03/20 16:00 30 11/03/20 15:36 87 17 30 11/03/20 15:00 81 17 147/91 (109) 100 11/03/20 14:00 80 10 129/60 (83) 100 11/03/20 13:00 68 12 145/78 (100) 100 11/03/20 12:00 30 11/03/20 12:00 Endotracheal Tube Endotracheal Tube 11/03/20 12:00 86 11/03/20 12:00 98.0 85 11 141/60 (87) 100 11/03/20 11:29 74 13 30 11/03/20 11:00 77 12 143/65 (91) 100 11/03/20 10:00 69 20 150/65 (93) 100 11/03/20 09:00 73 22 143/54 (83) 100 11/03/20 09:00 73 11/03/20 08:00 69 11/03/20 08:00 30 11/03/20 08:00 Endotracheal Tube Endotracheal Tube 11/03/20 08:00 97.6 81 20 133/60 (84) 100 11/03/20 07:57 71 17 30 11/03/20 07:00 75 0 142/64 (90) 100 Intake and Output 11/04/20 11/05/20 19:00 07:00 Intake Total 495 ml 440 ml Output Total 1170 ml 1175 ml Balance -675 ml -735 ml IV Total 55 ml Tube Feeding 440 ml 440 ml Output Urine Total 1070 ml 1175 ml Stool Total 100 ml # Bowel Movements 2 Labs Test 11/02/20 09:12 11/02/20 11:37 11/03/20 04:10 11/04/20 04:05 Arterial Blood pH 7.412 (7.350-7.450) 7.392 (7.350-7.450) Arterial Blood Partial Pressure CO2 27.7 mmHg (35.0-45.0) 30.4 mmHg (35.0-45.0) Arterial Blood Partial Pressure O2 104.3 mmHg (75.0-100.0) 103.3 mmHg (75.0-100.0) Arterial Blood HCO3 17.2 mmol/L (22.0-26.0) 18.1 mmol/L (22.0-26.0) Arterial Blood Oxygen Saturation 97.2 % (95-100) 97.1 % (95-100) Arterial Blood Base Excess -6.3 (-2-2) -6.0 (-2-2) Gallo Test Positive Positive White Blood Count 5.6 K/UL (4.8-10.8) 6.5 K/UL (4.8-10.8) Red Blood Count 3.13 M/UL (4.20-5.40) 3.14 M/UL (4.20-5.40) Hemoglobin 9.2 G/DL (12.0-16.0) 9.2 G/DL (12.0-16.0) Hematocrit 28.1 % (37.0-47.0) 28.4 % (37.0-47.0) Mean Corpuscular Volume 90 FL (80-99) 91 FL (80-99) Mean Corpuscular Hemoglobin 29.4 PG (27.0-31.0) 29.2 PG (27.0-31.0) Mean Corpuscular Hemoglobin Concent 32.8 G/DL (32.0-36.0) 32.3 G/DL (32.0-36.0) Red Cell Distribution Width 18.7 % (11.6-14.8) 18.7 % (11.6-14.8) Platelet Count 153 K/UL (150-450) 164 K/UL (150-450) Mean Platelet Volume 8.5 FL (6.5-10.1) 8.4 FL (6.5-10.1) Neutrophils (%) (Auto) % (45.0-75.0) % (45.0-75.0) Lymphocytes (%) (Auto) % (20.0-45.0) % (20.0-45.0) Monocytes (%) (Auto) % (1.0-10.0) % (1.0-10.0) Eosinophils (%) (Auto) % (0.0-3.0) % (0.0-3.0) Basophils (%) (Auto) % (0.0-2.0) % (0.0-2.0) Differential Total Cells Counted 100 100 Neutrophils % (Manual) 84 % (45-75) 78 % (45-75) Lymphocytes % (Manual) 7 % (20-45) 15 % (20-45) Monocytes % (Manual) 6 % (1-10) 3 % (1-10) Eosinophils % (Manual) 2 % (0-3) 1 % (0-3) Basophils % (Manual) 0 % (0-2) 0 % (0-2) Band Neutrophils 1 % (0-8) 3 % (0-8) Nucleated Red Blood Cells 1 /100 WBC Platelet Estimate Adequate Adequate Platelet Morphology Normal Normal Polychromasia 1+ Hypochromasia 1+ 1+ Anisocytosis 1+ 1+ Sodium Level 142 MMOL/L (136-145) 141 MMOL/L (136-145) Potassium Level 3.2 MMOL/L (3.5-5.1) 3.4 MMOL/L (3.5-5.1) Chloride Level 108 MMOL/L (98-107) 107 MMOL/L (98-107) Carbon Dioxide Level 21 MMOL/L (21-32) 24 MMOL/L (21-32) Anion Gap 13 mmol/L (5-15) 10 mmol/L (5-15) Blood Urea Nitrogen 51 mg/dL (7-18) 52 mg/dL (7-18) Creatinine 2.4 MG/DL (0.55-1.30) 2.3 MG/DL (0.55-1.30) Estimat Glomerular Filtration Rate 19.3 mL/min (>60) 20.3 mL/min (>60) Glucose Level 124 MG/DL (74-106) 95 MG/DL (74-106) Uric Acid 7.5 MG/DL (2.6-7.2) 7.9 MG/DL (2.6-7.2) Calcium Level 7.9 MG/DL (8.5-10.1) 8.1 MG/DL (8.5-10.1) Phosphorus Level 2.8 MG/DL (2.5-4.9) 2.9 MG/DL (2.5-4.9) Magnesium Level 2.1 MG/DL (1.8-2.4) 1.8 MG/DL (1.8-2.4) Total Bilirubin 0.4 MG/DL (0.2-1.0) 0.4 MG/DL (0.2-1.0) Aspartate Amino Transf (AST/SGOT) 10 U/L (15-37) 13 U/L (15-37) Alanine Aminotransferase (ALT/SGPT) 14 U/L (12-78) 12 U/L (12-78) Alkaline Phosphatase 71 U/L (46-116) 69 U/L (46-116) Total Protein 4.8 G/DL (6.4-8.2) 4.9 G/DL (6.4-8.2) Albumin 1.8 G/DL (3.4-5.0) 1.8 G/DL (3.4-5.0) Globulin 3.0 g/dL 3.1 g/dL Albumin/Globulin Ratio 0.6 (1.0-2.7) 0.6 (1.0-2.7) Thyroid Stimulating Hormone (TSH) 7.618 uiU/mL (0.358-3.740) C-Reactive Protein, Quantitative 17.7 mg/dL (0.00-0.90) Pro-B-Type Natriuretic Peptide > 32334 pg/mL (0-125) Test 11/05/20 03:50 White Blood Count 5.4 K/UL (4.8-10.8) Red Blood Count 2.91 M/UL (4.20-5.40) Hemoglobin 8.7 G/DL (12.0-16.0) Hematocrit 26.5 % (37.0-47.0) Mean Corpuscular Volume 91 FL (80-99) Mean Corpuscular Hemoglobin 30.1 PG (27.0-31.0) Mean Corpuscular Hemoglobin Concent 33.1 G/DL (32.0-36.0) Red Cell Distribution Width 18.7 % (11.6-14.8) Platelet Count 157 K/UL (150-450) Mean Platelet Volume 8.3 FL (6.5-10.1) Neutrophils (%) (Auto) % (45.0-75.0) Lymphocytes (%) (Auto) % (20.0-45.0) Monocytes (%) (Auto) % (1.0-10.0) Eosinophils (%) (Auto) % (0.0-3.0) Basophils (%) (Auto) % (0.0-2.0) Sodium Level 144 MMOL/L (136-145) Potassium Level 3.7 MMOL/L (3.5-5.1) Chloride Level 109 MMOL/L (98-107) Carbon Dioxide Level 25 MMOL/L (21-32) Anion Gap 10 mmol/L (5-15) Blood Urea Nitrogen 51 mg/dL (7-18) Creatinine 2.2 MG/DL (0.55-1.30) Estimat Glomerular Filtration Rate 21.3 mL/min (>60) Glucose Level 120 MG/DL (74-106) Calcium Level 8.0 MG/DL (8.5-10.1) Phosphorus Level 2.7 MG/DL (2.5-4.9) Magnesium Level 1.8 MG/DL (1.8-2.4) Total Bilirubin 0.4 MG/DL (0.2-1.0) Aspartate Amino Transf (AST/SGOT) 10 U/L (15-37) Alanine Aminotransferase (ALT/SGPT) 7 U/L (12-78) Alkaline Phosphatase 68 U/L (46-116) C-Reactive Protein, Quantitative 15.6 mg/dL (0.00-0.90) Pro-B-Type Natriuretic Peptide > 85962 pg/mL (0-125) Total Protein 4.6 G/DL (6.4-8.2) Albumin 1.7 G/DL (3.4-5.0) Globulin 2.9 g/dL Albumin/Globulin Ratio 0.6 (1.0-2.7) Height (Feet): 5 Height (Inches): 0.00 Weight (Pounds): 145 Objective Physical Exam General: Awake and alert, no acute distress HEENT: NC/AT. EOMI. Cardiovascular: Irregularly irregular rhythm. Resp: Normal work of breathing. ++vent Abdomen: Abdomen is soft, nondistended. Nontender Skin: Intact. No abrasions, laceration or rash over the exposed skin MSK: Normal tone and bulk. Moving all extremities. Neuro: Awake and alert. Mentating appropriately. Hawk Ma MD Nov 05, 2020 06:11
--- NOTE | 2020-11-05 06:47 | NUR ---
NURSE NOTES: Patient up watching tv. Patient denies pain at his time.. will continue to monitor
--- NOTE | 2020-11-05 07:30 | NUR ---
NURSE NOTES: Received report from SERGIO Jordan. Patient in bed awake, resting. Denied pain or SOB at this time. Patient open eyes spontaneously, intubated with 7Fr and advanced at 20cm on lip line . Noted Afib with HR 80 on quality assurance monitor chassis. Vent AC 10 TV 450 PEEP 5 Fio2 30%, O2 sat 99% at this time. On Rectal tube no draining noted. Green Catheter draining well to gravity, patent, intact. Left subclavian TLC patent, intact running TKO. Bed in lowest position, side rails upx3, call light within reach, bed alarm on, Will continue plan of care.
[2020-11-05] MEDS: Digoxin 0.125mg tab GT SCH (08:20)
[2020-11-05] MEDS: Eliquis 2.5mg tablet ORAL SCH ×2 (08:20→17:50)
[2020-11-05] MEDS: Meropenem 500 MG in NS 55 ML IVPB SCH ×2 (08:21→20:22)
[2020-11-05] MEDS: Pantoprazole Inj IVP SCH ×2 (08:21→20:22)
--- NOTE | 2020-11-05 10:05 | NUR ---
NURSE NOTES: Dr. Woods at the bedside. Vent setting changed to CPAP with PS 10. ABG ordered in 30mins.
--- NOTE | 2020-11-05 10:26 | Infectious Diseases Prog Note ---
Assessment/Plan Assessment/Plan IMPRESSION: Pneumonia with Pseudomonas Hypercapnic respiratory failure Recent history of COVID disease, Acute renal failure, Aortic stenosis Atrial fibrillation, hypothyroidism, Anemia. Chronic DVT of R leg Hypotension Gastrostomy status Respiratory acidosis Left pleural effusion RECOMMENDATION: Continue Meropenem Case was D/W RN Subjective ROS Limited/Unobtainable: Yes Respiratory: Reports: other - on weaning process Neurologic: Reports: confusion, other - on restraint Allergies: Coded Allergies: No Known Allergies (Unverified , 10/17/20) Objective Last 24 Hour Vital Signs Date Time Temp Pulse Resp B/P (MAP) Pulse Ox O2 Delivery O2 Flow Rate FiO2 11/05/20 10:00 69 14 121/59 (79) 100 11/05/20 09:00 66 14 120/59 (79) 100 11/05/20 08:20 76 11/05/20 08:00 54 11/05/20 08:00 30 11/05/20 08:00 Endotracheal Tube Endotracheal Tube 11/05/20 08:00 98.3 68 13 115/51 (72) 100 11/05/20 07:55 65 14 30 11/05/20 07:00 71 14 129/49 (75) 100 11/05/20 06:22 77 18 11/05/20 06:00 79 15 140/63 (88) 100 11/05/20 05:30 83 17 143/69 (93) 100 11/05/20 05:00 81 17 143/81 (101) 100 11/05/20 04:30 77 17 131/63 (85) 100 11/05/20 04:13 Endotracheal Tube Endotracheal Tube 11/05/20 04:00 30 11/05/20 04:00 72 15 98/65 (76) 100 11/05/20 04:00 66 11/05/20 03:30 71 15 107/48 (67) 100 11/05/20 03:19 87 13 30 11/05/20 03:00 67 14 91/49 (63) 100 11/05/20 02:30 67 15 105/47 (66) 100 11/05/20 02:00 71 13 113/58 (76) 100 11/05/20 01:30 65 13 92/46 (61) 100 11/05/20 01:00 74 13 101/43 (62) 100 11/05/20 00:30 73 14 95/44 (61) 100 11/05/20 00:00 96 11/05/20 00:00 Endotracheal Tube Endotracheal Tube 11/05/20 00:00 73 14 99/40 (59) 100 11/05/20 00:00 30 11/04/20 23:30 75 15 91/39 (56) 100 11/04/20 23:14 85 14 30 11/04/20 23:00 81 15 112/47 (68) 100 11/04/20 22:30 75 14 97/58 (71) 99 11/04/20 22:00 85 15 99/44 (62) 100 11/04/20 22:00 85 15 99/44 (62) 100 11/04/20 21:30 95 19 157/79 (105) 100 11/04/20 21:00 95 20 100 11/04/20 20:30 97 20 103/71 (82) 100 11/04/20 20:00 87 11/04/20 20:00 30 11/04/20 20:00 Endotracheal Tube Endotracheal Tube 11/04/20 20:00 91 18 138/111 (120) 100 11/04/20 19:30 94 18 161/67 (98) 100 11/04/20 19:19 101 21 30 11/04/20 19:00 91 20 139/72 (94) 100 11/04/20 18:00 99 20 138/73 (94) 100 11/04/20 17:00 93 19 132/101 (111) 100 11/04/20 16:37 93 18 30 11/04/20 16:00 Endotracheal Tube Endotracheal Tube 11/04/20 16:00 98.2 95 20 163/88 (113) 100 11/04/20 16:00 30 11/04/20 15:13 102 11/04/20 15:00 90 21 145/72 (96) 100 11/04/20 14:58 99 18 30 11/04/20 14:00 99 23 125/65 (85) 98 11/04/20 13:00 78 18 30 11/04/20 13:00 91 18 148/74 (98) 98 11/04/20 12:00 93 11/04/20 12:00 30 11/04/20 12:00 97.5 92 13 129/66 (87) 96 11/04/20 12:00 Endotracheal Tube Endotracheal Tube 11/04/20 11:08 100 11/04/20 11:03 107 25 30 11/04/20 11:00 92 20 145/65 (91) 97 Height (Feet): 5 Height (Inches): 0.00 Weight (Pounds): 145 HEENT: other - orally intubated Respiratory/Chest: other - on ventilator, FIO2=30% Cardiovascular: normal rate Abdomen: soft, non tender, other - GT Extremities: other - generalized edema Neurologic/Psychiatric: other - more alert Microbiology Date/Time Source Procedure Growth Status 11/03/20 06:00 Sputum Expectorated Gram Stain - Final Complete 11/03/20 06:00 Sputum Culture - Final Pseudomonas Aeruginosa Complete Laboratory Tests Test 11/05/20 03:30 11/05/20 03:50 Digoxin Level Pending White Blood Count 5.4 K/UL (4.8-10.8) Red Blood Count 2.91 M/UL (4.20-5.40) L Hemoglobin 8.7 G/DL (12.0-16.0) L Hematocrit 26.5 % (37.0-47.0) L Mean Corpuscular Volume 91 FL (80-99) Mean Corpuscular Hemoglobin 30.1 PG (27.0-31.0) Mean Corpuscular Hemoglobin Concent 33.1 G/DL (32.0-36.0) Red Cell Distribution Width 18.7 % (11.6-14.8) H Platelet Count 157 K/UL (150-450) Mean Platelet Volume 8.3 FL (6.5-10.1) Neutrophils (%) (Auto) % (45.0-75.0) Lymphocytes (%) (Auto) % (20.0-45.0) Monocytes (%) (Auto) % (1.0-10.0) Eosinophils (%) (Auto) % (0.0-3.0) Basophils (%) (Auto) % (0.0-2.0) Differential Total Cells Counted 100 Neutrophils % (Manual) 83 % (45-75) H Lymphocytes % (Manual) 11 % (20-45) L Monocytes % (Manual) 5 % (1-10) Eosinophils % (Manual) 1 % (0-3) Basophils % (Manual) 0 % (0-2) Band Neutrophils 0 % (0-8) Platelet Estimate Adequate Platelet Morphology Normal Hypochromasia 1+ Anisocytosis 1+ Sodium Level 144 MMOL/L (136-145) Potassium Level 3.7 MMOL/L (3.5-5.1) Chloride Level 109 MMOL/L (98-107) H Carbon Dioxide Level 25 MMOL/L (21-32) Anion Gap 10 mmol/L (5-15) Blood Urea Nitrogen 51 mg/dL (7-18) H Creatinine 2.2 MG/DL (0.55-1.30) H Estimat Glomerular Filtration Rate 21.3 mL/min (>60) Glucose Level 120 MG/DL (74-106) H Calcium Level 8.0 MG/DL (8.5-10.1) L Phosphorus Level 2.7 MG/DL (2.5-4.9) Magnesium Level 1.8 MG/DL (1.8-2.4) Total Bilirubin 0.4 MG/DL (0.2-1.0) Aspartate Amino Transf (AST/SGOT) 10 U/L (15-37) L Alanine Aminotransferase (ALT/SGPT) 7 U/L (12-78) L Alkaline Phosphatase 68 U/L (46-116) C-Reactive Protein, Quantitative 15.6 mg/dL (0.00-0.90) H Pro-B-Type Natriuretic Peptide > 76344 pg/mL (0-125) H Total Protein 4.6 G/DL (6.4-8.2) L Albumin 1.7 G/DL (3.4-5.0) L Globulin 2.9 g/dL Albumin/Globulin Ratio 0.6 (1.0-2.7) L Current Medications Medications (Trade) Dose Ordered Sig/Yolanda Route PRN Reason Start Time Stop Time Status Last Admin Dose Admin Acetaminophen (Tylenol) 650 mg Q4H PRN ORAL Pain Scale (6-10) 10/17/20 19:15 11/16/20 19:14 Acetaminophen (Tylenol) 650 mg Q6H PRN GT Mild Pain (Pain Scale 1-3) 11/04/20 10:45 12/04/20 10:44 11/04/20 18:20 Acetaminophen (Tylenol) 650 mg Q6H PRN GT Temp >100.5 11/04/20 10:45 12/04/20 10:44 Apixaban (Eliquis) 2.5 mg BID ORAL 10/24/20 18:00 01/22/21 17:59 11/05/20 08:20 Chlorhexidine Gluconate (Eve-Hex 2%) 1 applic DAILY@2000 TOPIC 10/22/20 20:00 01/20/21 19:59 11/04/20 20:18 Digoxin (Lanoxin) 0.125 mg DAILY GT 10/30/20 09:00 01/28/21 08:59 11/05/20 08:20 Furosemide (Lasix) 40 mg EVERY 12 HOURS IV 11/04/20 09:00 12/04/20 08:59 11/05/20 08:21 Haloperidol Lactate 5 mg/ Dextrose 56 ml @ 224 mls/hr Q6H PRN IVPB Agitation 11/04/20 20:30 12/19/20 20:29 11/04/20 21:42 Levothyroxine Sodium (Synthroid) 50 mcg DAILY@0630 ORAL 10/19/20 06:30 11/18/20 06:29 11/05/20 05:59 Meropenem 500 mg/ Sodium Chloride 55 ml @ 110 mls/hr EVERY 12 HOURS IVPB 11/04/20 13:00 11/09/20 12:59 11/05/20 08:21 Norepinephrine Bitartrate 250 ml @ 0 mls/hr Q24H PRN IV For hypotension 11/04/20 08:37 11/07/20 08:36 Ondansetron HCl (Zofran) 4 mg Q6H PRN IVP Nausea & Vomiting 10/17/20 21:15 11/16/20 21:14 Pantoprazole (Protonix) 40 mg Q12HR IVP 11/02/20 21:00 11/25/20 20:59 11/05/20 08:21 Potassium Chloride (K-Dur) 40 meq EVERY 12 HOURS GT 11/04/20 21:00 02/02/21 20:59 11/05/20 08:20 Luis Alvarado MD Nov 05, 2020 10:26
--- NOTE | 2020-11-05 10:47 | Cardiac Electrophysiology PN ---
Assessment/Plan Assessment/Plan 1. NSTEMI with elevated troponin of more than 0.2 and hx of prior ID The level has come down to 0.19, but the levels are flat and likely due to renal failure as the creatinine is 2.1. On aspirin and off Lopressor as hypotensive 2. Atrial fibrillation with rapid ventricular response. Off Lopressor for low BP On Eliquis 2.5 bid Better on Dig 0.125 PEG daily. Dig level 0.9 3. Respiratory failure on the Vent now. On Lasix 40 iv bid 4. S/P Septic shock, off Levophed 5. Renal insufficiency. BUN 53 Cr 2.4 6. Status post COVID pneumonia, was tested positive more than two weeks ago. Now is Covid negative 7. Dysphagia, S/P PEG 10/23/[address] Full code[address] DW Dr. Gómez and Chuck Subjective Subjective S/P PEG by Dr. Tobar 10/23/20 In ICU on Lasix 40 iv bid and off pressors. HR dropped to 50s. Covid negative 10/25 and is off isolation On 30% Fio2 and PEEP 5. In atrial fib with controlled rate Alert off restraints. Failed weaning again. May need tracheostomy Objective Last 24 Hour Vital Signs Date Time Temp Pulse Resp B/P (MAP) Pulse Ox O2 Delivery O2 Flow Rate FiO2 11/05/20 10:05 30 11/05/20 10:00 69 14 121/59 (79) 100 11/05/20 09:00 66 14 120/59 (79) 100 11/05/20 08:20 76 11/05/20 08:00 54 11/05/20 08:00 30 11/05/20 08:00 Endotracheal Tube Endotracheal Tube 11/05/20 08:00 98.3 68 13 115/51 (72) 100 11/05/20 07:55 65 14 30 11/05/20 07:00 71 14 129/49 (75) 100 11/05/20 06:22 77 18 11/05/20 06:00 79 15 140/63 (88) 100 11/05/20 05:30 83 17 143/69 (93) 100 11/05/20 05:00 81 17 143/81 (101) 100 11/05/20 04:30 77 17 131/63 (85) 100 3/11/21 04:13 Endotracheal Tube Endotracheal Tube 11/05/20 04:00 30 11/05/20 04:00 72 15 98/65 (76) 100 11/05/20 04:00 66 11/05/20 03:30 71 15 107/48 (67) 100 11/05/20 03:19 87 13 30 11/05/20 03:00 67 14 91/49 (63) 100 11/05/20 02:30 67 15 105/47 (66) 100 11/05/20 02:00 71 13 113/58 (76) 100 11/05/20 01:30 65 13 92/46 (61) 100 11/05/20 01:00 74 13 101/43 (62) 100 11/05/20 00:30 73 14 95/44 (61) 100 11/05/20 00:00 96 11/05/20 00:00 Endotracheal Tube Endotracheal Tube 11/05/20 00:00 73 14 99/40 (59) 100 11/05/20 00:00 30 11/04/20 23:30 75 15 91/39 (56) 100 11/04/20 23:14 85 14 30 11/04/20 23:00 81 15 112/47 (68) 100 11/04/20 22:30 75 14 97/58 (71) 99 11/04/20 22:00 85 15 99/44 (62) 100 11/04/20 22:00 85 15 99/44 (62) 100 11/04/20 21:30 95 19 157/79 (105) 100 11/04/20 21:00 95 20 100 11/04/20 20:30 97 20 103/71 (82) 100 11/04/20 20:00 87 11/04/20 20:00 30 11/04/20 20:00 Endotracheal Tube Endotracheal Tube 11/04/20 20:00 91 18 138/111 (120) 100 11/04/20 19:30 94 18 161/67 (98) 100 11/04/20 19:19 101 21 30 11/04/20 19:00 91 20 139/72 (94) 100 11/04/20 18:00 99 20 138/73 (94) 100 11/04/20 17:00 93 19 132/101 (111) 100 11/04/20 16:37 93 18 30 11/04/20 16:00 Endotracheal Tube Endotracheal Tube 11/04/20 16:00 98.2 95 20 163/88 (113) 100 11/04/20 16:00 30 11/04/20 15:13 102 11/04/20 15:00 90 21 145/72 (96) 100 11/04/20 14:58 99 18 30 11/04/20 14:00 99 23 125/65 (85) 98 11/04/20 13:00 78 18 30 11/04/20 13:00 91 18 148/74 (98) 98 11/04/20 12:00 93 11/04/20 12:00 30 11/04/20 12:00 97.5 92 13 129/66 (87) 96 11/04/20 12:00 Endotracheal Tube Endotracheal Tube 11/04/20 11:08 100 11/04/20 11:03 107 25 30 11/04/20 11:00 92 20 145/65 (91) 97 Intake and Output 11/04/20 11/05/20 19:00 07:00 Intake Total 495 ml 440 ml Output Total 1170 ml 1345 ml Balance -675 ml -905 ml IV Total 55 ml Tube Feeding 440 ml 440 ml Output Urine Total 1070 ml 1345 ml Stool Total 100 ml # Bowel Movements 2 Laboratory Tests Test 11/05/20 03:30 11/05/20 03:50 Digoxin Level 1.1 NG/ML (0.9-2.0) White Blood Count 5.4 K/UL (4.8-10.8) Red Blood Count 2.91 M/UL (4.20-5.40) L Hemoglobin 8.7 G/DL (12.0-16.0) L Hematocrit 26.5 % (37.0-47.0) L Mean Corpuscular Volume 91 FL (80-99) Mean Corpuscular Hemoglobin 30.1 PG (27.0-31.0) Mean Corpuscular Hemoglobin Concent 33.1 G/DL (32.0-36.0) Red Cell Distribution Width 18.7 % (11.6-14.8) H Platelet Count 157 K/UL (150-450) Mean Platelet Volume 8.3 FL (6.5-10.1) Neutrophils (%) (Auto) % (45.0-75.0) Lymphocytes (%) (Auto) % (20.0-45.0) Monocytes (%) (Auto) % (1.0-10.0) Eosinophils (%) (Auto) % (0.0-3.0) Basophils (%) (Auto) % (0.0-2.0) Differential Total Cells Counted 100 Neutrophils % (Manual) 83 % (45-75) H Lymphocytes % (Manual) 11 % (20-45) L Monocytes % (Manual) 5 % (1-10) Eosinophils % (Manual) 1 % (0-3) Basophils % (Manual) 0 % (0-2) Band Neutrophils 0 % (0-8) Platelet Estimate Adequate Platelet Morphology Normal Hypochromasia 1+ Anisocytosis 1+ Sodium Level 144 MMOL/L (136-145) Potassium Level 3.7 MMOL/L (3.5-5.1) Chloride Level 109 MMOL/L (98-107) H Carbon Dioxide Level 25 MMOL/L (21-32) Anion Gap 10 mmol/L (5-15) Blood Urea Nitrogen 51 mg/dL (7-18) H Creatinine 2.2 MG/DL (0.55-1.30) H Estimat Glomerular Filtration Rate 21.3 mL/min (>60) Glucose Level 120 MG/DL (74-106) H Calcium Level 8.0 MG/DL (8.5-10.1) L Phosphorus Level 2.7 MG/DL (2.5-4.9) Magnesium Level 1.8 MG/DL (1.8-2.4) Total Bilirubin 0.4 MG/DL (0.2-1.0) Aspartate Amino Transf (AST/SGOT) 10 U/L (15-37) L Alanine Aminotransferase (ALT/SGPT) 7 U/L (12-78) L Alkaline Phosphatase 68 U/L (46-116) C-Reactive Protein, Quantitative 15.6 mg/dL (0.00-0.90) H Pro-B-Type Natriuretic Peptide > 41742 pg/mL (0-125) H Total Protein 4.6 G/DL (6.4-8.2) L Albumin 1.7 G/DL (3.4-5.0) L Globulin 2.9 g/dL Albumin/Globulin Ratio 0.6 (1.0-2.7) L Microbiology Date/Time Source Procedure Growth Status 11/03/20 06:00 Sputum Expectorated Gram Stain - Final Complete 11/03/20 06:00 Sputum Culture - Final Pseudomonas Aeruginosa Complete Objective HEAD AND NECK: No JVD. On BIPAP LUNGS: Decreased breath sounds. CARDIOVASCULAR: Irregular S1 and S2 with no gallop. ABDOMEN: Soft.S/P PEG EXTREMITIES: No pitting edema. Terry Reyes MD Nov 05, 2020 10:47
--- NOTE | 2020-11-05 10:53 | Pulmonology Progress Note ---
Subjective ROS Limited/Unobtainable: Yes Interval Events: Intubated 10/31/20 Constitutional: Denies: fever HEENT: Repors: no symptoms Respiratory: Reports: no symptoms Cardiovascular: Reports: no symptoms Gastrointestinal/Abdominal: Reports: diarrhea Psychiatric: Reports: other - s/p PEG Allergies: Coded Allergies: No Known Allergies (Unverified , 10/17/20) All Systems: reviewed and negative except above Objective Last 24 Hour Vital Signs Date Time Temp Pulse Resp B/P (MAP) Pulse Ox O2 Delivery O2 Flow Rate FiO2 11/05/20 10:05 30 11/05/20 10:00 69 14 121/59 (79) 100 11/05/20 09:00 66 14 120/59 (79) 100 11/05/20 08:20 76 11/05/20 08:00 54 11/05/20 08:00 30 11/05/20 08:00 Endotracheal Tube Endotracheal Tube 11/05/20 08:00 98.3 68 13 115/51 (72) 100 11/05/20 07:55 65 14 30 11/05/20 07:00 71 14 129/49 (75) 100 11/05/20 06:22 77 18 11/05/20 06:00 79 15 140/63 (88) 100 11/05/20 05:30 83 17 143/69 (93) 100 11/05/20 05:00 81 17 143/81 (101) 100 11/05/20 04:30 77 17 131/63 (85) 100 11/05/20 04:13 Endotracheal Tube Endotracheal Tube 11/05/20 04:00 30 11/05/20 04:00 72 15 98/65 (76) 100 11/05/20 04:00 66 11/05/20 03:30 71 15 107/48 (67) 100 11/05/20 03:19 87 13 30 11/05/20 03:00 67 14 91/49 (63) 100 11/05/20 02:30 67 15 105/47 (66) 100 11/05/20 02:00 71 13 113/58 (76) 100 11/05/20 01:30 65 13 92/46 (61) 100 11/05/20 01:00 74 13 101/43 (62) 100 11/05/20 00:30 73 14 95/44 (61) 100 11/05/20 00:00 96 11/05/20 00:00 Endotracheal Tube Endotracheal Tube 11/05/20 00:00 73 14 99/40 (59) 100 11/05/20 00:00 30 11/04/20 23:30 75 15 91/39 (56) 100 11/04/20 23:14 85 14 30 11/04/20 23:00 81 15 112/47 (68) 100 11/04/20 22:30 75 14 97/58 (71) 99 11/04/20 22:00 85 15 99/44 (62) 100 11/04/20 22:00 85 15 99/44 (62) 100 11/04/20 21:30 95 19 157/79 (105) 100 11/04/20 21:00 95 20 100 11/04/20 20:30 97 20 103/71 (82) 100 11/04/20 20:00 87 11/04/20 20:00 30 11/04/20 20:00 Endotracheal Tube Endotracheal Tube 11/04/20 20:00 91 18 138/111 (120) 100 11/04/20 19:30 94 18 161/67 (98) 100 11/04/20 19:19 101 21 30 11/04/20 19:00 91 20 139/72 (94) 100 11/04/20 18:00 99 20 138/73 (94) 100 11/04/20 17:00 93 19 132/101 (111) 100 11/04/20 16:37 93 18 30 11/04/20 16:00 Endotracheal Tube Endotracheal Tube 11/04/20 16:00 98.2 95 20 163/88 (113) 100 11/04/20 16:00 30 11/04/20 15:13 102 11/04/20 15:00 90 21 145/72 (96) 100 11/04/20 14:58 99 18 30 11/04/20 14:00 99 23 125/65 (85) 98 11/04/20 13:00 78 18 30 11/04/20 13:00 91 18 148/74 (98) 98 11/04/20 12:00 93 11/04/20 12:00 30 11/04/20 12:00 97.5 92 13 129/66 (87) 96 11/04/20 12:00 Endotracheal Tube Endotracheal Tube 11/04/20 11:08 100 11/04/20 11:03 107 25 30 11/04/20 11:00 92 20 145/65 (91) 97 Intake and Output 11/04/20 11/05/20 19:00 07:00 Intake Total 495 ml 440 ml Output Total 1170 ml 1345 ml Balance -675 ml -905 ml IV Total 55 ml Tube Feeding 440 ml 440 ml Output Urine Total 1070 ml 1345 ml Stool Total 100 ml # Bowel Movements 2 General Appearance: no acute distress HEENT: atraumatic Respiratory: lungs clear Cardiovascular: normal rate, regular rhythm Abdomen: soft, non tender, other - s/p PEG Microbiology Date/Time Source Procedure Growth Status 11/03/20 06:00 Sputum Expectorated Gram Stain - Final Complete 11/03/20 06:00 Sputum Culture - Final Pseudomonas Aeruginosa Complete Laboratory Tests 11/05/20 03:30: Digoxin Level 1.1 11/05/20 03:50: White Blood Count 5.4, Red Blood Count 2.91L, Hemoglobin 8.7L, Hematocrit 26.5L, Mean Corpuscular Volume 91, Mean Corpuscular Hemoglobin 30.1, Mean Corpuscular Hemoglobin Concent 33.1, Red Cell Distribution Width 18.7H, Platelet Count 157, Mean Platelet Volume 8.3, Neutrophils (%) (Auto) , Lymphocytes (%) (Auto) , Monocytes (%) (Auto) , Eosinophils (%) (Auto) , Basophils (%) (Auto) , Differential Total Cells Counted 100, Neutrophils % (Manual) 83H, Lymphocytes % (Manual) 11L, Monocytes % (Manual) 5, Eosinophils % (Manual) 1, Basophils % (Manual) 0, Band Neutrophils 0, Platelet Estimate Adequate, Platelet Morphology Normal, Hypochromasia 1+, Anisocytosis 1+, Sodium Level 144, Potassium Level 3.7, Chloride Level 109H, Carbon Dioxide Level 25, Anion Gap 10, Blood Urea Ni trogen 51H, Creatinine 2.2H, Estimat Glomerular Filtration Rate 21.3, Glucose Level 120H, Calcium Level 8.0L, Phosphorus Level 2.7, Magnesium Level 1.8, Total Bilirubin 0.4, Aspartate Amino Transf (AST/SGOT) 10L, Alanine Aminotransferase (ALT/SGPT) 7L, Alkaline Phosphatase 68, C-Reactive Protein, Quantitative 15.6H, Pro-B-Type Natriuretic Peptide > 07039D, Total Protein 4.6L, Albumin 1.7L, Globulin 2.9, Albumin/Globulin Ratio 0.6L Current Medications Medications (Trade) Dose Ordered Sig/Yolanda Route PRN Reason Start Time Stop Time Status Last Admin Dose Admin Acetaminophen (Tylenol) 650 mg Q4H PRN ORAL Pain Scale (6-10) 10/17/20 19:15 11/16/20 19:14 Acetaminophen (Tylenol) 650 mg Q6H PRN GT Mild Pain (Pain Scale 1-3) 11/04/20 10:45 12/04/20 10:44 11/04/20 18:20 Acetaminophen (Tylenol) 650 mg Q6H PRN GT Temp >100.5 11/04/20 10:45 12/04/20 10:44 Apixaban (Eliquis) 2.5 mg BID ORAL 10/24/20 18:00 01/22/21 17:59 11/05/20 08:20 Chlorhexidine Gluconate (Eve-Hex 2%) 1 applic DAILY@2000 TOPIC 10/22/20 20:00 01/20/21 19:59 11/04/20 20:18 Digoxin (Lanoxin) 0.125 mg DAILY GT 10/30/20 09:00 01/28/21 08:59 11/05/20 08:20 Furosemide (Lasix) 40 mg EVERY 12 HOURS IV 11/04/20 09:00 12/04/20 08:59 11/05/20 08:21 Haloperidol Lactate 5 mg/ Dextrose 56 ml @ 224 mls/hr Q6H PRN IVPB Agitation 11/04/20 20:30 12/19/20 20:29 11/04/20 21:42 Levothyroxine Sodium (Synthroid) 50 mcg DAILY@0630 ORAL 10/19/20 06:30 11/18/20 06:29 11/05/20 05:59 Meropenem 500 mg/ Sodium Chloride 55 ml @ 110 mls/hr EVERY 12 HOURS IVPB 11/04/20 13:00 11/09/20 12:59 11/05/20 08:21 Norepinephrine Bitartrate 250 ml @ 0 mls/hr Q24H PRN IV For hypotension 11/04/20 08:37 11/07/20 08:36 Ondansetron HCl (Zofran) 4 mg Q6H PRN IVP Nausea & Vomiting 10/17/20 21:15 11/16/20 21:14 Pantoprazole (Protonix) 40 mg Q12HR IVP 11/02/20 21:00 11/25/20 20:59 11/05/20 08:21 Potassium Chloride (K-Dur) 40 meq EVERY 12 HOURS GT 11/04/20 21:00 02/02/21 20:59 11/05/20 08:20 Assessment/Plan Assessment/Plan 1. CHF. 2. CAD/previous non-STEMI. 3. skilled nursing resident. 4. Bradycardia. 5. Atrial fibrillation. -Started on Eliquis 6. Renal insufficiency. -Nephro following 7. Troponin leak. - Cardio following 8. COVID-19 pneumonia, without fever or leukocytosis - Now intubated - ABG improved - Sp Cx (11/03) Gram negative bacillus -> now on meropenem per ID 9. Respiratory failure, s/p vent - 40-> 30% FiO2, PEEP 5 -> continue weaning trial - CPAP today, recheck ABG 10. 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 UTI, cheryl 12. Dysphagia -s/p PEG (10/23) 13. Hypotension; improved - s/p NS bolus - pressors as needed - will continue diureses The care of this patient was discussed with my supervising physician Time spent for this encounter was approximately 31 minutes Tl Pedro Nov 05, 2020 10:52
--- NOTE | 2020-11-05 11:12 | NUR ---
NURSE NOTES: Ashley Pedro NP ABG results. No new orders at this time.
--- NOTE | 2020-11-05 11:36 | NUR ---
RESPIRATORY NOTE: Pt placed on CPAP 5, PS 10, 30% FiO2 at 1010. SpO2 at 99%. Pt tolerated well for 1 hour. Spontaneous VT around 200-300. Spontaneous respiratory rate between 26-40. ABG done after 1 hour. SERGIO desir MD notified of results. Placed back on AC mode at 1110. Will continue to monitor.
--- NOTE | 2020-11-05 12:00 | NUR ---
NURSE NOTES: Pt tolerating well with vent setting [id number]%, peep of 5. No draining noted from rectal tube. Awake and able to follow the simple direction. IV in left subclavian asymptomatic and patent. Will continue plan of care.
--- NOTE | 2020-11-05 12:55 | General Progress Note ---
Subjective ROS Limited/Unobtainable: No Allergies: Coded Allergies: No Known Allergies (Unverified , 10/17/20) Subjective intubated now Objective Last 24 Hour Vital Signs Date Time Temp Pulse Resp B/P (MAP) Pulse Ox O2 Delivery O2 Flow Rate FiO2 11/05/20 12:08 Mechanical Ventilator 11/05/20 12:00 72 11/05/20 12:00 98.7 79 12 112/54 (73) 100 11/05/20 11:22 99 11/05/20 11:15 30 11/05/20 11:10 88 27 30 11/05/20 11:00 89 32 144/76 (98) 100 11/05/20 10:05 30 11/05/20 10:00 69 14 121/59 (79) 100 11/05/20 09:00 66 14 120/59 (79) 100 11/05/20 08:20 76 11/05/20 08:00 54 11/05/20 08:00 30 11/05/20 08:00 Endotracheal Tube Endotracheal Tube 11/05/20 08:00 98.3 68 13 115/51 (72) 100 11/05/20 07:55 65 14 30 11/05/20 07:00 71 14 129/49 (75) 100 11/05/20 06:22 77 18 11/05/20 06:00 79 15 140/63 (88) 100 11/05/20 05:30 83 17 143/69 (93) 100 11/05/20 05:00 81 17 143/81 (101) 100 11/05/20 04:30 77 17 131/63 (85) 100 11/05/20 04:13 Endotracheal Tube Endotracheal Tube 11/05/20 04:00 30 11/05/20 04:00 72 15 98/65 (76) 100 11/05/20 04:00 66 11/05/20 03:30 71 15 107/48 (67) 100 11/05/20 03:19 87 13 30 11/05/20 03:00 67 14 91/49 (63) 100 11/05/20 02:30 67 15 105/47 (66) 100 11/05/20 02:00 71 13 113/58 (76) 100 11/05/20 01:30 65 13 92/46 (61) 100 11/05/20 01:00 74 13 101/43 (62) 100 11/05/20 00:30 73 14 95/44 (61) 100 11/05/20 00:00 96 11/05/20 00:00 Endotracheal Tube Endotracheal Tube 11/05/20 00:00 73 14 99/40 (59) 100 11/05/20 00:00 30 11/04/20 23:30 75 15 91/39 (56) 100 11/04/20 23:14 85 14 30 11/04/20 23:00 81 15 112/47 (68) 100 11/04/20 22:30 75 14 97/58 (71) 99 11/04/20 22:00 85 15 99/44 (62) 100 11/04/20 22:00 85 15 99/44 (62) 100 11/04/20 21:30 95 19 157/79 (105) 100 11/04/20 21:00 95 20 100 11/04/20 20:30 97 20 103/71 (82) 100 11/04/20 20:00 87 11/04/20 20:00 30 11/04/20 20:00 Endotracheal Tube Endotracheal Tube 11/04/20 20:00 91 18 138/111 (120) 100 11/04/20 19:30 94 18 161/67 (98) 100 11/04/20 19:19 101 21 30 11/04/20 19:00 91 20 139/72 (94) 100 11/04/20 18:00 99 20 138/73 (94) 100 11/04/20 17:00 93 19 132/101 (111) 100 11/04/20 16:37 93 18 30 11/04/20 16:00 Endotracheal Tube Endotracheal Tube 11/04/20 16:00 98.2 95 20 163/88 (113) 100 11/04/20 16:00 30 11/04/20 15:13 102 11/04/20 15:00 90 21 145/72 (96) 100 11/04/20 14:58 99 18 30 11/04/20 14:00 99 23 125/65 (85) 98 11/04/20 13:00 78 18 30 11/04/20 13:00 91 18 148/74 (98) 98 Intake and Output 11/04/20 11/05/20 19:00 07:00 Intake Total 495 ml 440 ml Output Total 1170 ml 1345 ml Balance -675 ml -905 ml IV Total 55 ml Tube Feeding 440 ml 440 ml Output Urine Total 1070 ml 1345 ml Stool Total 100 ml # Bowel Movements 2 Laboratory Tests 11/05/20 03:30: Digoxin Level 1.1 11/05/20 03:50: White Blood Count 5.4, Red Blood Count 2.91L, Hemoglobin 8.7L, Hematocrit 26.5L, Mean Corpuscular Volume 91, Mean Corpuscular Hemoglobin 30.1, Mean Corpuscular Hemoglobin Concent 33.1, Red Cell Distribution Width 18.7H, Platelet Count 157, Mean Platelet Volume 8.3, Neutrophils (%) (Auto) , Lymphocytes (%) (Auto) , Monocytes (%) (Auto) , Eosinophils (%) (Auto) , Basophils (%) (Auto) , Differential Total Cells Counted 100, Neutrophils % (Manual) 83H, Lymphocytes % (Manual) 11L, Monocytes % (Manual) 5, Eosinophils % (Manual) 1, Basophils % (Manual) 0, Band Neutrophils 0, Platelet Estimate Adequate, Platelet Morphology Normal, Hypochromasia 1+, Anisocytosis 1+, Sodium Level 144, Potassium Level 3.7, Chloride Level 109H, Carbon Dioxide Level 25, Anion Gap 10, Blood Urea Nitrogen 51H, Creatinine 2.2H, Estimat Glomerular Filtration Rate 21.3, Glucose Level 120H, Calcium Level 8.0L, Phosphorus Level 2.7, Magnesium Level 1.8, Total Bilirubin 0.4, Aspartate Amino Transf (AST/SGOT) 10L, Alanine Aminotransferase (ALT/SGPT) 7L, Alkaline Phosphatase 68, C-Reactive Protein, Quantitative 15.6H, Pro-B-Type Natriuretic Peptide > 87187A, Total Protein 4.6L, Albumin 1.7L, Globulin 2.9, Albumin/Globulin Ratio 0.6L 11/05/20 10:50: Arterial Blood pH 7.366, Arterial Blood Partial Pressure CO2 45.6H, Arterial Blood Partial Pressure O2 110.8H, Arterial Blood HCO3 25.5, Arterial Blood Oxygen Saturation 97.4, Arterial Blood Base Excess 0, Gallo Test Positive Height (Feet): 5 Height (Inches): 0.00 Weight (Pounds): 145 General Appearance: no apparent distress EENT: normal ENT inspection Neck: supple Cardiovascular: normal rate Respiratory/Chest: decreased breath sounds Abdomen: normal bowel sounds, non tender, soft Extremities: non-tender Assessment/Plan Problem List: (1) Hypothyroidism ICD Codes: E03.9 - Hypothyroidism, unspecified SNOMED: 74248434 (2) Pneumonia due to COVID-19 virus ICD Codes: U07.1 - COVID-19; J12.82 - Pneumonia due to coronavirus disease 2019 SNOMED: 613961324842053815 (3) Malnutrition ICD Codes: E46 - Unspecified protein-calorie malnutrition SNOMED: 07256094 (4) Decubitus skin ulcer ICD Codes: L89.90 - Pressure ulcer of unspecified site, unspecified stage SNOMED: 361266632 (5) Elevated troponin ICD Codes: R77.8 - Other specified abnormalities of plasma proteins SNOMED: 215524781, 879853434, 471017974 (6) Atrial fibrillation ICD Codes: I48.91 - Unspecified atrial fibrillation SNOMED: 42502603 (7) Anemia ICD Codes: D64.9 - Anemia, unspecified SNOMED: 438987469 Status: progressing Assessment/Plan: GTF fu cardiology fu pulm labs for AM intubated now Skyler Tobar MD Nov 05, 2020 12:54
--- NOTE | 2020-11-05 13:29 | NUR ---
NURSE NOTES: Dr. Woods called. Extubation order. No SOB or respiratory distress noted.
--- NOTE | 2020-11-05 14:10 | NUR ---
NURSE NOTES: Pt extubated at 1410 by RT Yohannes. No respiratory distress noted. 40% oxygen via mask with cool aerosol applied. Sating 100% noted.
--- NOTE | 2020-11-05 14:10 | NUR ---
RESPIRATORY NOTE: Patient successfully extubated at 1410. RN at bedside. Placed on cool aerosol 40%. SpO2 at 100% No respiratory distress noted. Will continue to monitor.
--- NOTE | 2020-11-05 14:13 | Surgery Progress Note ---
Surgery Progress Note Subjective Procedure Performed left subclavian central venous catheter insertion Additional Comments non responsive on vent no n/v labs noted Objective Last 24 Hour Vital Signs Date Time Temp Pulse Resp B/P (MAP) Pulse Ox O2 Delivery O2 Flow Rate FiO2 11/05/20 14:00 75 12 105/52 (69) 100 11/05/20 13:00 70 12 108/59 (75) 100 11/05/20 12:08 Mechanical Ventilator 11/05/20 12:00 72 11/05/20 12:00 98.7 79 12 112/54 (73) 100 11/05/20 11:22 99 11/05/20 11:15 30 11/05/20 11:10 88 27 30 11/05/20 11:00 89 32 144/76 (98) 100 11/05/20 10:05 30 11/05/20 10:00 69 14 121/59 (79) 100 11/05/20 09:00 66 14 120/59 (79) 100 11/05/20 08:20 76 11/05/20 08:00 54 11/05/20 08:00 30 11/05/20 08:00 Endotracheal Tube Endotracheal Tube 11/05/20 08:00 98.3 68 13 115/51 (72) 100 11/05/20 07:55 65 14 30 11/05/20 07:00 71 14 129/49 (75) 100 11/05/20 06:22 77 18 11/05/20 06:00 79 15 140/63 (88) 100 11/05/20 05:30 83 17 143/69 (93) 100 11/05/20 05:00 81 17 143/81 (101) 100 11/05/20 04:30 77 17 131/63 (85) 100 11/05/20 04:13 Endotracheal Tube Endotracheal Tube 11/05/20 04:00 30 11/05/20 04:00 72 15 98/65 (76) 100 11/05/20 04:00 66 11/05/20 03:30 71 15 107/48 (67) 100 11/05/20 03:19 87 13 30 11/05/20 03:00 67 14 91/49 (63) 100 11/05/20 02:30 67 15 105/47 (66) 100 11/05/20 02:00 71 13 113/58 (76) 100 11/05/20 01:30 65 13 92/46 (61) 100 11/05/20 01:00 74 13 101/43 (62) 100 11/05/20 00:30 73 14 95/44 (61) 100 11/05/20 00:00 96 11/05/20 00:00 Endotracheal Tube Endotracheal Tube 11/05/20 00:00 73 14 99/40 (59) 100 11/05/20 00:00 30 11/04/20 23:30 75 15 91/39 (56) 100 11/04/20 23:14 85 14 30 11/04/20 23:00 81 15 112/47 (68) 100 11/04/20 22:30 75 14 97/58 (71) 99 11/04/20 22:00 85 15 99/44 (62) 100 11/04/20 22:00 85 15 99/44 (62) 100 11/04/20 21:30 95 19 157/79 (105) 100 11/04/20 21:00 95 20 100 11/04/20 20:30 97 20 103/71 (82) 100 11/04/20 20:00 87 11/04/20 20:00 30 11/04/20 20:00 Endotracheal Tube Endotracheal Tube 11/04/20 20:00 91 18 138/111 (120) 100 11/04/20 19:30 94 18 161/67 (98) 100 11/04/20 19:19 101 21 30 11/04/20 19:00 91 20 139/72 (94) 100 11/04/20 18:00 99 20 138/73 (94) 100 11/04/20 17:00 93 19 132/101 (111) 100 11/04/20 16:37 93 18 30 11/04/20 16:00 Endotracheal Tube Endotracheal Tube 11/04/20 16:00 98.2 95 20 163/88 (113) 100 11/04/20 16:00 30 11/04/20 15:13 102 11/04/20 15:00 90 21 145/72 (96) 100 11/04/20 14:58 99 18 30 I&O Intake and Output 11/04/20 11/05/20 19:00 07:00 Intake Total 495 ml 440 ml Output Total 1170 ml 1345 ml Balance -675 ml -905 ml IV Total 55 ml Tube Feeding 440 ml 440 ml Output Urine Total 1070 ml 1345 ml Stool Total 100 ml # Bowel Movements 2 Dressing: saturated Cardiovascular: RSR Respiratory: decreased breath sounds Abdomen: non-tender, present bowel sounds, non-distended, decreased bowel sounds Extremities: edema, no tenderness, no cyanosis Laboratory Tests Test 11/05/20 03:30 11/05/20 03:50 11/05/20 10:50 Digoxin Level 1.1 NG/ML (0.9-2.0) White Blood Count 5.4 K/UL (4.8-10.8) Red Blood Count 2.91 M/UL (4.20-5.40) L Hemoglobin 8.7 G/DL (12.0-16.0) L Hematocrit 26.5 % (37.0-47.0) L Mean Corpuscular Volume 91 FL (80-99) Mean Corpuscular Hemoglobin 30.1 PG (27.0-31.0) Mean Corpuscular Hemoglobin Concent 33.1 G/DL (32.0-36.0) Red Cell Distribution Width 18.7 % (11.6-14.8) H Platelet Count 157 K/UL (150-450) Mean Platelet Volume 8.3 FL (6.5-10.1) Neutrophils (%) (Auto) % (45.0-75.0) Lymphocytes (%) (Auto) % (20.0-45.0) Monocytes (%) (Auto) % (1.0-10.0) Eosinophils (%) (Auto) % (0.0-3.0) Basophils (%) (Auto) % (0.0-2.0) Differential Total Cells Counted 100 Neutrophils % (Manual) 83 % (45-75) H Lymphocytes % (Manual) 11 % (20-45) L Monocytes % (Manual) 5 % (1-10) Eosinophils % (Manual) 1 % (0-3) Basophils % (Manual) 0 % (0-2) Band Neutrophils 0 % (0-8) Platelet Estimate Adequate Platelet Morphology Normal Hypochromasia 1+ Anisocytosis 1+ Sodium Level 144 MMOL/L (136-145) Potassium Level 3.7 MMOL/L (3.5-5.1) Chloride Level 109 MMOL/L (98-107) H Carbon Dioxide Level 25 MMOL/L (21-32) Anion Gap 10 mmol/L (5-15) Blood Urea Nitrogen 51 mg/dL (7-18) H Creatinine 2.2 MG/DL (0.55-1.30) H Estimat Glomerular Filtration Rate 21.3 mL/min (>60) Glucose Level 120 MG/DL (74-106) H Calcium Level 8.0 MG/DL (8.5-10.1) L Phosphorus Level 2.7 MG/DL (2.5-4.9) Magnesium Level 1.8 MG/DL (1.8-2.4) Total Bilirubin 0.4 MG/DL (0.2-1.0) Aspartate Amino Transf (AST/SGOT) 10 U/L (15-37) L Alanine Aminotransferase (ALT/SGPT) 7 U/L (12-78) L Alkaline Phosphatase 68 U/L (46-116) C-Reactive Protein, Quantitative 15.6 mg/dL (0.00-0.90) H Pro-B-Type Natriuretic Peptide > 16001 pg/mL (0-125) H Total Protein 4.6 G/DL (6.4-8.2) L Albumin 1.7 G/DL (3.4-5.0) L Globulin 2.9 g/dL Albumin/Globulin Ratio 0.6 (1.0-2.7) L Arterial Blood pH 7.366 (7.350-7.450) Arterial Blood Partial Pressure CO2 45.6 mmHg (35.0-45.0) H Arterial Blood Partial Pressure O2 110.8 mmHg (75.0-100.0) H Arterial Blood HCO3 25.5 mmol/L (22.0-26.0) Arterial Blood Oxygen Saturation 97.4 % (95-100) Arterial Blood Base Excess 0 (-2-2) Gallo Test Positive Plan Problems: (1) Anemia (2) Acute kidney injury (3) Atrial fibrillation (4) Hyperkalemia (5) Elevated troponin (6) Decubitus skin ulcer Assessment & Plan: Pt presented on admission with Multiple Medical Comorbidities including Covid-19 and Pressure Injuries. Primary Nurse reported Pt has been declining food and medications. Sacral DTPI that is evolving noted to Sacrum(L)6cm x (W)12.5cm.. Scattered Purpuric areas that are indurated noted to R and L cheek. Small wound that is 100% slough (L)0.6cm x (W)0.7cm noted at sacrococcygeal area within base of DTPI. MASD noted to Perineum and skin folds of Medial/posterior aspects of Both upper thighs. Affected areas are erythematous and macerated with scattered satellite lesions. DTPI L Heel (L)3cm x (W)4cm, Base of heel is maroon and fluctuant with small purpuric area (L)0.4cm x (W)0.9cm within base of DTPI. l Foot including toes are mottled and cool to touch. L Heel is boggy. L Heel including toes are Mottled and cool to touch. Tx.Plan: Apply Moisture Barrier Paste to Sacrum. Cover with Optifoam drsg.Change every 3 days and prn. Apply Moisture Barrier Paste to abdominal folds, Perineum and skin folds of both upper thighs. Apply Cavilon Skin Barrier to both heels. Cover each Heel with Optifoam drsg. Change every 7 days and prn. Reposition at least every 2hours or as tolerated. Off-load heels with pillow. (7) Malnutrition Assessment & Plan: She was able to self feed on right hand and took a bite of popsicle and tolerated without s.s of aspiration. After 1st bite, then she refused 2nd bite. After this was done, I offered her a cup of cranberry juice, she took few sips and tolerated without s.s of aspiration. I continued to offer but she refused further PO. A: 1. Functional swallow 2. Failure to thrive 3. abnormal electrolytes in setting of heart failure, NSTEMI, elevated BNP, etc.. P/Rec. 1. Pureed and thin liquid 2.3. Goal of care discussion DAILY ESTIMATED NEEDS: Needs based on Cardiac, pulmonary/ 51kg abw 25-30 kcals/kg 0077-8121 total kcals 1-1.5 g protein/kg 51-76 g total protein 20-25 mL/kg 2548-5478 total fluid mLs NUTRITION DIAGNOSIS: Swallowing difficulty R/T dysphagia, decreased cognitive fxn as evidenced by [employer]ILRO[employer] WORKER recommends pureed moist texture diet at this time. CURRENT DIET:NPO PO DIET RECOMMENDATIONS: Liberalized REGULAR w/ poor PO (texture per RAILROAD WORKER) ADDITIONAL RECOMMENDATIONS: * Calibrated bedscale wt * Monitor PO intake: refusing meds and foods at this time -> rec nonoral feeds w/ continued refusal of PO if part of POC * LOW NA diet w/ PO intake consistently >50% * 4 oz Ensure TID w/ meals (4oz at this time due to poor acceptance, may increase to 8oz w/ good acceptance) (8) Pneumonia due to COVID-19 virus Assessment & Plan: here appears to be increased left pleural fluid and generalized hazy parenchymal opacity, left greater than right. Heart remains enlarged Impression: Increased left pleural effusion Suspect increasing bilateral left greater than right pulmonary edema versus infiltrates worsening intubated on vent (9) Hypothyroidism Jim Orosco Nov 05, 2020 14:12
--- NOTE | 2020-11-05 14:38 | Nephrology Progress Note ---
Assessment/Plan Problem List: (1) Acute kidney injury (2) Anemia (3) Hyperkalemia (4) Elevated troponin (5) Pneumonia due to COVID-19 virus (6) Hypothyroidism Assessment Plan November 05: Mental status improved. Labs and medication list reviewed. Serum creatinine 2.2. Weaning trial in process. Continue per consultants. November 04: Full code. Intubated. Labs reviewed. Low potassium addressed. Serum creatinine stable 2.3. Continue per consultants. Weaning as possible. November 03: Remains full code. Remains intubated. FiO2 30%. Discussed with RN. Low potassium addressed. Patient remains on Lasix. Continue to monitor renal parameters. Serum creatinine slightly rising. November 02: Patient remains intubated on ventilator. FiO2 30%. Labs reviewed. Low potassium addressed. Medication list reviewed. Patient on Lasix 40 mg every 8 hours. Serum creatinine higher to 2.3. Feeding changed to Nepro. Potassium supplement given. Continue to monitor renal parameters. November 01: Seen in ICU. Now intubated on ventilator. Discussed with RN. Labs results noted. Abnormal electrolytes addressed. Discussed with RN. Continue per consultants. October 31: Patient seen in ICU. Discussed with SERGIO Miller. ABG noted. Patient acidotic. Being transfused. Potassium is being replaced. Due for another ABG and possible intubation if needed. Conferred with pulmonary and cardiology. October 30: Labs reviewed. Potassium elevated. Kayexalate ordered. Continue to monitor hemoglobin hematocrit and renal parameters. Serum creatinine 2.1. Remains on BiPAP. October 29: Seen in ICU. Discussed with SERGIO Wilkerson. Hemoglobin low. Transfuse 1 unit of packed RBCs. Potassium supplements IV given. Midodrine discontinued. Serum creatinine 2.2 stable. Patient remains on BiPAP. Continue per consultants. Continue to monitor hemoglobin hematocrit electrolytes and renal parameters. October 28: Seen in ICU. Remains on BiPAP. Low potassium and low magnesium addressed. Serum creatinine plateaued at 2.2. Continue per current treatment plan. October 27: Patient in ICU. On BiPAP. Serum creatinine rising. Blood pressure more stable. Will give 100 mg Lasix IV push with the hope of reversing oliguria. Medication list reviewed. Continue to monitor renal parameters. October 26: Seen in ICU. On pressors for low blood pressure. Serum creatinine 2.1. Albumin bolus given. Stress dose of steroids initiated. Continue to monitor renal parameters. Continue per consultants. October 25: Patient seen and examined. Trendelenburg. Blood pressure low. Tachycardic. Discussed with RN. Patient to be transferred to ICU. Discussed with ICU charge nurse and hospital charge nurse. Meanwhile patient started on Albumin bolus and 100 cc an hour D5 normal saline. Patient to be started on pressors while in ICU. Patient full code. October 24: No CHEM panel drawn today.. Renal parameters stable. Patient had a GT placed yesterday. Will check labs tomorrow. Medication list reviewed. October 23: Labs reviewed. Renal parameters unchanged. Creatinine 1.9. Continue current management. Medication list reviewed. October 22: Labs reviewed. Serum creatinine lower at 1.8. Patient started on clear liquid. Patient refuses p.o. medications and food at times. Continue per consultants. October 21: Labs reviewed. Serum creatinine unchanged. Continue per consultants. Continue to monitor renal parameters. October 20: Today's labs reviewed. Serum creatinine unchanged. RN reports patient not taking any p.o. meds. Continue per consultants. Serum creatinine appears to be baseline. October 19: Today's labs still not done yet. RN informed. Albumin bolus given again. Continue to monitor electrolytes and renal parameters. Per orders October 18: Patient hypotensive. Due for blood transfusion. Will give albumin bolus. Continue to monitor renal parameters and electrolytes. Labs and medication list reviewed Subjective ROS Limited/Unobtainable: Yes Objective Objective Last 24 Hour Vital Signs Date Time Temp Pulse Resp B/P (MAP) Pulse Ox O2 Delivery O2 Flow Rate FiO2 11/05/20 14:10 Mechanical Ventilator 11/05/20 14:00 75 12 105/52 (69) 100 11/05/20 13:00 70 12 108/59 (75) 100 11/05/20 12:08 Mechanical Ventilator 11/05/20 12:00 72 11/05/20 12:00 98.7 79 12 112/54 (73) 100 11/05/20 11:22 99 11/05/20 11:15 30 11/05/20 11:10 88 27 30 11/05/20 11:00 89 32 144/76 (98) 100 11/05/20 10:05 30 11/05/20 10:00 69 14 121/59 (79) 100 11/05/20 09:00 66 14 120/59 (79) 100 11/05/20 08:20 76 11/05/20 08:00 54 11/05/20 08:00 30 11/05/20 08:00 Endotracheal Tube Endotracheal Tube 11/05/20 08:00 98.3 68 13 115/51 (72) 100 11/05/20 07:55 65 14 30 11/05/20 07:00 71 14 129/49 (75) 100 11/05/20 06:22 77 18 11/05/20 06:00 79 15 140/63 (88) 100 11/05/20 05:30 83 17 143/69 (93) 100 11/05/20 05:00 81 17 143/81 (101) 100 11/05/20 04:30 77 17 131/63 (85) 100 11/05/20 04:13 Endotracheal Tube Endotracheal Tube 11/05/20 04:00 30 11/05/20 04:00 72 15 98/65 (76) 100 11/05/20 04:00 66 11/05/20 03:30 71 15 107/48 (67) 100 11/05/20 03:19 87 13 30 11/05/20 03:00 67 14 91/49 (63) 100 11/05/20 02:30 67 15 105/47 (66) 100 11/05/20 02:00 71 13 113/58 (76) 100 11/05/20 01:30 65 13 92/46 (61) 100 11/05/20 01:00 74 13 101/43 (62) 100 11/05/20 00:30 73 14 95/44 (61) 100 11/05/20 00:00 96 11/05/20 00:00 Endotracheal Tube Endotracheal Tube 11/05/20 00:00 73 14 99/40 (59) 100 11/05/20 00:00 30 11/04/20 23:30 75 15 91/39 (56) 100 11/04/20 23:14 85 14 30 11/04/20 23:00 81 15 112/47 (68) 100 11/04/20 22:30 75 14 97/58 (71) 99 11/04/20 22:00 85 15 99/44 (62) 100 11/04/20 22:00 85 15 99/44 (62) 100 11/04/20 21:30 95 19 157/79 (105) 100 11/04/20 21:00 95 20 100 11/04/20 20:30 97 20 103/71 (82) 100 11/04/20 20:00 87 11/04/20 20:00 30 11/04/20 20:00 Endotracheal Tube Endotracheal Tube 11/04/20 20:00 91 18 138/111 (120) 100 11/04/20 19:30 94 18 161/67 (98) 100 11/04/20 19:19 101 21 30 11/04/20 19:00 91 20 139/72 (94) 100 11/04/20 18:00 99 20 138/73 (94) 100 11/04/20 17:00 93 19 132/101 (111) 100 11/04/20 16:37 93 18 30 11/04/20 16:00 Endotracheal Tube Endotracheal Tube 11/04/20 16:00 98.2 95 20 163/88 (113) 100 11/04/20 16:00 30 11/04/20 15:13 102 11/04/20 15:00 90 21 145/72 (96) 100 11/04/20 14:58 99 18 30 Intake and Output 11/04/20 11/05/20 19:00 07:00 Intake Total 495 ml 440 ml Output Total 1170 ml 1345 ml Balance -675 ml -905 ml IV Total 55 ml Tube Feeding 440 ml 440 ml Output Urine Total 1070 ml 1345 ml Stool Total 100 ml # Bowel Movements 2 Current Medications Medications (Trade) Dose Ordered Sig/Yolanda Route PRN Reason Start Time Stop Time Status Last Admin Dose Admin Acetaminophen (Tylenol) 650 mg Q4H PRN ORAL Pain Scale (6-10) 10/17/20 19:15 11/16/20 19:14 Acetaminophen (Tylenol) 650 mg Q6H PRN GT Mild Pain (Pain Scale 1-3) 11/04/20 10:45 12/04/20 10:44 11/04/20 18:20 Acetaminophen (Tylenol) 650 mg Q6H PRN GT Temp >100.5 11/04/20 10:45 12/04/20 10:44 Apixaban (Eliquis) 2.5 mg BID ORAL 10/24/20 18:00 01/22/21 17:59 11/05/20 08:20 Chlorhexidine Gluconate (Eve-Hex 2%) 1 applic DAILY@1999 TOPIC 10/22/20 20:00 01/20/21 19:59 11/04/20 20:18 Digoxin (Lanoxin) 0.125 mg DAILY GT 10/30/20 09:00 01/28/21 08:59 11/05/20 08:20 Furosemide (Lasix) 40 mg EVERY 12 HOURS IV 11/04/20 09:00 12/04/20 08:59 11/05/20 08:21 Haloperidol Lactate 5 mg/ Dextrose 56 ml @ 224 mls/hr Q6H PRN IVPB Agitation 11/04/20 20:30 12/19/20 20:29 11/04/20 21:42 Levothyroxine Sodium (Synthroid) 50 mcg DAILY@0630 ORAL 10/19/20 06:30 11/18/20 06:29 11/05/20 05:59 Meropenem 500 mg/ Sodium Chloride 55 ml @ 110 mls/hr EVERY 12 HOURS IVPB 11/04/20 13:00 11/09/20 12:59 11/05/20 08:21 Norepinephrine Bitartrate 250 ml @ 0 mls/hr Q24H PRN IV For hypotension 11/04/20 08:37 11/07/20 08:36 Ondansetron HCl (Zofran) 4 mg Q6H PRN IVP Nausea & Vomiting 10/17/20 21:15 11/16/20 21:14 Pantoprazole (Protonix) 40 mg Q12HR IVP 11/02/20 21:00 11/25/20 20:59 11/05/20 08:21 Potassium Chloride (K-Dur) 40 meq EVERY 12 HOURS GT 11/04/20 21:00 02/02/21 20:59 11/05/20 08:20 Laboratory Tests 11/05/20 03:30: Digoxin Level 1.1 11/05/20 03:50: White Blood Count 5.4, Red Blood Count 2.91L, Hemoglobin 8.7L, Hematocrit 26.5L, Mean Corpuscular Volume 91, Mean Corpuscular Hemoglobin 30.1, Mean Corpuscular Hemoglobin Concent 33.1, Red Cell Distribution Width 18.7H, Platelet Count 157, Mean Platelet Volume 8.3, Neutrophils (%) (Auto) , Lymphocytes (%) (Auto) , Monocytes (%) (Auto) , Eosinophils (%) (Auto) , Basophils (%) (Auto) , Differential Total Cells Counted 100, Neutrophils % (Manual) 83H, Lymphocytes % (Manual) 11L, Monocytes % (Manual) 5, Eosinophils % (Manual) 1, Basophils % (Manual) 0, Band Neutrophils 0, Platelet Estimate Adequate, Platelet Morphology Normal, Hypochromasia 1+, Anisocytosis 1+, Sodium Level 144, Potassium Level 3.7, Chloride Level 109H, Carbon Dioxide Level 25, Anion Gap 10, Blood Urea Nitrogen 51H, Creatinine 2.2H, Estimat Glomerular Filtration Rate 21.3, Glucose Level 120H, Calcium Level 8.0L, Phosphorus Level 2.7, Magnesium Level 1.8, Total Bilirubin 0.4, Aspartate Amino Transf (AST/SGOT) 10L, Alanine Aminotransferase (ALT/SGPT) 7L, Alkaline Phosphatase 68, C-Reactive Protein, Quantitative 15.6H, Pro-B-Type Natriuretic Peptide > [id number], Total Protein 4.6L, Albumin 1.7L, Globulin 2.9, Albumin/Globulin Ratio 0.6L 11/05/20 10:50: Arterial Blood pH 7.366, Arterial Blood Partial Pressure CO2 45.6H, Arterial Blood Partial Pressure O2 110.8H, Arterial Blood HCO3 25.5, Arterial Blood Oxygen Saturation 97.4, Arterial Blood Base Excess 0, Gallo Test Positive Height (Feet): 5 Height (Inches): 0.00 Weight (Pounds): 145 General Appearance: no apparent distress, other - Awake and responsive EENT: other - Intubated on ventilator Cardiovascular: normal rate Respiratory/Chest: decreased breath sounds Abdomen: distended Dustin Gómez MD Nov 05, 2020 14:38
--- NOTE | 2020-11-05 16:00 | NUR ---
NURSE NOTES: Pt tolerating well with O2 40% with cool aerosol with sating 98%. Right arm swelling and edematous. Right arm elevated. Noted dark brown colored liquid bowel movement thru rectal tube. Perineal care provided. Will continue plan of care.
--- NOTE | 2020-11-05 18:00 | NUR ---
NURSE NOTES: Pt in bed awake and oriented,fatigue. No sings of cardiac and respiratory distress noted. IV site in left arm intact and patent.
--- NOTE | 2020-11-05 19:00 | NUR ---
NURSE HAND-OFF REPORT: Latest Vital Signs: Temperature 98.5 , Pulse 89 , B/P 110 /86 , Respiratory Rate 18 , O2 SAT 98 , Simple Mask, O2 Flow Rate 10.0 . Vital Sign Comment: stable EKG Rhythm: Atrial Fibrillation Rhythm change?: N MD Notified?: - MD Response: Latest Elizabeth Fall Score: 70 Fall Risk: High Risk Safety Measures: Call light Within Reach, Bed Alarm Zone 1, Side Rails Side Rails x3, Bed position Low and Locked. Fall Precautions: Yellow Socks Patient Fall Education Report given to SERGIO Jordan.
--- NOTE | 2020-11-05 19:10 | NUR ---
NURSE NOTES: RN received report from day RN. patient in bed resting . Patient was extubated today with a aerosol mask @40%. Patient tolerating the mask with no issues. Vitals stable at this time. RN will continue to monitor.
[2020-11-05] MEDS: Dyna-Hex 2% Top Sol 2oz TOPIC SCH (20:21)
--- NOTE | 2020-11-05 21:09 | General Progress Note ---
Subjective ROS Limited/Unobtainable: Yes Allergies: Coded Allergies: No Known Allergies (Unverified , 10/17/20) Objective Last 24 Hour Vital Signs Date Time Temp Pulse Resp B/P (MAP) Pulse Ox O2 Delivery O2 Flow Rate FiO2 11/05/20 20:06 79 17 89/41 (57) 100 11/05/20 20:00 78 17 71/26 (41) 100 11/05/20 20:00 Mechanical Ventilator 10.0 Cool Aerosol 11/05/20 19:59 100 Cool Aerosol 8.0 35 11/05/20 19:00 89 18 110/86 (94) 98 11/05/20 18:00 84 21 101/44 (63) 100 11/05/20 17:00 82 7 94/57 (69) 100 11/05/20 16:00 98.5 80 19 81/61 (68) 100 11/05/20 16:00 Mechanical Ventilator 10.0 Cool Aerosol 11/05/20 16:00 86 11/05/20 15:00 79 8 133/64 (87) 100 11/05/20 14:10 100 Cool Aerosol 10.0 40 11/05/20 14:10 Mechanical Ventilator 11/05/20 14:10 79 19 100 Cool Aerosol 10.0 40 11/05/20 14:00 75 12 105/52 (69) 100 11/05/20 13:00 70 12 108/59 (75) 100 11/05/20 12:08 Mechanical Ventilator 11/05/20 12:00 72 11/05/20 12:00 98.7 79 12 112/54 (73) 100 11/05/20 11:22 99 11/05/20 11:15 30 11/05/20 11:10 88 27 30 11/05/20 11:00 89 32 144/76 (98) 100 11/05/20 10:05 30 11/05/20 10:00 69 14 121/59 (79) 100 11/05/20 09:00 66 14 120/59 (79) 100 11/05/20 08:20 76 11/05/20 08:00 54 11/05/20 08:00 30 11/05/20 08:00 Endotracheal Tube Endotracheal Tube 11/05/20 08:00 98.3 68 13 115/51 (72) 100 11/05/20 07:55 65 14 30 11/05/20 07:00 71 14 129/49 (75) 100 11/05/20 06:22 77 18 11/05/20 06:00 79 15 140/63 (88) 100 11/05/20 05:30 83 17 143/69 (93) 100 11/05/20 05:00 81 17 143/81 (101) 100 11/05/20 04:30 77 17 131/63 (85) 100 11/05/20 04:13 Endotracheal Tube Endotracheal Tube 11/05/20 04:00 30 11/05/20 04:00 72 15 98/65 (76) 100 11/05/20 04:00 66 11/05/20 03:30 71 15 107/48 (67) 100 11/05/20 03:19 87 13 30 11/05/20 03:00 67 14 91/49 (63) 100 11/05/20 02:30 67 15 105/47 (66) 100 11/05/20 02:00 71 13 113/58 (76) 100 11/05/20 01:30 65 13 92/46 (61) 100 11/05/20 01:00 74 13 101/43 (62) 100 11/05/20 00:30 73 14 95/44 (61) 100 11/05/20 00:00 96 11/05/20 00:00 Endotracheal Tube Endotracheal Tube 11/05/20 00:00 73 14 99/40 (59) 100 11/05/20 00:00 30 11/04/20 23:30 75 15 91/39 (56) 100 11/04/20 23:14 85 14 30 11/04/20 23:00 81 15 112/47 (68) 100 11/04/20 22:30 75 14 97/58 (71) 99 11/04/20 22:00 85 15 99/44 (62) 100 11/04/20 22:00 85 15 99/44 (62) 100 11/04/20 21:30 95 19 157/79 (105) 100 Intake and Output 11/04/20 11/05/20 19:00 07:00 Intake Total 495 ml 440 ml Output Total 1170 ml 1345 ml Balance -675 ml -905 ml IV Total 55 ml Tube Feeding 440 ml 440 ml Output Urine Total 1070 ml 1345 ml Stool Total 100 ml # Bowel Movements 2 Laboratory Tests 11/05/20 03:30: Digoxin Level 1.1 11/05/20 03:50: White Blood Count 5.4, Red Blood Count 2.91L, Hemoglobin 8.7L, Hematocrit 26.5L, Mean Corpuscular Volume 91, Mean Corpuscular Hemoglobin 30.1, Mean Corpuscular Hemoglobin Concent 33.1, Red Cell Distribution Width 18.7H, Platelet Count 157, Mean Platelet Volume 8.3, Neutrophils (%) (Auto) , Lymphocytes (%) (Auto) , Monocytes (%) (Auto) , Eosinophils (%) (Auto) , Basophils (%) (Auto) , Differential Total Cells Counted 100, Neutrophils % (Manual) 83H, Lymphocytes % (Manual) 11L, Monocytes % (Manual) 5, Eosinophils % (Manual) 1, Basophils % (Manual) 0, Band Neutrophils 0, Platelet Estimate Adequate, Platelet Morphology Normal, Hypochromasia 1+, Anisocytosis 1+, Sodium Level 144, Potassium Level 3.7, Chloride Level 109H, Carbon Dioxide Level 25, Anion Gap 10, Blood Urea Nitrogen 51H, Creatinine 2.2H, Estimat Glomerular Filtration Rate 21.3, Glucose Level 120H, Calcium Level 8.0L, Phosphorus Level 2.7, Magnesium Level 1.8, Total Bilirubin 0.4, Aspartate Amino Transf (AST/SGOT) 10L, Alanine Aminotransferase (ALT/SGPT) 7L, Alkaline Phosphatase 68, C-Reactive Protein, Quantitative 15.6H, Pro-B-Type Natriuretic Peptide > 98316L, Total Protein 4.6L, Albumin 1.7L, Globulin 2.9, Albumin/Globulin Ratio 0.6L 11/05/20 10:50: Arterial Blood pH 7.366, Arterial Blood Partial Pressure CO2 45.6H, Arterial Blood Partial Pressure O2 110.8H, Arterial Blood HCO3 25.5, Arterial Blood Oxygen Saturation 97.4, Arterial Blood Base Excess 0, Gallo Test Positive 11/05/20 18:04: POC Whole Blood Glucose 87 Height (Feet): 5 Height (Inches): 0.00 Weight (Pounds): 145 Assessment/Plan Problem List: (1) Anemia ICD Codes: D64.9 - Anemia, unspecified SNOMED: 706216727 (2) Acute kidney injury ICD Codes: N17.9 - Acute kidney failure, unspecified SNOMED: 97577258, 1760694 (3) Atrial fibrillation ICD Codes: I48.91 - Unspecified atrial fibrillation SNOMED: 13225088 (4) Elevated troponin ICD Codes: R77.8 - Other specified abnormalities of plasma proteins SNOMED: 233656514, 933916850, 362608611 (5) Malnutrition ICD Codes: E46 - Unspecified protein-calorie malnutrition SNOMED: 40417542 (6) Pneumonia due to COVID-19 virus ICD Codes: U07.1 - COVID-19; J12.82 - Pneumonia due to coronavirus disease 2019 SNOMED: 055878983650044136 (7) Hypothyroidism ICD Codes: E03.9 - Hypothyroidism, unspecified SNOMED: 48379646 Status: progressing Assessment/Plan: chf trying to wean more alert intubated resp failure pna sepsis reviewed chart and lab arrythmia Neri Dumont MD Nov 05, 2020 21:09
--- NOTE | 2020-11-05 21:45 | NUR ---
NURSE NOTES: patient resting in bed. Patient alert and oriented x2. Patient lethargic but arouses to light pain. Patient tolerating o2 mask. Patient decreased to 28%. Patient repositioned for comfort. RN will continue to monitor.
--- NOTE | 2020-11-05 23:40 | NUR ---
NURSE NOTES: Patient vitals stable at this time. Patient resting. patient repositioned. Oral care completed. Patient blood sugar 95. RN will continue to monitor.
[2020-11-06] VITALS (24 sets, daily range): BP systolic 94–143; BP diastolic 38–94
--- NOTE | 2020-11-06 01:20 | NUR ---
NURSE NOTES: Patient resting in bed. patient repositioned. Patient denies pain. Patient more awake. Rn will continue to monitor.
--- NOTE | 2020-11-06 03:22 | NUR ---
NURSE NOTES: Patient vitals stable at this time. patient bathed and repositioned. patient awake. Patient denies pain. RN will continue to monitor.
[2020-11-06 05:07] LABS: HEMATOCRIT 29.9 % (37.0-47.0); HEMOGLOBIN 9.6 G/DL (12.0-16.0); MEAN CORPUSCULAR VOLUME 93 FL (80-99); PLATELET COUNT 187 K/UL (150-450); RED BLOOD COUNT 3.23 M/UL (4.20-5.40); RED CELL DISTRIBUTION WIDTH 19.1 % (11.6-14.8); WHITE BLOOD COUNT 6.7 K/UL (4.8-10.8)
--- NOTE | 2020-11-06 06:34 | Hematology/Onc Progress Note ---
Assessment/Plan Assessment/Plan Assessment and recs # Anemia r/o gi bleed --> anemia panel has been ordered-->reviewed --> hgb 8.1->9.3->9.7-->9.5-->10.5-->10.2-->9.1->8.6-->7.8-->8.1-->9.2-->8.7 --> no hemolysis is noted --> transfuse on prn basis --> 1 unit prbc 10/30 # Thrombocytopenia likely due to reactive process --> plt 138-->149-->176-->162 --> imaging prn --> smear has been reviewed --> viral w/u neg # Hypercoag disorder with Atrial fibrillation --> consider anticoag as per cards --> if bleeding, consider hold anticoag # Elevated trop --> per cards # Hyperkalemia --> per renal # Acute kidney injury --> per renal # Resp failure on bipap # Recently COVID-19 positive # Dvt ppx scds --> lovenox sq Appreciate consultation and rosio eugene Subjective Allergies: Coded Allergies: No Known Allergies (Unverified , 10/17/20) All Systems: reviewed and negative except above Subjective 10/19 cbc is pending, did get blood transfusion last night, pending results 10/20 meds noted, no bleeding, labs reviewed, rosio rn, no new changes 10/21 on 4l nc, has been refusing labs, meds noted, no bleeding 10/22 nc, refusing meds labs reviewed, rosio rn 10/23 is potentially for egd this am, no bleeding, cbc is noted 10/25 meds noted, no bleeidng, is on nc, no night sweats, bp bolus pending 10/26 bed bath done, meds noted, no bleeding, cbc reviewed from am 10/27 lethargic, on bipap, levophed, meds reviewed 10/28 icu, lethargic, remains on bipap, pressors 10/29 icu, lethargic, meds noted, on bipap, labs noted 10/30 icu, bipap, to get 1 unit prbc, meds reviewed, labs noted 10/31 icu, on vent, no bipap 11/01: remains in icu, no bleeding reported 11/02 icu, lethargic, on vent, with gt feeds on hold, labs noted 11/03 icu, intubated on vent, lethargic, labs reviewed, meds noted 11/04 icu, remains intuabted is on vent, lethargic, labs reviewed 11/05 icu, nv, on vent, lethargic, labs noted 11/06 icu, extubated, is on simple mask, meds noted Objective Objective Current Medications Medications (Trade) Dose Ordered Sig/Yolanda Route PRN Reason Start Time Stop Time Status Last Admin Dose Admin Acetaminophen (Tylenol) 650 mg Q4H PRN ORAL Pain Scale (6-10) 10/17/20 19:15 11/16/20 19:14 Acetaminophen (Tylenol) 650 mg Q6H PRN GT Mild Pain (Pain Scale 1-3) 11/04/20 10:45 12/04/20 10:44 11/04/20 18:20 Acetaminophen (Tylenol) 650 mg Q6H PRN GT Temp >100.5 11/04/20 10:45 12/04/20 10:44 Apixaban (Eliquis) 2.5 mg BID ORAL 10/24/20 18:00 01/22/21 17:59 11/05/20 17:50 Chlorhexidine Gluconate (Eve-Hex 2%) 1 applic DAILY@2000 TOPIC 10/22/20 20:00 01/20/21 19:59 11/05/20 20:21 Digoxin (Lanoxin) 0.125 mg DAILY GT 10/30/20 09:00 01/28/21 08:59 11/05/20 08:20 Furosemide (Lasix) 40 mg EVERY 12 HOURS IV 11/04/20 09:00 12/04/20 08:59 11/05/20 20:22 Haloperidol Lactate 5 mg/ Dextrose 56 ml @ 224 mls/hr Q6H PRN IVPB Agitation 11/04/20 20:30 12/19/20 20:29 11/04/20 21:42 Levothyroxine Sodium (Synthroid) 50 mcg DAILY@0630 ORAL 10/19/20 06:30 11/18/20 06:29 11/06/20 06:07 Meropenem 500 mg/ Sodium Chloride 55 ml @ 110 mls/hr EVERY 12 HOURS IVPB 11/04/20 13:00 11/09/20 12:59 11/05/20 20:22 Norepinephrine Bitartrate 250 ml @ 0 mls/hr Q24H PRN IV For hypotension 11/04/20 08:37 11/07/20 08:36 Ondansetron HCl (Zofran) 4 mg Q6H PRN IVP Nausea & Vomiting 10/17/20 21:15 11/16/20 21:14 Pantoprazole (Protonix) 40 mg Q12HR IVP 11/02/20 21:00 11/25/20 20:59 11/05/20 20:22 Potassium Chloride (K-Dur) 40 meq EVERY 12 HOURS GT 11/04/20 21:00 02/02/21 20:59 11/05/20 20:21 Last 24 Hour Vital Signs Date Time Temp Pulse Resp B/P (MAP) Pulse Ox O2 Delivery O2 Flow Rate FiO2 11/06/20 06:22 68 18 11/06/20 06:00 95 27 133/77 (95) 99 11/06/20 05:00 82 17 127/65 (85) 100 11/06/20 04:00 81 11/06/20 04:00 Mechanical Ventilator 10.0 Cool Aerosol 11/06/20 04:00 80 22 100/50 (67) 99 11/06/20 03:00 75 15 111/61 (78) 99 11/06/20 02:00 80 17 117/57 (77) 100 11/06/20 01:14 99 Cool Aerosol 5.0 28 11/06/20 01:00 76 16 116/47 (70) 100 11/06/20 00:00 Mechanical Ventilator 10.0 Cool Aerosol 11/06/20 00:00 85 7 133/75 (94) 100 11/06/20 00:00 85 7 133/75 (94) 100 11/06/20 00:00 74 11/05/20 23:00 71 15 106/56 (73) 100 11/05/20 22:00 76 16 107/55 (72) 100 11/05/20 21:00 82 17 113/54 (73) 11/05/20 20:37 82 19 106/66 (79) 11/05/20 20:34 78 16 88/72 (77) 100 11/05/20 20:32 76 16 81/16 (37) 100 11/05/20 20:06 79 17 89/41 (57) 100 11/05/20 20:00 78 17 71/26 (41) 100 11/05/20 20:00 68 11/05/20 20:00 Mechanical Ventilator 10.0 Cool Aerosol 11/05/20 19:59 100 Cool Aerosol 8.0 35 11/05/20 19:00 89 18 110/86 (94) 98 11/05/20 18:00 84 21 101/44 (63) 100 11/05/20 17:00 82 7 94/57 (69) 100 11/05/20 16:00 98.5 80 19 81/61 (68) 100 11/05/20 16:00 Mechanical Ventilator 10.0 Cool Aerosol 11/05/20 16:00 86 11/05/20 15:00 79 8 133/64 (87) 100 11/05/20 14:10 100 Cool Aerosol 10.0 40 11/05/20 14:10 Mechanical Ventilator 11/05/20 14:10 79 19 100 Cool Aerosol 10.0 40 11/05/20 14:00 75 12 105/52 (69) 100 11/05/20 13:00 70 12 108/59 (75) 100 11/05/20 12:08 Mechanical Ventilator 11/05/20 12:00 72 11/05/20 12:00 98.7 79 12 112/54 (73) 100 11/05/20 11:22 99 11/05/20 11:15 30 11/05/20 11:10 88 27 30 11/05/20 11:00 89 32 144/76 (98) 100 11/05/20 10:05 30 11/05/20 10:00 69 14 121/59 (79) 100 11/05/20 09:00 66 14 120/59 (79) 100 11/05/20 08:20 76 11/05/20 08:00 54 11/05/20 08:00 30 11/05/20 08:00 Endotracheal Tube Endotracheal Tube 11/05/20 08:00 98.3 68 13 115/51 (72) 100 11/05/20 07:55 65 14 30 11/05/20 07:00 71 14 129/49 (75) 100 11/05/20 06:22 77 18 11/05/20 06:00 79 15 140/63 (88) 100 11/05/20 05:30 83 17 143/69 (93) 100 11/05/20 05:00 81 17 143/81 (101) 100 11/05/20 04:30 77 17 131/63 (85) 100 11/05/20 04:13 Endotracheal Tube Endotracheal Tube 11/05/20 04:00 30 11/05/20 04:00 72 15 98/65 (76) 100 11/05/20 04:00 66 11/05/20 03:30 71 15 107/48 (67) 100 11/05/20 03:19 87 13 30 11/05/20 03:00 67 14 91/49 (63) 100 11/05/20 02:30 67 15 105/47 (66) 100 11/05/20 02:00 71 13 113/58 (76) 100 11/05/20 01:30 65 13 92/46 (61) 100 11/05/20 01:00 74 13 101/43 (62) 100 11/05/20 00:30 73 14 95/44 (61) 100 11/05/20 00:00 96 11/05/20 00:00 Endotracheal Tube Endotracheal Tube 11/05/20 00:00 73 14 99/40 (59) 100 11/05/20 00:00 30 11/04/20 23:30 75 15 91/39 (56) 100 11/04/20 23:14 85 14 30 11/04/20 23:00 81 15 112/47 (68) 100 11/04/20 22:30 75 14 97/58 (71) 99 11/04/20 22:00 85 15 99/44 (62) 100 11/04/20 22:00 85 15 99/44 (62) 100 11/04/20 21:30 95 19 157/79 (105) 100 11/04/20 21:00 95 20 100 11/04/20 20:30 97 20 103/71 (82) 100 11/04/20 20:00 87 11/04/20 20:00 30 11/04/20 20:00 Endotracheal Tube Endotracheal Tube 11/04/20 20:00 91 18 138/111 (120) 100 11/04/20 19:30 94 18 161/67 (98) 100 11/04/20 19:19 101 21 30 3/10/21 19:00 91 20 139/72 (94) 100 11/04/20 18:00 99 20 138/73 (94) 100 11/04/20 17:00 93 19 132/101 (111) 100 11/04/20 16:37 93 18 30 11/04/20 16:00 Endotracheal Tube Endotracheal Tube 11/04/20 16:00 98.2 95 20 163/88 (113) 100 11/04/20 16:00 30 11/04/20 15:13 102 11/04/20 15:00 90 21 145/72 (96) 100 11/04/20 14:58 99 18 30 11/04/20 14:00 99 23 125/65 (85) 98 11/04/20 13:00 78 18 30 11/04/20 13:00 91 18 148/74 (98) 98 11/04/20 12:00 93 11/04/20 12:00 30 11/04/20 12:00 97.5 92 13 129/66 (87) 96 11/04/20 12:00 Endotracheal Tube Endotracheal Tube 11/04/20 11:08 100 11/04/20 11:03 107 25 30 11/04/20 11:00 92 20 145/65 (91) 97 11/04/20 10:00 91 13 152/87 (108) 96 11/04/20 09:30 94 22 140/74 (96) 99 11/04/20 09:14 92 13 30 11/04/20 09:01 83 11/04/20 09:00 86 15 128/75 (92) 99 11/04/20 08:00 Endotracheal Tube Endotracheal Tube 11/04/20 08:00 30 11/04/20 08:00 97.9 87 14 136/94 (108) 97 11/04/20 07:32 89 11/04/20 07:28 92 24 30 11/04/20 07:00 88 18 135/70 (91) 98 Intake and Output 11/05/20 11/06/20 19:00 07:00 Intake Total 550 ml 440 ml Output Total 1555 ml 1595 ml Balance -1005 ml -1155 ml IV Total 110 ml Tube Feeding 440 ml 440 ml Output Urine Total 1555 ml 1515 ml Stool Total 80 ml Labs Test 11/04/20 00:10 11/04/20 04:05 11/04/20 12:43 11/04/20 18:06 POC Whole Blood Glucose 115 MG/DL (74-106) 106 MG/DL (74-106) 92 MG/DL (74-106) White Blood Count 6.5 K/UL (4.8-10.8) Red Blood Count 3.14 M/UL (4.20-5.40) Hemoglobin 9.2 G/DL (12.0-16.0) Hematocrit 28.4 % (37.0-47.0) Mean Corpuscular Volume 91 FL (80-99) Mean Corpuscular Hemoglobin 29.2 PG (27.0-31.0) Mean Corpuscular Hemoglobin Concent 32.3 G/DL (32.0-36.0) Red Cell Distribution Width 18.7 % (11.6-14.8) Platelet Count 164 K/UL (150-450) Mean Platelet Volume 8.4 FL (6.5-10.1) Neutrophils (%) (Auto) % (45.0-75.0) Lymphocytes (%) (Auto) % (20.0-45.0) Monocytes (%) (Auto) % (1.0-10.0) Eosinophils (%) (Auto) % (0.0-3.0) Basophils (%) (Auto) % (0.0-2.0) Differential Total Cells Counted 100 Neutrophils % (Manual) 78 % (45-75) Lymphocytes % (Manual) 15 % (20-45) Monocytes % (Manual) 3 % (1-10) Eosinophils % (Manual) 1 % (0-3) Basophils % (Manual) 0 % (0-2) Band Neutrophils 3 % (0-8) Platelet Estimate Adequate Platelet Morphology Normal Hypochromasia 1+ Anisocytosis 1+ Sodium Level 141 MMOL/L (136-145) Potassium Level 3.4 MMOL/L (3.5-5.1) Chloride Level 107 MMOL/L (98-107) Carbon Dioxide Level 24 MMOL/L (21-32) Anion Gap 10 mmol/L (5-15) Blood Urea Nitrogen 52 mg/dL (7-18) Creatinine 2.3 MG/DL (0.55-1.30) Estimat Glomerular Filtration Rate 20.3 mL/min (>60) Glucose Level 95 MG/DL (74-106) Uric Acid 7.9 MG/DL (2.6-7.2) Calcium Level 8.1 MG/DL (8.5-10.1) Phosphorus Level 2.9 MG/DL (2.5-4.9) Magnesium Level 1.8 MG/DL (1.8-2.4) Total Bilirubin 0.4 MG/DL (0.2-1.0) Aspartate Amino Transf (AST/SGOT) 13 U/L (15-37) Alanine Aminotransferase (ALT/SGPT) 12 U/L (12-78) Alkaline Phosphatase 69 U/L (46-116) C-Reactive Protein, Quantitative 17.7 mg/dL (0.00-0.90) Pro-B-Type Natriuretic Peptide > 49301 pg/mL (0-125) Total Protein 4.9 G/DL (6.4-8.2) Albumin 1.8 G/DL (3.4-5.0) Globulin 3.1 g/dL Albumin/Globulin Ratio 0.6 (1.0-2.7) Test 11/05/20 03:30 11/05/20 03:50 11/05/20 10:50 11/05/20 18:04 Digoxin Level 1.1 NG/ML (0.9-2.0) White Blood Count 5.4 K/UL (4.8-10.8) Red Blood Count 2.91 M/UL (4.20-5.40) Hemoglobin 8.7 G/DL (12.0-16.0) Hematocrit 26.5 % (37.0-47.0) Mean Corpuscular Volume 91 FL (80-99) Mean Corpuscular Hemoglobin 30.1 PG (27.0-31.0) Mean Corpuscular Hemoglobin Concent 33.1 G/DL (32.0-36.0) Red Cell Distribution Width 18.7 % (11.6-14.8) Platelet Count 157 K/UL (150-450) Mean Platelet Volume 8.3 FL (6.5-10.1) Neutrophils (%) (Auto) % (45.0-75.0) Lymphocytes (%) (Auto) % (20.0-45.0) Monocytes (%) (Auto) % (1.0-10.0) Eosinophils (%) (Auto) % (0.0-3.0) Basophils (%) (Auto) % (0.0-2.0) Differential Total Cells Counted 100 Neutrophils % (Manual) 83 % (45-75) Lymphocytes % (Manual) 11 % (20-45) Monocytes % (Manual) 5 % (1-10) Eosinophils % (Manual) 1 % (0-3) Basophils % (Manual) 0 % (0-2) Band Neutrophils 0 % (0-8) Platelet Estimate Adequate Platelet Morphology Normal Hypochromasia 1+ Anisocytosis 1+ Sodium Level 144 MMOL/L (136-145) Potassium Level 3.7 MMOL/L (3.5-5.1) Chloride Level 109 MMOL/L (98-107) Carbon Dioxide Level 25 MMOL/L (21-32) Anion Gap 10 mmol/L (5-15) Blood Urea Nitrogen 51 mg/dL (7-18) Creatinine 2.2 MG/DL (0.55-1.30) Estimat Glomerular Filtration Rate 21.3 mL/min (>60) Glucose Level 120 MG/DL (74-106) Calcium Level 8.0 MG/DL (8.5-10.1) Phosphorus Level 2.7 MG/DL (2.5-4.9) Magnesium Level 1.8 MG/DL (1.8-2.4) Total Bilirubin 0.4 MG/DL (0.2-1.0) Aspartate Amino Transf (AST/SGOT) 10 U/L (15-37) Alanine Aminotransferase (ALT/SGPT) 7 U/L (12-78) Alkaline Phosphatase 68 U/L (46-116) C-Reactive Protein, Quantitative 15.6 mg/dL (0.00-0.90) Pro-B-Type Natriuretic Peptide > 87563 pg/mL (0-125) Total Protein 4.6 G/DL (6.4-8.2) Albumin 1.7 G/DL (3.4-5.0) Globulin 2.9 g/dL Albumin/Globulin Ratio 0.6 (1.0-2.7) Arterial Blood pH 7.366 (7.350-7.450) Arterial Blood Partial Pressure CO2 45.6 mmHg (35.0-45.0) Arterial Blood Partial Pressure O2 110.8 mmHg (75.0-100.0) Arterial Blood HCO3 25.5 mmol/L (22.0-26.0) Arterial Blood Oxygen Saturation 97.4 % (95-100) Arterial Blood Base Excess 0 (-2-2) Gallo Test Positive POC Whole Blood Glucose 87 MG/DL (74-106) Test 11/06/20 03:40 White Blood Count 6.7 K/UL (4.8-10.8) Red Blood Count 3.23 M/UL (4.20-5.40) Hemoglobin 9.6 G/DL (12.0-16.0) Hematocrit 29.9 % (37.0-47.0) Mean Corpuscular Volume 93 FL (80-99) Mean Corpuscular Hemoglobin 29.7 PG (27.0-31.0) Mean Corpuscular Hemoglobin Concent 32.0 G/DL (32.0-36.0) Red Cell Distribution Width 19.1 % (11.6-14.8) Platelet Count 187 K/UL (150-450) Mean Platelet Volume 8.1 FL (6.5-10.1) Neutrophils (%) (Auto) % (45.0-75.0) Lymphocytes (%) (Auto) % (20.0-45.0) Monocytes (%) (Auto) % (1.0-10.0) Eosinophils (%) (Auto) % (0.0-3.0) Basophils (%) (Auto) % (0.0-2.0) Height (Feet): 5 Height (Inches): 0.00 Weight (Pounds): 145 Objective Physical Exam General: Awake and alert, no acute distress HEENT: NC/AT. EOMI. Cardiovascular: Irregularly irregular rhythm. Resp: Normal work of breathing. ++simple face mask Abdomen: Abdomen is soft, nondistended. Nontender Skin: Intact. No abrasions, laceration or rash over the exposed skin MSK: Normal tone and bulk. Moving all extremities. Neuro: Awake and alert. Mentating appropriately. Hawk Ma MD Nov 06, 2020 06:34
--- NOTE | 2020-11-06 06:57 | NUR ---
NURSE HAND-OFF REPORT: Latest Vital Signs: Temperature 98.5 , Pulse 95 , B/P 133 /77 , Respiratory Rate 27 , O2 SAT 99 , Simple Mask, O2 Flow Rate 10.0 . Vital Sign Comment: EKG Rhythm: Atrial Fibrillation Rhythm change?: N MD Notified?: - MD Response: Latest Elizabeth Fall Score: 70 Fall Risk: High Risk Safety Measures: Call light Within Reach, Bed Alarm Zone 1, Side Rails Side Rails x3, Bed position Low and Locked. Fall Precautions: Yellow Socks Patient Fall Education Report given to .
--- NOTE | 2020-11-06 07:00 | NUR ---
RESPIRATORY NOTE: Received pt on cool aerosol 5L 28% fio2. SPO2 98%. Bilateral b/s diminished throughout with equal chest rise. No s/s of respiratory distress at this time. ABG to be drawn. Will continue to monitor.
--- NOTE | 2020-11-06 07:19 | NUR ---
NURSE NOTES: Received report from SERGIO Jordan. Patient asleep and responsive to verbal, open her eyes. Patient is on oxygen 5L/min via simple mask. O2 sat 99% on the monitor. GT intact and running with Nepro 40ml/hr. Green intact and draining with yellow color urine. Left subclavian TLC intact and running with TKO. Kept dry, clean and comfortable. Will continue martinez of care.
[2020-11-06] MEDS: Pantoprazole Inj IVP SCH ×2 (08:21→21:40)
[2020-11-06] MEDS: Digoxin 0.125mg tab GT SCH (08:21)
[2020-11-06] MEDS: Eliquis 2.5mg tablet ORAL SCH ×2 (08:22→17:19)
[2020-11-06] MEDS: Meropenem 500 MG in NS 55 ML IVPB SCH (08:22)
--- NOTE | 2020-11-06 09:15 | NUR ---
RESPIRATORY NOTE: Placed Pt on 2L nasal cannula. SpO2 100% Owen RN aware. Will continue to monitor.
--- NOTE | 2020-11-06 09:37 | Infectious Diseases Prog Note ---
Assessment/Plan Assessment/Plan IMPRESSION: Pneumonia with Pseudomonas Hypercapnic respiratory failure Recent history of COVID disease, Acute renal failure, Aortic stenosis Atrial fibrillation, hypothyroidism, Anemia. Chronic DVT of R leg Hypotension Gastrostomy status Respiratory acidosis Left pleural effusion RECOMMENDATION: Change Meropenem to Levaquin Subjective ROS Limited/Unobtainable: Yes Respiratory: Reports: other - extubated Allergies: Coded Allergies: No Known Allergies (Unverified , 10/17/20) Objective Last 24 Hour Vital Signs Date Time Temp Pulse Resp B/P (MAP) Pulse Ox O2 Delivery O2 Flow Rate FiO2 11/06/20 09:14 100 Nasal Cannula 2.0 28 11/06/20 08:21 99 11/06/20 07:46 98 Cool Aerosol 5.0 28 11/06/20 06:22 68 18 11/06/20 06:00 95 27 133/77 (95) 99 11/06/20 05:00 82 17 127/65 (85) 100 11/06/20 04:00 81 11/06/20 04:00 Mechanical Ventilator 10.0 Cool Aerosol 11/06/20 04:00 80 22 100/50 (67) 99 11/06/20 03:00 75 15 111/61 (78) 99 11/06/20 02:00 80 17 117/57 (77) 100 11/06/20 01:14 99 Cool Aerosol 5.0 28 11/06/20 01:00 76 16 116/47 (70) 100 11/06/20 00:00 Mechanical Ventilator 10.0 Cool Aerosol 11/06/20 00:00 85 7 133/75 (94) 100 11/06/20 00:00 85 7 133/75 (94) 100 11/06/20 00:00 74 11/05/20 23:00 71 15 106/56 (73) 100 11/05/20 22:00 76 16 107/55 (72) 100 11/05/20 21:00 82 17 113/54 (73) 11/05/20 20:37 82 19 106/66 (79) 11/05/20 20:34 78 16 88/72 (77) 100 11/05/20 20:32 76 16 81/16 (37) 100 11/05/20 20:06 79 17 89/41 (57) 100 11/05/20 20:00 78 17 71/26 (41) 100 11/05/20 20:00 68 11/05/20 20:00 Mechanical Ventilator 10.0 Cool Aerosol 11/05/20 19:59 100 Cool Aerosol 8.0 35 11/05/20 19:00 89 18 110/86 (94) 98 11/05/20 18:00 84 21 101/44 (63) 100 11/05/20 17:00 82 7 94/57 (69) 100 11/05/20 16:00 98.5 80 19 81/61 (68) 100 11/05/20 16:00 Mechanical Ventilator 10.0 Cool Aerosol 11/05/20 16:00 86 11/05/20 15:00 79 8 133/64 (87) 100 11/05/20 14:10 100 Cool Aerosol 10.0 40 11/05/20 14:10 Mechanical Ventilator 11/05/20 14:10 79 19 100 Cool Aerosol 10.0 40 11/05/20 14:00 75 12 105/52 (69) 100 11/05/20 13:00 70 12 108/59 (75) 100 11/05/20 12:08 Mechanical Ventilator 11/05/20 12:00 72 11/05/20 12:00 98.7 79 12 112/54 (73) 100 11/05/20 11:22 99 11/05/20 11:15 30 11/05/20 11:10 88 27 30 11/05/20 11:00 89 32 144/76 (98) 100 11/05/20 10:05 30 11/05/20 10:00 69 14 121/59 (79) 100 Height (Feet): 5 Height (Inches): 0.00 Weight (Pounds): 145 General Appearance: no acute distress HEENT: mucous membranes moist Respiratory/Chest: lungs clear, other - O2 by nasal cannula Cardiovascular: normal rate Abdomen: soft, non tender, other - GT feeding Extremities: other Neurologic/Psychiatric: other - sleeping Laboratory Tests Test 11/05/20 10:50 11/05/20 18:04 11/06/20 03:40 11/06/20 08:54 Arterial Blood pH 7.366 (7.350-7.450) 7.263 (7.350-7.450) Arterial Blood Partial Pressure CO2 45.6 mmHg (35.0-45.0) H 64.5 mmHg (35.0-45.0) *H Arterial Blood Partial Pressure O2 110.8 mmHg (75.0-100.0) H 78.3 mmHg (75.0-100.0) Arterial Blood HCO3 25.5 mmol/L (22.0-26.0) 28.5 mmol/L (22.0-26.0) H Arterial Blood Oxygen Saturation 97.4 % (95-100) 94.8 % (95-100) L Arterial Blood Base Excess 0 (-2-2) 0.4 (-2-2) Gallo Test Positive Positive POC Whole Blood Glucose 87 MG/DL (74-106) White Blood Count 6.7 K/UL (4.8-10.8) Red Blood Count 3.23 M/UL (4.20-5.40) L Hemoglobin 9.6 G/DL (12.0-16.0) L Hematocrit 29.9 % (37.0-47.0) L Mean Corpuscular Volume 93 FL (80-99) Mean Corpuscular Hemoglobin 29.7 PG (27.0-31.0) Mean Corpuscular Hemoglobin Concent 32.0 G/DL (32.0-36.0) Red Cell Distribution Width 19.1 % (11.6-14.8) H Platelet Count 187 K/UL (150-450) Mean Platelet Volume 8.1 FL (6.5-10.1) Neutrophils (%) (Auto) % (45.0-75.0) Lymphocytes (%) (Auto) % (20.0-45.0) Monocytes (%) (Auto) % (1.0-10.0) Eosinophils (%) (Auto) % (0.0-3.0) Basophils (%) (Auto) % (0.0-2.0) Differential Total Cells Counted 100 Neutrophils % (Manual) 90 % (45-75) H Lymphocytes % (Manual) 6 % (20-45) L Monocytes % (Manual) 4 % (1-10) Eosinophils % (Manual) 0 % (0-3) Basophils % (Manual) 0 % (0-2) Band Neutrophils 0 % (0-8) Platelet Estimate Adequate Platelet Morphology Normal Red Blood Cell Morphology Hypochromasia 1+ Anisocytosis 1+ Current Medications Medications (Trade) Dose Ordered Sig/Yolanda Route PRN Reason Start Time Stop Time Status Last Admin Dose Admin Acetaminophen (Tylenol) 650 mg Q4H PRN ORAL Pain Scale (6-10) 10/17/20 19:15 11/16/20 19:14 Acetaminophen (Tylenol) 650 mg Q6H PRN GT Mild Pain (Pain Scale 1-3) 11/04/20 10:45 12/04/20 10:44 11/04/20 18:20 Acetaminophen (Tylenol) 650 mg Q6H PRN GT Temp >100.5 11/04/20 10:45 12/04/20 10:44 Apixaban (Eliquis) 2.5 mg BID ORAL 10/24/20 18:00 01/22/21 17:59 11/06/20 08:22 Chlorhexidine Gluconate (Eve-Hex 2%) 1 applic DAILY@2000 TOPIC 10/22/20 20:00 01/20/21 19:59 11/05/20 20:21 Digoxin (Lanoxin) 0.125 mg DAILY GT 10/30/20 09:00 01/28/21 08:59 11/06/20 08:21 Furosemide (Lasix) 40 mg EVERY 12 HOURS IV 11/04/20 09:00 12/04/20 08:59 11/06/20 08:21 Haloperidol Lactate 5 mg/ Dextrose 56 ml @ 224 mls/hr Q6H PRN IVPB Agitation 11/04/20 20:30 12/19/20 20:29 11/04/20 21:42 Levothyroxine Sodium (Synthroid) 50 mcg DAILY@0630 ORAL 10/19/20 06:30 11/18/20 06:29 11/06/20 06:07 Meropenem 500 mg/ Sodium Chloride 55 ml @ 110 mls/hr EVERY 12 HOURS IVPB 11/04/20 13:00 11/09/20 12:59 11/06/20 08:22 Norepinephrine Bitartrate 250 ml @ 0 mls/hr Q24H PRN IV For hypotension 11/04/20 08:37 11/07/20 08:36 Ondansetron HCl (Zofran) 4 mg Q6H PRN IVP Nausea & Vomiting 10/17/20 21:15 11/16/20 21:14 Pantoprazole (Protonix) 40 mg Q12HR IVP 11/02/20 21:00 11/25/20 20:59 11/06/20 08:21 Potassium Chloride (K-Dur) 40 meq EVERY 12 HOURS GT 11/04/20 21:00 02/02/21 20:59 11/06/20 08:20 Luis Alvarado MD Nov 06, 2020 09:37
--- NOTE | 2020-11-06 10:14 | NUR ---
NURSE NOTES: Informed Dr. Woods ABG results. Dr. Woods will be here in 20 Min.
--- NOTE | 2020-11-06 10:25 | Surgery Progress Note ---
Surgery Progress Note Subjective Procedure Performed left subclavian central venous catheter insertion Additional Comments extubated looks comfortable no n/v retaining co2 will monitor Objective Last 24 Hour Vital Signs Date Time Temp Pulse Resp B/P (MAP) Pulse Ox O2 Delivery O2 Flow Rate FiO2 11/06/20 09:30 Mechanical Ventilator 2.0 Nasal Cannula 11/06/20 09:14 100 Nasal Cannula 2.0 28 11/06/20 08:21 99 11/06/20 08:00 Mechanical Ventilator 10.0 Cool Aerosol 11/06/20 07:46 98 Cool Aerosol 5.0 28 11/06/20 06:22 68 18 11/06/20 06:00 95 27 133/77 (95) 99 11/06/20 05:00 82 17 127/65 (85) 100 11/06/20 04:00 81 11/06/20 04:00 Mechanical Ventilator 10.0 Cool Aerosol 11/06/20 04:00 80 22 100/50 (67) 99 11/06/20 03:00 75 15 111/61 (78) 99 11/06/20 02:00 80 17 117/57 (77) 100 11/06/20 01:14 99 Cool Aerosol 5.0 28 11/06/20 01:00 76 16 116/47 (70) 100 11/06/20 00:00 Mechanical Ventilator 10.0 Cool Aerosol 11/06/20 00:00 85 7 133/75 (94) 100 11/06/20 00:00 85 7 133/75 (94) 100 11/06/20 00:00 74 11/05/20 23:00 71 15 106/56 (73) 100 11/05/20 22:00 76 16 107/55 (72) 100 11/05/20 21:00 82 17 113/54 (73) 11/05/20 20:37 82 19 106/66 (79) 11/05/20 20:34 78 16 88/72 (77) 100 11/05/20 20:32 76 16 81/16 (37) 100 11/05/20 20:06 79 17 89/41 (57) 100 11/05/20 20:00 78 17 71/26 (41) 100 11/05/20 20:00 68 11/05/20 20:00 Mechanical Ventilator 10.0 Cool Aerosol 11/05/20 19:59 100 Cool Aerosol 8.0 35 11/05/20 19:00 89 18 110/86 (94) 98 11/05/20 18:00 84 21 101/44 (63) 100 11/05/20 17:00 82 7 94/57 (69) 100 11/05/20 16:00 98.5 80 19 81/61 (68) 100 11/05/20 16:00 Mechanical Ventilator 10.0 Cool Aerosol 11/05/20 16:00 86 11/05/20 15:00 79 8 133/64 (87) 100 11/05/20 14:10 100 Cool Aerosol 10.0 40 11/05/20 14:10 Mechanical Ventilator 11/05/20 14:10 79 19 100 Cool Aerosol 10.0 40 11/05/20 14:00 75 12 105/52 (69) 100 11/05/20 13:00 70 12 108/59 (75) 100 11/05/20 12:08 Mechanical Ventilator 11/05/20 12:00 72 11/05/20 12:00 98.7 79 12 112/54 (73) 100 11/05/20 11:22 99 11/05/20 11:15 30 11/05/20 11:10 88 27 30 11/05/20 11:00 89 32 144/76 (98) 100 I&O Intake and Output0 11/05/20 11/06/20 19:00 07:00 Intake Total 550 ml 440 ml Output Total 1555 ml 1595 ml Balance -1005 ml -1155 ml IV Total 110 ml Tube Feeding 440 ml 440 ml Output Urine Total 1555 ml 1515 ml Stool Total 80 ml Dressing: other Wound: other Cardiovascular: RSR Respiratory: decreased breath sounds Abdomen: soft, non-tender, present bowel sounds, non-distended Extremities: no tenderness, no cyanosis Laboratory Tests Test 11/05/20 10:50 11/05/20 18:04 11/06/20 03:40 11/06/20 08:54 Arterial Blood pH 7.366 (7.350-7.450) 7.263 (7.350-7.450) Arterial Blood Partial Pressure CO2 45.6 mmHg (35.0-45.0) H 64.5 mmHg (35.0-45.0) *H Arterial Blood Partial Pressure O2 110.8 mmHg (75.0-100.0) H 78.3 mmHg (75.0-100.0) Arterial Blood HCO3 25.5 mmol/L (22.0-26.0) 28.5 mmol/L (22.0-26.0) H Arterial Blood Oxygen Saturation 97.4 % (95-100) 94.8 % (95-100) L Arterial Blood Base Excess 0 (-2-2) 0.4 (-2-2) Gallo Test Positive Positive POC Whole Blood Glucose 87 MG/DL (74-106) White Blood Count 6.7 K/UL (4.8-10.8) Red Blood Count 3.23 M/UL (4.20-5.40) L Hemoglobin 9.6 G/DL (12.0-16.0) L Hematocrit 29.9 % (37.0-47.0) L Mean Corpuscular Volume 93 FL (80-99) Mean Corpuscular Hemoglobin 29.7 PG (27.0-31.0) Mean Corpuscular Hemoglobin Concent 32.0 G/DL (32.0-36.0) Red Cell Distribution Width 19.1 % (11.6-14.8) H Platelet Count 187 K/UL (150-450) Mean Platelet Volume 8.1 FL (6.5-10.1) Neutrophils (%) (Auto) % (45.0-75.0) Lymphocytes (%) (Auto) % (20.0-45.0) Monocytes (%) (Auto) % (1.0-10.0) Eosinophils (%) (Auto) % (0.0-3.0) Basophils (%) (Auto) % (0.0-2.0) Differential Total Cells Counted 100 Neutrophils % (Manual) 90 % (45-75) H Lymphocytes % (Manual) 6 % (20-45) L Monocytes % (Manual) 4 % (1-10) Eosinophils % (Manual) 0 % (0-3) Basophils % (Manual) 0 % (0-2) Band Neutrophils 0 % (0-8) Platelet Estimate Adequate Platelet Morphology Normal Red Blood Cell Morphology Hypochromasia 1+ Anisocytosis 1+ Plan Problems: (1) Anemia (2) Acute kidney injury (3) Atrial fibrillation (4) Hyperkalemia (5) Elevated troponin (6) Decubitus skin ulcer Assessment & Plan: Pt presented on admission with Multiple Medical Comorbidities including Covid-19 and Pressure Injuries. Primary Nurse reported Pt has been declining food and medications. Sacral DTPI that is evolving noted to Sacrum(L)6cm x (W)12.5cm.. Scattered Purpuric areas that are indurated noted to R and L cheek. Small wound that is 100% slough (L)0.6cm x (W)0.7cm noted at sacrococcygeal area within base of DTPI. MASD noted to Perineum and skin folds of Medial/posterior aspects of Both upper thighs. Affected areas are erythematous and macerated with scattered satellite lesions. DTPI L Heel (L)3cm x (W)4cm, Base of heel is maroon and fluctuant with small purpuric area (L)0.4cm x (W)0.9cm within base of DTPI. l Foot including toes are mottled and cool to touch. L Heel is boggy. L Heel including toes are Mottled and cool to touch. Tx.Plan: Apply Moisture Barrier Paste to Sacrum. Cover with Optifoam drsg.Change every 3 days and prn. Apply Moisture Barrier Paste to abdominal folds, Perineum and skin folds of both upper thighs. Apply Cavilon Skin Barrier to both heels. Cover each Heel with Optifoam drsg. Change every 7 days and prn. Reposition at least every 2hours or as tolerated. Off-load heels with pillow. (7) Malnutrition Assessment & Plan: She was able to self feed on right hand and took a bite of popsicle and tolerated without s.s of aspiration. After 1st bite, then she refused 2nd bite. After this was done, I offered her a cup of cranberry juice, she took few sips and tolerated without s.s of aspiration. I continued to offer but she refused further PO. A: 1. Functional swallow 2. Failure to thrive 3. abnormal electrolytes in setting of heart failure, NSTEMI, elevated BNP, etc.. P/Rec. 1. Pureed and thin liquid 2.3. Goal of care discussion DAILY ESTIMATED NEEDS: Needs based on Cardiac, pulmonary/ 51kg abw 25-30 kcals/kg 1203-7081 total kcals 1-1.5 g protein/kg 51-76 g total protein 20-25 mL/kg 8689-7102 total fluid mLs NUTRITION DIAGNOSIS: Swallowing difficulty R/T dysphagia, decreased cognitive fxn as evidenced by BRICK STACKER recommends pureed moist texture diet at this time. CURRENT DIET:NPO PO DIET RECOMMENDATIONS: Liberalized REGULAR w/ poor PO (texture per BRICK STACKER) ADDITIONAL RECOMMENDATIONS: * Calibrated bedscale wt * Monitor PO intake: refusing meds and foods at this time -> rec nonoral feeds w/ continued refusal of PO if part of POC * LOW NA diet w/ PO intake consistently >50% * 4 oz Ensure TID w/ meals (4oz at this time due to poor acceptance, may increase to 8oz w/ good acceptance) (8) Pneumonia due to COVID-19 virus Assessment & Plan: here appears to be increased left pleural fluid and generalized hazy parenchymal opacity, left greater than right. Heart remains enlarged Impression: Increased left pleural effusion Suspect increasing bilateral left greater than right pulmonary edema versus infiltrates worsening intubated on vent weaned extubated (9) Hypothyroidism Jim Orosco Nov 06, 2020 10:25
--- NOTE | 2020-11-06 10:50 | NUR ---
NURSE NOTES: Seen by Dr. Woods and assessed patient. Updated patient's condition. He said he will put some orders.
--- NOTE | 2020-11-06 11:24 | Pulmonology Progress Note ---
Subjective ROS Limited/Unobtainable: Yes Interval Events: Intubated 10/31/20; extubated 11/05/20 Constitutional: Denies: fever HEENT: Repors: no symptoms Respiratory: Reports: no symptoms Cardiovascular: Reports: no symptoms Gastrointestinal/Abdominal: Reports: diarrhea Psychiatric: Reports: other - s/p PEG Allergies: Coded Allergies: No Known Allergies (Unverified , 10/17/20) All Systems: reviewed and negative except above Objective Last 24 Hour Vital Signs Date Time Temp Pulse Resp B/P (MAP) Pulse Ox O2 Delivery O2 Flow Rate FiO2 11/06/20 10:00 88 19 124/65 (84) 100 11/06/20 09:30 Mechanical Ventilator 2.0 Nasal Cannula 11/06/20 09:14 100 Nasal Cannula 2.0 28 11/06/20 09:00 91 25 134/74 (94) 96 11/06/20 08:21 99 11/06/20 08:00 97.8 102 26 135/73 (93) 99 11/06/20 08:00 Mechanical Ventilator 10.0 Cool Aerosol 11/06/20 07:46 98 Cool Aerosol 5.0 28 11/06/20 07:00 96 23 135/71 (92) 99 11/06/20 06:22 68 18 11/06/20 06:00 95 27 133/77 (95) 99 11/06/20 05:00 82 17 127/65 (85) 100 11/06/20 04:00 81 11/06/20 04:00 Mechanical Ventilator 10.0 Cool Aerosol 11/06/20 04:00 80 22 100/50 (67) 99 11/06/20 03:00 75 15 111/61 (78) 99 11/06/20 02:00 80 17 117/57 (77) 100 11/06/20 01:14 99 Cool Aerosol 5.0 28 11/06/20 01:00 76 16 116/47 (70) 100 11/06/20 00:00 Mechanical Ventilator 10.0 Cool Aerosol 11/06/20 00:00 85 7 133/75 (94) 100 11/06/20 00:00 85 7 133/75 (94) 100 11/06/20 00:00 74 11/05/20 23:00 71 15 106/56 (73) 100 11/05/20 22:00 76 16 107/55 (72) 100 11/05/20 21:00 82 17 113/54 (73) 11/05/20 20:37 82 19 106/66 (79) 11/05/20 20:34 78 16 88/72 (77) 100 11/05/20 20:32 76 16 81/16 (37) 100 11/05/20 20:06 79 17 89/41 (57) 100 11/05/20 20:00 78 17 71/26 (41) 100 11/05/20 20:00 68 11/05/20 20:00 Mechanical Ventilator 10.0 Cool Aerosol 11/05/20 19:59 100 Cool Aerosol 8.0 35 11/05/20 19:00 89 18 110/86 (94) 98 11/05/20 18:00 84 21 101/44 (63) 100 11/05/20 17:00 82 7 94/57 (69) 100 11/05/20 16:00 98.5 80 19 81/61 (68) 100 11/05/20 16:00 Mechanical Ventilator 10.0 Cool Aerosol 11/05/20 16:00 86 11/05/20 15:00 79 8 133/64 (87) 100 11/05/20 14:10 100 Cool Aerosol 10.0 40 11/05/20 14:10 Mechanical Ventilator 11/05/20 14:10 79 19 100 Cool Aerosol 10.0 40 11/05/20 14:00 75 12 105/52 (69) 100 11/05/20 13:00 70 12 108/59 (75) 100 11/05/20 12:08 Mechanical Ventilator 11/05/20 12:00 72 11/05/20 12:00 98.7 79 12 112/54 (73) 100 Intake and Output 11/05/20 11/06/20 19:00 07:00 Intake Total 550 ml 440 ml Output Total 1555 ml 1595 ml Balance -1005 ml -1155 ml IV Total 110 ml Tube Feeding 440 ml 440 ml Output Urine Total 1555 ml 1515 ml Stool Total 80 ml General Appearance: no acute distress HEENT: atraumatic Respiratory: lungs clear Cardiovascular: normal rate, regular rhythm Abdomen: soft, non tender, other - s/p PEG Laboratory Tests 11/05/20 18:04: POC Whole Blood Glucose 87 11/06/20 03:40: White Blood Count 6.7, Red Blood Count 3.23L, Hemoglobin 9.6L, Hematocrit 29.9L, Mean Corpuscular Volume 93, Mean Corpuscular Hemoglobin 29.7, Mean Corpuscular Hemoglobin Concent 32.0, Red Cell Distribution Width 19.1H, Platelet Count 187, Mean Platelet Volume 8.1, Neutrophils (%) (Auto) , Lymphocytes (%) (Auto) , Monocytes (%) (Auto) , Eosinophils (%) (Auto) , Basophils (%) (Auto) , Differential Total Cells Counted 100, Neutrophils % (Manual) 90H, Lymphocytes % (Manual) 6L, Monocytes % (Manual) 4, Eosinophils % (Manual) 0, Basophils % (Manual) 0, Band Neutrophils 0, Platelet Estimate Adequate, Platelet Morphology Normal, Red Blood Cell Morphology , Hypochromasia 1+, Anisocytosis 1+ 11/06/20 08:54: Arterial Blood pH 7.263L, Arterial Blood Partial Pressure CO2 64.5*H, Arterial Blood Partial Pressure O2 78.3, Arterial Blood HCO3 28.5H, Arterial Blood Oxygen Saturation 94.8L, Arterial Blood Base Excess 0.4, Gallo Test Positive Current Medications Medications (Trade) Dose Ordered Sig/Yolanda Route PRN Reason Start Time Stop Time Status Last Admin Dose Admin Acetaminophen (Tylenol) 650 mg Q4H PRN ORAL Pain Scale (6-10) 10/17/20 19:15 11/16/20 19:14 Acetaminophen (Tylenol) 650 mg Q6H PRN GT Mild Pain (Pain Scale 1-3) 11/04/20 10:45 12/04/20 10:44 11/04/20 18:20 Acetaminophen (Tylenol) 650 mg Q6H PRN GT Temp >100.5 11/04/20 10:45 12/04/20 10:44 Apixaban (Eliquis) 2.5 mg BID ORAL 10/24/20 18:00 01/22/21 17:59 11/06/20 08:22 Chlorhexidine Gluconate (Eve-Hex 2%) 1 applic DAILY@2000 TOPIC 10/22/20 20:00 01/20/21 19:59 11/05/20 20:21 Digoxin (Lanoxin) 0.125 mg DAILY GT 10/30/20 09:00 01/28/21 08:59 11/06/20 08:21 Furosemide (Lasix) 40 mg EVERY 12 HOURS IV 11/04/20 09:00 12/04/20 08:59 11/06/20 08:21 Haloperidol Lactate 5 mg/ Dextrose 56 ml @ 224 mls/hr Q6H PRN IVPB Agitation 11/04/20 20:30 12/19/20 20:29 11/04/20 21:42 Levofloxacin (Levaquin) 750 mg EVERY OTHER DAY GT 11/08/20 09:00 11/15/20 08:59 Levothyroxine Sodium (Synthroid) 50 mcg DAILY@0630 ORAL 10/19/20 06:30 11/18/20 06:29 11/06/20 06:07 Norepinephrine Bitartrate 250 ml @ 0 mls/hr Q24H PRN IV For hypotension 11/04/20 08:37 11/07/20 08:36 Ondansetron HCl (Zofran) 4 mg Q6H PRN IVP Nausea & Vomiting 10/17/20 21:15 11/16/20 21:14 Pantoprazole (Protonix) 40 mg Q12HR IVP 11/02/20 21:00 11/25/20 20:59 11/06/20 08:21 Potassium Chloride (K-Dur) 40 meq EVERY 12 HOURS GT 11/04/20 21:00 02/02/21 20:59 11/06/20 08:20 Assessment/Plan Assessment/Plan 1. CHF. 2. CAD/previous non-STEMI. 3. [facility] resident. 4. Bradycardia. 5. Atrial fibrillation. -Started on Eliquis 6. Renal insufficiency. -Nephro following 7. Troponin leak. - Cardio following 8. COVID-19 pneumonia, without fever or leukocytosis - s/p intubated; now extubated 11/06/20 - ABG retaining CO2 -> will start BiPAP - Sp Cx (11/03) Gram negative bacillus -> now on meropenem per ID 9. Respiratory failure, s/p vent - now extubated 10. 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 UTI, cheryl 12. Dysphagia -s/p PEG (10/23) 13. Hypotension; improved - s/p NS bolus - pressors as needed - will continue diureses The care of this patient was discussed with my supervising physician Time spent for this encounter was approximately 31 minutes Tl Pedro Nov 06, 2020 11:24
--- NOTE | 2020-11-06 12:30 | NUR ---
NURSE NOTES: Patient is drowsy. Repositioned patient. Kept dry, clean and comfortable.
--- NOTE | 2020-11-06 13:51 | Diagnostic Imaging Report ---
Procedure: XRAY Chest 1v Reason for study: Shortness of breath. Comparison films: 11/02/2020. FINDINGS: Endotracheal tube has been removed. Left subclavian line remains in place. Radiograph is underpenetrated. Bilateral pleural densities not significantly changed given difference in technique. Cardiomegaly and effusions unchanged. The bony thorax appear unremarkable. IMPRESSION: Endotracheal tube removed. Otherwise no significant change.
--- NOTE | 2020-11-06 14:01 | Nephrology Progress Note ---
Assessment/Plan Problem List: (1) Acute kidney injury (2) Anemia (3) Hyperkalemia (4) Elevated troponin (5) Pneumonia due to COVID-19 virus (6) Hypothyroidism Assessment Plan November 06: Patient is now extubated. Labs reviewed. Medication list reviewed. Serum creatinine stable. Continue post extubation care. November 05: Mental status improved. Labs and medication list reviewed. Serum creatinine 2.2. Weaning trial in process. Continue per consultants. November 04: Full code. Intubated. Labs reviewed. Low potassium addressed. Serum creatinine stable 2.3. Continue per consultants. Weaning as possible. November 03: Remains full code. Remains intubated. FiO2 30%. Discussed with RN. Low potassium addressed. Patient remains on Lasix. Continue to monitor renal parameters. Serum creatinine slightly rising. November 02: Patient remains intubated on ventilator. FiO2 30%. Labs reviewed. Low potassium addressed. Medication list reviewed. Patient on Lasix 40 mg every 8 hours. Serum creatinine higher to 2.3. Feeding changed to Nepro. Potassium supplement given. Continue to monitor renal parameters. November 01: Seen in ICU. Now intubated on ventilator. Discussed with RN. Labs results noted. Abnormal electrolytes addressed. Discussed with RN. Continue per consultants. October 31: Patient seen in ICU. Discussed with SERGIO Miller. ABG noted. Patient acidotic. Being transfused. Potassium is being replaced. Due for another ABG and possible intubation if needed. Conferred with pulmonary and cardiology. October 30: Labs reviewed. Potassium elevated. Kayexalate ordered. Continue to monitor hemoglobin hematocrit and renal parameters. Serum creatinine 2.1. Remains on BiPAP. October 29: Seen in ICU. Discussed with SERGIO Wilkerson. Hemoglobin low. Transfuse 1 unit of packed RBCs. Potassium supplements IV given. Midodrine discontinued. Serum creatinine 2.2 stable. Patient remains on BiPAP. Continue per consultants. Continue to monitor hemoglobin hematocrit electrolytes and renal parameters. October 28: Seen in ICU. Remains on BiPAP. Low potassium and low magnesium addr essed. Serum creatinine plateaued at 2.2. Continue per current treatment plan. October 27: Patient in ICU. On BiPAP. Serum creatinine rising. Blood pressure more stable. Will give 100 mg Lasix IV push with the hope of reversing oliguria. Medication list reviewed. Continue to monitor renal parameters. October 26: Seen in ICU. On pressors for low blood pressure. Serum creatinine 2.1. Albumin bolus given. Stress dose of steroids initiated. Continue to monitor renal parameters. Continue per consultants. October 25: Patient seen and examined. Trendelenburg. Blood pressure low. Tachycardic. Discussed with RN. Patient to be transferred to ICU. Discussed with ICU charge nurse and hospital charge nurse. Meanwhile patient started on Albumin bolus and 100 cc an hour D5 normal saline. Patient to be started on pressors while in ICU. Patient full code. October 24: No CHEM panel drawn today.. Renal parameters stable. Patient had a GT placed yesterday. Will check labs tomorrow. Medication list reviewed. October 23: Labs reviewed. Renal parameters unchanged. Creatinine 1.9. Continue current management. Medication list reviewed. October 22: Labs reviewed. Serum creatinine lower at 1.8. Patient started on clear liquid. Patient refuses p.o. medications and food at times. Continue per consultants. October 21: Labs reviewed. Serum creatinine unchanged. Continue per cons ultants. Continue to monitor renal parameters. October 20: Today's labs reviewed. Serum creatinine unchanged. RN reports pat ient not taking any p.o. meds. Continue per consultants. Serum creatinine appears to be baseline. October 19: Today's labs still not done yet. RN informed. Albumin bolus given again. Continue to monitor electrolytes and renal parameters. Per orders October 18: Patient hypotensive. Due for blood transfusion. Will give albumin bolus. Continue to monitor renal parameters and electrolytes. Labs and medication list reviewed Subjective ROS Limited/Unobtainable: Yes Objective Objective Last 24 Hour Vital Signs Date Time Temp Pulse Resp B/P (MAP) Pulse Ox O2 Delivery O2 Flow Rate FiO2 11/06/20 12:00 97.2 88 21 109/50 (69) 100 11/06/20 12:00 Mechanical Ventilator 2.0 Nasal Cannula 11/06/20 11:00 90 21 119/67 (84) 100 11/06/20 10:00 88 19 124/65 (84) 100 11/06/20 09:30 Mechanical Ventilator 2.0 Nasal Cannula 11/06/20 09:14 100 Nasal Cannula 2.0 28 11/06/20 09:00 91 25 134/74 (94) 96 11/06/20 08:21 99 11/06/20 08:00 97.8 102 26 135/73 (93) 99 3/12/21 08:00 Mechanical Ventilator 10.0 Cool Aerosol 11/06/20 07:46 98 Cool Aerosol 5.0 28 11/06/20 07:00 96 23 135/71 (92) 99 11/06/20 06:22 68 18 11/06/20 06:00 95 27 133/77 (95) 99 11/06/20 05:00 82 17 127/65 (85) 100 11/06/20 04:00 81 11/06/20 04:00 Mechanical Ventilator 10.0 Cool Aerosol 11/06/20 04:00 80 22 100/50 (67) 99 11/06/20 03:00 75 15 111/61 (78) 99 11/06/20 02:00 80 17 117/57 (77) 100 11/06/20 01:14 99 Cool Aerosol 5.0 28 11/06/20 01:00 76 16 116/47 (70) 100 11/06/20 00:00 Mechanical Ventilator 10.0 Cool Aerosol 11/06/20 00:00 85 7 133/75 (94) 100 11/06/20 00:00 85 7 133/75 (94) 100 11/06/20 00:00 74 11/05/20 23:00 71 15 106/56 (73) 100 11/05/20 22:00 76 16 107/55 (72) 100 11/05/20 21:00 82 17 113/54 (73) 11/05/20 20:37 82 19 106/66 (79) 11/05/20 20:34 78 16 88/72 (77) 100 11/05/20 20:32 76 16 81/16 (37) 100 11/05/20 20:06 79 17 89/41 (57) 100 11/05/20 20:00 78 17 71/26 (41) 100 11/05/20 20:00 68 11/05/20 20:00 Mechanical Ventilator 10.0 Cool Aerosol 11/05/20 19:59 100 Cool Aerosol 8.0 35 11/05/20 19:00 89 18 110/86 (94) 98 11/05/20 18:00 84 21 101/44 (63) 100 11/05/20 17:00 82 7 94/57 (69) 100 11/05/20 16:00 98.5 80 19 81/61 (68) 100 3/11/21 16:00 Mechanical Ventilator 10.0 Cool Aerosol 11/05/20 16:00 86 11/05/20 15:00 79 8 133/64 (87) 100 11/05/20 14:10 100 Cool Aerosol 10.0 40 11/05/20 14:10 Mechanical Ventilator 11/05/20 14:10 79 19 100 Cool Aerosol 10.0 40 Intake and Output 11/05/20 11/06/20 19:00 07:00 Intake Total 550 ml 480 ml Output Total 1555 ml 1675 ml Balance -1005 ml -1195 ml IV Total 110 ml Tube Feeding 440 ml 480 ml Output Urine Total 1555 ml 1595 ml Stool Total 80 ml Current Medications Medications (Trade) Dose Ordered Sig/Yolanda Route PRN Reason Start Time Stop Time Status Last Admin Dose Admin Acetaminophen (Tylenol) 650 mg Q4H PRN ORAL Pain Scale (6-10) 10/17/20 19:15 11/16/20 19:14 Acetaminophen (Tylenol) 650 mg Q6H PRN GT Mild Pain (Pain Scale 1-3) 11/04/20 10:45 12/04/20 10:44 11/04/20 18:20 Acetaminophen (Tylenol) 650 mg Q6H PRN GT Temp >100.5 11/04/20 10:45 12/04/20 10:44 Apixaban (Eliquis) 2.5 mg BID ORAL 10/24/20 18:00 01/22/21 17:59 11/06/20 08:22 Chlorhexidine Gluconate (Eve-Hex 2%) 1 applic DAILY@2000 TOPIC 10/22/20 20:00 01/20/21 19:59 11/05/20 20:21 Digoxin (Lanoxin) 0.125 mg DAILY GT 10/30/20 09:00 01/28/21 08:59 11/06/20 08:21 Furosemide (Lasix) 40 mg EVERY 12 HOURS IV 11/04/20 09:00 12/04/20 08:59 11/06/20 08:21 Haloperidol Lactate 5 mg/ Dextrose 56 ml @ 224 mls/hr Q6H PRN IVPB Agitation 11/04/20 20:30 12/19/20 20:29 11/04/20 21:42 Levofloxacin (Levaquin) 750 mg EVERY OTHER DAY GT 11/08/20 09:00 11/15/20 08:59 Levothyroxine Sodium (Synthroid) 50 mcg DAILY@0630 ORAL 10/19/20 06:30 11/18/20 06:29 11/06/20 06:07 Norepinephrine Bitartrate 250 ml @ 0 mls/hr Q24H PRN IV For hypotension 11/04/20 08:37 11/07/20 08:36 Ondansetron HCl (Zofran) 4 mg Q6H PRN IVP Nausea & Vomiting 10/17/20 21:15 11/16/20 21:14 Pantoprazole (Protonix) 40 mg Q12HR IVP 11/02/20 21:00 11/25/20 20:59 11/06/20 08:21 Potassium Chloride (K-Dur) 40 meq EVERY 12 HOURS GT 11/04/20 21:00 02/02/21 20:59 11/06/20 08:20 Laboratory Tests 11/05/20 18:04: POC Whole Blood Glucose 87 11/06/20 03:40: White Blood Count 6.7, Red Blood Count 3.23L, Hemoglobin 9.6L, Hematocrit 29.9L, Mean Corpuscular Volume 93, Mean Corpuscular Hemoglobin 29.7, Mean Corpuscular Hemoglobin Concent 32.0, Red Cell Distribution Width 19.1H, Platelet Count 187, Mean Platelet Volume 8.1, Neutrophils (%) (Auto) , Lymphocytes (%) (Auto) , Mon ocytes (%) (Auto) , Eosinophils (%) (Auto) , Basophils (%) (Auto) , Differential Total Cells Counted 100, Neutrophils % (Manual) 90H, Lymphocytes % (Manual) 6L, Monocytes % (Manual) 4, Eosinophils % (Manual) 0, Basophils % (Manual) 0, Band Neutrophils 0, Platelet Estimate Adequate, Platelet Morphology Normal, Red Blood Cell Morphology , Hypochromasia 1+, Anisocytosis 1+ 11/06/20 08:54: Arterial Blood pH 7.263L, Arterial Blood Partial Pressure CO2 64.5*H, Arterial Blood Partial Pressure O2 78.3, Arterial Blood HCO3 28.5H, Arterial Blood Oxygen Saturation 94.8L, Arterial Blood Base Excess 0.4, Gallo Test Positive Height (Feet): 5 Height (Inches): 0.00 Weight (Pounds): 145 General Appearance: no apparent distress EENT: other - Extubated Cardiovascular: tachycardia Respiratory/Chest: decreased breath sounds Abdomen: distended Dustin Gómez MD Nov 06, 2020 14:01
--- NOTE | 2020-11-06 16:02 | NUR ---
NURSE NOTES: Bed bath given. Kept dry, clean and comfortable.
--- NOTE | 2020-11-06 16:30 | NUR ---
NURSE NOTES: Seen by Dr. Reyes and assessed patient. Updated patient's condition. No new orders.
--- NOTE | 2020-11-06 16:38 | General Progress Note ---
Subjective ROS Limited/Unobtainable: No Allergies: Coded Allergies: No Known Allergies (Unverified , 10/17/20) Subjective intubated now Objective Last 24 Hour Vital Signs Date Time Temp Pulse Resp B/P (MAP) Pulse Ox O2 Delivery O2 Flow Rate FiO2 11/06/20 16:00 88 11/06/20 16:00 98.2 89 25 116/62 (80) 100 11/06/20 15:00 80 18 111/52 (71) 100 11/06/20 14:00 85 23 121/38 (65) 100 11/06/20 13:00 99 Nasal Cannula 2.0 28 11/06/20 13:00 90 22 117/58 (77) 100 11/06/20 12:00 97.2 88 21 109/50 (69) 100 11/06/20 12:00 72 11/06/20 12:00 Mechanical Ventilator 2.0 Nasal Cannula 11/06/20 11:00 90 21 119/67 (84) 100 11/06/20 10:00 88 19 124/65 (84) 100 11/06/20 09:30 Mechanical Ventilator 2.0 Nasal Cannula 11/06/20 09:14 100 Nasal Cannula 2.0 28 11/06/20 09:00 91 25 134/74 (94) 96 11/06/20 08:21 99 11/06/20 08:00 97.8 102 26 135/73 (93) 99 11/06/20 08:00 Mechanical Ventilator 10.0 Cool Aerosol 11/06/20 08:00 76 11/06/20 07:46 98 Cool Aerosol 5.0 28 11/06/20 07:00 96 23 135/71 (92) 99 11/06/20 06:22 68 18 11/06/20 06:00 95 27 133/77 (95) 99 11/06/20 05:00 82 17 127/65 (85) 100 11/06/20 04:00 81 11/06/20 04:00 Mechanical Ventilator 10.0 Cool Aerosol 11/06/20 04:00 80 22 100/50 (67) 99 11/06/20 03:00 75 15 111/61 (78) 99 11/06/20 02:00 80 17 117/57 (77) 100 11/06/20 01:14 99 Cool Aerosol 5.0 28 11/06/20 01:00 76 16 116/47 (70) 100 11/06/20 00:00 Mechanical Ventilator 10.0 Cool Aerosol 11/06/20 00:00 85 7 133/75 (94) 100 11/06/20 00:00 85 7 133/75 (94) 100 11/06/20 00:00 74 11/05/20 23:00 71 15 106/56 (73) 100 11/05/20 22:00 76 16 107/55 (72) 100 11/05/20 21:00 82 17 113/54 (73) 11/05/20 20:37 82 19 106/66 (79) 11/05/20 20:34 78 16 88/72 (77) 100 11/05/20 20:32 76 16 81/16 (37) 100 11/05/20 20:06 79 17 89/41 (57) 100 11/05/20 20:00 78 17 71/26 (41) 100 11/05/20 20:00 68 11/05/20 20:00 Mechanical Ventilator 10.0 Cool Aerosol 11/05/20 19:59 100 Cool Aerosol 8.0 35 11/05/20 19:00 89 18 110/86 (94) 98 11/05/20 18:00 84 21 101/44 (63) 100 11/05/20 17:00 82 7 94/57 (69) 100 Intake and Output 11/05/20 11/06/20 19:00 07:00 Intake Total 550 ml 480 ml Output Total 1555 ml 1675 ml Balance -1005 ml -1195 ml IV Total 110 ml Tube Feeding 440 ml 480 ml Output Urine Total 1555 ml 1595 ml Stool Total 80 ml Laboratory Tests 11/05/20 18:04: POC Whole Blood Glucose 87 11/06/20 03:40: White Blood Count 6.7, Red Blood Count 3.23L, Hemoglobin 9.6L, Hematocrit 29.9L, Mean Corpuscular Volume 93, Mean Corpuscular Hemoglobin 29.7, Mean Corpuscular H emoglobin Concent 32.0, Red Cell Distribution Width 19.1H, Platelet Count 187, Mean Platelet Volume 8.1, Neutrophils (%) (Auto) , Lymphocytes (%) (Auto) , Monocytes (%) (Auto) , Eosinophils (%) (Auto) , Basophils (%) (Auto) , Different ial Total Cells Counted 100, Neutrophils % (Manual) 90H, Lymphocytes % (Manual) 6L, Monocytes % (Manual) 4, Eosinophils % (Manual) 0, Basophils % (Manual) 0, Band Neutrophils 0, Platelet Estimate Adequate, Platelet Morphology Normal, Red Blood Cell Morphology , Hypochromasia 1+, Anisocytosis 1+ 11/06/20 08:54: Arterial Blood pH 7.263L, Arterial Blood Partial Pressure CO2 64.5*H, Arterial Blood Partial Pressure O2 78.3, Arterial Blood HCO3 28.5H, Arterial Blood Oxygen Saturation 94.8L, Arterial Blood Base Excess 0.4, Gallo Test Positive Height (Feet): 5 Height (Inches): 0.00 Weight (Pounds): 145 General Appearance: lethargic EENT: normal ENT inspection Neck: supple Cardiovascular: tachycardia Respiratory/Chest: decreased breath sounds Abdomen: normal bowel sounds, non tender, soft Extremities: non-tender Assessment/Plan Problem List: (1) Hypothyroidism ICD Codes: E03.9 - Hypothyroidism, unspecified SNOMED: 97642650 (2) Pneumonia due to COVID-19 virus ICD Codes: U07.1 - COVID-19; J12.82 - Pneumonia due to coronavirus disease 2019 SNOMED: 941964206165921199 (3) Malnutrition ICD Codes: E46 - Unspecified protein-calorie malnutrition SNOMED: 42311878 (4) Decubitus skin ulcer ICD Codes: L89.90 - Pressure ulcer of unspecified site, unspecified stage SNOMED: 308817295 (5) Elevated troponin ICD Codes: R77.8 - Other specified abnormalities of plasma proteins SNOMED: 752354984, 331952228, 692847996 (6) Atrial fibrillation ICD Codes: I48.91 - Unspecified atrial fibrillation SNOMED: 12388578 (7) Anemia ICD Codes: D64.9 - Anemia, unspecified SNOMED: 160864398 Status: progressing Assessment/Plan: GTF fu cardiology fu pulm labs for AM extubated now Skyler Tobar MD Nov 06, 2020 16:38
--- NOTE | 2020-11-06 16:45 | NUR ---
NURSE NOTES: Seen by Dr. Tobar and assessed patient. No new orders at this time.
--- NOTE | 2020-11-06 16:46 | NUR ---
NURSE NOTES: Held tube feeding. On Bipap 16/5 with Fio2 28%. Will continue plan of care.
--- NOTE | 2020-11-06 16:49 | Cardiac Electrophysiology PN ---
Assessment/Plan Assessment/Plan 1. NSTEMI with elevated troponin of more than 0.2 and hx of prior [place] The level has come down to 0.19, but the levels are flat and likely due to renal failure as the creatinine is 2.1. On aspirin and off Lopressor as hypotensive 2. Atrial fibrillation with rapid ventricular response. Off Lopressor for low BP On Eliquis 2.5 bid Better on Dig 0.125 PEG daily. Dig level 0.9 3. Respiratory failure , Extubated 11/06/20. On Lasix 40 iv bid 4. S/P Septic shock, off Levophed 5. Renal insufficiency. BUN 53 Cr 2.4 6. Status post COVID pneumonia, was tested positive more than two weeks ago. Now is Covid negative 7. Dysphagia, S/P PEG 10/23/20 8. Full code. DW Dr. Gómez and Chuck Subjective Subjective S/P PEG by Dr. Tobar 10/23/20 In ICU on Lasix 40 iv bid and off pressors. Covid negative 10/25 and is off isolation In atrial fib with controlled rate Extubated today but PCO2 is 64 now Objective Last 24 Hour Vital Signs Date Time Temp Pulse Resp B/P (MAP) Pulse Ox O2 Delivery O2 Flow Rate FiO2 11/06/20 16:00 88 11/06/20 16:00 98.2 89 25 116/62 (80) 100 11/06/20 16:00 Mechanical Ventilator 2.0 Nasal Cannula 11/06/20 15:00 80 18 111/52 (71) 100 11/06/20 14:00 85 23 121/38 (65) 100 11/06/20 13:00 99 Nasal Cannula 2.0 28 11/06/20 13:00 90 22 117/58 (77) 100 11/06/20 12:00 97.2 88 21 109/50 (69) 100 11/06/20 12:00 72 11/06/20 12:00 Mechanical Ventilator 2.0 Nasal Cannula 11/06/20 11:00 90 21 119/67 (84) 100 11/06/20 10:00 88 19 124/65 (84) 100 11/06/20 09:30 Mechanical Ventilator 2.0 Nasal Cannula 11/06/20 09:14 100 Nasal Cannula 2.0 28 11/06/20 09:00 91 25 134/74 (94) 96 3/12/21 08:21 99 11/06/20 08:00 97.8 102 26 135/73 (93) 99 11/06/20 08:00 Mechanical Ventilator 10.0 Cool Aerosol 11/06/20 08:00 76 11/06/20 07:46 98 Cool Aerosol 5.0 28 11/06/20 07:00 96 23 135/71 (92) 99 11/06/20 06:22 68 18 11/06/20 06:00 95 27 133/77 (95) 99 11/06/20 05:00 82 17 127/65 (85) 100 11/06/20 04:00 81 11/06/20 04:00 Mechanical Ventilator 10.0 Cool Aerosol 11/06/20 04:00 80 22 100/50 (67) 99 11/06/20 03:00 75 15 111/61 (78) 99 11/06/20 02:00 80 17 117/57 (77) 100 11/06/20 01:14 99 Cool Aerosol 5.0 28 11/06/20 01:00 76 16 116/47 (70) 100 11/06/20 00:00 Mechanical Ventilator 10.0 Cool Aerosol 11/06/20 00:00 85 7 133/75 (94) 100 11/06/20 00:00 85 7 133/75 (94) 100 11/06/20 00:00 74 11/05/20 23:00 71 15 106/56 (73) 100 11/05/20 22:00 76 16 107/55 (72) 100 11/05/20 21:00 82 17 113/54 (73) 11/05/20 20:37 82 19 106/66 (79) 11/05/20 20:34 78 16 88/72 (77) 100 11/05/20 20:32 76 16 81/16 (37) 100 11/05/20 20:06 79 17 89/41 (57) 100 11/05/20 20:00 78 17 71/26 (41) 100 11/05/20 20:00 68 11/05/20 20:00 Mechanical Ventilator 10.0 Cool Aerosol 11/05/20 19:59 100 Cool Aerosol 8.0 35 11/05/20 19:00 89 18 110/86 (94) 98 11/05/20 18:00 84 21 101/44 (63) 100 11/05/20 17:00 82 7 94/57 (69) 100 Intake and Output 11/05/20 11/06/20 19:00 07:00 Intake Total 550 ml 480 ml Output Total 1555 ml 1675 ml Balance -1005 ml -1195 ml IV Total 110 ml Tube Feeding 440 ml 480 ml Output Urine Total 1555 ml 1595 ml Stool Total 80 ml Laboratory Tests Test 11/05/20 18:04 11/06/20 03:40 11/06/20 08:54 POC Whole Blood Glucose 87 MG/DL (74-106) White Blood Count 6.7 K/UL (4.8-10.8) Red Blood Count 3.23 M/UL (4.20-5.40) L Hemoglobin 9.6 G/DL (12.0-16.0) L Hematocrit 29.9 % (37.0-47.0) L Mean Corpuscular Volume 93 FL (80-99) Mean Corpuscular Hemoglobin 29.7 PG (27.0-31.0) Mean Corpuscular Hemoglobin Concent 32.0 G/DL (32.0-36.0) Red Cell Distribution Width 19.1 % (11.6-14.8) H Platelet Count 187 K/UL (150-450) Mean Platelet Volume 8.1 FL (6.5-10.1) Neutrophils (%) (Auto) % (45.0-75.0) Lymphocytes (%) (Auto) % (20.0-45.0) Monocytes (%) (Auto) % (1.0-10.0) Eosinophils (%) (Auto) % (0.0-3.0) Basophils (%) (Auto) % (0.0-2.0) Differential Total Cells Counted 100 Neutrophils % (Manual) 90 % (45-75) H Lymphocytes % (Manual) 6 % (20-45) L Monocytes % (Manual) 4 % (1-10) Eosinophils % (Manual) 0 % (0-3) Basophils % (Manual) 0 % (0-2) Band Neutrophils 0 % (0-8) Platelet Estimate Adequate Platelet Morphology Normal Red Blood Cell Morphology Hypochromasia 1+ Anisocytosis 1+ Arterial Blood pH 7.263 (7.350-7.450) Arterial Blood Partial Pressure CO2 64.5 mmHg (35.0-45.0) *H Arterial Blood Partial Pressure O2 78.3 mmHg (75.0-100.0) Arterial Blood HCO3 28.5 mmol/L (22.0-26.0) H Arterial Blood Oxygen Saturation 94.8 % (95-100) L Arterial Blood Base Excess 0.4 (-2-2) Gallo Test Positive Objective HEAD AND NECK: No JVD. LUNGS: Decreased breath sounds. CARDIOVASCULAR: Irregular S1 and S2 with no gallop. ABDOMEN: Soft.S/P PEG EXTREMITIES: No pitting edema. Terry Reyes MD Nov 06, 2020 16:49
--- NOTE | 2020-11-06 16:51 | NUR ---
RESPIRATORY NOTE: Placed pt on BIPAP 16/ backup rate 12, 28% fio2 @1650 per MD order post ABG to correct hypercapnia. Owen RN aware. SpO2 100% Pt is awake and alert. Tape is in place. Skin breakdown on bridge of nose noted. Will continue to monitor and follow plan of care.
--- NOTE | 2020-11-06 18:59 | NUR ---
NURSE HAND-OFF REPORT: Latest Vital Signs: Temperature 98.2 , Pulse 83 , B/P 94 /73 , Respiratory Rate 22 , O2 SAT 100 , Simple Mask, O2 Flow Rate 2.0 . Vital Sign Comment: stable EKG Rhythm: Atrial Fibrillation Rhythm change?: N MD Notified?: - MD Response: Latest Elizabeth Fall Score: 70 Fall Risk: High Risk Safety Measures: Call light Within Reach, Bed Alarm Zone 1, Side Rails Side Rails x3, Bed position Low and Locked. Fall Precautions: Yellow Socks Patient Fall Education Report given to SERGIO Jordan. Endorsed plan of care.
--- NOTE | 2020-11-06 19:20 | NUR ---
NURSE NOTES: RN received report from day RN. patient in bed resting . Patient was extubated yesterday with a aerosol mask @40%. Patient ABG resulted CO2 high so patient placed on bipap toda. Patient tolerating bipap. Vitals stable at this time. Patient NPO and Tube feedings placed on hold. RN will continue to monitor.
[2020-11-06] MEDS: Dyna-Hex 2% Top Sol 2oz TOPIC SCH (20:23)
--- NOTE | 2020-11-06 21:30 | NUR ---
NURSE NOTES: atient resting in bed. Patient alert and oriented x2. Patient awake at times and trying to take bipap off. RN will continue to reorient. Patient repositioned for comfort. RN will continue to monitor.
--- NOTE | 2020-11-06 22:37 | General Progress Note ---
Subjective ROS Limited/Unobtainable: Yes Allergies: Coded Allergies: No Known Allergies (Unverified , 10/17/20) Objective Last 24 Hour Vital Signs Date Time Temp Pulse Resp B/P (MAP) Pulse Ox O2 Delivery O2 Flow Rate FiO2 11/06/20 22:22 82 13 100 28 11/06/20 21:00 89 20 138/94 (109) 100 11/06/20 20:00 82 20 126/57 (80) 100 11/06/20 20:00 28 11/06/20 20:00 Mechanical Ventilator 2.0 Nasal Cannula 11/06/20 19:30 84 18 100 28 11/06/20 19:00 85 24 98/59 (72) 100 11/06/20 18:00 83 22 94/73 (80) 100 11/06/20 17:00 81 19 105/72 (83) 100 11/06/20 16:48 28 11/06/20 16:48 87 27 100 28 11/06/20 16:00 88 11/06/20 16:00 98.2 89 25 116/62 (80) 100 11/06/20 16:00 Mechanical Ventilator 2.0 Nasal Cannula 11/06/20 15:00 80 18 111/52 (71) 100 11/06/20 14:00 85 23 121/38 (65) 100 11/06/20 13:00 99 Nasal Cannula 2.0 28 11/06/20 13:00 90 22 117/58 (77) 100 11/06/20 12:00 97.2 88 21 109/50 (69) 100 11/06/20 12:00 72 11/06/20 12:00 Mechanical Ventilator 2.0 Nasal Cannula 11/06/20 11:00 90 21 119/67 (84) 100 11/06/20 10:00 88 19 124/65 (84) 100 11/06/20 09:30 Mechanical Ventilator 2.0 Nasal Cannula 11/06/20 09:14 100 Nasal Cannula 2.0 28 11/06/20 09:00 91 25 134/74 (94) 96 11/06/20 08:21 99 11/06/20 08:00 97.8 102 26 135/73 (93) 99 11/06/20 08:00 Mechanical Ventilator 10.0 Cool Aerosol 11/06/20 08:00 76 11/06/20 07:46 98 Cool Aerosol 5.0 28 11/06/20 07:00 96 23 135/71 (92) 99 11/06/20 06:22 68 18 11/06/20 06:00 95 27 133/77 (95) 99 11/06/20 05:00 82 17 127/65 (85) 100 11/06/20 04:00 81 11/06/20 04:00 Mechanical Ventilator 10.0 Cool Aerosol 11/06/20 04:00 80 22 100/50 (67) 99 11/06/20 03:00 75 15 111/61 (78) 99 11/06/20 02:00 80 17 117/57 (77) 100 11/06/20 01:14 99 Cool Aerosol 5.0 28 11/06/20 01:00 76 16 116/47 (70) 100 11/06/20 00:00 Mechanical Ventilator 10.0 Cool Aerosol 11/06/20 00:00 85 7 133/75 (94) 100 11/06/20 00:00 85 7 133/75 (94) 100 11/06/20 00:00 74 11/05/20 23:00 71 15 106/56 (73) 100 Intake and Output 11/05/20 11/06/20 19:00 07:00 Intake Total 550 ml 480 ml Output Total 1555 ml 1675 ml Balance -1005 ml -1195 ml IV Total 110 ml Tube Feeding 440 ml 480 ml Output Urine Total 1555 ml 1595 ml Stool Total 80 ml Laboratory Tests 11/06/20 03:40: White Blood Count 6.7, Red Blood Count 3.23L, Hemoglobin 9.6L, Hematocrit 29.9L, Mean Corpuscular Volume 93, Mean Corpuscular Hemoglobin 29.7, Mean Corpuscular Hemoglobin Concent 32.0, Red Cell Distribution Width 19.1H, Platelet Count 187, Mean Platelet Volume 8.1, Neutrophils (%) (Auto) , Lymphocytes (%) (Auto) , Monocytes (%) (Auto) , Eosinophils (%) (Auto) , Basophils (%) (Auto) , Differential Total Cells Counted 100, Neutrophils % (Manual) 90H, Lymphocytes % (Manual) 6L, Monocytes % (Manual) 4, Eosinophils % (Manual) 0, Basophils % (Manual) 0, Band Neutrophils 0, Platelet Estimate Adequate, Platelet Morphology Normal, Red Blood Cell Morphology , Hypochromasia 1+, Anisocytosis 1+ 11/06/20 08:54: Arterial Blood pH 7.263L, Arterial Blood Partial Pressure CO2 64.5*H, Arterial Blood Partial Pressure O2 78.3, Arterial Blood HCO3 28.5H, Arterial Blood Oxygen Saturation 94.8L, Arterial Blood Base Excess 0.4, Gallo Test Positive Height (Feet): 5 Height (Inches): 0.00 Weight (Pounds): 145 Assessment/Plan Problem List: (1) Anemia ICD Codes: D64.9 - Anemia, unspecified SNOMED: 718775255 (2) Acute kidney injury ICD Codes: N17.9 - Acute kidney failure, unspecified SNOMED: 53808952, 7286986 (3) Atrial fibrillation ICD Codes: I48.91 - Unspecified atrial fibrillation SNOMED: 30901518 (4) Elevated troponin ICD Codes: R77.8 - Other specified abnormalities of plasma proteins SNOMED: 628954477, 006128925, 858156124 (5) Malnutrition ICD Codes: E46 - Unspecified protein-calorie malnutrition SNOMED: 43985619 (6) Pneumonia due to COVID-19 virus ICD Codes: U07.1 - COVID-19; J12.82 - Pneumonia due to coronavirus disease 2019 SNOMED: 822091754427485810 (7) Hypothyroidism ICD Codes: E03.9 - Hypothyroidism, unspecified SNOMED: 26568132 Status: progressing Assessment/Plan: chf not improving malnutrition aoztemia resp failure pna sepsis arrythmia Neri Dumont MD Nov 06, 2020 22:37
--- NOTE | 2020-11-06 23:15 | NUR ---
NURSE NOTES: Patient vitals stable at this time. Patient resting. patient repositioned. Oral care completed. Patient consistently reoriented to place and the need for bipap. Patient blood sugar 99. RN will continue to monitor.
[2020-11-07] VITALS (26 sets, daily range): BP systolic 73–192; BP diastolic 31–104
--- NOTE | 2020-11-07 01:30 | NUR ---
NURSE NOTES: Patient resting in bed. patient repositioned. Patient denies pain. Patient more awake but confused as to place and situation. Rn will continue to monitor.
--- NOTE | 2020-11-07 03:45 | NUR ---
NURSE NOTES: patient resting in bed. patient repositioned. no new needs at this time. RN will continue to monitor.
[2020-11-07 04:52] LABS: HEMOGLOBIN 9.5 G/DL (12.0-16.0); MEAN CORPUSCULAR VOLUME 93 FL (80-99); PLATELET COUNT 219 K/UL (150-450); RED BLOOD COUNT 3.32 M/UL (4.20-5.40); RED CELL DISTRIBUTION WIDTH 18.6 % (11.6-14.8); WHITE BLOOD COUNT 6.1 K/UL (4.8-10.8)
[2020-11-07 05:04] LABS: ALANINE AMINOTRANSFERASE 15 U/L (12-78); ALBUMIN 1.9 G/DL (3.4-5.0); ALBUMIN/GLOBULIN RATIO 0.6 (1.0-2.7); ALKALINE PHOSPHATASE 80 U/L (46-116); ANION GAP 6 mmol/L (5-15); ASPARTATE AMINO TRANSFERASE 10 U/L (15-37); BILIRUBIN,TOTAL 0.4 MG/DL (0.2-1.0); BLOOD UREA NITROGEN 45 mg/dL (7-18); CALCIUM 8.6 MG/DL (8.5-10.1); CARBON DIOXIDE 33 MMOL/L (21-32); CHLORIDE 109 MMOL/L (98-107); CREATININE 1.7 MG/DL (0.55-1.30); PHOSPHORUS 2.9 MG/DL (2.5-4.9); POTASSIUM 4.1 MMOL/L (3.5-5.1); SODIUM 147 MMOL/L (136-145)
--- NOTE | 2020-11-07 07:21 | NUR ---
NURSE HAND-OFF REPORT: Latest Vital Signs: Temperature 98.2 , Pulse 93 , B/P 121 /104 , Respiratory Rate 19 , O2 SAT 92 , Simple Mask, O2 Flow Rate 2.0 . Vital Sign Comment: EKG Rhythm: Atrial Fibrillation Rhythm change?: N MD Notified?: - MD Response: Latest Elizabeth Fall Score: 70 Fall Risk: High Risk Safety Measures: Call light Within Reach, Bed Alarm Zone 1, Side Rails Side Rails x3, Bed position Low and Locked. Fall Precautions: Yellow Socks Patient Fall Education Report given to
--- NOTE | 2020-11-07 08:12 | Diagnostic Imaging Report ---
EXAM: XR Chest, 1 View CLINICAL HISTORY: ABN CHST TECHNIQUE: Frontal view of the chest. COMPARISON: Chest x-rays dated 11/06/20 FINDINGS: Limitations: Exam degraded by rotation. Lungs: Pulmonary vascular congestion. Subsegmental atelectasis versus infiltrates in bilateral lung bases, greater on the left. Pleural space: Small bilateral pleural effusions, not significantly changed. Heart: Cardiomegaly. Mediastinum: Unremarkable. Bones/joints: Unremarkable. Vasculature: Atherosclerotic calcifications within the aortic arch. Tubes, lines and devices: Stable positioning of a left subclavian central venous catheter with the tip in the region of the SVC. Telemetry leads overlie the thorax. IMPRESSION: 1. No significant interval change compared to the chest x-ray from 11/06/20. 2. Cardiomegaly with pulmonary vascular congestion and small pleural effusions. 3. Subsegmental atelectasis versus infiltrates in bilateral lung bases, greater on the left.
[2020-11-07] MEDS: Pantoprazole Inj IVP SCH ×2 (08:24→21:15)
[2020-11-07] MEDS: Digoxin 0.125mg tab GT SCH (08:25)
[2020-11-07] MEDS: Eliquis 2.5mg tablet ORAL SCH ×2 (08:25→17:30)
--- NOTE | 2020-11-07 09:43 | NUR ---
RADIOLOGY DEPT., CHEST X-RAY DONE.-P.DYE
--- NOTE | 2020-11-07 10:15 | NUR ---
NURSE NOTES: Capo hernandez updated on the patient saturations while on 2L/min nasal cannula. she remains with saturations at 945-98% with no distress noted, she has a weak cough unable to clear secretions with cough or suctioning. no verbal orders given at this time.
--- NOTE | 2020-11-07 10:28 | Pulmonology Progress Note ---
Subjective ROS Limited/Unobtainable: Yes Interval Events: Intubated 10/31/20; extubated 11/05/20 Constitutional: Denies: fever HEENT: Repors: no symptoms Respiratory: Reports: no symptoms Cardiovascular: Reports: no symptoms Gastrointestinal/Abdominal: Reports: diarrhea Psychiatric: Reports: other Allergies: Coded Allergies: No Known Allergies (Unverified , 10/17/20) All Systems: reviewed and negative except above Objective Last 24 Hour Vital Signs Date Time Temp Pulse Resp B/P (MAP) Pulse Ox O2 Delivery O2 Flow Rate FiO2 11/07/20 09:00 93 17 132/59 (83) 99 11/07/20 08:25 91 11/07/20 08:00 94 26 137/68 (91) 100 11/07/20 08:00 109 11/07/20 07:00 92 28 143/66 (91) 100 11/07/20 06:30 68 18 11/07/20 06:00 93 19 121/104 (110) 92 11/07/20 05:00 92 17 162/67 (98) 100 11/07/20 04:00 81 15 123/65 (84) 100 11/07/20 04:00 104 11/07/20 04:00 28 11/07/20 04:00 Mechanical Ventilator 2.0 Nasal Cannula 11/07/20 03:00 83 23 88/64 (72) 100 11/07/20 02:52 86 23 100 28 11/07/20 02:00 84 23 141/59 (86) 100 11/07/20 01:00 84 19 145/63 (90) 100 11/07/20 00:00 Mechanical Ventilator 2.0 Nasal Cannula 11/07/20 00:00 28 11/07/20 00:00 80 22 148/81 (103) 100 11/07/20 00:00 91 11/06/20 23:00 78 20 143/78 (99) 100 11/06/20 22:22 82 13 100 28 11/06/20 22:00 82 21 132/47 (75) 100 11/06/20 21:00 89 20 138/94 (109) 100 11/06/20 20:00 82 20 126/57 (80) 100 11/06/20 20:00 28 11/06/20 20:00 Mechanical Ventilator 2.0 Nasal Cannula 11/06/20 20:00 76 11/06/20 19:30 84 18 100 28 11/06/20 19:00 85 24 98/59 (72) 100 11/06/20 18:00 83 22 94/73 (80) 100 11/06/20 17:00 81 19 105/72 (83) 100 11/06/20 16:48 28 11/06/20 16:48 87 27 100 28 11/06/20 16:00 88 11/06/20 16:00 98.2 89 25 116/62 (80) 100 11/06/20 16:00 Mechanical Ventilator 2.0 Nasal Cannula 11/06/20 15:00 80 18 111/52 (71) 100 11/06/20 14:00 85 23 121/38 (65) 100 11/06/20 13:00 99 Nasal Cannula 2.0 28 11/06/20 13:00 90 22 117/58 (77) 100 11/06/20 12:00 97.2 88 21 109/50 (69) 100 11/06/20 12:00 72 11/06/20 12:00 Mechanical Ventilator 2.0 Nasal Cannula 11/06/20 11:00 90 21 119/67 (84) 100 Intake and Output 11/06/20 11/07/20 19:00 07:00 Intake Total 560 ml 0 ml Output Total 1110 ml 850 ml Balance -550 ml -850 ml Free Water 200 ml Tube Feeding 360 ml 0 ml Output Urine Total 1110 ml 850 ml Objective appears more coherent General Appearance: no acute distress HEENT: atraumatic Respiratory: lungs clear Cardiovascular: normal rate, regular rhythm Abdomen: soft, non tender, other - s/p PEG Laboratory Tests 11/07/20 03:20: White Blood Count 6.1, Red Blood Count 3.32L, Hemoglobin 9.5L, Hematocrit 31.0L, Mean Corpuscular Volume 93, Mean Corpuscular Hemoglobin 28.7, Mean Corpuscular Hemoglobin Concent 30.8L, Red Cell Distribution Width 18.6H, Platelet Count 219, Mean Platelet Volume 8.0, Neutrophils (%) (Auto) , Lymphocytes (%) (Auto) , Monocytes (%) (Auto) , Eosinophils (%) (Auto) , Basophils (%) (Auto) , Differential Total Cells Counted 100, Neutrophils % (Manual) 88H, Lymphocytes % (Manual) 7L, Monocytes % (Manual) 5, Eosinophils % (Manual) 0, Basophils % (Manual) 0, Band Neutrophils 0, Platelet Estimate Adequate, Platelet Morphology Normal, Hypochromasia 1+, Anisocytosis 1+, Sodium Level 147H, Potassium Level 4.1, Chloride Level 109H, Carbon Dioxide Level 33H, Anion Gap 6, Blood Urea Nitrogen 45H, Creatinine 1.7H, Estimat Glomerular Filtration Rate 28.7, Glucose Level 91, Calcium Level 8.6, Phosphorus Level 2.9, Magnesium Level 1.5L, Total Bilirubin 0.4, Aspartate Amino Transf (AST/SGOT) 10L, Alanine Aminotransferase (ALT/SGPT) 15, Alkaline Phosphatase 80, C-Reactive Protein, Quantitative 8.6H, Pro-B-Type Natriuretic Peptide > 14673H, Total Protein 5.3L, Albumin 1.9L, Globulin 3.4, Albumin/Globulin Ratio 0.6L, Digoxin Level 1.7 11/07/20 08:08: Arterial Blood pH 7.387, Arterial Blood Partial Pressure CO2 50.7H, Arterial Blood Partial Pressure O2 64.9L, Arterial Blood HCO3 29.8H, Arterial Blood Oxygen Saturation 92.3L, Arterial Blood Base Excess 4.0H, Gallo Test Positive Current Medications Medications (Trade) Dose Ordered Sig/Yolanda Route PRN Reason Start Time Stop Time Status Last Admin Dose Admin Acetaminophen (Tylenol) 650 mg Q4H PRN ORAL Pain Scale (6-10) 10/17/20 19:15 11/16/20 19:14 Acetaminophen (Tylenol) 650 mg Q6H PRN GT Mild Pain (Pain Scale 1-3) 11/04/20 10:45 12/04/20 10:44 11/04/20 18:20 Acetaminophen (Tylenol) 650 mg Q6H PRN GT Temp >100.5 11/04/20 10:45 12/04/20 10:44 Apixaban (Eliquis) 2.5 mg BID ORAL 10/24/20 18:00 01/22/21 17:59 11/07/20 08:25 Chlorhexidine Gluconate (Eve-Hex 2%) 1 applic DAILY@2000 TOPIC 10/22/20 20:00 01/20/21 19:59 11/06/20 20:23 Digoxin (Lanoxin) 0.125 mg DAILY GT 10/30/20 09:00 01/28/21 08:59 11/07/20 08:25 Furosemide (Lasix) 40 mg EVERY 12 HOURS IV 11/04/20 09:00 12/04/20 08:59 11/07/20 08:24 Haloperidol Lactate 5 mg/ Dextrose 56 ml @ 224 mls/hr Q6H PRN IVPB Agitation 11/04/20 20:30 12/19/20 20:29 11/04/20 21:42 Levofloxacin (Levaquin) 750 mg EVERY OTHER DAY GT 11/08/20 09:00 11/15/20 08:59 Levothyroxine Sodium (Synthroid) 50 mcg DAILY@0630 ORAL 10/19/20 06:30 11/18/20 06:29 11/07/20 06:22 Ondansetron HCl (Zofran) 4 mg Q6H PRN IVP Nausea & Vomiting 10/17/20 21:15 11/16/20 21:14 Pantoprazole (Protonix) 40 mg Q12HR IVP 11/02/20 21:00 11/25/20 20:59 11/07/20 08:24 Potassium Chloride (K-Dur) 40 meq EVERY 12 HOURS GT 11/04/20 21:00 02/02/21 20:59 11/07/20 08:25 Assessment/Plan Assessment/Plan 1. CHF. - CXR (11/07) pulmonary vascular congestion and small pleural effusions. 2. CAD/previous non-STEMI. 3. pen[facility]iary resident. 4. Bradycardia. 5. Atrial fibrillation. -Started on Eliquis 6. Renal insufficiency. -Nephro following 7. Troponin leak. - Cardio following 8. COVID-19 pneumonia, without fever or leukocytosis - s/p intubated; now extubated 11/06/20 - ABG retaining CO2 -> will start BiPAP -> now off BiPAP and on 2L NC; ABG better - Sp Cx (11/03) Gram negative bacillus -> now on meropenem per ID 9. Respiratory failure, s/p vent - now extubated 10. 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 UTI, cheryl 12. Dysphagia -s/p PEG (10/23) 13. Hypotension; improved - s/p NS bolus - pressors as needed - will continue diureses The care of this patient was discussed with my supervising physician Time spent for this encounter was approximately 31 minutes Tl Pedro Nov 07, 2020 10:28
--- NOTE | 2020-11-07 11:25 | NUR ---
NURSE NOTES: Dr. Alvarado update on patient remaining afebrile with central line present on the left upper subclavian TLC, no verbal orders given at this time.
--- NOTE | 2020-11-07 11:40 | Surgery Progress Note ---
Surgery Progress Note Subjective Procedure Performed left subclavian central venous catheter insertion Additional Comments doing well extubated comfortable labs noted exam stable Objective Last 24 Hour Vital Signs Date Time Temp Pulse Resp B/P (MAP) Pulse Ox O2 Delivery O2 Flow Rate FiO2 11/07/20 10:00 87 28 150/69 (96) 100 11/07/20 09:00 93 17 132/59 (83) 99 11/07/20 08:25 91 11/07/20 08:01 99.0 94 26 137/68 (91) 100 11/07/20 08:00 94 26 137/68 (91) 100 11/07/20 08:00 109 11/07/20 08:00 Nasal Cannula 2.0 Nasal Cannula 2.0 11/07/20 07:00 92 28 143/66 (91) 100 11/07/20 07:00 2.0 28 11/07/20 06:30 68 18 11/07/20 06:00 93 19 121/104 (110) 92 11/07/20 05:00 92 17 162/67 (98) 100 11/07/20 04:00 81 15 123/65 (84) 100 11/07/20 04:00 104 11/07/20 04:00 28 11/07/20 04:00 Mechanical Ventilator 2.0 Nasal Cannula 11/07/20 03:00 83 23 88/64 (72) 100 11/07/20 02:52 86 23 100 28 11/07/20 02:00 84 23 141/59 (86) 100 11/07/20 01:00 84 19 145/63 (90) 100 11/07/20 00:00 Mechanical Ventilator 2.0 Nasal Cannula 11/07/20 00:00 28 11/07/20 00:00 80 22 148/81 (103) 100 11/07/20 00:00 91 11/06/20 23:00 78 20 143/78 (99) 100 11/06/20 22:22 82 13 100 28 11/06/20 22:00 82 21 132/47 (75) 100 11/06/20 21:00 89 20 138/94 (109) 100 11/06/20 20:00 82 20 126/57 (80) 100 11/06/20 20:00 28 11/06/20 20:00 Mechanical Ventilator 2.0 Nasal Cannula 11/06/20 20:00 76 11/06/20 19:30 84 18 100 28 11/06/20 19:00 85 24 98/59 (72) 100 11/06/20 18:00 83 22 94/73 (80) 100 11/06/20 17:00 81 19 105/72 (83) 100 11/06/20 16:48 28 11/06/20 16:48 87 27 100 28 11/06/20 16:00 88 11/06/20 16:00 98.2 89 25 116/62 (80) 100 11/06/20 16:00 Mechanical Ventilator 2.0 Nasal Cannula 11/06/20 15:00 80 18 111/52 (71) 100 11/06/20 14:00 85 23 121/38 (65) 100 11/06/20 13:00 99 Nasal Cannula 2.0 28 11/06/20 13:00 90 22 117/58 (77) 100 11/06/20 12:00 97.2 88 21 109/50 (69) 100 11/06/20 12:00 72 11/06/20 12:00 Mechanical Ventilator 2.0 Nasal Cannula I&O Intake and Output 11/06/20 11/07/20 19:00 07:00 Intake Total 560 ml 0 ml Output Total 1110 ml 925 ml Balance -550 ml -925 ml Free Water 200 ml Tube Feeding 360 ml 0 ml Output Urine Total 1110 ml 925 ml Dressing: saturated Cardiovascular: RSR Respiratory: decreased breath sounds Abdomen: soft, non-tender, present bowel sounds, non-distended Extremities: edema, no tenderness, no cyanosis Laboratory Tests Test 11/07/20 03:20 11/07/20 08:08 White Blood Count 6.1 K/UL (4.8-10.8) Red Blood Count 3.32 M/UL (4.20-5.40) L Hemoglobin 9.5 G/DL (12.0-16.0) L Hematocrit 31.0 % (37.0-47.0) L Mean Corpuscular Volume 93 FL (80-99) Mean Corpuscular Hemoglobin 28.7 PG (27.0-31.0) Mean Corpuscular Hemoglobin Concent 30.8 G/DL (32.0-36.0) L Red Cell Distribution Width 18.6 % (11.6-14.8) H Platelet Count 219 K/UL (150-450) Mean Platelet Volume 8.0 FL (6.5-10.1) Neutrophils (%) (Auto) % (45.0-75.0) Lymphocytes (%) (Auto) % (20.0-45.0) Monocytes (%) (Auto) % (1.0-10.0) Eosinophils (%) (Auto) % (0.0-3.0) Basophils (%) (Auto) % (0.0-2.0) Differential Total Cells Counted 100 Neutrophils % (Manual) 88 % (45-75) H Lymphocytes % (Manual) 7 % (20-45) L Monocytes % (Manual) 5 % (1-10) Eosinophils % (Manual) 0 % (0-3) Basophils % (Manual) 0 % (0-2) Band Neutrophils 0 % (0-8) Platelet Estimate Adequate Platelet Morphology Normal Hypochromasia 1+ Anisocytosis 1+ Sodium Level 147 MMOL/L (136-145) H Potassium Level 4.1 MMOL/L (3.5-5.1) Chloride Level 109 MMOL/L (98-107) H Carbon Dioxide Level 33 MMOL/L (21-32) H Anion Gap 6 mmol/L (5-15) Blood Urea Nitrogen 45 mg/dL (7-18) H Creatinine 1.7 MG/DL (0.55-1.30) H Estimat Glomerular Filtration Rate 28.7 mL/min (>60) Glucose Level 91 MG/DL (74-106) Calcium Level 8.6 MG/DL (8.5-10.1) Phosphorus Level 2.9 MG/DL (2.5-4.9) Magnesium Level 1.5 MG/DL (1.8-2.4) L Total Bilirubin 0.4 MG/DL (0.2-1.0) Aspartate Amino Transf (AST/SGOT) 10 U/L (15-37) L Alanine Aminotransferase (ALT/SGPT) 15 U/L (12-78) Alkaline Phosphatase 80 U/L (46-116) C-Reactive Protein, Quantitative 8.6 mg/dL (0.00-0.90) H Pro-B-Type Natriuretic Peptide > 17336 pg/mL (0-125) H Total Protein 5.3 G/DL (6.4-8.2) L Albumin 1.9 G/DL (3.4-5.0) L Globulin 3.4 g/dL Albumin/Globulin Ratio 0.6 (1.0-2.7) L Digoxin Level 1.7 NG/ML (0.9-2.0) Arterial Blood pH 7.387 (7.350-7.450) Arterial Blood Partial Pressure CO2 50.7 mmHg (35.0-45.0) H Arterial Blood Partial Pressure O2 64.9 mmHg (75.0-100.0) L Arterial Blood HCO3 29.8 mmol/L (22.0-26.0) H Arterial Blood Oxygen Saturation 92.3 % (95-100) L Arterial Blood Base Excess 4.0 (-2-2) H Gallo Test Positive Plan Problems: (1) Anemia (2) Acute kidney injury (3) Atrial fibrillation (4) Hyperkalemia (5) Elevated troponin (6) Decubitus skin ulcer Assessment & Plan: Pt presented on admission with Multiple Medical Comorbidities including Covid-19 and Pressure Injuries. Primary Nurse reported Pt has been declining food and medications. Sacral DTPI that is evolving noted to Sacrum(L)6cm x (W)12.5cm.. Scattered Purpuric areas that are indurated noted to R and L cheek. Small wound that is 100% slough (L)0.6cm x (W)0.7cm noted at sacrococcygeal area within base of DTPI. MASD noted to Perineum and skin folds of Medial/posterior aspects of Both upper thighs. Affected areas are erythematous and macerated with scattered satellite lesions. DTPI L Heel (L)3cm x (W)4cm, Base of heel is maroon and fluctuant with small purpuric area (L)0.4cm x (W)0.9cm within base of DTPI. l Foot including toes are mottled and cool to touch. L Heel is boggy. L Heel including toes are Mottled and cool to touch. Tx.Plan: Apply Moisture Barrier Paste to Sacrum. Cover with Optifoam drsg.Change every 3 days and prn. Apply Moisture Barrier Paste to abdominal folds, Perineum and skin folds of both upper thighs. Apply Cavilon Skin Barrier to both heels. Cover each Heel with Optifoam drsg. Ch jeannette every 7 days and prn. Reposition at least every 2hours or as tolerated. Off-load heels with pillow. (7) Malnutrition Assessment & Plan: She was able to self feed on right hand and took a bite of popsicle and tolerated without s.s of aspiration. After 1st bite, then she refused 2nd bite. After this was done, I offered her a cup of cranberry juice, she took few sips and tolerated without s.s of aspiration. I continued to offer but she refused further PO. A: 1. Functional swallow 2. Failure to thrive 3. abnormal electrolytes in setting of heart failure, NSTEMI, elevated BNP, etc.. P/Rec. 1. Pureed and thin liquid 2.3. Goal of care discussion DAILY ESTIMATED NEEDS: Needs based on Cardiac, pulmonary/ 51kg abw 25-30 kcals/kg 8991-0122 total kcals 1-1.5 g protein/kg 51-76 g total protein 20-25 mL/kg 2916-7325 total fluid mLs NUTRITION DIAGNOSIS: Swallowing difficulty R/T dysphagia, decreased cognitive fxn as evidenced by HOSPICE ADMINISTRATOR recommends pureed moist texture diet at this time. CURRENT DIET:NPO PO DIET RECOMMENDATIONS: Liberalized REGULAR w/ poor PO (texture per HOSPICE ADMINISTRATOR) ADDITIONAL RECOMMENDATIONS: * Calibrated bedscale wt * Monitor PO intake: refusing meds and foods at this time -> rec nonoral feeds w/ continued refusal of PO if part of POC * LOW NA diet w/ PO intake consistently >50% * 4 oz Ensure TID w/ meals (4oz at this time due to poor acceptance, may increase to 8oz w/ good acceptance) (8) Pneumonia due to COVID-19 virus Assessment & Plan: here appears to be increased left pleural fluid and generalized hazy parenchymal opacity, left greater than right. Heart remains enlarged Impression: Increased left pleural effusion Suspect increasing bilateral left greater than right pulmonary edema versus infiltrates worsening intubated on vent weaned extubated (9) Hypothyroidism Ana LuisaJim Nov 07, 2020 11:40
--- NOTE | 2020-11-07 11:54 | NUR ---
NURSE NOTES:WOUND CARE FOLLOW-UP NOTES:Morbidly obese Pt presented on admission with Covid -19 and Pressure Injuries . Partially opened Sacral DTPI(L)13cm x (W)9cm. Base of Pressure Injury is maroon with scattered purpuric areas without induration. Open wound with 100% slough noted within base of DTPI (L)2cm x (W)1.2cm. No odor or exudate noted. Periwound is dry without erythema or induration. MASD noted to abdominal panus,Perineum,Perianal, and medial/posterior aspects of both upper thighs.Affected areas are erythematous and macerated..R and L Heel are both boggy with non-blanchable erythema. Tx.Plan:Apply Antifungal cream to abdominal folds, Perineum, Medial/Posterior aspects of upper thighs Twice Daily. Cleanse Sacral wound with Saline. Apply TheraHoney. Apply Moisture Barrier Paste periwound. Cover with Optifoam drsg. Change Daily and prn. Apply Cavilon Skin Barrier to both heels.Cover each heel with Optifoam drsg.Change every 7 days and prn. Reposition at least every 2hoours or as tolerated. Off-load heels with Pillow. APM/KURT Mattress overlay .
--- NOTE | 2020-11-07 12:14 | Infectious Diseases Prog Note ---
Assessment/Plan Assessment/Plan IMPRESSION: Pneumonia with Pseudomonas Hypercapnic respiratory failure Recent history of COVID disease, Acute renal failure, Aortic stenosis Atrial fibrillation, hypothyroidism, Anemia. Chronic DVT of R leg Hypotension Gastrostomy status Respiratory acidosis Left pleural effusion RECOMMENDATION: Continue Levaquin Subjective ROS Limited/Unobtainable: Yes Constitutional: Reports: no symptoms Neurologic: Reports: other - more alert Allergies: Coded Allergies: No Known Allergies (Unverified , 10/17/20) Objective Last 24 Hour Vital Signs Date Time Temp Pulse Resp B/P (MAP) Pulse Ox O2 Delivery O2 Flow Rate FiO2 11/07/20 11:00 90 29 153/71 (98) 100 11/07/20 10:00 87 28 150/69 (96) 100 11/07/20 09:00 93 17 132/59 (83) 99 11/07/20 08:25 91 11/07/20 08:01 99.0 94 26 137/68 (91) 100 11/07/20 08:00 94 26 137/68 (91) 100 11/07/20 08:00 109 11/07/20 08:00 Nasal Cannula 2.0 Nasal Cannula 2.0 11/07/20 07:00 92 28 143/66 (91) 100 11/07/20 07:00 2.0 28 11/07/20 06:30 68 18 11/07/20 06:00 93 19 121/104 (110) 92 11/07/20 05:00 92 17 162/67 (98) 100 11/07/20 04:00 81 15 123/65 (84) 100 11/07/20 04:00 104 11/07/20 04:00 28 11/07/20 04:00 Mechanical Ventilator 2.0 Nasal Cannula 11/07/20 03:00 83 23 88/64 (72) 100 11/07/20 02:52 86 23 100 28 11/07/20 02:00 84 23 141/59 (86) 100 11/07/20 01:00 84 19 145/63 (90) 100 11/07/20 00:00 Mechanical Ventilator 2.0 Nasal Cannula 11/07/20 00:00 28 11/07/20 00:00 80 22 148/81 (103) 100 11/07/20 00:00 91 11/06/20 23:00 78 20 143/78 (99) 100 11/06/20 22:22 82 13 100 28 11/06/20 22:00 82 21 132/47 (75) 100 11/06/20 21:00 89 20 138/94 (109) 100 11/06/20 20:00 82 20 126/57 (80) 100 11/06/20 20:00 28 11/06/20 20:00 Mechanical Ventilator 2.0 Nasal Cannula 11/06/20 20:00 76 11/06/20 19:30 84 18 100 28 11/06/20 19:00 85 24 98/59 (72) 100 11/06/20 18:00 83 22 94/73 (80) 100 11/06/20 17:00 81 19 105/72 (83) 100 11/06/20 16:48 28 11/06/20 16:48 87 27 100 28 11/06/20 16:00 88 11/06/20 16:00 98.2 89 25 116/62 (80) 100 11/06/20 16:00 Mechanical Ventilator 2.0 Nasal Cannula 11/06/20 15:00 80 18 111/52 (71) 100 11/06/20 14:00 85 23 121/38 (65) 100 11/06/20 13:00 99 Nasal Cannula 2.0 28 11/06/20 13:00 90 22 117/58 (77) 100 Height (Feet): 5 Height (Inches): 0.00 Weight (Pounds): 145 HEENT: mucous membranes moist Respiratory/Chest: lungs clear Cardiovascular: normal rate Extremities: other - edema Neurologic/Psychiatric: alert, responsive Laboratory Tests Test 11/07/20 03:20 11/07/20 08:08 White Blood Count 6.1 K/UL (4.8-10.8) Red Blood Count 3.32 M/UL (4.20-5.40) L Hemoglobin 9.5 G/DL (12.0-16.0) L Hematocrit 31.0 % (37.0-47.0) L Mean Corpuscular Volume 93 FL (80-99) Mean Corpuscular Hemoglobin 28.7 PG (27.0-31.0) Mean Corpuscular Hemoglobin Concent 30.8 G/DL (32.0-36.0) L Red Cell Distribution Width 18.6 % (11.6-14.8) H Platelet Count 219 K/UL (150-450) Mean Platelet Volume 8.0 FL (6.5-10.1) Neutrophils (%) (Auto) % (45.0-75.0) Lymphocytes (%) (Auto) % (20.0-45.0) Monocytes (%) (Auto) % (1.0-10.0) Eosinophils (%) (Auto) % (0.0-3.0) Basophils (%) (Auto) % (0.0-2.0) Differential Total Cells Counted 100 Neutrophils % (Manual) 88 % (45-75) H Lymphocytes % (Manual) 7 % (20-45) L Monocytes % (Manual) 5 % (1-10) Eosinophils % (Manual) 0 % (0-3) Basophils % (Manual) 0 % (0-2) Band Neutrophils 0 % (0-8) Platelet Estimate Adequate Platelet Morphology Normal Hypochromasia 1+ Anisocytosis 1+ Sodium Level 147 MMOL/L (136-145) H Potassium Level 4.1 MMOL/L (3.5-5.1) Chloride Level 109 MMOL/L (98-107) H Carbon Dioxide Level 33 MMOL/L (21-32) H Anion Gap 6 mmol/L (5-15) Blood Urea Nitrogen 45 mg/dL (7-18) H Creatinine 1.7 MG/DL (0.55-1.30) H Estimat Glomerular Filtration Rate 28.7 mL/min (>60) Glucose Level 91 MG/DL (74-106) Calcium Level 8.6 MG/DL (8.5-10.1) Phosphorus Level 2.9 MG/DL (2.5-4.9) Magnesium Level 1.5 MG/DL (1.8-2.4) L Total Bilirubin 0.4 MG/DL (0.2-1.0) Aspartate Amino Transf (AST/SGOT) 10 U/L (15-37) L Alanine Aminotransferase (ALT/SGPT) 15 U/L (12-78) Alkaline Phosphatase 80 U/L (46-116) C-Reactive Protein, Quantitative 8.6 mg/dL (0.00-0.90) H Pro-B-Type Natriuretic Peptide > 90383 pg/mL (0-125) H Total Protein 5.3 G/DL (6.4-8.2) L Albumin 1.9 G/DL (3.4-5.0) L Globulin 3.4 g/dL Albumin/Globulin Ratio 0.6 (1.0-2.7) L Digoxin Level 1.7 NG/ML (0.9-2.0) Arterial Blood pH 7.387 (7.350-7.450) Arterial Blood Partial Pressure CO2 50.7 mmHg (35.0-45.0) H Arterial Blood Partial Pressure O2 64.9 mmHg (75.0-100.0) L Arterial Blood HCO3 29.8 mmol/L (22.0-26.0) H Arterial Blood Oxygen Saturation 92.3 % (95-100) L Arterial Blood Base Excess 4.0 (-2-2) H Gallo Test Positive Current Medications Medications (Trade) Dose Ordered Sig/Yolanda Route PRN Reason Start Time Stop Time Status Last Admin Dose Admin Acetaminophen (Tylenol) 650 mg Q4H PRN ORAL Pain Scale (6-10) 10/17/20 19:15 11/16/20 19:14 Acetaminophen (Tylenol) 650 mg Q6H PRN GT Mild Pain (Pain Scale 1-3) 11/04/20 10:45 12/04/20 10:44 11/04/20 18:20 Acetaminophen (Tylenol) 650 mg Q6H PRN GT Temp >100.5 11/04/20 10:45 12/04/20 10:44 Apixaban (Eliquis) 2.5 mg BID ORAL 10/24/20 18:00 01/22/21 17:59 11/07/20 08:25 Chlorhexidine Gluconate (Eve-Hex 2%) 1 applic DAILY@2000 TOPIC 10/22/20 20:00 01/20/21 19:59 11/06/20 20:23 Digoxin (Lanoxin) 0.125 mg DAILY GT 10/30/20 09:00 01/28/21 08:59 11/07/20 08:25 Furosemide (Lasix) 40 mg EVERY 12 HOURS IV 11/04/20 09:00 12/04/20 08:59 11/07/20 08:24 Haloperidol Lactate 5 mg/ Dextrose 56 ml @ 224 mls/hr Q6H PRN IVPB Agitation 11/04/20 20:30 12/19/20 20:29 11/04/20 21:42 Levofloxacin (Levaquin) 750 mg EVERY OTHER DAY GT 11/08/20 09:00 11/15/20 08:59 Levothyroxine Sodium (Synthroid) 50 mcg DAILY@0630 ORAL 10/19/20 06:30 11/18/20 06:29 11/07/20 06:22 Ondansetron HCl (Zofran) 4 mg Q6H PRN IVP Nausea & Vomiting 10/17/20 21:15 11/16/20 21:14 Pantoprazole (Protonix) 40 mg Q12HR IVP 11/02/20 21:00 11/25/20 20:59 11/07/20 08:24 Potassium Chloride (K-Dur) 40 meq EVERY 12 HOURS GT 11/04/20 21:00 02/02/21 20:59 11/07/20 08:25 Luis Alvarado MD Nov 07, 2020 12:14
--- NOTE | 2020-11-07 13:22 | NUR ---
NURSE NOTES: Dr. ybarra updated on the patient magnesium level at 1.5, already placed 4 grams of magnesium sulfate. urine output remains around 100-175ml/hr after administration of lasix.
--- NOTE | 2020-11-07 13:44 | Nephrology Progress Note ---
Assessment/Plan Problem List: (1) Acute kidney injury (2) Anemia (3) Hyperkalemia (4) Elevated troponin (5) Pneumonia due to COVID-19 virus (6) Hypothyroidism Assessment Plan November 07: Patient remains on nasal cannula. Full code. Labs reviewed. Low magnesium addressed. Discussed with SERGIO Wilkerson. Continue present care. November 06: Patient is now extubated. Labs reviewed. Medication list reviewed. Serum creatinine stable. Continue post extubation care. November 05: Mental status improved. Labs and medication list reviewed. Serum creatinine 2.2. Weaning trial in process. Continue per consultants. November 04: Full code. Intubated. Labs reviewed. Low potassium addressed. Seru m creatinine stable 2.3. Continue per consultants. Weaning as possible. November 03: Remains full code. Remains intubated. FiO2 30%. Discussed with RN. Low potassium addressed. Patient remains on Lasix. Continue to monitor renal parameters. Serum creatinine slightly rising. November 02: Patient remains intubated on ventilator. FiO2 30%. Labs reviewed. Low potassium addressed. Medication list reviewed. Patient on Lasix 40 mg every 8 hours. Serum creatinine higher to 2.3. Feeding changed to Nepro. Po tassium supplement given. Continue to monitor renal parameters. November 01: Seen in ICU. Now intubated on ventilator. Discussed with RN. Labs results noted. Abnormal electrolytes addressed. Discussed with RN. Continue per consultants. October 31: Patient seen in ICU. Discussed with SERGIO Miller. ABG noted. Patient acidotic. Being transfused. Potassium is being replaced. Due for another ABG and possible intubation if needed. Conferred with pulmonary and cardiology. October 30: Labs reviewed. Potassium elevated. Kayexalate ordered. Continue to monitor hemoglobin hematocrit and renal parameters. Serum creatinine 2.1. Remains on BiPAP. October 29: Seen in ICU. Discussed with SERGIO Wilkerson. Hemoglobin low. Transfuse 1 unit of packed RBCs. Potassium supplements IV given. Midodrine discontinued. Serum creatinine 2.2 stable. Patient remains on BiPAP. Continue per consultants. Continue to monitor hemoglobin hematocrit electrolytes and renal parameters. October 28: Seen in ICU. Remains on BiPAP. Low potassium and low magnesium addressed. Serum creatinine plateaued at 2.2. Continue per current treatment plan. October 27: Patient in ICU. On BiPAP. Serum creatinine rising. Blood pressure more stable. Will give 100 mg Lasix IV push with the hope of reversing oligu muriel. Medication list reviewed. Continue to monitor renal parameters. October 26: Seen in ICU. On pressors for low blood pressure. Serum creatinine 2.1. Albumin bolus given. Stress dose of steroids initiated. Continue to monitor renal parameters. Continue per consultants. October 25: Patient seen and examined. Trendelenburg. Blood pressure low. Tachycardic. Discussed with RN. Patient to be transferred to ICU. Discussed with ICU charge nurse and hospital charge nurse. Meanwhile patient started on Albumin bolus and 100 cc an hour D5 normal saline. Patient to be started on pressors while in ICU. Patient full code. October 24: No CHEM panel drawn today.. Renal parameters stable. Patient had a GT placed yesterday. Will check labs tomorrow. Medication list reviewed. October 23: Labs reviewed. Renal parameters unchanged. Creatinine 1.9. Continue current management. Medication list reviewed. October 22: Labs reviewed. Serum creatinine lower at 1.8. Patient started on clear liquid. Patient refuses p.o. medications and food at times. Continue per consultants. October 21: Labs reviewed. Serum creatinine unchanged. Continue per consultants. Continue to monitor renal parameters. October 20: Today's labs reviewed. Serum creatinine unchanged. RN reports patient not taking any p.o. meds. Continue per consultants. Serum creatinine appears to be baseline. October 19: Today's labs still not done yet. RN informed. Albumin bolus given again. Continue to monitor electrolytes and renal parameters. Per orders October 18: Patient hypotensive. Due for blood transfusion. Will give albumin bolus. Continue to monitor renal parameters and electrolytes. Labs and medication list reviewed Subjective ROS Limited/Unobtainable: Yes Objective Objective Last 24 Hour Vital Signs Date Time Temp Pulse Resp B/P (MAP) Pulse Ox O2 Delivery O2 Flow Rate FiO2 11/07/20 13:00 93 31 162/95 (117) 100 11/07/20 12:00 Nasal Cannula 2.0 Nasal Cannula 2.0 11/07/20 12:00 97.5 95 24 158/85 (109) 100 11/07/20 12:00 2.0 28 11/07/20 12:00 104 11/07/20 11:15 95 11/07/20 11:00 90 29 153/71 (98) 100 11/07/20 10:00 87 28 150/69 (96) 100 11/07/20 09:00 93 17 132/59 (83) 99 11/07/20 08:25 91 11/07/20 08:01 99.0 94 26 137/68 (91) 100 11/07/20 08:00 94 26 137/68 (91) 100 11/07/20 08:00 109 11/07/20 08:00 Nasal Cannula 2.0 Nasal Cannula 2.0 11/07/20 07:00 92 28 143/66 (91) 100 11/07/20 07:00 2.0 28 11/07/20 06:30 68 18 11/07/20 06:00 93 19 121/104 (110) 92 11/07/20 05:00 92 17 162/67 (98) 100 11/07/20 04:00 81 15 123/65 (84) 100 11/07/20 04:00 104 11/07/20 04:00 28 11/07/20 04:00 Mechanical Ventilator 2.0 Nasal Cannula 11/07/20 03:00 83 23 88/64 (72) 100 11/07/20 02:52 86 23 100 28 11/07/20 02:00 84 23 141/59 (86) 100 11/07/20 01:00 84 19 145/63 (90) 100 11/07/20 00:00 Mechanical Ventilator 2.0 Nasal Cannula 11/07/20 00:00 28 11/07/20 00:00 80 22 148/81 (103) 100 11/07/20 00:00 91 11/06/20 23:00 78 20 143/78 (99) 100 11/06/20 22:22 82 13 100 28 11/06/20 22:00 82 21 132/47 (75) 100 11/06/20 21:00 89 20 138/94 (109) 100 11/06/20 20:00 82 20 126/57 (80) 100 11/06/20 20:00 28 11/06/20 20:00 Mechanical Ventilator 2.0 Nasal Cannula 11/06/20 20:00 76 11/06/20 19:30 84 18 100 28 11/06/20 19:00 85 24 98/59 (72) 100 11/06/20 18:00 83 22 94/73 (80) 100 11/06/20 17:00 81 19 105/72 (83) 100 11/06/20 16:48 28 11/06/20 16:48 87 27 100 28 11/06/20 16:00 88 11/06/20 16:00 98.2 89 25 116/62 (80) 100 11/06/20 16:00 Mechanical Ventilator 2.0 Nasal Cannula 11/06/20 15:00 80 18 111/52 (71) 100 11/06/20 14:00 85 23 121/38 (65) 100 Intake and Output 11/06/20 11/07/20 19:00 07:00 Intake Total 560 ml 0 ml Output Total 1110 ml 925 ml Balance -550 ml -925 ml Free Water 200 ml Tube Feeding 360 ml 0 ml Output Urine Total 1110 ml 925 ml Current Medications Medications (Trade) Dose Ordered Sig/Yolanda Route PRN Reason Start Time Stop Time Status Last Admin Dose Admin Acetaminophen (Tylenol) 650 mg Q4H PRN ORAL Pain Scale (6-10) 10/17/20 19:15 11/16/20 19:14 Acetaminophen (Tylenol) 650 mg Q6H PRN GT Mild Pain (Pain Scale 1-3) 11/04/20 10:45 12/04/20 10:44 11/04/20 18:20 Acetaminophen (Tylenol) 650 mg Q6H PRN GT Temp >100.5 11/04/20 10:45 12/04/20 10:44 Apixaban (Eliquis) 2.5 mg BID ORAL 10/24/20 18:00 01/22/21 17:59 11/07/20 08:25 Chlorhexidine Gluconate (Eve-Hex 2%) 1 applic DAILY@2000 TOPIC 10/22/20 20:00 01/20/21 19:59 11/06/20 20:23 Digoxin (Lanoxin) 0.125 mg DAILY GT 10/30/20 09:00 01/28/21 08:59 11/07/20 08:25 Furosemide (Lasix) 40 mg EVERY 12 HOURS IV 11/04/20 09:00 12/04/20 08:59 11/07/20 08:24 Haloperidol Lactate 5 mg/ Dextrose 56 ml @ 224 mls/hr Q6H PRN IVPB Agitation 11/04/20 20:30 12/19/20 20:29 11/04/20 21:42 Levofloxacin (Levaquin) 750 mg EVERY OTHER DAY GT 11/08/20 09:00 11/15/20 08:59 Levothyroxine Sodium (Synthroid) 50 mcg DAILY@0630 ORAL 10/19/20 06:30 11/18/20 06:29 11/07/20 06:22 Magnesium Sulfate 100 ml @ 100 mls/hr Q1H IVPB 11/07/20 13:30 11/07/20 17:29 11/07/20 13:37 Ondansetron HCl (Zofran) 4 mg Q6H PRN IVP Nausea & Vomiting 10/17/20 21:15 11/16/20 21:14 Pantoprazole (Protonix) 40 mg Q12HR IVP 11/02/20 21:00 11/25/20 20:59 11/07/20 08:24 Potassium Chloride (K-Dur) 40 meq EVERY 12 HOURS GT 11/04/20 21:00 02/02/21 20:59 11/07/20 08:25 Laboratory Tests 11/07/20 03:20: White Blood Count 6.1, Red Blood Count 3.32L, Hemoglobin 9.5L, Hematocrit 31.0L, Mean Corpuscular Volume 93, Mean Corpuscular Hemoglobin 28.7, Mean Corpuscular Hemoglobin Concent 30.8L, Red Cell Distribution Width 18.6H, Platelet Count 219, Mean Platelet Volume 8.0, Neutrophils (%) (Auto) , Lymphocytes (%) (Auto) , Monocytes (%) (Auto) , Eosinophils (%) (Auto) , Basophils (%) (Auto) , Differential Total Cells Counted 100, Neutrophils % (Manual) 88H, Lymphocytes % (Manual) 7L, Monocytes % (Manual) 5, Eosinophils % (Manual) 0, Basophils % (Manu al) 0, Band Neutrophils 0, Platelet Estimate Adequate, Platelet Morphology Normal, Hypochromasia 1+, Anisocytosis 1+, Sodium Level 147H, Potassium Level 4.1, Chloride Level 109H, Carbon Dioxide Level 33H, Anion Gap 6, Blood Urea Nitrogen 45H, Creatinine 1.7H, Estimat Glomerular Filtration Rate 28.7, Glucose Level 91, Calcium Level 8.6, Phosphorus Level 2.9, Magnesium Level 1.5L, Total Bilirubin 0.4, Aspartate Amino Transf (AST/SGOT) 10L, Alanine Aminotransferase (ALT/SGPT) 15, Alkaline Phosphatase 80, C-Reactive Protein, Quantitative 8.6H, Pro-B-Type Natriuretic Peptide > 45059Y, Total Protein 5.3L, Albumin 1.9L, Globulin 3.4, Albumin/Globulin Ratio 0.6L, Digoxin Level 1.7 11/07/20 08:08: Arterial Blood pH 7.387, Arterial Blood Partial Pressure CO2 50.7H, Arterial Blood Partial Pressure O2 64.9L, Arterial Blood HCO3 29.8H, Arterial Blood Oxygen Saturation 92.3L, Arterial Blood Base Excess 4.0H, Gallo Test Positive 11/07/20 12:49: POC Whole Blood Glucose 85 Height (Feet): 5 Height (Inches): 0.00 Weight (Pounds): 145 Cardiovascular: tachycardia Respiratory/Chest: decreased breath sounds Abdomen: distended Dustin Gómez MD Nov 07, 2020 13:44
--- NOTE | 2020-11-07 13:49 | NUR ---
NURSE NOTES: first bag of magnesium sulfate started for magnesium of 1.5, started infusion through left upper subclaviar TLC. lines are patent with blood return present. will continue to monitor.
--- NOTE | 2020-11-07 15:30 | NUR ---
NURSE NOTES: tube feeding remains at 40ml/hr with residual of 5-10ml/hr after infusion approximately 120-135mls over the last 3.5hrs. she does not display any symptoms of stomach pain and remains tolerating feeding well. remains on 2l/min nasal cannula saturating at 96-98%. she is awake and talkative in her [place] language of [place]. her heart rate remains in atrial fibrillation. will continue to monitor
--- NOTE | 2020-11-07 15:39 | Cardiac Electrophysiology PN ---
Assessment/Plan Assessment/Plan 1. NSTEMI with elevated troponin of more than 0.2 and hx of prior SC The level has come down to 0.19, but the levels are flat and likely due to renal failure as the creatinine is 2.1. On aspirin and off Lopressor as hypotensive 2. Atrial fibrillation with rapid ventricular response. Off Lopressor for low BP On Dig 0.125 PEG daily and Eliquis 2.5 bid 3. Respiratory failure , Extubated 11/06/20. On Lasix 40 iv bid 4. S/P Septic shock, off Levophed 5. Renal insufficiency. BUN 53 Cr 2.4 6. Status post COVID pneumonia, was tested positive more than two weeks ago. Now is Covid negative 7. Dysphagia, S/P PEG 10/23/20 [address] Full code. DW Dr. Gómez and Chuck Subjective Subjective S/P PEG by Dr. Tobar 10/23/20 In ICU on Lasix 40 iv bid and off pressors. Covid negative 10/25 and is off isolation In atrial fib with controlled rate Extubated 11/06/20. On 2 liter NC Objective Last 24 Hour Vital Signs Date Time Temp Pulse Resp B/P (MAP) Pulse Ox O2 Delivery O2 Flow Rate FiO2 11/07/20 15:00 106 33 106/31 (56) 95 11/07/20 14:00 96 20 171/81 (111) 96 11/07/20 13:00 93 31 162/95 (117) 100 11/07/20 12:00 Nasal Cannula 2.0 Nasal Cannula 2.0 11/07/20 12:00 97.5 95 24 158/85 (109) 100 11/07/20 12:00 2.0 28 11/07/20 12:00 104 11/07/20 11:15 95 11/07/20 11:00 90 29 153/71 (98) 100 11/07/20 10:00 87 28 150/69 (96) 100 11/07/20 09:00 93 17 132/59 (83) 99 11/07/20 08:25 91 11/07/20 08:01 99.0 94 26 137/68 (91) 100 11/07/20 08:00 94 26 137/68 (91) 100 11/07/20 08:00 109 11/07/20 08:00 Nasal Cannula 2.0 Nasal Cannula 2.0 11/07/20 07:00 92 28 143/66 (91) 100 11/07/20 07:00 2.0 28 11/07/20 06:30 68 18 11/07/20 06:00 93 19 121/104 (110) 92 11/07/20 05:00 92 17 162/67 (98) 100 11/07/20 04:00 81 15 123/65 (84) 100 11/07/20 04:00 104 11/07/20 04:00 28 11/07/20 04:00 Mechanical Ventilator 2.0 Nasal Cannula 11/07/20 03:00 83 23 88/64 (72) 100 11/07/20 02:52 86 23 100 28 11/07/20 02:00 84 23 141/59 (86) 100 11/07/20 01:00 84 19 145/63 (90) 100 11/07/20 00:00 Mechanical Ventilator 2.0 Nasal Cannula 11/07/20 00:00 28 11/07/20 00:00 80 22 148/81 (103) 100 11/07/20 00:00 91 11/06/20 23:00 78 20 143/78 (99) 100 11/06/20 22:22 82 13 100 28 11/06/20 22:00 82 21 132/47 (75) 100 11/06/20 21:00 89 20 138/94 (109) 100 11/06/20 20:00 82 20 126/57 (80) 100 11/06/20 20:00 28 11/06/20 20:00 Mechanical Ventilator 2.0 Nasal Cannula 11/06/20 20:00 76 11/06/20 19:30 84 18 100 28 11/06/20 19:00 85 24 98/59 (72) 100 11/06/20 18:00 83 22 94/73 (80) 100 11/06/20 17:00 81 19 105/72 (83) 100 11/06/20 16:48 28 11/06/20 16:48 87 27 100 28 11/06/20 16:00 88 11/06/20 16:00 98.2 89 25 116/62 (80) 100 11/06/20 16:00 Mechanical Ventilator 2.0 Nasal Cannula Intake and Output 11/06/20 11/07/20 19:00 07:00 Intake Total 560 ml 0 ml Output Total 1110 ml 925 ml Balance -550 ml -925 ml Free Water 200 ml Tube Feeding 360 ml 0 ml Output Urine Total 1110 ml 925 ml Laboratory Tests Test 11/07/20 03:20 11/07/20 08:08 11/07/20 12:49 White Blood Count 6.1 K/UL (4.8-10.8) Red Blood Count 3.32 M/UL (4.20-5.40) L Hemoglobin 9.5 G/DL (12.0-16.0) L Hematocrit 31.0 % (37.0-47.0) L Mean Corpuscular Volume 93 FL (80-99) Mean Corpuscular Hemoglobin 28.7 PG (27.0-31.0) Mean Corpuscular Hemoglobin Concent 30.8 G/DL (32.0-36.0) L Red Cell Distribution Width 18.6 % (11.6-14.8) H Platelet Count 219 K/UL (150-450) Mean Platelet Volume 8.0 FL (6.5-10.1) Neutrophils (%) (Auto) % (45.0-75.0) Lymphocytes (%) (Auto) % (20.0-45.0) Monocytes (%) (Auto) % (1.0-10.0) Eosinophils (%) (Auto) % (0.0-3.0) Basophils (%) (Auto) % (0.0-2.0) Differential Total Cells Counted 100 Neutrophils % (Manual) 88 % (45-75) H Lymphocytes % (Manual) 7 % (20-45) L Monocytes % (Manual) 5 % (1-10) Eosinophils % (Manual) 0 % (0-3) Basophils % (Manual) 0 % (0-2) Band Neutrophils 0 % (0-8) Platelet Estimate Adequate Platelet Morphology Normal Hypochromasia 1+ Anisocytosis 1+ Sodium Level 147 MMOL/L (136-145) H Potassium Level 4.1 MMOL/L (3.5-5.1) Chloride Level 109 MMOL/L (98-107) H Carbon Dioxide Level 33 MMOL/L (21-32) H Anion Gap 6 mmol/L (5-15) Blood Urea Nitrogen 45 mg/dL (7-18) H Creatinine 1.7 MG/DL (0.55-1.30) H Estimat Glomerular Filtration Rate 28.7 mL/min (>60) Glucose Level 91 MG/DL (74-106) Calcium Level 8.6 MG/DL (8.5-10.1) Phosphorus Level 2.9 MG/DL (2.5-4.9) Magnesium Level 1.5 MG/DL (1.8-2.4) L Total Bilirubin 0.4 MG/DL (0.2-1.0) Aspartate Amino Transf (AST/SGOT) 10 U/L (15-37) L Alanine Aminotransferase (ALT/SGPT) 15 U/L (12-78) Alkaline Phosphatase 80 U/L (46-116) C-Reactive Protein, Quantitative 8.6 mg/dL (0.00-0.90) H Pro-B-Type Natriuretic Peptide > 57491 pg/mL (0-125) H Total Protein 5.3 G/DL (6.4-8.2) L Albumin 1.9 G/DL (3.4-5.0) L Globulin 3.4 g/dL Albumin/Globulin Ratio 0.6 (1.0-2.7) L Digoxin Level 1.7 NG/ML (0.9-2.0) Arterial Blood pH 7.387 (7.350-7.450) Arterial Blood Partial Pressure CO2 50.7 mmHg (35.0-45.0) H Arterial Blood Partial Pressure O2 64.9 mmHg (75.0-100.0) L Arterial Blood HCO3 29.8 mmol/L (22.0-26.0) H Arterial Blood Oxygen Saturation 92.3 % (95-100) L Arterial Blood Base Excess 4.0 (-2-2) H Gallo Test Positive POC Whole Blood Glucose 85 MG/DL (74-106) Objective HEAD AND NECK: No JVD. LUNGS: Decreased breath sounds. CARDIOVASCULAR: Irregular S1 and S2 with no gallop. ABDOMEN: Soft.S/P PEG EXTREMITIES: No pitting edema. Terry Reyes MD Nov 07, 2020 15:39
--- NOTE | 2020-11-07 17:30 | NUR ---
NURSE NOTES: Patient is awake and talking in [place] and follows simple commands, she does not display any symptoms of pain using the flacc scale, remains on tube feeding on nepro 40ml/hr with residuals of 10ml. Green remains draining clear urine with no sediment. rectal tube bag is approximately 1/[address] filled with brown running stool. remains on 2L/min nasal cannula with saturations of 98-99%.
--- NOTE | 2020-11-07 19:19 | NUR ---
NURSE HAND-OFF REPORT: Latest Vital Signs: Temperature 99.0 , Pulse 97 , B/P 101 /36 , Respiratory Rate 28 , O2 SAT 100 , Simple Mask, O2 Flow Rate 2.0 . Vital Sign Comment: EKG Rhythm: Atrial Fibrillation Rhythm change?: N MD Notified?: - MD Response: Latest Elizabeth Fall Score: 70 Fall Risk: High Risk Safety Measures: Call light Within Reach, Bed Alarm Zone 1, Side Rails Side Rails x3, Bed position Low and Locked. Fall Precautions: Yellow Socks Patient Fall Education Report given to SERGIO Tucker.
--- NOTE | 2020-11-07 19:30 | NUR ---
NURSE NOTES: RN received report from day RN. patient vitals stable at this time. Patient on 3L NC 02. Patient has Nepro infusing @40ml/hr. RN will continue to monitor.
[2020-11-07] MEDS: Dyna-Hex 2% Top Sol 2oz TOPIC SCH (20:27)
[2020-11-07] MEDS: Haloperidol Lactate 5 MG in D5W 55 ML IVPB PRN (21:16)
--- NOTE | 2020-11-07 21:27 | General Progress Note ---
Subjective ROS Limited/Unobtainable: Yes Allergies: Coded Allergies: No Known Allergies (Unverified , 10/17/20) Objective Last 24 Hour Vital Signs Date Time Temp Pulse Resp B/P (MAP) Pulse Ox O2 Delivery O2 Flow Rate FiO2 11/07/20 21:07 98 24 192/70 (110) 92 11/07/20 21:00 96 24 73/51 (58) 96 11/07/20 20:00 2.0 28 11/07/20 20:00 93 11/07/20 20:00 95 28 101/43 (62) 100 11/07/20 20:00 Nasal Cannula 2.0 Nasal Cannula 2.0 11/07/20 19:55 100 11/07/20 19:00 97 28 101/36 (57) 100 11/07/20 18:00 104 24 98/62 (74) 100 11/07/20 17:00 101 19 98/74 (82) 95 11/07/20 16:00 102 11/07/20 16:00 2.0 28 11/07/20 16:00 99.0 99 29 95/36 (55) 96 11/07/20 16:00 Nasal Cannula 2.0 Nasal Cannula 2.0 11/07/20 15:52 96 11/07/20 15:00 106 33 106/31 (56) 95 11/07/20 14:00 96 20 171/81 (111) 96 11/07/20 13:00 93 31 162/95 (117) 100 11/07/20 12:00 Nasal Cannula 2.0 Nasal Cannula 2.0 11/07/20 12:00 97.5 95 24 158/85 (109) 100 11/07/20 12:00 2.0 28 11/07/20 12:00 104 11/07/20 11:15 95 11/07/20 11:00 90 29 153/71 (98) 100 11/07/20 10:00 87 28 150/69 (96) 100 11/07/20 09:00 93 17 132/59 (83) 99 11/07/20 08:25 91 11/07/20 08:01 99.0 94 26 137/68 (91) 100 11/07/20 08:00 94 26 137/68 (91) 100 11/07/20 08:00 109 11/07/20 08:00 Nasal Cannula 2.0 Nasal Cannula 2.0 11/07/20 07:00 92 28 143/66 (91) 100 11/07/20 07:00 2.0 28 11/07/20 06:30 68 18 11/07/20 06:00 93 19 121/104 (110) 92 11/07/20 05:00 92 17 162/67 (98) 100 11/07/20 04:00 81 15 123/65 (84) 100 11/07/20 04:00 104 11/07/20 04:00 28 11/07/20 04:00 Mechanical Ventilator 2.0 Nasal Cannula 11/07/20 03:00 83 23 88/64 (72) 100 11/07/20 02:52 86 23 100 28 11/07/20 02:00 84 23 141/59 (86) 100 11/07/20 01:00 84 19 145/63 (90) 100 11/07/20 00:00 Mechanical Ventilator 2.0 Nasal Cannula 11/07/20 00:00 28 11/07/20 00:00 80 22 148/81 (103) 100 11/07/20 00:00 91 11/06/20 23:00 78 20 143/78 (99) 100 11/06/20 22:22 82 13 100 28 11/06/20 22:00 82 21 132/47 (75) 100 Intake and Output 11/06/20 11/07/20 19:00 07:00 Intake Total 560 ml 0 ml Output Total 1110 ml 925 ml Balance -550 ml -925 ml Free Water 200 ml Tube Feeding 360 ml 0 ml Output Urine Total 1110 ml 925 ml Laboratory Tests 11/07/20 03:20: White Blood Count 6.1, Red Blood Count 3.32L, Hemoglobin 9.5L, Hematocrit 31.0L, Mean Corpuscular Volume 93, Mean Corpuscular Hemoglobin 28.7, Mean Corpuscular Hemoglobin Concent 30.8L, Red Cell Distribution Width 18.6H, Platelet Count 219, Mean Platelet Volume 8.0, Neutrophils (%) (Auto) , Lymphocytes (%) (Auto) , Monocytes (%) (Auto) , Eosinophils (%) (Auto) , Basophils (%) (Auto) , Differential Total Cells Counted 100, Neutrophils % (Manual) 88H, Lymphocytes % (Manual) 7L, Monocytes % (Manual) 5, Eosinophils % (Manual) 0, Basophils % (Manual) 0, Band Neutrophils 0, Platelet Estimate Adequate, Platelet Morphology Normal, Hypochromasia 1+, Anisocytosis 1+, Sodium Level 147H, Potassium Level 4.1, Chloride Level 109H, Carbon Dioxide Level 33H, Anion Gap 6, Blood Urea Nitrogen 45H, Creatinine 1.7H, Estimat Glomerular Filtration Rate 28.7, Glucose Level 91, Calcium Level 8.6, Phosphorus Level 2.9, Magnesium Level 1.5L, Total Bilirubin 0.4, Aspartate Amino Transf (AST/SGOT) 10L, Alanine Aminotransferase (ALT/SGPT) 15, Alkaline Phosphatase 80, C-Reactive Protein, Quantitative 8.6H, Pro-B-Type Natriuretic Peptide > 04689Y, Total Protein 5.3L, Albumin 1.9L, Globulin 3.4, Albumin/Globulin Ratio 0.6L, Digoxin Level 1.7 11/07/20 08:08: Arterial Blood pH 7.387, Arterial Blood Partial Pressure CO2 50.7H, Arterial Blood Partial Pressure O2 64.9L, Arterial Blood HCO3 29.8H, Arterial Blood Oxygen Saturation 92.3L, Arterial Blood Base Excess 4.0H, Gallo Test Positive 11/07/20 12:49: POC Whole Blood Glucose 85 11/07/20 17:37: POC Whole Blood Glucose 123H Height (Feet): 5 Height (Inches): 0.00 Weight (Pounds): 145 Assessment/Plan Problem List: (1) Anemia ICD Codes: D64.9 - Anemia, unspecified SNOMED: 290878245 (2) Acute kidney injury ICD Codes: N17.9 - Acute kidney failure, unspecified SNOMED: 02488290, 3241069 (3) Atrial fibrillation ICD Codes: I48.91 - Unspecified atrial fibrillation SNOMED: 36545182 (4) Elevated troponin ICD Codes: R77.8 - Other specified abnormalities of plasma proteins SNOMED: 996779565, 568116371, 470531876 (5) Malnutrition ICD Codes: E46 - Unspecified protein-calorie malnutrition SNOMED: 38798337 (6) Pneumonia due to COVID-19 virus ICD Codes: U07.1 - COVID-19; J12.82 - Pneumonia due to coronavirus disease 2019 SNOMED: 124951177683951789 (7) Hypothyroidism ICD Codes: E03.9 - Hypothyroidism, unspecified SNOMED: 84024226 Status: progressing Assessment/Plan: not improving no change poor prognosis aoztemia resp failure pna sepsis Neri Dumont MD Nov 07, 2020 21:27
--- NOTE | 2020-11-07 21:56 | NUR ---
NURSE NOTES: Patient o2 saturations decreasing over the last hhour and the need for increased o2 necessary. RN notified RT to place patient on a simple mask. Patient o2 saturations doing better when placed on simple mask @8L. RN will continue to monitor.
--- NOTE | 2020-11-07 23:25 | NUR ---
NURSE NOTES: Patient vitals stable at this time. Patient denies pain. Patient requesting water but is failing swallow eval. RN gave swabs to wet mouth and completed oral care. RN will continue to monitor.
[2020-11-08] VITALS (22 sets, daily range): BP systolic 90–171; BP diastolic 28–100
--- NOTE | 2020-11-08 01:45 | NUR ---
NURSE NOTES: Patient vitals stable. patient sleeping. RN will continue to monitor.
--- NOTE | 2020-11-08 03:45 | NUR ---
NURSE NOTES: Patietn sleeping. Vitals are stable at this time. Patient repositioned. RN will continue to monitor.
--- NOTE | 2020-11-08 05:26 | NUR ---
NURSE NOTES: patient vitals stable at this time Patient resting. Oral care completed. RN will continue to monitor.
[2020-11-08 06:03] LABS: HEMATOCRIT 32.9 % (37.0-47.0); HEMOGLOBIN 10.1 G/DL (12.0-16.0); MEAN CORPUSCULAR VOLUME 95 FL (80-99); PLATELET COUNT 255 K/UL (150-450); RED BLOOD COUNT 3.47 M/UL (4.20-5.40); WHITE BLOOD COUNT 9.6 K/UL (4.8-10.8)
[2020-11-08 06:24] LABS: CALCIUM 8.9 MG/DL (8.5-10.1); CREATININE 1.6 MG/DL (0.55-1.30); POTASSIUM 4.9 MMOL/L (3.5-5.1)
--- NOTE | 2020-11-08 08:08 | NUR ---
RD ASSESSMENT & RECOMMENDATIONS SEE CARE ACTIVITY FOR COMPLETE ASSESSMENT DAILY ESTIMATED NEEDS: Needs based on Critical care / 52.3kg abw 25-30 kcals/kg 6733-9314 total kcals 1.2-2 g protein/kg 63-105 g total protein On lasix, fluid per MD NUTRITION DIAGNOSIS: Swallowing difficulty R/T dysphagia, decreased cognitive fxn as evidenced by [employer] recommends pureed moist texture diet w/ poor PO, now s/p PEG placement on 10/23, on GT feeds-> s/p extubation. CURRENT TF: NEPRO@40 x22 hrs (Pt on Synthroid) ENTERAL NUTRITION RECOMMENDATIONS: Glucerna 1.5 @ goal of 40ml/hr x 22 hrs to provide 880ml, 1320kcal, 66g prot, 640ml free water -> Initiate Glucerna 1.5 @ 10ml/hr x 6hrs -> Advance 10ml q 4-6 hrs as tolerated to goal rate -> HOB over 30 degrees/ H2O flush per MD With elevated potassium maintain current TF of Nepro w/ goal of 40ml/hr x22 hrs to meet est needs. Without hemodynamic stability and if able to keep HOB >30 degrees, rec trophic feeding of 10ml/hr ADDITIONAL RECOMMENDATIONS: * Calibrated bedscale wt * Monitor hemodynamic stability-> NE now held Rec trophic feeding w/ continued HD instability if HOB >30degrees * Monitor BGs, need for hypoglycemics * Rec to lower or DC IVF: BNP >20057, currently receiving 2400ml IVF/24hrs . .
--- NOTE | 2020-11-08 09:13 | NUR ---
NURSE NOTES: Capo BANKS of dr. Woods updated on patient respiratory status and abg results. ordered to place patient on cool aerosol mask, bipap PRN, and xopenex breathing treatment tid.
[2020-11-08] MEDS: Levofloxacin 750mg tab GT SCH (09:23)
[2020-11-08] MEDS: Eliquis 2.5mg tablet ORAL SCH ×2 (09:23→17:37)
[2020-11-08] MEDS: Digoxin 0.125mg tab GT SCH (09:23)
[2020-11-08] MEDS: Pantoprazole Inj IVP SCH ×2 (09:24→21:23)
[2020-11-08 09:25] LABS: PHOSPHORUS 2.8 MG/DL (2.5-4.9)
[2020-11-08] MEDS: Levalbuterol Inh UD 1.25mg/0.5ml HHN SCH ×3 (09:30→23:09)
--- NOTE | 2020-11-08 09:47 | Pulmonology Progress Note ---
Subjective ROS Limited/Unobtainable: Yes Interval Events: Intubated 10/31/20; extubated 11/05/20 Constitutional: Reports: no symptoms HEENT: Repors: no symptoms Respiratory: Reports: no symptoms Cardiovascular: Reports: no symptoms Gastrointestinal/Abdominal: Reports: diarrhea Psychiatric: Reports: other Allergies: Coded Allergies: No Known Allergies (Unverified , 10/17/20) All Systems: reviewed and negative except above Objective Last 24 Hour Vital Signs Date Time Temp Pulse Resp B/P (MAP) Pulse Ox O2 Delivery O2 Flow Rate FiO2 11/08/20 09:23 89 11/08/20 08:00 104 11/08/20 08:00 Simple Mask 5.0 Simple Mask 5.0 11/08/20 08:00 98.6 107 27 126/100 (109) 98 11/08/20 08:00 5.0 11/08/20 06:00 94 29 100/80 (87) 11/08/20 05:00 96 31 128/67 (87) 93 11/08/20 04:00 94 11/08/20 04:00 3.0 11/08/20 04:00 Nasal Cannula 2.0 Nasal Cannula 2.0 11/08/20 03:59 94 27 166/70 (102) 11/08/20 03:15 98 26 11/08/20 03:00 95 27 100 11/08/20 02:00 150/99 (116) 11/08/20 01:00 95 26 168/78 (108) 100 11/08/20 00:00 Nasal Cannula 2.0 Nasal Cannula 2.0 11/08/20 00:00 97.8 99 27 128/94 (105) 11/08/20 00:00 100 11/08/20 00:00 6.0 11/07/20 23:00 101 20 122/92 (102) 100 11/07/20 22:00 96 30 141/95 (110) 100 11/07/20 21:07 98 24 192/70 (110) 92 11/07/20 21:00 96 24 73/51 (58) 96 11/07/20 20:00 2.0 28 11/07/20 20:00 93 11/07/20 20:00 95 28 101/43 (62) 100 11/07/20 20:00 Nasal Cannula 2.0 Nasal Cannula 2.0 11/07/20 19:55 100 11/07/20 19:00 97 28 101/36 (57) 100 11/07/20 18:00 104 24 98/62 (74) 100 11/07/20 17:00 101 19 98/74 (82) 95 11/07/20 16:00 102 11/07/20 16:00 2.0 28 11/07/20 16:00 99.0 99 29 95/36 (55) 96 11/07/20 16:00 Nasal Cannula 2.0 Nasal Cannula 2.0 11/07/20 15:52 96 11/07/20 15:00 106 33 106/31 (56) 95 11/07/20 14:00 96 20 171/81 (111) 96 11/07/20 13:00 93 31 162/95 (117) 100 11/07/20 12:00 Nasal Cannula 2.0 Nasal Cannula 2.0 11/07/20 12:00 97.5 95 24 158/85 (109) 100 11/07/20 12:00 2.0 28 11/07/20 12:00 104 11/07/20 11:15 95 11/07/20 11:00 90 29 153/71 (98) 100 11/07/20 10:00 87 28 150/69 (96) 100 Intake and Output 11/07/20 11/08/20 19:00 07:00 Intake Total 820 ml 440 ml Output Total 1450 ml 1375 ml Balance -630 ml -935 ml Free Water 70 ml IV Total 400 ml Tube Feeding 320 ml 440 ml Other 30 ml Output Urine Total 1425 ml 1375 ml Stool Total 25 ml Objective appears more coherent General Appearance: no acute distress HEENT: atraumatic Respiratory: lungs clear Cardiovascular: normal rate, regular rhythm Abdomen: soft, non tender, other - s/p PEG Laboratory Tests 11/07/20 12:49: POC Whole Blood Glucose 85 11/07/20 17:37: POC Whole Blood Glucose 123H 11/08/20 05:09: White Blood Count 9.6#, Red Blood Count 3.47L, Hemoglobin 10.1L, Hematocrit 32.9L, Mean Corpuscular Volume 95, Mean Corpuscular Hemoglobin 29.2, Mean Corpuscular Hemoglobin Concent 30.8L, Red Cell Distribution Width 19.0H, Platelet Count 255, Mean Platelet Volume 8.1, Neutrophils (%) (Auto) , Lymphocytes (%) (Auto) , Monocytes (%) (Auto) , Eosinophils (%) (Auto) , Basophils (%) (Auto) , Sodium Level 148H, Potassium Level 4.9, Chloride Level 107, Carbon Dioxide Level 34H, Anion Gap 7, Blood Urea Nitrogen 46H, Creatinine 1.6H, Estimat Glomerular Filtration Rate 30.8, Glucose Level 171H, Calcium Level 8.9, Phosphorus Level 2.8, Magnesium Level 2.5H 11/08/20 08:06: Arterial Blood pH 7.402, Arterial Blood Partial Pressure CO2 55.4*H, Arterial Blood Partial Pressure O2 102.3H, Arterial Blood HCO3 33.7H, Arterial Blood Oxygen Saturation 97.2, Arterial Blood Base Excess 7.6H, Gallo Test Positive Current Medications Medications (Trade) Dose Ordered Sig/Yolanda Route PRN Reason Start Time Stop Time Status Last Admin Dose Admin Acetaminophen (Tylenol) 650 mg Q4H PRN ORAL Pain Scale (6-10) 10/17/20 19:15 11/16/20 19:14 Acetaminophen (Tylenol) 650 mg Q6H PRN GT Mild Pain (Pain Scale 1-3) 11/04/20 10:45 12/04/20 10:44 11/04/20 18:20 Acetaminophen (Tylenol) 650 mg Q6H PRN GT Temp >100.5 11/04/20 10:45 12/04/20 10:44 Apixaban (Eliquis) 2.5 mg BID ORAL 10/24/20 18:00 01/22/21 17:59 11/08/20 09:23 Chlorhexidine Gluconate (Eve-Hex 2%) 1 applic DAILY@2000 TOPIC 10/22/20 20:00 01/20/21 19:59 11/07/20 20:27 Digoxin (Lanoxin) 0.125 mg DAILY GT 10/30/20 09:00 01/28/21 08:59 11/08/20 09:23 Furosemide (Lasix) 40 mg EVERY 12 HOURS IV 11/04/20 09:00 12/04/20 08:59 11/08/20 09:24 Haloperidol Lactate 5 mg/ Dextrose 56 ml @ 224 mls/hr Q6H PRN IVPB Agitation 11/04/20 20:30 12/19/20 20:29 11/07/20 21:16 Levalbuterol HCl (Xopenex) 1.25 mg Q8HRT HHN 11/08/20 09:30 11/13/20 12:59 Levofloxacin (Levaquin) 750 mg EVERY OTHER DAY GT 11/08/20 09:00 11/15/20 08:59 11/08/20 09:23 Levothyroxine Sodium (Synthroid) 50 mcg DAILY@0630 ORAL 10/19/20 06:30 11/18/20 06:29 11/08/20 06:32 Ondansetron HCl (Zofran) 4 mg Q6H PRN IVP Nausea & Vomiting 10/17/20 21:15 11/16/20 21:14 Pantoprazole (Protonix) 40 mg Q12HR IVP 11/02/20 21:00 11/25/20 20:59 11/08/20 09:24 Potassium Chloride (K-Dur) 40 meq EVERY 12 HOURS GT 11/04/20 21:00 02/02/21 20:59 11/08/20 09:24 Assessment/Plan Assessment/Plan 1. CHF. - CXR (11/07) pulmonary vascular congestion and small pleural effusions. 2. CAD/previous non-STEMI. 3. prison resident. 4. Bradycardia. 5. Atrial fibrillation. -Started on Eliquis 6. Renal insufficiency. -Nephro following 7. Troponin leak. - Cardio following 8. COVID-19 pneumonia, without fever or leukocytosis - s/p intubated; now extubated 11/06/20 - ABG retaining CO2 -> will start BiPAP -> now off BiPAP and on 2L NC; ABG better - Sp Cx (11/03) Gram negative bacillus -> now on meropenem per ID - added Levalbuterol 9. Respiratory failure, s/p vent - now extubated 10. 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 UTI, cheryl 12. Dysphagia -s/p PEG (10/23) 13. Hypotension; improved - s/p NS bolus - pressors as needed - will continue diureses The care of this patient was discussed with my supervising physician Time spent for this encounter was approximately 31 minutes Tl Pedro Nov 08, 2020 09:47
--- NOTE | 2020-11-08 09:47 | Hematology/Onc Progress Note ---
Assessment/Plan Assessment/Plan Assessment and recs # Anemia r/o gi bleed --> anemia panel has been ordered-->reviewed --> hgb 8.1->9.3->9.7-->9.5-->10.5-->10.2-->9.1->8.6-->7.8-->8.1-->9.2-->8.7 --> no hemolysis is noted --> transfuse on prn basis --> 1 unit prbc 10/30 # Thrombocytopenia likely due to reactive process --> plt 138-->149-->176-->162 --> imaging prn --> smear has been reviewed --> viral w/u neg # Hypercoag disorder with Atrial fibrillation --> consider anticoag as per cards --> if bleeding, consider hold anticoag # Elevated trop --> per cards # Hyperkalemia --> per renal # Acute kidney injury --> per renal # Resp failure on bipap # Recently COVID-19 positive # Dvt ppx scds --> lovenox sq Appreciate consultation and dw rn Subjective Constitutional: Denies: no symptoms, chills, fever, malaise, weakness, other HEENT: Denies: no symptoms, eye pain, blurred vision, tearing, double vision, ear pain, ear discharge, nose pain, nose congestion, throat pain, throat swelling, mouth pain, mouth swelling, other Cardiovascular: Denies: no symptoms, chest pain, edema, irregular heart rate, lightheadedness, palpitations, syncope, other Genitourinary: Denies: no symptoms, burning, discharge, frequency, flank pain, hematuria, incontinence, pain, urgency, other Neurologic/Psychiatric: Denies: no symptoms, anxiety, depressed, emotional problems, headache, numbness, paresthesia, pre-existing deficit, seizure, tingling, tremors, weakness, other Endocrine: Denies: no symptoms, excessive sweating, flushing, intolerance to cold, intolerance to heat, increased hunger, increased thirst, increased urine, unexplained weight gain, unexplained weight loss, other Allergies: Coded Allergies: No Known Allergies (Unverified , 10/17/20) Subjective 10/19 cbc is pending, did get blood transfusion last night, pending results 10/20 meds noted, no bleeding, labs reviewed, rosio rn, no new changes 10/21 on 4l nc, has been refusing labs, meds noted, no bleeding 10/22 nc, refusing meds labs reviewed, rosio rn 10/23 is potentially for egd this am, no bleeding, cbc is noted 10/25 meds noted, no bleeidng, is on nc, no night sweats, bp bolus pending 10/26 bed bath done, meds noted, no bleeding, cbc reviewed from am 10/27 lethargic, on bipap, levophed, meds reviewed 10/28 icu, lethargic, remains on bipap, pressors 10/29 icu, lethargic, meds noted, on bipap, labs noted 10/30 icu, bipap, to get 1 unit prbc, meds reviewed, labs noted 10/31 icu, on vent, no bipap 11/01: remains in icu, no bleeding reported 11/02 icu, lethargic, on vent, with gt feeds on hold, labs noted 11/03 icu, intubated on vent, lethargic, labs reviewed, meds noted 11/04 icu, remains intuabted is on vent, lethargic, labs reviewed 11/05 icu, nv, on vent, lethargic, labs noted 11/06 icu, extubated, is on simple mask, meds noted 11/08 in icu, on simple mask and bipap prn, labs reviewed Objective Objective Current Medications Medications (Trade) Dose Ordered Sig/Yolanda Route PRN Reason Start Time Stop Time Status Last Admin Dose Admin Acetaminophen (Tylenol) 650 mg Q4H PRN ORAL Pain Scale (6-10) 10/17/20 19:15 11/16/20 19:14 Acetaminophen (Tylenol) 650 mg Q6H PRN GT Mild Pain (Pain Scale 1-3) 11/04/20 10:45 12/04/20 10:44 11/04/20 18:20 Acetaminophen (Tylenol) 650 mg Q6H PRN GT Temp >100.5 11/04/20 10:45 12/04/20 10:44 Apixaban (Eliquis) 2.5 mg BID ORAL 10/24/20 18:00 01/22/21 17:59 11/08/20 09:23 Chlorhexidine Gluconate (Eve-Hex 2%) 1 applic DAILY@1999 TOPIC 10/22/20 20:00 01/20/21 19:59 11/07/20 20:27 Digoxin (Lanoxin) 0.125 mg DAILY GT 10/30/20 09:00 01/28/21 08:59 11/08/20 09:23 Furosemide (Lasix) 40 mg EVERY 12 HOURS IV 11/04/20 09:00 12/04/20 08:59 11/08/20 09:24 Haloperidol Lactate 5 mg/ Dextrose 56 ml @ 224 mls/hr Q6H PRN IVPB Agitation 11/04/20 20:30 12/19/20 20:29 11/07/20 21:16 Levalbuterol HCl (Xopenex) 1.25 mg Q8HRT HHN 11/08/20 09:30 11/13/20 12:59 Levofloxacin (Levaquin) 750 mg EVERY OTHER DAY GT 11/08/20 09:00 11/15/20 08:59 11/08/20 09:23 Levothyroxine Sodium (Synthroid) 50 mcg DAILY@0630 ORAL 10/19/20 06:30 11/18/20 06:29 11/08/20 06:32 Ondansetron HCl (Zofran) 4 mg Q6H PRN IVP Nausea & Vomiting 10/17/20 21:15 11/16/20 21:14 Pantoprazole (Protonix) 40 mg Q12HR IVP 11/02/20 21:00 11/25/20 20:59 11/08/20 09:24 Potassium Chloride (K-Dur) 40 meq EVERY 12 HOURS GT 11/04/20 21:00 02/02/21 20:59 11/08/20 09:24 Last 24 Hour Vital Signs Date Time Temp Pulse Resp B/P (MAP) Pulse Ox O2 Delivery O2 Flow Rate FiO2 11/08/20 09:23 89 11/08/20 08:00 104 11/08/20 08:00 Simple Mask 5.0 Simple Mask 5.0 11/08/20 08:00 98.6 107 27 126/100 (109) 98 11/08/20 08:00 5.0 11/08/20 06:00 94 29 100/80 (87) 11/08/20 05:00 96 31 128/67 (87) 93 11/08/20 04:00 94 11/08/20 04:00 3.0 11/08/20 04:00 Nasal Cannula 2.0 Nasal Cannula 2.0 11/08/20 03:59 94 27 166/70 (102) 11/08/20 03:15 98 26 11/08/20 03:00 95 27 100 11/08/20 02:00 150/99 (116) 11/08/20 01:00 95 26 168/78 (108) 100 11/08/20 00:00 Nasal Cannula 2.0 Nasal Cannula 2.0 11/08/20 00:00 97.8 99 27 128/94 (105) 11/08/20 00:00 100 11/08/20 00:00 6.0 11/07/20 23:00 101 20 122/92 (102) 100 11/07/20 22:00 96 30 141/95 (110) 100 11/07/20 21:07 98 24 192/70 (110) 92 11/07/20 21:00 96 24 73/51 (58) 96 11/07/20 20:00 2.0 28 11/07/20 20:00 93 11/07/20 20:00 95 28 101/43 (62) 100 11/07/20 20:00 Nasal Cannula 2.0 Nasal Cannula 2.0 11/07/20 19:55 100 11/07/20 19:00 97 28 101/36 (57) 100 11/07/20 18:00 104 24 98/62 (74) 100 11/07/20 17:00 101 19 98/74 (82) 95 11/07/20 16:00 102 11/07/20 16:00 2.0 28 11/07/20 16:00 99.0 99 29 95/36 (55) 96 11/07/20 16:00 Nasal Cannula 2.0 Nasal Cannula 2.0 11/07/20 15:52 96 11/07/20 15:00 106 33 106/31 (56) 95 11/07/20 14:00 96 20 171/81 (111) 96 11/07/20 13:00 93 31 162/95 (117) 100 11/07/20 12:00 Nasal Cannula 2.0 Nasal Cannula 2.0 11/07/20 12:00 97.5 95 24 158/85 (109) 100 11/07/20 12:00 2.0 28 11/07/20 12:00 104 11/07/20 11:15 95 11/07/20 11:00 90 29 153/71 (98) 100 11/07/20 10:00 87 28 150/69 (96) 100 11/07/20 09:00 93 17 132/59 (83) 99 11/07/20 08:25 91 11/07/20 08:01 99.0 94 26 137/68 (91) 100 11/07/20 08:00 94 26 137/68 (91) 100 11/07/20 08:00 109 11/07/20 08:00 Nasal Cannula 2.0 Nasal Cannula 2.0 11/07/20 07:00 92 28 143/66 (91) 100 11/07/20 07:00 2.0 28 11/07/20 06:30 68 18 11/07/20 06:00 93 19 121/104 (110) 92 11/07/20 05:00 92 17 162/67 (98) 100 11/07/20 04:00 81 15 123/65 (84) 100 11/07/20 04:00 104 11/07/20 04:00 28 11/07/20 04:00 Mechanical Ventilator 2.0 Nasal Cannula 11/07/20 03:00 83 23 88/64 (72) 100 11/07/20 02:52 86 23 100 28 11/07/20 02:00 84 23 141/59 (86) 100 11/07/20 01:00 84 19 145/63 (90) 100 11/07/20 00:00 Mechanical Ventilator 2.0 Nasal Cannula 11/07/20 00:00 28 11/07/20 00:00 80 22 148/81 (103) 100 11/07/20 00:00 91 11/06/20 23:00 78 20 143/78 (99) 100 11/06/20 22:22 82 13 100 28 11/06/20 22:00 82 21 132/47 (75) 100 11/06/20 21:00 89 20 138/94 (109) 100 11/06/20 20:00 82 20 126/57 (80) 100 11/06/20 20:00 28 11/06/20 20:00 Mechanical Ventilator 2.0 Nasal Cannula 11/06/20 20:00 76 11/06/20 19:30 84 18 100 28 11/06/20 19:00 85 24 98/59 (72) 100 11/06/20 18:00 83 22 94/73 (80) 100 11/06/20 17:00 81 19 105/72 (83) 100 11/06/20 16:48 28 11/06/20 16:48 87 27 100 28 11/06/20 16:00 88 11/06/20 16:00 98.2 89 25 116/62 (80) 100 11/06/20 16:00 Mechanical Ventilator 2.0 Nasal Cannula 11/06/20 15:00 80 18 111/52 (71) 100 11/06/20 14:00 85 23 121/38 (65) 100 11/06/20 13:00 99 Nasal Cannula 2.0 28 11/06/20 13:00 90 22 117/58 (77) 100 11/06/20 12:00 97.2 88 21 109/50 (69) 100 11/06/20 12:00 72 11/06/20 12:00 Mechanical Ventilator 2.0 Nasal Cannula 11/06/20 11:00 90 21 119/67 (84) 100 11/06/20 10:00 88 19 124/65 (84) 100 Intake and Output 11/07/20 11/08/20 19:00 07:00 Intake Total 820 ml 440 ml Output Total 1450 ml 1375 ml Balance -630 ml -935 ml Free Water 70 ml IV Total 400 ml Tube Feeding 320 ml 440 ml Other 30 ml Output Urine Total 1425 ml 1375 ml Stool Total 25 ml Labs Test 11/05/20 10:50 11/05/20 18:04 11/06/20 03:40 11/06/20 08:54 Arterial Blood pH 7.366 (7.350-7.450) 7.263 (7.350-7.450) Arterial Blood Partial Pressure CO2 45.6 mmHg (35.0-45.0) 64.5 mmHg (35.0-45.0) Arterial Blood Partial Pressure O2 110.8 mmHg (75.0-100.0) 78.3 mmHg (75.0-100.0) Arterial Blood HCO3 25.5 mmol/L (22.0-26.0) 28.5 mmol/L (22.0-26.0) Arterial Blood Oxygen Saturation 97.4 % (95-100) 94.8 % (95-100) Arterial Blood Base Excess 0 (-2-2) 0.4 (-2-2) Gallo Test Positive Positive POC Whole Blood Glucose 87 MG/DL (74-106) White Blood Count 6.7 K/UL (4.8-10.8) Red Blood Count 3.23 M/UL (4.20-5.40) Hemoglobin 9.6 G/DL (12.0-16.0) Hematocrit 29.9 % (37.0-47.0) Mean Corpuscular Volume 93 FL (80-99) Mean Corpuscular Hemoglobin 29.7 PG (27.0-31.0) Mean Corpuscular Hemoglobin Concent 32.0 G/DL (32.0-36.0) Red Cell Distribution Width 19.1 % (11.6-14.8) Platelet Count 187 K/UL (150-450) Mean Platelet Volume 8.1 FL (6.5-10.1) Neutrophils (%) (Auto) % (45.0-75.0) Lymphocytes (%) (Auto) % (20.0-45.0) Monocytes (%) (Auto) % (1.0-10.0) Eosinophils (%) (Auto) % (0.0-3.0) Basophils (%) (Auto) % (0.0-2.0) Differential Total Cells Counted 100 Neutrophils % (Manual) 90 % (45-75) Lymphocytes % (Manual) 6 % (20-45) Monocytes % (Manual) 4 % (1-10) Eosinophils % (Manual) 0 % (0-3) Basophils % (Manual) 0 % (0-2) Band Neutrophils 0 % (0-8) Platelet Estimate Adequate Platelet Morphology Normal Red Blood Cell Morphology Hypochromasia 1+ Anisocytosis 1+ Test 11/07/20 03:20 11/07/20 08:08 11/07/20 12:49 11/07/20 17:37 White Blood Count 6.1 K/UL (4.8-10.8) Red Blood Count 3.32 M/UL (4.20-5.40) Hemoglobin 9.5 G/DL (12.0-16.0) Hematocrit 31.0 % (37.0-47.0) Mean Corpuscular Volume 93 FL (80-99) Mean Corpuscular Hemoglobin 28.7 PG (27.0-31.0) Mean Corpuscular Hemoglobin Concent 30.8 G/DL (32.0-36.0) Red Cell Distribution Width 18.6 % (11.6-14.8) Platelet Count 219 K/UL (150-450) Mean Platelet Volume 8.0 FL (6.5-10.1) Neutrophils (%) (Auto) % (45.0-75.0) Lymphocytes (%) (Auto) % (20.0-45.0) Monocytes (%) (Auto) % (1.0-10.0) Eosinophils (%) (Auto) % (0.0-3.0) Basophils (%) (Auto) % (0.0-2.0) Differential Total Cells Counted 100 Neutrophils % (Manual) 88 % (45-75) Lymphocytes % (Manual) 7 % (20-45) Monocytes % (Manual) 5 % (1-10) Eosinophils % (Manual) 0 % (0-3) Basophils % (Manual) 0 % (0-2) Band Neutrophils 0 % (0-8) Platelet Estimate Adequate Platelet Morphology Normal Hypochromasia 1+ Anisocytosis 1+ Sodium Level 147 MMOL/L (136-145) Potassium Level 4.1 MMOL/L (3.5-5.1) Chloride Level 109 MMOL/L (98-107) Carbon Dioxide Level 33 MMOL/L (21-32) Anion Gap 6 mmol/L (5-15) Blood Urea Nitrogen 45 mg/dL (7-18) Creatinine 1.7 MG/DL (0.55-1.30) Estimat Glomerular Filtration Rate 28.7 mL/min (>60) Glucose Level 91 MG/DL (74-106) Calcium Level 8.6 MG/DL (8.5-10.1) Phosphorus Level 2.9 MG/DL (2.5-4.9) Magnesium Level 1.5 MG/DL (1.8-2.4) Total Bilirubin 0.4 MG/DL (0.2-1.0) Aspartate Amino Transf (AST/SGOT) 10 U/L (15-37) Alanine Aminotransferase (ALT/SGPT) 15 U/L (12-78) Alkaline Phosphatase 80 U/L (46-116) C-Reactive Protein, Quantitative 8.6 mg/dL (0.00-0.90) Pro-B-Type Natriuretic Peptide > 24133 pg/mL (0-125) Total Protein 5.3 G/DL (6.4-8.2) Albumin 1.9 G/DL (3.4-5.0) Globulin 3.4 g/dL Albumin/Globulin Ratio 0.6 (1.0-2.7) Digoxin Level 1.7 NG/ML (0.9-2.0) Arterial Blood pH 7.387 (7.350-7.450) Arterial Blood Partial Pressure CO2 50.7 mmHg (35.0-45.0) Arterial Blood Partial Pressure O2 64.9 mmHg (75.0-100.0) Arterial Blood HCO3 29.8 mmol/L (22.0-26.0) Arterial Blood Oxygen Saturation 92.3 % (95-100) Arterial Blood Base Excess 4.0 (-2-2) Gallo Test Positive POC Whole Blood Glucose 85 MG/DL (74-106) 123 MG/DL (74-106) Test 11/08/20 05:09 11/08/20 08:06 White Blood Count 9.6 K/UL (4.8-10.8) Red Blood Count 3.47 M/UL (4.20-5.40) Hemoglobin 10.1 G/DL (12.0-16.0) Hematocrit 32.9 % (37.0-47.0) Mean Corpuscular Volume 95 FL (80-99) Mean Corpuscular Hemoglobin 29.2 PG (27.0-31.0) Mean Corpuscular Hemoglobin Concent 30.8 G/DL (32.0-36.0) Red Cell Distribution Width 19.0 % (11.6-14.8) Platelet Count 255 K/UL (150-450) Mean Platelet Volume 8.1 FL (6.5-10.1) Neutrophils (%) (Auto) % (45.0-75.0) Lymphocytes (%) (Auto) % (20.0-45.0) Monocytes (%) (Auto) % (1.0-10.0) Eosinophils (%) (Auto) % (0.0-3.0) Basophils (%) (Auto) % (0.0-2.0) Sodium Level 148 MMOL/L (136-145) Potassium Level 4.9 MMOL/L (3.5-5.1) Chloride Level 107 MMOL/L (98-107) Carbon Dioxide Level 34 MMOL/L (21-32) Anion Gap 7 mmol/L (5-15) Blood Urea Nitrogen 46 mg/dL (7-18) Creatinine 1.6 MG/DL (0.55-1.30) Estimat Glomerular Filtration Rate 30.8 mL/min (>60) Glucose Level 171 MG/DL (74-106) Calcium Level 8.9 MG/DL (8.5-10.1) Phosphorus Level 2.8 MG/DL (2.5-4.9) Magnesium Level 2.5 MG/DL (1.8-2.4) Arterial Blood pH 7.402 (7.350-7.450) Arterial Blood Partial Pressure CO2 55.4 mmHg (35.0-45.0) Arterial Blood Partial Pressure O2 102.3 mmHg (75.0-100.0) Arterial Blood HCO3 33.7 mmol/L (22.0-26.0) Arterial Blood Oxygen Saturation 97.2 % (95-100) Arterial Blood Base Excess 7.6 (-2-2) Gallo Test Positive Height (Feet): 5 Height (Inches): 0.00 Weight (Pounds): 145 Objective Physical Exam General: Awake and alert, no acute distress HEENT: NC/AT. EOMI. Cardiovascular: Irregularly irregular rhythm. Resp: Normal work of breathing. ++simple face mask Abdomen: Abdomen is soft, nondistended. Nontender Skin: Intact. No abrasions, laceration or rash over the exposed skin MSK: Normal tone and bulk. Moving all extremities. Neuro: Awake and alert. Mentating appropriately. Hawk Ma MD Nov 08, 2020 09:47
--- NOTE | 2020-11-08 10:32 | NUR ---
NURSE NOTES: patient repositioned and provided sponge bath and skin assessment, sacral excoriation covered with skin barrier cream and Optifoam, she is awake and talkative in [facility], remains on simple face mask at 5L/min saturations at 96-98%, urine output is pale straw and approximately 200-250ml after administration of Lasix
--- NOTE | 2020-11-08 11:06 | NUR ---
NURSE NOTES: Dr. Gómez updated on the patient renal status. tube feeding remains at 40ml/hr of Nepro
--- NOTE | 2020-11-08 11:21 | Surgery Progress Note ---
Surgery Progress Note Subjective Procedure Performed left subclavian central venous catheter insertion Additional Comments on face mask labs noted exam unchanged will wake up to stimulus Objective Last 24 Hour Vital Signs Date Time Temp Pulse Resp B/P (MAP) Pulse Ox O2 Delivery O2 Flow Rate FiO2 11/08/20 09:23 89 11/08/20 08:00 104 11/08/20 08:00 Simple Mask 5.0 Simple Mask 5.0 11/08/20 08:00 98.6 107 27 126/100 (109) 98 11/08/20 08:00 5.0 11/08/20 06:00 94 29 100/80 (87) 11/08/20 05:00 96 31 128/67 (87) 93 11/08/20 04:00 94 11/08/20 04:00 3.0 11/08/20 04:00 Nasal Cannula 2.0 Nasal Cannula 2.0 11/08/20 03:59 94 27 166/70 (102) 11/08/20 03:15 98 26 11/08/20 03:00 95 27 100 11/08/20 02:00 150/99 (116) 11/08/20 01:00 95 26 168/78 (108) 100 11/08/20 00:00 Nasal Cannula 2.0 Nasal Cannula 2.0 11/08/20 00:00 97.8 99 27 128/94 (105) 11/08/20 00:00 100 11/08/20 00:00 6.0 11/07/20 23:00 101 20 122/92 (102) 100 11/07/20 22:00 96 30 141/95 (110) 100 11/07/20 21:07 98 24 192/70 (110) 92 11/07/20 21:00 96 24 73/51 (58) 96 11/07/20 20:00 2.0 28 11/07/20 20:00 93 11/07/20 20:00 95 28 101/43 (62) 100 11/07/20 20:00 Nasal Cannula 2.0 Nasal Cannula 2.0 11/07/20 19:55 100 11/07/20 19:00 97 28 101/36 (57) 100 11/07/20 18:00 104 24 98/62 (74) 100 11/07/20 17:00 101 19 98/74 (82) 95 11/07/20 16:00 102 11/07/20 16:00 2.0 28 11/07/20 16:00 99.0 99 29 95/36 (55) 96 11/07/20 16:00 Nasal Cannula 2.0 Nasal Cannula 2.0 11/07/20 15:52 96 11/07/20 15:00 106 33 106/31 (56) 95 11/07/20 14:00 96 20 171/81 (111) 96 11/07/20 13:00 93 31 162/95 (117) 100 11/07/20 12:00 Nasal Cannula 2.0 Nasal Cannula 2.0 11/07/20 12:00 97.5 95 24 158/85 (109) 100 11/07/20 12:00 2.0 28 11/07/20 12:00 104 I&O Intake and Output 11/07/20 11/08/20 19:00 07:00 Intake Total 820 ml 440 ml Output Total 1450 ml 1375 ml Balance -630 ml -935 ml Free Water 70 ml IV Total 400 ml Tube Feeding 320 ml 440 ml Other 30 ml Output Urine Total 1425 ml 1375 ml Stool Total 25 ml Cardiovascular: RSR Respiratory: decreased breath sounds Abdomen: soft, non-tender, present bowel sounds, non-distended Extremities: no tenderness, no cyanosis Laboratory Tests Test 11/07/20 12:49 11/07/20 17:37 11/08/20 05:09 11/08/20 08:06 POC Whole Blood Glucose 85 MG/DL (74-106) 123 MG/DL (74-106) H White Blood Count 9.6 K/UL (4.8-10.8) # Red Blood Count 3.47 M/UL (4.20-5.40) L Hemoglobin 10.1 G/DL (12.0-16.0) L Hematocrit 32.9 % (37.0-47.0) L Mean Corpuscular Volume 95 FL (80-99) Mean Corpuscular Hemoglobin 29.2 PG (27.0-31.0) Mean Corpuscular Hemoglobin Concent 30.8 G/DL (32.0-36.0) L Red Cell Distribution Width 19.0 % (11.6-14.8) H Platelet Count 255 K/UL (150-450) Mean Platelet Volume 8.1 FL (6.5-10.1) Neutrophils (%) (Auto) % (45.0-75.0) Lymphocytes (%) (Auto) % (20.0-45.0) Monocytes (%) (Auto) % (1.0-10.0) Eosinophils (%) (Auto) % (0.0-3.0) Basophils (%) (Auto) % (0.0-2.0) Sodium Level 148 MMOL/L (136-145) H Potassium Level 4.9 MMOL/L (3.5-5.1) Chloride Level 107 MMOL/L (98-107) Carbon Dioxide Level 34 MMOL/L (21-32) H Anion Gap 7 mmol/L (5-15) Blood Urea Nitrogen 46 mg/dL (7-18) H Creatinine 1.6 MG/DL (0.55-1.30) H Estimat Glomerular Filtration Rate 30.8 mL/min (>60) Glucose Level 171 MG/DL (74-106) H Calcium Level 8.9 MG/DL (8.5-10.1) Phosphorus Level 2.8 MG/DL (2.5-4.9) Magnesium Level 2.5 MG/DL (1.8-2.4) H Arterial Blood pH 7.402 (7.350-7.450) Arterial Blood Partial Pressure CO2 55.4 mmHg (35.0-45.0) *H Arterial Blood Partial Pressure O2 102.3 mmHg (75.0-100.0) H Arterial Blood HCO3 33.7 mmol/L (22.0-26.0) H Arterial Blood Oxygen Saturation 97.2 % (95-100) Arterial Blood Base Excess 7.6 (-2-2) H Gallo Test Positive Plan Problems: (1) Anemia (2) Acute kidney injury (3) Atrial fibrillation (4) Hyperkalemia (5) Elevated troponin (6) Decubitus skin ulcer Assessment & Plan: Pt presented on admission with Multiple Medical Comorbidities including Covid-19 and Pressure Injuries. Primary Nurse reported Pt has been declining food and medications. Sacral DTPI that is evolving noted to Sacrum(L)6cm x (W)12.5cm.. Scattered Purpuric areas that are indurated noted to R and L cheek. Small wound that is 100% slough (L)0.6cm x (W)0.7cm noted at sacrococcygeal area within base of DTPI. MASD noted to Perineum and skin folds of Medial/posterior aspects of Both upper thighs. Affected areas are erythematous and macerated with scattered satellite lesions. DTPI L Heel (L)3cm x (W)4cm, Base of heel is maroon and fluctuant with small purpuric area (L)0.4cm x (W)0.9cm within base of DTPI. l Foot including toes are mottled and cool to touch. L Heel is boggy. L Heel including toes are Mottled and cool to touch. Tx.Plan: Apply Moisture Barrier Paste to Sacrum. Cover with Optifoam drsg.Change every 3 days and prn. Apply Moisture Barrier Paste to abdominal folds, Perineum and skin folds of both upper thighs. Apply Cavilon Skin Barrier to both heels. Cover each Heel with Optifoam drsg. Change every 7 days and prn. Reposition at least every 2hours or as tolerated. Off-load heels with pillow. (7) Malnutrition Assessment & Plan: She was able to self feed on right hand and took a bite of popsicle and tolerated without s.s of aspiration. After 1st bite, then she refused 2nd bite. After this was done, I offered her a cup of cranberry juice, she took few sips and tolerated without s.s of aspiration. I continued to offer but she refused further PO. A: 1. Functional swallow 2. Failure to thrive 3. abnormal electrolytes in setting of heart failure, NSTEMI, elevated BNP, etc.. P/Rec. 1. Pureed and thin liquid 2.3. Goal of care discussion DAILY ESTIMATED NEEDS: Needs based on Cardiac, pulmonary/ 51kg abw 25-30 kcals/kg [id number] total kcals 1-1.5 g protein/kg 51-76 g total protein 20-25 mL/kg [id number] total fluid mLs NUTRITION DIAGNOSIS: Swallowing difficulty R/T dysphagia, decreased cognitive fxn as evidenced by [employer] recommends pureed moist texture diet at this time. CURRENT DIET:NPO PO DIET RECOMMENDATIONS: Liberalized REGULAR w/ poor PO (texture per [employer]) ADDITIONAL RECOMMENDATIONS: * Calibrated bedscale wt * Monitor PO intake: refusing meds and foods at this time -> rec nonoral feeds w/ continued refusal of PO if part of POC * LOW NA diet w/ PO intake consistently >50% * 4 oz Ensure TID w/ meals (4oz at this time due to poor acceptance, may increase to 8oz w/ good acceptance) (8) Pneumonia due to COVID-19 virus Assessment & Plan: here appears to be increased left pleural fluid and generalized hazy parenchymal opacity, left greater than right. Heart remains enlarged Impression: Increased left pleural effusion Suspect increasing bilateral left greater than right pulmonary edema versus infiltrates worsening intubated on vent weaned extubated (9) Hypothyroidism Ana LuisaJim Nov 08, 2020 11:20
--- NOTE | 2020-11-08 11:42 | NUR ---
NURSE NOTES: obtain order from dr. ybarra to change tube feeding to glucerna 1.5
--- NOTE | 2020-11-08 11:46 | Nephrology Progress Note ---
Assessment/Plan Problem List: (1) Acute kidney injury (2) Anemia (3) Hyperkalemia (4) Elevated troponin (5) Pneumonia due to COVID-19 virus (6) Hypothyroidism Assessment Plan November 08: On oxygen mask. Labs reviewed. Patient full code. Continues to be extubated. Continue pulmonary toilet. Monitor renal parameters. Discussed with RN. Serum creatinine 1.6 at its lowest. November 07: Patient remains on nasal cannula. Full code. Labs reviewed. Low magnesium addressed. Discussed with SERGIO Wilkerson. Continue present care. November 06: Patient is now extubated. Labs reviewed. Medication list reviewed. Serum creatinine stable. Continue post extubation care. November 05: Mental status improved. Labs and medication list reviewed. Serum creatinine 2.2. Weaning trial in process. Continue per consultants. November 04: Full code. Intubated. Labs reviewed. Low potassium addressed. Serum creatinine stable 2.3. Continue per consultants. Weaning as possible. November 03: Remains full code. Remains intubated. FiO2 30%. Discussed with RN. Low potassium addressed. Patient remains on Lasix. Continue to monitor renal parameters. Serum creatinine slightly rising. November 02: Patient remains intubated on ventilator. FiO2 30%. Labs reviewed. Low potassium addressed. Medication list reviewed. Patient on Lasix 40 mg ever y 8 hours. Serum creatinine higher to 2.3. Feeding changed to Nepro. Potassium supplement given. Continue to monitor renal parameters. November 01: Seen in ICU. Now intubated on ventilator. Discussed with RN. Labs results noted. Abnormal electrolytes addressed. Discussed with RN. Continue per consultants. October 31: Patient seen in ICU. Discussed with SERGIO Miller. ABG noted. Patient acidotic. Being transfused. Potassium is being replaced. Due for another ABG and possible intubation if needed. Conferred with pulmonary and cardiology. October 30: Labs reviewed. Potassium elevated. Kayexalate ordered. Continue to monitor hemoglobin hematocrit and renal parameters. Serum creatinine 2.1. Remains on BiPAP. October 29: Seen in ICU. Discussed with SERGIO Wilkerson. Hemoglobin low. Transfuse 1 unit of packed RBCs. Potassium supplements IV given. Midodrine discontinued. Serum creatinine 2.2 stable. Patient remains on BiPAP. Continue per consultants. Continue to monitor hemoglobin hematocrit electrolytes and renal parameters. October 28: Seen in ICU. Remains on BiPAP. Low potassium and low magnesium addressed. Serum creatinine plateaued at 2.2. Continue per current treatment plan. October 27: Patient in ICU. On BiPAP. Serum creatinine rising. Blood pressure more stable. Will give 100 mg Lasix IV push with the hope of reversing oliguria. Medication list reviewed. Continue to monitor renal parameters. October 26: Seen in ICU. On pressors for low blood pressure. Serum creatinine 2.1. Albumin bolus given. Stress dose of steroids initiated. Continue to monitor renal parameters. Continue per consultants. October 25: Patient seen and examined. Trendelenburg. Blood pressure low. Tachycardic. Discussed with RN. Patient to be transferred to ICU. Discussed with ICU charge nurse and hospital charge nurse. Meanwhile patient started on Albumin bolus and 100 cc an hour D5 normal saline. Patient to be started on pressors while in ICU. Patient full code. October 24: No CHEM panel drawn today.. Renal parameters stable. Patient had a GT placed yesterday. Will check labs tomorrow. Medication list reviewed. October 23: Labs reviewed. Renal parameters unchanged. Creatinine 1.9. Continue current management. Medication list reviewed. October 22: Labs reviewed. Serum creatinine lower at 1.8. Patient started on clear liquid. Patient refuses p.o. medications and food at times. Continue per consultants. October 21: Labs reviewed. Serum creatinine unchanged. Continue per consultants. Continue to monitor renal parameters. October 20: Today's labs reviewed. Serum creatinine unchanged. RN reports patient not taking any p.o. meds. Continue per consultants. Serum creatinine appears to be baseline. October 19: Today's labs still not done yet. RN informed. Albumin bolus given again. Continue to monitor electrolytes and renal parameters. Per orders October 18: Patient hypotensive. Due for blood transfusion. Will give albumin bolus. Continue to monitor renal parameters and electrolytes. Labs and medication list reviewed Subjective ROS Limited/Unobtainable: Yes Objective Objective Last 24 Hour Vital Signs Date Time Temp Pulse Resp B/P (MAP) Pulse Ox O2 Delivery O2 Flow Rate FiO2 11/08/20 11:00 97 26 91/38 (55) 11/08/20 10:00 93 27 166/93 (117) 100 11/08/20 09:23 89 11/08/20 09:00 99 26 171/95 (120) 100 11/08/20 08:00 104 11/08/20 08:00 Simple Mask 5.0 Simple Mask 5.0 11/08/20 08:00 98.6 107 27 126/100 (109) 98 11/08/20 08:00 5.0 11/08/20 06:00 94 29 100/80 (87) 11/08/20 05:00 96 31 128/67 (87) 93 11/08/20 04:00 94 11/08/20 04:00 3.0 11/08/20 04:00 Nasal Cannula 2.0 Nasal Cannula 2.0 11/08/20 03:59 94 27 166/70 (102) 11/08/20 03:15 98 26 11/08/20 03:00 95 27 100 11/08/20 02:00 150/99 (116) 11/08/20 01:00 95 26 168/78 (108) 100 11/08/20 00:00 Nasal Cannula 2.0 Nasal Cannula 2.0 11/08/20 00:00 97.8 99 27 128/94 (105) 11/08/20 00:00 100 11/08/20 00:00 6.0 11/07/20 23:00 101 20 122/92 (102) 100 11/07/20 22:00 96 30 141/95 (110) 100 11/07/20 21:07 98 24 192/70 (110) 92 11/07/20 21:00 96 24 73/51 (58) 96 11/07/20 20:00 2.0 28 11/07/20 20:00 93 11/07/20 20:00 95 28 101/43 (62) 100 11/07/20 20:00 Nasal Cannula 2.0 Nasal Cannula 2.0 11/07/20 19:55 100 11/07/20 19:00 97 28 101/36 (57) 100 11/07/20 18:00 104 24 98/62 (74) 100 11/07/20 17:00 101 19 98/74 (82) 95 11/07/20 16:00 102 11/07/20 16:00 2.0 28 11/07/20 16:00 99.0 99 29 95/36 (55) 96 11/07/20 16:00 Nasal Cannula 2.0 Nasal Cannula 2.0 11/07/20 15:52 96 11/07/20 15:00 106 33 106/31 (56) 95 11/07/20 14:00 96 20 171/81 (111) 96 11/07/20 13:00 93 31 162/95 (117) 100 11/07/20 12:00 Nasal Cannula 2.0 Nasal Cannula 2.0 11/07/20 12:00 97.5 95 24 158/85 (109) 100 11/07/20 12:00 2.0 28 11/07/20 12:00 104 Intake and Output 11/07/20 11/08/20 19:00 07:00 Intake Total 820 ml 440 ml Output Total 1450 ml 1375 ml Balance -630 ml -935 ml Free Water 70 ml IV Total 400 ml Tube Feeding 320 ml 440 ml Other 30 ml Output Urine Total 1425 ml 1375 ml Stool Total 25 ml Current Medications Medications (Trade) Dose Ordered Sig/Yolanda Route PRN Reason Start Time Stop Time Status Last Admin Dose Admin Acetaminophen (Tylenol) 650 mg Q4H PRN ORAL Pain Scale (6-10) 10/17/20 19:15 11/16/20 19:14 Acetaminophen (Tylenol) 650 mg Q6H PRN GT Mild Pain (Pain Scale 1-3) 11/04/20 10:45 12/04/20 10:44 11/04/20 18:20 Acetaminophen (Tylenol) 650 mg Q6H PRN GT Temp >100.5 11/04/20 10:45 12/04/20 10:44 Apixaban (Eliquis) 2.5 mg BID ORAL 10/24/20 18:00 01/22/21 17:59 11/08/20 09:23 Chlorhexidine Gluconate (Eve-Hex 2%) 1 applic DAILY@2000 TOPIC 10/22/20 20:00 01/20/21 19:59 11/07/20 20:27 Digoxin (Lanoxin) 0.125 mg DAILY GT 10/30/20 09:00 01/28/21 08:59 11/08/20 09:23 Furosemide (Lasix) 40 mg EVERY 12 HOURS IV 11/04/20 09:00 12/04/20 08:59 11/08/20 09:24 Haloperidol Lactate 5 mg/ Dextrose 56 ml @ 224 mls/hr Q6H PRN IVPB Agitation 11/04/20 20:30 12/19/20 20:29 11/07/20 21:16 Levalbuterol HCl (Xopenex) 1.25 mg Q8HRT HHN 11/08/20 09:30 11/13/20 12:59 Levofloxacin (Levaquin) 750 mg EVERY OTHER DAY GT 11/08/20 09:00 11/15/20 08:59 11/08/20 09:23 Levothyroxine Sodium (Synthroid) 50 mcg DAILY@0630 ORAL 10/19/20 06:30 11/18/20 06:29 11/08/20 06:32 Ondansetron HCl (Zofran) 4 mg Q6H PRN IVP Nausea & Vomiting 10/17/20 21:15 11/16/20 21:14 Pantoprazole (Protonix) 40 mg Q12HR IVP 11/02/20 21:00 11/25/20 20:59 11/08/20 09:24 Potassium Chloride (K-Dur) 40 meq EVERY 12 HOURS GT 11/04/20 21:00 02/02/21 20:59 11/08/20 09:24 Laboratory Tests 11/07/20 12:49: POC Whole Blood Glucose 85 11/07/20 17:37: POC Whole Blood Glucose 123H 11/08/20 05:09: White Blood Count 9.6#, Red Blood Count 3.47L, Hemoglobin 10.1L, Hematocrit 32.9L, Mean Corpuscular Volume 95, Mean Corpuscular Hemoglobin 29.2, Mean Corpuscular Hemoglobin Concent 30.8L, Red Cell Distribution Width 19.0H, Platelet Count 255, Mean Platelet Volume 8.1, Neutrophils (%) (Auto) , Lymphocytes (%) (Auto) , Monocytes (%) (Auto) , Eosinophils (%) (Auto) , Basophils (%) (Auto) , Sodium Level 148H, Potassium Level 4.9, Chloride Level 107, Carbon Dioxide Level 34H, Anion Gap 7, Blood Urea Nitrogen 46H, Creatinine 1.6H, Estimat Glomerular Filtration Rate 30.8, Glucose Level 171H, Calcium Level 8.9, Phosphorus Level 2.8, Magnesium Level 2.5H 11/08/20 08:06: Arterial Blood pH 7.402, Arterial Blood Partial Pressure CO2 55.4*H, Arterial Blood Partial Pressure O2 102.3H, Arterial Blood HCO3 33.7H, Arterial Blood Oxygen Saturation 97.2, Arterial Blood Base Excess 7.6H, Gallo Test Positive Height (Feet): 5 Height (Inches): 0.00 Weight (Pounds): 145 General Appearance: no apparent distress, lethargic EENT: other - On oxygen mask Cardiovascular: tachycardia Respiratory/Chest: decreased breath sounds Abdomen: distended Dustin Gómez MD Nov 08, 2020 11:46
[2020-11-08] MEDS ORDERED: Levalbuterol Inh UD 1.25mg/0.5ml HHN SCH (13:00)
--- NOTE | 2020-11-08 13:45 | NUR ---
NURSE NOTES: Dr. Dumont assessing patient at the beside, informed of the patient ABG and tube feeding change from dr. ybarra. ordered to maintain and monitor patient in ICU for another night;
--- NOTE | 2020-11-08 15:30 | NUR ---
NURSE NOTES: Dr. Reyes assessed patient at the bedside, heart rate remains at 90-110 in atrial fibrillation. aware of digoxin level is 1.7 on 11/07/20. no order to place changes at this time.
--- NOTE | 2020-11-08 15:43 | Cardiac Electrophysiology PN ---
Assessment/Plan Assessment/Plan 1. NSTEMI with elevated troponin of more than 0.2 and hx of prior LA The level has come down to 0.19, but the levels are flat and likely due to renal failure as the creatinine is 2.1. On aspirin and off Lopressor as hypotensive 2. Atrial fibrillation with rapid ventricular response. Off Lopressor for low BP On Dig 0.125 PEG daily and Eliquis 2.5 bid. Dig level 1.7 3. Respiratory failure , Extubated 11/06/20. On Lasix 40 iv bid 4. S/P Septic shock, off Levophed 5. Renal insufficiency. BUN 53 Cr 2.4 6. Status post COVID pneumonia, was tested positive more than two weeks ago. Now is Covid negative 7. Dysphagia, S/P PEG 10/23/[address] Full code. DW Dr. Gómez and Tiralexandre Subjective Subjective S/P PEG by Dr. Tobar 10/23/20 In ICU on Lasix 40 iv bid and off pressors. Covid negative 10/25 and is off isolation In atrial fib with rate around 100. Dig level 1.7 Extubated 11/06/20. On 5 liter NC Objective Last 24 Hour Vital Signs Date Time Temp Pulse Resp B/P (MAP) Pulse Ox O2 Delivery O2 Flow Rate FiO2 11/08/20 15:00 94 27 90/34 (52) 11/08/20 14:00 100 28 106/46 (66) 100 11/08/20 13:00 101 27 107/36 (59) 11/08/20 12:00 99.1 98 24 105/32 (56) 100 11/08/20 12:00 Simple Mask 5.0 Simple Mask 5.0 11/08/20 12:00 5.0 11/08/20 12:00 99 11/08/20 11:00 97 26 91/38 (55) 11/08/20 10:00 93 27 166/93 (117) 100 11/08/20 09:23 89 11/08/20 09:00 99 26 171/95 (120) 100 11/08/20 08:00 104 11/08/20 08:00 Simple Mask 5.0 Simple Mask 5.0 11/08/20 08:00 98.6 107 27 126/100 (109) 98 11/08/20 08:00 5.0 11/08/20 06:00 94 29 100/80 (87) 11/08/20 05:00 96 31 128/67 (87) 93 11/08/20 04:00 94 11/08/20 04:00 3.0 11/08/20 04:00 Nasal Cannula 2.0 Nasal Cannula 2.0 11/08/20 03:59 94 27 166/70 (102) 11/08/20 03:15 98 26 11/08/20 03:00 95 27 100 11/08/20 02:00 150/99 (116) 11/08/20 01:00 95 26 168/78 (108) 100 11/08/20 00:00 Nasal Cannula 2.0 Nasal Cannula 2.0 11/08/20 00:00 97.8 99 27 128/94 (105) 11/08/20 00:00 100 11/08/20 00:00 6.0 11/07/20 23:00 101 20 122/92 (102) 100 11/07/20 22:00 96 30 141/95 (110) 100 11/07/20 21:07 98 24 192/70 (110) 92 11/07/20 21:00 96 24 73/51 (58) 96 11/07/20 20:00 2.0 28 11/07/20 20:00 93 11/07/20 20:00 95 28 101/43 (62) 100 11/07/20 20:00 Nasal Cannula 2.0 Nasal Cannula 2.0 11/07/20 19:55 100 11/07/20 19:00 97 28 101/36 (57) 100 11/07/20 18:00 104 24 98/62 (74) 100 11/07/20 17:00 101 19 98/74 (82) 95 11/07/20 16:00 102 11/07/20 16:00 2.0 28 11/07/20 16:00 99.0 99 29 95/36 (55) 96 11/07/20 16:00 Nasal Cannula 2.0 Nasal Cannula 2.0 11/07/20 15:52 96 Intake and Output 11/07/20 11/08/20 19:00 07:00 Intake Total 820 ml 440 ml Output Total 1450 ml 1375 ml Balance -630 ml -935 ml Free Water 70 ml IV Total 400 ml Tube Feeding 320 ml 440 ml Other 30 ml Output Urine Total 1425 ml 1375 ml Stool Total 25 ml Laboratory Tests Test 11/07/20 17:37 11/08/20 05:09 11/08/20 08:06 POC Whole Blood Glucose 123 MG/DL (74-106) H White Blood Count 9.6 K/UL (4.8-10.8) # Red Blood Count 3.47 M/UL (4.20-5.40) L Hemoglobin 10.1 G/DL (12.0-16.0) L Hematocrit 32.9 % (37.0-47.0) L Mean Corpuscular Volume 95 FL (80-99) Mean Corpuscular Hemoglobin 29.2 PG (27.0-31.0) Mean Corpuscular Hemoglobin Concent 30.8 G/DL (32.0-36.0) L Red Cell Distribution Width 19.0 % (11.6-14.8) H Platelet Count 255 K/UL (150-450) Mean Platelet Volume 8.1 FL (6.5-10.1) Neutrophils (%) (Auto) % (45.0-75.0) Lymphocytes (%) (Auto) % (20.0-45.0) Monocytes (%) (Auto) % (1.0-10.0) Eosinophils (%) (Auto) % (0.0-3.0) Basophils (%) (Auto) % (0.0-2.0) Sodium Level 148 MMOL/L (136-145) H Potassium Level 4.9 MMOL/L (3.5-5.1) Chloride Level 107 MMOL/L (98-107) Carbon Dioxide Level 34 MMOL/L (21-32) H Anion Gap 7 mmol/L (5-15) Blood Urea Nitrogen 46 mg/dL (7-18) H Creatinine 1.6 MG/DL (0.55-1.30) H Estimat Glomerular Filtration Rate 30.8 mL/min (>60) Glucose Level 171 MG/DL (74-106) H Calcium Level 8.9 MG/DL (8.5-10.1) Phosphorus Level 2.8 MG/DL (2.5-4.9) Magnesium Level 2.5 MG/DL (1.8-2.4) H Arterial Blood pH 7.402 (7.350-7.450) Arterial Blood Partial Pressure CO2 55.4 mmHg (35.0-45.0) *H Arterial Blood Partial Pressure O2 102.3 mmHg (75.0-100.0) H Arterial Blood HCO3 33.7 mmol/L (22.0-26.0) H Arterial Blood Oxygen Saturation 97.2 % (95-100) Arterial Blood Base Excess 7.6 (-2-2) H Gallo Test Positive Objective HEAD AND NECK: No JVD. LUNGS: Decreased breath sounds. CARDIOVASCULAR: Irregular S1 and S2 with no gallop. ABDOMEN: Soft.S/P PEG EXTREMITIES: No pitting edema. Terry Reyes MD Nov 08, 2020 15:43
--- NOTE | 2020-11-08 16:00 | NUR ---
NURSE NOTES: Breathing treatment started on patient, changed to simple mask at 40% at 10L/min with cool aerosol mist. tube feeding remains at 40ml/hr on Glucemia 1.5 with no residual noted. rectal tube is draining small liquid stool. rothman remains draining clear urine.
--- NOTE | 2020-11-08 18:00 | NUR ---
NURSE NOTES: nose bridge DTI treated with cavlion, versatel, silvasorb, and place a thin optifoam. small amount of serosanguineous oozing noted. remains on air mattress for sacral wound management.
--- NOTE | 2020-11-08 19:14 | NUR ---
NURSE HAND-OFF REPORT: Latest Vital Signs: Temperature 98.8 , Pulse 94 , B/P 93 /28 , Respiratory Rate 26 , O2 SAT 96 , Simple Mask, O2 Flow Rate 5.0 . Vital Sign Comment: EKG Rhythm: Atrial Fibrillation Rhythm change?: N MD Notified?: - MD Response: Latest Elizabeth Fall Score: 70 Fall Risk: High Risk Safety Measures: Call light Within Reach, Bed Alarm Zone 1, Side Rails Side Rails x3, Bed position Low and Locked. Fall Precautions: Yellow Socks Patient Fall Education Report given to SERGIO Reyez.
[2020-11-08] MEDS: Dyna-Hex 2% Top Sol 2oz TOPIC SCH (21:21)
--- NOTE | 2020-11-08 21:39 | General Progress Note ---
Subjective ROS Limited/Unobtainable: Yes Allergies: Coded Allergies: No Known Allergies (Unverified , 10/17/20) Objective Last 24 Hour Vital Signs Date Time Temp Pulse Resp B/P (MAP) Pulse Ox O2 Delivery O2 Flow Rate FiO2 11/08/20 18:00 94 26 93/28 (49) 96 11/08/20 17:00 93 24 98/55 (69) 100 11/08/20 16:59 85 20 100 Cool Aerosol 10.0 40 78 19 100 11/08/20 16:00 98.8 97 25 98/39 (58) 100 11/08/20 16:00 Simple Mask 5.0 Simple Mask 5.0 11/08/20 16:00 87 11/08/20 16:00 10.0 40 11/08/20 15:00 94 27 90/34 (52) 11/08/20 14:00 100 28 106/46 (66) 100 11/08/20 13:00 101 27 107/36 (59) 11/08/20 12:00 99.1 98 24 105/32 (56) 100 11/08/20 12:00 Simple Mask 5.0 Simple Mask 5.0 11/08/20 12:00 5.0 11/08/20 12:00 99 11/08/20 11:00 97 26 91/38 (55) 11/08/20 10:00 93 27 166/93 (117) 100 11/08/20 09:23 89 11/08/20 09:00 99 26 171/95 (120) 100 11/08/20 08:00 104 11/08/20 08:00 Simple Mask 5.0 Simple Mask 5.0 11/08/20 08:00 98.6 107 27 126/100 (109) 98 11/08/20 08:00 5.0 11/08/20 06:00 94 29 100/80 (87) 11/08/20 05:00 96 31 128/67 (87) 93 11/08/20 04:00 94 11/08/20 04:00 3.0 11/08/20 04:00 Nasal Cannula 2.0 Nasal Cannula 2.0 11/08/20 03:59 94 27 166/70 (102) 11/08/20 03:15 98 26 11/08/20 03:00 95 27 100 11/08/20 02:00 150/99 (116) 11/08/20 01:00 95 26 168/78 (108) 100 11/08/20 00:00 Nasal Cannula 2.0 Nasal Cannula 2.0 11/08/20 00:00 97.8 99 27 128/94 (105) 11/08/20 00:00 100 11/08/20 00:00 6.0 11/07/20 23:00 101 20 122/92 (102) 100 11/07/20 22:00 96 30 141/95 (110) 100 Intake and Output 11/07/20 11/08/20 19:00 07:00 Intake Total 820 ml 440 ml Output Total 1450 ml 1375 ml Balance -630 ml -935 ml Free Water 70 ml IV Total 400 ml Tube Feeding 320 ml 440 ml Other 30 ml Output Urine Total 1425 ml 1375 ml Stool Total 25 ml Laboratory Tests 11/08/20 05:09: White Blood Count 9.6#, Red Blood Count 3.47L, Hemoglobin 10.1L, Hematocrit 32.9L, Mean Corpuscular Volume 95, Mean Corpuscular Hemoglobin 29.2, Mean Corpuscular Hemoglobin Concent 30.8L, Red Cell Distribution Width 19.0H, Platelet Count 255, Mean Platelet Volume 8.1, Neutrophils (%) (Auto) , Lymphocytes (%) (Auto) , Monocytes (%) (Auto) , Eosinophils (%) (Auto) , Basophils (%) (Auto) , Sodium Level 148H, Potassium Level 4.9, Chloride Level 107, Carbon Dioxide Level 34H, Anion Gap 7, Blood Urea Nitrogen 46H, Creatinine 1.6H, Estimat Glomerular Filtration Rate 30.8, Glucose Level 171H, Calcium Level 8.9, Phosphorus Level 2.8, Magnesium Level 2.5H 11/08/20 08:06: Arterial Blood pH 7.402, Arterial Blood Partial Pressure CO2 55.4*H, Arterial Blood Partial Pressure O2 102.3H, Arterial Blood HCO3 33.7H, Arterial Blood Oxygen Saturation 97.2, Arterial Blood Base Excess 7.6H, Gallo Test Positive 11/08/20 11:42: POC Whole Blood Glucose 155H 11/08/20 16:53: POC Whole Blood Glucose 136H Height (Feet): 5 Height (Inches): 0.00 Weight (Pounds): 145 Assessment/Plan Problem List: (1) Anemia ICD Codes: D64.9 - Anemia, unspecified SNOMED: 190552552 (2) Acute kidney injury ICD Codes: N17.9 - Acute kidney failure, unspecified SNOMED: 78605233, 1082042 (3) Atrial fibrillation ICD Codes: I48.91 - Unspecified atrial fibrillation SNOMED: 25662342 (4) Elevated troponin ICD Codes: R77.8 - Other specified abnormalities of plasma proteins SNOMED: 500843355, 683990177, 250984661 (5) Malnutrition ICD Codes: E46 - Unspecified protein-calorie malnutrition SNOMED: 94547086 (6) Pneumonia due to COVID-19 virus ICD Codes: U07.1 - COVID-19; J12.82 - Pneumonia due to coronavirus disease 2019 SNOMED: 198872928085210832 (7) Hypothyroidism ICD Codes: E03.9 - Hypothyroidism, unspecified SNOMED: 55415363 Status: progressing Assessment/Plan: on nonrebreather resp insuff afebrile continue feeding with no significant residual pna sepsis Neri Dumont MD Nov 08, 2020 21:39
[2020-11-09] VITALS (29 sets, daily range): BP systolic 91–158; BP diastolic 32–88
[2020-11-09 05:48] LABS: HEMATOCRIT 29.6 % (37.0-47.0); HEMOGLOBIN 9.1 G/DL (12.0-16.0); MEAN CORPUSCULAR VOLUME 96 FL (80-99); PLATELET COUNT 250 K/UL (150-450); RED BLOOD COUNT 3.09 M/UL (4.20-5.40); RED CELL DISTRIBUTION WIDTH 18.7 % (11.6-14.8); WHITE BLOOD COUNT 9.1 K/UL (4.8-10.8)
[2020-11-09 06:04] LABS: ALBUMIN 2.2 G/DL (3.4-5.0); ALBUMIN/GLOBULIN RATIO 0.6 (1.0-2.7); BILIRUBIN,TOTAL 0.5 MG/DL (0.2-1.0); CALCIUM 8.6 MG/DL (8.5-10.1); CREATININE 1.5 MG/DL (0.55-1.30); PHOSPHORUS 2.7 MG/DL (2.5-4.9)
--- NOTE | 2020-11-09 06:44 | Hematology/Onc Progress Note ---
Assessment/Plan Assessment/Plan Assessment and recs # Anemia r/o gi bleed --> anemia panel has been ordered-->reviewed --> hgb 8.1->9.3->9.7-->9.5-->10.5-->10.2-->9.1->8.6-->7.8-->8.1-->9.2-->8.7-->9.1 --> no hemolysis is noted --> transfuse on prn basis --> 1 unit prbc 10/30 # Thrombocytopenia likely due to reactive process --> plt 138-->149-->176-->162 --> imaging prn --> smear has been reviewed --> viral w/u neg # Hypercoag disorder with Atrial fibrillation --> consider anticoag as per cards --> if bleeding, consider hold anticoag # Elevated trop --> per cards # Hyperkalemia --> per renal # Acute kidney injury --> per renal # Resp failure on bipap # Recently COVID-19 positive # Dvt ppx scds --> lovenox sq Appreciate consultation and dw rn Subjective Constitutional: Denies: no symptoms, chills, fever, malaise, weakness, other HEENT: Denies: no symptoms, eye pain, blurred vision, tearing, double vision, ear pain, ear discharge, nose pain, nose congestion, throat pain, throat swelling, mouth pain, mouth swelling, other Cardiovascular: Denies: no symptoms, chest pain, edema, irregular heart rate, lightheadedness, palpitations, syncope, other Respiratory: Denies: no symptoms, cough, shortness of breath, SOB with excertion, SOB at rest, sputum, wheezing, other Gastrointestinal/Abdominal: Denies: no symptoms, abdomen distended, abdominal pain, black stools, tarry stools, blood in stool, constipated, diarrhea, difficulty swallowing, nausea, poor appetite, poor fluid intake, rectal bleedin g, vomiting, other Genitourinary: Denies: no symptoms, burning, discharge, frequency, flank pain, hematuria, incontinence, pain, urgency, other Neurologic/Psychiatric: Denies: no symptoms, anxiety, depressed, emotional problems, headache, numbness, paresthesia, pre-existing deficit, seizure, tingling, tremors, weakness, other Endocrine: Denies: no symptoms, excessive sweating, flushing, intolerance to cold, intolerance to heat, increased hunger, increased thirst, increased urine, unexplained weight gain, unexplained weight loss, other Allergies: Coded Allergies: No Known Allergies (Unverified , 10/17/20) Subjective 10/19 cbc is pending, did get blood transfusion last night, pending results 10/20 meds noted, no bleeding, labs reviewed, rosio rn, no new changes 10/21 on 4l nc, has been refusing labs, meds noted, no bleeding 10/22 nc, refusing meds labs reviewed, rosio rn 10/23 is potentially for egd this am, no bleeding, cbc is noted 10/25 meds noted, no bleeidng, is on nc, no night sweats, bp bolus pending 10/26 bed bath done, meds noted, no bleeding, cbc reviewed from am 10/27 lethargic, on bipap, levophed, meds reviewed 10/28 icu, lethargic, remains on bipap, pressors 10/29 icu, lethargic, meds noted, on bipap, labs noted 10/30 icu, bipap, to get 1 unit prbc, meds reviewed, labs noted 10/31 icu, on vent, no bipap 11/01: remains in icu, no bleeding reported 11/02 icu, lethargic, on vent, with gt feeds on hold, labs noted 11/03 icu, intubated on vent, lethargic, labs reviewed, meds noted 11/04 icu, remains intuabted is on vent, lethargic, labs reviewed 11/05 icu, nv, on vent, lethargic, labs noted 11/06 icu, extubated, is on simple mask, meds noted 11/08 in icu, on simple mask and bipap prn, labs reviewed 11/09 icu, labs reviewed, on face mask, meds noted Objective Objective Current Medications Medications (Trade) Dose Ordered Sig/Yolanda Route PRN Reason Start Time Stop Time Status Last Admin Dose Admin Acetaminophen (Tylenol) 650 mg Q4H PRN ORAL Pain Scale (6-10) 10/17/20 19:15 11/16/20 19:14 Acetaminophen (Tylenol) 650 mg Q6H PRN GT Mild Pain (Pain Scale 1-3) 11/04/20 10:45 12/04/20 10:44 11/04/20 18:20 Acetaminophen (Tylenol) 650 mg Q6H PRN GT Temp >100.5 11/04/20 10:45 12/04/20 10:44 Apixaban (Eliquis) 2.5 mg BID ORAL 10/24/20 18:00 01/22/21 17:59 11/08/20 17:37 Chlorhexidine Gluconate (Eve-Hex 2%) 1 applic DAILY@2000 TOPIC 10/22/20 20:00 01/20/21 19:59 11/08/20 21:21 Digoxin (Lanoxin) 0.125 mg DAILY GT 10/30/20 09:00 01/28/21 08:59 11/08/20 09:23 Furosemide (Lasix) 40 mg EVERY 12 HOURS IV 11/04/20 09:00 12/04/20 08:59 11/08/20 21:23 Haloperidol Lactate 5 mg/ Dextrose 56 ml @ 224 mls/hr Q6H PRN IVPB Agitation 11/04/20 20:30 12/19/20 20:29 11/07/20 21:16 Levalbuterol HCl (Xopenex) 1.25 mg Q8HRT HHN 11/08/20 09:30 11/13/20 12:59 11/08/20 23:09 Levofloxacin (Levaquin) 750 mg EVERY OTHER DAY GT 11/08/20 09:00 11/15/20 08:59 11/08/20 09:23 Levothyroxine Sodium (Synthroid) 50 mcg DAILY@0630 ORAL 10/19/20 06:30 11/18/20 06:29 11/08/20 06:32 Ondansetron HCl (Zofran) 4 mg Q6H PRN IVP Nausea & Vomiting 10/17/20 21:15 11/16/20 21:14 Pantoprazole (Protonix) 40 mg Q12HR IVP 11/02/20 21:00 11/25/20 20:59 11/08/20 21:23 Potassium Chloride (K-Dur) 40 meq EVERY 12 HOURS GT 11/04/20 21:00 02/02/21 20:59 11/08/20 21:21 Last 24 Hour Vital Signs Date Time Temp Pulse Resp B/P (MAP) Pulse Ox O2 Delivery O2 Flow Rate FiO2 11/09/20 04:00 10.0 40 11/09/20 04:00 Simple Mask 5.0 Simple Mask 5.0 11/09/20 04:00 104 32 107/43 (64) 94 11/09/20 03:52 104 11/09/20 03:00 103 29 98/39 (58) 93 11/09/20 02:00 103 31 109/42 (64) 95 11/09/20 01:00 104 31 102/49 (66) 94 11/09/20 00:00 107 32 109/40 (63) 95 11/09/20 00:00 Simple Mask 5.0 Simple Mask 5.0 11/09/20 00:00 100 11/08/20 23:20 99 18 100 Cool Aerosol 10.0 40 117 18 95 11/08/20 23:00 101 29 112/54 (73) 90 11/08/20 22:00 105 35 123/45 (71) 96 11/08/20 22:00 105 35 123/45 (71) 96 11/08/20 21:00 104 29 117/46 (69) 95 11/08/20 21:00 104 29 117/46 (69) 95 11/08/20 20:00 94 11/08/20 20:00 99 31 110/41 (64) 92 11/08/20 20:00 10.0 40 11/08/20 20:00 Simple Mask 5.0 Simple Mask 5.0 11/08/20 20:00 98.5 99 31 110/41 (64) 92 11/08/20 19:00 98 26 105/42 (63) 96 11/08/20 19:00 98 26 105/42 (63) 96 11/08/20 18:00 94 26 93/28 (49) 96 11/08/20 17:00 93 24 98/55 (69) 100 11/08/20 16:59 85 20 100 Cool Aerosol 10.0 40 78 19 100 11/08/20 16:00 98.8 97 25 98/39 (58) 100 11/08/20 16:00 Simple Mask 5.0 Simple Mask 5.0 11/08/20 16:00 87 11/08/20 16:00 10.0 40 11/08/20 15:00 94 27 90/34 (52) 11/08/20 14:00 100 28 106/46 (66) 100 11/08/20 13:00 101 27 107/36 (59) 11/08/20 12:00 99.1 98 24 105/32 (56) 100 11/08/20 12:00 Simple Mask 5.0 Simple Mask 5.0 11/08/20 12:00 5.0 11/08/20 12:00 99 11/08/20 11:00 97 26 91/38 (55) 11/08/20 10:00 93 27 166/93 (117) 100 11/08/20 09:23 89 11/08/20 09:00 99 26 171/95 (120) 100 11/08/20 08:00 104 11/08/20 08:00 Simple Mask 5.0 Simple Mask 5.0 11/08/20 08:00 98.6 107 27 126/100 (109) 98 11/08/20 08:00 5.0 11/08/20 06:00 94 29 100/80 (87) 11/08/20 05:00 96 31 128/67 (87) 93 11/08/20 04:00 94 11/08/20 04:00 3.0 11/08/20 04:00 Nasal Cannula 2.0 Nasal Cannula 2.0 11/08/20 03:59 94 27 166/70 (102) 11/08/20 03:15 98 26 11/08/20 03:00 95 27 100 11/08/20 02:00 150/99 (116) 11/08/20 01:00 95 26 168/78 (108) 100 11/08/20 00:00 Nasal Cannula 2.0 Nasal Cannula 2.0 11/08/20 00:00 97.8 99 27 128/94 (105) 11/08/20 00:00 100 11/08/20 00:00 6.0 11/07/20 23:00 101 20 122/92 (102) 100 11/07/20 22:00 96 30 141/95 (110) 100 11/07/20 21:07 98 24 192/70 (110) 92 11/07/20 21:00 96 24 73/51 (58) 96 11/07/20 20:00 2.0 28 11/07/20 20:00 93 11/07/20 20:00 95 28 101/43 (62) 100 11/07/20 20:00 Nasal Cannula 2.0 Nasal Cannula 2.0 11/07/20 19:55 100 11/07/20 19:00 97 28 101/36 (57) 100 11/07/20 18:00 104 24 98/62 (74) 100 11/07/20 17:00 101 19 98/74 (82) 95 11/07/20 16:00 102 11/07/20 16:00 2.0 28 11/07/20 16:00 99.0 99 29 95/36 (55) 96 11/07/20 16:00 Nasal Cannula 2.0 Nasal Cannula 2.0 11/07/20 15:52 96 11/07/20 15:00 106 33 106/31 (56) 95 11/07/20 14:00 96 20 171/81 (111) 96 11/07/20 13:00 93 31 162/95 (117) 100 11/07/20 12:00 Nasal Cannula 2.0 Nasal Cannula 2.0 11/07/20 12:00 97.5 95 24 158/85 (109) 100 11/07/20 12:00 2.0 28 11/07/20 12:00 104 11/07/20 11:15 95 11/07/20 11:00 90 29 153/71 (98) 100 11/07/20 10:00 87 28 150/69 (96) 100 11/07/20 09:00 93 17 132/59 (83) 99 11/07/20 08:25 91 11/07/20 08:01 99.0 94 26 137/68 (91) 100 11/07/20 08:00 94 26 137/68 (91) 100 11/07/20 08:00 109 11/07/20 08:00 Nasal Cannula 2.0 Nasal Cannula 2.0 11/07/20 07:00 92 28 143/66 (91) 100 11/07/20 07:00 2.0 28 Intake and Output 11/08/20 11/09/20 19:00 07:00 Intake Total 660 ml 370 ml Output Total 2335 ml 350 ml Balance -1675 ml 20 ml Free Water 140 ml 50 ml Tube Feeding 480 ml 320 ml Other 40 ml Output Urine Total 2275 ml 350 ml Stool Total 60 ml Labs Test 11/06/20 08:54 11/07/20 03:20 11/07/20 08:08 11/07/20 12:49 Arterial Blood pH 7.263 (7.350-7.450) 7.387 (7.350-7.450) Arterial Blood Partial Pressure CO2 64.5 mmHg (35.0-45.0) 50.7 mmHg (35.0-45.0) Arterial Blood Partial Pressure O2 78.3 mmHg (75.0-100.0) 64.9 mmHg (75.0-100.0) Arterial Blood HCO3 28.5 mmol/L (22.0-26.0) 29.8 mmol/L (22.0-26.0) Arterial Blood Oxygen Saturation 94.8 % (95-100) 92.3 % (95-100) Arterial Blood Base Excess 0.4 (-2-2) 4.0 (-2-2) Gallo Test Positive Positive White Blood Count 6.1 K/UL (4.8-10.8) Red Blood Count 3.32 M/UL (4.20-5.40) Hemoglobin 9.5 G/DL (12.0-16.0) Hematocrit 31.0 % (37.0-47.0) Mean Corpuscular Volume 93 FL (80-99) Mean Corpuscular Hemoglobin 28.7 PG (27.0-31.0) Mean Corpuscular Hemoglobin Concent 30.8 G/DL (32.0-36.0) Red Cell Distribution Width 18.6 % (11.6-14.8) Platelet Count 219 K/UL (150-450) Mean Platelet Volume 8.0 FL (6.5-10.1) Neutrophils (%) (Auto) % (45.0-75.0) Lymphocytes (%) (Auto) % (20.0-45.0) Monocytes (%) (Auto) % (1.0-10.0) Eosinophils (%) (Auto) % (0.0-3.0) Basophils (%) (Auto) % (0.0-2.0) Differential Total Cells Counted 100 Neutrophils % (Manual) 88 % (45-75) Lymphocytes % (Manual) 7 % (20-45) Monocytes % (Manual) 5 % (1-10) Eosinophils % (Manual) 0 % (0-3) Basophils % (Manual) 0 % (0-2) Band Neutrophils 0 % (0-8) Platelet Estimate Adequate Platelet Morphology Normal Hypochromasia 1+ Anisocytosis 1+ Sodium Level 147 MMOL/L (136-145) Potassium Level 4.1 MMOL/L (3.5-5.1) Chloride Level 109 MMOL/L (98-107) Carbon Dioxide Level 33 MMOL/L (21-32) Anion Gap 6 mmol/L (5-15) Blood Urea Nitrogen 45 mg/dL (7-18) Creatinine 1.7 MG/DL (0.55-1.30) Estimat Glomerular Filtration Rate 28.7 mL/min (>60) Glucose Level 91 MG/DL (74-106) Calcium Level 8.6 MG/DL (8.5-10.1) Phosphorus Level 2.9 MG/DL (2.5-4.9) Magnesium Level 1.5 MG/DL (1.8-2.4) Total Bilirubin 0.4 MG/DL (0.2-1.0) Aspartate Amino Transf (AST/SGOT) 10 U/L (15-37) Alanine Aminotransferase (ALT/SGPT) 15 U/L (12-78) Alkaline Phosphatase 80 U/L (46-116) C-Reactive Protein, Quantitative 8.6 mg/dL (0.00-0.90) Pro-B-Type Natriuretic Peptide > 46998 pg/mL (0-125) Total Protein 5.3 G/DL (6.4-8.2) Albumin 1.9 G/DL (3.4-5.0) Globulin 3.4 g/dL Albumin/Globulin Ratio 0.6 (1.0-2.7) Digoxin Level 1.7 NG/ML (0.9-2.0) POC Whole Blood Glucose 85 MG/DL (74-106) Test 11/07/20 17:37 11/08/20 05:09 11/08/20 08:06 11/08/20 11:42 POC Whole Blood Glucose 123 MG/DL (74-106) 155 MG/DL (74-106) White Blood Count 9.6 K/UL (4.8-10.8) Red Blood Count 3.47 M/UL (4.20-5.40) Hemoglobin 10.1 G/DL (12.0-16.0) Hematocrit 32.9 % (37.0-47.0) Mean Corpuscular Volume 95 FL (80-99) Mean Corpuscular Hemoglobin 29.2 PG (27.0-31.0) Mean Corpuscular Hemoglobin Concent 30.8 G/DL (32.0-36.0) Red Cell Distribution Width 19.0 % (11.6-14.8) Platelet Count 255 K/UL (150-450) Mean Platelet Volume 8.1 FL (6.5-10.1) Neutrophils (%) (Auto) % (45.0-75.0) Lymphocytes (%) (Auto) % (20.0-45.0) Monocytes (%) (Auto) % (1.0-10.0) Eosinophils (%) (Auto) % (0.0-3.0) Basophils (%) (Auto) % (0.0-2.0) Sodium Level 148 MMOL/L (136-145) Potassium Level 4.9 MMOL/L (3.5-5.1) Chloride Level 107 MMOL/L (98-107) Carbon Dioxide Level 34 MMOL/L (21-32) Anion Gap 7 mmol/L (5-15) Blood Urea Nitrogen 46 mg/dL (7-18) Creatinine 1.6 MG/DL (0.55-1.30) Estimat Glomerular Filtration Rate 30.8 mL/min (>60) Glucose Level 171 MG/DL (74-106) Calcium Level 8.9 MG/DL (8.5-10.1) Phosphorus Level 2.8 MG/DL (2.5-4.9) Magnesium Level 2.5 MG/DL (1.8-2.4) Arterial Blood pH 7.402 (7.350-7.450) Arterial Blood Partial Pressure CO2 55.4 mmHg (35.0-45.0) Arterial Blood Partial Pressure O2 102.3 mmHg (75.0-100.0) Arterial Blood HCO3 33.7 mmol/L (22.0-26.0) Arterial Blood Oxygen Saturation 97.2 % (95-100) Arterial Blood Base Excess 7.6 (-2-2) Gallo Test Positive Test 11/08/20 16:53 11/09/20 05:00 POC Whole Blood Glucose 136 MG/DL (74-106) White Blood Count 9.1 K/UL (4.8-10.8) Red Blood Count 3.09 M/UL (4.20-5.40) Hemoglobin 9.1 G/DL (12.0-16.0) Hematocrit 29.6 % (37.0-47.0) Mean Corpuscular Volume 96 FL (80-99) Mean Corpuscular Hemoglobin 29.4 PG (27.0-31.0) Mean Corpuscular Hemoglobin Concent 30.7 G/DL (32.0-36.0) Red Cell Distribution Width 18.7 % (11.6-14.8) Platelet Count 250 K/UL (150-450) Mean Platelet Volume 7.5 FL (6.5-10.1) Neutrophils (%) (Auto) % (45.0-75.0) Lymphocytes (%) (Auto) % (20.0-45.0) Monocytes (%) (Auto) % (1.0-10.0) Eosinophils (%) (Auto) % (0.0-3.0) Basophils (%) (Auto) % (0.0-2.0) Sodium Level 150 MMOL/L (136-145) Potassium Level 5.0 MMOL/L (3.5-5.1) Chloride Level 109 MMOL/L (98-107) Carbon Dioxide Level 40 MMOL/L (21-32) Anion Gap 1 mmol/L (5-15) Blood Urea Nitrogen 48 mg/dL (7-18) Creatinine 1.5 MG/DL (0.55-1.30) Estimat Glomerular Filtration Rate 33.2 mL/min (>60) Glucose Level 161 MG/DL (74-106) Calcium Level 8.6 MG/DL (8.5-10.1) Phosphorus Level 2.7 MG/DL (2.5-4.9) Magnesium Level 2.3 MG/DL (1.8-2.4) Total Bilirubin 0.5 MG/DL (0.2-1.0) Aspartate Amino Transf (AST/SGOT) 13 U/L (15-37) Alanine Aminotransferase (ALT/SGPT) 16 U/L (12-78) Alkaline Phosphatase 89 U/L (46-116) Total Protein 6.1 G/DL (6.4-8.2) Albumin 2.2 G/DL (3.4-5.0) Globulin 3.9 g/dL Albumin/Globulin Ratio 0.6 (1.0-2.7) Height (Feet): 5 Height (Inches): 0.00 Weight (Pounds): 145 Objective Physical Exam General: Awake and alert, no acute distress HEENT: NC/AT. EOMI. Cardiovascular: Irregularly irregular rhythm. Resp: Normal work of breathing. ++simple face mask Abdomen: Abdomen is soft, nondistended. Nontender Skin: Intact. No abrasions, laceration or rash over the exposed skin MSK: Normal tone and bulk. Moving all extremities. Neuro: Awake and alert. Mentating appropriately. Hawk Ma MD Nov 09, 2020 06:44
--- NOTE | 2020-11-09 07:15 | NUR ---
NURSE NOTES: Report received from Aissatou Sanchez, Travelling RN.Pt asleep noted no resp distress on simple mask at 40% Fio2,no signs of pain or discomfort,AFIB on the monitor,GT feeding Glucerna 1.5 at 40 ml/hr,no residual noted,Green cath draining yellow urine,Rectal tube in placed,skin warm and dry with LT SC TLC intact,SR up x2 HOB elevated,bed lock in lowest position will continue with plans of care.
[2020-11-09] MEDS: Levalbuterol Inh UD 1.25mg/0.5ml HHN SCH ×3 (07:58→23:05)
--- NOTE | 2020-11-09 08:08 | NUR ---
RESPIRATORY NOTE: PT received stable on cool aerosol @ 10 Lpm / 40% FiO2. PT's baseline saturation is 90% to 92%. HHN TX was given and tolerated well. Saturation post HHN TX is 97%. No s/s of respiratory distress are noted at this time. Will continue to closely monitor.
[2020-11-09] MEDS: Eliquis 2.5mg tablet ORAL SCH ×2 (08:40→17:50)
[2020-11-09] MEDS: Digoxin 0.125mg tab GT SCH (08:40)
[2020-11-09] MEDS: Pantoprazole Inj IVP SCH ×2 (08:41→21:18)
--- NOTE | 2020-11-09 09:11 | Pulmonology Progress Note ---
Subjective ROS Limited/Unobtainable: Yes Interval Events: Intubated 10/31/20; extubated 11/05/20; now on BiPAP Constitutional: Reports: no symptoms HEENT: Repors: no symptoms Respiratory: Reports: no symptoms Cardiovascular: Reports: no symptoms Gastrointestinal/Abdominal: Reports: diarrhea Psychiatric: Reports: other Allergies: Coded Allergies: No Known Allergies (Unverified , 10/17/20) All Systems: reviewed and negative except above Objective Last 24 Hour Vital Signs Date Time Temp Pulse Resp B/P (MAP) Pulse Ox O2 Delivery O2 Flow Rate FiO2 11/09/20 08:40 90 11/09/20 08:13 90 11/09/20 08:09 98.7 89 28 118/43 (68) 96 11/09/20 08:08 Simple Mask 5.0 Simple Mask 5.0 11/09/20 08:07 10.0 40 11/09/20 07:58 100 26 97 Cool Aerosol 10.0 40 110 22 90 11/09/20 07:11 102 31 105/41 (62) 94 11/09/20 06:30 102 29 115/44 (67) 94 11/09/20 06:00 99 29 108/41 (63) 94 11/09/20 05:00 96 29 92/39 (56) 93 11/09/20 04:00 10.0 40 11/09/20 04:00 Simple Mask 5.0 Simple Mask 5.0 11/09/20 04:00 104 32 107/43 (64) 94 11/09/20 03:52 104 11/09/20 03:00 103 29 98/39 (58) 93 11/09/20 02:00 103 31 109/42 (64) 95 11/09/20 01:00 104 31 102/49 (66) 94 11/09/20 00:00 107 32 109/40 (63) 95 11/09/20 00:00 Simple Mask 5.0 Simple Mask 5.0 11/09/20 00:00 100 11/08/20 23:20 99 18 100 Cool Aerosol 10.0 40 117 18 95 11/08/20 23:00 101 29 112/54 (73) 90 11/08/20 22:00 105 35 123/45 (71) 96 11/08/20 22:00 105 35 123/45 (71) 96 11/08/20 21:00 104 29 117/46 (69) 95 11/08/20 21:00 104 29 117/46 (69) 95 11/08/20 20:00 94 11/08/20 20:00 99 31 110/41 (64) 92 11/08/20 20:00 10.0 40 11/08/20 20:00 Simple Mask 5.0 Simple Mask 5.0 11/08/20 20:00 98.5 99 31 110/41 (64) 92 11/08/20 19:00 98 26 105/42 (63) 96 11/08/20 19:00 98 26 105/42 (63) 96 11/08/20 18:00 94 26 93/28 (49) 96 11/08/20 17:00 93 24 98/55 (69) 100 11/08/20 16:59 85 20 100 Cool Aerosol 10.0 40 78 19 100 11/08/20 16:00 98.8 97 25 98/39 (58) 100 11/08/20 16:00 Simple Mask 5.0 Simple Mask 5.0 11/08/20 16:00 87 11/08/20 16:00 10.0 40 11/08/20 15:00 94 27 90/34 (52) 11/08/20 14:00 100 28 106/46 (66) 100 11/08/20 13:00 101 27 107/36 (59) 11/08/20 12:00 99.1 98 24 105/32 (56) 100 11/08/20 12:00 Simple Mask 5.0 Simple Mask 5.0 11/08/20 12:00 5.0 11/08/20 12:00 99 11/08/20 11:00 97 26 91/38 (55) 11/08/20 10:00 93 27 166/93 (117) 100 11/08/20 09:23 89 Intake and Output 11/08/20 11/09/20 19:00 07:00 Intake Total 660 ml 450 ml Output Total 2335 ml 1100 ml Balance -1675 ml -650 ml Free Water 140 ml 50 ml Tube Feeding 480 ml 400 ml Other 40 ml Output Urine Total 2275 ml 1100 ml Stool Total 60 ml Objective appears less coherent today General Appearance: no acute distress HEENT: atraumatic Respiratory: lungs clear Cardiovascular: normal rate, regular rhythm Abdomen: soft, non tender, other - s/p PEG Laboratory Tests 11/08/20 11:42: POC Whole Blood Glucose 155H 11/08/20 16:53: POC Whole Blood Glucose 136H 11/09/20 05:00: White Blood Count 9.1, Red Blood Count 3.09L, Hemoglobin 9.1L, Hematocrit 29.6L, Mean Corpuscular Volume 96, Mean Corpuscular Hemoglobin 29.4, Mean Corpuscular Hemoglobin Concent 30.7L, Red Cell Distribution Width 18.7H, Platelet Count 250, Mean Platelet Volume 7.5, Neutrophils (%) (Auto) , Lymphocytes (%) (Auto) , Monocytes (%) (Auto) , Eosinophils (%) (Auto) , Basophils (%) (Auto) , Different ial Total Cells Counted 100, Neutrophils % (Manual) 91H, Lymphocytes % (Manual) 5L, Monocytes % (Manual) 1, Eosinophils % (Manual) 0, Basophils % (Manual) 0, Myelocytes % 1H, Promyelocytes % 1H, Band Neutrophils 1, Platelet Estimate Adequate, Platelet Morphology Normal, Ovalocytes Occasional, Sodium Level 150H, Potassium Level 5.0, Chloride Level 109H, Carbon Dioxide Level 40H, Anion Gap 1L , Blood Urea Nitrogen 48H, Creatinine 1.5H, Estimat Glomerular Filtration Rate 33.2, Glucose Level 161H, Calcium Level 8.6, Phosphorus Level 2.7, Magnesium Level 2.3, Total Bilirubin 0.5, Aspartate Amino Transf (AST/SGOT) 13L, Alanine Aminotransferase (ALT/SGPT) 16, Alkaline Phosphatase 89, Total Protein 6.1L, Albumin 2.2L, Globulin 3.9, Albumin/Globulin Ratio 0.6L Current Medications Medications (Trade) Dose Ordered Sig/Yolanda Route PRN Reason Start Time Stop Time Status Last Admin Dose Admin Acetaminophen (Tylenol) 650 mg Q4H PRN ORAL Pain Scale (6-10) 10/17/20 19:15 11/16/20 19:14 Acetaminophen (Tylenol) 650 mg Q6H PRN GT Mild Pain (Pain Scale 1-3) 11/04/20 10:45 12/04/20 10:44 11/04/20 18:20 Acetaminophen (Tylenol) 650 mg Q6H PRN GT Temp >100.5 11/04/20 10:45 12/04/20 10:44 Apixaban (Eliquis) 2.5 mg BID ORAL 10/24/20 18:00 01/22/21 17:59 11/09/20 08:40 Chlorhexidine Gluconate (Eve-Hex 2%) 1 applic DAILY@2000 TOPIC 10/22/20 20:00 01/20/21 19:59 11/08/20 21:21 Digoxin (Lanoxin) 0.125 mg DAILY GT 10/30/20 09:00 01/28/21 08:59 11/09/20 08:40 Furosemide (Lasix) 40 mg EVERY 12 HOURS IV 11/04/20 09:00 12/04/20 08:59 11/09/20 08:41 Haloperidol Lactate 5 mg/ Dextrose 56 ml @ 224 mls/hr Q6H PRN IVPB Agitation 11/04/20 20:30 12/19/20 20:29 11/07/20 21:16 Levalbuterol HCl (Xopenex) 1.25 mg Q8HRT HHN 11/08/20 09:30 11/13/20 12:59 11/09/20 07:58 Levofloxacin (Levaquin) 750 mg EVERY OTHER DAY GT 11/08/20 09:00 11/15/20 08:59 11/08/20 09:23 Levothyroxine Sodium (Synthroid) 50 mcg DAILY@0630 ORAL 10/19/20 06:30 11/18/20 06:29 11/09/20 07:07 Ondansetron HCl (Zofran) 4 mg Q6H PRN IVP Nausea & Vomiting 10/17/20 21:15 11/16/20 21:14 Pantoprazole (Protonix) 40 mg Q12HR IVP 11/02/20 21:00 11/25/20 20:59 11/09/20 08:41 Potassium Chloride (K-Dur) 40 meq EVERY 12 HOURS GT 11/04/20 21:00 02/02/21 20:59 11/08/20 21:21 Assessment/Plan Assessment/Plan 1. CHF. - CXR (11/07) pulmonary vascular congestion and small pleural effusions. 2. CAD/previous non-STEMI. 3. [facility] resident. 4. Bradycardia. 5. Atrial fibrillation. -Started on Eliquis 6. Renal insufficiency. -Nephro following 7. Troponin leak. - Cardio following 8. COVID-19 pneumonia, without fever or leukocytosis - s/p intubated; now extubated 11/06/20 - ABG retaining CO2 -> will start BiPAP - Sp Cx (11/03) Gram negative bacillus -> now on meropenem per ID - added Levalbuterol 9. Respiratory failure, s/p vent - now extubated 10. 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 UTI, cheryl 12. Dysphagia -s/p PEG (10/23) 13. Hypotension; improved - s/p NS bolus - pressors as needed - added Diamox 250 mg q6hr x8 doses The care of this patient was discussed with my supervising physician Time spent for this encounter was approximately 31 minutes Tl Pedro Nov 09, 2020 09:11
--- NOTE | 2020-11-09 09:58 | NUR ---
RESPIRATORY NOTE: ABG drawn at this time. Results reported to Elsie HILL.
--- NOTE | 2020-11-09 10:20 | NUR ---
NURSE NOTES: Dr Woods ,DARREN Boothe and Dr Gómez at bedside,seen and assessed olt,Abg results shown to Dr Woods and Dr Gómez.
--- NOTE | 2020-11-09 10:30 | NUR ---
NURSE NOTES: Pt placed on Bipap by Tony Ahn with settings 15/6 and Fio2 50%, per results of ABG,tolerating well.
--- NOTE | 2020-11-09 10:35 | NUR ---
RESPIRATORY NOTE: PT was placed on BIPAP post ABG result. 16/5 RR 12, 50%. Pt tolerating settings well. Will continue to closely monitor. Elsie HILL aware.
--- NOTE | 2020-11-09 12:09 | Nephrology Progress Note ---
Assessment/Plan Problem List: (1) Acute kidney injury (2) Anemia (3) Hyperkalemia (4) Elevated troponin (5) Pneumonia due to COVID-19 virus (6) Hypothyroidism Assessment Plan November 09: Patient getting started on BiPAP. Is retaining CO2. Discussed with . We will start Diamox. Continue to monitor renal parameters. November 08: On oxygen mask. Labs reviewed. Patient full code. Continues to be extubated. Continue pulmonary toilet. Monitor renal parameters. Discussed with RN. Serum creatinine 1.6 at its lowest. November 07: Patient remains on nasal cannula. Full code. Labs reviewed. Low magnesium addressed. Discussed with SERGIO Wilkerson. Continue present care. November 06: Patient is now extubated. Labs reviewed. Medication list reviewed. Serum creatinine stable. Continue post extubation care. November 05: Mental status improved. Labs and medication list reviewed. Serum creatinine 2.2. Weaning trial in process. Continue per consultants. November 04: Full code. Intubated. Labs reviewed. Low potassium addressed. Serum creatinine stable 2.3. Continue per consultants. Weaning as possible. November 03: Remains full code. Remains intubated. FiO2 30%. Discussed with RN. Low potassium addressed. Patient remains on Lasix. Continue to monitor renal parameters. Serum creatinine slightly rising. November 02: Patient remains intubated on ventilator. FiO2 30%. Labs reviewed. Low potassium addressed. Medication list reviewed. Patient on Lasix 40 mg every 8 hours. Serum creatinine higher to 2.3. Feeding changed to Nepro. Potassium supplement given. Continue to monitor renal parameters. November 01: Seen in ICU. Now intubated on ventilator. Discussed with RN. Labs results noted. Abnormal electrolytes addressed. Discussed with RN. Continue per consultants. October 31: Patient seen in ICU. Discussed with SERGIO Miller. ABG noted. Patient acidotic. Being transfused. Potassium is being replaced. Due for another ABG and possible intubation if needed. Conferred with pulmonary and cardiology. October 30: Labs reviewed. Potassium elevated. Kayexalate ordered. Continue to monitor hemoglobin hematocrit and renal parameters. Serum creatinine 2.1. Remains on BiPAP. October 29: Seen in ICU. Discussed with SERGIO Wilkerson. Hemoglobin low. Transfuse 1 unit of packed RBCs. Potassium supplements IV given. Midodrine discontinued. Serum creatinine 2.2 stable. Patient remains on BiPAP. Continue per consultants. Continue to monitor hemoglobin hematocrit electrolytes and renal parameters. October 28: Seen in ICU. Remains on BiPAP. Low potassium and low magnesium addressed. Serum creatinine plateaued at 2.2. Continue per current treatment plan. October 27: Patient in ICU. On BiPAP. Serum creatinine rising. Blood pressure more stable. Will give 100 mg Lasix IV push with the hope of reversing oliguria. Medication list reviewed. Continue to monitor renal parameters. October 26: Seen in ICU. On pressors for low blood pressure. Serum creatinine 2.1. Albumin bolus given. Stress dose of steroids initiated. Continue to monitor renal parameters. Continue per consultants. October 25: Patient seen and examined. Trendelenburg. Blood pressure low. Tachycardic. Discussed with RN. Patient to be transferred to ICU. Discussed with ICU charge nurse and hospital charge nurse. Meanwhile patient started on Albumin bolus and 100 cc an hour D5 normal saline. Patient to be started on pressors while in ICU. Patient full code. October 24: No CHEM panel drawn today.. Renal parameters stable. Patient had a GT placed yesterday. Will check labs tomorrow. Medication list reviewed. October 23: Labs reviewed. Renal parameters unchanged. Creatinine 1.9. Continue current management. Medication list reviewed. October 22: Labs reviewed. Serum creatinine lower at 1.8. Patient started on clear liquid. Patient refuses p.o. medications and food at times. Continue per consultants. October 21: Labs reviewed. Serum creatinine unchanged. Continue per consultants. Continue to monitor renal parameters. October 20: Today's labs reviewed. Serum creatinine unchanged. RN reports patient not taking any p.o. meds. Continue per consultants. Serum creatinine appears to be baseline. October 19: Today's labs still not done yet. RN informed. Albumin bolus given again. Continue to monitor electrolytes and renal parameters. Per orders October 18: Patient hypotensive. Due for blood transfusion. Will give albumin bolus. Continue to monitor renal parameters and electrolytes. Labs and medication list reviewed Subjective ROS Limited/Unobtainable: Yes Objective Objective Last 24 Hour Vital Signs Date Time Temp Pulse Resp B/P (MAP) Pulse Ox O2 Delivery O2 Flow Rate FiO2 11/09/20 11:00 102 29 91/38 (55) 99 11/09/20 10:00 114 30 112/38 (62) 92 11/09/20 09:00 107 35 102/41 (61) 91 11/09/20 08:40 90 11/09/20 08:13 90 11/09/20 08:09 98.7 89 28 118/43 (68) 96 11/09/20 08:08 Simple Mask 5.0 Simple Mask 5.0 11/09/20 08:07 10.0 40 11/09/20 07:58 100 26 97 Cool Aerosol 10.0 40 110 22 90 11/09/20 07:11 102 31 105/41 (62) 94 11/09/20 06:30 102 29 115/44 (67) 94 11/09/20 06:00 99 29 108/41 (63) 94 11/09/20 05:00 96 29 92/39 (56) 93 11/09/20 04:00 10.0 40 11/09/20 04:00 Simple Mask 5.0 Simple Mask 5.0 11/09/20 04:00 104 32 107/43 (64) 94 11/09/20 03:52 104 11/09/20 03:00 103 29 98/39 (58) 93 11/09/20 02:00 103 31 109/42 (64) 95 11/09/20 01:00 104 31 102/49 (66) 94 11/09/20 00:00 107 32 109/40 (63) 95 11/09/20 00:00 Simple Mask 5.0 Simple Mask 5.0 11/09/20 00:00 100 11/08/20 23:20 99 18 100 Cool Aerosol 10.0 40 117 18 95 11/08/20 23:00 101 29 112/54 (73) 90 11/08/20 22:00 105 35 123/45 (71) 96 11/08/20 22:00 105 35 123/45 (71) 96 11/08/20 21:00 104 29 117/46 (69) 95 11/08/20 21:00 104 29 117/46 (69) 95 11/08/20 20:00 94 11/08/20 20:00 99 31 110/41 (64) 92 11/08/20 20:00 10.0 40 11/08/20 20:00 Simple Mask 5.0 Simple Mask 5.0 11/08/20 20:00 98.5 99 31 110/41 (64) 92 11/08/20 19:00 98 26 105/42 (63) 96 11/08/20 19:00 98 26 105/42 (63) 96 11/08/20 18:00 94 26 93/28 (49) 96 11/08/20 17:00 93 24 98/55 (69) 100 11/08/20 16:59 85 20 100 Cool Aerosol 10.0 40 78 19 100 11/08/20 16:00 98.8 97 25 98/39 (58) 100 11/08/20 16:00 Simple Mask 5.0 Simple Mask 5.0 11/08/20 16:00 87 11/08/20 16:00 10.0 40 11/08/20 15:00 94 27 90/34 (52) 11/08/20 14:00 100 28 106/46 (66) 100 11/08/20 13:00 101 27 107/36 (59) Intake and Output 11/08/20 11/09/20 19:00 07:00 Intake Total 660 ml 450 ml Output Total 2335 ml 1100 ml Balance -1675 ml -650 ml Free Water 140 ml 50 ml Tube Feeding 480 ml 400 ml Other 40 ml Output Urine Total 2275 ml 1100 ml Stool Total 60 ml Current Medications Medications (Trade) Dose Ordered Sig/Yolanda Route PRN Reason Start Time Stop Time Status Last Admin Dose Admin Acetaminophen (Tylenol) 650 mg Q4H PRN ORAL Pain Scale (6-10) 10/17/20 19:15 11/16/20 19:14 Acetaminophen (Tylenol) 650 mg Q6H PRN GT Mild Pain (Pain Scale 1-3) 11/04/20 10:45 12/04/20 10:44 11/04/20 18:20 Acetaminophen (Tylenol) 650 mg Q6H PRN GT Temp >100.5 11/04/20 10:45 12/04/20 10:44 Acetazolamide (Diamox) 250 mg Q6HR GT 11/09/20 12:00 11/11/20 06:01 11/09/20 11:55 Apixaban (Eliquis) 2.5 mg BID ORAL 10/24/20 18:00 01/22/21 17:59 11/09/20 08:40 Chlorhexidine Gluconate (Eve-Hex 2%) 1 applic DAILY@1999 TOPIC 10/22/20 20:00 01/20/21 19:59 11/08/20 21:21 Digoxin (Lanoxin) 0.125 mg DAILY GT 10/30/20 09:00 01/28/21 08:59 11/09/20 08:40 Haloperidol Lactate 5 mg/ Dextrose 56 ml @ 224 mls/hr Q6H PRN IVPB Agitation 11/04/20 20:30 12/19/20 20:29 11/07/20 21:16 Levalbuterol HCl (Xopenex) 1.25 mg Q8HRT HHN 11/08/20 09:30 11/13/20 12:59 11/09/20 07:58 Levofloxacin (Levaquin) 750 mg EVERY OTHER DAY GT 11/08/20 09:00 11/15/20 08:59 11/08/20 09:23 Levothyroxine Sodium (Synthroid) 50 mcg DAILY@0630 ORAL 10/19/20 06:30 11/18/20 06:29 11/09/20 07:07 Ondansetron HCl (Zofran) 4 mg Q6H PRN IVP Nausea & Vomiting 10/17/20 21:15 11/16/20 21:14 Pantoprazole (Protonix) 40 mg Q12HR IVP 11/02/20 21:00 11/25/20 20:59 11/09/20 08:41 Laboratory Tests 11/08/20 16:53: POC Whole Blood Glucose 136H 11/09/20 05:00: White Blood Count 9.1, Red Blood Count 3.09L, Hemoglobin 9.1L, Hematocrit 29.6L, Mean Corpuscular Volume 96, Mean Corpuscular Hemoglobin 29.4, Mean Corpuscular Hemoglobin Concent 30.7L, Red Cell Distribution Width 18.7H, Platelet Count 250, Mean Platelet Volume 7.5, Neutrophils (%) (Auto) , Lymphocytes (%) (Auto) , Monocytes (%) (Auto) , Eosinophils (%) (Auto) , Basophils (%) (Auto) , Differential Total Cells Counted 100, Neutrophils % (Manual) 91H, Lymphocytes % (Manual) 5L, Monocytes % (Manual) 1, Eosinophils % (Manual) 0, Basophils % (Manual) 0, Myelocytes % 1H, Promyelocytes % 1H, Band Neutrophils 1, Platelet Estimate Adequate, Platelet Morphology Normal, Ovalocytes Occasional, Sodium Level 150H, Potassium Level 5.0, Chloride Level 109H, Carbon Dioxide Level 40H, Anion Gap 1L, Blood Urea Nitrogen 48H, Creatinine 1.5H, Estimat Glomerular Filtration Rate 33.2, Glucose Level 161H, Calcium Level 8.6, Phosphorus Level 2.7, Magnesium Level 2.3, Total Bilirubin 0.5, Aspartate Amino Transf (AST/SGOT) 13L, Alanine Aminotransferase (ALT/SGPT) 16, Alkaline Phosphatase 89, Total Protein 6.1L, Albumin 2.2L, Globulin 3.9, Albumin/Globulin Ratio 0.6L 11/09/20 09:58: Arterial Blood pH 7.331L, Arterial Blood Partial Pressure CO2 75.7*H, Arterial Blood Partial Pressure O2 58.6L, Arterial Blood HCO3 39.1H, Arterial Blood Oxygen Saturation 87.9*L, Arterial Blood Base Excess 11.0*H, Gallo Test Positive 11/09/20 12:00: POC Whole Blood Glucose 131H Height (Feet): 5 Height (Inches): 0.00 Weight (Pounds): 145 General Appearance: no apparent distress Cardiovascular: tachycardia Respiratory/Chest: decreased breath sounds Abdomen: distended Dustin Gómez MD Nov 09, 2020 12:09
--- NOTE | 2020-11-09 13:01 | NUR ---
RESPIRATORY NOTE: FiO2 decreased to 45%. PT tolerating well. Elsie HILL aware.
--- NOTE | 2020-11-09 13:45 | NUR ---
NURSE NOTES: Seen by Dr Alvarado,informed re reason pt is on Bipap again.
--- NOTE | 2020-11-09 13:55 | General Progress Note ---
Subjective ROS Limited/Unobtainable: No Allergies: Coded Allergies: No Known Allergies (Unverified , 10/17/20) Subjective intubated now Objective Last 24 Hour Vital Signs Date Time Temp Pulse Resp B/P (MAP) Pulse Ox O2 Delivery O2 Flow Rate FiO2 11/09/20 13:00 100 25 109/74 (86) 99 11/09/20 12:00 97.7 97 28 99/44 (62) 98 11/09/20 12:00 Simple Mask 5.0 Simple Mask 5.0 11/09/20 12:00 50 11/09/20 12:00 87 11/09/20 11:00 102 29 91/38 (55) 99 11/09/20 10:30 50 11/09/20 10:00 114 30 112/38 (62) 92 11/09/20 09:00 107 35 102/41 (61) 91 11/09/20 08:40 90 11/09/20 08:13 90 11/09/20 08:09 98.7 89 28 118/43 (68) 96 11/09/20 08:08 Simple Mask 5.0 Simple Mask 5.0 11/09/20 08:07 10.0 40 11/09/20 07:58 100 26 97 Cool Aerosol 10.0 40 110 22 90 11/09/20 07:11 102 31 105/41 (62) 94 11/09/20 06:30 102 29 115/44 (67) 94 11/09/20 06:00 99 29 108/41 (63) 94 11/09/20 05:00 96 29 92/39 (56) 93 11/09/20 04:00 10.0 40 11/09/20 04:00 Simple Mask 5.0 Simple Mask 5.0 11/09/20 04:00 104 32 107/43 (64) 94 11/09/20 03:52 104 11/09/20 03:00 103 29 98/39 (58) 93 11/09/20 02:00 103 31 109/42 (64) 95 11/09/20 01:00 104 31 102/49 (66) 94 11/09/20 00:00 107 32 109/40 (63) 95 11/09/20 00:00 Simple Mask 5.0 Simple Mask 5.0 11/09/20 00:00 100 11/08/20 23:20 99 18 100 Cool Aerosol 10.0 40 117 18 95 11/08/20 23:00 101 29 112/54 (73) 90 11/08/20 22:00 105 35 123/45 (71) 96 11/08/20 22:00 105 35 123/45 (71) 96 11/08/20 21:00 104 29 117/46 (69) 95 11/08/20 21:00 104 29 117/46 (69) 95 11/08/20 20:00 94 11/08/20 20:00 99 31 110/41 (64) 92 11/08/20 20:00 10.0 40 11/08/20 20:00 Simple Mask 5.0 Simple Mask 5.0 11/08/20 20:00 98.5 99 31 110/41 (64) 92 11/08/20 19:00 98 26 105/42 (63) 96 11/08/20 19:00 98 26 105/42 (63) 96 11/08/20 18:00 94 26 93/28 (49) 96 11/08/20 17:00 93 24 98/55 (69) 100 11/08/20 16:59 85 20 100 Cool Aerosol 10.0 40 78 19 100 11/08/20 16:00 98.8 97 25 98/39 (58) 100 11/08/20 16:00 Simple Mask 5.0 Simple Mask 5.0 11/08/20 16:00 87 11/08/20 16:00 10.0 40 11/08/20 15:00 94 27 90/34 (52) 11/08/20 14:00 100 28 106/46 (66) 100 Intake and Output 0 11/08/20 11/09/20 19:00 07:00 Intake Total 660 ml 450 ml Output Total 2335 ml 1100 ml Balance -1675 ml -650 ml Free Water 140 ml 50 ml Tube Feeding 480 ml 400 ml Other 40 ml Output Urine Total 2275 ml 1100 ml Stool Total 60 ml Laboratory Tests 11/08/20 16:53: POC Whole Blood Glucose 136H 11/09/20 05:00: White Blood Count 9.1, Red Blood Count 3.09L, Hemoglobin 9.1L, Hematocrit 29.6L, Mean Corpuscular Volume 96, Mean Corpuscular Hemoglobin 29.4, Mean Corpuscular Hemoglobin Concent 30.7L, Red Cell Distribution Width 18.7H, Platelet Count 250, Mean Platelet Volume 7.5, Neutrophils (%) (Auto) , Lymphocytes (%) (Auto) , Monocytes (%) (Auto) , Eosinophils (%) (Auto) , Basophils (%) (Auto) , Differential Total Cells Counted 100, Neutrophils % (Manual) 91H, Lymphocytes % (Manual) 5L, Monocytes % (Manual) 1, Eosinophils % (Manual) 0, Basophils % (Manual) 0, Myelocytes % 1H, Promyelocytes % 1H, Band Neutrophils 1, Platelet Estimate Adequate, Platelet Morphology Normal, Ovalocytes Occasional, Sodium Level 150H, Potassium Level 5.0, Chloride Level 109H, Carbon Dioxide Level 40H, Anion Gap 1L, Blood Urea Nitrogen 48H, Creatinine 1.5H, Estimat Glomerular Fi ltration Rate 33.2, Glucose Level 161H, Calcium Level 8.6, Phosphorus Level 2.7, Magnesium Level 2.3, Total Bilirubin 0.5, Aspartate Amino Transf (AST/SGOT) 13L, Alanine Aminotransferase (ALT/SGPT) 16, Alkaline Phosphatase 89, Total Protein 6.1L, Albumin 2.2L, Globulin 3.9, Albumin/Globulin Ratio 0.6L 11/09/20 09:58: Arterial Blood pH 7.331L, Arterial Blood Partial Pressure CO2 75.7*H, Arterial Blood Partial Pressure O2 58.6L, Arterial Blood HCO3 39.1H, Arterial Blood Oxygen Saturation 87.9*L, Arterial Blood Base Excess 11.0*H, Gallo Test Positive 11/09/20 12:00: POC Whole Blood Glucose 131H Height (Feet): 5 Height (Inches): 0.00 Weight (Pounds): 145 General Appearance: no apparent distress EENT: normal ENT inspection Neck: supple Cardiovascular: normal rate Respiratory/Chest: decreased breath sounds Abdomen: normal bowel sounds, non tender, soft Extremities: non-tender Assessment/Plan Problem List: (1) Hypothyroidism ICD Codes: E03.9 - Hypothyroidism, unspecified SNOMED: 28177929 (2) Pneumonia due to COVID-19 virus ICD Codes: U07.1 - COVID-19; J12.82 - Pneumonia due to coronavirus disease 2019 SNOMED: 312550978313582157 (3) Malnutrition ICD Codes: E46 - Unspecified protein-calorie malnutrition SNOMED: 92373981 (4) Decubitus skin ulcer ICD Codes: L89.90 - Pressure ulcer of unspecified site, unspecified stage SNOMED: 727283569 (5) Elevated troponin ICD Codes: R77.8 - Other specified abnormalities of plasma proteins SNOMED: 271354804, 934530307, 220696010 (6) Atrial fibrillation ICD Codes: I48.91 - Unspecified atrial fibrillation SNOMED: 93833943 (7) Anemia ICD Codes: D64.9 - Anemia, unspecified SNOMED: 686242639 Status: progressing Assessment/Plan: GTF on hold fu cardiology fu pulm labs for AM extubated now Skyler Tobar MD Nov 09, 2020 13:55
--- NOTE | 2020-11-09 13:56 | Infectious Diseases Prog Note ---
Assessment/Plan Assessment/Plan IMPRESSION: Pneumonia with Pseudomonas Hypercapnic, hypoxic respiratory failure Recent history of COVID disease, Acute renal failure, Aortic stenosis Atrial fibrillation, hypothyroidism, Anemia. Chronic DVT of R leg Hypotension Gastrostomy status Respiratory acidosis Left pleural effusion RECOMMENDATION: Continue Levaquin Repeat CXR Subjective ROS Limited/Unobtainable: Yes Respiratory: Reports: other - was put on BIPAP today Allergies: Coded Allergies: No Known Allergies (Unverified , 10/17/20) Objective Last 24 Hour Vital Signs Date Time Temp Pulse Resp B/P (MAP) Pulse Ox O2 Delivery O2 Flow Rate FiO2 11/09/20 13:00 100 25 109/74 (86) 99 11/09/20 12:00 97.7 97 28 99/44 (62) 98 11/09/20 12:00 Simple Mask 5.0 Simple Mask 5.0 11/09/20 12:00 50 11/09/20 12:00 87 11/09/20 11:00 102 29 91/38 (55) 99 11/09/20 10:30 50 11/09/20 10:00 114 30 112/38 (62) 92 11/09/20 09:00 107 35 102/41 (61) 91 11/09/20 08:40 90 11/09/20 08:13 90 11/09/20 08:09 98.7 89 28 118/43 (68) 96 11/09/20 08:08 Simple Mask 5.0 Simple Mask 5.0 11/09/20 08:07 10.0 40 11/09/20 07:58 100 26 97 Cool Aerosol 10.0 40 110 22 90 11/09/20 07:11 102 31 105/41 (62) 94 11/09/20 06:30 102 29 115/44 (67) 94 11/09/20 06:00 99 29 108/41 (63) 94 11/09/20 05:00 96 29 92/39 (56) 93 11/09/20 04:00 10.0 40 11/09/20 04:00 Simple Mask 5.0 Simple Mask 5.0 11/09/20 04:00 104 32 107/43 (64) 94 11/09/20 03:52 104 11/09/20 03:00 103 29 98/39 (58) 93 11/09/20 02:00 103 31 109/42 (64) 95 11/09/20 01:00 104 31 102/49 (66) 94 11/09/20 00:00 107 32 109/40 (63) 95 11/09/20 00:00 Simple Mask 5.0 Simple Mask 5.0 11/09/20 00:00 100 11/08/20 23:20 99 18 100 Cool Aerosol 10.0 40 117 18 95 11/08/20 23:00 101 29 112/54 (73) 90 11/08/20 22:00 105 35 123/45 (71) 96 11/08/20 22:00 105 35 123/45 (71) 96 11/08/20 21:00 104 29 117/46 (69) 95 11/08/20 21:00 104 29 117/46 (69) 95 11/08/20 20:00 94 11/08/20 20:00 99 31 110/41 (64) 92 11/08/20 20:00 10.0 40 11/08/20 20:00 Simple Mask 5.0 Simple Mask 5.0 11/08/20 20:00 98.5 99 31 110/41 (64) 92 11/08/20 19:00 98 26 105/42 (63) 96 11/08/20 19:00 98 26 105/42 (63) 96 11/08/20 18:00 94 26 93/28 (49) 96 11/08/20 17:00 93 24 98/55 (69) 100 11/08/20 16:59 85 20 100 Cool Aerosol 10.0 40 78 19 100 11/08/20 16:00 98.8 97 25 98/39 (58) 100 11/08/20 16:00 Simple Mask 5.0 Simple Mask 5.0 11/08/20 16:00 87 11/08/20 16:00 10.0 40 11/08/20 15:00 94 27 90/34 (52) 11/08/20 14:00 100 28 106/46 (66) 100 Height (Feet): 5 Height (Inches): 0.00 Weight (Pounds): 145 HEENT: mucous membranes moist Respiratory/Chest: decreased breath sounds, other - on BIPAP Cardiovascular: normal rate Abdomen: soft, non tender, other - GT feeding Extremities: other - decreased edema Neurologic/Psychiatric: other - lethargic Laboratory Tests Test 11/08/20 16:53 11/09/20 05:00 11/09/20 09:58 11/09/20 12:00 POC Whole Blood Glucose 136 MG/DL (74-106) H 131 MG/DL (74-106) H White Blood Count 9.1 K/UL (4.8-10.8) Red Blood Count 3.09 M/UL (4.20-5.40) L Hemoglobin 9.1 G/DL (12.0-16.0) L Hematocrit 29.6 % (37.0-47.0) L Mean Corpuscular Volume 96 FL (80-99) Mean Corpuscular Hemoglobin 29.4 PG (27.0-31.0) Mean Corpuscular Hemoglobin Concent 30.7 G/DL (32.0-36.0) L Red Cell Distribution Width 18.7 % (11.6-14.8) H Platelet Count 250 K/UL (150-450) Mean Platelet Volume 7.5 FL (6.5-10.1) Neutrophils (%) (Auto) % (45.0-75.0) Lymphocytes (%) (Auto) % (20.0-45.0) Monocytes (%) (Auto) % (1.0-10.0) Eosinophils (%) (Auto) % (0.0-3.0) Basophils (%) (Auto) % (0.0-2.0) Differential Total Cells Counted 100 Neutrophils % (Manual) 91 % (45-75) H Lymphocytes % (Manual) 5 % (20-45) L Monocytes % (Manual) 1 % (1-10) Eosinophils % (Manual) 0 % (0-3) Basophils % (Manual) 0 % (0-2) Myelocytes % 1 % (0-0) H Promyelocytes % 1 % (0-0) H Band Neutrophils 1 % (0-8) Platelet Estimate Adequate Platelet Morphology Normal Ovalocytes Occasional Sodium Level 150 MMOL/L (136-145) H Potassium Level 5.0 MMOL/L (3.5-5.1) Chloride Level 109 MMOL/L (98-107) H Carbon Dioxide Level 40 MMOL/L (21-32) H Anion Gap 1 mmol/L (5-15) L Blood Urea Nitrogen 48 mg/dL (7-18) H Creatinine 1.5 MG/DL (0.55-1.30) H Estimat Glomerular Filtration Rate 33.2 mL/min (>60) Glucose Level 161 MG/DL (74-106) H Calcium Level 8.6 MG/DL (8.5-10.1) Phosphorus Level 2.7 MG/DL (2.5-4.9) Magnesium Level 2.3 MG/DL (1.8-2.4) Total Bilirubin 0.5 MG/DL (0.2-1.0) Aspartate Amino Transf (AST/SGOT) 13 U/L (15-37) L Alanine Aminotransferase (ALT/SGPT) 16 U/L (12-78) Alkaline Phosphatase 89 U/L (46-116) Total Protein 6.1 G/DL (6.4-8.2) L Albumin 2.2 G/DL (3.4-5.0) L Globulin 3.9 g/dL Albumin/Globulin Ratio 0.6 (1.0-2.7) L Arterial Blood pH 7.331 (7.350-7.450) Arterial Blood Partial Pressure CO2 75.7 mmHg (35.0-45.0) *H Arterial Blood Partial Pressure O2 58.6 mmHg (75.0-100.0) L Arterial Blood HCO3 39.1 mmol/L (22.0-26.0) H Arterial Blood Oxygen Saturation 87.9 % (95-100) *L Arterial Blood Base Excess 11.0 (-2-2) *H Gallo Test Positive Current Medications Medications (Trade) Dose Ordered Sig/Yolanda Route PRN Reason Start Time Stop Time Status Last Admin Dose Admin Acetaminophen (Tylenol) 650 mg Q4H PRN ORAL Pain Scale (6-10) 10/17/20 19:15 11/16/20 19:14 Acetaminophen (Tylenol) 650 mg Q6H PRN GT Mild Pain (Pain Scale 1-3) 11/04/20 10:45 12/04/20 10:44 11/04/20 18:20 Acetaminophen (Tylenol) 650 mg Q6H PRN GT Temp >100.5 11/04/20 10:45 12/04/20 10:44 Acetazolamide (Diamox) 250 mg Q6HR GT 11/09/20 12:00 11/11/20 06:01 11/09/20 11:55 Apixaban (Eliquis) 2.5 mg BID ORAL 10/24/20 18:00 01/22/21 17:59 11/09/20 08:40 Chlorhexidine Gluconate (Eve-Hex 2%) 1 applic DAILY@2000 TOPIC 10/22/20 20:00 01/20/21 19:59 11/08/20 21:21 Digoxin (Lanoxin) 0.125 mg DAILY GT 10/30/20 09:00 01/28/21 08:59 11/09/20 08:40 Haloperidol Lactate 5 mg/ Dextrose 56 ml @ 224 mls/hr Q6H PRN IVPB Agitation 11/04/20 20:30 12/19/20 20:29 11/07/20 21:16 Levalbuterol HCl (Xopenex) 1.25 mg Q8HRT HHN 11/08/20 09:30 11/13/20 12:59 11/09/20 07:58 Levofloxacin (Levaquin) 750 mg EVERY OTHER DAY GT 11/08/20 09:00 11/15/20 08:59 11/08/20 09:23 Levothyroxine Sodium (Synthroid) 50 mcg DAILY@0630 ORAL 10/19/20 06:30 11/18/20 06:29 11/09/20 07:07 Ondansetron HCl (Zofran) 4 mg Q6H PRN IVP Nausea & Vomiting 10/17/20 21:15 11/16/20 21:14 Pantoprazole (Protonix) 40 mg Q12HR IVP 11/02/20 21:00 11/25/20 20:59 11/09/20 08:41 Luis Alvarado MD Nov 09, 2020 13:56
--- NOTE | 2020-11-09 14:10 | NUR ---
NURSE NOTES: Dr Reyes at bedside,updated re pt's status.
--- NOTE | 2020-11-09 14:48 | NUR ---
RADIOLOGY DEPT., CHEST X-RAY DONE.-P.DYE
--- NOTE | 2020-11-09 14:54 | Cardiac Electrophysiology PN ---
Assessment/Plan Assessment/Plan 1. NSTEMI with elevated troponin of more than 0.2 and hx of prior OK The level has come down to 0.19, but the levels are flat and likely due to renal failure as the creatinine is 2.1. On aspirin and off Lopressor as hypotensive 2. Atrial fibrillation with rapid ventricular response. Off Lopressor for low BP On Dig 0.125 PEG daily and Eliquis 2.5 bid. Dig level 1.7 3. Respiratory failure , Extubated 11/06/20. On Lasix 40 iv bid 4. S/P Septic shock, off Levophed 5. Renal insufficiency. BUN 53 Cr 2.4 6. Status post COVID pneumonia, was tested positive more than two weeks ago. Now is Covid negative 7. Dysphagia, S/P PEG 10/23/[address] Full code[address] DW Dr. Gómez Subjective Subjective S/P PEG by Dr. Tobar 10/23/20 In ICU on Lasix 40 iv bid and off pressors. Covid negative 10/25 and is off isolation In atrial fib with rate around 100. Dig level 1.7 Extubated 11/06/20. On BIPAP now Objective Last 24 Hour Vital Signs Date Time Temp Pulse Resp B/P (MAP) Pulse Ox O2 Delivery O2 Flow Rate FiO2 11/09/20 13:00 100 25 109/74 (86) 99 11/09/20 12:00 97.7 97 28 99/44 (62) 98 11/09/20 12:00 Simple Mask 5.0 Simple Mask 5.0 11/09/20 12:00 50 11/09/20 12:00 87 11/09/20 11:00 102 29 91/38 (55) 99 11/09/20 10:30 50 11/09/20 10:00 114 30 112/38 (62) 92 11/09/20 09:00 107 35 102/41 (61) 91 11/09/20 08:40 90 11/09/20 08:13 90 11/09/20 08:09 98.7 89 28 118/43 (68) 96 11/09/20 08:08 Simple Mask 5.0 Simple Mask 5.0 11/09/20 08:07 10.0 40 11/09/20 07:58 100 26 97 Cool Aerosol 10.0 40 110 22 90 11/09/20 07:11 102 31 105/41 (62) 94 11/09/20 06:30 102 29 115/44 (67) 94 11/09/20 06:00 99 29 108/41 (63) 94 11/09/20 05:00 96 29 92/39 (56) 93 11/09/20 04:00 10.0 40 11/09/20 04:00 Simple Mask 5.0 Simple Mask 5.0 11/09/20 04:00 104 32 107/43 (64) 94 11/09/20 03:52 104 11/09/20 03:00 103 29 98/39 (58) 93 11/09/20 02:00 103 31 109/42 (64) 95 11/09/20 01:00 104 31 102/49 (66) 94 11/09/20 00:00 107 32 109/40 (63) 95 11/09/20 00:00 Simple Mask 5.0 Simple Mask 5.0 11/09/20 00:00 100 11/08/20 23:20 99 18 100 Cool Aerosol 10.0 40 117 18 95 11/08/20 23:00 101 29 112/54 (73) 90 11/08/20 22:00 105 35 123/45 (71) 96 11/08/20 22:00 105 35 123/45 (71) 96 11/08/20 21:00 104 29 117/46 (69) 95 11/08/20 21:00 104 29 117/46 (69) 95 11/08/20 20:00 94 11/08/20 20:00 99 31 110/41 (64) 92 11/08/20 20:00 10.0 40 11/08/20 20:00 Simple Mask 5.0 Simple Mask 5.0 11/08/20 20:00 98.5 99 31 110/41 (64) 92 11/08/20 19:00 98 26 105/42 (63) 96 11/08/20 19:00 98 26 105/42 (63) 96 11/08/20 18:00 94 26 93/28 (49) 96 11/08/20 17:00 93 24 98/55 (69) 100 11/08/20 16:59 85 20 100 Cool Aerosol 10.0 40 78 19 100 11/08/20 16:00 98.8 97 25 98/39 (58) 100 3/14/21 16:00 Simple Mask 5.0 Simple Mask 5.0 11/08/20 16:00 87 11/08/20 16:00 10.0 40 11/08/20 15:00 94 27 90/34 (52) Intake and Output 11/08/20 11/09/20 19:00 07:00 Intake Total 660 ml 450 ml Output Total 2335 ml 1100 ml Balance -1675 ml -650 ml Free Water 140 ml 50 ml Tube Feeding 480 ml 400 ml Other 40 ml Output Urine Total 2275 ml 1100 ml Stool Total 60 ml Laboratory Tests Test 11/08/20 16:53 11/09/20 05:00 11/09/20 09:58 11/09/20 12:00 POC Whole Blood Glucose 136 MG/DL (74-106) H 131 MG/DL (74-106) H White Blood Count 9.1 K/UL (4.8-10.8) Red Blood Count 3.09 M/UL (4.20-5.40) L Hemoglobin 9.1 G/DL (12.0-16.0) L Hematocrit 29.6 % (37.0-47.0) L Mean Corpuscular Volume 96 FL (80-99) Mean Corpuscular Hemoglobin 29.4 PG (27.0-31.0) Mean Corpuscular Hemoglobin Concent 30.7 G/DL (32.0-36.0) L Red Cell Distribution Width 18.7 % (11.6-14.8) H Platelet Count 250 K/UL (150-450) Mean Platelet Volume 7.5 FL (6.5-10.1) Neutrophils (%) (Auto) % (45.0-75.0) Lymphocytes (%) (Auto) % (20.0-45.0) Monocytes (%) (Auto) % (1.0-10.0) Eosinophils (%) (Auto) % (0.0-3.0) Basophils (%) (Auto) % (0.0-2.0) Differential Total Cells Counted 100 Neutrophils % (Manual) 91 % (45-75) H Lymphocytes % (Manual) 5 % (20-45) L Monocytes % (Manual) 1 % (1-10) Eosinophils % (Manual) 0 % (0-3) Basophils % (Manual) 0 % (0-2) Myelocytes % 1 % (0-0) H Promyelocytes % 1 % (0-0) H Band Neutrophils 1 % (0-8) Platelet Estimate Adequate Platelet Morphology Normal Ovalocytes Occasional Sodium Level 150 MMOL/L (136-145) H Potassium Level 5.0 MMOL/L (3.5-5.1) Chloride Level 109 MMOL/L (98-107) H Carbon Dioxide Level 40 MMOL/L (21-32) H Anion Gap 1 mmol/L (5-15) L Blood Urea Nitrogen 48 mg/dL (7-18) H Creatinine 1.5 MG/DL (0.55-1.30) H Estimat Glomerular Filtration Rate 33.2 mL/min (>60) Glucose Level 161 MG/DL (74-106) H Calcium Level 8.6 MG/DL (8.5-10.1) Phosphorus Level 2.7 MG/DL (2.5-4.9) Magnesium Level 2.3 MG/DL (1.8-2.4) Total Bilirubin 0.5 MG/DL (0.2-1.0) Aspartate Amino Transf (AST/SGOT) 13 U/L (15-37) L Alanine Aminotransferase (ALT/SGPT) 16 U/L (12-78) Alkaline Phosphatase 89 U/L (46-116) Total Protein 6.1 G/DL (6.4-8.2) L Albumin 2.2 G/DL (3.4-5.0) L Globulin 3.9 g/dL Albumin/Globulin Ratio 0.6 (1.0-2.7) L Arterial Blood pH 7.331 (7.350-7.450) Arterial Blood Partial Pressure CO2 75.7 mmHg (35.0-45.0) *H Arterial Blood Partial Pressure O2 58.6 mmHg (75.0-100.0) L Arterial Blood HCO3 39.1 mmol/L (22.0-26.0) H Arterial Blood Oxygen Saturation 87.9 % (95-100) *L Arterial Blood Base Excess 11.0 (-2-2) *H Gallo Test Positive Objective HEAD AND NECK: No JVD. LUNGS: Decreased breath sounds. CARDIOVASCULAR: Irregular S1 and S2 with no gallop. ABDOMEN: Soft.S/P PEG EXTREMITIES: No pitting edema. Terry Reyes MD Nov 09, 2020 14:54
--- NOTE | 2020-11-09 14:56 | Surgery Progress Note ---
Surgery Progress Note Subjective Procedure Performed left subclavian central venous catheter insertion Additional Comments retaining CO2 back on bipap ill appearing min responsive labs noted ? intubation Objective Last 24 Hour Vital Signs Date Time Temp Pulse Resp B/P (MAP) Pulse Ox O2 Delivery O2 Flow Rate FiO2 11/09/20 13:00 100 25 109/74 (86) 99 11/09/20 12:00 97.7 97 28 99/44 (62) 98 11/09/20 12:00 Simple Mask 5.0 Simple Mask 5.0 11/09/20 12:00 50 11/09/20 12:00 87 11/09/20 11:00 102 29 91/38 (55) 99 11/09/20 10:30 50 11/09/20 10:00 114 30 112/38 (62) 92 11/09/20 09:00 107 35 102/41 (61) 91 11/09/20 08:40 90 11/09/20 08:13 90 11/09/20 08:09 98.7 89 28 118/43 (68) 96 11/09/20 08:08 Simple Mask 5.0 Simple Mask 5.0 11/09/20 08:07 10.0 40 11/09/20 07:58 100 26 97 Cool Aerosol 10.0 40 110 22 90 11/09/20 07:11 102 31 105/41 (62) 94 11/09/20 06:30 102 29 115/44 (67) 94 11/09/20 06:00 99 29 108/41 (63) 94 11/09/20 05:00 96 29 92/39 (56) 93 11/09/20 04:00 10.0 40 11/09/20 04:00 Simple Mask 5.0 Simple Mask 5.0 11/09/20 04:00 104 32 107/43 (64) 94 11/09/20 03:52 104 11/09/20 03:00 103 29 98/39 (58) 93 11/09/20 02:00 103 31 109/42 (64) 95 11/09/20 01:00 104 31 102/49 (66) 94 11/09/20 00:00 107 32 109/40 (63) 95 11/09/20 00:00 Simple Mask 5.0 Simple Mask 5.0 11/09/20 00:00 100 11/08/20 23:20 99 18 100 Cool Aerosol 10.0 40 117 18 95 11/08/20 23:00 101 29 112/54 (73) 90 11/08/20 22:00 105 35 123/45 (71) 96 11/08/20 22:00 105 35 123/45 (71) 96 11/08/20 21:00 104 29 117/46 (69) 95 11/08/20 21:00 104 29 117/46 (69) 95 11/08/20 20:00 94 11/08/20 20:00 99 31 110/41 (64) 92 11/08/20 20:00 10.0 40 11/08/20 20:00 Simple Mask 5.0 Simple Mask 5.0 11/08/20 20:00 98.5 99 31 110/41 (64) 92 11/08/20 19:00 98 26 105/42 (63) 96 11/08/20 19:00 98 26 105/42 (63) 96 11/08/20 18:00 94 26 93/28 (49) 96 11/08/20 17:00 93 24 98/55 (69) 100 11/08/20 16:59 85 20 100 Cool Aerosol 10.0 40 78 19 100 11/08/20 16:00 98.8 97 25 98/39 (58) 100 11/08/20 16:00 Simple Mask 5.0 Simple Mask 5.0 11/08/20 16:00 87 11/08/20 16:00 10.0 40 11/08/20 15:00 94 27 90/34 (52) I&O Intake and Output 11/08/20 11/09/20 19:00 07:00 Intake Total 660 ml 450 ml Output Total 2335 ml 1100 ml Balance -1675 ml -650 ml Free Water 140 ml 50 ml Tube Feeding 480 ml 400 ml Other 40 ml Output Urine Total 2275 ml 1100 ml Stool Total 60 ml Cardiovascular: RSR Respiratory: decreased breath sounds Abdomen: soft, non-tender, present bowel sounds, non-distended Extremities: edema, no tenderness, no cyanosis Laboratory Tests Test 11/08/20 16:53 11/09/20 05:00 11/09/20 09:58 11/09/20 12:00 POC Whole Blood Glucose 136 MG/DL (74-106) H 131 MG/DL (74-106) H White Blood Count 9.1 K/UL (4.8-10.8) Red Blood Count 3.09 M/UL (4.20-5.40) L Hemoglobin 9.1 G/DL (12.0-16.0) L Hematocrit 29.6 % (37.0-47.0) L Mean Corpuscular Volume 96 FL (80-99) Mean Corpuscular Hemoglobin 29.4 PG (27.0-31.0) Mean Corpuscular Hemoglobin Concent 30.7 G/DL (32.0-36.0) L Red Cell Distribution Width 18.7 % (11.6-14.8) H Platelet Count 250 K/UL (150-450) Mean Platelet Volume 7.5 FL (6.5-10.1) Neutrophils (%) (Auto) % (45.0-75.0) Lymphocytes (%) (Auto) % (20.0-45.0) Monocytes (%) (Auto) % (1.0-10.0) Eosinophils (%) (Auto) % (0.0-3.0) Basophils (%) (Auto) % (0.0-2.0) Differential Total Cells Counted 100 Neutrophils % (Manual) 91 % (45-75) H Lymphocytes % (Manual) 5 % (20-45) L Monocytes % (Manual) 1 % (1-10) Eosinophils % (Manual) 0 % (0-3) Basophils % (Manual) 0 % (0-2) Myelocytes % 1 % (0-0) H Promyelocytes % 1 % (0-0) H Band Neutrophils 1 % (0-8) Platelet Estimate Adequate Platelet Morphology Normal Ovalocytes Occasional Sodium Level 150 MMOL/L (136-145) H Potassium Level 5.0 MMOL/L (3.5-5.1) Chloride Level 109 MMOL/L (98-107) H Carbon Dioxide Level 40 MMOL/L (21-32) H Anion Gap 1 mmol/L (5-15) L Blood Urea Nitrogen 48 mg/dL (7-18) H Creatinine 1.5 MG/DL (0.55-1.30) H Estimat Glomerular Filtration Rate 33.2 mL/min (>60) Glucose Level 161 MG/DL (74-106) H Calcium Level 8.6 MG/DL (8.5-10.1) Phosphorus Level 2.7 MG/DL (2.5-4.9) Magnesium Level 2.3 MG/DL (1.8-2.4) Total Bilirubin 0.5 MG/DL (0.2-1.0) Aspartate Amino Transf (AST/SGOT) 13 U/L (15-37) L Alanine Aminotransferase (ALT/SGPT) 16 U/L (12-78) Alkaline Phosphatase 89 U/L (46-116) Total Protein 6.1 G/DL (6.4-8.2) L Albumin 2.2 G/DL (3.4-5.0) L Globulin 3.9 g/dL Albumin/Globulin Ratio 0.6 (1.0-2.7) L Arterial Blood pH 7.331 (7.350-7.450) Arterial Blood Partial Pressure CO2 75.7 mmHg (35.0-45.0) *H Arterial Blood Partial Pressure O2 58.6 mmHg (75.0-100.0) L Arterial Blood HCO3 39.1 mmol/L (22.0-26.0) H Arterial Blood Oxygen Saturation 87.9 % (95-100) *L Arterial Blood Base Excess 11.0 (-2-2) *H Gallo Test Positive Plan Problems: (1) Anemia (2) Acute kidney injury (3) Atrial fibrillation (4) Hyperkalemia (5) Elevated troponin (6) Decubitus skin ulcer Assessment & Plan: Pt presented on admission with Multiple Medical Comorbidities including Covid-19 and Pressure Injuries. Primary Nurse reported Pt has been declining food and medications. Sacral DTPI that is evolving noted to Sacrum(L)6cm x (W)12.5cm.. Scattered Purpuric areas that are indurated noted to R and L cheek. Small wound that is 100% slough (L)0.6cm x (W)0.7cm noted at sacrococcygeal area within base of DTPI. MASD noted to Perineum and skin folds of Medial/posterior aspects of Both upper thighs. Affected areas are erythematous and macerated with scattered satellite lesions. DTPI L Heel (L)3cm x (W)4cm, Base of heel is maroon and fluctuant with small purpuric area (L)0.4cm x (W)0.9cm within base of DTPI. l Foot including toes are mottled and cool to touch. L Heel is boggy. L Heel including toes are Mottled and cool to touch. Tx.Plan: Apply Moisture Barrier Paste to Sacrum. Cover with Optifoam drsg.Change every 3 days and prn. Apply Moisture Barrier Paste to abdominal folds, Perineum and skin folds of both upper thighs. Apply Cavilon Skin Barrier to both heels. Cover each Heel with Optifoam drsg. Change every 7 days and prn. Reposition at least every 2hours or as tolerated. Off-load heels with pillow. (7) Malnutrition Assessment & Plan: She was able to self feed on right hand and took a bite of popsicle and tolerated without s.s of aspiration. After 1st bite, then she refused 2nd bite. After this was done, I offered her a cup of cranberry juice, s he took few sips and tolerated without s.s of aspiration. I continued to offer but she refused further PO. A: 1. Functional swallow 2. Failure to thrive 3. abnormal electrolytes in setting of heart failure, NSTEMI, elevated BNP, etc.. P/Rec. 1. Pureed and thin liquid 2.3. Goal of care discussion DAILY ESTIMATED NEEDS: Needs based on Cardiac, pulmonary/ 51kg abw 25-30 kcals/kg 0034-3400 total kcals 1-1.5 g protein/kg 51-76 g total protein 20-25 mL/kg 3450-6909 total fluid mLs NUTRITION DIAGNOSIS: Swallowing difficulty R/T dysphagia, decreased cognitive fxn as evidenced by [employer] recommends pureed moist texture diet at this time. CURRENT DIET:NPO PO DIET RECOMMENDATIONS: Liberalized REGULAR w/ poor PO (texture per [employer]) ADDITIONAL RECOMMENDATIONS: * Calibrated bedscale wt * Monitor PO intake: refusing meds and foods at this time -> rec nonoral feeds w/ continued refusal of PO if part of POC * LOW NA diet w/ PO intake consistently >50% * 4 oz Ensure TID w/ meals (4oz at this time due to poor acceptance, may increase to 8oz w/ good acceptance) (8) Pneumonia due to COVID-19 virus Assessment & Plan: here appears to be increased left pleural fluid and generalized hazy parenchymal opacity, left greater than right. Heart remains enlarged Impression: Increased left pleural effusion Suspect increasing bilateral left greater than right pulmonary edema versus infiltrates worsening intubated on vent weaned extubated (9) Hypothyroidism Jim Orosco Nov 09, 2020 14:55
--- NOTE | 2020-11-09 15:51 | Diagnostic Imaging Report ---
. Indication: Cough Technique: One view of the chest Comparison: 11/07/2020 Findings: Bilateral interstitial and airspace edema versus infiltrates, left pleural effusion are again demonstrated. Parenchymal disease overall appears slightly more severe than on the prior study. Pleural fluid may also slightly increased. Heart remains enlarged. Left subclavian central venous catheter again demonstrated. Impression: Interim slight worsening of bilateral parenchymal edema versus infiltrates and left pleural effusion, since prior study of 2 days earlier
--- NOTE | 2020-11-09 16:00 | NUR ---
NURSE NOTES: Pt stable,noted no resp distress,Bipap settings tolerated.
--- NOTE | 2020-11-09 17:31 | NUR ---
NURSE NOTES: Bed bath given,pulled up turned and repositioned.
--- NOTE | 2020-11-09 19:08 | NUR ---
NURSE HAND-OFF REPORT: Latest Vital Signs: Temperature 98.7 , Pulse 83 , B/P 117 /45 , Respiratory Rate 24 , O2 SAT 100 , Simple Mask, O2 Flow Rate 5.0 . Vital Sign Comment: stable EKG Rhythm: Atrial Fibrillation Rhythm change?: N MD Notified?: -N Response: Latest Elizabeth Fall Score: 70 Fall Risk: High Risk Safety Measures: Call light Within Reach, Bed Alarm Zone 1, Side Rails Side Rails x3, Bed position Low and Locked. Fall Precautions: Yellow Socks Patient Fall Education Report given to .Aissatou Sanchez ,Travelling RN.
[2020-11-09] MEDS: Dyna-Hex 2% Top Sol 2oz TOPIC SCH (20:33)
--- NOTE | 2020-11-09 21:24 | General Progress Note ---
Subjective ROS Limited/Unobtainable: Yes Allergies: Coded Allergies: No Known Allergies (Unverified , 10/17/20) Objective Last 24 Hour Vital Signs Date Time Temp Pulse Resp B/P (MAP) Pulse Ox O2 Delivery O2 Flow Rate FiO2 11/09/20 19:03 83 24 100 40 11/09/20 18:00 88 24 117/45 (69) 100 11/09/20 17:18 97 25 100 45 11/09/20 17:00 85 22 104/49 (67) 100 11/09/20 16:00 101 11/09/20 16:00 98.7 97 26 112/39 (63) 100 11/09/20 16:00 50 11/09/20 16:00 Simple Mask 5.0 Simple Mask 5.0 11/09/20 15:44 83 28 100 Bi-Pap 45 80 29 99 11/09/20 15:44 80 36 99 45 11/09/20 15:00 97 32 112/39 (63) 100 11/09/20 14:00 97 27 104/53 (70) 98 11/09/20 13:01 98 36 99 45 11/09/20 13:00 100 25 109/74 (86) 99 11/09/20 12:00 97.7 97 28 99/44 (62) 98 11/09/20 12:00 Simple Mask 5.0 Simple Mask 5.0 11/09/20 12:00 50 11/09/20 12:00 87 11/09/20 11:00 102 29 91/38 (55) 99 11/09/20 10:35 95 36 98 50 11/09/20 10:30 50 11/09/20 10:00 114 30 112/38 (62) 92 11/09/20 09:00 107 35 102/41 (61) 91 11/09/20 08:40 90 11/09/20 08:13 90 11/09/20 08:09 98.7 89 28 118/43 (68) 96 11/09/20 08:08 Simple Mask 5.0 Simple Mask 5.0 11/09/20 08:07 10.0 40 11/09/20 07:58 100 26 97 Cool Aerosol 10.0 40 110 22 90 11/09/20 07:11 102 31 105/41 (62) 94 11/09/20 06:30 102 29 115/44 (67) 94 11/09/20 06:00 99 29 108/41 (63) 94 11/09/20 05:00 96 29 92/39 (56) 93 11/09/20 04:00 10.0 40 11/09/20 04:00 Simple Mask 5.0 Simple Mask 5.0 11/09/20 04:00 104 32 107/43 (64) 94 11/09/20 03:52 104 11/09/20 03:00 103 29 98/39 (58) 93 11/09/20 02:00 103 31 109/42 (64) 95 11/09/20 01:00 104 31 102/49 (66) 94 11/09/20 00:00 107 32 109/40 (63) 95 11/09/20 00:00 Simple Mask 5.0 Simple Mask 5.0 11/09/20 00:00 100 11/08/20 23:20 99 18 100 Cool Aerosol 10.0 40 117 18 95 11/08/20 23:00 101 29 112/54 (73) 90 11/08/20 22:00 105 35 123/45 (71) 96 11/08/20 22:00 105 35 123/45 (71) 96 Intake and Output 11/08/20 11/09/20 19:00 07:00 Intake Total 660 ml 450 ml Output Total 2335 ml 1100 ml Balance -1675 ml -650 ml Free Water 140 ml 50 ml Tube Feeding 480 ml 400 ml Other 40 ml Output Urine Total 2275 ml 1100 ml Stool Total 60 ml Laboratory Tests 11/09/20 05:00: White Blood Count 9.1, Red Blood Count 3.09L, Hemoglobin 9.1L, Hematocrit 29.6L, Mean Corpuscular Volume 96, Mean Corpuscular Hemoglobin 29.4, Mean Corpuscular Hemoglobin Concent 30.7L, Red Cell Distribution Width 18.7H, Platelet Count 250, Mean Platelet Volume 7.5, Neutrophils (%) (Auto) , Lymphocytes (%) (Auto) , Monocytes (%) (Auto) , Eosinophils (%) (Auto) , Basophils (%) (Auto) , Differential Total Cells Counted 100, Neutrophils % (Manual) 91H, Lymphocytes % (Manual) 5L, Monocytes % (Manual) 1, Eosinophils % (Manual) 0, Basophils % (Manual) 0, Myelocytes % 1H, Promyelocytes % 1H, Band Neutrophils 1, Platelet Estimate Adequate, Platelet Morphology Normal, Ovalocytes Occasional, Sodium Level 150H, Potassium Level 5.0, Chloride Level 109H, Carbon Dioxide Level 40H, Anion Gap 1L, Blood Urea Nitrogen 48H, Creatinine 1.5H, Estimat Glomerular Filtration Rate 33.2, Glucose Level 161H, Calcium Level 8.6, Phosphorus Level 2.7, Magnesium Level 2.3, Total Bilirubin 0.5, Aspartate Amino Transf (AST/SGOT) 13L, Alanine Aminotransferase (ALT/SGPT) 16, Alkaline Phosphatase 89, Total Protein 6.1L, Albumin 2.2L, Globulin 3.9, Albumin/Globulin Ratio 0.6L 11/09/20 09:58: Arterial Blood pH 7.331L, Arterial Blood Partial Pressure CO2 75.7*H, Arterial Blood Partial Pressure O2 58.6L, Arterial Blood HCO3 39.1H, Arterial Blood Oxygen Saturation 87.9*L, Arterial Blood Base Excess 11.0*H, Gallo Test Positive 11/09/20 12:00: POC Whole Blood Glucose 131H 11/09/20 16:09: POC Whole Blood Glucose 111H Height (Feet): 5 Height (Inches): 0.00 Weight (Pounds): 145 General Appearance: lethargic Assessment/Plan Problem List: (1) Anemia ICD Codes: D64.9 - Anemia, unspecified SNOMED: 910487393 (2) Acute kidney injury ICD Codes: N17.9 - Acute kidney failure, unspecified SNOMED: 26556768, 2383688 (3) Atrial fibrillation ICD Codes: I48.91 - Unspecified atrial fibrillation SNOMED: 46061563 (4) Elevated troponin ICD Codes: R77.8 - Other specified abnormalities of plasma proteins SNOMED: 065568470, 729838487, 385246919 (5) Malnutrition ICD Codes: E46 - Unspecified protein-calorie malnutrition SNOMED: 43116603 (6) Pneumonia due to COVID-19 virus ICD Codes: U07.1 - COVID-19; J12.82 - Pneumonia due to coronavirus disease 2019 SNOMED: 616896202392410917 (7) Hypothyroidism ICD Codes: E03.9 - Hypothyroidism, unspecified SNOMED: 66050918 Status: progressing, unchanged Assessment/Plan: lethargy no change waxing and waning mentation poor prognosis malnutrition pna sepsis Neri Dumont MD Nov 09, 2020 21:24
[2020-11-10] VITALS (34 sets, daily range): BP systolic 93–157; BP diastolic 38–95
[2020-11-10 06:07] LABS: BASOPHILS % (AUTO) 0.2 % (0.0-2.0); EOSINOPHILS % (AUTO) 1.5 % (0.0-3.0); HEMATOCRIT 27.6 % (37.0-47.0); HEMOGLOBIN 8.3 G/DL (12.0-16.0); LYMPHOCYTES % (AUTO) 10.5 % (20.0-45.0); MEAN CORPUSCULAR VOLUME 97 FL (80-99); MONOCYTES % (AUTO) 4.5 % (1.0-10.0); NEUTROPHILS % (AUTO) 83.3 % (45.0-75.0); PLATELET COUNT 200 K/UL (150-450); RED BLOOD COUNT 2.85 M/UL (4.20-5.40); RED CELL DISTRIBUTION WIDTH 18.7 % (11.6-14.8); WHITE BLOOD COUNT 5.6 K/UL (4.8-10.8)
[2020-11-10 06:26] LABS: ALBUMIN/GLOBULIN RATIO 0.6 (1.0-2.7); BILIRUBIN,TOTAL 0.8 MG/DL (0.2-1.0); CALCIUM 8.9 MG/DL (8.5-10.1); CREATININE 1.3 MG/DL (0.55-1.30); PHOSPHORUS 3.1 MG/DL (2.5-4.9)
[2020-11-10] MEDS: Levalbuterol Inh UD 1.25mg/0.5ml HHN SCH ×3 (07:20→22:55)
--- NOTE | 2020-11-10 07:20 | NUR ---
NURSE NOTES: Report received from Aissatou Sanchez,travelling RN.Pt asleep noted no resp distress on Bipap 15/6 Fio2 30%, no signs of pain or discomfort, AFIB on the monitor,opens eyes with verbal command,Kept NPO due to Bipap,Green cath draining minimal amount of yellow urine output,Rectal tube in placed but no new output, skin warm and edematous IV site to LT SC TLC intact ,on P200 mattress,SR up x2,HOB elevated bed lock in lowest position,will continue with plans of care.
[2020-11-10] MEDS: Levofloxacin 750mg tab GT SCH (09:09)
[2020-11-10] MEDS: Pantoprazole Inj IVP SCH ×2 (09:09→20:46)
[2020-11-10] MEDS: Eliquis 2.5mg tablet ORAL SCH ×2 (09:09→18:01)
[2020-11-10] MEDS: Digoxin 0.125mg tab GT SCH (09:09)
--- NOTE | 2020-11-10 09:12 | Pulmonology Progress Note ---
Subjective ROS Limited/Unobtainable: Yes Interval Events: Intubated 10/31/20; extubated 11/05/20; now on BiPAP Constitutional: Reports: no symptoms HEENT: Repors: no symptoms Respiratory: Reports: no symptoms Cardiovascular: Reports: no symptoms Gastrointestinal/Abdominal: Reports: diarrhea Psychiatric: Reports: other Allergies: Coded Allergies: No Known Allergies (Unverified , 10/17/20) All Systems: reviewed and negative except above Objective Last 24 Hour Vital Signs Date Time Temp Pulse Resp B/P (MAP) Pulse Ox O2 Delivery O2 Flow Rate FiO2 11/10/20 08:00 Simple Mask 5.0 Simple Mask 5.0 11/10/20 08:00 98.7 74 20 115/51 (72) 97 11/10/20 08:00 30 11/10/20 08:00 74 11/10/20 07:29 83 14 98 Mechanical Ventilator 35 91 24 98 30 11/10/20 07:00 84 24 122/61 (81) 98 11/10/20 06:30 81 19 133/68 (89) 98 11/10/20 06:00 78 22 141/85 (103) 98 11/10/20 05:31 85 22 98 30 11/10/20 05:30 81 23 124/51 (75) 99 11/10/20 05:00 88 28 129/56 (80) 98 11/10/20 04:00 80 11/10/20 04:00 50 11/10/20 04:00 90 27 125/91 (102) 96 11/10/20 04:00 Simple Mask 5.0 Simple Mask 5.0 11/10/20 03:30 81 22 108/44 (65) 96 11/10/20 03:26 92 24 97 30 11/10/20 03:00 90 24 157/45 (82) 97 11/10/20 02:30 75 21 109/43 (65) 96 11/10/20 02:00 84 22 114/56 (75) 96 11/10/20 01:45 73 20 98 30 11/10/20 01:30 88 24 129/95 (106) 97 11/10/20 01:00 80 21 110/54 (72) 97 11/10/20 00:30 93 22 150/80 (103) 99 11/10/20 00:00 Simple Mask 5.0 Simple Mask 5.0 11/10/20 00:00 50 11/10/20 00:00 80 24 112/58 (76) 99 11/10/20 00:00 84 11/09/20 23:30 90 23 158/88 (111) 98 11/09/20 23:02 81 22 98 Mechanical Ventilator 35 83 24 98 35 11/09/20 23:00 95 29 139/57 (84) 100 11/09/20 22:00 84 24 107/32 (57) 100 11/09/20 21:30 82 21 122/84 (97) 100 11/09/20 21:02 87 23 99 40 11/09/20 21:00 84 24 120/43 (68) 100 11/09/20 20:30 86 23 107/57 (74) 100 11/09/20 20:00 Simple Mask 5.0 Simple Mask 5.0 11/09/20 20:00 50 11/09/20 20:00 85 11/09/20 20:00 82 26 119/46 (70) 100 11/09/20 19:30 85 24 113/73 (86) 99 11/09/20 19:03 83 24 100 40 11/09/20 19:00 85 23 114/45 (68) 100 11/09/20 18:00 88 24 117/45 (69) 100 11/09/20 17:18 97 25 100 45 11/09/20 17:00 85 22 104/49 (67) 100 11/09/20 16:00 101 11/09/20 16:00 98.7 97 26 112/39 (63) 100 11/09/20 16:00 50 11/09/20 16:00 Simple Mask 5.0 Simple Mask 5.0 11/09/20 15:44 83 28 100 Bi-Pap 45 80 29 99 11/09/20 15:44 80 36 99 45 11/09/20 15:00 97 32 112/39 (63) 100 11/09/20 14:00 97 27 104/53 (70) 98 11/09/20 13:01 98 36 99 45 11/09/20 13:00 100 25 109/74 (86) 99 11/09/20 12:00 97.7 97 28 99/44 (62) 98 11/09/20 12:00 Simple Mask 5.0 Simple Mask 5.0 11/09/20 12:00 50 11/09/20 12:00 87 11/09/20 11:00 102 29 91/38 (55) 99 11/09/20 10:35 95 36 98 50 11/09/20 10:30 50 11/09/20 10:00 114 30 112/38 (62) 92 Intake and Output 11/09/20 11/10/20 19:00 07:00 Intake Total 400 ml Output Total 1060 ml 700 ml Balance -660 ml -700 ml Free Water 100 ml Tube Feeding 240 ml Other 60 ml Output Urine Total 1050 ml 700 ml Stool Total 10 ml # Bowel Movements 50 Objective appears less coherent today General Appearance: no acute distress HEENT: atraumatic Respiratory: lungs clear Cardiovascular: normal rate, regular rhythm Abdomen: soft, non tender, other - s/p PEG Laboratory Tests 11/09/20 09:58: Arterial Blood pH 7.331L, Arterial Blood Partial Pressure CO2 75.7*H, Arterial Blood Partial Pressure O2 58.6L, Arterial Blood HCO3 39.1H, Arterial Blood Oxyg en Saturation 87.9*L, Arterial Blood Base Excess 11.0*H, Gallo Test Positive 11/09/20 12:00: POC Whole Blood Glucose 131H 11/09/20 16:09: POC Whole Blood Glucose 111H 11/10/20 05:43: White Blood Count 5.6, Red Blood Count 2.85L, Hemoglobin 8.3L, Hematocrit 27.6L, Mean Corpuscular Volume 97, Mean Corpuscular Hemoglobin 29.2, Mean Corpuscular Hemoglobin Concent 30.1L, Red Cell Distribution Width 18.7H, Platelet Count 200, Mean Platelet Volume 7.7, Neutrophils (%) (Auto) 83.3H, Lymphocytes (%) (Auto) 10.5L, Monocytes (%) (Auto) 4.5, Eosinophils (%) (Auto) 1.5, Basophils (%) (Auto) 0.2, Sodium Level 153H, Potassium Level 4.0, Chloride Level 111H, Carbon Dioxide Level 39H, Anion Gap 3L, Blood Urea Nitrogen 51H, Creatinine 1.3, Estimat Glomerular Filtration Rate 39.1, Glucose Level 107H, Calcium Level 8.9, Phosphorus Level 3.1, Magnesium Level 2.2, Total Bilirubin 0.8, Aspartate Amino Transf (AST/SGOT) 16, Alanine Aminotransferase (ALT/SGPT) 15, Alkaline Phosphatase 72, Total Protein 5.6L, Albumin 2.0L, Globulin 3.6, Albumin/Globulin Ratio 0.6L Current Medications Medications (Trade) Dose Ordered Sig/Yolanda Route PRN Reason Start Time Stop Time Status Last Admin Dose Admin Acetaminophen (Tylenol) 650 mg Q4H PRN ORAL Pain Scale (6-10) 10/17/20 19:15 11/16/20 19:14 Acetaminophen (Tylenol) 650 mg Q6H PRN GT Mild Pain (Pain Scale 1-3) 11/04/20 10:45 12/04/20 10:44 11/04/20 18:20 Acetaminophen (Tylenol) 650 mg Q6H PRN GT Temp >100.5 11/04/20 10:45 12/04/20 10:44 Acetazolamide (Diamox) 250 mg Q6HR GT 11/09/20 12:00 11/11/20 06:01 11/10/20 06:48 Apixaban (Eliquis) 2.5 mg BID ORAL 10/24/20 18:00 01/22/21 17:59 11/09/20 17:50 Chlorhexidine Gluconate (Eve-Hex 2%) 1 applic DAILY@1999 TOPIC 10/22/20 20:00 01/20/21 19:59 11/09/20 20:33 Digoxin (Lanoxin) 0.125 mg DAILY GT 10/30/20 09:00 01/28/21 08:59 11/09/20 08:40 Haloperidol Lactate 5 mg/ Dextrose 56 ml @ 224 mls/hr Q6H PRN IVPB Agitation 11/04/20 20:30 12/19/20 20:29 11/07/20 21:16 Levalbuterol HCl (Xopenex) 1.25 mg Q8HRT HHN 11/08/20 09:30 11/13/20 12:59 11/10/20 07:20 Levofloxacin (Levaquin) 750 mg EVERY OTHER DAY GT 11/08/20 09:00 11/15/20 08:59 11/08/20 09:23 Levothyroxine Sodium (Synthroid) 50 mcg DAILY@0630 ORAL 10/19/20 06:30 11/18/20 06:29 11/10/20 06:49 Ondansetron HCl (Zofran) 4 mg Q6H PRN IVP Nausea & Vomiting 10/17/20 21:15 11/16/20 21:14 Pantoprazole (Protonix) 40 mg Q12HR IVP 11/02/20 21:00 11/25/20 20:59 11/09/20 21:18 Assessment/Plan Assessment/Plan 1. CHF - CXR (11/07) pulmonary vascular congestion and small pleural effusions. 2. CAD/previous non-STEMI. 3. alf resident. 4. Bradycardia. 5. Atrial fibrillation. -Started on Eliquis 6. Renal insufficiency. -Nephro following 7. Troponin leak. - Cardio following 8. COVID-19 pneumonia, without fever or leukocytosis - s/p intubated; now extubated 11/06/20 - ABG retaining CO2 -> will start BiPAP; ABG improved. Will start nasal O2 - Sp Cx (11/03) Gram negative bacillus -> now on meropenem per ID - added Levalbuterol 9. Respiratory failure, s/p vent - now extubated 10. 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 UTI, cheryl 12. Dysphagia -s/p PEG (10/23) 13. Hypotension; improved - s/p NS bolus - pressors as needed - added Diamox 250 mg q6hr x8 doses The care of this patient was discussed with my supervising physician Time spent for this encounter was approximately 31 minutes Tl Pedro Nov 10, 2020 09:12
--- NOTE | 2020-11-10 10:08 | Nephrology Progress Note ---
Assessment/Plan Problem List: (1) Acute kidney injury (2) Anemia (3) Hyperkalemia (4) Elevated troponin (5) Pneumonia due to COVID-19 virus (6) Hypothyroidism Assessment Plan November 10: On BiPAP. ABG reviewed. On Diamox. Serum sodium rising. 1 L D5W given. Continue to monitor renal parameters. Low vitamin D level of 13 addressed. November 09: Patient getting started on BiPAP. Is retaining CO2. Discussed with . We will start Diamox. Continue to monitor renal parameters. November 08: On oxygen mask. Labs reviewed. Patient full code. Continues to be extubated. Continue pulmonary toilet. Monitor renal parameters. Discussed with RN. Serum creatinine 1.6 at its lowest. November 07: Patient remains on nasal cannula. Full code. Labs reviewed. Low magnesium addressed. Discussed with SERGIO Wilkerson. Continue present care. November 06: Patient is now extubated. Labs reviewed. Medication list reviewed. Serum creatinine stable. Continue post extubation care. November 05: Mental status improved. Labs and medication list reviewed. Serum creatinine 2.2. Weaning trial in process. Continue per consultants. November 04: Full code. Intubated. Labs reviewed. Low potassium addressed. Serum creatinine stable 2.3. Continue per consultants. Weaning as possible. November 03: Remains full code. Remains intubated. FiO2 30%. Discussed with RN. Low potassium addressed. Patient remains on Lasix. Continue to monitor renal parameters. Serum creatinine slightly rising. November 02: Patient remains intubated on ventilator. FiO2 30%. Labs reviewed. Low potassium addressed. Medication list reviewed. Patient on Lasix 40 mg every 8 hours. Serum creatinine higher to 2.3. Feeding changed to Nepro. Potassium supplement given. Continue to monitor renal parameters. November 01: Seen in ICU. Now intubated on ventilator. Discussed with RN. Labs results noted. Abnormal electrolytes addressed. Discussed with RN. Continue per consultants. October 31: Patient seen in ICU. Discussed with SERGIO Miller. ABG noted. Patient acidotic. Being transfused. Potassium is being replaced. Due for another ABG and possible intubation if needed. Conferred with pulmonary and cardiology. October 30: Labs reviewed. Potassium elevated. Kayexalate ordered. Continue to monitor hemoglobin hematocrit and renal parameters. Serum creatinine 2.1. Remains on BiPAP. October 29: Seen in ICU. Discussed with SERGIO Wilkerson. Hemoglobin low. Transfuse 1 unit of packed RBCs. Potassium supplements IV given. Midodrine discontinued. Serum creatinine 2.2 stable. Patient remains on BiPAP. Continue per consultants. Continue to monitor hemoglobin hematocrit electrolytes and renal parameters. October 28: Seen in ICU. Remains on BiPAP. Low potassium and low magnesium addressed. Serum creatinine plateaued at 2.2. Continue per current treatment plan. October 27: Patient in ICU. On BiPAP. Serum creatinine rising. Blood pressure more stable. Will give 100 mg Lasix IV push with the hope of reversing oliguria. Medication list reviewed. Continue to monitor renal parameters. October 26: Seen in ICU. On pressors for low blood pressure. Serum creatinine 2.1. Albumin bolus given. Stress dose of steroids initiated. Continue to monitor renal parameters. Continue per consultants. October 25: Patient seen and examined. Trendelenburg. Blood pressure low. Tachycardic. Discussed with RN. Patient to be transferred to ICU. Discussed with ICU charge nurse and hospital charge nurse. Meanwhile patient started on Albumin bolus and 100 cc an hour D5 normal saline. Patient to be started on pressors while in ICU. Patient full code. October 24: No CHEM panel drawn today.. Renal parameters stable. Patient had a GT placed yesterday. Will check labs tomorrow. Medication list reviewed. October 23: Labs reviewed. Renal parameters unchanged. Creatinine 1.9. Continue current management. Medication list reviewed. October 22: Labs reviewed. Serum creatinine lower at 1.8. Patient started on clear liquid. Patient refuses p.o. medications and food at times. Continue per consultants. October 21: Labs reviewed. Serum creatinine unchanged. Continue per consultants. Continue to monitor renal parameters. October 20: Today's labs reviewed. Serum creatinine unchanged. RN reports patient not taking any p.o. meds. Continue per consultants. Serum creatinine appears to be baseline. October 19: Today's labs still not done yet. RN informed. Albumin bolus given again. Continue to monitor electrolytes and renal parameters. Per orders October 18: Patient hypotensive. Due for blood transfusion. Will give albumin bolus. Continue to monitor renal parameters and electrolytes. Labs and medication list reviewed Subjective ROS Limited/Unobtainable: Yes Objective Objective Last 24 Hour Vital Signs Date Time Temp Pulse Resp B/P (MAP) Pulse Ox O2 Delivery O2 Flow Rate FiO2 11/10/20 09:09 74 11/10/20 09:00 93 26 138/44 (75) 98 11/10/20 08:00 Simple Mask 5.0 Simple Mask 5.0 11/10/20 08:00 98.7 74 20 115/51 (72) 97 11/10/20 08:00 30 11/10/20 08:00 74 11/10/20 07:29 83 14 98 Mechanical Ventilator 35 91 24 98 30 11/10/20 07:00 84 24 122/61 (81) 98 11/10/20 06:30 81 19 133/68 (89) 98 11/10/20 06:00 78 22 141/85 (103) 98 11/10/20 05:31 85 22 98 30 11/10/20 05:30 81 23 124/51 (75) 99 11/10/20 05:00 88 28 129/56 (80) 98 11/10/20 04:00 80 11/10/20 04:00 50 11/10/20 04:00 90 27 125/91 (102) 96 11/10/20 04:00 Simple Mask 5.0 Simple Mask 5.0 11/10/20 03:30 81 22 108/44 (65) 96 11/10/20 03:26 92 24 97 30 11/10/20 03:00 90 24 157/45 (82) 97 11/10/20 02:30 75 21 109/43 (65) 96 11/10/20 02:00 84 22 114/56 (75) 96 11/10/20 01:45 73 20 98 30 11/10/20 01:30 88 24 129/95 (106) 97 11/10/20 01:00 80 21 110/54 (72) 97 11/10/20 00:30 93 22 150/80 (103) 99 11/10/20 00:00 Simple Mask 5.0 Simple Mask 5.0 11/10/20 00:00 50 11/10/20 00:00 80 24 112/58 (76) 99 11/10/20 00:00 84 11/09/20 23:30 90 23 158/88 (111) 98 11/09/20 23:02 81 22 98 Mechanical Ventilator 35 83 24 98 35 11/09/20 23:00 95 29 139/57 (84) 100 11/09/20 22:00 84 24 107/32 (57) 100 11/09/20 21:30 82 21 122/84 (97) 100 11/09/20 21:02 87 23 99 40 11/09/20 21:00 84 24 120/43 (68) 100 11/09/20 20:30 86 23 107/57 (74) 100 11/09/20 20:00 Simple Mask 5.0 Simple Mask 5.0 11/09/20 20:00 50 11/09/20 20:00 85 11/09/20 20:00 82 26 119/46 (70) 100 11/09/20 19:30 85 24 113/73 (86) 99 11/09/20 19:03 83 24 100 40 11/09/20 19:00 85 23 114/45 (68) 100 11/09/20 18:00 88 24 117/45 (69) 100 11/09/20 17:18 97 25 100 45 11/09/20 17:00 85 22 104/49 (67) 100 11/09/20 16:00 101 11/09/20 16:00 98.7 97 26 112/39 (63) 100 11/09/20 16:00 50 11/09/20 16:00 Simple Mask 5.0 Simple Mask 5.0 11/09/20 15:44 83 28 100 Bi-Pap 45 80 29 99 11/09/20 15:44 80 36 99 45 11/09/20 15:00 97 32 112/39 (63) 100 11/09/20 14:00 97 27 104/53 (70) 98 11/09/20 13:01 98 36 99 45 11/09/20 13:00 100 25 109/74 (86) 99 11/09/20 12:00 97.7 97 28 99/44 (62) 98 11/09/20 12:00 Simple Mask 5.0 Simple Mask 5.0 11/09/20 12:00 50 11/09/20 12:00 87 11/09/20 11:00 102 29 91/38 (55) 99 11/09/20 10:35 95 36 98 50 11/09/20 10:30 50 Intake and Output 11/09/20 11/10/20 19:00 07:00 Intake Total 400 ml Output Total 1060 ml 700 ml Balance -660 ml -700 ml Free Water 100 ml Tube Feeding 240 ml Other 60 ml Output Urine Total 1050 ml 700 ml Stool Total 10 ml # Bowel Movements 50 Current Medications Medications (Trade) Dose Ordered Sig/Yolanda Route PRN Reason Start Time Stop Time Status Last Admin Dose Admin Acetaminophen (Tylenol) 650 mg Q4H PRN ORAL Pain Scale (6-10) 10/17/20 19:15 11/16/20 19:14 Acetaminophen (Tylenol) 650 mg Q6H PRN GT Mild Pain (Pain Scale 1-3) 11/04/20 10:45 12/04/20 10:44 11/04/20 18:20 Acetaminophen (Tylenol) 650 mg Q6H PRN GT Temp >100.5 11/04/20 10:45 12/04/20 10:44 Acetazolamide (Diamox) 250 mg Q6HR GT 11/09/20 12:00 11/11/20 06:01 11/10/20 06:48 Apixaban (Eliquis) 2.5 mg BID ORAL 10/24/20 18:00 01/22/21 17:59 11/10/20 09:09 Chlorhexidine Gluconate (Eve-Hex 2%) 1 applic DAILY@2000 TOPIC 10/22/20 20:00 01/20/21 19:59 11/09/20 20:33 Digoxin (Lanoxin) 0.125 mg DAILY GT 10/30/20 09:00 01/28/21 08:59 11/10/20 09:09 Haloperidol Lactate 5 mg/ Dextrose 56 ml @ 224 mls/hr Q6H PRN IVPB Agitation 11/04/20 20:30 12/19/20 20:29 11/07/20 21:16 Levalbuterol HCl (Xopenex) 1.25 mg Q8HRT HHN 11/08/20 09:30 11/13/20 12:59 11/10/20 07:20 Levofloxacin (Levaquin) 750 mg EVERY OTHER DAY GT 11/08/20 09:00 11/15/20 08:59 11/10/20 09:09 Levothyroxine Sodium (Synthroid) 50 mcg DAILY@0630 ORAL 10/19/20 06:30 11/18/20 06:29 11/10/20 06:49 Ondansetron HCl (Zofran) 4 mg Q6H PRN IVP Nausea & Vomiting 10/17/20 21:15 11/16/20 21:14 Pantoprazole (Protonix) 40 mg Q12HR IVP 11/02/20 21:00 11/25/20 20:59 11/10/20 09:09 Laboratory Tests 11/09/20 12:00: POC Whole Blood Glucose 131H 11/09/20 16:09: POC Whole Blood Glucose 111H 11/10/20 05:43: White Blood Count 5.6, Red Blood Count 2.85L, Hemoglobin 8.3L, Hematocrit 27.6L, Mean Corpuscular Volume 97, Mean Corpuscular Hemoglobin 29.2, Mean Corpuscular Hemoglobin Concent 30.1L, Red Cell Distribution Width 18.7H, Platelet Count 200, Mean Platelet Volume 7.7, Neutrophils (%) (Auto) 83.3H, Lymphocytes (%) (Auto) 10.5L, Monocytes (%) (Auto) 4.5, Eosinophils (%) (Auto) 1.5, Basophils (%) (Auto) 0.2, Sodium Level 153H, Potassium Level 4.0, Chloride Level 111H, Carbon Dioxide Level 39H, Anion Gap 3L, Blood Urea Nitrogen 51H, Creatinine 1.3, Estimat Glomerular Filtration Rate 39.1, Glucose Level 107H, Calcium Level 8.9, Phosphorus Level 3.1, Magnesium Level 2.2, Total Bilirubin 0.8, Aspartate Amino Transf (AST/SGOT) 16, Alanine Aminotransferase (ALT/SGPT) 15, Alkaline Phosphatase 72, Total Protein 5.6L, Albumin 2.0L, Globulin 3.6, Albumin/Globulin Ratio 0.6L 11/10/20 08:32: Arterial Blood pH 7.412, Arterial Blood Partial Pressure CO2 59.5*H, Arterial Blood Partial Pressure O2 84.8, Arterial Blood HCO3 37.0H, Arterial Blood Oxygen Saturation 95.6, Arterial Blood Base Excess 10.8*H, Gallo Test Positive Height (Feet): 5 Height (Inches): 0.00 Weight (Pounds): 145 General Appearance: no apparent distress EENT: other - On BiPAP Cardiovascular: normal rate Respiratory/Chest: decreased breath sounds Abdomen: distended Dustin Gómez MD Nov 10, 2020 10:08
--- NOTE | 2020-11-10 10:35 | NUR ---
NURSE NOTES: Per results of ABG,Dr Woods thru [facility] Pedro ordered to switch fr Bipap to nasal cannula 5L ,keep O2 sat > 90%.Shaun notified.
--- NOTE | 2020-11-10 10:45 | Infectious Diseases Prog Note ---
Assessment/Plan Assessment/Plan IMPRESSION: Pneumonia with Pseudomonas Hypercapnic, hypoxic respiratory failure Recent history of COVID disease, Acute renal failure, Aortic stenosis Atrial fibrillation, hypothyroidism, Anemia. Chronic DVT of R leg Hypotension Gastrostomy status Respiratory acidosis Left pleural effusion RECOMMENDATION: Continue Levaquin Thoracentesis Subjective ROS Limited/Unobtainable: Yes Allergies: Coded Allergies: No Known Allergies (Unverified , 10/17/20) Objective Last 24 Hour Vital Signs Date Time Temp Pulse Resp B/P (MAP) Pulse Ox O2 Delivery O2 Flow Rate FiO2 11/10/20 10:00 92 23 138/44 (75) 98 11/10/20 09:09 74 11/10/20 09:00 93 26 138/44 (75) 98 11/10/20 08:00 Simple Mask 5.0 Simple Mask 5.0 11/10/20 08:00 98.7 74 20 115/51 (72) 97 11/10/20 08:00 30 11/10/20 08:00 74 11/10/20 07:29 83 14 98 Mechanical Ventilator 35 91 24 98 30 11/10/20 07:00 84 24 122/61 (81) 98 11/10/20 06:30 81 19 133/68 (89) 98 11/10/20 06:00 78 22 141/85 (103) 98 11/10/20 05:31 85 22 98 30 11/10/20 05:30 81 23 124/51 (75) 99 11/10/20 05:00 88 28 129/56 (80) 98 11/10/20 04:00 80 11/10/20 04:00 50 11/10/20 04:00 90 27 125/91 (102) 96 11/10/20 04:00 Simple Mask 5.0 Simple Mask 5.0 11/10/20 03:30 81 22 108/44 (65) 96 11/10/20 03:26 92 24 97 30 11/10/20 03:00 90 24 157/45 (82) 97 11/10/20 02:30 75 21 109/43 (65) 96 11/10/20 02:00 84 22 114/56 (75) 96 11/10/20 01:45 73 20 98 30 11/10/20 01:30 88 24 129/95 (106) 97 11/10/20 01:00 80 21 110/54 (72) 97 11/10/20 00:30 93 22 150/80 (103) 99 11/10/20 00:00 Simple Mask 5.0 Simple Mask 5.0 11/10/20 00:00 50 11/10/20 00:00 80 24 112/58 (76) 99 11/10/20 00:00 84 11/09/20 23:30 90 23 158/88 (111) 98 11/09/20 23:02 81 22 98 Mechanical Ventilator 35 83 24 98 35 11/09/20 23:00 95 29 139/57 (84) 100 11/09/20 22:00 84 24 107/32 (57) 100 11/09/20 21:30 82 21 122/84 (97) 100 11/09/20 21:02 87 23 99 40 11/09/20 21:00 84 24 120/43 (68) 100 11/09/20 20:30 86 23 107/57 (74) 100 11/09/20 20:00 Simple Mask 5.0 Simple Mask 5.0 11/09/20 20:00 50 11/09/20 20:00 85 11/09/20 20:00 82 26 119/46 (70) 100 11/09/20 19:30 85 24 113/73 (86) 99 11/09/20 19:03 83 24 100 40 11/09/20 19:00 85 23 114/45 (68) 100 11/09/20 18:00 88 24 117/45 (69) 100 11/09/20 17:18 97 25 100 45 11/09/20 17:00 85 22 104/49 (67) 100 11/09/20 16:00 101 11/09/20 16:00 98.7 97 26 112/39 (63) 100 11/09/20 16:00 50 11/09/20 16:00 Simple Mask 5.0 Simple Mask 5.0 11/09/20 15:44 83 28 100 Bi-Pap 45 80 29 99 11/09/20 15:44 80 36 99 45 11/09/20 15:00 97 32 112/39 (63) 100 11/09/20 14:00 97 27 104/53 (70) 98 11/09/20 13:01 98 36 99 45 11/09/20 13:00 100 25 109/74 (86) 99 11/09/20 12:00 97.7 97 28 99/44 (62) 98 11/09/20 12:00 Simple Mask 5.0 Simple Mask 5.0 11/09/20 12:00 50 11/09/20 12:00 87 11/09/20 11:00 102 29 91/38 (55) 99 Height (Feet): 5 Height (Inches): 0.00 Weight (Pounds): 145 HEENT: mucous membranes moist Respiratory/Chest: decreased breath sounds, other - on BIPAP Cardiovascular: normal rate Abdomen: soft, non tender, other - GT feeding Extremities: other - decreased edema Neurologic/Psychiatric: alert Laboratory Tests Test 11/09/20 12:00 11/09/20 16:09 11/10/20 05:43 11/10/20 08:32 POC Whole Blood Glucose 131 MG/DL (74-106) H 111 MG/DL (74-106) H White Blood Count 5.6 K/UL (4.8-10.8) Red Blood Count 2.85 M/UL (4.20-5.40) L Hemoglobin 8.3 G/DL (12.0-16.0) L Hematocrit 27.6 % (37.0-47.0) L Mean Corpuscular Volume 97 FL (80-99) Mean Corpuscular Hemoglobin 29.2 PG (27.0-31.0) Mean Corpuscular Hemoglobin Concent 30.1 G/DL (32.0-36.0) L Red Cell Distribution Width 18.7 % (11.6-14.8) H Platelet Count 200 K/UL (150-450) Mean Platelet Volume 7.7 FL (6.5-10.1) Neutrophils (%) (Auto) 83.3 % (45.0-75.0) H Lymphocytes (%) (Auto) 10.5 % (20.0-45.0) L Monocytes (%) (Auto) 4.5 % (1.0-10.0) Eosinophils (%) (Auto) 1.5 % (0.0-3.0) Basophils (%) (Auto) 0.2 % (0.0-2.0) Sodium Level 153 MMOL/L (136-145) H Potassium Level 4.0 MMOL/L (3.5-5.1) Chloride Level 111 MMOL/L (98-107) H Carbon Dioxide Level 39 MMOL/L (21-32) H Anion Gap 3 mmol/L (5-15) L Blood Urea Nitrogen 51 mg/dL (7-18) H Creatinine 1.3 MG/DL (0.55-1.30) Estimat Glomerular Filtration Rate 39.1 mL/min (>60) Glucose Level 107 MG/DL (74-106) H Calcium Level 8.9 MG/DL (8.5-10.1) Phosphorus Level 3.1 MG/DL (2.5-4.9) Magnesium Level 2.2 MG/DL (1.8-2.4) Total Bilirubin 0.8 MG/DL (0.2-1.0) Aspartate Amino Transf (AST/SGOT) 16 U/L (15-37) Alanine Aminotransferase (ALT/SGPT) 15 U/L (12-78) Alkaline Phosphatase 72 U/L (46-116) Total Protein 5.6 G/DL (6.4-8.2) L Albumin 2.0 G/DL (3.4-5.0) L Globulin 3.6 g/dL Albumin/Globulin Ratio 0.6 (1.0-2.7) L Arterial Blood pH 7.412 (7.350-7.450) Arterial Blood Partial Pressure CO2 59.5 mmHg (35.0-45.0) *H Arterial Blood Partial Pressure O2 84.8 mmHg (75.0-100.0) Arterial Blood HCO3 37.0 mmol/L (22.0-26.0) H Arterial Blood Oxygen Saturation 95.6 % (95-100) Arterial Blood Base Excess 10.8 (-2-2) *H Gallo Test Positive Current Medications Medications (Trade) Dose Ordered Sig/Yolanda Route PRN Reason Start Time Stop Time Status Last Admin Dose Admin Acetaminophen (Tylenol) 650 mg Q4H PRN ORAL Pain Scale (6-10) 10/17/20 19:15 11/16/20 19:14 Acetaminophen (Tylenol) 650 mg Q6H PRN GT Mild Pain (Pain Scale 1-3) 11/04/20 10:45 12/04/20 10:44 11/04/20 18:20 Acetaminophen (Tylenol) 650 mg Q6H PRN GT Temp >100.5 11/04/20 10:45 12/04/20 10:44 Acetazolamide (Diamox) 250 mg Q6HR GT 11/09/20 12:00 11/11/20 06:01 11/10/20 06:48 Apixaban (Eliquis) 2.5 mg BID ORAL 10/24/20 18:00 01/22/21 17:59 11/10/20 09:09 Chlorhexidine Gluconate (Eve-Hex 2%) 1 applic DAILY@2000 TOPIC 10/22/20 20:00 01/20/21 19:59 11/09/20 20:33 Dextrose 1,000 ml @ 100 mls/hr Q10H IV 11/10/20 10:15 11/10/20 20:14 Digoxin (Lanoxin) 0.125 mg DAILY GT 10/30/20 09:00 01/28/21 08:59 11/10/20 09:09 Ergocalciferol (Drisdol) 50,000 intlu QWEEK ORAL 11/10/20 12:00 12/10/20 11:59 Haloperidol Lactate 5 mg/ Dextrose 56 ml @ 224 mls/hr Q6H PRN IVPB Agitation 11/04/20 20:30 12/19/20 20:29 11/07/20 21:16 Levalbuterol HCl (Xopenex) 1.25 mg Q8HRT HHN 11/08/20 09:30 11/13/20 12:59 11/10/20 07:20 Levofloxacin (Levaquin) 750 mg EVERY OTHER DAY GT 11/08/20 09:00 11/15/20 08:59 11/10/20 09:09 Levothyroxine Sodium (Synthroid) 50 mcg DAILY@0630 ORAL 10/19/20 06:30 11/18/20 06:29 11/10/20 06:49 Ondansetron HCl (Zofran) 4 mg Q6H PRN IVP Nausea & Vomiting 10/17/20 21:15 11/16/20 21:14 Pantoprazole (Protonix) 40 mg Q12HR IVP 11/02/20 21:00 11/25/20 20:59 11/10/20 09:09 Luis Alvarado MD 16, 2021 10:45
--- NOTE | 2020-11-10 11:10 | NUR ---
RESPIRATORY NOTE: Removed BIPAP and placed on 2L NC per Dr. Woods post ABG. SpO2 100%. Elsie HILL aware. Will continue to closely monitor. Addendum: 11/10/20 at 1112 by Isela Cristobal RT BIPAP standby.
--- NOTE | 2020-11-10 11:15 | Surgery Progress Note ---
Surgery Progress Note Subjective Procedure Performed left subclavian central venous catheter insertion Additional Comments on bipap labs and imaging reviewed no n/v awake somewhat responsive no n/v Objective Last 24 Hour Vital Signs Date Time Temp Pulse Resp B/P (MAP) Pulse Ox O2 Delivery O2 Flow Rate FiO2 11/10/20 11:12 100 Nasal Cannula 2.0 28 11/10/20 11:00 74 23 140/72 (94) 98 11/10/20 10:00 92 23 138/44 (75) 98 11/10/20 09:09 74 11/10/20 09:00 93 26 138/44 (75) 98 11/10/20 08:00 Simple Mask 5.0 Simple Mask 5.0 11/10/20 08:00 98.7 74 20 115/51 (72) 97 11/10/20 08:00 30 11/10/20 08:00 74 11/10/20 07:29 83 14 98 Mechanical Ventilator 35 91 24 98 30 11/10/20 07:00 84 24 122/61 (81) 98 11/10/20 06:30 81 19 133/68 (89) 98 11/10/20 06:00 78 22 141/85 (103) 98 11/10/20 05:31 85 22 98 30 11/10/20 05:30 81 23 124/51 (75) 99 11/10/20 05:00 88 28 129/56 (80) 98 11/10/20 04:00 80 11/10/20 04:00 50 11/10/20 04:00 90 27 125/91 (102) 96 11/10/20 04:00 Simple Mask 5.0 Simple Mask 5.0 11/10/20 03:30 81 22 108/44 (65) 96 11/10/20 03:26 92 24 97 30 11/10/20 03:00 90 24 157/45 (82) 97 11/10/20 02:30 75 21 109/43 (65) 96 11/10/20 02:00 84 22 114/56 (75) 96 11/10/20 01:45 73 20 98 30 11/10/20 01:30 88 24 129/95 (106) 97 11/10/20 01:00 80 21 110/54 (72) 97 11/10/20 00:30 93 22 150/80 (103) 99 11/10/20 00:00 Simple Mask 5.0 Simple Mask 5.0 11/10/20 00:00 50 11/10/20 00:00 80 24 112/58 (76) 99 11/10/20 00:00 84 11/09/20 23:30 90 23 158/88 (111) 98 11/09/20 23:02 81 22 98 Mechanical Ventilator 35 83 24 98 35 11/09/20 23:00 95 29 139/57 (84) 100 11/09/20 22:00 84 24 107/32 (57) 100 11/09/20 21:30 82 21 122/84 (97) 100 11/09/20 21:02 87 23 99 40 11/09/20 21:00 84 24 120/43 (68) 100 11/09/20 20:30 86 23 107/57 (74) 100 11/09/20 20:00 Simple Mask 5.0 Simple Mask 5.0 11/09/20 20:00 50 11/09/20 20:00 85 11/09/20 20:00 82 26 119/46 (70) 100 11/09/20 19:30 85 24 113/73 (86) 99 11/09/20 19:03 83 24 100 40 11/09/20 19:00 85 23 114/45 (68) 100 11/09/20 18:00 88 24 117/45 (69) 100 11/09/20 17:18 97 25 100 45 11/09/20 17:00 85 22 104/49 (67) 100 11/09/20 16:00 101 11/09/20 16:00 98.7 97 26 112/39 (63) 100 11/09/20 16:00 50 11/09/20 16:00 Simple Mask 5.0 Simple Mask 5.0 11/09/20 15:44 83 28 100 Bi-Pap 45 80 29 99 11/09/20 15:44 80 36 99 45 11/09/20 15:00 97 32 112/39 (63) 100 11/09/20 14:00 97 27 104/53 (70) 98 11/09/20 13:01 98 36 99 45 11/09/20 13:00 100 25 109/74 (86) 99 11/09/20 12:00 97.7 97 28 99/44 (62) 98 11/09/20 12:00 Simple Mask 5.0 Simple Mask 5.0 11/09/20 12:00 50 11/09/20 12:00 87 I&O Intake and Output 11/09/20 11/10/20 19:00 07:00 Intake Total 400 ml Output Total 1060 ml 700 ml Balance -660 ml -700 ml Free Water 100 ml Tube Feeding 240 ml Other 60 ml Output Urine Total 1050 ml 700 ml Stool Total 10 ml # Bowel Movements 50 Dressing: saturated Cardiovascular: RSR Respiratory: decreased breath sounds, other Abdomen: soft, non-tender, present bowel sounds, non-distended Extremities: edema, no tenderness, no cyanosis Laboratory Tests Test 11/09/20 12:00 11/09/20 16:09 11/10/20 05:43 11/10/20 08:32 POC Whole Blood Glucose 131 MG/DL (74-106) H 111 MG/DL (74-106) H White Blood Count 5.6 K/UL (4.8-10.8) Red Blood Count 2.85 M/UL (4.20-5.40) L Hemoglobin 8.3 G/DL (12.0-16.0) L Hematocrit 27.6 % (37.0-47.0) L Mean Corpuscular Volume 97 FL (80-99) Mean Corpuscular Hemoglobin 29.2 PG (27.0-31.0) Mean Corpuscular Hemoglobin Concent 30.1 G/DL (32.0-36.0) L Red Cell Distribution Width 18.7 % (11.6-14.8) H Platelet Count 200 K/UL (150-450) Mean Platelet Volume 7.7 FL (6.5-10.1) Neutrophils (%) (Auto) 83.3 % (45.0-75.0) H Lymphocytes (%) (Auto) 10.5 % (20.0-45.0) L Monocytes (%) (Auto) 4.5 % (1.0-10.0) Eosinophils (%) (Auto) 1.5 % (0.0-3.0) Basophils (%) (Auto) 0.2 % (0.0-2.0) Sodium Level 153 MMOL/L (136-145) H Potassium Level 4.0 MMOL/L (3.5-5.1) Chloride Level 111 MMOL/L (98-107) H Carbon Dioxide Level 39 MMOL/L (21-32) H Anion Gap 3 mmol/L (5-15) L Blood Urea Nitrogen 51 mg/dL (7-18) H Creatinine 1.3 MG/DL (0.55-1.30) Estimat Glomerular Filtration Rate 39.1 mL/min (>60) Glucose Level 107 MG/DL (74-106) H Calcium Level 8.9 MG/DL (8.5-10.1) Phosphorus Level 3.1 MG/DL (2.5-4.9) Magnesium Level 2.2 MG/DL (1.8-2.4) Total Bilirubin 0.8 MG/DL (0.2-1.0) Aspartate Amino Transf (AST/SGOT) 16 U/L (15-37) Alanine Aminotransferase (ALT/SGPT) 15 U/L (12-78) Alkaline Phosphatase 72 U/L (46-116) Total Protein 5.6 G/DL (6.4-8.2) L Albumin 2.0 G/DL (3.4-5.0) L Globulin 3.6 g/dL Albumin/Globulin Ratio 0.6 (1.0-2.7) L Arterial Blood pH 7.412 (7.350-7.450) Arterial Blood Partial Pressure CO2 59.5 mmHg (35.0-45.0) *H Arterial Blood Partial Pressure O2 84.8 mmHg (75.0-100.0) Arterial Blood HCO3 37.0 mmol/L (22.0-26.0) H Arterial Blood Oxygen Saturation 95.6 % (95-100) Arterial Blood Base Excess 10.8 (-2-2) *H Gallo Test Positive Plan Problems: (1) Anemia (2) Acute kidney injury (3) Atrial fibrillation (4) Hyperkalemia (5) Elevated troponin (6) Decubitus skin ulcer Assessment & Plan: Pt presented on admission with Multiple Medical Comorbidities including Covid-19 and Pressure Injuries. Primary Nurse reported Pt has been declining food and medications. Sacral DTPI that is evolving noted to Sacrum(L)6cm x (W)12.5cm.. Scattered Purpuric areas that are indurated noted to R and L cheek. Small wound that is 100% slough (L)0.6cm x (W)0.7cm noted at sacrococcygeal area within base of DTPI. MASD noted to Perineum and skin folds of Medial/posterior aspects of Both upper thighs. Affected areas are erythematous and macerated with scattered satellite lesions. DTPI L Heel (L)3cm x (W)4cm, Base of heel is maroon and fluctuant with small purpuric area (L)0.4cm x (W)0.9cm within base of DTPI. l Foot including toes are mottled and cool to touch. L Heel is boggy. L Heel including toes are Mottled and cool to touch. Tx.Plan: Apply Moisture Barrier Paste to Sacrum. Cover with Optifoam drsg.Change every 3 days and prn. Apply Moisture Barrier Paste to abdominal folds, Perineum and skin folds of both upper thighs. Apply Cavilon Skin Barrier to both heels. Cover each Heel with Optifoam drsg. Change every 7 days and prn. Reposition at least every 2hours or as tolerated. Off-load heels with pillow. (7) Malnutrition Assessment & Plan: She was able to self feed on right hand and took a bite of popsicle and tolerated without s.s of aspiration. After 1st bite, then she refused 2nd bite. After this was done, I offered her a cup of cranberry juice, she took few sips and tolerated without s.s of aspiration. I continued to offer but she refused further PO. A: 1. Functional swallow 2. Failure to thrive 3. abnormal electrolytes in setting of heart failure, NSTEMI, elevated BNP, etc.. P/Rec. 1. Pureed and thin liquid 2.3. Goal of care discussion DAILY ESTIMATED NEEDS: Needs based on Cardiac, pulmonary/ 51kg abw 25-30 kcals/kg 1259-9326 total kcals 1-1.5 g protein/kg 51-76 g total protein 20-25 mL/kg 0518-1412 total fluid mLs NUTRITION DIAGNOSIS: Swallowing difficulty R/T dysphagia, decreased cognitive fxn as evidenced by SIDE LASTER TACK recommends pureed moist texture diet at this time. CURRENT DIET:NPO PO DIET RECOMMENDATIONS: Liberalized REGULAR w/ poor PO (texture per SIDE LASTER TACK) ADDITIONAL RECOMMENDATIONS: * Calibrated bedscale wt * Monitor PO intake: refusing meds and foods at this time -> rec nonoral feeds w/ continued refusal of PO if part of POC * LOW NA diet w/ PO intake consistently >50% * 4 oz Ensure TID w/ meals (4oz at this time due to poor acceptance, may increase to 8oz w/ good acceptance) (8) Pneumonia due to COVID-19 virus Assessment & Plan: here appears to be increased left pleural fluid and generalized hazy parenchymal opacity, left greater than right. Heart remains enlarged Impression: Increased left pleural effusion Suspect increasing bilateral left greater than right pulmonary edema versus infiltrates worsening intubated on vent weaned extubated (9) Hypothyroidism Jim Orosco Nov 10, 2020 11:15
--- NOTE | 2020-11-10 11:58 | General Progress Note ---
Subjective ROS Limited/Unobtainable: No Allergies: Coded Allergies: No Known Allergies (Unverified , 10/17/20) Subjective intubated now Objective Last 24 Hour Vital Signs Date Time Temp Pulse Resp B/P (MAP) Pulse Ox O2 Delivery O2 Flow Rate FiO2 11/10/20 11:12 100 Nasal Cannula 2.0 28 11/10/20 11:00 74 23 140/72 (94) 98 11/10/20 10:00 92 23 138/44 (75) 98 11/10/20 09:09 74 11/10/20 09:00 93 26 138/44 (75) 98 11/10/20 08:00 Simple Mask 5.0 Simple Mask 5.0 11/10/20 08:00 98.7 74 20 115/51 (72) 97 11/10/20 08:00 30 11/10/20 08:00 74 11/10/20 07:29 83 14 98 Mechanical Ventilator 35 91 24 98 30 11/10/20 07:00 84 24 122/61 (81) 98 11/10/20 06:30 81 19 133/68 (89) 98 11/10/20 06:00 78 22 141/85 (103) 98 11/10/20 05:31 85 22 98 30 11/10/20 05:30 81 23 124/51 (75) 99 11/10/20 05:00 88 28 129/56 (80) 98 11/10/20 04:00 80 11/10/20 04:00 50 11/10/20 04:00 90 27 125/91 (102) 96 11/10/20 04:00 Simple Mask 5.0 Simple Mask 5.0 11/10/20 03:30 81 22 108/44 (65) 96 11/10/20 03:26 92 24 97 30 11/10/20 03:00 90 24 157/45 (82) 97 11/10/20 02:30 75 21 109/43 (65) 96 11/10/20 02:00 84 22 114/56 (75) 96 11/10/20 01:45 73 20 98 30 11/10/20 01:30 88 24 129/95 (106) 97 11/10/20 01:00 80 21 110/54 (72) 97 11/10/20 00:30 93 22 150/80 (103) 99 11/10/20 00:00 Simple Mask 5.0 Simple Mask 5.0 11/10/20 00:00 50 11/10/20 00:00 80 24 112/58 (76) 99 11/10/20 00:00 84 11/09/20 23:30 90 23 158/88 (111) 98 11/09/20 23:02 81 22 98 Mechanical Ventilator 35 83 24 98 35 11/09/20 23:00 95 29 139/57 (84) 100 11/09/20 22:00 84 24 107/32 (57) 100 11/09/20 21:30 82 21 122/84 (97) 100 11/09/20 21:02 87 23 99 40 11/09/20 21:00 84 24 120/43 (68) 100 11/09/20 20:30 86 23 107/57 (74) 100 11/09/20 20:00 Simple Mask 5.0 Simple Mask 5.0 11/09/20 20:00 50 11/09/20 20:00 85 11/09/20 20:00 82 26 119/46 (70) 100 11/09/20 19:30 85 24 113/73 (86) 99 11/09/20 19:03 83 24 100 40 11/09/20 19:00 85 23 114/45 (68) 100 11/09/20 18:00 88 24 117/45 (69) 100 11/09/20 17:18 97 25 100 45 11/09/20 17:00 85 22 104/49 (67) 100 11/09/20 16:00 101 11/09/20 16:00 98.7 97 26 112/39 (63) 100 11/09/20 16:00 50 11/09/20 16:00 Simple Mask 5.0 Simple Mask 5.0 11/09/20 15:44 83 28 100 Bi-Pap 45 80 29 99 11/09/20 15:44 80 36 99 45 11/09/20 15:00 97 32 112/39 (63) 100 11/09/20 14:00 97 27 104/53 (70) 98 11/09/20 13:01 98 36 99 45 11/09/20 13:00 100 25 109/74 (86) 99 11/09/20 12:00 97.7 97 28 99/44 (62) 98 11/09/20 12:00 Simple Mask 5.0 Simple Mask 5.0 11/09/20 12:00 50 11/09/20 12:00 87 Intake and Output 11/09/20 11/10/20 19:00 07:00 Intake Total 400 ml Output Total 1060 ml 700 ml Balance -660 ml -700 ml Free Water 100 ml Tube Feeding 240 ml Other 60 ml Output Urine Total 1050 ml 700 ml Stool Total 10 ml # Bowel Movements 50 Laboratory Tests 11/09/20 12:00: POC Whole Blood Glucose 131H 11/09/20 16:09: POC Whole Blood Glucose 111H 11/10/20 05:43: White Blood Count 5.6, Red Blood Count 2.85L, Hemoglobin 8.3L, Hematocrit 27.6L, Mean Corpuscular Volume 97, Mean Corpuscular Hemoglobin 29.2, Mean Corpuscular Hemoglobin Concent 30.1L, Red Cell Distribution Width 18.7H, Platelet Count 200, Mean Platelet Volume 7.7, Neutrophils (%) (Auto) 83.3H, Lymphocytes (%) (Auto) 10.5L, Monocytes (%) (Auto) 4.5, Eosinophils (%) (Auto) 1.5, Basophils (%) (Auto) 0.2, Sodium Level 153H, Potassium Level 4.0, Chloride Level 111H, Carbon Dioxide Level 39H, Anion Gap 3L, Blood Urea Nitrogen 51H, Creatinine 1.3, Estimat Glomerular Filtration Rate 39.1, Glucose Level 107H, Calcium Level 8.9, Phosphorus Level 3.1, Magnesium Level 2.2, Total Bilirubin 0.8, Aspartate Amino Transf (AST/SGOT) 16, Alanine Aminotransferase (ALT/SGPT) 15, Alkaline Phosphatase 72, Total Protein 5.6L, Albumin 2.0L, Globulin 3.6, Albumin/Globulin Ratio 0.6L 11/10/20 08:32: Arterial Blood pH 7.412, Arterial Blood Partial Pressure CO2 59.5*H, Arterial Blood Partial Pressure O2 84.8, Arterial Blood HCO3 37.0H, Arterial Blood Oxygen Saturation 95.6, Arterial Blood Base Excess 10.8*H, Gallo Test Positive Height (Feet): 5 Height (Inches): 0.00 Weight (Pounds): 145 General Appearance: no apparent distress EENT: normal ENT inspection Neck: supple Cardiovascular: normal rate Respiratory/Chest: decreased breath sounds Abdomen: hypoactive bowel sounds Extremities: non-tender Assessment/Plan Problem List: (1) Hypothyroidism ICD Codes: E03.9 - Hypothyroidism, unspecified SNOMED: 14791313 (2) Pneumonia due to COVID-19 virus ICD Codes: U07.1 - COVID-19; J12.82 - Pneumonia due to coronavirus disease 2019 SNOMED: 031876582289826496 (3) Malnutrition ICD Codes: E46 - Unspecified protein-calorie malnutrition SNOMED: 86161496 (4) Decubitus skin ulcer ICD Codes: L89.90 - Pressure ulcer of unspecified site, unspecified stage SNOMED: 972786980 (5) Elevated troponin ICD Codes: R77.8 - Other specified abnormalities of plasma proteins SNOMED: 889381664, 650230841, 456648299 (6) Atrial fibrillation ICD Codes: I48.91 - Unspecified atrial fibrillation SNOMED: 17620837 (7) Anemia ICD Codes: D64.9 - Anemia, unspecified SNOMED: 896112669 Status: progressing, unchanged Assessment/Plan: GTF fu cardiology fu pulm labs for AM extubated now Skyler Tobar MD Nov 10, 2020 11:58
[2020-11-10] MEDS ORDERED: Vitamin D 50,000 units cap ORAL SCH (12:00)
--- NOTE | 2020-11-10 12:44 | Cardiac Electrophysiology PN ---
Assessment/Plan Assessment/Plan 1. NSTEMI with elevated troponin of more than 0.2 and hx of prior ND The level has come down to 0.19, but the levels are flat and likely due to renal failure as the creatinine is 2.1. On aspirin and off Lopressor as hypotensive 2. Atrial fibrillation with rapid ventricular response. Off Lopressor for low BP On Dig 0.125 PEG daily and Eliquis 2.5 bid. Dig level 1.7 3. Respiratory failure , Extubated 11/06/20. On Diamox 4. S/P Septic shock, off Levophed 5. Renal insufficiency. BUN 53 Cr 2.4. Lasix changed to Diamox 6. Status post COVID pneumonia, was tested positive more than two weeks ago. Now is Covid negative 7. Dysphagia, S/P PEG 10/23/[address] Full code. DW Dr. Gómez Subjective Subjective S/P PEG by Dr. Tobar 10/23/20 In ICU off pressors. Covid negative 10/25 and is off isolation In atrial fib with rate around 100. Dig level 1.7 Extubated 11/06/20. On 5 liter NC and PCO2 59 Objective Last 24 Hour Vital Signs Date Time Temp Pulse Resp B/P (MAP) Pulse Ox O2 Delivery O2 Flow Rate FiO2 11/10/20 12:00 5.0 11/10/20 12:00 Simple Mask 5.0 Simple Mask 5.0 11/10/20 12:00 85 11/10/20 12:00 97.8 80 23 117/57 (77) 92 11/10/20 11:12 100 Nasal Cannula 2.0 28 11/10/20 11:00 74 23 140/72 (94) 98 11/10/20 10:00 92 23 138/44 (75) 98 11/10/20 09:09 74 11/10/20 09:00 93 26 138/44 (75) 98 11/10/20 08:00 Simple Mask 5.0 Simple Mask 5.0 11/10/20 08:00 98.7 74 20 115/51 (72) 97 11/10/20 08:00 30 11/10/20 08:00 74 11/10/20 07:29 83 14 98 Mechanical Ventilator 35 91 24 98 30 11/10/20 07:00 84 24 122/61 (81) 98 11/10/20 06:30 81 19 133/68 (89) 98 11/10/20 06:00 78 22 141/85 (103) 98 11/10/20 05:31 85 22 98 30 11/10/20 05:30 81 23 124/51 (75) 99 11/10/20 05:00 88 28 129/56 (80) 98 11/10/20 04:00 80 11/10/20 04:00 50 11/10/20 04:00 90 27 125/91 (102) 96 11/10/20 04:00 Simple Mask 5.0 Simple Mask 5.0 11/10/20 03:30 81 22 108/44 (65) 96 11/10/20 03:26 92 24 97 30 11/10/20 03:00 90 24 157/45 (82) 97 11/10/20 02:30 75 21 109/43 (65) 96 11/10/20 02:00 84 22 114/56 (75) 96 11/10/20 01:45 73 20 98 30 11/10/20 01:30 88 24 129/95 (106) 97 11/10/20 01:00 80 21 110/54 (72) 97 11/10/20 00:30 93 22 150/80 (103) 99 11/10/20 00:00 Simple Mask 5.0 Simple Mask 5.0 11/10/20 00:00 50 11/10/20 00:00 80 24 112/58 (76) 99 11/10/20 00:00 84 11/09/20 23:30 90 23 158/88 (111) 98 11/09/20 23:02 81 22 98 Mechanical Ventilator 35 83 24 98 35 11/09/20 23:00 95 29 139/57 (84) 100 11/09/20 22:00 84 24 107/32 (57) 100 11/09/20 21:30 82 21 122/84 (97) 100 11/09/20 21:02 87 23 99 40 11/09/20 21:00 84 24 120/43 (68) 100 11/09/20 20:30 86 23 107/57 (74) 100 11/09/20 20:00 Simple Mask 5.0 Simple Mask 5.0 11/09/20 20:00 50 11/09/20 20:00 85 11/09/20 20:00 82 26 119/46 (70) 100 11/09/20 19:30 85 24 113/73 (86) 99 11/09/20 19:03 83 24 100 40 11/09/20 19:00 85 23 114/45 (68) 100 11/09/20 18:00 88 24 117/45 (69) 100 11/09/20 17:18 97 25 100 45 11/09/20 17:00 85 22 104/49 (67) 100 11/09/20 16:00 101 11/09/20 16:00 98.7 97 26 112/39 (63) 100 11/09/20 16:00 50 11/09/20 16:00 Simple Mask 5.0 Simple Mask 5.0 11/09/20 15:44 83 28 100 Bi-Pap 45 80 29 99 11/09/20 15:44 80 36 99 45 11/09/20 15:00 97 32 112/39 (63) 100 11/09/20 14:00 97 27 104/53 (70) 98 11/09/20 13:01 98 36 99 45 11/09/20 13:00 100 25 109/74 (86) 99 Intake and Output 11/09/20 11/10/20 19:00 07:00 Intake Total 400 ml Output Total 1060 ml 700 ml Balance -660 ml -700 ml Free Water 100 ml Tube Feeding 240 ml Other 60 ml Output Urine Total 1050 ml 700 ml Stool Total 10 ml # Bowel Movements 50 Laboratory Tests Test 11/09/20 16:09 11/10/20 05:43 11/10/20 08:32 POC Whole Blood Glucose 111 MG/DL (74-106) H White Blood Count 5.6 K/UL (4.8-10.8) Red Blood Count 2.85 M/UL (4.20-5.40) L Hemoglobin 8.3 G/DL (12.0-16.0) L Hematocrit 27.6 % (37.0-47.0) L Mean Corpuscular Volume 97 FL (80-99) Mean Corpuscular Hemoglobin 29.2 PG (27.0-31.0) Mean Corpuscular Hemoglobin Concent 30.1 G/DL (32.0-36.0) L Red Cell Distribution Width 18.7 % (11.6-14.8) H Platelet Count 200 K/UL (150-450) Mean Platelet Volume 7.7 FL (6.5-10.1) Neutrophils (%) (Auto) 83.3 % (45.0-75.0) H Lymphocytes (%) (Auto) 10.5 % (20.0-45.0) L Monocytes (%) (Auto) 4.5 % (1.0-10.0) Eosinophils (%) (Auto) 1.5 % (0.0-3.0) Basophils (%) (Auto) 0.2 % (0.0-2.0) Sodium Level 153 MMOL/L (136-145) H Potassium Level 4.0 MMOL/L (3.5-5.1) Chloride Level 111 MMOL/L (98-107) H Carbon Dioxide Level 39 MMOL/L (21-32) H Anion Gap 3 mmol/L (5-15) L Blood Urea Nitrogen 51 mg/dL (7-18) H Creatinine 1.3 MG/DL (0.55-1.30) Estimat Glomerular Filtration Rate 39.1 mL/min (>60) Glucose Level 107 MG/DL (74-106) H Calcium Level 8.9 MG/DL (8.5-10.1) Phosphorus Level 3.1 MG/DL (2.5-4.9) Magnesium Level 2.2 MG/DL (1.8-2.4) Total Bilirubin 0.8 MG/DL (0.2-1.0) Aspartate Amino Transf (AST/SGOT) 16 U/L (15-37) Alanine Aminotransferase (ALT/SGPT) 15 U/L (12-78) Alkaline Phosphatase 72 U/L (46-116) Total Protein 5.6 G/DL (6.4-8.2) L Albumin 2.0 G/DL (3.4-5.0) L Globulin 3.6 g/dL Albumin/Globulin Ratio 0.6 (1.0-2.7) L Arterial Blood pH 7.412 (7.350-7.450) Arterial Blood Partial Pressure CO2 59.5 mmHg (35.0-45.0) *H Arterial Blood Partial Pressure O2 84.8 mmHg (75.0-100.0) Arterial Blood HCO3 37.0 mmol/L (22.0-26.0) H Arterial Blood Oxygen Saturation 95.6 % (95-100) Arterial Blood Base Excess 10.8 (-2-2) *H Gallo Test Positive Objective HEAD AND NECK: No JVD. LUNGS: Decreased breath sounds. CARDIOVASCULAR: Irregular S1 and S2 with no gallop. ABDOMEN: Soft.S/P PEG EXTREMITIES: No pitting edema. Terry Reyes MD Nov 10, 2020 12:44
--- NOTE | 2020-11-10 13:00 | NUR ---
NURSE NOTES: Pt stable,tolerating nasal cannula at 2 L,no resp distress presented O2 sat 92%, pt sleeping most of the time.
--- NOTE | 2020-11-10 13:17 | Hematology/Onc Progress Note ---
Assessment/Plan Assessment/Plan Assessment and recs # Anemia r/o gi bleed --> anemia panel has been ordered-->reviewed --> hgb 8.1->9.3->9.7-->9.5-->10.5-->10.2-->9.1->8.6-->7.8-->8.1-->9.2-->8.7-->9.1 --> no hemolysis is noted --> transfuse on prn basis --> 1 unit prbc 10/30 # Thrombocytopenia likely due to reactive process --> plt 138-->149-->176-->162 --> imaging prn --> smear has been reviewed --> viral w/u neg # Hypercoag disorder with Atrial fibrillation --> consider anticoag as per cards --> if bleeding, consider hold anticoag # Elevated trop --> per cards # Hyperkalemia --> per renal # Acute kidney injury --> per renal # Resp failure on bipap # Recently COVID-19 positive # Dvt ppx scds --> lovenox sq Appreciate consultation and rosio rn Subjective HEENT: Denies: no symptoms, eye pain, blurred vision, tearing, double vision, ear pain, ear discharge, nose pain, nose congestion, throat pain, throat swelling, mouth pain, mouth swelling, other Cardiovascular: Denies: no symptoms, chest pain, edema, irregular heart rate, lightheadedness, palpitations, syncope, other Respiratory: Denies: no symptoms, cough, shortness of breath, SOB with excertion, SOB at rest, sputum, wheezing, other Gastrointestinal/Abdominal: Denies: no symptoms, abdomen distended, abdominal pain, black stools, tarry stools, blood in stool, constipated, diarrhea, difficulty swallowing, nausea, poor appetite, poor fluid intake, rectal bleeding, vomiting, other Genitourinary: Denies: no symptoms, burning, discharge, frequency, flank pain, hematuria, incontinence, pain, urgency, other Neurologic/Psychiatric: Denies: no symptoms, anxiety, depressed, emotional problems, headache, numbness, paresthesia, pre-existing deficit, seizure, tingling, tremors, weakness, other Endocrine: Denies: no symptoms, excessive sweating, flushing, intolerance to cold, intolerance to heat, increased hunger, increased thirst, increased urine, unexplained weight gain, unexplained weight loss, other Hematologic/Lymphatic: Denies: no symptoms, anemia, easy bleeding, easy bruising, adenopathy, other Allergies: Coded Allergies: No Known Allergies (Unverified , 10/17/20) Subjective 10/19 cbc is pending, did get blood transfusion last night, pending results 10/20 meds noted, no bleeding, labs reviewed, rosio rn, no new changes 10/21 on 4l nc, has been refusing labs, meds noted, no bleeding 10/22 nc, refusing meds labs reviewed, rosio rn 10/23 is potentially for egd this am, no bleeding, cbc is noted 10/25 meds noted, no bleeidng, is on nc, no night sweats, bp bolus pending 10/26 bed bath done, meds noted, no bleeding, cbc reviewed from am 10/27 lethargic, on bipap, levophed, meds reviewed 10/28 icu, lethargic, remains on bipap, pressors 10/29 icu, lethargic, meds noted, on bipap, labs noted 10/30 icu, bipap, to get 1 unit prbc, meds reviewed, labs noted 10/31 icu, on vent, no bipap 11/01: remains in icu, no bleeding reported 11/02 icu, lethargic, on vent, with gt feeds on hold, labs noted 11/03 icu, intubated on vent, lethargic, labs reviewed, meds noted 11/04 icu, remains intuabted is on vent, lethargic, labs reviewed 11/05 icu, nv, on vent, lethargic, labs noted 11/06 icu, extubated, is on simple mask, meds noted 11/08 in icu, on simple mask and bipap prn, labs reviewed 11/09 icu, labs reviewed, on face mask, meds noted 11/10 icu, asleep, bipap, with rothman, meds noted, rosio eugene Objective Objective Current Medications Medications (Trade) Dose Ordered Sig/Yolanda Route PRN Reason Start Time Stop Time Status Last Admin Dose Admin Acetaminophen (Tylenol) 650 mg Q4H PRN ORAL Pain Scale (6-10) 10/17/20 19:15 11/16/20 19:14 Acetaminophen (Tylenol) 650 mg Q6H PRN GT Mild Pain (Pain Scale 1-3) 11/04/20 10:45 12/04/20 10:44 11/04/20 18:20 Acetaminophen (Tylenol) 650 mg Q6H PRN GT Temp >100.5 11/04/20 10:45 12/04/20 10:44 Acetazolamide (Diamox) 250 mg Q6HR GT 11/09/20 12:00 11/11/20 06:01 11/10/20 11:35 Apixaban (Eliquis) 2.5 mg BID ORAL 10/24/20 18:00 01/22/21 17:59 11/10/20 09:09 Chlorhexidine Gluconate (Eve-Hex 2%) 1 applic DAILY@2000 TOPIC 10/22/20 20:00 01/20/21 19:59 11/09/20 20:33 Dextrose 1,000 ml @ 100 mls/hr Q10H IV 11/10/20 10:15 11/10/20 20:14 11/10/20 10:55 Digoxin (Lanoxin) 0.125 mg DAILY GT 10/30/20 09:00 01/28/21 08:59 11/10/20 09:09 Ergocalciferol (Drisdol) 50,000 intlu QWEEK ORAL 11/10/20 12:00 12/10/20 11:59 11/10/20 11:45 Haloperidol Lactate 5 mg/ Dextrose 56 ml @ 224 mls/hr Q6H PRN IVPB Agitation 11/04/20 20:30 12/19/20 20:29 11/07/20 21:16 Levalbuterol HCl (Xopenex) 1.25 mg Q8HRT HHN 11/08/20 09:30 11/13/20 12:59 11/10/20 07:20 Levofloxacin (Levaquin) 750 mg EVERY OTHER DAY GT 11/08/20 09:00 11/15/20 08:59 11/10/20 09:09 Levothyroxine Sodium (Synthroid) 50 mcg DAILY@0630 ORAL 10/19/20 06:30 11/18/20 06:29 11/10/20 06:49 Ondansetron HCl (Zofran) 4 mg Q6H PRN IVP Nausea & Vomiting 10/17/20 21:15 11/16/20 21:14 Pantoprazole (Protonix) 40 mg Q12HR IVP 11/02/20 21:00 11/25/20 20:59 11/10/20 09:09 Last 24 Hour Vital Signs Date Time Temp Pulse Resp B/P (MAP) Pulse Ox O2 Delivery O2 Flow Rate FiO2 11/10/20 12:00 5.0 11/10/20 12:00 Simple Mask 5.0 Simple Mask 5.0 11/10/20 12:00 85 11/10/20 12:00 97.8 80 23 117/57 (77) 92 11/10/20 11:12 100 Nasal Cannula 2.0 28 11/10/20 11:00 74 23 140/72 (94) 98 11/10/20 10:00 92 23 138/44 (75) 98 11/10/20 09:09 74 11/10/20 09:00 93 26 138/44 (75) 98 11/10/20 08:00 Simple Mask 5.0 Simple Mask 5.0 11/10/20 08:00 98.7 74 20 115/51 (72) 97 11/10/20 08:00 30 11/10/20 08:00 74 11/10/20 07:29 83 14 98 Mechanical Ventilator 35 91 24 98 30 11/10/20 07:00 84 24 122/61 (81) 98 11/10/20 06:30 81 19 133/68 (89) 98 11/10/20 06:00 78 22 141/85 (103) 98 11/10/20 05:31 85 22 98 30 11/10/20 05:30 81 23 124/51 (75) 99 11/10/20 05:00 88 28 129/56 (80) 98 11/10/20 04:00 80 11/10/20 04:00 50 11/10/20 04:00 90 27 125/91 (102) 96 11/10/20 04:00 Simple Mask 5.0 Simple Mask 5.0 11/10/20 03:30 81 22 108/44 (65) 96 11/10/20 03:26 92 24 97 30 11/10/20 03:00 90 24 157/45 (82) 97 11/10/20 02:30 75 21 109/43 (65) 96 11/10/20 02:00 84 22 114/56 (75) 96 11/10/20 01:45 73 20 98 30 11/10/20 01:30 88 24 129/95 (106) 97 11/10/20 01:00 80 21 110/54 (72) 97 11/10/20 00:30 93 22 150/80 (103) 99 11/10/20 00:00 Simple Mask 5.0 Simple Mask 5.0 11/10/20 00:00 50 11/10/20 00:00 80 24 112/58 (76) 99 11/10/20 00:00 84 11/09/20 23:30 90 23 158/88 (111) 98 11/09/20 23:02 81 22 98 Mechanical Ventilator 35 83 24 98 35 11/09/20 23:00 95 29 139/57 (84) 100 11/09/20 22:00 84 24 107/32 (57) 100 11/09/20 21:30 82 21 122/84 (97) 100 11/09/20 21:02 87 23 99 40 11/09/20 21:00 84 24 120/43 (68) 100 11/09/20 20:30 86 23 107/57 (74) 100 11/09/20 20:00 Simple Mask 5.0 Simple Mask 5.0 11/09/20 20:00 50 11/09/20 20:00 85 11/09/20 20:00 82 26 119/46 (70) 100 11/09/20 19:30 85 24 113/73 (86) 99 11/09/20 19:03 83 24 100 40 11/09/20 19:00 85 23 114/45 (68) 100 11/09/20 18:00 88 24 117/45 (69) 100 11/09/20 17:18 97 25 100 45 11/09/20 17:00 85 22 104/49 (67) 100 11/09/20 16:00 101 11/09/20 16:00 98.7 97 26 112/39 (63) 100 11/09/20 16:00 50 11/09/20 16:00 Simple Mask 5.0 Simple Mask 5.0 11/09/20 15:44 83 28 100 Bi-Pap 45 80 29 99 11/09/20 15:44 80 36 99 45 11/09/20 15:00 97 32 112/39 (63) 100 11/09/20 14:00 97 27 104/53 (70) 98 11/09/20 13:01 98 36 99 45 11/09/20 13:00 100 25 109/74 (86) 99 11/09/20 12:00 97.7 97 28 99/44 (62) 98 11/09/20 12:00 Simple Mask 5.0 Simple Mask 5.0 11/09/20 12:00 50 11/09/20 12:00 87 11/09/20 11:00 102 29 91/38 (55) 99 11/09/20 10:35 95 36 98 50 11/09/20 10:30 50 11/09/20 10:00 114 30 112/38 (62) 92 11/09/20 09:00 107 35 102/41 (61) 91 11/09/20 08:40 90 11/09/20 08:13 90 11/09/20 08:09 98.7 89 28 118/43 (68) 96 11/09/20 08:08 Simple Mask 5.0 Simple Mask 5.0 11/09/20 08:07 10.0 40 11/09/20 07:58 100 26 97 Cool Aerosol 10.0 40 110 22 90 11/09/20 07:11 102 31 105/41 (62) 94 11/09/20 06:30 102 29 115/44 (67) 94 11/09/20 06:00 99 29 108/41 (63) 94 11/09/20 05:00 96 29 92/39 (56) 93 11/09/20 04:00 10.0 40 11/09/20 04:00 Simple Mask 5.0 Simple Mask 5.0 11/09/20 04:00 104 32 107/43 (64) 94 11/09/20 03:52 104 11/09/20 03:00 103 29 98/39 (58) 93 11/09/20 02:00 103 31 109/42 (64) 95 11/09/20 01:00 104 31 102/49 (66) 94 11/09/20 00:00 107 32 109/40 (63) 95 11/09/20 00:00 Simple Mask 5.0 Simple Mask 5.0 11/09/20 00:00 100 11/08/20 23:20 99 18 100 Cool Aerosol 10.0 40 117 18 95 11/08/20 23:00 101 29 112/54 (73) 90 11/08/20 22:00 105 35 123/45 (71) 96 11/08/20 22:00 105 35 123/45 (71) 96 11/08/20 21:00 104 29 117/46 (69) 95 11/08/20 21:00 104 29 117/46 (69) 95 11/08/20 20:00 94 11/08/20 20:00 99 31 110/41 (64) 92 11/08/20 20:00 10.0 40 11/08/20 20:00 Simple Mask 5.0 Simple Mask 5.0 11/08/20 20:00 98.5 99 31 110/41 (64) 92 11/08/20 19:00 98 26 105/42 (63) 96 11/08/20 19:00 98 26 105/42 (63) 96 11/08/20 18:00 94 26 93/28 (49) 96 11/08/20 17:00 93 24 98/55 (69) 100 11/08/20 16:59 85 20 100 Cool Aerosol 10.0 40 78 19 100 11/08/20 16:00 98.8 97 25 98/39 (58) 100 11/08/20 16:00 Simple Mask 5.0 Simple Mask 5.0 11/08/20 16:00 87 11/08/20 16:00 10.0 40 11/08/20 15:00 94 27 90/34 (52) 11/08/20 14:00 100 28 106/46 (66) 100 Intake and Output 11/09/20 11/10/20 19:00 07:00 Intake Total 400 ml Output Total 1060 ml 700 ml Balance -660 ml -700 ml Free Water 100 ml Tube Feeding 240 ml Other 60 ml Output Urine Total 1050 ml 700 ml Stool Total 10 ml # Bowel Movements 50 Labs Test 11/07/20 17:37 11/08/20 05:09 11/08/20 08:06 11/08/20 11:42 POC Whole Blood Glucose 123 MG/DL (74-106) 155 MG/DL (74-106) White Blood Count 9.6 K/UL (4.8-10.8) Red Blood Count 3.47 M/UL (4.20-5.40) Hemoglobin 10.1 G/DL (12.0-16.0) Hematocrit 32.9 % (37.0-47.0) Mean Corpuscular Volume 95 FL (80-99) Mean Corpuscular Hemoglobin 29.2 PG (27.0-31.0) Mean Corpuscular Hemoglobin Concent 30.8 G/DL (32.0-36.0) Red Cell Distribution Width 19.0 % (11.6-14.8) Platelet Count 255 K/UL (150-450) Mean Platelet Volume 8.1 FL (6.5-10.1) Neutrophils (%) (Auto) % (45.0-75.0) Lymphocytes (%) (Auto) % (20.0-45.0) Monocytes (%) (Auto) % (1.0-10.0) Eosinophils (%) (Auto) % (0.0-3.0) Basophils (%) (Auto) % (0.0-2.0) Sodium Level 148 MMOL/L (136-145) Potassium Level 4.9 MMOL/L (3.5-5.1) Chloride Level 107 MMOL/L (98-107) Carbon Dioxide Level 34 MMOL/L (21-32) Anion Gap 7 mmol/L (5-15) Blood Urea Nitrogen 46 mg/dL (7-18) Creatinine 1.6 MG/DL (0.55-1.30) Estimat Glomerular Filtration Rate 30.8 mL/min (>60) Glucose Level 171 MG/DL (74-106) Calcium Level 8.9 MG/DL (8.5-10.1) Phosphorus Level 2.8 MG/DL (2.5-4.9) Magnesium Level 2.5 MG/DL (1.8-2.4) Arterial Blood pH 7.402 (7.350-7.450) Arterial Blood Partial Pressure CO2 55.4 mmHg (35.0-45.0) Arterial Blood Partial Pressure O2 102.3 mmHg (75.0-100.0) Arterial Blood HCO3 33.7 mmol/L (22.0-26.0) Arterial Blood Oxygen Saturation 97.2 % (95-100) Arterial Blood Base Excess 7.6 (-2-2) Gallo Test Positive Test 11/08/20 16:53 11/09/20 05:00 11/09/20 09:58 11/09/20 12:00 POC Whole Blood Glucose 136 MG/DL (74-106) 131 MG/DL (74-106) White Blood Count 9.1 K/UL (4.8-10.8) Red Blood Count 3.09 M/UL (4.20-5.40) Hemoglobin 9.1 G/DL (12.0-16.0) Hematocrit 29.6 % (37.0-47.0) Mean Corpuscular Volume 96 FL (80-99) Mean Corpuscular Hemoglobin 29.4 PG (27.0-31.0) Mean Corpuscular Hemoglobin Concent 30.7 G/DL (32.0-36.0) Red Cell Distribution Width 18.7 % (11.6-14.8) Platelet Count 250 K/UL (150-450) Mean Platelet Volume 7.5 FL (6.5-10.1) Neutrophils (%) (Auto) % (45.0-75.0) Lymphocytes (%) (Auto) % (20.0-45.0) Monocytes (%) (Auto) % (1.0-10.0) Eosinophils (%) (Auto) % (0.0-3.0) Basophils (%) (Auto) % (0.0-2.0) Differential Total Cells Counted 100 Neutrophils % (Manual) 91 % (45-75) Lymphocytes % (Manual) 5 % (20-45) Monocytes % (Manual) 1 % (1-10) Eosinophils % (Manual) 0 % (0-3) Basophils % (Manual) 0 % (0-2) Myelocytes % 1 % (0-0) Promyelocytes % 1 % (0-0) Band Neutrophils 1 % (0-8) Platelet Estimate Adequate Platelet Morphology Normal Ovalocytes Occasional Sodium Level 150 MMOL/L (136-145) Potassium Level 5.0 MMOL/L (3.5-5.1) Chloride Level 109 MMOL/L (98-107) Carbon Dioxide Level 40 MMOL/L (21-32) Anion Gap 1 mmol/L (5-15) Blood Urea Nitrogen 48 mg/dL (7-18) Creatinine 1.5 MG/DL (0.55-1.30) Estimat Glomerular Filtration Rate 33.2 mL/min (>60) Glucose Level 161 MG/DL (74-106) Calcium Level 8.6 MG/DL (8.5-10.1) Phosphorus Level 2.7 MG/DL (2.5-4.9) Magnesium Level 2.3 MG/DL (1.8-2.4) Total Bilirubin 0.5 MG/DL (0.2-1.0) Aspartate Amino Transf (AST/SGOT) 13 U/L (15-37) Alanine Aminotransferase (ALT/SGPT) 16 U/L (12-78) Alkaline Phosphatase 89 U/L (46-116) Total Protein 6.1 G/DL (6.4-8.2) Albumin 2.2 G/DL (3.4-5.0) Globulin 3.9 g/dL Albumin/Globulin Ratio 0.6 (1.0-2.7) Arterial Blood pH 7.331 (7.350-7.450) Arterial Blood Partial Pressure CO2 75.7 mmHg (35.0-45.0) Arterial Blood Partial Pressure O2 58.6 mmHg (75.0-100.0) Arterial Blood HCO3 39.1 mmol/L (22.0-26.0) Arterial Blood Oxygen Saturation 87.9 % (95-100) Arterial Blood Base Excess 11.0 (-2-2) Gallo Test Positive Test 11/09/20 16:09 11/10/20 05:43 11/10/20 08:32 POC Whole Blood Glucose 111 MG/DL (74-106) White Blood Count 5.6 K/UL (4.8-10.8) Red Blood Count 2.85 M/UL (4.20-5.40) Hemoglobin 8.3 G/DL (12.0-16.0) Hematocrit 27.6 % (37.0-47.0) Mean Corpuscular Volume 97 FL (80-99) Mean Corpuscular Hemoglobin 29.2 PG (27.0-31.0) Mean Corpuscular Hemoglobin Concent 30.1 G/DL (32.0-36.0) Red Cell Distribution Width 18.7 % (11.6-14.8) Platelet Count 200 K/UL (150-450) Mean Platelet Volume 7.7 FL (6.5-10.1) Neutrophils (%) (Auto) 83.3 % (45.0-75.0) Lymphocytes (%) (Auto) 10.5 % (20.0-45.0) Monocytes (%) (Auto) 4.5 % (1.0-10.0) Eosinophils (%) (Auto) 1.5 % (0.0-3.0) Basophils (%) (Auto) 0.2 % (0.0-2.0) Sodium Level 153 MMOL/L (136-145) Potassium Level 4.0 MMOL/L (3.5-5.1) Chloride Level 111 MMOL/L (98-107) Carbon Dioxide Level 39 MMOL/L (21-32) Anion Gap 3 mmol/L (5-15) Blood Urea Nitrogen 51 mg/dL (7-18) Creatinine 1.3 MG/DL (0.55-1.30) Estimat Glomerular Filtration Rate 39.1 mL/min (>60) Glucose Level 107 MG/DL (74-106) Calcium Level 8.9 MG/DL (8.5-10.1) Phosphorus Level 3.1 MG/DL (2.5-4.9) Magnesium Level 2.2 MG/DL (1.8-2.4) Total Bilirubin 0.8 MG/DL (0.2-1.0) Aspartate Amino Transf (AST/SGOT) 16 U/L (15-37) Alanine Aminotransferase (ALT/SGPT) 15 U/L (12-78) Alkaline Phosphatase 72 U/L (46-116) Total Protein 5.6 G/DL (6.4-8.2) Albumin 2.0 G/DL (3.4-5.0) Globulin 3.6 g/dL Albumin/Globulin Ratio 0.6 (1.0-2.7) Arterial Blood pH 7.412 (7.350-7.450) Arterial Blood Partial Pressure CO2 59.5 mmHg (35.0-45.0) Arterial Blood Partial Pressure O2 84.8 mmHg (75.0-100.0) Arterial Blood HCO3 37.0 mmol/L (22.0-26.0) Arterial Blood Oxygen Saturation 95.6 % (95-100) Arterial Blood Base Excess 10.8 (-2-2) Gallo Test Positive Height (Feet): 5 Height (Inches): 0.00 Weight (Pounds): 145 Objective Physical Exam General: Awake and alert, no acute distress HEENT: NC/AT. EOMI. Cardiovascular: Irregularly irregular rhythm. Resp: Normal work of breathing. ++simple face mask Abdomen: Abdomen is soft, nondistended. Nontender Skin: Intact. No abrasions, laceration or rash over the exposed skin MSK: Normal tone and bulk. Moving all extremities. Neuro: Awake and alert. Mentating appropriately. Hawk Ma MD Nov 10, 2020 13:17
--- NOTE | 2020-11-10 17:00 | NUR ---
NURSE NOTES: bed bath given,Triad cream applied to diomedes area,opti foam drsg applied to small skin tear to in between coccyx area, Green cath leaking pad soaked with urine,kept dry and clean,pulled up and turned to sides.
--- NOTE | 2020-11-10 19:05 | NUR ---
NURSE HAND-OFF REPORT: Latest Vital Signs: Temperature 97.7 , Pulse 77 , B/P 104 /54 , Respiratory Rate 26 , O2 SAT 96 , Simple Mask, O2 Flow Rate 5.0 . Vital Sign Comment: stable EKG Rhythm: Atrial Fibrillation Rhythm change?: N MD Notified?: - MD Response: Latest Elizabeth Fall Score: 70 Fall Risk: High Risk Safety Measures: Call light Within Reach, Bed Alarm Zone 1, Side Rails Side Rails x3, Bed position Low and Locked. Fall Precautions: Yellow Socks Patient Fall Education Report given to yossi Bardales RN..
[2020-11-10] MEDS: Dyna-Hex 2% Top Sol 2oz TOPIC SCH (20:46)
--- NOTE | 2020-11-10 21:45 | General Progress Note ---
Subjective ROS Limited/Unobtainable: Yes Allergies: Coded Allergies: No Known Allergies (Unverified , 10/17/20) Objective Last 24 Hour Vital Signs Date Time Temp Pulse Resp B/P (MAP) Pulse Ox O2 Delivery O2 Flow Rate FiO2 11/10/20 18:00 77 26 104/54 (71) 96 11/10/20 17:00 98 Nasal Cannula 5.0 40 11/10/20 17:00 91 31 97/43 (61) 99 11/10/20 16:00 97.7 97 27 115/49 (71) 97 11/10/20 16:00 5.0 11/10/20 16:00 97 27 115/49 (71) 97 11/10/20 16:00 Nasal Cannula 5.0 Nasal Cannula 5.0 11/10/20 15:45 85 22 97 Nasal Cannula 5.0 40 11/10/20 15:24 74 11/10/20 15:10 86 20 100 Nasal Cannula 5.0 40 94 22 97 11/10/20 15:00 83 28 124/51 (75) 97 11/10/20 14:00 81 26 137/65 (89) 96 11/10/20 13:00 82 17 115/38 (63) 96 11/10/20 12:01 Nasal Cannula 5.0 Nasal Cannula 5.0 11/10/20 12:00 5.0 11/10/20 12:00 85 11/10/20 12:00 97.8 80 23 117/57 (77) 92 11/10/20 11:12 100 Nasal Cannula 2.0 28 11/10/20 11:00 74 23 140/72 (94) 98 11/10/20 10:00 92 23 138/44 (75) 98 11/10/20 09:09 74 11/10/20 09:00 93 26 138/44 (75) 98 11/10/20 08:01 Bi-pap 50.0 Bi-pap 50.0 11/10/20 08:00 98.7 74 20 115/51 (72) 97 11/10/20 08:00 30 11/10/20 08:00 74 11/10/20 07:29 83 14 98 Mechanical Ventilator 35 91 24 98 30 11/10/20 07:00 84 24 122/61 (81) 98 11/10/20 06:30 81 19 133/68 (89) 98 11/10/20 06:00 78 22 141/85 (103) 98 11/10/20 05:31 85 22 98 30 11/10/20 05:30 81 23 124/51 (75) 99 11/10/20 05:00 88 28 129/56 (80) 98 11/10/20 04:00 80 11/10/20 04:00 50 11/10/20 04:00 90 27 125/91 (102) 96 11/10/20 04:00 Simple Mask 5.0 Simple Mask 5.0 11/10/20 03:30 81 22 108/44 (65) 96 11/10/20 03:26 92 24 97 30 11/10/20 03:00 90 24 157/45 (82) 97 11/10/20 02:30 75 21 109/43 (65) 96 11/10/20 02:00 84 22 114/56 (75) 96 11/10/20 01:45 73 20 98 30 11/10/20 01:30 88 24 129/95 (106) 97 11/10/20 01:00 80 21 110/54 (72) 97 11/10/20 00:30 93 22 150/80 (103) 99 11/10/20 00:00 Simple Mask 5.0 Simple Mask 5.0 11/10/20 00:00 50 11/10/20 00:00 80 24 112/58 (76) 99 11/10/20 00:00 84 11/09/20 23:30 90 23 158/88 (111) 98 11/09/20 23:02 81 22 98 Mechanical Ventilator 35 83 24 98 35 11/09/20 23:00 95 29 139/57 (84) 100 11/09/20 22:00 84 24 107/32 (57) 100 Intake and Output 11/09/20 11/10/20 19:00 07:00 Intake Total 400 ml Output Total 1060 ml 700 ml Balance -660 ml -700 ml Free Water 100 ml Tube Feeding 240 ml Other 60 ml Output Urine Total 1050 ml 700 ml Stool Total 10 ml # Bowel Movements 50 Laboratory Tests 11/10/20 05:43: White Blood Count 5.6, Red Blood Count 2.85L, Hemoglobin 8.3L, Hematocrit 27.6L, Mean Corpuscular Volume 97, Mean Corpuscular Hemoglobin 29.2, Mean Corpuscular Hemoglobin Concent 30.1L, Red Cell Distribution Width 18.7H, Platelet Count 200, Mean Platelet Volume 7.7, Neutrophils (%) (Auto) 83.3H, Lymphocytes (%) (Auto) 10.5L, Monocytes (%) (Auto) 4.5, Eosinophils (%) (Auto) 1.5, Basophils (%) (Auto) 0.2, Sodium Level 153H, Potassium Level 4.0, Chloride Level 111H, Carbon Dioxide Level 39H, Anion Gap 3L, Blood Urea Nitrogen 51H, Creatinine 1.3, Estimat Glomerular Filtration Rate 39.1, Glucose Level 107H, Calcium Level 8.9, Phosphorus Level 3.1, Magnesium Level 2.2, Total Bilirubin 0.8, Aspartate Amino Transf (AST/SGOT) 16, Alanine Aminotransferase (ALT/SGPT) 15, Alkaline Phosphatase 72, Total Protein 5.6L, Albumin 2.0L, Globulin 3.6, Albumin/Globulin Ratio 0.6L 11/10/20 08:32: Arterial Blood pH 7.412, Arterial Blood Partial Pressure CO2 59.5*H, Arterial Blood Partial Pressure O2 84.8, Arterial Blood HCO3 37.0H, Arterial Blood Oxygen Saturation 95.6, Arterial Blood Base Excess 10.8*H, Gallo Test Positive Height (Feet): 5 Height (Inches): 0.00 Weight (Pounds): 145 Assessment/Plan Problem List: (1) Anemia ICD Codes: D64.9 - Anemia, unspecified SNOMED: 730279957 (2) Acute kidney injury ICD Codes: N17.9 - Acute kidney failure, unspecified SNOMED: 27467044, 1341768 (3) Atrial fibrillation ICD Codes: I48.91 - Unspecified atrial fibrillation SNOMED: 00533969 (4) Elevated troponin ICD Codes: R77.8 - Other specified abnormalities of plasma proteins SNOMED: 209443155, 846488157, 300646140 (5) Malnutrition ICD Codes: E46 - Unspecified protein-calorie malnutrition SNOMED: 30817530 (6) Pneumonia due to COVID-19 virus ICD Codes: U07.1 - COVID-19; J12.82 - Pneumonia due to coronavirus disease 2019 SNOMED: [id number] (7) Hypothyroidism ICD Codes: E03.9 - Hypothyroidism, unspecified SNOMED: 53318125 Status: progressing, unchanged Assessment/Plan: s/p intubation afebrile arrythmia azotemia improving malnutrition pna sepsis Neri Dumont MD Nov 10, 2020 21:45
[2020-11-11] VITALS (48 sets, daily range): BP systolic 88–146; BP diastolic 27–66
[2020-11-11 05:15] LABS: HEMATOCRIT 29.7 % (37.0-47.0); HEMOGLOBIN 8.9 G/DL (12.0-16.0); MEAN CORPUSCULAR VOLUME 99 FL (80-99); PLATELET COUNT 234 K/UL (150-450); RED BLOOD COUNT 3.01 M/UL (4.20-5.40); WHITE BLOOD COUNT 6.9 K/UL (4.8-10.8)
[2020-11-11 05:45] LABS: ALANINE AMINOTRANSFERASE 21 U/L (12-78); ALBUMIN 2.1 G/DL (3.4-5.0); ALBUMIN/GLOBULIN RATIO 0.6 (1.0-2.7); ALKALINE PHOSPHATASE 81 U/L (46-116); ANION GAP 2 mmol/L (5-15); ASPARTATE AMINO TRANSFERASE 29 U/L (15-37); BILIRUBIN,TOTAL 0.5 MG/DL (0.2-1.0); BLOOD UREA NITROGEN 52 mg/dL (7-18); CALCIUM 8.4 MG/DL (8.5-10.1); CARBON DIOXIDE 40 MMOL/L (21-32); CHLORIDE 107 MMOL/L (98-107); CREATININE 1.3 MG/DL (0.55-1.30); PHOSPHORUS 3.4 MG/DL (2.5-4.9); POTASSIUM 4.4 MMOL/L (3.5-5.1); SODIUM 149 MMOL/L (136-145)
--- NOTE | 2020-11-11 07:00 | Hematology/Onc Progress Note ---
Assessment/Plan Assessment/Plan Assessment and recs # Anemia r/o gi bleed --> anemia panel has been ordered-->reviewed --> hgb 8.1->9.3->9.7-->9.5-->10.5-->10.2-->9.1->8.6-->7.8-->8.1-->9.2-->8.7-->9.1 --> no hemolysis is noted --> transfuse on prn basis --> 1 unit prbc 10/30 # Thrombocytopenia likely due to reactive process --> plt 138-->149-->176-->162 --> imaging prn --> smear has been reviewed --> viral w/u neg # Hypercoag disorder with Atrial fibrillation --> consider anticoag as per cards --> if bleeding, consider hold anticoag # Elevated trop --> per cards # Hyperkalemia --> per renal # Acute kidney injury --> per renal # Resp failure on bipap # Recently COVID-19 positive # Dvt ppx scds --> lovenox sq Appreciate consultation and rosio rn Subjective HEENT: Denies: no symptoms, eye pain, blurred vision, tearing, double vision, ear pain, ear discharge, nose pain, nose congestion, throat pain, throat swelling, mouth pain, mouth swelling, other Cardiovascular: Denies: no symptoms, chest pain, edema, irregular heart rate, lightheadedness, palpitations, syncope, other Respiratory: Denies: no symptoms, cough, shortness of breath, SOB with excertion, SOB at rest, sputum, wheezing, other Gastrointestinal/Abdominal: Denies: no symptoms, abdomen distended, abdominal pain, black stools, tarry stools, blood in stool, constipated, diarrhea, difficulty swallowing, nausea, poor appetite, poor fluid intake, rectal bleeding, vomiting, other Genitourinary: Denies: no symptoms, burning, discharge, frequency, flank pain, hematuria, incontinence, pain, urgency, other Neurologic/Psychiatric: Denies: no symptoms, anxiety, depressed, emotional problems, headache, numbness, paresthesia, pre-existing deficit, seizure, tingling, tremors, weakness, other Endocrine: Denies: no symptoms, excessive sweating, flushing, intolerance to cold, intolerance to heat, increased hunger, increased thirst, increased urine, unexplained weight gain, unexplained weight loss, other Allergies: Coded Allergies: No Known Allergies (Unverified , 10/17/20) Subjective 10/19 cbc is pending, did get blood transfusion last night, pending results 10/20 meds noted, no bleeding, labs reviewed, rosio rn, no new changes 10/21 on 4l nc, has been refusing labs, meds noted, no bleeding 10/22 nc, refusing meds labs reviewed, rosio rn 10/23 is potentially for egd this am, no bleeding, cbc is noted 10/25 meds noted, no bleeidng, is on nc, no night sweats, bp bolus pending 10/26 bed bath done, meds noted, no bleeding, cbc reviewed from am 10/27 lethargic, on bipap, levophed, meds reviewed 10/28 icu, lethargic, remains on bipap, pressors 10/29 icu, lethargic, meds noted, on bipap, labs noted 10/30 icu, bipap, to get 1 unit prbc, meds reviewed, labs noted 10/31 icu, on vent, no bipap 11/01: remains in icu, no bleeding reported 11/02 icu, lethargic, on vent, with gt feeds on hold, labs noted 11/03 icu, intubated on vent, lethargic, labs reviewed, meds noted 11/04 icu, remains intuabted is on vent, lethargic, labs reviewed 11/05 icu, nv, on vent, lethargic, labs noted 11/06 icu, extubated, is on simple mask, meds noted 11/08 in icu, on simple mask and bipap prn, labs reviewed 11/09 icu, labs reviewed, on face mask, meds noted 11/10 icu, asleep, bipap, with rothman, meds noted, rosio rn 11/11 icu, meds noted, remains bipap, labs reviewed Objective Objective Current Medications Medications (Trade) Dose Ordered Sig/Yolanda Route PRN Reason Start Time Stop Time Status Last Admin Dose Admin Acetaminophen (Tylenol) 650 mg Q4H PRN ORAL Pain Scale (6-10) 10/17/20 19:15 11/16/20 19:14 Acetaminophen (Tylenol) 650 mg Q6H PRN GT Mild Pain (Pain Scale 1-3) 11/04/20 10:45 12/04/20 10:44 11/04/20 18:20 Acetaminophen (Tylenol) 650 mg Q6H PRN GT Temp >100.5 11/04/20 10:45 12/04/20 10:44 Apixaban (Eliquis) 2.5 mg BID ORAL 10/24/20 18:00 01/22/21 17:59 11/10/20 18:01 Chlorhexidine Gluconate (Eve-Hex 2%) 1 applic DAILY@2000 TOPIC 10/22/20 20:00 01/20/21 19:59 11/10/20 20:46 Digoxin (Lanoxin) 0.125 mg DAILY GT 10/30/20 09:00 01/28/21 08:59 11/10/20 09:09 Ergocalciferol (Drisdol) 50,000 intlu QWEEK ORAL 11/10/20 12:00 12/10/20 11:59 11/10/20 11:45 Haloperidol Lactate 5 mg/ Dextrose 56 ml @ 224 mls/hr Q6H PRN IVPB Agitation 11/04/20 20:30 12/19/20 20:29 11/07/20 21:16 Levalbuterol HCl (Xopenex) 1.25 mg Q8HRT HHN 11/08/20 09:30 11/13/20 12:59 11/10/20 22:55 Levofloxacin (Levaquin) 750 mg EVERY OTHER DAY GT 11/08/20 09:00 11/15/20 08:59 11/10/20 09:09 Levothyroxine Sodium (Synthroid) 50 mcg DAILY@0630 ORAL 10/19/20 06:30 11/18/20 06:29 11/11/20 06:55 Ondansetron HCl (Zofran) 4 mg Q6H PRN IVP Nausea & Vomiting 10/17/20 21:15 11/16/20 21:14 Pantoprazole (Protonix) 40 mg Q12HR IVP 11/02/20 21:00 11/25/20 20:59 11/10/20 20:46 Last 24 Hour Vital Signs Date Time Temp Pulse Resp B/P (MAP) Pulse Ox O2 Delivery O2 Flow Rate FiO2 11/11/20 06:30 87 29 106/46 (66) 99 11/11/20 06:00 98.5 102 30 113/57 (75) 99 11/11/20 05:00 98 30 105/46 (65) 100 11/11/20 04:30 92 30 113/42 (65) 11/11/20 04:00 5.0 11/11/20 04:00 93 29 107/52 (70) 88 11/11/20 04:00 Nasal Cannula 5.0 Nasal Cannula 5.0 11/11/20 04:00 89 11/11/20 03:30 102/39 (60) 11/11/20 03:08 88 29 94/31 (52) 93 11/11/20 03:00 93 28 88/43 (58) 97 11/11/20 02:30 86 28 97/37 (57) 97 11/11/20 02:00 88 30 101/40 (60) 97 11/11/20 01:30 87 29 102/35 (57) 97 11/11/20 01:00 90 27 90/27 (48) 100 11/11/20 00:30 84 27 98/32 (54) 97 11/11/20 00:00 5.0 11/11/20 00:00 88 11/11/20 00:00 Nasal Cannula 5.0 Nasal Cannula 5.0 11/11/20 00:00 98.5 88 28 107/40 (62) 100 11/10/20 23:00 81 28 102/39 (60) 99 11/10/20 22:55 94 20 100 Nasal Cannula 5.0 40 91 22 98 11/10/20 22:30 83 27 116/59 (78) 100 11/10/20 22:00 83 28 109/51 (70) 100 11/10/20 21:30 86 26 104/49 (67) 100 11/10/20 21:00 89 25 117/56 (76) 11/10/20 20:30 83 26 108/44 (65) 99 11/10/20 20:00 Nasal Cannula 5.0 Nasal Cannula 5.0 11/10/20 20:00 5.0 11/10/20 20:00 92 29 133/52 (79) 97 11/10/20 20:00 84 11/10/20 19:30 88 28 114/56 (75) 96 11/10/20 19:00 82 24 93/49 (64) 96 11/10/20 18:00 77 26 104/54 (71) 96 11/10/20 17:00 98 Nasal Cannula 5.0 40 11/10/20 17:00 91 31 97/43 (61) 99 11/10/20 16:00 97.7 97 27 115/49 (71) 97 11/10/20 16:00 5.0 11/10/20 16:00 97 27 115/49 (71) 97 11/10/20 16:00 Nasal Cannula 5.0 Nasal Cannula 5.0 11/10/20 15:45 85 22 97 Nasal Cannula 5.0 40 11/10/20 15:24 74 11/10/20 15:10 86 20 100 Nasal Cannula 5.0 40 94 22 97 11/10/20 15:00 83 28 124/51 (75) 97 11/10/20 14:00 81 26 137/65 (89) 96 11/10/20 13:00 82 17 115/38 (63) 96 11/10/20 12:01 Nasal Cannula 5.0 Nasal Cannula 5.0 11/10/20 12:00 5.0 11/10/20 12:00 85 11/10/20 12:00 97.8 80 23 117/57 (77) 92 11/10/20 11:12 100 Nasal Cannula 2.0 28 11/10/20 11:00 74 23 140/72 (94) 98 11/10/20 10:00 92 23 138/44 (75) 98 11/10/20 09:09 74 11/10/20 09:00 93 26 138/44 (75) 98 11/10/20 08:01 Bi-pap 50.0 Bi-pap 50.0 11/10/20 08:00 98.7 74 20 115/51 (72) 97 11/10/20 08:00 30 11/10/20 08:00 74 11/10/20 07:29 83 14 98 Mechanical Ventilator 35 91 24 98 30 11/10/20 07:00 84 24 122/61 (81) 98 11/10/20 06:30 81 19 133/68 (89) 98 11/10/20 06:00 78 22 141/85 (103) 98 11/10/20 05:31 85 22 98 30 11/10/20 05:30 81 23 124/51 (75) 99 11/10/20 05:00 88 28 129/56 (80) 98 11/10/20 04:00 80 11/10/20 04:00 50 11/10/20 04:00 90 27 125/91 (102) 96 11/10/20 04:00 Simple Mask 5.0 Simple Mask 5.0 11/10/20 03:30 81 22 108/44 (65) 96 11/10/20 03:26 92 24 97 30 11/10/20 03:00 90 24 157/45 (82) 97 11/10/20 02:30 75 21 109/43 (65) 96 11/10/20 02:00 84 22 114/56 (75) 96 11/10/20 01:45 73 20 98 30 11/10/20 01:30 88 24 129/95 (106) 97 11/10/20 01:00 80 21 110/54 (72) 97 11/10/20 00:30 93 22 150/80 (103) 99 11/10/20 00:00 Simple Mask 5.0 Simple Mask 5.0 11/10/20 00:00 50 11/10/20 00:00 80 24 112/58 (76) 99 11/10/20 00:00 84 11/09/20 23:30 90 23 158/88 (111) 98 11/09/20 23:02 81 22 98 Mechanical Ventilator 35 83 24 98 35 11/09/20 23:00 95 29 139/57 (84) 100 11/09/20 22:00 84 24 107/32 (57) 100 11/09/20 21:30 82 21 122/84 (97) 100 11/09/20 21:02 87 23 99 40 11/09/20 21:00 84 24 120/43 (68) 100 11/09/20 20:30 86 23 107/57 (74) 100 11/09/20 20:00 Simple Mask 5.0 Simple Mask 5.0 11/09/20 20:00 50 11/09/20 20:00 85 11/09/20 20:00 82 26 119/46 (70) 100 11/09/20 19:30 85 24 113/73 (86) 99 11/09/20 19:03 83 24 100 40 11/09/20 19:00 85 23 114/45 (68) 100 11/09/20 18:00 88 24 117/45 (69) 100 11/09/20 17:18 97 25 100 45 11/09/20 17:00 85 22 104/49 (67) 100 11/09/20 16:01 Bi-pap 50.0 Bi-pap 50.0 11/09/20 16:00 101 11/09/20 16:00 98.7 97 26 112/39 (63) 100 11/09/20 16:00 50 11/09/20 15:44 83 28 100 Bi-Pap 45 80 29 99 11/09/20 15:44 80 36 99 45 11/09/20 15:00 97 32 112/39 (63) 100 11/09/20 14:00 97 27 104/53 (70) 98 11/09/20 13:01 98 36 99 45 11/09/20 13:00 100 25 109/74 (86) 99 11/09/20 12:01 Bi-pap 50.0 Bi-pap 50.0 11/09/20 12:00 97.7 97 28 99/44 (62) 98 11/09/20 12:00 50 11/09/20 12:00 87 11/09/20 11:00 102 29 91/38 (55) 99 11/09/20 10:35 95 36 98 50 11/09/20 10:30 50 11/09/20 10:00 114 30 112/38 (62) 92 11/09/20 09:00 107 35 102/41 (61) 91 11/09/20 08:40 90 11/09/20 08:13 90 11/09/20 08:09 98.7 89 28 118/43 (68) 96 11/09/20 08:08 Simple Mask 5.0 Simple Mask 5.0 11/09/20 08:07 10.0 40 11/09/20 07:58 100 26 97 Cool Aerosol 10.0 40 110 22 90 11/09/20 07:11 102 31 105/41 (62) 94 Intake and Output 11/10/20 11/11/20 19:00 07:00 Intake Total 1440 ml 440 ml Output Total 620 ml 400 ml Balance 820 ml 40 ml Free Water 100 ml IV Total 800 ml Tube Feeding 360 ml 440 ml Other 180 ml Output Urine Total 470 ml 400 ml Stool Total 150 ml Labs Test 11/08/20 08:06 11/08/20 11:42 11/08/20 16:53 11/09/20 05:00 Arterial Blood pH 7.402 (7.350-7.450) Arterial Blood Partial Pressure CO2 55.4 mmHg (35.0-45.0) Arterial Blood Partial Pressure O2 102.3 mmHg (75.0-100.0) Arterial Blood HCO3 33.7 mmol/L (22.0-26.0) Arterial Blood Oxygen Saturation 97.2 % (95-100) Arterial Blood Base Excess 7.6 (-2-2) Gallo Test Positive POC Whole Blood Glucose 155 MG/DL (74-106) 136 MG/DL (74-106) White Blood Count 9.1 K/UL (4.8-10.8) Red Blood Count 3.09 M/UL (4.20-5.40) Hemoglobin 9.1 G/DL (12.0-16.0) Hematocrit 29.6 % (37.0-47.0) Mean Corpuscular Volume 96 FL (80-99) Mean Corpuscular Hemoglobin 29.4 PG (27.0-31.0) Mean Corpuscular Hemoglobin Concent 30.7 G/DL (32.0-36.0) Red Cell Distribution Width 18.7 % (11.6-14.8) Platelet Count 250 K/UL (150-450) Mean Platelet Volume 7.5 FL (6.5-10.1) Neutrophils (%) (Auto) % (45.0-75.0) Lymphocytes (%) (Auto) % (20.0-45.0) Monocytes (%) (Auto) % (1.0-10.0) Eosinophils (%) (Auto) % (0.0-3.0) Basophils (%) (Auto) % (0.0-2.0) Differential Total Cells Counted 100 Neutrophils % (Manual) 91 % (45-75) Lymphocytes % (Manual) 5 % (20-45) Monocytes % (Manual) 1 % (1-10) Eosinophils % (Manual) 0 % (0-3) Basophils % (Manual) 0 % (0-2) Myelocytes % 1 % (0-0) Promyelocytes % 1 % (0-0) Band Neutrophils 1 % (0-8) Platelet Estimate Adequate Platelet Morphology Normal Ovalocytes Occasional Sodium Level 150 MMOL/L (136-145) Potassium Level 5.0 MMOL/L (3.5-5.1) Chloride Level 109 MMOL/L (98-107) Carbon Dioxide Level 40 MMOL/L (21-32) Anion Gap 1 mmol/L (5-15) Blood Urea Nitrogen 48 mg/dL (7-18) Creatinine 1.5 MG/DL (0.55-1.30) Estimat Glomerular Filtration Rate 33.2 mL/min (>60) Glucose Level 161 MG/DL (74-106) Calcium Level 8.6 MG/DL (8.5-10.1) Phosphorus Level 2.7 MG/DL (2.5-4.9) Magnesium Level 2.3 MG/DL (1.8-2.4) Total Bilirubin 0.5 MG/DL (0.2-1.0) Aspartate Amino Transf (AST/SGOT) 13 U/L (15-37) Alanine Aminotransferase (ALT/SGPT) 16 U/L (12-78) Alkaline Phosphatase 89 U/L (46-116) Total Protein 6.1 G/DL (6.4-8.2) Albumin 2.2 G/DL (3.4-5.0) Globulin 3.9 g/dL Albumin/Globulin Ratio 0.6 (1.0-2.7) Test 11/09/20 09:58 11/09/20 12:00 11/09/20 16:09 11/10/20 05:43 Arterial Blood pH 7.331 (7.350-7.450) Arterial Blood Partial Pressure CO2 75.7 mmHg (35.0-45.0) Arterial Blood Partial Pressure O2 58.6 mmHg (75.0-100.0) Arterial Blood HCO3 39.1 mmol/L (22.0-26.0) Arterial Blood Oxygen Saturation 87.9 % (95-100) Arterial Blood Base Excess 11.0 (-2-2) Gallo Test Positive POC Whole Blood Glucose 131 MG/DL (74-106) 111 MG/DL (74-106) White Blood Count 5.6 K/UL (4.8-10.8) Red Blood Count 2.85 M/UL (4.20-5.40) Hemoglobin 8.3 G/DL (12.0-16.0) Hematocrit 27.6 % (37.0-47.0) Mean Corpuscular Volume 97 FL (80-99) Mean Corpuscular Hemoglobin 29.2 PG (27.0-31.0) Mean Corpuscular Hemoglobin Concent 30.1 G/DL (32.0-36.0) Red Cell Distribution Width 18.7 % (11.6-14.8) Platelet Count 200 K/UL (150-450) Mean Platelet Volume 7.7 FL (6.5-10.1) Neutrophils (%) (Auto) 83.3 % (45.0-75.0) Lymphocytes (%) (Auto) 10.5 % (20.0-45.0) Monocytes (%) (Auto) 4.5 % (1.0-10.0) Eosinophils (%) (Auto) 1.5 % (0.0-3.0) Basophils (%) (Auto) 0.2 % (0.0-2.0) Sodium Level 153 MMOL/L (136-145) Potassium Level 4.0 MMOL/L (3.5-5.1) Chloride Level 111 MMOL/L (98-107) Carbon Dioxide Level 39 MMOL/L (21-32) Anion Gap 3 mmol/L (5-15) Blood Urea Nitrogen 51 mg/dL (7-18) Creatinine 1.3 MG/DL (0.55-1.30) Estimat Glomerular Filtration Rate 39.1 mL/min (>60) Glucose Level 107 MG/DL (74-106) Calcium Level 8.9 MG/DL (8.5-10.1) Phosphorus Level 3.1 MG/DL (2.5-4.9) Magnesium Level 2.2 MG/DL (1.8-2.4) Total Bilirubin 0.8 MG/DL (0.2-1.0) Aspartate Amino Transf (AST/SGOT) 16 U/L (15-37) Alanine Aminotransferase (ALT/SGPT) 15 U/L (12-78) Alkaline Phosphatase 72 U/L (46-116) Total Protein 5.6 G/DL (6.4-8.2) Albumin 2.0 G/DL (3.4-5.0) Globulin 3.6 g/dL Albumin/Globulin Ratio 0.6 (1.0-2.7) Test 11/10/20 08:32 11/11/20 03:35 Arterial Blood pH 7.412 (7.350-7.450) Arterial Blood Partial Pressure CO2 59.5 mmHg (35.0-45.0) Arterial Blood Partial Pressure O2 84.8 mmHg (75.0-100.0) Arterial Blood HCO3 37.0 mmol/L (22.0-26.0) Arterial Blood Oxygen Saturation 95.6 % (95-100) Arterial Blood Base Excess 10.8 (-2-2) Gallo Test Positive White Blood Count 6.9 K/UL (4.8-10.8) Red Blood Count 3.01 M/UL (4.20-5.40) Hemoglobin 8.9 G/DL (12.0-16.0) Hematocrit 29.7 % (37.0-47.0) Mean Corpuscular Volume 99 FL (80-99) Mean Corpuscular Hemoglobin 29.4 PG (27.0-31.0) Mean Corpuscular Hemoglobin Concent 29.9 G/DL (32.0-36.0) Red Cell Distribution Width 19.0 % (11.6-14.8) Platelet Count 234 K/UL (150-450) Mean Platelet Volume 8.0 FL (6.5-10.1) Neutrophils (%) (Auto) % (45.0-75.0) Lymphocytes (%) (Auto) % (20.0-45.0) Monocytes (%) (Auto) % (1.0-10.0) Eosinophils (%) (Auto) % (0.0-3.0) Basophils (%) (Auto) % (0.0-2.0) Sodium Level 149 MMOL/L (136-145) Potassium Level 4.4 MMOL/L (3.5-5.1) Chloride Level 107 MMOL/L (98-107) Carbon Dioxide Level 40 MMOL/L (21-32) Anion Gap 2 mmol/L (5-15) Blood Urea Nitrogen 52 mg/dL (7-18) Creatinine 1.3 MG/DL (0.55-1.30) Estimat Glomerular Filtration Rate 39.1 mL/min (>60) Glucose Level 129 MG/DL (74-106) Uric Acid 8.8 MG/DL (2.6-7.2) Calcium Level 8.4 MG/DL (8.5-10.1) Phosphorus Level 3.4 MG/DL (2.5-4.9) Magnesium Level 2.0 MG/DL (1.8-2.4) Total Bilirubin 0.5 MG/DL (0.2-1.0) Aspartate Amino Transf (AST/SGOT) 29 U/L (15-37) Alanine Aminotransferase (ALT/SGPT) 21 U/L (12-78) Alkaline Phosphatase 81 U/L (46-116) C-Reactive Protein, Quantitative 6.8 mg/dL (0.00-0.90) Pro-B-Type Natriuretic Peptide > 38644 pg/mL (0-125) Total Protein 5.8 G/DL (6.4-8.2) Albumin 2.1 G/DL (3.4-5.0) Globulin 3.7 g/dL Albumin/Globulin Ratio 0.6 (1.0-2.7) Height (Feet): 5 Height (Inches): 0.00 Weight (Pounds): 145 Objective Physical Exam General: Awake and alert, no acute distress HEENT: NC/AT. EOMI. Cardiovascular: Irregularly irregular rhythm. Resp: Normal work of breathing. ++simple face mask Abdomen: Abdomen is soft, nondistended. Nontender Skin: Intact. No abrasions, laceration or rash over the exposed skin MSK: Normal tone and bulk. Moving all extremities. Neuro: Awake and alert. Mentating appropriately. Hawk Ma MD Nov 11, 2020 07:00
--- NOTE | 2020-11-11 07:14 | NUR ---
RESPIRATORY NOTE: PT received stable on venturi mask @ 8 Lpm 40% FiO2. No s/s of respiratory distress are noted at this time. Will continue to closely monitor.
[2020-11-11] MEDS: Levalbuterol Inh UD 1.25mg/0.5ml HHN SCH ×3 (08:30→22:16)
[2020-11-11] MEDS: Eliquis 2.5mg tablet ORAL SCH ×2 (08:44→18:29)
--- NOTE | 2020-11-11 09:00 | NUR ---
RESPIRATORY NOTE: ABG drawn at this time. Results given to Fei HILL.
[2020-11-11] MEDS: Digoxin 0.125mg tab GT SCH (09:14)
[2020-11-11] MEDS: Pantoprazole Inj IVP SCH ×2 (09:14→21:03)
--- NOTE | 2020-11-11 09:29 | NUR ---
RD ASSESSMENT & RECOMMENDATIONS SEE CARE ACTIVITY FOR COMPLETE ASSESSMENT DAILY ESTIMATED NEEDS: Needs based on Critical care, pulmonary/ 52.3kg abw 25-30 kcals/kg [id number] total kcals 1.2-2 g protein/kg 63-105 g total protein Fluid per MD NUTRITION DIAGNOSIS: Swallowing difficulty R/T dysphagia, decreased cognitive fxn as evidenced by PROGRAM FACILITATOR recommends pureed moist texture diet w/ poor PO, now s/p PEG placement on 10/23, on GT feeds-> s/p extubation. CURRENT TF:Glucerna 1.5@40 x22 hrs (Pt on Synthroid) ENTERAL NUTRITION RECOMMENDATIONS: Glucerna 1.5 @ goal of 40ml/hr x 22 hrs to provide 880ml, 1320kcal, 66g prot, 640ml free water -> Initiate Glucerna 1.5 @ 10ml/hr x 6hrs -> Advance 10ml q 4-6 hrs as tolerated to goal rate -> HOB over 30 degrees/ H2O flush per MD With elevated potassium maintain current TF of Nepro w/ goal of 40ml/hr x22 hrs to meet est needs. ADDITIONAL RECOMMENDATIONS: * Calibrated bedscale wt * Monitor hemodynamic stability-> NE now held, on venturi mask Rec trophic feeding w/ continued HD instability if HOB >30degrees * Monitor BGs, need for hypoglycemics * Increase water flushes for elev Na and BUN . .
--- NOTE | 2020-11-11 09:30 | NUR ---
Respiratory note: PT was placed on BIPAP with current settings: 16/ RR:12, 35% post ABG result. Pt tolerating BIPAP well. No SOB noted. Small old wound noted on bridge of nose. PT placed on full face mask at at this time. Will continue to closely monitor. Fei HILL aware.
--- NOTE | 2020-11-11 09:32 | Pulmonology Progress Note ---
Subjective ROS Limited/Unobtainable: Yes Interval Events: Intubated 10/31/20; extubated 11/05/20; ABG retaining CO -> will restart BiPAP Constitutional: Reports: no symptoms HEENT: Repors: no symptoms Respiratory: Reports: no symptoms Cardiovascular: Reports: no symptoms Gastrointestinal/Abdominal: Reports: diarrhea Psychiatric: Reports: other Allergies: Coded Allergies: No Known Allergies (Unverified , 10/17/20) All Systems: reviewed and negative except above Objective Last 24 Hour Vital Signs Date Time Temp Pulse Resp B/P (MAP) Pulse Ox O2 Delivery O2 Flow Rate FiO2 11/11/20 09:14 106 11/11/20 08:30 90 20 100 Venturi Mask 8.0 40 77 25 99 11/11/20 07:14 98 Venturi Mask 8.0 40 11/11/20 06:30 87 29 106/46 (66) 99 11/11/20 06:00 98.5 102 30 113/57 (75) 99 11/11/20 05:00 98 30 105/46 (65) 100 11/11/20 04:30 92 30 113/42 (65) 11/11/20 04:00 5.0 11/11/20 04:00 93 29 107/52 (70) 88 11/11/20 04:00 Nasal Cannula 5.0 Nasal Cannula 5.0 11/11/20 04:00 89 11/11/20 03:30 102/39 (60) 11/11/20 03:08 88 29 94/31 (52) 93 11/11/20 03:00 93 28 88/43 (58) 97 11/11/20 02:30 86 28 97/37 (57) 97 11/11/20 02:00 88 30 101/40 (60) 97 11/11/20 01:30 87 29 102/35 (57) 97 11/11/20 01:00 90 27 90/27 (48) 100 11/11/20 00:30 84 27 98/32 (54) 97 11/11/20 00:00 5.0 11/11/20 00:00 88 11/11/20 00:00 Nasal Cannula 5.0 Nasal Cannula 5.0 11/11/20 00:00 98.5 88 28 107/40 (62) 100 11/10/20 23:00 81 28 102/39 (60) 99 11/10/20 22:55 94 20 100 Nasal Cannula 5.0 40 91 22 98 11/10/20 22:30 83 27 116/59 (78) 100 11/10/20 22:00 83 28 109/51 (70) 100 11/10/20 21:30 86 26 104/49 (67) 100 11/10/20 21:00 89 25 117/56 (76) 11/10/20 20:30 83 26 108/44 (65) 99 11/10/20 20:00 Nasal Cannula 5.0 Nasal Cannula 5.0 11/10/20 20:00 5.0 11/10/20 20:00 92 29 133/52 (79) 97 11/10/20 20:00 84 11/10/20 19:30 88 28 114/56 (75) 96 11/10/20 19:00 82 24 93/49 (64) 96 11/10/20 18:00 77 26 104/54 (71) 96 11/10/20 17:00 98 Nasal Cannula 5.0 40 11/10/20 17:00 91 31 97/43 (61) 99 11/10/20 16:00 97.7 97 27 115/49 (71) 97 11/10/20 16:00 5.0 11/10/20 16:00 97 27 115/49 (71) 97 11/10/20 16:00 Nasal Cannula 5.0 Nasal Cannula 5.0 11/10/20 15:45 85 22 97 Nasal Cannula 5.0 40 11/10/20 15:24 74 11/10/20 15:10 86 20 100 Nasal Cannula 5.0 40 94 22 97 11/10/20 15:00 83 28 124/51 (75) 97 11/10/20 14:00 81 26 137/65 (89) 96 11/10/20 13:00 82 17 115/38 (63) 96 11/10/20 12:01 Nasal Cannula 5.0 Nasal Cannula 5.0 11/10/20 12:00 5.0 11/10/20 12:00 85 11/10/20 12:00 97.8 80 23 117/57 (77) 92 11/10/20 11:12 100 Nasal Cannula 2.0 28 11/10/20 11:00 74 23 140/72 (94) 98 11/10/20 10:00 92 23 138/44 (75) 98 Intake and Output 11/10/20 11/11/20 19:00 07:00 Intake Total 1440 ml 440 ml Output Total 620 ml 400 ml Balance 820 ml 40 ml Free Water 100 ml IV Total 800 ml Tube Feeding 360 ml 440 ml Other 180 ml Output Urine Total 470 ml 400 ml Stool Total 150 ml General Appearance: no acute distress HEENT: atraumatic Respiratory: lungs clear Cardiovascular: normal rate, regular rhythm Abdomen: soft, non tender, other - s/p PEG Laboratory Tests 11/11/20 03:35: White Blood Count 6.9, Red Blood Count 3.01L, Hemoglobin 8.9L, Hematocrit 29.7L, Mean Corpuscular Volume 99, Mean Corpuscular Hemoglobin 29.4, Mean Corpuscular Hemoglobin Concent 29.9L, Red Cell Distribution Width 19.0H, Platelet Count 234, Mean Platelet Volume 8.0, Neutrophils (%) (Auto) , Lymphocytes (%) (Auto) , Monocytes (%) (Auto) , Eosinophils (%) (Auto) , Basophils (%) (Auto) , Differential Total Cells Counted 100, Neutrophils % (Manual) 79H, Lymphocytes % (Manual) 3L, Monocytes % (Manual) 6, Eosinophils % (Manual) 0, Basophils % (Manual) 0, Band Neutrophils 12H, Nucleated Red Blood Cells 1, Platelet Estimate Adequate, Platelet Morphology Normal, Polychromasia 1+, Hypochromasia 1+, Anisoc ytosis 1+, Macrocytosis 1+, Sodium Level 149H, Potassium Level 4.4, Chloride Level 107, Carbon Dioxide Level 40H, Anion Gap 2L, Blood Urea Nitrogen 52H, Creatinine 1.3, Estimat Glomerular Filtration Rate 39.1, Glucose Level 129H, Uric Acid 8.8H, Calcium Level 8.4L, Phosphorus Level 3.4, Magnesium Level 2.0, Total Bilirubin 0.5, Aspartate Amino Transf (AST/SGOT) 29, Alanine Aminotransferase (ALT/SGPT) 21, Alkaline Phosphatase 81, C-Reactive Protein, Quantitative 6.8H, Pro-B-Type Natriuretic Peptide > 38798W, Total Protein 5.8L, Albumin 2.1L, Globulin 3.7, Albumin/Globulin Ratio 0.6L 11/11/20 09:00: Arterial Blood pH 7.314L, Arterial Blood Partial Pressure CO2 80.1*H, Arterial Blood Partial Pressure O2 73.5L, Arterial Blood HCO3 39.8H, Arterial Blood Oxygen Saturation 93.3L, Arterial Blood Base Excess 11.4*H, Gallo Test Positive Current Medications Medications (Trade) Dose Ordered Sig/Yolanda Route PRN Reason Start Time Stop Time Status Last Admin Dose Admin Acetaminophen (Tylenol) 650 mg Q4H PRN ORAL Pain Scale (6-10) 10/17/20 19:15 11/16/20 19:14 Acetaminophen (Tylenol) 650 mg Q6H PRN GT Mild Pain (Pain Scale 1-3) 11/04/20 10:45 12/04/20 10:44 11/04/20 18:20 Acetaminophen (Tylenol) 650 mg Q6H PRN GT Temp >100.5 11/04/20 10:45 12/04/20 10:44 Apixaban (Eliquis) 2.5 mg BID ORAL 10/24/20 18:00 01/22/21 17:59 11/10/20 18:01 Chlorhexidine Gluconate (Eve-Hex 2%) 1 applic DAILY@1999 TOPIC 10/22/20 20:00 01/20/21 19:59 11/10/20 20:46 Digoxin (Lanoxin) 0.125 mg DAILY GT 10/30/20 09:00 01/28/21 08:59 11/11/20 09:14 Ergocalciferol (Drisdol) 50,000 intlu QWEEK ORAL 11/10/20 12:00 12/10/20 11:59 11/10/20 11:45 Haloperidol Lactate 5 mg/ Dextrose 56 ml @ 224 mls/hr Q6H PRN IVPB Agitation 11/04/20 20:30 12/19/20 20:29 11/07/20 21:16 Levalbuterol HCl (Xopenex) 1.25 mg Q8HRT HHN 11/08/20 09:30 11/13/20 12:59 11/11/20 08:30 Levofloxacin (Levaquin) 750 mg EVERY OTHER DAY GT 11/08/20 09:00 11/15/20 08:59 11/10/20 09:09 Levothyroxine Sodium (Synthroid) 50 mcg DAILY@0630 ORAL 10/19/20 06:30 11/18/20 06:29 11/11/20 06:55 Ondansetron HCl (Zofran) 4 mg Q6H PRN IVP Nausea & Vomiting 10/17/20 21:15 11/16/20 21:14 Pantoprazole (Protonix) 40 mg Q12HR IVP 11/02/20 21:00 11/25/20 20:59 11/11/20 09:14 Assessment/Plan Assessment/Plan 1. CHF - CXR (11/07) pulmonary vascular congestion and small pleural effusions. 2. CAD/previous non-STEMI. 3. [facility] resident. 4. Bradycardia. 5. Atrial fibrillation. -Started on Eliquis 6. Renal insufficiency. -Nephro following 7. Troponin leak. - Cardio following 8. COVID-19 pneumonia, without fever or leukocytosis - s/p intubated; now extubated 11/06/20 - ABG retaining CO2 on nasal O2 -> will restart BiPAP - Sp Cx (11/03) Gram negative bacillus -> now on meropenem per ID - added Levalbuterol 9. Respiratory failure, s/p vent - now extubated 10. 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 UTI, cheryl 12. Dysphagia -s/p PEG (10/23) 13. Hypotension; improved - s/p NS bolus - pressors as needed 14. L pleural effusion - completed Diamox 250 mg q6hr x8 doses - scheduled for thoracentesis (11/11) The care of this patient was discussed with my supervising physician Time spent for this encounter was approximately 31 minutes Tl Pedro Nov 11, 2020 09:32
--- NOTE | 2020-11-11 09:44 | General Progress Note ---
Subjective ROS Limited/Unobtainable: No Allergies: Coded Allergies: No Known Allergies (Unverified , 10/17/20) Subjective intubated now Objective Last 24 Hour Vital Signs Date Time Temp Pulse Resp B/P (MAP) Pulse Ox O2 Delivery O2 Flow Rate FiO2 11/11/20 09:30 73 30 100 35 11/11/20 09:14 106 11/11/20 08:30 90 20 100 Venturi Mask 8.0 40 77 25 99 11/11/20 07:14 98 Venturi Mask 8.0 40 11/11/20 06:30 87 29 106/46 (66) 99 11/11/20 06:00 98.5 102 30 113/57 (75) 99 11/11/20 05:00 98 30 105/46 (65) 100 11/11/20 04:30 92 30 113/42 (65) 11/11/20 04:00 5.0 11/11/20 04:00 93 29 107/52 (70) 88 11/11/20 04:00 Nasal Cannula 5.0 Nasal Cannula 5.0 11/11/20 04:00 89 11/11/20 03:30 102/39 (60) 11/11/20 03:08 88 29 94/31 (52) 93 11/11/20 03:00 93 28 88/43 (58) 97 11/11/20 02:30 86 28 97/37 (57) 97 11/11/20 02:00 88 30 101/40 (60) 97 11/11/20 01:30 87 29 102/35 (57) 97 11/11/20 01:00 90 27 90/27 (48) 100 11/11/20 00:30 84 27 98/32 (54) 97 11/11/20 00:00 5.0 11/11/20 00:00 88 11/11/20 00:00 Nasal Cannula 5.0 Nasal Cannula 5.0 11/11/20 00:00 98.5 88 28 107/40 (62) 100 11/10/20 23:00 81 28 102/39 (60) 99 11/10/20 22:55 94 20 100 Nasal Cannula 5.0 40 91 22 98 11/10/20 22:30 83 27 116/59 (78) 100 11/10/20 22:00 83 28 109/51 (70) 100 11/10/20 21:30 86 26 104/49 (67) 100 11/10/20 21:00 89 25 117/56 (76) 11/10/20 20:30 83 26 108/44 (65) 99 11/10/20 20:00 Nasal Cannula 5.0 Nasal Cannula 5.0 11/10/20 20:00 5.0 11/10/20 20:00 92 29 133/52 (79) 97 11/10/20 20:00 84 11/10/20 19:30 88 28 114/56 (75) 96 11/10/20 19:00 82 24 93/49 (64) 96 11/10/20 18:00 77 26 104/54 (71) 96 11/10/20 17:00 98 Nasal Cannula 5.0 40 11/10/20 17:00 91 31 97/43 (61) 99 11/10/20 16:00 97.7 97 27 115/49 (71) 97 11/10/20 16:00 5.0 11/10/20 16:00 97 27 115/49 (71) 97 11/10/20 16:00 Nasal Cannula 5.0 Nasal Cannula 5.0 11/10/20 15:45 85 22 97 Nasal Cannula 5.0 40 11/10/20 15:24 74 11/10/20 15:10 86 20 100 Nasal Cannula 5.0 40 94 22 97 11/10/20 15:00 83 28 124/51 (75) 97 11/10/20 14:00 81 26 137/65 (89) 96 11/10/20 13:00 82 17 115/38 (63) 96 11/10/20 12:01 Nasal Cannula 5.0 Nasal Cannula 5.0 11/10/20 12:00 5.0 11/10/20 12:00 85 11/10/20 12:00 97.8 80 23 117/57 (77) 92 11/10/20 11:12 100 Nasal Cannula 2.0 28 11/10/20 11:00 74 23 140/72 (94) 98 11/10/20 10:00 92 23 138/44 (75) 98 Intake and Output 11/10/20 11/11/20 19:00 07:00 Intake Total 1440 ml 440 ml Output Total 620 ml 400 ml Balance 820 ml 40 ml Free Water 100 ml IV Total 800 ml Tube Feeding 360 ml 440 ml Other 180 ml Output Urine Total 470 ml 400 ml Stool Total 150 ml Laboratory Tests 11/11/20 03:35: White Blood Count 6.9, Red Blood Count 3.01L, Hemoglobin 8.9L, Hematocrit 29.7L, Mean Corpuscular Volume 99, Mean Corpuscular Hemoglobin 29.4, Mean Corpuscular Hemoglobin Concent 29.9L, Red Cell Distribution Width 19.0H, Platelet Count 234, Mean Platelet Volume 8.0, Neutrophils (%) (Auto) , Lymphocytes (%) (Auto) , Monocytes (%) (Auto) , Eosinophils (%) (Auto) , Basophils (%) (Auto) , Differential Total Cells Counted 100, Neutrophils % (Manual) 79H, Lymphocytes % (Manual) 3L, Monocytes % (Manual) 6, Eosinophils % (Manual) 0, Basophils % (Manual) 0, Band Neutrophils 12H, Nucleated Red Blood Cells 1, Platelet Estimate Adequate, Platelet Morphology Normal, Polychromasia 1+, Hypochromasia 1+, Anisocytosis 1+, Macrocytosis 1+, Sodium Level 149H, Potassium Level 4.4, Chloride Level 107, Carbon Dioxide Level 40H, Anion Gap 2L, Blood Urea Nitrogen 52H, Creatinine 1.3, Estimat Glomerular Filtration Rate 39.1, Glucose Level 129H , Uric Acid 8.8H, Calcium Level 8.4L, Phosphorus Level 3.4, Magnesium Level 2.0, Total Bilirubin 0.5, Aspartate Amino Transf (AST/SGOT) 29, Alanine Aminotransferase (ALT/SGPT) 21, Alkaline Phosphatase 81, C-Reactive Protein, Quantitative 6.8H, Pro-B-Type Natriuretic Peptide > 62313W, Total Protein 5.8L, Albumin 2.1L, Globulin 3.7, Albumin/Globulin Ratio 0.6L 11/11/20 09:00: Arterial Blood pH 7.314L, Arterial Blood Partial Pressure CO2 80.1*H, Arterial Blood Partial Pressure O2 73.5L, Arterial Blood HCO3 39.8H, Arterial Blood Oxygen Saturation 93.3L, Arterial Blood Base Excess 11.4*H, Gallo Test Positive Height (Feet): 5 Height (Inches): 0.00 Weight (Pounds): 145 General Appearance: no apparent distress EENT: normal ENT inspection Neck: supple Cardiovascular: normal rate Respiratory/Chest: decreased breath sounds Abdomen: normal bowel sounds, non tender, soft Extremities: non-tender Assessment/Plan Problem List: (1) Hypothyroidism ICD Codes: E03.9 - Hypothyroidism, unspecified SNOMED: 92714427 (2) Pneumonia due to COVID-19 virus ICD Codes: U07.1 - COVID-19; J12.82 - Pneumonia due to coronavirus disease 2019 SNOMED: 317823871613503816 (3) Malnutrition ICD Codes: E46 - Unspecified protein-calorie malnutrition SNOMED: 44229342 (4) Decubitus skin ulcer ICD Codes: L89.90 - Pressure ulcer of unspecified site, unspecified stage SNOMED: 928905402 (5) Elevated troponin ICD Codes: R77.8 - Other specified abnormalities of plasma proteins SNOMED: 671638460, 541918860, 456895503 (6) Atrial fibrillation ICD Codes: I48.91 - Unspecified atrial fibrillation SNOMED: 89606280 (7) Anemia ICD Codes: D64.9 - Anemia, unspecified SNOMED: 198793581 Status: progressing, unchanged Assessment/Plan: GTF fu cardiology fu pulm labs for AM monitor for residuals Skyler Tobar MD Nov 11, 2020 09:44
--- NOTE | 2020-11-11 11:44 | Nephrology Progress Note ---
Assessment/Plan Problem List: (1) Acute kidney injury (2) Anemia (3) Hyperkalemia (4) Elevated troponin (5) Pneumonia due to COVID-19 virus (6) Hypothyroidism Assessment Plan November 11: Remains on BiPAP. Labs reviewed. Serum sodium lower. Potassium stable. Continue per consultants. November 10: On BiPAP. ABG reviewed. On Diamox. Serum sodium rising. 1 L D5W given. Continue to monitor renal parameters. Low vitamin D level of 13 addressed. November 09: Patient getting started on BiPAP. Is retaining CO2. Discussed with . We will start Diamox. Continue to monitor renal parameters. November 08: On oxygen mask. Labs reviewed. Patient full code. Continues to be extubated. Continue pulmonary toilet. Monitor renal parameters. Discussed with RN. Serum creatinine 1.6 at its lowest. November 07: Patient remains on nasal cannula. Full code. Labs reviewed. Low magnesium addressed. Discussed with SERGIO Wilkerson. Continue present care. November 06: Patient is now extubated. Labs reviewed. Medication list reviewed. Serum creatinine stable. Continue post extubation care. November 05: Mental status improved. Labs and medication list reviewed. Serum creatinine 2.2. Weaning trial in process. Continue per consultants. November 04: Full code. Intubated. Labs reviewed. Low potassium addressed. Serum creatinine stable 2.3. Continue per consultants. Weaning as possible. November 03: Remains full code. Remains intubated. FiO2 30%. Discussed with RN. Low potassium addressed. Patient remains on Lasix. Continue to monitor renal parameters. Serum creatinine slightly rising. November 02: Patient remains intubated on ventilator. FiO2 30%. Labs reviewed. Low potassium addressed. Medication list reviewed. Patient on Lasix 40 mg every 8 hours. Serum creatinine higher to 2.3. Feeding changed to Nepro. Potassium supplement given. Continue to monitor renal parameters. November 01: Seen in ICU. Now intubated on ventilator. Discussed with RN. Labs results noted. Abnormal electrolytes addressed. Discussed with RN. Continue per consultants. October 31: Patient seen in ICU. Discussed with SERGIO Miller. ABG noted. Patient acidotic. Being transfused. Potassium is being replaced. Due for another ABG and possible intubation if needed. Conferred with pulmonary and cardiology. October 30: Labs reviewed. Potassium elevated. Kayexalate ordered. Continue to monitor hemoglobin hematocrit and renal parameters. Serum creatinine 2.1. Remains on BiPAP. October 29: Seen in ICU. Discussed with RN Rock. Hemoglobin low. Transfuse 1 unit of packed RBCs. Potassium supplements IV given. Midodrine discontinued. Serum creatinine 2.2 stable. Patient remains on BiPAP. Continue per consultants. Continue to monitor hemoglobin hematocrit electrolytes and renal parameters. October 28: Seen in ICU. Remains on BiPAP. Low potassium and low magnesium addressed. Serum creatinine plateaued at 2.2. Continue per current treatment plan. October 27: Patient in ICU. On BiPAP. Serum creatinine rising. Blood pressure more stable. Will give 100 mg Lasix IV push with the hope of reversing oliguria. Medication list reviewed. Continue to monitor renal parameters. October 26: Seen in ICU. On pressors for low blood pressure. Serum creatinine 2.1. Albumin bolus given. Stress dose of steroids initiated. Continue to monitor renal parameters. Continue per consultants. October 25: Patient seen and examined. Trendelenburg. Blood pressure low. Tachycardic. Discussed with RN. Patient to be transferred to ICU. Discussed with ICU charge nurse and hospital charge nurse. Meanwhile patient started on Albumin bolus and 100 cc an hour D5 normal saline. Patient to be started on pressors while in ICU. Patient full code. October 24: No CHEM panel drawn today.. Renal parameters stable. Patient had a GT placed yesterday. Will check labs tomorrow. Medication list reviewed. October 23: Labs reviewed. Renal parameters unchanged. Creatinine 1.9. Continue current management. Medication list reviewed. October 22: Labs reviewed. Serum creatinine lower at 1.8. Patient started on clear liquid. Patient refuses p.o. medications and food at times. Continue per consultants. October 21: Labs reviewed. Serum creatinine unchanged. Continue per consultants. Continue to monitor renal parameters. October 20: Today's labs reviewed. Serum creatinine unchanged. RN reports patient not taking any p.o. meds. Continue per consultants. Serum creatinine appears to be baseline. October 19: Today's labs still not done yet. RN informed. Albumin bolus given again. Continue to monitor electrolytes and renal parameters. Per orders October 18: Patient hypotensive. Due for blood transfusion. Will give albumin bolus. Continue to monitor renal parameters and electrolytes. Labs and medication list reviewed Subjective ROS Limited/Unobtainable: Yes Objective Objective Last 24 Hour Vital Signs Date Time Temp Pulse Resp B/P (MAP) Pulse Ox O2 Delivery O2 Flow Rate FiO2 11/11/20 11:05 85 88/34 (52) 11/11/20 10:52 82 30 98 30 11/11/20 10:34 84 27 102/48 (66) 94 11/11/20 10:07 88 28 91/38 (55) 92 11/11/20 09:30 35 11/11/20 09:30 84 32 93/31 (51) 100 11/11/20 09:30 73 30 100 35 11/11/20 09:14 106 11/11/20 09:00 85 28 102/38 (59) 98 11/11/20 08:30 90 20 100 Venturi Mask 8.0 40 77 25 99 11/11/20 08:30 93 29 105/50 (68) 99 11/11/20 08:00 93 11/11/20 08:00 97.5 93 22 91/46 (61) 99 11/11/20 08:00 Venturi Mask 8.0 Venturi Mask 8.0 11/11/20 07:30 94 25 93/46 (62) 98 11/11/20 07:14 98 Venturi Mask 8.0 40 11/11/20 07:00 93 26 108/43 (64) 98 11/11/20 06:30 87 29 106/46 (66) 99 11/11/20 06:00 98.5 102 30 113/57 (75) 99 11/11/20 05:00 98 30 105/46 (65) 100 11/11/20 04:30 92 30 113/42 (65) 11/11/20 04:00 5.0 11/11/20 04:00 93 29 107/52 (70) 88 11/11/20 04:00 Nasal Cannula 5.0 Nasal Cannula 5.0 11/11/20 04:00 89 11/11/20 03:30 102/39 (60) 11/11/20 03:08 88 29 94/31 (52) 93 11/11/20 03:00 93 28 88/43 (58) 97 11/11/20 02:30 86 28 97/37 (57) 97 11/11/20 02:00 88 30 101/40 (60) 97 11/11/20 01:30 87 29 102/35 (57) 97 11/11/20 01:00 90 27 90/27 (48) 100 11/11/20 00:30 84 27 98/32 (54) 97 11/11/20 00:00 5.0 11/11/20 00:00 88 11/11/20 00:00 Nasal Cannula 5.0 Nasal Cannula 5.0 11/11/20 00:00 98.5 88 28 107/40 (62) 100 11/10/20 23:00 81 28 102/39 (60) 99 11/10/20 22:55 94 20 100 Nasal Cannula 5.0 40 91 22 98 11/10/20 22:30 83 27 116/59 (78) 100 11/10/20 22:00 83 28 109/51 (70) 100 11/10/20 21:30 86 26 104/49 (67) 100 11/10/20 21:00 89 25 117/56 (76) 11/10/20 20:30 83 26 108/44 (65) 99 11/10/20 20:00 Nasal Cannula 5.0 Nasal Cannula 5.0 11/10/20 20:00 5.0 11/10/20 20:00 92 29 133/52 (79) 97 11/10/20 20:00 84 11/10/20 19:30 88 28 114/56 (75) 96 11/10/20 19:00 82 24 93/49 (64) 96 11/10/20 18:00 77 26 104/54 (71) 96 11/10/20 17:00 98 Nasal Cannula 5.0 40 11/10/20 17:00 91 31 97/43 (61) 99 11/10/20 16:00 97.7 97 27 115/49 (71) 97 11/10/20 16:00 5.0 11/10/20 16:00 97 27 115/49 (71) 97 11/10/20 16:00 Nasal Cannula 5.0 Nasal Cannula 5.0 11/10/20 15:45 85 22 97 Nasal Cannula 5.0 40 11/10/20 15:24 74 11/10/20 15:10 86 20 100 Nasal Cannula 5.0 40 94 22 97 11/10/20 15:00 83 28 124/51 (75) 97 11/10/20 14:00 81 26 137/65 (89) 96 11/10/20 13:00 82 17 115/38 (63) 96 11/10/20 12:01 Nasal Cannula 5.0 Nasal Cannula 5.0 11/10/20 12:00 5.0 11/10/20 12:00 85 11/10/20 12:00 97.8 80 23 117/57 (77) 92 Intake and Output 11/10/20 11/11/20 19:00 07:00 Intake Total 1440 ml 480 ml Output Total 620 ml 425 ml Balance 820 ml 55 ml Free Water 100 ml IV Total 800 ml Tube Feeding 360 ml 480 ml Other 180 ml Output Urine Total 470 ml 425 ml Stool Total 150 ml Current Medications Medications (Trade) Dose Ordered Sig/Yolanda Route PRN Reason Start Time Stop Time Status Last Admin Dose Admin Acetaminophen (Tylenol) 650 mg Q4H PRN ORAL Pain Scale (6-10) 10/17/20 19:15 11/16/20 19:14 Acetaminophen (Tylenol) 650 mg Q6H PRN GT Mild Pain (Pain Scale 1-3) 11/04/20 10:45 12/04/20 10:44 11/04/20 18:20 Acetaminophen (Tylenol) 650 mg Q6H PRN GT Temp >100.5 11/04/20 10:45 12/04/20 10:44 Apixaban (Eliquis) 2.5 mg BID ORAL 10/24/20 18:00 01/22/21 17:59 11/10/20 18:01 Chlorhexidine Gluconate (Eve-Hex 2%) 1 applic DAILY@2000 TOPIC 10/22/20 20:00 01/20/21 19:59 11/10/20 20:46 Digoxin (Lanoxin) 0.125 mg DAILY GT 10/30/20 09:00 01/28/21 08:59 11/11/20 09:14 Ergocalciferol (Drisdol) 50,000 intlu QWEEK ORAL 11/10/20 12:00 12/10/20 11:59 11/10/20 11:45 Haloperidol Lactate 5 mg/ Dextrose 56 ml @ 224 mls/hr Q6H PRN IVPB Agitation 11/04/20 20:30 12/19/20 20:29 11/07/20 21:16 Levalbuterol HCl (Xopenex) 1.25 mg Q8HRT HHN 11/08/20 09:30 11/13/20 12:59 11/11/20 08:30 Levofloxacin (Levaquin) 750 mg EVERY OTHER DAY GT 11/08/20 09:00 11/15/20 08:59 11/10/20 09:09 Levothyroxine Sodium (Synthroid) 50 mcg DAILY@0630 ORAL 10/19/20 06:30 11/18/20 06:29 11/11/20 06:55 Ondansetron HCl (Zofran) 4 mg Q6H PRN IVP Nausea & Vomiting 10/17/20 21:15 11/16/20 21:14 Pantoprazole (Protonix) 40 mg Q12HR IVP 11/02/20 21:00 11/25/20 20:59 11/11/20 09:14 Laboratory Tests 11/11/20 03:35: White Blood Count 6.9, Red Blood Count 3.01L, Hemoglobin 8.9L, Hematocrit 29.7L, Mean Corpuscular Volume 99, Mean Corpuscular Hemoglobin 29.4, Mean Corpuscular Hemoglobin Concent 29.9L, Red Cell Distribution Width 19.0H, Platelet Count 234, Mean Platelet Volume 8.0, Neutrophils (%) (Auto) , Lymphocytes (%) (Auto) , Monocytes (%) (Auto) , Eosinophils (%) (Auto) , Basophils (%) (Auto) , Differential Total Cells Counted 100, Neutrophils % (Manual) 79H, Lymphocytes % (Manual) 3L, Monocytes % (Manual) 6, Eosinophils % (Manual) 0, Basophils % (Manual) 0, Band Neutrophils 12H, Nucleated Red Blood Cells 1, Platelet Estimate Adequate, Platelet Morphology Normal, Polychromasia 1+, Hypochromasia 1+, Anisocytosis 1+, Macrocytosis 1+, Sodium Level 149H, Potassium Level 4.4, Chloride Level 107, Carbon Dioxide Level 40H, Anion Gap 2L, Blood Urea Nitrogen 52H, Creatinine 1.3, Estimat Glomerular Filtration Rate 39.1, Glucose Level 129H , Uric Acid 8.8H, Calcium Level 8.4L, Phosphorus Level 3.4, Magnesium Level 2.0, Total Bilirubin 0.5, Aspartate Amino Transf (AST/SGOT) 29, Alanine Aminotransferase (ALT/SGPT) 21, Alkaline Phosphatase 81, C-Reactive Protein, Quantitative 6.8H, Pro-B-Type Natriuretic Peptide > 08822Z, Total Protein 5.8L, Albumin 2.1L, Globulin 3.7, Albumin/Globulin Ratio 0.6L 11/11/20 09:00: Arterial Blood pH 7.314L, Arterial Blood Partial Pressure CO2 80.1*H, Arterial Blood Partial Pressure O2 73.5L, Arterial Blood HCO3 39.8H, Arterial Blood Oxygen Saturation 93.3L, Arterial Blood Base Excess 11.4*H, Gallo Test Positive Height (Feet): 5 Height (Inches): 0.00 Weight (Pounds): 145 General Appearance: no apparent distress EENT: other - On BiPAP Cardiovascular: normal rate Respiratory/Chest: decreased breath sounds Abdomen: distended Dustin Gómez MD Nov 11, 2020 11:44
--- NOTE | 2020-11-11 14:17 | Infectious Diseases Prog Note ---
Assessment/Plan Assessment/Plan IMPRESSION: Pneumonia with Pseudomonas Hypercapnic, hypoxic respiratory failure Recent history of COVID disease, Acute renal failure, Aortic stenosis Atrial fibrillation, hypothyroidism, Anemia. Chronic DVT of R leg Hypotension Gastrostomy status Respiratory acidosis Left pleural effusion RECOMMENDATION: Continue Levaquin Subjective ROS Limited/Unobtainable: Yes Respiratory: Reports: other - had left thoracentesis, 700cc removed Allergies: Coded Allergies: No Known Allergies (Unverified , 10/17/20) Objective Last 24 Hour Vital Signs Date Time Temp Pulse Resp B/P (MAP) Pulse Ox O2 Delivery O2 Flow Rate FiO2 11/11/20 13:00 80 23 102/42 (62) 99 11/11/20 12:30 80 25 125/60 (81) 99 11/11/20 12:00 30 11/11/20 12:00 98.2 82 25 113/50 (71) 98 11/11/20 11:30 84 28 107/42 (63) 98 11/11/20 11:05 85 88/34 (52) 11/11/20 10:52 82 30 98 30 11/11/20 10:34 84 27 102/48 (66) 94 11/11/20 10:07 88 28 91/38 (55) 92 11/11/20 09:30 35 11/11/20 09:30 84 32 93/31 (51) 100 11/11/20 09:30 73 30 100 35 11/11/20 09:14 106 11/11/20 09:00 85 28 102/38 (59) 98 11/11/20 08:30 90 20 100 Venturi Mask 8.0 40 77 25 99 11/11/20 08:30 93 29 105/50 (68) 99 11/11/20 08:00 93 11/11/20 08:00 97.5 93 22 91/46 (61) 99 11/11/20 08:00 Venturi Mask 8.0 Venturi Mask 8.0 11/11/20 07:30 94 25 93/46 (62) 98 11/11/20 07:14 98 Venturi Mask 8.0 40 11/11/20 07:00 93 26 108/43 (64) 98 11/11/20 06:30 87 29 106/46 (66) 99 11/11/20 06:00 98.5 102 30 113/57 (75) 99 11/11/20 05:00 98 30 105/46 (65) 100 11/11/20 04:30 92 30 113/42 (65) 11/11/20 04:00 5.0 11/11/20 04:00 93 29 107/52 (70) 88 11/11/20 04:00 Nasal Cannula 5.0 Nasal Cannula 5.0 11/11/20 04:00 89 11/11/20 03:30 102/39 (60) 11/11/20 03:08 88 29 94/31 (52) 93 11/11/20 03:00 93 28 88/43 (58) 97 11/11/20 02:30 86 28 97/37 (57) 97 11/11/20 02:00 88 30 101/40 (60) 97 11/11/20 01:30 87 29 102/35 (57) 97 11/11/20 01:00 90 27 90/27 (48) 100 11/11/20 00:30 84 27 98/32 (54) 97 11/11/20 00:00 5.0 11/11/20 00:00 88 11/11/20 00:00 Nasal Cannula 5.0 Nasal Cannula 5.0 11/11/20 00:00 98.5 88 28 107/40 (62) 100 11/10/20 23:00 81 28 102/39 (60) 99 11/10/20 22:55 94 20 100 Nasal Cannula 5.0 40 91 22 98 11/10/20 22:30 83 27 116/59 (78) 100 11/10/20 22:00 83 28 109/51 (70) 100 11/10/20 21:30 86 26 104/49 (67) 100 11/10/20 21:00 89 25 117/56 (76) 11/10/20 20:30 83 26 108/44 (65) 99 11/10/20 20:00 Nasal Cannula 5.0 Nasal Cannula 5.0 11/10/20 20:00 5.0 11/10/20 20:00 92 29 133/52 (79) 97 11/10/20 20:00 84 11/10/20 19:30 88 28 114/56 (75) 96 11/10/20 19:00 82 24 93/49 (64) 96 11/10/20 18:00 77 26 104/54 (71) 96 11/10/20 17:00 98 Nasal Cannula 5.0 40 11/10/20 17:00 91 31 97/43 (61) 99 11/10/20 16:00 97.7 97 27 115/49 (71) 97 11/10/20 16:00 5.0 11/10/20 16:00 97 27 115/49 (71) 97 11/10/20 16:00 Nasal Cannula 5.0 Nasal Cannula 5.0 11/10/20 15:45 85 22 97 Nasal Cannula 5.0 40 11/10/20 15:24 74 11/10/20 15:10 86 20 100 Nasal Cannula 5.0 40 94 22 97 11/10/20 15:00 83 28 124/51 (75) 97 Height (Feet): 5 Height (Inches): 0.00 Weight (Pounds): 145 HEENT: mucous membranes moist Respiratory/Chest: decreased breath sounds, other - on BIPAP Cardiovascular: normal rate, other - left subclavian central line Abdomen: soft, non tender, other - GT feeding Laboratory Tests Test 11/11/20 03:35 11/11/20 09:00 11/11/20 11:50 White Blood Count 6.9 K/UL (4.8-10.8) Red Blood Count 3.01 M/UL (4.20-5.40) L Hemoglobin 8.9 G/DL (12.0-16.0) L Hematocrit 29.7 % (37.0-47.0) L Mean Corpuscular Volume 99 FL (80-99) Mean Corpuscular Hemoglobin 29.4 PG (27.0-31.0) Mean Corpuscular Hemoglobin Concent 29.9 G/DL (32.0-36.0) L Red Cell Distribution Width 19.0 % (11.6-14.8) H Platelet Count 234 K/UL (150-450) Mean Platelet Volume 8.0 FL (6.5-10.1) Neutrophils (%) (Auto) % (45.0-75.0) Lymphocytes (%) (Auto) % (20.0-45.0) Monocytes (%) (Auto) % (1.0-10.0) Eosinophils (%) (Auto) % (0.0-3.0) Basophils (%) (Auto) % (0.0-2.0) Differential Total Cells Counted 100 Neutrophils % (Manual) 79 % (45-75) H Lymphocytes % (Manual) 3 % (20-45) L Monocytes % (Manual) 6 % (1-10) Eosinophils % (Manual) 0 % (0-3) Basophils % (Manual) 0 % (0-2) Band Neutrophils 12 % (0-8) H Nucleated Red Blood Cells 1 /100 WBC Platelet Estimate Adequate Platelet Morphology Normal Polychromasia 1+ Hypochromasia 1+ Anisocytosis 1+ Macrocytosis 1+ Sodium Level 149 MMOL/L (136-145) H Potassium Level 4.4 MMOL/L (3.5-5.1) Chloride Level 107 MMOL/L (98-107) Carbon Dioxide Level 40 MMOL/L (21-32) H Anion Gap 2 mmol/L (5-15) L Blood Urea Nitrogen 52 mg/dL (7-18) H Creatinine 1.3 MG/DL (0.55-1.30) Estimat Glomerular Filtration Rate 39.1 mL/min (>60) Glucose Level 129 MG/DL (74-106) H Uric Acid 8.8 MG/DL (2.6-7.2) H Calcium Level 8.4 MG/DL (8.5-10.1) L Phosphorus Level 3.4 MG/DL (2.5-4.9) Magnesium Level 2.0 MG/DL (1.8-2.4) Total Bilirubin 0.5 MG/DL (0.2-1.0) Aspartate Amino Transf (AST/SGOT) 29 U/L (15-37) Alanine Aminotransferase (ALT/SGPT) 21 U/L (12-78) Alkaline Phosphatase 81 U/L (46-116) C-Reactive Protein, Quantitative 6.8 mg/dL (0.00-0.90) H Pro-B-Type Natriuretic Peptide > 45059 pg/mL (0-125) H Total Protein 5.8 G/DL (6.4-8.2) L Albumin 2.1 G/DL (3.4-5.0) L Globulin 3.7 g/dL Albumin/Globulin Ratio 0.6 (1.0-2.7) L Arterial Blood pH 7.314 (7.350-7.450) Arterial Blood Partial Pressure CO2 80.1 mmHg (35.0-45.0) *H Arterial Blood Partial Pressure O2 73.5 mmHg (75.0-100.0) L Arterial Blood HCO3 39.8 mmol/L (22.0-26.0) H Arterial Blood Oxygen Saturation 93.3 % (95-100) L Arterial Blood Base Excess 11.4 (-2-2) *H Gallo Test Positive Prothrombin Time 11.4 SEC (9.30-11.50) Prothromb Time International Ratio 1.0 (0.9-1.1) Activated Partial Thromboplast Time 27 SEC (23-33) Current Medications Medications (Trade) Dose Ordered Sig/Yolanda Route PRN Reason Start Time Stop Time Status Last Admin Dose Admin Acetaminophen (Tylenol) 650 mg Q4H PRN ORAL Pain Scale (6-10) 10/17/20 19:15 11/16/20 19:14 Acetaminophen (Tylenol) 650 mg Q6H PRN GT Mild Pain (Pain Scale 1-3) 11/04/20 10:45 12/04/20 10:44 11/04/20 18:20 Acetaminophen (Tylenol) 650 mg Q6H PRN GT Temp >100.5 11/04/20 10:45 12/04/20 10:44 Apixaban (Eliquis) 2.5 mg BID ORAL 10/24/20 18:00 01/22/21 17:59 11/10/20 18:01 Chlorhexidine Gluconate (Eve-Hex 2%) 1 applic DAILY@2000 TOPIC 10/22/20 20:00 01/20/21 19:59 11/10/20 20:46 Digoxin (Lanoxin) 0.125 mg DAILY GT 10/30/20 09:00 01/28/21 08:59 11/11/20 09:14 Haloperidol Lactate 5 mg/ Dextrose 56 ml @ 224 mls/hr Q6H PRN IVPB Agitation 11/04/20 20:30 12/19/20 20:29 11/07/20 21:16 Levalbuterol HCl (Xopenex) 1.25 mg Q8HRT HHN 11/08/20 09:30 11/13/20 12:59 11/11/20 08:30 Levofloxacin (Levaquin) 750 mg EVERY OTHER DAY GT 11/08/20 09:00 11/15/20 08:59 11/10/20 09:09 Levothyroxine Sodium (Synthroid) 50 mcg DAILY@0630 ORAL 10/19/20 06:30 11/18/20 06:29 11/11/20 06:55 Ondansetron HCl (Zofran) 4 mg Q6H PRN IVP Nausea & Vomiting 10/17/20 21:15 11/16/20 21:14 Pantoprazole (Protonix) 40 mg Q12HR IVP 11/02/20 21:00 11/25/20 20:59 11/11/20 09:14 Vitamin D (Vitamin D) 3,000 unit DAILY ORAL 11/12/20 09:00 12/12/20 08:59 Luis Alvarado MD Nov 11, 2020 14:17
--- NOTE | 2020-11-11 14:31 | Brief Operative Note ---
Immediate Post Operative Note Operative Note Pre-op Diagnosis: pleural effusion Procedure: thoracentesis L Post-op Diagnosis: same as pre-op Surgeon: Soumya Castellanos Anesthesia: local Specimen: yes - 50 ml sent to the lab Complications: none Fluids: none Implant(s) used?: No Austin Castellanos MD Nov 11, 2020 14:31
--- NOTE | 2020-11-11 14:37 | Cardiac Electrophysiology PN ---
Assessment/Plan Assessment/Plan 1. NSTEMI with elevated troponin of more than 0.2 and hx of prior HI The level has come down to 0.19, but the levels are flat and likely due to renal failure as the creatinine is 2.1. On aspirin and off Lopressor as hypotensive 2. Atrial fibrillation with rapid ventricular response. Off Lopressor for low BP On Dig 0.125 PEG daily and Eliquis 2.5 bid. Dig level 1.7 3. Respiratory failure , Extubated 11/06/20. On Diamox 4. S/P Septic shock, off Levophed 5. Renal insufficiency. BUN 52/ Cr 1.3. On Diamox 6. Status post COVID pneumonia, was tested positive more than two weeks ago. Now is Covid negative 7. Dysphagia, S/P PEG 10/23/[address] Full code. DW Dr. Gómez Subjective Subjective In ICU off pressors. Covid negative 10/25 and is off isolation In atrial fib with rate around 100. Dig level 1.7 Extubated 11/06/20. On BIPAP Objective Last 24 Hour Vital Signs Date Time Temp Pulse Resp B/P (MAP) Pulse Ox O2 Delivery O2 Flow Rate FiO2 11/11/20 13:00 80 23 102/42 (62) 99 11/11/20 12:30 80 25 125/60 (81) 99 11/11/20 12:00 30 11/11/20 12:00 98.2 82 25 113/50 (71) 98 11/11/20 11:30 84 28 107/42 (63) 98 11/11/20 11:05 85 88/34 (52) 11/11/20 10:52 82 30 98 30 11/11/20 10:34 84 27 102/48 (66) 94 11/11/20 10:07 88 28 91/38 (55) 92 11/11/20 09:30 35 11/11/20 09:30 84 32 93/31 (51) 100 11/11/20 09:30 73 30 100 35 11/11/20 09:14 106 11/11/20 09:00 85 28 102/38 (59) 98 11/11/20 08:30 90 20 100 Venturi Mask 8.0 40 77 25 99 11/11/20 08:30 93 29 105/50 (68) 99 11/11/20 08:00 93 11/11/20 08:00 97.5 93 22 91/46 (61) 99 11/11/20 08:00 Venturi Mask 8.0 Venturi Mask 8.0 11/11/20 07:30 94 25 93/46 (62) 98 11/11/20 07:14 98 Venturi Mask 8.0 40 11/11/20 07:00 93 26 108/43 (64) 98 11/11/20 06:30 87 29 106/46 (66) 99 11/11/20 06:00 98.5 102 30 113/57 (75) 99 11/11/20 05:00 98 30 105/46 (65) 100 11/11/20 04:30 92 30 113/42 (65) 11/11/20 04:00 5.0 11/11/20 04:00 93 29 107/52 (70) 88 11/11/20 04:00 Nasal Cannula 5.0 Nasal Cannula 5.0 11/11/20 04:00 89 11/11/20 03:30 102/39 (60) 11/11/20 03:08 88 29 94/31 (52) 93 11/11/20 03:00 93 28 88/43 (58) 97 11/11/20 02:30 86 28 97/37 (57) 97 11/11/20 02:00 88 30 101/40 (60) 97 11/11/20 01:30 87 29 102/35 (57) 97 11/11/20 01:00 90 27 90/27 (48) 100 11/11/20 00:30 84 27 98/32 (54) 97 11/11/20 00:00 5.0 11/11/20 00:00 88 11/11/20 00:00 Nasal Cannula 5.0 Nasal Cannula 5.0 11/11/20 00:00 98.5 88 28 107/40 (62) 100 11/10/20 23:00 81 28 102/39 (60) 99 11/10/20 22:55 94 20 100 Nasal Cannula 5.0 40 91 22 98 11/10/20 22:30 83 27 116/59 (78) 100 11/10/20 22:00 83 28 109/51 (70) 100 11/10/20 21:30 86 26 104/49 (67) 100 11/10/20 21:00 89 25 117/56 (76) 11/10/20 20:30 83 26 108/44 (65) 99 11/10/20 20:00 Nasal Cannula 5.0 Nasal Cannula 5.0 11/10/20 20:00 5.0 11/10/20 20:00 92 29 133/52 (79) 97 11/10/20 20:00 84 11/10/20 19:30 88 28 114/56 (75) 96 11/10/20 19:00 82 24 93/49 (64) 96 11/10/20 18:00 77 26 104/54 (71) 96 11/10/20 17:00 98 Nasal Cannula 5.0 40 11/10/20 17:00 91 31 97/43 (61) 99 11/10/20 16:00 97.7 97 27 115/49 (71) 97 11/10/20 16:00 5.0 11/10/20 16:00 97 27 115/49 (71) 97 11/10/20 16:00 Nasal Cannula 5.0 Nasal Cannula 5.0 11/10/20 15:45 85 22 97 Nasal Cannula 5.0 40 11/10/20 15:24 74 11/10/20 15:10 86 20 100 Nasal Cannula 5.0 40 94 22 97 11/10/20 15:00 83 28 124/51 (75) 97 Intake and Output 11/10/20 11/11/20 19:00 07:00 Intake Total 1440 ml 480 ml Output Total 620 ml 425 ml Balance 820 ml 55 ml Free Water 100 ml IV Total 800 ml Tube Feeding 360 ml 480 ml Other 180 ml Output Urine Total 470 ml 425 ml Stool Total 150 ml Laboratory Tests Test 11/11/20 03:35 11/11/20 09:00 11/11/20 11:50 White Blood Count 6.9 K/UL (4.8-10.8) Red Blood Count 3.01 M/UL (4.20-5.40) L Hemoglobin 8.9 G/DL (12.0-16.0) L Hematocrit 29.7 % (37.0-47.0) L Mean Corpuscular Volume 99 FL (80-99) Mean Corpuscular Hemoglobin 29.4 PG (27.0-31.0) Mean Corpuscular Hemoglobin Concent 29.9 G/DL (32.0-36.0) L Red Cell Distribution Width 19.0 % (11.6-14.8) H Platelet Count 234 K/UL (150-450) Mean Platelet Volume 8.0 FL (6.5-10.1) Neutrophils (%) (Auto) % (45.0-75.0) Lymphocytes (%) (Auto) % (20.0-45.0) Monocytes (%) (Auto) % (1.0-10.0) Eosinophils (%) (Auto) % (0.0-3.0) Basophils (%) (Auto) % (0.0-2.0) Differential Total Cells Counted 100 Neutrophils % (Manual) 79 % (45-75) H Lymphocytes % (Manual) 3 % (20-45) L Monocytes % (Manual) 6 % (1-10) Eosinophils % (Manual) 0 % (0-3) Basophils % (Manual) 0 % (0-2) Band Neutrophils 12 % (0-8) H Nucleated Red Blood Cells 1 /100 WBC Platelet Estimate Adequate Platelet Morphology Normal Polychromasia 1+ Hypochromasia 1+ Anisocytosis 1+ Macrocytosis 1+ Sodium Level 149 MMOL/L (136-145) H Potassium Level 4.4 MMOL/L (3.5-5.1) Chloride Level 107 MMOL/L (98-107) Carbon Dioxide Level 40 MMOL/L (21-32) H Anion Gap 2 mmol/L (5-15) L Blood Urea Nitrogen 52 mg/dL (7-18) H Creatinine 1.3 MG/DL (0.55-1.30) Estimat Glomerular Filtration Rate 39.1 mL/min (>60) Glucose Level 129 MG/DL (74-106) H Uric Acid 8.8 MG/DL (2.6-7.2) H Calcium Level 8.4 MG/DL (8.5-10.1) L Phosphorus Level 3.4 MG/DL (2.5-4.9) Magnesium Level 2.0 MG/DL (1.8-2.4) Total Bilirubin 0.5 MG/DL (0.2-1.0) Aspartate Amino Transf (AST/SGOT) 29 U/L (15-37) Alanine Aminotransferase (ALT/SGPT) 21 U/L (12-78) Alkaline Phosphatase 81 U/L (46-116) C-Reactive Protein, Quantitative 6.8 mg/dL (0.00-0.90) H Pro-B-Type Natriuretic Peptide > 22471 pg/mL (0-125) H Total Protein 5.8 G/DL (6.4-8.2) L Albumin 2.1 G/DL (3.4-5.0) L Globulin 3.7 g/dL Albumin/Globulin Ratio 0.6 (1.0-2.7) L Arterial Blood pH 7.314 (7.350-7.450) Arterial Blood Partial Pressure CO2 80.1 mmHg (35.0-45.0) *H Arterial Blood Partial Pressure O2 73.5 mmHg (75.0-100.0) L Arterial Blood HCO3 39.8 mmol/L (22.0-26.0) H Arterial Blood Oxygen Saturation 93.3 % (95-100) L Arterial Blood Base Excess 11.4 (-2-2) *H Gallo Test Positive Prothrombin Time 11.4 SEC (9.30-11.50) Prothromb Time International Ratio 1.0 (0.9-1.1) Activated Partial Thromboplast Time 27 SEC (23-33) Objective HEAD AND NECK: No JVD. LUNGS: Decreased breath sounds. CARDIOVASCULAR: Irregular S1 and S2 with no gallop. ABDOMEN: Soft.S/P PEG EXTREMITIES: No pitting edema. Terry Reyes MD Nov 11, 2020 14:37
--- NOTE | 2020-11-11 16:31 | Cardiology Report ---
APPROVED REPORT EKG Measurement Heart [id number] <Conclusion> Suspect arm lead reversal, interpretation assumes no reversal Wide QRS tachycardia Possible Right ventricular hypertrophy Anterolateral infarct, age undetermined Marked ST abnormality, possible inferior subendocardial injury Abnormal ECG
--- NOTE | 2020-11-11 16:47 | Diagnostic Imaging Report ---
Indications: Pleural effusion Technique: Ultrasound used to localize optimal puncture site. Sterile prepping and draping left chest. Local anesthesia with 1% lidocaine. Under real-time ultrasound guidance, puncture pleural space using thoracentesis needle. Stylet removed. Catheter placed to vacuum bottle suction. Total 700 milliliters of fluid aspirated. Patient tolerated procedure well, without immediate complication. Findings: Followup sonography demonstrates near complete resolution of pleural fluid. Impression: Successful ultrasound-guided thoracentesis, yielding 700 milliliters of fluid
--- NOTE | 2020-11-11 17:05 | Diagnostic Imaging Report ---
Indication: Postthoracentesis, history of pleural effusion, history of cough Technique: One view of the chest Comparison: 11/09/2020 Findings: Interim marked decrease in left-sided pleural fluid, status post thoracentesis. Left hemidiaphragm now visible. No pneumothorax. Left subclavian central venous catheter remains. Bilateral interstitial and airspace infiltrates versus edema persists, unchanged. Impression: Improved left pleural effusion, status post thoracentesis. No radiographically evident complication
--- NOTE | 2020-11-11 19:15 | NUR ---
NURSE NOTES: Rn received report from day RN. Patient denies pain at this time. Patient vitals stable. Patient placed on bipap during the day and tolerating well. RN will continue to monitor.
--- NOTE | 2020-11-11 19:25 | NUR ---
0715: Received report from previous RN. Pt on mask at 10L and 40%. Pt will arouse to name but very fatigued. 0930: ABG done and per orders from DARREN Pedro pt now on BiPAP. 1000: Dr. Ruiz at bedside. No new orders. 1330: Pt getting thoracentesis done at bedside. Pt remains on BiPAP. Pt tolerating procedure. 1400: 700 mL removed during paracentesis. 1500: Dr. Reyes at bedside. No new orders. 1600: Pt remains cool to touch. Pt remains in afib. Toes are cyanotic. Pt awake and restless. Pt continuously reminded to leave BiPAP in place. 1924: Report given to SERGIO Jordan. Pt remains on BiPAP. VSS at this time. Pt remains on TF at goal. Pt remains with rectal tube and rothman. Bed in lowest position. Side rail x3. Care continues.
--- NOTE | 2020-11-11 20:54 | General Progress Note ---
Subjective ROS Limited/Unobtainable: Yes Allergies: Coded Allergies: No Known Allergies (Unverified , 10/17/20) Objective Last 24 Hour Vital Signs Date Time Temp Pulse Resp B/P (MAP) Pulse Ox O2 Delivery O2 Flow Rate FiO2 11/11/20 19:30 86 22 124/57 (79) 100 11/11/20 19:06 86 29 98 30 11/11/20 19:05 99 Bi-Pap 30 11/11/20 19:00 94 14 131/45 (73) 96 11/11/20 18:30 83 22 103/43 (63) 97 11/11/20 18:00 87 27 122/52 (75) 97 11/11/20 17:30 91 29 135/60 (85) 100 11/11/20 17:17 82 27 100 30 11/11/20 17:00 88 17 116/65 (82) 100 11/11/20 16:30 89 17 123/56 (78) 100 11/11/20 16:00 35 11/11/20 16:00 Bi-pap Bi-pap 11/11/20 16:00 98.8 86 20 122/44 (70) 100 11/11/20 16:00 99 11/11/20 15:52 85 26 100 Bi-Pap 35 82 26 99 11/11/20 15:52 82 26 99 35 11/11/20 15:30 87 11 143/56 (85) 99 11/11/20 15:00 87 9 118/50 (72) 98 11/11/20 14:30 88 37 111/52 (71) 99 11/11/20 14:00 85 25 98/48 (65) 98 11/11/20 13:32 85 34 94 35 11/11/20 13:30 86 15 120/51 (74) 89 11/11/20 13:00 80 23 102/42 (62) 99 11/11/20 12:30 80 25 125/60 (81) 99 11/11/20 12:00 30 11/11/20 12:00 79 11/11/20 12:00 98.2 82 25 113/50 (71) 98 11/11/20 12:00 Bi-pap Bi-pap 11/11/20 11:30 84 28 107/42 (63) 98 11/11/20 11:05 85 88/34 (52) 11/11/20 10:52 82 30 98 30 11/11/20 10:34 84 27 102/48 (66) 94 11/11/20 10:07 88 28 91/38 (55) 92 11/11/20 09:30 35 11/11/20 09:30 84 32 93/31 (51) 100 11/11/20 09:30 73 30 100 35 11/11/20 09:14 106 11/11/20 09:00 85 28 102/38 (59) 98 11/11/20 08:30 90 20 100 Venturi Mask 8.0 40 77 25 99 11/11/20 08:30 93 29 105/50 (68) 99 11/11/20 08:00 93 11/11/20 08:00 97.5 93 22 91/46 (61) 99 11/11/20 08:00 Venturi Mask 8.0 Venturi Mask 8.0 11/11/20 07:30 94 25 93/46 (62) 98 11/11/20 07:14 98 Venturi Mask 8.0 40 11/11/20 07:00 93 26 108/43 (64) 98 11/11/20 06:30 87 29 106/46 (66) 99 11/11/20 06:00 98.5 102 30 113/57 (75) 99 11/11/20 05:00 98 30 105/46 (65) 100 11/11/20 04:30 92 30 113/42 (65) 11/11/20 04:00 5.0 11/11/20 04:00 93 29 107/52 (70) 88 11/11/20 04:00 Nasal Cannula 5.0 Nasal Cannula 5.0 11/11/20 04:00 89 11/11/20 03:30 102/39 (60) 11/11/20 03:08 88 29 94/31 (52) 93 11/11/20 03:00 93 28 88/43 (58) 97 11/11/20 02:30 86 28 97/37 (57) 97 11/11/20 02:00 88 30 101/40 (60) 97 11/11/20 01:30 87 29 102/35 (57) 97 11/11/20 01:00 90 27 90/27 (48) 100 11/11/20 00:30 84 27 98/32 (54) 97 11/11/20 00:00 5.0 11/11/20 00:00 88 11/11/20 00:00 Nasal Cannula 5.0 Nasal Cannula 5.0 11/11/20 00:00 98.5 88 28 107/40 (62) 100 11/10/20 23:00 81 28 102/39 (60) 99 11/10/20 22:55 94 20 100 Nasal Cannula 5.0 40 91 22 98 11/10/20 22:30 83 27 116/59 (78) 100 11/10/20 22:00 83 28 109/51 (70) 100 11/10/20 21:30 86 26 104/49 (67) 100 11/10/20 21:00 89 25 117/56 (76) Intake and Output 11/10/20 11/11/20 19:00 07:00 Intake Total 1440 ml 480 ml Output Total 620 ml 425 ml Balance 820 ml 55 ml Free Water 100 ml IV Total 800 ml Tube Feeding 360 ml 480 ml Other 180 ml Output Urine Total 470 ml 425 ml Stool Total 150 ml Laboratory Tests 11/11/20 03:35: White Blood Count 6.9, Red Blood Count 3.01L, Hemoglobin 8.9L, Hematocrit 29.7L, Mean Corpuscular Volume 99, Mean Corpuscular Hemoglobin 29.4, Mean Corpuscular Hemoglobin Concent 29.9L, Red Cell Distribution Width 19.0H, Platelet Count 234, Mean Platelet Volume 8.0, Neutrophils (%) (Auto) , Lymphocytes (%) (Auto) , Monocytes (%) (Auto) , Eosinophils (%) (Auto) , Basophils (%) (Auto) , Differential Total Cells Counted 100, Neutrophils % (Manual) 79H, Lymphocytes % (Manual) 3L, Monocytes % (Manual) 6, Eosinophils % (Manual) 0, Basophils % (Manual) 0, Band Neutrophils 12H, Nucleated Red Blood Cells 1, Platelet Estimate Adequate, Platelet Morphology Normal, Polychromasia 1+, Hypochromasia 1+, Anisocytosis 1+, Macrocytosis 1+, Sodium Level 149H, Potassium Level 4.4, Chloride Level 107, Carbon Dioxide Level 40H, Anion Gap 2L, Blood Urea Nitrogen 52H, Creatinine 1.3, Estimat Glomerular Filtration Rate 39.1, Glucose Level 129H , Uric Acid 8.8H, Calcium Level 8.4L, Phosphorus Level 3.4, Magnesium Level 2.0, Total Bilirubin 0.5, Aspartate Amino Transf (AST/SGOT) 29, Alanine Aminotra nsferase (ALT/SGPT) 21, Alkaline Phosphatase 81, C-Reactive Protein, Quantitative 6.8H, Pro-B-Type Natriuretic Peptide > 10233V, Total Protein 5.8L, Albumin 2.1L, Globulin 3.7, Albumin/Globulin Ratio 0.6L 11/11/20 09:00: Arterial Blood pH 7.314L, Arterial Blood Partial Pressure CO2 80.1*H, Arterial Blood Partial Pressure O2 73.5L, Arterial Blood HCO3 39.8H, Arterial Blood Oxygen Saturation 93.3L, Arterial Blood Base Excess 11.4*H, Gallo Test Positive 11/11/20 11:50: Prothrombin Time 11.4, Prothromb Time International Ratio 1.0, Activated Partial Thromboplast Time 27 Height (Feet): 5 Height (Inches): 0.00 Weight (Pounds): 145 Assessment/Plan Problem List: (1) Anemia ICD Codes: D64.9 - Anemia, unspecified SNOMED: 878652130 (2) Acute kidney injury ICD Codes: N17.9 - Acute kidney failure, unspecified SNOMED: 71514995, 4876198 (3) Atrial fibrillation ICD Codes: I48.91 - Unspecified atrial fibrillation SNOMED: 63753317 (4) Elevated troponin ICD Codes: R77.8 - Other specified abnormalities of plasma proteins SNOMED: 219533383, 667690128, 637391759 (5) Malnutrition ICD Codes: E46 - Unspecified protein-calorie malnutrition SNOMED: 75225025 (6) Pneumonia due to COVID-19 virus ICD Codes: U07.1 - COVID-19; J12.82 - Pneumonia due to coronavirus disease 2019 SNOMED: [id number] (7) Hypothyroidism ICD Codes: E03.9 - Hypothyroidism, unspecified SNOMED: 85812693 Status: progressing, unchanged Assessment/Plan: s/p intubation resp insuff no wheezing weak pna hima eval arrythmia azotemia sepsis Neri Dumont MD Nov 11, 2020 20:54
[2020-11-11] MEDS: Dyna-Hex 2% Top Sol 2oz TOPIC SCH (21:03)
--- NOTE | 2020-11-11 21:50 | NUR ---
NURSE NOTES: Patient resting. patient vitals stable. patient repositioned. RN will continue to monitor.
--- NOTE | 2020-11-11 22:19 | Surgery Progress Note ---
Surgery Progress Note Subjective Procedure Performed left subclavian central venous catheter insertion Additional Comments late entry as seen this AM ill appearing on bipap Objective Last 24 Hour Vital Signs Date Time Temp Pulse Resp B/P (MAP) Pulse Ox O2 Delivery O2 Flow Rate FiO2 11/11/20 21:00 82 24 98 30 11/11/20 19:30 86 22 124/57 (79) 100 11/11/20 19:06 86 29 98 30 11/11/20 19:05 99 Bi-Pap 30 11/11/20 19:00 94 14 131/45 (73) 96 11/11/20 18:30 83 22 103/43 (63) 97 11/11/20 18:00 87 27 122/52 (75) 97 11/11/20 17:30 91 29 135/60 (85) 100 11/11/20 17:17 82 27 100 30 11/11/20 17:00 88 17 116/65 (82) 100 11/11/20 16:30 89 17 123/56 (78) 100 11/11/20 16:00 35 11/11/20 16:00 Bi-pap Bi-pap 11/11/20 16:00 98.8 86 20 122/44 (70) 100 11/11/20 16:00 99 11/11/20 15:52 85 26 100 Bi-Pap 35 82 26 99 11/11/20 15:52 82 26 99 35 11/11/20 15:30 87 11 143/56 (85) 99 11/11/20 15:00 87 9 118/50 (72) 98 11/11/20 14:30 88 37 111/52 (71) 99 11/11/20 14:00 85 25 98/48 (65) 98 11/11/20 13:32 85 34 94 35 11/11/20 13:30 86 15 120/51 (74) 89 11/11/20 13:00 80 23 102/42 (62) 99 11/11/20 12:30 80 25 125/60 (81) 99 11/11/20 12:00 30 11/11/20 12:00 79 11/11/20 12:00 98.2 82 25 113/50 (71) 98 11/11/20 12:00 Bi-pap Bi-pap 11/11/20 11:30 84 28 107/42 (63) 98 11/11/20 11:05 85 88/34 (52) 11/11/20 10:52 82 30 98 30 11/11/20 10:34 84 27 102/48 (66) 94 11/11/20 10:07 88 28 91/38 (55) 92 11/11/20 09:30 35 11/11/20 09:30 84 32 93/31 (51) 100 11/11/20 09:30 73 30 100 35 11/11/20 09:14 106 11/11/20 09:00 85 28 102/38 (59) 98 11/11/20 08:30 90 20 100 Venturi Mask 8.0 40 77 25 99 11/11/20 08:30 93 29 105/50 (68) 99 11/11/20 08:00 93 11/11/20 08:00 97.5 93 22 91/46 (61) 99 11/11/20 08:00 Venturi Mask 8.0 Venturi Mask 8.0 11/11/20 07:30 94 25 93/46 (62) 98 11/11/20 07:14 98 Venturi Mask 8.0 40 11/11/20 07:00 93 26 108/43 (64) 98 11/11/20 06:30 87 29 106/46 (66) 99 11/11/20 06:00 98.5 102 30 113/57 (75) 99 11/11/20 05:00 98 30 105/46 (65) 100 11/11/20 04:30 92 30 113/42 (65) 11/11/20 04:00 5.0 11/11/20 04:00 93 29 107/52 (70) 88 11/11/20 04:00 Nasal Cannula 5.0 Nasal Cannula 5.0 11/11/20 04:00 89 11/11/20 03:30 102/39 (60) 11/11/20 03:08 88 29 94/31 (52) 93 11/11/20 03:00 93 28 88/43 (58) 97 11/11/20 02:30 86 28 97/37 (57) 97 11/11/20 02:00 88 30 101/40 (60) 97 11/11/20 01:30 87 29 102/35 (57) 97 11/11/20 01:00 90 27 90/27 (48) 100 11/11/20 00:30 84 27 98/32 (54) 97 11/11/20 00:00 5.0 11/11/20 00:00 88 11/11/20 00:00 Nasal Cannula 5.0 Nasal Cannula 5.0 11/11/20 00:00 98.5 88 28 107/40 (62) 100 11/10/20 23:00 81 28 102/39 (60) 99 11/10/20 22:55 94 20 100 Nasal Cannula 5.0 40 91 22 98 11/10/20 22:30 83 27 116/59 (78) 100 I&O Intake and Output 11/10/20 11/11/20 19:00 07:00 Intake Total 1440 ml 480 ml Output Total 620 ml 425 ml Balance 820 ml 55 ml Free Water 100 ml IV Total 800 ml Tube Feeding 360 ml 480 ml Other 180 ml Output Urine Total 470 ml 425 ml Stool Total 150 ml Cardiovascular: RSR Respiratory: decreased breath sounds Abdomen: non-tender, present bowel sounds, non-distended Extremities: edema, no tenderness, no cyanosis Laboratory Tests Test 11/11/20 03:35 11/11/20 09:00 11/11/20 11:50 White Blood Count 6.9 K/UL (4.8-10.8) Red Blood Count 3.01 M/UL (4.20-5.40) L Hemoglobin 8.9 G/DL (12.0-16.0) L Hematocrit 29.7 % (37.0-47.0) L Mean Corpuscular Volume 99 FL (80-99) Mean Corpuscular Hemoglobin 29.4 PG (27.0-31.0) Mean Corpuscular Hemoglobin Concent 29.9 G/DL (32.0-36.0) L Red Cell Distribution Width 19.0 % (11.6-14.8) H Platelet Count 234 K/UL (150-450) Mean Platelet Volume 8.0 FL (6.5-10.1) Neutrophils (%) (Auto) % (45.0-75.0) Lymphocytes (%) (Auto) % (20.0-45.0) Monocytes (%) (Auto) % (1.0-10.0) Eosinophils (%) (Auto) % (0.0-3.0) Basophils (%) (Auto) % (0.0-2.0) Differential Total Cells Counted 100 Neutrophils % (Manual) 79 % (45-75) H Lymphocytes % (Manual) 3 % (20-45) L Monocytes % (Manual) 6 % (1-10) Eosinophils % (Manual) 0 % (0-3) Basophils % (Manual) 0 % (0-2) Band Neutrophils 12 % (0-8) H Nucleated Red Blood Cells 1 /100 WBC Platelet Estimate Adequate Platelet Morphology Normal Polychromasia 1+ Hypochromasia 1+ Anisocytosis 1+ Macrocytosis 1+ Sodium Level 149 MMOL/L (136-145) H Potassium Level 4.4 MMOL/L (3.5-5.1) Chloride Level 107 MMOL/L (98-107) Carbon Dioxide Level 40 MMOL/L (21-32) H Anion Gap 2 mmol/L (5-15) L Blood Urea Nitrogen 52 mg/dL (7-18) H Creatinine 1.3 MG/DL (0.55-1.30) Estimat Glomerular Filtration Rate 39.1 mL/min (>60) Glucose Level 129 MG/DL (74-106) H Uric Acid 8.8 MG/DL (2.6-7.2) H Calcium Level 8.4 MG/DL (8.5-10.1) L Phosphorus Level 3.4 MG/DL (2.5-4.9) Magnesium Level 2.0 MG/DL (1.8-2.4) Total Bilirubin 0.5 MG/DL (0.2-1.0) Aspartate Amino Transf (AST/SGOT) 29 U/L (15-37) Alanine Aminotransferase (ALT/SGPT) 21 U/L (12-78) Alkaline Phosphatase 81 U/L (46-116) C-Reactive Protein, Quantitative 6.8 mg/dL (0.00-0.90) H Pro-B-Type Natriuretic Peptide > 12068 pg/mL (0-125) H Total Protein 5.8 G/DL (6.4-8.2) L Albumin 2.1 G/DL (3.4-5.0) L Globulin 3.7 g/dL Albumin/Globulin Ratio 0.6 (1.0-2.7) L Arterial Blood pH 7.314 (7.350-7.450) Arterial Blood Partial Pressure CO2 80.1 mmHg (35.0-45.0) *H Arterial Blood Partial Pressure O2 73.5 mmHg (75.0-100.0) L Arterial Blood HCO3 39.8 mmol/L (22.0-26.0) H Arterial Blood Oxygen Saturation 93.3 % (95-100) L Arterial Blood Base Excess 11.4 (-2-2) *H Gallo Test Positive Prothrombin Time 11.4 SEC (9.30-11.50) Prothromb Time International Ratio 1.0 (0.9-1.1) Activated Partial Thromboplast Time 27 SEC (23-33) Plan Problems: (1) Anemia (2) Acute kidney injury (3) Atrial fibrillation (4) Hyperkalemia (5) Elevated troponin (6) Decubitus skin ulcer Assessment & Plan: Pt presented on admission with Multiple Medical Comorbidities including Covid-19 and Pressure Injuries. Primary Nurse reported Pt has been declining food and medications. Sacral DTPI that is evolving noted to Sacrum(L)6cm x (W)12.5cm.. Scattered Purpuric areas that are indurated noted to R and L cheek. Small wound that is 100% slough (L)0.6cm x (W)0.7cm noted at sacrococcygeal area within base of DTPI. MASD noted to Perineum and skin folds of Medial/posterior aspects of Both upper thighs. Affected areas are erythematous and macerated with scattered satellite lesions. DTPI L Heel (L)3cm x (W)4cm, Base of heel is maroon and fluctuant with small purpuric area (L)0.4cm x (W)0.9cm within base of DTPI. l Foot including toes are mottled and cool to touch. L Heel is boggy. L Heel including toes are Mottled and cool to touch. Tx.Plan: Apply Moisture Barrier Paste to Sacrum. Cover with Optifoam drsg.Change every 3 days and prn. Apply Moisture Barrier Paste to abdominal folds, Perineum and skin folds of both upper thighs. Apply Cavilon Skin Barrier to both heels. Cover each Heel with Optifoam drsg. Change every 7 days and prn. Reposition at least every 2hours or as tolerated. Off-load heels with pillow. (7) Malnutrition Assessment & Plan: She was able to self feed on right hand and took a bite of popsicle and tolerated without s.s of aspiration. After 1st bite, then she refused 2nd bite. After this was done, I offered her a cup of cranberry juice, she took few sips and tolerated without s.s of aspiration. I continued to offer but she refused further PO. A: 1. Functional swallow 2. Failure to thrive 3. abnormal electrolytes in setting of heart failure, NSTEMI, elevated BNP, etc.. P/Rec. 1. Pureed and thin liquid 2.3. Goal of care discussion DAILY ESTIMATED NEEDS: Needs based on Cardiac, pulmonary/ 51kg abw 25-30 kcals/kg [id number] total kcals 1-1.5 g protein/kg 51-76 g total protein 20-25 mL/kg 7018-0700 total fluid mLs NUTRITION DIAGNOSIS: Swallowing difficulty R/T dysphagia, decreased cognitive fxn as evidenced by FELLER BUNCHER OPERATOR recommends pureed moist texture diet at this time. CURRENT DIET:NPO PO DIET RECOMMENDATIONS: Liberalized REGULAR w/ poor PO (texture per FELLER BUNCHER OPERATOR) ADDITIONAL RECOMMENDATIONS: * Calibrated bedscale wt * Monitor PO intake: refusing meds and foods at this time -> rec nonoral feeds w/ continued refusal of PO if part of POC * LOW NA diet w/ PO intake consistently >50% * 4 oz Ensure TID w/ meals (4oz at this time due to poor acceptance, may increase to 8oz w/ good acceptance) (8) Pneumonia due to COVID-19 virus Assessment & Plan: here appears to be increased left pleural fluid and generalized hazy parenchymal opacity, left greater than right. Heart remains enlarged Impression: Increased left pleural effusion Suspect increasing bilateral left greater than right pulmonary edema versus infiltrates worsening intubated on vent weaned extubated (9) Hypothyroidism Ana LuisaJim Nov 11, 2020 22:19
--- NOTE | 2020-11-11 23:55 | NUR ---
NURSE NOTES: patient resting. patient in no acute distress. Patient vitals stable at this time. Patient repositioned for comfort. Non skid socks placed on patient due to toes being extremely cold. RN will continue to monitor.
[2020-11-12] VITALS (33 sets, daily range): BP systolic 91–147; BP diastolic 34–95
--- NOTE | 2020-11-12 01:40 | NUR ---
NURSE NOTES: Patient vitals stable. patient repositioned. RN will continue to monitor.
--- NOTE | 2020-11-12 04:00 | NUR ---
NURSE NOTES: Patient vitals stable. patient bathed and repositioned. Patient tube feeding changed and dated. RN will continue to monitor.
--- NOTE | 2020-11-12 06:31 | Hematology/Onc Progress Note ---
Assessment/Plan Assessment/Plan Assessment and recs # Anemia r/o gi bleed --> anemia panel has been ordered-->reviewed --> hgb 8.1->9.3->9.7-->9.5-->10.5-->10.2-->9.1->8.6-->7.8-->8.1-->9.2-->8.7-->9.1 --> no hemolysis is noted --> transfuse on prn basis --> 1 unit prbc 10/30 # Thrombocytopenia likely due to reactive process --> plt 138-->149-->176-->162 --> imaging prn --> smear has been reviewed --> viral w/u neg # Hypercoag disorder with Atrial fibrillation --> consider anticoag as per cards --> if bleeding, consider hold anticoag # Elevated trop --> per cards # Hyperkalemia --> per renal # Acute kidney injury --> per renal # Resp failure on bipap # Recently COVID-19 positive # Dvt ppx scds --> lovenox sq Appreciate consultation and dw rn Subjective Constitutional: Denies: no symptoms, chills, fever, malaise, weakness, other HEENT: Denies: no symptoms, eye pain, blurred vision, tearing, double vision, ear pain, ear discharge, nose pain, nose congestion, throat pain, throat swelling, mouth pain, mouth swelling, other Cardiovascular: Denies: no symptoms, chest pain, edema, irregular heart rate, lightheadedness, palpitations, syncope, other Respiratory: Denies: no symptoms, cough, shortness of breath, SOB with excertion, SOB at rest, sputum, wheezing, other Genitourinary: Denies: no symptoms, burning, discharge, frequency, flank pain, hematuria, incontinence, pain, urgency, other Neurologic/Psychiatric: Denies: no symptoms, anxiety, depressed, emotional problems, headache, numbness, paresthesia, pre-existing deficit, seizure, tingling, tremors, weakness, other Endocrine: Denies: no symptoms, excessive sweating, flushing, intolerance to cold, intolerance to heat, increased hunger, increased thirst, increased urine, unexplained weight gain, unexplained weight loss, other Allergies: Coded Allergies: No Known Allergies (Unverified , 10/17/20) Subjective 10/19 cbc is pending, did get blood transfusion last night, pending results 10/20 meds noted, no bleeding, labs reviewed, rosio rn, no new changes 10/21 on 4l nc, has been refusing labs, meds noted, no bleeding 10/22 nc, refusing meds labs reviewed, rosio rn 10/23 is potentially for egd this am, no bleeding, cbc is noted 10/25 meds noted, no bleeidng, is on nc, no night sweats, bp bolus pending 10/26 bed bath done, meds noted, no bleeding, cbc reviewed from am 10/27 lethargic, on bipap, levophed, meds reviewed 10/28 icu, lethargic, remains on bipap, pressors 10/29 icu, lethargic, meds noted, on bipap, labs noted 10/30 icu, bipap, to get 1 unit prbc, meds reviewed, labs noted 10/31 icu, on vent, no bipap 11/01: remains in icu, no bleeding reported 11/02 icu, lethargic, on vent, with gt feeds on hold, labs noted 11/03 icu, intubated on vent, lethargic, labs reviewed, meds noted 11/04 icu, remains intuabted is on vent, lethargic, labs reviewed 11/05 icu, nv, on vent, lethargic, labs noted 11/06 icu, extubated, is on simple mask, meds noted 11/08 in icu, on simple mask and bipap prn, labs reviewed 11/09 icu, labs reviewed, on face mask, meds noted 11/10 icu, asleep, bipap, with rothman, meds noted, rosio rn 11/11 icu, meds noted, remains bipap, labs reviewed 11/12 icu, labs noted, meds reviewed, no bleeding Objective Objective Current Medications Medications (Trade) Dose Ordered Sig/Yolanda Route PRN Reason Start Time Stop Time Status Last Admin Dose Admin Acetaminophen (Tylenol) 650 mg Q4H PRN ORAL Pain Scale (6-10) 10/17/20 19:15 11/16/20 19:14 Acetaminophen (Tylenol) 650 mg Q6H PRN GT Mild Pain (Pain Scale 1-3) 11/04/20 10:45 12/04/20 10:44 11/04/20 18:20 Acetaminophen (Tylenol) 650 mg Q6H PRN GT Temp >100.5 11/04/20 10:45 12/04/20 10:44 Apixaban (Eliquis) 2.5 mg BID ORAL 10/24/20 18:00 01/22/21 17:59 11/11/20 18:29 Chlorhexidine Gluconate (Eve-Hex 2%) 1 applic DAILY@2000 TOPIC 10/22/20 20:00 01/20/21 19:59 11/11/20 21:03 Digoxin (Lanoxin) 0.125 mg DAILY GT 10/30/20 09:00 01/28/21 08:59 11/11/20 09:14 Haloperidol Lactate 5 mg/ Dextrose 56 ml @ 224 mls/hr Q6H PRN IVPB Agitation 11/04/20 20:30 12/19/20 20:29 11/07/20 21:16 Levalbuterol HCl (Xopenex) 1.25 mg Q8HRT HHN 11/08/20 09:30 11/13/20 12:59 11/11/20 22:16 Levofloxacin (Levaquin) 750 mg EVERY OTHER DAY GT 11/08/20 09:00 11/15/20 08:59 11/10/20 09:09 Levothyroxine Sodium (Synthroid) 50 mcg DAILY@0630 ORAL 10/19/20 06:30 11/18/20 06:29 11/11/20 06:55 Ondansetron HCl (Zofran) 4 mg Q6H PRN IVP Nausea & Vomiting 10/17/20 21:15 11/16/20 21:14 Pantoprazole (Protonix) 40 mg Q12HR IVP 11/02/20 21:00 11/25/20 20:59 11/11/20 21:03 Vitamin D (Vitamin D) 3,000 unit DAILY ORAL 11/12/20 09:00 12/12/20 08:59 Last 24 Hour Vital Signs Date Time Temp Pulse Resp B/P (MAP) Pulse Ox O2 Delivery O2 Flow Rate FiO2 11/12/20 05:01 97 22 99 30 3/18/21 04:30 85 22 117/48 (71) 100 11/12/20 04:00 Bi-pap Bi-pap 11/12/20 04:00 83 23 125/72 (89) 99 11/12/20 03:30 89 20 111/51 (71) 97 11/12/20 03:00 98 33 99 30 11/12/20 03:00 86 26 122/50 (74) 100 11/12/20 03:00 86 26 100 11/12/20 02:30 86 25 128/54 (78) 98 11/12/20 02:00 86 26 132/59 (83) 99 11/12/20 01:39 98 24 99 30 11/12/20 01:30 86 26 122/64 (83) 99 11/12/20 01:00 88 11 137/49 (78) 99 11/12/20 00:30 86 24 136/64 (88) 98 11/12/20 00:00 Bi-pap Bi-pap 11/12/20 00:00 86 26 135/73 (93) 98 11/11/20 23:30 83 25 124/63 (83) 99 11/11/20 23:00 85 22 117/46 (69) 98 11/11/20 22:50 98 28 98 30 11/11/20 22:49 88 26 100 Bi-Pap 35 75 25 98 11/11/20 22:30 85 26 122/47 (72) 97 11/11/20 22:00 83 29 120/57 (78) 98 11/11/20 21:30 88 22 146/59 (88) 99 11/11/20 21:00 90 22 136/54 (81) 99 11/11/20 21:00 82 24 98 30 11/11/20 20:30 86 21 119/66 (83) 98 11/11/20 20:00 35 11/11/20 20:00 Bi-pap Bi-pap 11/11/20 20:00 85 11/11/20 20:00 97.6 88 26 136/50 (78) 98 11/11/20 19:30 86 22 124/57 (79) 100 11/11/20 19:06 86 29 98 30 11/11/20 19:05 99 Bi-Pap 30 11/11/20 19:00 94 14 131/45 (73) 96 11/11/20 18:30 83 22 103/43 (63) 97 11/11/20 18:00 87 27 122/52 (75) 97 11/11/20 17:30 91 29 135/60 (85) 100 11/11/20 17:17 82 27 100 30 11/11/20 17:00 88 17 116/65 (82) 100 11/11/20 16:30 89 17 123/56 (78) 100 11/11/20 16:00 35 11/11/20 16:00 Bi-pap Bi-pap 11/11/20 16:00 98.8 86 20 122/44 (70) 100 11/11/20 16:00 99 11/11/20 15:52 85 26 100 Bi-Pap 35 82 26 99 11/11/20 15:52 82 26 99 35 11/11/20 15:30 87 11 143/56 (85) 99 11/11/20 15:00 87 9 118/50 (72) 98 11/11/20 14:30 88 37 111/52 (71) 99 11/11/20 14:00 85 25 98/48 (65) 98 11/11/20 13:32 85 34 94 35 11/11/20 13:30 86 15 120/51 (74) 89 11/11/20 13:00 80 23 102/42 (62) 99 11/11/20 12:30 80 25 125/60 (81) 99 11/11/20 12:00 30 11/11/20 12:00 79 11/11/20 12:00 98.2 82 25 113/50 (71) 98 11/11/20 12:00 Bi-pap Bi-pap 11/11/20 11:30 84 28 107/42 (63) 98 11/11/20 11:05 85 88/34 (52) 11/11/20 10:52 82 30 98 30 11/11/20 10:34 84 27 102/48 (66) 94 11/11/20 10:07 88 28 91/38 (55) 92 11/11/20 09:30 35 11/11/20 09:30 84 32 93/31 (51) 100 11/11/20 09:30 73 30 100 35 11/11/20 09:14 106 11/11/20 09:00 85 28 102/38 (59) 98 11/11/20 08:30 90 20 100 Venturi Mask 8.0 40 77 25 99 11/11/20 08:30 93 29 105/50 (68) 99 11/11/20 08:00 93 11/11/20 08:00 97.5 93 22 91/46 (61) 99 11/11/20 08:00 Venturi Mask 8.0 Venturi Mask 8.0 11/11/20 07:30 94 25 93/46 (62) 98 11/11/20 07:14 98 Venturi Mask 8.0 40 11/11/20 07:00 93 26 108/43 (64) 98 11/11/20 06:30 87 29 106/46 (66) 99 11/11/20 06:00 98.5 102 30 113/57 (75) 99 11/11/20 05:00 98 30 105/46 (65) 100 11/11/20 04:30 92 30 113/42 (65) 11/11/20 04:00 5.0 11/11/20 04:00 93 29 107/52 (70) 88 11/11/20 04:00 Nasal Cannula 5.0 Nasal Cannula 5.0 11/11/20 04:00 89 11/11/20 03:30 102/39 (60) 11/11/20 03:08 88 29 94/31 (52) 93 11/11/20 03:00 93 28 88/43 (58) 97 11/11/20 02:30 86 28 97/37 (57) 97 11/11/20 02:00 88 30 101/40 (60) 97 11/11/20 01:30 87 29 102/35 (57) 97 11/11/20 01:00 90 27 90/27 (48) 100 11/11/20 00:30 84 27 98/32 (54) 97 11/11/20 00:00 5.0 11/11/20 00:00 88 11/11/20 00:00 Nasal Cannula 5.0 Nasal Cannula 5.0 11/11/20 00:00 98.5 88 28 107/40 (62) 100 11/10/20 23:00 81 28 102/39 (60) 99 11/10/20 22:55 94 20 100 Nasal Cannula 5.0 40 91 22 98 11/10/20 22:30 83 27 116/59 (78) 100 11/10/20 22:00 83 28 109/51 (70) 100 11/10/20 21:30 86 26 104/49 (67) 100 11/10/20 21:00 89 25 117/56 (76) 11/10/20 20:30 83 26 108/44 (65) 99 11/10/20 20:00 Nasal Cannula 5.0 Nasal Cannula 5.0 11/10/20 20:00 5.0 11/10/20 20:00 92 29 133/52 (79) 97 11/10/20 20:00 84 11/10/20 19:30 88 28 114/56 (75) 96 11/10/20 19:00 82 24 93/49 (64) 96 11/10/20 18:00 77 26 104/54 (71) 96 11/10/20 17:00 98 Nasal Cannula 5.0 40 11/10/20 17:00 91 31 97/43 (61) 99 11/10/20 16:00 97.7 97 27 115/49 (71) 97 11/10/20 16:00 5.0 11/10/20 16:00 97 27 115/49 (71) 97 11/10/20 16:00 Nasal Cannula 5.0 Nasal Cannula 5.0 11/10/20 15:45 85 22 97 Nasal Cannula 5.0 40 11/10/20 15:24 74 11/10/20 15:10 86 20 100 Nasal Cannula 5.0 40 94 22 97 11/10/20 15:00 83 28 124/51 (75) 97 11/10/20 14:00 81 26 137/65 (89) 96 11/10/20 13:00 82 17 115/38 (63) 96 11/10/20 12:01 Nasal Cannula 5.0 Nasal Cannula 5.0 11/10/20 12:00 5.0 11/10/20 12:00 85 11/10/20 12:00 97.8 80 23 117/57 (77) 92 11/10/20 11:12 100 Nasal Cannula 2.0 28 11/10/20 11:00 74 23 140/72 (94) 98 11/10/20 10:00 92 23 138/44 (75) 98 11/10/20 09:09 74 11/10/20 09:00 93 26 138/44 (75) 98 11/10/20 08:01 Bi-pap 50.0 Bi-pap 50.0 11/10/20 08:00 98.7 74 20 115/51 (72) 97 11/10/20 08:00 30 11/10/20 08:00 74 11/10/20 07:29 83 14 98 Mechanical Ventilator 35 91 24 98 30 11/10/20 07:00 84 24 122/61 (81) 98 Intake and Output 11/11/20 11/12/20 19:00 07:00 Intake Total 580 ml 360 ml Output Total 625 ml 260 ml Balance -45 ml 100 ml Free Water 100 ml Tube Feeding 480 ml 360 ml Output Urine Total 575 ml 260 ml Stool Total 50 ml Labs Test 11/09/20 09:58 11/09/20 12:00 11/09/20 16:09 11/10/20 05:43 Arterial Blood pH 7.331 (7.350-7.450) Arterial Blood Partial Pressure CO2 75.7 mmHg (35.0-45.0) Arterial Blood Partial Pressure O2 58.6 mmHg (75.0-100.0) Arterial Blood HCO3 39.1 mmol/L (22.0-26.0) Arterial Blood Oxygen Saturation 87.9 % (95-100) Arterial Blood Base Excess 11.0 (-2-2) Gallo Test Positive POC Whole Blood Glucose 131 MG/DL (74-106) 111 MG/DL (74-106) White Blood Count 5.6 K/UL (4.8-10.8) Red Blood Count 2.85 M/UL (4.20-5.40) Hemoglobin 8.3 G/DL (12.0-16.0) Hematocrit 27.6 % (37.0-47.0) Mean Corpuscular Volume 97 FL (80-99) Mean Corpuscular Hemoglobin 29.2 PG (27.0-31.0) Mean Corpuscular Hemoglobin Concent 30.1 G/DL (32.0-36.0) Red Cell Distribution Width 18.7 % (11.6-14.8) Platelet Count 200 K/UL (150-450) Mean Platelet Volume 7.7 FL (6.5-10.1) Neutrophils (%) (Auto) 83.3 % (45.0-75.0) Lymphocytes (%) (Auto) 10.5 % (20.0-45.0) Monocytes (%) (Auto) 4.5 % (1.0-10.0) Eosinophils (%) (Auto) 1.5 % (0.0-3.0) Basophils (%) (Auto) 0.2 % (0.0-2.0) Sodium Level 153 MMOL/L (136-145) Potassium Level 4.0 MMOL/L (3.5-5.1) Chloride Level 111 MMOL/L (98-107) Carbon Dioxide Level 39 MMOL/L (21-32) Anion Gap 3 mmol/L (5-15) Blood Urea Nitrogen 51 mg/dL (7-18) Creatinine 1.3 MG/DL (0.55-1.30) Estimat Glomerular Filtration Rate 39.1 mL/min (>60) Glucose Level 107 MG/DL (74-106) Calcium Level 8.9 MG/DL (8.5-10.1) Phosphorus Level 3.1 MG/DL (2.5-4.9) Magnesium Level 2.2 MG/DL (1.8-2.4) Total Bilirubin 0.8 MG/DL (0.2-1.0) Aspartate Amino Transf (AST/SGOT) 16 U/L (15-37) Alanine Aminotransferase (ALT/SGPT) 15 U/L (12-78) Alkaline Phosphatase 72 U/L (46-116) Total Protein 5.6 G/DL (6.4-8.2) Albumin 2.0 G/DL (3.4-5.0) Globulin 3.6 g/dL Albumin/Globulin Ratio 0.6 (1.0-2.7) Test 11/10/20 08:32 11/11/20 03:35 11/11/20 09:00 11/11/20 11:50 Arterial Blood pH 7.412 (7.350-7.450) 7.314 (7.350-7.450) Arterial Blood Partial Pressure CO2 59.5 mmHg (35.0-45.0) 80.1 mmHg (35.0-45.0) Arterial Blood Partial Pressure O2 84.8 mmHg (75.0-100.0) 73.5 mmHg (75.0-100.0) Arterial Blood HCO3 37.0 mmol/L (22.0-26.0) 39.8 mmol/L (22.0-26.0) Arterial Blood Oxygen Saturation 95.6 % (95-100) 93.3 % (95-100) Arterial Blood Base Excess 10.8 (-2-2) 11.4 (-2-2) Gallo Test Positive Positive White Blood Count 6.9 K/UL (4.8-10.8) Red Blood Count 3.01 M/UL (4.20-5.40) Hemoglobin 8.9 G/DL (12.0-16.0) Hematocrit 29.7 % (37.0-47.0) Mean Corpuscular Volume 99 FL (80-99) Mean Corpuscular Hemoglobin 29.4 PG (27.0-31.0) Mean Corpuscular Hemoglobin Concent 29.9 G/DL (32.0-36.0) Red Cell Distribution Width 19.0 % (11.6-14.8) Platelet Count 234 K/UL (150-450) Mean Platelet Volume 8.0 FL (6.5-10.1) Neutrophils (%) (Auto) % (45.0-75.0) Lymphocytes (%) (Auto) % (20.0-45.0) Monocytes (%) (Auto) % (1.0-10.0) Eosinophils (%) (Auto) % (0.0-3.0) Basophils (%) (Auto) % (0.0-2.0) Differential Total Cells Counted 100 Neutrophils % (Manual) 79 % (45-75) Lymphocytes % (Manual) 3 % (20-45) Monocytes % (Manual) 6 % (1-10) Eosinophils % (Manual) 0 % (0-3) Basophils % (Manual) 0 % (0-2) Band Neutrophils 12 % (0-8) Nucleated Red Blood Cells 1 /100 WBC Platelet Estimate Adequate Platelet Morphology Normal Polychromasia 1+ Hypochromasia 1+ Anisocytosis 1+ Macrocytosis 1+ Sodium Level 149 MMOL/L (136-145) Potassium Level 4.4 MMOL/L (3.5-5.1) Chloride Level 107 MMOL/L (98-107) Carbon Dioxide Level 40 MMOL/L (21-32) Anion Gap 2 mmol/L (5-15) Blood Urea Nitrogen 52 mg/dL (7-18) Creatinine 1.3 MG/DL (0.55-1.30) Estimat Glomerular Filtration Rate 39.1 mL/min (>60) Glucose Level 129 MG/DL (74-106) Uric Acid 8.8 MG/DL (2.6-7.2) Calcium Level 8.4 MG/DL (8.5-10.1) Phosphorus Level 3.4 MG/DL (2.5-4.9) Magnesium Level 2.0 MG/DL (1.8-2.4) Total Bilirubin 0.5 MG/DL (0.2-1.0) Aspartate Amino Transf (AST/SGOT) 29 U/L (15-37) Alanine Aminotransferase (ALT/SGPT) 21 U/L (12-78) Alkaline Phosphatase 81 U/L (46-116) C-Reactive Protein, Quantitative 6.8 mg/dL (0.00-0.90) Pro-B-Type Natriuretic Peptide > 94207 pg/mL (0-125) Total Protein 5.8 G/DL (6.4-8.2) Albumin 2.1 G/DL (3.4-5.0) Globulin 3.7 g/dL Albumin/Globulin Ratio 0.6 (1.0-2.7) Prothrombin Time 11.4 SEC (9.30-11.50) Prothromb Time International Ratio 1.0 (0.9-1.1) Activated Partial Thromboplast Time 27 SEC (23-33) Height (Feet): 5 Height (Inches): 0.00 Weight (Pounds): 145 Objective Physical Exam General: Awake and alert, no acute distress HEENT: NC/AT. EOMI. Cardiovascular: Irregularly irregular rhythm. Resp: Normal work of breathing. ++simple face mask Abdomen: Abdomen is soft, nondistended. Nontender Skin: Intact. No abrasions, laceration or rash over the exposed skin MSK: Normal tone and bulk. Moving all extremities. Neuro: Awake and alert. Mentating appropriately. Hawk Ma MD Nov 12, 2020 06:31
--- NOTE | 2020-11-12 07:07 | NUR ---
NURSE HAND-OFF REPORT: Latest Vital Signs: Temperature 97.6 , Pulse 77 , B/P 91 /47 , Respiratory Rate 22 , O2 SAT 100 , Simple Mask, O2 Flow Rate 8.0 . Vital Sign Comment: EKG Rhythm: Atrial Fibrillation Rhythm change?: N MD Notified?: - MD Response: Latest Elizabeth Fall Score: 50 Fall Risk: High Risk Safety Measures: Call light Within Reach, Bed Alarm Zone 1, Side Rails Side Rails x3, Bed position Low and Locked. Fall Precautions: Yellow Socks Patient Fall Education Report given to .
--- NOTE | 2020-11-12 07:08 | NUR ---
NURSE NOTES: Report received from Nikki Bruno RN .Patient asleep noted no respiratory distress on bipap mask at 35% Fio2, no signs of pain or discomfort, AFIB on the bi tri operator. With GT feeding Glucerna 1.5 at 40 ml/hr, no residual noted, Green cath draining yellow urine, Rectal tube in placed, skin warm and dry with LT SC TLC intact, SR up x2 HOB elevated, bed lock in lowest position. Will continue plan of care.
[2020-11-12] MEDS: Vitamin D 1000 units Tab GT SCH (08:17)
[2020-11-12] MEDS: Pantoprazole Inj IVP SCH ×2 (08:17→20:48)
[2020-11-12] MEDS: Digoxin 0.125mg tab GT SCH (08:18)
[2020-11-12] MEDS: Levofloxacin 750mg tab GT SCH (08:18)
[2020-11-12] MEDS: Eliquis 2.5mg tablet ORAL SCH (08:18)
[2020-11-12] MEDS: Levalbuterol Inh UD 1.25mg/0.5ml HHN SCH ×3 (08:37→22:43)
[2020-11-12] MEDS ORDERED: Vitamin D 1000 units Tab ORAL SCH (09:00)
--- NOTE | 2020-11-12 10:30 | NUR ---
NURSE NOTES: Dr. Gómez at bedside.
--- NOTE | 2020-11-12 10:36 | Pulmonology Progress Note ---
Subjective ROS Limited/Unobtainable: Yes Interval Events: Intubated 10/31/20; extubated 11/05/20; BiPAP Constitutional: Reports: no symptoms HEENT: Repors: no symptoms Respiratory: Reports: no symptoms Cardiovascular: Reports: no symptoms Gastrointestinal/Abdominal: Reports: diarrhea Psychiatric: Reports: other Allergies: Coded Allergies: No Known Allergies (Unverified , 10/17/20) All Systems: reviewed and negative except above Objective Last 24 Hour Vital Signs Date Time Temp Pulse Resp B/P (MAP) Pulse Ox O2 Delivery O2 Flow Rate FiO2 11/12/20 10:00 84 20 123/68 (86) 98 11/12/20 09:00 76 16 147/54 (85) 99 11/12/20 08:18 82 11/12/20 08:00 Bi-pap Bi-pap 11/12/20 08:00 30 11/12/20 08:00 98.0 82 25 119/46 (70) 99 11/12/20 07:50 93 11/12/20 07:00 83 23 141/54 (83) 99 11/12/20 06:30 77 22 91/47 (62) 100 11/12/20 06:18 82 23 102/43 (62) 100 11/12/20 06:00 82 23 130/55 (80) 99 11/12/20 05:30 83 21 127/45 (72) 99 11/12/20 05:01 97 22 99 30 11/12/20 05:00 83 21 132/62 (85) 99 11/12/20 04:30 85 22 117/48 (71) 100 11/12/20 04:00 91 11/12/20 04:00 Bi-pap Bi-pap 11/12/20 04:00 35 11/12/20 04:00 83 23 125/72 (89) 99 11/12/20 03:30 89 20 111/51 (71) 97 11/12/20 03:00 98 33 99 30 11/12/20 03:00 86 26 122/50 (74) 100 11/12/20 03:00 86 26 100 11/12/20 02:30 86 25 128/54 (78) 98 11/12/20 02:00 86 26 132/59 (83) 99 11/12/20 01:39 98 24 99 30 11/12/20 01:30 86 26 122/64 (83) 99 11/12/20 01:00 88 11 137/49 (78) 99 11/12/20 00:30 86 24 136/64 (88) 98 11/12/20 00:00 35 11/12/20 00:00 Bi-pap Bi-pap 11/12/20 00:00 74 11/12/20 00:00 86 26 135/73 (93) 98 11/11/20 23:30 83 25 124/63 (83) 99 11/11/20 23:00 85 22 117/46 (69) 98 11/11/20 22:50 98 28 98 30 11/11/20 22:49 88 26 100 Bi-Pap 35 75 25 98 11/11/20 22:30 85 26 122/47 (72) 97 11/11/20 22:00 83 29 120/57 (78) 98 11/11/20 21:30 88 22 146/59 (88) 99 11/11/20 21:00 90 22 136/54 (81) 99 11/11/20 21:00 82 24 98 30 11/11/20 20:30 86 21 119/66 (83) 98 11/11/20 20:00 35 11/11/20 20:00 Bi-pap Bi-pap 11/11/20 20:00 85 11/11/20 20:00 97.6 88 26 136/50 (78) 98 11/11/20 19:30 86 22 124/57 (79) 100 11/11/20 19:06 86 29 98 30 11/11/20 19:05 99 Bi-Pap 30 11/11/20 19:00 94 14 131/45 (73) 96 11/11/20 18:30 83 22 103/43 (63) 97 11/11/20 18:00 87 27 122/52 (75) 97 11/11/20 17:30 91 29 135/60 (85) 100 11/11/20 17:17 82 27 100 30 11/11/20 17:00 88 17 116/65 (82) 100 11/11/20 16:30 89 17 123/56 (78) 100 11/11/20 16:00 35 11/11/20 16:00 Bi-pap Bi-pap 11/11/20 16:00 98.8 86 20 122/44 (70) 100 11/11/20 16:00 99 11/11/20 15:52 85 26 100 Bi-Pap 35 82 26 99 11/11/20 15:52 82 26 99 35 11/11/20 15:30 87 11 143/56 (85) 99 11/11/20 15:00 87 9 118/50 (72) 98 11/11/20 14:30 88 37 111/52 (71) 99 11/11/20 14:00 85 25 98/48 (65) 98 11/11/20 13:32 85 34 94 35 11/11/20 13:30 86 15 120/51 (74) 89 11/11/20 13:00 80 23 102/42 (62) 99 11/11/20 12:30 80 25 125/60 (81) 99 11/11/20 12:00 30 11/11/20 12:00 79 11/11/20 12:00 98.2 82 25 113/50 (71) 98 11/11/20 12:00 Bi-pap Bi-pap 11/11/20 11:30 84 28 107/42 (63) 98 11/11/20 11:05 85 88/34 (52) 11/11/20 10:52 82 30 98 30 Intake and Output 11/11/20 11/12/20 19:00 07:00 Intake Total 580 ml 480 ml Output Total 625 ml 350 ml Balance -45 ml 130 ml Free Water 100 ml Tube Feeding 480 ml 480 ml Output Urine Total 575 ml 350 ml Stool Total 50 ml General Appearance: no acute distress HEENT: atraumatic Respiratory: lungs clear Cardiovascular: normal rate, regular rhythm Abdomen: soft, non tender, other - s/p PEG Laboratory Tests 11/11/20 11:50: Prothrombin Time 11.4, Prothromb Time International Ratio 1.0, Activated Partial Thromboplast Time 27 11/12/20 08:39: Arterial Blood pH 7.393, Arterial Blood Partial Pressure CO2 65.4*H, Arterial Blood Partial Pressure O2 89.1, Arterial Blood HCO3 39.0H, Arterial Blood Oxygen Saturation 96.1, Arterial Blood Base Excess 12.3*H, Gallo Test Positive Current Medications Medications (Trade) Dose Ordered Sig/Yolanda Route PRN Reason Start Time Stop Time Status Last Admin Dose Admin Acetaminophen (Tylenol) 650 mg Q4H PRN ORAL Pain Scale (6-10) 10/17/20 19:15 11/16/20 19:14 Acetaminophen (Tylenol) 650 mg Q6H PRN GT Mild Pain (Pain Scale 1-3) 11/04/20 10:45 12/04/20 10:44 11/04/20 18:20 Acetaminophen (Tylenol) 650 mg Q6H PRN GT Temp >100.5 11/04/20 10:45 12/04/20 10:44 Apixaban (Eliquis) 2.5 mg BID ORAL 10/24/20 18:00 01/22/21 17:59 11/12/20 08:18 Chlorhexidine Gluconate (Eve-Hex 2%) 1 applic DAILY@2000 TOPIC 10/22/20 20:00 01/20/21 19:59 11/11/20 21:03 Digoxin (Lanoxin) 0.125 mg DAILY GT 10/30/20 09:00 01/28/21 08:59 11/12/20 08:18 Haloperidol Lactate 5 mg/ Dextrose 56 ml @ 224 mls/hr Q6H PRN IVPB Agitation 11/04/20 20:30 12/19/20 20:29 11/07/20 21:16 Levalbuterol HCl (Xopenex) 1.25 mg Q8HRT HHN 11/08/20 09:30 11/13/20 12:59 11/12/20 08:37 Levofloxacin (Levaquin) 750 mg EVERY OTHER DAY GT 11/08/20 09:00 11/15/20 08:59 11/12/20 08:18 Levothyroxine Sodium (Synthroid) 50 mcg DAILY@0630 ORAL 10/19/20 06:30 11/18/20 06:29 11/12/20 06:33 Ondansetron HCl (Zofran) 4 mg Q6H PRN IVP Nausea & Vomiting 10/17/20 21:15 11/16/20 21:14 Pantoprazole (Protonix) 40 mg Q12HR IVP 11/02/20 21:00 11/25/20 20:59 11/12/20 08:17 Vitamin D (Vitamin D) 3,000 unit DAILY GT 11/12/20 09:00 12/12/20 08:59 11/12/20 08:17 Assessment/Plan Assessment/Plan 1. CHF - CXR (11/07) pulmonary vascular congestion and small pleural effusions. - s/p thoracentesis (11/11) 700mL out 2. CAD/previous non-STEMI. 3. intermediate resident. 4. Bradycardia. 5. Atrial fibrillation. -Started on Eliquis 6. Renal insufficiency. -Nephro following 7. Troponin leak. - Cardio following 8. COVID-19 pneumonia, without fever or leukocytosis - s/p intubated; now extubated 11/06/20 - Still on BiPAP - Sp Cx (11/03) Gram negative bacillus -> now on meropenem per ID - added Levalbuterol 9. Respiratory failure, s/p vent - now extubated 10. 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 UTI, cheryl 12. Dysphagia -s/p PEG (10/23) 13. Hypotension; improved - s/p NS bolus - pressors as needed 14. L pleural effusion; improved - completed Diamox 250 mg q6hr x8 doses -s/p thoracentesis (11/11) 700 mL Noted Edgardo eval; BiPAP vs. trach The care of this patient was discussed with my supervising physician Time spent for this encounter was approximately 31 minutes Tl Pedro Nov 12, 2020 10:36
--- NOTE | 2020-11-12 10:46 | NUR ---
NURSE NOTES: Dr. Woods at bedside. Aware of today's ABG result.
--- NOTE | 2020-11-12 11:41 | Infectious Diseases Prog Note ---
Assessment/Plan Assessment/Plan IMPRESSION: Pneumonia with Pseudomonas Hypercapnic, hypoxic respiratory failure Recent history of COVID disease, Acute renal failure, Aortic stenosis Atrial fibrillation, hypothyroidism, Anemia. Chronic DVT of R leg Hypotension Gastrostomy status Respiratory acidosis Left pleural effusion s/p thoracentesis RECOMMENDATION: Discontinue Levaquin Observe off antibiotic Subjective ROS Limited/Unobtainable: Yes Constitutional: Reports: other - doig better Respiratory: Reports: other - off of BIPAP Allergies: Coded Allergies: No Known Allergies (Unverified , 10/17/20) Objective Last 24 Hour Vital Signs Date Time Temp Pulse Resp B/P (MAP) Pulse Ox O2 Delivery O2 Flow Rate FiO2 11/12/20 10:00 84 20 123/68 (86) 98 11/12/20 09:00 76 16 147/54 (85) 99 11/12/20 08:18 82 11/12/20 08:00 Bi-pap Bi-pap 11/12/20 08:00 30 11/12/20 08:00 98.0 82 25 119/46 (70) 99 11/12/20 07:50 93 11/12/20 07:00 83 23 141/54 (83) 99 11/12/20 06:30 77 22 91/47 (62) 100 11/12/20 06:18 82 23 102/43 (62) 100 11/12/20 06:00 82 23 130/55 (80) 99 11/12/20 05:30 83 21 127/45 (72) 99 11/12/20 05:01 97 22 99 30 11/12/20 05:00 83 21 132/62 (85) 99 11/12/20 04:30 85 22 117/48 (71) 100 11/12/20 04:00 91 11/12/20 04:00 Bi-pap Bi-pap 11/12/20 04:00 35 11/12/20 04:00 83 23 125/72 (89) 99 11/12/20 03:30 89 20 111/51 (71) 97 11/12/20 03:00 98 33 99 30 11/12/20 03:00 86 26 122/50 (74) 100 11/12/20 03:00 86 26 100 11/12/20 02:30 86 25 128/54 (78) 98 11/12/20 02:00 86 26 132/59 (83) 99 3/18/21 01:39 98 24 99 30 11/12/20 01:30 86 26 122/64 (83) 99 11/12/20 01:00 88 11 137/49 (78) 99 11/12/20 00:30 86 24 136/64 (88) 98 11/12/20 00:00 35 11/12/20 00:00 Bi-pap Bi-pap 11/12/20 00:00 74 11/12/20 00:00 86 26 135/73 (93) 98 11/11/20 23:30 83 25 124/63 (83) 99 11/11/20 23:00 85 22 117/46 (69) 98 11/11/20 22:50 98 28 98 30 11/11/20 22:49 88 26 100 Bi-Pap 35 75 25 98 11/11/20 22:30 85 26 122/47 (72) 97 11/11/20 22:00 83 29 120/57 (78) 98 11/11/20 21:30 88 22 146/59 (88) 99 11/11/20 21:00 90 22 136/54 (81) 99 11/11/20 21:00 82 24 98 30 11/11/20 20:30 86 21 119/66 (83) 98 11/11/20 20:00 35 11/11/20 20:00 Bi-pap Bi-pap 11/11/20 20:00 85 11/11/20 20:00 97.6 88 26 136/50 (78) 98 11/11/20 19:30 86 22 124/57 (79) 100 11/11/20 19:06 86 29 98 30 11/11/20 19:05 99 Bi-Pap 30 11/11/20 19:00 94 14 131/45 (73) 96 11/11/20 18:30 83 22 103/43 (63) 97 11/11/20 18:00 87 27 122/52 (75) 97 11/11/20 17:30 91 29 135/60 (85) 100 11/11/20 17:17 82 27 100 30 11/11/20 17:00 88 17 116/65 (82) 100 11/11/20 16:30 89 17 123/56 (78) 100 11/11/20 16:00 35 11/11/20 16:00 Bi-pap Bi-pap 11/11/20 16:00 98.8 86 20 122/44 (70) 100 11/11/20 16:00 99 11/11/20 15:52 85 26 100 Bi-Pap 35 82 26 99 11/11/20 15:52 82 26 99 35 11/11/20 15:30 87 11 143/56 (85) 99 11/11/20 15:00 87 9 118/50 (72) 98 11/11/20 14:30 88 37 111/52 (71) 99 11/11/20 14:00 85 25 98/48 (65) 98 11/11/20 13:32 85 34 94 35 11/11/20 13:30 86 15 120/51 (74) 89 11/11/20 13:00 80 23 102/42 (62) 99 11/11/20 12:30 80 25 125/60 (81) 99 11/11/20 12:00 30 11/11/20 12:00 79 11/11/20 12:00 98.2 82 25 113/50 (71) 98 11/11/20 12:00 Bi-pap Bi-pap Height (Feet): 5 Height (Inches): 0.00 Weight (Pounds): 145 HEENT: mucous membranes moist Respiratory/Chest: lungs clear, other - O2 by nasal cannula Cardiovascular: normal rate Abdomen: soft, non tender, other - GT feeding Extremities: other - decreasing edema Neurologic/Psychiatric: other - sleeping Laboratory Tests Test 11/11/20 11:50 11/12/20 08:39 Prothrombin Time 11.4 SEC (9.30-11.50) Prothromb Time International Ratio 1.0 (0.9-1.1) Activated Partial Thromboplast Time 27 SEC (23-33) Arterial Blood pH 7.393 (7.350-7.450) Arterial Blood Partial Pressure CO2 65.4 mmHg (35.0-45.0) *H Arterial Blood Partial Pressure O2 89.1 mmHg (75.0-100.0) Arterial Blood HCO3 39.0 mmol/L (22.0-26.0) H Arterial Blood Oxygen Saturation 96.1 % (95-100) Arterial Blood Base Excess 12.3 (-2-2) *H Gallo Test Positive Current Medications Medications (Trade) Dose Ordered Sig/Yolanda Route PRN Reason Start Time Stop Time Status Last Admin Dose Admin Acetaminophen (Tylenol) 650 mg Q4H PRN ORAL Pain Scale (6-10) 10/17/20 19:15 11/16/20 19:14 Acetaminophen (Tylenol) 650 mg Q6H PRN GT Mild Pain (Pain Scale 1-3) 11/04/20 10:45 12/04/20 10:44 11/04/20 18:20 Acetaminophen (Tylenol) 650 mg Q6H PRN GT Temp >100.5 11/04/20 10:45 12/04/20 10:44 Apixaban (Eliquis) 2.5 mg BID ORAL 10/24/20 18:00 01/22/21 17:59 11/12/20 08:18 Chlorhexidine Gluconate (Eve-Hex 2%) 1 applic DAILY@2000 TOPIC 10/22/20 20:00 01/20/21 19:59 11/11/20 21:03 Digoxin (Lanoxin) 0.125 mg DAILY GT 10/30/20 09:00 01/28/21 08:59 11/12/20 08:18 Haloperidol Lactate 5 mg/ Dextrose 56 ml @ 224 mls/hr Q6H PRN IVPB Agitation 11/04/20 20:30 12/19/20 20:29 11/07/20 21:16 Levalbuterol HCl (Xopenex) 1.25 mg Q8HRT HHN 11/08/20 09:30 11/13/20 12:59 11/12/20 08:37 Levofloxacin (Levaquin) 750 mg EVERY OTHER DAY GT 11/08/20 09:00 11/15/20 08:59 11/12/20 08:18 Levothyroxine Sodium (Synthroid) 50 mcg DAILY@0630 ORAL 10/19/20 06:30 11/18/20 06:29 11/12/20 06:33 Ondansetron HCl (Zofran) 4 mg Q6H PRN IVP Nausea & Vomiting 10/17/20 21:15 11/16/20 21:14 Pantoprazole (Protonix) 40 mg Q12HR IVP 11/02/20 21:00 11/25/20 20:59 11/12/20 08:17 Vitamin D (Vitamin D) 3,000 unit DAILY GT 11/12/20 09:00 12/12/20 08:59 11/12/20 08:17 Luis Alvarado MD Nov 12, 2020 11:41
--- NOTE | 2020-11-12 12:14 | Nephrology Progress Note ---
Assessment/Plan Problem List: (1) Acute kidney injury (2) Anemia (3) Hyperkalemia (4) Elevated troponin (5) Pneumonia due to COVID-19 virus (6) Hypothyroidism Assessment Plan November 12: Discussed with RN. On BiPAP. ABG labs and medication list reviewed. Patient full code. Continue per pulmonary. November 11: Remains on BiPAP. Labs reviewed. Serum sodium lower. Potassium stable. Continue per consultants. November 10: On BiPAP. ABG reviewed. On Diamox. Serum sodium rising. 1 L D5W given. Continue to monitor renal parameters. Low vitamin D level of 13 addressed. November 09: Patient getting started on BiPAP. Is retaining CO2. Discussed with . We will start Diamox. Continue to monitor renal parameters. November 08: On oxygen mask. Labs reviewed. Patient full code. Continues to be extubated. Continue pulmonary toilet. Monitor renal parameters. Discussed with RN. Serum creatinine 1.6 at its lowest. November 07: Patient remains on nasal cannula. Full code. Labs reviewed. Low magnesium addressed. Discussed with SERGIO Wilkerson. Continue present care. November 06: Patient is now extubated. Labs reviewed. Medication list reviewed. Serum creatinine stable. Continue post extubation care. November 05: Mental status improved. Labs and medication list reviewed. Serum creatinine 2.2. Weaning trial in process. Continue per consultants. November 04: Full code. Intubated. Labs reviewed. Low potassium addressed. Serum creatinine stable 2.3. Continue per consultants. Weaning as possible. November 03: Remains full code. Remains intubated. FiO2 30%. Discussed with RN. Low potassium addressed. Patient remains on Lasix. Continue to monitor renal parameters. Serum creatinine slightly rising. November 02: Patient remains intubated on ventilator. FiO2 30%. Labs reviewed. Low potassium addressed. Medication list reviewed. Patient on Lasix 40 mg every 8 hours. Serum creatinine higher to 2.3. Feeding changed to Nepro. Potassium supplement given. Continue to monitor renal parameters. November 01: Seen in ICU. Now intubated on ventilator. Discussed with RN. Labs results noted. Abnormal electrolytes addressed. Discussed with RN. Continue per consultants. October 31: Patient seen in ICU. Discussed with SERGIO Miller. ABG noted. Patient acidotic. Being transfused. Potassium is being replaced. Due for another ABG and possible intubation if needed. Conferred with pulmonary and cardiology. October 30: Labs reviewed. Potassium elevated. Kayexalate ordered. Continue to monitor hemoglobin hematocrit and renal parameters. Serum creatinine 2.1. Remains on BiPAP. October 29: Seen in ICU. Discussed with SERGIO Wilkerson. Hemoglobin low. Transfuse 1 unit of packed RBCs. Potassium supplements IV given. Midodrine discontinued. Serum creatinine 2.2 stable. Patient remains on BiPAP. Continue per consultants. Continue to monitor hemoglobin hematocrit electrolytes and renal parameters. October 28: Seen in ICU. Remains on BiPAP. Low potassium and low magnesium addressed. Serum creatinine plateaued at 2.2. Continue per current treatment plan. October 27: Patient in ICU. On BiPAP. Serum creatinine rising. Blood pressure more stable. Will give 100 mg Lasix IV push with the hope of reversing oliguria. Medication list reviewed. Continue to monitor renal parameters. October 26: Seen in ICU. On pressors for low blood pressure. Serum creatinine 2.1. Albumin bolus given. Stress dose of steroids initiated. Continue to monitor renal parameters. Continue per consultants. October 25: Patient seen and examined. Trendelenburg. Blood pressure low. Tachycardic. Discussed with RN. Patient to be transferred to ICU. Discussed with ICU charge nurse and hospital charge nurse. Meanwhile patient started on Albumin bolus and 100 cc an hour D5 normal saline. Patient to be started on pressors while in ICU. Patient full code. October 24: No CHEM panel drawn today.. Renal parameters stable. Patient had a GT placed yesterday. Will check labs tomorrow. Medication list reviewed. October 23: Labs reviewed. Renal parameters unchanged. Creatinine 1.9. Continue current management. Medication list reviewed. October 22: Labs reviewed. Serum creatinine lower at 1.8. Patient started on clear liquid. Patient refuses p.o. medications and food at times. Continue per consultants. October 21: Labs reviewed. Serum creatinine unchanged. Continue per consultants. Continue to monitor renal parameters. October 20: Today's labs reviewed. Serum creatinine unchanged. RN reports patient not taking any p.o. meds. Continue per consultants. Serum creatinine appears to be baseline. October 19: Today's labs still not done yet. RN informed. Albumin bolus given again. Continue to monitor electrolytes and renal parameters. Per orders October 18: Patient hypotensive. Due for blood transfusion. Will give albumin bolus. Continue to monitor renal parameters and electrolytes. Labs and medication list reviewed Subjective ROS Limited/Unobtainable: Yes Objective Objective Last 24 Hour Vital Signs Date Time Temp Pulse Resp B/P (MAP) Pulse Ox O2 Delivery O2 Flow Rate FiO2 11/12/20 12:00 Bi-pap Bi-pap 11/12/20 12:00 3.0 11/12/20 12:00 98.2 91 11 113/55 (74) 99 11/12/20 11:30 93 22 122/56 (78) 100 11/12/20 11:00 91 29 114/57 (76) 100 11/12/20 10:00 84 20 123/68 (86) 98 11/12/20 09:00 76 16 147/54 (85) 99 11/12/20 08:18 82 11/12/20 08:00 Bi-pap Bi-pap 11/12/20 08:00 30 11/12/20 08:00 98.0 82 25 119/46 (70) 99 11/12/20 07:50 93 11/12/20 07:00 83 23 141/54 (83) 99 11/12/20 06:30 77 22 91/47 (62) 100 11/12/20 06:18 82 23 102/43 (62) 100 11/12/20 06:00 82 23 130/55 (80) 99 11/12/20 05:30 83 21 127/45 (72) 99 11/12/20 05:01 97 22 99 30 11/12/20 05:00 83 21 132/62 (85) 99 11/12/20 04:30 85 22 117/48 (71) 100 11/12/20 04:00 91 11/12/20 04:00 Bi-pap Bi-pap 11/12/20 04:00 35 11/12/20 04:00 83 23 125/72 (89) 99 11/12/20 03:30 89 20 111/51 (71) 97 11/12/20 03:00 98 33 99 30 11/12/20 03:00 86 26 122/50 (74) 100 11/12/20 03:00 86 26 100 11/12/20 02:30 86 25 128/54 (78) 98 11/12/20 02:00 86 26 132/59 (83) 99 3/18/21 01:39 98 24 99 30 11/12/20 01:30 86 26 122/64 (83) 99 11/12/20 01:00 88 11 137/49 (78) 99 11/12/20 00:30 86 24 136/64 (88) 98 11/12/20 00:00 35 11/12/20 00:00 Bi-pap Bi-pap 11/12/20 00:00 74 11/12/20 00:00 86 26 135/73 (93) 98 11/11/20 23:30 83 25 124/63 (83) 99 11/11/20 23:00 85 22 117/46 (69) 98 11/11/20 22:50 98 28 98 30 11/11/20 22:49 88 26 100 Bi-Pap 35 75 25 98 11/11/20 22:30 85 26 122/47 (72) 97 11/11/20 22:00 83 29 120/57 (78) 98 11/11/20 21:30 88 22 146/59 (88) 99 11/11/20 21:00 90 22 136/54 (81) 99 11/11/20 21:00 82 24 98 30 11/11/20 20:30 86 21 119/66 (83) 98 11/11/20 20:00 35 11/11/20 20:00 Bi-pap Bi-pap 11/11/20 20:00 85 11/11/20 20:00 97.6 88 26 136/50 (78) 98 11/11/20 19:30 86 22 124/57 (79) 100 11/11/20 19:06 86 29 98 30 11/11/20 19:05 99 Bi-Pap 30 11/11/20 19:00 94 14 131/45 (73) 96 11/11/20 18:30 83 22 103/43 (63) 97 11/11/20 18:00 87 27 122/52 (75) 97 11/11/20 17:30 91 29 135/60 (85) 100 11/11/20 17:17 82 27 100 30 11/11/20 17:00 88 17 116/65 (82) 100 11/11/20 16:30 89 17 123/56 (78) 100 11/11/20 16:00 35 11/11/20 16:00 Bi-pap Bi-pap 11/11/20 16:00 98.8 86 20 122/44 (70) 100 11/11/20 16:00 99 11/11/20 15:52 85 26 100 Bi-Pap 35 82 26 99 11/11/20 15:52 82 26 99 35 11/11/20 15:30 87 11 143/56 (85) 99 11/11/20 15:00 87 9 118/50 (72) 98 11/11/20 14:30 88 37 111/52 (71) 99 11/11/20 14:00 85 25 98/48 (65) 98 11/11/20 13:32 85 34 94 35 11/11/20 13:30 86 15 120/51 (74) 89 11/11/20 13:00 80 23 102/42 (62) 99 11/11/20 12:30 80 25 125/60 (81) 99 Intake and Output 11/11/20 11/12/20 19:00 07:00 Intake Total 580 ml 480 ml Output Total 625 ml 350 ml Balance -45 ml 130 ml Free Water 100 ml Tube Feeding 480 ml 480 ml Output Urine Total 575 ml 350 ml Stool Total 50 ml Current Medications Medications (Trade) Dose Ordered Sig/Yolanda Route PRN Reason Start Time Stop Time Status Last Admin Dose Admin Acetaminophen (Tylenol) 650 mg Q6H PRN GT Mild Pain (Pain Scale 1-3) 11/04/20 10:45 12/04/20 10:44 11/04/20 18:20 Acetaminophen (Tylenol) 650 mg Q6H PRN GT Temp >100.5 11/04/20 10:45 12/04/20 10:44 Apixaban (Eliquis) 2.5 mg BID GT 11/12/20 18:00 01/22/21 17:59 Chlorhexidine Gluconate (Eve-Hex 2%) 1 applic DAILY@2000 TOPIC 10/22/20 20:00 01/20/21 19:59 11/11/20 21:03 Digoxin (Lanoxin) 0.125 mg DAILY GT 10/30/20 09:00 01/28/21 08:59 11/12/20 08:18 Haloperidol Lactate 5 mg/ Dextrose 56 ml @ 224 mls/hr Q6H PRN IVPB Agitation 11/04/20 20:30 12/19/20 20:29 11/07/20 21:16 Levalbuterol HCl (Xopenex) 1.25 mg Q8HRT HHN 11/08/20 09:30 11/13/20 12:59 11/12/20 08:37 Levothyroxine Sodium (Synthroid) 50 mcg DAILY@0630 ORAL 10/19/20 06:30 11/18/20 06:29 11/12/20 06:33 Ondansetron HCl (Zofran) 4 mg Q6H PRN IVP Nausea & Vomiting 10/17/20 21:15 11/16/20 21:14 Pantoprazole (Protonix) 40 mg Q12HR IVP 11/02/20 21:00 11/25/20 20:59 11/12/20 08:17 Vitamin D (Vitamin D) 3,000 unit DAILY GT 11/12/20 09:00 12/12/20 08:59 11/12/20 08:17 Laboratory Tests 11/12/20 08:39: Arterial Blood pH 7.393, Arterial Blood Partial Pressure CO2 65.4*H, Arterial Blood Partial Pressure O2 89.1, Arterial Blood HCO3 39.0H, Arterial Blood Oxygen Saturation 96.1, Arterial Blood Base Excess 12.3*H, Gallo Test Positive 11/12/20 11:48: POC Whole Blood Glucose 92 Height (Feet): 5 Height (Inches): 0.00 Weight (Pounds): 145 General Appearance: mild distress EENT: other - Was on BiPAP when seen this morning Cardiovascular: tachycardia Respiratory/Chest: decreased breath sounds Abdomen: distended Dustin Gómez MD Nov 12, 2020 12:14
--- NOTE | 2020-11-12 12:30 | NUR ---
NURSE NOTES: DARREN Lara made aware regarding latest ABG results while patient is on 2L nasal cannula. Patient is now back on bipap 16/5 FiO2 24%.
--- NOTE | 2020-11-12 13:03 | Surgery Progress Note ---
Surgery Progress Note Subjective Procedure Performed left subclavian central venous catheter insertion Additional Comments off bipap no n/v labs noted seemingly improving Objective Last 24 Hour Vital Signs Date Time Temp Pulse Resp B/P (MAP) Pulse Ox O2 Delivery O2 Flow Rate FiO2 11/12/20 13:01 35 11/12/20 12:28 24 11/12/20 12:27 2.0 11/12/20 12:00 Nasal Cannula 2.0 Nasal Cannula 2.0 11/12/20 12:00 2.0 11/12/20 12:00 98.2 91 11 113/55 (74) 99 11/12/20 12:00 97 11/12/20 11:30 93 22 122/56 (78) 100 11/12/20 11:20 2.0 11/12/20 11:00 91 29 114/57 (76) 100 11/12/20 10:00 84 20 123/68 (86) 98 11/12/20 09:00 76 16 147/54 (85) 99 11/12/20 08:18 82 11/12/20 08:00 Bi-pap Bi-pap 11/12/20 08:00 30 11/12/20 08:00 98.0 82 25 119/46 (70) 99 11/12/20 07:50 93 11/12/20 07:00 83 23 141/54 (83) 99 11/12/20 06:30 77 22 91/47 (62) 100 11/12/20 06:18 82 23 102/43 (62) 100 11/12/20 06:00 82 23 130/55 (80) 99 11/12/20 05:30 83 21 127/45 (72) 99 11/12/20 05:01 97 22 99 30 11/12/20 05:00 83 21 132/62 (85) 99 11/12/20 04:30 85 22 117/48 (71) 100 11/12/20 04:00 91 11/12/20 04:00 Bi-pap Bi-pap 11/12/20 04:00 35 11/12/20 04:00 83 23 125/72 (89) 99 11/12/20 03:30 89 20 111/51 (71) 97 11/12/20 03:00 98 33 99 30 11/12/20 03:00 86 26 122/50 (74) 100 11/12/20 03:00 86 26 100 11/12/20 02:30 86 25 128/54 (78) 98 11/12/20 02:00 86 26 132/59 (83) 99 11/12/20 01:39 98 24 99 30 11/12/20 01:30 86 26 122/64 (83) 99 11/12/20 01:00 88 11 137/49 (78) 99 11/12/20 00:30 86 24 136/64 (88) 98 11/12/20 00:00 35 11/12/20 00:00 Bi-pap Bi-pap 11/12/20 00:00 74 11/12/20 00:00 86 26 135/73 (93) 98 11/11/20 23:30 83 25 124/63 (83) 99 11/11/20 23:00 85 22 117/46 (69) 98 11/11/20 22:50 98 28 98 30 11/11/20 22:49 88 26 100 Bi-Pap 35 75 25 98 11/11/20 22:30 85 26 122/47 (72) 97 11/11/20 22:00 83 29 120/57 (78) 98 11/11/20 21:30 88 22 146/59 (88) 99 11/11/20 21:00 90 22 136/54 (81) 99 11/11/20 21:00 82 24 98 30 11/11/20 20:30 86 21 119/66 (83) 98 11/11/20 20:00 35 11/11/20 20:00 Bi-pap Bi-pap 11/11/20 20:00 85 11/11/20 20:00 97.6 88 26 136/50 (78) 98 11/11/20 19:30 86 22 124/57 (79) 100 11/11/20 19:06 86 29 98 30 11/11/20 19:05 99 Bi-Pap 30 11/11/20 19:00 94 14 131/45 (73) 96 11/11/20 18:30 83 22 103/43 (63) 97 11/11/20 18:00 87 27 122/52 (75) 97 11/11/20 17:30 91 29 135/60 (85) 100 11/11/20 17:17 82 27 100 30 11/11/20 17:00 88 17 116/65 (82) 100 11/11/20 16:30 89 17 123/56 (78) 100 11/11/20 16:00 35 11/11/20 16:00 Bi-pap Bi-pap 11/11/20 16:00 98.8 86 20 122/44 (70) 100 11/11/20 16:00 99 11/11/20 15:52 85 26 100 Bi-Pap 35 82 26 99 11/11/20 15:52 82 26 99 35 11/11/20 15:30 87 11 143/56 (85) 99 11/11/20 15:00 87 9 118/50 (72) 98 11/11/20 14:30 88 37 111/52 (71) 99 11/11/20 14:00 85 25 98/48 (65) 98 11/11/20 13:32 85 34 94 35 11/11/20 13:30 86 15 120/51 (74) 89 I&O Intake and Output 11/11/20 11/12/20 19:00 07:00 Intake Total 580 ml 480 ml Output Total 625 ml 350 ml Balance -45 ml 130 ml Free Water 100 ml Tube Feeding 480 ml 480 ml Output Urine Total 575 ml 350 ml Stool Total 50 ml Dressing: dry Cardiovascular: RSR Respiratory: decreased breath sounds Abdomen: soft, flat, non-tender, present bowel sounds, non-distended Extremities: no edema, no tenderness, no cyanosis Laboratory Tests Test 11/12/20 08:39 11/12/20 11:48 11/12/20 12:10 Arterial Blood pH 7.393 (7.350-7.450) 7.307 (7.350-7.450) Arterial Blood Partial Pressure CO2 65.4 mmHg (35.0-45.0) *H 84.5 mmHg (35.0-45.0) *H Arterial Blood Partial Pressure O2 89.1 mmHg (75.0-100.0) 128.1 mmHg (75.0-100.0) H Arterial Blood HCO3 39.0 mmol/L (22.0-26.0) H 41.3 mmol/L (22.0-26.0) *H Arterial Blood Oxygen Saturation 96.1 % (95-100) 97.8 % (95-100) Arterial Blood Base Excess 12.3 (-2-2) *H 12.6 (-2-2) *H Gallo Test Positive Positive POC Whole Blood Glucose 92 MG/DL (74-106) Plan Problems: (1) Anemia (2) Acute kidney injury (3) Atrial fibrillation (4) Hyperkalemia (5) Elevated troponin (6) Decubitus skin ulcer Assessment & Plan: Pt presented on admission with Multiple Medical Comorbidities including Covid-19 and Pressure Injuries. Primary Nurse reported Pt has been declining food and medications. Sacral DTPI that is evolving noted to Sacrum(L)6cm x (W)12.5cm.. Scattered Purpuric areas that are indurated noted to R and L cheek. Small wound that is 100% slough (L)0.6cm x (W)0.7cm noted at sacrococcygeal area within base of DTPI. MASD noted to Perineum and skin folds of Medial/posterior aspects of Both upper thighs. Affected areas are erythematous and macerated with scattered satellite lesions. DTPI L Heel (L)3cm x (W)4cm, Base of heel is maroon and fluctuant with small purpuric area (L)0.4cm x (W)0.9cm within base of DTPI. l Foot including toes are mottled and cool to touch. L Heel is boggy. L Heel including toes are Mottled and cool to touch. Tx.Plan: Apply Moisture Barrier Paste to Sacrum. Cover with Optifoam drsg.Change every 3 days and prn. Apply Moisture Barrier Paste to abdominal folds, Perineum and skin folds of both upper thighs. Apply Cavilon Skin Barrier to both heels. Cover each Heel with Optifoam drsg. Change every 7 days and prn. Reposition at least every 2hours or as tolerated. Off-load heels with pillow. (7) Malnutrition Assessment & Plan: She was able to self feed on right hand and took a bite of popsicle and tolerated without s.s of aspiration. After 1st bite, then she refused 2nd bite. After this was done, I offered her a cup of cranberry juice, she took few sips and tolerated without s.s of aspiration. I continued to offer but she refused further PO. A: 1. Functional swallow 2. Failure to thrive 3. abnormal electrolytes in setting of heart failure, NSTEMI, elevated BNP, etc.. P/Rec. 1. Pureed and thin liquid 2.3. Goal of care discussion DAILY ESTIMATED NEEDS: Needs based on Cardiac, pulmonary/ 51kg abw 25-30 kcals/kg 5726-2210 total kcals 1-1.5 g protein/kg 51-76 g total protein 20-25 mL/kg 0254-8931 total fluid mLs NUTRITION DIAGNOSIS: Swallowing difficulty R/T dysphagia, decreased cognitive fxn as evidenced by MEDICARE COMPLIANCE AUDITOR recommends pureed moist texture diet at this time. CURRENT DIET:NPO PO DIET RECOMMENDATIONS: Liberalized REGULAR w/ poor PO (texture per MEDICARE COMPLIANCE AUDITOR) ADDITIONAL RECOMMENDATIONS: * Calibrated bedscale wt * Monitor PO intake: refusing meds and foods at this time -> rec nonoral feeds w/ continued refusal of PO if part of POC * LOW NA diet w/ PO intake consistently >50% * 4 oz Ensure TID w/ meals (4oz at this time due to poor acceptance, may increase to 8oz w/ good acceptance) (8) Pneumonia due to COVID-19 virus Assessment & Plan: here appears to be increased left pleural fluid and generalized hazy parenchymal opacity, left greater than right. Heart remains enlarged Impression: Increased left pleural effusion Suspect increasing bilateral left greater than right pulmonary edema versus infiltrates worsening intubated on vent weaned extubated (9) Hypothyroidism Jim Orosco Nov 12, 2020 13:03
--- NOTE | 2020-11-12 13:10 | General Progress Note ---
Subjective ROS Limited/Unobtainable: No Allergies: Coded Allergies: No Known Allergies (Unverified , 10/17/20) Subjective intubated now Objective Last 24 Hour Vital Signs Date Time Temp Pulse Resp B/P (MAP) Pulse Ox O2 Delivery O2 Flow Rate FiO2 11/12/20 13:01 35 11/12/20 13:00 85 17 100/41 (60) 90 11/12/20 12:28 24 11/12/20 12:27 2.0 11/12/20 12:00 Nasal Cannula 2.0 Nasal Cannula 2.0 11/12/20 12:00 2.0 11/12/20 12:00 98.2 91 11 113/55 (74) 99 11/12/20 12:00 97 11/12/20 11:30 93 22 122/56 (78) 100 11/12/20 11:20 2.0 11/12/20 11:00 91 29 114/57 (76) 100 11/12/20 10:00 84 20 123/68 (86) 98 11/12/20 09:00 76 16 147/54 (85) 99 11/12/20 08:18 82 11/12/20 08:00 Bi-pap Bi-pap 11/12/20 08:00 30 11/12/20 08:00 98.0 82 25 119/46 (70) 99 11/12/20 07:50 93 11/12/20 07:00 83 23 141/54 (83) 99 11/12/20 06:30 77 22 91/47 (62) 100 11/12/20 06:18 82 23 102/43 (62) 100 11/12/20 06:00 82 23 130/55 (80) 99 11/12/20 05:30 83 21 127/45 (72) 99 11/12/20 05:01 97 22 99 30 11/12/20 05:00 83 21 132/62 (85) 99 11/12/20 04:30 85 22 117/48 (71) 100 11/12/20 04:00 91 11/12/20 04:00 Bi-pap Bi-pap 11/12/20 04:00 35 11/12/20 04:00 83 23 125/72 (89) 99 11/12/20 03:30 89 20 111/51 (71) 97 11/12/20 03:00 98 33 99 30 11/12/20 03:00 86 26 122/50 (74) 100 11/12/20 03:00 86 26 100 11/12/20 02:30 86 25 128/54 (78) 98 11/12/20 02:00 86 26 132/59 (83) 99 11/12/20 01:39 98 24 99 30 11/12/20 01:30 86 26 122/64 (83) 99 11/12/20 01:00 88 11 137/49 (78) 99 11/12/20 00:30 86 24 136/64 (88) 98 11/12/20 00:00 35 11/12/20 00:00 Bi-pap Bi-pap 11/12/20 00:00 74 11/12/20 00:00 86 26 135/73 (93) 98 11/11/20 23:30 83 25 124/63 (83) 99 11/11/20 23:00 85 22 117/46 (69) 98 11/11/20 22:50 98 28 98 30 11/11/20 22:49 88 26 100 Bi-Pap 35 75 25 98 11/11/20 22:30 85 26 122/47 (72) 97 11/11/20 22:00 83 29 120/57 (78) 98 11/11/20 21:30 88 22 146/59 (88) 99 11/11/20 21:00 90 22 136/54 (81) 99 11/11/20 21:00 82 24 98 30 11/11/20 20:30 86 21 119/66 (83) 98 11/11/20 20:00 35 11/11/20 20:00 Bi-pap Bi-pap 11/11/20 20:00 85 11/11/20 20:00 97.6 88 26 136/50 (78) 98 11/11/20 19:30 86 22 124/57 (79) 100 11/11/20 19:06 86 29 98 30 11/11/20 19:05 99 Bi-Pap 30 11/11/20 19:00 94 14 131/45 (73) 96 11/11/20 18:30 83 22 103/43 (63) 97 11/11/20 18:00 87 27 122/52 (75) 97 11/11/20 17:30 91 29 135/60 (85) 100 11/11/20 17:17 82 27 100 30 11/11/20 17:00 88 17 116/65 (82) 100 11/11/20 16:30 89 17 123/56 (78) 100 11/11/20 16:00 35 11/11/20 16:00 Bi-pap Bi-pap 11/11/20 16:00 98.8 86 20 122/44 (70) 100 11/11/20 16:00 99 11/11/20 15:52 85 26 100 Bi-Pap 35 82 26 99 11/11/20 15:52 82 26 99 35 11/11/20 15:30 87 11 143/56 (85) 99 11/11/20 15:00 87 9 118/50 (72) 98 11/11/20 14:30 88 37 111/52 (71) 99 11/11/20 14:00 85 25 98/48 (65) 98 11/11/20 13:32 85 34 94 35 11/11/20 13:30 86 15 120/51 (74) 89 Intake and Output 11/11/20 11/12/20 19:00 07:00 Intake Total 580 ml 480 ml Output Total 625 ml 350 ml Balance -45 ml 130 ml Free Water 100 ml Tube Feeding 480 ml 480 ml Output Urine Total 575 ml 350 ml Stool Total 50 ml Laboratory Tests 11/12/20 08:39: Arterial Blood pH 7.393, Arterial Blood Partial Pressure CO2 65.4*H, Arterial Blood Partial Pressure O2 89.1, Arterial Blood HCO3 39.0H, Arterial Blood Oxygen Saturation 96.1, Arterial Blood Base Excess 12.3*H, Gallo Test Positive 11/12/20 11:48: POC Whole Blood Glucose 92 11/12/20 12:10: Arterial Blood pH 7.307L, Arterial Blood Partial Pressure CO2 84.5*H, Arterial Blood Partial Pressure O2 128.1H, Arterial Blood HCO3 41.3*H, Arterial Blood Oxygen Saturation 97.8, Arterial Blood Base Excess 12.6*H, Gallo Test Positive Height (Feet): 5 Height (Inches): 0.00 Weight (Pounds): 145 General Appearance: no apparent distress EENT: normal ENT inspection Neck: supple Cardiovascular: normal rate Respiratory/Chest: decreased breath sounds Abdomen: normal bowel sounds, non tender, soft Extremities: non-tender Assessment/Plan Problem List: (1) Hypothyroidism ICD Codes: E03.9 - Hypothyroidism, unspecified SNOMED: 01728114 (2) Pneumonia due to COVID-19 virus ICD Codes: U07.1 - COVID-19; J12.82 - Pneumonia due to coronavirus disease 2019 SNOMED: 213535330815879498 (3) Malnutrition ICD Codes: E46 - Unspecified protein-calorie malnutrition SNOMED: 92297047 (4) Decubitus skin ulcer ICD Codes: L89.90 - Pressure ulcer of unspecified site, unspecified stage SNOMED: 122364553 (5) Elevated troponin ICD Codes: R77.8 - Other specified abnormalities of plasma proteins SNOMED: 580357036, 149629787, 485140738 (6) Atrial fibrillation ICD Codes: I48.91 - Unspecified atrial fibrillation SNOMED: 18482649 (7) Anemia ICD Codes: D64.9 - Anemia, unspecified SNOMED: 582472032 Status: progressing, unchanged Assessment/Plan: GTF fu cardiology fu pulm labs for AM monitor for residuals Skyler Tobar MD Nov 12, 2020 13:10
--- NOTE | 2020-11-12 13:40 | NUR ---
*-*DISCHARGE PANNING*-* PATIENT HAS BEEN REFERRED TO: [facility] ([facility]) P: [phone] S/W DHEERAJ, HAS TO SEE IF CAN BE CLEARED BY INSURANCE, WILL CALL BACK AFTER REVIEW.
--- NOTE | 2020-11-12 13:44 | NUR ---
*-*DISCHARGE PANNING*-* PATIENT HAS BEEN REFERRED TO: [facility] ([facility]) P: [phone] PLACED MULTIPLE CALL, NO ANSWER, UNABLE TO LEAVE VOICE MESSAGE.
--- NOTE | 2020-11-12 16:40 | Cardiac Electrophysiology PN ---
Assessment/Plan Assessment/Plan 1. NSTEMI with elevated troponin of more than 0.2 and hx of prior [place] The level has come down to 0.19, but the levels are flat and likely due to renal failure as the creatinine is 2.1. On aspirin and off Lopressor as hypotensive 2. Atrial fibrillation with rapid ventricular response. Off Lopressor for low BP On Dig 0.125 PEG daily and Eliquis 2.5 bid. Dig level 1.7 3. Respiratory failure , Extubated 11/06/20. On Diamox and BIPAP Likely will need tracheostomy 4. S/P Septic shock, off Levophed 5. Renal insufficiency. BUN 52/ Cr 1.3. On Diamox 6. Status post COVID pneumonia, was tested positive more than two weeks ago. Now is Covid negative 7. Dysphagia, S/P PEG 10/23/[address] code[address] DW Dr. Gómez Subjective Subjective In ICU off pressors. Covid negative 10/25 and is off isolation In atrial fib Dig level 1.7 Extubated 11/06/20. Back on BIPAP Objective Last 24 Hour Vital Signs Date Time Temp Pulse Resp B/P (MAP) Pulse Ox O2 Delivery O2 Flow Rate FiO2 11/12/20 16:00 Bi-pap Bi-pap 11/12/20 16:00 98.0 88 21 104/56 (72) 100 11/12/20 15:41 94 22 99 Bi-Pap 30 96 24 100 11/12/20 15:03 98 11/12/20 15:00 89 23 100/34 (56) 99 11/12/20 14:00 83 20 106/42 (63) 97 11/12/20 13:48 30 11/12/20 13:01 35 11/12/20 13:00 85 17 100/41 (60) 90 11/12/20 12:29 98 26 95 30 11/12/20 12:28 24 11/12/20 12:27 2.0 11/12/20 12:00 Nasal Cannula 2.0 Nasal Cannula 2.0 11/12/20 12:00 2.0 11/12/20 12:00 98.2 91 11 113/55 (74) 99 11/12/20 12:00 97 11/12/20 11:30 93 22 122/56 (78) 100 11/12/20 11:20 2.0 11/12/20 11:01 99 11/12/20 11:00 91 29 114/57 (76) 100 11/12/20 10:00 84 20 123/68 (86) 98 11/12/20 09:00 76 16 147/54 (85) 99 11/12/20 08:18 82 11/12/20 08:00 Bi-pap Bi-pap 11/12/20 08:00 30 11/12/20 08:00 98.0 82 25 119/46 (70) 99 11/12/20 07:59 80 16 100 Bi-Pap 30 86 25 100 11/12/20 07:57 100 Bi-Pap 30 11/12/20 07:50 93 11/12/20 07:00 83 23 141/54 (83) 99 11/12/20 06:30 77 22 91/47 (62) 100 11/12/20 06:18 82 23 102/43 (62) 100 11/12/20 06:00 82 23 130/55 (80) 99 11/12/20 05:30 83 21 127/45 (72) 99 11/12/20 05:01 97 22 99 30 11/12/20 05:00 83 21 132/62 (85) 99 11/12/20 04:30 85 22 117/48 (71) 100 11/12/20 04:00 91 11/12/20 04:00 Bi-pap Bi-pap 11/12/20 04:00 35 11/12/20 04:00 83 23 125/72 (89) 99 11/12/20 03:30 89 20 111/51 (71) 97 11/12/20 03:00 98 33 99 30 11/12/20 03:00 86 26 122/50 (74) 100 11/12/20 03:00 86 26 100 11/12/20 02:30 86 25 128/54 (78) 98 11/12/20 02:00 86 26 132/59 (83) 99 11/12/20 01:39 98 24 99 30 11/12/20 01:30 86 26 122/64 (83) 99 11/12/20 01:00 88 11 137/49 (78) 99 11/12/20 00:30 86 24 136/64 (88) 98 11/12/20 00:00 35 11/12/20 00:00 Bi-pap Bi-pap 11/12/20 00:00 74 11/12/20 00:00 86 26 135/73 (93) 98 11/11/20 23:30 83 25 124/63 (83) 99 11/11/20 23:00 85 22 117/46 (69) 98 11/11/20 22:50 98 28 98 30 11/11/20 22:49 88 26 100 Bi-Pap 35 75 25 98 11/11/20 22:30 85 26 122/47 (72) 97 11/11/20 22:00 83 29 120/57 (78) 98 11/11/20 21:30 88 22 146/59 (88) 99 11/11/20 21:00 90 22 136/54 (81) 99 11/11/20 21:00 82 24 98 30 11/11/20 20:30 86 21 119/66 (83) 98 11/11/20 20:00 35 11/11/20 20:00 Bi-pap Bi-pap 11/11/20 20:00 85 11/11/20 20:00 97.6 88 26 136/50 (78) 98 11/11/20 19:30 86 22 124/57 (79) 100 11/11/20 19:06 86 29 98 30 11/11/20 19:05 99 Bi-Pap 30 11/11/20 19:00 94 14 131/45 (73) 96 11/11/20 18:30 83 22 103/43 (63) 97 11/11/20 18:00 87 27 122/52 (75) 97 11/11/20 17:30 91 29 135/60 (85) 100 11/11/20 17:17 82 27 100 30 11/11/20 17:00 88 17 116/65 (82) 100 Intake and Output 11/11/20 11/12/20 19:00 07:00 Intake Total 580 ml 480 ml Output Total 625 ml 350 ml Balance -45 ml 130 ml Free Water 100 ml Tube Feeding 480 ml 480 ml Output Urine Total 575 ml 350 ml Stool Total 50 ml Laboratory Tests Test 11/12/20 08:39 11/12/20 11:48 11/12/20 12:10 Arterial Blood pH 7.393 (7.350-7.450) 7.307 (7.350-7.450) Arterial Blood Partial Pressure CO2 65.4 mmHg (35.0-45.0) *H 84.5 mmHg (35.0-45.0) *H Arterial Blood Partial Pressure O2 89.1 mmHg (75.0-100.0) 128.1 mmHg (75.0-100.0) H Arterial Blood HCO3 39.0 mmol/L (22.0-26.0) H 41.3 mmol/L (22.0-26.0) *H Arterial Blood Oxygen Saturation 96.1 % (95-100) 97.8 % (95-100) Arterial Blood Base Excess 12.3 (-2-2) *H 12.6 (-2-2) *H Gallo Test Positive Positive POC Whole Blood Glucose 92 MG/DL (74-106) Objective HEAD AND NECK: No JVD. LUNGS: Decreased breath sounds. CARDIOVASCULAR: Irregular S1 and S2 with no gallop. ABDOMEN: Soft.S/P PEG EXTREMITIES: No pitting edema. Terry Reyes MD Nov 12, 2020 16:40
[2020-11-12] MEDS: Eliquis 2.5mg tablet GT SCH (17:29)
--- NOTE | 2020-11-12 19:05 | NUR ---
Received report from SERGIO Miller and assumed care of patient. Patient appears to be resting comfortably in bed on BIPAP. Patient opens eyes to voice. Patient is no acute distress, VS stable on monitor, TF infusing.
--- NOTE | 2020-11-12 19:14 | NUR ---
NURSE HAND-OFF REPORT: Latest Vital Signs: Temperature 98.0 , Pulse 87 , B/P 112 /50 , Respiratory Rate 19 , O2 SAT 100, Bipap 16/5 FiO2 30%. EKG Rhythm: Atrial Fibrillation Rhythm change?: N Latest Elizabeth Fall Score: 50 Fall Risk: High Risk Safety Measures: Call light Within Reach, Bed Alarm Zone 1, Side Rails Side Rails x3, Bed position Low and Locked. Fall Precautions: Yellow Socks Patient Fall Education Report given to Katy Valdes RN.
--- NOTE | 2020-11-12 20:30 | NUR ---
Assessment completed. Pt VSS on BIPAP. Patient in No acute distress. See charting for details related to assessment findings. Medications administered per eMAR. Pt voiding via Green catheter. Green and Rectal tube are both patent. Will continue to monitor the patient.
--- NOTE | 2020-11-12 20:43 | General Progress Note ---
Subjective ROS Limited/Unobtainable: Yes Allergies: Coded Allergies: No Known Allergies (Unverified , 10/17/20) Objective Last 24 Hour Vital Signs Date Time Temp Pulse Resp B/P (MAP) Pulse Ox O2 Delivery O2 Flow Rate FiO2 11/12/20 20:00 98.4 92 22 136/95 (109) 99 11/12/20 20:00 30 11/12/20 20:00 Bi-pap Bi-pap 11/12/20 19:20 92 23 100 30 11/12/20 19:19 100 Bi-Pap 30 11/12/20 19:00 87 19 112/50 (70) 100 11/12/20 18:00 91 16 113/50 (71) 98 11/12/20 17:22 93 14 100 30 11/12/20 17:00 90 21 111/71 (84) 100 11/12/20 16:00 Bi-pap Bi-pap 11/12/20 16:00 98.0 88 21 104/56 (72) 100 11/12/20 16:00 30 11/12/20 15:41 94 22 99 Bi-Pap 30 96 24 100 11/12/20 15:03 98 11/12/20 15:00 89 23 100/34 (56) 99 11/12/20 14:00 83 20 106/42 (63) 97 11/12/20 13:48 30 11/12/20 13:01 35 11/12/20 13:00 85 17 100/41 (60) 90 11/12/20 12:29 98 26 95 30 11/12/20 12:28 24 11/12/20 12:27 2.0 11/12/20 12:00 Nasal Cannula 2.0 Nasal Cannula 2.0 11/12/20 12:00 2.0 11/12/20 12:00 98.2 91 11 113/55 (74) 99 11/12/20 12:00 97 11/12/20 11:30 93 22 122/56 (78) 100 11/12/20 11:20 2.0 11/12/20 11:01 99 11/12/20 11:00 91 29 114/57 (76) 100 11/12/20 10:00 84 20 123/68 (86) 98 11/12/20 09:00 76 16 147/54 (85) 99 11/12/20 08:18 82 11/12/20 08:00 Bi-pap Bi-pap 11/12/20 08:00 30 11/12/20 08:00 98.0 82 25 119/46 (70) 99 11/12/20 07:59 80 16 100 Bi-Pap 30 86 25 100 11/12/20 07:57 100 Bi-Pap 30 11/12/20 07:50 93 11/12/20 07:00 83 23 141/54 (83) 99 11/12/20 06:30 77 22 91/47 (62) 100 11/12/20 06:18 82 23 102/43 (62) 100 11/12/20 06:00 82 23 130/55 (80) 99 11/12/20 05:30 83 21 127/45 (72) 99 11/12/20 05:01 97 22 99 30 11/12/20 05:00 83 21 132/62 (85) 99 11/12/20 04:30 85 22 117/48 (71) 100 11/12/20 04:00 91 11/12/20 04:00 Bi-pap Bi-pap 11/12/20 04:00 35 11/12/20 04:00 83 23 125/72 (89) 99 11/12/20 03:30 89 20 111/51 (71) 97 11/12/20 03:00 98 33 99 30 11/12/20 03:00 86 26 122/50 (74) 100 11/12/20 03:00 86 26 100 11/12/20 02:30 86 25 128/54 (78) 98 11/12/20 02:00 86 26 132/59 (83) 99 11/12/20 01:39 98 24 99 30 11/12/20 01:30 86 26 122/64 (83) 99 11/12/20 01:00 88 11 137/49 (78) 99 11/12/20 00:30 86 24 136/64 (88) 98 11/12/20 00:00 35 11/12/20 00:00 Bi-pap Bi-pap 11/12/20 00:00 74 11/12/20 00:00 86 26 135/73 (93) 98 11/11/20 23:30 83 25 124/63 (83) 99 11/11/20 23:00 85 22 117/46 (69) 98 11/11/20 22:50 98 28 98 30 11/11/20 22:49 88 26 100 Bi-Pap 35 75 25 98 11/11/20 22:30 85 26 122/47 (72) 97 11/11/20 22:00 83 29 120/57 (78) 98 11/11/20 21:30 88 22 146/59 (88) 99 11/11/20 21:00 90 22 136/54 (81) 99 11/11/20 21:00 82 24 98 30 Intake and Output 11/11/20 11/12/20 19:00 07:00 Intake Total 580 ml 480 ml Output Total 625 ml 350 ml Balance -45 ml 130 ml Free Water 100 ml Tube Feeding 480 ml 480 ml Output Urine Total 575 ml 350 ml Stool Total 50 ml Laboratory Tests 11/12/20 08:39: Arterial Blood pH 7.393, Arterial Blood Partial Pressure CO2 65.4*H, Arterial Blood Partial Pressure O2 89.1, Arterial Blood HCO3 39.0H, Arterial Blood Oxygen Saturation 96.1, Arterial Blood Base Excess 12.3*H, Gallo Test Positive 11/12/20 11:48: POC Whole Blood Glucose 92 11/12/20 12:10: Arterial Blood pH 7.307L, Arterial Blood Partial Pressure CO2 84.5*H, Arterial B lood Partial Pressure O2 128.1H, Arterial Blood HCO3 41.3*H, Arterial Blood Oxygen Saturation 97.8, Arterial Blood Base Excess 12.6*H, Gallo Test Positive 11/12/20 17:54: POC Whole Blood Glucose 102 Height (Feet): 5 Height (Inches): 0.00 Weight (Pounds): 145 Assessment/Plan Problem List: (1) Anemia ICD Codes: D64.9 - Anemia, unspecified SNOMED: 807527635 (2) Acute kidney injury ICD Codes: N17.9 - Acute kidney failure, unspecified SNOMED: 09862458, 9320352 (3) Atrial fibrillation ICD Codes: I48.91 - Unspecified atrial fibrillation SNOMED: 84790340 (4) Elevated troponin ICD Codes: R77.8 - Other specified abnormalities of plasma proteins SNOMED: 353641739, 340054444, 554451366 (5) Malnutrition ICD Codes: E46 - Unspecified protein-calorie malnutrition SNOMED: 95841821 (6) Pneumonia due to COVID-19 virus ICD Codes: U07.1 - COVID-19; J12.82 - Pneumonia due to coronavirus disease 2019 SNOMED: [id number] (7) Hypothyroidism ICD Codes: E03.9 - Hypothyroidism, unspecified SNOMED: 08578412 Status: progressing, unchanged Assessment/Plan: s/p intubation needed to be back on bipap didtnt tolerated canula hima eval poor prognosis weak azotemia sepsis Neri Dumont MD Nov 12, 2020 20:43
[2020-11-12] MEDS: Dyna-Hex 2% Top Sol 2oz TOPIC SCH (20:48)
--- NOTE | 2020-11-12 22:30 | NUR ---
NO changes in exam. VSS and in NAD
[2020-11-13] VITALS (24 sets, daily range): BP systolic 100–148; BP diastolic 43–77
--- NOTE | 2020-11-13 00:30 | NUR ---
Midnight assessment completed. No changes in assessment findings . Pt remains afebrile and in no acute distress on Bipap machine. Patient continues to have urine output via Green catheter, rectal tube remains patent. Easily arousable. Sleeping. Will continue to monitor.
--- NOTE | 2020-11-13 02:40 | NUR ---
No change in patient condition. VSS and in NAD. Will continue to monitor.
--- NOTE | 2020-11-13 04:30 | NUR ---
0400 assessment completed. patient would not stop disconnecting BIPAP mask so had to place mittens on B hands. VSS, pt in no acute distress. Complete bath provided to patient. Green catheter appears to be leaking. Placed a few additional cc's into balloon. Will monitor.
[2020-11-13 04:43] LABS: HEMATOCRIT 25.3 % (37.0-47.0); HEMOGLOBIN 7.8 G/DL (12.0-16.0); MEAN CORPUSCULAR VOLUME 97 FL (80-99); PLATELET COUNT 112 K/UL (150-450); RED BLOOD COUNT 2.61 M/UL (4.20-5.40); WHITE BLOOD COUNT 4.2 K/UL (4.8-10.8)
[2020-11-13 05:06] LABS: ALBUMIN/GLOBULIN RATIO 0.6 (1.0-2.7); BILIRUBIN,TOTAL 0.5 MG/DL (0.2-1.0); CALCIUM 8.4 MG/DL (8.5-10.1); CREATININE 1.3 MG/DL (0.55-1.30); PHOSPHORUS 3.7 MG/DL (2.5-4.9); POTASSIUM 4.2 MMOL/L (3.5-5.1)
--- NOTE | 2020-11-13 06:30 | NUR ---
No changes in patient condition. Green again appears to be leaking. Removed a total of 10ml of saline from balloon. Placed additional 2ml into balloon for a total of 12ml. No s/s of leak at this time. Will endorse to day shift to monitor for continued leak. Underpad changed and patient is clean and dry.
--- NOTE | 2020-11-13 07:20 | NUR ---
Report given to SERGIO Wilkerson who assumed care of patient.
--- NOTE | 2020-11-13 07:25 | NUR ---
Respiratory note: PT received on BIPAP with current settings: 16/ RR:12, 30% Pt tolerating BIPAP well. No SOB noted. Small old wound noted on bridge of nose. [place] aware. PT is currently on full face mask, unable to change to facial mask due to wound. Will continue to closely monitor.
--- NOTE | 2020-11-13 07:54 | Hematology/Onc Progress Note ---
Assessment/Plan Assessment/Plan Assessment and recs # Pancytopenia likely due to consumption, critical state, r/o infection, remains in the icu --> anemia panel has been ordered-->reviewed --> hgb 8.1->9.3->9.7-->9.5-->10. 5-->10.2-->9.1->8.6-->7.8-->8.1-->9.2-->8.7-->9.1 --> wbc 2.7 --> no hemolysis is noted --> transfuse on prn basis --> 1 unit prbc 10/30 # Thrombocytopenia likely due to reactive process --> plt 138-->149-->176-->162-->112 --> imaging prn --> smear has been reviewed --> viral w/u neg # Hypercoag disorder with Atrial fibrillation --> consider anticoag as per cards --> if bleeding, consider hold anticoag # Elevated trop --> per cards # Hyperkalemia --> per renal # Acute kidney injury --> per renal # Resp failure on bipap # Recently COVID-19 positive # Dvt ppx scds --> lovenox sq-->apixaban Appreciate consultation and rosio rn Subjective Constitutional: Denies: no symptoms, chills, fever, malaise, weakness, other HEENT: Denies: no symptoms, eye pain, blurred vision, tearing, double vision, ear pain, ear discharge, nose pain, nose congestion, throat pain, throat swelling, mouth pain, mouth swelling, other Cardiovascular: Denies: no symptoms, chest pain, edema, irregular heart rate, lightheadedness, palpitations, syncope, other Respiratory: Denies: no symptoms, cough, shortness of breath, SOB with excertion, SOB at rest, sputum, wheezing, other Gastrointestinal/Abdominal: Denies: no symptoms, abdomen distended, abdominal pain, black stools, tarry stools, blood in stool, constipated, diarrhea, difficulty swallowing, nausea, poor appetite, poor fluid intake, rectal bleeding, vomiting, other Endocrine: Denies: no symptoms, excessive sweating, flushing, intolerance to cold, intolerance to heat, increased hunger, increased thirst, increased urine, unexplained weight gain, unexplained weight loss, other Hematologic/Lymphatic: Denies: no symptoms, anemia, easy bleeding, easy bruising, adenopathy, other Allergies: Coded Allergies: No Known Allergies (Unverified , 10/17/20) Subjective 10/19 cbc is pending, did get blood transfusion last night, pending results 10/20 meds noted, no bleeding, labs reviewed, rosio rn, no new changes 10/21 on 4l nc, has been refusing labs, meds noted, no bleeding 10/22 nc, refusing meds labs reviewed, rosio rn 10/23 is potentially for egd this am, no bleeding, cbc is noted 10/25 meds noted, no bleeidng, is on nc, no night sweats, bp bolus pending 10/26 bed bath done, meds noted, no bleeding, cbc reviewed from am 10/27 lethargic, on bipap, levophed, meds reviewed 10/28 icu, lethargic, remains on bipap, pressors 10/29 icu, lethargic, meds noted, on bipap, labs noted 10/30 icu, bipap, to get 1 unit prbc, meds reviewed, labs noted 10/31 icu, on vent, no bipap 11/01: remains in icu, no bleeding reported 11/02 icu, lethargic, on vent, with gt feeds on hold, labs noted 11/03 icu, intubated on vent, lethargic, labs reviewed, meds noted 11/04 icu, remains intuabted is on vent, lethargic, labs reviewed 11/05 icu, nv, on vent, lethargic, labs noted 11/06 icu, extubated, is on simple mask, meds noted 11/08 in icu, on simple mask and bipap prn, labs reviewed 11/09 icu, labs reviewed, on face mask, meds noted 11/10 icu, asleep, bipap, with rothman, meds noted, rosio rn 11/11 icu, meds noted, remains bipap, labs reviewed 11/12 icu, labs noted, meds reviewed, no bleeding 11/13 icu care, labs noted, with lower plts, meds reviewed, still on apixaban 2.5 Objective Objective Current Medications Medications (Trade) Dose Ordered Sig/Yolanda Route PRN Reason Start Time Stop Time Status Last Admin Dose Admin Acetaminophen (Tylenol) 650 mg Q6H PRN GT Mild Pain (Pain Scale 1-3) 11/04/20 10:45 12/04/20 10:44 11/04/20 18:20 Acetaminophen (Tylenol) 650 mg Q6H PRN GT Temp >100.5 11/04/20 10:45 12/04/20 10:44 Apixaban (Eliquis) 2.5 mg BID GT 11/12/20 18:00 01/22/21 17:59 11/12/20 17:29 Chlorhexidine Gluconate (Eve-Hex 2%) 1 applic DAILY@2000 TOPIC 10/22/20 20:00 01/20/21 19:59 11/12/20 20:48 Digoxin (Lanoxin) 0.125 mg DAILY GT 10/30/20 09:00 01/28/21 08:59 11/12/20 08:18 Haloperidol Lactate 5 mg/ Dextrose 56 ml @ 224 mls/hr Q6H PRN IVPB Agitation 11/04/20 20:30 12/19/20 20:29 11/07/20 21:16 Levalbuterol HCl (Xopenex) 1.25 mg Q8HRT HHN 11/08/20 09:30 11/13/20 12:59 11/12/20 22:43 Levothyroxine Sodium (Synthroid) 50 mcg DAILY@0630 ORAL 10/19/20 06:30 11/18/20 06:29 11/13/20 06:12 Ondansetron HCl (Zofran) 4 mg Q6H PRN IVP Nausea & Vomiting 10/17/20 21:15 11/16/20 21:14 Pantoprazole (Protonix) 40 mg Q12HR IVP 11/02/20 21:00 11/25/20 20:59 11/12/20 20:48 Vitamin D (Vitamin D) 3,000 unit DAILY GT 11/12/20 09:00 12/12/20 08:59 11/12/20 08:17 Last 24 Hour Vital Signs Date Time Temp Pulse Resp B/P (MAP) Pulse Ox O2 Delivery O2 Flow Rate FiO2 11/13/20 06:00 84 20 147/64 (91) 100 11/13/20 05:16 84 22 100 30 11/13/20 05:00 84 23 137/58 (84) 100 11/13/20 04:00 83 11/13/20 04:00 98.4 85 20 122/57 (78) 100 11/13/20 04:00 Bi-pap Bi-pap 11/13/20 04:00 30 11/13/20 03:22 79 28 100 30 11/13/20 03:00 80 16 130/43 (72) 100 11/13/20 02:00 83 16 110/57 (74) 100 11/13/20 01:20 89 14 100 30 11/13/20 01:00 78 16 113/54 (73) 100 11/13/20 00:00 81 11/13/20 00:00 30 11/13/20 00:00 Bi-pap Bi-pap 11/13/20 00:00 98.6 90 16 123/63 (83) 100 11/12/20 23:00 86 15 103/37 (59) 100 11/12/20 22:43 94 19 100 Bi-Pap 30 84 19 100 11/12/20 22:00 82 17 106/41 (62) 100 11/12/20 21:05 85 24 100 30 11/12/20 21:00 86 19 133/53 (79) 100 11/12/20 20:00 98.4 92 22 136/95 (109) 99 11/12/20 20:00 82 11/12/20 20:00 30 11/12/20 20:00 Bi-pap Bi-pap 11/12/20 19:20 92 23 100 30 11/12/20 19:19 100 Bi-Pap 30 11/12/20 19:00 87 19 112/50 (70) 100 11/12/20 18:00 91 16 113/50 (71) 98 11/12/20 17:22 93 14 100 30 11/12/20 17:00 90 21 111/71 (84) 100 11/12/20 16:00 Bi-pap Bi-pap 11/12/20 16:00 98.0 88 21 104/56 (72) 100 11/12/20 16:00 30 11/12/20 15:41 94 22 99 Bi-Pap 30 96 24 100 11/12/20 15:03 98 11/12/20 15:00 89 23 100/34 (56) 99 11/12/20 14:00 83 20 106/42 (63) 97 11/12/20 13:48 30 11/12/20 13:01 35 11/12/20 13:00 85 17 100/41 (60) 90 11/12/20 12:29 98 26 95 30 11/12/20 12:28 24 11/12/20 12:27 2.0 11/12/20 12:00 Nasal Cannula 2.0 Nasal Cannula 2.0 11/12/20 12:00 2.0 11/12/20 12:00 98.2 91 11 113/55 (74) 99 11/12/20 12:00 97 11/12/20 11:30 93 22 122/56 (78) 100 11/12/20 11:20 2.0 11/12/20 11:01 99 11/12/20 11:00 91 29 114/57 (76) 100 11/12/20 10:00 84 20 123/68 (86) 98 11/12/20 09:00 76 16 147/54 (85) 99 11/12/20 08:18 82 11/12/20 08:00 Bi-pap Bi-pap 11/12/20 08:00 30 11/12/20 08:00 98.0 82 25 119/46 (70) 99 11/12/20 07:59 80 16 100 Bi-Pap 30 86 25 100 11/12/20 07:57 100 Bi-Pap 30 11/12/20 07:50 93 11/12/20 07:00 83 23 141/54 (83) 99 11/12/20 06:30 77 22 91/47 (62) 100 11/12/20 06:18 82 23 102/43 (62) 100 11/12/20 06:00 82 23 130/55 (80) 99 11/12/20 05:30 83 21 127/45 (72) 99 11/12/20 05:01 97 22 99 30 11/12/20 05:00 83 21 132/62 (85) 99 11/12/20 04:30 85 22 117/48 (71) 100 11/12/20 04:00 91 11/12/20 04:00 Bi-pap Bi-pap 11/12/20 04:00 35 11/12/20 04:00 83 23 125/72 (89) 99 11/12/20 03:30 89 20 111/51 (71) 97 11/12/20 03:00 98 33 99 30 11/12/20 03:00 86 26 122/50 (74) 100 11/12/20 03:00 86 26 100 11/12/20 02:30 86 25 128/54 (78) 98 11/12/20 02:00 86 26 132/59 (83) 99 11/12/20 01:39 98 24 99 30 11/12/20 01:30 86 26 122/64 (83) 99 11/12/20 01:00 88 11 137/49 (78) 99 11/12/20 00:30 86 24 136/64 (88) 98 11/12/20 00:00 35 11/12/20 00:00 Bi-pap Bi-pap 11/12/20 00:00 74 11/12/20 00:00 86 26 135/73 (93) 98 11/11/20 23:30 83 25 124/63 (83) 99 11/11/20 23:00 85 22 117/46 (69) 98 11/11/20 22:50 98 28 98 30 11/11/20 22:49 88 26 100 Bi-Pap 35 75 25 98 11/11/20 22:30 85 26 122/47 (72) 97 11/11/20 22:00 83 29 120/57 (78) 98 11/11/20 21:30 88 22 146/59 (88) 99 11/11/20 21:00 90 22 136/54 (81) 99 11/11/20 21:00 82 24 98 30 11/11/20 20:30 86 21 119/66 (83) 98 11/11/20 20:00 35 11/11/20 20:00 Bi-pap Bi-pap 11/11/20 20:00 85 11/11/20 20:00 97.6 88 26 136/50 (78) 98 11/11/20 19:30 86 22 124/57 (79) 100 11/11/20 19:06 86 29 98 30 11/11/20 19:05 99 Bi-Pap 30 11/11/20 19:00 94 14 131/45 (73) 96 11/11/20 18:30 83 22 103/43 (63) 97 3/17/21 18:00 87 27 122/52 (75) 97 11/11/20 17:30 91 29 135/60 (85) 100 11/11/20 17:17 82 27 100 30 11/11/20 17:00 88 17 116/65 (82) 100 11/11/20 16:30 89 17 123/56 (78) 100 11/11/20 16:00 35 11/11/20 16:00 Bi-pap Bi-pap 11/11/20 16:00 98.8 86 20 122/44 (70) 100 11/11/20 16:00 99 11/11/20 15:52 85 26 100 Bi-Pap 35 82 26 99 11/11/20 15:52 82 26 99 35 11/11/20 15:30 87 11 143/56 (85) 99 11/11/20 15:00 87 9 118/50 (72) 98 11/11/20 14:30 88 37 111/52 (71) 99 11/11/20 14:00 85 25 98/48 (65) 98 11/11/20 13:32 85 34 94 35 11/11/20 13:30 86 15 120/51 (74) 89 11/11/20 13:00 80 23 102/42 (62) 99 11/11/20 12:30 80 25 125/60 (81) 99 11/11/20 12:00 30 11/11/20 12:00 79 11/11/20 12:00 98.2 82 25 113/50 (71) 98 11/11/20 12:00 Bi-pap Bi-pap 11/11/20 11:30 84 28 107/42 (63) 98 11/11/20 11:05 85 88/34 (52) 11/11/20 10:52 82 30 98 30 11/11/20 10:34 84 27 102/48 (66) 94 11/11/20 10:07 88 28 91/38 (55) 92 11/11/20 09:30 35 11/11/20 09:30 84 32 93/31 (51) 100 11/11/20 09:30 73 30 100 35 11/11/20 09:14 106 11/11/20 09:00 85 28 102/38 (59) 98 11/11/20 08:30 90 20 100 Venturi Mask 8.0 40 77 25 99 11/11/20 08:30 93 29 105/50 (68) 99 11/11/20 08:00 93 11/11/20 08:00 97.5 93 22 91/46 (61) 99 11/11/20 08:00 Venturi Mask 8.0 Venturi Mask 8.0 Intake and Output 11/12/20 11/13/20 19:00 07:00 Intake Total 580 ml 540 ml Output Total 490 ml 510 ml Balance 90 ml 30 ml Free Water 100 ml Tube Feeding 480 ml 440 ml Other 100 ml Output Urine Total 290 ml 485 ml Stool Total 200 ml 25 ml # Voids 3 Labs Test 11/10/20 08:32 11/11/20 03:35 11/11/20 09:00 11/11/20 11:50 Arterial Blood pH 7.412 (7.350-7.450) 7.314 (7.350-7.450) Arterial Blood Partial Pressure CO2 59.5 mmHg (35.0-45.0) 80.1 mmHg (35.0-45.0) Arterial Blood Partial Pressure O2 84.8 mmHg (75.0-100.0) 73.5 mmHg (75.0-100.0) Arterial Blood HCO3 37.0 mmol/L (22.0-26.0) 39.8 mmol/L (22.0-26.0) Arterial Blood Oxygen Saturation 95.6 % (95-100) 93.3 % (95-100) Arterial Blood Base Excess 10.8 (-2-2) 11.4 (-2-2) Gallo Test Positive Positive White Blood Count 6.9 K/UL (4.8-10.8) Red Blood Count 3.01 M/UL (4.20-5.40) Hemoglobin 8.9 G/DL (12.0-16.0) Hematocrit 29.7 % (37.0-47.0) Mean Corpuscular Volume 99 FL (80-99) Mean Corpuscular Hemoglobin 29.4 PG (27.0-31.0) Mean Corpuscular Hemoglobin Concent 29.9 G/DL (32.0-36.0) Red Cell Distribution Width 19.0 % (11.6-14.8) Platelet Count 234 K/UL (150-450) Mean Platelet Volume 8.0 FL (6.5-10.1) Neutrophils (%) (Auto) % (45.0-75.0) Lymphocytes (%) (Auto) % (20.0-45.0) Monocytes (%) (Auto) % (1.0-10.0) Eosinophils (%) (Auto) % (0.0-3.0) Basophils (%) (Auto) % (0.0-2.0) Differential Total Cells Counted 100 Neutrophils % (Manual) 79 % (45-75) Lymphocytes % (Manual) 3 % (20-45) Monocytes % (Manual) 6 % (1-10) Eosinophils % (Manual) 0 % (0-3) Basophils % (Manual) 0 % (0-2) Band Neutrophils 12 % (0-8) Nucleated Red Blood Cells 1 /100 WBC Platelet Estimate Adequate Platelet Morphology Normal Polychromasia 1+ Hypochromasia 1+ Anisocytosis 1+ Macrocytosis 1+ Sodium Level 149 MMOL/L (136-145) Potassium Level 4.4 MMOL/L (3.5-5.1) Chloride Level 107 MMOL/L (98-107) Carbon Dioxide Level 40 MMOL/L (21-32) Anion Gap 2 mmol/L (5-15) Blood Urea Nitrogen 52 mg/dL (7-18) Creatinine 1.3 MG/DL (0.55-1.30) Estimat Glomerular Filtration Rate 39.1 mL/min (>60) Glucose Level 129 MG/DL (74-106) Uric Acid 8.8 MG/DL (2.6-7.2) Calcium Level 8.4 MG/DL (8.5-10.1) Phosphorus Level 3.4 MG/DL (2.5-4.9) Magnesium Level 2.0 MG/DL (1.8-2.4) Total Bilirubin 0.5 MG/DL (0.2-1.0) Aspartate Amino Transf (AST/SGOT) 29 U/L (15-37) Alanine Aminotransferase (ALT/SGPT) 21 U/L (12-78) Alkaline Phosphatase 81 U/L (46-116) C-Reactive Protein, Quantitative 6.8 mg/dL (0.00-0.90) Pro-B-Type Natriuretic Peptide > 55482 pg/mL (0-125) Total Protein 5.8 G/DL (6.4-8.2) Albumin 2.1 G/DL (3.4-5.0) Globulin 3.7 g/dL Albumin/Globulin Ratio 0.6 (1.0-2.7) Prothrombin Time 11.4 SEC (9.30-11.50) Prothromb Time International Ratio 1.0 (0.9-1.1) Activated Partial Thromboplast Time 27 SEC (23-33) Test 11/12/20 08:39 11/12/20 11:48 11/12/20 12:10 11/12/20 17:54 Arterial Blood pH 7.393 (7.350-7.450) 7.307 (7.350-7.450) Arterial Blood Partial Pressure CO2 65.4 mmHg (35.0-45.0) 84.5 mmHg (35.0-45.0) Arterial Blood Partial Pressure O2 89.1 mmHg (75.0-100.0) 128.1 mmHg (75.0-100.0) Arterial Blood HCO3 39.0 mmol/L (22.0-26.0) 41.3 mmol/L (22.0-26.0) Arterial Blood Oxygen Saturation 96.1 % (95-100) 97.8 % (95-100) Arterial Blood Base Excess 12.3 (-2-2) 12.6 (-2-2) Gallo Test Positive Positive POC Whole Blood Glucose 92 MG/DL (74-106) 102 MG/DL (74-106) Test 11/13/20 01:11 11/13/20 03:45 POC Whole Blood Glucose 119 MG/DL (74-106) White Blood Count 4.2 K/UL (4.8-10.8) Red Blood Count 2.61 M/UL (4.20-5.40) Hemoglobin 7.8 G/DL (12.0-16.0) Hematocrit 25.3 % (37.0-47.0) Mean Corpuscular Volume 97 FL (80-99) Mean Corpuscular Hemoglobin 29.7 PG (27.0-31.0) Mean Corpuscular Hemoglobin Concent 30.8 G/DL (32.0-36.0) Red Cell Distribution Width 19.0 % (11.6-14.8) Platelet Count 112 K/UL (150-450) Mean Platelet Volume 9.2 FL (6.5-10.1) Neutrophils (%) (Auto) % (45.0-75.0) Lymphocytes (%) (Auto) % (20.0-45.0) Monocytes (%) (Auto) % (1.0-10.0) Eosinophils (%) (Auto) % (0.0-3.0) Basophils (%) (Auto) % (0.0-2.0) Sodium Level 152 MMOL/L (136-145) Potassium Level 4.2 MMOL/L (3.5-5.1) Chloride Level 112 MMOL/L (98-107) Carbon Dioxide Level 40 MMOL/L (21-32) Anion Gap 0 mmol/L (5-15) Blood Urea Nitrogen 57 mg/dL (7-18) Creatinine 1.3 MG/DL (0.55-1.30) Estimat Glomerular Filtration Rate 39.1 mL/min (>60) Glucose Level 132 MG/DL (74-106) Calcium Level 8.4 MG/DL (8.5-10.1) Phosphorus Level 3.7 MG/DL (2.5-4.9) Magnesium Level 2.1 MG/DL (1.8-2.4) Total Bilirubin 0.5 MG/DL (0.2-1.0) Aspartate Amino Transf (AST/SGOT) 30 U/L (15-37) Alanine Aminotransferase (ALT/SGPT) 27 U/L (12-78) Alkaline Phosphatase 76 U/L (46-116) Total Protein 5.5 G/DL (6.4-8.2) Albumin 2.0 G/DL (3.4-5.0) Globulin 3.5 g/dL Albumin/Globulin Ratio 0.6 (1.0-2.7) Height (Feet): 5 Height (Inches): 0.00 Weight (Pounds): 145 Objective Physical Exam General: Awake and alert, no acute distress HEENT: NC/AT. EOMI. Cardiovascular: Irregularly irregular rhythm. Resp: Normal work of breathing. ++simple face mask Abdomen: Abdomen is soft, nondistended. Nontender Skin: Intact. No abrasions, laceration or rash over the exposed skin MSK: Normal tone and bulk. Moving all extremities. Neuro: Awake and alert. Mentating appropriately. Hawk Ma MD Nov 13, 2020 07:54
--- NOTE | 2020-11-13 08:00 | NUR ---
NURSE NOTES: Dr. Ma informed the patient hgb this morning is 7.8 with plt of 112, there is no bleeding present in the urine or blood noticeable in the rectal tube, ordered to hold both doses on eliquis today and continue to monitor for bleeding.
[2020-11-13] MEDS: Levalbuterol Inh UD 1.25mg/0.5ml HHN SCH (08:21)
[2020-11-13] MEDS: Eliquis 2.5mg tablet GT SCH ×2 (08:38→17:33)
[2020-11-13] MEDS: Pantoprazole Inj IVP SCH ×2 (08:43→21:30)
[2020-11-13] MEDS: Vitamin D 1000 units Tab GT SCH (08:44)
[2020-11-13] MEDS: Digoxin 0.125mg tab GT SCH (08:44)
--- NOTE | 2020-11-13 09:42 | NUR ---
NURSE NOTES: Tl hernandez updated on the patient bipap setting and respiratory status, lungs sounds sound congested with low lung expansion, also obtain order to maintain patient on bipap of 16/5 at fio2 30%. awaiting for ABG to result.
--- NOTE | 2020-11-13 09:47 | Pulmonology Progress Note ---
Subjective ROS Limited/Unobtainable: Yes Interval Events: Intubated 10/31/20; extubated 11/05/20; BiPAP Constitutional: Reports: other - doig better HEENT: Repors: no symptoms Respiratory: Reports: no symptoms Cardiovascular: Reports: no symptoms Gastrointestinal/Abdominal: Reports: diarrhea Psychiatric: Reports: other Allergies: Coded Allergies: No Known Allergies (Unverified , 10/17/20) All Systems: reviewed and negative except above Objective Last 24 Hour Vital Signs Date Time Temp Pulse Resp B/P (MAP) Pulse Ox O2 Delivery O2 Flow Rate FiO2 11/13/20 09:00 86 23 118/55 (76) 100 11/13/20 08:44 94 11/13/20 08:00 98.4 92 27 148/74 (98) 100 11/13/20 08:00 87 11/13/20 08:00 30 11/13/20 07:00 82 23 137/73 (94) 100 11/13/20 06:00 84 20 147/64 (91) 100 11/13/20 05:16 84 22 100 30 11/13/20 05:00 84 23 137/58 (84) 100 11/13/20 04:00 83 11/13/20 04:00 98.4 85 20 122/57 (78) 100 11/13/20 04:00 Bi-pap Bi-pap 11/13/20 04:00 30 11/13/20 03:22 79 28 100 30 11/13/20 03:00 80 16 130/43 (72) 100 11/13/20 02:00 83 16 110/57 (74) 100 11/13/20 01:20 89 14 100 30 11/13/20 01:00 78 16 113/54 (73) 100 11/13/20 00:00 81 11/13/20 00:00 30 11/13/20 00:00 Bi-pap Bi-pap 11/13/20 00:00 98.6 90 16 123/63 (83) 100 11/12/20 23:00 86 15 103/37 (59) 100 11/12/20 22:43 94 19 100 Bi-Pap 30 84 19 100 11/12/20 22:00 82 17 106/41 (62) 100 11/12/20 21:05 85 24 100 30 11/12/20 21:00 86 19 133/53 (79) 100 11/12/20 20:00 98.4 92 22 136/95 (109) 99 11/12/20 20:00 82 11/12/20 20:00 30 11/12/20 20:00 Bi-pap Bi-pap 11/12/20 19:20 92 23 100 30 11/12/20 19:19 100 Bi-Pap 30 11/12/20 19:00 87 19 112/50 (70) 100 11/12/20 18:00 91 16 113/50 (71) 98 11/12/20 17:22 93 14 100 30 11/12/20 17:00 90 21 111/71 (84) 100 11/12/20 16:00 Bi-pap Bi-pap 11/12/20 16:00 98.0 88 21 104/56 (72) 100 11/12/20 16:00 30 11/12/20 15:41 94 22 99 Bi-Pap 30 96 24 100 11/12/20 15:03 98 11/12/20 15:00 89 23 100/34 (56) 99 11/12/20 14:00 83 20 106/42 (63) 97 11/12/20 13:48 30 11/12/20 13:01 35 11/12/20 13:00 85 17 100/41 (60) 90 11/12/20 12:29 98 26 95 30 11/12/20 12:28 24 11/12/20 12:27 2.0 11/12/20 12:00 Nasal Cannula 2.0 Nasal Cannula 2.0 11/12/20 12:00 2.0 11/12/20 12:00 98.2 91 11 113/55 (74) 99 11/12/20 12:00 97 11/12/20 11:30 93 22 122/56 (78) 100 11/12/20 11:20 2.0 11/12/20 11:01 99 11/12/20 11:00 91 29 114/57 (76) 100 11/12/20 10:00 84 20 123/68 (86) 98 Intake and Output 11/12/20 11/13/20 19:00 07:00 Intake Total 580 ml 540 ml Output Total 490 ml 510 ml Balance 90 ml 30 ml Free Water 100 ml Tube Feeding 480 ml 440 ml Other 100 ml Output Urine Total 290 ml 485 ml Stool Total 200 ml 25 ml # Voids 3 General Appearance: no acute distress HEENT: atraumatic Respiratory: lungs clear Cardiovascular: normal rate, regular rhythm Abdomen: soft, non tender, other - s/p PEG Laboratory Tests 11/12/20 11:48: POC Whole Blood Glucose 92 11/12/20 12:10: Arterial Blood pH 7.307L, Arterial Blood Partial Pressure CO2 84.5*H, Arterial Blood Partial Pressure O2 128.1H, Arterial Blood HCO3 41.3*H, Arterial Blood Oxygen Saturation 97.8, Arterial Blood Base Excess 12.6*H, Gallo Test Positive 11/12/20 17:54: POC Whole Blood Glucose 102 11/13/20 01:11: POC Whole Blood Glucose 119H 11/13/20 03:45: White Blood Count 4.2L, Red Blood Count 2.61L, Hemoglobin 7.8L, Hematocrit 25.3L , Mean Corpuscular Volume 97, Mean Corpuscular Hemoglobin 29.7, Mean Corpuscular Hemoglobin Concent 30.8L, Red Cell Distribution Width 19.0H, Platelet Count 112L , Mean Platelet Volume 9.2, Neutrophils (%) (Auto) , Lymphocytes (%) (Auto) , Monocytes (%) (Auto) , Eosinophils (%) (Auto) , Basophils (%) (Auto) , Differential Total Cells Counted 100, Neutrophils % (Manual) 76H, Lymphocytes % (Manual) 14L, Monocytes % (Manual) 5, Eosinophils % (Manual) 0, Basophils % (Manual) 0, Band Neutrophils 5, Platelet Estimate DecreasedL, Platelet Morphology Normal, Polychromasia 1+, Hypochromasia 2+, Anisocytosis 1+, Macrocytosis 1+, Ovalocytes Occasional, Stomatocytes Occasional, Sodium Level 152H, Potassium Level 4.2, Chloride Level 112H, Carbon Dioxide Level 40H, Anion Gap 0L, Blood Urea Nitrogen 57H, Creatinine 1.3, Estimat Glomerular Filtration Rate 39.1, Glucose Level 132H, Calcium Level 8.4L, Phosphorus Level 3.7, Magnesium Level 2.1, Total Bilirubin 0.5, Aspartate Amino Transf (AST/SGOT) 30, Alanine Aminotransferase (ALT/SGPT) 27, Alkaline Phosphatase 76, Total Protein 5.5L, Albumin 2.0L, Globulin 3.5, Albumin/Globulin Ratio 0.6L Current Medications Medications (Trade) Dose Ordered Sig/Yolanda Route PRN Reason Start Time Stop Time Status Last Admin Dose Admin Acetaminophen (Tylenol) 650 mg Q6H PRN GT Mild Pain (Pain Scale 1-3) 11/04/20 10:45 12/04/20 10:44 11/04/20 18:20 Acetaminophen (Tylenol) 650 mg Q6H PRN GT Temp >100.5 11/04/20 10:45 12/04/20 10:44 Apixaban (Eliquis) 2.5 mg BID GT 11/12/20 18:00 01/22/21 17:59 11/12/20 17:29 Chlorhexidine Gluconate (Eve-Hex 2%) 1 applic DAILY@2000 TOPIC 10/22/20 20:00 01/20/21 19:59 11/12/20 20:48 Digoxin (Lanoxin) 0.125 mg DAILY GT 10/30/20 09:00 01/28/21 08:59 11/13/20 08:44 Haloperidol Lactate 5 mg/ Dextrose 56 ml @ 224 mls/hr Q6H PRN IVPB Agitation 11/04/20 20:30 12/19/20 20:29 11/07/20 21:16 Levalbuterol HCl (Xopenex) 1.25 mg Q8HRT HHN 11/08/20 09:30 11/13/20 12:59 11/13/20 08:21 Levothyroxine Sodium (Synthroid) 50 mcg DAILY@0630 ORAL 10/19/20 06:30 11/18/20 06:29 11/13/20 06:12 Ondansetron HCl (Zofran) 4 mg Q6H PRN IVP Nausea & Vomiting 10/17/20 21:15 11/16/20 21:14 Pantoprazole (Protonix) 40 mg Q12HR IVP 11/02/20 21:00 11/25/20 20:59 11/13/20 08:43 Vitamin D (Vitamin D) 3,000 unit DAILY GT 11/12/20 09:00 12/12/20 08:59 11/13/20 08:44 Assessment/Plan Assessment/Plan 1. CHF - CXR (11/07) pulmonary vascular congestion and small pleural effusions. - s/p thoracentesis (11/11) 700mL out 2. CAD/previous non-STEMI. 3. [facility] resident. 4. Bradycardia. 5. Atrial fibrillation. -Started on Eliquis 6. Renal insufficiency. -Nephro following 7. Troponin leak. - Cardio following 8. COVID-19 pneumonia, without fever or leukocytosis - s/p intubated; now extubated 11/06/20 - Still on BiPAP - Sp Cx (11/03) Gram negative bacillus -> now on meropenem per ID - added Levalbuterol 9. Respiratory failure, s/p vent - now extubated 10. 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 UTI, cheryl 12. Dysphagia -s/p PEG (10/23) 13. Hypotension; improved - s/p NS bolus - pressors as needed 14. L pleural effusion; improved - completed Diamox 250 mg q6hr x8 doses -s/p thoracentesis (11/11) 700 mL Noted Edgardo evky; she can be discharged to [place] on BiPAP 10/01 The care of this patient was discussed with my supervising physician Time spent for this encounter was approximately 31 minutes Tl Pedro Nov 13, 2020 09:47
--- NOTE | 2020-11-13 10:45 | NUR ---
RESPIRATORY NOTE: ABG drawn at this time. Results reported to [facility].
--- NOTE | 2020-11-13 11:20 | NUR ---
NURSE NOTES: Dr. Alvarado updated at the bedside of patient condition, no temperature noted this morning at 98.6F taken axillary. no verbal orders given at this time.
--- NOTE | 2020-11-13 11:20 | Infectious Diseases Prog Note ---
Assessment/Plan Assessment/Plan IMPRESSION: Pneumonia with Pseudomonas Hypercapnic, hypoxic respiratory failure Recent history of COVID disease, Acute renal failure, Aortic stenosis Atrial fibrillation, hypothyroidism, Anemia. Chronic DVT of R leg Hypotension Gastrostomy status Respiratory acidosis Left pleural effusion s/p thoracentesis RECOMMENDATION: Observe off antibiotic Subjective Constitutional: Denies: fever Respiratory: Reports: other - is back on BIPAP Allergies: Coded Allergies: No Known Allergies (Unverified , 10/17/20) Objective Last 24 Hour Vital Signs Date Time Temp Pulse Resp B/P (MAP) Pulse Ox O2 Delivery O2 Flow Rate FiO2 11/13/20 11:00 85 18 137/75 (95) 100 11/13/20 10:00 87 18 122/56 (78) 99 11/13/20 09:40 81 16 100 30 11/13/20 09:00 86 23 118/55 (76) 100 11/13/20 08:44 94 11/13/20 08:21 82 19 100 Bi-Pap 30 81 22 99 11/13/20 08:00 98.4 92 27 148/74 (98) 100 11/13/20 08:00 87 11/13/20 08:00 30 11/13/20 07:25 100 Bi-Pap 30 11/13/20 07:25 76 23 100 30 11/13/20 07:00 82 23 137/73 (94) 100 11/13/20 06:00 84 20 147/64 (91) 100 11/13/20 05:16 84 22 100 30 11/13/20 05:00 84 23 137/58 (84) 100 11/13/20 04:00 83 11/13/20 04:00 98.4 85 20 122/57 (78) 100 11/13/20 04:00 Bi-pap Bi-pap 11/13/20 04:00 30 11/13/20 03:22 79 28 100 30 11/13/20 03:00 80 16 130/43 (72) 100 11/13/20 02:00 83 16 110/57 (74) 100 11/13/20 01:20 89 14 100 30 11/13/20 01:00 78 16 113/54 (73) 100 11/13/20 00:00 81 11/13/20 00:00 30 11/13/20 00:00 Bi-pap Bi-pap 11/13/20 00:00 98.6 90 16 123/63 (83) 100 11/12/20 23:00 86 15 103/37 (59) 100 11/12/20 22:43 94 19 100 Bi-Pap 30 84 19 100 11/12/20 22:00 82 17 106/41 (62) 100 11/12/20 21:05 85 24 100 30 11/12/20 21:00 86 19 133/53 (79) 100 11/12/20 20:00 98.4 92 22 136/95 (109) 99 11/12/20 20:00 82 11/12/20 20:00 30 11/12/20 20:00 Bi-pap Bi-pap 11/12/20 19:20 92 23 100 30 11/12/20 19:19 100 Bi-Pap 30 11/12/20 19:00 87 19 112/50 (70) 100 11/12/20 18:00 91 16 113/50 (71) 98 11/12/20 17:22 93 14 100 30 11/12/20 17:00 90 21 111/71 (84) 100 11/12/20 16:00 Bi-pap Bi-pap 11/12/20 16:00 98.0 88 21 104/56 (72) 100 11/12/20 16:00 30 11/12/20 15:41 94 22 99 Bi-Pap 30 96 24 100 11/12/20 15:03 98 11/12/20 15:00 89 23 100/34 (56) 99 11/12/20 14:00 83 20 106/42 (63) 97 11/12/20 13:48 30 11/12/20 13:01 35 11/12/20 13:00 85 17 100/41 (60) 90 11/12/20 12:29 98 26 95 30 11/12/20 12:28 24 11/12/20 12:27 2.0 11/12/20 12:00 Nasal Cannula 2.0 Nasal Cannula 2.0 11/12/20 12:00 2.0 11/12/20 12:00 98.2 91 11 113/55 (74) 99 11/12/20 12:00 97 11/12/20 11:30 93 22 122/56 (78) 100 11/12/20 11:20 2.0 Height (Feet): 5 Height (Inches): 0.00 Weight (Pounds): 145 HEENT: mucous membranes moist Respiratory/Chest: decreased breath sounds, other - on BIPAP Cardiovascular: normal rate Abdomen: soft, non tender, other - GT & rectal tube Extremities: other - generalized edema Neurologic/Psychiatric: other - lethargic Laboratory Tests Test 11/12/20 11:48 11/12/20 12:10 11/12/20 17:54 11/13/20 01:11 POC Whole Blood Glucose 92 MG/DL (74-106) 102 MG/DL (74-106) 119 MG/DL (74-106) H Arterial Blood pH 7.307 (7.350-7.450) Arterial Blood Partial Pressure CO2 84.5 mmHg (35.0-45.0) *H Arterial Blood Partial Pressure O2 128.1 mmHg (75.0-100.0) H Arterial Blood HCO3 41.3 mmol/L (22.0-26.0) *H Arterial Blood Oxygen Saturation 97.8 % (95-100) Arterial Blood Base Excess 12.6 (-2-2) *H Gallo Test Positive Test 11/13/20 03:45 11/13/20 10:45 White Blood Count 4.2 K/UL (4.8-10.8) L Red Blood Count 2.61 M/UL (4.20-5.40) L Hemoglobin 7.8 G/DL (12.0-16.0) L Hematocrit 25.3 % (37.0-47.0) L Mean Corpuscular Volume 97 FL (80-99) Mean Corpuscular Hemoglobin 29.7 PG (27.0-31.0) Mean Corpuscular Hemoglobin Concent 30.8 G/DL (32.0-36.0) L Red Cell Distribution Width 19.0 % (11.6-14.8) H Platelet Count 112 K/UL (150-450) L Mean Platelet Volume 9.2 FL (6.5-10.1) Neutrophils (%) (Auto) % (45.0-75.0) Lymphocytes (%) (Auto) % (20.0-45.0) Monocytes (%) (Auto) % (1.0-10.0) Eosinophils (%) (Auto) % (0.0-3.0) Basophils (%) (Auto) % (0.0-2.0) Differential Total Cells Counted 100 Neutrophils % (Manual) 76 % (45-75) H Lymphocytes % (Manual) 14 % (20-45) L Monocytes % (Manual) 5 % (1-10) Eosinophils % (Manual) 0 % (0-3) Basophils % (Manual) 0 % (0-2) Band Neutrophils 5 % (0-8) Platelet Estimate Decreased L Platelet Morphology Normal Polychromasia 1+ Hypochromasia 2+ Anisocytosis 1+ Macrocytosis 1+ Ovalocytes Occasional Stomatocytes Occasional Sodium Level 152 MMOL/L (136-145) H Potassium Level 4.2 MMOL/L (3.5-5.1) Chloride Level 112 MMOL/L (98-107) H Carbon Dioxide Level 40 MMOL/L (21-32) H Anion Gap 0 mmol/L (5-15) L Blood Urea Nitrogen 57 mg/dL (7-18) H Creatinine 1.3 MG/DL (0.55-1.30) Estimat Glomerular Filtration Rate 39.1 mL/min (>60) Glucose Level 132 MG/DL (74-106) H Calcium Level 8.4 MG/DL (8.5-10.1) L Phosphorus Level 3.7 MG/DL (2.5-4.9) Magnesium Level 2.1 MG/DL (1.8-2.4) Total Bilirubin 0.5 MG/DL (0.2-1.0) Aspartate Amino Transf (AST/SGOT) 30 U/L (15-37) Alanine Aminotransferase (ALT/SGPT) 27 U/L (12-78) Alkaline Phosphatase 76 U/L (46-116) Total Protein 5.5 G/DL (6.4-8.2) L Albumin 2.0 G/DL (3.4-5.0) L Globulin 3.5 g/dL Albumin/Globulin Ratio 0.6 (1.0-2.7) L Arterial Blood pH 7.400 (7.350-7.450) Arterial Blood Partial Pressure CO2 56.9 mmHg (35.0-45.0) *H Arterial Blood Partial Pressure O2 88.4 mmHg (75.0-100.0) Arterial Blood HCO3 34.5 mmol/L (22.0-26.0) H Arterial Blood Oxygen Saturation 95.9 % (95-100) Arterial Blood Base Excess 8.6 (-2-2) H Gallo Test Positive Current Medications Medications (Trade) Dose Ordered Sig/Yolanda Route PRN Reason Start Time Stop Time Status Last Admin Dose Admin Acetaminophen (Tylenol) 650 mg Q6H PRN GT Mild Pain (Pain Scale 1-3) 11/04/20 10:45 12/04/20 10:44 11/04/20 18:20 Acetaminophen (Tylenol) 650 mg Q6H PRN GT Temp >100.5 11/04/20 10:45 12/04/20 10:44 Apixaban (Eliquis) 2.5 mg BID GT 11/12/20 18:00 01/22/21 17:59 11/12/20 17:29 Chlorhexidine Gluconate (Eve-Hex 2%) 1 applic DAILY@2000 TOPIC 10/22/20 20:00 01/20/21 19:59 11/12/20 20:48 Digoxin (Lanoxin) 0.125 mg DAILY GT 10/30/20 09:00 01/28/21 08:59 11/13/20 08:44 Haloperidol Lactate 5 mg/ Dextrose 56 ml @ 224 mls/hr Q6H PRN IVPB Agitation 11/04/20 20:30 12/19/20 20:29 11/07/20 21:16 Levalbuterol HCl (Xopenex) 1.25 mg Q8HRT HHN 11/08/20 09:30 11/13/20 12:59 11/13/20 08:21 Levothyroxine Sodium (Synthroid) 50 mcg DAILY@0630 ORAL 10/19/20 06:30 11/18/20 06:29 11/13/20 06:12 Ondansetron HCl (Zofran) 4 mg Q6H PRN IVP Nausea & Vomiting 10/17/20 21:15 11/16/20 21:14 Pantoprazole (Protonix) 40 mg Q12HR IVP 11/02/20 21:00 11/25/20 20:59 11/13/20 08:43 Vitamin D (Vitamin D) 3,000 unit DAILY GT 11/12/20 09:00 12/12/20 08:59 11/13/20 08:44 Luis Alvaraod MD Nov 13, 2020 11:20
--- NOTE | 2020-11-13 11:24 | General Progress Note ---
Subjective ROS Limited/Unobtainable: No Allergies: Coded Allergies: No Known Allergies (Unverified , 10/17/20) Subjective intubated now Objective Last 24 Hour Vital Signs Date Time Temp Pulse Resp B/P (MAP) Pulse Ox O2 Delivery O2 Flow Rate FiO2 11/13/20 11:00 85 18 137/75 (95) 100 11/13/20 10:00 87 18 122/56 (78) 99 11/13/20 09:40 81 16 100 30 11/13/20 09:00 86 23 118/55 (76) 100 11/13/20 08:44 94 11/13/20 08:21 82 19 100 Bi-Pap 30 81 22 99 11/13/20 08:00 98.4 92 27 148/74 (98) 100 11/13/20 08:00 87 11/13/20 08:00 30 11/13/20 07:25 100 Bi-Pap 30 11/13/20 07:25 76 23 100 30 11/13/20 07:00 82 23 137/73 (94) 100 11/13/20 06:00 84 20 147/64 (91) 100 11/13/20 05:16 84 22 100 30 11/13/20 05:00 84 23 137/58 (84) 100 11/13/20 04:00 83 11/13/20 04:00 98.4 85 20 122/57 (78) 100 11/13/20 04:00 Bi-pap Bi-pap 11/13/20 04:00 30 11/13/20 03:22 79 28 100 30 11/13/20 03:00 80 16 130/43 (72) 100 11/13/20 02:00 83 16 110/57 (74) 100 11/13/20 01:20 89 14 100 30 11/13/20 01:00 78 16 113/54 (73) 100 11/13/20 00:00 81 11/13/20 00:00 30 11/13/20 00:00 Bi-pap Bi-pap 11/13/20 00:00 98.6 90 16 123/63 (83) 100 11/12/20 23:00 86 15 103/37 (59) 100 11/12/20 22:43 94 19 100 Bi-Pap 30 84 19 100 11/12/20 22:00 82 17 106/41 (62) 100 11/12/20 21:05 85 24 100 30 11/12/20 21:00 86 19 133/53 (79) 100 11/12/20 20:00 98.4 92 22 136/95 (109) 99 11/12/20 20:00 82 11/12/20 20:00 30 11/12/20 20:00 Bi-pap Bi-pap 11/12/20 19:20 92 23 100 30 11/12/20 19:19 100 Bi-Pap 30 11/12/20 19:00 87 19 112/50 (70) 100 11/12/20 18:00 91 16 113/50 (71) 98 11/12/20 17:22 93 14 100 30 11/12/20 17:00 90 21 111/71 (84) 100 11/12/20 16:00 Bi-pap Bi-pap 11/12/20 16:00 98.0 88 21 104/56 (72) 100 11/12/20 16:00 30 11/12/20 15:41 94 22 99 Bi-Pap 30 96 24 100 11/12/20 15:03 98 11/12/20 15:00 89 23 100/34 (56) 99 11/12/20 14:00 83 20 106/42 (63) 97 11/12/20 13:48 30 11/12/20 13:01 35 11/12/20 13:00 85 17 100/41 (60) 90 11/12/20 12:29 98 26 95 30 11/12/20 12:28 24 11/12/20 12:27 2.0 11/12/20 12:00 Nasal Cannula 2.0 Nasal Cannula 2.0 11/12/20 12:00 2.0 11/12/20 12:00 98.2 91 11 113/55 (74) 99 11/12/20 12:00 97 11/12/20 11:30 93 22 122/56 (78) 100 Intake and Output 11/12/20 11/13/20 19:00 07:00 Intake Total 580 ml 540 ml Output Total 490 ml 510 ml Balance 90 ml 30 ml Free Water 100 ml Tube Feeding 480 ml 440 ml Other 100 ml Output Urine Total 290 ml 485 ml Stool Total 200 ml 25 ml # Voids 3 Laboratory Tests 11/12/20 11:48: POC Whole Blood Glucose 92 11/12/20 12:10: Arterial Blood pH 7.307L, Arterial Blood Partial Pressure CO2 84.5*H, Arterial Blood Partial Pressure O2 128.1H, Arterial Blood HCO3 41.3*H, Arterial Blood Oxygen Saturation 97.8, Arterial Blood Base Excess 12.6*H, Gallo Test Positive 11/12/20 17:54: POC Whole Blood Glucose 102 11/13/20 01:11: POC Whole Blood Glucose 119H 11/13/20 03:45: White Blood Count 4.2L, Red Blood Count 2.61L, Hemoglobin 7.8L, Hematocrit 25.3L , Mean Corpuscular Volume 97, Mean Corpuscular Hemoglobin 29.7, Mean Corpuscular Hemoglobin Concent 30.8L, Red Cell Distribution Width 19.0H, Platelet Count 112L , Mean Platelet Volume 9.2, Neutrophils (%) (Auto) , Lymphocytes (%) (Auto) , Monocytes (%) (Auto) , Eosinophils (%) (Auto) , Basophils (%) (Auto) , Differential Total Cells Counted 100, Neutrophils % (Manual) 76H, Lymphocytes % (Manual) 14L, Monocytes % (Manual) 5, Eosinophils % (Manual) 0, Basophils % (Manual) 0, Band Neutrophils 5, Platelet Estimate DecreasedL, Platelet Morphology Normal, Polychromasia 1+, Hypochromasia 2+, Anisocytosis 1+, Macrocytosis 1+, Ovalocytes Occasional, Stomatocytes Occasional, Sodium Level 152H, Potassium Level 4.2, Chloride Level 112H, Carbon Dioxide Level 40H, Anion Gap 0L, Blood Urea Nitrogen 57H, Creatinine 1.3, Estimat Glomerular Filtration Rate 39.1, Glucose Level 132H, Calcium Level 8.4L, Phosphorus Level 3.7, Magnesium Level 2.1, Total Bilirubin 0.5, Aspartate Amino Transf (AST/SGOT) 30, Alanine Aminotransferase (ALT/SGPT) 27, Alkaline Phosphatase 76, Total Protein 5.5L, Albumin 2.0L, Globulin 3.5, Albumin/Globulin Ratio 0.6L 11/13/20 10:45: Arterial Blood pH 7.400, Arterial Blood Partial Pressure CO2 56.9*H, Arterial Blood Partial Pressure O2 88.4, Arterial Blood HCO3 34.5H, Arterial Blood Oxygen Saturation 95.9, Arterial Blood Base Excess 8.6H, Gallo Test Positive Height (Feet): 5 Height (Inches): 0.00 Weight (Pounds): 145 General Appearance: no apparent distress EENT: TMs normal Neck: supple Cardiovascular: normal rate Respiratory/Chest: decreased breath sounds Abdomen: hypoactive bowel sounds Extremities: non-tender Assessment/Plan Problem List: (1) Hypothyroidism ICD Codes: E03.9 - Hypothyroidism, unspecified SNOMED: 32182451 (2) Pneumonia due to COVID-19 virus ICD Codes: U07.1 - COVID-19; J12.82 - Pneumonia due to coronavirus disease 2019 SNOMED: 302150255957509649 (3) Malnutrition ICD Codes: E46 - Unspecified protein-calorie malnutrition SNOMED: 28366256 (4) Decubitus skin ulcer ICD Codes: L89.90 - Pressure ulcer of unspecified site, unspecified stage SNOMED: 685575381 (5) Elevated troponin ICD Codes: R77.8 - Other specified abnormalities of plasma proteins SNOMED: 233007089, 183390032, 533772099 (6) Atrial fibrillation ICD Codes: I48.91 - Unspecified atrial fibrillation SNOMED: 14760211 (7) Anemia ICD Codes: D64.9 - Anemia, unspecified SNOMED: 207586854 Status: progressing, unchanged Assessment/Plan: GTF fu cardiology fu pulm labs for AM monitor for residuals Skyler Tobar MD Nov 13, 2020 11:24
--- NOTE | 2020-11-13 11:25 | NUR ---
NURSE NOTES: ABG result read to jacky hernandez, consulted with Dr. conner and ordered to maintain patient on bipap at 16/5 with fio2 30%.
--- NOTE | 2020-11-13 11:30 | NUR ---
NURSE NOTES: Dr. Gómez informed of the patient sodium level at 152, will review patient chart and place orders accordingly, urine output remains draining at approximately 30ml/hr. patient remains on Glucerna 1.5 at 40ml/hr.
--- NOTE | 2020-11-13 11:56 | Nephrology Progress Note ---
Assessment/Plan Problem List: (1) Acute kidney injury (2) Anemia (3) Hyperkalemia (4) Elevated troponin (5) Pneumonia due to COVID-19 virus (6) Hypothyroidism Assessment Plan November 13: Discussed with SERGIO Wilkerson. Remains on BiPAP. ABG reviewed. Labs reviewed. 1 L D5W for rising serum sodium given. Continue per pulmonary. November 12: Discussed with RN. On BiPAP. ABG labs and medication list reviewed. Patient full code. Continue per pulmonary. November 11: Remains on BiPAP. Labs reviewed. Serum sodium lower. Potassium stable. Continue per consultants. November 10: On BiPAP. ABG reviewed. On Diamox. Serum sodium rising. 1 L D5W given. Continue to monitor renal parameters. Low vitamin D level of 13 addressed. November 09: Patient getting started on BiPAP. Is retaining CO2. Discussed with . We will start Diamox. Continue to monitor renal parameters. November 08: On oxygen mask. Labs reviewed. Patient full code. Continues to be extubated. Continue pulmonary toilet. Monitor renal parameters. Discussed with RN. Serum creatinine 1.6 at its lowest. November 07: Patient remains on nasal cannula. Full code. Labs reviewed. Low magnesium addressed. Discussed with SERGIO Wilkerson. Continue present care. November 06: Patient is now extubated. Labs reviewed. Medication list reviewed. Serum creatinine stable. Continue post extubation care. November 05: Mental status improved. Labs and medication list reviewed. Serum creatinine 2.2. Weaning trial in process. Continue per consultants. November 04: Full code. Intubated. Labs reviewed. Low potassium addressed. Serum creatinine stable 2.3. Continue per consultants. Weaning as possible. November 03: Remains full code. Remains intubated. FiO2 30%. Discussed with RN. Low potassium addressed. Patient remains on Lasix. Continue to monitor renal parameters. Serum creatinine slightly rising. November 02: Patient remains intubated on ventilator. FiO2 30%. Labs reviewed. Low potassium addressed. Medication list reviewed. Patient on Lasix 40 mg every 8 hours. Serum creatinine higher to 2.3. Feeding changed to Nepro. Potassium supplement given. Continue to monitor renal parameters. November 01: Seen in ICU. Now intubated on ventilator. Discussed with RN. Labs results noted. Abnormal electrolytes addressed. Discussed with RN. Continue per consultants. October 31: Patient seen in ICU. Discussed with SERGIO Miller. ABG noted. Patient acidotic. Being transfused. Potassium is being replaced. Due for another ABG and possible intubation if needed. Conferred with pulmonary and cardiology. October 30: Labs reviewed. Potassium elevated. Kayexalate ordered. Continue to monitor hemoglobin hematocrit and renal parameters. Serum creatinine 2.1. Felisha ins on BiPAP. October 29: Seen in ICU. Discussed with SERGIO Wilkerson. Hemoglobin low. Transfuse 1 unit of packed RBCs. Potassium supplements IV given. Midodrine discontinued. Serum creatinine 2.2 stable. Patient remains on BiPAP. Continue per consultants. Continue to monitor hemoglobin hematocrit electrolytes and renal parameters. October 28: Seen in ICU. Remains on BiPAP. Low potassium and low magnesium addressed. Serum creatinine plateaued at 2.2. Continue per current treatment plan. October 27: Patient in ICU. On BiPAP. Serum creatinine rising. Blood pressure more stable. Will give 100 mg Lasix IV push with the hope of reversing oliguria. Medication list reviewed. Continue to monitor renal parameters. October 26: Seen in ICU. On pressors for low blood pressure. Serum creatinine 2.1. Albumin bolus given. Stress dose of steroids initiated. Continue to monitor renal parameters. Continue per consultants. October 25: Patient seen and examined. Trendelenburg. Blood pressure low. Tachycardic. Discussed with RN. Patient to be transferred to ICU. Discussed with ICU charge nurse and hospital charge nurse. Meanwhile patient started on Albumin bolus and 100 cc an hour D5 normal saline. Patient to be started on pressors while in ICU. Patient full code. October 24: No CHEM panel drawn today.. Renal parameters stable. Patient had a GT placed yesterday. Will check labs tomorrow. Medication list reviewed. October 23: Labs reviewed. Renal parameters unchanged. Creatinine 1.9. Continue current management. Medication list reviewed. October 22: Labs reviewed. Serum creatinine lower at 1.8. Patient started on clear liquid. Patient refuses p.o. medications and food at times. Continue per consultants. October 21: Labs reviewed. Serum creatinine unchanged. Continue per consultants. Continue to monitor renal parameters. October 20: Today's labs reviewed. Serum creatinine unchanged. RN reports patient not taking any p.o. meds. Continue per consultants. Serum creatinine appears to be baseline. October 19: Today's labs still not done yet. RN informed. Albumin bolus given again. Continue to monitor electrolytes and renal parameters. Per orders October 18: Patient hypotensive. Due for blood transfusion. Will give albumin bolus. Continue to monitor renal parameters and electrolytes. Labs and medication list reviewed Subjective ROS Limited/Unobtainable: Yes Objective Objective Last 24 Hour Vital Signs Date Time Temp Pulse Resp B/P (MAP) Pulse Ox O2 Delivery O2 Flow Rate FiO2 11/13/20 11:00 85 18 137/75 (95) 100 11/13/20 10:00 87 18 122/56 (78) 99 11/13/20 09:40 81 16 100 30 11/13/20 09:00 86 23 118/55 (76) 100 11/13/20 08:44 94 11/13/20 08:21 82 19 100 Bi-Pap 30 81 22 99 11/13/20 08:00 Bi-pap Bi-pap 11/13/20 08:00 98.4 92 27 148/74 (98) 100 11/13/20 08:00 87 11/13/20 08:00 30 11/13/20 07:25 100 Bi-Pap 30 11/13/20 07:25 76 23 100 30 11/13/20 07:00 82 23 137/73 (94) 100 11/13/20 06:00 84 20 147/64 (91) 100 11/13/20 05:16 84 22 100 30 11/13/20 05:00 84 23 137/58 (84) 100 11/13/20 04:00 83 11/13/20 04:00 98.4 85 20 122/57 (78) 100 11/13/20 04:00 Bi-pap Bi-pap 11/13/20 04:00 30 11/13/20 03:22 79 28 100 30 11/13/20 03:00 80 16 130/43 (72) 100 11/13/20 02:00 83 16 110/57 (74) 100 11/13/20 01:20 89 14 100 30 11/13/20 01:00 78 16 113/54 (73) 100 11/13/20 00:00 81 11/13/20 00:00 30 11/13/20 00:00 Bi-pap Bi-pap 11/13/20 00:00 98.6 90 16 123/63 (83) 100 3/18/21 23:00 86 15 103/37 (59) 100 11/12/20 22:43 94 19 100 Bi-Pap 30 84 19 100 11/12/20 22:00 82 17 106/41 (62) 100 11/12/20 21:05 85 24 100 30 11/12/20 21:00 86 19 133/53 (79) 100 11/12/20 20:00 98.4 92 22 136/95 (109) 99 11/12/20 20:00 82 11/12/20 20:00 30 11/12/20 20:00 Bi-pap Bi-pap 11/12/20 19:20 92 23 100 30 11/12/20 19:19 100 Bi-Pap 30 11/12/20 19:00 87 19 112/50 (70) 100 11/12/20 18:00 91 16 113/50 (71) 98 11/12/20 17:22 93 14 100 30 11/12/20 17:00 90 21 111/71 (84) 100 11/12/20 16:00 Bi-pap Bi-pap 11/12/20 16:00 98.0 88 21 104/56 (72) 100 11/12/20 16:00 30 11/12/20 15:41 94 22 99 Bi-Pap 30 96 24 100 11/12/20 15:03 98 11/12/20 15:00 89 23 100/34 (56) 99 11/12/20 14:00 83 20 106/42 (63) 97 11/12/20 13:48 30 11/12/20 13:01 35 11/12/20 13:00 85 17 100/41 (60) 90 11/12/20 12:29 98 26 95 30 11/12/20 12:28 24 11/12/20 12:27 2.0 11/12/20 12:00 Nasal Cannula 2.0 Nasal Cannula 2.0 11/12/20 12:00 2.0 11/12/20 12:00 98.2 91 11 113/55 (74) 99 11/12/20 12:00 97 Intake and Output 11/12/20 11/13/20 19:00 07:00 Intake Total 580 ml 540 ml Output Total 490 ml 510 ml Balance 90 ml 30 ml Free Water 100 ml Tube Feeding 480 ml 440 ml Other 100 ml Output Urine Total 290 ml 485 ml Stool Total 200 ml 25 ml # Voids 3 Current Medications Medications (Trade) Dose Ordered Sig/Yolanda Route PRN Reason Start Time Stop Time Status Last Admin Dose Admin Acetaminophen (Tylenol) 650 mg Q6H PRN GT Mild Pain (Pain Scale 1-3) 11/04/20 10:45 12/04/20 10:44 11/04/20 18:20 Acetaminophen (Tylenol) 650 mg Q6H PRN GT Temp >100.5 11/04/20 10:45 12/04/20 10:44 Apixaban (Eliquis) 2.5 mg BID GT 11/12/20 18:00 01/22/21 17:59 11/12/20 17:29 Chlorhexidine Gluconate (Eve-Hex 2%) 1 applic DAILY@2000 TOPIC 10/22/20 20:00 01/20/21 19:59 11/12/20 20:48 Digoxin (Lanoxin) 0.125 mg DAILY GT 10/30/20 09:00 01/28/21 08:59 11/13/20 08:44 Haloperidol Lactate 5 mg/ Dextrose 56 ml @ 224 mls/hr Q6H PRN IVPB Agitation 11/04/20 20:30 12/19/20 20:29 11/07/20 21:16 Levalbuterol HCl (Xopenex) 1.25 mg Q8HRT HHN 11/08/20 09:30 11/13/20 12:59 11/13/20 08:21 Levothyroxine Sodium (Synthroid) 50 mcg DAILY@0630 ORAL 10/19/20 06:30 11/18/20 06:29 11/13/20 06:12 Ondansetron HCl (Zofran) 4 mg Q6H PRN IVP Nausea & Vomiting 10/17/20 21:15 11/16/20 21:14 Pantoprazole (Protonix) 40 mg Q12HR IVP 11/02/20 21:00 11/25/20 20:59 11/13/20 08:43 Vitamin D (Vitamin D) 3,000 unit DAILY GT 11/12/20 09:00 12/12/20 08:59 11/13/20 08:44 Laboratory Tests 11/12/20 12:10: Arterial Blood pH 7.307L, Arterial Blood Partial Pressure CO2 84.5*H, Arterial Blood Partial Pressure O2 128.1H, Arterial Blood HCO3 41.3*H, Arterial Blood Oxygen Saturation 97.8, Arterial Blood Base Excess 12.6*H, Gallo Test Positive 11/12/20 17:54: POC Whole Blood Glucose 102 11/13/20 01:11: POC Whole Blood Glucose 119H 11/13/20 03:45: White Blood Count 4.2L, Red Blood Count 2.61L, Hemoglobin 7.8L, Hematocrit 25.3L , Mean Corpuscular Volume 97, Mean Corpuscular Hemoglobin 29.7, Mean Corpuscular Hemoglobin Concent 30.8L, Red Cell Distribution Width 19.0H, Platelet Count 112L , Mean Platelet Volume 9.2, Neutrophils (%) (Auto) , Lymphocytes (%) (Auto) , Monocytes (%) (Auto) , Eosinophils (%) (Auto) , Basophils (%) (Auto) , Differential Total Cells Counted 100, Neutrophils % (Manual) 76H, Lymphocytes % (Manual) 14L, Monocytes % (Manual) 5, Eosinophils % (Manual) 0, Basophils % (Manual) 0, Band Neutrophils 5, Platelet Estimate DecreasedL, Platelet Morphology Normal, Polychromasia 1+, Hypochromasia 2+, Anisocytosis 1+, Macrocytosis 1+, Ovalocytes Occasional, Stomatocytes Occasional, Sodium Level 152H, Potassium Level 4.2, Chloride Level 112H, Carbon Dioxide Level 40H, Anion Gap 0L, Blood Urea Nitrogen 57H, Creatinine 1.3, Estimat Glomerular Filtration Rate 39.1, Glucose Level 132H, Calcium Level 8.4L, Phosphorus Level 3.7, Magnesium Level 2.1, Total Bilirubin 0.5, Aspartate Amino Transf (AST/SGOT) 30, Alanine Aminotransferase (ALT/SGPT) 27, Alkaline Phosphatase 76, Total Protein 5.5L, Albumin 2.0L, Globulin 3.5, Albumin/Globulin Ratio 0.6L 11/13/20 10:45: Arterial Blood pH 7.400, Arterial Blood Partial Pressure CO2 56.9*H, Arterial Blood Partial Pressure O2 88.4, Arterial Blood HCO3 34.5H, Arterial Blood Oxygen Saturation 95.9, Arterial Blood Base Excess 8.6H, Gallo Test Positive Height (Feet): 5 Height (Inches): 0.00 Weight (Pounds): 145 General Appearance: no apparent distress EENT: other - On BiPAP Cardiovascular: tachycardia - Rate mid 80s Respiratory/Chest: decreased breath sounds Abdomen: distended Dustin Gómez MD Nov 13, 2020 11:56
--- NOTE | 2020-11-13 12:28 | Surgery Progress Note ---
Surgery Progress Note Subjective Procedure Performed left subclavian central venous catheter insertion Additional Comments no acute events on bipap labs noted abg noted Objective Last 24 Hour Vital Signs Date Time Temp Pulse Resp B/P (MAP) Pulse Ox O2 Delivery O2 Flow Rate FiO2 11/13/20 12:00 Bi-pap Bi-pap 11/13/20 12:00 30 11/13/20 12:00 98.2 85 14 134/67 (89) 100 11/13/20 11:00 85 18 137/75 (95) 100 11/13/20 10:00 87 18 122/56 (78) 99 11/13/20 09:40 81 16 100 30 11/13/20 09:00 86 23 118/55 (76) 100 11/13/20 08:44 94 11/13/20 08:21 82 19 100 Bi-Pap 30 81 22 99 11/13/20 08:00 Bi-pap Bi-pap 11/13/20 08:00 98.4 92 27 148/74 (98) 100 11/13/20 08:00 87 11/13/20 08:00 30 11/13/20 07:25 100 Bi-Pap 30 11/13/20 07:25 76 23 100 30 11/13/20 07:00 82 23 137/73 (94) 100 11/13/20 06:00 84 20 147/64 (91) 100 11/13/20 05:16 84 22 100 30 11/13/20 05:00 84 23 137/58 (84) 100 11/13/20 04:00 83 11/13/20 04:00 98.4 85 20 122/57 (78) 100 11/13/20 04:00 Bi-pap Bi-pap 11/13/20 04:00 30 11/13/20 03:22 79 28 100 30 11/13/20 03:00 80 16 130/43 (72) 100 11/13/20 02:00 83 16 110/57 (74) 100 11/13/20 01:20 89 14 100 30 11/13/20 01:00 78 16 113/54 (73) 100 11/13/20 00:00 81 11/13/20 00:00 30 11/13/20 00:00 Bi-pap Bi-pap 11/13/20 00:00 98.6 90 16 123/63 (83) 100 11/12/20 23:00 86 15 103/37 (59) 100 11/12/20 22:43 94 19 100 Bi-Pap 30 84 19 100 11/12/20 22:00 82 17 106/41 (62) 100 11/12/20 21:05 85 24 100 30 11/12/20 21:00 86 19 133/53 (79) 100 11/12/20 20:00 98.4 92 22 136/95 (109) 99 11/12/20 20:00 82 11/12/20 20:00 30 11/12/20 20:00 Bi-pap Bi-pap 11/12/20 19:20 92 23 100 30 11/12/20 19:19 100 Bi-Pap 30 11/12/20 19:00 87 19 112/50 (70) 100 11/12/20 18:00 91 16 113/50 (71) 98 11/12/20 17:22 93 14 100 30 11/12/20 17:00 90 21 111/71 (84) 100 11/12/20 16:00 Bi-pap Bi-pap 11/12/20 16:00 98.0 88 21 104/56 (72) 100 11/12/20 16:00 30 11/12/20 15:41 94 22 99 Bi-Pap 30 96 24 100 11/12/20 15:03 98 11/12/20 15:00 89 23 100/34 (56) 99 11/12/20 14:00 83 20 106/42 (63) 97 11/12/20 13:48 30 11/12/20 13:01 35 11/12/20 13:00 85 17 100/41 (60) 90 11/12/20 12:29 98 26 95 30 11/12/20 12:28 24 I&O Intake and Output 11/12/20 11/13/20 19:00 07:00 Intake Total 580 ml 540 ml Output Total 490 ml 510 ml Balance 90 ml 30 ml Free Water 100 ml Tube Feeding 480 ml 440 ml Other 100 ml Output Urine Total 290 ml 485 ml Stool Total 200 ml 25 ml # Voids 3 Dressing: saturated Cardiovascular: RSR Respiratory: decreased breath sounds, other Abdomen: soft, non-tender, present bowel sounds, non-distended Extremities: edema, no tenderness, no cyanosis Laboratory Tests Test 11/12/20 17:54 11/13/20 01:11 11/13/20 03:45 11/13/20 10:45 POC Whole Blood Glucose 102 MG/DL (74-106) 119 MG/DL (74-106) H White Blood Count 4.2 K/UL (4.8-10.8) L Red Blood Count 2.61 M/UL (4.20-5.40) L Hemoglobin 7.8 G/DL (12.0-16.0) L Hematocrit 25.3 % (37.0-47.0) L Mean Corpuscular Volume 97 FL (80-99) Mean Corpuscular Hemoglobin 29.7 PG (27.0-31.0) Mean Corpuscular Hemoglobin Concent 30.8 G/DL (32.0-36.0) L Red Cell Distribution Width 19.0 % (11.6-14.8) H Platelet Count 112 K/UL (150-450) L Mean Platelet Volume 9.2 FL (6.5-10.1) Neutrophils (%) (Auto) % (45.0-75.0) Lymphocytes (%) (Auto) % (20.0-45.0) Monocytes (%) (Auto) % (1.0-10.0) Eosinophils (%) (Auto) % (0.0-3.0) Basophils (%) (Auto) % (0.0-2.0) Differential Total Cells Counted 100 Neutrophils % (Manual) 76 % (45-75) H Lymphocytes % (Manual) 14 % (20-45) L Monocytes % (Manual) 5 % (1-10) Eosinophils % (Manual) 0 % (0-3) Basophils % (Manual) 0 % (0-2) Band Neutrophils 5 % (0-8) Platelet Estimate Decreased L Platelet Morphology Normal Polychromasia 1+ Hypochromasia 2+ Anisocytosis 1+ Macrocytosis 1+ Ovalocytes Occasional Stomatocytes Occasional Sodium Level 152 MMOL/L (136-145) H Potassium Level 4.2 MMOL/L (3.5-5.1) Chloride Level 112 MMOL/L (98-107) H Carbon Dioxide Level 40 MMOL/L (21-32) H Anion Gap 0 mmol/L (5-15) L Blood Urea Nitrogen 57 mg/dL (7-18) H Creatinine 1.3 MG/DL (0.55-1.30) Estimat Glomerular Filtration Rate 39.1 mL/min (>60) Glucose Level 132 MG/DL (74-106) H Calcium Level 8.4 MG/DL (8.5-10.1) L Phosphorus Level 3.7 MG/DL (2.5-4.9) Magnesium Level 2.1 MG/DL (1.8-2.4) Total Bilirubin 0.5 MG/DL (0.2-1.0) Aspartate Amino Transf (AST/SGOT) 30 U/L (15-37) Alanine Aminotransferase (ALT/SGPT) 27 U/L (12-78) Alkaline Phosphatase 76 U/L (46-116) Total Protein 5.5 G/DL (6.4-8.2) L Albumin 2.0 G/DL (3.4-5.0) L Globulin 3.5 g/dL Albumin/Globulin Ratio 0.6 (1.0-2.7) L Arterial Blood pH 7.400 (7.350-7.450) Arterial Blood Partial Pressure CO2 56.9 mmHg (35.0-45.0) *H Arterial Blood Partial Pressure O2 88.4 mmHg (75.0-100.0) Arterial Blood HCO3 34.5 mmol/L (22.0-26.0) H Arterial Blood Oxygen Saturation 95.9 % (95-100) Arterial Blood Base Excess 8.6 (-2-2) H Gallo Test Positive Plan Problems: (1) Anemia (2) Acute kidney injury (3) Atrial fibrillation (4) Hyperkalemia (5) Elevated troponin (6) Decubitus skin ulcer Assessment & Plan: Pt presented on admission with Multiple Medical Comorbidities including Covid-19 and Pressure Injuries. Primary Nurse reported Pt has been declining food and medications. Sacral DTPI that is evolving noted to Sacrum(L)6cm x (W)12.5cm.. Scattered Purpuric areas that are indurated noted to R and L cheek. Small wound that is 100% slough (L)0.6cm x (W)0.7cm noted at sacrococcygeal area within base of DTPI. MASD noted to Perineum and skin folds of Medial/posterior aspects of Both upper thighs. Affected areas are erythematous and macerated with scattered satellite lesions. DTPI L Heel (L)3cm x (W)4cm, Base of heel is maroon and fluctuant with small purpuric area (L)0.4cm x (W)0.9cm within base of DTPI. l Foot including toes are mottled and cool to touch. L Heel is boggy. L Heel including toes are Mottled and cool to touch. Tx.Plan: Apply Moisture Barrier Paste to Sacrum. Cover with Optifoam drsg.Change every 3 days and prn. Apply Moisture Barrier Paste to abdominal folds, Perineum and skin folds of both upper thighs. Apply Cavilon Skin Barrier to both heels. Cover each Heel with Optifoam drsg. Change every 7 days and prn. Reposition at least every 2hours or as tolerated. Off-load heels with pillow. (7) Malnutrition Assessment & Plan: She was able to self feed on right hand and took a bite of popsicle and tolerated without s.s of aspiration. After 1st bite, then she refused 2nd bite. After this was done, I offered her a cup of cranberry juice, she took few sips and tolerated without s.s of aspiration. I continued to offer but she refused further PO. A: 1. Functional swallow 2. Failure to thrive 3. abnormal electrolytes in setting of heart failure, NSTEMI, elevated BNP, etc.. P/Rec. 1. Pureed and thin liquid 2.3. Goal of care discussion DAILY ESTIMATED NEEDS: Needs based on Cardiac, pulmonary/ 51kg abw 25-30 kcals/kg 2027-4094 total kcals 1-1.5 g protein/kg 51-76 g total protein 20-25 mL/kg 9823-8774 total fluid mLs NUTRITION DIAGNOSIS: Swallowing difficulty R/T dysphagia, decreased cognitive fxn as evidenced by GROUND TRANSPORTATION OPERATOR recommends pureed moist texture diet at this time. CURRENT DIET:NPO PO DIET RECOMMENDATIONS: Liberalized REGULAR w/ poor PO (texture per GROUND TRANSPORTATION OPERATOR) ADDITIONAL RECOMMENDATIONS: * Calibrated bedscale wt * Monitor PO intake: refusing meds and foods at this time -> rec nonoral feeds w/ continued refusal of PO if part of POC * LOW NA diet w/ PO intake consistently >50% * 4 oz Ensure TID w/ meals (4oz at this time due to poor acceptance, may increase to 8oz w/ good acceptance) (8) Pneumonia due to COVID-19 virus Assessment & Plan: here appears to be increased left pleural fluid and generalized hazy parenchymal opacity, left greater than right. Heart remains enlarged Impression: Increased left pleural effusion Suspect increasing bilateral left greater than right pulmonary edema versus infiltrates worsening intubated on vent weaned extubated (9) Hypothyroidism Jim Orosco Nov 13, 2020 12:28
--- NOTE | 2020-11-13 13:45 | NUR ---
NURSE NOTES: Patient repositioned and placed readjusted bipap mask, the patient remains awake and moaning sounds. she is able to track and follow staff. remains on setting of 16/5 with fio2 of 30%. tube feeding remains at 40ml/hr.
--- NOTE | 2020-11-13 17:00 | NUR ---
NURSE NOTES: Dr. Reyes updated on the bedside of heart rhythm remaining in a-fibb at 92-103. no verbal orders given at this time.
--- NOTE | 2020-11-13 17:27 | Cardiac Electrophysiology PN ---
Assessment/Plan Assessment/Plan 1. NSTEMI with elevated troponin of more than 0.2 and hx of prior NV The level has come down to 0.19, but the levels are flat and likely due to renal failure as the creatinine is 2.1. On aspirin and off Lopressor as hypotensive 2. Atrial fibrillation with rapid ventricular response. Off Lopressor for low BP On Dig 0.125 PEG daily and Eliquis 2.5 bid( hels now for Hb 7.8). Dig level 1.7 3. Respiratory failure , Extubated 11/06/20. On Diamox and BIPAP Likely will need tracheostomy 4. S/P Septic shock, off Levophed 5. Renal insufficiency. BUN 52/ Cr 1.3. On Diamox 6. Status post COVID pneumonia, was tested positive more than two weeks ago. Now is Covid negative 7. Dysphagia, S/P PEG 10/23/[address] Full code. DW Dr. Gómez Subjective Subjective In ICU off pressors. Covid negative 10/25 and is off isolation In atrial fib Dig level 1.7 Extubated 11/06/20. Back on BIPAP Eliquis was held today as Hb drpped to 7.8 Objective Last 24 Hour Vital Signs Date Time Temp Pulse Resp B/P (MAP) Pulse Ox O2 Delivery O2 Flow Rate FiO2 11/13/20 17:00 80 8 122/58 (79) 100 11/13/20 16:00 Bi-pap Bi-pap 11/13/20 16:00 98.0 80 14 100/54 (69) 100 11/13/20 16:00 30 11/13/20 16:00 72 11/13/20 15:22 95 31 100 30 11/13/20 15:00 79 23 131/59 (83) 100 11/13/20 14:00 88 20 141/57 (85) 100 11/13/20 13:00 88 14 130/74 (92) 98 11/13/20 12:36 80 21 100 30 11/13/20 12:00 Bi-pap Bi-pap 11/13/20 12:00 83 11/13/20 12:00 30 11/13/20 12:00 98.2 85 14 134/67 (89) 100 11/13/20 11:11 84 13 100 30 11/13/20 11:00 85 18 137/75 (95) 100 11/13/20 10:00 87 18 122/56 (78) 99 11/13/20 09:40 81 16 100 30 11/13/20 09:00 86 23 118/55 (76) 100 11/13/20 08:44 94 11/13/20 08:21 82 19 100 Bi-Pap 30 81 22 99 11/13/20 08:00 Bi-pap Bi-pap 11/13/20 08:00 98.4 92 27 148/74 (98) 100 11/13/20 08:00 87 11/13/20 08:00 30 11/13/20 07:25 100 Bi-Pap 30 11/13/20 07:25 76 23 100 30 11/13/20 07:00 82 23 137/73 (94) 100 11/13/20 06:00 84 20 147/64 (91) 100 11/13/20 05:16 84 22 100 30 11/13/20 05:00 84 23 137/58 (84) 100 11/13/20 04:00 83 11/13/20 04:00 98.4 85 20 122/57 (78) 100 11/13/20 04:00 Bi-pap Bi-pap 11/13/20 04:00 30 11/13/20 03:22 79 28 100 30 11/13/20 03:00 80 16 130/43 (72) 100 11/13/20 02:00 83 16 110/57 (74) 100 11/13/20 01:20 89 14 100 30 11/13/20 01:00 78 16 113/54 (73) 100 11/13/20 00:00 81 11/13/20 00:00 30 11/13/20 00:00 Bi-pap Bi-pap 11/13/20 00:00 98.6 90 16 123/63 (83) 100 11/12/20 23:00 86 15 103/37 (59) 100 11/12/20 22:43 94 19 100 Bi-Pap 30 84 19 100 11/12/20 22:00 82 17 106/41 (62) 100 11/12/20 21:05 85 24 100 30 11/12/20 21:00 86 19 133/53 (79) 100 11/12/20 20:00 98.4 92 22 136/95 (109) 99 11/12/20 20:00 82 11/12/20 20:00 30 11/12/20 20:00 Bi-pap Bi-pap 11/12/20 19:20 92 23 100 30 11/12/20 19:19 100 Bi-Pap 30 11/12/20 19:00 87 19 112/50 (70) 100 11/12/20 18:00 91 16 113/50 (71) 98 Intake and Output 11/12/20 11/13/20 19:00 07:00 Intake Total 580 ml 540 ml Output Total 490 ml 510 ml Balance 90 ml 30 ml Free Water 100 ml Tube Feeding 480 ml 440 ml Other 100 ml Output Urine Total 290 ml 485 ml Stool Total 200 ml 25 ml # Voids 3 Laboratory Tests Test 11/12/20 17:54 11/13/20 01:11 11/13/20 03:45 11/13/20 10:45 POC Whole Blood Glucose 102 MG/DL (74-106) 119 MG/DL (74-106) H White Blood Count 4.2 K/UL (4.8-10.8) L Red Blood Count 2.61 M/UL (4.20-5.40) L Hemoglobin 7.8 G/DL (12.0-16.0) L Hematocrit 25.3 % (37.0-47.0) L Mean Corpuscular Volume 97 FL (80-99) Mean Corpuscular Hemoglobin 29.7 PG (27.0-31.0) Mean Corpuscular Hemoglobin Concent 30.8 G/DL (32.0-36.0) L Red Cell Distribution Width 19.0 % (11.6-14.8) H Platelet Count 112 K/UL (150-450) L Mean Platelet Volume 9.2 FL (6.5-10.1) Neutrophils (%) (Auto) % (45.0-75.0) Lymphocytes (%) (Auto) % (20.0-45.0) Monocytes (%) (Auto) % (1.0-10.0) Eosinophils (%) (Auto) % (0.0-3.0) Basophils (%) (Auto) % (0.0-2.0) Differential Total Cells Counted 100 Neutrophils % (Manual) 76 % (45-75) H Lymphocytes % (Manual) 14 % (20-45) L Monocytes % (Manual) 5 % (1-10) Eosinophils % (Manual) 0 % (0-3) Basophils % (Manual) 0 % (0-2) Band Neutrophils 5 % (0-8) Platelet Estimate Decreased L Platelet Morphology Normal Polychromasia 1+ Hypochromasia 2+ Anisocytosis 1+ Macrocytosis 1+ Ovalocytes Occasional Stomatocytes Occasional Sodium Level 152 MMOL/L (136-145) H Potassium Level 4.2 MMOL/L (3.5-5.1) Chloride Level 112 MMOL/L (98-107) H Carbon Dioxide Level 40 MMOL/L (21-32) H Anion Gap 0 mmol/L (5-15) L Blood Urea Nitrogen 57 mg/dL (7-18) H Creatinine 1.3 MG/DL (0.55-1.30) Estimat Glomerular Filtration Rate 39.1 mL/min (>60) Glucose Level 132 MG/DL (74-106) H Calcium Level 8.4 MG/DL (8.5-10.1) L Phosphorus Level 3.7 MG/DL (2.5-4.9) Magnesium Level 2.1 MG/DL (1.8-2.4) Total Bilirubin 0.5 MG/DL (0.2-1.0) Aspartate Amino Transf (AST/SGOT) 30 U/L (15-37) Alanine Aminotransferase (ALT/SGPT) 27 U/L (12-78) Alkaline Phosphatase 76 U/L (46-116) Total Protein 5.5 G/DL (6.4-8.2) L Albumin 2.0 G/DL (3.4-5.0) L Globulin 3.5 g/dL Albumin/Globulin Ratio 0.6 (1.0-2.7) L Arterial Blood pH 7.400 (7.350-7.450) Arterial Blood Partial Pressure CO2 56.9 mmHg (35.0-45.0) *H Arterial Blood Partial Pressure O2 88.4 mmHg (75.0-100.0) Arterial Blood HCO3 34.5 mmol/L (22.0-26.0) H Arterial Blood Oxygen Saturation 95.9 % (95-100) Arterial Blood Base Excess 8.6 (-2-2) H Gallo Test Positive Objective HEAD AND NECK: No JVD. LUNGS: Decreased breath sounds. CARDIOVASCULAR: Irregular S1 and S2 with no gallop. ABDOMEN: Soft.S/P PEG EXTREMITIES: No pitting edema. Terry Reyes MD Nov 13, 2020 17:27
--- NOTE | 2020-11-13 18:30 | NUR ---
NURSE NOTES: wound care provided on the nose bridge, nose bridge wound is not oozing with black granulated tissue, applied calazime, versitel, and silvasorb. soft tape around the face replaced and reapplied bipap full mask.
--- NOTE | 2020-11-13 19:20 | NUR ---
Received report from SERGIO Wilkerson and assumed care of patient. patient appears to be resting comfortably on the Bipap machine. VSS, patient in no acute distress.
--- NOTE | 2020-11-13 19:23 | NUR ---
NURSE HAND-OFF REPORT: Latest Vital Signs: Temperature 98.0 , Pulse 88 , B/P 143 /51 , Respiratory Rate 23 , O2 SAT 100 , Simple Mask, O2 Flow Rate 2.0 . Vital Sign Comment: EKG Rhythm: Atrial Fibrillation Rhythm change?: N MD Notified?: - MD Response: Latest Elizabeth Fall Score: 50 Fall Risk: High Risk Safety Measures: Call light Within Reach, Bed Alarm Zone 1, Side Rails Side Rails x3, Bed position Low and Locked. Fall Precautions: Yellow Socks Door Sign Patient Fall Education Report given to SERGIO Burns.
[2020-11-13] MEDS: Dyna-Hex 2% Top Sol 2oz TOPIC SCH (20:00)
--- NOTE | 2020-11-13 20:30 | NUR ---
Assessment completed. See charting for details. Patient restless and got right hand mitten off and disconnected Bipap hose. patient was banging hose against her mask. Placed mitten back onto hand and reconnected Bipap mask. Patient in no acute distress and vitals remain stable.
--- NOTE | 2020-11-13 22:30 | NUR ---
Pt remains stable. No change in condition. Pt in NAD and VSS.
--- NOTE | 2020-11-13 22:52 | General Progress Note ---
Subjective ROS Limited/Unobtainable: Yes Allergies: Coded Allergies: No Known Allergies (Unverified , 10/17/20) Objective Last 24 Hour Vital Signs Date Time Temp Pulse Resp B/P (MAP) Pulse Ox O2 Delivery O2 Flow Rate FiO2 11/13/20 22:32 92 26 100 30 11/13/20 22:00 87 26 124/49 (74) 100 11/13/20 21:03 88 28 100 30 11/13/20 21:00 84 22 131/77 (95) 100 11/13/20 20:00 98.4 87 21 121/51 (74) 99 11/13/20 20:00 30 11/13/20 20:00 Bi-pap Bi-pap 11/13/20 19:08 88 23 100 30 11/13/20 19:07 100 Bi-Pap 30 11/13/20 19:00 86 21 119/68 (85) 100 11/13/20 18:00 83 24 143/51 (81) 100 11/13/20 17:20 92 28 98 30 11/13/20 17:00 80 8 122/58 (79) 100 11/13/20 16:00 Bi-pap Bi-pap 11/13/20 16:00 98.0 80 14 100/54 (69) 100 11/13/20 16:00 30 11/13/20 16:00 72 11/13/20 15:22 95 31 100 30 11/13/20 15:00 79 23 131/59 (83) 100 11/13/20 14:00 88 20 141/57 (85) 100 11/13/20 13:00 88 14 130/74 (92) 98 11/13/20 12:36 80 21 100 30 11/13/20 12:00 Bi-pap Bi-pap 11/13/20 12:00 83 11/13/20 12:00 30 11/13/20 12:00 98.2 85 14 134/67 (89) 100 11/13/20 11:11 84 13 100 30 11/13/20 11:00 85 18 137/75 (95) 100 11/13/20 10:00 87 18 122/56 (78) 99 11/13/20 09:40 81 16 100 30 11/13/20 09:00 86 23 118/55 (76) 100 11/13/20 08:44 94 11/13/20 08:21 82 19 100 Bi-Pap 30 81 22 99 11/13/20 08:00 Bi-pap Bi-pap 11/13/20 08:00 98.4 92 27 148/74 (98) 100 11/13/20 08:00 87 11/13/20 08:00 30 11/13/20 07:25 100 Bi-Pap 30 11/13/20 07:25 76 23 100 30 11/13/20 07:00 82 23 137/73 (94) 100 11/13/20 06:00 84 20 147/64 (91) 100 11/13/20 05:16 84 22 100 30 11/13/20 05:00 84 23 137/58 (84) 100 11/13/20 04:00 83 11/13/20 04:00 98.4 85 20 122/57 (78) 100 11/13/20 04:00 Bi-pap Bi-pap 11/13/20 04:00 30 11/13/20 03:22 79 28 100 30 11/13/20 03:00 80 16 130/43 (72) 100 11/13/20 02:00 83 16 110/57 (74) 100 11/13/20 01:20 89 14 100 30 11/13/20 01:00 78 16 113/54 (73) 100 11/13/20 00:00 81 11/13/20 00:00 30 11/13/20 00:00 Bi-pap Bi-pap 11/13/20 00:00 98.6 90 16 123/63 (83) 100 11/12/20 23:00 86 15 103/37 (59) 100 Intake and Output 11/12/20 11/13/20 19:00 07:00 Intake Total 580 ml 580 ml Output Total 490 ml 540 ml Balance 90 ml 40 ml Free Water 100 ml Tube Feeding 480 ml 480 ml Other 100 ml Output Urine Total 290 ml 515 ml Stool Total 200 ml 25 ml # Voids 3 Laboratory Tests 11/13/20 01:11: POC Whole Blood Glucose 119H 11/13/20 03:45: White Blood Count 4.2L, Red Blood Count 2.61L, Hemoglobin 7.8L, Hematocrit 25.3L , Mean Corpuscular Volume 97, Mean Corpuscular Hemoglobin 29.7, Mean Corpuscular Hemoglobin Concent 30.8L, Red Cell Distribution Width 19.0H, Platelet Count 112L , Mean Platelet Volume 9.2, Neutrophils (%) (Auto) , Lymphocytes (%) (Auto) , M onocytes (%) (Auto) , Eosinophils (%) (Auto) , Basophils (%) (Auto) , Differential Total Cells Counted 100, Neutrophils % (Manual) 76H, Lymphocytes % (Manual) 14L, Monocytes % (Manual) 5, Eosinophils % (Manual) 0, Basophils % (Manual) 0, Band Neutrophils 5, Platelet Estimate DecreasedL, Platelet Morphology Normal, Polychromasia 1+, Hypochromasia 2+, Anisocytosis 1+, Macrocytosis 1+, Ovalocytes Occasional, Stomatocytes Occasional, Sodium Level 152H, Potassium Level 4.2, Chloride Level 112H, Carbon Dioxide Level 40H, Anion Gap 0L, Blood Urea Nitrogen 57H, Creatinine 1.3, Estimat Glomerular Filtration Rate 39.1, Glucose Level 132H, Calcium Level 8.4L, Phosphorus Level 3.7, Magnesi um Level 2.1, Total Bilirubin 0.5, Aspartate Amino Transf (AST/SGOT) 30, Alanine Aminotransferase (ALT/SGPT) 27, Alkaline Phosphatase 76, Total Protein 5.5L, Albumin 2.0L, Globulin 3.5, Albumin/Globulin Ratio 0.6L 11/13/20 10:45: Arterial Blood pH 7.400, Arterial Blood Partial Pressure CO2 56.9*H, Arterial Blood Partial Pressure O2 88.4, Arterial Blood HCO3 34.5H, Arterial Blood Oxygen Saturation 95.9, Arterial Blood Base Excess 8.6H, Gallo Test Positive Height (Feet): 5 Height (Inches): 0.00 Weight (Pounds): 145 Assessment/Plan Problem List: (1) Anemia ICD Codes: D64.9 - Anemia, unspecified SNOMED: 250877666 (2) Acute kidney injury ICD Codes: N17.9 - Acute kidney failure, unspecified SNOMED: 52308699, 4948320 (3) Atrial fibrillation ICD Codes: I48.91 - Unspecified atrial fibrillation SNOMED: 78503306 (4) Elevated troponin ICD Codes: R77.8 - Other specified abnormalities of plasma proteins SNOMED: 600098710, 264602019, 042968792 (5) Malnutrition ICD Codes: E46 - Unspecified protein-calorie malnutrition SNOMED: 16492679 (6) Pneumonia due to COVID-19 virus ICD Codes: U07.1 - COVID-19; J12.82 - Pneumonia due to coronavirus disease 2019 SNOMED: 552058976262348453 (7) Hypothyroidism ICD Codes: E03.9 - Hypothyroidism, unspecified SNOMED: 64937093 Status: progressing, unchanged Assessment/Plan: pna not imrpoving intermittent bipap resp insuff sepsis Neri Dumont MD Nov 13, 2020 22:52
[2020-11-14] VITALS (24 sets, daily range): BP systolic 112–154; BP diastolic 41–75
--- NOTE | 2020-11-14 01:24 | NUR ---
Pt agitated and not sleeping. Attempted oral care and patient continues to clamp down jaw and refuse to let oral care take place. Cleansed lips and teeth as much as possible. Pt continues to wiggle out of mittens with effort and disconnects Bipap mask. Reconnected and will continue to monitor.
--- NOTE | 2020-11-14 01:25 | NUR ---
Agitation remains, inability to sleep. Administered haldol, see eMAR for details.
[2020-11-14] MEDS: Haloperidol Lactate 5 MG in D5W 55 ML IVPB PRN (01:26)
--- NOTE | 2020-11-14 04:00 | NUR ---
0400 assessment completed. Pt continues to be agitated/restlesws overnight and is not sleeping. Patient continues to yell out in [place], unable to understand what she is saying. Attempt to reposition, provide oral care, and provide relaxation techniques to anticipate needs and calm patient. VS remain stable and patient is in no acute distress. See charting for assessment details. Will continue to monitor.
--- NOTE | 2020-11-14 06:15 | NUR ---
Patient underpad changed, CHG bath provided. patient in no acute distress on BIPAP. Patient up all night without sleep. Pt appears to be sleeping post bath and repositioning. Will continue to monitor.
[2020-11-14 06:35] LABS: HEMATOCRIT 24.9 % (37.0-47.0); HEMOGLOBIN 7.6 G/DL (12.0-16.0); MEAN CORPUSCULAR VOLUME 97 FL (80-99); PLATELET COUNT 156 K/UL (150-450); RED BLOOD COUNT 2.57 M/UL (4.20-5.40); RED CELL DISTRIBUTION WIDTH 18.7 % (11.6-14.8); WHITE BLOOD COUNT 5.6 K/UL (4.8-10.8)
--- NOTE | 2020-11-14 07:15 | NUR ---
NURSE NOTES: Report received from Katy Fernández Travelling RN.Pt asleep wakes up on and off,tries to grab Bipap tubing,hands covered with mittens but not tied,easily desaturates when Bipap is off,settings 15/5 Fio2 30%, no signs of pain or discomfort,Afib on the monitor,GT feeding Glucerna 1.5 at 40 ml/hr,no residual noted,Green cath draining to minimal amount of yellow urine,Rectal tube in placed with liquid brown stools,skin warm and dry with IV site to Lt SC TLC intact, SR up x2 HOB elevated bed lock in lowest position,will continue with plans of care.
--- NOTE | 2020-11-14 07:28 | NUR ---
Respiratory note: PT received on BIPAP with current settings: 16/ RR:12, 30% Pt tolerating BIPAP well. No SOB noted. Small old wound noted on bridge of nose. Elsie HILL is aware. PT is currently on full face mask, unable to change to facial mask due to wound. Will continue to closely monitor. At this time mask was re-adjusted and face was re-taped. PT's saturation dropped to 87% while I was replacing the tape on her face. Elsie HILL is aware of quick desaturation. Will continue to closely monitor.
--- NOTE | 2020-11-14 07:53 | General Progress Note ---
Subjective ROS Limited/Unobtainable: No Allergies: Coded Allergies: No Known Allergies (Unverified , 10/17/20) Subjective intubated now Objective Last 24 Hour Vital Signs Date Time Temp Pulse Resp B/P (MAP) Pulse Ox O2 Delivery O2 Flow Rate FiO2 11/14/20 07:26 98 Bi-Pap 30 11/14/20 07:26 84 28 98 30 11/14/20 06:00 89 26 126/53 (77) 98 11/14/20 05:03 85 26 100 30 11/14/20 05:00 92 24 140/61 (87) 96 11/14/20 04:00 Bi-pap Bi-pap 11/14/20 04:00 86 11/14/20 04:00 98.5 91 29 127/75 (92) 99 11/14/20 04:00 30 11/14/20 03:00 91 31 147/62 (90) 99 11/14/20 02:19 84 30 100 30 11/14/20 02:00 86 32 143/53 (83) 100 11/14/20 01:08 89 32 100 30 11/14/20 01:00 91 22 134/68 (90) 100 11/14/20 00:00 30 11/14/20 00:00 79 11/14/20 00:00 98.6 87 24 122/63 (82) 100 11/14/20 00:00 Bi-pap Bi-pap 11/13/20 23:00 87 20 135/52 (79) 100 11/13/20 22:32 92 26 100 30 11/13/20 22:00 87 26 124/49 (74) 100 11/13/20 21:03 88 28 100 30 11/13/20 21:00 84 22 131/77 (95) 100 11/13/20 20:00 98.4 87 21 121/51 (74) 99 11/13/20 20:00 82 11/13/20 20:00 30 11/13/20 20:00 Bi-pap Bi-pap 11/13/20 19:08 88 23 100 30 11/13/20 19:07 100 Bi-Pap 30 11/13/20 19:00 86 21 119/68 (85) 100 11/13/20 18:00 83 24 143/51 (81) 100 3/19/21 17:20 92 28 98 30 11/13/20 17:00 80 8 122/58 (79) 100 11/13/20 16:00 Bi-pap Bi-pap 11/13/20 16:00 98.0 80 14 100/54 (69) 100 11/13/20 16:00 30 11/13/20 16:00 72 11/13/20 15:22 95 31 100 30 11/13/20 15:00 79 23 131/59 (83) 100 11/13/20 14:00 88 20 141/57 (85) 100 11/13/20 13:00 88 14 130/74 (92) 98 11/13/20 12:36 80 21 100 30 11/13/20 12:00 Bi-pap Bi-pap 11/13/20 12:00 83 11/13/20 12:00 30 11/13/20 12:00 98.2 85 14 134/67 (89) 100 11/13/20 11:11 84 13 100 30 11/13/20 11:00 85 18 137/75 (95) 100 11/13/20 10:00 87 18 122/56 (78) 99 11/13/20 09:40 81 16 100 30 11/13/20 09:00 86 23 118/55 (76) 100 11/13/20 08:44 94 11/13/20 08:21 82 19 100 Bi-Pap 30 81 22 99 11/13/20 08:00 Bi-pap Bi-pap 11/13/20 08:00 98.4 92 27 148/74 (98) 100 11/13/20 08:00 87 11/13/20 08:00 30 Intake and Output 11/13/20 11/14/20 19:00 07:00 Intake Total 1410 ml 890 ml Output Total 520 ml 385 ml Balance 890 ml 505 ml Free Water 250 ml 150 ml IV Total 650 ml 300 ml Tube Feeding 480 ml 440 ml Other 30 ml Output Urine Total 420 ml 385 ml Stool Total 100 ml Laboratory Tests 11/13/20 10:45: Arterial Blood pH 7.400, Arterial Blood Partial Pressure CO2 56.9*H, Arterial Blood Partial Pressure O2 88.4, Arterial Blood HCO3 34.5H, Arterial Blood Oxygen Saturation 95.9, Arterial Blood Base Excess 8.6H, Gallo Test Positive 11/14/20 00:23: POC Whole Blood Glucose [Pending] 11/14/20 05:50: White Blood Count 5.6, Red Blood Count 2.57L, Hemoglobin 7.6L, Hematocrit 24.9L, Mean Corpuscular Volume 97, Mean Corpuscular Hemoglobin 29.7, Mean Corpuscular Hemoglobin Concent 30.7L, Red Cell Distribution Width 18.7H, Platelet Count 156, Mean Platelet Volume 8.6, Neutrophils (%) (Auto) , Lymphocytes (%) (Auto) , Monocytes (%) (Auto) , Eosinophils (%) (Auto) , Basophils (%) (Auto) , Neutrophils % (Manual) [Pending], Lymphocytes % (Manual) [Pending], Platelet Estimate [Pending], Platelet Morphology [Pending], Sodium Level [Pending], Potassium Level [Pending], Chloride Level [Pending], Carbon Dioxide Level [Pending], Blood Urea Nitrogen [Pending], Creatinine [Pending], Estimat Glomerular Filtration Rate [Pending], Glucose Level [Pending], Uric Acid [Pending], Calcium Level [Pending], Phosphorus Level [Pending], Magnesium Level [Pending], Total Bilirubin [Pending], Aspartate Amino Transf (AST/SGOT) [Pending], Alanine Aminotransferase (ALT/SGPT) [Pending], Alkaline Phosphatase [Pending], C-Reactive Protein, Quantitative [Pending], Pro-B-Type Natriuretic Peptide [Pending], Total Protein [Pending], Albumin [Pending], Globulin [Pending] 11/14/20 06:22: POC Whole Blood Glucose [Pending] Height (Feet): 5 Height (Inches): 0.00 Weight (Pounds): 145 General Appearance: agitated EENT: normal ENT inspection Neck: supple Cardiovascular: normal rate Respiratory/Chest: decreased breath sounds Abdomen: hypoactive bowel sounds Extremities: non-tender Assessment/Plan Problem List: (1) Hypothyroidism ICD Codes: E03.9 - Hypothyroidism, unspecified SNOMED: 00644461 (2) Pneumonia due to COVID-19 virus ICD Codes: U07.1 - COVID-19; J12.82 - Pneumonia due to coronavirus disease 2019 SNOMED: 591443646749632691 (3) Malnutrition ICD Codes: E46 - Unspecified protein-calorie malnutrition SNOMED: 99215284 (4) Decubitus skin ulcer ICD Codes: L89.90 - Pressure ulcer of unspecified site, unspecified stage SNOMED: 382700575 (5) Elevated troponin ICD Codes: R77.8 - Other specified abnormalities of plasma proteins SNOMED: 407635325, 266766097, 767137501 (6) Atrial fibrillation ICD Codes: I48.91 - Unspecified atrial fibrillation SNOMED: 55629298 (7) Anemia ICD Codes: D64.9 - Anemia, unspecified SNOMED: 488895460 Status: progressing, unchanged Assessment/Plan: GTF fu cardiology fu pulm labs for AM on BIPAP monitor for residuals Skyler Tobar MD Nov 14, 2020 07:53
--- NOTE | 2020-11-14 07:57 | NUR ---
RESPIRATORY NOTE: ABG drawn at this time. Results given to Elsie HILL.
--- NOTE | 2020-11-14 08:11 | NUR ---
RESPIRATORY NOTE: Set respiratory rate increased to 18 post ABG result. Elsie HILL and charge nurse notified.
[2020-11-14] MEDS: Pantoprazole Inj IVP SCH ×2 (08:52→20:29)
[2020-11-14] MEDS: Vitamin D 1000 units Tab GT SCH (08:53)
[2020-11-14] MEDS: Eliquis 2.5mg tablet GT SCH ×2 (08:53→17:49)
[2020-11-14] MEDS: Digoxin 0.125mg tab GT SCH (08:53)
[2020-11-14 08:58] LABS: ALANINE AMINOTRANSFERASE 31 U/L (12-78); ALBUMIN 2.2 G/DL (3.4-5.0); ALBUMIN/GLOBULIN RATIO 0.6 (1.0-2.7); ALKALINE PHOSPHATASE 83 U/L (46-116); ANION GAP 6 mmol/L (5-15); ASPARTATE AMINO TRANSFERASE 36 U/L (15-37); BILIRUBIN,TOTAL 0.6 MG/DL (0.2-1.0); BLOOD UREA NITROGEN 50 mg/dL (7-18); CALCIUM 8.3 MG/DL (8.5-10.1); CARBON DIOXIDE 37 MMOL/L (21-32); CHLORIDE 109 MMOL/L (98-107); CREATININE 1.2 MG/DL (0.55-1.30); PHOSPHORUS 3.2 MG/DL (2.5-4.9); POTASSIUM 4.1 MMOL/L (3.5-5.1); SODIUM 152 MMOL/L (136-145)
--- NOTE | 2020-11-14 09:30 | NUR ---
NURSE NOTES: Pt restless,Pulled up, turned and repositioned.
--- NOTE | 2020-11-14 09:31 | Nephrology Progress Note ---
Assessment/Plan Problem List: (1) Acute kidney injury (2) Anemia (3) Hyperkalemia (4) Elevated troponin (5) Pneumonia due to COVID-19 virus (6) Hypothyroidism Assessment Plan November 14: Seen in ICU. Remains on BiPAP. Labs reviewed. Hemoglobin remains low. 2 units of transfusion ordered. 1 L of D5W for elevated serum sodium. Continue to monitor renal parameters and electrolytes. Continue per consultants. November 13: Discussed with SERGIO Wilkerson. Remains on BiPAP. ABG reviewed. Labs reviewed. 1 L D5W for rising serum sodium given. Continue per pulmonary. November 12: Discussed with RN. On BiPAP. ABG labs and medication list reviewed. Patient full code. Continue per pulmonary. November 11: Remains on BiPAP. Labs reviewed. Serum sodium lower. Potassium stable. Continue per consultants. November 10: On BiPAP. ABG reviewed. On Diamox. Serum sodium rising. 1 L D5W given. Continue to monitor renal parameters. Low vitamin D level of 13 addressed. November 09: Patient getting started on BiPAP. Is retaining CO2. Discussed with . We will start Diamox. Continue to monitor renal parameters. November 08: On oxygen mask. Labs reviewed. Patient full code. Continues to be extubated. Continue pulmonary toilet. Monitor renal parameters. Discussed with RN. Serum creatinine 1.6 at its lowest. November 07: Patient remains on nasal cannula. Full code. Labs reviewed. Low magnesium addressed. Discussed with SERGIO Wilkerson. Continue present care. November 06: Patient is now extubated. Labs reviewed. Medication list reviewed. Serum creatinine stable. Continue post extubation care. November 05: Mental status improved. Labs and medication list reviewed. Serum creatinine 2.2. Weaning trial in process. Continue per consultants. November 04: Full code. Intubated. Labs reviewed. Low potassium addressed. Serum creatinine stable 2.3. Continue per consultants. Weaning as possible. November 03: Remains full code. Remains intubated. FiO2 30%. Discussed with RN. Low potassium addressed. Patient remains on Lasix. Continue to monitor renal parameters. Serum creatinine slightly rising. November 02: Patient remains intubated on ventilator. FiO2 30%. Labs reviewed. Low potassium addressed. Medication list reviewed. Patient on Lasix 40 mg every 8 hours. Serum creatinine higher to 2.3. Feeding changed to Nepro. Potassium supplement given. Continue to monitor renal parameters. November 01: Seen in ICU. Now intubated on ventilator. Discussed with RN. Labs results noted. Abnormal electrolytes addressed. Discussed with RN. Continue per consultants. October 31: Patient seen in ICU. Discussed with SERGIO Miller. ABG noted. Patient acidotic. Being transfused. Potassium is being replaced. Due for another ABG and possible intubation if needed. Conferred with pulmonary and cardiology. October 30: Labs reviewed. Potassium elevated. Kayexalate ordered. Continue to monitor hemoglobin hematocrit and renal parameters. Serum creatinine 2.1. Remains on BiPAP. October 29: Seen in ICU. Discussed with SERGIO Wilkerson. Hemoglobin low. Transfuse 1 unit of packed RBCs. Potassium supplements IV given. Midodrine discontinued. Serum creatinine 2.2 stable. Patient remains on BiPAP. Continue per consultants. Continue to monitor hemoglobin hematocrit electrolytes and renal parameters. October 28: Seen in ICU. Remains on BiPAP. Low potassium and low magnesium addressed. Serum creatinine plateaued at 2.2. Continue per current treatment plan. October 27: Patient in ICU. On BiPAP. Serum creatinine rising. Blood pressure more stable. Will give 100 mg Lasix IV push with the hope of reversing oliguria. Medication list reviewed. Continue to monitor renal parameters. October 26: Seen in ICU. On pressors for low blood pressure. Serum creatinine 2.1. Albumin bolus given. Stress dose of steroids initiated. Continue to monitor renal parameters. Continue per consultants. October 25: Patient seen and examined. Trendelenburg. Blood pressure low. Tachycardic. Discussed with RN. Patient to be transferred to ICU. Discussed with ICU charge nurse and hospital charge nurse. Meanwhile patient started on Albumin bolus and 100 cc an hour D5 normal saline. Patient to be started on pressors while in ICU. Patient full code. October 24: No CHEM panel drawn today.. Renal parameters stable. Patient had a GT placed yesterday. Will check labs tomorrow. Medication list reviewed. October 23: Labs reviewed. Renal parameters unchanged. Creatinine 1.9. Continue current management. Medication list reviewed. October 22: Labs reviewed. Serum creatinine lower at 1.8. Patient started on clear liquid. Patient refuses p.o. medications and food at times. Continue per consultants. October 21: Labs reviewed. Serum creatinine unchanged. Continue per consultants. Continue to monitor renal parameters. October 20: Today's labs reviewed. Serum creatinine unchanged. RN reports patient not taking any p.o. meds. Continue per consultants. Serum creatinine appears to be baseline. October 19: Today's labs still not done yet. RN informed. Albumin bolus given again. Continue to monitor electrolytes and renal parameters. Per orders October 18: Patient hypotensive. Due for blood transfusion. Will give albumin bolus. Continue to monitor renal parameters and electrolytes. Labs and medication list reviewed Subjective ROS Limited/Unobtainable: Yes Objective Objective Last 24 Hour Vital Signs Date Time Temp Pulse Resp B/P (MAP) Pulse Ox O2 Delivery O2 Flow Rate FiO2 11/14/20 09:03 80 25 100 30 11/14/20 09:00 92 30 112/48 (69) 99 11/14/20 08:53 92 11/14/20 08:11 92 31 99 30 11/14/20 08:00 30 11/14/20 08:00 96 11/14/20 08:00 Bi-pap Bi-pap 11/14/20 08:00 98.6 95 20 130/58 (82) 99 11/14/20 07:26 98 Bi-Pap 30 11/14/20 07:26 84 28 98 30 11/14/20 07:00 93 25 143/58 (86) 99 11/14/20 06:00 89 26 126/53 (77) 98 11/14/20 05:03 85 26 100 30 11/14/20 05:00 92 24 140/61 (87) 96 11/14/20 04:00 Bi-pap Bi-pap 11/14/20 04:00 86 11/14/20 04:00 98.5 91 29 127/75 (92) 99 11/14/20 04:00 30 11/14/20 03:00 91 31 147/62 (90) 99 11/14/20 02:19 84 30 100 30 11/14/20 02:00 86 32 143/53 (83) 100 11/14/20 01:08 89 32 100 30 11/14/20 01:00 91 22 134/68 (90) 100 11/14/20 00:00 30 11/14/20 00:00 79 11/14/20 00:00 98.6 87 24 122/63 (82) 100 11/14/20 00:00 Bi-pap Bi-pap 11/13/20 23:00 87 20 135/52 (79) 100 11/13/20 22:32 92 26 100 30 11/13/20 22:00 87 26 124/49 (74) 100 11/13/20 21:03 88 28 100 30 11/13/20 21:00 84 22 131/77 (95) 100 11/13/20 20:00 98.4 87 21 121/51 (74) 99 11/13/20 20:00 82 11/13/20 20:00 30 11/13/20 20:00 Bi-pap Bi-pap 11/13/20 19:08 88 23 100 30 11/13/20 19:07 100 Bi-Pap 30 11/13/20 19:00 86 21 119/68 (85) 100 11/13/20 18:00 83 24 143/51 (81) 100 11/13/20 17:20 92 28 98 30 11/13/20 17:00 80 8 122/58 (79) 100 11/13/20 16:00 Bi-pap Bi-pap 11/13/20 16:00 98.0 80 14 100/54 (69) 100 11/13/20 16:00 30 11/13/20 16:00 72 11/13/20 15:22 95 31 100 30 11/13/20 15:00 79 23 131/59 (83) 100 11/13/20 14:00 88 20 141/57 (85) 100 11/13/20 13:00 88 14 130/74 (92) 98 11/13/20 12:36 80 21 100 30 11/13/20 12:00 Bi-pap Bi-pap 11/13/20 12:00 83 11/13/20 12:00 30 11/13/20 12:00 98.2 85 14 134/67 (89) 100 11/13/20 11:11 84 13 100 30 11/13/20 11:00 85 18 137/75 (95) 100 11/13/20 10:00 87 18 122/56 (78) 99 11/13/20 09:40 81 16 100 30 Intake and Output 11/13/20 11/14/20 19:00 07:00 Intake Total 1410 ml 930 ml Output Total 520 ml 435 ml Balance 890 ml 495 ml Free Water 250 ml 150 ml IV Total 650 ml 300 ml Tube Feeding 480 ml 480 ml Other 30 ml Output Urine Total 420 ml 435 ml Stool Total 100 ml Current Medications Medications (Trade) Dose Ordered Sig/Yolanda Route PRN Reason Start Time Stop Time Status Last Admin Dose Admin Acetaminophen (Tylenol) 650 mg Q6H PRN GT Mild Pain (Pain Scale 1-3) 11/04/20 10:45 12/04/20 10:44 11/04/20 18:20 Acetaminophen (Tylenol) 650 mg Q6H PRN GT Temp >100.5 11/04/20 10:45 12/04/20 10:44 Apixaban (Eliquis) 2.5 mg BID GT 11/12/20 18:00 01/22/21 17:59 11/14/20 08:53 Chlorhexidine Gluconate (Eve-Hex 2%) 1 applic DAILY@2000 TOPIC 10/22/20 20:00 01/20/21 19:59 11/13/20 20:00 Dextrose 1,000 ml @ 100 mls/hr Q10H IV 11/14/20 09:30 12/14/20 09:29 UNV Digoxin (Lanoxin) 0.125 mg DAILY GT 10/30/20 09:00 01/28/21 08:59 11/14/20 08:53 Haloperidol Lactate 5 mg/ Dextrose 56 ml @ 224 mls/hr Q6H PRN IVPB Agitation 11/04/20 20:30 12/19/20 20:29 11/14/20 01:26 Levothyroxine Sodium (Synthroid) 50 mcg DAILY@0630 ORAL 10/19/20 06:30 11/18/20 06:29 11/14/20 06:42 Ondansetron HCl (Zofran) 4 mg Q6H PRN IVP Nausea & Vomiting 10/17/20 21:15 11/16/20 21:14 Pantoprazole (Protonix) 40 mg Q12HR IVP 11/02/20 21:00 11/25/20 20:59 11/14/20 08:52 Vitamin D (Vitamin D) 3,000 unit DAILY GT 11/12/20 09:00 12/12/20 08:59 11/14/20 08:53 Laboratory Tests 11/13/20 10:45: Arterial Blood pH 7.400, Arterial Blood Partial Pressure CO2 56.9*H, Arterial Blood Partial Pressure O2 88.4, Arterial Blood HCO3 34.5H, Arterial Blood Oxygen Saturation 95.9, Arterial Blood Base Excess 8.6H, Gallo Test Positive 11/14/20 00:23: POC Whole Blood Glucose [Pending] 11/14/20 05:50: White Blood Count 5.6, Red Blood Count 2.57L, Hemoglobin 7.6L, Hematocrit 24.9L, Mean Corpuscular Volume 97, Mean Corpuscular Hemoglobin 29.7, Mean Corpuscular Hemoglobin Concent 30.7L, Red Cell Distribution Width 18.7H, Platelet Count 156, Mean Platelet Volume 8.6, Neutrophils (%) (Auto) , Lymphocytes (%) (Auto) , Monocytes (%) (Auto) , Eosinophils (%) (Auto) , Basophils (%) (Auto) , Neutrophils % (Manual) [Pending], Lymphocytes % (Manual) [Pending], Platelet Estimate [Pending], Platelet Morphology [Pending], Sodium Level 152H, Potassium Level 4.1, Chloride Level 109H, Carbon Dioxide Level 37H, Anion Gap 6, Blood Urea Nitrogen 50H, Creatinine 1.2, Estimat Glomerular Filtration Rate 42.9, Glucose Level 115H, Uric Acid 7.4H, Calcium Level 8.3L, Phosphorus Level 3.2, Magnesium Level 2.0, Total Bilirubin 0.6, Aspartate Amino Transf (AST/SGOT) 36, Alanine Aminotransferase (ALT/SGPT) 31, Alkaline Phosphatase 83, C-Reactive Protein, Quantitative 4.9H, Pro-B-Type Natriuretic Peptide > 32475W, Total Protein 5.7L, Albumin 2.2L, Globulin 3.5, Albumin/Globulin Ratio 0.6L 11/14/20 06:22: POC Whole Blood Glucose [Pending] 11/14/20 07:40: Arterial Blood pH 7.425, Arterial Blood Partial Pressure CO2 58.1*H, Arterial Blood Partial Pressure O2 81.3, Arterial Blood HCO3 37.3H, Arterial Blood Oxygen Saturation 95.4, Arterial Blood Base Excess 11.5*H, Gallo Test Positive Height (Feet): 5 Height (Inches): 0.00 Weight (Pounds): 145 General Appearance: no apparent distress EENT: other - Remains on BiPAP Cardiovascular: tachycardia Respiratory/Chest: decreased breath sounds Abdomen: distended Fouladian,Dustin MD Nov 14, 2020 09:31
--- NOTE | 2020-11-14 10:35 | General Progress Note ---
Subjective ROS Limited/Unobtainable: Yes Allergies: Coded Allergies: No Known Allergies (Unverified , 10/17/20) Objective Last 24 Hour Vital Signs Date Time Temp Pulse Resp B/P (MAP) Pulse Ox O2 Delivery O2 Flow Rate FiO2 11/14/20 10:00 85 25 134/63 (86) 97 11/14/20 09:03 80 25 100 30 11/14/20 09:00 92 30 112/48 (69) 99 11/14/20 08:53 92 11/14/20 08:11 92 31 99 30 11/14/20 08:00 30 11/14/20 08:00 96 11/14/20 08:00 Bi-pap Bi-pap 11/14/20 08:00 98.6 95 20 130/58 (82) 99 11/14/20 07:26 98 Bi-Pap 30 11/14/20 07:26 84 28 98 30 11/14/20 07:00 93 25 143/58 (86) 99 11/14/20 06:00 89 26 126/53 (77) 98 11/14/20 05:03 85 26 100 30 11/14/20 05:00 92 24 140/61 (87) 96 11/14/20 04:00 Bi-pap Bi-pap 11/14/20 04:00 86 11/14/20 04:00 98.5 91 29 127/75 (92) 99 11/14/20 04:00 30 11/14/20 03:00 91 31 147/62 (90) 99 11/14/20 02:19 84 30 100 30 11/14/20 02:00 86 32 143/53 (83) 100 11/14/20 01:08 89 32 100 30 11/14/20 01:00 91 22 134/68 (90) 100 11/14/20 00:00 30 11/14/20 00:00 79 11/14/20 00:00 98.6 87 24 122/63 (82) 100 11/14/20 00:00 Bi-pap Bi-pap 11/13/20 23:00 87 20 135/52 (79) 100 11/13/20 22:32 92 26 100 30 11/13/20 22:00 87 26 124/49 (74) 100 11/13/20 21:03 88 28 100 30 11/13/20 21:00 84 22 131/77 (95) 100 11/13/20 20:00 98.4 87 21 121/51 (74) 99 11/13/20 20:00 82 11/13/20 20:00 30 11/13/20 20:00 Bi-pap Bi-pap 11/13/20 19:08 88 23 100 30 11/13/20 19:07 100 Bi-Pap 30 11/13/20 19:00 86 21 119/68 (85) 100 11/13/20 18:00 83 24 143/51 (81) 100 11/13/20 17:20 92 28 98 30 11/13/20 17:00 80 8 122/58 (79) 100 11/13/20 16:00 Bi-pap Bi-pap 11/13/20 16:00 98.0 80 14 100/54 (69) 100 11/13/20 16:00 30 11/13/20 16:00 72 11/13/20 15:22 95 31 100 30 11/13/20 15:00 79 23 131/59 (83) 100 11/13/20 14:00 88 20 141/57 (85) 100 11/13/20 13:00 88 14 130/74 (92) 98 11/13/20 12:36 80 21 100 30 11/13/20 12:00 Bi-pap Bi-pap 11/13/20 12:00 83 11/13/20 12:00 30 11/13/20 12:00 98.2 85 14 134/67 (89) 100 11/13/20 11:11 84 13 100 30 11/13/20 11:00 85 18 137/75 (95) 100 Intake and Output 11/13/20 11/14/20 19:00 07:00 Intake Total 1410 ml 930 ml Output Total 520 ml 435 ml Balance 890 ml 495 ml Free Water 250 ml 150 ml IV Total 650 ml 300 ml Tube Feeding 480 ml 480 ml Other 30 ml Output Urine Total 420 ml 435 ml Stool Total 100 ml Laboratory Tests 11/13/20 10:45: Arterial Blood pH 7.400, Arterial Blood Partial Pressure CO2 56.9*H, Arterial Blood Partial Pressure O2 88.4, Arterial Blood HCO3 34.5H, Arterial Blood Oxygen Saturation 95.9, Arterial Blood Base Excess 8.6H, Gallo Test Positive 11/14/20 00:23: POC Whole Blood Glucose [Pending] 11/14/20 05:50: White Blood Count 5.6, Red Blood Count 2.57L, Hemoglobin 7.6L, Hematocrit 24.9L, Mean Corpuscular Volume 97, Mean Corpuscular Hemoglobin 29.7, Mean Corpuscular Hemoglobin Concent 30.7L, Red Cell Distribution Width 18.7H, Platelet Count 156, Mean Platelet Volume 8.6, Neutrophils (%) (Auto) , Lymphocytes (%) (Auto) , Monocytes (%) (Auto) , Eosinophils (%) (Auto) , Basophils (%) (Auto) , Differential Total Cells Counted 100, Neutrophils % (Manual) 76H, Lymphocytes % (Manual) 18L, Monocytes % (Manual) 2, Eosinophils % (Manual) 0, Basophils % (Manual) 0, Band Neutrophils 4, Platelet Estimate Adequate, Platelet Morphology Normal, Hypochromasia 2+, Anisocytosis 2+, Sodium Level 152H, Potassium Level 4.1, Chloride Level 109H, Carbon Dioxide Level 37H, Anion Gap 6, Blood Urea Nitrogen 50H, Creatinine 1.2, Estimat Glomerular Filtration Rate 42.9, Glucose Level 115H, Uric Acid 7.4H, Calcium Level 8.3L, Phosphorus Level 3.2, Magnesium Level 2.0, Total Bilirubin 0.6, Aspartate Amino Transf (AST/SGOT) 36, Alanine Aminotransferase (ALT/SGPT) 31, Alkaline Phosphatase 83, C-Reactive Protein, Quantitative 4.9H, Pro-B-Type Natriuretic Peptide > 98817W, Total Protein 5.7L, Albumin 2.2L, Globulin 3.5, Albumin/Globulin Ratio 0.6L 11/14/20 06:22: POC Whole Blood Glucose [Pending] 11/14/20 07:40: Arterial Blood pH 7.425, Arterial Blood Partial Pressure CO2 58.1*H, Arterial Blood Partial Pressure O2 81.3, Arterial Blood HCO3 37.3H, Arterial Blood Oxygen Saturation 95.4, Arterial Blood Base Excess 11.5*H, Gallo Test Positive Height (Feet): 5 Height (Inches): 0.00 Weight (Pounds): 145 Assessment/Plan Problem List: (1) Anemia ICD Codes: D64.9 - Anemia, unspecified SNOMED: 334646394 (2) Acute kidney injury ICD Codes: N17.9 - Acute kidney failure, unspecified SNOMED: 17261661, 1306784 (3) Atrial fibrillation ICD Codes: I48.91 - Unspecified atrial fibrillation SNOMED: 57103511 (4) Elevated troponin ICD Codes: R77.8 - Other specified abnormalities of plasma proteins SNOMED: 069486615, 522868442, 863230987 (5) Malnutrition ICD Codes: E46 - Unspecified protein-calorie malnutrition SNOMED: 29837436 (6) Pneumonia due to COVID-19 virus ICD Codes: U07.1 - COVID-19; J12.82 - Pneumonia due to coronavirus disease 2019 SNOMED: 276453678371700231 (7) Hypothyroidism ICD Codes: E03.9 - Hypothyroidism, unspecified SNOMED: 23473665 Status: progressing, unchanged Assessment/Plan: pneumonia afebrile azotemia malnuutrition not improving resp insuff sepsis Neri Dumont MD Nov 14, 2020 10:34
--- NOTE | 2020-11-14 11:00 | NUR ---
NURSE NOTES: Dr Woods at bedside,updated re pt's status showed ABG results,ordered to titrate O2 from Bipap to 30% venti mask,Svetlana aware of Dr Woods'sorder.
--- NOTE | 2020-11-14 11:43 | NUR ---
Respiratory Note: Per Dr Woods Patient was placed on 6 L/pm 35% venturi mask. PT is comfortable and shows no s/s of acute respiratory distress or SOB. Sagar is aware. Per Dr Woods patient is to use BIPAP at night and PRN.
--- NOTE | 2020-11-14 11:47 | Pulmonology Progress Note ---
Subjective ROS Limited/Unobtainable: Yes Interval Events: Intubated 10/31/20; extubated 11/05/20; BiPAP Constitutional: Denies: fever HEENT: Repors: no symptoms Respiratory: Reports: no symptoms Cardiovascular: Reports: no symptoms Gastrointestinal/Abdominal: Reports: diarrhea Psychiatric: Reports: other Allergies: Coded Allergies: No Known Allergies (Unverified , 10/17/20) All Systems: reviewed and negative except above Objective Last 24 Hour Vital Signs Date Time Temp Pulse Resp B/P (MAP) Pulse Ox O2 Delivery O2 Flow Rate FiO2 11/14/20 11:25 86 23 98 30 11/14/20 11:00 86 24 133/51 (78) 99 11/14/20 10:00 85 25 134/63 (86) 97 11/14/20 09:03 80 25 100 30 11/14/20 09:00 92 30 112/48 (69) 99 11/14/20 08:53 92 11/14/20 08:11 92 31 99 30 11/14/20 08:00 30 11/14/20 08:00 96 11/14/20 08:00 Bi-pap Bi-pap 11/14/20 08:00 98.6 95 20 130/58 (82) 99 11/14/20 07:26 98 Bi-Pap 30 11/14/20 07:26 84 28 98 30 11/14/20 07:00 93 25 143/58 (86) 99 11/14/20 06:00 89 26 126/53 (77) 98 11/14/20 05:03 85 26 100 30 11/14/20 05:00 92 24 140/61 (87) 96 11/14/20 04:00 Bi-pap Bi-pap 11/14/20 04:00 86 11/14/20 04:00 98.5 91 29 127/75 (92) 99 11/14/20 04:00 30 11/14/20 03:00 91 31 147/62 (90) 99 11/14/20 02:19 84 30 100 30 11/14/20 02:00 86 32 143/53 (83) 100 11/14/20 01:08 89 32 100 30 11/14/20 01:00 91 22 134/68 (90) 100 11/14/20 00:00 30 3/20/21 00:00 79 11/14/20 00:00 98.6 87 24 122/63 (82) 100 11/14/20 00:00 Bi-pap Bi-pap 11/13/20 23:00 87 20 135/52 (79) 100 11/13/20 22:32 92 26 100 30 11/13/20 22:00 87 26 124/49 (74) 100 11/13/20 21:03 88 28 100 30 11/13/20 21:00 84 22 131/77 (95) 100 11/13/20 20:00 98.4 87 21 121/51 (74) 99 11/13/20 20:00 82 11/13/20 20:00 30 11/13/20 20:00 Bi-pap Bi-pap 11/13/20 19:08 88 23 100 30 11/13/20 19:07 100 Bi-Pap 30 11/13/20 19:00 86 21 119/68 (85) 100 11/13/20 18:00 83 24 143/51 (81) 100 11/13/20 17:20 92 28 98 30 11/13/20 17:00 80 8 122/58 (79) 100 11/13/20 16:00 Bi-pap Bi-pap 11/13/20 16:00 98.0 80 14 100/54 (69) 100 11/13/20 16:00 30 11/13/20 16:00 72 11/13/20 15:22 95 31 100 30 11/13/20 15:00 79 23 131/59 (83) 100 11/13/20 14:00 88 20 141/57 (85) 100 11/13/20 13:00 88 14 130/74 (92) 98 11/13/20 12:36 80 21 100 30 11/13/20 12:00 Bi-pap Bi-pap 11/13/20 12:00 83 11/13/20 12:00 30 11/13/20 12:00 98.2 85 14 134/67 (89) 100 Intake and Output 11/13/20 11/14/20 19:00 07:00 Intake Total 1410 ml 930 ml Output Total 520 ml 435 ml Balance 890 ml 495 ml Free Water 250 ml 150 ml IV Total 650 ml 300 ml Tube Feeding 480 ml 480 ml Other 30 ml Output Urine Total 420 ml 435 ml Stool Total 100 ml General Appearance: no acute distress HEENT: atraumatic Respiratory: lungs clear Cardiovascular: normal rate, regular rhythm Abdomen: soft, non tender, other - s/p PEG Laboratory Tests 11/14/20 00:23: POC Whole Blood Glucose [Pending] 11/14/20 05:50: White Blood Count 5.6, Red Blood Count 2.57L, Hemoglobin 7.6L, Hematocrit 24.9L, Mean Corpuscular Volume 97, Mean Corpuscular Hemoglobin 29.7, Mean Corpuscular Hemoglobin Concent 30.7L, Red Cell Distribution Width 18.7H, Platelet Count 156, Mean Platelet Volume 8.6, Neutrophils (%) (Auto) , Lymphocytes (%) (Auto) , Monocytes (%) (Auto) , Eosinophils (%) (Auto) , Basophils (%) (Auto) , Differential Total Cells Counted 100, Neutrophils % (Manual) 76H, Lymphocytes % (Manual) 18L, Monocytes % (Manual) 2, Eosinophils % (Manual) 0, Basophils % (Manual) 0, Band Neutrophils 4, Platelet Estimate Adequate, Platelet Morphology Normal, Hypochromasia 2+, Anisocytosis 2+, Sodium Level 152H, Potassium Level 4.1, Chloride Level 109H, Carbon Dioxide Level 37H, Anion Gap 6, Blood Urea Nitrogen 50H, Creatinine 1.2, Estimat Glomerular Filtration Rate 42.9, Glucose Level 115H, Uric Acid 7.4H, Calcium Level 8.3L, Phosphorus Level 3.2, Magnesium Level 2.0, Total Bilirubin 0.6, Aspartate Amino Transf (AST/SGOT) 36, Alanine Aminotransferase (ALT/SGPT) 31, Alkaline Phosphatase 83, C-Reactive Protein, Quantitative 4.9H, Pro-B-Type Natriuretic Peptide > 25343G, Total Protein 5.7L, Albumin 2.2L, Globulin 3.5, Albumin/Globulin Ratio 0.6L 11/14/20 06:22: POC Whole Blood Glucose [Pending] 11/14/20 07:40: Arterial Blood pH 7.425, Arterial Blood Partial Pressure CO2 58.1*H, Arterial Blood Partial Pressure O2 81.3, Arterial Blood HCO3 37.3H, Arterial Blood Oxygen Saturation 95.4, Arterial Blood Base Excess 11.5*H, Gallo Test Positive Current Medications Medications (Trade) Dose Ordered Sig/Yolanda Route PRN Reason Start Time Stop Time Status Last Admin Dose Admin Acetaminophen (Tylenol) 650 mg Q6H PRN GT Mild Pain (Pain Scale 1-3) 11/04/20 10:45 12/04/20 10:44 11/04/20 18:20 Acetaminophen (Tylenol) 650 mg Q6H PRN GT Temp >100.5 11/04/20 10:45 12/04/20 10:44 Apixaban (Eliquis) 2.5 mg BID GT 11/12/20 18:00 01/22/21 17:59 11/14/20 08:53 Chlorhexidine Gluconate (Eve-Hex 2%) 1 applic DAILY@2000 TOPIC 10/22/20 20:00 01/20/21 19:59 11/13/20 20:00 Dextrose 1,000 ml @ 100 mls/hr Q10H IV 11/14/20 09:30 11/14/20 19:29 11/14/20 11:42 Digoxin (Lanoxin) 0.125 mg DAILY GT 10/30/20 09:00 01/28/21 08:59 11/14/20 08:53 Haloperidol Lactate 5 mg/ Dextrose 56 ml @ 224 mls/hr Q6H PRN IVPB Agitation 11/04/20 20:30 12/19/20 20:29 11/14/20 01:26 Levothyroxine Sodium (Synthroid) 50 mcg DAILY@0630 ORAL 10/19/20 06:30 11/18/20 06:29 11/14/20 06:42 Ondansetron HCl (Zofran) 4 mg Q6H PRN IVP Nausea & Vomiting 10/17/20 21:15 11/16/20 21:14 Pantoprazole (Protonix) 40 mg Q12HR IVP 11/02/20 21:00 11/25/20 20:59 11/14/20 08:52 Vitamin D (Vitamin D) 3,000 unit DAILY GT 11/12/20 09:00 12/12/20 08:59 11/14/20 08:53 Assessment/Plan Assessment/Plan 1. CHF - CXR (11/07) pulmonary vascular congestion and small pleural effusions. - s/p thoracentesis (11/11) 700mL out 2. CAD/previous non-STEMI. 3. [facility] resident. 4. Bradycardia. 5. Atrial fibrillation. -Started on Eliquis 6. Renal insufficiency. -Nephro following 7. Troponin leak. - Cardio following 8. COVID-19 pneumonia, without fever or leukocytosis - s/p intubated; now extubated 11/06/20 - Still on BiPAP - Sp Cx (11/03) Gram negative bacillus -> now on meropenem per ID - added Levalbuterol 9. Respiratory failure, s/p vent - now extubated 10. 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 UTI, cheryl 12. Dysphagia -s/p PEG (10/23) 13. Hypotension; improved - s/p NS bolus - pressors as needed 14. L pleural effusion; improved - completed Diamox 250 mg q6hr x8 doses -s/p thoracentesis (11/11) 700 mL Noted [facility] eval; she can be discharged to [facility] on BiPAP 16/ WIll attempt off biPAP during the day and use BipPA q pm Carlos Woods MD Nov 14, 2020 11:47
--- NOTE | 2020-11-14 13:25 | NUR ---
NURSE NOTES: Pt stable,tolerating Venti mask O2 sat 100%
--- NOTE | 2020-11-14 14:32 | Surgery Progress Note ---
Surgery Progress Note Subjective Procedure Performed left subclavian central venous catheter insertion Additional Comments on face mask off bipap labs noted exam unchanged limited responsive Objective Last 24 Hour Vital Signs Date Time Temp Pulse Resp B/P (MAP) Pulse Ox O2 Delivery O2 Flow Rate FiO2 11/14/20 13:00 90 32 135/59 (84) 97 11/14/20 13:00 97 34 135/59 (84) 97 11/14/20 12:00 Bi-pap Bi-pap 11/14/20 12:00 98.6 88 32 116/68 (84) 95 11/14/20 12:00 87 11/14/20 12:00 6.0 35 11/14/20 11:45 35.0 11/14/20 11:43 88 25 94 6.0 35 11/14/20 11:25 86 23 98 30 11/14/20 11:00 86 24 133/51 (78) 99 11/14/20 10:00 85 25 134/63 (86) 97 11/14/20 09:03 80 25 100 30 11/14/20 09:00 92 30 112/48 (69) 99 11/14/20 08:53 92 11/14/20 08:11 92 31 99 30 11/14/20 08:00 30 11/14/20 08:00 96 11/14/20 08:00 Bi-pap Bi-pap 11/14/20 08:00 98.6 95 20 130/58 (82) 99 11/14/20 07:26 98 Bi-Pap 30 11/14/20 07:26 84 28 98 30 11/14/20 07:00 93 25 143/58 (86) 99 11/14/20 06:00 89 26 126/53 (77) 98 11/14/20 05:03 85 26 100 30 11/14/20 05:00 92 24 140/61 (87) 96 11/14/20 04:00 Bi-pap Bi-pap 11/14/20 04:00 86 11/14/20 04:00 98.5 91 29 127/75 (92) 99 11/14/20 04:00 30 11/14/20 03:00 91 31 147/62 (90) 99 11/14/20 02:19 84 30 100 30 11/14/20 02:00 86 32 143/53 (83) 100 11/14/20 01:08 89 32 100 30 11/14/20 01:00 91 22 134/68 (90) 100 11/14/20 00:00 30 11/14/20 00:00 79 11/14/20 00:00 98.6 87 24 122/63 (82) 100 11/14/20 00:00 Bi-pap Bi-pap 11/13/20 23:00 87 20 135/52 (79) 100 11/13/20 22:32 92 26 100 30 11/13/20 22:00 87 26 124/49 (74) 100 11/13/20 21:03 88 28 100 30 11/13/20 21:00 84 22 131/77 (95) 100 11/13/20 20:00 98.4 87 21 121/51 (74) 99 11/13/20 20:00 82 11/13/20 20:00 30 11/13/20 20:00 Bi-pap Bi-pap 11/13/20 19:08 88 23 100 30 11/13/20 19:07 100 Bi-Pap 30 11/13/20 19:00 86 21 119/68 (85) 100 11/13/20 18:00 83 24 143/51 (81) 100 11/13/20 17:20 92 28 98 30 11/13/20 17:00 80 8 122/58 (79) 100 11/13/20 16:00 Bi-pap Bi-pap 11/13/20 16:00 98.0 80 14 100/54 (69) 100 11/13/20 16:00 30 11/13/20 16:00 72 11/13/20 15:22 95 31 100 30 11/13/20 15:00 79 23 131/59 (83) 100 I&O Intake and Output 11/13/20 11/14/20 19:00 07:00 Intake Total 1410 ml 930 ml Output Total 520 ml 435 ml Balance 890 ml 495 ml Free Water 250 ml 150 ml IV Total 650 ml 300 ml Tube Feeding 480 ml 480 ml Other 30 ml Output Urine Total 420 ml 435 ml Stool Total 100 ml Cardiovascular: RSR Respiratory: decreased breath sounds Abdomen: soft, flat, non-tender, present bowel sounds, non-distended Extremities: edema, no tenderness, no cyanosis Laboratory Tests Test 11/14/20 00:23 11/14/20 05:50 11/14/20 06:22 11/14/20 07:40 POC Whole Blood Glucose Pending Pending White Blood Count 5.6 K/UL (4.8-10.8) Red Blood Count 2.57 M/UL (4.20-5.40) L Hemoglobin 7.6 G/DL (12.0-16.0) L Hematocrit 24.9 % (37.0-47.0) L Mean Corpuscular Volume 97 FL (80-99) Mean Corpuscular Hemoglobin 29.7 PG (27.0-31.0) Mean Corpuscular Hemoglobin Concent 30.7 G/DL (32.0-36.0) L Red Cell Distribution Width 18.7 % (11.6-14.8) H Platelet Count 156 K/UL (150-450) Mean Platelet Volume 8.6 FL (6.5-10.1) Neutrophils (%) (Auto) % (45.0-75.0) Lymphocytes (%) (Auto) % (20.0-45.0) Monocytes (%) (Auto) % (1.0-10.0) Eosinophils (%) (Auto) % (0.0-3.0) Basophils (%) (Auto) % (0.0-2.0) Differential Total Cells Counted 100 Neutrophils % (Manual) 76 % (45-75) H Lymphocytes % (Manual) 18 % (20-45) L Monocytes % (Manual) 2 % (1-10) Eosinophils % (Manual) 0 % (0-3) Basophils % (Manual) 0 % (0-2) Band Neutrophils 4 % (0-8) Platelet Estimate Adequate Platelet Morphology Normal Hypochromasia 2+ Anisocytosis 2+ Sodium Level 152 MMOL/L (136-145) H Potassium Level 4.1 MMOL/L (3.5-5.1) Chloride Level 109 MMOL/L (98-107) H Carbon Dioxide Level 37 MMOL/L (21-32) H Anion Gap 6 mmol/L (5-15) Blood Urea Nitrogen 50 mg/dL (7-18) H Creatinine 1.2 MG/DL (0.55-1.30) Estimat Glomerular Filtration Rate 42.9 mL/min (>60) Glucose Level 115 MG/DL (74-106) H Uric Acid 7.4 MG/DL (2.6-7.2) H Calcium Level 8.3 MG/DL (8.5-10.1) L Phosphorus Level 3.2 MG/DL (2.5-4.9) Magnesium Level 2.0 MG/DL (1.8-2.4) Total Bilirubin 0.6 MG/DL (0.2-1.0) Aspartate Amino Transf (AST/SGOT) 36 U/L (15-37) Alanine Aminotransferase (ALT/SGPT) 31 U/L (12-78) Alkaline Phosphatase 83 U/L (46-116) C-Reactive Protein, Quantitative 4.9 mg/dL (0.00-0.90) H Pro-B-Type Natriuretic Peptide > 48140 pg/mL (0-125) H Total Protein 5.7 G/DL (6.4-8.2) L Albumin 2.2 G/DL (3.4-5.0) L Globulin 3.5 g/dL Albumin/Globulin Ratio 0.6 (1.0-2.7) L Arterial Blood pH 7.425 (7.350-7.450) Arterial Blood Partial Pressure CO2 58.1 mmHg (35.0-45.0) *H Arterial Blood Partial Pressure O2 81.3 mmHg (75.0-100.0) Arterial Blood HCO3 37.3 mmol/L (22.0-26.0) H Arterial Blood Oxygen Saturation 95.4 % (95-100) Arterial Blood Base Excess 11.5 (-2-2) *H Gallo Test Positive Plan Problems: (1) Anemia (2) Acute kidney injury (3) Atrial fibrillation (4) Hyperkalemia (5) Elevated troponin (6) Decubitus skin ulcer Assessment & Plan: Pt presented on admission with Multiple Medical Comorbidities including Covid-19 and Pressure Injuries. Primary Nurse reported Pt has been declining food and medications. Sacral DTPI that is evolving noted to Sacrum(L)6cm x (W)12.5cm.. Scattered Pu rpuric areas that are indurated noted to R and L cheek. Small wound that is 100% slough (L)0.6cm x (W)0.7cm noted at sacrococcygeal area within base of DTPI. MASD noted to Perineum and skin folds of Medial/posterior aspects of Both upper thighs. Affected areas are erythematous and macerated with scattered satellite lesions. DTPI L Heel (L)3cm x (W)4cm, Base of heel is maroon and fluctuant with small purpuric area (L)0.4cm x (W)0.9cm within base of DTPI. l Foot including toes are mottled and cool to touch. L Heel is boggy. L Heel including toes are Mottled and cool to touch. Tx.Plan: Apply Moisture Barrier Paste to Sacrum. Cover with Optifoam drsg.Change every 3 days and prn. Apply Moisture Barrier Paste to abdominal folds, Perineum and skin folds of both upper thighs. Apply Cavilon Skin Barrier to both heels. Cover each Heel with Optifoam drsg. Change every 7 days and prn. Reposition at least every 2hours or as tolerated. Off-load heels with pillow. (7) Malnutrition Assessment & Plan: She was able to self feed on right hand and took a bite of popsicle and tolerated without s.s of aspiration. After 1st bite, then she refused 2nd bite. After this was done, I offered her a cup of cranberry juice, she took few sips and tolerated without s.s of aspiration. I continued to offer but she refused further PO. A: 1. Functional swallow 2. Failure to thrive 3. abnormal electrolytes in setting of heart failure, NSTEMI, elevated BNP, etc.. P/Rec. 1. Pureed and thin liquid 2.3. Goal of care discussion DAILY ESTIMATED NEEDS: Needs based on Cardiac, pulmonary/ 51kg abw 25-30 kcals/kg 8273-0862 total kcals 1-1.5 g protein/kg 51-76 g total protein 20-25 mL/kg 8252-3098 total fluid mLs NUTRITION DIAGNOSIS: Swallowing difficulty R/T dysphagia, decreased cognitive fxn as evidenced by MAT[employer] ASSOCIATE recommends pureed moist texture diet at this time. CURRENT DIET:NPO PO DIET RECOMMENDATIONS: Liberalized REGULAR w/ poor PO (texture per MATERIAL CONTROL ASSOCIATE) ADDITIONAL RECOMMENDATIONS: * Calibrated bedscale wt * Monitor PO intake: refusing meds and foods at this time -> rec nonoral feeds w/ continued refusal of PO if part of POC * LOW NA diet w/ PO intake consistently >50% * 4 oz Ensure TID w/ meals (4oz at this time due to poor acceptance, may increase to 8oz w/ good acceptance) (8) Pneumonia due to COVID-19 virus Assessment & Plan: here appears to be increased left pleural fluid and generalized hazy parenchymal opacity, left greater than right. Heart remains enlarged Impression: Increased left pleural effusion Suspect increasing bilateral left greater than right pulmonary edema versus infiltrates worsening intubated on vent weaned extubated (9) Hypothyroidism Jim Orosco Nov 14, 2020 14:32
--- NOTE | 2020-11-14 14:37 | NUR ---
CASE MANAGEMENT:REVIEW 11/14/20 SI: COVID PNEUMONIA 98.6 87 32 116/68 95% ON BIPAP 6/35 H/H-7.6/24.9 NA+152 CO2+37 BUN+50 BNP>04841 PCO2+58.1 HCO3+37.3 IS: IVF@100/HR ``IV PROTONIX Q12 ELIQUIS GT BID DIGOXIN GT QD : ICU STATUS DCP: FROM [facility]
--- NOTE | 2020-11-14 14:50 | Cardiac Electrophysiology PN ---
Assessment/Plan Assessment/Plan 1. NSTEMI with elevated troponin of more than 0.2 and hx of prior [place] The level has come down to 0.19, but the levels are flat and likely due to renal failure as the creatinine is 2.1. On aspirin and off Lopressor as hypotensive 2. Atrial fibrillation with rapid ventricular response. Off Lopressor for low BP On Dig 0.125 PEG daily and Eliquis 2.5 bid. Dig level 1.7 3. Respiratory failure , Extubated 11/06/20. On Diamox and FaseMask 4. S/P Septic shock, off Levophed 5. Renal insufficiency. BUN 52/ Cr 1.3. On Diamox 6. Status post COVID pneumonia, was tested positive more than two weeks ago. Now is Covid negative 7. Dysphagia, S/P PEG 10/23/20 8. Full code. 9. Anemia, getting 2 units of PRBC DW Dr. Gómez Subjective Subjective In ICU off pressors. Covid negative 10/25 and is off isolation In atrial fib Dig level 1.7 Extubated 11/06/20. Back on BIPAP and again on Facemask now Objective Last 24 Hour Vital Signs Date Time Temp Pulse Resp B/P (MAP) Pulse Ox O2 Delivery O2 Flow Rate FiO2 11/14/20 14:00 100 34 137/60 (85) 95 11/14/20 13:00 90 32 135/59 (84) 97 11/14/20 13:00 97 34 135/59 (84) 97 11/14/20 12:00 Bi-pap Bi-pap 11/14/20 12:00 98.6 88 32 116/68 (84) 95 11/14/20 12:00 87 11/14/20 12:00 6.0 35 11/14/20 11:45 35.0 11/14/20 11:43 88 25 94 6.0 35 11/14/20 11:25 86 23 98 30 11/14/20 11:00 86 24 133/51 (78) 99 11/14/20 10:00 85 25 134/63 (86) 97 11/14/20 09:03 80 25 100 30 11/14/20 09:00 92 30 112/48 (69) 99 11/14/20 08:53 92 11/14/20 08:11 92 31 99 30 11/14/20 08:00 30 11/14/20 08:00 96 11/14/20 08:00 Bi-pap Bi-pap 11/14/20 08:00 98.6 95 20 130/58 (82) 99 11/14/20 07:26 98 Bi-Pap 30 11/14/20 07:26 84 28 98 30 11/14/20 07:00 93 25 143/58 (86) 99 11/14/20 06:00 89 26 126/53 (77) 98 11/14/20 05:03 85 26 100 30 11/14/20 05:00 92 24 140/61 (87) 96 11/14/20 04:00 Bi-pap Bi-pap 11/14/20 04:00 86 11/14/20 04:00 98.5 91 29 127/75 (92) 99 11/14/20 04:00 30 11/14/20 03:00 91 31 147/62 (90) 99 11/14/20 02:19 84 30 100 30 11/14/20 02:00 86 32 143/53 (83) 100 11/14/20 01:08 89 32 100 30 11/14/20 01:00 91 22 134/68 (90) 100 11/14/20 00:00 30 11/14/20 00:00 79 11/14/20 00:00 98.6 87 24 122/63 (82) 100 11/14/20 00:00 Bi-pap Bi-pap 11/13/20 23:00 87 20 135/52 (79) 100 11/13/20 22:32 92 26 100 30 11/13/20 22:00 87 26 124/49 (74) 100 11/13/20 21:03 88 28 100 30 11/13/20 21:00 84 22 131/77 (95) 100 11/13/20 20:00 98.4 87 21 121/51 (74) 99 11/13/20 20:00 82 11/13/20 20:00 30 11/13/20 20:00 Bi-pap Bi-pap 11/13/20 19:08 88 23 100 30 11/13/20 19:07 100 Bi-Pap 30 11/13/20 19:00 86 21 119/68 (85) 100 11/13/20 18:00 83 24 143/51 (81) 100 3/19/21 17:20 92 28 98 30 11/13/20 17:00 80 8 122/58 (79) 100 11/13/20 16:00 Bi-pap Bi-pap 11/13/20 16:00 98.0 80 14 100/54 (69) 100 11/13/20 16:00 30 11/13/20 16:00 72 11/13/20 15:22 95 31 100 30 11/13/20 15:00 79 23 131/59 (83) 100 Intake and Output 11/13/20 11/14/20 19:00 07:00 Intake Total 1410 ml 930 ml Output Total 520 ml 435 ml Balance 890 ml 495 ml Free Water 250 ml 150 ml IV Total 650 ml 300 ml Tube Feeding 480 ml 480 ml Other 30 ml Output Urine Total 420 ml 435 ml Stool Total 100 ml Laboratory Tests Test 11/14/20 00:23 11/14/20 05:50 11/14/20 06:22 11/14/20 07:40 POC Whole Blood Glucose Pending Pending White Blood Count 5.6 K/UL (4.8-10.8) Red Blood Count 2.57 M/UL (4.20-5.40) L Hemoglobin 7.6 G/DL (12.0-16.0) L Hematocrit 24.9 % (37.0-47.0) L Mean Corpuscular Volume 97 FL (80-99) Mean Corpuscular Hemoglobin 29.7 PG (27.0-31.0) Mean Corpuscular Hemoglobin Concent 30.7 G/DL (32.0-36.0) L Red Cell Distribution Width 18.7 % (11.6-14.8) H Platelet Count 156 K/UL (150-450) Mean Platelet Volume 8.6 FL (6.5-10.1) Neutrophils (%) (Auto) % (45.0-75.0) Lymphocytes (%) (Auto) % (20.0-45.0) Monocytes (%) (Auto) % (1.0-10.0) Eosinophils (%) (Auto) % (0.0-3.0) Basophils (%) (Auto) % (0.0-2.0) Differential Total Cells Counted 100 Neutrophils % (Manual) 76 % (45-75) H Lymphocytes % (Manual) 18 % (20-45) L Monocytes % (Manual) 2 % (1-10) Eosinophils % (Manual) 0 % (0-3) Basophils % (Manual) 0 % (0-2) Band Neutrophils 4 % (0-8) Platelet Estimate Adequate Platelet Morphology Normal Hypochromasia 2+ Anisocytosis 2+ Sodium Level 152 MMOL/L (136-145) H Potassium Level 4.1 MMOL/L (3.5-5.1) Chloride Level 109 MMOL/L (98-107) H Carbon Dioxide Level 37 MMOL/L (21-32) H Anion Gap 6 mmol/L (5-15) Blood Urea Nitrogen 50 mg/dL (7-18) H Creatinine 1.2 MG/DL (0.55-1.30) Estimat Glomerular Filtration Rate 42.9 mL/min (>60) Glucose Level 115 MG/DL (74-106) H Uric Acid 7.4 MG/DL (2.6-7.2) H Calcium Level 8.3 MG/DL (8.5-10.1) L Phosphorus Level 3.2 MG/DL (2.5-4.9) Magnesium Level 2.0 MG/DL (1.8-2.4) Total Bilirubin 0.6 MG/DL (0.2-1.0) Aspartate Amino Transf (AST/SGOT) 36 U/L (15-37) Alanine Aminotransferase (ALT/SGPT) 31 U/L (12-78) Alkaline Phosphatase 83 U/L (46-116) C-Reactive Protein, Quantitative 4.9 mg/dL (0.00-0.90) H Pro-B-Type Natriuretic Peptide > 54656 pg/mL (0-125) H Total Protein 5.7 G/DL (6.4-8.2) L Albumin 2.2 G/DL (3.4-5.0) L Globulin 3.5 g/dL Albumin/Globulin Ratio 0.6 (1.0-2.7) L Arterial Blood pH 7.425 (7.350-7.450) Arterial Blood Partial Pressure CO2 58.1 mmHg (35.0-45.0) *H Arterial Blood Partial Pressure O2 81.3 mmHg (75.0-100.0) Arterial Blood HCO3 37.3 mmol/L (22.0-26.0) H Arterial Blood Oxygen Saturation 95.4 % (95-100) Arterial Blood Base Excess 11.5 (-2-2) *H Gallo Test Positive Objective HEAD AND NECK: No JVD. LUNGS: Decreased breath sounds. CARDIOVASCULAR: Irregular S1 and S2 with no gallop. ABDOMEN: Soft.S/P PEG EXTREMITIES: No pitting edema. Terry Reyes MD Nov 14, 2020 14:49
--- NOTE | 2020-11-14 16:00 | NUR ---
NURSE NOTES: called lab,re 2 units of PRBC ordered by Dr Gómez,but order not processed,mistake in ordering,Dr Gómez ordered blood under Other Nsg Order.Blood drawn from [facility] and sent to lab for type and cross.
--- NOTE | 2020-11-14 17:44 | NUR ---
Respiratory Note: PT remains stable and comfortable on 6 Lpm / 35% Venturi mask. No s/s of respiratory distress noted at this time. Will continue to closely monitor.
--- NOTE | 2020-11-14 18:00 | NUR ---
NURSE NOTES: Bed bath given,pt's Green cath leaking,pt's pad soaked with urine,kept dry and clean,pt pulled up and repositioned.
--- NOTE | 2020-11-14 19:28 | NUR ---
NURSE HAND-OFF REPORT: Latest Vital Signs: Temperature 98.0 , Pulse 97 , B/P 138 /54 , Respiratory Rate 36 , O2 SAT 94 , Simple Mask, O2 Flow Rate 6.0 . Vital Sign Comment: stable EKG Rhythm: Atrial Fibrillation Rhythm change?: N MD Notified?: - MD Response: Latest Elizabeth Fall Score: 50 Fall Risk: High Risk Safety Measures: Call light Within Reach, Bed Alarm Zone 1, Side Rails Side Rails x3, Bed position Low and Locked. Fall Precautions: Yellow Socks Patient Fall Education Report given to Shannan Rodriguez RN..
--- NOTE | 2020-11-14 19:30 | NUR ---
NURSE NOTES: Report received from SERGIO Zimmerman. Pt asleep upon assessment. Opens eye to physical stimuli; non responsive to verbal stimuli. PERRLA. Saturating 93% on Venti Mask 30% fio2. BP WNL. Axil temp 99.0. G-tube running Glucerna 1.5 @ 40mL with 20mL residual noted. Green and rectal tube observed and draining to gravity. Mittens observed on pt for attempting to remove venti mask during previous shift. Side rails up x3. Bed kept in lowest and locked position. Will monitor.
[2020-11-14] MEDS: Dyna-Hex 2% Top Sol 2oz TOPIC SCH (20:29)
--- NOTE | 2020-11-14 20:45 | NUR ---
NURSE NOTES: Switch pt to BiPAP PRN HS with RT, Kong, at bedside. Saturating 100% on settings of 16/5 40% fiO2. No distress noted. Blood bank called for blood per Dr. Gómez orders of x2PRBC. Will begin infusion process.
[2020-11-15] VITALS (24 sets, daily range): BP systolic 92–156; BP diastolic 41–81
--- NOTE | 2020-11-15 00:45 | NUR ---
NURSE NOTES: 2nd bag of PRBC transfusing. No adverse side effects after first transfusion. 112 mg/dl BSG. Pt in stable condition. Repositioned as needed.
--- NOTE | 2020-11-15 06:03 | NUR ---
NURSE NOTES: Pt produced <300 mL urine during the night. BSG also WNL. Will leave message for MD if he wants to continue with Acu-checks Q6. AM labs drawn and sent to lab. Bed bath / oral care provided. Will monitor.
--- NOTE | 2020-11-15 06:36 | Hematology/Onc Progress Note ---
Assessment/Plan Assessment/Plan Assessment and recs # Pancytopenia likely due to consumption, critical state, r/o infection, remains in the icu --> anemia panel has been ordered-->reviewed --> hgb 8.1->9.3->9.7-->9.5-->10. 5-->10.2-->9.1->8.6-->7.8-->8.1-->9.2-->8.7-->9.1-->6.7 --> wbc 2.7 --> no hemolysis is noted --> transfuse on prn basis --> 1 unit prbc 10/30 # Thrombocytopenia likely due to reactive process --> plt 138-->149-->176-->162-->112 --> imaging prn --> smear has been reviewed --> viral w/u neg # Hypercoag disorder with Atrial fibrillation --> consider anticoag as per cards --> if bleeding, consider hold anticoag # Elevated trop --> per cards # Hyperkalemia --> per renal # Acute kidney injury --> per renal # Resp failure on bipap # Recently COVID-19 positive # Dvt ppx scds --> lovenox sq-->apixaban Appreciate consultation and rosio eugene Subjective Allergies: Coded Allergies: No Known Allergies (Unverified , 10/17/20) All Systems: reviewed and negative except above Subjective 10/19 cbc is pending, did get blood transfusion last night, pending results 10/20 meds noted, no bleeding, labs reviewed, rosio rn, no new changes 10/21 on 4l nc, has been refusing labs, meds noted, no bleeding 10/22 nc, refusing meds labs reviewed, rosio rn 10/23 is potentially for egd this am, no bleeding, cbc is noted 10/25 meds noted, no bleeidng, is on nc, no night sweats, bp bolus pending 10/26 bed bath done, meds noted, no bleeding, cbc reviewed from am 10/27 lethargic, on bipap, levophed, meds reviewed 10/28 icu, lethargic, remains on bipap, pressors 10/29 icu, lethargic, meds noted, on bipap, labs noted 10/30 icu, bipap, to get 1 unit prbc, meds reviewed, labs noted 10/31 icu, on vent, no bipap 11/01: remains in icu, no bleeding reported 11/02 icu, lethargic, on vent, with gt feeds on hold, labs noted 11/03 icu, intubated on vent, lethargic, labs reviewed, meds noted 11/04 icu, remains intuabted is on vent, lethargic, labs reviewed 11/05 icu, nv, on vent, lethargic, labs noted 11/06 icu, extubated, is on simple mask, meds noted 11/08 in icu, on simple mask and bipap prn, labs reviewed 11/09 icu, labs reviewed, on face mask, meds noted 11/10 icu, asleep, bipap, with rothman, meds noted, dw rn 11/11 icu, meds noted, remains bipap, labs reviewed 11/12 icu, labs noted, meds reviewed, no bleeding 11/13 icu care, labs noted, with lower plts, meds reviewed, still on apixaban 2.5 11/15 meds reviewed, icu, labs are pending, most recent hgb 6.7 Objective Objective Current Medications Medications (Trade) Dose Ordered Sig/Yolanda Route PRN Reason Start Time Stop Time Status Last Admin Dose Admin Acetaminophen (Tylenol) 650 mg Q6H PRN GT Mild Pain (Pain Scale 1-3) 11/04/20 10:45 12/04/20 10:44 11/04/20 18:20 Acetaminophen (Tylenol) 650 mg Q6H PRN GT Temp >100.5 11/04/20 10:45 12/04/20 10:44 Apixaban (Eliquis) 2.5 mg BID GT 11/12/20 18:00 01/22/21 17:59 11/14/20 17:49 Chlorhexidine Gluconate (Eve-Hex 2%) 1 applic DAILY@1999 TOPIC 10/22/20 20:00 01/20/21 19:59 11/14/20 20:29 Digoxin (Lanoxin) 0.125 mg DAILY GT 10/30/20 09:00 01/28/21 08:59 11/14/20 08:53 Haloperidol Lactate 5 mg/ Dextrose 56 ml @ 224 mls/hr Q6H PRN IVPB Agitation 11/04/20 20:30 12/19/20 20:29 11/14/20 01:26 Levothyroxine Sodium (Synthroid) 50 mcg DAILY@0630 ORAL 10/19/20 06:30 11/18/20 06:29 11/15/20 06:03 Ondansetron HCl (Zofran) 4 mg Q6H PRN IVP Nausea & Vomiting 10/17/20 21:15 11/16/20 21:14 Pantoprazole (Protonix) 40 mg Q12HR IVP 11/02/20 21:00 11/25/20 20:59 11/14/20 20:29 Vitamin D (Vitamin D) 3,000 unit DAILY GT 11/12/20 09:00 12/12/20 08:59 11/14/20 08:53 Last 24 Hour Vital Signs Date Time Temp Pulse Resp B/P (MAP) Pulse Ox O2 Delivery O2 Flow Rate FiO2 11/15/20 06:00 88 27 131/66 (87) 99 11/15/20 05:18 90 25 100 40 11/15/20 05:00 86 26 115/53 (73) 98 11/15/20 04:00 74 11/15/20 04:00 Bi-pap Bi-pap 11/15/20 04:00 40 11/15/20 04:00 86 25 149/59 (89) 98 11/15/20 03:33 88 30 100 40 11/15/20 03:00 86 23 135/81 (99) 99 11/15/20 02:00 88 21 156/61 (92) 98 11/15/20 01:31 86 28 100 40 11/15/20 01:00 87 25 113/46 (68) 100 11/15/20 00:00 Bi-pap Bi-pap 11/15/20 00:00 89 11/15/20 00:00 99.0 86 24 135/49 (77) 100 11/14/20 23:30 85 29 100 40 11/14/20 23:00 89 29 113/50 (71) 99 11/14/20 22:00 98.5 90 24 124/44 (70) 100 11/14/20 21:30 87 26 98 40 11/14/20 21:00 91 24 120/41 (67) 100 11/14/20 20:00 40 11/14/20 20:00 Bi-pap Bi-pap 11/14/20 20:00 92 11/14/20 20:00 94 29 136/46 (76) 99 21 19:30 98 Bi-Pap 40 11/14/20 19:30 93 33 98 40 11/14/20 19:00 99.1 99 34 141/53 (82) 93 11/14/20 18:00 97 36 138/54 (82) 94 11/14/20 17:00 92 38 154/66 (95) 92 11/14/20 16:00 Bi-pap Bi-pap 11/14/20 16:00 98.0 95 29 147/56 (86) 97 11/14/20 16:00 6.0 35 11/14/20 16:00 94 11/14/20 15:00 95 30 152/69 (96) 96 11/14/20 14:49 99 22 94 6.0 35 11/14/20 14:00 100 34 137/60 (85) 95 11/14/20 13:00 90 32 135/59 (84) 97 11/14/20 13:00 97 34 135/59 (84) 97 11/14/20 12:00 Bi-pap Bi-pap 11/14/20 12:00 98.6 88 32 116/68 (84) 95 11/14/20 12:00 87 11/14/20 12:00 6.0 35 11/14/20 11:45 35.0 11/14/20 11:43 94 Venturi Mask 6.0 30 11/14/20 11:43 88 25 94 6.0 35 11/14/20 11:25 86 23 98 30 11/14/20 11:00 86 24 133/51 (78) 99 11/14/20 10:00 85 25 134/63 (86) 97 11/14/20 09:03 80 25 100 30 11/14/20 09:00 92 30 112/48 (69) 99 11/14/20 08:53 92 11/14/20 08:11 92 31 99 30 11/14/20 08:00 30 11/14/20 08:00 96 11/14/20 08:00 Bi-pap Bi-pap 11/14/20 08:00 98.6 95 20 130/58 (82) 99 11/14/20 07:26 98 Bi-Pap 30 11/14/20 07:26 84 28 98 30 11/14/20 07:00 93 25 143/58 (86) 99 11/14/20 06:00 89 26 126/53 (77) 98 11/14/20 05:03 85 26 100 30 11/14/20 05:00 92 24 140/61 (87) 96 11/14/20 04:00 Bi-pap Bi-pap 11/14/20 04:00 86 11/14/20 04:00 98.5 91 29 127/75 (92) 99 11/14/20 04:00 30 11/14/20 03:00 91 31 147/62 (90) 99 11/14/20 02:19 84 30 100 30 11/14/20 02:00 86 32 143/53 (83) 100 11/14/20 01:08 89 32 100 30 11/14/20 01:00 91 22 134/68 (90) 100 11/14/20 00:00 30 11/14/20 00:00 79 11/14/20 00:00 98.6 87 24 122/63 (82) 100 11/14/20 00:00 Bi-pap Bi-pap 11/13/20 23:00 87 20 135/52 (79) 100 11/13/20 22:32 92 26 100 30 11/13/20 22:00 87 26 124/49 (74) 100 11/13/20 21:03 88 28 100 30 11/13/20 21:00 84 22 131/77 (95) 100 11/13/20 20:00 98.4 87 21 121/51 (74) 99 11/13/20 20:00 82 11/13/20 20:00 30 11/13/20 20:00 Bi-pap Bi-pap 11/13/20 19:08 88 23 100 30 11/13/20 19:07 100 Bi-Pap 30 11/13/20 19:00 86 21 119/68 (85) 100 11/13/20 18:00 83 24 143/51 (81) 100 11/13/20 17:20 92 28 98 30 11/13/20 17:00 80 8 122/58 (79) 100 3/19/21 16:00 Bi-pap Bi-pap 11/13/20 16:00 98.0 80 14 100/54 (69) 100 11/13/20 16:00 30 11/13/20 16:00 72 11/13/20 15:22 95 31 100 30 11/13/20 15:00 79 23 131/59 (83) 100 11/13/20 14:00 88 20 141/57 (85) 100 11/13/20 13:00 88 14 130/74 (92) 98 11/13/20 12:36 80 21 100 30 11/13/20 12:00 Bi-pap Bi-pap 11/13/20 12:00 83 11/13/20 12:00 30 11/13/20 12:00 98.2 85 14 134/67 (89) 100 11/13/20 11:11 84 13 100 30 11/13/20 11:00 85 18 137/75 (95) 100 11/13/20 10:00 87 18 122/56 (78) 99 11/13/20 09:40 81 16 100 30 11/13/20 09:00 86 23 118/55 (76) 100 11/13/20 08:44 94 11/13/20 08:21 82 19 100 Bi-Pap 30 81 22 99 11/13/20 08:00 Bi-pap Bi-pap 11/13/20 08:00 98.4 92 27 148/74 (98) 100 11/13/20 08:00 87 11/13/20 08:00 30 11/13/20 07:25 100 Bi-Pap 30 11/13/20 07:25 76 23 100 30 11/13/20 07:00 82 23 137/73 (94) 100 Intake and Output 11/14/20 11/15/20 19:00 07:00 Intake Total 1420 ml 920 ml Output Total 430 ml 280 ml Balance 990 ml 640 ml Free Water 60 ml 60 ml IV Total 700 ml Tube Feeding 440 ml 360 ml Blood Product 100 ml 500 ml Other 120 ml Output Urine Total 430 ml 280 ml # Voids 30 # Bowel Movements 25 50 Labs Test 11/12/20 08:39 11/12/20 11:48 11/12/20 12:10 11/12/20 17:54 Arterial Blood pH 7.393 (7.350-7.450) 7.307 (7.350-7.450) Arterial Blood Partial Pressure CO2 65.4 mmHg (35.0-45.0) 84.5 mmHg (35.0-45.0) Arterial Blood Partial Pressure O2 89.1 mmHg (75.0-100.0) 128.1 mmHg (75.0-100.0) Arterial Blood HCO3 39.0 mmol/L (22.0-26.0) 41.3 mmol/L (22.0-26.0) Arterial Blood Oxygen Saturation 96.1 % (95-100) 97.8 % (95-100) Arterial Blood Base Excess 12.3 (-2-2) 12.6 (-2-2) Gallo Test Positive Positive POC Whole Blood Glucose 92 MG/DL (74-106) 102 MG/DL (74-106) Test 11/13/20 01:11 11/13/20 03:45 11/13/20 10:45 11/14/20 00:23 POC Whole Blood Glucose 119 MG/DL (74-106) White Blood Count 4.2 K/UL (4.8-10.8) Red Blood Count 2.61 M/UL (4.20-5.40) Hemoglobin 7.8 G/DL (12.0-16.0) Hematocrit 25.3 % (37.0-47.0) Mean Corpuscular Volume 97 FL (80-99) Mean Corpuscular Hemoglobin 29.7 PG (27.0-31.0) Mean Corpuscular Hemoglobin Concent 30.8 G/DL (32.0-36.0) Red Cell Distribution Width 19.0 % (11.6-14.8) Platelet Count 112 K/UL (150-450) Mean Platelet Volume 9.2 FL (6.5-10.1) Neutrophils (%) (Auto) % (45.0-75.0) Lymphocytes (%) (Auto) % (20.0-45.0) Monocytes (%) (Auto) % (1.0-10.0) Eosinophils (%) (Auto) % (0.0-3.0) Basophils (%) (Auto) % (0.0-2.0) Differential Total Cells Counted 100 Neutrophils % (Manual) 76 % (45-75) Lymphocytes % (Manual) 14 % (20-45) Monocytes % (Manual) 5 % (1-10) Eosinophils % (Manual) 0 % (0-3) Basophils % (Manual) 0 % (0-2) Band Neutrophils 5 % (0-8) Platelet Estimate Decreased Platelet Morphology Normal Polychromasia 1+ Hypochromasia 2+ Anisocytosis 1+ Macrocytosis 1+ Ovalocytes Occasional Stomatocytes Occasional Sodium Level 152 MMOL/L (136-145) Potassium Level 4.2 MMOL/L (3.5-5.1) Chloride Level 112 MMOL/L (98-107) Carbon Dioxide Level 40 MMOL/L (21-32) Anion Gap 0 mmol/L (5-15) Blood Urea Nitrogen 57 mg/dL (7-18) Creatinine 1.3 MG/DL (0.55-1.30) Estimat Glomerular Filtration Rate 39.1 mL/min (>60) Glucose Level 132 MG/DL (74-106) Calcium Level 8.4 MG/DL (8.5-10.1) Phosphorus Level 3.7 MG/DL (2.5-4.9) Magnesium Level 2.1 MG/DL (1.8-2.4) Total Bilirubin 0.5 MG/DL (0.2-1.0) Aspartate Amino Transf (AST/SGOT) 30 U/L (15-37) Alanine Aminotransferase (ALT/SGPT) 27 U/L (12-78) Alkaline Phosphatase 76 U/L (46-116) Total Protein 5.5 G/DL (6.4-8.2) Albumin 2.0 G/DL (3.4-5.0) Globulin 3.5 g/dL Albumin/Globulin Ratio 0.6 (1.0-2.7) Arterial Blood pH 7.400 (7.350-7.450) Arterial Blood Partial Pressure CO2 56.9 mmHg (35.0-45.0) Arterial Blood Partial Pressure O2 88.4 mmHg (75.0-100.0) Arterial Blood HCO3 34.5 mmol/L (22.0-26.0) Arterial Blood Oxygen Saturation 95.9 % (95-100) Arterial Blood Base Excess 8.6 (-2-2) Gallo Test Positive Test 11/14/20 05:50 11/14/20 06:22 11/14/20 07:40 11/15/20 00:43 White Blood Count 5.6 K/UL (4.8-10.8) Red Blood Count 2.57 M/UL (4.20-5.40) Hemoglobin 7.6 G/DL (12.0-16.0) Hematocrit 24.9 % (37.0-47.0) Mean Corpuscular Volume 97 FL (80-99) Mean Corpuscular Hemoglobin 29.7 PG (27.0-31.0) Mean Corpuscular Hemoglobin Concent 30.7 G/DL (32.0-36.0) Red Cell Distribution Width 18.7 % (11.6-14.8) Platelet Count 156 K/UL (150-450) Mean Platelet Volume 8.6 FL (6.5-10.1) Neutrophils (%) (Auto) % (45.0-75.0) Lymphocytes (%) (Auto) % (20.0-45.0) Monocytes (%) (Auto) % (1.0-10.0) Eosinophils (%) (Auto) % (0.0-3.0) Basophils (%) (Auto) % (0.0-2.0) Differential Total Cells Counted 100 Neutrophils % (Manual) 76 % (45-75) Lymphocytes % (Manual) 18 % (20-45) Monocytes % (Manual) 2 % (1-10) Eosinophils % (Manual) 0 % (0-3) Basophils % (Manual) 0 % (0-2) Band Neutrophils 4 % (0-8) Platelet Estimate Adequate Platelet Morphology Normal Hypochromasia 2+ Anisocytosis 2+ Sodium Level 152 MMOL/L (136-145) Potassium Level 4.1 MMOL/L (3.5-5.1) Chloride Level 109 MMOL/L (98-107) Carbon Dioxide Level 37 MMOL/L (21-32) Anion Gap 6 mmol/L (5-15) Blood Urea Nitrogen 50 mg/dL (7-18) Creatinine 1.2 MG/DL (0.55-1.30) Estimat Glomerular Filtration Rate 42.9 mL/min (>60) Glucose Level 115 MG/DL (74-106) Uric Acid 7.4 MG/DL (2.6-7.2) Calcium Level 8.3 MG/DL (8.5-10.1) Phosphorus Level 3.2 MG/DL (2.5-4.9) Magnesium Level 2.0 MG/DL (1.8-2.4) Total Bilirubin 0.6 MG/DL (0.2-1.0) Aspartate Amino Transf (AST/SGOT) 36 U/L (15-37) Alanine Aminotransferase (ALT/SGPT) 31 U/L (12-78) Alkaline Phosphatase 83 U/L (46-116) C-Reactive Protein, Quantitative 4.9 mg/dL (0.00-0.90) Pro-B-Type Natriuretic Peptide > 42437 pg/mL (0-125) Total Protein 5.7 G/DL (6.4-8.2) Albumin 2.2 G/DL (3.4-5.0) Globulin 3.5 g/dL Albumin/Globulin Ratio 0.6 (1.0-2.7) Arterial Blood pH 7.425 (7.350-7.450) Arterial Blood Partial Pressure CO2 58.1 mmHg (35.0-45.0) Arterial Blood Partial Pressure O2 81.3 mmHg (75.0-100.0) Arterial Blood HCO3 37.3 mmol/L (22.0-26.0) Arterial Blood Oxygen Saturation 95.4 % (95-100) Arterial Blood Base Excess 11.5 (-2-2) Gallo Test Positive POC Whole Blood Glucose 112 MG/DL (74-106) Test 11/15/20 05:21 POC Whole Blood Glucose 99 MG/DL (74-106) Height (Feet): 5 Height (Inches): 0.00 Weight (Pounds): 145 Objective Physical Exam General: Awake and alert, no acute distress HEENT: NC/AT. EOMI. Cardiovascular: Irregularly irregular rhythm. Resp: Normal work of breathing. ++simple face mask Abdomen: Abdomen is soft, nondistended. Nontender Skin: Intact. No abrasions, laceration or rash over the exposed skin MSK: Normal tone and bulk. Moving all extremities. Neuro: Awake and alert. Mentating appropriately. Hawk Ma MD Nov 15, 2020 06:36
--- NOTE | 2020-11-15 06:43 | NUR ---
NURSE NOTES: Dr. Ma at bedside. No new orders endorsed.
--- NOTE | 2020-11-15 07:08 | NUR ---
NURSE HAND-OFF REPORT: Important Events on Shift: x2 PRBC during night; pending CMBC Patient Status: Stable Diet: Gluc 1.5 Pending Orders: Pending Results/Labs: Pending MD notification: Latest Vital Signs: Temperature 99.0 , Pulse 88 , B/P 131 /66 , Respiratory Rate 27 , O2 SAT 99 , Simple Mask, O2 Flow Rate 6.0 . Vital Sign Comment: EKG Rhythm: Atrial Fibrillation Rhythm change?: N MD Notified?: - MD Response: Latest Elizabeth Fall Score: 50 Fall Risk: High Risk Safety Measures: Call light Within Reach, Bed Alarm Zone 1, Side Rails Side Rails x3, Bed position Low and Locked. Fall Precautions: Yellow Socks Patient Fall Education Report given to SERGIO Zimmerman.
--- NOTE | 2020-11-15 07:10 | NUR ---
NURSE NOTES: Report received from Shannan Rodriguez RN.Pt asleep ,wakes up on and off with tactile stimuli,noted no resp distress on Bipap at same settings,16/5 Fio2 40%,no signs of pain or discomfort,Afib on the monitor,GT feeding Glucerna 1.5 at 40 ml/hr,no residual noted,Green cath draining yellow urine,Rectal tube in placed,skin warm and dry,IV site to Lt SC TLC intact,SR up x2 HOB elevated bed lock in lowest position,will continue with plans of care.
[2020-11-15 07:29] LABS: BASOPHILS % (AUTO) 0.7 % (0.0-2.0); EOSINOPHILS % (AUTO) 1.1 % (0.0-3.0); HEMATOCRIT 30.8 % (37.0-47.0); HEMOGLOBIN 9.8 G/DL (12.0-16.0); LYMPHOCYTES % (AUTO) 11.3 % (20.0-45.0); MEAN CORPUSCULAR VOLUME 94 FL (80-99); NEUTROPHILS % (AUTO) 78.9 % (45.0-75.0); PLATELET COUNT 160 K/UL (150-450); RED BLOOD COUNT 3.27 M/UL (4.20-5.40); RED CELL DISTRIBUTION WIDTH 17.2 % (11.6-14.8); WHITE BLOOD COUNT 5.9 K/UL (4.8-10.8)
[2020-11-15 07:54] LABS: ALBUMIN 2.1 G/DL (3.4-5.0); ALBUMIN/GLOBULIN RATIO 0.6 (1.0-2.7); CALCIUM 8.1 MG/DL (8.5-10.1); CREATININE 1.1 MG/DL (0.55-1.30); PHOSPHORUS 3.8 MG/DL (2.5-4.9); POTASSIUM 4.6 MMOL/L (3.5-5.1)
--- NOTE | 2020-11-15 07:55 | Pulmonology Progress Note ---
Subjective ROS Limited/Unobtainable: Yes Interval Events: Intubated 10/31/20; extubated 11/05/20; BiPAP Constitutional: Denies: fever HEENT: Repors: no symptoms Respiratory: Reports: no symptoms Cardiovascular: Reports: no symptoms Gastrointestinal/Abdominal: Reports: diarrhea Psychiatric: Reports: other Allergies: Coded Allergies: No Known Allergies (Unverified , 10/17/20) All Systems: reviewed and negative except above Objective Last 24 Hour Vital Signs Date Time Temp Pulse Resp B/P (MAP) Pulse Ox O2 Delivery O2 Flow Rate FiO2 11/15/20 07:52 94 Venturi Mask 6.0 35 11/15/20 06:00 88 27 131/66 (87) 99 11/15/20 05:18 90 25 100 40 11/15/20 05:00 86 26 115/53 (73) 98 11/15/20 04:00 74 11/15/20 04:00 Bi-pap Bi-pap 11/15/20 04:00 40 11/15/20 04:00 86 25 149/59 (89) 98 11/15/20 03:33 88 30 100 40 11/15/20 03:00 86 23 135/81 (99) 99 11/15/20 02:00 88 21 156/61 (92) 98 11/15/20 01:31 86 28 100 40 11/15/20 01:00 87 25 113/46 (68) 100 11/15/20 00:00 Bi-pap Bi-pap 11/15/20 00:00 89 11/15/20 00:00 99.0 86 24 135/49 (77) 100 11/14/20 23:30 85 29 100 40 11/14/20 23:00 89 29 113/50 (71) 99 11/14/20 22:00 98.5 90 24 124/44 (70) 100 11/14/20 21:30 87 26 98 40 11/14/20 21:00 91 24 120/41 (67) 100 11/14/20 20:00 40 11/14/20 20:00 Bi-pap Bi-pap 11/14/20 20:00 92 11/14/20 20:00 94 29 136/46 (76) 99 11/14/20 19:30 98 Bi-Pap 40 11/14/20 19:30 93 33 98 40 11/14/20 19:00 99.1 99 34 141/53 (82) 93 11/14/20 18:00 97 36 138/54 (82) 94 11/14/20 17:00 92 38 154/66 (95) 92 11/14/20 16:00 Bi-pap Bi-pap 11/14/20 16:00 98.0 95 29 147/56 (86) 97 11/14/20 16:00 6.0 35 11/14/20 16:00 94 11/14/20 15:00 95 30 152/69 (96) 96 11/14/20 14:49 99 22 94 6.0 35 11/14/20 14:00 100 34 137/60 (85) 95 11/14/20 13:00 90 32 135/59 (84) 97 11/14/20 13:00 97 34 135/59 (84) 97 11/14/20 12:00 Bi-pap Bi-pap 11/14/20 12:00 98.6 88 32 116/68 (84) 95 11/14/20 12:00 87 11/14/20 12:00 6.0 35 11/14/20 11:45 35.0 11/14/20 11:43 94 Venturi Mask 6.0 30 11/14/20 11:43 88 25 94 6.0 35 11/14/20 11:25 86 23 98 30 11/14/20 11:00 86 24 133/51 (78) 99 11/14/20 10:00 85 25 134/63 (86) 97 11/14/20 09:03 80 25 100 30 11/14/20 09:00 92 30 112/48 (69) 99 11/14/20 08:53 92 11/14/20 08:11 92 31 99 30 11/14/20 08:00 30 11/14/20 08:00 96 11/14/20 08:00 Bi-pap Bi-pap 11/14/20 08:00 98.6 95 20 130/58 (82) 99 l Intake and Output 11/14/20 11/15/20 19:00 07:00 Intake Total 1420 ml 920 ml Output Total 430 ml 280 ml Balance 990 ml 640 ml Free Water 60 ml 60 ml IV Total 700 ml Tube Feeding 440 ml 360 ml Blood Product 100 ml 500 ml Other 120 ml Output Urine Total 430 ml 280 ml # Voids 30 # Bowel Movements 25 50 General Appearance: no acute distress HEENT: atraumatic Respiratory: lungs clear Cardiovascular: normal rate, regular rhythm Abdomen: soft, non tender, other - s/p PEG Laboratory Tests 11/15/20 00:43: POC Whole Blood Glucose 112H 11/15/20 05:21: POC Whole Blood Glucose 99 11/15/20 06:00: White Blood Count 5.9, Red Blood Count 3.27L, Hemoglobin 9.8L, Hematocrit 30.8L, Mean Corpuscular Volume 94, Mean Corpuscular Hemoglobin 29.9, Mean Corpuscular Hemoglobin Concent 31.7L, Red Cell Distribution Width 17.2H, Platelet Count 160, Mean Platelet Volume 8.0, Neutrophils (%) (Auto) 78.9H, Lymphocytes (%) (Auto) 11.3L, Monocytes (%) (Auto) 8.0, Eosinophils (%) (Auto) 1.1, Basophils (%) (Auto) 0.7, Sodium Level 148H, Potassium Level 4.6, Chloride Level 109H, Carbon Dioxide Level 38H, Anion Gap 1L, Blood Urea Nitrogen 49H, Creatinine 1.1, Estimat Glomerular Filtration Rate 47.4, Glucose Level 99, Uric Acid 6.9, Calcium Level 8.1L, Phosphorus Level 3.8, Magnesium Level 2.0, Total Bilirubin 1.0, Aspartate Amino Transf (AST/SGOT) 28, Alanine Aminotransferase (ALT/SGPT) 30, Alkaline Phosphatase 79, Total Protein 5.6L, Albumin 2.1L, Globulin 3.5, Albumin/Globulin Ratio 0.6L Current Medications Medications (Trade) Dose Ordered Sig/Yolanda Route PRN Reason Start Time Stop Time Status Last Admin Dose Admin Acetaminophen (Tylenol) 650 mg Q6H PRN GT Mild Pain (Pain Scale 1-3) 11/04/20 10:45 12/04/20 10:44 11/04/20 18:20 Acetaminophen (Tylenol) 650 mg Q6H PRN GT Temp >100.5 11/04/20 10:45 12/04/20 10:44 Apixaban (Eliquis) 2.5 mg BID GT 11/12/20 18:00 01/22/21 17:59 11/14/20 17:49 Chlorhexidine Gluconate (Eve-Hex 2%) 1 applic DAILY@2000 TOPIC 10/22/20 20:00 01/20/21 19:59 11/14/20 20:29 Digoxin (Lanoxin) 0.125 mg DAILY GT 10/30/20 09:00 01/28/21 08:59 11/14/20 08:53 Haloperidol Lactate 5 mg/ Dextrose 56 ml @ 224 mls/hr Q6H PRN IVPB Agitation 11/04/20 20:30 12/19/20 20:29 11/14/20 01:26 Levothyroxine Sodium (Synthroid) 50 mcg DAILY@0630 ORAL 10/19/20 06:30 11/18/20 06:29 11/15/20 06:03 Ondansetron HCl (Zofran) 4 mg Q6H PRN IVP Nausea & Vomiting 10/17/20 21:15 11/16/20 21:14 Pantoprazole (Protonix) 40 mg Q12HR IVP 11/02/20 21:00 11/25/20 20:59 11/14/20 20:29 Vitamin D (Vitamin D) 3,000 unit DAILY GT 11/12/20 09:00 12/12/20 08:59 11/14/20 08:53 Assessment/Plan Assessment/Plan 1. CHF - CXR (11/07) pulmonary vascular congestion and small pleural effusions. - s/p thoracentesis (11/11) 700mL out 2. CAD/previous non-STEMI. 3. [facility] resident. 4. Bradycardia. 5. Atrial fibrillation. -Started on Eliquis 6. Renal insufficiency. -Nephro following 7. Troponin leak. - Cardio following 8. COVID-19 pneumonia, without fever or leukocytosis - s/p intubated; now extubated 11/06/20 - Still on BiPAP - Sp Cx (11/03) Gram negative bacillus -> now on meropenem per ID - added Levalbuterol 9. Respiratory failure, s/p vent - now extubated 10. 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 UTI, cheryl 12. Dysphagia -s/p PEG (10/23) 13. Hypotension; improved - s/p NS bolus - pressors as needed 14. L pleural effusion; improved - completed Diamox 250 mg q6hr x8 doses -s/p thoracentesis (11/11) 700 mL Noted Edgardo eval; she can be discharged to [facility] on BiPAP 10/01 Will attempt off biPAP during the day and use BiPAP q pm Carlos Woods MD Nov 15, 2020 07:55
--- NOTE | 2020-11-15 08:04 | General Progress Note ---
Subjective ROS Limited/Unobtainable: No Allergies: Coded Allergies: No Known Allergies (Unverified , 10/17/20) Subjective intubated now Objective Last 24 Hour Vital Signs Date Time Temp Pulse Resp B/P (MAP) Pulse Ox O2 Delivery O2 Flow Rate FiO2 11/15/20 07:52 94 Venturi Mask 6.0 35 11/15/20 06:00 88 27 131/66 (87) 99 11/15/20 05:18 90 25 100 40 11/15/20 05:00 86 26 115/53 (73) 98 11/15/20 04:00 74 11/15/20 04:00 Bi-pap Bi-pap 11/15/20 04:00 40 11/15/20 04:00 86 25 149/59 (89) 98 11/15/20 03:33 88 30 100 40 11/15/20 03:00 86 23 135/81 (99) 99 11/15/20 02:00 88 21 156/61 (92) 98 11/15/20 01:31 86 28 100 40 11/15/20 01:00 87 25 113/46 (68) 100 11/15/20 00:00 Bi-pap Bi-pap 11/15/20 00:00 89 11/15/20 00:00 99.0 86 24 135/49 (77) 100 11/14/20 23:30 85 29 100 40 11/14/20 23:00 89 29 113/50 (71) 99 11/14/20 22:00 98.5 90 24 124/44 (70) 100 11/14/20 21:30 87 26 98 40 11/14/20 21:00 91 24 120/41 (67) 100 11/14/20 20:00 40 11/14/20 20:00 Bi-pap Bi-pap 11/14/20 20:00 92 11/14/20 20:00 94 29 136/46 (76) 99 11/14/20 19:30 98 Bi-Pap 40 11/14/20 19:30 93 33 98 40 11/14/20 19:00 99.1 99 34 141/53 (82) 93 11/14/20 18:00 97 36 138/54 (82) 94 11/14/20 17:00 92 38 154/66 (95) 92 11/14/20 16:00 Bi-pap Bi-pap 11/14/20 16:00 98.0 95 29 147/56 (86) 97 11/14/20 16:00 6.0 35 11/14/20 16:00 94 11/14/20 15:00 95 30 152/69 (96) 96 11/14/20 14:49 99 22 94 6.0 35 11/14/20 14:00 100 34 137/60 (85) 95 11/14/20 13:00 90 32 135/59 (84) 97 11/14/20 13:00 97 34 135/59 (84) 97 11/14/20 12:00 Bi-pap Bi-pap 11/14/20 12:00 98.6 88 32 116/68 (84) 95 11/14/20 12:00 87 11/14/20 12:00 6.0 35 11/14/20 11:45 35.0 11/14/20 11:43 94 Venturi Mask 6.0 30 11/14/20 11:43 88 25 94 6.0 35 11/14/20 11:25 86 23 98 30 11/14/20 11:00 86 24 133/51 (78) 99 11/14/20 10:00 85 25 134/63 (86) 97 11/14/20 09:03 80 25 100 30 11/14/20 09:00 92 30 112/48 (69) 99 11/14/20 08:53 92 11/14/20 08:11 92 31 99 30 Intake and Output 11/14/20 11/15/20 19:00 07:00 Intake Total 1420 ml 920 ml Output Total 430 ml 280 ml Balance 990 ml 640 ml Free Water 60 ml 60 ml IV Total 700 ml Tube Feeding 440 ml 360 ml Blood Product 100 ml 500 ml Other 120 ml Output Urine Total 430 ml 280 ml # Voids 30 # Bowel Movements 25 50 Laboratory Tests 11/15/20 00:43: POC Whole Blood Glucose 112H 11/15/20 05:21: POC Whole Blood Glucose 99 11/15/20 06:00: White Blood Count 5.9, Red Blood Count 3.27L, Hemoglobin 9.8L, Hematocrit 30.8L, Mean Corpuscular Volume 94, Mean Corpuscular Hemoglobin 29.9, Mean Corpuscular Hemoglobin Concent 31.7L, Red Cell Distribution Width 17.2H, Platelet Count 160, Mean Platelet Volume 8.0, Neutrophils (%) (Auto) 78.9H, Lymphocytes (%) (Auto) 11.3L, Monocytes (%) (Auto) 8.0, Eosinophils (%) (Auto) 1.1, Basophils (%) (Auto) 0.7, Sodium Level 148H, Potassium Level 4.6, Chloride Level 109H, Carbon Dioxide Level 38H, Anion Gap 1L, Blood Urea Nitrogen 49H, Creatinine 1.1, Estimat Glomerular Filtration Rate 47.4, Glucose Level 99, Uric Acid 6.9, Calcium Level 8.1L, Phosphorus Level 3.8, Magnesium Level 2.0, Total Bilirubin 1.0, Aspartate Amino Transf (AST/SGOT) 28, Alanine Aminotransferase (ALT/SGPT) 30, Alkaline Phosphatase 79, Total Protein 5.6L, Albumin 2.1L, Globulin 3.5, Albumin/Globulin Ratio 0.6L Height (Feet): 5 Height (Inches): 0.00 Weight (Pounds): 145 General Appearance: no apparent distress EENT: normal ENT inspection Neck: supple Cardiovascular: normal rate Respiratory/Chest: decreased breath sounds Abdomen: normal bowel sounds, non tender, soft Extremities: non-tender Assessment/Plan Problem List: (1) Hypothyroidism ICD Codes: E03.9 - Hypothyroidism, unspecified SNOMED: 34633675 (2) Pneumonia due to COVID-19 virus ICD Codes: U07.1 - COVID-19; J12.82 - Pneumonia due to coronavirus disease 2019 SNOMED: 802687062666631006 (3) Malnutrition ICD Codes: E46 - Unspecified protein-calorie malnutrition SNOMED: 32996522 (4) Decubitus skin ulcer ICD Codes: L89.90 - Pressure ulcer of unspecified site, unspecified stage SNOMED: 310988442 (5) Elevated troponin ICD Codes: R77.8 - Other specified abnormalities of plasma proteins SNOMED: 042980520, 969519544, [id number] (6) Atrial fibrillation ICD Codes: I48.91 - Unspecified atrial fibrillation SNOMED: 33126086 (7) Anemia ICD Codes: D64.9 - Anemia, unspecified SNOMED: 561506068 Status: progressing, unchanged Assessment/Plan: GTF fu cardiology fu pulm labs for AM on BIPAP at tick inspector for residuals Skyler Tobar MD Nov 15, 2020 08:04
--- NOTE | 2020-11-15 08:33 | NUR ---
RD ASSESSMENT & RECOMMENDATIONS SEE CARE ACTIVITY FOR COMPLETE ASSESSMENT DAILY ESTIMATED NEEDS: Needs based on Critical care, pulmonary/ 52.3kg abw 25-30 kcals/kg 6600-8963 total kcals 1.2-2 g protein/kg 63-105 g total protein Fluid per MD NUTRITION DIAGNOSIS: Swallowing difficulty R/T dysphagia, decreased cognitive fxn as evidenced by POST MANAGER recommends pureed moist texture diet w/ poor PO, now s/p PEG placement on 10/23, on GT feeds-> s/p extubation. CURRENT TF:Glucerna 1.5@40 x22 hrs (Pt on Synthroid) ENTERAL NUTRITION RECOMMENDATIONS: Glucerna 1.5 @ goal of 40ml/hr x 22 hrs to provide 880ml, 1320kcal, 66g prot, 640ml free water -> Initiate Glucerna 1.5 @ 10ml/hr x 6hrs -> Advance 10ml q 4-6 hrs as tolerated to goal rate -> HOB over 30 degrees/ H2O flush per MD With elevated potassium maintain current TF of Nepro w/ goal of 40ml/hr x22 hrs to meet est needs. Without hemodynamic stability and if able to keep HOB >30 degrees, rec trophic feeding of 10ml/hr ADDITIONAL RECOMMENDATIONS: * Calibrated bedscale wt * Monitor hemodynamic stability-> NE now held, on venturi mask Rec trophic feeding w/ continued HD instability if HOB >30degrees * Monitor BGs, need for hypoglycemics * Increase water flushes for elev Na and BUN . .
[2020-11-15] MEDS: Pantoprazole Inj IVP SCH ×2 (09:33→20:23)
[2020-11-15] MEDS: Vitamin D 1000 units Tab GT SCH (09:33)
[2020-11-15] MEDS: Eliquis 2.5mg tablet GT SCH ×2 (09:33→17:43)
[2020-11-15] MEDS: Digoxin 0.125mg tab GT SCH (09:34)
--- NOTE | 2020-11-15 10:32 | Nephrology Progress Note ---
Assessment/Plan Problem List: (1) Acute kidney injury (2) Anemia (3) Hyperkalemia (4) Elevated troponin (5) Pneumonia due to COVID-19 virus (6) Hypothyroidism Assessment Plan November 15: Seen in ICU discussed with RN. Alternate BiPAP with Venturi mask. Renal parameters stable. Serum sodium lower. Continue per consultants. November 14: Seen in ICU. Remains on BiPAP. Labs reviewed. Hemoglobin remains low. 2 units of transfusion ordered. 1 L of D5W for elevated serum sodium. Continue to monitor renal parameters and electrolytes. Continue per consulta nts. November 13: Discussed with SERGIO Wilkerson. Remains on BiPAP. ABG reviewed. Labs reviewed. 1 L D5W for rising serum sodium given. Continue per pulmonary. November 12: Discussed with RN. On BiPAP. ABG labs and medication list reviewed. Patient full code. Continue per pulmonary. November 11: Remains on BiPAP. Labs reviewed. Serum sodium lower. Potassium stable. Continue per consultants. November 10: On BiPAP. ABG reviewed. On Diamox. Serum sodium rising. 1 L D5W given. Continue to monitor renal parameters. Low vitamin D level of 13 addressed. November 09: Patient getting started on BiPAP. Is retaining CO2. Discussed with . We will start Diamox. Continue to monitor renal parameters. November 08: On oxygen mask. Labs reviewed. Patient full code. Continues to be extubated. Continue pulmonary toilet. Monitor renal parameters. Discussed with RN. Serum creatinine 1.6 at its lowest. November 07: Patient remains on nasal cannula. Full code. Labs reviewed. Low magnesium addressed. Discussed with SERGIO Wilkerson. Continue present care. November 06: Patient is now extubated. Labs reviewed. Medication list reviewed. Serum creatinine stable. Continue post extubation care. November 05: Mental status improved. Labs and medication list reviewed. Serum creatinine 2.2. Weaning trial in process. Continue per consultants. November 04: Full code. Intubated. Labs reviewed. Low potassium addressed. Serum creatinine stable 2.3. Continue per consultants. Weaning as possible. November 03: Remains full code. Remains intubated. FiO2 30%. Discussed with RN. Low potassium addressed. Patient remains on Lasix. Continue to monitor renal parameters. Serum creatinine slightly rising. November 02: Patient remains intubated on ventilator. FiO2 30%. Labs reviewed. Low potassium addressed. Medication list reviewed. Patient on Lasix 40 mg every 8 hours. Serum creatinine higher to 2.3. Feeding changed to Nepro. Potassium supplement given. Continue to monitor renal parameters. November 01: Seen in ICU. Now intubated on ventilator. Discussed with RN. Labs results noted. Abnormal electrolytes addressed. Discussed with RN. Continue per consultants. October 31: Patient seen in ICU. Discussed with SERGIO Miller. ABG noted. Patient acidotic. Being transfused. Potassium is being replaced. Due for another ABG and possible intubation if needed. Conferred with pulmonary and cardiology. October 30: Labs reviewed. Potassium elevated. Kayexalate ordered. Continue to monitor hemoglobin hematocrit and renal parameters. Serum creatinine 2.1. Remains on BiPAP. October 29: Seen in ICU. Discussed with SERGIO Wilkerson. Hemoglobin low. Transfuse 1 unit of packed RBCs. Potassium supplements IV given. Midodrine discontinued. Serum creatinine 2.2 stable. Patient remains on BiPAP. Continue per consultan ts. Continue to monitor hemoglobin hematocrit electrolytes and renal parameters. October 28: Seen in ICU. Remains on BiPAP. Low potassium and low magnesium addressed. Serum creatinine plateaued at 2.2. Continue per current treatment plan. October 27: Patient in ICU. On BiPAP. Serum creatinine rising. Blood pressure more stable. Will give 100 mg Lasix IV push with the hope of reversing oliguria. Medication list reviewed. Continue to monitor renal parameters. October 26: Seen in ICU. On pressors for low blood pressure. Serum creatinine 2.1. Albumin bolus given. Stress dose of steroids initiated. Continue to monitor renal parameters. Continue per consultants. October 25: Patient seen and examined. Trendelenburg. Blood pressure low. Tachycardic. Discussed with RN. Patient to be transferred to ICU. Discussed with ICU charge nurse and hospital charge nurse. Meanwhile patient started on Albumin bolus and 100 cc an hour D5 normal saline. Patient to be started on pressors while in ICU. Patient full code. October 24: No CHEM panel drawn today.. Renal parameters stable. Patient had a GT placed yesterday. Will check labs tomorrow. Medication list reviewed. October 23: Labs reviewed. Renal parameters unchanged. Creatinine 1.9. Continue current management. Medication list reviewed. October 22: Labs reviewed. Serum creatinine lower at 1.8. Patient started on clear liquid. Patient refuses p.o. medications and food at times. Continue per consultants. October 21: Labs reviewed. Serum creatinine unchanged. Continue per consultants. Continue to monitor renal parameters. October 20: Today's labs reviewed. Serum creatinine unchanged. RN reports patient not taking any p.o. meds. Continue per consultants. Serum creatinine appears to be baseline. October 19: Today's labs still not done yet. RN informed. Albumin bolus given again. Continue to monitor electrolytes and renal parameters. Per orders October 18: Patient hypotensive. Due for blood transfusion. Will give albumin bolus. Continue to monitor renal parameters and electrolytes. Labs and medication list reviewed Subjective ROS Limited/Unobtainable: Yes Objective Objective Last 24 Hour Vital Signs Date Time Temp Pulse Resp B/P (MAP) Pulse Ox O2 Delivery O2 Flow Rate FiO2 11/15/20 09:34 120 11/15/20 09:00 120 27 121/58 (79) 94 11/15/20 08:00 Bi-pap Bi-pap 11/15/20 08:00 98.0 85 25 142/68 (92) 92 11/15/20 08:00 85 11/15/20 08:00 6.0 35 11/15/20 07:52 94 Venturi Mask 6.0 35 11/15/20 07:00 80 27 126/62 (83) 99 11/15/20 06:00 88 27 131/66 (87) 99 11/15/20 05:18 90 25 100 40 11/15/20 05:00 86 26 115/53 (73) 98 11/15/20 04:00 74 11/15/20 04:00 Bi-pap Bi-pap 11/15/20 04:00 40 11/15/20 04:00 86 25 149/59 (89) 98 11/15/20 03:33 88 30 100 40 11/15/20 03:00 86 23 135/81 (99) 99 11/15/20 02:00 88 21 156/61 (92) 98 11/15/20 01:31 86 28 100 40 11/15/20 01:00 87 25 113/46 (68) 100 11/15/20 00:00 Bi-pap Bi-pap 11/15/20 00:00 89 11/15/20 00:00 99.0 86 24 135/49 (77) 100 11/14/20 23:30 85 29 100 40 11/14/20 23:00 89 29 113/50 (71) 99 11/14/20 22:00 98.5 90 24 124/44 (70) 100 11/14/20 21:30 87 26 98 40 11/14/20 21:00 91 24 120/41 (67) 100 11/14/20 20:00 40 11/14/20 20:00 Bi-pap Bi-pap 11/14/20 20:00 92 11/14/20 20:00 94 29 136/46 (76) 99 11/14/20 19:30 98 Bi-Pap 40 11/14/20 19:30 93 33 98 40 11/14/20 19:00 99.1 99 34 141/53 (82) 93 11/14/20 18:00 97 36 138/54 (82) 94 11/14/20 17:00 92 38 154/66 (95) 92 11/14/20 16:00 Bi-pap Bi-pap 11/14/20 16:00 98.0 95 29 147/56 (86) 97 11/14/20 16:00 6.0 35 11/14/20 16:00 94 11/14/20 15:00 95 30 152/69 (96) 96 11/14/20 14:49 99 22 94 6.0 35 11/14/20 14:00 100 34 137/60 (85) 95 11/14/20 13:00 90 32 135/59 (84) 97 11/14/20 13:00 97 34 135/59 (84) 97 11/14/20 12:00 Bi-pap Bi-pap 11/14/20 12:00 98.6 88 32 116/68 (84) 95 11/14/20 12:00 87 11/14/20 12:00 6.0 35 11/14/20 11:45 35.0 11/14/20 11:43 94 Venturi Mask 6.0 30 11/14/20 11:43 88 25 94 6.0 35 11/14/20 11:25 86 23 98 30 11/14/20 11:00 86 24 133/51 (78) 99 Intake and Output 11/14/20 11/15/20 19:00 07:00 Intake Total 1420 ml 960 ml Output Total 430 ml 310 ml Balance 990 ml 650 ml Free Water 60 ml 60 ml IV Total 700 ml Tube Feeding 440 ml 400 ml Blood Product 100 ml 500 ml Other 120 ml Output Urine Total 430 ml 310 ml # Voids 30 # Bowel Movements 25 50 Current Medications Medications (Trade) Dose Ordered Sig/Yolanda Route PRN Reason Start Time Stop Time Status Last Admin Dose Admin Acetaminophen (Tylenol) 650 mg Q6H PRN GT Mild Pain (Pain Scale 1-3) 11/04/20 10:45 12/04/20 10:44 11/04/20 18:20 Acetaminophen (Tylenol) 650 mg Q6H PRN GT Temp >100.5 11/04/20 10:45 12/04/20 10:44 Apixaban (Eliquis) 2.5 mg BID GT 11/12/20 18:00 01/22/21 17:59 11/15/20 09:33 Chlorhexidine Gluconate (Eve-Hex 2%) 1 applic DAILY@2000 TOPIC 10/22/20 20:00 01/20/21 19:59 11/14/20 20:29 Digoxin (Lanoxin) 0.125 mg DAILY GT 10/30/20 09:00 01/28/21 08:59 11/15/20 09:34 Haloperidol Lactate 5 mg/ Dextrose 56 ml @ 224 mls/hr Q6H PRN IVPB Agitation 11/04/20 20:30 12/19/20 20:29 11/14/20 01:26 Levothyroxine Sodium (Synthroid) 50 mcg DAILY@0630 ORAL 10/19/20 06:30 11/18/20 06:29 11/15/20 06:03 Ondansetron HCl (Zofran) 4 mg Q6H PRN IVP Nausea & Vomiting 10/17/20 21:15 11/16/20 21:14 Pantoprazole (Protonix) 40 mg Q12HR IVP 11/02/20 21:00 11/25/20 20:59 11/15/20 09:33 Vitamin D (Vitamin D) 3,000 unit DAILY GT 11/12/20 09:00 12/12/20 08:59 11/15/20 09:33 Laboratory Tests 11/15/20 00:43: POC Whole Blood Glucose 112H 11/15/20 05:21: POC Whole Blood Glucose 99 11/15/20 06:00: White Blood Count 5.9, Red Blood Count 3.27L, Hemoglobin 9.8L, Hematocrit 30.8L, Mean Corpuscular Volume 94, Mean Corpuscular Hemoglobin 29.9, Mean Corpuscular Hemoglobin Concent 31.7L, Red Cell Distribution Width 17.2H, Platelet Count 160, Mean Platelet Volume 8.0, Neutrophils (%) (Auto) 78.9H, Lymphocytes (%) (Auto) 11.3L, Monocytes (%) (Auto) 8.0, Eosinophils (%) (Auto) 1.1, Basophils (%) (Auto) 0.7, Sodium Level 148H, Potassium Level 4.6, Chloride Level 109H, Carbon Dioxide Level 38H, Anion Gap 1L, Blood Urea Nitrogen 49H, Creatinine 1.1, Estimat Glomerular Filtration Rate 47.4, Glucose Level 99, Uric Acid 6.9, Calcium Level 8.1L, Phosphorus Level 3.8, Magnesium Level 2.0, Total Bilirubin 1.0, Aspartate Amino Transf (AST/SGOT) 28, Alanine Aminotransferase (ALT/SGPT) 30, Alkaline Phosphatase 79, Total Protein 5.6L, Albumin 2.1L, Globulin 3.5, Albumin/Globulin Ratio 0.6L Height (Feet): 5 Height (Inches): 0.00 Weight (Pounds): 145 General Appearance: mild distress EENT: other - On BiPAP alternate with Venturi mask Cardiovascular: tachycardia Respiratory/Chest: decreased breath sounds Abdomen: distended Dustin Gómez MD Nov 15, 2020 10:32
--- NOTE | 2020-11-15 12:00 | NUR ---
NURSE NOTES: Pt stable ,no resp distress presented,tolerating Venti mask at 40%,O2 sat on high 96%.
--- NOTE | 2020-11-15 12:27 | Infectious Diseases Prog Note ---
Assessment/Plan Assessment/Plan IMPRESSION: Pneumonia with Pseudomonas treated Hypercapnic, hypoxic respiratory failure Recent history of COVID disease, Acute renal failure, Aortic stenosis Atrial fibrillation, hypothyroidism, Anemia. Chronic DVT of R leg Hypotension Gastrostomy status Respiratory acidosis Left pleural effusion s/p thoracentesis RECOMMENDATION: Observe off antibiotic Subjective ROS Limited/Unobtainable: Yes Respiratory: Reports: other - off of BIPAP Neurologic: Reports: confusion, other - on restraint Allergies: Coded Allergies: No Known Allergies (Unverified , 10/17/20) Objective Last 24 Hour Vital Signs Date Time Temp Pulse Resp B/P (MAP) Pulse Ox O2 Delivery O2 Flow Rate FiO2 11/15/20 11:00 121 37 133/71 (91) 94 11/15/20 10:00 120 31 138/72 (94) 95 11/15/20 09:34 120 11/15/20 09:00 120 27 121/58 (79) 94 11/15/20 08:00 Bi-pap Bi-pap 11/15/20 08:00 98.0 85 25 142/68 (92) 92 11/15/20 08:00 85 11/15/20 08:00 6.0 35 11/15/20 07:52 94 Venturi Mask 6.0 35 11/15/20 07:00 80 27 126/62 (83) 99 11/15/20 06:00 88 27 131/66 (87) 99 11/15/20 05:18 90 25 100 40 11/15/20 05:00 86 26 115/53 (73) 98 11/15/20 04:00 74 11/15/20 04:00 Bi-pap Bi-pap 11/15/20 04:00 40 11/15/20 04:00 86 25 149/59 (89) 98 11/15/20 03:33 88 30 100 40 11/15/20 03:00 86 23 135/81 (99) 99 11/15/20 02:00 88 21 156/61 (92) 98 11/15/20 01:31 86 28 100 40 11/15/20 01:00 87 25 113/46 (68) 100 11/15/20 00:00 Bi-pap Bi-pap 11/15/20 00:00 89 11/15/20 00:00 99.0 86 24 135/49 (77) 100 11/14/20 23:30 85 29 100 40 11/14/20 23:00 89 29 113/50 (71) 99 11/14/20 22:00 98.5 90 24 124/44 (70) 100 11/14/20 21:30 87 26 98 40 11/14/20 21:00 91 24 120/41 (67) 100 11/14/20 20:00 40 11/14/20 20:00 Bi-pap Bi-pap 11/14/20 20:00 92 11/14/20 20:00 94 29 136/46 (76) 99 11/14/20 19:30 98 Bi-Pap 40 11/14/20 19:30 93 33 98 40 11/14/20 19:00 99.1 99 34 141/53 (82) 93 11/14/20 18:00 97 36 138/54 (82) 94 11/14/20 17:00 92 38 154/66 (95) 92 11/14/20 16:00 Bi-pap Bi-pap 11/14/20 16:00 98.0 95 29 147/56 (86) 97 11/14/20 16:00 6.0 35 11/14/20 16:00 94 11/14/20 15:00 95 30 152/69 (96) 96 11/14/20 14:49 99 22 94 6.0 35 11/14/20 14:00 100 34 137/60 (85) 95 11/14/20 13:00 90 32 135/59 (84) 97 11/14/20 13:00 97 34 135/59 (84) 97 Height (Feet): 5 Height (Inches): 0.00 Weight (Pounds): 145 General Appearance: no acute distress HEENT: mucous membranes moist Respiratory/Chest: lungs clear, other - O2 by mask Cardiovascular: tachycardia Abdomen: soft, non tender, other - GT feeding Extremities: other - edema decreasing Neurologic/Psychiatric: other - sleeping Laboratory Tests Test 11/15/20 00:43 11/15/20 05:21 11/15/20 06:00 POC Whole Blood Glucose 112 MG/DL (74-106) H 99 MG/DL (74-106) White Blood Count 5.9 K/UL (4.8-10.8) Red Blood Count 3.27 M/UL (4.20-5.40) L Hemoglobin 9.8 G/DL (12.0-16.0) L Hematocrit 30.8 % (37.0-47.0) L Mean Corpuscular Volume 94 FL (80-99) Mean Corpuscular Hemoglobin 29.9 PG (27.0-31.0) Mean Corpuscular Hemoglobin Concent 31.7 G/DL (32.0-36.0) L Red Cell Distribution Width 17.2 % (11.6-14.8) H Platelet Count 160 K/UL (150-450) Mean Platelet Volume 8.0 FL (6.5-10.1) Neutrophils (%) (Auto) 78.9 % (45.0-75.0) H Lymphocytes (%) (Auto) 11.3 % (20.0-45.0) L Monocytes (%) (Auto) 8.0 % (1.0-10.0) Eosinophils (%) (Auto) 1.1 % (0.0-3.0) Basophils (%) (Auto) 0.7 % (0.0-2.0) Sodium Level 148 MMOL/L (136-145) H Potassium Level 4.6 MMOL/L (3.5-5.1) Chloride Level 109 MMOL/L (98-107) H Carbon Dioxide Level 38 MMOL/L (21-32) H Anion Gap 1 mmol/L (5-15) L Blood Urea Nitrogen 49 mg/dL (7-18) H Creatinine 1.1 MG/DL (0.55-1.30) Estimat Glomerular Filtration Rate 47.4 mL/min (>60) Glucose Level 99 MG/DL (74-106) Uric Acid 6.9 MG/DL (2.6-7.2) Calcium Level 8.1 MG/DL (8.5-10.1) L Phosphorus Level 3.8 MG/DL (2.5-4.9) Magnesium Level 2.0 MG/DL (1.8-2.4) Total Bilirubin 1.0 MG/DL (0.2-1.0) Aspartate Amino Transf (AST/SGOT) 28 U/L (15-37) Alanine Aminotransferase (ALT/SGPT) 30 U/L (12-78) Alkaline Phosphatase 79 U/L (46-116) Total Protein 5.6 G/DL (6.4-8.2) L Albumin 2.1 G/DL (3.4-5.0) L Globulin 3.5 g/dL Albumin/Globulin Ratio 0.6 (1.0-2.7) L Current Medications Medications (Trade) Dose Ordered Sig/Yolanda Route PRN Reason Start Time Stop Time Status Last Admin Dose Admin Acetaminophen (Tylenol) 650 mg Q6H PRN GT Mild Pain (Pain Scale 1-3) 11/04/20 10:45 12/04/20 10:44 11/04/20 18:20 Acetaminophen (Tylenol) 650 mg Q6H PRN GT Temp >100.5 11/04/20 10:45 12/04/20 10:44 Apixaban (Eliquis) 2.5 mg BID GT 11/12/20 18:00 01/22/21 17:59 11/15/20 09:33 Chlorhexidine Gluconate (Eve-Hex 2%) 1 applic DAILY@2000 TOPIC 10/22/20 20:00 01/20/21 19:59 11/14/20 20:29 Digoxin (Lanoxin) 0.125 mg DAILY GT 10/30/20 09:00 01/28/21 08:59 11/15/20 09:34 Haloperidol Lactate 5 mg/ Dextrose 56 ml @ 224 mls/hr Q6H PRN IVPB Agitation 11/04/20 20:30 12/19/20 20:29 11/14/20 01:26 Levothyroxine Sodium (Synthroid) 50 mcg DAILY@0630 ORAL 10/19/20 06:30 11/18/20 06:29 11/15/20 06:03 Ondansetron HCl (Zofran) 4 mg Q6H PRN IVP Nausea & Vomiting 10/17/20 21:15 11/16/20 21:14 Pantoprazole (Protonix) 40 mg Q12HR IVP 11/02/20 21:00 11/25/20 20:59 11/15/20 09:33 Vitamin D (Vitamin D) 3,000 unit DAILY GT 11/12/20 09:00 12/12/20 08:59 11/15/20 09:33 Luis Alvarado MD Nov 15, 2020 12:27
--- NOTE | 2020-11-15 12:58 | Surgery Progress Note ---
Surgery Progress Note Subjective Procedure Performed left subclavian central venous catheter insertion Additional Comments oxygen support required labs noted ill appearing responsive somewhat Objective Last 24 Hour Vital Signs Date Time Temp Pulse Resp B/P (MAP) Pulse Ox O2 Delivery O2 Flow Rate FiO2 11/15/20 12:00 97.9 120 28 118/61 (80) 93 11/15/20 12:00 Bi-pap Bi-pap 11/15/20 12:00 6.0 35 11/15/20 11:00 121 37 133/71 (91) 94 11/15/20 10:00 120 31 138/72 (94) 95 11/15/20 09:34 120 11/15/20 09:00 120 27 121/58 (79) 94 11/15/20 08:00 Bi-pap Bi-pap 11/15/20 08:00 98.0 85 25 142/68 (92) 92 11/15/20 08:00 85 11/15/20 08:00 6.0 35 11/15/20 07:52 94 Venturi Mask 6.0 35 11/15/20 07:00 80 27 126/62 (83) 99 11/15/20 06:00 88 27 131/66 (87) 99 11/15/20 05:18 90 25 100 40 11/15/20 05:00 86 26 115/53 (73) 98 11/15/20 04:00 74 11/15/20 04:00 Bi-pap Bi-pap 11/15/20 04:00 40 11/15/20 04:00 86 25 149/59 (89) 98 11/15/20 03:33 88 30 100 40 11/15/20 03:00 86 23 135/81 (99) 99 11/15/20 02:00 88 21 156/61 (92) 98 11/15/20 01:31 86 28 100 40 11/15/20 01:00 87 25 113/46 (68) 100 11/15/20 00:00 Bi-pap Bi-pap 11/15/20 00:00 89 11/15/20 00:00 99.0 86 24 135/49 (77) 100 11/14/20 23:30 85 29 100 40 11/14/20 23:00 89 29 113/50 (71) 99 11/14/20 22:00 98.5 90 24 124/44 (70) 100 11/14/20 21:30 87 26 98 40 11/14/20 21:00 91 24 120/41 (67) 100 11/14/20 20:00 40 11/14/20 20:00 Bi-pap Bi-pap 11/14/20 20:00 92 11/14/20 20:00 94 29 136/46 (76) 99 11/14/20 19:30 98 Bi-Pap 40 11/14/20 19:30 93 33 98 40 11/14/20 19:00 99.1 99 34 141/53 (82) 93 11/14/20 18:00 97 36 138/54 (82) 94 11/14/20 17:00 92 38 154/66 (95) 92 11/14/20 16:00 Bi-pap Bi-pap 11/14/20 16:00 98.0 95 29 147/56 (86) 97 11/14/20 16:00 6.0 35 11/14/20 16:00 94 11/14/20 15:00 95 30 152/69 (96) 96 11/14/20 14:49 99 22 94 6.0 35 11/14/20 14:00 100 34 137/60 (85) 95 11/14/20 13:00 90 32 135/59 (84) 97 11/14/20 13:00 97 34 135/59 (84) 97 I&O Intake and Output 11/14/20 11/15/20 19:00 07:00 Intake Total 1420 ml 960 ml Output Total 430 ml 310 ml Balance 990 ml 650 ml Free Water 60 ml 60 ml IV Total 700 ml Tube Feeding 440 ml 400 ml Blood Product 100 ml 500 ml Other 120 ml Output Urine Total 430 ml 310 ml # Voids 30 # Bowel Movements 25 50 Dressing: saturated Cardiovascular: RSR Respiratory: decreased breath sounds Abdomen: soft, non-tender, present bowel sounds, non-distended, decreased bowel sounds Extremities: edema, no tenderness, no cyanosis Laboratory Tests Test 11/15/20 00:43 11/15/20 05:21 11/15/20 06:00 11/15/20 12:25 POC Whole Blood Glucose 112 MG/DL (74-106) H 99 MG/DL (74-106) 110 MG/DL (74-106) H White Blood Count 5.9 K/UL (4.8-10.8) Red Blood Count 3.27 M/UL (4.20-5.40) L Hemoglobin 9.8 G/DL (12.0-16.0) L Hematocrit 30.8 % (37.0-47.0) L Mean Corpuscular Volume 94 FL (80-99) Mean Corpuscular Hemoglobin 29.9 PG (27.0-31.0) Mean Corpuscular Hemoglobin Concent 31.7 G/DL (32.0-36.0) L Red Cell Distribution Width 17.2 % (11.6-14.8) H Platelet Count 160 K/UL (150-450) Mean Platelet Volume 8.0 FL (6.5-10.1) Neutrophils (%) (Auto) 78.9 % (45.0-75.0) H Lymphocytes (%) (Auto) 11.3 % (20.0-45.0) L Monocytes (%) (Auto) 8.0 % (1.0-10.0) Eosinophils (%) (Auto) 1.1 % (0.0-3.0) Basophils (%) (Auto) 0.7 % (0.0-2.0) Sodium Level 148 MMOL/L (136-145) H Potassium Level 4.6 MMOL/L (3.5-5.1) Chloride Level 109 MMOL/L (98-107) H Carbon Dioxide Level 38 MMOL/L (21-32) H Anion Gap 1 mmol/L (5-15) L Blood Urea Nitrogen 49 mg/dL (7-18) H Creatinine 1.1 MG/DL (0.55-1.30) Estimat Glomerular Filtration Rate 47.4 mL/min (>60) Glucose Level 99 MG/DL (74-106) Uric Acid 6.9 MG/DL (2.6-7.2) Calcium Level 8.1 MG/DL (8.5-10.1) L Phosphorus Level 3.8 MG/DL (2.5-4.9) Magnesium Level 2.0 MG/DL (1.8-2.4) Total Bilirubin 1.0 MG/DL (0.2-1.0) Aspartate Amino Transf (AST/SGOT) 28 U/L (15-37) Alanine Aminotransferase (ALT/SGPT) 30 U/L (12-78) Alkaline Phosphatase 79 U/L (46-116) Total Protein 5.6 G/DL (6.4-8.2) L Albumin 2.1 G/DL (3.4-5.0) L Globulin 3.5 g/dL Albumin/Globulin Ratio 0.6 (1.0-2.7) L Plan Problems: (1) Anemia (2) Acute kidney injury (3) Atrial fibrillation (4) Hyperkalemia (5) Elevated troponin (6) Decubitus skin ulcer Assessment & Plan: Pt presented on admission with Multiple [facility] rbidities including Covid-19 and Pressure Injuries. Primary Nurse reported Pt has been declining food and medications. Sacral DTPI that is evolving noted to Sacrum(L)6cm x (W)12.5cm.. Scattered Purpuric areas that are indurated noted to R and L cheek. Small wound that is 100% slough (L)0.6cm x (W)0.7cm noted at sacrococcygeal area within base of DTPI. MASD noted to Perineum and skin folds of Medial/posterior aspects of Both upper thighs. Affected areas are erythematous and macerated with scattered satellite lesions. DTPI L Heel (L)3cm x (W)4cm, Base of heel is maroon and fluctuant with small purpuric area (L)0.4cm x (W)0.9cm within base of DTPI. l Foot including toes are mottled and cool to touch. L Heel is boggy. L Heel including toes are Mottled and cool to touch. Tx.Plan: Apply Moisture Barrier Paste to Sacrum. Cover with Optifoam drsg.Change every 3 days and prn. Apply Moisture Barrier Paste to abdominal folds, Perineum and skin folds of both upper thighs. Apply Cavilon Skin Barrier to both heels. Cover each Heel with Optifoam drsg. Change every 7 days and prn. Reposition at least every 2hours or as tolerated. Off-load heels with pillow. (7) Malnutrition Assessment & Plan: She was able to self feed on right hand and took a bite of popsicle and tolerated without s.s of aspiration. After 1st bite, then she refused 2nd bite. After this was done, I offered her a cup of cranberry juice, she took few sips and tolerated without s.s of aspiration. I continued to offer but she refused further PO. A: 1. Functional swallow 2. Failure to thrive 3. abnormal electrolytes in setting of heart failure, NSTEMI, elevated BNP, etc.. P/Rec. 1. Pureed and thin liquid 2.3. Goal of care discussion DAILY ESTIMATED NEEDS: Needs based on Cardiac, pulmonary/ 51kg abw 25-30 kcals/kg 5080-1356 total kcals 1-1.5 g protein/kg 51-76 g total protein 20-25 mL/kg 6281-1670 total fluid mLs NUTRITION DIAGNOSIS: Swallowing difficulty R/T dysphagia, decreased cognitive fxn as evidenced by FOOD AND BEVERAGE MANAGER recommends pureed moist texture diet at this time. CURRENT DIET:NPO PO DIET RECOMMENDATIONS: Liberalized REGULAR w/ poor PO (texture per FOOD AND BEVERAGE MANAGER) ADDITIONAL RECOMMENDATIONS: * Calibrated bedscale wt * Monitor PO intake: refusing meds and foods at this time -> rec nonoral feeds w/ continued refusal of PO if part of POC * LOW NA diet w/ PO intake consistently >50% * 4 oz Ensure TID w/ meals (4oz at this time due to poor acceptance, may increase to 8oz w/ good acceptance) (8) Pneumonia due to COVID-19 virus Assessment & Plan: here appears to be increased left pleural fluid and generalized hazy parenchymal opacity, left greater than right. Heart remains enlarged Impression: Increased left pleural effusion Suspect increasing bilateral left greater than right pulmonary edema versus infiltrates worsening intubated on vent weaned extubated (9) Hypothyroidism Jim Oorsco Nov 15, 2020 12:58
--- NOTE | 2020-11-15 15:43 | General Progress Note ---
Subjective ROS Limited/Unobtainable: Yes Allergies: Coded Allergies: No Known Allergies (Unverified , 10/17/20) Objective Last 24 Hour Vital Signs Date Time Temp Pulse Resp B/P (MAP) Pulse Ox O2 Delivery O2 Flow Rate FiO2 11/15/20 15:00 120 34 119/60 (79) 91 11/15/20 14:00 119 33 115/59 (77) 92 11/15/20 13:00 119 29 116/63 (80) 93 11/15/20 12:00 97.9 120 28 118/61 (80) 93 11/15/20 12:00 Bi-pap Bi-pap 11/15/20 12:00 6.0 35 11/15/20 11:00 121 37 133/71 (91) 94 11/15/20 10:00 120 31 138/72 (94) 95 11/15/20 09:34 120 11/15/20 09:00 120 27 121/58 (79) 94 11/15/20 08:00 Bi-pap Bi-pap 11/15/20 08:00 98.0 85 25 142/68 (92) 92 11/15/20 08:00 85 11/15/20 08:00 6.0 35 11/15/20 07:52 94 Venturi Mask 6.0 35 11/15/20 07:00 80 27 126/62 (83) 99 11/15/20 06:00 88 27 131/66 (87) 99 11/15/20 05:18 90 25 100 40 11/15/20 05:00 86 26 115/53 (73) 98 11/15/20 04:00 74 11/15/20 04:00 Bi-pap Bi-pap 11/15/20 04:00 40 11/15/20 04:00 86 25 149/59 (89) 98 11/15/20 03:33 88 30 100 40 11/15/20 03:00 86 23 135/81 (99) 99 11/15/20 02:00 88 21 156/61 (92) 98 11/15/20 01:31 86 28 100 40 11/15/20 01:00 87 25 113/46 (68) 100 11/15/20 00:00 Bi-pap Bi-pap 11/15/20 00:00 89 11/15/20 00:00 99.0 86 24 135/49 (77) 100 11/14/20 23:30 85 29 100 40 11/14/20 23:00 89 29 113/50 (71) 99 11/14/20 22:00 98.5 90 24 124/44 (70) 100 11/14/20 21:30 87 26 98 40 11/14/20 21:00 91 24 120/41 (67) 100 11/14/20 20:00 40 11/14/20 20:00 Bi-pap Bi-pap 11/14/20 20:00 92 11/14/20 20:00 94 29 136/46 (76) 99 11/14/20 19:30 98 Bi-Pap 40 11/14/20 19:30 93 33 98 40 11/14/20 19:00 99.1 99 34 141/53 (82) 93 11/14/20 18:00 97 36 138/54 (82) 94 11/14/20 17:00 92 38 154/66 (95) 92 11/14/20 16:00 Bi-pap Bi-pap 11/14/20 16:00 98.0 95 29 147/56 (86) 97 11/14/20 16:00 6.0 35 11/14/20 16:00 94 Intake and Output 11/14/20 11/15/20 19:00 07:00 Intake Total 1420 ml 960 ml Output Total 430 ml 310 ml Balance 990 ml 650 ml Free Water 60 ml 60 ml IV Total 700 ml Tube Feeding 440 ml 400 ml Blood Product 100 ml 500 ml Other 120 ml Output Urine Total 430 ml 310 ml # Voids 30 # Bowel Movements 25 50 Laboratory Tests 11/15/20 00:43: POC Whole Blood Glucose 112H 11/15/20 05:21: POC Whole Blood Glucose 99 11/15/20 06:00: White Blood Count 5.9, Red Blood Count 3.27L, Hemoglobin 9.8L, Hematocrit 30.8L, Mean Corpuscular Volume 94, Mean Corpuscular Hemoglobin 29.9, Mean Corpuscular Hemoglobin Concent 31.7L, Red Cell Distribution Width 17.2H, Platelet Count 160, Mean Platelet Volume 8.0, Neutrophils (%) (Auto) 78.9H, Lymphocytes (%) (Auto) 11.3L, Monocytes (%) (Auto) 8.0, Eosinophils (%) (Auto) 1.1, Basophils (%) (Auto) 0.7, Sodium Level 148H, Potassium Level 4.6, Chloride Level 109H, Carbon Dioxide Level 38H, Anion Gap 1L, Blood Urea Nitrogen 49H, Creatinine 1.1, Estimat Glomerular Filtration Rate 47.4, Glucose Level 99, Uric Acid 6.9, Calcium Level 8.1L, Phosphorus Level 3.8, Magnesium Level 2.0, Total Bilirubin 1.0, Aspartate Amino Transf (AST/SGOT) 28, Alanine Aminotransferase (ALT/SGPT) 30, Alkaline Phosphatase 79, Total Protein 5.6L, Albumin 2.1L, Globulin 3.5, Albumin/Globulin Ratio 0.6L 11/15/20 12:25: POC Whole Blood Glucose 110H Height (Feet): 5 Height (Inches): 0.00 Weight (Pounds): 145 Assessment/Plan Problem List: (1) Anemia ICD Codes: D64.9 - Anemia, unspecified SNOMED: 122959670 (2) Acute kidney injury ICD Codes: N17.9 - Acute kidney failure, unspecified SNOMED: 46033192, 2113751 (3) Atrial fibrillation ICD Codes: I48.91 - Unspecified atrial fibrillation SNOMED: 33263239 (4) Elevated troponin ICD Codes: R77.8 - Other specified abnormalities of plasma proteins SNOMED: 118097021, 343316387, 365002781 (5) Malnutrition ICD Codes: E46 - Unspecified protein-calorie malnutrition SNOMED: 93732835 (6) Pneumonia due to COVID-19 virus ICD Codes: U07.1 - COVID-19; J12.82 - Pneumonia due to coronavirus disease 2019 SNOMED: 918573617347984144 (7) Hypothyroidism ICD Codes: E03.9 - Hypothyroidism, unspecified SNOMED: 60970760 Status: progressing, unchanged Assessment/Plan: pneumonia on bipap tachycardia lethargic poor prognosis azotemia malnuutrition not improving resp insuff sepsis Neri Dumont MD Nov 15, 2020 15:43
--- NOTE | 2020-11-15 17:00 | NUR ---
NURSE NOTES: NOted desaturating to 84% sustainingTony increased Venti mask to 55% 14 L.No further desaturation presented,O2 sat at 96%.
--- NOTE | 2020-11-15 18:00 | NUR ---
NURSE NOTES: Bed bath given,Rectal tube leaking,pt incontinent of liquid stools,kept dry and clean,pulled up ,turned and repositioned.
--- NOTE | 2020-11-15 18:55 | NUR ---
NURSE HAND-OFF REPORT: Latest Vital Signs: Temperature 98.8 , Pulse 118 , B/P 122 /66 , Respiratory Rate 27 , O2 SAT 93 , Simple Mask, O2 Flow Rate 14.0 . Vital Sign Comment: stable EKG Rhythm: Atrial Flutter Rhythm change?: N MD Notified?: - MD Response: Latest Elizabeth Fall Score: 50 Fall Risk: High Risk Safety Measures: Call light Within Reach, Bed Alarm Zone 1, Side Rails Side Rails x3, Bed position Low and Locked. Fall Precautions: Yellow Socks Patient Fall Education Report given to Katy Johnson RN..
--- NOTE | 2020-11-15 19:20 | NUR ---
Received report from SERGIO Zimmerman and assumed care of patient.
[2020-11-15] MEDS: Dyna-Hex 2% Top Sol 2oz TOPIC SCH (20:23)
--- NOTE | 2020-11-15 20:30 | NUR ---
Assessment complete. Pt is lethargic this evening. Pt does open eyes to loud voice. Patients Vital signs are stable and patient is in no acute distress on Bipap. TF are infusing with minimal residual. Medications administered per orders, see eMAR and charting for additional details. Pt temperature a little low at 96.1F. Placed bear hugger on patient at medium setting. Repositioned patient. Will continue to monitor.
--- NOTE | 2020-11-15 22:13 | NUR ---
Pt more alert, disconnecting Bipap hose from mask. Mittens in place, but wiggles out of mittens. RN reapplied mittens and reconnected Bipap hose. Pt repositioned. Will continue to monitor.
[2020-11-16] VITALS (23 sets, daily range): BP systolic 106–151; BP diastolic 44–80
--- NOTE | 2020-11-16 00:28 | NUR ---
Midnight assessment complete, see charting for details. BG is 105. Patient repositioned. VSS and patient in NAD. Will continue to monitor.
--- NOTE | 2020-11-16 02:15 | NUR ---
Patient remains stable on Bipap. Pt lethargic, but will open eyes to loud voice and light pain. VSS. Patient is in no acute distress. Will continue to monitor.
--- NOTE | 2020-11-16 04:35 | NUR ---
Complete bed bath completed. 0400 assessment complete, see charting for details. Patient remains lethargic and VSS. Will continue to monitor.
--- NOTE | 2020-11-16 06:20 | NUR ---
Pt stable this shift on BIPAP. VS stable overnight. pt had minimal U.O. and will endorse this to day shift RN (total of ~250ml overnight). Patient in no acute distress. Repositioned and will continue to monitor.
--- NOTE | 2020-11-16 06:59 | Hematology/Onc Progress Note ---
Assessment/Plan Assessment/Plan Assessment and recs # Pancytopenia likely due to consumption, critical state, r/o infection, remains in the icu --> anemia panel has been ordered-->reviewed --> hgb 8.1->9.3->9.7-->9.5-->10. 5-->10.2-->9.1->8.6-->7.8-->8.1-->9.2-->8.7-->9.1-->6.7->9.8 --> wbc 2.7 --> no hemolysis is noted --> transfuse on prn basis --> 1 unit prbc 10/30 # Thrombocytopenia likely due to reactive process --> plt 138-->149-->176-->162-->112 --> imaging prn --> smear has been reviewed --> viral w/u neg # Hypercoag disorder with Atrial fibrillation --> consider anticoag as per cards --> if bleeding, consider hold anticoag # Elevated trop --> per cards # Hyperkalemia --> per renal # Acute kidney injury --> per renal # Resp failure on bipap # Recently COVID-19 positive # Dvt ppx scds --> lovenox sq-->apixaban Appreciate consultation and dw rn Subjective Constitutional: Denies: no symptoms, chills, fever, malaise, weakness, other HEENT: Denies: no symptoms, eye pain, blurred vision, tearing, double vision, ear pain, ear discharge, nose pain, nose congestion, throat pain, throat swelling, mouth pain, mouth swelling, other Cardiovascular: Denies: no symptoms, chest pain, edema, irregular heart rate, lightheadedness, palpitations, syncope, other Respiratory: Denies: no symptoms, cough, shortness of breath, SOB with excertion, SOB at rest, sputum, wheezing, other Gastrointestinal/Abdominal: Denies: no symptoms, abdomen distended, abdominal pain, black stools, tarry stools, blood in stool, constipated, diarrhea, difficulty swallowing, nausea, poor appetite, poor fluid intake, rectal bleeding, vomiting, other Neurologic/Psychiatric: Denies: no symptoms, anxiety, depressed, emotional problems, headache, numbness, paresthesia, pre-existing deficit, seizure, tingling, tremors, weakness, other Endocrine: Denies: no symptoms, excessive sweating, flushing, intolerance to cold, intolerance to heat, increased hunger, increased thirst, increased urine, unexplained weight gain, unexplained weight loss, other Allergies: Coded Allergies: No Known Allergies (Unverified , 10/17/20) Subjective 10/19 cbc is pending, did get blood transfusion last night, pending results 10/20 meds noted, no bleeding, labs reviewed, rosio rn, no new changes 10/21 on 4l nc, has been refusing labs, meds noted, no bleeding 10/22 nc, refusing meds labs reviewed, rosio rn 10/23 is potentially for egd this am, no bleeding, cbc is noted 10/25 meds noted, no bleeidng, is on nc, no night sweats, bp bolus pending 10/26 bed bath done, meds noted, no bleeding, cbc reviewed from am 10/27 lethargic, on bipap, levophed, meds reviewed 10/28 icu, lethargic, remains on bipap, pressors 10/29 icu, lethargic, meds noted, on bipap, labs noted 10/30 icu, bipap, to get 1 unit prbc, meds reviewed, labs noted 10/31 icu, on vent, no bipap 11/01: remains in icu, no bleeding reported 11/02 icu, lethargic, on vent, with gt feeds on hold, labs noted 11/03 icu, intubated on vent, lethargic, labs reviewed, meds noted 11/04 icu, remains intuabted is on vent, lethargic, labs reviewed 11/05 icu, nv, on vent, lethargic, labs noted 11/06 icu, extubated, is on simple mask, meds noted 11/08 in icu, on simple mask and bipap prn, labs reviewed 11/09 icu, labs reviewed, on face mask, meds noted 11/10 icu, asleep, bipap, with rothman, meds noted, rosio rn 11/11 icu, meds noted, remains bipap, labs reviewed 11/12 icu, labs noted, meds reviewed, no bleeding 11/13 icu care, labs noted, with lower plts, meds reviewed, still on apixaban 2.5 11/15 meds reviewed, icu, labs are pending, most recent hgb 6.7 11/16 meds reviewed, labs noted, icu, dw rn, no major events overnight Objective Objective Current Medications Medications (Trade) Dose Ordered Sig/Yolanda Route PRN Reason Start Time Stop Time Status Last Admin Dose Admin Acetaminophen (Tylenol) 650 mg Q6H PRN GT Mild Pain (Pain Scale 1-3) 11/04/20 10:45 12/04/20 10:44 11/04/20 18:20 Acetaminophen (Tylenol) 650 mg Q6H PRN GT Temp >100.5 11/04/20 10:45 12/04/20 10:44 Apixaban (Eliquis) 2.5 mg BID GT 11/12/20 18:00 01/22/21 17:59 11/15/20 17:43 Chlorhexidine Gluconate (Eve-Hex 2%) 1 applic DAILY@2000 TOPIC 10/22/20 20:00 01/20/21 19:59 11/15/20 20:23 Digoxin (Lanoxin) 0.125 mg DAILY GT 10/30/20 09:00 01/28/21 08:59 11/15/20 09:34 Haloperidol Lactate 5 mg/ Dextrose 56 ml @ 224 mls/hr Q6H PRN IVPB Agitation 11/04/20 20:30 12/19/20 20:29 11/14/20 01:26 Levothyroxine Sodium (Synthroid) 50 mcg DAILY@0630 ORAL 10/19/20 06:30 11/18/20 06:29 11/16/20 06:24 Ondansetron HCl (Zofran) 4 mg Q6H PRN IVP Nausea & Vomiting 10/17/20 21:15 11/16/20 21:14 Pantoprazole (Protonix) 40 mg Q12HR IVP 11/02/20 21:00 11/25/20 20:59 11/15/20 20:23 Vitamin D (Vitamin D) 3,000 unit DAILY GT 11/12/20 09:00 12/12/20 08:59 11/15/20 09:33 Last 24 Hour Vital Signs Date Time Temp Pulse Resp B/P (MAP) Pulse Ox O2 Delivery O2 Flow Rate FiO2 11/16/20 06:00 85 26 119/65 (83) 96 11/16/20 05:30 80 25 100 30 11/16/20 05:00 87 23 106/53 (70) 100 11/16/20 04:00 Bi-pap Bi-pap 11/16/20 04:00 86 11/16/20 04:00 97.4 85 26 108/50 (69) 100 11/16/20 04:00 40 11/16/20 03:31 85 25 100 40 11/16/20 03:00 85 23 108/48 (68) 100 11/16/20 02:00 83 26 116/49 (71) 99 11/16/20 01:30 77 26 100 40 11/16/20 01:00 87 26 106/44 (64) 100 11/16/20 00:00 40 11/16/20 00:00 76 11/16/20 00:00 98.6 84 24 113/45 (67) 100 11/16/20 00:00 Bi-pap Bi-pap 11/15/20 23:30 82 26 99 40 11/15/20 23:00 76 26 104/51 (68) 99 11/15/20 22:00 84 24 136/70 (92) 100 11/15/20 21:38 89 25 100 40 11/15/20 21:00 74 25 97/46 (63) 98 11/15/20 20:00 40 11/15/20 20:00 Bi-pap Bi-pap 11/15/20 20:00 85 11/15/20 20:00 96.1 109 27 92/41 (58) 97 11/15/20 19:57 116 23 97 40 11/15/20 19:00 118 30 104/52 (69) 96 11/15/20 18:00 118 27 122/66 (84) 93 11/15/20 17:58 95 Venturi Mask 14.0 55 11/15/20 17:00 120 31 124/63 (83) 90 11/15/20 16:01 Venturi Mask 35.0 Venturi Mask 11/15/20 16:00 98.8 120 31 114/57 (76) 91 11/15/20 16:00 6.0 35 11/15/20 16:00 118 11/15/20 15:45 92 20 94 Venturi Mask 6.0 35 11/15/20 15:00 120 34 119/60 (79) 91 11/15/20 14:00 119 33 115/59 (77) 92 11/15/20 13:00 119 29 116/63 (80) 93 11/15/20 12:01 Venturi Mask 35.0 Venturi Mask 11/15/20 12:00 97.9 120 28 118/61 (80) 93 11/15/20 12:00 6.0 35 11/15/20 11:00 121 37 133/71 (91) 94 11/15/20 10:00 120 31 138/72 (94) 95 11/15/20 09:34 120 11/15/20 09:00 120 27 121/58 (79) 94 11/15/20 08:01 Venturi Mask 35.0 Venturi Mask 11/15/20 08:00 98.0 85 25 142/68 (92) 92 11/15/20 08:00 85 11/15/20 08:00 6.0 35 11/15/20 07:52 94 Venturi Mask 6.0 35 11/15/20 07:00 80 27 126/62 (83) 99 11/15/20 06:00 88 27 131/66 (87) 99 11/15/20 05:18 90 25 100 40 11/15/20 05:00 86 26 115/53 (73) 98 11/15/20 04:00 74 11/15/20 04:00 Bi-pap Bi-pap 11/15/20 04:00 40 11/15/20 04:00 86 25 149/59 (89) 98 11/15/20 03:33 88 30 100 40 11/15/20 03:00 86 23 135/81 (99) 99 11/15/20 02:00 88 21 156/61 (92) 98 11/15/20 01:31 86 28 100 40 11/15/20 01:00 87 25 113/46 (68) 100 11/15/20 00:00 Bi-pap Bi-pap 11/15/20 00:00 89 11/15/20 00:00 99.0 86 24 135/49 (77) 100 11/14/20 23:30 85 29 100 40 11/14/20 23:00 89 29 113/50 (71) 99 11/14/20 22:00 98.5 90 24 124/44 (70) 100 11/14/20 21:30 87 26 98 40 11/14/20 21:00 91 24 120/41 (67) 100 11/14/20 20:00 40 11/14/20 20:00 Bi-pap Bi-pap 11/14/20 20:00 92 11/14/20 20:00 94 29 136/46 (76) 99 11/14/20 19:30 98 Bi-Pap 40 11/14/20 19:30 93 33 98 40 11/14/20 19:00 99.1 99 34 141/53 (82) 93 11/14/20 18:00 97 36 138/54 (82) 94 11/14/20 17:00 92 38 154/66 (95) 92 11/14/20 16:00 Bi-pap Bi-pap 11/14/20 16:00 98.0 95 29 147/56 (86) 97 11/14/20 16:00 6.0 35 11/14/20 16:00 94 11/14/20 15:00 95 30 152/69 (96) 96 11/14/20 14:49 99 22 94 6.0 35 11/14/20 14:00 100 34 137/60 (85) 95 11/14/20 13:00 90 32 135/59 (84) 97 11/14/20 13:00 97 34 135/59 (84) 97 11/14/20 12:00 Bi-pap Bi-pap 11/14/20 12:00 98.6 88 32 116/68 (84) 95 11/14/20 12:00 87 11/14/20 12:00 6.0 35 11/14/20 11:45 35.0 11/14/20 11:43 94 Venturi Mask 6.0 30 11/14/20 11:43 88 25 94 6.0 35 11/14/20 11:25 86 23 98 30 11/14/20 11:00 86 24 133/51 (78) 99 21 10:00 85 25 134/63 (86) 97 11/14/20 09:03 80 25 100 30 11/14/20 09:00 92 30 112/48 (69) 99 11/14/20 08:53 92 11/14/20 08:11 92 31 99 30 11/14/20 08:00 30 11/14/20 08:00 96 11/14/20 08:00 Bi-pap Bi-pap 11/14/20 08:00 98.6 95 20 130/58 (82) 99 11/14/20 07:26 98 Bi-Pap 30 11/14/20 07:26 84 28 98 30 11/14/20 07:00 93 25 143/58 (86) 99 Intake and Output 11/15/20 11/16/20 19:00 07:00 Intake Total 900 ml 400 ml Output Total 450 ml 375 ml Balance 450 ml 25 ml Free Water 300 ml Tube Feeding 480 ml 400 ml Other 120 ml Output Urine Total 350 ml 225 ml Stool Total 100 ml 150 ml Labs Test 11/13/20 10:45 11/14/20 00:23 11/14/20 05:50 11/14/20 06:22 Arterial Blood pH 7.400 (7.350-7.450) Arterial Blood Partial Pressure CO2 56.9 mmHg (35.0-45.0) Arterial Blood Partial Pressure O2 88.4 mmHg (75.0-100.0) Arterial Blood HCO3 34.5 mmol/L (22.0-26.0) Arterial Blood Oxygen Saturation 95.9 % (95-100) Arterial Blood Base Excess 8.6 (-2-2) Gallo Test Positive White Blood Count 5.6 K/UL (4.8-10.8) Red Blood Count 2.57 M/UL (4.20-5.40) Hemoglobin 7.6 G/DL (12.0-16.0) Hematocrit 24.9 % (37.0-47.0) Mean Corpuscular Volume 97 FL (80-99) Mean Corpuscular Hemoglobin 29.7 PG (27.0-31.0) Mean Corpuscular Hemoglobin Concent 30.7 G/DL (32.0-36.0) Red Cell Distribution Width 18.7 % (11.6-14.8) Platelet Count 156 K/UL (150-450) Mean Platelet Volume 8.6 FL (6.5-10.1) Neutrophils (%) (Auto) % (45.0-75.0) Lymphocytes (%) (Auto) % (20.0-45.0) Monocytes (%) (Auto) % (1.0-10.0) Eosinophils (%) (Auto) % (0.0-3.0) Basophils (%) (Auto) % (0.0-2.0) Differential Total Cells Counted 100 Neutrophils % (Manual) 76 % (45-75) Lymphocytes % (Manual) 18 % (20-45) Monocytes % (Manual) 2 % (1-10) Eosinophils % (Manual) 0 % (0-3) Basophils % (Manual) 0 % (0-2) Band Neutrophils 4 % (0-8) Platelet Estimate Adequate Platelet Morphology Normal Hypochromasia 2+ Anisocytosis 2+ Sodium Level 152 MMOL/L (136-145) Potassium Level 4.1 MMOL/L (3.5-5.1) Chloride Level 109 MMOL/L (98-107) Carbon Dioxide Level 37 MMOL/L (21-32) Anion Gap 6 mmol/L (5-15) Blood Urea Nitrogen 50 mg/dL (7-18) Creatinine 1.2 MG/DL (0.55-1.30) Estimat Glomerular Filtration Rate 42.9 mL/min (>60) Glucose Level 115 MG/DL (74-106) Uric Acid 7.4 MG/DL (2.6-7.2) Calcium Level 8.3 MG/DL (8.5-10.1) Phosphorus Level 3.2 MG/DL (2.5-4.9) Magnesium Level 2.0 MG/DL (1.8-2.4) Total Bilirubin 0.6 MG/DL (0.2-1.0) Aspartate Amino Transf (AST/SGOT) 36 U/L (15-37) Alanine Aminotransferase (ALT/SGPT) 31 U/L (12-78) Alkaline Phosphatase 83 U/L (46-116) C-Reactive Protein, Quantitative 4.9 mg/dL (0.00-0.90) Pro-B-Type Natriuretic Peptide > 06305 pg/mL (0-125) Total Protein 5.7 G/DL (6.4-8.2) Albumin 2.2 G/DL (3.4-5.0) Globulin 3.5 g/dL Albumin/Globulin Ratio 0.6 (1.0-2.7) Test 11/14/20 07:40 11/15/20 00:43 11/15/20 05:21 11/15/20 06:00 Arterial Blood pH 7.425 (7.350-7.450) Arterial Blood Partial Pressure CO2 58.1 mmHg (35.0-45.0) Arterial Blood Partial Pressure O2 81.3 mmHg (75.0-100.0) Arterial Blood HCO3 37.3 mmol/L (22.0-26.0) Arterial Blood Oxygen Saturation 95.4 % (95-100) Arterial Blood Base Excess 11.5 (-2-2) Gallo Test Positive POC Whole Blood Glucose 112 MG/DL (74-106) 99 MG/DL (74-106) White Blood Count 5.9 K/UL (4.8-10.8) Red Blood Count 3.27 M/UL (4.20-5.40) Hemoglobin 9.8 G/DL (12.0-16.0) Hematocrit 30.8 % (37.0-47.0) Mean Corpuscular Volume 94 FL (80-99) Mean Corpuscular Hemoglobin 29.9 PG (27.0-31.0) Mean Corpuscular Hemoglobin Concent 31.7 G/DL (32.0-36.0) Red Cell Distribution Width 17.2 % (11.6-14.8) Platelet Count 160 K/UL (150-450) Mean Platelet Volume 8.0 FL (6.5-10.1) Neutrophils (%) (Auto) 78.9 % (45.0-75.0) Lymphocytes (%) (Auto) 11.3 % (20.0-45.0) Monocytes (%) (Auto) 8.0 % (1.0-10.0) Eosinophils (%) (Auto) 1.1 % (0.0-3.0) Basophils (%) (Auto) 0.7 % (0.0-2.0) Sodium Level 148 MMOL/L (136-145) Potassium Level 4.6 MMOL/L (3.5-5.1) Chloride Level 109 MMOL/L (98-107) Carbon Dioxide Level 38 MMOL/L (21-32) Anion Gap 1 mmol/L (5-15) Blood Urea Nitrogen 49 mg/dL (7-18) Creatinine 1.1 MG/DL (0.55-1.30) Estimat Glomerular Filtration Rate 47.4 mL/min (>60) Glucose Level 99 MG/DL (74-106) Uric Acid 6.9 MG/DL (2.6-7.2) Calcium Level 8.1 MG/DL (8.5-10.1) Phosphorus Level 3.8 MG/DL (2.5-4.9) Magnesium Level 2.0 MG/DL (1.8-2.4) Total Bilirubin 1.0 MG/DL (0.2-1.0) Aspartate Amino Transf (AST/SGOT) 28 U/L (15-37) Alanine Aminotransferase (ALT/SGPT) 30 U/L (12-78) Alkaline Phosphatase 79 U/L (46-116) Total Protein 5.6 G/DL (6.4-8.2) Albumin 2.1 G/DL (3.4-5.0) Globulin 3.5 g/dL Albumin/Globulin Ratio 0.6 (1.0-2.7) Test 11/15/20 12:25 11/15/20 17:37 11/16/20 00:27 11/16/20 06:09 POC Whole Blood Glucose 110 MG/DL (74-106) 121 MG/DL (74-106) 105 MG/DL (74-106) 112 MG/DL (74-106) Height (Feet): 5 Height (Inches): 0.00 Weight (Pounds): 145 Objective Physical Exam General: Awake and alert, no acute distress HEENT: NC/AT. EOMI. Cardiovascular: Irregularly irregular rhythm. Resp: Normal work of breathing. ++simple face mask Abdomen: Abdomen is soft, nondistended. Nontender Skin: Intact. No abrasions, laceration or rash over the exposed skin MSK: Normal tone and bulk. Moving all extremities. Neuro: Awake and alert. Mentating appropriately. Hawk Ma MD Nov 16, 2020 06:59
--- NOTE | 2020-11-16 07:10 | NUR ---
NURSE NOTES: Report received from Katy gasca RN.Pt asleep but easily awakens with physical stimuli,on Bipap during the night ,ordered settings tolerated,no signs of pain or discomfort Afib on the monitor,GT feeding Glucerna 1.5 at 40 ml/hr ,off at this time due to Synthroid medic,Green cath with very minimal urine output,Rectal tube in placed, skin warm and dry,IV site to LC TLC intact, SR up x2,HOB elevated ,bed lock in lowest position,will continue with plans of care.
--- NOTE | 2020-11-16 08:11 | General Progress Note ---
Subjective ROS Limited/Unobtainable: No Allergies: Coded Allergies: No Known Allergies (Unverified , 10/17/20) Subjective intubated now Objective Last 24 Hour Vital Signs Date Time Temp Pulse Resp B/P (MAP) Pulse Ox O2 Delivery O2 Flow Rate FiO2 11/16/20 08:04 98.6 95 23 151/73 (99) 94 11/16/20 07:00 91 23 130/57 (81) 96 11/16/20 06:00 85 26 119/65 (83) 96 11/16/20 05:30 80 25 100 30 11/16/20 05:00 87 23 106/53 (70) 100 11/16/20 04:00 Bi-pap Bi-pap 11/16/20 04:00 86 11/16/20 04:00 97.4 85 26 108/50 (69) 100 11/16/20 04:00 40 11/16/20 03:31 85 25 100 40 11/16/20 03:00 85 23 108/48 (68) 100 11/16/20 02:00 83 26 116/49 (71) 99 11/16/20 01:30 77 26 100 40 11/16/20 01:00 87 26 106/44 (64) 100 11/16/20 00:00 40 11/16/20 00:00 76 11/16/20 00:00 98.6 84 24 113/45 (67) 100 11/16/20 00:00 Bi-pap Bi-pap 11/15/20 23:30 82 26 99 40 11/15/20 23:00 76 26 104/51 (68) 99 11/15/20 22:00 84 24 136/70 (92) 100 11/15/20 21:38 89 25 100 40 11/15/20 21:00 74 25 97/46 (63) 98 11/15/20 20:00 40 11/15/20 20:00 Bi-pap Bi-pap 11/15/20 20:00 85 11/15/20 20:00 96.1 109 27 92/41 (58) 97 11/15/20 19:57 116 23 97 40 11/15/20 19:00 118 30 104/52 (69) 96 11/15/20 18:00 118 27 122/66 (84) 93 11/15/20 17:58 95 Venturi Mask 14.0 55 11/15/20 17:00 120 31 124/63 (83) 90 11/15/20 16:01 Venturi Mask 35.0 Venturi Mask 11/15/20 16:00 98.8 120 31 114/57 (76) 91 11/15/20 16:00 6.0 35 11/15/20 16:00 118 11/15/20 15:45 92 20 94 Venturi Mask 6.0 35 11/15/20 15:00 120 34 119/60 (79) 91 11/15/20 14:00 119 33 115/59 (77) 92 11/15/20 13:00 119 29 116/63 (80) 93 11/15/20 12:01 Venturi Mask 35.0 Venturi Mask 11/15/20 12:00 97.9 120 28 118/61 (80) 93 11/15/20 12:00 6.0 35 11/15/20 11:00 121 37 133/71 (91) 94 11/15/20 10:00 120 31 138/72 (94) 95 11/15/20 09:34 120 11/15/20 09:00 120 27 121/58 (79) 94 Intake and Output 11/15/20 11/16/20 19:00 07:00 Intake Total 900 ml 400 ml Output Total 450 ml 385 ml Balance 450 ml 15 ml Free Water 300 ml Tube Feeding 480 ml 400 ml Other 120 ml Output Urine Total 350 ml 235 ml Stool Total 100 ml 150 ml Laboratory Tests 11/15/20 12:25: POC Whole Blood Glucose 110H 11/15/20 17:37: POC Whole Blood Glucose 121H 11/16/20 00:27: POC Whole Blood Glucose 105 11/16/20 06:09: POC Whole Blood Glucose 112H Height (Feet): 5 Height (Inches): 0.00 Weight (Pounds): 145 General Appearance: no apparent distress EENT: normal ENT inspection Neck: supple Cardiovascular: normal rate Respiratory/Chest: decreased breath sounds Abdomen: normal bowel sounds, non tender, soft Extremities: non-tender Assessment/Plan Problem List: (1) Hypothyroidism ICD Codes: E03.9 - Hypothyroidism, unspecified SNOMED: 57473304 (2) Pneumonia due to COVID-19 virus ICD Codes: U07.1 - COVID-19; J12.82 - Pneumonia due to coronavirus disease 2019 SNOMED: 598233391380922750 (3) Malnutrition ICD Codes: E46 - Unspecified protein-calorie malnutrition SNOMED: 08638373 (4) Decubitus skin ulcer ICD Codes: L89.90 - Pressure ulcer of unspecified site, unspecified stage SNOMED: 996853009 (5) Elevated troponin ICD Codes: R77.8 - Other specified abnormalities of plasma proteins SNOMED: 755003895, 416913989, 895495195 (6) Atrial fibrillation ICD Codes: I48.91 - Unspecified atrial fibrillation SNOMED: 38199840 (7) Anemia ICD Codes: D64.9 - Anemia, unspecified SNOMED: 061262126 Status: progressing, unchanged Assessment/Plan: GTF fu cardiology fu pulm labs for AM on BIPAP monitor for residuals Skyler Tobar MD Nov 16, 2020 08:11
[2020-11-16] MEDS: Eliquis 2.5mg tablet GT SCH ×2 (08:45→17:34)
[2020-11-16] MEDS: Digoxin 0.125mg tab GT SCH (08:45)
[2020-11-16] MEDS: Pantoprazole Inj IVP SCH ×2 (08:45→20:52)
[2020-11-16] MEDS: Vitamin D 1000 units Tab GT SCH (08:45)
--- NOTE | 2020-11-16 09:00 | Cardiac Electrophysiology PN ---
Assessment/Plan Assessment/Plan 1. NSTEMI with elevated troponin of more than 0.2 and hx of prior [place] The level has come down to 0.19, but the levels are flat and likely due to renal failure as the creatinine is 2.1. On aspirin and off Lopressor as hypotensive 2. Atrial fibrillation with rapid ventricular response. Off Lopressor for low BP On Dig 0.125 PEG daily and Eliquis 2.5 bid. Dig level was 1.7 on 11/07 Repeat Dig level 3. Respiratory failure , Extubated 11/06/20. On Diamox and FaseMask 4. S/P Septic shock, off Levophed 5. Renal insufficiency. BUN 52/ Cr 1.3. On Diamox 6. Status post COVID pneumonia, was tested positive more than two weeks ago. Now is Covid negative 7. Dysphagia, S/P PEG 10/23/20 8. Full code. 9. Anemia, getting 2 units of PRBC DW Dr. Gómez Subjective Subjective In ICU off pressors. Covid negative 10/25 and is off isolation In atrial fib rate around 100. Dig level was 1.7 Extubated 11/06/20. Back on BIPAP again Objective Last 24 Hour Vital Signs Date Time Temp Pulse Resp B/P (MAP) Pulse Ox O2 Delivery O2 Flow Rate FiO2 11/16/20 08:45 95 11/16/20 08:04 98.6 95 23 151/73 (99) 94 11/16/20 08:00 Venturi Mask 14.0 Venturi Mask 14.0 11/16/20 08:00 6.0 35 11/16/20 08:00 100 11/16/20 07:00 91 23 130/57 (81) 96 11/16/20 06:00 85 26 119/65 (83) 96 11/16/20 05:30 80 25 100 30 11/16/20 05:00 87 23 106/53 (70) 100 11/16/20 04:00 Bi-pap Bi-pap 11/16/20 04:00 86 11/16/20 04:00 97.4 85 26 108/50 (69) 100 11/16/20 04:00 40 11/16/20 03:31 85 25 100 40 11/16/20 03:00 85 23 108/48 (68) 100 11/16/20 02:00 83 26 116/49 (71) 99 11/16/20 01:30 77 26 100 40 11/16/20 01:00 87 26 106/44 (64) 100 11/16/20 00:00 40 11/16/20 00:00 76 11/16/20 00:00 98.6 84 24 113/45 (67) 100 11/16/20 00:00 Bi-pap Bi-pap 11/15/20 23:30 82 26 99 40 11/15/20 23:00 76 26 104/51 (68) 99 11/15/20 22:00 84 24 136/70 (92) 100 11/15/20 21:38 89 25 100 40 11/15/20 21:00 74 25 97/46 (63) 98 11/15/20 20:00 40 11/15/20 20:00 Bi-pap Bi-pap 11/15/20 20:00 85 11/15/20 20:00 96.1 109 27 92/41 (58) 97 11/15/20 19:57 116 23 97 40 11/15/20 19:00 118 30 104/52 (69) 96 11/15/20 18:00 118 27 122/66 (84) 93 11/15/20 17:58 95 Venturi Mask 14.0 55 11/15/20 17:00 120 31 124/63 (83) 90 11/15/20 16:01 Venturi Mask 35.0 Venturi Mask 11/15/20 16:00 98.8 120 31 114/57 (76) 91 11/15/20 16:00 6.0 35 11/15/20 16:00 118 11/15/20 15:45 92 20 94 Venturi Mask 6.0 35 11/15/20 15:00 120 34 119/60 (79) 91 11/15/20 14:00 119 33 115/59 (77) 92 11/15/20 13:00 119 29 116/63 (80) 93 11/15/20 12:01 Venturi Mask 35.0 Venturi Mask 11/15/20 12:00 97.9 120 28 118/61 (80) 93 11/15/20 12:00 6.0 35 11/15/20 11:00 121 37 133/71 (91) 94 11/15/20 10:00 120 31 138/72 (94) 95 11/15/20 09:34 120 11/15/20 09:00 120 27 121/58 (79) 94 Intake and Output 11/15/20 11/16/20 19:00 07:00 Intake Total 900 ml 400 ml Output Total 450 ml 385 ml Balance 450 ml 15 ml Free Water 300 ml Tube Feeding 480 ml 400 ml Other 120 ml Output Urine Total 350 ml 235 ml Stool Total 100 ml 150 ml Laboratory Tests Test 11/15/20 12:25 11/15/20 17:37 11/16/20 00:27 11/16/20 06:09 POC Whole Blood Glucose 110 MG/DL (74-106) H 121 MG/DL (74-106) H 105 MG/DL (74-106) 112 MG/DL (74-106) H Objective HEAD AND NECK: No JVD. LUNGS: Decreased breath sounds. CARDIOVASCULAR: Irregular S1 and S2 with no gallop. ABDOMEN: Soft.S/P PEG EXTREMITIES: No pitting edema. Terry Reyes MD Nov 16, 2020 09:00
--- NOTE | 2020-11-16 09:02 | Cardiac Electrophysiology PN ---
Assessment/Plan Assessment/Plan 1. NSTEMI with elevated troponin of more than 0.2 and hx of prior [place] The level has come down to 0.19, but the levels are flat and likely due to renal failure as the creatinine is 2.1. On aspirin and off Lopressor as hypotensive 2. Atrial fibrillation with rapid ventricular response. Off Lopressor for low BP On Dig 0.125 PEG daily and Eliquis 2.5 bid. Dig level was 1.7 on 11/07 Repeat Dig level 3. Respiratory failure , Extubated 11/06/20. On Diamox and FaseMask 4. S/P Septic shock, off Levophed 5. Hypernatremia and Azotemia start D5, 1/2 NS at 60 cc/ hr On Diamox 6. Status post COVID pneumonia, was tested positive more than two weeks ago. Now is Covid negative 7. Dysphagia, S/P PEG 10/23/20 8. Full code. 9. Anemia, getting [address] Dr[address] Gómez Subjective Subjective In ICU off pressors. Covid negative 10/25 and is off isolation In atrial fib rate around 100. Dig level was 1.7 Extubated 11/06/20. Back on BIPAP again Objective Last 24 Hour Vital Signs Date Time Temp Pulse Resp B/P (MAP) Pulse Ox O2 Delivery O2 Flow Rate FiO2 11/16/20 08:45 95 11/16/20 08:04 98.6 95 23 151/73 (99) 94 11/16/20 08:00 Venturi Mask 14.0 Venturi Mask 14.0 11/16/20 08:00 6.0 35 11/16/20 08:00 100 11/16/20 07:00 91 23 130/57 (81) 96 11/16/20 06:00 85 26 119/65 (83) 96 11/16/20 05:30 80 25 100 30 11/16/20 05:00 87 23 106/53 (70) 100 11/16/20 04:00 Bi-pap Bi-pap 11/16/20 04:00 86 11/16/20 04:00 97.4 85 26 108/50 (69) 100 11/16/20 04:00 40 11/16/20 03:31 85 25 100 40 11/16/20 03:00 85 23 108/48 (68) 100 11/16/20 02:00 83 26 116/49 (71) 99 11/16/20 01:30 77 26 100 40 11/16/20 01:00 87 26 106/44 (64) 100 11/16/20 00:00 40 11/16/20 00:00 76 11/16/20 00:00 98.6 84 24 113/45 (67) 100 11/16/20 00:00 Bi-pap Bi-pap 11/15/20 23:30 82 26 99 40 11/15/20 23:00 76 26 104/51 (68) 99 11/15/20 22:00 84 24 136/70 (92) 100 11/15/20 21:38 89 25 100 40 11/15/20 21:00 74 25 97/46 (63) 98 11/15/20 20:00 40 11/15/20 20:00 Bi-pap Bi-pap 11/15/20 20:00 85 11/15/20 20:00 96.1 109 27 92/41 (58) 97 11/15/20 19:57 116 23 97 40 11/15/20 19:00 118 30 104/52 (69) 96 11/15/20 18:00 118 27 122/66 (84) 93 11/15/20 17:58 95 Venturi Mask 14.0 55 11/15/20 17:00 120 31 124/63 (83) 90 11/15/20 16:01 Venturi Mask 35.0 Venturi Mask 11/15/20 16:00 98.8 120 31 114/57 (76) 91 11/15/20 16:00 6.0 35 11/15/20 16:00 118 11/15/20 15:45 92 20 94 Venturi Mask 6.0 35 11/15/20 15:00 120 34 119/60 (79) 91 11/15/20 14:00 119 33 115/59 (77) 92 11/15/20 13:00 119 29 116/63 (80) 93 11/15/20 12:01 Venturi Mask 35.0 Venturi Mask 11/15/20 12:00 97.9 120 28 118/61 (80) 93 11/15/20 12:00 6.0 35 11/15/20 11:00 121 37 133/71 (91) 94 11/15/20 10:00 120 31 138/72 (94) 95 11/15/20 09:34 120 Intake and Output 11/15/20 11/16/20 19:00 07:00 Intake Total 900 ml 400 ml Output Total 450 ml 385 ml Balance 450 ml 15 ml Free Water 300 ml Tube Feeding 480 ml 400 ml Other 120 ml Output Urine Total 350 ml 235 ml Stool Total 100 ml 150 ml Laboratory Tests Test 11/15/20 12:25 11/15/20 17:37 11/16/20 00:27 11/16/20 06:09 POC Whole Blood Glucose 110 MG/DL (74-106) H 121 MG/DL (74-106) H 105 MG/DL (74-106) 112 MG/DL (74-106) H Objective HEAD AND NECK: No JVD. LUNGS: Decreased breath sounds. CARDIOVASCULAR: Irregular S1 and S2 with no gallop. ABDOMEN: Soft.S/P PEG EXTREMITIES: No pitting edema. Terry Reyes MD Nov 16, 2020 09:02
--- NOTE | 2020-11-16 09:30 | NUR ---
NURSE NOTES: Dr Reyes at bedside,ordered for Dig level and IV D5 1/2 NS at 60 ml/hr,order done and carried out.
--- NOTE | 2020-11-16 10:00 | NUR ---
NURSE NOTES: Dr ybarra at bedside,informed re pt's no urine output,ordered for labs.
[2020-11-16] MEDS: D5 1/2NS 1,000 ML IV SCH ×2 (11:00→20:52)
[2020-11-16 11:22] LABS: CALCIUM 8.5 MG/DL (8.5-10.1); CREATININE 1.2 MG/DL (0.55-1.30); POTASSIUM 5.2 MMOL/L (3.5-5.1)
[2020-11-16 11:23] LABS: PHOSPHORUS 4.2 MG/DL (2.5-4.9)
--- NOTE | 2020-11-16 11:45 | NUR ---
NURSE NOTES: Called Dr Reyes re results of Digoxin level,call returned with orders to hold Digoxin for 2 days.
--- NOTE | 2020-11-16 11:50 | Nephrology Progress Note ---
Assessment/Plan Problem List: (1) Acute kidney injury (2) Anemia (3) Hyperkalemia (4) Elevated troponin (5) Pneumonia due to COVID-19 virus (6) Hypothyroidism Assessment Plan November 16: Seen in ICU. Discussed with SERGIO Avilez. Urine output down. Labs reviewed. Digoxin level elevated. Potassium 5.2. Will discontinue digoxin. Will increase IV fluid. Will check electrolytes, renal parameters and digoxin level in a.m. Continue per pulmonary. Bladder scan to check for possible retention. November 15: Seen in ICU discussed with RN. Alternate BiPAP with Venturi mask. Renal parameters stable. Serum sodium lower. Continue per consultants. November 14: Seen in ICU. Remains on BiPAP. Labs reviewed. Hemoglobin remains low. 2 units of transfusion ordered. 1 L of D5W for elevated serum sodium. Continue to monitor renal parameters and electrolytes. Continue per consultants. November 13: Discussed with SERGIO Wilkerson. Remains on BiPAP. ABG reviewed. Labs reviewed. 1 L D5W for rising serum sodium given. Continue per pulmonary. November 12: Discussed with RN. On BiPAP. ABG labs and medication list reviewed. Patient full code. Continue per pulmonary. November 11: Remains on BiPAP. Labs reviewed. Serum sodium lower. Potassium stable. Continue per consultants. November 10: On BiPAP. ABG reviewed. On Diamox. Serum sodium rising. 1 L D5W given. Continue to monitor renal parameters. Low vitamin D level of 13 addressed. November 09: Patient getting started on BiPAP. Is retaining CO2. Discussed with . We will start Diamox. Continue to monitor renal parameters. November 08: On oxygen mask. Labs reviewed. Patient full code. Continues to be extubated. Continue pulmonary toilet. Monitor renal parameters. Discussed with RN. Serum creatinine 1.6 at its lowest. November 07: Patient remains on nasal cannula. Full code. Labs reviewed. Low magnesium addressed. Discussed with SERGIO Wilkerson. Continue present care. November 06: Patient is now extubated. Labs reviewed. Medication list reviewed. Serum creatinine stable. Continue post extubation care. November 05: Mental status improved. Labs and medication list reviewed. Serum creatinine 2.2. Weaning trial in process. Continue per consultants. November 04: Full code. Intubated. Labs reviewed. Low potassium addressed. Serum creatinine stable 2.3. Continue per consultants. Weaning as possible. November 03: Remains full code. Remains intubated. FiO2 30%. Discussed with RN. Low potassium addressed. Patient remains on Lasix. Continue to monitor renal parameters. Serum creatinine slightly rising. November 02: Patient remains intubated on ventilator. FiO2 30%. Labs reviewed. Low potassium addressed. Medication list reviewed. Patient on Lasix 40 mg ev latisha 8 hours. Serum creatinine higher to 2.3. Feeding changed to Nepro. Potassium supplement given. Continue to monitor renal parameters. November 01: Seen in ICU. Now intubated on ventilator. Discussed with RN. Labs results noted. Abnormal electrolytes addressed. Discussed with RN. Continue per consultants. October 31: Patient seen in ICU. Discussed with SERGIO Miller. ABG noted. Patient acidotic. Being transfused. Potassium is being replaced. Due for another ABG and possible intubation if needed. Conferred with pulmonary and cardiology. October 30: Labs reviewed. Potassium elevated. Kayexalate ordered. Continue to monitor hemoglobin hematocrit and renal parameters. Serum creatinine 2.1. Remains on BiPAP. October 29: Seen in ICU. Discussed with SERGIO Wilkerson. Hemoglobin low. Transfuse 1 unit of packed RBCs. Potassium supplements IV given. Midodrine discontinued. Serum creatinine 2.2 stable. Patient remains on BiPAP. Continue per consultants. Continue to monitor hemoglobin hematocrit electrolytes and renal parameters. October 28: Seen in ICU. Remains on BiPAP. Low potassium and low magnesium addressed. Serum creatinine plateaued at 2.2. Continue per current treatment plan. October 27: Patient in ICU. On BiPAP. Serum creatinine rising. Blood pressure m ore stable. Will give 100 mg Lasix IV push with the hope of reversing oliguria. Medication list reviewed. Continue to monitor renal parameters. October 26: Seen in ICU. On pressors for low blood pressure. Serum creatinine 2.1. Albumin bolus given. Stress dose of steroids initiated. Continue to monitor renal parameters. Continue per consultants. October 25: Patient seen and examined. Trendelenburg. Blood pressure low. Tachycardic. Discussed with RN. Patient to be transferred to ICU. Discussed w ith ICU charge nurse and hospital charge nurse. Meanwhile patient started on Albumin bolus and 100 cc an hour D5 normal saline. Patient to be started on pressors while in ICU. Patient full code. October 24: No CHEM panel drawn today.. Renal parameters stable. Patient had a GT placed yesterday. Will check labs tomorrow. Medication list reviewed. October 23: Labs reviewed. Renal parameters unchanged. Creatinine 1.9. Continue current management. Medication list reviewed. October 22: Labs reviewed. Serum creatinine lower at 1.8. Patient started on clear liquid. Patient refuses p.o. medications and food at times. Continue per consultants. October 21: Labs reviewed. Serum creatinine unchanged. Continue per consultants. Continue to monitor renal parameters. October 20: Today's labs reviewed. Serum creatinine unchanged. RN reports patient not taking any p.o. meds. Continue per consultants. Serum creatinine appears to be baseline. October 19: Today's labs still not done yet. RN informed. Albumin bolus given again. Continue to monitor electrolytes and renal parameters. Per orders October 18: Patient hypotensive. Due for blood transfusion. Will give albumin bolus. Continue to monitor renal parameters and electrolytes. Labs and medica tion list reviewed Subjective ROS Limited/Unobtainable: Yes Objective Objective Last 24 Hour Vital Signs Date Time Temp Pulse Resp B/P (MAP) Pulse Ox O2 Delivery O2 Flow Rate FiO2 11/16/20 11:00 91 31 147/65 (92) 97 11/16/20 10:00 92 30 132/80 (97) 97 11/16/20 09:00 94 30 139/72 (94) 97 11/16/20 08:45 95 11/16/20 08:04 98.6 95 23 151/73 (99) 94 11/16/20 08:00 Venturi Mask 14.0 Venturi Mask 14.0 11/16/20 08:00 6.0 35 11/16/20 08:00 100 11/16/20 07:00 91 23 130/57 (81) 96 11/16/20 06:00 85 26 119/65 (83) 96 11/16/20 05:30 80 25 100 30 11/16/20 05:00 87 23 106/53 (70) 100 11/16/20 04:00 Bi-pap Bi-pap 11/16/20 04:00 86 11/16/20 04:00 97.4 85 26 108/50 (69) 100 11/16/20 04:00 40 11/16/20 03:31 85 25 100 40 11/16/20 03:00 85 23 108/48 (68) 100 11/16/20 02:00 83 26 116/49 (71) 99 11/16/20 01:30 77 26 100 40 11/16/20 01:00 87 26 106/44 (64) 100 11/16/20 00:00 40 11/16/20 00:00 76 11/16/20 00:00 98.6 84 24 113/45 (67) 100 11/16/20 00:00 Bi-pap Bi-pap 11/15/20 23:30 82 26 99 40 11/15/20 23:00 76 26 104/51 (68) 99 11/15/20 22:00 84 24 136/70 (92) 100 11/15/20 21:38 89 25 100 40 11/15/20 21:00 74 25 97/46 (63) 98 11/15/20 20:00 40 11/15/20 20:00 Bi-pap Bi-pap 11/15/20 20:00 85 11/15/20 20:00 96.1 109 27 92/41 (58) 97 11/15/20 19:57 116 23 97 40 11/15/20 19:00 118 30 104/52 (69) 96 11/15/20 18:00 118 27 122/66 (84) 93 11/15/20 17:58 95 Venturi Mask 14.0 55 11/15/20 17:00 120 31 124/63 (83) 90 11/15/20 16:01 Venturi Mask 35.0 Venturi Mask 11/15/20 16:00 98.8 120 31 114/57 (76) 91 11/15/20 16:00 6.0 35 11/15/20 16:00 118 11/15/20 15:45 92 20 94 Venturi Mask 6.0 35 11/15/20 15:00 120 34 119/60 (79) 91 11/15/20 14:00 119 33 115/59 (77) 92 11/15/20 13:00 119 29 116/63 (80) 93 11/15/20 12:01 Venturi Mask 35.0 Venturi Mask 11/15/20 12:00 97.9 120 28 118/61 (80) 93 11/15/20 12:00 6.0 35 Intake and Output 11/15/20 11/16/20 19:00 07:00 Intake Total 900 ml 400 ml Output Total 450 ml 385 ml Balance 450 ml 15 ml Free Water 300 ml Tube Feeding 480 ml 400 ml Other 120 ml Output Urine Total 350 ml 235 ml Stool Total 100 ml 150 ml Current Medications Medications (Trade) Dose Ordered Sig/Yolanda Route PRN Reason Start Time Stop Time Status Last Admin Dose Admin Acetaminophen (Tylenol) 650 mg Q6H PRN GT Mild Pain (Pain Scale 1-3) 11/04/20 10:45 12/04/20 10:44 11/04/20 18:20 Acetaminophen (Tylenol) 650 mg Q6H PRN GT Temp >100.5 11/04/20 10:45 12/04/20 10:44 Apixaban (Eliquis) 2.5 mg BID GT 11/12/20 18:00 01/22/21 17:59 11/16/20 08:45 Chlorhexidine Gluconate (Eve-Hex 2%) 1 applic DAILY@2000 TOPIC 10/22/20 20:00 01/20/21 19:59 11/15/20 20:23 Dextrose/Sodium Chloride 1,000 ml @ 60 mls/hr [id number] IV 11/16/20 10:15 12/16/20 10:14 11/16/20 11:00 Digoxin (Lanoxin) 0.125 mg DAILY GT 10/30/20 09:00 01/28/21 08:59 11/16/20 08:45 Haloperidol Lactate 5 mg/ Dextrose 56 ml @ 224 mls/hr Q6H PRN IVPB Agitation 11/04/20 20:30 12/19/20 20:29 11/14/20 01:26 Levothyroxine Sodium (Synthroid) 50 mcg DAILY@0630 ORAL 10/19/20 06:30 11/18/20 06:29 11/16/20 06:24 Ondansetron HCl (Zofran) 4 mg Q6H PRN IVP Nausea & Vomiting 10/17/20 21:15 11/16/20 21:14 Pantoprazole (Protonix) 40 mg Q12HR IVP 11/02/20 21:00 11/25/20 20:59 11/16/20 08:45 Vitamin D (Vitamin D) 3,000 unit DAILY GT 11/12/20 09:00 12/12/20 08:59 11/16/20 08:45 Laboratory Tests 11/15/20 12:25: POC Whole Blood Glucose 110H 11/15/20 17:37: POC Whole Blood Glucose 121H 11/16/20 00:27: POC Whole Blood Glucose 105 11/16/20 06:09: POC Whole Blood Glucose 112H 11/16/20 09:25: Sodium Level 147H, Potassium Level 5.2H, Chloride Level 106, Carbon Dioxide Level 38H, Anion Gap 3L, Blood Urea Nitrogen 56H, Creatinine 1.2, Estimat Glomerular Filtration Rate 42.9, Glucose Level 112H, Calcium Level 8.5, Phosphorus Level 4.2, Magnesium Level 2.1, Digoxin Level 2.4H 11/16/20 11:30: White Blood Count [Pending], Red Blood Count [Pending], Hemoglobin [Pending], Hematocrit [Pending], Mean Corpuscular Volume [Pending], Mean Corpuscular Hemoglobin [Pending], Mean Corpuscular Hemoglobin Concent [Pending], Red Cell Distribution Width [Pending], Platelet Count [Pending], Mean Platelet Volume [Pending], Neutrophils (%) (Auto) [Pending], Lymphocytes (%) (Auto) [Pending], Monocytes (%) (Auto) [Pending], Eosinophils (%) (Auto) [Pending], Basophils (%) (Auto) [Pending] Height (Feet): 5 Height (Inches): 0.00 Weight (Pounds): 145 General Appearance: mild distress EENT: other - On Venturi mask Cardiovascular: tachycardia Respiratory/Chest: decreased breath sounds Abdomen: distended Dustin Gómez MD Nov 16, 2020 11:50
--- NOTE | 2020-11-16 12:00 | NUR ---
NURSE NOTES: Post void residual done per order of Dr Gómez,0 ml,will inform Dr Gómez.
[2020-11-16 12:04] LABS: BASOPHILS % (AUTO) 0.4 % (0.0-2.0); EOSINOPHILS % (AUTO) 1.1 % (0.0-3.0); HEMATOCRIT 33.2 % (37.0-47.0); HEMOGLOBIN 10.2 G/DL (12.0-16.0); LYMPHOCYTES % (AUTO) 14.6 % (20.0-45.0); MEAN CORPUSCULAR VOLUME 96 FL (80-99); MONOCYTES % (AUTO) 7.3 % (1.0-10.0); NEUTROPHILS % (AUTO) 76.7 % (45.0-75.0); PLATELET COUNT 155 K/UL (150-450); RED BLOOD COUNT 3.47 M/UL (4.20-5.40); RED CELL DISTRIBUTION WIDTH 17.8 % (11.6-14.8); WHITE BLOOD COUNT 6.2 K/UL (4.8-10.8)
--- NOTE | 2020-11-16 12:28 | Infectious Diseases Prog Note ---
Assessment/Plan Assessment/Plan IMPRESSION: Pneumonia with Pseudomonas treated Hypercapnic, hypoxic respiratory failure Recent history of COVID disease, Acute renal failure, Aortic stenosis Atrial fibrillation, hypothyroidism, Anemia. Chronic DVT of R leg Hypotension Gastrostomy status Respiratory acidosis Left pleural effusion s/p thoracentesis RECOMMENDATION: Observe off antibiotic Subjective ROS Limited/Unobtainable: Yes Constitutional: Denies: fever Neurologic: Reports: other - restrained by mittens Allergies: Coded Allergies: No Known Allergies (Unverified , 10/17/20) Objective Last 24 Hour Vital Signs Date Time Temp Pulse Resp B/P (MAP) Pulse Ox O2 Delivery O2 Flow Rate FiO2 11/16/20 11:00 91 31 147/65 (92) 97 11/16/20 10:00 92 30 132/80 (97) 97 11/16/20 09:00 94 30 139/72 (94) 97 11/16/20 08:45 95 11/16/20 08:04 98.6 95 23 151/73 (99) 94 11/16/20 08:00 Venturi Mask 14.0 Venturi Mask 14.0 11/16/20 08:00 6.0 35 11/16/20 08:00 100 11/16/20 07:00 91 23 130/57 (81) 96 11/16/20 06:00 85 26 119/65 (83) 96 11/16/20 05:30 80 25 100 30 11/16/20 05:00 87 23 106/53 (70) 100 11/16/20 04:00 Bi-pap Bi-pap 11/16/20 04:00 86 11/16/20 04:00 97.4 85 26 108/50 (69) 100 11/16/20 04:00 40 11/16/20 03:31 85 25 100 40 11/16/20 03:00 85 23 108/48 (68) 100 11/16/20 02:00 83 26 116/49 (71) 99 11/16/20 01:30 77 26 100 40 11/16/20 01:00 87 26 106/44 (64) 100 11/16/20 00:00 40 11/16/20 00:00 76 11/16/20 00:00 98.6 84 24 113/45 (67) 100 11/16/20 00:00 Bi-pap Bi-pap 11/15/20 23:30 82 26 99 40 11/15/20 23:00 76 26 104/51 (68) 99 11/15/20 22:00 84 24 136/70 (92) 100 11/15/20 21:38 89 25 100 40 11/15/20 21:00 74 25 97/46 (63) 98 11/15/20 20:00 40 11/15/20 20:00 Bi-pap Bi-pap 11/15/20 20:00 85 11/15/20 20:00 96.1 109 27 92/41 (58) 97 11/15/20 19:57 116 23 97 40 11/15/20 19:00 118 30 104/52 (69) 96 11/15/20 18:00 118 27 122/66 (84) 93 11/15/20 17:58 95 Venturi Mask 14.0 55 11/15/20 17:00 120 31 124/63 (83) 90 11/15/20 16:01 Venturi Mask 35.0 Venturi Mask 11/15/20 16:00 98.8 120 31 114/57 (76) 91 11/15/20 16:00 6.0 35 11/15/20 16:00 118 11/15/20 15:45 92 20 94 Venturi Mask 6.0 35 11/15/20 15:00 120 34 119/60 (79) 91 11/15/20 14:00 119 33 115/59 (77) 92 11/15/20 13:00 119 29 116/63 (80) 93 Height (Feet): 5 Height (Inches): 0.00 Weight (Pounds): 145 HEENT: mucous membranes moist Respiratory/Chest: lungs clear, other - O2 by mask Cardiovascular: normal rate, other - left subclavian central line Abdomen: soft, non tender, other - GT feeding Extremities: other - decreased edema Laboratory Tests Test 11/15/20 17:37 11/16/20 00:27 11/16/20 06:09 11/16/20 09:25 POC Whole Blood Glucose 121 MG/DL (74-106) H 105 MG/DL (74-106) 112 MG/DL (74-106) H Sodium Level 147 MMOL/L (136-145) H Potassium Level 5.2 MMOL/L (3.5-5.1) H Chloride Level 106 MMOL/L (98-107) Carbon Dioxide Level 38 MMOL/L (21-32) H Anion Gap 3 mmol/L (5-15) L Blood Urea Nitrogen 56 mg/dL (7-18) H Creatinine 1.2 MG/DL (0.55-1.30) Estimat Glomerular Filtration Rate 42.9 mL/min (>60) Glucose Level 112 MG/DL (74-106) H Calcium Level 8.5 MG/DL (8.5-10.1) Phosphorus Level 4.2 MG/DL (2.5-4.9) Magnesium Level 2.1 MG/DL (1.8-2.4) Digoxin Level 2.4 NG/ML (0.9-2.0) H Test 11/16/20 11:30 11/16/20 12:16 White Blood Count 6.2 K/UL (4.8-10.8) Red Blood Count 3.47 M/UL (4.20-5.40) L Hemoglobin 10.2 G/DL (12.0-16.0) L Hematocrit 33.2 % (37.0-47.0) L Mean Corpuscular Volume 96 FL (80-99) Mean Corpuscular Hemoglobin 29.5 PG (27.0-31.0) Mean Corpuscular Hemoglobin Concent 30.9 G/DL (32.0-36.0) L Red Cell Distribution Width 17.8 % (11.6-14.8) H Platelet Count 155 K/UL (150-450) Mean Platelet Volume 9.6 FL (6.5-10.1) Neutrophils (%) (Auto) 76.7 % (45.0-75.0) H Lymphocytes (%) (Auto) 14.6 % (20.0-45.0) L Monocytes (%) (Auto) 7.3 % (1.0-10.0) Eosinophils (%) (Auto) 1.1 % (0.0-3.0) Basophils (%) (Auto) 0.4 % (0.0-2.0) POC Whole Blood Glucose 110 MG/DL (74-106) H Current Medications Medications (Trade) Dose Ordered Sig/Yolanda Route PRN Reason Start Time Stop Time Status Last Admin Dose Admin Acetaminophen (Tylenol) 650 mg Q6H PRN GT Mild Pain (Pain Scale 1-3) 11/04/20 10:45 12/04/20 10:44 11/04/20 18:20 Acetaminophen (Tylenol) 650 mg Q6H PRN GT Temp >100.5 11/04/20 10:45 12/04/20 10:44 Apixaban (Eliquis) 2.5 mg BID GT 11/12/20 18:00 01/22/21 17:59 11/16/20 08:45 Chlorhexidine Gluconate (Eve-Hex 2%) 1 applic DAILY@2000 TOPIC 10/22/20 20:00 01/20/21 19:59 11/15/20 20:23 Dextrose/Sodium Chloride 1,000 ml @ 100 mls/hr Q10H IV 11/16/20 10:15 12/16/20 10:14 11/16/20 11:00 Haloperidol Lactate 5 mg/ Dextrose 56 ml @ 224 mls/hr Q6H PRN IVPB Agitation 11/04/20 20:30 12/19/20 20:29 11/14/20 01:26 Levothyroxine Sodium (Synthroid) 50 mcg DAILY@0630 ORAL 10/19/20 06:30 11/18/20 06:29 11/16/20 06:24 Ondansetron HCl (Zofran) 4 mg Q6H PRN IVP Nausea & Vomiting 10/17/20 21:15 11/16/20 21:14 Pantoprazole (Protonix) 40 mg Q12HR IVP 11/02/20 21:00 11/25/20 20:59 11/16/20 08:45 Vitamin D (Vitamin D) 3,000 unit DAILY GT 11/12/20 09:00 12/12/20 08:59 11/16/20 08:45 Luis Alvarado MD Nov 16, 2020 12:28
--- NOTE | 2020-11-16 13:00 | NUR ---
NURSE NOTES: Called Dr Gómez re Post Void residual,left message on the answering machine.
--- NOTE | 2020-11-16 13:58 | NUR ---
VOCATIONAL REHABILITATION ADMINISTRATOR NOTES PT ACCEPTED AT [facility] ROOM 12 BED B. PENDING DC ORDER. MADE AWARE.
--- NOTE | 2020-11-16 15:27 | Surgery Progress Note ---
Surgery Progress Note Subjective Procedure Performed left subclavian central venous catheter insertion Additional Comments on face mask ill appearing per report plan discharge to [place] labs noted Objective Last 24 Hour Vital Signs Date Time Temp Pulse Resp B/P (MAP) Pulse Ox O2 Delivery O2 Flow Rate FiO2 11/16/20 14:00 91 31 137/55 (82) 94 11/16/20 13:01 91 31 137/55 (82) 94 11/16/20 12:00 92 11/16/20 12:00 6.0 35 11/16/20 12:00 Venturi Mask 14.0 Venturi Mask 14.0 11/16/20 12:00 98.0 79 23 138/56 (83) 96 11/16/20 11:00 91 31 147/65 (92) 97 11/16/20 10:00 92 30 132/80 (97) 97 11/16/20 09:00 94 30 139/72 (94) 97 11/16/20 08:45 95 11/16/20 08:04 98.6 95 23 151/73 (99) 94 11/16/20 08:00 Venturi Mask 14.0 Venturi Mask 14.0 11/16/20 08:00 6.0 35 11/16/20 08:00 100 11/16/20 07:00 91 23 130/57 (81) 96 11/16/20 06:00 85 26 119/65 (83) 96 11/16/20 05:30 80 25 100 30 11/16/20 05:00 87 23 106/53 (70) 100 11/16/20 04:00 Bi-pap Bi-pap 11/16/20 04:00 86 11/16/20 04:00 97.4 85 26 108/50 (69) 100 11/16/20 04:00 40 11/16/20 03:31 85 25 100 40 11/16/20 03:00 85 23 108/48 (68) 100 11/16/20 02:00 83 26 116/49 (71) 99 11/16/20 01:30 77 26 100 40 11/16/20 01:00 87 26 106/44 (64) 100 11/16/20 00:00 40 11/16/20 00:00 76 11/16/20 00:00 98.6 84 24 113/45 (67) 100 11/16/20 00:00 Bi-pap Bi-pap 11/15/20 23:30 82 26 99 40 11/15/20 23:00 76 26 104/51 (68) 99 11/15/20 22:00 84 24 136/70 (92) 100 11/15/20 21:38 89 25 100 40 11/15/20 21:00 74 25 97/46 (63) 98 11/15/20 20:00 40 11/15/20 20:00 Bi-pap Bi-pap 11/15/20 20:00 85 11/15/20 20:00 96.1 109 27 92/41 (58) 97 11/15/20 19:57 116 23 97 40 11/15/20 19:00 118 30 104/52 (69) 96 11/15/20 18:00 118 27 122/66 (84) 93 11/15/20 17:58 95 Venturi Mask 14.0 55 11/15/20 17:00 120 31 124/63 (83) 90 11/15/20 16:01 Venturi Mask 35.0 Venturi Mask 11/15/20 16:00 98.8 120 31 114/57 (76) 91 11/15/20 16:00 6.0 35 11/15/20 16:00 118 11/15/20 15:45 92 20 94 Venturi Mask 6.0 35 I&O Intake and Output 0 11/15/20 11/16/20 18:59 06:59 Intake Total 900 ml 440 ml Output Total 480 ml 375 ml Balance 420 ml 65 ml Free Water 300 ml Tube Feeding 480 ml 440 ml Other 120 ml Output Urine Total 380 ml 225 ml Stool Total 100 ml 150 ml Dressing: saturated Cardiovascular: RSR Respiratory: decreased breath sounds Abdomen: soft, non-tender, present bowel sounds, non-distended Extremities: no tenderness, no cyanosis Laboratory Tests Test 11/15/20 17:37 11/16/20 00:27 11/16/20 06:09 11/16/20 09:25 POC Whole Blood Glucose 121 MG/DL (74-106) H 105 MG/DL (74-106) 112 MG/DL (74-106) H Sodium Level 147 MMOL/L (136-145) H Potassium Level 5.2 MMOL/L (3.5-5.1) H Chloride Level 106 MMOL/L (98-107) Carbon Dioxide Level 38 MMOL/L (21-32) H Anion Gap 3 mmol/L (5-15) L Blood Urea Nitrogen 56 mg/dL (7-18) H Creatinine 1.2 MG/DL (0.55-1.30) Estimat Glomerular Filtration Rate 42.9 mL/min (>60) Glucose Level 112 MG/DL (74-106) H Calcium Level 8.5 MG/DL (8.5-10.1) Phosphorus Level 4.2 MG/DL (2.5-4.9) Magnesium Level 2.1 MG/DL (1.8-2.4) Digoxin Level 2.4 NG/ML (0.9-2.0) H Test 11/16/20 11:30 11/16/20 12:16 White Blood Count 6.2 K/UL (4.8-10.8) Red Blood Count 3.47 M/UL (4.20-5.40) L Hemoglobin 10.2 G/DL (12.0-16.0) L Hematocrit 33.2 % (37.0-47.0) L Mean Corpuscular Volume 96 FL (80-99) Mean Corpuscular Hemoglobin 29.5 PG (27.0-31.0) Mean Corpuscular Hemoglobin Concent 30.9 G/DL (32.0-36.0) L Red Cell Distribution Width 17.8 % (11.6-14.8) H Platelet Count 155 K/UL (150-450) Mean Platelet Volume 9.6 FL (6.5-10.1) Neutrophils (%) (Auto) 76.7 % (45.0-75.0) H Lymphocytes (%) (Auto) 14.6 % (20.0-45.0) L Monocytes (%) (Auto) 7.3 % (1.0-10.0) Eosinophils (%) (Auto) 1.1 % (0.0-3.0) Basophils (%) (Auto) 0.4 % (0.0-2.0) POC Whole Blood Glucose 110 MG/DL (74-106) H Plan Problems: (1) Anemia (2) Acute kidney injury (3) Atrial fibrillation (4) Hyperkalemia (5) Elevated troponin (6) Decubitus skin ulcer Assessment & Plan: Pt presented on admission with Multiple Medical Comorbidities including Covid-19 and Pressure Injuries. Primary Nurse reported Pt has been declining food and medications. Sacral DTPI that is evolving noted to Sacrum(L)6cm x (W)12.5cm.. Scattered Purpuric areas that are indurated noted to R and L cheek. Small wound that is 100% slough (L)0.6cm x (W)0.7cm noted at sacrococcygeal area within base of DTPI. MASD noted to Perineum and skin folds of Medial/posterior aspects of Both upper thighs. Affected areas are erythematous and macerated with scattered satellite lesions. DTPI L Heel (L)3cm x (W)4cm, Base of heel is maroon and fluctuant with small purpuric area (L)0.4cm x (W)0.9cm within base of DTPI. l Foot including toes are mottled and cool to touch. L Heel is boggy. L Heel including toes are Mottled and cool to touch. Tx.Plan: Apply Moisture Barrier Paste to Sacrum. Cover with Optifoam drsg.Change every 3 days and prn. Apply Moisture Barrier Paste to abdominal folds, Perineum and skin folds of both upper thighs. Apply Cavilon Skin Barrier to both heels. Cover each Heel with Optifoam drsg. Change every 7 days and prn. Reposition at least every 2hours or as tolerated. Off-load heels with pillow. (7) Malnutrition Assessment & Plan: She was able to self feed on right hand and took a bite of popsicle and tolerated without s.s of aspiration. After 1st bite, then she refused 2nd bite. After this was done, I offered her a cup of cranberry juice, she took few sips and tolerated without s.s of aspiration. I continued to offer but she refused further PO. A: 1. Functional swallow 2. Failure to thrive 3. abnormal electrolytes in setting of heart failure, NSTEMI, elevated BNP, etc.. P/Rec. 1. Pureed and thin liquid 2.3. Goal of care discussion DAILY ESTIMATED NEEDS: Needs based on Cardiac, pulmonary/ 51kg abw 25-30 kcals/kg 2645-0930 total kcals 1-1.5 g protein/kg 51-76 g total protein 20-25 mL/kg [id number] total fluid mLs NUTRITION DIAGNOSIS: Swallowing difficulty R/T dysphagia, decreased cognitive fxn as evidenced by MOLDER FEEDER recommends pureed moist texture diet at this time. CURRENT DIET:NPO PO DIET RECOMMENDATIONS: Liberalized REGULAR w/ poor PO (texture per MOLDER FEEDER) ADDITIONAL RECOMMENDATIONS: * Calibrated bedscale wt * Monitor PO intake: refusing meds and foods at this time -> rec nonoral feeds w/ continued refusal of PO if part of POC * LOW NA diet w/ PO intake consistently >50% * 4 oz Ensure TID w/ meals (4oz at this time due to poor acceptance, may increase to 8oz w/ good acceptance) (8) Pneumonia due to COVID-19 virus Assessment & Plan: here appears to be increased left pleural fluid and generalized hazy parenchymal opacity, left greater than right. Heart remains enlarged Impression: Increased left pleural effusion Suspect increasing bilateral left greater than right pulmonary edema versus infiltrates worsening intubated on vent weaned extubated (9) Hypothyroidism Jim Orosco Nov 16, 2020 15:27
--- NOTE | 2020-11-16 16:00 | NUR ---
NURSE NOTES: Dr Dumont with orders to discharge pt to [place] and keep Green catheter ,pt will be under his care.
--- NOTE | 2020-11-16 16:33 | NUR ---
*-*DISCHARGE PLAN*-* PATIENT HAS BEEN ACCEPTED AND WILL BE DISCHARGED TO: [facility] RO[facility] 12.[facility] FOR 6:30PM WITH RT ON DECK
--- NOTE | 2020-11-16 17:08 | NUR ---
NURSE NOTES: Dr. Reyes made aware patient for discharge to [facility]
--- NOTE | 2020-11-16 18:00 | NUR ---
NURSE NOTES: Bed bath given,pt incontinent of diarrhea stools , Rectal tube leaking, sacral excoriation noted,triad cream applied and covered with optifoam.pictures taken and uploaded.
--- NOTE | 2020-11-16 18:30 | NUR ---
NURSE NOTES: Tried to call report x2 to [facility] but nurse Mckenna not available per nurse Pace who answered the phone .Left phone # of [facility] to nurse Pace and told him to tell nurse Mckenna to call back.
--- NOTE | 2020-11-16 19:05 | NUR ---
NURSE HAND-OFF REPORT: Latest Vital Signs: Temperature 98.2 , Pulse 84 , B/P 127 /48 , Respiratory Rate 31 , O2 SAT 95 , Simple Mask, O2 Flow Rate 14.0 . Vital Sign Comment: stable EKG Rhythm: Atrial Fibrillation Rhythm change?: N MD Notified?: - MD Response: Latest Elizabeth Fall Score: 50 Fall Risk: High Risk Safety Measures: Call light Within Reach, Bed Alarm Zone 1, Side Rails Side Rails x3, Bed position Low and Locked. Fall Precautions: Yellow Socks Patient Fall Education Report given to elo Cameron RN..
--- NOTE | 2020-11-16 19:10 | NUR ---
Received report from SERGIO Zimmerman and assumed care of patient. Patient is to be transferring to [facility] this evening. Pt resting in bed in no acute distress.
--- NOTE | 2020-11-16 19:35 | NUR ---
Report called to [facility] (SERGIO Garcia). Awaiting Pickup from [facility].
--- NOTE | 2020-11-16 20:05 | NUR ---
Rt to bedside to NT suction patient and place onto Bipap per nightly orders. Pt lethargic which is typical this time of night from being on the venturi mask all day. Patient appears comfortable on Bipap. RR decreased from 41 to 20 on Bipap settings. O2 sat is 100%. Pt feet were very cold and discolored so Bear Hugger applied to patient to assist with warmth. Assessment completed on patient, see charting for details. Awaiting ambulance to transport patient to [place].
[2020-11-16] MEDS: Dyna-Hex 2% Top Sol 2oz TOPIC SCH (20:30)
--- NOTE | 2020-11-16 21:34 | General Progress Note ---
Subjective ROS Limited/Unobtainable: Yes Allergies: Coded Allergies: No Known Allergies (Unverified , 10/17/20) Objective Last 24 Hour Vital Signs Date Time Temp Pulse Resp B/P (MAP) Pulse Ox O2 Delivery O2 Flow Rate FiO2 11/16/20 21:00 85 25 106/45 (65) 100 11/16/20 20:52 88 11/16/20 20:24 89 27 100 100 11/16/20 20:00 Bi-pap Bi-pap 11/16/20 20:00 97.4 92 32 134/70 (91) 95 11/16/20 20:00 40 11/16/20 19:00 91 34 145/77 (99) 96 11/16/20 19:00 90 Venturi Mask 14.0 55 11/16/20 18:00 84 31 127/48 (74) 95 11/16/20 17:00 97 31 133/55 (81) 97 11/16/20 16:02 98.2 94 31 147/56 (86) 96 11/16/20 16:00 Venturi Mask 14.0 Venturi Mask 14.0 11/16/20 16:00 6.0 35 11/16/20 16:00 107 11/16/20 15:00 91 31 135/47 (76) 96 11/16/20 14:00 91 31 137/55 (82) 94 11/16/20 13:01 91 31 137/55 (82) 94 11/16/20 12:00 92 11/16/20 12:00 6.0 35 11/16/20 12:00 Venturi Mask 14.0 Venturi Mask 14.0 11/16/20 12:00 98.0 79 23 138/56 (83) 96 11/16/20 11:00 91 31 147/65 (92) 97 11/16/20 10:00 92 30 132/80 (97) 97 11/16/20 09:00 94 30 139/72 (94) 97 11/16/20 08:45 95 11/16/20 08:04 98.6 95 23 151/73 (99) 94 11/16/20 08:00 Venturi Mask 14.0 Venturi Mask 14.0 11/16/20 08:00 6.0 35 11/16/20 08:00 100 11/16/20 07:00 91 23 130/57 (81) 96 11/16/20 06:00 85 26 119/65 (83) 96 11/16/20 05:30 80 25 100 30 11/16/20 05:00 87 23 106/53 (70) 100 11/16/20 04:00 Bi-pap Bi-pap 11/16/20 04:00 86 11/16/20 04:00 97.4 85 26 108/50 (69) 100 11/16/20 04:00 40 11/16/20 03:31 85 25 100 40 11/16/20 03:00 85 23 108/48 (68) 100 11/16/20 02:00 83 26 116/49 (71) 99 11/16/20 01:30 77 26 100 40 11/16/20 01:00 87 26 106/44 (64) 100 11/16/20 00:00 40 11/16/20 00:00 76 11/16/20 00:00 98.6 84 24 113/45 (67) 100 11/16/20 00:00 Bi-pap Bi-pap 11/15/20 23:30 82 26 99 40 11/15/20 23:00 76 26 104/51 (68) 99 11/15/20 22:00 84 24 136/70 (92) 100 11/15/20 21:38 89 25 100 40 Intake and Output 11/15/20 11/16/20 19:00 07:00 Intake Total 900 ml 400 ml Output Total 450 ml 385 ml Balance 450 ml 15 ml Free Water 300 ml Tube Feeding 480 ml 400 ml Other 120 ml Output Urine Total 350 ml 235 ml Stool Total 100 ml 150 ml Laboratory Tests 11/16/20 00:27: POC Whole Blood Glucose 105 11/16/20 06:09: POC Whole Blood Glucose 112H 11/16/20 09:25: Sodium Level 147H, Potassium Level 5.2H, Chloride Level 106, Carbon Dioxide Level 38H, Anion Gap 3L, Blood Urea Nitrogen 56H, Creatinine 1.2, Estimat Glomerular Filtration Rate 42.9, Glucose Level 112H, Calcium Level 8.5, Phos phorus Level 4.2, Magnesium Level 2.1, Digoxin Level 2.4H 11/16/20 11:30: White Blood Count 6.2, Red Blood Count 3.47L, Hemoglobin 10.2L, Hematocrit 33.2L , Mean Corpuscular Volume 96, Mean Corpuscular Hemoglobin 29.5, Mean Corpuscular Hemoglobin Concent 30.9L, Red Cell Distribution Width 17.8H, Platelet Count 155, Mean Platelet Volume 9.6, Neutrophils (%) (Auto) 76.7H, Lymphocytes (%) (Auto) 14.6L, Monocytes (%) (Auto) 7.3, Eosinophils (%) (Auto) 1.1, Basophils (%) (A uto) 0.4 11/16/20 12:16: POC Whole Blood Glucose 110H 11/16/20 17:40: POC Whole Blood Glucose 165H Height (Feet): 5 Height (Inches): 0.00 Weight (Pounds): 145 Assessment/Plan Problem List: (1) Anemia ICD Codes: D64.9 - Anemia, unspecified SNOMED: 254102329 (2) Acute kidney injury ICD Codes: N17.9 - Acute kidney failure, unspecified SNOMED: 28547736, 7579882 (3) Atrial fibrillation ICD Codes: I48.91 - Unspecified atrial fibrillation SNOMED: 33964098 (4) Elevated troponin ICD Codes: R77.8 - Other specified abnormalities of plasma proteins SNOMED: 837831968, 678748247, 796138152 (5) Malnutrition ICD Codes: E46 - Unspecified protein-calorie malnutrition SNOMED: 96103259 (6) Pneumonia due to COVID-19 virus ICD Codes: U07.1 - COVID-19; J12.82 - Pneumonia due to coronavirus disease 2019 SNOMED: 223226995083094708 (7) Hypothyroidism ICD Codes: E03.9 - Hypothyroidism, unspecified SNOMED: 96979885 Status: progressing, unchanged Assessment/Plan: pna [facility] [place] if cleared by dr conner on bipap poor prognosis malnutrition a fib resp insuff sepsis Neri Dumont MD Nov 16, 2020 21:34
--- NOTE | 2020-11-16 21:45 | NUR ---
EMS and critical care transport to unit. Gave report to team and assisted in transfer of patient from hospital bed to ambulance [facility]. VS stable upon transfer and are documented in the vital signs flowsheet. Pt remained lethargic during transport but would open eyes to voice which is her baseline. Pt stable and in no acute distress upon exit from the unit at 2200. Discharge packet taken with transport team to [facility].
[2020-11-16] MEDS ORDERED: Tubing IV Secondary IV ONE (21:59)
[2020-11-16] MEDS ORDERED: NS 275ml ONE (21:59)
--- NOTE | 2020-11-17 11:34 | Pulmonology Progress Note ---
Subjective ROS Limited/Unobtainable: Yes Interval Events: Intubated 10/31/20; extubated 11/05/20; BiPAP Constitutional: Denies: fever HEENT: Repors: no symptoms Respiratory: Reports: no symptoms Cardiovascular: Reports: no symptoms Gastrointestinal/Abdominal: Reports: diarrhea Psychiatric: Reports: other Allergies: Coded Allergies: No Known Allergies (Unverified , 10/17/20) All Systems: reviewed and negative except above Objective Last 24 Hour Vital Signs Date Time Temp Pulse Resp B/P (MAP) Pulse Ox O2 Delivery O2 Flow Rate FiO2 11/16/20 21:36 84 23 120/47 (71) 100 11/16/20 21:00 85 25 106/45 (65) 100 11/16/20 20:52 88 11/16/20 20:24 89 27 100 100 11/16/20 20:00 Bi-pap Bi-pap 11/16/20 20:00 97.4 92 32 134/70 (91) 95 11/16/20 20:00 40 11/16/20 19:00 91 34 145/77 (99) 96 11/16/20 19:00 90 Venturi Mask 14.0 55 11/16/20 18:00 84 31 127/48 (74) 95 11/16/20 17:00 97 31 133/55 (81) 97 11/16/20 16:02 98.2 94 31 147/56 (86) 96 11/16/20 16:00 Venturi Mask 14.0 Venturi Mask 14.0 11/16/20 16:00 6.0 35 11/16/20 16:00 107 11/16/20 15:00 91 31 135/47 (76) 96 11/16/20 14:00 91 31 137/55 (82) 94 11/16/20 13:01 91 31 137/55 (82) 94 11/16/20 12:00 92 11/16/20 12:00 6.0 35 11/16/20 12:00 Venturi Mask 14.0 Venturi Mask 14.0 11/16/20 12:00 98.0 79 23 138/56 (83) 96 Intake and Output 11/16/20 11/17/20 19:00 07:00 Intake Total 1520 ml 200 ml Output Total 305 ml 20 ml Balance 1215 ml 180 ml Free Water 200 ml IV Total 760 ml 200 ml Tube Feeding 440 ml 0 ml Other 120 ml Output Urine Total 105 ml 20 ml Stool Total 200 ml General Appearance: no acute distress HEENT: atraumatic Respiratory: lungs clear Cardiovascular: normal rate, regular rhythm Abdomen: soft, non tender, other - s/p PEG Laboratory Tests 11/16/20 12:16: POC Whole Blood Glucose 110H 11/16/20 17:40: POC Whole Blood Glucose 165H Assessment/Plan Assessment/Plan 1. CHF - CXR (11/07) pulmonary vascular congestion and small pleural effusions. - s/p thoracentesis (11/11) 700mL out 2. CAD/previous non-STEMI. 3. residential resident. 4. Bradycardia. 5. Atrial fibrillation. -Started on Eliquis 6. Renal insufficiency. -Nephro following 7. Troponin leak. - Cardio following 8. COVID-19 pneumonia, without fever or leukocytosis - s/p intubated; now extubated 11/06/20 - Still on BiPAP - Sp Cx (11/03) Gram negative bacillus -> now on meropenem per ID - added Levalbuterol 9. Respiratory failure, s/p vent - now extubated 10. 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 UTI, cheryl 12. Dysphagia -s/p PEG (10/23) 13. Hypotension; improved - s/p NS bolus - pressors as needed 14. L pleural effusion; improved - completed Diamox 250 mg q6hr x8 doses -s/p thoracentesis (11/11) 700 mL Noted [facility] [facility]; she can be discharged to [place] on BiPAP 10/01 Doing well off BiPAP during the day and use BiPAP q pm THIS IS A LATE ENTRY DUE TO TECHNICAL DIFFICULTIES. THIS PROGRESS NOTE IS FOR 11/16/20 The care of this patient was discussed with my supervising physician Time spent for this encounter was approximately 31 minutes Tl Pedro Nov 17, 2020 11:34
== END 2020-11-16 22:00 | DRG 207 ==
LOC: EDBD 11:12 → EMR 12:29 → EDBEDREQ 16:02 → 2E 16:17 → ICU 10-25 14:23
PROC: 0DH63UZ Insertion of Feeding Device into Stomach, Percutaneous Approach (ICD-10-PCS; principal; 2020-10-23 13:23)
PROC: 06HM33Z Insertion of Infusion Device into Right Femoral Vein, Percutaneous Approach (ICD-10-PCS; 2020-10-25)
PROC: 05H633Z Insertion of Infusion Device into Left Subclavian Vein, Percutaneous Approach (ICD-10-PCS; 2020-10-30)
PROC: 5A1955Z Respiratory Ventilation, Greater than 96 Consecutive Hours (ICD-10-PCS; 2020-10-31)
PROC: 0BH17EZ Insertion of Endotracheal Airway into Trachea, Via Natural or Artificial Opening (ICD-10-PCS; 2020-10-31)
PROC: 0W9B3ZZ Drainage of Left Pleural Cavity, Percutaneous Approach (ICD-10-PCS; 2020-11-11)
DX: U07.1 COVID-19 (principal); J12.82 Pneumonia due to coronavirus disease 2019; I21.4 Non-ST elevation (NSTEMI) myocardial infarction; J96.01 Acute respiratory failure with hypoxia; J96.02 Acute respiratory failure with hypercapnia; J15.1 Pneumonia due to Pseudomonas; A41.9 Sepsis, unspecified organism; R65.21 Severe sepsis with septic shock; N17.9 Acute kidney failure, unspecified; D68.69 Other thrombophilia; E46 Unspecified protein-calorie malnutrition; J44.0 Chronic obstructive pulmonary disease with (acute) lower respiratory infection; B37.49 Other urogenital candidiasis; D61.818 Other pancytopenia; I82.591 Chronic embolism and thrombosis of other specified deep vein of right lower extremity; J90 Pleural effusion, not elsewhere classified; D64.9 Anemia, unspecified; I48.91 Unspecified atrial fibrillation; E87.5 Hyperkalemia; I25.10 Atherosclerotic heart disease of native coronary artery without angina pectoris; I50.9 Heart failure, unspecified; L89.151 Pressure ulcer of sacral region, stage 1; I25.2 Old myocardial infarction; I11.0 Hypertensive heart disease with heart failure; I35.0 Nonrheumatic aortic (valve) stenosis; E03.9 Hypothyroidism, unspecified; R62.7 Adult failure to thrive; R19.5 Other fecal abnormalities; R13.10 Dysphagia, unspecified; E86.0 Dehydration
CPT/HCPCS: 36415; 71045; 76604; 76700; 76942; 80048; 80053; 80061; 80162; 81001; 82270; 82306; 82550; 82607; 82728; 82746; 82803; 82962; 82977; 83036; 83540; 83550; 83605; 83615; 83735; 83880; 84100; 84300; 84439; 84443; 84481; 84484; 84550; 85007; 85025; 85044; 85610; 85730; 86140; 86850; 86870; 86900; 86901; 86904; 86920; 87070; 87086; 87181; 87205; 93005; 93306; 93970; 93971; 94002; 94003; 94150; 94640; 94660; 96374; 96375; 99291; G0378; J8499